=== PATIENT | male | born 1980 | race African-American/Black ===

== ENCOUNTER 2016-06-08 12:41 | Inpatient (IN) | payer MEDICAID ==
[~2016-06-08] VITALS: Ht 185.4 cm; Wt 97.0 kg
[~2016-06-08 12:41] MED LIST: ALPR1 PO; AMOX875T2 PO; BACL10TA; DILA2TAB2 PO; DOCU100T9 PO; FERR324T4 PO; HYDR10SO PO; LACT PO; NEUR800T PO; OLAN15TA PO; ROXI30TA14 PO; SOMA350T PO; [UNRECOGNIZED DRUG - CODE] PO
[2016-06-08 12:45] VITALS: BP 131/68; PULSE 72; RESP 18; TEMP 98.5; O2SAT 100
[2016-06-08] MEDS ORDERED: HYDR-3583 PO (13:36)
[2016-06-08] MEDS ORDERED: FERR1TAB36 PO (13:36)
[2016-06-08] MEDS ORDERED: XANA1TAB2 PO (13:36)
[2016-06-08] MEDS ORDERED: OLAN15TA PO (13:36)
[2016-06-08] MEDS ORDERED: SOMA350T PO (13:36)
[2016-06-08] MEDS ORDERED: NEUR800T PO (13:36)
[2016-06-08] MEDS ORDERED: AMOX875T2 PO (13:37)
[2016-06-08] MEDS ORDERED: DILA2TAB2 PO (13:37)
[2016-06-08] MEDS ORDERED: ROXI30TA14 PO (13:37)
[2016-06-08] MEDS ORDERED: PIPERACIL-TAZO 4.5 GM PREMIX 100 ML IV STA (13:41)
[2016-06-08] MEDS ORDERED: SODIUM CHLOR 0.9% 1000 ML INJ 1,000 ML IV ONE ×2 (13:45)
[2016-06-08] MEDS ORDERED: ONDANSETRON HCL 4 MG/2 ML VIAL IV ONE (13:45)
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
[2016-06-08 15:04] LABS: AUTOMATED NEUTROPHIL # 8.2 TH/MM3 (1.8-7.7); BASOPHIL % 0.3 % (0.0-2.0); EOSINOPHIL # 0.1 TH/MM3 (0-0.4); EOSINOPHIL % 1.1 % (0.0-4.0); HEMATOCRIT 37.3 % (39.0-51.0); LYMPH % 20.9 % (9.0-44.0); LYMPHOCYTE # 2.4 TH/MM3 (1.0-4.8); MEAN CELL VOLUME 79.3 FL (80.0-100.0); MEAN CORPUSCULAR HEMOGLOBIN 24.7 PG (27.0-34.0); MEAN CORPUSCULAR HGB CONC 31.2 % (32.0-36.0); MONO % 6.4 % (0.0-8.0); NEUT % 71.3 % (16.0-70.0); PLATELET COUNT 686 TH/MM3 (150-450); RED BLOOD COUNT 4.71 MIL/MM3 (4.50-5.90); RED CELL DISTRIBUTION WIDTH 18.4 % (11.6-17.2); WHITE BLOOD COUNT 11.6 TH/MM3 (4.0-11.0)
[2016-06-08 15:11] LABS: HEMO FLAGS AUTO DIFF
--- NOTE | 2016-06-08 15:13 | RADRPT ---
EXAM DATE/TIME: 06/08/2016 14:46 [facility] COMPARISON: CHEST SINGLE AP, October 23, 2015, 8:00. INDICATIONS : Fever, Chest pain MEDICAL HISTORY : None. SURGICAL HISTORY : None. ENCOUNTER: Initial ACUITY: 1 day PAIN SCORE: 4/10 LOCATION: chest FINDINGS: Portable AP view of the chest demonstrates a normal-sized cardiac silhouette. No effusion, consolidat ion, or pneumothorax is visualized. The bones and soft tissues demonstrate no acute abnormality. CONCLUSION: No acute cardiopulmonary abnormality is identified. Luis Felipe Guerra MD on June 08, 2016 at 15:09 Board Certified Radiologist. This report was verified electronically.
--- NOTE | 2016-06-08 15:17 | PD ---
Physical Exam Date Seen by Provider: Jun 08, 2016 Time Seen by Provider: 15:12 Narrative 35-year-old paraplegic male presents to the ED for evaluation of 9/10 aching abdominal pain, pain by nausea and vomiting. He shouldn't states that he noticed decreased colostomy output as well as dark urine over the last few days. He also complains of chronic sacral wounds. He states that he does not have home health or wound care. Followed by Dr. Parikh, last visit in April. GENERAL: Well-nourished paraplegic black male in no acute distress. SKIN: Warm and dry. There is a large, foul-smelling sacral decubitus ulcer HEAD: Normocephalic. EYES: No scleral icterus. No injection or drainage. NECK: Supple, trachea midline. No JVD or lymphadenopathy. CARDIOVASCULAR: Regular rate and rhythm without murmurs, gallops, or rubs. 2+ DP and radial pulses bilaterally. RESPIRATORY: Breath sounds clear and equal bilaterally. No accessory muscle use. GASTROINTESTINAL: Abdomen mildly distended. Tender to palpation in the epigastric area. There is a colostomy with brown stool in the bag. There is a urostomy in the suprapubic region with a small amount of leaking urine. MUSCULOSKELETAL: No cyanosis, or edema. Muscle wasting of the lower extremities. BACK: Nontender without obvious deformity. No CVA tenderness. Data Data Last Documented VS Vital Signs Date Time Temp Pulse Resp B/P Pulse Ox O2 Delivery O2 Flow Rate FiO2 06/08/16 17:47 63 12 118/57 97 Room Air 06/08/16 12:45 98.5 Orders Electrocardiogram (06/08/16 13:41) Complete Blood Count With Diff (06/08/16 13:41) Comprehensive Metabolic Panel (06/08/16 13:41) Lactic Acid Sepsis Protocol (06/08/16 13:41) Magnesium (Mg) (06/08/16 13:41) Urinalysis - C+S If Indicated (06/08/16 13:41) Blood Culture (06/08/16 13:41) Wound Culture And Gram Stain (06/08/16 13:41) Chest, Single Ap (06/08/16 13:41) Blood Glucose (06/08/16 13:41) Ecg Monitoring (06/08/16 13:41) Iv Access Insert/Monitor (06/08/16 13:41) Oximetry (06/08/16 13:41) Oxygen Administration (06/08/16 13:41) Ondansetron Inj (Zofran Inj) (06/08/16 13:45) Ct Abd/Pel W Iv Contrast(Rout) (06/08/16 13:41) Piperacil-Tazo 4.5 Gm Premix (Zosyn 4.5 (06/08/16 13:41) Sodium Chlor 0.9% 1000 Ml Inj (Ns 1000 M (06/08/16 13:45) Sodium Chlor 0.9% 1000 Ml Inj (Ns 1000 M (06/08/16 13:45) Urinary Catheter Insert/Apply (06/08/16 13:45) Consult Vascular Access Team (06/08/16 ) Vascular Poc Ultrasound (06/08/16 ) Hydromorphone Pf Inj (Dilaudid Pf Inj) (06/08/16 15:30) Consult Vascular Access Team (06/08/16 ) Vascular Poc Ultrasound (06/08/16 ) Westergren Sedimentation Rate (06/08/16 17:54) Urine Culture (06/08/16 17:45) Levofloxacin 750 Mg Premix Inj (Levaquin (06/08/16 19:00) Admit Order (Ed Use Only) (06/08/16 19:42) Labs Laboratory Tests Test 06/08/16 06/08/16 06/08/16 14:40 16:25 17:45 White Blood Count 11.6 TH/MM3 Red Blood Count 4.71 MIL/MM3 Hemoglobin 11.6 GM/DL Hematocrit 37.3 % Mean Corpuscular Volume 79.3 FL Mean Corpuscular Hemoglobin 24.7 PG Mean Corpuscular Hemoglobin 31.2 % Concent Red Cell Distribution Width 18.4 % Platelet Count 686 TH/MM3 Mean Platelet Volume 6.7 FL Neutrophils (%) (Auto) 71.3 % Lymphocytes (%) (Auto) 20.9 % Monocytes (%) (Auto) 6.4 % Eosinophils (%) (Auto) 1.1 % Basophils (%) (Auto) 0.3 % Neutrophils # (Auto) 8.2 TH/MM3 Lymphocytes # (Auto) 2.4 TH/MM3 Monocytes # (Auto) 0.7 TH/MM3 Eosinophils # (Auto) 0.1 TH/MM3 Basophils # (Auto) 0.0 TH/MM3 CBC Comment AUTO DIFF Differential Comment AUTO DIFF CONFIRMED Erythrocyte Sedimentation Rate 15 mm/hr Lactic Acid Level 1.2 mmol/L Sodium Level 141 MEQ/L Potassium Level 3.7 MEQ/L Chloride Level 103 MEQ/L Carbon Dioxide Level 32.2 MEQ/L Anion Gap 6 MEQ/L Blood Urea Nitrogen 9 MG/DL Creatinine 0.66 MG/DL Estimat Glomerular Filtration 165 ML/MIN Rate Random Glucose 84 MG/DL Calcium Level 8.8 MG/DL Magnesium Level 2.4 MG/DL Total Bilirubin 0.2 MG/DL Aspartate Amino Transf 20 U/L (AST/SGOT) Alanine Aminotransferase 14 U/L (ALT/SGPT) Alkaline Phosphatase 143 U/L Total Protein 9.1 GM/DL Albumin 3.1 GM/DL Urine Color YELLOW Urine Turbidity CLOUDY Urine pH 8.0 Urine Specific [place] 1.027 Urine Protein 100 mg/dL Urine Glucose (UA) NEG mg/dL Urine Ketones TRACE mg/dL Urine Occult Blood MOD Urine Nitrite NEG Urine Bilirubin NEG Urine Urobilinogen LESS THAN 2.0 MG/DL Urine Leukocyte Esterase LARGE Urine RBC /hpf Urine WBC /hpf Urine Squamous Epithelial 2 /hpf Cells Microscopic Urinalysis Comment CATH-CULTURE IND MDM Supervised Visit with EWA: No Interpretation(s) EKG rate 65, sinus rhythm. TN interval 172 ms. QRS 94 ms. QTc 42 ms. Normal axis. No ST elevations. Reviewed by Dr. Suazo. Differential Diagnosis Bowel obstruction versus paralytic ileus versus chronic sacral wounds versus sepsis versus UTI versus other Narrative Course I assumed care of this patient from PHILLIP John. Please see her note for full details of this patient's presentation. Briefly this is a 35-year-old paraplegic male who presents to the ED with complaint of 9/10 aching abdominal pain, nausea and vomiting and evaluation of chronic sacral wounds. Vitals reviewed and are within normal limits. Physical exam reveals a nontoxic- appearing black male in no acute distress. There is a foul odor emanating from his large sacral decubitus. Chest is CTAB. The abdomen is mildly distended and tender in the epigastric region. There is a colostomy and suprapubic catheter in place. Patient is followed by Dr. Small. Patient has been ordered Zosyn and 2 L of normal saline. Peterson catheter inserted. Blood cultures and wound cultures obtained. Vascular access team consulted for IV placement. When I assumed care of this patient the following labs were pending: EKG: Rate 65, sinus rhythm. No ischemic changes. CBC: WBC 11.6. Hgb 11.6. HCT 37.3 CMP: Unremarkable Lactic acid: 1.2 ESR: 15 Magnesium: 2.4 UA: Cloudy with large leukocyte esterase and innumerable WBC and RBCs. Chest x-ray: No acute cardiopulmonary abnormality visualized per radiology read. Glucose: 95 CT abdomen and pelvis: No acute findings. Patient was administered 1 mg IV Lortab. 1 L of fluids was infused before the patient's IV blew. Additionally, the lab states that they're unable to locate the chemistries tube. IV team was called to insert another line. CT was delayed secondary to missing chemistries. UA shows large leukocyte esterase, innumerable WBCs and RBCs. IV Levaquin ordered. Given this patient's large foul-smelling decubitus ulcer with purulent drainage will admit to the medicine service for wound care and further evaluation. Call placed to Dr. Burr who agrees to accept this patient for observation. Please see medicine notes for disposition. Diagnosis Primary Impression: Pressure ulcer stage IV Additional Impression: UTI (urinary tract infection) Qualified Code: T83.510A - Urinary tract infection associated with cystostomy catheter, initial encounter Belinda Argueta Jun 08, 2016 15:16
[2016-06-08] MEDS ORDERED: HYDROmorphone HCL PF 1 MG/ML VIAL IV PUSH ONE (15:30)
[2016-06-08 15:47] LABS: SCAN/DIFF AUTO DIFF CONFIRMED
[2016-06-08 17:47] VITALS: BP 118/57; PULSE 63; RESP 12; O2SAT 97
[2016-06-08 18:16] LABS: ALT (GPT) 14 U/L (12-78); AST (GOT) 20 U/L (15-37); BICARBONATE 32.2 MEQ/L (21.0-32.0); BLOOD UREA NITROGEN 9 MG/DL (7-18); GLOMERULAR FILTRATION RATE 165 ML/MIN (>89); MAGNESIUM 2.4 MG/DL (1.5-2.5)
[2016-06-08 18:24] LABS: BLOOD, URINE MOD (NEG); GLUCOSE,URINE NEG (NEG); KETONE, URINE TRACE mg/dL (NEG); NITRITE,URINE NEG (NEG); SQUAMOUS EPITHELIAL CELL URINE 2 /hpf (0-5); URINE COLOR YELLOW (YELLW/STRAW)
[2016-06-08 18:26] LABS: COMMENT (UR) CATH-CULTURE IND; CULTURE IF INDICATED CATH CULTURE IND
[2016-06-08] MEDS ORDERED: IOHEXOL 350 MG/ML 10 ML VIAL (for RAD DIAG) IV ONE (18:40)
[2016-06-08 18:49] LABS: ANION GAP 6 MEQ/L (5-15); CHLORIDE 103 MEQ/L (98-107); POTASSIUM 3.7 MEQ/L (3.5-5.1); SODIUM (NA) 141 MEQ/L (136-145)
[2016-06-08 18:56] LABS: ALKALINE PHOSPHATASE 143 U/L (45-117); TOTAL BILIRUBIN ADULT 0.2 MG/DL (0.2-1.0)
[2016-06-08] MEDS ORDERED: LEVOFLOXACIN 750 MG PREMIX INJ 150 ML IV ONE (19:00)
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
--- NOTE | 2016-06-08 19:56 | HHI.HP ---
HPI Service [facility] Primary Care Physician No Primary Care Physician Admission Diagnosis urinary tract infection, stage V sacral decubitus ulcer Diagnoses: (1) Sacral decubitus ulcer Diagnosis: Principal (2) UTI (urinary tract infection) Diagnosis: Principal (3) Paraplegia Diagnosis: Principal (4) Neurogenic bladder Diagnosis: Principal Travel History International Travel<30 Days: No Contact w/Intl Traveler <30 Da: No Traveled to Known Affected Are: No History of Present Illness This is a 35-year-old male with PMH of Anxiety, Paraplegia, Neurogenic Bladder s /p Suprapubic Cath, Chronic UTI and Chronic Sacral Decubitus Ulcer who came into the ER for evaluation of sacral wound. Recent admit 05/02-05/10 for Sacral Decubitus Wound, s/p eval by ID, treated w/ IV Zosyn and Gent Bladder Irrigation for E. Coli/Proteus UTI. States he was discharged w/ Home Health, however has been unable to set anything up. [facility] PCP trying to make arrangements as well, but has been unsuccessful. Referred to ER by PCP for foul -smelling drainage from Decubitus. On arrival, BP 118/57, HR 63, O2 sat 97% on RA, Afebrile. WBC 11.6. Chemistry at baseline. U/a positive for UTI. Suprapubic Cath changed in ER. S/p IV Levaquin in ER. On exam, pt w/ large, foul-smelling sacral decubitus ulcer w/ purulent drainage. Blood/Wound Cultures sent in ER. Review of Systems Other ROS: 14 point review of systems otherwise negative. Past Family Social History Past Medical History PMH: Anxiety, Paraplegia, Neurogenic Bladder s/p Suprapubic Cath, Chronic UTI and Chronic Sacral Decubitus Ulcer Past Surgical History PAST SURGICAL HISTORY: Colostomy, Suprapubic Catheter Allergies: Coded Allergies: Morphine (Verified Allergy, Severe, HIVES, 05/16/16) Vancomycin (Verified Adverse Reaction, Mild, HIVES, 05/16/16) ONLY WHEN INFUSED TOO QUICKLY *MDRO Multi-Drug Resistant Organism (Verified Adverse Reaction, Unknown, 05/16/16) MRSA 2005, 2007, 2007, 2009. MDR-Acinetobacter Baumannii skin wound 05/2015 MDR-Acinetobacter Baumannii scrotum wound 08/2015 Family History PAST FAMILY HISTORY: Reviewed. No h/o DM or CAD Social History PAST SOCIAL HISTORY: Occasional alcohol. Negative for tobacco. Smokes Marijuana. Physical Exam Vital Signs Vital Signs Date Time Temp Pulse Resp B/P Pulse Ox O2 Delivery O2 Flow Rate FiO2 06/08/16 17:47 63 12 118/57 97 Room Air 06/08/16 12:48 18 06/08/16 12:45 98.5 72 18 131/68 100 Physical Exam PE: GENERAL: Pleasant young black male in no acute distress. HEENT: PERRLA, EOMI. No scleral icterus or conjunctival pallor. No lid lag or facial droop. CARDIOVASCULAR: Regular rate and rhythm. No obvious murmurs to auscultation. No chest tenderness to palpation. RESPIRATORY: No obvious rhonchi or wheezing. Clear to auscultation. Breath sounds equal bilaterally. GASTROINTESTINAL: Abdomen soft, non-tender, nondistended. BS normal. Colostomy in place, pink, no signs of infection. Suprapubic cath in place, urine dark/ cloudy. MUSCULOSKELETAL: Extremities without clubbing, cyanosis, or edema. No obvious deformities. NEUROLOGICAL: Awake, alert and oriented x4. Paraplegia. No new focal neurologic deficits. Laboratory Laboratory Tests Test 06/08/16 06/08/16 06/08/16 14:40 16:25 17:45 White Blood Count 11.6 Red Blood Count 4.71 Hemoglobin 11.6 Hematocrit 37.3 Mean Corpuscular Volume 79.3 Mean Corpuscular Hemoglobin 24.7 Mean Corpuscular Hemoglobin 31.2 Concent Red Cell Distribution Width 18.4 Platelet Count 686 Mean Platelet Volume 6.7 Neutrophils (%) (Auto) 71.3 Lymphocytes (%) (Auto) 20.9 Monocytes (%) (Auto) 6.4 Eosinophils (%) (Auto) 1.1 Basophils (%) (Auto) 0.3 Neutrophils # (Auto) 8.2 Lymphocytes # (Auto) 2.4 Monocytes # (Auto) 0.7 Eosinophils # (Auto) 0.1 Basophils # (Auto) 0.0 CBC Comment AUTO DIFF Differential Comment AUTO DIFF CONFIRMED Erythrocyte Sedimentation Rate 15 Lactic Acid Level 1.2 Sodium Level 141 Potassium Level 3.7 Chloride Level 103 Carbon Dioxide Level 32.2 Anion Gap 6 Blood Urea Nitrogen 9 Creatinine 0.66 Estimat Glomerular Filtration 165 Rate Random Glucose 84 Calcium Level 8.8 Magnesium Level 2.4 Total Bilirubin 0.2 Aspartate Amino Transf 20 (AST/SGOT) Alanine Aminotransferase 14 (ALT/SGPT) Alkaline Phosphatase 143 Total Protein 9.1 Albumin 3.1 Urine Color YELLOW Urine Turbidity CLOUDY Urine pH 8.0 Urine Specific [place] 1.027 Urine Protein 100 Urine Glucose (UA) NEG Urine Ketones TRACE Urine Occult Blood MOD Urine Nitrite NEG Urine Bilirubin NEG Urine Urobilinogen LESS THAN 2.0 Urine Leukocyte Esterase LARGE Urine RBC Urine WBC Urine Squamous Epithelial 2 Cells Microscopic Urinalysis Comment CATH-CULTURE IND Date/Time Procedure Status Source Growth 06/08/16 17:45 Urine Culture Received Urine Catheterized Urine Pending 06/08/16 15:25 Gram Stain - Final Resulted Wound Other 06/08/16 15:25 Wound Culture Resulted Wound Other Pending 06/08/16 14:40 Aerobic Blood Culture Received Blood Peripheral Pending 06/08/16 14:40 Anaerobic Blood Culture Received Blood Peripheral Pending Result Diagram: 06/08/16 1440 06/08/16 1625 Assessment and Plan Problem List: (1) Decubitus ulcer ICD Code: L89.90 Status: Chronic (2) UTI (urinary tract infection) ICD Code: N39.0 Status: Acute (3) Neurogenic bladder ICD Code: N31.9 Status: Chronic (4) Paraplegia ICD Code: G82.20 Status: Chronic Assessment and Plan A/P: 1. Decubitus Ulcer: Chronic Sacral Decubitus Ulcer. Present at time of admission. Recent admit 05/02-05/10 for same, s/p eval by ID and IV Abx, arrangements made for Home Health at time of d/c however pt reports difficulty obtaining care. Now w/ foul-smelling discharge, referred to ER by PCP for eval. Afebrile. WBC 11.6. S/p Blood/Wound Cultures in ER. Will follow up cultures. S/p IV Levaquin for UTI. Allergy to Vanc, will give Clinda. ID eval as needed. 2. UTI: U/a w/ UTI. H/o chronic UTI due to neurogenic bladder w/ indwelling cath. S/p IV Levaquin in ER, will continue w/ IV Abx. Recent admit 05/02 w/ E. Coli and Proteus UTI s/p tx w/ Gent Bladder Irrigation. 3. Neurogenic Bladder: secondary to Paraplegia. Suprapubic Cath exchanged in ER upon arrival. 4. Paraplegia: At baseline. Resume home medications. 5. DVT Prophylaxis: SCD/Teds. 6. Social work for d/c planning as needed. 7. Case discussed w/ ER physician at length. Problem Qualifiers (1) UTI (urinary tract infection): Qualified Code: T83.510A - Urinary tract infection associated with cystostomy catheter, initial encounter Jahaira Burr MD Jun 08, 2016 19:56
[2016-06-08 20:00] VITALS: BP 116/62; PULSE 66; RESP 16; O2SAT 98
[2016-06-08] MEDS ORDERED: BISACODYL 10 MG SUPP PR PRN (20:00)
[2016-06-08] MEDS: SODIUM CHLOR 0.9% 1000 ML INJ 1,000 ML IV SCH (20:39)
[2016-06-08] MEDS: SODIUM CHLORIDE 0.9% FLUSH 5 ML FLUSH FLUSH SCH (20:40)
[2016-06-08] MEDS: HYDROmorphone HCL PF 1 MG/ML VIAL IV PRN (20:40)
[2016-06-08] MEDS: CLINDAMYCIN INJ 900 MG in SODIUM CHLORIDE 0.9% INJ 100 ML IV SCH (22:21)
[2016-06-09 00:29] VITALS: BP 120/62; PULSE 68; RESP 20; TEMP 98.2; O2SAT 96
[2016-06-09] MEDS: SODIUM CHLOR 0.9% 1000 ML INJ 1,000 ML IV SCH ×3 (04:07→20:21)
[2016-06-09] MEDS: CLINDAMYCIN INJ 900 MG in SODIUM CHLORIDE 0.9% INJ 100 ML IV SCH (04:07)
[2016-06-09] MEDS: HYDROmorphone HCL PF 1 MG/ML VIAL IV PRN (04:15)
[2016-06-09 04:20] VITALS: BP 102/50; PULSE 60; RESP 19; TEMP 97.9; O2SAT 99
[2016-06-09 07:15] VITALS: BP 113/59; PULSE 62; RESP 16; TEMP 97.7; O2SAT 100
--- NOTE | 2016-06-09 08:29 | HHI.PR ---
Subjective Remarks Follow-up for sacral wound. Today the patient complains of epigastric abdominal discomfort. He denies any nausea or vomiting currently and wants to eat. He states that he's been having decreased output from his ostomy for 3 or 4 days and believes he is constipated. His suprapubic catheter was exchanged in the ED last night, but the wrong size was used, and he is having some leaking. He states she's been having subjective chills. He complains of pain in his chronic wounds. He wants to go to a rehabilitation facility, states his PCP, Dr. Small, referred him to the hospital in hopes that he could be placed. Objective Vitals Vital Signs Date Time Temp Pulse Resp B/P Pulse Ox O2 Delivery O2 Flow Rate FiO2 06/09/16 07:15 97.7 62 16 113/59 100 06/09/16 04:20 97.9 60 19 102/50 99 06/09/16 00:29 98.2 68 20 120/62 96 06/08/16 20:00 66 16 116/62 98 Room Air 06/08/16 17:47 63 12 118/57 97 Room Air 06/08/16 12:48 18 06/08/16 12:45 98.5 72 18 131/68 100 Result Diagram: 06/08/16 1440 06/08/16 1625 Imaging Last Impressions Chest X-Ray 06/08/16 1341 Signed Impressions: Service Date/Time: May 14:46 - CONCLUSION: No acute cardiopulmonary abnormality is identified. Luis Felipe Guerra MD Abdomen/Pelvis CT 06/08/16 1341 Signed Impressions: Service Date/Time: May 18:40 - CONCLUSION: 1. The balloon portion of the suprapubic catheter is inside the prosthetic urethra. 2. Probable hepatic hemangioma. Ryanne Maya MD Objective Remarks GENERAL: Well-developed well-nourished. In no acute distress. SKIN: Warm and dry. Sacral wounds dressed. Superficial ulcerations on the heels. HEENT: Normocephalic. Pupils equal and round. Mucous membranes pink and moist. CARDIOVASCULAR: Regular rate and rhythm. No murmur appreciated. RESPIRATORY: No accessory muscle use. Clear to auscultation. Breath sounds equal bilaterally. GASTROINTESTINAL: Abdomen soft, mild epigastric TTP, nondistended. Bowel sounds x4. Ostomy in place. Suprapubic catheter in place. MUSCULOSKELETAL: No obvious deformities. No clubbing or cyanosis. No edema. NEUROLOGICAL: Awake and alert. Paraplegia. Normal speech. PSYCHIATRIC: Appropriate mood and affect; insight and judgment normal. A/P Problem List: (1) Decubitus ulcer ICD Code: L89.90 Status: Chronic (2) UTI (urinary tract infection) ICD Code: N39.0 Status: Acute (3) Neurogenic bladder ICD Code: N31.9 Status: Chronic (4) Paraplegia ICD Code: G82.20 Status: Chronic (5) Abdominal pain ICD Code: R10.9 Status: Acute Assessment and Plan 35-year-old male with PMH of Anxiety, Paraplegia, Neurogenic Bladder s/p Suprapubic Cath, Chronic UTI and Chronic Sacral Decubitus Ulcer who presented for evaluation of sacral wound Decubitus Ulcer: Chronic Sacral Decubitus Ulcer. Present at time of admission. Recent admit 05/02-05/10 for same, s/p eval by ID and IV Abx, arrangements made for Home Health at time of d/c however pt reports difficulty obtaining care. Now w/ foul-smelling discharge, referred to ER by PCP for eval. Afebrile. WBC 11.6. S/p Blood/Wound Cultures in ER. Will follow up cultures. Allergy to Vanc, on IV Clinda. ID consulted. Wound care nurse consulted. On oral Dilaudid at home for pain control, continue. Abnormal UA: UA with evidence of possible UTI. H/o chronic UTI due to neurogenic bladder w/ indwelling cath. Previous urine culture with Escherichia coli and Proteus, change IV Levaquin to ceftriaxone based on sensitivities. Follow-up urine culture. Abdominal pain: Abdominal x-ray with nonspecific, nonobstructive bowel gas pattern. Abdominal CT with no acute findings. Possibly secondary to constipation, start bowel regimen and attempt to minimize narcotics. Protonix. Neurogenic Bladder: Secondary to Paraplegia. Suprapubic Cath exchanged in ER upon arrival, however incorrect catheter size, place 22 [address]. Paraplegia: At baseline. Continue home medications. Trapeze setup. PT eval. DVT Prophylaxis: SCD/Teds. Discharge Planning Disposition pending clinical course. Case management consulted for assistance with discharge disposition. Attending Statement Attestation Patient seen and examined with CORINNA Haines. The exam, history, and the medical decision-making described in the above note were completed with the assistance of the dictating practitioner. I attest that I had a [id number] encounter with the patient on the same day, and personally performed all of the history, exam, or medical decision making. Discussed case with him thoroughly after seeing the patient, reviewed and agreed with the plan. Please see addendum in History, Physical examination and Plan. See below for any errata/ additional input: Denies any suprapubic pain, a febrile. Patient says that he is willing to go to SNF, he says that he takes care of the wound by himself with what he could. Afebrile. Not in distress Clear breath sounds Regular rate and rhythm Paraplegic One of the sacrum wound was opened, the worse one, good granulation tissue, non- foul-smelling, does not appear infected. Per infectious disease and wound care, noninfected. Right heel wound swab growing MRSA, per ID, does not look infected, no further treatment. This is a superficial swab. Urine culture growing gram-negative rods, follow-up urine culture and sensitivity, discharged once on oral antibiotics. We'll try to discharge to SNF versus home with home health care. Problem Qualifiers (1) UTI (urinary tract infection): Qualified Code: T83.510A - Urinary tract infection associated with cystostomy catheter, initial encounter (2) Abdominal pain: Qualified Code: R10.13 - Epigastric pain Cam Howard Jun 09, 2016 08:29 Wil Curtis MD Jun 09, 2016 15:41
[2016-06-09] MEDS: DOCUSATE SODIUM 100 MG CAP PO SCH ×2 (09:00→20:21)
[2016-06-09] MEDS: SENNOSIDES 8.6 MG TAB PO SCH (09:00)
[2016-06-09] MEDS ORDERED: cefTRIAXone INJ 1,000 MG in SODIUM CHLORIDE 0.9% INJ 100 ML IV SCH (09:00)
[2016-06-09] MEDS: SODIUM CHLORIDE 0.9% FLUSH 5 ML FLUSH FLUSH SCH ×2 (09:00→20:19)
[2016-06-09] MEDS: PANTOPRAZOLE SOD 40 MG DELAYED RELEASE TAB PO SCH (09:51)
[2016-06-09] MEDS: GABAPENTIN 400 MG CAP PO SCH ×3 (09:51→17:33)
[2016-06-09] MEDS: FERROUS SULFATE 325 MG (65 MG ELEMENTAL IRON) TAB PO SCH ×2 (09:51→17:33)
[2016-06-09] MEDS: HYDROmorphone HCL 4 MG TAB PO PRN (09:53)
[2016-06-09 12:21] VITALS: BP 123/56; PULSE 57; RESP 19; TEMP 96.6; O2SAT 100
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
[2016-06-09 16:26] VITALS: BP 116/60; PULSE 80; RESP 16; TEMP 98.6; O2SAT 100
[2016-06-09] MEDS: PIPERACIL-TAZO 3.375 GM PREMIX 50 ML IV SCH ×2 (17:33→22:50)
[2016-06-09] MEDS: SODIUM CHLORIDE 0.9% FLUSH 5 ML FLUSH FLUSH PRN (17:34)
--- NOTE | 2016-06-09 19:01 | EKG ---
Date Performed: 06/08/2016 Time Performed: 17:30:18 PTAGE: 35 years EKG: Sinus rhythm NONSPECIFIC ST & T-WAVE ABNORMALITY Compared to previous tracing, the T wave changes have improved s ignificantly and the heart rate is slower BORDERLINE ECG PREVIOUS TRACING : 01/11/2015 01.09 DOCTOR: Mayur Castillo Interpretating Date/Time 06/09/2016 19:00:07
[2016-06-09 19:58] VITALS: BP 119/73; PULSE 76; RESP 18; TEMP 97.6; O2SAT 97
[2016-06-09 21:39] LABS: AUTOMATED NEUTROPHIL # 3.8 TH/MM3 (1.8-7.7); BASOPHIL # 0.1 TH/MM3 (0-0.2); BASOPHIL % 1.6 % (0.0-2.0); EOSINOPHIL # 0.2 TH/MM3 (0-0.4); EOSINOPHIL % 3.1 % (0.0-4.0); HEMATOCRIT 28.9 % (39.0-51.0); HEMO FLAGS DIFF FINAL; LYMPH % 29.7 % (9.0-44.0); LYMPHOCYTE # 1.9 TH/MM3 (1.0-4.8); MEAN CELL VOLUME 79.3 FL (80.0-100.0); MEAN CORPUSCULAR HEMOGLOBIN 25.8 PG (27.0-34.0); MEAN CORPUSCULAR HGB CONC 32.5 % (32.0-36.0); NEUT % 58.6 % (16.0-70.0); PLATELET COUNT 487 TH/MM3 (150-450); RED BLOOD COUNT 3.65 MIL/MM3 (4.50-5.90); RED CELL DISTRIBUTION WIDTH 18.3 % (11.6-17.2); WHITE BLOOD COUNT 6.5 TH/MM3 (4.0-11.0)
[2016-06-09 21:54] LABS: ANION GAP 6 MEQ/L (5-15); AST (GOT) 6 U/L (15-37); BICARBONATE 29.9 MEQ/L (21.0-32.0); BLOOD UREA NITROGEN 7 MG/DL (7-18); CHLORIDE 107 MEQ/L (98-107); GLOMERULAR FILTRATION RATE 147 ML/MIN (>89); POTASSIUM 3.4 MEQ/L (3.5-5.1); SODIUM (NA) 143 MEQ/L (136-145)
[2016-06-09 21:59] LABS: ALKALINE PHOSPHATASE 113 U/L (45-117); ALT (GPT) 11 U/L (12-78); TOTAL BILIRUBIN ADULT 0.1 MG/DL (0.2-1.0)
[2016-06-10 01:04] VITALS: BP 102/50; PULSE 57; RESP 18; TEMP 98.1; O2SAT 97
[2016-06-10] MEDS: HYDROmorphone HCL 4 MG TAB PO PRN ×3 (02:30→20:04)
[2016-06-10] MEDS: PIPERACIL-TAZO 3.375 GM PREMIX 50 ML IV SCH ×2 (04:34→09:37)
[2016-06-10 05:09] VITALS: BP 103/59; PULSE 84; RESP 18; TEMP 97.8; O2SAT 98
[2016-06-10 07:47] VITALS: BP 110/56; PULSE 79; RESP 16; TEMP 98
[2016-06-10] MEDS: FERROUS SULFATE 325 MG (65 MG ELEMENTAL IRON) TAB PO SCH ×2 (09:37→17:12)
[2016-06-10] MEDS: SENNOSIDES 8.6 MG TAB PO SCH (09:37)
[2016-06-10] MEDS: SODIUM CHLORIDE 0.9% FLUSH 5 ML FLUSH FLUSH SCH ×2 (09:38→20:03)
[2016-06-10] MEDS: PANTOPRAZOLE SOD 40 MG DELAYED RELEASE TAB PO SCH (09:38)
[2016-06-10] MEDS: DOCUSATE SODIUM 100 MG CAP PO SCH (09:38)
[2016-06-10] MEDS: SODIUM HYPOCHLORITE 0.125% 500 ML BTL TOPICAL SCH (09:38)
[2016-06-10] MEDS: GABAPENTIN 400 MG CAP PO SCH ×3 (09:38→17:12)
[2016-06-10] MEDS: SODIUM CHLOR 0.9% 1000 ML INJ 1,000 ML IV SCH (10:22)
--- NOTE | 2016-06-10 10:58 | HHI.PR ---
Subjective Remarks Follow-up for UTI. Suprapubic catheter was changed yesterday to the correct size. The patient continues to complain of epigastric abdominal discomfort. Has been tolerating diet. He states he still having occasional chills, but they have improved. Afebrile. He requests IV Dilaudid, because "it works faster". States he takes oral Dilaudid 3 mg at home. He understands that the oral pain control last longer and he cannot have IV pain medicine at [facility]. Good output from ostomy. Objective Vitals Vital Signs Date Time Temp Pulse Resp B/P Pulse Ox O2 Delivery O2 Flow Rate FiO2 06/10/16 07:47 98.0 79 16 110/56 06/10/16 05:09 97.8 84 18 103/59 98 06/10/16 01:04 98.1 57 18 102/50 97 06/09/16 19:58 97.6 76 18 119/73 97 06/09/16 16:26 98.6 80 16 116/60 100 06/09/16 12:21 96.6 57 19 123/56 100 I/O 06/09/16 06/09/16 06/09/16 06/10/16 06/10/16 06/10/16 07:00 15:00 23:00 07:00 15:00 23:00 Intake Total 2430 ml Output Total 1650 ml Balance 780 ml Intake Oral 1180 ml IV Total 1250 ml Output Urine Total 1650 ml Result Diagram: 06/09/16210406/09/162104 Imaging Last Impressions Chest X-Ray 06/08/16 1341 Signed Impressions: Service Date/Time: May 14:46 - CONCLUSION: No acute cardiopulmonary abnormality is identified. Luis Felipe Guerra MD Abdomen/Pelvis CT 06/08/16 1341 Signed Impressions: Service Date/Time: May 18:40 - CONCLUSION: 1. The balloon portion of the suprapubic catheter is inside the prosthetic urethra. 2. Probable hepatic hemangioma. Ryanne Maya MD Objective Remarks GENERAL: Well-developed well-nourished. In no acute distress. SKIN: Warm and dry. Sacral wounds dressed. Superficial ulcerations on the heel. HEENT: Normocephalic. Pupils equal and round. Mucous membranes pink and moist. CARDIOVASCULAR: Regular rate and rhythm. No murmur appreciated. RESPIRATORY: No accessory muscle use. Clear to auscultation. Breath sounds equal bilaterally. GASTROINTESTINAL: Abdomen soft, mild epigastric TTP, nondistended. Bowel sounds x4. Ostomy in place. Suprapubic catheter in place. MUSCULOSKELETAL: No obvious deformities. No clubbing or cyanosis. No edema. NEUROLOGICAL: Awake and alert. Paraplegia. Normal speech. PSYCHIATRIC: Appropriate mood and affect; insight and judgment normal. A/P Problem List: (1) Decubitus ulcer ICD Code: L89.90 Status: Chronic (2) UTI (urinary tract infection) ICD Code: N39.0 Status: Acute (3) Neurogenic bladder ICD Code: N31.9 Status: Chronic (4) Paraplegia ICD Code: G82.20 Status: Chronic (5) Abdominal pain ICD Code: R10.9 Status: Acute Assessment and Plan 35-year-old male with PMH of Anxiety, Paraplegia, Neurogenic Bladder s/p Suprapubic Cath, Chronic UTI and Chronic Sacral Decubitus Ulcer who presented for evaluation of sacral wound Decubitus Ulcer: Chronic Sacral Decubitus Ulcer. Present at time of admission. Recent admit 05/02-05/10 for same, s/p eval by ID and IV Abx, arrangements made for Home Health at time of d/c however pt reports difficulty obtaining care. Patient referred to ED by PCP for assistance with chronic wound management. Afebrile with no leukocytosis. Discussed with ID and changeover operator, wounds appear to be healing from previous with no signs of acute infection. Cultures are likely colonization from superficial swab. No further antibiotics for sacral wounds per ID. Wound care nurse consulted, appreciate recommendations, orders for dressing changes placed. On oral Dilaudid at home for pain control (3 mg?), continue oral Dilaudid 4 mg as needed. UTI: UA with evidence of possible UTI. H/o chronic UTI due to neurogenic bladder w/ indwelling cath. Previous urine culture with Escherichia coli and Proteus. ID consulted, antibiotic changed to IV Zosyn. Urine culture with gram- negative rods, follow-up for final results. Abdominal pain: Abdominal x-ray with nonspecific, nonobstructive bowel gas pattern. Abdominal CT with no acute findings. On bowel regimen for possible constipation, improved, continue to minimize narcotics. Continue Protonix. Neurogenic Bladder: Secondary to Paraplegia. Suprapubic Cath exchanged on . Paraplegia: At baseline. Continue home medications. Trapeze setup. PT ashleyal, recommends SNF. Other chronic medical conditions are stable at this time and will continue home medications as indicated. DVT Prophylaxis: SCD/Teds. Discharge Planning Follow-up urine culture results and ID recommendations. Case management consulted for assistance with discharge disposition, [facility] vs SNF. Attending Statement Attestation Patient seen and examined with CORNINA Haines. The exam, history, and the medical decision-making described in the above note were completed with the assistance of the dictating practitioner. I attest that I had a [id number] encounter with the patient on the same day, and personally performed all of the history, exam, or medical decision making. Discussed case with him thoroughly after seeing the patient, reviewed and agreed with the plan. Please see addendum in History, Physical examination and Plan. See below for any errata/ additional input: Mild suprapubic tenderness, afebrile. No overnight events. 9 distress Regular rate and rhythm For respiratory effort otherwise clear Colostomy bag in place, suprapubic catheter in place, mild suprapubic tenderness Urine culture grew Escherichia coli sensitive to ceftriaxone, switch antibiotics to ceftriaxone, pending placement., Avoid IV narcotics. Problem Qualifiers (1) UTI (urinary tract infection): Qualified Code: T83.510A - Urinary tract infection associated with cystostomy catheter, initial encounter (2) Abdominal pain: Qualified Code: R10.13 - Epigastric pain Cam Howard Jun 10, 2016 10:57 Wil Curtis MD Jun 10, 2016 14:11
[2016-06-10] MEDS ORDERED: POTASSIUM CHLORIDE 20 MEQ CONTROLLED RELEASE TAB PO ONE (11:00)
[2016-06-10 11:38] VITALS: BP 115/57; PULSE 57; RESP 18; TEMP 97.5; O2SAT 98
[2016-06-10] MEDS: ALPRAZolam 1 MG TAB PO PRN (13:19)
[2016-06-10 15:46] VITALS: BP 93/54; PULSE 72; RESP 18; TEMP 98; O2SAT 98
[2016-06-10] MEDS: CARISOPRODOL 350 MG TAB PO PRN (16:07)
[2016-06-10] MEDS: cefTRIAXone INJ 1,000 MG in SODIUM CHLORIDE 0.9% INJ 100 ML IV SCH (16:07)
[2016-06-10 19:29] VITALS: BP 118/71; PULSE 68; RESP 20; TEMP 97.6; O2SAT 98
[2016-06-10] MEDS: ONDANSETRON HCL 4 MG/2 ML VIAL IVP PRN (20:16)
[2016-06-11 00:16] VITALS: BP 100/56; PULSE 59; RESP 20; TEMP 98.2; O2SAT 99
[2016-06-11 04:03] VITALS: BP 100/59; PULSE 65; RESP 20; TEMP 98; O2SAT 97
[2016-06-11] MEDS: HYDROmorphone HCL 4 MG TAB PO PRN ×4 (04:22→22:35)
[2016-06-11 08:20] VITALS: BP 118/63; PULSE 80; RESP 18; TEMP 97.3; O2SAT 97
[2016-06-11] MEDS: FERROUS SULFATE 325 MG (65 MG ELEMENTAL IRON) TAB PO SCH ×2 (08:57→17:00)
[2016-06-11] MEDS: PANTOPRAZOLE SOD 40 MG DELAYED RELEASE TAB PO SCH (08:57)
[2016-06-11] MEDS: SODIUM HYPOCHLORITE 0.125% 500 ML BTL TOPICAL SCH (08:57)
[2016-06-11] MEDS: SODIUM CHLORIDE 0.9% FLUSH 5 ML FLUSH FLUSH SCH ×2 (08:57→22:37)
[2016-06-11] MEDS: GABAPENTIN 400 MG CAP PO SCH ×3 (08:57→17:01)
--- NOTE | 2016-06-11 09:34 | HHI.PR ---
Subjective Remarks Follow up for UTI, sacral ulcer, abdominal pain. The patient denies any fevers or chills overnight. Still having epigastric pain, denies nausea/vomiting or diarrhea. He also has pain at his sacral wound. He is asking why we took away the IV pain med since it worked faster for him, explained oral pain medication is longer acting and would need to be on po at SNF. He was pleasant and voiced understanding. He otherwise denies any other medical complaints. He agrees to SNF. Objective Vitals Vital Signs Date Time Temp Pulse Resp B/P Pulse Ox O2 Delivery O2 Flow Rate FiO2 06/11/16 08:20 97.3 80 18 118/63 97 06/11/16 04:03 98.0 65 20 100/59 97 06/11/16 00:16 98.2 59 20 100/56 99 06/10/16 19:29 97.6 68 20 118/71 98 06/10/16 15:46 98.0 72 18 93/54 98 06/10/16 11:38 97.5 57 18 115/57 98 I/O 06/10/16 06/10/16 06/10/16 06/11/16 06/11/16 06/11/16 06:59 14:59 22:59 06:59 14:59 22:59 Intake Total 2430 ml 1950 ml 480 ml Output Total 1650 ml 2500 ml 4000 ml 800 ml Balance 780 ml -550 ml -3520 ml -800 ml Intake Oral 1180 ml 950 ml 480 ml IV Total 1250 ml 1000 ml Output Urine Total 1650 ml 2500 ml 3700 ml 800 ml Stool Total 300 ml Result Diagram: 06/09/16210406/09/162104 Imaging Last Impressions Chest X-Ray 06/08/161340 Signed Impressions: Service Date/Time: May 14:46 - CONCLUSION: No acute cardiopulmonary abnormality is identified. Luis Felipe Guerra MD Abdomen/Pelvis CT 06/08/16 1341 Signed Impressions: Service Date/Time: May 18:40 - CONCLUSION: 1. The balloon portion of the suprapubic catheter is inside the prosthetic urethra. 2. Probable hepatic hemangioma. Ryanne Maya MD Objective Remarks GENERAL: Well-nourished, well-developed middle aged male patient in [place]. SKIN: Warm and dry. No rash. Sacral wound with dressing in place, CDI. Also right heel ulcerations with dressing in place, CDI. HEAD: Normocephalic. Atraumatic. EYES: Pupils equal and round. No scleral icterus. No injection or drainage. ENT: No nasal bleeding or discharge. Mucous membranes pink and moist. NECK: Supple. Trachea midline. CARDIOVASCULAR: Regular rate and rhythm. S1, S2 noted. No murmur appreciated. RESPIRATORY: No accessory muscle use. Clear to auscultation. Breath sounds equal bilaterally. GASTROINTESTINAL: Abdomen soft, non-tender, nondistended. Normoactive bowel sounds x4. Ostomy and suprapubic catheter in place. MUSCULOSKELETAL: No obvious deformities. Extremities without clubbing, cyanosis , or edema. NEUROLOGICAL: Awake and alert. Paraplegia. Moves upper extremities spontaneously. Normal speech. PSYCHIATRIC: Appropriate mood and affect; insight and judgment normal. Medications and IVs Current Medications Medications (Trade) Dose Ordered Sig/Haja Route Start Time Stop Time Status Last Admin (NS Flush) 2 ml UNSCH PRN FLUSH 06/08/16 20:00 06/09/16 17:34 (NS Flush) 2 ml BID FLUSH 06/08/16 21:00 06/11/16 08:57 (Zofran Inj) 4 mg Q6H PRN IVP 06/08/16 20:00 06/10/16 20:16 (Dulcolax Supp) 10 mg DAILY PRN NM 06/08/16 20:00 (Tylenol) 650 mg Q6H PRN PO 06/08/16 20:00 (Xanax) 1 mg Q6H PRN PO 06/08/16 20:00 06/10/16 13:19 (Soma) 350 mg TID PRN PO 06/08/16 20:00 06/10/16 16:07 (Ferrous Sulfate) 325 mg BIDPC PO 06/09/16 09:00 06/11/16 08:57 (Neurontin) 800 mg TID PO 06/09/16 09:00 06/11/16 08:57 (Dilaudid) 2 mg Q6H PRN PO 06/08/16 20:00 (ZyPREXA) 15 mg HS PO 06/08/16 21:00 06/10/16 20:03 (Dilaudid) 4 mg Q4H PRN PO 06/09/16 08:30 06/11/16 04:22 (Protonix) 40 mg DAILY PO 06/09/16 09:00 06/11/16 08:57 Sodium Hypochlorite 500 ml 500 ml DAILY TOPICAL 06/10/16 09:00 06/11/16 08:57 (Rocephin Inj/NS Inj) 100 ml @ 200 mls/hr Q24H IV 06/10/16 16:00 06/10/16 16:07 Urinary Catheter: Yes Assessment to: Continue A/P Problem List: (1) Decubitus ulcer ICD Code: L89.90 Status: Chronic (2) UTI (urinary tract infection) ICD Code: N39.0 Status: Acute (3) Neurogenic bladder ICD Code: N31.9 Status: Chronic (4) Paraplegia ICD Code: G82.20 Status: Chronic (5) Abdominal pain ICD Code: R10.9 Status: Acute Assessment and Plan 35-year-old male with PMH of Anxiety, Paraplegia, Neurogenic Bladder s/p Suprapubic Cath, Chronic UTI and Chronic Sacral Decubitus Ulcer who presented for evaluation of sacral wound Decubitus Ulcer: Chronic Sacral Decubitus Ulcer. Present at time of admission. Recent admit 05/02-05/10 for same, s/p eval by ID and IV Abx, arrangements made for Home Health at time of d/c however pt reports difficulty obtaining care, currently homeless. Patient referred to ED by PCP for assistance with chronic wound management. Afebrile, no leukocytosis. Discussed with ID and block sorter, wounds appear to be healing from previous with no signs of acute infection. Cultures likely colonized from superficial swab. No further antibiotics for sacral wounds per ID. Wound care nurse consulted, appreciate recommendations, orders for dressing changes placed. On oral Dilaudid at home for pain control (3 mg?), continue oral Dilaudid 4 mg as needed. UTI: UA with evidence of possible UTI. H/o chronic UTI due to neurogenic bladder w/ indwelling cath. Previous urine culture with Escherichia coli and Proteus. Suprapubic cath changed 06/09. ID consulted, appreciated recommendations. Urine culture with E.coli, sensitive to IV rocephin therefore changed abx from IV Zosyn to IV Rocephin. Abdominal pain: Abdominal x-ray with nonspecific, nonobstructive bowel gas pattern. Abdominal CT with no acute findings. On bowel regimen for possible constipation, improved, continue to minimize narcotics. Continue Protonix. Neurogenic Bladder: Secondary to Paraplegia. Suprapubic Cath exchanged on . Paraplegia: At baseline. Continue home medications. Trapeze setup. PT eval, recommends SNF, case management assisting. Other chronic medical conditions are stable at this time and will continue home medications as indicated. DVT Prophylaxis: SCD/Teds. Discharge Planning Discharge pending SNF placement. Discussed with Dr. Curtis. Attending Statement Attestation Patient seen and examined with CORINNA Lackey. The exam, history, and the medical decision-making described in the above note were completed with the assistance of the dictating practitioner. I attest that I had a [id number] encounter with the patient on the same day, and personally performed all of the history, exam, or medical decision making. Discussed case with her thoroughly after seeing the patient, reviewed and agreed with the plan. Please see addendum in History, Physical examination. See below for any errata/additional input: No fever, pain is manageable with oral narcotics. No overnight events. Vital signs reviewed Not in distress Regular rate and rhythm Clear breath sounds Neurologic deficits stable Awaiting placement, continue pain control. Continue ceftriaxone, switch to Augmentin on discharge. Problem Qualifiers (1) UTI (urinary tract infection): Qualified Code: T83.510A - Urinary tract infection associated with cystostomy catheter, initial encounter (2) Abdominal pain: Qualified Code: R10.13 - Epigastric pain Abby Lima PA-C Jun 11, 2016 09:34 Wil Curtis MD Jun 11, 2016 11:32
[2016-06-11 11:30] VITALS: BP 130/69; PULSE 78; RESP 20; TEMP 98.1; O2SAT 99
[2016-06-11] MEDS: ALPRAZolam 1 MG TAB PO PRN (14:12)
[2016-06-11] MEDS: CARISOPRODOL 350 MG TAB PO PRN (14:12)
[2016-06-11 16:00] VITALS: BP 121/58; PULSE 76; RESP 20; TEMP 97.7; O2SAT 98
[2016-06-11] MEDS: cefTRIAXone INJ 1,000 MG in SODIUM CHLORIDE 0.9% INJ 100 ML IV SCH (17:46)
[2016-06-11 20:00] VITALS: BP 128/60; PULSE 78; RESP 18; TEMP 97.8; O2SAT 98
[2016-06-12] VITALS: BP 108/55; PULSE 56; RESP 16; TEMP 98.1; O2SAT 97
[2016-06-12 04:00] VITALS: BP 109/57; PULSE 55; RESP 16; TEMP 97.3; O2SAT 96
[2016-06-12 08:00] VITALS: BP 125/62; PULSE 56; RESP 20; TEMP 97.6; O2SAT 99
[2016-06-12] MEDS: GABAPENTIN 400 MG CAP PO SCH ×3 (09:00→16:35)
[2016-06-12] MEDS: SODIUM HYPOCHLORITE 0.125% 500 ML BTL TOPICAL SCH (09:00)
[2016-06-12] MEDS: FERROUS SULFATE 325 MG (65 MG ELEMENTAL IRON) TAB PO SCH ×2 (09:00→16:34)
[2016-06-12] MEDS: SODIUM CHLORIDE 0.9% FLUSH 5 ML FLUSH FLUSH SCH ×2 (09:00→22:56)
[2016-06-12] MEDS: PANTOPRAZOLE SOD 40 MG DELAYED RELEASE TAB PO SCH (09:00)
[2016-06-12 12:00] VITALS: BP 119/59; PULSE 70; RESP 20; TEMP 98.3; O2SAT 97
[2016-06-12] MEDS: HYDROmorphone HCL 2 MG TAB PO PRN (12:38)
--- NOTE | 2016-06-12 15:07 | HHI.PR ---
Subjective Remarks f/u wound, uti no fever or chills, no diarrhea, agreed to [facility] SNF placement. Objective Vitals Vital Signs Date Time Temp Pulse Resp B/P Pulse Ox O2 Delivery O2 Flow Rate FiO2 06/12/16 08:00 97.6 56 20 125/62 99 06/12/16 04:00 97.3 55 16 109/57 96 06/12/16 00:00 98.1 56 16 108/55 97 06/11/16 20:00 97.8 78 18 128/60 98 06/11/16 16:00 97.7 76 20 121/58 98 I/O 06/11/16 06/11/16 06/11/16 06/12/16 06/12/16 06/12/16 06:59 14:59 22:59 06:59 14:59 22:59 Intake Total 480 ml 0 ml 240 ml 240 ml Output Total 4000 ml 800 ml 3400 ml 450 ml Balance -3520 ml -800 ml -3160 ml -210 ml Intake Oral 480 ml 240 ml 240 ml IV Total 0 ml Output Urine Total 3700 ml 800 ml 3400 ml 450 ml Stool Total 300 ml 0 ml # Bowel Movements 0 Result Diagram: 06/09/16210406/09/162104 Objective Remarks GENERAL: Well-nourished, well-developed middle aged male patient in [facility]. SKIN: Warm and dry. No rash. Sacral wound with dressing in place, CDI. Also right heel ulcerations with dressing in place, CDI. ENT: No nasal bleeding or discharge. Mucous membranes pink and moist. NECK: Supple. Trachea midline. CARDIOVASCULAR: Regular rate and rhythm. S1, S2 noted. No murmur appreciated. RESPIRATORY: No accessory muscle use. Clear to auscultation. Breath sounds equal bilaterally. GASTROINTESTINAL: Abdomen soft, non-tender, nondistended. Normoactive bowel sounds x4. Ostomy and suprapubic catheter in place. MUSCULOSKELETAL: No obvious deformities. Extremities without clubbing, cyanosis , or edema. NEUROLOGICAL: Awake and alert. Paraplegia. Moves upper extremities spontaneously. Normal speech. A/P Problem List: (1) Decubitus ulcer ICD Code: L89.90 Status: Chronic (2) UTI (urinary tract infection) ICD Code: N39.0 Status: Acute (3) Neurogenic bladder ICD Code: N31.9 Status: Chronic (4) Paraplegia ICD Code: G82.20 Status: Chronic (5) Abdominal pain ICD Code: R10.9 Status: Acute Assessment and Plan 35-year-old male with PMH of Anxiety, Paraplegia, Neurogenic Bladder s/p Suprapubic Cath, Chronic UTI and Chronic Sacral Decubitus Ulcer who presented for evaluation of sacral wound Decubitus Ulcer: Chronic Sacral Decubitus Ulcer. Present at time of admission. Recent admit 05/02-05/10 for same, s/p eval by ID and IV Abx, arrangements made for Home Health at time of d/c however pt reports difficulty obtaining care, currently homeless. Patient referred to ED by PCP for assistance with chronic wound management. Afebrile, no leukocytosis. Discussed with ID and smokehouse worker, wounds appear to be healing from previous with no signs of acute infection. Cultures likely colonized from superficial swab. No further antibiotics for sacral wounds per ID. Wound care nurse consulted, appreciate recommendations, orders for dressing changes placed. On oral Dilaudid at home for pain control (3 mg?), continue oral Dilaudid 4 mg as needed. UTI: UA with evidence of possible UTI. H/o chronic UTI due to neurogenic bladder w/ indwelling cath. Previous urine culture with Escherichia coli and Proteus. Suprapubic cath changed 06/09. ID consulted, appreciated recommendations. Urine culture with E.coli, sensitive to IV rocephin, switch to Augmentin today. Abdominal pain: Abdominal x-ray with nonspecific, nonobstructive bowel gas pattern. Abdominal CT with no acute findings. On bowel regimen for possible constipation, improved, continue to minimize narcotics. Continue Protonix. Neurogenic Bladder: Secondary to Paraplegia. Suprapubic Cath exchanged on . Paraplegia: At baseline. Continue home medications. Trapeze setup. PT eval, recommends SNF, case management assisting. Discussed with case management today , will try to get patient to rehabilitation. Long-term Other chronic medical conditions are stable at this time and will continue home medications as indicated. DVT Prophylaxis: SCD/Teds. Discharge Planning Patient does not have a place, will try to get to rehabilitation long-term, discussed with case management. Problem Qualifiers (1) UTI (urinary tract infection): Qualified Code: T83.510A - Urinary tract infection associated with cystostomy catheter, initial encounter (2) Abdominal pain: Qualified Code: R10.13 - Epigastric pain Wil Curtis MD Jun 12, 2016 15:07
[2016-06-12 16:00] VITALS: BP 116/59; PULSE 79; RESP 20; TEMP 97.5; O2SAT 97
--- NOTE | 2016-06-12 17:53 | HHI.IDPN ---
Subjective Subjective Remarks feels better afebrile toleates abx OK grew MRSA from his wounds reports vancomycin alelrgy in the form of hives Antibiotics am/clav Allergies: Coded Allergies: Morphine (Verified Allergy, Severe, HIVES, 05/16/16) Vancomycin (Verified Adverse Reaction, Mild, HIVES, 05/16/16) ONLY WHEN INFUSED TOO QUICKLY *MDRO Multi-Drug Resistant Organism (Verified Adverse Reaction, Unknown, 06/12/16) MRSA 2005, 2006, 2007, 2009. 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 Vital Signs Date Time Temp Pulse Resp B/P Pulse Ox O2 Delivery O2 Flow Rate FiO2 06/12/16 12:00 98.3 70 20 119/59 97 06/12/16 08:00 97.6 56 20 125/62 99 06/12/16 04:00 97.3 55 16 109/57 96 06/12/16 00:00 98.1 56 16 108/55 97 06/11/16 20:00 97.8 78 18 128/60 98 06/11/16 06/11/16 06/12/16 15:00 23:00 07:00 Intake Total 0 ml 240 ml 240 ml Output Total 800 ml 3400 ml 450 ml Balance -800 ml -3160 ml -210 ml Intake Oral 240 ml 240 ml IV Total 0 ml Output Urine Total 800 ml 3400 ml 450 ml Stool Total 0 ml # Bowel Movements 0 Imaging Last Impressions Chest X-Ray 06/08/16 1341 Signed Impressions: Service Date/Time: May 14:46 - CONCLUSION: No acute cardiopulmonary abnormality is identified. Luis Felipe Guerra MD Abdomen/Pelvis CT 06/08/16 1341 Signed Impressions: Service Date/Time: May 18:40 - CONCLUSION: 1. The balloon portion of the suprapubic catheter is inside the prosthetic urethra. 2. Probable hepatic hemangioma. Ryanne Maya MD Physical Exam GENERAL: Chronically ill-appearing male who is bedbound, in no apparent distress. SKIN: No generalized rashes. CARDIOVASCULAR: Heart sounds audible. No murmur appreciated. RESPIRATORY: Clear to auscultation. Breath sounds equal bilaterally. GASTROINTESTINAL: Abdomen soft, non-tender, nondistended. No hepatosplenomegaly Colostomy in place with mod amount of stool : no palpable bladder distention Suprapubic catheter site with no evidence of infection on the insertion site, urine light yellow and cloudy MUSCULOSKELETAL: Extremities without clubbing, cyanosis, or edema. Bandages R foot, intact Severe muscle bulk loss on b/l LE NEUROLOGICAL: Awake and alert. Paraplegic. Psych: calm, cooperative Assessment & Plan Remarks paraplegia, traumatic SCI neurogenic bladder chronic SP cath Recurrent complicated UTI - E.coli chronic sacral and buttocks decubitus, appear clean this time - no e/o infx on exam, but grew MRSA ? colonized R to clindamycin Fever -, leukocytosis - 2/2 UTI: resolved -cont 2 weeks of abx for his recurrent infx - consult plastic surgeon for the wounds Rita Vickers MD Jun 12, 2016 17:53
[2016-06-12 20:00] VITALS: BP 115/57; PULSE 77; RESP 18; TEMP 98.5; O2SAT 98
[2016-06-12] MEDS: AMOXICILLIN/CLAVULANATE K 875 MG TAB PO SCH (22:55)
[2016-06-12] MEDS: HYDROmorphone HCL 4 MG TAB PO PRN (22:56)
[2016-06-13 00:22] VITALS: BP 118/61; PULSE 75; RESP 20; TEMP 98.2; O2SAT 98
[2016-06-13 04:00] VITALS: BP 125/56; PULSE 82; RESP 18; TEMP 97.6; O2SAT 100
[2016-06-13] MEDS: HYDROmorphone HCL 4 MG TAB PO PRN ×2 (04:50→08:53)
[2016-06-13 08:00] VITALS: BP 111/59; PULSE 69; RESP 20; TEMP 98.1; O2SAT 98
[2016-06-13] MEDS: FERROUS SULFATE 325 MG (65 MG ELEMENTAL IRON) TAB PO SCH (08:38)
[2016-06-13] MEDS: GABAPENTIN 400 MG CAP PO SCH ×2 (08:38→13:00)
[2016-06-13] MEDS: PANTOPRAZOLE SOD 40 MG DELAYED RELEASE TAB PO SCH (08:38)
[2016-06-13] MEDS: AMOXICILLIN/CLAVULANATE K 875 MG TAB PO SCH ×2 (08:38→22:15)
[2016-06-13] MEDS: SODIUM CHLORIDE 0.9% FLUSH 5 ML FLUSH FLUSH SCH ×2 (08:38→22:15)
--- NOTE | 2016-06-13 10:52 | HHI.PR ---
Subjective Remarks Follow-up for sacral wound Sacral wound unchanged, no overnight events, no fever. Still complaining of moderate pain, partially relieved by narcotics but does not want to be switched to morphine or Percocet. Objective Vitals Vital Signs Date Time Temp Pulse Resp B/P Pulse Ox O2 Delivery O2 Flow Rate FiO2 06/13/16 08:00 98.1 69 20 111/59 98 06/13/16 04:00 97.6 82 18 125/56 100 06/13/16 00:22 98.2 75 20 118/61 98 06/12/16 20:00 98.5 77 18 115/57 98 06/12/16 16:00 97.5 79 20 116/59 97 06/12/16 12:00 98.3 70 20 119/59 97 I/O 06/12/16 06/12/16 06/12/16 06/13/16 06/13/16 06/13/16 06:59 14:59 22:59 06:59 14:59 22:59 Intake Total 240 ml 720 ml 480 ml 480 ml Output Total 450 ml 1650 ml 650 ml 550 ml Balance -210 ml -930 ml -170 ml -70 ml Intake Oral 240 ml 720 ml 480 ml 480 ml Output Urine Total 450 ml 1650 ml 600 ml 500 ml Stool Total 50 ml 50 ml # Bowel Movements 0 1 Result Diagram: 06/09/16210406/09/162104 Objective Remarks GENERAL: Well-nourished, well-developed middle aged male patient in [facility]. SKIN: Warm and dry. No rash. Sacral wound with dressing in place,Also right heel ulcerations with dressing in place, NECK: Supple. Trachea midline. CARDIOVASCULAR: Regular rate and rhythm. S1, S2 noted. No murmur appreciated. RESPIRATORY: No accessory muscle use. Clear to auscultation. Breath sounds equal bilaterally. GASTROINTESTINAL: Abdomen soft, non-tender, nondistended. Normoactive bowel sounds x4. Ostomy and suprapubic catheter in place. MUSCULOSKELETAL: No obvious deformities. Extremities without clubbing, cyanosis , or edema. NEUROLOGICAL: Awake and alert. Paraplegia. Moves upper extremities spontaneously. Normal speech. A/P Problem List: (1) Decubitus ulcer ICD Code: L89.90 Status: Chronic (2) UTI (urinary tract infection) ICD Code: N39.0 Status: Acute (3) Neurogenic bladder ICD Code: N31.9 Status: Chronic (4) Paraplegia ICD Code: G82.20 Status: Chronic (5) Abdominal pain ICD Code: R10.9 Status: Acute Assessment and Plan 35-year-old male with PMH of Anxiety, Paraplegia, Neurogenic Bladder s/p Suprapubic Cath, Chronic UTI and Chronic Sacral Decubitus Ulcer who presented for evaluation of sacral wound Decubitus Ulcer: Chronic Sacral Decubitus Ulcer. Present at time of admission. Recent admit 05/02-05/10 for same, s/p eval by ID and IV Abx, arrangements made for Home Health at time of d/c however pt reports difficulty obtaining care, currently homeless. Patient referred to ED by PCP for assistance with chronic wound management. Afebrile, no leukocytosis. Discussed with ID and cath lab nurse, wounds appear to be healing from previous with no signs of acute infection. Wound culture grew MRSA, likely colonized from superficial swab. No further antibiotics for sacral wounds per ID. Wound care nurse consulted, appreciate recommendations, orders for dressing changes placed. On oral Dilaudid at home for pain control (3 mg?), continue oral Dilaudid 4 mg as needed. Consult plastic surgery. UTI: UA with evidence of possible UTI. H/o chronic UTI due to neurogenic bladder w/ indwelling cath. Previous urine culture with Escherichia coli and Proteus. Suprapubic cath changed 06/09. ID consulted, appreciated recommendations. Urine culture with E.coli, sensitive to IV rocephin, continue Augmentin, finish 14 days of treatment.. Abdominal pain: Abdominal x-ray with nonspecific, nonobstructive bowel gas pattern. Abdominal CT with no acute findings. On bowel regimen for possible constipation, improved, continue to minimize narcotics. Continue Protonix. Neurogenic Bladder: Secondary to Paraplegia. Suprapubic Cath exchanged on . Paraplegia: At baseline. Continue home medications. Trapeze setup. PT eval, recommends SNF, case management assisting. Discussed with case management today , will try to get patient to rehabilitation. Long-term Other chronic medical conditions are stable at this time and will continue home medications as indicated. DVT Prophylaxis: SCD/Teds. Discussed with case management, discharged to long-term facility when arrangements made. Discharge Planning discharged to long-term facility when arrangements made. Problem Qualifiers (1) UTI (urinary tract infection): Qualified Code: T83.510A - Urinary tract infection associated with cystostomy catheter, initial encounter (2) Abdominal pain: Qualified Code: R10.13 - Epigastric pain Wil Curtis MD Jun 13, 2016 10:52
[2016-06-13] MEDS ORDERED: DAKI0.12 TOPICAL (10:55)
[2016-06-13] MEDS ORDERED: XANA1TAB2 PO (10:55)
[2016-06-13] MEDS ORDERED: DILA4TAB2 PO (10:55)
[2016-06-13] MEDS ORDERED: SOMA350T PO (10:55)
[2016-06-13 12:00] VITALS: BP 102/52; PULSE 88; RESP 20; TEMP 98.2; O2SAT 97
[2016-06-13] MEDS: HYDROmorphone HCL 2 MG TAB PO PRN (14:07)
--- NOTE | 2016-06-13 15:43 | HHI.IDPN ---
Subjective Subjective Remarks feels OK afebrile toleates abx OK grew MRSA from his wounds reports vancomycin alelrgy in the form of hives Antibiotics am/clav Allergies: Coded Allergies: Morphine (Verified Allergy, Severe, HIVES, 05/16/16) Vancomycin (Verified Adverse Reaction, Mild, HIVES, 05/16/16) ONLY WHEN INFUSED TOO QUICKLY *MDRO Multi-Drug Resistant Organism (Verified Adverse Reaction, Unknown, 06/12/16) MRSA 2005, 2006, 2007, 2009. 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 Vital Signs Date Time Temp Pulse Resp B/P Pulse Ox O2 Delivery O2 Flow Rate FiO2 06/13/16 12:00 98.2 88 20 102/52 97 06/13/16 11:00 16 06/13/16 08:00 98.1 69 20 111/59 98 06/13/16 04:00 97.6 82 18 125/56 100 06/13/16 00:22 98.2 75 20 118/61 98 06/12/16 20:00 98.5 77 18 115/57 98 06/12/16 16:00 97.5 79 20 116/59 97 06/12/16 06/12/16 06/13/16 15:00 23:00 07:00 Intake Total 720 ml 480 ml 480 ml Output Total 1650 ml 650 ml 550 ml Balance -930 ml -170 ml -70 ml Intake Oral 720 ml 480 ml 480 ml Output Urine Total 1650 ml 600 ml 500 ml Stool Total 50 ml 50 ml # Bowel Movements 1 Imaging Last Impressions Chest X-Ray 06/08/16 1341 Signed Impressions: Service Date/Time: May 14:46 - CONCLUSION: No acute cardiopulmonary abnormality is identified. Luis Felipe Guerra MD Abdomen/Pelvis CT 06/08/16 1341 Signed Impressions: Service Date/Time: May 18:40 - CONCLUSION: 1. The balloon portion of the suprapubic catheter is inside the prosthetic urethra. 2. Probable hepatic hemangioma. Ryanne Maya MD Physical Exam GENERAL: Chronically ill-appearing male who is bedbound, in no apparent distress. SKIN: No generalized rashes. His wounds were examined with RN R hip wound - practically healed L hip - stage III with undemining with healthy blleding tissue in the wound bed sacral wound - tiny 1 cm stage III, no purulence perineal/scrotum wound with good healthy granulation tissue RESPIRATORY:breathing unlaboured : Suprapubic catheterin place , urine light yellow and cloudy MUSCULOSKELETAL: Extremities without clubbing, cyanosis, or edema. Bandages R foot, intact Severe muscle bulk loss on b/l LE NEUROLOGICAL: Awake and alert. Paraplegic. Psych: calm, cooperative Assessment & Plan Remarks paraplegia, traumatic SCI neurogenic bladder chronic SP cath Recurrent complicated UTI - E.coli chronic sacral and buttocks decubitus, appear clean this time - no e/o infx on exam, colonized with MRSA R to clindamycin Fever -, leukocytosis - 2/2 UTI: resolved -cont 2 weeks of abx for his recurrent infx - appreciate plastic surgeon input - mnitor wounds Rita Vickers MD Jun 13, 2016 15:43
[2016-06-13 16:00] VITALS: BP 124/59; PULSE 91; RESP 20; TEMP 98.3; O2SAT 97
[2016-06-13 20:00] VITALS: BP 122/59; PULSE 81; RESP 18; TEMP 98.6; O2SAT 97
[2016-06-14] VITALS: BP 123/63; PULSE 89; RESP 18; TEMP 98.9; O2SAT 100
[2016-06-14] MEDS: HYDROmorphone HCL 4 MG TAB PO PRN ×5 (01:31→21:33)
[2016-06-14] MEDS: CARISOPRODOL 350 MG TAB PO PRN (03:23)
[2016-06-14 04:00] VITALS: BP 115/60; PULSE 77; RESP 18; TEMP 97.9; O2SAT 97
[2016-06-14 08:00] VITALS: BP 125/62; PULSE 78; RESP 18; TEMP 98.6; O2SAT 97
[2016-06-14] MEDS: AMOXICILLIN/CLAVULANATE K 875 MG TAB PO SCH ×2 (08:19→21:33)
[2016-06-14] MEDS: GABAPENTIN 400 MG CAP PO SCH ×3 (08:21→16:36)
[2016-06-14] MEDS: FERROUS SULFATE 325 MG (65 MG ELEMENTAL IRON) TAB PO SCH ×2 (08:22→16:36)
[2016-06-14] MEDS: PANTOPRAZOLE SOD 40 MG DELAYED RELEASE TAB PO SCH (08:22)
[2016-06-14] MEDS: ONDANSETRON HCL 4 MG/2 ML VIAL IVP PRN ×2 (08:33→18:30)
[2016-06-14] MEDS: SODIUM CHLORIDE 0.9% FLUSH 5 ML FLUSH FLUSH SCH ×2 (08:33→21:35)
--- NOTE | 2016-06-14 12:29 | HHI.PR ---
Subjective Remarks Follow-up for sacral wound Sacral ulcer is getting better, afebrile, no chest pain or shortness of breath, sometimes loose stools. Objective Vitals Vital Signs Date Time Temp Pulse Resp B/P Pulse Ox O2 Delivery O2 Flow Rate FiO2 06/14/16 08:00 98.6 78 18 125/62 97 06/14/16 04:00 97.9 77 18 115/60 97 06/14/16 00:00 98.9 89 18 123/63 100 06/13/16 20:00 98.6 81 18 122/59 97 06/13/16 16:00 98.3 91 20 124/59 97 I/O 06/13/16 06/13/16 06/13/16 06/14/16 06/14/16 06/14/16 06:59 14:59 22:59 06:59 14:59 22:59 Intake Total 480 ml 840 ml 480 ml 420 ml Output Total 550 ml 800 ml 275 ml 700 ml Balance -70 ml 40 ml 205 ml -280 ml Intake Oral 480 ml 840 ml 480 ml 420 ml Output Urine Total 500 ml 800 ml 275 ml 700 ml Stool Total 50 ml Objective Remarks GENERAL: Well-nourished, well-developed middle aged male patient in [facility]. SKIN: Warm and dry. No rash. Sacral wound seen 06/14/16 because wound is healing well, the small ulcers are re-epithelializing. No discharge, does not seem infected. CARDIOVASCULAR: Regular rate and rhythm. S1, S2 noted. No murmur appreciated. RESPIRATORY: No accessory muscle use. Clear to auscultation. Breath sounds equal bilaterally. GASTROINTESTINAL: Abdomen soft, non-tender, nondistended. Normoactive bowel sounds x4. Ostomy and suprapubic catheter in place. MUSCULOSKELETAL: No obvious deformities. Extremities without clubbing, cyanosis , or edema. NEUROLOGICAL: Awake and alert. Paraplegic. Moves upper extremities spontaneously. Normal speech. A/P Problem List: (1) Decubitus ulcer ICD Code: L89.90 Status: Chronic (2) UTI (urinary tract infection) ICD Code: N39.0 Status: Acute (3) Neurogenic bladder ICD Code: N31.9 Status: Chronic (4) Paraplegia ICD Code: G82.20 Status: Chronic (5) Abdominal pain ICD Code: R10.9 Status: Acute Assessment and Plan 35-year-old male with PMH of Anxiety, Paraplegia, Neurogenic Bladder s/p Suprapubic Cath, Chronic UTI and Chronic Sacral Decubitus Ulcer who presented for evaluation of sacral wound Decubitus Ulcer: Chronic Sacral Decubitus Ulcer. Present at time of admission. Recent admit 05/02-05/10 for same, s/p eval by ID and IV Abx, arrangements made for Home Health at time of d/c however pt reports difficulty obtaining care, currently homeless. Patient referred to ED by PCP for assistance with chronic wound management. Afebrile, no leukocytosis. Discussed with ID and hypoid gear tester, wounds appear to be healing from previous with no signs of acute infection. Wound culture grew MRSA, likely colonized from superficial swab. No further antibiotics for sacral wounds per ID. Wound care nurse consulted, appreciate recommendations, orders for dressing changes placed. On oral Dilaudid at home for pain control (3 mg?), continue oral Dilaudid 2-4 mg as needed. Continue recommendations per plastic surgery. Sacral wounds healing well. UTI: UA with evidence of possible UTI. H/o chronic UTI due to neurogenic bladder w/ indwelling cath. Previous urine culture with Escherichia coli and Proteus. Suprapubic cath changed 06/09. ID consulted, appreciated recommendations. Urine culture with E.coli, sensitive to IV rocephin, continue Augmentin, finish 14 days of treatment.. Abdominal pain: Abdominal x-ray with nonspecific, nonobstructive bowel gas pattern. Abdominal CT with no acute findings. On bowel regimen for possible constipation, improved, continue to minimize narcotics. Continue Protonix. Neurogenic Bladder: Secondary to Paraplegia. Suprapubic Cath exchanged on . Paraplegia: At baseline. Continue home medications. Trapeze setup. PT eval, recommends SNF, case management assisting. Other chronic medical conditions are stable at this time and will continue home medications as indicated. DVT Prophylaxis: SCD/Teds. Discussed with case management, discharged to long-term facility when arrangements made. Discharge Planning Patient does not have a place to stay, he also needs regular wound care management, wound is healing well now, needs rehabilitation for long-term placement and wound care. Problem Qualifiers (1) UTI (urinary tract infection): Qualified Code: T83.510A - Urinary tract infection associated with cystostomy catheter, initial encounter (2) Abdominal pain: Qualified Code: R10.13 - Epigastric pain Wil Curtis MD Jun 14, 2016 12:29
[2016-06-14 12:30] VITALS: BP 130/60; PULSE 80; RESP 18; TEMP 98; O2SAT 98
[2016-06-14 16:00] VITALS: BP 113/56; PULSE 78; RESP 18; TEMP 98.3; O2SAT 97
[2016-06-14] MEDS: ALPRAZolam 1 MG TAB PO PRN (18:26)
[2016-06-14 20:00] VITALS: BP 117/62; PULSE 81; RESP 16; TEMP 98.6; O2SAT 97
[2016-06-15 00:20] VITALS: BP 108/56; PULSE 78; RESP 16; TEMP 98.6; O2SAT 96
[2016-06-15] MEDS: HYDROmorphone HCL 4 MG TAB PO PRN ×3 (03:43→14:55)
[2016-06-15 04:00] VITALS: BP 102/58; PULSE 67; RESP 16; TEMP 98; O2SAT 96
[2016-06-15 08:00] VITALS: BP 107/54; PULSE 63; RESP 18; TEMP 97.8; O2SAT 96
[2016-06-15] MEDS: GABAPENTIN 400 MG CAP PO SCH ×2 (08:00→14:54)
[2016-06-15] MEDS: ONDANSETRON HCL 4 MG/2 ML VIAL IVP PRN (08:00)
[2016-06-15] MEDS: PANTOPRAZOLE SOD 40 MG DELAYED RELEASE TAB PO SCH (08:00)
[2016-06-15] MEDS: FERROUS SULFATE 325 MG (65 MG ELEMENTAL IRON) TAB PO SCH (08:00)
[2016-06-15] MEDS: SODIUM CHLORIDE 0.9% FLUSH 5 ML FLUSH FLUSH SCH ×2 (08:01→21:06)
[2016-06-15] MEDS: AMOXICILLIN/CLAVULANATE K 875 MG TAB PO SCH ×2 (09:00→21:04)
[2016-06-15] MEDS: SODIUM HYPOCHLORITE 0.125% 500 ML BTL TOPICAL SCH (09:00)
[2016-06-15 12:00] VITALS: BP 113/57; PULSE 61; RESP 18; TEMP 98.1; O2SAT 98
[2016-06-15 16:00] VITALS: BP 116/59; PULSE 79; RESP 17; TEMP 97.4; O2SAT 99
--- NOTE | 2016-06-15 18:22 | HHI.PR ---
Subjective Remarks Patient complains of mild pain in the sacrum around the wound site. Otherwise denies fever or chills. I discussed with his nurse who stated that the wound nurse had stated that the decubitus wound appears to be improving compared to last week. Objective Vitals Vital Signs Date Time Temp Pulse Resp B/P Pulse Ox O2 Delivery O2 Flow Rate FiO2 06/15/16 16:00 97.4 79 17 116/59 99 06/15/16 12:00 98.1 61 18 113/57 98 06/15/16 08:00 97.8 63 18 107/54 96 06/15/16 04:00 98.0 67 16 102/58 96 06/15/16 00:20 98.6 78 16 108/56 96 06/14/16 20:00 98.6 81 16 117/62 97 I/O 06/14/16 06/14/16 06/14/16 06/15/16 06/15/16 06/15/16 07:00 15:00 23:00 07:00 15:00 23:00 Intake Total 420 ml 480 ml 240 ml 420 ml 960 ml Output Total 700 ml 720 ml 375 ml 1250 ml 1000 ml Balance -280 ml -240 ml -135 ml -830 ml -40 ml Intake Oral 420 ml 480 ml 240 ml 420 ml 960 ml Output Urine Total 700 ml 720 ml 375 ml 1250 ml 1000 ml Objective Remarks GENERAL: Well-nourished, well-developed middle-aged Afro-[place] male patient. SKIN: Warm and dry. HEAD: Normocephalic. EYES: No scleral icterus. No injection or drainage. NECK: Supple, trachea midline. No JVD or lymphadenopathy. CARDIOVASCULAR: Regular rate and rhythm without murmurs, gallops, or rubs. RESPIRATORY: Breath sounds equal bilaterally. No accessory muscle use. GASTROINTESTINAL: Abdomen soft, non-tender, nondistended. Suprapubic catheter in place. EXTREMITIES: No cyanosis, or edema. NEUROLOGICAL: Awake, alert, and oriented x 3. Paraplegic. Left foot wrapped in gauze. A/P Problem List: (1) Decubitus ulcer ICD Code: L89.90 Status: Chronic (2) UTI (urinary tract infection) ICD Code: N39.0 Status: Acute (3) Neurogenic bladder ICD Code: N31.9 Status: Chronic (4) Paraplegia ICD Code: G82.20 Status: Chronic (5) Abdominal pain ICD Code: R10.9 Status: Acute Assessment and Plan 35-year-old male with PMH of Anxiety, Paraplegia, Neurogenic Bladder s/p Suprapubic Cath, Chronic UTI and Chronic Sacral Decubitus Ulcer who presented for evaluation of sacral wound Stage IV Chronic Sacral Decubitus Ulcer, Present at time of admission. Recent admit 05/02-05/10 for same, s/p eval by ID and IV Abx, arrangements made for Home Health at time of d/c however pt reports difficulty obtaining care, currently homeless. Patient referred to ED by PCP for assistance with chronic wound management. Afebrile, no leukocytosis. Discussed with ID and dehorner, wounds appear to be healing from previous with no signs of acute infection. Wound culture grew MRSA, likely colonized from superficial swab. No further antibiotics for sacral wounds per ID. Wound care nurse consulted, appreciate recommendations, orders for dressing changes placed. On oral Dilaudid at home for pain control (3 mg?), continue oral Dilaudid 2-4 mg as needed. Continue recommendations per plastic surgery. Sacral wounds healing well. UTI: UA with evidence of possible UTI. H/o chronic UTI due to neurogenic bladder w/ indwelling cath. Previous urine culture with Escherichia coli and Proteus. Suprapubic cath changed 06/09. ID consulted, appreciated recommendations. Urine culture with E.coli, sensitive to IV rocephin, continue Augmentin, finish 14 days of treatment.. Abdominal pain: Abdominal x-ray with nonspecific, nonobstructive bowel gas pattern. Abdominal CT with no acute findings. On bowel regimen for possible constipation, improved, continue to minimize narcotics. Continue Protonix. Neurogenic Bladder: Secondary to Paraplegia. Suprapubic Cath exchanged on . Paraplegia: At baseline. Continue home medications. Trapeze setup. PT eval, recommends SNF, case management assisting. Other chronic medical conditions are stable at this time and will continue home medications as indicated. DVT Prophylaxis: SCD/Teds. Discharge Planning CM assisting with placement. Problem Qualifiers (1) UTI (urinary tract infection): Qualified Code: T83.510A - Urinary tract infection associated with cystostomy catheter, initial encounter (2) Abdominal pain: Qualified Code: R10.13 - Epigastric pain Rach Mcdonald MD Jun 15, 2016 18:22
[2016-06-15 20:00] VITALS: BP 124/64; PULSE 89; RESP 20; TEMP 98.4; O2SAT 97
[2016-06-16] VITALS (7 sets, daily range): BP systolic 104–122; BP diastolic 55–85; PULSE 62–92; RESP 16–20; TEMP 97.2–98.3; O2SAT 93–98
[2016-06-16] MEDS: ALPRAZolam 1 MG TAB PO PRN ×2 (05:38→21:55)
[2016-06-16] MEDS: HYDROmorphone HCL 4 MG TAB PO PRN ×4 (05:38→22:12)
[2016-06-16] MEDS: SODIUM CHLORIDE 0.9% FLUSH 5 ML FLUSH FLUSH SCH ×2 (09:00→21:56)
[2016-06-16] MEDS: AMOXICILLIN/CLAVULANATE K 875 MG TAB PO SCH ×2 (10:14→21:55)
[2016-06-16] MEDS: GABAPENTIN 400 MG CAP PO SCH ×3 (10:17→17:23)
[2016-06-16] MEDS: SODIUM HYPOCHLORITE 0.125% 500 ML BTL TOPICAL SCH (10:17)
[2016-06-16] MEDS: PANTOPRAZOLE SOD 40 MG DELAYED RELEASE TAB PO SCH (10:17)
[2016-06-16] MEDS: FERROUS SULFATE 325 MG (65 MG ELEMENTAL IRON) TAB PO SCH ×2 (10:18→17:23)
[2016-06-16] MEDS: CARISOPRODOL 350 MG TAB PO PRN (17:22)
--- NOTE | 2016-06-16 18:27 | HHI.PR ---
Subjective Remarks Pt c/o pain with wound changes and asked for dilaudid Objective Vitals Vital Signs Date Time Temp Pulse Resp B/P Pulse Ox O2 Delivery O2 Flow Rate FiO2 06/16/16 04:00 98.2 62 18 104/55 97 06/16/16 00:00 97.2 92 18 116/55 96 06/15/16 20:00 98.4 89 20 124/64 97 I/O 06/15/16 06/15/16 06/15/16 06/16/16 06/16/16 06/16/16 07:00 15:00 23:00 07:00 15:00 23:00 Intake Total 420 ml 960 ml 840 ml 220 ml Output Total 1250 ml 1000 ml 2650 ml 1000 ml Balance -830 ml -40 ml -1810 ml -780 ml Intake Oral 420 ml 960 ml 840 ml 220 ml Output Urine Total 1250 ml 1000 ml 2650 ml 1000 ml Objective Remarks GENERAL: Well-nourished, well-developed middle-aged Afro-[place] male patient. SKIN: Warm and dry. HEAD: Normocephalic. EYES: No scleral icterus. No injection or drainage. NECK: Supple, trachea midline. No JVD or lymphadenopathy. CARDIOVASCULAR: Regular rate and rhythm without murmurs, gallops, or rubs. RESPIRATORY: Breath sounds equal bilaterally. No accessory muscle use. GASTROINTESTINAL: Abdomen soft, non-tender, nondistended. Suprapubic catheter in place. EXTREMITIES: No cyanosis, or edema. NEUROLOGICAL: Awake, alert, and oriented x 3. Paraplegic. Left foot wrapped in gauze. A/P Problem List: (1) Decubitus ulcer ICD Code: L89.90 Status: Chronic (2) UTI (urinary tract infection) ICD Code: N39.0 Status: Acute (3) Neurogenic bladder ICD Code: N31.9 Status: Chronic (4) Paraplegia ICD Code: G82.20 Status: Chronic (5) Abdominal pain ICD Code: R10.9 Status: Acute Assessment and Plan 35-year-old male with PMH of Anxiety, Paraplegia, Neurogenic Bladder s/p Suprapubic Cath, Chronic UTI and Chronic Sacral Decubitus Ulcer who presented for evaluation of sacral wound Stage IV Chronic Sacral Decubitus Ulcer, Present at time of admission. Recent admit 05/02-05/10 for same, s/p eval by ID and IV Abx, arrangements made for Home Health at time of d/c however pt reports difficulty obtaining care, currently homeless. Patient referred to ED by PCP for assistance with chronic wound management. Afebrile, no leukocytosis. Discussed with ID and waxing machine operator, wounds appear to be healing from previous with no signs of acute infection. Wound culture grew MRSA, likely colonized from superficial swab. No further antibiotics for sacral wounds per ID. Wound care nurse consulted, appreciate recommendations, orders for dressing changes placed. On oral Dilaudid at home for pain control (3 mg?), continue oral Dilaudid 2-4 mg as needed. 0.5 mg IV dialudid with wound changes. Continue recommendations per plastic surgery. Sacral wounds healing well. UTI: UA with evidence of possible UTI. H/o chronic UTI due to neurogenic bladder w/ indwelling cath. Previous urine culture with Escherichia coli and Proteus. Suprapubic cath changed 06/09. ID consulted, appreciated recommendations. Urine culture with E.coli, sensitive to IV rocephin, continue Augmentin, finish 14 days of treatment.. Abdominal pain: Abdominal x-ray with nonspecific, nonobstructive bowel gas pattern. Abdominal CT with no acute findings. On bowel regimen for possible constipation, improved, continue to minimize narcotics. Continue Protonix. Neurogenic Bladder: Secondary to Paraplegia. Suprapubic Cath exchanged on . Paraplegia: At baseline. Continue home medications. Trapeze setup. PT eval, recommends SNF, case management assisting. Other chronic medical conditions are stable at this time and will continue home medications as indicated. DVT Prophylaxis: SCD/Teds. Discharge Planning CM assisting with placement. Problem Qualifiers (1) UTI (urinary tract infection): Qualified Code: T83.510A - Urinary tract infection associated with cystostomy catheter, initial encounter (2) Abdominal pain: Qualified Code: R10.13 - Epigastric pain Rach Mcdonald MD Jun 16, 2016 18:27
[2016-06-16] MEDS: HYDROmorphone HCL PF 2 MG/ML VIAL IV PUSH PRN (18:38)
[2016-06-17] MEDS: HYDROmorphone HCL PF 2 MG/ML VIAL IV PUSH PRN ×2 (03:02→08:06)
[2016-06-17 04:50] VITALS: BP 101/56; PULSE 81; RESP 16; TEMP 97.9; O2SAT 96
[2016-06-17 08:00] VITALS: BP 121/64; PULSE 88; RESP 18; TEMP 97.9; O2SAT 97
[2016-06-17] MEDS: SODIUM CHLORIDE 0.9% FLUSH 5 ML FLUSH FLUSH SCH ×2 (08:05→21:20)
[2016-06-17] MEDS: GABAPENTIN 400 MG CAP PO SCH ×3 (08:05→17:00)
[2016-06-17] MEDS: PANTOPRAZOLE SOD 40 MG DELAYED RELEASE TAB PO SCH (08:05)
[2016-06-17] MEDS: FERROUS SULFATE 325 MG (65 MG ELEMENTAL IRON) TAB PO SCH ×2 (08:05→17:00)
[2016-06-17] MEDS: AMOXICILLIN/CLAVULANATE K 875 MG TAB PO SCH ×2 (08:05→21:19)
[2016-06-17] MEDS: SODIUM HYPOCHLORITE 0.125% 500 ML BTL TOPICAL SCH (09:00)
[2016-06-17 12:00] VITALS: BP 113/55; PULSE 82; RESP 16; TEMP 98.6; O2SAT 95
[2016-06-17] MEDS: HYDROmorphone HCL 4 MG TAB PO PRN ×2 (12:32→17:01)
[2016-06-17 16:00] VITALS: BP 124/67; PULSE 86; RESP 18; TEMP 97.3; O2SAT 96
--- NOTE | 2016-06-17 16:17 | HHI.PR ---
Subjective Remarks Follow up for stage IV chronic sacral decubitus ulcer and UTI. The patient states his pain is under control with the dilaudid. Denies any fevers or chills. Constipation resolved, having regular BMs. Tolerating oral intake. He has no new medical complaints at this time. Vital signs reviewed and stable. Objective Vitals Vital Signs Date Time Temp Pulse Resp B/P Pulse Ox O2 Delivery O2 Flow Rate FiO2 06/17/16 12:00 98.6 82 16 113/55 95 06/17/16 08:00 97.9 88 18 121/64 97 06/17/16 04:50 97.9 81 16 101/56 96 06/16/16 23:22 98.0 86 16 110/60 93 06/16/16 20:25 98.1 85 16 115/85 98 06/16/16 16:00 98.3 92 20 112/57 95 I/O 06/16/16 06/16/16 06/16/16 06/17/16 06/17/16 06/17/16 07:00 15:00 23:00 07:00 15:00 23:00 Intake Total 220 ml 480 ml 1080 ml 1200 ml Output Total 1000 ml 2125 ml 125 ml 1550 ml Balance -780 ml -1645 ml 955 ml -350 ml Intake Oral 220 ml 480 ml 1080 ml 1200 ml Output Urine Total 1000 ml 2125 ml 125 ml 1550 ml # Bowel Movements 1 0 0 Imaging Last Impressions Chest X-Ray 06/08/16 1341 Signed Impressions: Service Date/Time: May 14:46 - CONCLUSION: No acute cardiopulmonary abnormality is identified. Luis Felipe Guerra MD Abdomen/Pelvis CT 06/08/16 1341 Signed Impressions: Service Date/Time: May 18:40 - CONCLUSION: 1. The balloon portion of the suprapubic catheter is inside the prosthetic urethra. 2. Probable hepatic hemangioma. Ryanne Maya MD Objective Remarks GENERAL: Well-nourished, well-developed middle aged AA male patient in [facility]. SKIN: Warm and dry. No rash. Sacral wound present, not examined today. HEAD: Normocephalic. Atraumatic. NECK: Supple. Trachea midline. CARDIOVASCULAR: Regular rate and rhythm. S1, S2 noted. No murmur appreciated. RESPIRATORY: No accessory muscle use. Clear to auscultation. Breath sounds equal bilaterally. GASTROINTESTINAL: Abdomen soft, non-tender, nondistended. Normoactive bowel sounds x4. Ostomy and suprapubic catheter in place. NEUROLOGICAL: Awake and alert. Paraplegic. Moves upper extremities spontaneously. Normal speech. PSYCHIATRIC: Appropriate mood and affect; insight and judgment normal. Medications and IVs Current Medications Medications (Trade) Dose Ordered Sig/Haja Route Start Time Stop Time Status Last Admin (NS Flush) 2 ml UNSCH PRN FLUSH 06/08/16 20:00 06/09/16 17:34 (NS Flush) 2 ml BID FLUSH 06/08/16 21:00 06/17/16 08:05 (Zofran Inj) 4 mg Q6H PRN IVP 06/08/16 20:00 06/15/16 08:00 (Dulcolax Supp) 10 mg DAILY PRN LA 06/08/16 20:00 (Tylenol) 650 mg Q6H PRN PO 06/08/16 20:00 (Xanax) 1 mg Q6H PRN PO 06/08/16 20:00 06/16/16 21:55 (Soma) 350 mg TID PRN PO 06/08/16 20:00 06/16/16 17:22 (Ferrous Sulfate) 325 mg BIDPC PO 06/09/16 09:00 06/17/16 08:05 (Neurontin) 800 mg TID PO 06/09/16 09:00 06/17/16 12:31 (Dilaudid) 2 mg Q6H PRN PO 06/08/16 20:00 06/13/16 14:07 (ZyPREXA) 15 mg HS PO 06/08/16 21:00 06/16/16 21:55 (Dilaudid) 4 mg Q4H PRN PO 06/09/16 08:30 06/17/16 12:32 (Protonix) 40 mg DAILY PO 06/09/16 09:00 06/17/16 08:05 (Dakin'S 0.125% Soln) 500 ml DAILY TOPICAL 06/10/16 09:00 06/17/16 09:00 (Augmentin) 875 mg Q12HR PO 06/12/16 21:00 06/23/16 12:27 06/17/16 08:05 (Dilaudid Pf Inj) 0.5 mg DAILY@1600 PRN IV PUSH 06/16/16 18:00 06/17/16 08:06 A/P Problem List: (1) Decubitus ulcer ICD Code: L89.90 Status: Chronic (2) UTI (urinary tract infection) ICD Code: N39.0 Status: Acute (3) Neurogenic bladder ICD Code: N31.9 Status: Chronic (4) Paraplegia ICD Code: G82.20 Status: Chronic (5) Abdominal pain ICD Code: R10.9 Status: Acute Assessment and Plan 35-year-old male with PMH of Anxiety, Paraplegia, Neurogenic Bladder s/p Suprapubic Cath, Chronic UTI and Chronic Sacral Decubitus Ulcer who presented for evaluation of sacral wound Stage IV Chronic Sacral Decubitus Ulcer, Present at time of admission. Recent admit 05/02-05/10 for same, s/p eval by ID and IV Abx, arrangements made for Home Health at time of d/c however pt reports difficulty obtaining care, currently homeless. Patient referred to ED by PCP for assistance with chronic wound management. Afebrile, no leukocytosis. Discussed with ID and dog licenser, wounds appear to be healing from previous with no signs of acute infection. Wound culture grew MRSA, likely colonized from superficial swab. No further antibiotics for sacral wounds per ID. Wound care nurse consulted, appreciate recommendations, orders for dressing changes placed. On oral Dilaudid at home for pain control (3 mg?), continue oral Dilaudid 2-4 mg as needed. 0.5 mg IV dialudid with wound changes. Continue recommendations per plastic surgery. Sacral wounds healing well. UTI: UA with evidence of possible UTI. H/o chronic UTI due to neurogenic bladder w/ indwelling cath. Previous urine culture with Escherichia coli and Proteus. Suprapubic cath changed 06/09. ID consulted, appreciated recommendations. Urine culture with E.coli, sensitive to IV rocephin, continue Augmentin, finish 14 days of treatment. Abdominal pain: Abdominal x-ray with nonspecific, nonobstructive bowel gas pattern. Abdominal CT with no acute findings. On bowel regimen for possible constipation, improved, continue to minimize narcotics. Continue Protonix. No abdominal pain today. Neurogenic Bladder: Secondary to Paraplegia. Suprapubic Cath exchanged on . Paraplegia: At baseline. Continue home medications. Trapeze setup. PT eyal, recommends SNF, case management assisting. Other chronic medical conditions are stable at this time and will continue home medications as indicated. DVT Prophylaxis: SCD/Teds. Discharge Planning Case management assisting with SNF placement. Problem Qualifiers (1) UTI (urinary tract infection): Qualified Code: T83.510A - Urinary tract infection associated with cystostomy catheter, initial encounter (2) Abdominal pain: Qualified Code: R10.13 - Epigastric pain Abby Lima PA-C Jun 17, 2016 16:17
[2016-06-17 20:00] VITALS: BP 130/64; PULSE 87; RESP 16; TEMP 98.2; O2SAT 97
[2016-06-17] MEDS: CARISOPRODOL 350 MG TAB PO PRN (21:35)
[2016-06-17] MEDS: ALPRAZolam 1 MG TAB PO PRN (21:35)
[2016-06-17] MEDS: HYDROmorphone HCL 2 MG TAB PO PRN (21:36)
[2016-06-18 00:08] VITALS: BP 122/62; PULSE 88; RESP 16; TEMP 98.1; O2SAT 97
[2016-06-18 04:04] VITALS: BP 106/62; PULSE 72; RESP 16; TEMP 97.9; O2SAT 98
[2016-06-18] MEDS: ALPRAZolam 1 MG TAB PO PRN ×2 (06:15→19:39)
[2016-06-18] MEDS: HYDROmorphone HCL 4 MG TAB PO PRN ×5 (06:15→23:55)
[2016-06-18 08:03] VITALS: BP 113/61; PULSE 82; RESP 20; TEMP 97.6; O2SAT 97
--- NOTE | 2016-06-18 08:44 | PD.PLAS.PN ---
Subjective Remarks Patient asleep. Did not wake. him Dressing changes on schedule Wounds are clean and red as per nursing. OK to change to Saline wet to dry now. I will sign off here. He needs to be followed up in the wound care clinic for future care. Please contact plastic surgery precision printing worker for any immediate need - [place] of [place] 4 weeks. Vital Signs Date Time Temp Pulse Resp B/P Pulse Ox O2 Delivery O2 Flow Rate FiO2 06/18/16 04:04 97.9 72 16 106/62 98 06/18/16 00:08 98.1 88 16 122/62 97 06/17/16 22:30 20 06/17/16 22:30 20 06/17/16 20:00 98.2 87 16 130/64 97 06/17/16 12:00 98.6 82 16 113/55 95 I/O 06/17/16 06/17/16 06/17/16 06/18/16 06/18/16 06/18/16 06:59 14:59 22:59 06:59 14:59 22:59 Intake Total 1200 ml 720 ml 360 ml 120 ml Output Total 1550 ml 2450 ml 1150 ml 675 ml Balance -350 ml -1730 ml -790 ml -555 ml Intake Oral 1200 ml 720 ml 360 ml 120 ml IV Total 0 ml Output Urine Total 1550 ml 2450 ml 850 ml 675 ml Stool Total 300 ml # Bowel Movements 0 Zain Gruber MD Jun 18, 2016 08:44
[2016-06-18] MEDS: SODIUM HYPOCHLORITE 0.125% 500 ML BTL TOPICAL SCH ×2 (09:00→12:50)
[2016-06-18 12:03] VITALS: BP 113/56; PULSE 86; RESP 19; TEMP 97.8; O2SAT 95
[2016-06-18] MEDS: SODIUM CHLORIDE 0.9% FLUSH 5 ML FLUSH FLUSH SCH ×2 (12:49→19:42)
[2016-06-18] MEDS: PANTOPRAZOLE SOD 40 MG DELAYED RELEASE TAB PO SCH (12:50)
[2016-06-18] MEDS: AMOXICILLIN/CLAVULANATE K 875 MG TAB PO SCH ×2 (12:50→19:39)
[2016-06-18] MEDS: FERROUS SULFATE 325 MG (65 MG ELEMENTAL IRON) TAB PO SCH ×2 (12:50→18:30)
[2016-06-18] MEDS: GABAPENTIN 400 MG CAP PO SCH ×3 (12:50→18:30)
[2016-06-18 16:00] VITALS: BP 113/56; PULSE 89; RESP 18; TEMP 97.8; O2SAT 95
--- NOTE | 2016-06-18 16:15 | HHI.PR ---
Subjective Remarks pt complains of sacral pain - says he did not get the IV dilaudid with the wound care change - I note he did receive it this morning. Objective Vitals Vital Signs Date Time Temp Pulse Resp B/P Pulse Ox O2 Delivery O2 Flow Rate FiO2 06/18/16 12:52 18 06/18/16 12:03 97.8 86 19 113/56 95 06/18/16 08:03 97.6 82 20 113/61 97 06/18/16 04:04 97.9 72 16 106/62 98 06/18/16 00:08 98.1 88 16 122/62 97 06/17/16 22:30 20 06/17/16 22:30 20 06/17/16 20:00 98.2 87 16 130/64 97 I/O 06/17/16 06/17/16 06/17/16 06/18/16 06/18/16 06/18/16 07:00 15:00 23:00 07:00 15:00 23:00 Intake Total 1200 ml 720 ml 360 ml 120 ml Output Total 1550 ml 2450 ml 1150 ml 675 ml Balance -350 ml -1730 ml -790 ml -555 ml Intake Oral 1200 ml 720 ml 360 ml 120 ml IV Total 0 ml Output Urine Total 1550 ml 2450 ml 850 ml 675 ml Stool Total 300 ml # Bowel Movements 0 Objective Remarks GENERAL: Well-nourished, well-developed middle-aged [place] male patient. SKIN: Warm and dry. HEAD: Normocephalic. EYES: No scleral icterus. No injection or drainage. NECK: Supple, trachea midline. No JVD or lymphadenopathy. CARDIOVASCULAR: Regular rate and rhythm without murmurs, gallops, or rubs. RESPIRATORY: Breath sounds equal bilaterally. No accessory muscle use. GASTROINTESTINAL: Abdomen soft, non-tender, nondistended. Suprapubic catheter in place. EXTREMITIES: No cyanosis, or edema. NEUROLOGICAL: Awake, alert, and oriented x 3. Paraplegic. Left foot wrapped in gauze. A/P Problem List: (1) Decubitus ulcer ICD Code: L89.90 Status: Chronic (2) UTI (urinary tract infection) ICD Code: N39.0 Status: Acute (3) Neurogenic bladder ICD Code: N31.9 Status: Chronic (4) Paraplegia ICD Code: G82.20 Status: Chronic (5) Abdominal pain ICD Code: R10.9 Status: Acute Assessment and Plan 35-year-old male with PMH of Anxiety, Paraplegia, Neurogenic Bladder s/p Suprapubic Cath, Chronic UTI and Chronic Sacral Decubitus Ulcer who presented for evaluation of sacral wound Stage IV Chronic Sacral Decubitus Ulcer, Present at time of admission. Recent admit 05/02-05/10 for same, s/p eval by ID and IV Abx, arrangements made for Home Health at time of d/c however pt reports difficulty obtaining care, currently homeless. Patient referred to ED by PCP for assistance with chronic wound management. Afebrile, no leukocytosis. Discussed with ID and veneer slicing machine operator, wounds appear to be healing from previous with no signs of acute infection. Wound culture grew MRSA, likely colonized from superficial swab. No further antibiotics for sacral wounds per ID. Wound care nurse consulted, appreciate recommendations, orders for dressing changes placed. On oral Dilaudid at home for pain control (3 mg?), continue oral Dilaudid 2-4 mg as needed. 0.5 mg IV Dilaudid prn with wound changes. Continue recommendations per plastic surgery. Sacral wounds healing well. UTI: UA with evidence of possible UTI. H/o chronic UTI due to neurogenic bladder w/ indwelling cath. Previous urine culture with Escherichia coli and Proteus. Suprapubic cath changed 06/09. ID consulted, appreciated recommendations. Urine culture with E.coli, continue Augmentin, finish 14 days of treatment (stop date 06/23). Neurogenic Bladder: Secondary to Paraplegia. Suprapubic Cath exchanged on . Paraplegia: At baseline. Continue home medications. Trapeze setup. PT eval, recommends SNF, case management assisting. DVT Prophylaxis: SCD/Teds. Discharge Planning CM assisting with placement. Problem Qualifiers (1) UTI (urinary tract infection): Qualified Code: T83.510A - Urinary tract infection associated with cystostomy catheter, initial encounter (2) Abdominal pain: Qualified Code: R10.13 - Epigastric pain Rach Mcdonald MD Jun 18, 2016 16:15
[2016-06-18] MEDS: HYDROmorphone HCL PF 2 MG/ML VIAL IV PUSH PRN (21:36)
[2016-06-18] MEDS: CARISOPRODOL 350 MG TAB PO PRN (23:57)
[2016-06-19 01:28] VITALS: BP 136/86; PULSE 88; RESP 18; TEMP 97.9; O2SAT 95
[2016-06-19 04:46] VITALS: BP 130/84; PULSE 91; RESP 18; TEMP 98.1; O2SAT 96
[2016-06-19] MEDS: HYDROmorphone HCL 4 MG TAB PO PRN ×3 (06:29→20:27)
[2016-06-19] MEDS: GABAPENTIN 400 MG CAP PO SCH ×3 (07:51→17:35)
[2016-06-19] MEDS: AMOXICILLIN/CLAVULANATE K 875 MG TAB PO SCH ×2 (07:51→20:27)
[2016-06-19] MEDS: FERROUS SULFATE 325 MG (65 MG ELEMENTAL IRON) TAB PO SCH ×2 (07:51→17:35)
[2016-06-19] MEDS: PANTOPRAZOLE SOD 40 MG DELAYED RELEASE TAB PO SCH (07:52)
[2016-06-19] MEDS: SODIUM CHLORIDE 0.9% FLUSH 5 ML FLUSH FLUSH SCH ×2 (07:52→20:33)
[2016-06-19] MEDS: SODIUM HYPOCHLORITE 0.125% 500 ML BTL TOPICAL SCH (07:54)
[2016-06-19 08:00] VITALS: BP 109/58; PULSE 74; RESP 18; TEMP 97.7; O2SAT 97
[2016-06-19] MEDS: HYDROmorphone HCL PF 2 MG/ML VIAL IV PUSH PRN ×2 (10:39→22:30)
--- NOTE | 2016-06-19 11:48 | HHI.PR ---
Subjective Remarks Laying comfortably in bed, afebrile no acute distress Awaiting placement Objective Vitals Vital Signs Date Time Temp Pulse Resp B/P Pulse Ox O2 Delivery O2 Flow Rate FiO2 06/19/16 08:00 97.7 74 18 109/58 97 06/19/16 04:46 98.1 91 18 130/84 96 06/19/16 01:28 97.9 88 18 136/86 95 06/19/16 00:55 18 06/19/16 00:55 18 06/18/16 22:06 18 06/18/16 16:00 97.8 89 18 113/56 95 06/18/16 12:03 97.8 86 19 113/56 95 I/O 06/18/16 06/18/16 06/18/16 06/19/16 06/19/16 06/19/16 06:59 14:59 22:59 06:59 14:59 22:59 Intake Total 120 ml 560 ml Output Total 675 ml 1200 ml 500 ml Balance -555 ml -640 ml -500 ml Intake Oral 120 ml 560 ml IV Total 0 ml Output Urine Total 675 ml 1200 ml Stool Total 500 ml Objective Remarks GENERAL: Well-nourished, well-developed AA male patient. In no acute distress CARDIOVASCULAR: Regular rate and rhythm without murmurs, gallops, or rubs. RESPIRATORY: Fair air entry bilaterally. No accessory muscle use. GASTROINTESTINAL: Abdomen soft, non-tender, nondistended. Suprapubic catheter in place. EXTREMITIES: No cyanosis, or edema. NEUROLOGICAL: AAO 3, Paraplegic. Left foot in gauze. A/P Problem List: (1) Decubitus ulcer ICD Code: L89.90 Status: Chronic (2) UTI (urinary tract infection) ICD Code: N39.0 Status: Acute (3) Neurogenic bladder ICD Code: N31.9 Status: Chronic (4) Paraplegia ICD Code: G82.20 Status: Chronic (5) Abdominal pain ICD Code: R10.9 Status: Acute Assessment and Plan Daily update & Mngmt 06/19/16 Continue current care, awaiting placement A/P 35-year-old male with PMH of Anxiety, Paraplegia, Neurogenic Bladder s/p Suprapubic Cath, Chronic UTI and Chronic Sacral Decubitus Ulcer who presented for evaluation of sacral wound Stage IV Chronic Sacral Decubitus Ulcer, Present at time of admission. Recent admit 05/02-05/10 for same, s/p eval by ID and IV Abx, arrangements made for Home Health at time of d/c however pt reports difficulty obtaining care, currently homeless. Patient referred to ED by PCP for assistance with chronic wound management. Afebrile, no leukocytosis. Discussed with ID and dealer sales rep, wounds appear to be healing from previous with no signs of acute infection. Wound culture grew MRSA, likely colonized from superficial swab. No further antibiotics for sacral wounds per ID. Wound care nurse consulted, appreciate recommendations, orders for dressing changes placed. On oral Dilaudid at home for pain control (3 mg?), continue oral Dilaudid 2-4 mg as needed. 0.5 mg IV Dilaudid prn with wound changes. Continue recommendations per plastic surgery. Sacral wounds healing well. UTI: UA with evidence of possible UTI. H/o chronic UTI due to neurogenic bladder w/ indwelling cath. Previous urine culture with Escherichia coli and Proteus. Suprapubic cath changed 06/09. ID consulted, appreciated recommendations. Urine culture with E.coli, continue Augmentin, finish 14 days of treatment (stop date 06/23). Neurogenic Bladder: Secondary to Paraplegia. Suprapubic Cath exchanged on . Paraplegia: At baseline. Continue home medications. Trapeze setup. PT eval, recommends SNF, case management assisting. DVT Prophylaxis: SCD/Teds. Problem Qualifiers (1) UTI (urinary tract infection): Qualified Code: T83.510A - Urinary tract infection associated with cystostomy catheter, initial encounter (2) Abdominal pain: Qualified Code: R10.13 - Epigastric pain Jose Holley MD Jun 19, 2016 11:48
[2016-06-19 12:00] VITALS: BP 136/69; PULSE 85; RESP 20; TEMP 96; O2SAT 96
[2016-06-19 16:00] VITALS: BP 107/56; PULSE 93; RESP 18; TEMP 97.7; O2SAT 98
[2016-06-19] MEDS: ONDANSETRON HCL 4 MG/2 ML VIAL IVP PRN (17:35)
[2016-06-19] MEDS: CARISOPRODOL 350 MG TAB PO PRN (17:40)
[2016-06-19 20:00] VITALS: BP 119/59; PULSE 82; RESP 18; TEMP 98.1; O2SAT 97
[2016-06-19] MEDS: ALPRAZolam 1 MG TAB PO PRN (22:29)
[2016-06-19] MEDS: SODIUM CHLORIDE 0.9% FLUSH 5 ML FLUSH FLUSH PRN (22:30)
[2016-06-20] VITALS: BP 123/56; PULSE 84; RESP 18; TEMP 97.9; O2SAT 97
[2016-06-20 04:00] VITALS: BP 116/59; PULSE 84; RESP 18; TEMP 97.9; O2SAT 96
[2016-06-20 08:00] VITALS: BP 120/56; PULSE 83; RESP 18; TEMP 97.8; O2SAT 99
[2016-06-20] MEDS: PANTOPRAZOLE SOD 40 MG DELAYED RELEASE TAB PO SCH (08:50)
[2016-06-20] MEDS: GABAPENTIN 400 MG CAP PO SCH ×3 (08:50→17:23)
[2016-06-20] MEDS: AMOXICILLIN/CLAVULANATE K 875 MG TAB PO SCH ×2 (08:51→20:44)
[2016-06-20] MEDS: FERROUS SULFATE 325 MG (65 MG ELEMENTAL IRON) TAB PO SCH ×2 (08:51→17:23)
[2016-06-20] MEDS: SODIUM CHLORIDE 0.9% FLUSH 5 ML FLUSH FLUSH SCH ×2 (08:51→20:44)
[2016-06-20] MEDS: HYDROmorphone HCL 4 MG TAB PO PRN ×2 (08:52→17:24)
[2016-06-20] MEDS: SODIUM HYPOCHLORITE 0.125% 500 ML BTL TOPICAL SCH (08:54)
[2016-06-20] MEDS: HYDROmorphone HCL PF 2 MG/ML VIAL IV PUSH PRN ×2 (11:30→22:17)
[2016-06-20 12:00] VITALS: BP 120/58; PULSE 90; RESP 18; TEMP 98.3; O2SAT 97
[2016-06-20] MEDS ORDERED: diphenhydrAMINE HCL 50 MG/ML VIAL IV PUSH PRN (12:30)
--- NOTE | 2016-06-20 15:10 | HHI.PR ---
Subjective Remarks Patient sleeping in bed, arousable to verbal stimuli, no acute issue, awaiting placement Objective Vitals Vital Signs Date Time Temp Pulse Resp B/P Pulse Ox O2 Delivery O2 Flow Rate FiO2 06/20/16 12:00 98.3 90 18 120/58 97 06/20/16 08:00 97.8 83 18 120/56 99 06/20/16 08:00 Room Air 06/20/16 04:00 Room Air 06/20/16 04:00 97.9 84 18 116/59 96 06/20/16 00:00 97.9 84 18 123/56 97 06/20/16 00:00 Room Air 06/19/16 20:00 Room Air 06/19/16 20:00 98.1 82 18 119/59 97 06/19/16 16:00 97.7 93 18 107/56 98 I/O 06/19/16 06/19/16 06/19/16 06/20/16 06/20/16 06/20/16 07:00 15:00 23:00 07:00 15:00 23:00 Intake Total 960 ml 100 ml 960 ml Output Total 1450 ml 600 ml 750 ml 1451 ml Balance -1450 ml 360 ml -650 ml -491 ml Intake Oral 960 ml 100 ml 960 ml Output Urine Total 1450 ml 600 ml 750 ml 1450 ml Stool Total 1 ml # Bowel Movements 0 Objective Remarks GENERAL: Well-nourished, well-developed AA male patient. In no acute distress CARDIOVASCULAR: Regular rate and rhythm without murmurs, gallops, or rubs. RESPIRATORY: Fair air entry bilaterally. No accessory muscle use. GASTROINTESTINAL: Abdomen soft, non-tender, nondistended. Suprapubic catheter in place. EXTREMITIES: No cyanosis, or edema. NEUROLOGICAL: AAO 3, Paraplegic. Left foot in gauze. A/P Problem List: (1) Decubitus ulcer ICD Code: L89.90 Status: Chronic (2) UTI (urinary tract infection) ICD Code: N39.0 Status: Acute (3) Neurogenic bladder ICD Code: N31.9 Status: Chronic (4) Paraplegia ICD Code: G82.20 Status: Chronic (5) Abdominal pain ICD Code: R10.9 Status: Acute Assessment and Plan Daily update & Mngmt 06/20/16 Management reviewed , Continue current care, awaiting placement A/P 35-year-old male with PMH of Anxiety, Paraplegia, Neurogenic Bladder s/p Suprapubic Cath, Chronic UTI and Chronic Sacral Decubitus Ulcer who presented for evaluation of sacral wound Stage IV Chronic Sacral Decubitus Ulcer, Present at time of admission. Recent admit 05/02-05/10 for same, s/p eval by ID and IV Abx, arrangements made for Home Health at time of d/c however pt reports difficulty obtaining care, currently homeless. Patient referred to ED by PCP for assistance with chronic wound management. Afebrile, no leukocytosis. Discussed with ID and wet room supervisor, wounds appear to be healing from previous with no signs of acute infection. Wound culture grew MRSA, likely colonized from superficial swab. No further antibiotics for sacral wounds per ID. Wound care nurse consulted, appreciate recommendations, orders for dressing changes placed. On oral Dilaudid at home for pain control (3 mg?), continue oral Dilaudid 2-4 mg as needed. 0.5 mg IV Dilaudid prn with wound changes. Continue recommendations per plastic surgery. Sacral wounds healing well. UTI: UA with evidence of possible UTI. H/o chronic UTI due to neurogenic bladder w/ indwelling cath. Previous urine culture with Escherichia coli and Proteus. Suprapubic cath changed 06/09. ID consulted, appreciated recommendations. Urine culture with E.coli, continue Augmentin, finish 14 days of treatment (stop date 06/23). Neurogenic Bladder: Secondary to Paraplegia. Suprapubic Cath exchanged on . Paraplegia: At baseline. Continue home medications. Trapeze setup. PT eval, recommends SNF, case management assisting. DVT Prophylaxis: SCD/Teds. Problem Qualifiers (1) UTI (urinary tract infection): Qualified Code: T83.510A - Urinary tract infection associated with cystostomy catheter, initial encounter (2) Abdominal pain: Qualified Code: R10.13 - Epigastric pain Jose Holley MD Jun 20, 2016 15:10
[2016-06-20 16:00] VITALS: BP 116/57; PULSE 78; RESP 18; TEMP 98.5; O2SAT 96
[2016-06-20 20:00] VITALS: BP_SYST 118; BP_SYST 119; BP_DIAS 58; BP_DIAS 62; PULSE 75; PULSE 90; RESP 18; TEMP 97.3; TEMP 98.3; O2SAT 95; O2SAT 98
[2016-06-20] MEDS: CARISOPRODOL 350 MG TAB PO PRN (20:44)
[2016-06-20] MEDS: ALPRAZolam 1 MG TAB PO PRN (22:16)
[2016-06-21] VITALS: BP 118/62; PULSE 90; RESP 18; TEMP 97.3; O2SAT 98
[2016-06-21 04:00] VITALS: BP 109/59; PULSE 74; RESP 16; TEMP 97.9; O2SAT 95
[2016-06-21 08:00] VITALS: BP 113/56; PULSE 81; RESP 18; TEMP 97.4; O2SAT 96
[2016-06-21] MEDS: AMOXICILLIN/CLAVULANATE K 875 MG TAB PO SCH ×2 (09:00→21:26)
[2016-06-21] MEDS: SODIUM CHLORIDE 0.9% FLUSH 5 ML FLUSH FLUSH SCH ×2 (10:35→23:04)
[2016-06-21] MEDS: PANTOPRAZOLE SOD 40 MG DELAYED RELEASE TAB PO SCH (10:36)
[2016-06-21] MEDS: FERROUS SULFATE 325 MG (65 MG ELEMENTAL IRON) TAB PO SCH ×2 (10:36→18:24)
[2016-06-21] MEDS: GABAPENTIN 400 MG CAP PO SCH ×3 (10:36→18:24)
[2016-06-21] MEDS: SODIUM HYPOCHLORITE 0.125% 500 ML BTL TOPICAL SCH (10:36)
[2016-06-21] MEDS: ONDANSETRON HCL 4 MG/2 ML VIAL IVP PRN ×2 (10:37→16:35)
[2016-06-21] MEDS: HYDROmorphone HCL 4 MG TAB PO PRN ×2 (10:37→21:27)
[2016-06-21 12:00] VITALS: BP 118/58; PULSE 87; RESP 18; TEMP 97.4; O2SAT 100
--- NOTE | 2016-06-21 13:00 | HHI.PR ---
Subjective Remarks Patient stated his pain is not alleviated via the po Dilaudid, he is on half milligrams twice a day for breakthrough I feel Dilaudid will make it every 8 hours D/W nurse telling me worsening diarrhea and the colostomy back, will check C. difficile Afebrile, no chest pain but all over body and back pain aching Objective Vitals Vital Signs Date Time Temp Pulse Resp B/P Pulse Ox O2 Delivery O2 Flow Rate FiO2 06/21/16 12:01 18 06/21/16 08:00 97.4 81 18 113/56 96 06/21/16 04:00 97.9 74 16 109/59 95 06/21/16 04:00 Room Air 06/21/16 00:00 97.3 90 18 118/62 98 06/21/16 00:00 Room Air 06/20/16 20:00 Room Air 06/20/16 20:00 98.3 75 18 119/58 95 06/20/16 16:00 98.5 78 18 116/57 96 I/O 06/20/16 06/20/16 06/20/16 06/21/16 06/21/16 06/21/16 07:00 15:00 23:00 07:00 15:00 23:00 Intake Total 100 ml 960 ml 680 ml 480 ml Output Total 750 ml 1451 ml 600 ml 1400 ml Balance -650 ml -491 ml 80 ml -920 ml Intake Oral 100 ml 960 ml 680 ml 480 ml Output Urine Total 750 ml 1450 ml 600 ml 900 ml Stool Total 1 ml 500 ml # Bowel Movements 0 0 Objective Remarks GENERAL: Well-nourished, well-developed AA male patient. In no acute distress CARDIOVASCULAR: Regular rate and rhythm without murmurs, gallops, or rubs. RESPIRATORY: Fair air entry bilaterally. No accessory muscle use. GASTROINTESTINAL: Abdomen soft, non-tender, nondistended. Suprapubic catheter in place. EXTREMITIES: No cyanosis, or edema. NEUROLOGICAL: AAO 3, Paraplegic. Left foot in gauze. A/P Problem List: (1) Decubitus ulcer ICD Code: L89.90 Status: Chronic (2) UTI (urinary tract infection) ICD Code: N39.0 Status: Acute (3) Neurogenic bladder ICD Code: N31.9 Status: Chronic (4) Paraplegia ICD Code: G82.20 Status: Chronic (5) Abdominal pain ICD Code: R10.9 Status: Acute Assessment and Plan Daily update & Mngmt 06/20/16 Management reviewed , Continue current care, awaiting placement Daily update & Mngmt 06/21/16 Watery diarrhea in the colostomy back>> check C. difficile and stool Pain management: We'll increase Dilaudid IVs for breakthrough from twice a day to 3 times a day, continue assessing pain and tapering IV A/P 35-year-old male with PMH of Anxiety, Paraplegia, Neurogenic Bladder s/p Suprapubic Cath, Chronic UTI and Chronic Sacral Decubitus Ulcer who presented for evaluation of sacral wound Stage IV Chronic Sacral Decubitus Ulcer, Present at time of admission. Recent admit 05/02-05/10 for same, s/p eval by ID and IV Abx, arrangements made for Home Health at time of d/c however pt reports difficulty obtaining care, currently homeless. Patient referred to ED by PCP for assistance with chronic wound management. Afebrile, no leukocytosis. Discussed with ID and english as a second language instructor, wounds appear to be healing from previous with no signs of acute infection. Wound culture grew MRSA, likely colonized from superficial swab. No further antibiotics for sacral wounds per ID. Wound care nurse consulted, appreciate recommendations, orders for dressing changes placed. On oral Dilaudid at home for pain control (3 mg?), continue oral Dilaudid 2-4 mg as needed. 0.5 mg IV Dilaudid prn with wound changes. Continue recommendations per plastic surgery. Sacral wounds healing well. UTI: UA with evidence of possible UTI. H/o chronic UTI due to neurogenic bladder w/ indwelling cath. Previous urine culture with Escherichia coli and Proteus. Suprapubic cath changed 06/09. ID consulted, appreciated recommendations. Urine culture with E.coli, continue Augmentin, finish 14 days of treatment (stop date 06/23). Diarrhea in the colostomy bag: Check C. difficile Neurogenic Bladder: Secondary to Paraplegia. Suprapubic Cath exchanged on . Paraplegia: At baseline. Continue home medications. Trapeze setup. PT eval, recommends SNF, case management assisting. DVT Prophylaxis: SCD/Teds. Problem Qualifiers (1) UTI (urinary tract infection): Qualified Code: T83.510A - Urinary tract infection associated with cystostomy catheter, initial encounter (2) Abdominal pain: Qualified Code: R10.13 - Epigastric pain Jose Holley MD Jun 21, 2016 13:00
[2016-06-21] MEDS: HYDROmorphone HCL PF 2 MG/ML VIAL IV PUSH PRN (15:41)
[2016-06-21 18:18] LABS: C. DIFF EPI 027 PRESUMPTIVE NEGATIVE (NEGATIVE); C. DIFF TOXIN PCR NEGATIVE (NEGATIVE)
[2016-06-21 20:00] VITALS: BP 121/58; PULSE 78; RESP 16; TEMP 98.3; O2SAT 98
[2016-06-21] MEDS: CARISOPRODOL 350 MG TAB PO PRN (21:26)
[2016-06-21] MEDS: ALPRAZolam 1 MG TAB PO PRN (21:27)
[2016-06-21] MEDS ORDERED: diphenhydrAMINE HCL 50 MG/ML VIAL IV PUSH ONE (22:45)
[2016-06-22] VITALS: BP 102/51; PULSE 77; RESP 18; TEMP 97.8; O2SAT 97
[2016-06-22 04:49] VITALS: BP 112/56; PULSE 67; RESP 18; TEMP 98.7; O2SAT 98
[2016-06-22] MEDS: HYDROmorphone HCL PF 2 MG/ML VIAL IV PUSH PRN ×2 (05:02→13:17)
[2016-06-22] MEDS: ONDANSETRON HCL 4 MG/2 ML VIAL IVP PRN ×3 (05:39→21:36)
[2016-06-22] MEDS: SODIUM CHLORIDE 0.9% FLUSH 5 ML FLUSH FLUSH PRN (05:39)
[2016-06-22 08:00] VITALS: BP 108/57; PULSE 98; RESP 16; TEMP 97.6; O2SAT 98
[2016-06-22] MEDS: PANTOPRAZOLE SOD 40 MG DELAYED RELEASE TAB PO SCH (09:00)
[2016-06-22] MEDS: SODIUM CHLORIDE 0.9% FLUSH 5 ML FLUSH FLUSH SCH ×2 (09:00→21:28)
[2016-06-22] MEDS: FERROUS SULFATE 325 MG (65 MG ELEMENTAL IRON) TAB PO SCH ×2 (09:00→17:03)
[2016-06-22] MEDS: AMOXICILLIN/CLAVULANATE K 875 MG TAB PO SCH ×2 (09:00→21:28)
[2016-06-22] MEDS: GABAPENTIN 400 MG CAP PO SCH ×3 (09:00→17:03)
[2016-06-22] MEDS: SODIUM HYPOCHLORITE 0.125% 500 ML BTL TOPICAL SCH (09:20)
[2016-06-22 12:00] VITALS: BP 110/58; PULSE 88; RESP 16; TEMP 97.2; O2SAT 97
[2016-06-22] MEDS: CARISOPRODOL 350 MG TAB PO PRN ×2 (13:20→21:28)
--- NOTE | 2016-06-22 15:20 | HHI.PR ---
Subjective Remarks Patient is requesting something for breakthrough pain other than his oral Dilaudid. Objective Vitals Vital Signs Date Time Temp Pulse Resp B/P Pulse Ox O2 Delivery O2 Flow Rate FiO2 06/22/16 14:46 20 06/22/16 14:46 20 06/22/16 12:00 97.2 88 16 110/58 97 06/22/16 11:33 98 Room Air 06/22/16 08:00 97.6 98 16 108/57 98 06/22/16 04:49 98.7 67 18 112/56 98 06/22/16 00:00 97.8 77 18 102/51 97 06/21/16 20:00 Room Air 06/21/16 20:00 98.3 78 16 121/58 98 06/21/16 18:41 100 Room Air I/O 06/21/16 06/21/16 06/21/16 06/22/16 06/22/16 06/22/16 06:59 14:59 22:59 06:59 14:59 22:59 Intake Total 480 ml 840 ml 480 ml 720 ml Output Total 1400 ml 1875 ml 500 ml Balance -920 ml -1035 ml -20 ml 720 ml Intake Oral 480 ml 840 ml 480 ml 720 ml Output Urine Total 900 ml 1275 ml 500 ml Stool Total 500 ml 600 ml # Bowel Movements 0 Objective Remarks GENERAL: This is a well-nourished, well-developed patient, in no apparent distress. CARDIOVASCULAR: Regular rate and rhythm without murmurs, gallops, or rubs. RESPIRATORY: Clear to auscultation. Breath sounds equal bilaterally. No wheezes , rales, or rhonchi. A/P Problem List: (1) Decubitus ulcer ICD Code: L89.90 Status: Chronic (2) UTI (urinary tract infection) ICD Code: N39.0 Status: Acute (3) Neurogenic bladder ICD Code: N31.9 Status: Chronic (4) Paraplegia ICD Code: G82.20 Status: Chronic (5) Abdominal pain ICD Code: R10.9 Status: Acute Assessment and Plan A/P 35-year-old male with PMH of Anxiety, Paraplegia, Neurogenic Bladder s/p Suprapubic Cath, Chronic UTI and Chronic Sacral Decubitus Ulcer who presented for evaluation of sacral wound Stage IV Chronic Sacral Decubitus Ulcer, Present at time of admission. Recent admit 05/02-05/10 for same, s/p eval by ID and IV Abx, arrangements made for Home Health at time of d/c however pt reports difficulty obtaining care, currently homeless. Patient referred to ED by PCP for assistance with chronic wound management. Afebrile, no leukocytosis. Previous hospitalist discussed with ID and emergency veterinary technician, wounds appear to be healing from previous with no signs of acute infection. Wound culture grew MRSA, likely colonized from superficial swab. No further antibiotics for sacral wounds per ID. Wound care nurse consulted, appreciate recommendations, orders for dressing changes placed. On oral Dilaudid at home for pain control (3 mg?), continue oral Dilaudid 2-4 mg as needed. 0.5 mg IV Dilaudid prn with wound changes as needed for pain. Continue recommendations per plastic surgery. Sacral wounds healing well. Add Toradol 30 mg IV every 6 per for breakthrough pain. UTI: UA with evidence of possible UTI. H/o chronic UTI due to neurogenic bladder w/ indwelling cath. Previous urine culture with Escherichia coli and Proteus. Suprapubic cath changed 06/09. ID consulted, appreciated recommendations. Urine culture with E.coli, continue Augmentin, finish 14 days of treatment (stop date tomorrow 06/23). Diarrhea in the colostomy bag: Stools improving, C. difficile negative Neurogenic Bladder: Secondary to Paraplegia. Suprapubic Cath exchanged on . Paraplegia: At baseline. Continue home medications. Trapeze setup. PT eval, recommends SNF, case management assisting. DVT Prophylaxis: SCD/Teds. Discharge Planning Await [facility] facility placement Problem Qualifiers (1) UTI (urinary tract infection): Qualified Code: T83.510A - Urinary tract infection associated with cystostomy catheter, initial encounter (2) Abdominal pain: Qualified Code: R10.13 - Epigastric pain Zunilda Daly MD Jun 22, 2016 15:20
[2016-06-22 16:00] VITALS: BP 120/57; PULSE 84; RESP 18; TEMP 98.1; O2SAT 96
[2016-06-22] MEDS: HYDROmorphone HCL 4 MG TAB PO PRN (17:03)
[2016-06-22] MEDS: KETOROLAC TROMETHAMINE 30 MG/ML (IVP) VIAL IV PUSH PRN (19:10)
[2016-06-22 20:00] VITALS: BP 113/63; PULSE 75; RESP 16; TEMP 97.5; O2SAT 97
[2016-06-22] MEDS: ALPRAZolam 1 MG TAB PO PRN (21:28)
[2016-06-23] VITALS: BP 115/55; PULSE 79; RESP 16; TEMP 97.5; O2SAT 98
[2016-06-23] MEDS: SODIUM CHLORIDE 0.9% FLUSH 5 ML FLUSH FLUSH PRN (01:57)
[2016-06-23] MEDS: KETOROLAC TROMETHAMINE 30 MG/ML (IVP) VIAL IV PUSH PRN ×3 (01:57→22:06)
[2016-06-23 08:00] VITALS: BP 108/56; PULSE 62; RESP 20; TEMP 97.3; O2SAT 99
[2016-06-23] MEDS: AMOXICILLIN/CLAVULANATE K 875 MG TAB PO SCH (08:56)
[2016-06-23] MEDS: FERROUS SULFATE 325 MG (65 MG ELEMENTAL IRON) TAB PO SCH ×2 (08:56→17:15)
[2016-06-23] MEDS: GABAPENTIN 400 MG CAP PO SCH ×3 (08:56→17:15)
[2016-06-23] MEDS: PANTOPRAZOLE SOD 40 MG DELAYED RELEASE TAB PO SCH (08:56)
[2016-06-23] MEDS: SODIUM CHLORIDE 0.9% FLUSH 5 ML FLUSH FLUSH SCH (08:57)
[2016-06-23] MEDS: SODIUM HYPOCHLORITE 0.125% 500 ML BTL TOPICAL SCH (08:59)
[2016-06-23] MEDS: HYDROmorphone HCL 4 MG TAB PO PRN ×3 (09:02→22:02)
[2016-06-23] MEDS: HYDROmorphone HCL PF 2 MG/ML VIAL IV PUSH PRN (11:05)
[2016-06-23 12:00] VITALS: BP 124/68; PULSE 87; RESP 20; TEMP 97.4; O2SAT 96
[2016-06-23] MEDS: ONDANSETRON HCL 4 MG/2 ML VIAL IVP PRN (12:18)
--- NOTE | 2016-06-23 12:49 | HHI.PR ---
Subjective Remarks Doing okay. No other concerns at this time. Objective Vitals Vital Signs Date Time Temp Pulse Resp B/P Pulse Ox O2 Delivery O2 Flow Rate FiO2 06/23/16 12:00 97.4 87 20 124/68 96 06/23/16 08:00 97.3 62 20 108/56 99 06/23/16 08:00 Room Air 06/23/16 03:11 Room Air 06/23/16 00:00 97.5 79 16 115/55 98 06/22/16 20:00 97.5 75 16 113/63 97 06/22/16 16:00 98.1 84 18 120/57 96 06/22/16 14:46 20 06/22/16 14:46 20 I/O 06/22/16 06/22/16 06/22/16 06/23/16 06/23/16 06/23/16 07:00 15:00 23:00 07:00 15:00 23:00 Intake Total 720 ml 480 ml 360 ml Output Total 500 ml 750 ml Balance 720 ml -20 ml -390 ml Intake Oral 720 ml 480 ml 360 ml IV Total 0 ml Output Urine Total 300 ml 600 ml Stool Total 200 ml 150 ml Objective Remarks GENERAL: This is a well-nourished, well-developed patient, in no apparent distress. CARDIOVASCULAR: Regular rate and rhythm without murmurs, gallops, or rubs. RESPIRATORY: Clear to auscultation. Breath sounds equal bilaterally. No wheezes , rales, or rhonchi. A/P Problem List: (1) Decubitus ulcer ICD Code: L89.90 Status: Chronic (2) UTI (urinary tract infection) ICD Code: N39.0 Status: Acute (3) Neurogenic bladder ICD Code: N31.9 Status: Chronic (4) Paraplegia ICD Code: G82.20 Status: Chronic (5) Abdominal pain ICD Code: R10.9 Status: Acute Assessment and Plan A/P 35-year-old male with PMH of Anxiety, Paraplegia, Neurogenic Bladder s/p Suprapubic Cath, Chronic UTI and Chronic Sacral Decubitus Ulcer who presented for evaluation of sacral wound Stage IV Chronic Sacral Decubitus Ulcer, Present at time of admission. Recent admit 05/02-05/10 for same, s/p eval by ID and IV Abx, arrangements made for Home Health at time of d/c however pt reports difficulty obtaining care, currently homeless. Patient referred to ED by PCP for assistance with chronic wound management. Afebrile, no leukocytosis. Previous hospitalist discussed with ID and car sweeper, wounds appear to be healing from previous with no signs of acute infection. Wound culture grew MRSA, likely colonized from superficial swab. No further antibiotics for sacral wounds per ID. Wound care nurse consulted, appreciate recommendations, orders for dressing changes placed. On oral Dilaudid at home for pain control, continue oral Dilaudid 2-4 mg as needed. 0.5 mg IV Dilaudid prn with wound changes as needed for pain. Continue recommendations per plastic surgery. Sacral wounds healing well. Add Toradol 30 mg IV every 6 per for breakthrough pain yesterday. UTI: UA with evidence of possible UTI. H/o chronic UTI due to neurogenic bladder w/ indwelling cath. Previous urine culture with Escherichia coli and Proteus. Suprapubic cath changed 06/09. ID consulted, appreciated recommendations. Urine culture with E.coli, continue Augmentin, finish 14 days of treatment (stop date 06/23, today). Diarrhea in the colostomy bag: Stools improving, C. difficile negative Neurogenic Bladder: Secondary to Paraplegia. Suprapubic Cath exchanged on . Paraplegia: At baseline. Continue home medications. Trapeze setup. PT eyal, recommends SNF, case management assisting. DVT Prophylaxis: SCD/Teds. Continue current management treatments as above Discharge Planning Await alf facility placement Problem Qualifiers (1) UTI (urinary tract infection): Qualified Code: T83.510A - Urinary tract infection associated with cystostomy catheter, initial encounter (2) Abdominal pain: Qualified Code: R10.13 - Epigastric pain Zunilda Daly MD Jun 23, 2016 12:49
[2016-06-23] MEDS: diphenhydrAMINE HCL 25 MG CAP PO PRN ×2 (15:12→22:05)
[2016-06-23 16:00] VITALS: BP 117/59; PULSE 66; RESP 20; TEMP 97.2; O2SAT 97
[2016-06-23 20:00] VITALS: BP 128/61; PULSE 18; RESP 18; TEMP 98; O2SAT 96
[2016-06-23] MEDS: ALPRAZolam 1 MG TAB PO PRN (22:00)
[2016-06-24] VITALS: BP 123/57; PULSE 77; RESP 18; TEMP 98.3; O2SAT 97
[2016-06-24] MEDS: CARISOPRODOL 350 MG TAB PO PRN ×3 (01:09→23:56)
[2016-06-24] MEDS: HYDROmorphone HCL PF 2 MG/ML VIAL IV PUSH PRN ×3 (01:34→23:36)
[2016-06-24 04:00] VITALS: BP 124/70; PULSE 89; RESP 20; TEMP 97.6; O2SAT 98
[2016-06-24 08:00] VITALS: BP 117/55; PULSE 69; RESP 20; TEMP 97.5; O2SAT 98
[2016-06-24] MEDS: SODIUM HYPOCHLORITE 0.125% 500 ML BTL TOPICAL SCH (09:00)
[2016-06-24] MEDS: ALPRAZolam 1 MG TAB PO PRN ×2 (09:01→17:41)
[2016-06-24] MEDS: KETOROLAC TROMETHAMINE 30 MG/ML (IVP) VIAL IV PUSH PRN ×2 (09:01→21:11)
[2016-06-24] MEDS: GABAPENTIN 400 MG CAP PO SCH ×3 (09:02→18:00)
[2016-06-24] MEDS: PANTOPRAZOLE SOD 40 MG DELAYED RELEASE TAB PO SCH (09:02)
[2016-06-24] MEDS: FERROUS SULFATE 325 MG (65 MG ELEMENTAL IRON) TAB PO SCH ×2 (09:02→17:41)
[2016-06-24] MEDS: ENOXAPARIN SODIUM 40 MG/0.4 ML SYRINGE SQ SCH (09:15)
--- NOTE | 2016-06-24 09:17 | HHI.PR ---
Subjective Remarks Pt doing well. pain controlled. denies any chest pain/sob/n/v. RN at bedside dispensing meds. no concerns at this time. Objective Vitals Vital Signs Date Time Temp Pulse Resp B/P Pulse Ox O2 Delivery O2 Flow Rate FiO2 06/24/16 04:00 97.6 89 20 124/70 98 06/24/16 00:00 98.3 77 18 123/57 97 06/23/16 20:00 98.0 18 18 128/61 96 06/23/16 16:00 97.2 66 20 117/59 97 06/23/16 12:00 97.4 87 20 124/68 96 I/O 06/23/16 06/23/16 06/23/16 06/24/16 06/24/16 06/24/16 07:00 15:00 23:00 07:00 15:00 23:00 Intake Total 360 ml 960 ml 800 ml 800 ml Output Total 750 ml 1525 ml 1100 ml 700 ml Balance -390 ml -565 ml -300 ml 100 ml Intake Oral 360 ml 960 ml 800 ml 800 ml Output Urine Total 600 ml 1525 ml 600 ml 700 ml Stool Total 150 ml 500 ml # Bowel Movements 1 0 Imaging Last Impressions Chest X-Ray 06/08/16 1341 Signed Impressions: Service Date/Time: May 14:46 - CONCLUSION: No acute cardiopulmonary abnormality is identified. Luis Felipe Guerra MD Abdomen/Pelvis CT 06/08/16 1341 Signed Impressions: Service Date/Time: May 18:40 - CONCLUSION: 1. The balloon portion of the suprapubic catheter is inside the prosthetic urethra. 2. Probable hepatic hemangioma. Ryanne Maya MD Objective Remarks GENERAL: This is a well-nourished, well-developed patient, in no apparent distress. CARDIOVASCULAR: Regular rate and rhythm without murmurs RESPIRATORY: Clear to auscultation. Breath sounds equal bilaterally. No wheezes Abdomen: soft, NT, no guarding or rebound EXT: able to roll himself to the side using his upper extremities. A/P Problem List: (1) Decubitus ulcer ICD Code: L89.90 Status: Chronic (2) UTI (urinary tract infection) ICD Code: N39.0 Status: Acute (3) Neurogenic bladder ICD Code: N31.9 Status: Chronic (4) Paraplegia ICD Code: G82.20 Status: Chronic (5) Abdominal pain ICD Code: R10.9 Status: Acute Assessment and Plan 35-year-old male with PMH of Anxiety, Paraplegia, Neurogenic Bladder s/p Suprapubic Cath, Chronic UTI and Chronic Sacral Decubitus Ulcer who presented for evaluation of sacral wound Stage IV Chronic Sacral Decubitus Ulcer, Present at time of admission. Recent admit 05/02-05/10 for same, s/p eval by ID and IV Abx, arrangements made for Home Health at time of d/c however pt reports difficulty obtaining care, currently homeless. Patient referred to ED by PCP for assistance with chronic wound management. Afebrile, no leukocytosis. Previous hospitalist discussed with ID and strapping machine operator, wounds appear to be healing from previous with no signs of acute infection. Wound culture grew MRSA, likely colonized from superficial swab. No further antibiotics for sacral wounds per ID. Wound care nurse consulted, appreciate recommendations, orders for dressing changes placed. On oral Dilaudid at home for pain control, continue oral Dilaudid 2-4 mg as needed. 0.5 mg IV Dilaudid prn with wound changes as needed for pain. Continue recommendations per plastic surgery. Sacral wounds healing well. Add Toradol 30 mg IV every 6 per for breakthrough pain 06/22/16. UTI: UA with evidence of possible UTI. H/o chronic UTI due to neurogenic bladder w/ indwelling cath. Previous urine culture with Escherichia coli and Proteus. Suprapubic cath changed 06/09. ID consulted, appreciated recommendations. Urine culture with E.coli, continue Augmentin, finish 14 days of treatment (stop date 06/23). Diarrhea in the colostomy bag: Stools improving, C. difficile negative Neurogenic Bladder: Secondary to Paraplegia. Suprapubic Cath exchanged on . Paraplegia: At baseline. Continue home medications. Trapeze setup. PT eval, recommends SNF, case management assisting. DVT Prophylaxis: SCD/Teds/lovenox. Discharge Planning awaiting SNF placement. CM assisting Problem Qualifiers (1) UTI (urinary tract infection): Qualified Code: T83.510A - Urinary tract infection associated with cystostomy catheter, initial encounter (2) Abdominal pain: Qualified Code: R10.13 - Epigastric pain Shala Bingham MD Jun 24, 2016 09:17
[2016-06-24 12:00] VITALS: BP 126/57; PULSE 73; RESP 20; TEMP 97.3; O2SAT 96
[2016-06-24] MEDS: diphenhydrAMINE HCL 25 MG CAP PO PRN (13:35)
[2016-06-24 16:00] VITALS: BP 116/56; PULSE 77; RESP 20; TEMP 97.6; O2SAT 97
[2016-06-24] MEDS: HYDROmorphone HCL 4 MG TAB PO PRN ×2 (17:42→22:17)
[2016-06-24 20:00] VITALS: BP 116/56; PULSE 76; RESP 18; TEMP 98; O2SAT 97
[2016-06-24] MEDS: SODIUM CHLORIDE 0.9% FLUSH 5 ML FLUSH FLUSH SCH ×2 (21:00→21:14)
[2016-06-24] MEDS: ONDANSETRON HCL 4 MG/2 ML VIAL IVP PRN (22:17)
[2016-06-24] MEDS: SODIUM CHLORIDE 0.9% FLUSH 5 ML FLUSH FLUSH PRN (23:37)
[2016-06-25] VITALS: BP 115/60; PULSE 80; RESP 16; TEMP 98; O2SAT 95
[2016-06-25] MEDS: HYDROmorphone HCL 4 MG TAB PO PRN ×3 (04:25→23:11)
[2016-06-25 04:33] VITALS: BP 116/58; PULSE 78; RESP 18; TEMP 98.2; O2SAT 97
[2016-06-25] MEDS: KETOROLAC TROMETHAMINE 30 MG/ML (IVP) VIAL IV PUSH PRN ×2 (06:45→17:56)
[2016-06-25] MEDS: SODIUM CHLORIDE 0.9% FLUSH 5 ML FLUSH FLUSH PRN (06:46)
[2016-06-25 08:00] VITALS: BP 115/64; PULSE 76; RESP 20; TEMP 97.9; O2SAT 98
[2016-06-25] MEDS: SODIUM HYPOCHLORITE 0.125% 500 ML BTL TOPICAL SCH (09:00)
[2016-06-25] MEDS: SODIUM CHLORIDE 0.9% FLUSH 5 ML FLUSH FLUSH SCH ×2 (09:00→23:11)
[2016-06-25] MEDS: ENOXAPARIN SODIUM 40 MG/0.4 ML SYRINGE SQ SCH (10:28)
[2016-06-25] MEDS: GABAPENTIN 400 MG CAP PO SCH ×3 (10:28→17:56)
[2016-06-25] MEDS: ALPRAZolam 1 MG TAB PO PRN (10:28)
[2016-06-25] MEDS: PANTOPRAZOLE SOD 40 MG DELAYED RELEASE TAB PO SCH (10:29)
[2016-06-25] MEDS: FERROUS SULFATE 325 MG (65 MG ELEMENTAL IRON) TAB PO SCH ×2 (10:29→17:56)
--- NOTE | 2016-06-25 10:57 | HHI.PR ---
Subjective Remarks states he has some pain but RN just gave him some pain meds. no CP/SOB/N/V Objective Vitals Vital Signs Date Time Temp Pulse Resp B/P Pulse Ox O2 Delivery O2 Flow Rate FiO2 06/25/16 08:00 97.9 76 20 115/64 98 06/25/16 04:33 98.2 78 18 116/58 97 06/25/16 00:00 98.0 80 16 115/60 95 06/24/16 21:16 Room Air 06/24/16 20:00 98.0 76 18 116/56 97 06/24/16 16:00 97.6 77 20 116/56 97 06/24/16 12:00 97.3 73 20 126/57 96 I/O 06/24/16 06/24/16 06/24/16 06/25/16 06/25/16 06/25/16 07:00 15:00 23:00 07:00 15:00 23:00 Intake Total 800 ml 720 ml 620 ml Output Total 700 ml 1325 ml 1300 ml Balance 100 ml -605 ml -680 ml Intake Oral 800 ml 720 ml 620 ml Output Urine Total 700 ml 1325 ml 1000 ml Stool Total 300 ml # Bowel Movements 0 1 1 Imaging Last Impressions Chest X-Ray 06/08/16 1341 Signed Impressions: Service Date/Time: May 14:46 - CONCLUSION: No acute cardiopulmonary abnormality is identified. Luis Felipe Guerra MD Abdomen/Pelvis CT 06/08/16 1341 Signed Impressions: Service Date/Time: May 18:40 - CONCLUSION: 1. The balloon portion of the suprapubic catheter is inside the prosthetic urethra. 2. Probable hepatic hemangioma. Ryanne Maya MD Objective Remarks GENERAL: This is a well-nourished, well-developed patient, in no apparent distress. CARDIOVASCULAR: Regular rate and rhythm without murmurs RESPIRATORY: Clear to auscultation. Breath sounds equal bilaterally. No wheezes Abdomen: soft, NT, no guarding or rebound EXT: able to roll himself to the side using his upper extremities. A/P Problem List: (1) Decubitus ulcer ICD Code: L89.90 Status: Chronic (2) UTI (urinary tract infection) ICD Code: N39.0 Status: Acute (3) Neurogenic bladder ICD Code: N31.9 Status: Chronic (4) Paraplegia ICD Code: G82.20 Status: Chronic (5) Abdominal pain ICD Code: R10.9 Status: Acute Assessment and Plan 35-year-old male with PMH of Anxiety, Paraplegia, Neurogenic Bladder s/p Suprapubic Cath, Chronic UTI and Chronic Sacral Decubitus Ulcer who presented for evaluation of sacral wound update from 06/25/16: no changes in current management. Stage IV Chronic Sacral Decubitus Ulcer, Present at time of admission. Recent admit 05/02-05/10 for same, s/p eval by ID and IV Abx, arrangements made for Home Health at time of d/c however pt reports difficulty obtaining care, currently homeless. Patient referred to ED by PCP for assistance with chronic wound management. Afebrile, no leukocytosis. Previous hospitalist discussed with ID and account processor, wounds appear to be healing from previous with no signs of acute infection. Wound culture grew MRSA, likely colonized from superficial swab. No further antibiotics for sacral wounds per ID. Wound care nurse consulted, appreciate recommendations, orders for dressing changes placed. On oral Dilaudid at home for pain control, continue oral Dilaudid 2-4 mg as needed. 0.5 mg IV Dilaudid prn with wound changes as needed for pain. Continue recommendations per plastic surgery. Sacral wounds healing well. Add Toradol 30 mg IV every 6 per for breakthrough pain 06/22/16. UTI: UA with evidence of possible UTI. H/o chronic UTI due to neurogenic bladder w/ indwelling cath. Previous urine culture with Escherichia coli and Proteus. Suprapubic cath changed 06/09. ID consulted, appreciated recommendations. Urine culture with E.coli, continue Augmentin, finish 14 days of treatment (stop date 06/23). Diarrhea in the colostomy bag: Stools improving, C. difficile negative Neurogenic Bladder: Secondary to Paraplegia. Suprapubic Cath exchanged on . Paraplegia: At baseline. Continue home medications. Trapeze setup. PT eval, recommends SNF, case management assisting. DVT Prophylaxis: SCD/Teds/lovenox. Discharge Planning awaiting SNF placement. CM assisting Problem Qualifiers (1) UTI (urinary tract infection): Qualified Code: T83.510A - Urinary tract infection associated with cystostomy catheter, initial encounter (2) Abdominal pain: Qualified Code: R10.13 - Epigastric pain Shala Bignham MD Jun 25, 2016 10:57
[2016-06-25 12:00] VITALS: BP 119/59; PULSE 76; RESP 20; TEMP 98.4; O2SAT 97
[2016-06-25] MEDS: ONDANSETRON HCL 4 MG/2 ML VIAL IVP PRN (13:50)
[2016-06-25] MEDS: HYDROmorphone HCL PF 2 MG/ML VIAL IV PUSH PRN (13:51)
[2016-06-25 16:00] VITALS: BP 132/65; PULSE 83; RESP 20; TEMP 98.2; O2SAT 98
[2016-06-25 20:00] VITALS: BP 106/50; PULSE 76; RESP 18; TEMP 98.7; O2SAT 97
[2016-06-26] VITALS: BP 121/62; PULSE 85; RESP 20; TEMP 98.2; O2SAT 93
[2016-06-26] MEDS: HYDROmorphone HCL PF 2 MG/ML VIAL IV PUSH PRN ×2 (00:54→10:24)
[2016-06-26] MEDS: SODIUM CHLORIDE 0.9% FLUSH 5 ML FLUSH FLUSH PRN ×2 (00:55→04:03)
[2016-06-26] MEDS: diphenhydrAMINE HCL 25 MG CAP PO PRN ×2 (01:15→22:21)
[2016-06-26] MEDS: ONDANSETRON HCL 4 MG/2 ML VIAL IVP PRN ×2 (01:15→22:41)
[2016-06-26 04:00] VITALS: BP 118/63; PULSE 85; RESP 20; TEMP 97.7; O2SAT 95
[2016-06-26] MEDS: ALPRAZolam 1 MG TAB PO PRN ×2 (04:02→22:21)
[2016-06-26] MEDS: KETOROLAC TROMETHAMINE 30 MG/ML (IVP) VIAL IV PUSH PRN ×3 (04:02→22:21)
[2016-06-26 08:00] VITALS: BP 116/61; PULSE 80; RESP 18; TEMP 97; O2SAT 98
[2016-06-26] MEDS: PANTOPRAZOLE SOD 40 MG DELAYED RELEASE TAB PO SCH (08:46)
[2016-06-26] MEDS: GABAPENTIN 400 MG CAP PO SCH ×3 (08:46→17:23)
[2016-06-26] MEDS: SODIUM CHLORIDE 0.9% FLUSH 5 ML FLUSH FLUSH SCH ×2 (08:47→22:11)
[2016-06-26] MEDS: FERROUS SULFATE 325 MG (65 MG ELEMENTAL IRON) TAB PO SCH ×2 (08:47→17:23)
[2016-06-26] MEDS: SODIUM HYPOCHLORITE 0.125% 500 ML BTL TOPICAL SCH (08:47)
[2016-06-26] MEDS: ENOXAPARIN SODIUM 40 MG/0.4 ML SYRINGE SQ SCH (10:24)
[2016-06-26 12:00] VITALS: BP 112/56; PULSE 87; RESP 18; TEMP 98.1; O2SAT 96
--- NOTE | 2016-06-26 13:27 | HHI.PR ---
Subjective Remarks Pt evaluated around noon time. Was asleep when I came in but wakes up. No CP/SOB /N/V no concerns at this time. Objective Vitals Vital Signs Date Time Temp Pulse Resp B/P Pulse Ox O2 Delivery O2 Flow Rate FiO2 06/26/16 12:00 98.1 87 18 112/56 96 06/26/16 08:00 97.0 80 18 116/61 98 06/26/16 04:00 97.7 85 20 118/63 95 06/26/16 00:00 98.2 85 20 121/62 93 06/25/16 22:51 Room Air 06/25/16 20:00 98.7 76 18 106/50 97 06/25/16 16:00 98.2 83 20 132/65 98 I/O 06/25/16 06/25/16 06/25/16 06/26/16 06/26/16 06/26/16 07:00 15:00 23:00 07:00 15:00 23:00 Intake Total 620 ml 600 ml 360 ml 920 ml Output Total 1300 ml 3375 ml 0 ml 650 ml Balance -680 ml -2775 ml 360 ml 270 ml Intake Oral 620 ml 600 ml 360 ml 920 ml Output Urine Total 1000 ml 3375 ml 0 ml 650 ml Stool Total 300 ml 0 ml # Bowel Movements 1 1 0 Imaging Last Impressions Chest X-Ray 06/08/161 Signed Impressions: Service Date/Time: May 14:46 - CONCLUSION: No acute cardiopulmonary abnormality is identified. Luis Felipe Guerra MD Abdomen/Pelvis CT 06/08/16 1341 Signed Impressions: Service Date/Time: May 18:40 - CONCLUSION: 1. The balloon portion of the suprapubic catheter is inside the prosthetic urethra. 2. Probable hepatic hemangioma. Ryanne Maya MD Objective Remarks GENERAL: This is a well-nourished, well-developed patient, in no apparent distress. CARDIOVASCULAR: Regular rate and rhythm without murmurs RESPIRATORY: Clear to auscultation. Breath sounds equal bilaterally. No wheezes Abdomen: soft, NT, no guarding or rebound A/P Problem List: (1) Decubitus ulcer ICD Code: L89.90 Status: Chronic (2) UTI (urinary tract infection) ICD Code: N39.0 Status: Acute (3) Neurogenic bladder ICD Code: N31.9 Status: Chronic (4) Paraplegia ICD Code: G82.20 Status: Chronic (5) Abdominal pain ICD Code: R10.9 Status: Acute Assessment and Plan 35-year-old male with PMH of Anxiety, Paraplegia, Neurogenic Bladder s/p Suprapubic Cath, Chronic UTI and Chronic Sacral Decubitus Ulcer who presented for evaluation of sacral wound update from 06/25/16: no changes in current management. Stage IV Chronic Sacral Decubitus Ulcer, Present at time of admission. Recent admit 05/02-05/10 for same, s/p eval by ID and IV Abx, arrangements made for Home Health at time of d/c however pt reports difficulty obtaining care, currently homeless. Patient referred to ED by PCP for assistance with chronic wound management. Afebrile, no leukocytosis. Previous hospitalist discussed with ID and blogs manager, wounds appear to be healing from previous with no signs of acute infection. Wound culture grew MRSA, likely colonized from superficial swab. No further antibiotics for sacral wounds per ID. Wound care nurse consulted, appreciate recommendations, orders for dressing changes placed. On oral Dilaudid at home for pain control, continue oral Dilaudid 2-4 mg as needed. 0.5 mg IV Dilaudid prn with wound changes as needed for pain. Continue recommendations per plastic surgery. Sacral wounds healing well. Add Toradol 30 mg IV every 6 per for breakthrough pain 06/22/16. UTI: UA with evidence of possible UTI. H/o chronic UTI due to neurogenic bladder w/ indwelling cath. Previous urine culture with Escherichia coli and Proteus. Suprapubic cath changed 06/09. ID consulted, appreciated recommendations. Urine culture with E.coli, continue Augmentin, finish 14 days of treatment (stop date 06/23). Diarrhea in the colostomy bag: Stools improving, C. difficile negative Neurogenic Bladder: Secondary to Paraplegia. Suprapubic Cath exchanged on . Paraplegia: At baseline. Continue home medications. Trapeze setup. PT eval, recommends SNF, case management assisting. DVT Prophylaxis: SCD/Teds/lovenox. Discharge Planning awaiting SNF placement. CM assisting but apparently unable to find placement at this time. Problem Qualifiers (1) UTI (urinary tract infection): Qualified Code: T83.510A - Urinary tract infection associated with cystostomy catheter, initial encounter (2) Abdominal pain: Qualified Code: R10.13 - Epigastric pain Shala Bingham MD Jun 26, 2016 13:27
[2016-06-26] MEDS: HYDROmorphone HCL 4 MG TAB PO PRN (13:32)
[2016-06-26 16:00] VITALS: BP 116/60; PULSE 85; RESP 16; TEMP 98; O2SAT 98
[2016-06-27] VITALS (7 sets, daily range): BP systolic 96–136; BP diastolic 54–79; PULSE 60–97; RESP 18–20; TEMP 96.7–98.5; O2SAT 97–98
[2016-06-27] MEDS: HYDROmorphone HCL PF 2 MG/ML VIAL IV PUSH PRN ×3 (00:05→23:15)
[2016-06-27] MEDS: CARISOPRODOL 350 MG TAB PO PRN ×2 (01:09→16:50)
[2016-06-27] MEDS: HYDROmorphone HCL 4 MG TAB PO PRN ×3 (03:49→20:59)
[2016-06-27] MEDS: PANTOPRAZOLE SOD 40 MG DELAYED RELEASE TAB PO SCH (07:45)
[2016-06-27] MEDS: FERROUS SULFATE 325 MG (65 MG ELEMENTAL IRON) TAB PO SCH ×2 (07:45→17:02)
[2016-06-27] MEDS: SODIUM CHLORIDE 0.9% FLUSH 5 ML FLUSH FLUSH SCH ×2 (07:46→20:59)
[2016-06-27] MEDS: GABAPENTIN 400 MG CAP PO SCH ×3 (07:46→17:03)
[2016-06-27] MEDS: SODIUM HYPOCHLORITE 0.125% 500 ML BTL TOPICAL SCH (07:49)
[2016-06-27] MEDS: ENOXAPARIN SODIUM 40 MG/0.4 ML SYRINGE SQ SCH (09:05)
[2016-06-27] MEDS: ONDANSETRON HCL 4 MG/2 ML VIAL IVP PRN ×2 (09:31→16:50)
--- NOTE | 2016-06-27 13:45 | HHI.PR ---
Subjective Remarks Pt has no complaints today. tolerating a diet. watching TV. Objective Vitals Vital Signs Date Time Temp Pulse Resp B/P Pulse Ox O2 Delivery O2 Flow Rate FiO2 06/27/16 12:01 97.1 87 20 101/59 98 06/27/16 09:46 Room Air 06/27/16 09:04 72 126/67 06/27/16 08:02 97.4 67 19 98/57 97 06/27/16 04:00 97.7 60 18 96/54 98 06/27/16 00:00 98.5 75 19 136/79 97 06/26/16 21:30 Room Air 06/26/16 16:00 98.0 85 16 116/60 98 I/O 06/26/16 06/26/16 06/26/16 06/27/16 06/27/16 06/27/16 07:00 15:00 23:00 07:00 15:00 23:00 Intake Total 920 ml 960 ml 902 ml 500 ml Output Total 650 ml 900 ml 1700 ml 1900 ml Balance 270 ml 60 ml -798 ml -1400 ml Intake Oral 920 ml 960 ml 900 ml 500 ml IV Total 2 ml Output Urine Total 650 ml 900 ml 1400 ml 1900 ml Stool Total 300 ml # Bowel Movements 0 2 Imaging Last Impressions Chest X-Ray 06/08/16 1341 Signed Impressions: Service Date/Time: May 14:46 - CONCLUSION: No acute cardiopulmonary abnormality is identified. Luis Felipe Guerra MD Abdomen/Pelvis CT 06/08/16 1341 Signed Impressions: Service Date/Time: May 18:40 - CONCLUSION: 1. The balloon portion of the suprapubic catheter is inside the prosthetic urethra. 2. Probable hepatic hemangioma. Ryanne Maya MD Objective Remarks GENERAL: This is a well-nourished, well-developed patient, in no apparent distress. CARDIOVASCULAR: Regular rate and rhythm without murmurs RESPIRATORY: Clear to auscultation. Breath sounds equal bilaterally. No wheezes Abdomen: soft, NT, no guarding or rebound A/P Problem List: (1) Decubitus ulcer ICD Code: L89.90 Status: Chronic (2) UTI (urinary tract infection) ICD Code: N39.0 Status: Acute (3) Neurogenic bladder ICD Code: N31.9 Status: Chronic (4) Paraplegia ICD Code: G82.20 Status: Chronic (5) Abdominal pain ICD Code: R10.9 Status: Acute Assessment and Plan 35-year-old male with PMH of Anxiety, Paraplegia, Neurogenic Bladder s/p Suprapubic Cath, Chronic UTI and Chronic Sacral Decubitus Ulcer who presented for evaluation of sacral wound update from 06/27/16: no changes in current management. Stage IV Chronic Sacral Decubitus Ulcer, Present at time of admission. Recent admit 05/02-05/10 for same, s/p eval by ID and IV Abx, arrangements made for Home Health at time of d/c however pt reports difficulty obtaining care, currently homeless. Patient referred to ED by PCP for assistance with chronic wound management. Afebrile, no leukocytosis. Previous hospitalist discussed with ID and assistant professor of art, wounds appear to be healing from previous with no signs of acute infection. Wound culture grew MRSA, likely colonized from superficial swab. No further antibiotics for sacral wounds per ID. Wound care nurse consulted, appreciate recommendations, orders for dressing changes placed. On oral Dilaudid at home for pain control, continue oral Dilaudid 2-4 mg as needed. 0.5 mg IV Dilaudid prn with wound changes as needed for pain. Continue recommendations per plastic surgery. Sacral wounds healing well. Add Toradol 30 mg IV every 6 per for breakthrough pain 06/22/16. UTI: UA with evidence of possible UTI. H/o chronic UTI due to neurogenic bladder w/ indwelling cath. Previous urine culture with Escherichia coli and Proteus. Suprapubic cath changed 06/09. ID consulted, appreciated recommendations. Urine culture with E.coli, continue Augmentin, finish 14 days of treatment (stop date 06/23). Diarrhea in the colostomy bag: Stools improving, C. difficile negative Neurogenic Bladder: Secondary to Paraplegia. Suprapubic Cath exchanged on . Paraplegia: At baseline. Continue home medications. Trapeze setup. PT eval, recommends SNF, case management assisting. DVT Prophylaxis: SCD/Teds/lovenox. Discharge Planning awaiting SNF placement. CM assisting but apparently unable to find placement at this time. Problem Qualifiers (1) UTI (urinary tract infection): Qualified Code: T83.510A - Urinary tract infection associated with cystostomy catheter, initial encounter (2) Abdominal pain: Qualified Code: R10.13 - Epigastric pain Shala Bingham MD Jun 27, 2016 13:44
[2016-06-28 02:46] VITALS: BP 130/72; PULSE 92; RESP 16; TEMP 98.2; O2SAT 96
[2016-06-28] MEDS: HYDROmorphone HCL PF 2 MG/ML VIAL IV PUSH PRN ×2 (03:25→11:40)
[2016-06-28 04:06] VITALS: BP 123/60; PULSE 73; RESP 18; TEMP 97.8; O2SAT 97
[2016-06-28 08:00] VITALS: BP 102/61; PULSE 85; RESP 18; TEMP 97.9; O2SAT 96
[2016-06-28] MEDS: PANTOPRAZOLE SOD 40 MG DELAYED RELEASE TAB PO SCH (08:07)
[2016-06-28] MEDS: FERROUS SULFATE 325 MG (65 MG ELEMENTAL IRON) TAB PO SCH ×2 (08:07→18:08)
[2016-06-28] MEDS: HYDROmorphone HCL 4 MG TAB PO PRN ×3 (08:08→18:08)
[2016-06-28] MEDS: ENOXAPARIN SODIUM 40 MG/0.4 ML SYRINGE SQ SCH (08:08)
[2016-06-28] MEDS: SODIUM CHLORIDE 0.9% FLUSH 5 ML FLUSH FLUSH SCH ×2 (08:08→23:04)
[2016-06-28] MEDS: GABAPENTIN 400 MG CAP PO SCH ×3 (08:08→18:08)
[2016-06-28] MEDS: SODIUM CHLORIDE 0.9% FLUSH 5 ML FLUSH FLUSH PRN (11:40)
[2016-06-28] MEDS: SODIUM HYPOCHLORITE 0.125% 500 ML BTL TOPICAL SCH (11:40)
[2016-06-28 12:00] VITALS: BP 121/78; PULSE 73; RESP 18; TEMP 98.1; O2SAT 98
[2016-06-28] MEDS: ONDANSETRON HCL 4 MG/2 ML VIAL IVP PRN (12:25)
[2016-06-28] MEDS: ALPRAZolam 1 MG TAB PO PRN ×2 (14:12→23:04)
--- NOTE | 2016-06-28 15:56 | HHI.PR ---
Subjective Remarks asleep when I came in, easily arousable. no complaints. Objective Vitals Vital Signs Date Time Temp Pulse Resp B/P Pulse Ox O2 Delivery O2 Flow Rate FiO2 06/28/16 12:00 98.1 73 18 121/78 98 06/28/16 08:00 Room Air 06/28/16 08:00 97.9 85 18 102/61 96 06/28/16 04:06 97.8 73 18 123/60 97 06/28/16 02:46 98.2 92 16 130/72 96 06/27/16 22:40 97.8 97 18 135/63 97 06/27/16 20:45 Room Air 06/27/16 16:02 96.7 77 19 101/59 97 I/O 06/27/16 06/27/16 06/27/16 06/28/16 06/28/16 06/28/16 06:59 14:59 22:59 06:59 14:59 22:59 Intake Total 500 ml 600 ml 6 ml Output Total 1900 ml 1950 ml 2420 ml Balance -1400 ml -1350 ml -2420 ml 6 ml Intake Oral 500 ml 600 ml IV Total 6 ml Output Urine Total 1900 ml 1950 ml 2420 ml Stool Total 0 ml # Voids 2 Imaging Last Impressions Chest X-Ray 06/08/16 1341 Signed Impressions: Service Date/Time: May 14:46 - CONCLUSION: No acute cardiopulmonary abnormality is identified. Luis Felipe Guerra MD Abdomen/Pelvis CT 06/08/16 1341 Signed Impressions: Service Date/Time: May 18:40 - CONCLUSION: 1. The balloon portion of the suprapubic catheter is inside the prosthetic urethra. 2. Probable hepatic hemangioma. Ryanne Maya MD Objective Remarks GENERAL: This is a well-nourished, well-developed patient, in no apparent distress. CARDIOVASCULAR: Regular rate and rhythm without murmurs RESPIRATORY: Clear to auscultation. Breath sounds equal bilaterally. No wheezes Abdomen: soft, NT, no guarding or rebound. ostomy in place and patent A/P Problem List: (1) Decubitus ulcer ICD Code: L89.90 Status: Chronic (2) UTI (urinary tract infection) ICD Code: N39.0 Status: Acute (3) Neurogenic bladder ICD Code: N31.9 Status: Chronic (4) Paraplegia ICD Code: G82.20 Status: Chronic (5) Abdominal pain ICD Code: R10.9 Status: Acute Assessment and Plan 35-year-old male with PMH of Anxiety, Paraplegia, Neurogenic Bladder s/p Suprapubic Cath, Chronic UTI and Chronic Sacral Decubitus Ulcer who presented for evaluation of sacral wound update from 06/28/16: no changes in current management. CM assisting w placement Stage IV Chronic Sacral Decubitus Ulcer, Present at time of admission. Recent admit 05/02-05/10 for same, s/p eval by ID and IV Abx, arrangements made for Home Health at time of d/c however pt reports difficulty obtaining care, currently homeless. Patient referred to ED by PCP for assistance with chronic wound management. Afebrile, no leukocytosis. Previous hospitalist discussed with ID and python architect, wounds appear to be healing from previous with no signs of acute infection. Wound culture grew MRSA, likely colonized from superficial swab. No further antibiotics for sacral wounds per ID. Wound care nurse consulted, appreciate recommendations, orders for dressing changes placed. On oral Dilaudid at home for pain control, continue oral Dilaudid 2-4 mg as needed. 0.5 mg IV Dilaudid prn with wound changes as needed for pain. Continue recommendations per plastic surgery. Sacral wounds healing well. Add Toradol 30 mg IV every 6 per for breakthrough pain 06/22/16. UTI: UA with evidence of possible UTI. H/o chronic UTI due to neurogenic bladder w/ indwelling cath. Previous urine culture with Escherichia coli and Proteus. Suprapubic cath changed 06/09. ID consulted, appreciated recommendations. Urine culture with E.coli, continue Augmentin, finish 14 days of treatment (stop date 06/23). Diarrhea in the colostomy bag: Stools improving, C. difficile negative Neurogenic Bladder: Secondary to Paraplegia. Suprapubic Cath exchanged on . Paraplegia: At baseline. Continue home medications. Trapeze setup. PT eval, recommends SNF, case management assisting. DVT Prophylaxis: SCD/Teds/lovenox. Discharge Planning awaiting SNF placement. CM assisting but apparently unable to find placement at this time. Problem Qualifiers (1) UTI (urinary tract infection): Qualified Code: T83.510A - Urinary tract infection associated with cystostomy catheter, initial encounter (2) Abdominal pain: Qualified Code: R10.13 - Epigastric pain Shala Bingham MD Jun 28, 2016 15:56
[2016-06-28 16:00] VITALS: BP 110/63; PULSE 84; RESP 16; TEMP 98.2; O2SAT 95
[2016-06-28 20:00] VITALS: BP 108/55; PULSE 87; RESP 20; TEMP 98.3; O2SAT 95
[2016-06-28] MEDS: CARISOPRODOL 350 MG TAB PO PRN (23:04)
[2016-06-29] VITALS: BP 113/59; PULSE 84; RESP 20; TEMP 98; O2SAT 94
[2016-06-29] MEDS: HYDROmorphone HCL PF 2 MG/ML VIAL IV PUSH PRN ×3 (02:28→22:15)
[2016-06-29 04:00] VITALS: BP 118/69; PULSE 95; RESP 20; TEMP 97.4; O2SAT 93
[2016-06-29 08:00] VITALS: BP 110/65; PULSE 82; RESP 16; TEMP 97.4; O2SAT 97
[2016-06-29] MEDS: GABAPENTIN 400 MG CAP PO SCH ×3 (08:49→17:34)
[2016-06-29] MEDS: FERROUS SULFATE 325 MG (65 MG ELEMENTAL IRON) TAB PO SCH ×2 (08:49→17:34)
[2016-06-29] MEDS: PANTOPRAZOLE SOD 40 MG DELAYED RELEASE TAB PO SCH (08:49)
[2016-06-29] MEDS: SODIUM CHLORIDE 0.9% FLUSH 5 ML FLUSH FLUSH SCH ×2 (08:50→21:08)
[2016-06-29] MEDS: ENOXAPARIN SODIUM 40 MG/0.4 ML SYRINGE SQ SCH (08:50)
[2016-06-29] MEDS: HYDROmorphone HCL 4 MG TAB PO PRN ×3 (08:52→17:34)
[2016-06-29 12:00] VITALS: BP 108/57; PULSE 94; RESP 16; TEMP 97.3; O2SAT 96
[2016-06-29] MEDS: SODIUM HYPOCHLORITE 0.125% 500 ML BTL TOPICAL SCH (14:42)
[2016-06-29 16:00] VITALS: BP 117/64; PULSE 86; RESP 18; TEMP 97.7; O2SAT 98
[2016-06-29] MEDS: ALPRAZolam 1 MG TAB PO PRN ×2 (17:33→23:28)
[2016-06-29] MEDS: ONDANSETRON HCL 4 MG/2 ML VIAL IVP PRN (17:38)
[2016-06-29 20:00] VITALS: BP 129/58; PULSE 90; RESP 20; TEMP 97.7; O2SAT 92
--- NOTE | 2016-06-29 20:45 | HHI.PR ---
Subjective Remarks No major overnight events denies cp/sob as per RN - new wound on right heel vitals signs stable denies fevers/chills Objective Vitals Vital Signs Date Time Temp Pulse Resp B/P Pulse Ox O2 Delivery O2 Flow Rate FiO2 06/29/16 16:00 97.7 86 18 117/64 98 06/29/16 12:00 97.3 94 16 108/57 96 06/29/16 08:45 Room Air 06/29/16 08:00 97.4 82 16 110/65 97 06/29/16 04:00 97.4 95 20 118/69 93 06/29/16 00:00 98.0 84 20 113/59 94 06/28/16 22:10 Room Air I/O 06/28/16 06/28/16 06/28/16 06/29/16 06/29/16 06/29/16 07:00 15:00 23:00 07:00 15:00 23:00 Intake Total 1446 ml 360 ml 720 ml 962 ml Output Total 2420 ml 2575 ml 600 ml 350 ml 1175 ml Balance -2420 ml -1129 ml -240 ml 370 ml -213 ml Intake Oral 1440 ml 360 ml 720 ml 960 ml IV Total 6 ml 2 ml Output Urine Total 2420 ml 2575 ml 600 ml 350 ml 1175 ml Stool Total 0 ml # Voids 2 # Bowel Movements 1 0 1 Objective Remarks GENERAL: This is a well-nourished, well-developed patient, in no apparent distress. CARDIOVASCULAR: Regular rate and rhythm without murmurs RESPIRATORY: Clear to auscultation. Breath sounds equal bilaterally. No wheezes Abdomen: soft, NT, no guarding or rebound. ostomy in place and patent SKIN: Stage II right heel ulcer. Procedures none Medications and IVs Current Medications Medications (Trade) Dose Ordered Sig/Haja Route Start Time Stop Time Status Last Admin (NS Flush) 2 ml UNSCH PRN FLUSH 06/08/16 20:00 06/28/16 11:40 (NS Flush) 2 ml BID FLUSH 06/08/16 21:00 06/29/16 21:08 (Zofran Inj) 4 mg Q6H PRN IVP 06/08/16 20:00 06/29/16 17:38 (Dulcolax Supp) 10 mg DAILY PRN MO 06/08/16 20:00 (Tylenol) 650 mg Q6H PRN PO 06/08/16 20:00 (Xanax) 1 mg Q6H PRN PO 06/08/16 20:00 06/29/16 17:33 (Soma) 350 mg TID PRN PO 06/08/16 20:00 06/29/16 21:08 (Ferrous Sulfate) 325 mg BIDPC PO 06/09/16 09:00 06/29/16 17:34 (Neurontin) 800 mg TID PO 06/09/16 09:00 06/29/16 17:34 (Dilaudid) 2 mg Q6H PRN PO 06/08/16 20:00 06/17/16 21:36 (ZyPREXA) 15 mg HS PO 06/08/16 21:00 06/29/16 21:08 (Dilaudid) 4 mg Q4H PRN PO 06/09/16 08:30 06/29/16 17:34 (Protonix) 40 mg DAILY PO 06/09/16 09:00 06/29/16 08:49 (Dakin'S 0.125% Soln) 500 ml DAILY TOPICAL 06/10/16 09:00 06/29/16 14:42 (Dilaudid Pf Inj) 0.5 mg Q8H PRN IV PUSH 06/21/16 15:30 06/29/16 14:42 (Benadryl) 25 mg Q4H PRN PO 06/23/16 16:00 06/29/16 23:01 (Lovenox Inj) 40 mg Q24H SQ 06/24/16 09:15 06/29/16 08:50 Urinary Catheter: No Vascular Central Line Catheter: No A/P Problem List: (1) Decubitus ulcer ICD Code: L89.90 Status: Chronic (2) UTI (urinary tract infection) ICD Code: N39.0 Status: Acute (3) Neurogenic bladder ICD Code: N31.9 Status: Chronic (4) Paraplegia ICD Code: G82.20 Status: Chronic (5) Abdominal pain ICD Code: R10.9 Status: Acute Assessment and Plan 35-year-old male with PMH of Anxiety, Paraplegia, Neurogenic Bladder s/p Suprapubic Cath, Chronic UTI and Chronic Sacral Decubitus Ulcer who presented for evaluation of sacral wound Stage IV Chronic Sacral Decubitus Ulcer, Present at time of admission. Recent admit 05/02-05/10 for same, s/p eval by ID and IV Abx, arrangements made for Home Health at time of d/c however pt reports difficulty obtaining care, currently homeless. Patient referred to ED by PCP for assistance with chronic wound management. Afebrile, no leukocytosis. Previous hospitalist discussed with ID and senior operations analyst, wounds appear to be healing from previous with no signs of acute infection. Wound culture grew MRSA, likely colonized from superficial swab. No further antibiotics for sacral wounds per ID. Wound care nurse consulted, appreciate recommendations, orders for dressing changes placed. On oral Dilaudid at home for pain control, continue oral Dilaudid 2-4 mg as needed. 0.5 mg IV Dilaudid prn with wound changes as needed for pain. Continue recommendations per plastic surgery. Sacral wounds healing well. Add Toradol 30 mg IV every 6 per for breakthrough pain 06/22/16. E Coli/Proteus UTI: UA with evidence of possible UTI. H/o chronic UTI due to neurogenic bladder w/ indwelling cath. Previous urine culture with Escherichia coli and Proteus. Suprapubic cath changed 06/09. ID consulted, appreciated recommendations. Urine culture with E.coli, continue Augmentin, finish 14 days of treatment (stop date 06/23). Diarrhea in the colostomy bag: Stools improving, C. difficile negative Neurogenic Bladder: Secondary to Paraplegia. Suprapubic Cath exchanged on . Paraplegia: At baseline. Continue home medications. Trapeze setup. PT eval, recommends SNF, case management assisting. 06/29 Stage II R heel ulcer: Will order raiser boots. DVT Prophylaxis: SCD/Teds/lovenox. Discharge Planning Patient evaluated by PT - needs rehab. Awaiting placement, CM to assisting in placement. Problem Qualifiers (1) UTI (urinary tract infection): Qualified Code: T83.510A - Urinary tract infection associated with cystostomy catheter, initial encounter (2) Abdominal pain: Qualified Code: R10.13 - Epigastric pain Mike Lyle MD Jun 29, 2016 20:44
[2016-06-29] MEDS: CARISOPRODOL 350 MG TAB PO PRN (21:08)
[2016-06-29] MEDS: diphenhydrAMINE HCL 25 MG CAP PO PRN (23:01)
[2016-06-30] VITALS: BP 121/58; PULSE 86; RESP 20; TEMP 97.7; O2SAT 95
[2016-06-30] MEDS: HYDROmorphone HCL 4 MG TAB PO PRN ×3 (00:03→17:07)
[2016-06-30 04:00] VITALS: BP_SYST 112; BP_SYST 152; BP_DIAS 59; BP_DIAS 92; PULSE 83; PULSE 87; RESP 20; TEMP 97.2; O2SAT 93
[2016-06-30] MEDS: CARISOPRODOL 350 MG TAB PO PRN ×2 (05:03→22:50)
[2016-06-30 08:00] VITALS: BP 103/59; PULSE 82; RESP 18; TEMP 98.1; O2SAT 97
[2016-06-30 08:12] LABS: AUTOMATED NEUTROPHIL # 3.7 TH/MM3 (1.8-7.7); BASOPHIL % 0.4 % (0.0-2.0); EOSINOPHIL # 0.3 TH/MM3 (0-0.4); EOSINOPHIL % 4.4 % (0.0-4.0); HEMATOCRIT 32.4 % (39.0-51.0); HEMO FLAGS DIFF FINAL; MEAN CELL VOLUME 81.1 FL (80.0-100.0); MEAN CORPUSCULAR HEMOGLOBIN 26.5 PG (27.0-34.0); MEAN CORPUSCULAR HGB CONC 32.7 % (32.0-36.0); MONO % 7.5 % (0.0-8.0); NEUT % 48.7 % (16.0-70.0); PLATELET COUNT 442 TH/MM3 (150-450); RED CELL DISTRIBUTION WIDTH 20.5 % (11.6-17.2); WHITE BLOOD COUNT 7.6 TH/MM3 (4.0-11.0)
[2016-06-30 08:40] LABS: ALKALINE PHOSPHATASE 176 U/L (45-117); ALT (GPT) 91 U/L (12-78); ANION GAP 9 MEQ/L (5-15); AST (GOT) 49 U/L (15-37); BICARBONATE 26.8 MEQ/L (21.0-32.0); BLOOD UREA NITROGEN 15 MG/DL (7-18); CHLORIDE 104 MEQ/L (98-107); GLOMERULAR FILTRATION RATE 191 ML/MIN (>89); POTASSIUM 3.8 MEQ/L (3.5-5.1); SODIUM (NA) 140 MEQ/L (136-145); TOTAL BILIRUBIN ADULT 0.1 MG/DL (0.2-1.0)
[2016-06-30] MEDS: SODIUM CHLORIDE 0.9% FLUSH 5 ML FLUSH FLUSH SCH ×2 (08:54→21:39)
[2016-06-30] MEDS: ENOXAPARIN SODIUM 40 MG/0.4 ML SYRINGE SQ SCH (08:54)
[2016-06-30] MEDS: FERROUS SULFATE 325 MG (65 MG ELEMENTAL IRON) TAB PO SCH ×2 (08:54→17:07)
[2016-06-30] MEDS: SODIUM HYPOCHLORITE 0.125% 500 ML BTL TOPICAL SCH (08:55)
[2016-06-30] MEDS: GABAPENTIN 400 MG CAP PO SCH ×3 (08:55→18:50)
[2016-06-30] MEDS: PANTOPRAZOLE SOD 40 MG DELAYED RELEASE TAB PO SCH (08:55)
[2016-06-30] MEDS: HYDROmorphone HCL PF 2 MG/ML VIAL IV PUSH PRN ×2 (11:26→21:39)
[2016-06-30 12:00] VITALS: BP 101/54; PULSE 88; RESP 18; TEMP 97.5; O2SAT 96
[2016-06-30] MEDS: ONDANSETRON HCL 4 MG/2 ML VIAL IVP PRN ×2 (15:02→21:39)
--- NOTE | 2016-06-30 15:08 | HHI.PR ---
Subjective Remarks No major overnight events denies fevers/chills c/o back pain Objective Vitals Vital Signs Date Time Temp Pulse Resp B/P Pulse Ox O2 Delivery O2 Flow Rate FiO2 06/30/16 12:00 97.5 88 18 101/54 96 06/30/16 08:00 98.1 82 18 103/59 97 06/30/16 04:00 97.2 83 20 112/59 93 06/30/16 00:00 97.7 86 20 121/58 95 06/29/16 21:45 Room Air 06/29/16 20:00 97.7 90 20 129/58 92 06/29/16 16:00 97.7 86 18 117/64 98 I/O 06/29/16 06/29/16 06/29/16 06/30/16 06/30/16 06/30/16 07:00 15:00 23:00 07:00 15:00 23:00 Intake Total 720 ml 962 ml 722 ml 720 ml Output Total 350 ml 1175 ml 400 ml 1900 ml Balance 370 ml -213 ml 322 ml -1180 ml Intake Oral 720 ml 960 ml 720 ml 720 ml IV Total 2 ml 2 ml Output Urine Total 350 ml 1175 ml 400 ml 1900 ml Stool Total 0 ml # Bowel Movements 0 1 0 Result Diagram: 06/30/1648 06/30/16 0748 Objective Remarks GENERAL: This is a well-nourished, well-developed patient, in no apparent distress. CARDIOVASCULAR: Regular rate and rhythm without murmurs RESPIRATORY: Clear to auscultation. Breath sounds equal bilaterally. No wheezes Abdomen: soft, NT, no guarding or rebound. ostomy in place and patent SKIN: Stage II right heel ulcer. Procedures none Medications and IVs Current Medications Medications (Trade) Dose Ordered Sig/Haja Route Start Time Stop Time Status Last Admin (NS Flush) 2 ml UNSCH PRN FLUSH 06/08/16 20:00 06/28/16 11:40 (NS Flush) 2 ml BID FLUSH 06/08/16 21:00 06/30/16 08:54 (Zofran Inj) 4 mg Q6H PRN IVP 06/08/16 20:00 06/30/16 15:02 (Dulcolax Supp) 10 mg DAILY PRN [place] 06/08/16 20:00 (Tylenol) 650 mg Q6H PRN PO 06/08/16 20:00 (Xanax) 1 mg Q6H PRN PO 06/08/16 20:00 06/29/16 23:28 (Soma) 350 mg TID PRN PO 06/08/16 20:00 06/30/16 05:03 (Ferrous Sulfate) 325 mg BIDPC PO 06/09/16 09:00 06/30/16 08:54 (Neurontin) 800 mg TID PO 06/09/16 09:00 06/30/16 14:13 (Dilaudid) 2 mg Q6H PRN PO 06/08/16 20:00 06/17/16 21:36 (ZyPREXA) 15 mg HS PO 06/08/16 21:00 06/29/16 21:08 (Dilaudid) 4 mg Q4H PRN PO 06/09/16 08:30 06/30/16 01:03 (Protonix) 40 mg DAILY PO 06/09/16 09:00 06/30/16 08:55 (Dakin'S 0.125% Soln) 500 ml DAILY TOPICAL 06/10/16 09:00 06/30/16 08:55 (Dilaudid Pf Inj) 0.5 mg Q8H PRN IV PUSH 06/21/16 15:30 06/30/16 11:26 (Benadryl) 25 mg Q4H PRN PO 06/23/16 16:00 06/29/16 23:01 (Lovenox Inj) 40 mg Q24H SQ 06/24/16 09:15 06/30/16 08:54 A/P Problem List: (1) Decubitus ulcer ICD Code: L89.90 Status: Chronic (2) UTI (urinary tract infection) ICD Code: N39.0 Status: Acute (3) Neurogenic bladder ICD Code: N31.9 Status: Chronic (4) Paraplegia ICD Code: G82.20 Status: Chronic (5) Abdominal pain ICD Code: R10.9 Status: Acute Assessment and Plan 35-year-old male with PMH of Anxiety, Paraplegia, Neurogenic Bladder s/p Suprapubic Cath, Chronic UTI and Chronic Sacral Decubitus Ulcer who presented for evaluation of sacral wound Stage IV Chronic Sacral Decubitus Ulcer, Present at time of admission. Recent admit 05/02-05/10 for same, s/p eval by ID and IV Abx, arrangements made for Home Health at time of d/c however pt reports difficulty obtaining care, currently homeless. Patient referred to ED by PCP for assistance with chronic wound management. Afebrile, no leukocytosis. Previous hospitalist discussed with ID and auto repair shop manager, wounds appear to be healing from previous with no signs of acute infection. Wound culture grew MRSA, likely colonized from superficial swab. No further antibiotics for sacral wounds per ID. Wound care nurse consulted, appreciate recommendations, orders for dressing changes placed. On oral Dilaudid at home for pain control, continue oral Dilaudid 2-4 mg as needed. 0.5 mg IV Dilaudid prn with wound changes as needed for pain. Continue recommendations per plastic surgery. Sacral wounds healing well. Add Toradol 30 mg IV every 6 per for breakthrough pain 06/22/16. E Coli/Proteus UTI: UA with evidence of possible UTI. H/o chronic UTI due to neurogenic bladder w/ indwelling cath. Previous urine culture with Escherichia coli and Proteus. Suprapubic cath changed 06/09. ID consulted, appreciated recommendations. Urine culture with E.coli, continue Augmentin, finish 14 days of treatment (stop date 06/23). Diarrhea in the colostomy bag: Stools improving, C. difficile negative Neurogenic Bladder: Secondary to Paraplegia. Suprapubic Cath exchanged on . Paraplegia: At baseline. Continue home medications. Trapeze setup. PT eval, recommends SNF, case management assisting. 06/29 Stage II R heel ulcer: continue raiser boots, wound care. DVT Prophylaxis: SCD/Teds/lovenox. Discharge Planning Patient evaluated by PT - needs rehab. Awaiting placement, CM to assisting in placement. Problem Qualifiers (1) UTI (urinary tract infection): Qualified Code: T83.510A - Urinary tract infection associated with cystostomy catheter, initial encounter (2) Abdominal pain: Qualified Code: R10.13 - Epigastric pain Mike Lyle MD Jun 30, 2016 15:08
[2016-06-30 16:00] VITALS: BP 116/54; PULSE 81; RESP 16; TEMP 97.7; O2SAT 97
[2016-06-30 20:00] VITALS: BP_SYST 142; BP_SYST 149; BP_DIAS 61; BP_DIAS 82; PULSE 79; RESP 21; TEMP 96.8; O2SAT 98
[2016-06-30] MEDS: diphenhydrAMINE HCL 25 MG CAP PO PRN (21:41)
[2016-06-30] MEDS: ALPRAZolam 1 MG TAB PO PRN (22:23)
[2016-07-01] VITALS: BP 115/82; PULSE 81; RESP 16; TEMP 98.3; O2SAT 95
[2016-07-01] MEDS: HYDROmorphone HCL 4 MG TAB PO PRN ×2 (01:07→18:30)
[2016-07-01 04:00] VITALS: BP 104/53; PULSE 77; RESP 18; TEMP 98.2; O2SAT 96
[2016-07-01 08:00] VITALS: BP 103/59; PULSE 77; RESP 18; TEMP 97.9; O2SAT 97
[2016-07-01] MEDS: FERROUS SULFATE 325 MG (65 MG ELEMENTAL IRON) TAB PO SCH ×2 (10:14→18:25)
[2016-07-01] MEDS: PANTOPRAZOLE SOD 40 MG DELAYED RELEASE TAB PO SCH (10:15)
[2016-07-01] MEDS: SODIUM CHLORIDE 0.9% FLUSH 5 ML FLUSH FLUSH SCH ×2 (10:15→20:55)
[2016-07-01] MEDS: ENOXAPARIN SODIUM 40 MG/0.4 ML SYRINGE SQ SCH (10:15)
[2016-07-01] MEDS: SODIUM HYPOCHLORITE 0.125% 500 ML BTL TOPICAL SCH (10:15)
[2016-07-01] MEDS: GABAPENTIN 400 MG CAP PO SCH ×3 (10:15→18:25)
[2016-07-01 12:00] VITALS: BP 123/57; PULSE 76; RESP 18; TEMP 97.8; O2SAT 97
[2016-07-01] MEDS: ONDANSETRON HCL 4 MG/2 ML VIAL IVP PRN (14:26)
[2016-07-01] MEDS: HYDROmorphone HCL PF 2 MG/ML VIAL IV PUSH PRN (14:27)
[2016-07-01 16:00] VITALS: BP 113/57; PULSE 87; RESP 18; TEMP 97.2; O2SAT 97
--- NOTE | 2016-07-01 16:58 | HHI.PR ---
Subjective Remarks no major overnight events states no fevers/chills denies diarrhea denies cough Objective Vitals Vital Signs Date Time Temp Pulse Resp B/P Pulse Ox O2 Delivery O2 Flow Rate FiO2 07/01/16 15:10 18 07/01/16 14:58 97 Room Air 07/01/16 12:00 97.8 76 18 123/57 97 07/01/16 08:00 97.9 77 18 103/59 97 07/01/16 04:00 98.2 77 18 104/53 96 07/01/16 00:00 98.3 81 16 115/82 95 06/30/16 21:50 Room Air 06/30/16 20:00 96.8 79 21 142/61 98 I/O 06/30/16 06/30/16 06/30/16 07/01/16 07/01/16 07/01/16 07:00 15:00 23:00 07:00 15:00 23:00 Intake Total 720 ml 1686 ml 962 ml 840 ml 0 ml Output Total 1900 ml 1950 ml 3050 ml 1250 ml Balance -1180 ml -264 ml -2088 ml -410 ml 0 ml Intake Oral 720 ml 1680 ml 960 ml 840 ml IV Total 6 ml 2 ml 0 ml Output Urine Total 1900 ml 1950 ml 1650 ml 1250 ml Stool Total 0 ml 1400 ml 0 ml # Voids 0 # Bowel Movements 1 Result Diagram: 06/30/16 0748 06/30/16 0748 Imaging Last Impressions Chest X-Ray 06/08/16 1341 Signed Impressions: Service Date/Time: May 14:46 - CONCLUSION: No acute cardiopulmonary abnormality is identified. Luis Felipe Guerra MD Abdomen/Pelvis CT 06/08/16 1341 Signed Impressions: Service Date/Time: May 18:40 - CONCLUSION: 1. The balloon portion of the suprapubic catheter is inside the prosthetic urethra. 2. Probable hepatic hemangioma. Ryanne Maya MD Objective Remarks GENERAL: This is a well-nourished, well-developed patient, in no apparent distress. CARDIOVASCULAR: Regular rate and rhythm without murmurs RESPIRATORY: Clear to auscultation. Breath sounds equal bilaterally. No wheezes Abdomen: soft, NT, no guarding or rebound. ostomy in place and patent SKIN: Stage II right heel ulcer. Procedures none Medications and IVs Current Medications Medications (Trade) Dose Ordered Sig/Haja Route Start Time Stop Time Status Last Admin (NS Flush) 2 ml UNSCH PRN FLUSH 06/08/16 20:00 06/28/16 11:40 (NS Flush) 2 ml BID FLUSH 06/08/16 21:00 07/01/16 10:15 (Zofran Inj) 4 mg Q6H PRN IVP 06/08/16 20:00 07/01/16 14:26 (Dulcolax Supp) 10 mg DAILY PRN [place] 06/08/16 20:00 (Tylenol) 650 mg Q6H PRN PO 06/08/16 20:00 (Xanax) 1 mg Q6H PRN PO 06/08/16 20:00 06/30/16 22:23 (Soma) 350 mg TID PRN PO 06/08/16 20:00 06/30/16 22:50 (Ferrous Sulfate) 325 mg BIDPC PO 06/09/16 09:00 07/01/16 10:14 (Neurontin) 800 mg TID PO 06/09/16 09:00 07/01/16 14:26 (Dilaudid) 2 mg Q6H PRN PO 06/08/16 20:00 06/17/16 21:36 (ZyPREXA) 15 mg HS PO 06/08/16 21:00 06/30/16 22:23 (Dilaudid) 4 mg Q4H PRN PO 06/09/16 08:30 07/01/16 01:07 (Protonix) 40 mg DAILY PO 06/09/16 09:00 07/01/16 10:15 (Dakin'S 0.125% Soln) 500 ml DAILY TOPICAL 06/10/16 09:00 07/01/16 10:15 (Dilaudid Pf Inj) 0.5 mg Q8H PRN IV PUSH 06/21/16 15:30 07/01/16 14:27 (Benadryl) 25 mg Q4H PRN PO 06/23/16 16:00 06/30/16 21:41 (Lovenox Inj) 40 mg Q24H SQ 06/24/16 09:15 07/01/16 10:15 A/P Problem List: (1) Decubitus ulcer ICD Code: L89.90 Status: Chronic (2) UTI (urinary tract infection) ICD Code: N39.0 Status: Acute (3) Neurogenic bladder ICD Code: N31.9 Status: Chronic (4) Paraplegia ICD Code: G82.20 Status: Chronic (5) Abdominal pain ICD Code: R10.9 Status: Acute Assessment and Plan 35-year-old male with PMH of Anxiety, Paraplegia, Neurogenic Bladder s/p Suprapubic Cath, Chronic UTI and Chronic Sacral Decubitus Ulcer who presented for evaluation of sacral wound Stage IV Chronic Sacral Decubitus Ulcer, Present at time of admission. Recent admit 05/02-05/10 for same, s/p eval by ID and IV Abx, arrangements made for Home Health at time of d/c however pt reports difficulty obtaining care, currently homeless. Patient referred to ED by PCP for assistance with chronic wound management. Afebrile, no leukocytosis. Previous hospitalist discussed with ID and feather trimmer, wounds appear to be healing from previous with no signs of acute infection. Wound culture grew MRSA, likely colonized from superficial swab. No further antibiotics for sacral wounds per ID. Wound care nurse consulted, appreciate recommendations, orders for dressing changes placed. On oral Dilaudid at home for pain control, continue oral Dilaudid 2-4 mg as needed. 0.5 mg IV Dilaudid prn with wound changes as needed for pain. Continue recommendations per plastic surgery. Sacral wounds healing well. Add Toradol 30 mg IV every 6 per for breakthrough pain 06/22/16. E Coli/Proteus UTI: UA with evidence of possible UTI. H/o chronic UTI due to neurogenic bladder w/ indwelling cath. Previous urine culture with Escherichia coli and Proteus. Suprapubic cath changed 06/09. ID consulted, appreciated recommendations. Urine culture with E.coli, continue Augmentin, finish 14 days of treatment (stop date 06/23). Diarrhea in the colostomy bag: Stools improving, C. difficile negative Neurogenic Bladder: Secondary to Paraplegia. Suprapubic Cath exchanged on . Paraplegia: At baseline. Continue home medications. Trapeze setup. PT eval, recommends SNF, case management assisting. 06/29 Stage II R heel ulcer: continue raiser boots, wound care. 07/01 No changes to current management, awaiting placement. DVT Prophylaxis: SCD/Teds/lovenox. Discharge Planning Patient evaluated by PT - needs rehab. Awaiting placement, CM to assisting in placement. Problem Qualifiers (1) UTI (urinary tract infection): Qualified Code: T83.510A - Urinary tract infection associated with cystostomy catheter, initial encounter (2) Abdominal pain: Qualified Code: R10.13 - Epigastric pain Mike Lyle MD Jul 01, 2016 16:58
[2016-07-01 20:00] VITALS: BP 131/65; PULSE 83; RESP 20; TEMP 97.3; O2SAT 97
[2016-07-01] MEDS: CARISOPRODOL 350 MG TAB PO PRN (20:55)
[2016-07-02] VITALS: BP 117/67; PULSE 97; RESP 20; TEMP 97.6; O2SAT 96
[2016-07-02] MEDS: SODIUM HYPOCHLORITE 0.125% 500 ML BTL TOPICAL SCH ×3 (01:13→21:00)
[2016-07-02 04:00] VITALS: BP 111/56; PULSE 76; RESP 22; TEMP 97.9; O2SAT 97
[2016-07-02 08:00] VITALS: BP 95/53; PULSE 78; RESP 18; TEMP 97.8; O2SAT 96
[2016-07-02] MEDS: GABAPENTIN 400 MG CAP PO SCH ×3 (09:15→17:16)
[2016-07-02] MEDS: SODIUM CHLORIDE 0.9% FLUSH 5 ML FLUSH FLUSH SCH ×2 (09:15→21:00)
[2016-07-02] MEDS: PANTOPRAZOLE SOD 40 MG DELAYED RELEASE TAB PO SCH (09:15)
[2016-07-02] MEDS: FERROUS SULFATE 325 MG (65 MG ELEMENTAL IRON) TAB PO SCH ×2 (09:15→17:16)
[2016-07-02] MEDS: ENOXAPARIN SODIUM 40 MG/0.4 ML SYRINGE SQ SCH (09:16)
[2016-07-02 09:22] VITALS: BP 99/58; PULSE 71
[2016-07-02] MEDS ORDERED: SODIUM CHLORID 0.9% 500 ML INJ 500 ML IV ONE ×2 (10:00→12:15)
[2016-07-02 12:00] VITALS: BP 110/55; PULSE 78; RESP 18; TEMP 97.4; O2SAT 99
[2016-07-02] MEDS: HYDROmorphone HCL PF 2 MG/ML VIAL IV PUSH PRN ×3 (14:21→21:56)
[2016-07-02] MEDS: ONDANSETRON HCL 4 MG/2 ML VIAL IVP PRN (14:53)
--- NOTE | 2016-07-02 15:51 | HHI.PR ---
Subjective Remarks Patient noted to be hypotensive denies chest pain/sob denies dizziness Objective Vitals Vital Signs Date Time Temp Pulse Resp B/P Pulse Ox O2 Delivery O2 Flow Rate FiO2 07/02/16 12:00 97.4 78 18 110/55 99 07/02/16 09:22 71 99/58 07/02/16 08:00 97.8 78 18 95/53 96 07/02/16 04:00 97.9 76 22 111/56 97 07/02/16 00:00 97.6 97 20 117/67 96 07/01/16 20:00 97.3 83 20 131/65 97 07/01/16 20:00 Room Air 07/01/16 16:00 97.2 87 18 113/57 97 I/O 07/01/16 07/01/16 07/01/16 07/02/16 07/02/16 07/02/16 06:59 14:59 22:59 06:59 14:59 22:59 Intake Total 840 ml 480 ml 480 ml 480 ml Output Total 1250 ml 2000 ml 600 ml 800 ml 1000 ml Balance -410 ml -1520 ml -120 ml -320 ml -1000 ml Intake Oral 840 ml 480 ml 480 ml 480 ml IV Total 0 ml Output Urine Total 1250 ml 2000 ml 600 ml 800 ml 1000 ml Stool Total 0 ml Result Diagram: 06/30/1648 06/30/16 0748 Objective Remarks GENERAL: This is a well-nourished, well-developed patient, in no apparent distress. CARDIOVASCULAR: Regular rate and rhythm without murmurs RESPIRATORY: Clear to auscultation. Breath sounds equal bilaterally. No wheezes Abdomen: soft, NT, no guarding or rebound. ostomy in place and patent SKIN: Stage II right heel ulcer. Procedures none Medications and IVs Current Medications Medications (Trade) Dose Ordered Sig/Haja Route Start Time Stop Time Status Last Admin (NS Flush) 2 ml UNSCH PRN FLUSH 06/08/16 20:00 06/28/16 11:40 (NS Flush) 2 ml BID FLUSH 06/08/16 21:00 07/02/16 21:00 (Zofran Inj) 4 mg Q6H PRN IVP 06/08/16 20:00 07/02/16 14:53 (Dulcolax Supp) 10 mg DAILY PRN [place] 06/08/16 20:00 (Tylenol) 650 mg Q6H PRN PO 06/08/16 20:00 (Xanax) 1 mg Q6H PRN PO 06/08/16 20:00 07/02/16 21:54 (Soma) 350 mg TID PRN PO 06/08/16 20:00 07/01/16 20:55 (Ferrous Sulfate) 325 mg BIDPC PO 06/09/16 09:00 07/02/16 17:16 (Neurontin) 800 mg TID PO 06/09/16 09:00 07/02/16 17:16 (Dilaudid) 2 mg Q6H PRN PO 06/08/16 20:00 06/17/16 21:36 (ZyPREXA) 15 mg HS PO 06/08/16 21:00 07/02/16 21:53 (Dilaudid) 4 mg Q4H PRN PO 06/09/16 08:30 07/01/16 18:30 (Protonix) 40 mg DAILY PO 06/09/16 09:00 07/02/16 09:15 (Dilaudid Pf Inj) 0.5 mg Q8H PRN IV PUSH 06/21/16 15:30 07/02/16 21:56 (Benadryl) 25 mg Q4H PRN PO 06/23/16 16:00 06/30/16 21:41 (Lovenox Inj) 40 mg Q24H SQ 06/24/16 09:15 07/02/16 09:16 (Dakin'S 0.125% Soln) SOAK GAUZE AND USE TO PACK ... BID TOPICAL 07/01/16 23:00 07/02/16 21:00 A/P Problem List: (1) Decubitus ulcer ICD Code: L89.90 Status: Chronic (2) UTI (urinary tract infection) ICD Code: N39.0 Status: Acute (3) Neurogenic bladder ICD Code: N31.9 Status: Chronic (4) Paraplegia ICD Code: G82.20 Status: Chronic (5) Abdominal pain ICD Code: R10.9 Status: Acute Assessment and Plan 35-year-old male with PMH of Anxiety, Paraplegia, Neurogenic Bladder s/p Suprapubic Cath, Chronic UTI and Chronic Sacral Decubitus Ulcer who presented for evaluation of sacral wound Stage IV Chronic Sacral Decubitus Ulcer, Present at time of admission. Recent admit 05/02-05/10 for same, s/p eval by ID and IV Abx, arrangements made for Home Health at time of d/c however pt reports difficulty obtaining care, currently homeless. Patient referred to ED by PCP for assistance with chronic wound management. Afebrile, no leukocytosis. Previous hospitalist discussed with ID and wrapping clerk, wounds appear to be healing from previous with no signs of acute infection. Wound culture grew MRSA, likely colonized from superficial swab. No further antibiotics for sacral wounds per ID. Wound care nurse consulted, appreciate recommendations, orders for dressing changes placed. On oral Dilaudid at home for pain control, continue oral Dilaudid 2-4 mg as needed. 0.5 mg IV Dilaudid prn with wound changes as needed for pain. Continue recommendations per plastic surgery. Sacral wounds healing well. Add Toradol 30 mg IV every 6 per for breakthrough pain 06/22/16. E Coli/Proteus UTI: UA with evidence of possible UTI. H/o chronic UTI due to neurogenic bladder w/ indwelling cath. Previous urine culture with Escherichia coli and Proteus. Suprapubic cath changed 06/09. ID consulted, appreciated recommendations. Urine culture with E.coli, continue Augmentin, finish 14 days of treatment (stop date 06/23). Diarrhea in the colostomy bag: Stools improving, C. difficile negative Neurogenic Bladder: Secondary to Paraplegia. Suprapubic Cath exchanged on . Paraplegia: At baseline. Continue home medications. Trapeze setup. PT eval, recommends SNF, case management assisting. 06/29 Stage II R heel ulcer: continue raiser boots, wound care. Hypotension: Possibly due to dehydration. Will give 500 ml IV bolus normal saline and continue to monitor bp. No other signs of active infection. DVT Prophylaxis: SCD/Teds/lovenox. Discharge Planning Patient evaluated by PT - needs rehab. Awaiting placement, CM to assisting in placement. Problem Qualifiers (1) UTI (urinary tract infection): Qualified Code: T83.510A - Urinary tract infection associated with cystostomy catheter, initial encounter (2) Abdominal pain: Qualified Code: R10.13 - Epigastric pain Mike Lyle MD Jul 02, 2016 15:51
[2016-07-02 16:00] VITALS: BP 117/64; PULSE 80; RESP 18; TEMP 98.2; O2SAT 97
[2016-07-02] MEDS: ALPRAZolam 1 MG TAB PO PRN (21:54)
[2016-07-03 00:12] VITALS: BP 117/67; PULSE 89; RESP 18; TEMP 97.8; O2SAT 97
[2016-07-03] MEDS: ONDANSETRON HCL 4 MG/2 ML VIAL IVP PRN ×2 (00:25→16:49)
[2016-07-03] MEDS: HYDROmorphone HCL 4 MG TAB PO PRN ×4 (00:33→20:50)
[2016-07-03 04:00] VITALS: BP 117/67; PULSE 87; RESP 18; TEMP 97.8; O2SAT 97
[2016-07-03 08:00] VITALS: BP 110/60; PULSE 67; RESP 18; TEMP 97.6; O2SAT 97
[2016-07-03] MEDS: ENOXAPARIN SODIUM 40 MG/0.4 ML SYRINGE SQ SCH (09:08)
[2016-07-03] MEDS: GABAPENTIN 400 MG CAP PO SCH ×3 (09:08→16:48)
[2016-07-03] MEDS: FERROUS SULFATE 325 MG (65 MG ELEMENTAL IRON) TAB PO SCH ×2 (09:09→16:48)
[2016-07-03] MEDS: SODIUM HYPOCHLORITE 0.125% 500 ML BTL TOPICAL SCH ×2 (09:09→20:51)
[2016-07-03] MEDS: SODIUM CHLORIDE 0.9% FLUSH 5 ML FLUSH FLUSH SCH ×2 (09:09→20:56)
[2016-07-03] MEDS: PANTOPRAZOLE SOD 40 MG DELAYED RELEASE TAB PO SCH (09:09)
[2016-07-03 12:00] VITALS: BP 106/54; PULSE 77; RESP 21; TEMP 97.9; O2SAT 96
[2016-07-03 16:00] VITALS: BP 127/65; PULSE 77; RESP 18; TEMP 98.1; O2SAT 97
[2016-07-03] MEDS: HYDROmorphone HCL PF 2 MG/ML VIAL IV PUSH PRN (16:49)
--- NOTE | 2016-07-03 16:55 | HHI.PR ---
Subjective Remarks Patient c/o mild back pain - better when he moves denies fevers/chills denies diarrhea denies cp/sob denies cough Objective Vitals Vital Signs Date Time Temp Pulse Resp B/P Pulse Ox O2 Delivery O2 Flow Rate FiO2 07/03/16 12:00 97.9 77 21 106/54 96 07/03/16 09:16 Room Air 07/03/16 08:00 97.6 67 18 110/60 97 07/03/16 04:00 97.8 87 18 117/67 97 07/03/16 00:12 97.8 89 18 117/67 97 07/02/16 21:00 Room Air I/O 07/02/16 07/02/16 07/02/16 07/03/16 07/03/16 07/03/16 07:00 15:00 23:00 07:00 15:00 23:00 Intake Total 480 ml 960 ml 360 ml 360 ml Output Total 800 ml 2550 ml 2400 ml 750 ml Balance -320 ml -1590 ml -2040 ml -390 ml Intake Oral 480 ml 960 ml 360 ml 360 ml Output Urine Total 800 ml 2550 ml 2400 ml 750 ml # Bowel Movements 0 Result Diagram: 06/30/16 0748 06/30/16 0748 Imaging Last Impressions Chest X-Ray 06/08/16 1341 Signed Impressions: Service Date/Time: May 14:46 - CONCLUSION: No acute cardiopulmonary abnormality is identified. Luis Felipe Guerra MD Abdomen/Pelvis CT 06/08/16 1341 Signed Impressions: Service Date/Time: May 18:40 - CONCLUSION: 1. The balloon portion of the suprapubic catheter is inside the prosthetic urethra. 2. Probable hepatic hemangioma. Ryanne Maya MD Objective Remarks GENERAL: This is a well-nourished, well-developed patient, in no apparent distress. CARDIOVASCULAR: Regular rate and rhythm without murmurs RESPIRATORY: Clear to auscultation. Breath sounds equal bilaterally. No wheezes Abdomen: soft, NT, no guarding or rebound. ostomy in place and patent SKIN: Stage II right heel ulcer. Procedures none Medications and IVs Current Medications Medications (Trade) Dose Ordered Sig/Haja Route Start Time Stop Time Status Last Admin (NS Flush) 2 ml UNSCH PRN FLUSH 06/08/16 20:00 06/28/16 11:40 (NS Flush) 2 ml BID FLUSH 06/08/16 21:00 07/03/16 09:09 (Zofran Inj) 4 mg Q6H PRN IVP 06/08/16 20:00 07/03/16 00:25 (Dulcolax Supp) 10 mg DAILY PRN [place] 06/08/16 20:00 (Tylenol) 650 mg Q6H PRN PO 06/08/16 20:00 (Xanax) 1 mg Q6H PRN PO 06/08/16 20:00 07/02/16 21:54 (Soma) 350 mg TID PRN PO 06/08/16 20:00 07/01/16 20:55 (Ferrous Sulfate) 325 mg BIDPC PO 06/09/16 09:00 07/03/16 09:09 (Neurontin) 800 mg TID PO 06/09/16 09:00 07/03/16 12:28 (Dilaudid) 2 mg Q6H PRN PO 06/08/16 20:00 06/17/16 21:36 (ZyPREXA) 15 mg HS PO 06/08/16 21:00 07/02/16 21:53 (Dilaudid) 4 mg Q4H PRN PO 06/09/16 08:30 07/03/16 14:48 (Protonix) 40 mg DAILY PO 06/09/16 09:00 07/03/16 09:09 (Dilaudid Pf Inj) 0.5 mg Q8H PRN IV PUSH 06/21/16 15:30 07/02/16 21:56 (Benadryl) 25 mg Q4H PRN PO 06/23/16 16:00 06/30/16 21:41 (Lovenox Inj) 40 mg Q24H SQ 06/24/16 09:15 07/03/16 09:08 (Dakin'S 0.125% Soln) SOAK GAUZE AND USE TO PACK ... BID TOPICAL 07/01/16 23:00 07/03/16 09:09 Urinary Catheter: No Vascular Central Line Catheter: No A/P Problem List: (1) Decubitus ulcer ICD Code: L89.90 Status: Chronic (2) UTI (urinary tract infection) ICD Code: N39.0 Status: Acute (3) Neurogenic bladder ICD Code: N31.9 Status: Chronic (4) Paraplegia ICD Code: G82.20 Status: Chronic (5) Abdominal pain ICD Code: R10.9 Status: Acute Assessment and Plan 35-year-old male with PMH of Anxiety, Paraplegia, Neurogenic Bladder s/p Suprapubic Cath, Chronic UTI and Chronic Sacral Decubitus Ulcer who presented for evaluation of sacral wound Stage IV Chronic Sacral Decubitus Ulcer, Present at time of admission. Recent admit 05/02-05/10 for same, s/p eval by ID and IV Abx, arrangements made for Home Health at time of d/c however pt reports difficulty obtaining care, currently homeless. Patient referred to ED by PCP for assistance with chronic wound management. Afebrile, no leukocytosis. Previous hospitalist discussed with ID and tax director, wounds appear to be healing from previous with no signs of acute infection. Wound culture grew MRSA, likely colonized from superficial swab. No further antibiotics for sacral wounds per ID. Wound care nurse consulted, appreciate recommendations, orders for dressing changes placed. On oral Dilaudid at home for pain control, continue oral Dilaudid 2-4 mg as needed. 0.5 mg IV Dilaudid prn with wound changes as needed for pain. Continue recommendations per plastic surgery. Sacral wounds healing well. Add Toradol 30 mg IV every 6 per for breakthrough pain 06/22/16. E Coli/Proteus UTI: UA with evidence of possible UTI. H/o chronic UTI due to neurogenic bladder w/ indwelling cath. Previous urine culture with Escherichia coli and Proteus. Suprapubic cath changed 06/09. ID consulted, appreciated recommendations. Urine culture with E.coli, continue Augmentin, finish 14 days of treatment (stop date 06/23). Diarrhea in the colostomy bag: Stools improving, C. difficile negative Neurogenic Bladder: Secondary to Paraplegia. Suprapubic Cath exchanged on . Paraplegia: At baseline. Continue home medications. Trapeze setup. PT eval, recommends SNF, case management assisting. 06/29 Stage II R heel ulcer: continue raiser boots, wound care. Hypotension: Possibly due to dehydration - which resolved after IVF administration. DVT Prophylaxis: SCD/Teds/lovenox. Discharge Planning Patient evaluated by PT - needs rehab. Awaiting placement, CM to assisting in placement. Problem Qualifiers (1) UTI (urinary tract infection): Qualified Code: T83.510A - Urinary tract infection associated with cystostomy catheter, initial encounter (2) Abdominal pain: Qualified Code: R10.13 - Epigastric pain Mike Lyle MD Jul 03, 2016 16:54
[2016-07-03 20:00] VITALS: BP 115/63; PULSE 89; RESP 17; TEMP 97.7; O2SAT 94
[2016-07-03] MEDS: ALPRAZolam 1 MG TAB PO PRN (20:51)
[2016-07-04] VITALS: BP_SYST 121; BP_SYST 155; BP_DIAS 101; BP_DIAS 60; PULSE 75; PULSE 90; RESP 18; RESP 20; TEMP 98.2; O2SAT 95; O2SAT 96
[2016-07-04] MEDS: HYDROmorphone HCL PF 2 MG/ML VIAL IV PUSH PRN ×3 (00:03→22:25)
[2016-07-04 04:00] VITALS: BP 106/56; PULSE 78; RESP 18; TEMP 97.7; O2SAT 97
[2016-07-04] MEDS: HYDROmorphone HCL 4 MG TAB PO PRN ×4 (05:18→20:50)
[2016-07-04 08:00] VITALS: BP 102/57; PULSE 77; RESP 16; TEMP 98; O2SAT 97
[2016-07-04] MEDS: FERROUS SULFATE 325 MG (65 MG ELEMENTAL IRON) TAB PO SCH ×2 (09:12→16:41)
[2016-07-04] MEDS: ENOXAPARIN SODIUM 40 MG/0.4 ML SYRINGE SQ SCH (09:12)
[2016-07-04] MEDS: SODIUM CHLORIDE 0.9% FLUSH 5 ML FLUSH FLUSH SCH ×2 (09:12→20:58)
[2016-07-04] MEDS: PANTOPRAZOLE SOD 40 MG DELAYED RELEASE TAB PO SCH (09:12)
[2016-07-04] MEDS: GABAPENTIN 400 MG CAP PO SCH ×3 (09:12→16:41)
[2016-07-04] MEDS: SODIUM HYPOCHLORITE 0.125% 500 ML BTL TOPICAL SCH ×2 (09:13→20:50)
[2016-07-04 12:00] VITALS: BP 117/56; PULSE 87; RESP 18; TEMP 98.4; O2SAT 96
[2016-07-04 16:00] VITALS: BP 122/59; PULSE 76; RESP 18; TEMP 97.5; O2SAT 96
--- NOTE | 2016-07-04 17:27 | HHI.PR ---
Subjective Remarks No complaints, no overnight events, still awaiting placement. Objective Vitals Vital Signs Date Time Temp Pulse Resp B/P Pulse Ox O2 Delivery O2 Flow Rate FiO2 07/04/16 15:21 Room Air 07/04/16 12:00 98.4 87 18 117/56 96 07/04/16 10:05 18 07/04/16 08:00 98.0 77 16 102/57 97 07/04/16 08:00 98.0 77 16 102/57 97 07/04/16 04:00 97.7 78 18 106/56 97 07/04/16 00:00 98.2 90 20 121/60 95 07/03/16 21:00 Room Air 07/03/16 20:00 97.7 89 17 115/63 94 I/O 07/03/16 07/03/16 07/03/16 07/04/16 07/04/16 07/04/16 06:59 14:59 22:59 06:59 14:59 22:59 Intake Total 360 ml 480 ml 480 ml 840 ml 487 ml Output Total 750 ml 400 ml 900 ml 1750 ml 1500 ml Balance -390 ml 80 ml -420 ml -910 ml -1013 ml Intake Oral 360 ml 480 ml 480 ml 840 ml 480 ml IV Total 7 ml Output Urine Total 750 ml 400 ml 900 ml 1750 ml 1500 ml # Bowel Movements 0 0 Result Diagram: 06/30/1648 06/30/16 0748 Objective Remarks GENERAL: This is a well-nourished, CARDIOVASCULAR: Regular rate and rhythm without murmurs RESPIRATORY: Clear to auscultation. Breath sounds equal bilaterally. No wheezes Abdomen: soft, NT, no guarding or rebound. ostomy in place and patent SKIN: Stage II right heel ulcer. Alert, awake, oriented, paraplegic. Procedures none A/P Problem List: (1) Decubitus ulcer ICD Code: L89.90 Status: Chronic (2) UTI (urinary tract infection) ICD Code: N39.0 Status: Acute (3) Neurogenic bladder ICD Code: N31.9 Status: Chronic (4) Paraplegia ICD Code: G82.20 Status: Chronic (5) Abdominal pain ICD Code: R10.9 Status: Acute Assessment and Plan 35-year-old male with PMH of Anxiety, Paraplegia, Neurogenic Bladder s/p Suprapubic Cath, Chronic UTI and Chronic Sacral Decubitus Ulcer who presented for evaluation of sacral wound Stage IV Chronic Sacral Decubitus Ulcer, Present at time of admission. Recent admit 05/02-05/10 for same, s/p eval by ID and IV Abx, arrangements made for Home Health at time of d/c however pt reports difficulty obtaining care, currently homeless. Patient referred to ED by PCP for assistance with chronic wound management. Afebrile, no leukocytosis. Previous hospitalist discussed with ID and sagger filler, wounds appear to be healing from previous with no signs of acute infection. Wound culture grew MRSA, likely colonized from superficial swab. No further antibiotics for sacral wounds per ID. Wound care nurse consulted, appreciate recommendations, orders for dressing changes placed. On oral Dilaudid at home for pain control, continue oral Dilaudid 2-4 mg as needed. 0.5 mg IV Dilaudid prn with wound changes as needed for pain. Continue recommendations per plastic surgery. Sacral wounds healing well. Add Toradol 30 mg IV every 6 per for breakthrough pain 06/22/16. E Coli/Proteus UTI: UA with evidence of possible UTI. H/o chronic UTI due to neurogenic bladder w/ indwelling cath. Previous urine culture with Escherichia coli and Proteus. Suprapubic cath changed 06/09. ID consulted, appreciated recommendations. Urine culture with E.coli, continue Augmentin, finish 14 days of treatment (stop date 06/23). Diarrhea in the colostomy bag: Stools improving, C. difficile negative Neurogenic Bladder: Secondary to Paraplegia. Suprapubic Cath exchanged on . Paraplegia: At baseline. Continue home medications. Trapeze setup. PT eval, recommends SNF, case management assisting. DVT Prophylaxis: SCD/Teds/lovenox. Seen today, 07/04/16, no change in management. Awaiting placement. Discharge Planning Patient does not have a place to stay, he also needs regular wound care management, wound is healing well now, needs rehabilitation for long-term placement and wound care. Problem Qualifiers (1) UTI (urinary tract infection): Qualified Code: T83.510A - Urinary tract infection associated with cystostomy catheter, initial encounter (2) Abdominal pain: Qualified Code: R10.13 - Epigastric pain Wil Curtis MD Jul 04, 2016 17:27
[2016-07-04] MEDS: CARISOPRODOL 350 MG TAB PO PRN (18:42)
[2016-07-04 20:00] VITALS: BP 122/60; PULSE 96; RESP 18; TEMP 98.4; O2SAT 95
[2016-07-04] MEDS: ALPRAZolam 1 MG TAB PO PRN (20:50)
[2016-07-05] VITALS: BP 111/61; PULSE 89; RESP 18; TEMP 98; O2SAT 95
[2016-07-05 04:00] VITALS: BP_SYST 58; PULSE 87; RESP 18; TEMP 98.1; O2SAT 96
[2016-07-05 08:00] VITALS: BP 108/56; PULSE 76; RESP 16; TEMP 97.4; O2SAT 96
[2016-07-05] MEDS: PANTOPRAZOLE SOD 40 MG DELAYED RELEASE TAB PO SCH (08:26)
[2016-07-05] MEDS: SODIUM CHLORIDE 0.9% FLUSH 5 ML FLUSH FLUSH SCH ×2 (08:26→21:00)
[2016-07-05] MEDS: GABAPENTIN 400 MG CAP PO SCH ×3 (08:26→17:15)
[2016-07-05] MEDS: FERROUS SULFATE 325 MG (65 MG ELEMENTAL IRON) TAB PO SCH ×2 (08:26→17:15)
[2016-07-05] MEDS: ENOXAPARIN SODIUM 40 MG/0.4 ML SYRINGE SQ SCH (08:27)
[2016-07-05] MEDS: SODIUM HYPOCHLORITE 0.125% 500 ML BTL TOPICAL SCH ×2 (08:27→22:27)
[2016-07-05] MEDS: HYDROmorphone HCL 4 MG TAB PO PRN ×4 (08:27→22:26)
[2016-07-05 12:00] VITALS: BP 119/59; PULSE 88; RESP 16; TEMP 97.2; O2SAT 96
[2016-07-05] MEDS: HYDROmorphone HCL PF 2 MG/ML VIAL IV PUSH PRN (13:27)
[2016-07-05 16:00] VITALS: BP 115/57; PULSE 78; RESP 16; TEMP 98; O2SAT 95
[2016-07-05] MEDS: CARISOPRODOL 350 MG TAB PO PRN (17:15)
[2016-07-05 20:00] VITALS: BP 135/58; PULSE 90; RESP 18; TEMP 97.4; O2SAT 92
[2016-07-05] MEDS: ALPRAZolam 1 MG TAB PO PRN (22:26)
--- NOTE | 2016-07-05 23:53 | HHI.PR ---
Subjective Remarks patient seen today around noon. Patient reports pain is under control. Discussed with nursing. We will change as needed IV Dilaudid with dressing changes to by mouth 2 mg as needed. Objective Vital Signs Date Time Temp Pulse Resp B/P Pulse Ox O2 Delivery O2 Flow Rate FiO2 07/05/16 20:00 97.4 90 18 135/58 92 07/05/16 16:00 98.0 78 16 115/57 95 07/05/16 14:55 18 07/05/16 12:00 97.2 88 16 119/59 96 07/05/16 11:48 Room Air 07/05/16 08:00 97.4 76 16 108/56 96 07/05/16 04:00 98.1 87 18 58/ 96 07/05/16 00:00 98.0 89 18 111/61 95 I/O 07/04/16 07/04/16 07/04/16 07/05/16 07/05/16 07/05/16 06:59 14:59 22:59 06:59 14:59 22:59 Intake Total 840 ml 637 ml 480 ml 720 ml 482 ml Output Total 1750 ml 1500 ml 1600 ml 1800 ml 650 ml Balance -910 ml -863 ml -1120 ml -1080 ml -168 ml Intake Oral 840 ml 630 ml 480 ml 720 ml 480 ml IV Total 7 ml 2 ml Output Urine Total 1750 ml 1500 ml 1600 ml 1800 ml 650 ml Stool Total 0 ml # Bowel Movements 0 0 0 1 Objective Remarks GENERAL: patient lying in bed. Appears comfortable. Alert and oriented x3. SKIN: Warm and dry. 07/05 stage III ulcer overlying left trochanter, as well as stage III ulcer overlying sacrum,appear to Be healing well. No stranding erythema. No exudate. HEAD: Normocephalic. EYES: No scleral icterus. No injection or drainage. NECK: Supple, trachea midline. No JVD. CARDIOVASCULAR: Regular rate and rhythm without murmurs, gallops, or rubs. RESPIRATORY: Breath sounds equal bilaterally. No accessory muscle use. GASTROINTESTINAL: Abdomen soft, non-tender, nondistended. MUSCULOSKELETAL: No cyanosis, or edema. BACK: Nontender without obvious deformity. No CVA tenderness. A/P Assessment and Plan 35-year-old male with PMH of Anxiety, Paraplegia, Neurogenic Bladder s/p Suprapubic Cath, Chronic UTI and Chronic Sacral Decubitus Ulcer who presented for evaluation of sacral wound //Stage IV Chronic Sacral Decubitus Ulcer, Present at time of admission. Recent admit 05/02-05/10 for same, s/p eval by ID and IV Abx, arrangements made for Home Health at time of d/c however pt reports difficulty obtaining care, currently homeless. Patient referred to ED by PCP for assistance with chronic wound management. Afebrile, no leukocytosis. Previous hospitalist discussed with ID and stereotype molder, wounds appear to be healing from previous with no signs of acute infection. Wound culture grew MRSA, likely colonized from superficial swab. No further antibiotics for sacral wounds per ID. Wound care nurse consulted, appreciate recommendations, orders for dressing changes placed. On oral Dilaudid at home for pain control, continue oral Dilaudid 2-4 mg as needed. 0.5 mg IV Dilaudid prn with wound changes as needed for pain. Continue recommendations per plastic surgery. -Add Toradol 30 mg IV every 6 per for breakthrough pain 06/22/16. Sacral wounds healing well. - Discontinue as needed IV Dilaudid for dressing changes. Add 2 mg by mouth Dilaudid for dressing changes. //E Coli/Proteus UTI: UA with evidence of possible UTI. H/o chronic UTI due to neurogenic bladder w/ indwelling cath. Previous urine culture with Escherichia coli and Proteus. Suprapubic cath changed 06/09. ID consulted, appreciated recommendations. Urine culture with E.coli, continue Augmentin, finish 14 days of treatment (stop date 06/23). //Diarrhea in the colostomy bag: Stools improving, C. difficile negative //Neurogenic Bladder: Secondary to Paraplegia. Suprapubic Cath exchanged on . //Paraplegia: At baseline. Continue home medications. Trapeze setup. PT eval , recommends SNF, case management assisting. //DVT Prophylaxis: SCD/Teds/lovenox. pt seen 07/05/16 -discontinue as needed IV Dilaudid. Discharge Planning Patient does not have a place to stay, he also needs regular wound care management, wound is healing well now, needs rehabilitation for long-term placement and wound care.appreciate case management assistance. Lyndon Wilkes MD Jul 05, 2016 23:53
[2016-07-06 00:12] VITALS: BP 119/63; PULSE 84; RESP 18; TEMP 97.9; O2SAT 97
[2016-07-06] MEDS: HYDROmorphone HCL 2 MG TAB PO PRN ×2 (02:28→13:30)
[2016-07-06 04:00] VITALS: BP 114/59; PULSE 85; RESP 18; TEMP 98; O2SAT 100
[2016-07-06] MEDS: HYDROmorphone HCL 4 MG TAB PO PRN ×3 (06:32→16:47)
[2016-07-06 08:00] VITALS: BP 119/60; PULSE 77; RESP 16; TEMP 97.7; O2SAT 96
[2016-07-06] MEDS: SODIUM CHLORIDE 0.9% FLUSH 5 ML FLUSH FLUSH SCH ×2 (09:00→21:00)
[2016-07-06] MEDS: ENOXAPARIN SODIUM 40 MG/0.4 ML SYRINGE SQ SCH (10:27)
[2016-07-06] MEDS: ALPRAZolam 1 MG TAB PO PRN (10:27)
[2016-07-06] MEDS: PANTOPRAZOLE SOD 40 MG DELAYED RELEASE TAB PO SCH (10:27)
[2016-07-06] MEDS: FERROUS SULFATE 325 MG (65 MG ELEMENTAL IRON) TAB PO SCH ×2 (10:28→16:47)
[2016-07-06] MEDS: GABAPENTIN 400 MG CAP PO SCH ×3 (10:28→16:47)
[2016-07-06 12:00] VITALS: BP 114/63; PULSE 91; RESP 16; TEMP 98; O2SAT 96
[2016-07-06] MEDS: SODIUM HYPOCHLORITE 0.125% 500 ML BTL TOPICAL SCH ×2 (13:32→21:27)
[2016-07-06 16:00] VITALS: BP 118/64; PULSE 79; RESP 16; TEMP 97.8; O2SAT 96
[2016-07-06] MEDS ORDERED: HYDROmorphone HCL 2 MG TAB PO PRN (18:00)
[2016-07-06] MEDS: CARISOPRODOL 350 MG TAB PO PRN (18:41)
[2016-07-06 19:55] LABS: BACTERIA, URINE MOD /hpf; BLOOD, URINE MOD (NEG); COMMENT (UR) CULTURE INDICATED; CULTURE IF INDICATED CULTURE INDICATED; GLUCOSE,URINE NEG (NEG); KETONE, URINE NEG (NEG); MUCUS URINE MANY /lpf (OCC); NITRITE,URINE NEG (NEG); PH, URINE 8.5 (5.0-8.5); URINE COLOR YELLOW (YELLW/STRAW)
[2016-07-06 20:00] VITALS: BP 113/66; PULSE 85; RESP 19; TEMP 97.6; TEMP 97.9; O2SAT 96
[2016-07-06] MEDS: diphenhydrAMINE HCL 25 MG CAP PO PRN (21:26)
--- NOTE | 2016-07-06 23:51 | HHI.PR ---
Subjective Remarks patient seen today around 1 PM. Says that he would likely IV Dilaudid before dressing changes instead of by mouth. Discussed that ideally we should have the IV out to avoid infection. Patient denies any nausea, vomiting, chest pain , shortness of breath. He does say that his urine is a little cloudy, similar to last time when he had a UTI. Objective Vital Signs Date Time Temp Pulse Resp B/P Pulse Ox O2 Delivery O2 Flow Rate FiO2 07/06/16 20:00 97.9 85 19 113/66 96 07/06/16 20:00 97.6 85 19 113/66 96 07/06/16 16:00 97.8 79 16 118/64 96 07/06/16 12:00 98.0 91 16 114/63 96 07/06/16 09:15 Room Air 07/06/16 08:00 97.7 77 16 119/60 96 07/06/16 04:00 98.0 85 18 114/59 100 07/06/16 00:12 97.9 84 18 119/63 97 I/O 07/05/16 07/05/16 07/05/16 07/06/16 07/06/16 07/06/16 06:59 14:59 22:59 06:59 14:59 22:59 Intake Total 720 ml 482 ml 480 ml 420 ml 920 ml Output Total 1800 ml 650 ml 650 ml 1000 ml 950 ml Balance -1080 ml -168 ml -170 ml -580 ml -30 ml Intake Oral 720 ml 480 ml 480 ml 420 ml 920 ml IV Total 2 ml 0 ml Output Urine Total 1800 ml 650 ml 650 ml 1000 ml 950 ml # Bowel Movements 0 1 Objective Remarks GENERAL: patient lying in bed. Appears comfortable. Alert and oriented x3. SKIN: Warm and dry. 07/05 stage III ulcer overlying left trochanter, as well as stage III ulcer overlying sacrum,appear to Be healing well. No surrounding erythema. No exudate. HEAD: Normocephalic. EYES: No scleral icterus. No injection or drainage. NECK: Supple, trachea midline. No JVD. CARDIOVASCULAR: Regular rate and rhythm without murmurs, gallops, or rubs. RESPIRATORY: Breath sounds equal bilaterally. No accessory muscle use. GASTROINTESTINAL: Abdomen soft, non-tender, nondistended. MUSCULOSKELETAL: No cyanosis, or edema. BACK: Nontender without obvious deformity. No CVA tenderness. A/P Assessment and Plan 35-year-old male with PMH of Anxiety, Paraplegia, Neurogenic Bladder s/p Suprapubic Cath, Chronic UTI and Chronic Sacral Decubitus Ulcer who presented for evaluation of sacral wound //Stage IV Chronic Sacral Decubitus Ulcer, Present at time of admission. Recent admit 05/02-05/10 for same, s/p eval by ID and IV Abx, arrangements made for Home Health at time of d/c however pt reports difficulty obtaining care, currently homeless. Patient referred to ED by PCP for assistance with chronic wound management. Afebrile, no leukocytosis. Previous hospitalist discussed with ID and sporting goods sales associate, wounds appear to be healing from previous with no signs of acute infection. Wound culture grew MRSA, likely colonized from superficial swab. No further antibiotics for sacral wounds per ID. Wound care nurse consulted, appreciate recommendations, orders for dressing changes placed. On oral Dilaudid at home for pain control, continue oral Dilaudid 2-4 mg as needed. 0.5 mg IV Dilaudid prn with wound changes as needed for pain. Continue recommendations per plastic surgery. -Add Toradol 30 mg IV every 6 per for breakthrough pain 06/22/16. Sacral wounds healing well. - Discontinue as needed IV Dilaudid for dressing changes. Add 2 mg by mouth Dilaudid for dressing changes. -07/06. Increased as needed Dilaudid prior to dressing changes to 4 mg every 8 hours //E Coli/Proteus UTI: UA with evidence of possible UTI. H/o chronic UTI due to neurogenic bladder w/ indwelling cath. Previous urine culture with Escherichia coli and Proteus. Suprapubic cath changed 06/09. ID consulted, appreciated recommendations. Urine culture with E.coli, continue Augmentin, finish 14 days of treatment (stop date 06/23). -07/06patient says his urine has become more cloudy.urinalysis and urine culture pending. //Diarrhea in the colostomy bag: Stools improving, C. difficile negative //Neurogenic Bladder: Secondary to Paraplegia. Suprapubic Cath exchanged on . //Paraplegia: At baseline. Continue home medications. Trapeze setup. PT eval , recommends SNF, case management assisting. //DVT Prophylaxis: SCD/Teds/lovenox. pt seen 07/06/16 -increase as needed by mouth Dilaudid prior dressing changes. Order urine culture do to patient concerning for possible UTI. Discharge Planning Patient does not have a place to stay, he also needs regular wound care management, wound is healing well now, needs rehabilitation for long-term placement and wound care.appreciate case management assistance. Lyndon Wilkes MD Jul 06, 2016 23:51
[2016-07-07] VITALS: BP_SYST 119; BP_SYST 137; BP_DIAS 57; BP_DIAS 81; PULSE 78; PULSE 93; RESP 18; RESP 19; TEMP 97.7; TEMP 98.6; O2SAT 95; O2SAT 96
[2016-07-07 04:00] VITALS: BP 100/54; PULSE 77; RESP 18; TEMP 97.6; O2SAT 96
[2016-07-07] MEDS: HYDROmorphone HCL 4 MG TAB PO PRN ×5 (05:03→21:55)
[2016-07-07 08:22] VITALS: BP 111/77; PULSE 76; RESP 17; TEMP 97.6; O2SAT 95
[2016-07-07] MEDS: SODIUM CHLORIDE 0.9% FLUSH 5 ML FLUSH FLUSH SCH ×2 (08:58→20:28)
[2016-07-07] MEDS: SODIUM HYPOCHLORITE 0.125% 500 ML BTL TOPICAL SCH ×2 (09:00→21:47)
[2016-07-07] MEDS: ENOXAPARIN SODIUM 40 MG/0.4 ML SYRINGE SQ SCH (09:03)
[2016-07-07] MEDS: PANTOPRAZOLE SOD 40 MG DELAYED RELEASE TAB PO SCH (09:03)
[2016-07-07] MEDS: FERROUS SULFATE 325 MG (65 MG ELEMENTAL IRON) TAB PO SCH ×2 (09:03→16:44)
[2016-07-07] MEDS: GABAPENTIN 400 MG CAP PO SCH ×3 (09:03→16:44)
[2016-07-07 12:01] VITALS: BP 105/61; PULSE 77; RESP 18; TEMP 98.2; O2SAT 95
[2016-07-07 16:02] VITALS: BP 114/60; PULSE 88; RESP 18; TEMP 97.4; O2SAT 97
[2016-07-07] MEDS: ALPRAZolam 1 MG TAB PO PRN (21:40)
--- NOTE | 2016-07-07 22:15 | HHI.PR ---
Subjective Remarks pt seen this afternoon. says he need more pain meds prior to dressing changes. he says he hasa chronic problem with pain, follows with [facility]. he says he has neuropathis pain and has been told in the past that he will ever be ever to go rid of his pain, just keep it tolerable. gabapentin already at max dose. incr prn Dilaudid prior to dressing chnages. Objective Vital Signs Date Time Temp Pulse Resp B/P Pulse Ox O2 Delivery O2 Flow Rate FiO2 07/07/16 16:02 97.4 88 18 114/60 97 07/07/16 12:01 98.2 77 18 105/61 95 07/07/16 08:22 97.6 76 17 111/77 95 07/07/16 08:00 Room Air 07/07/16 04:00 97.6 77 18 100/54 96 07/07/16 02:26 Room Air 07/07/16 00:00 98.6 93 19 119/57 95 I/O 07/06/16 07/06/16 07/06/16 07/07/16 07/07/16 07/07/16 06:59 14:59 22:59 06:59 14:59 22:59 Intake Total 420 ml 920 ml 480 ml 240 ml 840 ml Output Total 1000 ml 950 ml 1200 ml 1300 ml 1000 ml Balance -580 ml -30 ml -720 ml -1060 ml -160 ml Intake Oral 420 ml 920 ml 480 ml 240 ml 840 ml IV Total 0 ml Output Urine Total 1000 ml 950 ml 1200 ml 1300 ml 1000 ml Stool Total 0 ml # Bowel Movements 0 0 1 Objective Remarks GENERAL: patient lying in bed. Appears comfortable. Alert and oriented x3. SKIN: Warm and dry. 07/05 stage III ulcer overlying left trochanter, as well as stage III ulcer overlying sacrum,appear to Be healing well. No surrounding erythema. No exudate. HEAD: Normocephalic. EYES: No scleral icterus. No injection or drainage. NECK: Supple, trachea midline. No JVD. CARDIOVASCULAR: Regular rate and rhythm without murmurs, gallops, or rubs. RESPIRATORY: Breath sounds equal bilaterally. No accessory muscle use. GASTROINTESTINAL: Abdomen soft, non-tender, nondistended. colostomy without any surrounding erythema or leakage. MUSCULOSKELETAL: No cyanosis, or edema. BACK: Nontender without obvious deformity. No CVA tenderness. A/P Assessment and Plan 35-year-old male with PMH of Anxiety, Paraplegia, Neurogenic Bladder s/p Suprapubic Cath, Chronic UTI and Chronic Sacral Decubitus Ulcer who presented for evaluation of sacral wound //Stage IV Chronic Sacral Decubitus Ulcer, Present at time of admission. Recent admit 05/02-05/10 for same, s/p eval by ID and IV Abx, arrangements made for Home Health at time of d/c however pt reports difficulty obtaining care, currently homeless. Patient referred to ED by PCP for assistance with chronic wound management. Afebrile, no leukocytosis. Previous hospitalist discussed with ID and postal service window clerk, wounds appear to be healing from previous with no signs of acute infection. Wound culture grew MRSA, likely colonized from superficial swab. No further antibiotics for sacral wounds per ID. Wound care nurse consulted, appreciate recommendations, orders for dressing changes placed. On oral Dilaudid at home for pain control, continue oral Dilaudid 2-4 mg as needed. 0.5 mg IV Dilaudid prn with wound changes as needed for pain. Continue recommendations per plastic surgery. -Add Toradol 30 mg IV every 6 per for breakthrough pain 06/22/16. Sacral wounds healing well. - Discontinue as needed IV Dilaudid for dressing changes. Add 2 mg by mouth Dilaudid for dressing changes. -07/06. Increased as needed Dilaudid prior to dressing changes to 4 mg every 8 hours //E Coli/Proteus UTI: UA with evidence of possible UTI. H/o chronic UTI due to neurogenic bladder w/ indwelling cath. Previous urine culture with Escherichia coli and Proteus. Suprapubic cath changed 06/09. ID consulted, appreciated recommendations. Urine culture with E.coli, continue Augmentin, finish 14 days of treatment (stop date 06/23). -07/06patient says his urine has become more cloudy.urinalysis and urine culture pending. //Diarrhea in the colostomy bag: Stools improving, C. difficile negative //Neurogenic Bladder: Secondary to Paraplegia. Suprapubic Cath exchanged on . //Paraplegia: At baseline. Continue home medications. Trapeze setup. PT eval , recommends SNF, case management assisting. //DVT Prophylaxis: SCD/Teds/lovenox. pt seen 07/07/16 -increase as needed by mouth Dilaudid prior dressing changes again to 6mg. f/u urine culture sensitivities -avoid unnecessary resistance. Discharge Planning Patient does not have a place to stay, he also needs regular wound care management, wound is healing well now, needs rehabilitation for long-term placement and wound care.appreciate case management assistance. Lyndon Wilkes MD Jul 07, 2016 22:15
[2016-07-08] VITALS: BP 121/59; PULSE 80; RESP 20; TEMP 97.5; O2SAT 96
[2016-07-08 04:00] VITALS: BP 109/56; PULSE 77; RESP 18; TEMP 97.3; O2SAT 96
[2016-07-08] MEDS: HYDROmorphone HCL 2 MG TAB PO PRN ×2 (05:19→16:57)
[2016-07-08 07:15] LABS: ALT (GPT) 68 U/L (12-78); ANION GAP 9 MEQ/L (5-15); AST (GOT) 29 U/L (15-37); BICARBONATE 25.7 MEQ/L (21.0-32.0); BLOOD UREA NITROGEN 14 MG/DL (7-18); CHLORIDE 104 MEQ/L (98-107); GLOMERULAR FILTRATION RATE 222 ML/MIN (>89); POTASSIUM 3.8 MEQ/L (3.5-5.1); SODIUM (NA) 139 MEQ/L (136-145)
[2016-07-08 07:17] LABS: ALKALINE PHOSPHATASE 161 U/L (45-117); TOTAL BILIRUBIN ADULT 0.3 MG/DL (0.2-1.0)
[2016-07-08 08:00] VITALS: BP 120/72; PULSE 69; RESP 18; TEMP 98; O2SAT 96
[2016-07-08] MEDS: SODIUM CHLORIDE 0.9% FLUSH 5 ML FLUSH FLUSH SCH ×2 (09:00→21:00)
[2016-07-08 12:00] VITALS: BP 117/57; PULSE 76; RESP 18; TEMP 97.8; O2SAT 97
[2016-07-08] MEDS: SODIUM HYPOCHLORITE 0.125% 500 ML BTL TOPICAL SCH ×2 (12:06→21:23)
[2016-07-08] MEDS: GABAPENTIN 400 MG CAP PO SCH ×3 (12:06→16:58)
[2016-07-08] MEDS: PANTOPRAZOLE SOD 40 MG DELAYED RELEASE TAB PO SCH (12:06)
[2016-07-08] MEDS: FERROUS SULFATE 325 MG (65 MG ELEMENTAL IRON) TAB PO SCH ×2 (12:06→16:57)
[2016-07-08] MEDS: ENOXAPARIN SODIUM 40 MG/0.4 ML SYRINGE SQ SCH (12:07)
[2016-07-08] MEDS: HYDROmorphone HCL 4 MG TAB PO PRN ×2 (12:07→21:21)
[2016-07-08 16:00] VITALS: BP 122/58; PULSE 81; RESP 18; TEMP 98.1; O2SAT 95
[2016-07-08] MEDS: diphenhydrAMINE HCL 25 MG CAP PO PRN (18:49)
[2016-07-08 20:00] VITALS: BP 107/57; PULSE 86; RESP 18; TEMP 98.1; O2SAT 96
[2016-07-08] MEDS: ALPRAZolam 1 MG TAB PO PRN (21:21)
--- NOTE | 2016-07-08 23:45 | HHI.PR ---
Subjective Remarks patient seen this noon around 1 PM. Says she is feeling better than yesterday. Pain is controlled. He has not had a dressing change it, so cannot gauge effectiveness of increased dose of Dilaudid. Objective Vital Signs Date Time Temp Pulse Resp B/P Pulse Ox O2 Delivery O2 Flow Rate FiO2 07/08/16 20:00 98.1 86 18 107/57 96 07/08/16 16:00 98.1 81 18 122/58 95 07/08/16 12:00 97.8 76 18 117/57 97 07/08/16 08:00 98.0 69 18 120/72 96 07/08/16 08:00 Room Air 07/08/16 04:00 97.3 77 18 109/56 96 07/08/16 00:00 97.5 80 20 121/59 96 I/O 07/07/16 07/07/16 07/07/16 07/08/16 07/08/16 07/08/16 06:59 14:59 22:59 06:59 14:59 22:59 Intake Total 240 ml 840 ml 480 ml 240 ml 720 ml Output Total 1300 ml 1000 ml 1250 ml 750 ml 500 ml Balance -1060 ml -160 ml -770 ml -510 ml 220 ml Intake Oral 240 ml 840 ml 480 ml 240 ml 720 ml Output Urine Total 1300 ml 1000 ml 1250 ml 750 ml 500 ml Stool Total 0 ml # Bowel Movements 0 1 0 Result Diagram: 07/08/16 0530 Objective Remarks GENERAL: patient lying in bed. Appears comfortable. Alert and oriented x3. SKIN: Warm and dry. 07/08 stage III ulcer overlying left trochanter, as well as stage III ulcer overlying sacrum,as well as under perineum, all of whichappear to Be healing well. No surrounding erythema. No exudate. HEAD: Normocephalic. EYES: No scleral icterus. No injection or drainage. NECK: Supple, trachea midline. No JVD. CARDIOVASCULAR: Regular rate and rhythm without murmurs, gallops, or rubs. RESPIRATORY: Breath sounds equal bilaterally. No accessory muscle use. GASTROINTESTINAL: Abdomen soft, non-tender, nondistended. colostomy without any surrounding erythema or leakage. MUSCULOSKELETAL: No cyanosis, or edema. BACK: Nontender without obvious deformity. No CVA tenderness. A/P Assessment and Plan 35-year-old male with PMH of Anxiety, Paraplegia, Neurogenic Bladder s/p Suprapubic Cath, Chronic UTI and Chronic Sacral Decubitus Ulcer who presented for evaluation of sacral wound //Stage IV Chronic Sacral Decubitus Ulcer, Present at time of admission. Recent admit 05/02-05/10 for same, s/p eval by ID and IV Abx, arrangements made for Home Health at time of d/c however pt reports difficulty obtaining care, currently homeless. Patient referred to ED by PCP for assistance with chronic wound management. Afebrile, no leukocytosis. Previous hospitalist discussed with ID and global head advertiser solutions, wounds appear to be healing from previous with no signs of acute infection. Wound culture grew MRSA, likely colonized from superficial swab. No further antibiotics for sacral wounds per ID. Wound care nurse consulted, appreciate recommendations, orders for dressing changes placed. On oral Dilaudid at home for pain control, continue oral Dilaudid 2-4 mg as needed. 0.5 mg IV Dilaudid prn with wound changes as needed for pain. Continue recommendations per plastic surgery. -Add Toradol 30 mg IV every 6 per for breakthrough pain 06/22/16. Sacral wounds healing well. - Discontinue as needed IV Dilaudid for dressing changes. Add 2 mg by mouth Dilaudid for dressing changes. -07/06. Increased as needed Dilaudid prior to dressing changes to 4 mg every 8 hours -07/07. Increase as needed Dilaudid prior dressing changes to 6 mg. -07/08. Pain improved without having received any medication prior to dressing changes yet. Continue monitor. //E Coli/Proteus UTI: UA with evidence of possible UTI. H/o chronic UTI due to neurogenic bladder w/ indwelling cath. Previous urine culture with Escherichia coli and Proteus. Suprapubic cath changed 06/09. ID consulted, appreciated recommendations. Urine culture with E.coli, continue Augmentin, finish 14 days of treatment (stop date 06/23). -07/06patient says his urine has become more cloudy.urinalysis and urine culture pending. -07/08. Followup cultures and sensitivities. No signs of acute infection. Holding off on antibiotics for this time, as would like to avoid worsening resistance profile for this patient. //Diarrhea in the colostomy bag: Stools improving, C. difficile negative //Neurogenic Bladder: Secondary to Paraplegia. Suprapubic Cath exchanged on . //Paraplegia: At baseline. Continue home medications. Trapeze setup. PT eval , recommends SNF, case management assisting. //DVT Prophylaxis: SCD/Teds/lovenox. pt seen 07/07/16 -increase as needed by mouth Dilaudid prior dressing changes again to 6mg. f/u urine culture sensitivities -avoid unnecessary resistance. Discharge Planning Patient does not have a place to stay, he also needs regular wound care management, wound is healing well now, needs rehabilitation for long-term placement and wound care.appreciate case management assistance. Lyndon Wilkes MD Jul 08, 2016 23:45
[2016-07-09] VITALS: BP 126/71; PULSE 94; RESP 18; TEMP 97.5; O2SAT 97
[2016-07-09] MEDS: HYDROmorphone HCL 2 MG TAB PO PRN ×3 (00:29→23:36)
[2016-07-09 04:00] VITALS: BP 117/65; PULSE 93; RESP 16; TEMP 98.1; O2SAT 97
[2016-07-09 08:00] VITALS: BP 108/55; PULSE 82; RESP 18; TEMP 97.7; O2SAT 95
[2016-07-09] MEDS: SODIUM CHLORIDE 0.9% FLUSH 5 ML FLUSH FLUSH SCH ×2 (08:51→20:53)
[2016-07-09] MEDS: PANTOPRAZOLE SOD 40 MG DELAYED RELEASE TAB PO SCH (08:51)
[2016-07-09] MEDS: SODIUM HYPOCHLORITE 0.125% 500 ML BTL TOPICAL SCH ×2 (08:51→23:40)
[2016-07-09] MEDS: GABAPENTIN 400 MG CAP PO SCH ×3 (08:51→16:46)
[2016-07-09] MEDS: ENOXAPARIN SODIUM 40 MG/0.4 ML SYRINGE SQ SCH (08:51)
[2016-07-09] MEDS: FERROUS SULFATE 325 MG (65 MG ELEMENTAL IRON) TAB PO SCH ×2 (08:51→16:46)
[2016-07-09] MEDS: HYDROmorphone HCL 4 MG TAB PO PRN ×3 (08:53→20:50)
[2016-07-09] MEDS: cefTRIAXone INJ 1,000 MG in SODIUM CHLORIDE 0.9% INJ 100 ML IV SCH (10:55)
[2016-07-09] MEDS: ONDANSETRON HCL 4 MG/2 ML VIAL IVP PRN (11:04)
[2016-07-09 12:00] VITALS: BP 133/63; PULSE 83; RESP 18; TEMP 97.8; O2SAT 96
[2016-07-09 16:00] VITALS: BP 157/81; PULSE 120; RESP 20; TEMP 98.4; O2SAT 100
--- NOTE | 2016-07-09 17:40 | RADRPT ---
EXAM DATE/TIME: 07/09/2016 17:06 [facility] COMPARISON: CT ABDOMEN & PELVIS W CONTRAST, June 08, 2016, 18:40. INDICATIONS : Evaluate for obstruction. MEDICAL HISTORY : None. SURGICAL HISTORY : Colostomy. ENCOUNTER: Initial ACUITY: 2 days PAIN SCORE: 3/10 LOCATION: Bilateral abdomen. FINDINGS: A single left lateral decubitus view of the abdomen shows a moderate amount of stool throughout the a scending colon. Gas filled loops of nondilated small bowel are observed. A couple small air-fluid lev els are noted. No pneumoperitoneum. The visualized portions of the visceral structures are unremarkab le. Bilateral hip dysplasia partially seen. CONCLUSION: 1. Moderate amount of stool. 2. No dilated loops of bowel or pneumoperitoneum. 3. Bilateral hip dysplasia. Wes Callejas Jr., MD on July 09, 2016 at 17:33 Board Certified Radiologist. This report was verified electronically.
[2016-07-09] MEDS: diphenhydrAMINE HCL 25 MG CAP PO PRN (18:22)
[2016-07-09 20:00] VITALS: BP 110/57; PULSE 117; RESP 18; TEMP 98.4; O2SAT 96
--- NOTE | 2016-07-09 22:12 | HHI.PR ---
Subjective Remarks patient seen today around noon. Sleeping, wakes up for exam. Says he is feeling all right. Pain controlled today. Denies any chest pain, shortness of breath, nausea, vomiting . Called later by nursing around 3 PM to report that patient is experiencing some abdominal distention, decreased ostomy output. Abdominal film with increased stool Objective Vital Signs Date Time Temp Pulse Resp B/P Pulse Ox O2 Delivery O2 Flow Rate FiO2 07/09/16 16:00 98.4 120 20 157/81 100 07/09/16 12:00 97.8 83 18 133/63 96 07/09/16 08:00 Room Air 07/09/16 08:00 97.7 82 18 108/55 95 07/09/16 04:00 98.1 93 16 117/65 97 07/09/16 00:00 97.5 94 18 126/71 97 I/O 07/08/16 07/08/16 07/08/16 07/09/16 07/09/16 07/09/16 07:00 15:00 23:00 07:00 15:00 23:00 Intake Total 240 ml 720 ml 1560 ml 480 ml 580 ml Output Total 750 ml 500 ml 3500 ml 550 ml 600 ml Balance -510 ml 220 ml -1940 ml -70 ml -20 ml Intake Oral 240 ml 720 ml 1560 ml 480 ml 480 ml IV Total 100 ml Output Urine Total 750 ml 500 ml 3500 ml 550 ml 600 ml Stool Total 0 ml 0 ml Result Diagram: 07/08/16 0530 Objective Remarks GENERAL: patient lying in bed. sleeping, wakes up for exam. Appears comfortable. Alert and oriented x3. SKIN: Warm and dry. 07/08 stage III ulcer overlying left trochanter, as well as stage III ulcer overlying sacrum,as well as under perineum, all of which appear to Be healing well. No surrounding erythema. No exudate. HEAD: Normocephalic. EYES: No scleral icterus. No injection or drainage. NECK: Supple, trachea midline. No JVD. CARDIOVASCULAR: Regular rate and rhythm without murmurs, gallops, or rubs. RESPIRATORY: Breath sounds equal bilaterally. No accessory muscle use. GASTROINTESTINAL: Abdomen soft, non-tender, nondistended. colostomy without any surrounding erythema or leakage. MUSCULOSKELETAL: No cyanosis, or edema. BACK: Nontender without obvious deformity. No CVA tenderness. A/P Assessment and Plan 35-year-old male with PMH of Anxiety, Paraplegia, Neurogenic Bladder s/p Suprapubic Cath, Chronic UTI and Chronic Sacral Decubitus Ulcer who presented for evaluation of sacral wound //Stage IV Chronic Sacral Decubitus Ulcer, Present at time of admission. Recent admit 05/02-05/10 for same, s/p eval by ID and IV Abx, arrangements made for Home Health at time of d/c however pt reports difficulty obtaining care, currently homeless. Patient referred to ED by PCP for assistance with chronic wound management. Afebrile, no leukocytosis. Previous hospitalist discussed with ID and archaeologist, wounds appear to be healing from previous with no signs of acute infection. Wound culture grew MRSA, likely colonized from superficial swab. No further antibiotics for sacral wounds per ID. Wound care nurse consulted, appreciate recommendations, orders for dressing changes placed. On oral Dilaudid at home for pain control, continue oral Dilaudid 2-4 mg as needed. 0.5 mg IV Dilaudid prn with wound changes as needed for pain. Continue recommendations per plastic surgery. -Add Toradol 30 mg IV every 6 per for breakthrough pain 06/22/16. Sacral wounds healing well. - Discontinue as needed IV Dilaudid for dressing changes. Add 2 mg by mouth Dilaudid for dressing changes. -07/06. Increased as needed Dilaudid prior to dressing changes to 4 mg every 8 hours -07/07. Increase as needed Dilaudid prior dressing changes to 6 mg. -07/08. Pain improved without having received any medication prior to dressing changes yet. Continue monitor. -07/09. Pain controlled. Continue monitor. //E Coli/Proteus UTI: UA with evidence of possible UTI. H/o chronic UTI due to neurogenic bladder w/ indwelling cath. Previous urine culture with Escherichia coli and Proteus. Suprapubic cath changed 06/09. ID consulted, appreciated recommendations. Urine culture with E.coli, continue Augmentin, finish 14 days of treatment (stop date 06/23). -07/06patient says his urine has become more cloudy.urinalysis and urine culture pending. -07/08. Followup cultures and sensitivities. No signs of acute infection. Holding off on antibiotics for this time, as would like to avoid worsening resistance profile for this patient. -07/09. Escherichia coli sensitive to ceftriaxone. Start ceftriaxone. Consult urology for exchange of suprapubic catheter. //constipation. 07/09. Abdominal distention, decreased ostomy output. Abdominal film with increased stool. Cathartics ordered. //Diarrhea in the colostomy bag: appears to have resolvedC. difficile negative //Neurogenic Bladder: Secondary to Paraplegia. Suprapubic Cath exchanged on . //Paraplegia: At baseline. Continue home medications. Trapeze setup. PT eval , recommends SNF, case management assisting. //DVT Prophylaxis: SCD/Teds/lovenox. pt seen 07/07/16 -increase as needed by mouth Dilaudid prior dressing changes again to 6mg. f/u urine culture sensitivities -avoid unnecessary resistance. Discharge Planning Patient does not have a place to stay, he also needs regular wound care management, wound is healing well now, needs rehabilitation for long-term placement and wound care.appreciate case management assistance. Lyndon Wilkes MD Jul 09, 2016 22:12
[2016-07-10] VITALS: BP 134/62; PULSE 119; RESP 18; TEMP 99.1; O2SAT 92
[2016-07-10 04:00] VITALS: BP 128/64; PULSE 108; RESP 18; TEMP 98.5; O2SAT 95
[2016-07-10] MEDS: HYDROmorphone HCL 4 MG TAB PO PRN ×4 (04:38→22:22)
[2016-07-10 08:00] VITALS: BP 131/58; PULSE 98; RESP 20; TEMP 97.7; O2SAT 96
[2016-07-10] MEDS: SODIUM HYPOCHLORITE 0.125% 500 ML BTL TOPICAL SCH ×2 (09:00→22:23)
[2016-07-10] MEDS: SODIUM CHLORIDE 0.9% FLUSH 5 ML FLUSH FLUSH SCH ×2 (09:00→22:22)
[2016-07-10] MEDS: GABAPENTIN 400 MG CAP PO SCH ×3 (09:04→17:25)
[2016-07-10] MEDS: FERROUS SULFATE 325 MG (65 MG ELEMENTAL IRON) TAB PO SCH ×2 (09:04→17:25)
[2016-07-10] MEDS: cefTRIAXone INJ 1,000 MG in SODIUM CHLORIDE 0.9% INJ 100 ML IV SCH (09:05)
[2016-07-10] MEDS: PANTOPRAZOLE SOD 40 MG DELAYED RELEASE TAB PO SCH (09:05)
[2016-07-10] MEDS: ENOXAPARIN SODIUM 40 MG/0.4 ML SYRINGE SQ SCH (09:05)
[2016-07-10] MEDS ORDERED: MAGNESIUM HYDROXIDE SUSP 30 ML CUP PO ONE (09:30)
[2016-07-10] MEDS ORDERED: DOCUSATE SODIUM 50 MG/SENNA 8.6 MG TAB PO ONE (09:30)
[2016-07-10] MEDS: diphenhydrAMINE HCL 25 MG CAP PO PRN (10:20)
[2016-07-10 12:00] VITALS: BP 129/67; PULSE 94; RESP 20; TEMP 97.8; O2SAT 97
[2016-07-10 12:57] LABS: AUTOMATED NEUTROPHIL # 5.6 TH/MM3 (1.8-7.7); BASOPHIL % 0.2 % (0.0-2.0); EOSINOPHIL # 0.2 TH/MM3 (0-0.4); EOSINOPHIL % 2.4 % (0.0-4.0); HEMATOCRIT 33.1 % (39.0-51.0); HEMO FLAGS DIFF FINAL; LYMPH % 31.4 % (9.0-44.0); MEAN CELL VOLUME 80.7 FL (80.0-100.0); MEAN CORPUSCULAR HEMOGLOBIN 26.6 PG (27.0-34.0); MONO % 7.5 % (0.0-8.0); NEUT % 58.5 % (16.0-70.0); PLATELET COUNT 436 TH/MM3 (150-450); RED CELL DISTRIBUTION WIDTH 19.8 % (11.6-17.2); WHITE BLOOD COUNT 9.6 TH/MM3 (4.0-11.0)
[2016-07-10 13:21] LABS: ANION GAP 9 MEQ/L (5-15); AST (GOT) 26 U/L (15-37); BICARBONATE 24.9 MEQ/L (21.0-32.0); BLOOD UREA NITROGEN 14 MG/DL (7-18); CHLORIDE 105 MEQ/L (98-107); GLOMERULAR FILTRATION RATE 184 ML/MIN (>89); POTASSIUM 3.7 MEQ/L (3.5-5.1); SODIUM (NA) 139 MEQ/L (136-145)
[2016-07-10 13:28] LABS: ALKALINE PHOSPHATASE 160 U/L (45-117); ALT (GPT) 64 U/L (12-78); TOTAL BILIRUBIN ADULT 0.3 MG/DL (0.2-1.0)
[2016-07-10 16:00] VITALS: BP 131/64; PULSE 91; RESP 20; TEMP 98.3; O2SAT 96
[2016-07-10] MEDS: HYDROmorphone HCL 2 MG TAB PO PRN (17:25)
[2016-07-10 20:00] VITALS: BP 140/66; PULSE 81; RESP 20; TEMP 97.4; O2SAT 96
[2016-07-10] MEDS: ALPRAZolam 1 MG TAB PO PRN (23:21)
--- NOTE | 2016-07-10 23:32 | HHI.PR ---
Subjective Remarks patient seen today around 11 AM. Says he is feeling all right. Pain is controlled. Colostomy now putting out stool. Denies any pain. Discussed with patient we will start daily senna to prevent constipation on narcotics. Objective Vital Signs Date Time Temp Pulse Resp B/P Pulse Ox O2 Delivery O2 Flow Rate FiO2 07/10/16 20:00 97.4 81 20 140/66 96 07/10/16 16:00 98.3 91 20 131/64 96 07/10/16 12:00 97.8 94 20 129/67 97 07/10/16 08:00 Room Air 07/10/16 08:00 97.7 98 20 131/58 96 07/10/16 04:00 98.5 108 18 128/64 95 07/10/16 00:00 99.1 119 18 134/62 92 I/O 07/09/16 07/09/16 07/09/16 07/10/16 07/10/16 07/10/16 07:00 15:00 23:00 07:00 15:00 23:00 Intake Total 480 ml 580 ml 480 ml 480 ml 1200 ml Output Total 550 ml 600 ml 1200 ml 1350 ml 350 ml Balance -70 ml -20 ml -720 ml -870 ml 850 ml Intake Oral 480 ml 480 ml 480 ml 480 ml 1200 ml IV Total 100 ml Output Urine Total 550 ml 600 ml 1200 ml 1350 ml 350 ml Stool Total 0 ml 0 ml # Bowel Movements 0 Result Diagram: 07/10/16 1215 07/10/16 1215 Objective Remarks GENERAL: patient lying in bed. awake. Appears comfortable. Alert and oriented x3. SKIN: Warm and dry. 07/08 stage III ulcer overlying left trochanter, as well as stage III ulcer overlying sacrum,as well as under perineum, all of which appear to Be healing well. No surrounding erythema. No exudate. HEAD: Normocephalic. EYES: No scleral icterus. No injection or drainage. NECK: Supple, trachea midline. No JVD. CARDIOVASCULAR: Regular rate and rhythm without murmurs, gallops, or rubs. RESPIRATORY: Breath sounds equal bilaterally. No accessory muscle use. GASTROINTESTINAL: Abdomen soft, non-tender, nondistended. colostomy without any surrounding erythema or leakage.stool present. MUSCULOSKELETAL: No cyanosis, or edema. BACK: Nontender without obvious deformity. No CVA tenderness. A/P Assessment and Plan 35-year-old male with PMH of Anxiety, Paraplegia, Neurogenic Bladder s/p Suprapubic Cath, Chronic UTI and Chronic Sacral Decubitus Ulcer who presented for evaluation of sacral wound //Stage IV Chronic Sacral Decubitus Ulcer, Present at time of admission. Recent admit 05/02-05/10 for same, s/p eval by ID and IV Abx, arrangements made for Home Health at time of d/c however pt reports difficulty obtaining care, currently homeless. Patient referred to ED by PCP for assistance with chronic wound management. Afebrile, no leukocytosis. Previous hospitalist discussed with ID and engineering instructor, wounds appear to be healing from previous with no signs of acute infection. Wound culture grew MRSA, likely colonized from superficial swab. No further antibiotics for sacral wounds per ID. Wound care nurse consulted, appreciate recommendations, orders for dressing changes placed. On oral Dilaudid at home for pain control, continue oral Dilaudid 2-4 mg as needed. 0.5 mg IV Dilaudid prn with wound changes as needed for pain. Continue recommendations per plastic surgery. -Add Toradol 30 mg IV every 6 per for breakthrough pain 06/22/16. Sacral wounds healing well. - Discontinue as needed IV Dilaudid for dressing changes. Add 2 mg by mouth Dilaudid for dressing changes. -07/06. Increased as needed Dilaudid prior to dressing changes to 4 mg every 8 hours -07/07. Increase as needed Dilaudid prior dressing changes to 6 mg. -07/08. Pain improved without having received any medication prior to dressing changes yet. Continue monitor. -07/09. Pain controlled. Continue monitor. //E Coli/Proteus UTI: UA with evidence of possible UTI. H/o chronic UTI due to neurogenic bladder w/ indwelling cath. Previous urine culture with Escherichia coli and Proteus. Suprapubic cath changed 06/09. ID consulted, appreciated recommendations. Urine culture with E.coli, continue Augmentin, finish 14 days of treatment (stop date 06/23). -07/06patient says his urine has become more cloudy.urinalysis and urine culture pending. -07/08. Followup cultures and sensitivities. No signs of acute infection. Holding off on antibiotics for this time, as would like to avoid worsening resistance profile for this patient. -07/09. Escherichia coli sensitive to ceftriaxone. Start ceftriaxone. Consult urology for exchange of suprapubic catheter. -07/10. Exchange suprapubic catheter. Continue antibiotics. //constipation. 07/09. Abdominal distention, decreased ostomy output. Abdominal film with increased stool. Cathartics ordered. -07/10start daily senna to prevent constipation on narcotics. //Diarrhea in the colostomy bag: appears to have resolvedC. difficile negative //Neurogenic Bladder: Secondary to Paraplegia. Suprapubic Cath exchanged on . //Paraplegia: At baseline. Continue home medications. Trapeze setup. PT eval , recommends SNF, case management assisting. //DVT Prophylaxis: SCD/Teds/lovenox. Discharge Planning Patient does not have a place to stay, he also needs regular wound care management, wound is healing well now, needs rehabilitation for long-term placement and wound care.appreciate case management assistance. Lyndon Wilkes MD Jul 10, 2016 23:32
[2016-07-11 00:47] VITALS: BP 138/65; PULSE 85; RESP 20; TEMP 97.2; O2SAT 97
[2016-07-11] MEDS: HYDROmorphone HCL 4 MG TAB PO PRN ×5 (03:18→20:27)
[2016-07-11 04:00] VITALS: BP 128/96; PULSE 18; RESP 18; TEMP 97.7; O2SAT 96
[2016-07-11 08:00] VITALS: BP 111/58; PULSE 72; RESP 20; TEMP 98.1; O2SAT 97
[2016-07-11] MEDS: PANTOPRAZOLE SOD 40 MG DELAYED RELEASE TAB PO SCH (08:50)
[2016-07-11] MEDS: FERROUS SULFATE 325 MG (65 MG ELEMENTAL IRON) TAB PO SCH ×2 (08:50→16:52)
[2016-07-11] MEDS: GABAPENTIN 400 MG CAP PO SCH ×3 (08:50→16:52)
[2016-07-11] MEDS: SODIUM CHLORIDE 0.9% FLUSH 5 ML FLUSH FLUSH SCH ×2 (08:51→20:25)
[2016-07-11] MEDS: SODIUM HYPOCHLORITE 0.125% 500 ML BTL TOPICAL SCH ×2 (08:51→20:30)
[2016-07-11] MEDS: cefTRIAXone INJ 1,000 MG in SODIUM CHLORIDE 0.9% INJ 100 ML IV SCH (08:51)
[2016-07-11] MEDS: DOCUSATE SODIUM 50 MG/SENNA 8.6 MG TAB PO SCH (08:51)
[2016-07-11] MEDS: ENOXAPARIN SODIUM 40 MG/0.4 ML SYRINGE SQ SCH (08:51)
[2016-07-11 12:00] VITALS: BP 113/59; PULSE 66; RESP 16; TEMP 97.2; O2SAT 97
--- NOTE | 2016-07-11 12:36 | MB ---
cc: ROSSY GAMBOA MD DATE OF CONSULTATION 07/10/2016 REASON FOR CONSULTATION 1. Neurogenic bladder 2. Chronic urinary tract infection 3. Change of suprapubic catheter HISTORY OF PRESENT ILLNESS This patient is a 35-year-old paraplegic male with a neurogenic bladder status post suprapubic catheter for the last several years was admitted for evaluation of a stage V sacral decubitus ulcer. The patient initially had his suprapubic catheter last seen on June 09 in the ER was upon presentation. He usually changes it every month per himself for the last couple years. The patient currently denies any pain. Denies any fevers, chills, nausea, or vomiting at this time. He is currently on IV antibiotics for his urinary tract infection. He states he changes his suprapubic catheter on a regular basis every month without any issues. He denies flank pain at this time. Denies family history of prostate cancer. Denies a history of kidney stones as well. REVIEW OF SYSTEMS See HPI otherwise all systems reviewed otherwise are negative. PAST MEDICAL HISTORY Significant for: 1. Paraplegia 2. Neurogenic bladder 3. Chronic urinary tract infections 4. Sacral decubitus ulcer 5. Anxiety PAST SURGICAL HISTORY 1. Status post suprapubic catheter insertion 2. Status post colostomy ALLERGIES INCLUDE MORPHINE AND VANCOMYCIN. FAMILY HISTORY Negative for nephrolithiasis, negative for genitourinary malignancies. SOCIAL HISTORY Occasional alcohol. Denies tobacco. He occasionally smokes marijuana. PHYSICAL EXAMINATION VITAL SIGNS: Temperature 98.5, pulse 63, respiratory rate 12, blood pressure 110/57, sat 97% on room air. GENERAL: He is alert and oriented x3 in no acute distress pleasant young black male who appears his stated age. HEAD, EYES, EARS, NOSE, AND THROAT: Head is normocephalic, atraumatic. Eyes, pupils equal round reactive to light. Extraocular muscles intact. No scleral icterus. NECK: Supple. Trachea is midline. CARDIOVASCULAR: Heart is regular rate and rhythm. No murmurs or rubs or gallops. RESPIRATORY: Clear to auscultation bilaterally. No rhonchi or wheezing. GASTROINTESTINAL: Abdomen is soft, nontender and nondistended. Bowel sounds are normal and his colostomy is pink and healthy. Suprapubic catheter currently in place draining cloudy urine. MUSCULOSKELETAL: Extremities without clubbing, cyanosis or edema. He is paraplegic. PSYCH: Normal affect. SKIN: He has a stage V decubitus ulcer. No other rashes. LABORATORY DATA White count 9.6, hemoglobin 10.9, hematocrit 32.1, platelet count 436. Sodium 139, potassium 3.7, chloride 105, bicarb 24.9, BUN 14, creatinine 0.60, glucose 119. His most recent urine culture grew E-coli. IMAGING STUDIES CT of the abdomen and pelvis without contrast images were reviewed, agree with radiologist's report. Kidneys appeared to be normal with no hydronephrosis or stones. ASSESSMENT The patient is a 35-year-old paraplegic male with a neurogenic bladder managed with a suprapubic catheter which was last changed on June 09, 2016, currently being treated with IV antibiotics for a urinary tract infection. PLAN The suprapubic catheter was changed without difficulty today. A 22-Thai catheter was used as a suprapubic catheter which he uses on a monthly basis. Recommend continuing IV antibiotics. His next suprapubic catheter case his scheduled for August 10 in which he can do on his own if he is out of the hospital. Thank you for this consult and allowing me to participate in the care of your patient. Please call if there are any questions. MD LISA Castrejon/GEOVANY /10:06 AM /12:22 PM
[2016-07-11 16:00] VITALS: BP 130/70; PULSE 80; RESP 20; TEMP 97.5; O2SAT 92
[2016-07-11] MEDS: CARISOPRODOL 350 MG TAB PO PRN (18:56)
[2016-07-11 20:30] VITALS: BP 131/72; PULSE 76; RESP 16; TEMP 97.4; O2SAT 96
--- NOTE | 2016-07-11 23:31 | HHI.PR ---
Subjective Remarks patient seen today around noon. Sleeping. Wakes up for exam. Reports pain is controlled. Denies any chest pain or shortness of breath. Denies any nausea or vomiting. Good ostomy output. Objective Vital Signs Date Time Temp Pulse Resp B/P Pulse Ox O2 Delivery O2 Flow Rate FiO2 07/11/16 20:30 97.4 76 16 131/72 96 07/11/16 16:00 97.5 80 20 130/70 92 07/11/16 12:00 97.2 66 16 113/59 97 07/11/16 08:00 98.1 72 20 111/58 97 07/11/16 08:00 Room Air 07/11/16 04:00 97.7 18 18 128/96 96 07/11/16 00:47 97.2 85 20 138/65 97 I/O 07/10/16 07/10/16 07/10/16 07/11/16 07/11/16 07/11/16 07:00 15:00 23:00 07:00 15:00 23:00 Intake Total 480 ml 1200 ml 820 ml 720 ml Output Total 1350 ml 350 ml 2255 ml 1350 ml 800 ml Balance -870 ml 850 ml -2255 ml -530 ml -80 ml Intake Oral 480 ml 1200 ml 720 ml 720 ml IV Total 100 ml Output Urine Total 1350 ml 350 ml 2255 ml 1350 ml 800 ml Stool Total 0 ml # Bowel Movements 0 Result Diagram: 07/10/16 1215 07/10/16 1215 Objective Remarks GENERAL: patient lying in bed. sleeping, wakes up for exam.Appears comfortable. Alert and oriented x3. SKIN: Warm and dry. 07/08 stage III ulcer overlying left trochanter, as well as stage III ulcer overlying sacrum,as well as under perineum, all of which appear to Be healing well. No surrounding erythema. No exudate. HEAD: Normocephalic. EYES: No scleral icterus. No injection or drainage. NECK: Supple, trachea midline. No JVD. CARDIOVASCULAR: Regular rate and rhythm without murmurs, gallops, or rubs. RESPIRATORY: Breath sounds equal bilaterally. No accessory muscle use. GASTROINTESTINAL: Abdomen soft, non-tender, nondistended. colostomy without any surrounding erythema or leakage. stool present. MUSCULOSKELETAL: No cyanosis, or edema. BACK: Nontender without obvious deformity. No CVA tenderness. A/P Assessment and Plan 35-year-old male with PMH of Anxiety, Paraplegia, Neurogenic Bladder s/p Suprapubic Cath, Chronic UTI and Chronic Sacral Decubitus Ulcer who presented for evaluation of sacral wound //Stage IV Chronic Sacral Decubitus Ulcer, Present at time of admission. Recent admit 05/02-05/10 for same, s/p eval by ID and IV Abx, arrangements made for Home Health at time of d/c however pt reports difficulty obtaining care, currently homeless. Patient referred to ED by PCP for assistance with chronic wound management. Afebrile, no leukocytosis. Previous hospitalist discussed with ID and manager costing, wounds appear to be healing from previous with no signs of acute infection. Wound culture grew MRSA, likely colonized from superficial swab. No further antibiotics for sacral wounds per ID. Wound care nurse consulted, appreciate recommendations, orders for dressing changes placed. On oral Dilaudid at home for pain control, continue oral Dilaudid 2-4 mg as needed. 0.5 mg IV Dilaudid prn with wound changes as needed for pain. Continue recommendations per plastic surgery. -Add Toradol 30 mg IV every 6 per for breakthrough pain 06/22/16. Sacral wounds healing well. - Discontinue as needed IV Dilaudid for dressing changes. Add 2 mg by mouth Dilaudid for dressing changes. -07/06. Increased as needed Dilaudid prior to dressing changes to 4 mg every 8 hours -07/07. Increase as needed Dilaudid prior dressing changes to 6 mg. -07/08. Pain improved without having received any medication prior to dressing changes yet. Continue monitor. -07/09. Pain controlled. Continue monitor. //E Coli/Proteus UTI: UA with evidence of possible UTI. H/o chronic UTI due to neurogenic bladder w/ indwelling cath. Previous urine culture with Escherichia coli and Proteus. Suprapubic cath changed 06/09. ID consulted, appreciated recommendations. Urine culture with E.coli, continue Augmentin, finish 14 days of treatment (stop date 06/23). -07/06patient says his urine has become more cloudy.urinalysis and urine culture pending. -07/08. Followup cultures and sensitivities. No signs of acute infection. Holding off on antibiotics for this time, as would like to avoid worsening resistance profile for this patient. -07/09. Escherichia coli sensitive to ceftriaxone. Start ceftriaxone. Consult urology for exchange of suprapubic catheter. -07/10. Exchange suprapubic catheter. Continue antibiotics. //constipation. 07/09. Abdominal distention, decreased ostomy output. Abdominal film with increased stool. Cathartics ordered. -07/10start daily senna to prevent constipation on narcotics. -07/11. Continues with good stool output. Continue daily senna. //Diarrhea in the colostomy bag: appears to have resolvedC. difficile negative //Neurogenic Bladder: Secondary to Paraplegia. Suprapubic Cath exchanged on . //Paraplegia: At baseline. Continue home medications. Trapeze setup. PT eyal , recommends SNF, case management assisting. //DVT Prophylaxis: SCD/Teds/lovenox. Discharge Planning Patient does not have a place to stay, he also needs regular wound care management, wound is healing well now, needs rehabilitation for long-term placement and wound care.appreciate case management assistance. Lyndon Wilkse MD Jul 11, 2016 23:31
[2016-07-12] VITALS (7 sets, daily range): BP systolic 116–135; BP diastolic 57–67; PULSE 68–81; RESP 16–20; TEMP 97.5–98.4; O2SAT 92–99
[2016-07-12] MEDS: HYDROmorphone HCL 2 MG TAB PO PRN ×2 (00:25→17:32)
[2016-07-12] MEDS: diphenhydrAMINE HCL 25 MG CAP PO PRN ×2 (01:26→10:20)
[2016-07-12] MEDS: HYDROmorphone HCL 4 MG TAB PO PRN ×4 (04:58→22:10)
[2016-07-12] MEDS: SODIUM HYPOCHLORITE 0.125% 500 ML BTL TOPICAL SCH ×2 (09:00→22:12)
[2016-07-12] MEDS: FERROUS SULFATE 325 MG (65 MG ELEMENTAL IRON) TAB PO SCH ×2 (09:00→17:31)
[2016-07-12] MEDS: PANTOPRAZOLE SOD 40 MG DELAYED RELEASE TAB PO SCH (09:12)
[2016-07-12] MEDS: GABAPENTIN 400 MG CAP PO SCH ×3 (09:12→17:32)
[2016-07-12] MEDS: SODIUM CHLORIDE 0.9% FLUSH 5 ML FLUSH FLUSH SCH ×2 (09:12→22:11)
[2016-07-12] MEDS: DOCUSATE SODIUM 50 MG/SENNA 8.6 MG TAB PO SCH (09:12)
[2016-07-12] MEDS: ENOXAPARIN SODIUM 40 MG/0.4 ML SYRINGE SQ SCH (09:13)
[2016-07-12] MEDS: cefTRIAXone INJ 1,000 MG in SODIUM CHLORIDE 0.9% INJ 100 ML IV SCH (09:13)
--- NOTE | 2016-07-12 14:40 | HHI.PR ---
Subjective Remarks Patient seen today around 1:30 PM. Says he is feeling well. His pain is controlled. Denies any chest pain shortness breath. Denies any nausea or vomiting. Still with good ostomy output. Stress with nursing. No acute changes. Objective Vital Signs Date Time Temp Pulse Resp B/P Pulse Ox O2 Delivery O2 Flow Rate FiO2 07/12/16 12:00 97.6 74 20 116/66 97 07/12/16 09:09 Room Air 07/12/16 08:00 97.6 69 20 131/57 97 07/12/16 04:00 98.4 68 16 122/67 96 07/12/16 00:00 98.0 80 16 135/67 99 07/11/16 20:30 97.4 76 16 131/72 96 07/11/16 20:00 Room Air 07/11/16 20:00 Room Air 07/11/16 16:00 97.5 80 20 130/70 92 I/O 07/11/16 07/11/16 07/11/16 07/12/16 07/12/16 07/12/16 06:59 14:59 22:59 06:59 14:59 22:59 Intake Total 100 ml 1440 ml 650 ml Output Total 2255 ml 2150 ml 800 ml Balance -2255 ml 100 ml -710 ml -150 ml Intake Oral 1440 ml 650 ml IV Total 100 ml Output Urine Total 2255 ml 2150 ml 800 ml # Bowel Movements 0 1 Result Diagram: 07/10/16 1215 07/10/16 1215 Objective Remarks GENERAL: patient lying in bed. Awake. Appears comfortable. Alert and oriented x3. SKIN: Warm and dry. 07/08 stage III ulcer overlying left trochanter, as well as stage III ulcer overlying sacrum,as well as under perineum, all of which appear to Be healing well. No surrounding erythema. No exudate. HEAD: Normocephalic. EYES: No scleral icterus. No injection or drainage. NECK: Supple, trachea midline. No JVD. CARDIOVASCULAR: Regular rate and rhythm without murmurs, gallops, or rubs. RESPIRATORY: Breath sounds equal bilaterally. No accessory muscle use. GASTROINTESTINAL: Abdomen soft, non-tender, nondistended. Colostomy has just been changed., However by report there is good output. MUSCULOSKELETAL: No cyanosis, or edema. BACK: Nontender without obvious deformity. No CVA tenderness. A/P Assessment and Plan 35-year-old male with PMH of Anxiety, Paraplegia, Neurogenic Bladder s/p Suprapubic Cath, Chronic UTI and Chronic Sacral Decubitus Ulcer who presented for evaluation of sacral wound //Stage IV Chronic Sacral Decubitus Ulcer, Present at time of admission. Recent admit 05/02-05/10 for same, s/p eval by ID and IV Abx, arrangements made for Home Health at time of d/c however pt reports difficulty obtaining care, currently homeless. Patient referred to ED by PCP for assistance with chronic wound management. Afebrile, no leukocytosis. Previous hospitalist discussed with ID and building maintenance technician, wounds appear to be healing from previous with no signs of acute infection. Wound culture grew MRSA, likely colonized from superficial swab. No further antibiotics for sacral wounds per ID. Wound care nurse consulted, appreciate recommendations, orders for dressing changes placed. On oral Dilaudid at home for pain control, continue oral Dilaudid 2-4 mg as needed. 0.5 mg IV Dilaudid prn with wound changes as needed for pain. Continue recommendations per plastic surgery. -Add Toradol 30 mg IV every 6 per for breakthrough pain 06/22/16. Sacral wounds healing well. - Discontinue as needed IV Dilaudid for dressing changes. Add 2 mg by mouth Dilaudid for dressing changes. -07/06. Increased as needed Dilaudid prior to dressing changes to 4 mg every 8 hours -07/07. Increase as needed Dilaudid prior dressing changes to 6 mg. -07/08. Pain improved without having received any medication prior to dressing changes yet. Continue monitor. . Pain controlled. -= Pain continues controlled. Continue monitor. //E Coli/Proteus UTI: UA with evidence of possible UTI. H/o chronic UTI due to neurogenic bladder w/ indwelling cath. Previous urine culture with Escherichia coli and Proteus. Suprapubic cath changed 06/09. ID consulted, appreciated recommendations. Urine culture with E.coli, continue Augmentin, finish 14 days of treatment (stop date 06/23). -07/06patient says his urine has become more cloudy.urinalysis and urine culture pending. -07/12. e.Coli sensitive to ceftriaxone. Suprapubic catheter exchanged 07/10. Continue ceftriaxone. Stop date 07/19 //constipation. 07/09. Abdominal distention, decreased ostomy output. Abdominal film with increased stool. Cathartics ordered. -07/10start daily senna to prevent constipation on narcotics. -07/12. Continues with good stool output. Continue daily senna-docusate. //Neurogenic Bladder: Secondary to Paraplegia. Suprapubic Cath exchanged on . -X catheter exchanged be on 08/10. He can do this himself if he is outside hospital. Otherwise Dr. Wang service can do it. //Paraplegia: At baseline. Continue home medications. Trapeze setup. PT eval , recommends SNF, case management assisting. //DVT Prophylaxis: SCD/Teds/lovenox. Discharge Planning Discharge Planning Patient does not have a place to stay, he also needs regular wound care management, wound is healing well now, needs rehabilitation for long-term placement and wound care.appreciate case management assistance. Lyndon Wilkes MD Jul 12, 2016 14:40
[2016-07-12] MEDS: ALPRAZolam 1 MG TAB PO PRN (22:23)
[2016-07-13] MEDS: CARISOPRODOL 350 MG TAB PO PRN (00:45)
[2016-07-13] MEDS: HYDROmorphone HCL 4 MG TAB PO PRN ×2 (02:25→10:59)
[2016-07-13] MEDS: HYDROmorphone HCL 2 MG TAB PO PRN ×3 (04:57→21:06)
[2016-07-13 05:15] VITALS: BP 104/57; PULSE 71; RESP 16; TEMP 97.4; O2SAT 96
[2016-07-13 08:00] VITALS: BP 104/61; PULSE 73; RESP 18; TEMP 97.2; O2SAT 98
[2016-07-13] MEDS: cefTRIAXone INJ 1,000 MG in SODIUM CHLORIDE 0.9% INJ 100 ML IV SCH (10:54)
[2016-07-13] MEDS: FERROUS SULFATE 325 MG (65 MG ELEMENTAL IRON) TAB PO SCH ×2 (10:56→18:08)
[2016-07-13] MEDS: ENOXAPARIN SODIUM 40 MG/0.4 ML SYRINGE SQ SCH (10:56)
[2016-07-13] MEDS: GABAPENTIN 400 MG CAP PO SCH ×3 (10:56→18:08)
[2016-07-13] MEDS: SODIUM CHLORIDE 0.9% FLUSH 5 ML FLUSH FLUSH SCH ×2 (10:56→21:01)
[2016-07-13] MEDS: PANTOPRAZOLE SOD 40 MG DELAYED RELEASE TAB PO SCH (10:56)
[2016-07-13] MEDS: DOCUSATE SODIUM 50 MG/SENNA 8.6 MG TAB PO SCH (10:56)
[2016-07-13] MEDS: SODIUM HYPOCHLORITE 0.125% 500 ML BTL TOPICAL SCH ×2 (10:57→21:00)
[2016-07-13 12:00] VITALS: BP 103/60; PULSE 74; RESP 16; TEMP 98.3; O2SAT 96
[2016-07-13 16:00] VITALS: BP 102/55; PULSE 74; RESP 18; TEMP 97.2; O2SAT 95
[2016-07-13] MEDS: ALPRAZolam 1 MG TAB PO PRN ×2 (18:11→22:26)
[2016-07-13 20:00] VITALS: BP 124/56; PULSE 84; RESP 20; TEMP 98.1; O2SAT 94
--- NOTE | 2016-07-13 23:51 | HHI.PR ---
Subjective Remarks patient seen today around noon. Says he feels well. Denies any chest pain or shortness of breath. Reports pain is controlled. Good ostomy output. Objective Vital Signs Date Time Temp Pulse Resp B/P Pulse Ox O2 Delivery O2 Flow Rate FiO2 07/13/16 20:00 Room Air 07/13/16 20:00 98.1 84 20 124/56 94 07/13/16 16:00 97.2 74 18 102/55 95 07/13/16 12:00 98.3 74 16 103/60 96 07/13/16 10:15 Room Air 07/13/16 08:00 97.2 73 18 104/61 98 07/13/16 05:15 97.4 71 16 104/57 96 07/13/16 00:00 Room Air I/O 07/12/16 07/12/16 07/12/16 07/13/16 07/13/16 07/13/16 07:00 15:00 23:00 07:00 15:00 23:00 Intake Total 650 ml 720 ml 480 ml 480 ml 480 ml 480 ml Output Total 800 ml 1900 ml 450 ml 1100 ml Balance -150 ml -1180 ml 30 ml -620 ml 480 ml 480 ml Intake Oral 650 ml 720 ml 480 ml 480 ml 480 ml 480 ml Output Urine Total 800 ml 1900 ml 450 ml 1100 ml # Bowel Movements 1 1 0 0 1 Result Diagram: 07/10/16 1215 07/10/16 1215 Objective Remarks GENERAL: patient lying in bed. Awake. Appears comfortable. Alert and oriented x3. SKIN: Warm and dry. 07/08 stage III ulcer overlying left trochanter, as well as stage III ulcer overlying sacrum,as well as under perineum, all of which appear to Be healing well. No surrounding erythema. No exudate. HEAD: Normocephalic. EYES: No scleral icterus. No injection or drainage. NECK: Supple, trachea midline. No JVD. CARDIOVASCULAR: Regular rate and rhythm without murmurs, gallops, or rubs. RESPIRATORY: Breath sounds equal bilaterally. No accessory muscle use. GASTROINTESTINAL: Abdomen soft, non-tender, nondistended. brown stool in colostomy bag. MUSCULOSKELETAL: No cyanosis, or edema. BACK: Nontender without obvious deformity. No CVA tenderness. A/P Assessment and Plan 35-year-old male with PMH of Anxiety, Paraplegia, Neurogenic Bladder s/p Suprapubic Cath, Chronic UTI and Chronic Sacral Decubitus Ulcer who presented for evaluation of sacral wound //Stage IV Chronic Sacral Decubitus Ulcer, Present at time of admission. Recent admit 05/02-05/10 for same, s/p eval by ID and IV Abx, arrangements made for Home Health at time of d/c however pt reports difficulty obtaining care, currently homeless. Patient referred to ED by PCP for assistance with chronic wound management. Afebrile, no leukocytosis. Previous hospitalist discussed with ID and signing agent, wounds appear to be healing from previous with no signs of acute infection. Wound culture grew MRSA, likely colonized from superficial swab. No further antibiotics for sacral wounds per ID. Wound care nurse consulted, appreciate recommendations, orders for dressing changes placed. On oral Dilaudid at home for pain control, continue oral Dilaudid 2-4 mg as needed. 0.5 mg IV Dilaudid prn with wound changes as needed for pain. Continue recommendations per plastic surgery. -Add Toradol 30 mg IV every 6 per for breakthrough pain 06/22/16. Sacral wounds healing well. - Discontinue as needed IV Dilaudid for dressing changes. Add 2 mg by mouth Dilaudid for dressing changes. -07/06. Increased as needed Dilaudid prior to dressing changes to 4 mg every 8 hours -07/07. Increase as needed Dilaudid prior dressing changes to 6 mg. -07/08. Pain improved without having received any medication prior to dressing changes yet. Continue monitor. . Pain controlled. -= Pain continues controlled. Continue monitor. //E Coli/Proteus UTI: UA with evidence of possible UTI. H/o chronic UTI due to neurogenic bladder w/ indwelling cath. Previous urine culture with Escherichia coli and Proteus. Suprapubic cath changed 06/09. ID consulted, appreciated recommendations. Urine culture with E.coli, continue Augmentin, finish 14 days of treatment (stop date 06/23). -07/06patient says his urine has become more cloudy.urinalysis and urine culture pending. = e.Coli sensitive to ceftriaxone. Suprapubic catheter exchanged 07/10. Continue ceftriaxone. Stop date 07/19 //constipation. 07/09. Abdominal distention, decreased ostomy output. Abdominal film with increased stool. Cathartics ordered. -07/10start daily senna to prevent constipation on narcotics. = Continues with good stool output. Continue daily senna-docusate. //Neurogenic Bladder: Secondary to Paraplegia. Suprapubic Cath exchanged on . -X catheter exchanged be on 08/10. He can do this himself if he is outside hospital. Otherwise Dr. Wang service can do it. //Paraplegia: At baseline. Continue home medications. Trapeze setup. PT eval , recommends SNF, case management assisting. //DVT Prophylaxis: SCD/Teds/lovenox. Discharge Planning Discharge Planning Patient does not have a place to stay, he also needs regular wound care management, wound is healing well now, needs rehabilitation for long-term placement and wound care.appreciate case management assistance. Lyndon Wilkes MD Jul 13, 2016 23:50
[2016-07-14] VITALS: BP 107/51; PULSE 78; RESP 20; TEMP 97.8; O2SAT 95
[2016-07-14] MEDS: HYDROmorphone HCL 2 MG TAB PO PRN ×4 (03:45→21:35)
[2016-07-14 04:00] VITALS: BP 127/40; PULSE 90; RESP 20; TEMP 97.9; O2SAT 97
[2016-07-14 08:14] VITALS: BP 96/55; PULSE 80; RESP 18; TEMP 97.5; O2SAT 98
[2016-07-14] MEDS: GABAPENTIN 400 MG CAP PO SCH ×3 (08:14→17:12)
[2016-07-14] MEDS: FERROUS SULFATE 325 MG (65 MG ELEMENTAL IRON) TAB PO SCH ×2 (08:14→17:12)
[2016-07-14] MEDS: PANTOPRAZOLE SOD 40 MG DELAYED RELEASE TAB PO SCH (08:14)
[2016-07-14] MEDS: SODIUM CHLORIDE 0.9% FLUSH 5 ML FLUSH FLUSH SCH ×2 (08:15→23:37)
[2016-07-14] MEDS: DOCUSATE SODIUM 50 MG/SENNA 8.6 MG TAB PO SCH (08:15)
[2016-07-14] MEDS: SODIUM HYPOCHLORITE 0.125% 500 ML BTL TOPICAL SCH ×2 (08:16→21:00)
[2016-07-14] MEDS: HYDROmorphone HCL 4 MG TAB PO PRN (08:24)
[2016-07-14] MEDS: cefTRIAXone INJ 1,000 MG in SODIUM CHLORIDE 0.9% INJ 100 ML IV SCH (09:57)
[2016-07-14] MEDS: ENOXAPARIN SODIUM 40 MG/0.4 ML SYRINGE SQ SCH (09:58)
[2016-07-14 10:53] VITALS: BP 118/56; PULSE 81; RESP 20; TEMP 97.6; O2SAT 95
[2016-07-14 16:25] VITALS: BP 111/64; PULSE 82; RESP 18; TEMP 97.5; O2SAT 95
--- NOTE | 2016-07-14 19:42 | HHI.PR ---
Subjective Remarks patient seen today around 11 AM. Seen during dressing change. Says he is feeling well. Denies any chest pain, shortness of breath. Reports pain is controlled. Discussed with nursing. No acute changes. Objective Vital Signs Date Time Temp Pulse Resp B/P Pulse Ox O2 Delivery O2 Flow Rate FiO2 07/14/16 16:25 97.5 82 18 111/64 95 07/14/16 10:53 97.6 81 20 118/56 95 07/14/16 10:47 Room Air 07/14/16 08:14 97.5 80 18 96/55 98 07/14/16 04:00 97.9 90 20 127/40 97 07/14/16 00:00 97.8 78 20 107/51 95 07/13/16 20:00 Room Air 07/13/16 20:00 98.1 84 20 124/56 94 I/O 07/13/16 07/13/16 07/13/16 07/14/16 07/14/16 07/14/16 06:59 14:59 22:59 06:59 14:59 22:59 Intake Total 480 ml 480 ml 480 ml 480 ml 480 ml Output Total 1100 ml 1000 ml 500 ml Balance -620 ml 480 ml 480 ml -520 ml -20 ml Intake Oral 480 ml 480 ml 480 ml 480 ml 480 ml Output Urine Total 1100 ml 1000 ml 500 ml # Bowel Movements 0 1 0 Result Diagram: 07/10/16 1215 07/10/16 1215 Objective Remarks GENERAL: patient lying in bed. Awake. Appears comfortable. Alert and oriented x3. SKIN: Warm and dry. 07/14 stage III ulcer overlying left trochanterappears to be healing very well, as well as stage III ulcer overlying sacrum,as well as under perineum, all of which appear to Be healing well. No surrounding erythema. No exudate. HEAD: Normocephalic. EYES: No scleral icterus. No injection or drainage. NECK: Supple, trachea midline. No JVD. CARDIOVASCULAR: Regular rate and rhythm without murmurs, gallops, or rubs. RESPIRATORY: Breath sounds equal bilaterally. No accessory muscle use. GASTROINTESTINAL: Abdomen soft, non-tender, nondistended. brown stool in colostomy bag. MUSCULOSKELETAL: No cyanosis, or edema. BACK: Nontender without obvious deformity. No CVA tenderness. A/P Assessment and Plan 35-year-old male with PMH of Anxiety, Paraplegia, Neurogenic Bladder s/p Suprapubic Cath, Chronic UTI and Chronic Sacral Decubitus Ulcer who presented for evaluation of sacral wound //Stage IV Chronic Sacral Decubitus Ulcer, Present at time of admission. Recent admit 05/02-05/10 for same, s/p eval by ID and IV Abx, arrangements made for Home Health at time of d/c however pt reports difficulty obtaining care, currently homeless. Patient referred to ED by PCP for assistance with chronic wound management. Afebrile, no leukocytosis. Previous hospitalist discussed with ID and precision crop manager, wounds appear to be healing from previous with no signs of acute infection. Wound culture grew MRSA, likely colonized from superficial swab. No further antibiotics for sacral wounds per ID. Wound care nurse consulted, appreciate recommendations, orders for dressing changes placed. On oral Dilaudid at home for pain control, continue oral Dilaudid 2-4 mg as needed. 0.5 mg IV Dilaudid prn with wound changes as needed for pain. Continue recommendations per plastic surgery. -Add Toradol 30 mg IV every 6 per for breakthrough pain 06/22/16. Sacral wounds healing well. - Discontinue as needed IV Dilaudid for dressing changes. Add 2 mg by mouth Dilaudid for dressing changes. -07/06. Increased as needed Dilaudid prior to dressing changes to 4 mg every 8 hours -07/07. Increase as needed Dilaudid prior dressing changes to 6 mg. -07/08. Pain improved without having received any medication prior to dressing changes yet. Continue monitor. . Pain controlled. -= Pain continues controlled. Continue monitor. //E Coli/Proteus UTI: UA with evidence of possible UTI. H/o chronic UTI due to neurogenic bladder w/ indwelling cath. Previous urine culture with Escherichia coli and Proteus. Suprapubic cath changed 06/09. ID consulted, appreciated recommendations. Urine culture with E.coli, continue Augmentin, finish 14 days of treatment (stop date 06/23). -07/06patient says his urine has become more cloudy.urinalysis and urine culture pending. = e.Coli sensitive to ceftriaxone. Suprapubic catheter exchanged 07/10. Continue ceftriaxone. Stop date 07/19 //constipation. 07/09. Abdominal distention, decreased ostomy output. Abdominal film with increased stool. Cathartics ordered. -07/10start daily senna to prevent constipation on narcotics. = Continues with good stool output. Continue daily senna-docusate. //Neurogenic Bladder: Secondary to Paraplegia. Suprapubic Cath exchanged on . -suprapubic catheter needs to be exchanged be on 08/10. He can do this himself if he is outside hospital. Otherwise Dr. Wang service can do it. //Paraplegia: At baseline. Continue home medications. Trapeze setup. PT eval , recommends SNF, case management assisting. //DVT Prophylaxis: SCD/Teds/lovenox. Discharge Planning Discharge Planning Patient does not have a place to stay, he also needs regular wound care management, wound is healing well now, needs rehabilitation for long-term placement and wound care.appreciate case management assistance. Lyndon Wilkes MD Jul 14, 2016 19:42
[2016-07-14 20:00] VITALS: BP 122/57; PULSE 83; RESP 20; TEMP 98.2; O2SAT 95
[2016-07-14] MEDS: ALPRAZolam 1 MG TAB PO PRN (23:36)
[2016-07-15] MEDS: HYDROmorphone HCL 4 MG TAB PO PRN ×2 (01:36→06:04)
[2016-07-15 02:01] VITALS: BP 127/65; PULSE 80; RESP 20; TEMP 98.1; O2SAT 96
[2016-07-15] MEDS: FERROUS SULFATE 325 MG (65 MG ELEMENTAL IRON) TAB PO SCH ×2 (07:53→17:25)
[2016-07-15] MEDS: GABAPENTIN 400 MG CAP PO SCH ×3 (07:53→17:25)
[2016-07-15] MEDS: PANTOPRAZOLE SOD 40 MG DELAYED RELEASE TAB PO SCH (07:53)
[2016-07-15] MEDS: DOCUSATE SODIUM 50 MG/SENNA 8.6 MG TAB PO SCH (07:53)
[2016-07-15] MEDS: SODIUM CHLORIDE 0.9% FLUSH 5 ML FLUSH FLUSH SCH ×2 (07:54→20:43)
[2016-07-15] MEDS: SODIUM HYPOCHLORITE 0.125% 500 ML BTL TOPICAL SCH ×2 (07:55→20:44)
[2016-07-15 08:01] VITALS: BP 112/59; PULSE 67; RESP 18; TEMP 97.4; O2SAT 97
[2016-07-15] MEDS: ENOXAPARIN SODIUM 40 MG/0.4 ML SYRINGE SQ SCH (09:38)
[2016-07-15] MEDS: cefTRIAXone INJ 1,000 MG in SODIUM CHLORIDE 0.9% INJ 100 ML IV SCH (09:38)
[2016-07-15] MEDS: HYDROmorphone HCL 2 MG TAB PO PRN ×3 (10:21→20:46)
[2016-07-15 12:02] VITALS: BP 119/56; PULSE 77; RESP 18; TEMP 97.6; O2SAT 96
--- NOTE | 2016-07-15 14:32 | HHI.PR ---
Subjective Remarks denies cp/sob no diarrhea/constipation stable vital signs denies abdominal pain denies cough Objective Vitals Vital Signs Date Time Temp Pulse Resp B/P Pulse Ox O2 Delivery O2 Flow Rate FiO2 07/15/16 12:02 97.6 77 18 119/56 96 07/15/16 08:01 97.4 67 18 112/59 97 07/15/16 08:00 Room Air 07/15/16 02:01 98.1 80 20 127/65 96 07/15/16 02:01 Room Air 07/14/16 20:00 98.2 83 20 122/57 95 07/14/16 20:00 Room Air 07/14/16 16:25 97.5 82 18 111/64 95 I/O 07/14/16 07/14/16 07/14/16 07/15/16 07/15/16 07/15/16 07:00 15:00 23:00 07:00 15:00 23:00 Intake Total 480 ml 480 ml 480 ml Output Total 1000 ml 500 ml 450 ml Balance -520 ml -20 ml 30 ml Intake Oral 480 ml 480 ml 480 ml Output Urine Total 1000 ml 500 ml 450 ml # Bowel Movements 0 Imaging Last Impressions Abdomen X-Ray 07/09/16 1518 Signed Impressions: Service Date/Time: Saturday, July 09, 2016 17:06 - CONCLUSION: 1. Moderate amount of stool. 2. No dilated loops of bowel or pneumoperitoneum. 3. Bilateral hip dysplasia. Wes Callejas Jr., MD Chest X-Ray 06/08/16 1341 Signed Impressions: Service Date/Time: May 14:46 - CONCLUSION: No acute cardiopulmonary abnormality is identified. Luis Felipe Guerra MD Abdomen/Pelvis CT 06/08/16 1341 Signed Impressions: Service Date/Time: May 18:40 - CONCLUSION: 1. The balloon portion of the suprapubic catheter is inside the prosthetic urethra. 2. Probable hepatic hemangioma. Ryanne Maya MD Objective Remarks GENERAL: patient lying in bed. Awake. Appears comfortable. Alert and oriented x3. SKIN: Warm and dry. 07/14 stage III ulcer overlying left trochanterappears to be healing very well, as well as stage III ulcer overlying sacrum,as well as under perineum, all of which appear to Be healing well. No surrounding erythema. No exudate. HEAD: Normocephalic. EYES: No scleral icterus. No injection or drainage. NECK: Supple, trachea midline. No JVD. CARDIOVASCULAR: Regular rate and rhythm without murmurs, gallops, or rubs. RESPIRATORY: Breath sounds equal bilaterally. No accessory muscle use. GASTROINTESTINAL: Abdomen soft, non-tender, nondistended. brown stool in colostomy bag. MUSCULOSKELETAL: No cyanosis, or edema. BACK: Nontender without obvious deformity. No CVA tenderness. Procedures none Medications and IVs Current Medications Medications (Trade) Dose Ordered Sig/Haja Route Start Time Stop Time Status Last Admin (NS Flush) 2 ml UNSCH PRN FLUSH 06/08/16 20:00 06/28/16 11:40 (NS Flush) 2 ml BID FLUSH 06/08/16 21:00 07/15/16 07:54 (Zofran Inj) 4 mg Q6H PRN IVP 06/08/16 20:00 07/09/16 11:04 (Dulcolax Supp) 10 mg DAILY PRN MN 06/08/16 20:00 (Tylenol) 650 mg Q6H PRN PO 06/08/16 20:00 (Xanax) 1 mg Q6H PRN PO 06/08/16 20:00 07/14/16 23:36 (Soma) 350 mg TID PRN PO 06/08/16 20:00 07/13/16 00:45 (Ferrous Sulfate) 325 mg BIDPC PO 06/09/16 09:00 07/15/16 07:53 (Neurontin) 800 mg TID PO 06/09/16 09:00 07/15/16 12:11 (Dilaudid) 2 mg Q6H PRN PO 06/08/16 20:00 07/14/16 16:00 (ZyPREXA) 15 mg HS PO 06/08/16 21:00 07/14/16 23:36 (Dilaudid) 4 mg Q4H PRN PO 06/09/16 08:30 07/15/16 06:04 (Protonix) 40 mg DAILY PO 06/09/16 09:00 07/15/16 07:53 (Benadryl) 25 mg Q4H PRN PO 06/23/16 16:00 07/12/16 10:20 (Lovenox Inj) 40 mg Q24H SQ 06/24/16 09:15 07/15/16 09:38 (Dakin'S 0.125% Soln) SOAK GAUZE AND USE TO PACK ... BID TOPICAL 07/01/16 23:00 07/15/16 07:55 Hydromorphone HCl 6 mg 6 mg Q8H PRN PO 07/08/16 02:00 07/15/16 10:21 (Rocephin Inj/NS Inj) 100 ml @ 200 mls/hr Q24H IV 07/09/16 10:00 07/15/16 09:38 (Whitney-Colace) 1 tab DAILY PO 07/11/16 09:00 07/15/16 07:53 A/P Problem List: (1) Sacral decubitus ulcer ICD Code: L89.159 Status: Chronic Plan: Present at time of admission. Patient had been recently admitted from through 05/10 for same complaint, status post evaluation by infectious disease and status post IV antibiotic therapy, arrange paints made for home health at the time of discharge, however patient reports difficulty obtaining care. The patient is currently homeless. The patient was referred by PCP the emergency department for a cystoscopy with chronic wound management. The patient did not have any signs of infection. Previous hospitalist discussed with ID and wedding designer and likely colonized from superficial swab. No further antibiotics as per ID. Wound care nurse consulted. Continue pain control with Tylenol and oral Dilaudid. (2) Urinary tract infection due to Proteus ICD Code: N39.0 Status: Resolved Plan: Analysis with evidence of possible UTI. Patient has history of chronic UTI due to neurogenic bladder with indwelling catheter. Urine culture grew Escherichia coli initially been treated with Augmentin which was finished on 06/23. Patient had a significant UTI which culture grew Escherichia coli sensitive to ceftriaxone. Super pubic catheter exchange 07/10. Stop date 07/19. (3) Constipation ICD Code: K59.00 Status: Resolved Plan: Continue senna Colace. (4) Paraplegia ICD Code: G82.20 Status: Chronic Plan: At baseline. Continue home medications. Trapeze set up. PT eyal, recommends SNF, case management to assist. (5) Neurogenic bladder ICD Code: N31.9 Status: Chronic Plan: Due to paraplegia. Suprapubic catheter exchanged on 07/10. Suprapubic catheter needs to be a change on 08/10. The patient can do this himself if he is outside the hospital. Otherwise Dr. franklin service can do it. Assessment and Plan DVT prophylaxis: SCDs, Lovenox subcutaneous Discharge Planning Patient does not have a place to stay, he also needs regular wound care management, wound is healing well now, needs rehabilitation for long-term placement and wound care. Appreciate case management efforts and assistance in placement. Problem Qualifiers (1) Sacral decubitus ulcer: Qualified Code: L89.154 - Decubitus ulcer of sacral region, stage 4 Mike Lyle MD Jul 15, 2016 14:32
[2016-07-15 16:27] VITALS: BP 112/58; PULSE 91; RESP 17; TEMP 97.7; O2SAT 95
[2016-07-15 20:00] VITALS: BP 125/69; PULSE 77; RESP 16; TEMP 97.6; O2SAT 98
[2016-07-15] MEDS: ALPRAZolam 1 MG TAB PO PRN (22:44)
[2016-07-16 00:09] VITALS: BP 121/67; PULSE 70; RESP 16; TEMP 98; O2SAT 95
[2016-07-16 04:07] VITALS: BP 116/65; PULSE 73; RESP 16; TEMP 97.4; O2SAT 96
[2016-07-16] MEDS: HYDROmorphone HCL 4 MG TAB PO PRN ×2 (05:31→22:22)
[2016-07-16 08:00] VITALS: BP 128/60; PULSE 66; RESP 12; TEMP 97.7; O2SAT 97
[2016-07-16] MEDS: PANTOPRAZOLE SOD 40 MG DELAYED RELEASE TAB PO SCH (09:27)
[2016-07-16] MEDS: GABAPENTIN 400 MG CAP PO SCH ×3 (09:27→17:50)
[2016-07-16] MEDS: DOCUSATE SODIUM 50 MG/SENNA 8.6 MG TAB PO SCH (09:27)
[2016-07-16] MEDS: FERROUS SULFATE 325 MG (65 MG ELEMENTAL IRON) TAB PO SCH ×2 (09:27→17:50)
[2016-07-16] MEDS: cefTRIAXone INJ 1,000 MG in SODIUM CHLORIDE 0.9% INJ 100 ML IV SCH (09:27)
[2016-07-16] MEDS: SODIUM CHLORIDE 0.9% FLUSH 5 ML FLUSH FLUSH SCH ×2 (09:27→22:22)
[2016-07-16] MEDS: ENOXAPARIN SODIUM 40 MG/0.4 ML SYRINGE SQ SCH (09:28)
[2016-07-16] MEDS: SODIUM HYPOCHLORITE 0.125% 500 ML BTL TOPICAL SCH ×2 (09:28→21:00)
[2016-07-16 12:00] VITALS: BP 130/60; PULSE 85; RESP 12; TEMP 97.4; O2SAT 95
--- NOTE | 2016-07-16 14:26 | HHI.PR ---
Subjective Remarks Follow up for UTI, Sacral decubitus ulcer. Mr. Byrd is doing well. Denies any chest pain, SOB, fever, chills. Objective Vitals Vital Signs Date Time Temp Pulse Resp B/P Pulse Ox O2 Delivery O2 Flow Rate FiO2 07/16/16 12:00 97.4 85 12 130/60 95 07/16/16 11:42 97 Room Air 07/16/16 08:00 97.7 66 12 128/60 97 07/16/16 04:07 97.4 73 16 116/65 96 07/16/16 00:09 98.0 70 16 121/67 95 07/15/16 20:00 97.6 77 16 125/69 98 07/15/16 20:00 Room Air 07/15/16 16:27 97.7 91 17 112/58 95 I/O 07/15/16 07/15/16 07/15/16 07/16/16 07/16/16 07/16/16 06:59 14:59 22:59 06:59 14:59 22:59 Intake Total 840 ml 480 ml 240 ml Output Total 1000 ml 950 ml 1775 ml Balance -160 ml -470 ml -1535 ml Intake Oral 840 ml 480 ml 240 ml Output Urine Total 1000 ml 950 ml 1775 ml Imaging Last Impressions Abdomen X-Ray 07/09/16 1518 Signed Impressions: Service Date/Time: Saturday, July 09, 2016 17:06 - CONCLUSION: 1. Moderate amount of stool. 2. No dilated loops of bowel or pneumoperitoneum. 3. Bilateral hip dysplasia. Wes Callejas Jr., MD Chest X-Ray 06/08/16 1341 Signed Impressions: Service Date/Time: May 14:46 - CONCLUSION: No acute cardiopulmonary abnormality is identified. Luis Felipe Guerra MD Abdomen/Pelvis CT 06/08/16 1341 Signed Impressions: Service Date/Time: May 18:40 - CONCLUSION: 1. The balloon portion of the suprapubic catheter is inside the prosthetic urethra. 2. Probable hepatic hemangioma. Ryanne Maya MD Objective Remarks GENERAL: Alert, NAD. SKIN: Warm and dry. HEAD: Normocephalic. EYES: No scleral icterus. No injection or drainage. NECK: Supple, trachea midline. No JVD or lymphadenopathy. CARDIOVASCULAR: Regular rate and rhythm without murmurs, gallops, or rubs. RESPIRATORY: Breath sounds equal bilaterally. No accessory muscle use. GASTROINTESTINAL: Abdomen soft, non-tender, nondistended. MUSCULOSKELETAL: No cyanosis, or edema. BACK: Nontender without obvious deformity. No CVA tenderness. Procedures none A/P Problem List: (1) Sacral decubitus ulcer ICD Code: L89.159 Status: Chronic (2) Urinary tract infection due to Proteus ICD Code: N39.0 Status: Resolved (3) Constipation ICD Code: K59.00 Status: Resolved (4) Paraplegia ICD Code: G82.20 Status: Chronic (5) Neurogenic bladder ICD Code: N31.9 Status: Chronic Assessment and Plan 35-year-old male with PMH of Anxiety, Paraplegia, Neurogenic Bladder s/p Suprapubic Cath, Chronic UTI and Chronic Sacral Decubitus Ulcer who presented for evaluation of sacral wound - Stage IV Chronic Sacral Decubitus Ulcer, Present at time of admission. Recent admit 05/02-05/10 for same, s/p eval by ID and IV Abx, arrangements made for Home Health at time of d/c however pt reports difficulty obtaining care, currently homeless. Patient referred to ED by PCP for assistance with chronic wound management. Afebrile, no leukocytosis. Previous hospitalist discussed with ID and wood craftsman, wounds appear to be healing from previous with no signs of acute infection. Wound culture grew MRSA, likely colonized from superficial swab. No further antibiotics for sacral wounds per ID. Wound care nurse consulted, appreciate recommendations, orders for dressing changes placed. On oral Dilaudid at home for pain control, continue oral Dilaudid 2-4 mg as needed. 0.5 mg IV Dilaudid prn with wound changes as needed for pain. Continue recommendations per plastic surgery. E Coli/Proteus UTI: UA with evidence of possible UTI. H/o chronic UTI due to neurogenic bladder w/ indwelling cath. Previous urine culture with Escherichia coli and Proteus. Suprapubic cath changed 06/09. ID consulted, appreciated recommendations. Urine culture with E.coli, continue Augmentin, finish 14 days of treatment (stop date 06/23). -07/06patient says his urine has become more cloudy.urinalysis and urine culture pending. = e.Coli sensitive to ceftriaxone. Suprapubic catheter exchanged 07/10. Continue ceftriaxone. Stop date 07/19 constipation. 07/09. Abdominal distention, decreased ostomy output. Abdominal film with increased stool. Cathartics ordered. -07/10start daily senna to prevent constipation on narcotics. = Continues with good stool output. Continue daily senna-docusate. Neurogenic Bladder: Secondary to Paraplegia. Suprapubic Cath exchanged on . -suprapubic catheter needs to be exchanged be on 08/10. He can do this himself if he is outside hospital. Otherwise patient may need to go to his urologist. Paraplegia: At baseline. Continue home medications. Trapeze setup. PT eval, recommends SNF, case management assisting. Full code. Lovenox. Protonix. Problem Qualifiers (1) Sacral decubitus ulcer: Qualified Code: L89.154 - Decubitus ulcer of sacral region, stage 4 Marley Montalvo DO Jul 16, 2016 14:26
[2016-07-16] MEDS: HYDROmorphone HCL 2 MG TAB PO PRN (14:58)
[2016-07-16 16:00] VITALS: BP 129/69; PULSE 93; RESP 16; TEMP 97.5; O2SAT 97
[2016-07-16 20:00] VITALS: BP 123/58; PULSE 86; RESP 18; TEMP 98.8; O2SAT 98
[2016-07-16] MEDS: CARISOPRODOL 350 MG TAB PO PRN (22:22)
[2016-07-17] VITALS: BP 111/53; PULSE 76; RESP 16; TEMP 97.9
[2016-07-17] MEDS: ALPRAZolam 1 MG TAB PO PRN ×2 (01:25→21:13)
[2016-07-17] MEDS: HYDROmorphone HCL 2 MG TAB PO PRN ×2 (01:26→21:13)
[2016-07-17 04:00] VITALS: BP 109/52; PULSE 80; RESP 16; TEMP 97.8; O2SAT 96
[2016-07-17 08:00] VITALS: BP 103/58; PULSE 71; RESP 12; TEMP 97.6; O2SAT 96
[2016-07-17] MEDS: FERROUS SULFATE 325 MG (65 MG ELEMENTAL IRON) TAB PO SCH ×2 (09:40→16:22)
[2016-07-17] MEDS: SODIUM CHLORIDE 0.9% FLUSH 5 ML FLUSH FLUSH SCH ×2 (09:40→21:14)
[2016-07-17] MEDS: DOCUSATE SODIUM 50 MG/SENNA 8.6 MG TAB PO SCH (09:41)
[2016-07-17] MEDS: GABAPENTIN 400 MG CAP PO SCH ×3 (09:41→16:22)
[2016-07-17] MEDS: PANTOPRAZOLE SOD 40 MG DELAYED RELEASE TAB PO SCH (09:41)
[2016-07-17] MEDS: ENOXAPARIN SODIUM 40 MG/0.4 ML SYRINGE SQ SCH (09:42)
[2016-07-17] MEDS: cefTRIAXone INJ 1,000 MG in SODIUM CHLORIDE 0.9% INJ 100 ML IV SCH (09:42)
[2016-07-17 12:00] VITALS: BP 114/57; PULSE 76; RESP 12; TEMP 97.4; O2SAT 98
[2016-07-17] MEDS: HYDROmorphone HCL 4 MG TAB PO PRN ×2 (13:27→17:37)
[2016-07-17] MEDS: SODIUM HYPOCHLORITE 0.125% 500 ML BTL TOPICAL SCH ×2 (13:29→21:14)
--- NOTE | 2016-07-17 13:29 | HHI.PR ---
Subjective Remarks Follow up for UTI, Sacral decubitus ulcer. Mr. Byrd is doing well. Denies any chest pain, SOB, fever, chills. PT is working with patient. Objective Vitals Vital Signs Date Time Temp Pulse Resp B/P Pulse Ox O2 Delivery O2 Flow Rate FiO2 07/17/16 12:00 97.4 76 12 114/57 98 07/17/16 10:28 Room Air 07/17/16 08:00 97.6 71 12 103/58 96 07/17/16 04:00 97.8 80 16 109/52 96 07/17/16 00:00 97.9 76 16 111/53 07/16/16 20:15 Room Air 07/16/16 20:00 98.8 86 18 123/58 98 07/16/16 16:09 18 07/16/16 16:00 97.5 93 16 129/69 97 I/O 07/16/16 07/16/16 07/16/16 07/17/16 07/17/16 07/17/16 07:00 15:00 23:00 07:00 15:00 23:00 Intake Total 240 ml 700 ml 620 ml 480 ml Output Total 1775 ml 400 ml 2450 ml 800 ml Balance -1535 ml 300 ml -1830 ml -320 ml Intake Oral 240 ml 700 ml 620 ml 480 ml Output Urine Total 1775 ml 400 ml 2450 ml 800 ml # Bowel Movements 0 0 Imaging Last Impressions Abdomen X-Ray 07/09/16 1518 Signed Impressions: Service Date/Time: Saturday, July 09, 2016 17:06 - CONCLUSION: 1. Moderate amount of stool. 2. No dilated loops of bowel or pneumoperitoneum. 3. Bilateral hip dysplasia. Wes Callejas Jr., MD Chest X-Ray 06/08/16 1341 Signed Impressions: Service Date/Time: May 14:46 - CONCLUSION: No acute cardiopulmonary abnormality is identified. Luis Felipe Guerra MD Abdomen/Pelvis CT 06/08/16 1341 Signed Impressions: Service Date/Time: May 18:40 - CONCLUSION: 1. The balloon portion of the suprapubic catheter is inside the prosthetic urethra. 2. Probable hepatic hemangioma. Ryanne Maya MD Objective Remarks GENERAL: Alert, NAD. SKIN: Warm and dry. HEAD: Normocephalic. EYES: No scleral icterus. No injection or drainage. NECK: Supple, trachea midline. No JVD or lymphadenopathy. CARDIOVASCULAR: Regular rate and rhythm without murmurs, gallops, or rubs. RESPIRATORY: Breath sounds equal bilaterally. No accessory muscle use. GASTROINTESTINAL: Abdomen soft, non-tender, nondistended. MUSCULOSKELETAL: No cyanosis, or edema. BACK: Nontender without obvious deformity. No CVA tenderness. Procedures none A/P Problem List: (1) Sacral decubitus ulcer ICD Code: L89.159 Status: Chronic (2) Urinary tract infection due to Proteus ICD Code: N39.0 Status: Resolved (3) Constipation ICD Code: K59.00 Status: Resolved (4) Paraplegia ICD Code: G82.20 Status: Chronic (5) Neurogenic bladder ICD Code: N31.9 Status: Chronic Assessment and Plan Mr. Byrd is a 35-year-old male with PMH of Anxiety, Paraplegia, Neurogenic Bladder s/p Suprapubic Cath, Chronic UTI and Chronic Sacral Decubitus Ulcer who presented for evaluation of sacral wound. - Stage IV Chronic Sacral Decubitus Ulcer, Present at time of admission. - Recent admit 05/02-05/10 for same, s/p eval by ID and IV Abx, arrangements made for Home Health at time of d/c. - - Wound culture grew MRSA, likely colonized from superficial swab. No further antibiotics for sacral wounds per ID. - On oral Dilaudid at home for pain control, continue oral Dilaudid 2-6 mg as needed. - E. Coli Urinary tract infection - Hx of chronic UTI due to neurogenic bladder with indwelling cath. - Previous infection with E. Coli and Proteus - On 07/06/2016, patient reported that his urine has become more cloudy - Urine cx shows E.Coli sensitive to ceftriaxone. Suprapubic catheter exchanged 07/10. - Continue ceftriaxone. Stop date 07/19/2016. - Neurogenic Bladder: Secondary to Paraplegia. Suprapubic Cath exchanged on . - suprapubic catheter needs to be exchanged be on 08/10. - He can do this himself if he is outside hospital. Otherwise patient may need to go to his urologist. - Paraplegia: At baseline. Continue home medications. Trapeze setup. PT evaluated, recommends SNF, case management assisting. - Anxiety - continue Xanax 1mg Q6hrs. Full code. Lovenox. Protonix. Problem Qualifiers (1) Sacral decubitus ulcer: Qualified Code: L89.154 - Decubitus ulcer of sacral region, stage 4 Marley Montalvo Jul 17, 2016 13:29 Full code. Lovenox. Protonix. Problem Qualifiers (1) Sacral decubitus ulcer: Qualified Code: L89.154 - Decubitus ulcer of sacral region, stage 4 Marley Montalvo Jul 17, 2016 13:29
[2016-07-17 16:00] VITALS: BP 116/60; PULSE 83; RESP 12; TEMP 97.4; O2SAT 96
[2016-07-17 21:14] VITALS: BP 131/63; PULSE 81; RESP 21; TEMP 98.2; O2SAT 95
[2016-07-18 00:17] VITALS: BP 113/55; PULSE 78; RESP 20; TEMP 98; O2SAT 95
[2016-07-18] MEDS: CARISOPRODOL 350 MG TAB PO PRN (00:39)
[2016-07-18] MEDS: diphenhydrAMINE HCL 25 MG CAP PO PRN (00:39)
[2016-07-18] MEDS: HYDROmorphone HCL 4 MG TAB PO PRN ×4 (02:03→22:37)
[2016-07-18 04:27] VITALS: BP 125/56; PULSE 77; RESP 20; TEMP 98.1; O2SAT 96
[2016-07-18 08:00] VITALS: BP 105/58; PULSE 81; RESP 16; TEMP 97.9; O2SAT 95
[2016-07-18] MEDS: PANTOPRAZOLE SOD 40 MG DELAYED RELEASE TAB PO SCH (08:14)
[2016-07-18] MEDS: SODIUM CHLORIDE 0.9% FLUSH 5 ML FLUSH FLUSH SCH ×2 (08:14→21:00)
[2016-07-18] MEDS: DOCUSATE SODIUM 50 MG/SENNA 8.6 MG TAB PO SCH (08:14)
[2016-07-18] MEDS: FERROUS SULFATE 325 MG (65 MG ELEMENTAL IRON) TAB PO SCH ×2 (08:14→16:30)
[2016-07-18] MEDS: ENOXAPARIN SODIUM 40 MG/0.4 ML SYRINGE SQ SCH (08:14)
[2016-07-18] MEDS: GABAPENTIN 400 MG CAP PO SCH ×3 (08:14→16:30)
[2016-07-18] MEDS: SODIUM HYPOCHLORITE 0.125% 500 ML BTL TOPICAL SCH ×2 (08:15→22:38)
[2016-07-18] MEDS: cefTRIAXone INJ 1,000 MG in SODIUM CHLORIDE 0.9% INJ 100 ML IV SCH (08:15)
[2016-07-18 12:00] VITALS: BP 117/58; PULSE 83; RESP 16; TEMP 97.2; O2SAT 96
[2016-07-18 16:00] VITALS: BP 129/76; PULSE 80; RESP 20; TEMP 97.7; O2SAT 98
--- NOTE | 2016-07-18 16:18 | HHI.PR ---
Subjective Remarks Follow up for UTI, sacral decubitus ulcer. The patient is seen sitting in wheelchair at bedside. He has no medical complaints except chronic pain, worse with dressing changes of ulcer. Discussed possibly reducing narcotic pain medications however patient resistant at this time. Denies any fevers or chills. Eating well. Denies any constipation. Objective Vitals Vital Signs Date Time Temp Pulse Resp B/P Pulse Ox O2 Delivery O2 Flow Rate FiO2 07/18/16 15:06 18 07/18/16 12:00 97.2 83 16 117/58 96 07/18/16 08:00 97.9 81 16 105/58 95 07/18/16 07:24 Room Air 07/18/16 04:27 98.1 77 20 125/56 96 07/18/16 00:17 98.0 78 20 113/55 95 07/17/16 21:14 98.2 81 21 131/63 95 07/17/16 20:00 Room Air I/O 07/17/16 07/17/16 07/17/16 07/18/16 07/18/16 07/18/16 07:00 15:00 23:00 07:00 15:00 23:00 Intake Total 480 ml 344 ml 584 ml Output Total 800 ml 700 ml 400 ml 900 ml 400 ml Balance -320 ml -356 ml -400 ml -900 ml 184 ml Intake Oral 480 ml 240 ml 480 ml IV Total 104 ml 104 ml Output Urine Total 800 ml 700 ml 400 ml 900 ml 400 ml # Bowel Movements 0 1 Imaging Last Impressions Abdomen X-Ray 07/09/16 1518 Signed Impressions: Service Date/Time: Saturday, July 09, 2016 17:06 - CONCLUSION: 1. Moderate amount of stool. 2. No dilated loops of bowel or pneumoperitoneum. 3. Bilateral hip dysplasia. Wes Callejas Jr., MD Chest X-Ray 06/08/16 1341 Signed Impressions: Service Date/Time: May 14:46 - CONCLUSION: No acute cardiopulmonary abnormality is identified. Luis Felipe Guerra MD Abdomen/Pelvis CT 06/08/16 1341 Signed Impressions: Service Date/Time: May 18:40 - CONCLUSION: 1. The balloon portion of the suprapubic catheter is inside the prosthetic urethra. 2. Probable hepatic hemangioma. Ryanne Maya MD Objective Remarks GENERAL: Well-nourished, well-developed middle aged AA male patient in NAD. SKIN: Warm and dry. No rash. Sacral wound present, not examined. HEAD: Normocephalic. Atraumatic. NECK: Supple. Trachea midline. CARDIOVASCULAR: Regular rate and rhythm. S1, S2 noted. No murmur appreciated. RESPIRATORY: No accessory muscle use. Clear to auscultation. Breath sounds equal bilaterally. GASTROINTESTINAL: Abdomen soft, non-tender, nondistended. Normoactive bowel sounds x4. Ostomy and suprapubic catheter in place. NEUROLOGICAL: Awake and alert. Paraplegic. Moves upper extremities spontaneously. Normal speech. PSYCHIATRIC: Appropriate mood and affect; insight and judgment normal. Procedures none Medications and IVs Current Medications Medications (Trade) Dose Ordered Sig/Haja Route Start Time Stop Time Status Last Admin (NS Flush) 2 ml UNSCH PRN FLUSH 06/08/16 20:00 06/28/16 11:40 (NS Flush) 2 ml BID FLUSH 06/08/16 21:00 07/18/16 08:14 (Zofran Inj) 4 mg Q6H PRN IVP 06/08/16 20:00 07/09/16 11:04 (Dulcolax Supp) 10 mg DAILY PRN [place] 06/08/16 20:00 (Tylenol) 650 mg Q6H PRN PO 06/08/16 20:00 (Xanax) 1 mg Q6H PRN PO 06/08/16 20:00 07/17/16 21:13 (Soma) 350 mg TID PRN PO 06/08/16 20:00 07/18/16 00:39 (Ferrous Sulfate) 325 mg BIDPC PO 06/09/16 09:00 07/18/16 08:14 (Neurontin) 800 mg TID PO 06/09/16 09:00 07/18/16 11:45 (Dilaudid) 2 mg Q6H PRN PO 06/08/16 20:00 07/17/16 01:26 (ZyPREXA) 15 mg HS PO 06/08/16 21:00 07/17/16 21:13 (Dilaudid) 4 mg Q4H PRN PO 06/09/16 08:30 07/18/16 14:04 (Protonix) 40 mg DAILY PO 06/09/16 09:00 07/18/16 08:14 (Benadryl) 25 mg Q4H PRN PO 06/23/16 16:00 07/18/16 00:39 (Lovenox Inj) 40 mg Q24H SQ 06/24/16 09:15 07/18/16 08:14 (Dakin'S 0.125% Soln) SOAK GAUZE AND USE TO PACK ... BID TOPICAL 07/01/16 23:00 07/18/16 08:15 Hydromorphone HCl 6 mg 6 mg Q8H PRN PO 07/08/16 02:00 07/17/16 21:13 (Rocephin Inj/NS Inj) 100 ml @ 200 mls/hr Q24H IV 07/09/16 10:00 07/18/16 08:15 (Whitney-Colace) 1 tab DAILY PO 07/11/16 09:00 07/18/16 08:14 A/P Problem List: (1) Sacral decubitus ulcer ICD Code: L89.159 Status: Chronic (2) Urinary tract infection due to Proteus ICD Code: N39.0 Status: Resolved (3) Constipation ICD Code: K59.00 Status: Resolved (4) Paraplegia ICD Code: G82.20 Status: Chronic (5) Neurogenic bladder ICD Code: N31.9 Status: Chronic Assessment and Plan Mr. Byrd is a 35-year-old male with PMH of Anxiety, Paraplegia, Neurogenic Bladder s/p Suprapubic Cath, Chronic UTI and Chronic Sacral Decubitus Ulcer who presented for evaluation of sacral wound. - Stage IV Chronic Sacral Decubitus Ulcer, Present at time of admission. - Recent admit 05/02-05/10 for same, s/p eval by ID and IV Abx, arrangements made for Home Health at time of d/c. - - Wound culture grew MRSA, likely colonized from superficial swab. No further antibiotics for sacral wounds per ID. - On oral Dilaudid at home for pain control, continue oral Dilaudid 2-6 mg as needed. - E. Coli Urinary tract infection - Hx of chronic UTI due to neurogenic bladder with indwelling cath. - Previous infection with E. Coli and Proteus - On 07/06/2016, patient reported that his urine has become more cloudy - Urine cx shows E.Coli sensitive to ceftriaxone. Suprapubic catheter exchanged 07/10. - Continue ceftriaxone. Stop date tomorrow 07/19/2016. - Neurogenic Bladder: Secondary to Paraplegia. Suprapubic Cath exchanged on . - suprapubic catheter needs to be exchanged be on 08/10. - He can do this himself if he is outside hospital. Otherwise patient may need to go to his urologist. - Paraplegia: At baseline. Continue home medications. Trapeze setup. PT evaluated, recommends SNF, case management assisting. - Anxiety - continue Xanax 1mg Q6hrs. Full code. Lovenox. Protonix. Written by Abby Lima, acting as scribe for Dr. Montalvo on 07/18/16 at 15: 15. The documentation accurately reflects the work performed [id number] by me on 07/18/16 at 15:15. Discharge Planning Case management assisting with SNF placement. Problem Qualifiers (1) Sacral decubitus ulcer: Qualified Code: L89.154 - Decubitus ulcer of sacral region, stage 4 Abby Lima PA-C Jul 18, 2016 16:18 Marley Montalvo DO Jul 18, 2016 18:37
[2016-07-18 20:35] VITALS: BP 137/63; PULSE 94; RESP 18; TEMP 98; O2SAT 96
[2016-07-19 00:35] VITALS: BP 148/83; PULSE 99; RESP 16; TEMP 98.1; O2SAT 96
[2016-07-19] MEDS: ALPRAZolam 1 MG TAB PO PRN ×2 (01:31→23:28)
[2016-07-19] MEDS: HYDROmorphone HCL 2 MG TAB PO PRN ×2 (03:32→15:38)
[2016-07-19 04:33] VITALS: BP 142/78; PULSE 82; RESP 16; TEMP 98.2; O2SAT 98
[2016-07-19 08:00] VITALS: BP 121/62; PULSE 89; RESP 18; TEMP 97.6; O2SAT 96
[2016-07-19] MEDS: FERROUS SULFATE 325 MG (65 MG ELEMENTAL IRON) TAB PO SCH ×2 (09:22→17:53)
[2016-07-19] MEDS: GABAPENTIN 400 MG CAP PO SCH ×3 (09:22→17:54)
[2016-07-19] MEDS: DOCUSATE SODIUM 50 MG/SENNA 8.6 MG TAB PO SCH (09:22)
[2016-07-19] MEDS: ENOXAPARIN SODIUM 40 MG/0.4 ML SYRINGE SQ SCH (09:22)
[2016-07-19] MEDS: PANTOPRAZOLE SOD 40 MG DELAYED RELEASE TAB PO SCH (09:22)
[2016-07-19] MEDS: SODIUM CHLORIDE 0.9% FLUSH 5 ML FLUSH FLUSH SCH ×2 (09:23→21:54)
[2016-07-19] MEDS: cefTRIAXone INJ 1,000 MG in SODIUM CHLORIDE 0.9% INJ 100 ML IV SCH (09:23)
[2016-07-19] MEDS: HYDROmorphone HCL 4 MG TAB PO PRN ×2 (11:09→21:54)
[2016-07-19 12:00] VITALS: BP 131/65; PULSE 82; RESP 18; TEMP 97.4; O2SAT 99
--- NOTE | 2016-07-19 13:55 | HHI.PR ---
Subjective Remarks Follow up for UTI, sacral decubitus ulcer. Mr. Byrd is currently doing well. Denies any acute concerns. Denies any chest pain, shortness of breath, fever or chills. Objective Vitals Vital Signs Date Time Temp Pulse Resp B/P Pulse Ox O2 Delivery O2 Flow Rate FiO2 07/19/16 12:00 97.4 82 18 131/65 99 07/19/16 08:00 97.6 89 18 121/62 96 07/19/16 07:15 Room Air 07/19/16 04:33 98.2 82 16 142/78 98 07/19/16 00:35 98.1 99 16 148/83 96 07/18/16 22:00 Room Air 07/18/16 20:35 98.0 94 18 137/63 96 07/18/16 16:00 97.7 80 20 129/76 98 07/18/16 15:06 18 I/O 07/18/16 07/18/16 07/18/16 07/19/16 07/19/16 07/19/16 07:00 15:00 23:00 07:00 15:00 23:00 Intake Total 584 ml 860 ml 500 ml Output Total 900 ml 400 ml 900 ml 600 ml Balance -900 ml 184 ml -40 ml -100 ml Intake Oral 480 ml 860 ml 500 ml IV Total 104 ml Output Urine Total 900 ml 400 ml 900 ml 600 ml # Bowel Movements 0 2 Imaging Last Impressions Abdomen X-Ray 07/09/16 1518 Signed Impressions: Service Date/Time: Saturday, July 09, 2016 17:06 - CONCLUSION: 1. Moderate amount of stool. 2. No dilated loops of bowel or pneumoperitoneum. 3. Bilateral hip dysplasia. Wes Callejas Jr., MD Chest X-Ray 06/08/16 1341 Signed Impressions: Service Date/Time: May 14:46 - CONCLUSION: No acute cardiopulmonary abnormality is identified. Luis Felipe Guerra MD Abdomen/Pelvis CT 06/08/16 1341 Signed Impressions: Service Date/Time: May 18:40 - CONCLUSION: 1. The balloon portion of the suprapubic catheter is inside the prosthetic urethra. 2. Probable hepatic hemangioma. Ryanne Maya MD Objective Remarks GENERAL: Alert, NAD. SKIN: Warm and dry. HEAD: Normocephalic. EYES: No scleral icterus. No injection or drainage. NECK: Supple, trachea midline. No JVD or lymphadenopathy. CARDIOVASCULAR: Regular rate and rhythm without murmurs, gallops, or rubs. RESPIRATORY: Breath sounds equal bilaterally. No accessory muscle use. GASTROINTESTINAL: Abdomen soft, non-tender, nondistended. MUSCULOSKELETAL: No cyanosis, or edema. BACK: Nontender without obvious deformity. No CVA tenderness. Procedures none A/P Problem List: (1) Sacral decubitus ulcer ICD Code: L89.159 Status: Chronic (2) Urinary tract infection due to Proteus ICD Code: N39.0 Status: Resolved (3) Constipation ICD Code: K59.00 Status: Resolved (4) Paraplegia ICD Code: G82.20 Status: Chronic (5) Neurogenic bladder ICD Code: N31.9 Status: Chronic Assessment and Plan Mr. Byrd is a 35-year-old male with PMH of Anxiety, Paraplegia, Neurogenic Bladder s/p Suprapubic Cath, Chronic UTI and Chronic Sacral Decubitus Ulcer who presented for evaluation of sacral wound. - Stage IV Chronic Sacral Decubitus Ulcer, Present at time of admission. - Recent admit 05/02-05/10 for same, s/p eval by ID and IV Abx, arrangements made for Home Health at time of d/c. - - Wound culture grew MRSA, likely colonized from superficial swab. No further antibiotics for sacral wounds per ID. - On oral Dilaudid at home for pain control, continue oral Dilaudid 2-6 mg as needed. - E. Coli Urinary tract infection - Hx of chronic UTI due to neurogenic bladder with indwelling cath. - Previous infection with E. Coli and Proteus - On 07/06/2016, patient reported that his urine has become more cloudy - Urine cx shows E.Coli sensitive to ceftriaxone. Suprapubic catheter exchanged 07/10. - Received ceftriaxone. Stop date 07/19/2016. - Neurogenic Bladder: Secondary to Paraplegia. Suprapubic Cath exchanged on . - suprapubic catheter needs to be exchanged be on 08/10. - He can do this himself if he is outside hospital. Otherwise patient may need to go to his urologist. - Paraplegia: At baseline. Continue home medications. Trapeze setup. PT evaluated, recommends SNF, case management assisting. - Anxiety - continue Xanax 1mg Q6hrs. Full code. Lovenox. Protonix. Problem Qualifiers (1) Sacral decubitus ulcer: Qualified Code: L89.154 - Decubitus ulcer of sacral region, stage 4 Marley Montalvo DO Jul 19, 2016 1:55 pm
[2016-07-19 16:00] VITALS: BP 110/55; PULSE 89; RESP 18; TEMP 97.8; O2SAT 94
[2016-07-19] MEDS: SODIUM HYPOCHLORITE 0.125% 500 ML BTL TOPICAL SCH ×2 (16:10→21:55)
[2016-07-19 21:15] VITALS: BP 118/57; PULSE 84; RESP 16; TEMP 97.6; O2SAT 96
[2016-07-20 01:00] VITALS: BP 126/64; PULSE 82; RESP 16; TEMP 97.8; O2SAT 98
[2016-07-20] MEDS: HYDROmorphone HCL 2 MG TAB PO PRN ×2 (02:15→08:43)
[2016-07-20 05:00] VITALS: BP 118/60; PULSE 84; RESP 16; TEMP 97.6; O2SAT 97
[2016-07-20 08:02] VITALS: BP 108/52; PULSE 85; RESP 20; TEMP 98.4; O2SAT 96
[2016-07-20] MEDS: DOCUSATE SODIUM 50 MG/SENNA 8.6 MG TAB PO SCH (08:41)
[2016-07-20] MEDS: PANTOPRAZOLE SOD 40 MG DELAYED RELEASE TAB PO SCH (08:41)
[2016-07-20] MEDS: SODIUM CHLORIDE 0.9% FLUSH 5 ML FLUSH FLUSH SCH ×2 (08:41→21:38)
[2016-07-20] MEDS: GABAPENTIN 400 MG CAP PO SCH ×3 (08:41→17:00)
[2016-07-20] MEDS: ENOXAPARIN SODIUM 40 MG/0.4 ML SYRINGE SQ SCH (08:42)
[2016-07-20] MEDS: FERROUS SULFATE 325 MG (65 MG ELEMENTAL IRON) TAB PO SCH ×2 (08:42→17:00)
[2016-07-20] MEDS: SODIUM HYPOCHLORITE 0.125% 500 ML BTL TOPICAL SCH ×2 (08:42→23:14)
[2016-07-20 12:02] VITALS: BP 128/60; PULSE 79; RESP 20; TEMP 98.2; O2SAT 97
[2016-07-20] MEDS: HYDROmorphone HCL 4 MG TAB PO PRN ×2 (13:33→21:38)
[2016-07-20 16:01] VITALS: BP 146/89; PULSE 76; RESP 20; TEMP 97.6; O2SAT 97
--- NOTE | 2016-07-20 17:45 | HHI.PR ---
Subjective Remarks patient has no complaints denies diarrhea denies nausea or vomiting denies any pain complaint Objective Vitals Vital Signs Date Time Temp Pulse Resp B/P Pulse Ox O2 Delivery O2 Flow Rate FiO2 07/20/16 16:01 97.6 76 20 146/89 97 07/20/16 12:02 98.2 79 20 128/60 97 07/20/16 08:02 98.4 85 20 108/52 96 07/20/16 08:00 Room Air 07/20/16 05:00 97.6 84 16 118/60 97 07/20/16 01:00 97.8 82 16 126/64 98 07/19/16 23:10 Room Air 07/19/16 21:15 97.6 84 16 118/57 96 I/O 07/19/16 07/19/16 07/19/16 07/20/16 07/20/16 07/20/16 07:00 15:00 23:00 07:00 15:00 23:00 Intake Total 500 ml 780 ml 720 ml 1000 ml Output Total 600 ml 500 ml 800 ml 1400 ml Balance -100 ml 280 ml -80 ml -400 ml Intake Oral 500 ml 780 ml 720 ml 1000 ml IV Total 0 ml Output Urine Total 600 ml 500 ml 800 ml 1400 ml # Bowel Movements 2 0 Imaging Last Impressions Abdomen X-Ray 07/09/16 1518 Signed Impressions: Service Date/Time: Saturday, July 09, 2016 17:06 - CONCLUSION: 1. Moderate amount of stool. 2. No dilated loops of bowel or pneumoperitoneum. 3. Bilateral hip dysplasia. Wes Callejas Jr., MD Chest X-Ray 06/08/16 1341 Signed Impressions: Service Date/Time: May 14:46 - CONCLUSION: No acute cardiopulmonary abnormality is identified. Luis Felipe Guerra MD Abdomen/Pelvis CT 06/08/16 1341 Signed Impressions: Service Date/Time: May 18:40 - CONCLUSION: 1. The balloon portion of the suprapubic catheter is inside the prosthetic urethra. 2. Probable hepatic hemangioma. Ryanne Maya MD Objective Remarks GENERAL: patient lying in bed. Awake. Appears comfortable. Alert and oriented x3. SKIN: Warm and dry. 07/14 stage III ulcer overlying left trochanterappears to be healing very well, as well as stage III ulcer overlying sacrum,as well as under perineum, all of which appear to Be healing well. No surrounding erythema. No exudate. HEAD: Normocephalic. EYES: No scleral icterus. No injection or drainage. NECK: Supple, trachea midline. No JVD. CARDIOVASCULAR: Regular rate and rhythm without murmurs, gallops, or rubs. RESPIRATORY: Breath sounds equal bilaterally. No accessory muscle use. GASTROINTESTINAL: Abdomen soft, non-tender, nondistended. brown stool in colostomy bag. MUSCULOSKELETAL: No cyanosis, or edema. BACK: Nontender without obvious deformity. No CVA tenderness. Procedures none Medications and IVs Current Medications Medications (Trade) Dose Ordered Sig/Haja Route Start Time Stop Time Status Last Admin (NS Flush) 2 ml UNSCH PRN FLUSH 06/08/16 20:00 06/28/16 11:40 (NS Flush) 2 ml BID FLUSH 06/08/16 21:00 07/20/16 08:41 (Zofran Inj) 4 mg Q6H PRN IVP 06/08/16 20:00 07/09/16 11:04 (Dulcolax Supp) 10 mg DAILY PRN [place] 06/08/16 20:00 (Tylenol) 650 mg Q6H PRN PO 06/08/16 20:00 (Xanax) 1 mg Q6H PRN PO 06/08/16 20:00 07/19/16 23:28 (Soma) 350 mg TID PRN PO 06/08/16 20:00 07/18/16 00:39 (Ferrous Sulfate) 325 mg BIDPC PO 06/09/16 09:00 07/20/16 17:00 (Neurontin) 800 mg TID PO 06/09/16 09:00 07/20/16 17:00 (Dilaudid) 2 mg Q6H PRN PO 06/08/16 20:00 07/17/16 01:26 (ZyPREXA) 15 mg HS PO 06/08/16 21:00 07/19/16 21:54 (Dilaudid) 4 mg Q4H PRN PO 06/09/16 08:30 07/20/16 13:33 (Protonix) 40 mg DAILY PO 06/09/16 09:00 07/20/16 08:41 (Benadryl) 25 mg Q4H PRN PO 06/23/16 16:00 07/18/16 00:39 (Lovenox Inj) 40 mg Q24H SQ 06/24/16 09:15 07/20/16 08:42 (Dakin'S 0.125% Soln) SOAK GAUZE AND USE TO PACK ... BID TOPICAL 07/01/16 23:00 07/20/16 08:42 (Dilaudid) 6 mg Q8H PRN PO 07/08/16 02:00 07/20/16 08:43 (Whitney-Colace) 1 tab DAILY PO 07/11/16 09:00 07/20/16 08:41 Urinary Catheter: No Vascular Central Line Catheter: No A/P Problem List: (1) Sacral decubitus ulcer ICD Code: L89.159 Status: Chronic Plan: Present at time of admission. Patient had been recently admitted from through 05/10 for same complaint, status post evaluation by infectious disease and status post IV antibiotic therapy, arrange paints made for home health at the time of discharge, however patient reports difficulty obtaining care. The patient is currently homeless. The patient was referred by PCP the emergency department for a cystoscopy with chronic wound management. The patient did not have any signs of infection. Previous hospitalist discussed with ID and driver license agent and likely colonized from superficial swab. No further antibiotics as per ID. Wound care nurse consulted. Continue pain control with Tylenol and oral Dilaudid. (2) Urinary tract infection due to Proteus ICD Code: N39.0 Status: Resolved Plan: Analysis with evidence of possible UTI. Patient has history of chronic UTI due to neurogenic bladder with indwelling catheter. Urine culture grew Escherichia coli initially been treated with Augmentin which was finished on 06/23. Patient had a significant UTI which culture grew Escherichia coli sensitive to ceftriaxone. Super pubic catheter exchange 07/10. Stop date 07/19. (3) Constipation ICD Code: K59.00 Status: Resolved Plan: Continue senna Colace. stable (4) Paraplegia ICD Code: G82.20 Status: Chronic Plan: At baseline. Continue home medications. Trapeze set up. PT ashleyal, recommends SNF, case management to assist. OOB to chair. (5) Neurogenic bladder ICD Code: N31.9 Status: Chronic Plan: Due to paraplegia. Suprapubic catheter exchanged on 07/10. Suprapubic catheter needs to be a change on 08/10. The patient can do this himself if he is outside the hospital. Otherwise Dr. franklin service can do it. Assessment and Plan DVT prophylaxis: SCDs, Lovenox subcutaneous Discharge Planning Patient does not have a place to stay, he also needs regular wound care management, wound is healing well now, needs rehabilitation for long-term placement and wound care. Appreciate case management efforts and assistance in placement. Problem Qualifiers (1) Sacral decubitus ulcer: Qualified Code: L89.154 - Decubitus ulcer of sacral region, stage 4 Mike Lyle MD Jul 20, 2016 17:45
[2016-07-20 20:00] VITALS: BP 134/61; PULSE 94; RESP 16; TEMP 98.1; O2SAT 96
[2016-07-21 00:54] VITALS: BP 133/70; PULSE 92; RESP 16; TEMP 98.6; O2SAT 97
[2016-07-21] MEDS: HYDROmorphone HCL 2 MG TAB PO PRN ×3 (01:27→22:32)
[2016-07-21 04:18] VITALS: BP 122/68; PULSE 88; RESP 16; TEMP 97.8; O2SAT 98
[2016-07-21 08:03] VITALS: BP 124/57; PULSE 79; RESP 18; TEMP 97.5; O2SAT 96
[2016-07-21] MEDS: SODIUM CHLORIDE 0.9% FLUSH 5 ML FLUSH FLUSH SCH ×2 (09:00→22:33)
[2016-07-21] MEDS: SODIUM HYPOCHLORITE 0.125% 500 ML BTL TOPICAL SCH ×2 (09:00→21:00)
[2016-07-21] MEDS: ENOXAPARIN SODIUM 40 MG/0.4 ML SYRINGE SQ SCH (09:15)
[2016-07-21] MEDS: PANTOPRAZOLE SOD 40 MG DELAYED RELEASE TAB PO SCH (09:44)
[2016-07-21] MEDS: GABAPENTIN 400 MG CAP PO SCH ×3 (09:44→18:18)
[2016-07-21] MEDS: FERROUS SULFATE 325 MG (65 MG ELEMENTAL IRON) TAB PO SCH ×2 (09:44→18:18)
[2016-07-21] MEDS: DOCUSATE SODIUM 50 MG/SENNA 8.6 MG TAB PO SCH (09:44)
[2016-07-21] MEDS: ALPRAZolam 1 MG TAB PO PRN ×2 (10:47→22:32)
[2016-07-21 12:21] VITALS: BP 118/56; PULSE 82; RESP 18; TEMP 97.4; O2SAT 96
[2016-07-21] MEDS: HYDROmorphone HCL 4 MG TAB PO PRN (12:40)
[2016-07-21 14:03] VITALS: BP 140/77; PULSE 92; RESP 18; TEMP 97.4; O2SAT 99
--- NOTE | 2016-07-21 18:01 | HHI.PR ---
Subjective Remarks no major overnight events denies cp/sob denies fevers/chills denies diarrhea Objective Vitals Vital Signs Date Time Temp Pulse Resp B/P Pulse Ox O2 Delivery O2 Flow Rate FiO2 07/21/16 14:03 97.4 92 18 140/77 99 07/21/16 13:40 20 07/21/16 12:21 97.4 82 18 118/56 96 07/21/16 09:00 Room Air 07/21/16 08:03 97.5 79 18 124/57 96 07/21/16 04:18 97.8 88 16 122/68 98 07/21/16 00:54 98.6 92 16 133/70 97 07/20/16 21:30 Room Air 07/20/16 20:00 98.1 94 16 134/61 96 I/O 07/20/16 07/20/16 07/20/16 07/21/16 07/21/16 07/21/16 06:59 14:59 22:59 06:59 14:59 22:59 Intake Total 1000 ml 480 ml 720 ml 720 ml 600 ml Output Total 1400 ml 800 ml 600 ml 450 ml 1000 ml Balance -400 ml -320 ml 120 ml 270 ml -400 ml Intake Oral 1000 ml 480 ml 720 ml 720 ml 600 ml IV Total 0 ml Output Urine Total 1400 ml 800 ml 300 ml 450 ml 1000 ml Stool Total 300 ml # Bowel Movements 0 0 0 Imaging Last Impressions Abdomen X-Ray 07/09/16 1518 Signed Impressions: Service Date/Time: Saturday, July 09, 2016 17:06 - CONCLUSION: 1. Moderate amount of stool. 2. No dilated loops of bowel or pneumoperitoneum. 3. Bilateral hip dysplasia. Wes Callejas Jr., MD Chest X-Ray 06/08/16 1341 Signed Impressions: Service Date/Time: May 14:46 - CONCLUSION: No acute cardiopulmonary abnormality is identified. Luis Felipe Guerra MD Abdomen/Pelvis CT 06/08/16 1341 Signed Impressions: Service Date/Time: May 18:40 - CONCLUSION: 1. The balloon portion of the suprapubic catheter is inside the prosthetic urethra. 2. Probable hepatic hemangioma. Ryanne Maya MD Objective Remarks GENERAL: patient lying in bed. Awake. Appears comfortable. Alert and oriented x3. SKIN: Warm and dry. 07/14 stage III ulcer overlying left trochanterappears to be healing very well, as well as stage III ulcer overlying sacrum,as well as under perineum, all of which appear to Be healing well. No surrounding erythema. No exudate. HEAD: Normocephalic. EYES: No scleral icterus. No injection or drainage. NECK: Supple, trachea midline. No JVD. CARDIOVASCULAR: Regular rate and rhythm without murmurs, gallops, or rubs. RESPIRATORY: Breath sounds equal bilaterally. No accessory muscle use. GASTROINTESTINAL: Abdomen soft, non-tender, nondistended. brown stool in colostomy bag. MUSCULOSKELETAL: No cyanosis, or edema. BACK: Nontender without obvious deformity. No CVA tenderness. Procedures none Medications and IVs Current Medications Medications (Trade) Dose Ordered Sig/Haja Route Start Time Stop Time Status Last Admin (NS Flush) 2 ml UNSCH PRN FLUSH 06/08/16 20:00 06/28/16 11:40 (NS Flush) 2 ml BID FLUSH 06/08/16 21:00 07/21/16 09:00 (Zofran Inj) 4 mg Q6H PRN IVP 06/08/16 20:00 07/09/16 11:04 (Dulcolax Supp) 10 mg DAILY PRN [place] 06/08/16 20:00 (Tylenol) 650 mg Q6H PRN PO 06/08/16 20:00 (Xanax) 1 mg Q6H PRN PO 06/08/16 20:00 07/21/16 10:47 (Soma) 350 mg TID PRN PO 06/08/16 20:00 07/18/16 00:39 (Ferrous Sulfate) 325 mg BIDPC PO 06/09/16 09:00 07/21/16 18:18 (Neurontin) 800 mg TID PO 06/09/16 09:00 07/21/16 18:18 (Dilaudid) 2 mg Q6H PRN PO 06/08/16 20:00 07/21/16 10:48 (ZyPREXA) 15 mg HS PO 06/08/16 21:00 07/20/16 21:37 (Dilaudid) 4 mg Q4H PRN PO 06/09/16 08:30 07/21/16 12:40 (Protonix) 40 mg DAILY PO 06/09/16 09:00 07/21/16 09:44 (Benadryl) 25 mg Q4H PRN PO 06/23/16 16:00 07/18/16 00:39 (Lovenox Inj) 40 mg Q24H SQ 06/24/16 09:15 07/21/16 09:15 (Dakin'S 0.125% Soln) SOAK GAUZE AND USE TO PACK ... BID TOPICAL 07/01/16 23:00 07/21/16 09:00 (Dilaudid) 6 mg Q8H PRN PO 07/08/16 02:00 07/21/16 01:27 (Whitney-Colace) 1 tab DAILY PO 07/11/16 09:00 07/21/16 09:44 Urinary Catheter: No Vascular Central Line Catheter: No A/P Problem List: (1) Sacral decubitus ulcer ICD Code: L89.159 Status: Chronic (2) Urinary tract infection due to Proteus ICD Code: N39.0 Status: Resolved (3) Constipation ICD Code: K59.00 Status: Resolved (4) Paraplegia ICD Code: G82.20 Status: Chronic (5) Neurogenic bladder ICD Code: N31.9 Status: Chronic Assessment and Plan (1) Sacral decubitus ulcer Plan: Present at time of admission. Patient had been recently admitted from through 05/10 for same complaint, status post evaluation by infectious disease and status post IV antibiotic therapy, arrange paints made for home health at the time of discharge, however patient reports difficulty obtaining care. The patient is currently homeless. The patient was referred by PCP the emergency department for a cystoscopy with chronic wound management. The patient did not have any signs of infection. Previous hospitalist discussed with ID and broadcast technician and likely colonized from superficial swab. No further antibiotics as per ID. Wound care nurse consulted. Continue pain control with Tylenol and oral Dilaudid. (2) Urinary tract infection due to Proteus Plan: Analysis with evidence of possible UTI. Patient has history of chronic UTI due to neurogenic bladder with indwelling catheter. Urine culture grew Escherichia coli initially been treated with Augmentin which was finished on 06/23. Patient had a significant UTI which culture grew Escherichia coli sensitive to ceftriaxone. Super pubic catheter exchange 07/10. Stop date 07/19. (3) Constipation Plan: Continue senna Colace. Resolved (4) Paraplegia Plan: At baseline. Continue home medications. Trapeze set up. PT eyal, recommends SNF, case management to assist. OOB to chair. (5) Neurogenic bladder Plan: Due to paraplegia. Suprapubic catheter exchanged on 07/10. Suprapubic catheter needs to be a changed on 08/10. The patient can do this himself if he is outside the hospital. Otherwise Dr. franklin service can do it. DVT prophylaxis: SCDs, Lovenox subcutaneous Discharge Planning Patient does not have a place to stay, he also needs regular wound care management, wound is healing well now, needs rehabilitation for long-term placement and wound care. Appreciate case management efforts and assistance in placement. Problem Qualifiers (1) Sacral decubitus ulcer: Qualified Code: L89.154 - Decubitus ulcer of sacral region, stage 4 Mike Lyle MD Jul 21, 2016 18:01
[2016-07-21 20:00] VITALS: BP 123/60; PULSE 104; RESP 20; TEMP 97.8; O2SAT 95
[2016-07-22 00:18] VITALS: BP 136/63; PULSE 100; RESP 20; TEMP 97.6; O2SAT 96
[2016-07-22] MEDS: HYDROmorphone HCL 4 MG TAB PO PRN ×3 (03:28→16:59)
[2016-07-22 04:00] VITALS: BP 100/51; PULSE 85; RESP 16; TEMP 98.1; O2SAT 97
[2016-07-22 08:00] VITALS: BP 137/64; PULSE 93; RESP 18; TEMP 98.1; O2SAT 96
[2016-07-22] MEDS: PANTOPRAZOLE SOD 40 MG DELAYED RELEASE TAB PO SCH (08:34)
[2016-07-22] MEDS: SODIUM CHLORIDE 0.9% FLUSH 5 ML FLUSH FLUSH SCH ×2 (08:34→21:00)
[2016-07-22] MEDS: DOCUSATE SODIUM 50 MG/SENNA 8.6 MG TAB PO SCH (08:34)
[2016-07-22] MEDS: GABAPENTIN 400 MG CAP PO SCH ×3 (08:34→16:59)
[2016-07-22] MEDS: ALPRAZolam 1 MG TAB PO PRN ×2 (08:34→21:28)
[2016-07-22] MEDS: FERROUS SULFATE 325 MG (65 MG ELEMENTAL IRON) TAB PO SCH ×2 (08:34→16:59)
[2016-07-22] MEDS: ENOXAPARIN SODIUM 40 MG/0.4 ML SYRINGE SQ SCH (08:35)
--- NOTE | 2016-07-22 11:08 | HHI.PR ---
Subjective Remarks No major overnight events. Denies chest pain/shortness of breath And denies fevers or chills. Denies diarrhea Objective Vitals Vital Signs Date Time Temp Pulse Resp B/P Pulse Ox O2 Delivery O2 Flow Rate FiO2 07/22/16 08:30 Room Air 07/22/16 08:00 98.1 93 18 137/64 96 07/22/16 04:00 98.1 85 16 100/51 97 07/22/16 00:18 97.6 100 20 136/63 96 07/21/16 20:45 Room Air 07/21/16 20:00 97.8 104 20 123/60 95 07/21/16 14:03 97.4 92 18 140/77 99 07/21/16 13:40 20 07/21/16 12:21 97.4 82 18 118/56 96 I/O 07/21/16 07/21/16 07/21/16 07/22/16 07/22/16 07/22/16 07:00 15:00 23:00 07:00 15:00 23:00 Intake Total 720 ml 600 ml 480 ml 720 ml Output Total 450 ml 1000 ml 650 ml 600 ml Balance 270 ml -400 ml -170 ml 120 ml Intake Oral 720 ml 600 ml 480 ml 720 ml IV Total 0 ml Output Urine Total 450 ml 1000 ml 650 ml 600 ml # Bowel Movements 0 0 Imaging Last Impressions Abdomen X-Ray 07/09/16 1518 Signed Impressions: Service Date/Time: Saturday, July 09, 2016 17:06 - CONCLUSION: 1. Moderate amount of stool. 2. No dilated loops of bowel or pneumoperitoneum. 3. Bilateral hip dysplasia. Wes Callejas Jr., MD Chest X-Ray 06/08/16 1341 Signed Impressions: Service Date/Time: May 14:46 - CONCLUSION: No acute cardiopulmonary abnormality is identified. Luis Felipe Guerra MD Abdomen/Pelvis CT 06/08/16 1341 Signed Impressions: Service Date/Time: May 18:40 - CONCLUSION: 1. The balloon portion of the suprapubic catheter is inside the prosthetic urethra. 2. Probable hepatic hemangioma. Ryanne Maya MD Objective Remarks GENERAL: patient lying in bed. Awake. Appears comfortable. Alert and oriented x3. SKIN: Warm and dry. 07/14 stage III ulcer overlying left trochanterappears to be healing very well, as well as stage III ulcer overlying sacrum,as well as under perineum, all of which appear to Be healing well. No surrounding erythema. No exudate. HEAD: Normocephalic. EYES: No scleral icterus. No injection or drainage. NECK: Supple, trachea midline. No JVD. CARDIOVASCULAR: Regular rate and rhythm without murmurs, gallops, or rubs. RESPIRATORY: Breath sounds equal bilaterally. No accessory muscle use. GASTROINTESTINAL: Abdomen soft, non-tender, nondistended. brown stool in colostomy bag. MUSCULOSKELETAL: No cyanosis, or edema. BACK: Nontender without obvious deformity. No CVA tenderness. Procedures none Medications and IVs Current Medications Medications (Trade) Dose Ordered Sig/Haja Route Start Time Stop Time Status Last Admin (NS Flush) 2 ml UNSCH PRN FLUSH 06/08/16 20:00 06/28/16 11:40 (NS Flush) 2 ml BID FLUSH 06/08/16 21:00 07/22/16 08:34 (Zofran Inj) 4 mg Q6H PRN IVP 06/08/16 20:00 07/22/16 14:21 (Dulcolax Supp) 10 mg DAILY PRN [place] 06/08/16 20:00 (Tylenol) 650 mg Q6H PRN PO 06/08/16 20:00 (Xanax) 1 mg Q6H PRN PO 06/08/16 20:00 07/22/16 08:34 (Soma) 350 mg TID PRN PO 06/08/16 20:00 07/18/16 00:39 (Ferrous Sulfate) 325 mg BIDPC PO 06/09/16 09:00 07/22/16 16:59 (Neurontin) 800 mg TID PO 06/09/16 09:00 07/22/16 16:59 (Dilaudid) 2 mg Q6H PRN PO 06/08/16 20:00 07/21/16 10:48 (ZyPREXA) 15 mg HS PO 06/08/16 21:00 07/21/16 22:32 (Dilaudid) 4 mg Q4H PRN PO 06/09/16 08:30 12/31/16 16:59 (Protonix) 40 mg DAILY PO 06/09/16 09:00 07/22/16 08:34 (Benadryl) 25 mg Q4H PRN PO 06/23/16 16:00 07/22/16 14:21 (Lovenox Inj) 40 mg Q24H SQ 06/24/16 09:15 07/22/16 08:35 (Dakin'S 0.125% Soln) SOAK GAUZE AND USE TO PACK ... BID TOPICAL 07/01/16 23:00 07/22/16 14:21 (Dilaudid) 6 mg Q8H PRN PO 07/08/16 02:00 07/22/16 13:15 (Whitney-Colace) 1 tab DAILY PO 07/11/16 09:00 07/22/16 08:34 A/P Problem List: (1) Sacral decubitus ulcer ICD Code: L89.159 Status: Chronic (2) Urinary tract infection due to Proteus ICD Code: N39.0 Status: Resolved (3) Constipation ICD Code: K59.00 Status: Resolved (4) Paraplegia ICD Code: G82.20 Status: Chronic (5) Neurogenic bladder ICD Code: N31.9 Status: Chronic Assessment and Plan (1) Sacral decubitus ulcer Plan: Present at time of admission. Patient had been recently admitted from through 05/10 for same complaint, status post evaluation by infectious disease and status post IV antibiotic therapy, arrange paints made for home health at the time of discharge, however patient reports difficulty obtaining care. The patient is currently homeless. The patient was referred by PCP the emergency department for a cystoscopy with chronic wound management. The patient did not have any signs of infection. Previous hospitalist discussed with ID and plaster maker and likely colonized from superficial swab. No further antibiotics as per ID. Wound care nurse consulted. Continue pain control with Tylenol and oral Dilaudid. (2) Urinary tract infection due to Proteus Plan: Analysis with evidence of possible UTI. Patient has history of chronic UTI due to neurogenic bladder with indwelling catheter. Urine culture grew Escherichia coli initially been treated with Augmentin which was finished on 06/23. Patient had a significant UTI which culture grew Escherichia coli sensitive to ceftriaxone. Super pubic catheter exchange 07/10. Stop date 07/19. (3) Constipation Plan: Continue senna Colace. Resolved (4) Paraplegia Plan: At baseline. Continue home medications. Trapeze set up. PT ashleyal, recommends SNF, case management to assist. OOB to chair. (5) Neurogenic bladder Plan: Due to paraplegia. Suprapubic catheter exchanged on 07/10. Suprapubic catheter needs to be a changed on 08/10. The patient can do this himself if he is outside the hospital. Otherwise Dr. franklin service can do it. DVT prophylaxis: SCDs, Lovenox subcutaneous Discharge Planning Patient does not have a place to stay, he also needs regular wound care management, wound is healing well now, needs rehabilitation for long-term placement and wound care. Appreciate case management efforts and assistance in placement. Problem Qualifiers (1) Sacral decubitus ulcer: Qualified Code: L89.154 - Decubitus ulcer of sacral region, stage 4 Mike Lyle MD Jul 22, 2016 11:08
[2016-07-22 12:00] VITALS: BP 114/57; PULSE 90; RESP 18; TEMP 97.9; O2SAT 95
[2016-07-22] MEDS: HYDROmorphone HCL 2 MG TAB PO PRN ×2 (13:15→21:28)
[2016-07-22] MEDS: SODIUM HYPOCHLORITE 0.125% 500 ML BTL TOPICAL SCH ×2 (14:21→21:00)
[2016-07-22] MEDS: ONDANSETRON HCL 4 MG/2 ML VIAL IVP PRN (14:21)
[2016-07-22] MEDS: diphenhydrAMINE HCL 25 MG CAP PO PRN (14:21)
[2016-07-22 16:00] VITALS: BP 130/64; PULSE 79; RESP 18; TEMP 97.3; O2SAT 97
[2016-07-22 20:00] VITALS: BP 128/58; PULSE 91; RESP 20; TEMP 97.7; O2SAT 94
[2016-07-23] VITALS: BP 131/68; PULSE 91; RESP 20; TEMP 98.3; O2SAT 95
[2016-07-23] MEDS: CARISOPRODOL 350 MG TAB PO PRN ×2 (00:05→13:16)
[2016-07-23] MEDS: HYDROmorphone HCL 4 MG TAB PO PRN ×3 (01:44→17:59)
[2016-07-23 04:00] VITALS: BP 133/60; PULSE 89; RESP 18; TEMP 98.4; O2SAT 97
[2016-07-23 08:00] VITALS: BP 124/54; PULSE 86; RESP 18; TEMP 97.7; O2SAT 96
[2016-07-23] MEDS: SODIUM CHLORIDE 0.9% FLUSH 5 ML FLUSH FLUSH SCH ×2 (09:00→21:00)
[2016-07-23] MEDS: SODIUM HYPOCHLORITE 0.125% 500 ML BTL TOPICAL SCH ×2 (09:00→21:00)
[2016-07-23] MEDS: DOCUSATE SODIUM 50 MG/SENNA 8.6 MG TAB PO SCH (09:00)
[2016-07-23] MEDS: ENOXAPARIN SODIUM 40 MG/0.4 ML SYRINGE SQ SCH (09:15)
[2016-07-23] MEDS: GABAPENTIN 400 MG CAP PO SCH ×3 (09:55→17:59)
[2016-07-23] MEDS: PANTOPRAZOLE SOD 40 MG DELAYED RELEASE TAB PO SCH (09:55)
[2016-07-23] MEDS: FERROUS SULFATE 325 MG (65 MG ELEMENTAL IRON) TAB PO SCH ×2 (09:55→17:59)
[2016-07-23] MEDS: diphenhydrAMINE HCL 25 MG CAP PO PRN (09:56)
[2016-07-23 12:00] VITALS: BP 119/60; PULSE 80; RESP 18; TEMP 97.7; O2SAT 95
[2016-07-23] MEDS: HYDROmorphone HCL 2 MG TAB PO PRN ×2 (14:03→22:14)
[2016-07-23 16:00] VITALS: BP 115/56; PULSE 78; RESP 18; TEMP 97.6; O2SAT 95
[2016-07-23 20:00] VITALS: BP 121/64; PULSE 83; RESP 20; TEMP 97.9; O2SAT 94
--- NOTE | 2016-07-23 21:08 | HHI.PR ---
Subjective Remarks no major overnight events denies cp/sob stable vital signs denies fevers/chills Objective Vitals Vital Signs Date Time Temp Pulse Resp B/P Pulse Ox O2 Delivery O2 Flow Rate FiO2 07/23/16 16:00 97.6 78 18 115/56 95 07/23/16 12:00 97.7 80 18 119/60 95 07/23/16 09:55 Room Air 07/23/16 08:00 97.7 86 18 124/54 96 07/23/16 04:00 Room Air 07/23/16 04:00 98.4 89 18 133/60 97 07/23/16 00:00 Room Air 07/23/16 00:00 98.3 91 20 131/68 95 I/O 07/22/16 07/22/16 07/22/16 07/23/16 07/23/16 07/23/16 07:00 15:00 23:00 07:00 15:00 23:00 Intake Total 720 ml 726 ml 720 ml 600 ml 720 ml Output Total 600 ml 1200 ml 1150 ml 1200 ml 750 ml Balance 120 ml -474 ml -430 ml -600 ml -30 ml Intake Oral 720 ml 720 ml 720 ml 600 ml 720 ml IV Total 6 ml Output Urine Total 600 ml 1200 ml 1150 ml 1200 ml 750 ml # Bowel Movements 0 1 0 Imaging Last Impressions Abdomen X-Ray 07/09/16 1518 Signed Impressions: Service Date/Time: Saturday, July 09, 2016 17:06 - CONCLUSION: 1. Moderate amount of stool. 2. No dilated loops of bowel or pneumoperitoneum. 3. Bilateral hip dysplasia. Wes Callejas Jr., MD Chest X-Ray 06/08/16 1341 Signed Impressions: Service Date/Time: May 14:46 - CONCLUSION: No acute cardiopulmonary abnormality is identified. Luis Felipe Guerra MD Abdomen/Pelvis CT 06/08/16 1341 Signed Impressions: Service Date/Time: May 18:40 - CONCLUSION: 1. The balloon portion of the suprapubic catheter is inside the prosthetic urethra. 2. Probable hepatic hemangioma. Ryanne Maya MD Objective Remarks GENERAL: patient lying in bed. Awake. Appears comfortable. Alert and oriented x3. SKIN: Warm and dry. 07/14 stage III ulcer overlying left trochanterappears to be healing very well, as well as stage III ulcer overlying sacrum,as well as under perineum, all of which appear to Be healing well. No surrounding erythema. No exudate. HEAD: Normocephalic. EYES: No scleral icterus. No injection or drainage. NECK: Supple, trachea midline. No JVD. CARDIOVASCULAR: Regular rate and rhythm without murmurs, gallops, or rubs. RESPIRATORY: Breath sounds equal bilaterally. No accessory muscle use. GASTROINTESTINAL: Abdomen soft, non-tender, nondistended. brown stool in colostomy bag. MUSCULOSKELETAL: No cyanosis, or edema. BACK: Nontender without obvious deformity. No CVA tenderness. Procedures none Medications and IVs Current Medications Medications (Trade) Dose Ordered Sig/Haja Route Start Time Stop Time Status Last Admin (NS Flush) 2 ml UNSCH PRN FLUSH 06/08/16 20:00 06/28/16 11:40 (NS Flush) 2 ml BID FLUSH 06/08/16 21:00 07/23/16 21:00 (Zofran Inj) 4 mg Q6H PRN IVP 06/08/16 20:00 07/22/16 14:21 (Dulcolax Supp) 10 mg DAILY PRN [place] 06/08/16 20:00 (Tylenol) 650 mg Q6H PRN PO 06/08/16 20:00 (Xanax) 1 mg Q6H PRN PO 06/08/16 20:00 07/23/16 22:14 (Soma) 350 mg TID PRN PO 06/08/16 20:00 07/23/16 13:16 (Ferrous Sulfate) 325 mg BIDPC PO 06/09/16 09:00 07/23/16 17:59 (Neurontin) 800 mg TID PO 06/09/16 09:00 07/23/16 17:59 (Dilaudid) 2 mg Q6H PRN PO 06/08/16 20:00 07/21/16 10:48 (ZyPREXA) 15 mg HS PO 06/08/16 21:00 07/23/16 22:14 (Dilaudid) 4 mg Q4H PRN PO 06/09/16 08:30 07/23/16 17:59 (Protonix) 40 mg DAILY PO 06/09/16 09:00 07/23/16 09:55 (Benadryl) 25 mg Q4H PRN PO 06/23/16 16:00 07/23/16 09:56 (Lovenox Inj) 40 mg Q24H SQ 06/24/16 09:15 07/23/16 09:15 (Dakin'S 0.125% Soln) SOAK GAUZE AND USE TO PACK ... BID TOPICAL 07/01/16 23:00 07/23/16 21:00 (Dilaudid) 6 mg Q8H PRN PO 07/08/16 02:00 07/23/16 22:14 (Whitney-Colace) 1 tab DAILY PO 07/11/16 09:00 07/22/16 08:34 A/P Problem List: (1) Sacral decubitus ulcer ICD Code: L89.159 Status: Chronic (2) Urinary tract infection due to Proteus ICD Code: N39.0 Status: Resolved (3) Constipation ICD Code: K59.00 Status: Resolved (4) Paraplegia ICD Code: G82.20 Status: Chronic (5) Neurogenic bladder ICD Code: N31.9 Status: Chronic Assessment and Plan (1) Sacral decubitus ulcer Plan: Present at time of admission. Patient had been recently admitted from through 05/10 for same complaint, status post evaluation by infectious disease and status post IV antibiotic therapy, arrange paints made for home health at the time of discharge, however patient reports difficulty obtaining care. The patient is currently homeless. The patient was referred by PCP the emergency department for a cystoscopy with chronic wound management. The patient did not have any signs of infection. Previous hospitalist discussed with ID and ruffling machine operator and likely colonized from superficial swab. No further antibiotics as per ID. Wound care nurse consulted. Continue pain control with Tylenol and oral Dilaudid. (2) Urinary tract infection due to Proteus Plan: Analysis with evidence of possible UTI. Patient has history of chronic UTI due to neurogenic bladder with indwelling catheter. Urine culture grew Escherichia coli initially been treated with Augmentin which was finished on 06/23. Patient had a significant UTI which culture grew Escherichia coli sensitive to ceftriaxone. Super pubic catheter exchange 07/10. Stop date 07/19. (3) Constipation Plan: Continue senna Colace. Resolved (4) Paraplegia Plan: At baseline. Continue home medications. Trapeze set up. PT ashleyal, recommends SNF, case management to assist. OOB to chair. (5) Neurogenic bladder Plan: Due to paraplegia. Suprapubic catheter exchanged on 07/10. Suprapubic catheter needs to be a changed on 08/10. The patient can do this himself if he is outside the hospital. Otherwise Dr. franklin service can do it. DVT prophylaxis: SCDs, Lovenox subcutaneous Discharge Planning Patient does not have a place to stay, he also needs regular wound care management, wound is healing well now, needs rehabilitation for long-term placement and wound care. Appreciate case management efforts and assistance in placement. Problem Qualifiers (1) Sacral decubitus ulcer: Qualified Code: L89.154 - Decubitus ulcer of sacral region, stage 4 Mike Lyle MD Jul 23, 2016 21:08
[2016-07-23] MEDS: ALPRAZolam 1 MG TAB PO PRN (22:14)
[2016-07-24] VITALS: BP 127/64; PULSE 87; RESP 22; TEMP 98; O2SAT 95
[2016-07-24] MEDS: CARISOPRODOL 350 MG TAB PO PRN ×2 (00:30→22:44)
[2016-07-24] MEDS: HYDROmorphone HCL 4 MG TAB PO PRN ×3 (02:26→17:55)
[2016-07-24 04:00] VITALS: BP 144/67; PULSE 96; RESP 20; TEMP 98; O2SAT 97
[2016-07-24 08:00] VITALS: BP 123/61; PULSE 87; RESP 16; TEMP 97.3; O2SAT 95
[2016-07-24] MEDS: SODIUM HYPOCHLORITE 0.125% 500 ML BTL TOPICAL SCH ×2 (09:00→21:00)
[2016-07-24] MEDS: SODIUM CHLORIDE 0.9% FLUSH 5 ML FLUSH FLUSH SCH ×2 (09:00→21:00)
[2016-07-24] MEDS: ENOXAPARIN SODIUM 40 MG/0.4 ML SYRINGE SQ SCH (09:15)
[2016-07-24] MEDS: PANTOPRAZOLE SOD 40 MG DELAYED RELEASE TAB PO SCH (09:18)
[2016-07-24] MEDS: FERROUS SULFATE 325 MG (65 MG ELEMENTAL IRON) TAB PO SCH ×2 (09:18→17:55)
[2016-07-24] MEDS: GABAPENTIN 400 MG CAP PO SCH ×3 (09:18→17:55)
[2016-07-24] MEDS: DOCUSATE SODIUM 50 MG/SENNA 8.6 MG TAB PO SCH (09:18)
[2016-07-24] MEDS: LACTIC ACID (AMMONIUM LACTATE) 12% LOTION 225 GM BTL TOPICAL SCH ×2 (11:50→21:00)
[2016-07-24 12:00] VITALS: BP 122/56; PULSE 78; RESP 16; TEMP 97.3; O2SAT 96
[2016-07-24] MEDS: HYDROmorphone HCL 2 MG TAB PO PRN ×2 (14:06→21:36)
[2016-07-24 16:00] VITALS: BP 115/64; PULSE 77; RESP 20; TEMP 97.7; O2SAT 98
--- NOTE | 2016-07-24 17:19 | HHI.PR ---
Subjective Remarks As per RN patient having suprapubic catheter leak but catheter still draining patient denies dysuria/fevers/chills denies cp/sob vital signs stable. Objective Vitals Vital Signs Date Time Temp Pulse Resp B/P Pulse Ox O2 Delivery O2 Flow Rate FiO2 07/24/16 12:00 97.3 78 16 122/56 96 07/24/16 08:00 Room Air 07/24/16 08:00 97.3 87 16 123/61 95 07/24/16 04:00 98.0 96 20 144/67 97 07/24/16 04:00 Room Air 07/24/16 00:00 98.0 87 22 127/64 95 07/24/16 00:00 Room Air 07/23/16 20:00 Room Air 07/23/16 20:00 97.9 83 20 121/64 94 I/O 07/23/16 07/23/16 07/23/16 07/24/16 07/24/16 07/24/16 07:00 15:00 23:00 07:00 15:00 23:00 Intake Total 600 ml 720 ml 640 ml 480 ml 0 ml Output Total 1200 ml 750 ml 1000 ml 1600 ml Balance -600 ml -30 ml -360 ml -1120 ml 0 ml Intake Oral 600 ml 720 ml 640 ml 480 ml IV Total 0 ml Output Urine Total 1200 ml 750 ml 500 ml 1600 ml Stool Total 500 ml Imaging Last Impressions Abdomen X-Ray 07/09/16 1518 Signed Impressions: Service Date/Time: Saturday, July 09, 2016 17:06 - CONCLUSION: 1. Moderate amount of stool. 2. No dilated loops of bowel or pneumoperitoneum. 3. Bilateral hip dysplasia. Wes Callejas Jr., MD Chest X-Ray 06/08/16 1341 Signed Impressions: Service Date/Time: May 14:46 - CONCLUSION: No acute cardiopulmonary abnormality is identified. Luis Felipe Guerra MD Abdomen/Pelvis CT 06/08/16 1341 Signed Impressions: Service Date/Time: May 18:40 - CONCLUSION: 1. The balloon portion of the suprapubic catheter is inside the prosthetic urethra. 2. Probable hepatic hemangioma. Ryanne Maya MD Objective Remarks GENERAL: patient lying in bed. Awake. Appears comfortable. Alert and oriented x3. SKIN: Warm and dry. 07/14 stage III ulcer overlying left trochanterappears to be healing very well, as well as stage III ulcer overlying sacrum,as well as under perineum, all of which appear to Be healing well. No surrounding erythema. No exudate. HEAD: Normocephalic. EYES: No scleral icterus. No injection or drainage. NECK: Supple, trachea midline. No JVD. CARDIOVASCULAR: Regular rate and rhythm without murmurs, gallops, or rubs. RESPIRATORY: Breath sounds equal bilaterally. No accessory muscle use. GASTROINTESTINAL: Abdomen soft, non-tender, nondistended. brown stool in colostomy bag. MUSCULOSKELETAL: No cyanosis, or edema. BACK: Nontender without obvious deformity. No CVA tenderness. Procedures none Medications and IVs Last Impressions Abdomen X-Ray 07/09/16 1518 Signed Impressions: Service Date/Time: Saturday, July 09, 2016 17:06 - CONCLUSION: 1. Moderate amount of stool. 2. No dilated loops of bowel or pneumoperitoneum. 3. Bilateral hip dysplasia. Wes Callejas Jr., MD Chest X-Ray 06/08/16 1341 Signed Impressions: Service Date/Time: May 14:46 - CONCLUSION: No acute cardiopulmonary abnormality is identified. Luis Felipe Guerra MD Abdomen/Pelvis CT 06/08/16 1341 Signed Impressions: Service Date/Time: May 18:40 - CONCLUSION: 1. The balloon portion of the suprapubic catheter is inside the prosthetic urethra. 2. Probable hepatic hemangioma. K. Dominic Maya MD Urinary Catheter: No Vascular Central Line Catheter: No A/P Problem List: (1) Sacral decubitus ulcer ICD Code: L89.159 Status: Chronic (2) Urinary tract infection due to Proteus ICD Code: N39.0 Status: Resolved (3) Constipation ICD Code: K59.00 Status: Resolved (4) Paraplegia ICD Code: G82.20 Status: Chronic (5) Neurogenic bladder ICD Code: N31.9 Status: Chronic Assessment and Plan (1) Sacral decubitus ulcer Plan: Present at time of admission. Patient had been recently admitted from through 05/10 for same complaint, status post evaluation by infectious disease and status post IV antibiotic therapy, arrange paints made for home health at the time of discharge, however patient reports difficulty obtaining care. The patient is currently homeless. The patient was referred by PCP the emergency department for a cystoscopy with chronic wound management. The patient did not have any signs of infection. Previous hospitalist discussed with ID and storeperson and likely colonized from superficial swab. No further antibiotics as per ID. Wound care nurse consulted. Continue pain control with Tylenol and oral Dilaudid. (2) Urinary tract infection due to Proteus Plan: Analysis with evidence of possible UTI. Patient has history of chronic UTI due to neurogenic bladder with indwelling catheter. Urine culture grew Escherichia coli initially been treated with Augmentin which was finished on 06/23. Patient had a significant UTI which culture grew Escherichia coli sensitive to ceftriaxone. Super pubic catheter exchange 07/10. Stop date 07/19. (3) Constipation Plan: Continue senna Colace. Resolved (4) Paraplegia Plan: At baseline. Continue home medications. Trapeze set up. PT eval, recommends SNF, case management to assist. OOB to chair. (5) Neurogenic bladder Plan: Due to paraplegia. Suprapubic catheter exchanged on 07/10. Suprapubic catheter needs to be a changed on 08/10. The patient can do this himself if he is outside the hospital. 07/24/16 Patient has leaking suprapubic catheter - will consult Dr Franklin. Otherwise Dr. franklin service can do it. DVT prophylaxis: SCDs, Lovenox subcutaneous Discharge Planning Patient does not have a place to stay, he also needs regular wound care management, wound is healing well now, needs rehabilitation for long-term placement and wound care. Appreciate case management efforts and assistance in placement. Problem Qualifiers (1) Sacral decubitus ulcer: Qualified Code: L89.154 - Decubitus ulcer of sacral region, stage 4 Mike Lyle MD Jul 24, 2016 17:19
[2016-07-24 20:00] VITALS: BP 146/74; PULSE 94; RESP 20; TEMP 97.8; O2SAT 96
[2016-07-25] VITALS: BP 125/70; PULSE 100; RESP 20; TEMP 97.8; O2SAT 95
[2016-07-25] MEDS: HYDROmorphone HCL 4 MG TAB PO PRN ×3 (01:38→17:37)
[2016-07-25 04:00] VITALS: BP 133/68; PULSE 99; RESP 20; TEMP 97.8; O2SAT 98
[2016-07-25 08:00] VITALS: BP 124/59; PULSE 84; RESP 14; TEMP 97.4; O2SAT 97
[2016-07-25] MEDS: PANTOPRAZOLE SOD 40 MG DELAYED RELEASE TAB PO SCH (09:45)
[2016-07-25] MEDS: SODIUM CHLORIDE 0.9% FLUSH 5 ML FLUSH FLUSH SCH ×2 (09:45→21:00)
[2016-07-25] MEDS: SODIUM HYPOCHLORITE 0.125% 500 ML BTL TOPICAL SCH ×2 (09:45→22:32)
[2016-07-25] MEDS: GABAPENTIN 400 MG CAP PO SCH ×3 (09:45→17:36)
[2016-07-25] MEDS: DOCUSATE SODIUM 50 MG/SENNA 8.6 MG TAB PO SCH (09:45)
[2016-07-25] MEDS: LACTIC ACID (AMMONIUM LACTATE) 12% LOTION 225 GM BTL TOPICAL SCH ×2 (09:45→21:00)
[2016-07-25] MEDS: ENOXAPARIN SODIUM 40 MG/0.4 ML SYRINGE SQ SCH (09:45)
[2016-07-25] MEDS: FERROUS SULFATE 325 MG (65 MG ELEMENTAL IRON) TAB PO SCH ×2 (09:45→17:36)
--- NOTE | 2016-07-25 11:20 | HHI.PR ---
Subjective Remarks Patient status post replacement of suprapubic catheter 2 weeks ago by Presently having small amount of drainage around suprapubic tube Objective Vital Signs Vital Signs Date Time Temp Pulse Resp B/P Pulse Ox O2 Delivery O2 Flow Rate FiO2 07/25/16 08:00 97.4 84 14 124/59 97 07/25/16 08:00 Room Air 07/25/16 04:00 97.8 99 20 133/68 98 07/25/16 00:00 97.8 100 20 125/70 95 07/24/16 21:25 Room Air 07/24/16 21:25 Room Air 07/24/16 20:00 97.8 94 20 146/74 96 07/24/16 16:00 97.7 77 20 115/64 98 07/24/16 12:00 97.3 78 16 122/56 96 I/O 07/24/16 07/24/16 07/24/16 07/25/16 07/25/16 07/25/16 06:59 14:59 22:59 06:59 14:59 22:59 Intake Total 480 ml 450 ml 2 ml 640 ml Output Total 1600 ml 1200 ml 2000 ml Balance -1120 ml -750 ml 2 ml -1360 ml Intake Oral 480 ml 450 ml 640 ml IV Total 0 ml 2 ml Output Urine Total 1600 ml 1200 ml 2000 ml Other Results Suprapubic tube in place draining yellow urine with some sediment noted within the tubing Assessment and Plan Assessment and Plan Urologic impression: Seepage around suprapubic tube likely related to sediment intermittently restricting flow through the lumen of the catheter. Recommendation: #1 irrigate suprapubic catheter with sterile water on a daily basis #2 patient to continue to follow up with for suprapubic catheter changes. Rodrigo Maurice MD Jul 25, 2016 11:20
[2016-07-25 12:00] VITALS: BP 125/57; PULSE 78; RESP 16; TEMP 97.8; O2SAT 96
[2016-07-25] MEDS: HYDROmorphone HCL 2 MG TAB PO PRN ×2 (13:35→22:31)
--- NOTE | 2016-07-25 14:29 | HHI.PR ---
Subjective Remarks No major events Denies fevers or chills. Denies diarrhea. The suprapubic catheter has not been changed Objective Vitals Vital Signs Date Time Temp Pulse Resp B/P Pulse Ox O2 Delivery O2 Flow Rate FiO2 07/25/16 08:00 97.4 84 14 124/59 97 07/25/16 08:00 Room Air 07/25/16 04:00 97.8 99 20 133/68 98 07/25/16 00:00 97.8 100 20 125/70 95 07/24/16 21:25 Room Air 07/24/16 21:25 Room Air 07/24/16 20:00 97.8 94 20 146/74 96 07/24/16 16:00 97.7 77 20 115/64 98 I/O 07/24/16 07/24/16 07/24/16 07/25/16 07/25/16 07/25/16 07:00 15:00 23:00 07:00 15:00 23:00 Intake Total 480 ml 450 ml 2 ml 640 ml Output Total 1600 ml 1200 ml 2000 ml Balance -1120 ml -750 ml 2 ml -1360 ml Intake Oral 480 ml 450 ml 640 ml IV Total 0 ml 2 ml Output Urine Total 1600 ml 1200 ml 2000 ml Imaging Last Impressions Abdomen X-Ray 07/09/16 1518 Signed Impressions: Service Date/Time: Saturday, July 09, 2016 17:06 - CONCLUSION: 1. Moderate amount of stool. 2. No dilated loops of bowel or pneumoperitoneum. 3. Bilateral hip dysplasia. Wes Callejas Jr., MD Chest X-Ray 06/08/16 1341 Signed Impressions: Service Date/Time: May 14:46 - CONCLUSION: No acute cardiopulmonary abnormality is identified. Luis Felipe Guerra MD Abdomen/Pelvis CT 06/08/16 1341 Signed Impressions: Service Date/Time: May 18:40 - CONCLUSION: 1. The balloon portion of the suprapubic catheter is inside the prosthetic urethra. 2. Probable hepatic hemangioma. Ryanne Maya MD Objective Remarks GENERAL: patient lying in bed. Awake. Appears comfortable. Alert and oriented x3. SKIN: Warm and dry. 07/14 stage III ulcer overlying left trochanterappears to be healing very well, as well as stage III ulcer overlying sacrum,as well as under perineum, all of which appear to Be healing well. No surrounding erythema. No exudate. HEAD: Normocephalic. EYES: No scleral icterus. No injection or drainage. NECK: Supple, trachea midline. No JVD. CARDIOVASCULAR: Regular rate and rhythm without murmurs, gallops, or rubs. RESPIRATORY: Breath sounds equal bilaterally. No accessory muscle use. GASTROINTESTINAL: Abdomen soft, non-tender, nondistended. brown stool in colostomy bag. MUSCULOSKELETAL: No cyanosis, or edema. BACK: Nontender without obvious deformity. No CVA tenderness. Procedures none Medications and IVs Current Medications Medications (Trade) Dose Ordered Sig/Haja Route Start Time Stop Time Status Last Admin (NS Flush) 2 ml UNSCH PRN FLUSH 06/08/16 20:00 06/28/16 11:40 (NS Flush) 2 ml BID FLUSH 06/08/16 21:00 07/25/16 09:45 (Zofran Inj) 4 mg Q6H PRN IVP 06/08/16 20:00 07/22/16 14:21 (Dulcolax Supp) 10 mg DAILY PRN NV 06/08/16 20:00 (Tylenol) 650 mg Q6H PRN PO 06/08/16 20:00 (Xanax) 1 mg Q6H PRN PO 06/08/16 20:00 07/23/16 22:14 (Soma) 350 mg TID PRN PO 06/08/16 20:00 07/24/16 22:44 (Ferrous Sulfate) 325 mg BIDPC PO 06/09/16 09:00 07/25/16 09:45 (Neurontin) 800 mg TID PO 06/09/16 09:00 07/25/16 13:35 (Dilaudid) 2 mg Q6H PRN PO 06/08/16 20:00 07/21/16 10:48 (ZyPREXA) 15 mg HS PO 06/08/16 21:00 07/24/16 21:35 (Dilaudid) 4 mg Q4H PRN PO 06/09/16 08:30 07/25/16 09:46 (Protonix) 40 mg DAILY PO 06/09/16 09:00 07/25/16 09:45 (Benadryl) 25 mg Q4H PRN PO 06/23/16 16:00 07/23/16 09:56 (Lovenox Inj) 40 mg Q24H SQ 06/24/16 09:15 07/25/16 09:45 (Dakin'S 0.125% Soln) SOAK GAUZE AND USE TO PACK ... BID TOPICAL 07/01/16 23:00 07/25/16 09:45 (Dilaudid) 6 mg Q8H PRN PO 07/08/16 02:00 07/25/16 13:35 (Whitney-Colace) 1 tab DAILY PO 07/11/16 09:00 07/25/16 09:45 (Lac-Hydrin 12% Lotion) 1 applic BID TOPICAL 07/24/16 11:00 07/25/16 09:45 A/P Problem List: (1) Sacral decubitus ulcer ICD Code: L89.159 Status: Chronic (2) Urinary tract infection due to Proteus ICD Code: N39.0 Status: Resolved (3) Constipation ICD Code: K59.00 Status: Resolved (4) Paraplegia ICD Code: G82.20 Status: Chronic (5) Neurogenic bladder ICD Code: N31.9 Status: Chronic Assessment and Plan (1) Sacral decubitus ulcer Plan: Present at time of admission. Patient had been recently admitted from through 05/10 for same complaint, status post evaluation by infectious disease and status post IV antibiotic therapy, arrange paints made for home health at the time of discharge, however patient reports difficulty obtaining care. The patient is currently homeless. The patient was referred by PCP the emergency department for a cystoscopy with chronic wound management. The patient did not have any signs of infection. Previous hospitalist discussed with ID and diving judge and likely colonized from superficial swab. No further antibiotics as per ID. Wound care nurse consulted. Continue pain control with Tylenol and oral Dilaudid. (2) Urinary tract infection due to Proteus Plan: Analysis with evidence of possible UTI. Patient has history of chronic UTI due to neurogenic bladder with indwelling catheter. Urine culture grew Escherichia coli initially been treated with Augmentin which was finished on 06/23. Patient had a significant UTI which culture grew Escherichia coli sensitive to ceftriaxone. Super pubic catheter exchange 07/10. Stop date 07/19. (3) Constipation Plan: Continue senna Colace. Resolved (4) Paraplegia Plan: At baseline. Continue home medications. Trapeze set up. PT ashleyal, recommends SNF, case management to assist. OOB to chair. (5) Neurogenic bladder Plan: Due to paraplegia. Suprapubic catheter exchanged on 07/10. Suprapubic catheter needs to be a changed on 08/10. The patient can do this himself if he is outside the hospital. 07/25/16 Patient has leaking suprapubic catheter - Dr Maurice saw the patient - recommendations pending. Otherwise Dr. franklin service can do it. DVT prophylaxis: SCDs, Lovenox subcutaneous Discharge Planning Patient does not have a place to stay, he also needs regular wound care management, wound is healing well now, needs rehabilitation for long-term placement and wound care. Appreciate case management efforts and assistance in placement. Problem Qualifiers (1) Sacral decubitus ulcer: Qualified Code: L89.154 - Decubitus ulcer of sacral region, stage 4 Mike Lyle MD Jul 25, 2016 14:29
[2016-07-25 16:00] VITALS: BP 124/78; PULSE 87; RESP 16; TEMP 98; O2SAT 97
[2016-07-25 20:30] VITALS: BP 154/84; PULSE 87; RESP 16; TEMP 98; O2SAT 96
[2016-07-25] MEDS: ALPRAZolam 1 MG TAB PO PRN (22:50)
[2016-07-26 00:10] VITALS: BP 143/82; PULSE 88; RESP 16; TEMP 98.6; O2SAT 95
[2016-07-26] MEDS: HYDROmorphone HCL 4 MG TAB PO PRN ×3 (03:02→17:18)
[2016-07-26 04:53] VITALS: BP 142/80; PULSE 80; RESP 16; TEMP 98.5; O2SAT 96
[2016-07-26 08:00] VITALS: BP 110/58; PULSE 86; RESP 18; TEMP 97.6; O2SAT 95
[2016-07-26] MEDS: FERROUS SULFATE 325 MG (65 MG ELEMENTAL IRON) TAB PO SCH ×2 (08:03→17:18)
[2016-07-26] MEDS: DOCUSATE SODIUM 50 MG/SENNA 8.6 MG TAB PO SCH (08:03)
[2016-07-26] MEDS: PANTOPRAZOLE SOD 40 MG DELAYED RELEASE TAB PO SCH (08:03)
[2016-07-26] MEDS: GABAPENTIN 400 MG CAP PO SCH ×3 (08:03→17:18)
[2016-07-26] MEDS: LACTIC ACID (AMMONIUM LACTATE) 12% LOTION 225 GM BTL TOPICAL SCH ×2 (08:04→21:00)
[2016-07-26] MEDS: ENOXAPARIN SODIUM 40 MG/0.4 ML SYRINGE SQ SCH (08:04)
[2016-07-26] MEDS: SODIUM HYPOCHLORITE 0.125% 500 ML BTL TOPICAL SCH ×2 (08:04→21:00)
[2016-07-26] MEDS: SODIUM CHLORIDE 0.9% FLUSH 5 ML FLUSH FLUSH SCH ×2 (08:04→21:51)
[2016-07-26 12:00] VITALS: BP 123/60; PULSE 90; RESP 18; TEMP 97.1; O2SAT 97
[2016-07-26] MEDS: HYDROmorphone HCL 2 MG TAB PO PRN ×2 (12:56→21:52)
[2016-07-26 16:00] VITALS: BP 127/73; PULSE 85; RESP 18; TEMP 95.4; O2SAT 97
--- NOTE | 2016-07-26 17:28 | HHI.PR ---
Subjective Remarks No acute issue, laying in bed comfortably Objective Vitals Vital Signs Date Time Temp Pulse Resp B/P Pulse Ox O2 Delivery O2 Flow Rate FiO2 07/26/16 16:00 95.4 85 18 127/73 97 07/26/16 12:00 97.1 90 18 123/60 97 07/26/16 08:00 97.6 86 18 110/58 95 07/26/16 07:54 Room Air 07/26/16 04:53 98.5 80 16 142/80 96 07/26/16 00:10 98.6 88 16 143/82 95 07/25/16 21:00 Room Air 07/25/16 20:30 98.0 87 16 154/84 96 I/O 07/25/16 07/25/16 07/25/16 07/26/16 07/26/16 07/26/16 07:00 15:00 23:00 07:00 15:00 23:00 Intake Total 640 ml 240 ml 480 ml 720 ml 960 ml Output Total 2000 ml 1000 ml 1000 ml 700 ml 1750 ml Balance -1360 ml -760 ml -520 ml 20 ml -790 ml Intake Oral 640 ml 240 ml 480 ml 720 ml 960 ml Output Urine Total 2000 ml 1000 ml 1000 ml 700 ml 1750 ml # Bowel Movements 1 0 Objective Remarks GENERAL: Well-nourished, well-developed AA male patient. In no acute distress CARDIOVASCULAR: Regular rate and rhythm without murmurs, gallops, or rubs. RESPIRATORY: Fair air entry bilaterally. No accessory muscle use. GASTROINTESTINAL: Abdomen soft, non-tender, nondistended. Suprapubic catheter in place. EXTREMITIES: No cyanosis, or edema. NEUROLOGICAL: AAO 3, Paraplegic. Left foot in gauze. Procedures none A/P Problem List: (1) Sacral decubitus ulcer ICD Code: L89.159 Status: Chronic (2) Urinary tract infection due to Proteus ICD Code: N39.0 Status: Resolved (3) Constipation ICD Code: K59.00 Status: Resolved (4) Paraplegia ICD Code: G82.20 Status: Chronic (5) Neurogenic bladder ICD Code: N31.9 Status: Chronic Assessment and Plan (1) Sacral decubitus ulcer Present at time of admission. Patient had been recently admitted from 05/02 through 05/10 for same complaint, status post evaluation by infectious disease and status post IV antibiotic therapy, arrange paints made for home health at the time of discharge, however patient reports difficulty obtaining care. The patient is currently homeless. The patient was referred by PCP the emergency department for a cystoscopy with chronic wound management. The patient did not have any signs of infection. Previous hospitalist discussed with ID and berry picker machine operator and likely colonized from superficial swab. No further antibiotics as per ID. Wound care nurse consulted. Continue pain control with Tylenol and oral Dilaudid. (2) Urinary tract infection due to Proteus Analysis with evidence of possible UTI. Patient has history of chronic UTI due to neurogenic bladder with indwelling catheter. Urine culture grew Escherichia coli initially been treated with Augmentin which was finished on 06/23. Patient had a significant UTI which culture grew Escherichia coli sensitive to ceftriaxone. Super pubic catheter exchange 07/10. Stop date 07/19. (3) Constipation Continue senna Colace. Resolved (4) Paraplegia At baseline. Continue home medications. Trapeze set up. PT eval, recommends SNF, case management to assist. OOB to chair. (5) Neurogenic bladder Due to paraplegia. Suprapubic catheter exchanged on 07/10. Suprapubic catheter needs to be a changed on 08/10. The patient can do this himself if he is outside the hospital. Urology consulted DVT prophylaxis: SCDs, Lovenox subcutaneous Discharge Planning Patient does not have a place to stay, he also needs regular wound care management, needs rehabilitation for long-term placement and wound care. case management following for placement Problem Qualifiers (1) Sacral decubitus ulcer: Qualified Code: L89.154 - Decubitus ulcer of sacral region, stage 4 Jose Holley MD Jul 26, 2016 17:28
[2016-07-26 20:00] VITALS: BP 136/59; PULSE 78; RESP 18; TEMP 97.8; O2SAT 97
[2016-07-26] MEDS: ALPRAZolam 1 MG TAB PO PRN (21:52)
[2016-07-26] MEDS: CARISOPRODOL 350 MG TAB PO PRN (23:27)
[2016-07-27] VITALS: BP 147/65; PULSE 99; RESP 18; TEMP 97.3; O2SAT 95
[2016-07-27] MEDS: HYDROmorphone HCL 4 MG TAB PO PRN ×2 (01:52→09:21)
[2016-07-27 04:00] VITALS: BP 101/53; PULSE 80; RESP 18; TEMP 97.7; O2SAT 96
[2016-07-27 08:00] VITALS: BP 114/53; PULSE 83; RESP 18; TEMP 97.6; O2SAT 97
[2016-07-27] MEDS: FERROUS SULFATE 325 MG (65 MG ELEMENTAL IRON) TAB PO SCH ×2 (09:21→17:31)
[2016-07-27] MEDS: SODIUM CHLORIDE 0.9% FLUSH 5 ML FLUSH FLUSH SCH ×2 (09:21→21:05)
[2016-07-27] MEDS: DOCUSATE SODIUM 50 MG/SENNA 8.6 MG TAB PO SCH (09:21)
[2016-07-27] MEDS: GABAPENTIN 400 MG CAP PO SCH ×3 (09:21→17:31)
[2016-07-27] MEDS: PANTOPRAZOLE SOD 40 MG DELAYED RELEASE TAB PO SCH (09:21)
[2016-07-27] MEDS: ENOXAPARIN SODIUM 40 MG/0.4 ML SYRINGE SQ SCH (09:21)
[2016-07-27] MEDS: SODIUM HYPOCHLORITE 0.125% 500 ML BTL TOPICAL SCH ×2 (09:22→21:00)
[2016-07-27] MEDS: LACTIC ACID (AMMONIUM LACTATE) 12% LOTION 225 GM BTL TOPICAL SCH ×2 (09:22→21:00)
[2016-07-27 12:00] VITALS: BP 108/53; PULSE 90; RESP 18; TEMP 97.5; O2SAT 97
[2016-07-27] MEDS: HYDROmorphone HCL 2 MG TAB PO PRN ×3 (12:48→21:04)
[2016-07-27 16:00] VITALS: BP 112/55; PULSE 81; RESP 18; TEMP 97.5; O2SAT 96
--- NOTE | 2016-07-27 16:43 | HHI.PR ---
Subjective Remarks Laying in bed comfortable awake alert oriented in no acute distress tonight complain Objective Vitals Vital Signs Date Time Temp Pulse Resp B/P Pulse Ox O2 Delivery O2 Flow Rate FiO2 07/27/16 12:00 97.5 90 18 108/53 97 07/27/16 09:24 Room Air 07/27/16 08:00 97.6 83 18 114/53 97 07/27/16 04:00 97.7 80 18 101/53 96 07/27/16 00:00 97.3 99 18 147/65 95 07/26/16 20:00 97.8 78 18 136/59 97 07/26/16 19:30 Room Air I/O 07/26/16 07/26/16 07/26/16 07/27/16 07/27/16 07/27/16 07:00 15:00 23:00 07:00 15:00 23:00 Intake Total 720 ml 960 ml 480 ml 240 ml Output Total 700 ml 1750 ml 600 ml 300 ml Balance 20 ml -790 ml -120 ml -60 ml Intake Oral 720 ml 960 ml 480 ml 240 ml Output Urine Total 700 ml 1750 ml 600 ml 300 ml Stool Total 0 ml # Bowel Movements 0 0 Objective Remarks GENERAL: Well-nourished, well-developed AA male patient. In no acute distress CARDIOVASCULAR: Regular rate and rhythm without murmurs, gallops, or rubs. RESPIRATORY: Fair air entry bilaterally. No accessory muscle use. GASTROINTESTINAL: Abdomen soft, non-tender, nondistended. Suprapubic catheter in place. EXTREMITIES: No cyanosis, or edema. NEUROLOGICAL: AAO 3, Paraplegic. Left foot in gauze. Procedures none A/P Problem List: (1) Sacral decubitus ulcer ICD Code: L89.159 Status: Chronic (2) Urinary tract infection due to Proteus ICD Code: N39.0 Status: Resolved (3) Constipation ICD Code: K59.00 Status: Resolved (4) Paraplegia ICD Code: G82.20 Status: Chronic (5) Neurogenic bladder ICD Code: N31.9 Status: Chronic Assessment and Plan 07/27/16: Continue current care A/P: (1) Sacral decubitus ulcer Present at time of admission. Patient had been recently admitted from 05/02 through 05/10 for same complaint, status post evaluation by infectious disease and status post IV antibiotic therapy, arrange paints made for home health at the time of discharge, however patient reports difficulty obtaining care. The patient is currently homeless. The patient was referred by PCP the emergency department for a cystoscopy with chronic wound management. The patient did not have any signs of infection. Previous hospitalist discussed with ID and clinical education coordinator and likely colonized from superficial swab. No further antibiotics as per ID. Wound care nurse consulted. Continue pain control with Tylenol and oral Dilaudid. (2) Urinary tract infection due to Proteus Analysis with evidence of possible UTI. Patient has history of chronic UTI due to neurogenic bladder with indwelling catheter. Urine culture grew Escherichia coli initially been treated with Augmentin which was finished on 06/23. Patient had a significant UTI which culture grew Escherichia coli sensitive to ceftriaxone. Super pubic catheter exchange 07/10. Stop date 07/19. (3) Constipation Continue senna Colace. Resolved (4) Paraplegia At baseline. Continue home medications. Trapeze set up. PT eval, recommends SNF, case management to assist. OOB to chair. (5) Neurogenic bladder Due to paraplegia. Suprapubic catheter exchanged on 07/10. Suprapubic catheter needs to be a changed on 08/10. The patient can do this himself if he is outside the hospital. Urology consulted DVT prophylaxis: SCDs, Lovenox subcutaneous Discharge Planning Patient does not have a place to stay, he also needs regular wound care management, needs rehabilitation for long-term placement and wound care. case management following for placement Problem Qualifiers (1) Sacral decubitus ulcer: Qualified Code: L89.154 - Decubitus ulcer of sacral region, stage 4 Jose Holley MD Jul 27, 2016 16:43
[2016-07-27 20:00] VITALS: BP 129/60; PULSE 96; RESP 18; TEMP 98.1; O2SAT 95
[2016-07-27] MEDS: ALPRAZolam 1 MG TAB PO PRN (21:04)
[2016-07-27] MEDS: CARISOPRODOL 350 MG TAB PO PRN (22:18)
[2016-07-28] VITALS: BP 130/58; PULSE 97; RESP 17; TEMP 97.7; O2SAT 96
[2016-07-28] MEDS: HYDROmorphone HCL 4 MG TAB PO PRN ×3 (01:16→16:30)
[2016-07-28 04:00] VITALS: BP 123/56; PULSE 81; RESP 18; TEMP 97.5; O2SAT 94
[2016-07-28 08:02] VITALS: BP 136/59; PULSE 83; RESP 18; TEMP 97.7; O2SAT 95
[2016-07-28] MEDS: GABAPENTIN 400 MG CAP PO SCH ×3 (08:02→17:57)
[2016-07-28] MEDS: FERROUS SULFATE 325 MG (65 MG ELEMENTAL IRON) TAB PO SCH ×2 (08:02→17:57)
[2016-07-28] MEDS: PANTOPRAZOLE SOD 40 MG DELAYED RELEASE TAB PO SCH (08:02)
[2016-07-28] MEDS: SODIUM CHLORIDE 0.9% FLUSH 5 ML FLUSH FLUSH SCH ×2 (08:03→20:53)
[2016-07-28] MEDS: DOCUSATE SODIUM 50 MG/SENNA 8.6 MG TAB PO SCH (09:00)
[2016-07-28] MEDS: ENOXAPARIN SODIUM 40 MG/0.4 ML SYRINGE SQ SCH (09:36)
[2016-07-28] MEDS: SODIUM HYPOCHLORITE 0.125% 500 ML BTL TOPICAL SCH ×2 (09:37→20:53)
[2016-07-28] MEDS: LACTIC ACID (AMMONIUM LACTATE) 12% LOTION 225 GM BTL TOPICAL SCH ×2 (09:37→20:53)
[2016-07-28] MEDS: diphenhydrAMINE HCL 25 MG CAP PO PRN (09:39)
[2016-07-28] MEDS: HYDROmorphone HCL 2 MG TAB PO PRN ×2 (12:15→20:53)
[2016-07-28 12:30] VITALS: BP 113/56; PULSE 98; RESP 18; TEMP 98.2; O2SAT 96
--- NOTE | 2016-07-28 13:36 | HHI.PR ---
Subjective Remarks laying in bed comfortably denied any complaining Objective Vitals Vital Signs Date Time Temp Pulse Resp B/P Pulse Ox O2 Delivery O2 Flow Rate FiO2 07/28/16 12:30 98.2 98 18 113/56 96 07/28/16 09:14 Room Air 07/28/16 08:02 97.7 83 18 136/59 95 07/28/16 04:00 97.5 81 18 123/56 94 07/28/16 00:00 97.7 97 17 130/58 96 07/27/16 20:00 98.1 96 18 129/60 95 07/27/16 19:30 Room Air 07/27/16 16:00 97.5 81 18 112/55 96 I/O 07/27/16 07/27/16 07/27/16 07/28/16 07/28/16 07/28/16 07:00 15:00 23:00 07:00 15:00 23:00 Intake Total 240 ml 760 ml 480 ml 480 ml Output Total 300 ml 600 ml 1100 ml 1450 ml Balance -60 ml 160 ml -620 ml -970 ml Intake Oral 240 ml 760 ml 480 ml 480 ml Output Urine Total 300 ml 600 ml 700 ml 1450 ml Stool Total 400 ml # Bowel Movements 0 0 Objective Remarks GENERAL: Well-nourished, well-developed AA male patient. In no acute distress CARDIOVASCULAR: Regular rate and rhythm without murmurs, gallops, or rubs. RESPIRATORY: Fair air entry bilaterally. No accessory muscle use. GASTROINTESTINAL: Abdomen soft, non-tender, nondistended. Suprapubic catheter in place. EXTREMITIES: No cyanosis, or edema. NEUROLOGICAL: AAO 3, Paraplegic. Left foot in gauze. Procedures none A/P Problem List: (1) Sacral decubitus ulcer ICD Code: L89.159 Status: Chronic (2) Urinary tract infection due to Proteus ICD Code: N39.0 Status: Resolved (3) Constipation ICD Code: K59.00 Status: Resolved (4) Paraplegia ICD Code: G82.20 Status: Chronic (5) Neurogenic bladder ICD Code: N31.9 Status: Chronic Assessment and Plan 07/28/16: Continue current care, no acute issue, check labs in a.m. CBC BMP A/P: (1) Sacral decubitus ulcer Present at time of admission. Patient had been recently admitted from 05/02 through 05/10 for same complaint, status post evaluation by infectious disease and status post IV antibiotic therapy, arrange paints made for home health at the time of discharge, however patient reports difficulty obtaining care. The patient is currently homeless. The patient was referred by PCP the emergency department for a cystoscopy with chronic wound management. The patient did not have any signs of infection. Previous hospitalist discussed with ID and instructional technology coach and likely colonized from superficial swab. No further antibiotics as per ID. Wound care nurse consulted. Continue pain control with Tylenol and oral Dilaudid. (2) Urinary tract infection due to Proteus Analysis with evidence of possible UTI. Patient has history of chronic UTI due to neurogenic bladder with indwelling catheter. Urine culture grew Escherichia coli initially been treated with Augmentin which was finished on 06/23. Patient had a significant UTI which culture grew Escherichia coli sensitive to ceftriaxone. Super pubic catheter exchange 07/10. Stop date 07/19. (3) Constipation Continue senna Colace. Resolved (4) Paraplegia At baseline. Continue home medications. Trapeze set up. PT eval, recommends SNF, case management to assist. OOB to chair. (5) Neurogenic bladder Due to paraplegia. Suprapubic catheter exchanged on 07/10. Suprapubic catheter needs to be a changed on 08/10. The patient can do this himself if he is outside the hospital. Urology consulted DVT prophylaxis: SCDs, Lovenox subcutaneous Discharge Planning Patient does not have a place to stay, he also needs regular wound care management, needs rehabilitation for long-term placement and wound care. case management following for placement Problem Qualifiers (1) Sacral decubitus ulcer: Qualified Code: L89.154 - Decubitus ulcer of sacral region, stage 4 Jose Holley MD Jul 28, 2016 13:36
[2016-07-28 16:03] VITALS: BP 127/67; PULSE 95; RESP 19; TEMP 97.9; O2SAT 96
[2016-07-28] MEDS: ALPRAZolam 1 MG TAB PO PRN (20:52)
[2016-07-28 20:55] VITALS: BP 143/65; PULSE 103; RESP 24; TEMP 98.1; O2SAT 96
[2016-07-28] MEDS: CARISOPRODOL 350 MG TAB PO PRN (22:28)
[2016-07-29 00:19] VITALS: BP 129/56; PULSE 91; RESP 20; TEMP 97.8; O2SAT 95
[2016-07-29] MEDS: HYDROmorphone HCL 4 MG TAB PO PRN ×4 (01:04→21:13)
[2016-07-29 04:00] VITALS: BP 113/57; PULSE 79; RESP 20; TEMP 97.4; O2SAT 96
[2016-07-29 08:00] VITALS: BP 132/60; PULSE 83; RESP 18; TEMP 97.6; O2SAT 93
[2016-07-29 08:24] LABS: AUTOMATED NEUTROPHIL # 3.1 TH/MM3 (1.8-7.7); BASOPHIL % 0.6 % (0.0-2.0); EOSINOPHIL # 0.3 TH/MM3 (0-0.4); EOSINOPHIL % 3.7 % (0.0-4.0); HEMATOCRIT 35.5 % (39.0-51.0); HEMO FLAGS DIFF FINAL; LYMPH % 51.2 % (9.0-44.0); LYMPHOCYTE # 4.2 TH/MM3 (1.0-4.8); MEAN CELL VOLUME 79.9 FL (80.0-100.0); MEAN CORPUSCULAR HEMOGLOBIN 27.1 PG (27.0-34.0); MONO % 6.8 % (0.0-8.0); NEUT % 37.7 % (16.0-70.0); PLATELET COUNT 454 TH/MM3 (150-450); RED BLOOD COUNT 4.45 MIL/MM3 (4.50-5.90); RED CELL DISTRIBUTION WIDTH 19.6 % (11.6-17.2); WHITE BLOOD COUNT 8.2 TH/MM3 (4.0-11.0)
[2016-07-29 08:44] LABS: BICARBONATE 22.1 MEQ/L (21.0-32.0); POTASSIUM 3.9 MEQ/L (3.5-5.1)
[2016-07-29] MEDS: PANTOPRAZOLE SOD 40 MG DELAYED RELEASE TAB PO SCH (09:36)
[2016-07-29] MEDS: GABAPENTIN 400 MG CAP PO SCH ×3 (09:36→17:16)
[2016-07-29] MEDS: DOCUSATE SODIUM 50 MG/SENNA 8.6 MG TAB PO SCH (09:36)
[2016-07-29] MEDS: FERROUS SULFATE 325 MG (65 MG ELEMENTAL IRON) TAB PO SCH ×2 (09:36→17:16)
[2016-07-29] MEDS: SODIUM CHLORIDE 0.9% FLUSH 5 ML FLUSH FLUSH SCH ×2 (09:37→19:52)
[2016-07-29] MEDS: SODIUM HYPOCHLORITE 0.125% 500 ML BTL TOPICAL SCH ×2 (09:37→19:51)
[2016-07-29] MEDS: LACTIC ACID (AMMONIUM LACTATE) 12% LOTION 225 GM BTL TOPICAL SCH ×2 (09:37→19:51)
[2016-07-29] MEDS: ENOXAPARIN SODIUM 40 MG/0.4 ML SYRINGE SQ SCH (09:43)
--- NOTE | 2016-07-29 11:29 | HHI.PR ---
Subjective Remarks Comfortably laying in bed afebrile, no acute complain I discussed with him the need to start tapering his Dilaudid Iv which she agreed with Objective Vitals Vital Signs Date Time Temp Pulse Resp B/P Pulse Ox O2 Delivery O2 Flow Rate FiO2 07/29/16 08:00 97.6 83 18 132/60 93 07/29/16 08:00 Room Air 07/29/16 04:00 97.4 79 20 113/57 96 07/29/16 00:19 97.8 91 20 129/56 95 07/28/16 20:55 98.1 103 24 143/65 96 07/28/16 19:30 Room Air 07/28/16 16:03 97.9 95 19 127/67 96 07/28/16 12:30 98.2 98 18 113/56 96 I/O 07/28/16 07/28/16 07/28/16 07/29/16 07/29/16 07/29/16 07:00 15:00 23:00 07:00 15:00 23:00 Intake Total 480 ml 1200 ml 600 ml 480 ml Output Total 1450 ml 1300 ml 1950 ml 1200 ml Balance -970 ml -100 ml -1350 ml -720 ml Intake Oral 480 ml 1200 ml 600 ml 480 ml Output Urine Total 1450 ml 1300 ml 1950 ml 1200 ml # Bowel Movements 0 Result Diagram: 07/29/1646 07/29/16 0746 Objective Remarks GENERAL: Well-nourished, well-developed AA male patient. In no acute distress CARDIOVASCULAR: Regular rate and rhythm without murmurs, gallops, or rubs. RESPIRATORY: Fair air entry bilaterally. No accessory muscle use. GASTROINTESTINAL: Abdomen soft, non-tender, nondistended. Suprapubic catheter in place. EXTREMITIES: No cyanosis, or edema. NEUROLOGICAL: AAO 3, Paraplegic. Left foot in gauze. Procedures none A/P Problem List: (1) Sacral decubitus ulcer ICD Code: L89.159 Status: Chronic (2) Urinary tract infection due to Proteus ICD Code: N39.0 Status: Resolved (3) Constipation ICD Code: K59.00 Status: Resolved (4) Paraplegia ICD Code: G82.20 Status: Chronic (5) Neurogenic bladder ICD Code: N31.9 Status: Chronic Assessment and Plan 07/29/16: We'll start tapering Dilaudid as needed, 1 mg every 6 hours for pain 3-5 , and 2 mg every 4 hours for pain 6-10 A/P: (1) Sacral decubitus ulcer Present at time of admission. Patient had been recently admitted from 05/02 through 05/10 for same complaint, status post evaluation by infectious disease and status post IV antibiotic therapy, arrange paints made for home health at the time of discharge, however patient reports difficulty obtaining care. The patient is currently homeless. The patient was referred by PCP the emergency department for a cystoscopy with chronic wound management. The patient did not have any signs of infection. Previous hospitalist discussed with ID and bath steward/stewardess and likely colonized from superficial swab. No further antibiotics as per ID. Wound care nurse following. Continue pain control with Tylenol and oral Dilaudid. (2) Urinary tract infection due to Proteus Analysis with evidence of possible UTI. Patient has history of chronic UTI due to neurogenic bladder with indwelling catheter. Urine culture grew Escherichia coli initially been treated with Augmentin which was finished on 06/23. Patient had a significant UTI which culture grew Escherichia coli sensitive to ceftriaxone. Super pubic catheter exchange 07/10. Stop date 07/19. (3) Constipation Continue senna Colace. Resolved (4) Paraplegia At baseline. Continue home medications. Trapeze set up. PT eyal, recommends SNF, case management to assist. OOB to chair. (5) Neurogenic bladder Due to paraplegia. Suprapubic catheter exchanged on 07/10. Suprapubic catheter needs to be a changed on 08/10. The patient can do this himself if he is outside the hospital. Urology consulted DVT prophylaxis: SCDs, Lovenox subcutaneous Discharge Planning Patient does not have a place to stay, he also needs regular wound care management, needs rehabilitation for long-term placement and wound care. case management following for placement Problem Qualifiers (1) Sacral decubitus ulcer: Qualified Code: L89.154 - Decubitus ulcer of sacral region, stage 4 Jose Holley MD Jul 29, 2016 11:29
[2016-07-29 12:00] VITALS: BP 114/53; PULSE 79; RESP 18; TEMP 97.4; O2SAT 93
[2016-07-29] MEDS ORDERED: HYDROmorphone HCL 2 MG TAB PO PRN (14:00)
[2016-07-29 16:00] VITALS: BP 114/57; PULSE 84; RESP 18; TEMP 97.4; O2SAT 96
[2016-07-29 20:00] VITALS: BP 119/59; PULSE 77; RESP 20; TEMP 97; O2SAT 96
[2016-07-29] MEDS: ALPRAZolam 1 MG TAB PO PRN (21:41)
[2016-07-29] MEDS: CARISOPRODOL 350 MG TAB PO PRN (23:14)
[2016-07-30] VITALS: BP 118/61; PULSE 96; RESP 20; TEMP 97.7; O2SAT 96
[2016-07-30 04:00] VITALS: BP 120/66; PULSE 75; RESP 20; TEMP 98; O2SAT 93
[2016-07-30] MEDS: HYDROmorphone HCL 2 MG TAB PO PRN ×3 (04:32→22:44)
[2016-07-30 08:00] VITALS: BP 120/59; PULSE 78; RESP 18; TEMP 98; O2SAT 97
[2016-07-30] MEDS: SODIUM CHLORIDE 0.9% FLUSH 5 ML FLUSH FLUSH SCH ×2 (09:00→20:55)
--- NOTE | 2016-07-30 09:52 | HHI.PR ---
Subjective Remarks Patient laying in bed sleeping, woke up to voice Denied chest pain or short of breath, his pain is controlled on the new lordosis of the Dilaudid I discussed with the nurse Objective Vitals Vital Signs Date Time Temp Pulse Resp B/P Pulse Ox O2 Delivery O2 Flow Rate FiO2 07/30/16 04:00 98.0 75 20 120/66 93 07/30/16 00:00 97.7 96 20 118/61 96 07/29/16 21:15 Room Air 07/29/16 20:00 97.0 77 20 119/59 96 07/29/16 16:00 97.4 84 18 114/57 96 07/29/16 12:00 97.4 79 18 114/53 93 I/O 07/29/16 07/29/16 07/29/16 07/30/16 07/30/16 07/30/16 07:00 15:00 23:00 07:00 15:00 23:00 Intake Total 480 ml 480 ml 760 ml Output Total 1200 ml 800 ml 1250 ml Balance -720 ml -320 ml -490 ml Intake Oral 480 ml 480 ml 760 ml Output Urine Total 1200 ml 800 ml 1250 ml Result Diagram: 07/29/1646 07/29/1646 Objective Remarks GENERAL: Well-nourished, well-developed AA male patient. In no acute distress CARDIOVASCULAR: Regular rate and rhythm without murmurs, gallops, or rubs. RESPIRATORY: Fair air entry bilaterally. No accessory muscle use. GASTROINTESTINAL: Abdomen soft, non-tender, nondistended. Suprapubic catheter in place. EXTREMITIES: No cyanosis, or edema. NEUROLOGICAL: AAO 3, Paraplegic. Left foot in gauze. Procedures none A/P Problem List: (1) Sacral decubitus ulcer ICD Code: L89.159 Status: Chronic (2) Urinary tract infection due to Proteus ICD Code: N39.0 Status: Resolved (3) Constipation ICD Code: K59.00 Status: Resolved (4) Paraplegia ICD Code: G82.20 Status: Chronic (5) Neurogenic bladder ICD Code: N31.9 Status: Chronic Assessment and Plan 07/29/16: We'll start tapering Dilaudid as needed, 1 mg every 6 hours for pain 3-5 , and 2 mg every 4 hours for pain 6-10 07/30/16: Doing well with the new lower dose of Dilaudid, D/W nurse, continue current care A/P: (1) Sacral decubitus ulcer Present at time of admission. Patient had been recently admitted from 05/02 through 05/10 for same complaint, status post evaluation by infectious disease and status post IV antibiotic therapy, arrange paints made for home health at the time of discharge, however patient reports difficulty obtaining care. The patient is currently homeless. The patient was referred by PCP the emergency department for a cystoscopy with chronic wound management. The patient did not have any signs of infection. Previous hospitalist discussed with ID and creative resource manager and likely colonized from superficial swab. No further antibiotics as per ID. Wound care nurse following. Continue pain control with Tylenol and oral Dilaudid. (2) Urinary tract infection due to Proteus Analysis with evidence of possible UTI. Patient has history of chronic UTI due to neurogenic bladder with indwelling catheter. Urine culture grew Escherichia coli initially been treated with Augmentin which was finished on 06/23. Patient had a significant UTI which culture grew Escherichia coli sensitive to ceftriaxone. Super pubic catheter exchange 07/10. Stop date 07/19. (3) Constipation Continue senna Colace. Resolved (4) Paraplegia At baseline. Continue home medications. Trapeze set up. PT eval, recommends SNF, case management to assist. OOB to chair. (5) Neurogenic bladder Due to paraplegia. Suprapubic catheter exchanged on 07/10. Suprapubic catheter needs to be a changed on 08/10. The patient can do this himself if he is outside the hospital. Urology consulted DVT prophylaxis: SCDs, Lovenox subcutaneous Discharge Planning Patient does not have a place to stay, he also needs regular wound care management, needs rehabilitation for long-term placement and wound care. case management following for placement Problem Qualifiers (1) Sacral decubitus ulcer: Qualified Code: L89.154 - Decubitus ulcer of sacral region, stage 4 Jose Holley MD Jul 30, 2016 09:52
[2016-07-30] MEDS: PANTOPRAZOLE SOD 40 MG DELAYED RELEASE TAB PO SCH (10:23)
[2016-07-30] MEDS: LACTIC ACID (AMMONIUM LACTATE) 12% LOTION 225 GM BTL TOPICAL SCH ×2 (10:23→20:54)
[2016-07-30] MEDS: SODIUM HYPOCHLORITE 0.125% 500 ML BTL TOPICAL SCH ×2 (10:23→20:54)
[2016-07-30] MEDS: ENOXAPARIN SODIUM 40 MG/0.4 ML SYRINGE SQ SCH (10:23)
[2016-07-30] MEDS: DOCUSATE SODIUM 50 MG/SENNA 8.6 MG TAB PO SCH (10:23)
[2016-07-30] MEDS: GABAPENTIN 400 MG CAP PO SCH ×3 (10:23→18:23)
[2016-07-30] MEDS: FERROUS SULFATE 325 MG (65 MG ELEMENTAL IRON) TAB PO SCH ×2 (10:23→18:23)
[2016-07-30] MEDS: HYDROmorphone HCL 4 MG TAB PO PRN ×2 (10:24→18:23)
[2016-07-30 12:00] VITALS: BP 140/65; PULSE 96; RESP 18; TEMP 97.7; O2SAT 96
[2016-07-30 16:00] VITALS: BP 130/58; PULSE 86; RESP 18; TEMP 97.8; O2SAT 96
[2016-07-30 20:00] VITALS: BP 121/68; PULSE 88; RESP 20; TEMP 98.4; O2SAT 98
[2016-07-30] MEDS: CARISOPRODOL 350 MG TAB PO PRN (20:53)
[2016-07-30] MEDS: ALPRAZolam 1 MG TAB PO PRN (20:53)
[2016-07-31] VITALS: BP 117/62; PULSE 86; RESP 20; TEMP 98; O2SAT 96
[2016-07-31] MEDS: HYDROmorphone HCL 4 MG TAB PO PRN ×3 (02:10→12:32)
[2016-07-31 04:00] VITALS: BP 102/61; PULSE 86; RESP 20; TEMP 98.7; O2SAT 96
[2016-07-31 08:01] VITALS: BP 108/58; PULSE 104; RESP 18; TEMP 97.4; O2SAT 96
[2016-07-31] MEDS: SODIUM CHLORIDE 0.9% FLUSH 5 ML FLUSH FLUSH SCH ×2 (08:17→20:16)
[2016-07-31] MEDS: ENOXAPARIN SODIUM 40 MG/0.4 ML SYRINGE SQ SCH (08:18)
[2016-07-31] MEDS: PANTOPRAZOLE SOD 40 MG DELAYED RELEASE TAB PO SCH (08:19)
[2016-07-31] MEDS: DOCUSATE SODIUM 50 MG/SENNA 8.6 MG TAB PO SCH (08:19)
[2016-07-31] MEDS: GABAPENTIN 400 MG CAP PO SCH ×3 (08:19→16:51)
[2016-07-31] MEDS: FERROUS SULFATE 325 MG (65 MG ELEMENTAL IRON) TAB PO SCH ×2 (08:19→16:51)
[2016-07-31] MEDS: LACTIC ACID (AMMONIUM LACTATE) 12% LOTION 225 GM BTL TOPICAL SCH ×2 (08:20→20:16)
[2016-07-31 12:05] VITALS: BP 114/61; PULSE 104; RESP 18; TEMP 98.1; O2SAT 94
[2016-07-31] MEDS: ALPRAZolam 1 MG TAB PO PRN ×2 (12:32→20:21)
[2016-07-31] MEDS ORDERED: HYDROmorphone HCL PF 1 MG/ML VIAL IV PUSH PRN (13:30)
[2016-07-31] MEDS: HYDROmorphone HCL 2 MG TAB PO PRN (14:25)
[2016-07-31] MEDS: SODIUM HYPOCHLORITE 0.125% 500 ML BTL TOPICAL SCH ×2 (15:20→20:16)
--- NOTE | 2016-07-31 16:01 | HHI.PR ---
Subjective Remarks Timi is resting in bed comfortably today, stated his pain is tolerable, I discussed with him stopping Dilaudid and replacing it with Percocet, he agreed I is cussed with the nurse, patient already lost his iv access Objective Vitals Vital Signs Date Time Temp Pulse Resp B/P Pulse Ox O2 Delivery O2 Flow Rate FiO2 07/31/16 12:05 98.1 104 18 114/61 94 07/31/16 08:15 Room Air 07/31/16 08:01 97.4 104 18 108/58 96 07/31/16 04:00 98.7 86 20 102/61 96 07/31/16 00:00 98.0 86 20 117/62 96 07/30/16 22:45 Room Air 07/30/16 20:00 98.4 88 20 121/68 98 07/30/16 16:00 97.8 86 18 130/58 96 I/O 07/30/16 07/30/16 07/30/16 07/31/16 07/31/16 07/31/16 07:00 15:00 23:00 07:00 15:00 23:00 Intake Total 760 ml 1200 ml 800 ml 0 ml Output Total 1250 ml 550 ml 1090 ml Balance -490 ml 650 ml -290 ml 0 ml Intake Oral 760 ml 1200 ml 800 ml IV Total 0 ml Output Urine Total 1250 ml 550 ml 1090 ml # Bowel Movements 1 0 Result Diagram: 07/29/1646 07/29/1646 Objective Remarks GENERAL: Well-nourished, well-developed AA male patient. In no acute distress CARDIOVASCULAR: Regular rate and rhythm without murmurs, gallops, or rubs. RESPIRATORY: Fair air entry bilaterally. No accessory muscle use. GASTROINTESTINAL: Abdomen soft, non-tender, nondistended. Suprapubic catheter in place. EXTREMITIES: No cyanosis, or edema. NEUROLOGICAL: AAO 3, Paraplegic. Left foot in gauze. Procedures none A/P Problem List: (1) Sacral decubitus ulcer ICD Code: L89.159 Status: Chronic (2) Urinary tract infection due to Proteus ICD Code: N39.0 Status: Resolved (3) Constipation ICD Code: K59.00 Status: Resolved (4) Paraplegia ICD Code: G82.20 Status: Chronic (5) Neurogenic bladder ICD Code: N31.9 Status: Chronic Assessment and Plan 07/29/16: We'll start tapering Dilaudid as needed, 1 mg every 6 hours for pain 3-5 , and 2 mg every 4 hours for pain 6-10 07/30/16: Doing well with the new lower dose of Dilaudid, D/W nurse, continue current care 07/31/16: Will DC Dilaudid, and replace with Percocet as needed, plan to transfer to [facility] tomorrow, I discussed with Dr. Mcdonald regarding transfer to [facility], per protocol patient need to be off Dilaudid Iv A/P: (1) Sacral decubitus ulcer Present at time of admission. Patient had been recently admitted from 05/02 through 05/10 for same complaint, status post evaluation by infectious disease and status post IV antibiotic therapy, arrange paints made for home health at the time of discharge, however patient reports difficulty obtaining care. The patient is currently homeless. The patient was referred by PCP the emergency department for a cystoscopy with chronic wound management. The patient did not have any signs of infection. Previous hospitalist discussed with ID and heel coverer machine operator and likely colonized from superficial swab. No further antibiotics as per ID. Wound care nurse following. Continue pain control with Tylenol and oral Dilaudid. (2) Urinary tract infection due to Proteus Analysis with evidence of possible UTI. Patient has history of chronic UTI due to neurogenic bladder with indwelling catheter. Urine culture grew Escherichia coli initially been treated with Augmentin which was finished on 06/23. Patient had a significant UTI which culture grew Escherichia coli sensitive to ceftriaxone. Super pubic catheter exchange 07/10. Stop date 07/19. (3) Constipation Continue senna Colace. Resolved (4) Paraplegia At baseline. Continue home medications. Trapeze set up. PT eval, recommends SNF, case management to assist. OOB to chair. (5) Neurogenic bladder Due to paraplegia. Suprapubic catheter exchanged on 07/10. Suprapubic catheter needs to be a changed on 08/10. The patient can do this himself if he is outside the hospital. Urology consulted DVT prophylaxis: SCDs, Lovenox subcutaneous Discharge Planning Patient does not have a place to stay, he also needs regular wound care management, needs rehabilitation for long-term placement and wound care. case management following for placement Problem Qualifiers (1) Sacral decubitus ulcer: Qualified Code: L89.154 - Decubitus ulcer of sacral region, stage 4 Jose Holley MD Jul 31, 2016 16:01
[2016-07-31 16:10] VITALS: BP 126/72; PULSE 96; RESP 17; TEMP 97.6; O2SAT 95
[2016-07-31] MEDS: oxyCODONE/ACETAMINOPHEN 7.5 MG/325 MG TAB PO PRN ×3 (16:51→23:16)
[2016-07-31 22:00] VITALS: BP 114/64; PULSE 90; RESP 16; TEMP 97.4; O2SAT 95
[2016-08-01 00:18] VITALS: BP 122/66; PULSE 99; RESP 16; TEMP 97.8; O2SAT 96
[2016-08-01 05:12] VITALS: BP 121/65; PULSE 84; RESP 16; TEMP 97.2; O2SAT 96
[2016-08-01 08:00] VITALS: BP 129/60; PULSE 91; RESP 16; TEMP 97.4; O2SAT 96
[2016-08-01] MEDS: ENOXAPARIN SODIUM 40 MG/0.4 ML SYRINGE SQ SCH (08:55)
[2016-08-01] MEDS: oxyCODONE/ACETAMINOPHEN 7.5 MG/325 MG TAB PO PRN ×4 (08:56→21:34)
[2016-08-01] MEDS: PANTOPRAZOLE SOD 40 MG DELAYED RELEASE TAB PO SCH (08:56)
[2016-08-01] MEDS: DOCUSATE SODIUM 50 MG/SENNA 8.6 MG TAB PO SCH (08:56)
[2016-08-01] MEDS: FERROUS SULFATE 325 MG (65 MG ELEMENTAL IRON) TAB PO SCH ×2 (08:56→17:57)
[2016-08-01] MEDS: GABAPENTIN 400 MG CAP PO SCH ×3 (08:56→17:57)
[2016-08-01] MEDS: SODIUM CHLORIDE 0.9% FLUSH 5 ML FLUSH FLUSH SCH ×2 (08:59→21:00)
[2016-08-01] MEDS: LACTIC ACID (AMMONIUM LACTATE) 12% LOTION 225 GM BTL TOPICAL SCH ×2 (09:00→21:00)
[2016-08-01] MEDS: SODIUM HYPOCHLORITE 0.125% 500 ML BTL TOPICAL SCH ×2 (09:00→21:00)
[2016-08-01 12:00] VITALS: BP 124/63; PULSE 94; RESP 16; TEMP 97.2; O2SAT 96
[2016-08-01] MEDS: ALPRAZolam 1 MG TAB PO PRN ×2 (12:58→21:38)
--- NOTE | 2016-08-01 13:28 | HHI.PR ---
Subjective Remarks No acute issue, resting comfortably in bed Objective Vitals Vital Signs Date Time Temp Pulse Resp B/P Pulse Ox O2 Delivery O2 Flow Rate FiO2 08/01/16 12:00 97.2 94 16 124/63 96 08/01/16 08:15 Room Air 08/01/16 08:00 97.4 91 16 129/60 96 08/01/16 05:12 97.2 84 16 121/65 96 08/01/16 00:18 97.8 99 16 122/66 96 07/31/16 22:00 97.4 90 16 114/64 95 07/31/16 20:00 Room Air 07/31/16 16:10 97.6 96 17 126/72 95 I/O 07/31/16 07/31/16 07/31/16 08/01/16 08/01/16 08/01/16 07:00 15:00 23:00 07:00 15:00 23:00 Intake Total 800 ml 720 ml 960 ml 590 ml Output Total 1090 ml 1200 ml 1350 ml 800 ml Balance -290 ml -480 ml -390 ml -210 ml Intake Oral 800 ml 720 ml 960 ml 590 ml IV Total 0 ml Output Urine Total 1090 ml 1200 ml 1350 ml 800 ml # Bowel Movements 0 0 0 Result Diagram: 07/29/1674507/29/16745 Objective Remarks GENERAL: Well-nourished, well-developed AA male patient. In no acute distress CARDIOVASCULAR: Regular rate and rhythm without murmurs, gallops, or rubs. RESPIRATORY: Fair air entry bilaterally. No accessory muscle use. GASTROINTESTINAL: Abdomen soft, non-tender, nondistended. Suprapubic catheter in place. EXTREMITIES: No cyanosis, or edema. NEUROLOGICAL: AAO 3, Paraplegic. Left foot in gauze. Procedures none A/P Problem List: (1) Sacral decubitus ulcer ICD Code: L89.159 Status: Chronic (2) Urinary tract infection due to Proteus ICD Code: N39.0 Status: Resolved (3) Constipation ICD Code: K59.00 Status: Resolved (4) Paraplegia ICD Code: G82.20 Status: Chronic (5) Neurogenic bladder ICD Code: N31.9 Status: Chronic Assessment and Plan 07/29/16: We'll start tapering Dilaudid as needed, 1 mg every 6 hours for pain 3-5 , and 2 mg every 4 hours for pain 6-10 07/30/16: Doing well with the new lower dose of Dilaudid, D/W nurse, continue current care 07/31/16: Will DC Dilaudid, and replace with Percocet as needed, plan to transfer to [facility] tomorrow, I discussed with Dr. Mcdonald regarding transfer to [facility], per protocol patient need to be off Dilaudid Iv 08/01/16: Patient off Dilaudid iv, he can be transferred to [facility] whenever has a place available where A/P: (1) Sacral decubitus ulcer Present at time of admission. Patient had been recently admitted from 05/02 through 05/10 for same complaint, status post evaluation by infectious disease and status post IV antibiotic therapy, arrange paints made for home health at the time of discharge, however patient reports difficulty obtaining care. The patient is currently homeless. The patient was referred by PCP the emergency department for a cystoscopy with chronic wound management. The patient did not have any signs of infection. Previous hospitalist discussed with ID and records section supervisor and likely colonized from superficial swab. No further antibiotics as per ID. Wound care nurse following. Continue pain control with Tylenol and oral Dilaudid. (2) Urinary tract infection due to Proteus Analysis with evidence of possible UTI. Patient has history of chronic UTI due to neurogenic bladder with indwelling catheter. Urine culture grew Escherichia coli initially been treated with Augmentin which was finished on 06/23. Patient had a significant UTI which culture grew Escherichia coli sensitive to ceftriaxone. Super pubic catheter exchange 07/10. Stop date 07/19. (3) Constipation Continue senna Colace. Resolved (4) Paraplegia At baseline. Continue home medications. Trapeze set up. PT eval, recommends SNF, case management to assist. OOB to chair. (5) Neurogenic bladder Due to paraplegia. Suprapubic catheter exchanged on 07/10. Suprapubic catheter needs to be a changed on 08/10. The patient can do this himself if he is outside the hospital. Urology consulted DVT prophylaxis: SCDs, Lovenox subcutaneous Discharge Planning Patient does not have a place to stay, he also needs regular wound care management, needs rehabilitation for long-term placement and wound care. case management following for placement Problem Qualifiers (1) Sacral decubitus ulcer: Qualified Code: L89.154 - Decubitus ulcer of sacral region, stage 4 Jose Holley MD Aug 01, 2016 13:28
[2016-08-01 16:00] VITALS: BP 121/57; PULSE 86; RESP 18; TEMP 98.2; O2SAT 95
[2016-08-01 20:00] VITALS: BP 129/67; PULSE 84; RESP 18; TEMP 97.9; O2SAT 94
[2016-08-02] VITALS: BP 133/68; PULSE 104; RESP 20; TEMP 97; O2SAT 95
[2016-08-02] MEDS: oxyCODONE/ACETAMINOPHEN 7.5 MG/325 MG TAB PO PRN ×5 (02:48→22:08)
[2016-08-02 04:00] VITALS: BP 101/51; PULSE 101; RESP 18; TEMP 97.2; O2SAT 92
[2016-08-02 08:00] VITALS: BP 107/55; PULSE 85; RESP 18; TEMP 97.5; O2SAT 94
[2016-08-02] MEDS: FERROUS SULFATE 325 MG (65 MG ELEMENTAL IRON) TAB PO SCH ×2 (09:08→17:14)
[2016-08-02] MEDS: SODIUM CHLORIDE 0.9% FLUSH 5 ML FLUSH FLUSH SCH ×2 (09:08→21:00)
[2016-08-02] MEDS: SODIUM HYPOCHLORITE 0.125% 500 ML BTL TOPICAL SCH ×2 (09:08→21:00)
[2016-08-02] MEDS: GABAPENTIN 400 MG CAP PO SCH ×3 (09:08→17:14)
[2016-08-02] MEDS: PANTOPRAZOLE SOD 40 MG DELAYED RELEASE TAB PO SCH (09:08)
[2016-08-02] MEDS: DOCUSATE SODIUM 50 MG/SENNA 8.6 MG TAB PO SCH (09:08)
[2016-08-02] MEDS: LACTIC ACID (AMMONIUM LACTATE) 12% LOTION 225 GM BTL TOPICAL SCH ×2 (09:09→21:00)
[2016-08-02] MEDS: ENOXAPARIN SODIUM 40 MG/0.4 ML SYRINGE SQ SCH (09:09)
--- NOTE | 2016-08-02 11:47 | HHI.PR ---
Subjective Remarks No acute issue, stable laying in bed comfortably, no chest pain short of breath or fever or chills Objective Vitals Vital Signs Date Time Temp Pulse Resp B/P Pulse Ox O2 Delivery O2 Flow Rate FiO2 08/02/16 09:18 Room Air 08/02/16 04:00 97.2 101 18 101/51 92 08/02/16 00:00 97.0 104 20 133/68 95 08/01/16 20:00 97.9 84 18 129/67 94 08/01/16 20:00 Room Air 08/01/16 16:00 98.2 86 18 121/57 95 08/01/16 12:00 97.2 94 16 124/63 96 I/O 08/01/16 08/01/16 08/01/16 08/02/16 08/02/16 08/02/16 07:00 15:00 23:00 07:00 15:00 23:00 Intake Total 590 ml 0 ml 240 ml 480 ml Output Total 800 ml 1000 ml 1000 ml Balance -210 ml 0 ml -760 ml -520 ml Intake Oral 590 ml 240 ml 480 ml IV Total 0 ml Output Urine Total 800 ml 1000 ml 1000 ml # Bowel Movements 0 0 0 Result Diagram: 07/29/1646 07/29/1646 Objective Remarks GENERAL: Well-nourished, well-developed AA male patient. In no acute distress CARDIOVASCULAR: Regular rate and rhythm without murmurs, gallops, or rubs. RESPIRATORY: Fair air entry bilaterally. No accessory muscle use. GASTROINTESTINAL: Abdomen soft, non-tender, nondistended. Suprapubic catheter in place. EXTREMITIES: No cyanosis, or edema. NEUROLOGICAL: AAO 3, Paraplegic. Left foot in gauze. Procedures none A/P Problem List: (1) Sacral decubitus ulcer ICD Code: L89.159 Status: Chronic (2) Urinary tract infection due to Proteus ICD Code: N39.0 Status: Resolved (3) Constipation ICD Code: K59.00 Status: Resolved (4) Paraplegia ICD Code: G82.20 Status: Chronic (5) Neurogenic bladder ICD Code: N31.9 Status: Chronic Assessment and Plan 07/29/16: We'll start tapering Dilaudid as needed, 1 mg every 6 hours for pain 3-5 , and 2 mg every 4 hours for pain 6-10 07/30/16: Doing well with the new lower dose of Dilaudid, D/W nurse, continue current care 07/31/16: Will DC Dilaudid, and replace with Percocet as needed, [facility] I discussed with Dr[facility] Mcdonald [facility], per protocol patient need to be off Dilaudid Iv 08/01/16: Patient off Dilaudid iv, he can be transferred to [facility] whenever has a place available where A/P: (1) Sacral decubitus ulcer Present at time of admission. Patient had been recently admitted from 05/02 through 05/10 for same complaint, status post evaluation by infectious disease and status post IV antibiotic therapy, arrange paints made for home health at the time of discharge, however patient reports difficulty obtaining care. The patient is currently homeless. The patient was referred by PCP the emergency department for a cystoscopy with chronic wound management. The patient did not have any signs of infection. Previous hospitalist discussed with ID and juvenile officer and likely colonized from superficial swab. No further antibiotics as per ID. Wound care nurse following. Continue pain control with Tylenol and oral Dilaudid. (2) Urinary tract infection due to Proteus Analysis with evidence of possible UTI. Patient has history of chronic UTI due to neurogenic bladder with indwelling catheter. Urine culture grew Escherichia coli initially been treated with Augmentin which was finished on 06/23. Patient had a significant UTI which culture grew Escherichia coli sensitive to ceftriaxone. Super pubic catheter exchange 07/10. Stop date 07/19. (3) Constipation Continue senna Colace. Resolved (4) Paraplegia At baseline. Continue home medications. Trapeze set up. PT eval, recommends SNF, case management to assist. OOB to chair. (5) Neurogenic bladder Due to paraplegia. Suprapubic catheter exchanged on 07/10. Suprapubic catheter needs to be a changed on 08/10. The patient can do this himself if he is outside the hospital. Urology consulted DVT prophylaxis: SCDs, Lovenox subcutaneous Discharge Planning Patient does not have a place to stay, he also needs regular wound care management, needs rehabilitation for long-term placement and wound care. case management following for placement Problem Qualifiers (1) Sacral decubitus ulcer: Qualified Code: L89.154 - Decubitus ulcer of sacral region, stage 4 Jose Holley MD Aug 02, 2016 11:47
[2016-08-02 12:00] VITALS: BP 124/60; PULSE 96; RESP 18; TEMP 97.2; O2SAT 96
--- NOTE | 2016-08-02 13:35 | HHI.PR ---
Subjective Remarks Lengthy stay patient, difficulty placement Plan to send to [facility] when bed is available, since he is now off IV Dilaudid No acute issue Objective Vitals Vital Signs Date Time Temp Pulse Resp B/P Pulse Ox O2 Delivery O2 Flow Rate FiO2 08/02/16 09:18 Room Air 08/02/16 04:00 97.2 101 18 101/51 92 08/02/16 00:00 97.0 104 20 133/68 95 08/01/16 20:00 97.9 84 18 129/67 94 08/01/16 20:00 Room Air 08/01/16 16:00 98.2 86 18 121/57 95 I/O 08/01/16 08/01/16 08/01/16 08/02/16 08/02/16 08/02/16 07:00 15:00 23:00 07:00 15:00 23:00 Intake Total 590 ml 0 ml 240 ml 480 ml Output Total 800 ml 1000 ml 1000 ml Balance -210 ml 0 ml -760 ml -520 ml Intake Oral 590 ml 240 ml 480 ml IV Total 0 ml Output Urine Total 800 ml 1000 ml 1000 ml # Bowel Movements 0 0 0 Result Diagram: 07/29/1674507/29/1646 Objective Remarks GENERAL: Well-nourished, well-developed AA male patient. In no acute distress CARDIOVASCULAR: Regular rate and rhythm without murmurs, gallops, or rubs. RESPIRATORY: Fair air entry bilaterally. No accessory muscle use. GASTROINTESTINAL: Abdomen soft, non-tender, nondistended. Suprapubic catheter in place. EXTREMITIES: No cyanosis, or edema. NEUROLOGICAL: AAO 3, Paraplegic. Left foot in gauze. Procedures none A/P Problem List: (1) Sacral decubitus ulcer ICD Code: L89.159 Status: Chronic (2) Urinary tract infection due to Proteus ICD Code: N39.0 Status: Resolved (3) Constipation ICD Code: K59.00 Status: Resolved (4) Paraplegia ICD Code: G82.20 Status: Chronic (5) Neurogenic bladder ICD Code: N31.9 Status: Chronic Assessment and Plan Paraplegic patient with sacral decubitus ulcer and wound VAC, difficulty placement recently wean him off Dilaudid he is on Percocet, plan was to [facility], when bed is available A/P: (1) Sacral decubitus ulcer Present at time of admission. Patient had been recently admitted from 05/02 through 05/10 for same complaint, status post evaluation by infectious disease and status post IV antibiotic therapy, arrange paints made for home health at the time of discharge, however patient reports difficulty obtaining care. The patient is currently homeless. The patient was referred by PCP the emergency department for a cystoscopy with chronic wound management. The patient did not have any signs of infection. Previous hospitalist discussed with ID and sliver lap tender and likely colonized from superficial swab. No further antibiotics as per ID. Wound care nurse following. Continue pain control with Tylenol and oral Dilaudid. (2) Urinary tract infection due to Proteus Analysis with evidence of possible UTI. Patient has history of chronic UTI due to neurogenic bladder with indwelling catheter. Urine culture grew Escherichia coli initially been treated with Augmentin which was finished on 06/23. Patient had a significant UTI which culture grew Escherichia coli sensitive to ceftriaxone. Super pubic catheter exchange 07/10. Stop date 07/19. (3) Constipation Continue senna Colace. Resolved (4) Paraplegia At baseline. Continue home medications. Trapeze set up. PT eval, recommends SNF, case management to assist. OOB to chair. (5) Neurogenic bladder Due to paraplegia. Suprapubic catheter exchanged on 07/10. Suprapubic catheter needs to be a changed on 08/10. The patient can do this himself if he is outside the hospital. Urology consulted DVT prophylaxis: SCDs, Lovenox subcutaneous Discharge Planning Patient does not have a place to stay, he also needs regular wound care management, needs rehabilitation for long-term placement and wound care. case management following for placement Plan to transfer to [facility] when bed available Problem Qualifiers (1) Sacral decubitus ulcer: Qualified Code: L89.154 - Decubitus ulcer of sacral region, stage 4 Jose Holley MD Aug 02, 2016 13:35
[2016-08-02 16:00] VITALS: BP 114/64; PULSE 82; RESP 18; TEMP 97.6; O2SAT 95
[2016-08-02 20:00] VITALS: BP 133/66; PULSE 88; RESP 12; TEMP 97.8; O2SAT 96
[2016-08-02] MEDS: ALPRAZolam 1 MG TAB PO PRN (22:00)
[2016-08-03 00:06] VITALS: BP 140/68; PULSE 80; RESP 16; TEMP 98.2; O2SAT 95
[2016-08-03] MEDS: oxyCODONE/ACETAMINOPHEN 7.5 MG/325 MG TAB PO PRN ×5 (02:48→22:29)
[2016-08-03 04:00] VITALS: BP 140/68; PULSE 80; RESP 16; TEMP 98.3; O2SAT 95
[2016-08-03 08:00] VITALS: BP 128/69; PULSE 86; RESP 20; TEMP 97.6; O2SAT 97
[2016-08-03] MEDS: SODIUM CHLORIDE 0.9% FLUSH 5 ML FLUSH FLUSH SCH ×2 (09:00→22:29)
[2016-08-03] MEDS: FERROUS SULFATE 325 MG (65 MG ELEMENTAL IRON) TAB PO SCH ×2 (09:56→17:40)
[2016-08-03] MEDS: PANTOPRAZOLE SOD 40 MG DELAYED RELEASE TAB PO SCH (09:56)
[2016-08-03] MEDS: DOCUSATE SODIUM 50 MG/SENNA 8.6 MG TAB PO SCH (09:56)
[2016-08-03] MEDS: GABAPENTIN 400 MG CAP PO SCH ×3 (09:56→17:40)
[2016-08-03] MEDS: LACTIC ACID (AMMONIUM LACTATE) 12% LOTION 225 GM BTL TOPICAL SCH ×2 (09:57→22:30)
[2016-08-03] MEDS: SODIUM HYPOCHLORITE 0.125% 500 ML BTL TOPICAL SCH ×2 (09:57→22:29)
[2016-08-03] MEDS: ENOXAPARIN SODIUM 40 MG/0.4 ML SYRINGE SQ SCH (09:57)
[2016-08-03 12:00] VITALS: BP 124/62; PULSE 94; RESP 20; TEMP 97.3; O2SAT 97
[2016-08-03 16:00] VITALS: BP 136/67; PULSE 94; RESP 20; TEMP 97.6; O2SAT 97
[2016-08-03 20:00] VITALS: BP 123/63; PULSE 77; RESP 18; TEMP 97.7; O2SAT 96
--- NOTE | 2016-08-03 23:33 | HHI.PR ---
Subjective Remarks patient seen today at around 11:30 AM. Patient reports pain is under control. Denies any nausea, vomiting, chest pain, shortness of breath. Objective Vital Signs Date Time Temp Pulse Resp B/P Pulse Ox O2 Delivery O2 Flow Rate FiO2 08/03/16 20:00 97.7 77 18 123/63 96 08/03/16 16:00 97.6 94 20 136/67 97 08/03/16 12:00 97.3 94 20 124/62 97 08/03/16 08:00 Room Air 08/03/16 08:00 97.6 86 20 128/69 97 08/03/16 04:00 98.3 80 16 140/68 95 08/03/16 00:06 98.2 80 16 140/68 95 I/O 08/02/16 08/02/16 08/02/16 08/03/16 08/03/16 08/03/16 07:00 15:00 23:00 07:00 15:00 23:00 Intake Total 480 ml 840 ml 480 ml 240 ml 480 ml Output Total 1000 ml 700 ml 2000 ml 575 ml 600 ml Balance -520 ml 140 ml -1520 ml -335 ml -120 ml Intake Oral 480 ml 840 ml 480 ml 240 ml 480 ml Output Urine Total 1000 ml 700 ml 2000 ml 575 ml 600 ml # Bowel Movements 0 1 1 Objective Remarks GENERAL: patient lying in bed. Awake. Appears comfortable. Alert and oriented x3. SKIN: Warm and dry. 08/03 sacral and decubitus ulcers reexamined. Peroneal ulcer with slight improvement. No signs of infection. No surrounding erythema. No exudate. HEAD: Normocephalic. EYES: No scleral icterus. No injection or drainage. NECK: Supple, trachea midline. No JVD. CARDIOVASCULAR: Regular rate and rhythm without murmurs, gallops, or rubs. RESPIRATORY: Breath sounds equal bilaterally. No accessory muscle use. GASTROINTESTINAL: Abdomen soft, non-tender, nondistended. brown stool in colostomy bag. MUSCULOSKELETAL: No cyanosis, or edema. BACK: Nontender without obvious deformity. No CVA tenderness. A/P Assessment and Plan 35-year-old male with PMH of Anxiety, Paraplegia, Neurogenic Bladder s/p Suprapubic Cath, Chronic UTI and Chronic Sacral Decubitus Ulcer who presented for evaluation of sacral wound //Stage IV Chronic Sacral Decubitus Ulcer, Present at time of admission. Recent admit 05/02-05/10 for same, s/p eval by ID and IV Abx, arrangements made for Home Health at time of d/c however pt reports difficulty obtaining care, currently homeless. Patient referred to ED by PCP for assistance with chronic wound management. Afebrile, no leukocytosis. Previous hospitalist discussed with ID and service tester, wounds appear to be healing from previous with no signs of acute infection. Wound culture grew MRSA, likely colonized from superficial swab. No further antibiotics for sacral wounds per ID. Wound care nurse consulted, appreciate recommendations, orders for dressing changes placed. On oral Dilaudid at home for pain control, continue oral Dilaudid 2-4 mg as needed. 0.5 mg IV Dilaudid prn with wound changes as needed for pain. Continue recommendations per plastic surgery. -Add Toradol 30 mg IV every 6 per for breakthrough pain 06/22/16. Sacral wounds healing well. -patient is off IV Dilaudid. -transfer to [place] when bed available -reconsult wound care nursing. //E Coli/Proteus UTI: UA with evidence of possible UTI. H/o chronic UTI due to neurogenic bladder w/ indwelling cath. Previous urine culture with Escherichia coli and Proteus. Suprapubic cath changed 06/09. ID consulted, appreciated recommendations. Urine culture with E.coli, continue Augmentin, finish 14 days of treatment (stop date 06/23). -07/06patient says his urine has become more cloudy.urinalysis and urine culture pending. = e.Coli sensitive to ceftriaxone. Suprapubic catheter exchanged 07/10. -status post course of ceftriaxone with stop date of 07/19. Off all antibiotics at this time. //constipation. 07/09. Abdominal distention, decreased ostomy output. Abdominal film with increased stool. Cathartics ordered. -07/10start daily senna to prevent constipation on narcotics. = Continues with good stool output. Continue daily senna-docusate. //Neurogenic Bladder: Secondary to Paraplegia. Suprapubic Cath exchanged on . --suprapubic catheter needs to be exchanged be on 08/10. He can do this himself if he is outside hospital. Otherwise Dr. Wang service can do it. //Paraplegia: At baseline. Continue home medications. Trapeze setup. PT eval , recommends SNF, case management assisting. //DVT Prophylaxis: SCD/Teds/lovenox. Discharge Planning Patient does not have a place to stay, he also needs regular wound care management, wound is healing well now, needs rehabilitation for long-term placement and wound care.appreciate case management assistance. Lyndon Wilkes MD Aug 03, 2016 23:33
[2016-08-04] VITALS: BP 138/65; PULSE 99; RESP 18; TEMP 98; O2SAT 94
[2016-08-04 04:00] VITALS: BP 131/62; PULSE 88; RESP 18; TEMP 97.7; O2SAT 93
[2016-08-04] MEDS: oxyCODONE/ACETAMINOPHEN 7.5 MG/325 MG TAB PO PRN ×5 (05:13→21:40)
[2016-08-04 08:00] VITALS: BP 115/57; PULSE 79; RESP 18; TEMP 97.6; O2SAT 93
[2016-08-04] MEDS: SODIUM CHLORIDE 0.9% FLUSH 5 ML FLUSH FLUSH SCH ×2 (09:00→21:00)
[2016-08-04] MEDS: GABAPENTIN 400 MG CAP PO SCH ×3 (09:11→17:53)
[2016-08-04] MEDS: ENOXAPARIN SODIUM 40 MG/0.4 ML SYRINGE SQ SCH (09:11)
[2016-08-04] MEDS: DOCUSATE SODIUM 50 MG/SENNA 8.6 MG TAB PO SCH (09:11)
[2016-08-04] MEDS: PANTOPRAZOLE SOD 40 MG DELAYED RELEASE TAB PO SCH (09:11)
[2016-08-04] MEDS: SODIUM HYPOCHLORITE 0.125% 500 ML BTL TOPICAL SCH ×2 (09:12→21:42)
[2016-08-04] MEDS: FERROUS SULFATE 325 MG (65 MG ELEMENTAL IRON) TAB PO SCH ×2 (09:12→17:54)
[2016-08-04] MEDS: LACTIC ACID (AMMONIUM LACTATE) 12% LOTION 225 GM BTL TOPICAL SCH ×2 (09:12→21:42)
[2016-08-04 12:00] VITALS: BP 132/74; PULSE 93; RESP 18; TEMP 97.6; O2SAT 95
[2016-08-04 16:00] VITALS: BP 134/61; PULSE 86; RESP 18; TEMP 97.8; O2SAT 93
[2016-08-04 21:54] VITALS: BP 138/68; PULSE 87; RESP 20; TEMP 97.9; O2SAT 96
--- NOTE | 2016-08-04 23:44 | HHI.PR ---
Subjective Remarks patient seen today around 1 PM. Patient reports that pain is controlled. Denies any chest pain or shortness of breath. Denies any nausea or vomiting. Objective Vital Signs Date Time Temp Pulse Resp B/P Pulse Ox O2 Delivery O2 Flow Rate FiO2 08/04/16 21:54 97.9 87 20 138/68 96 08/04/16 21:30 Room Air 08/04/16 16:00 97.8 86 18 134/61 93 08/04/16 12:00 97.6 93 18 132/74 95 08/04/16 08:00 97.6 79 18 115/57 93 08/04/16 08:00 Room Air 08/04/16 04:00 97.7 88 18 131/62 93 08/04/16 00:00 98.0 99 18 138/65 94 I/O 08/03/16 08/03/16 08/03/16 08/04/16 08/04/16 08/04/16 07:00 15:00 23:00 07:00 15:00 23:00 Intake Total 240 ml 480 ml 360 ml 240 ml 960 ml Output Total 575 ml 600 ml 1200 ml 1000 ml 1650 ml 800 ml Balance -335 ml -120 ml -840 ml -760 ml -690 ml -800 ml Intake Oral 240 ml 480 ml 360 ml 240 ml 960 ml Output Urine Total 575 ml 600 ml 1200 ml 1000 ml 1650 ml 800 ml # Bowel Movements 1 1 Objective Remarks GENERAL: patient lying in bed. Awake. watching TV. Appears comfortable. Alert and oriented x3. SKIN: Warm and dry. 08/03 sacral and decubitus ulcers reexamined. Perineal ulcer with slight improvement. No signs of infection. No surrounding erythema. No exudate. HEAD: Normocephalic. EYES: No scleral icterus. No injection or drainage. NECK: Supple, trachea midline. No JVD. CARDIOVASCULAR: Regular rate and rhythm without murmurs, gallops, or rubs. RESPIRATORY: Breath sounds equal bilaterally. No accessory muscle use. GASTROINTESTINAL: Abdomen soft, non-tender, nondistended. brown stool in colostomy bag. MUSCULOSKELETAL: No cyanosis, or edema. BACK: Nontender without obvious deformity. No CVA tenderness. A/P Assessment and Plan 08/04/16. Patient seen and examined. No acute changes per nursing. Continue wound care. Plan transfer to [place]. 35-year-old male with PMH of Anxiety, Paraplegia, Neurogenic Bladder s/p Suprapubic Cath, Chronic UTI and Chronic Sacral Decubitus Ulcer who presented for evaluation of sacral wound //Stage IV Chronic Sacral Decubitus Ulcer, Present at time of admission. Recent admit 05/02-05/10 for same, s/p eval by ID and IV Abx, arrangements made for Home Health at time of d/c however pt reports difficulty obtaining care, currently homeless. Patient referred to ED by PCP for assistance with chronic wound management. Afebrile, no leukocytosis. Previous hospitalist discussed with ID and workforce advisor, wounds appear to be healing from previous with no signs of acute infection. Wound culture grew MRSA, likely colonized from superficial swab. No further antibiotics for sacral wounds per ID. Wound care nurse consulted, appreciate recommendations, orders for dressing changes placed. On oral Dilaudid at home for pain control, continue oral Dilaudid 2-4 mg as needed. 0.5 mg IV Dilaudid prn with wound changes as needed for pain. Continue recommendations per plastic surgery. -Add Toradol 30 mg IV every 6 per for breakthrough pain 06/22/16. Sacral wounds healing well. -patient is off IV Dilaudid. -transfer to [place] when bed available -reconsult wound care nursing. //E Coli/Proteus UTI: UA with evidence of possible UTI. H/o chronic UTI due to neurogenic bladder w/ indwelling cath. Previous urine culture with Escherichia coli and Proteus. Suprapubic cath changed 06/09. ID consulted, appreciated recommendations. Urine culture with E.coli, continue Augmentin, finish 14 days of treatment (stop date 06/23). -07/06patient says his urine has become more cloudy.urinalysis and urine culture pending. = e.Coli sensitive to ceftriaxone. Suprapubic catheter exchanged 07/10. -status post course of ceftriaxone with stop date of 07/19. Off all antibiotics at this time. //constipation. 07/09. Abdominal distention, decreased ostomy output. Abdominal film with increased stool. Cathartics ordered. -07/10start daily senna to prevent constipation on narcotics. = Continues with good stool output. Continue daily senna-docusate. //Neurogenic Bladder: Secondary to Paraplegia. Suprapubic Cath exchanged on . --suprapubic catheter needs to be exchanged be on 08/10. He can do this himself if he is outside hospital. Otherwise Dr. Wang service can do it. //Paraplegia: At baseline. Continue home medications. Trapeze setup. PT eval , recommends SNF, case management assisting. //DVT Prophylaxis: SCD/Teds/lovenox. Discharge Planning Patient does not have a place to stay, he also needs regular wound care management, wound is healing well now, needs rehabilitation for long-term placement and wound care.appreciate case management assistance. transfer to [facility] bed available. Lyndon Wilkes MD Aug 04, 2016 23:43
[2016-08-05 01:14] VITALS: BP 111/59; PULSE 85; RESP 18; TEMP 98.1; O2SAT 95
[2016-08-05] MEDS: oxyCODONE/ACETAMINOPHEN 7.5 MG/325 MG TAB PO PRN ×6 (01:56→22:31)
[2016-08-05 04:00] VITALS: BP 126/62; PULSE 83; RESP 18; TEMP 98.2; O2SAT 98
[2016-08-05] MEDS: HYDROmorphone HCL 2 MG TAB PO PRN (04:46)
[2016-08-05 08:00] VITALS: BP 142/72; PULSE 86; RESP 20; TEMP 97.2; O2SAT 95
[2016-08-05] MEDS: SODIUM HYPOCHLORITE 0.125% 500 ML BTL TOPICAL SCH ×2 (09:00→20:38)
[2016-08-05] MEDS: SODIUM CHLORIDE 0.9% FLUSH 5 ML FLUSH FLUSH SCH ×2 (09:00→20:38)
[2016-08-05] MEDS: LACTIC ACID (AMMONIUM LACTATE) 12% LOTION 225 GM BTL TOPICAL SCH ×2 (09:00→20:38)
[2016-08-05] MEDS: DOCUSATE SODIUM 50 MG/SENNA 8.6 MG TAB PO SCH (09:56)
[2016-08-05] MEDS: GABAPENTIN 400 MG CAP PO SCH ×3 (09:56→18:32)
[2016-08-05] MEDS: FERROUS SULFATE 325 MG (65 MG ELEMENTAL IRON) TAB PO SCH ×2 (09:56→18:32)
[2016-08-05] MEDS: PANTOPRAZOLE SOD 40 MG DELAYED RELEASE TAB PO SCH (09:56)
[2016-08-05] MEDS: ENOXAPARIN SODIUM 40 MG/0.4 ML SYRINGE SQ SCH (09:56)
[2016-08-05 12:00] VITALS: BP 127/56; PULSE 95; RESP 16; TEMP 97.8; O2SAT 94
[2016-08-05 16:00] VITALS: BP 111/57; PULSE 90; RESP 16; TEMP 97.8; O2SAT 95
[2016-08-05 20:00] VITALS: BP 135/71; PULSE 93; RESP 20; TEMP 97.7; O2SAT 95
[2016-08-05] MEDS: ALPRAZolam 1 MG TAB PO PRN (20:36)
--- NOTE | 2016-08-05 21:27 | HHI.PR ---
Subjective Remarks patient seen today around 4 PM. Sleeping, wakes up for exam. He reports the pain is controlled. Denies any chest pain or shortness of breath. Denies any nausea or vomiting. Objective Vital Signs Date Time Temp Pulse Resp B/P Pulse Ox O2 Delivery O2 Flow Rate FiO2 08/05/16 16:00 97.8 90 16 111/57 95 08/05/16 12:00 97.8 95 16 127/56 94 08/05/16 08:00 97.2 86 20 142/72 95 08/05/16 07:15 Room Air 08/05/16 04:00 98.2 83 18 126/62 98 08/05/16 01:14 98.1 85 18 111/59 95 08/04/16 21:54 97.9 87 20 138/68 96 08/04/16 21:30 Room Air I/O 08/04/16 08/04/16 08/04/16 08/05/16 08/05/16 08/05/16 07:00 15:00 23:00 07:00 15:00 23:00 Intake Total 240 ml 960 ml 980 ml Output Total 1000 ml 1650 ml 800 ml 1600 ml Balance -760 ml -690 ml -800 ml -620 ml Intake Oral 240 ml 960 ml 980 ml Output Urine Total 1000 ml 1650 ml 800 ml 1600 ml # Bowel Movements 1 Objective Remarks GENERAL: patient lying in bed. sleeping, wakes up for exam. Appears comfortable. Alert and oriented x3. SKIN: Warm and dry. 08/03 sacral and decubitus ulcers reexamined. Perineal ulcer with slight improvement. No signs of infection. No surrounding erythema. No exudate. HEAD: Normocephalic. EYES: No scleral icterus. No injection or drainage. NECK: Supple, trachea midline. No JVD. CARDIOVASCULAR: Regular rate and rhythm without murmurs, gallops, or rubs. RESPIRATORY: Breath sounds equal bilaterally. No accessory muscle use. GASTROINTESTINAL: Abdomen soft, non-tender, nondistended. brown stool in colostomy bag.no changes. MUSCULOSKELETAL: No cyanosis, or edema. BACK: Nontender without obvious deformity. No CVA tenderness. A/P Assessment and Plan 08/05/16. Patient seen and examined. nursing wound care consult pending. No acute changes. 35-year-old male with PMH of Anxiety, Paraplegia, Neurogenic Bladder s/p Suprapubic Cath, Chronic UTI and Chronic Sacral Decubitus Ulcer who presented for evaluation of sacral wound //Stage IV Chronic Sacral Decubitus Ulcer, Present at time of admission. Recent admit 05/02-05/10 for same, s/p eval by ID and IV Abx, arrangements made for Home Health at time of d/c however pt reports difficulty obtaining care, currently homeless. Patient referred to ED by PCP for assistance with chronic wound management. Afebrile, no leukocytosis. Previous hospitalist discussed with ID and harvest manager, wounds appear to be healing from previous with no signs of acute infection. Wound culture grew MRSA, likely colonized from superficial swab. No further antibiotics for sacral wounds per ID. Wound care nurse consulted, appreciate recommendations, orders for dressing changes placed. On oral Dilaudid at home for pain control, continue oral Dilaudid 2-4 mg as needed. 0.5 mg IV Dilaudid prn with wound changes as needed for pain. Continue recommendations per plastic surgery. -Add Toradol 30 mg IV every 6 per for breakthrough pain 06/22/16. Sacral wounds healing well. -patient is off IV Dilaudid. -transfer to [place] when bed available -reconsult wound care nursing pending. //E Coli/Proteus UTI: UA with evidence of possible UTI. H/o chronic UTI due to neurogenic bladder w/ indwelling cath. Previous urine culture with Escherichia coli and Proteus. Suprapubic cath changed 06/09. ID consulted, appreciated recommendations. Urine culture with E.coli, continue Augmentin, finish 14 days of treatment (stop date 06/23). -07/06patient says his urine has become more cloudy.urinalysis and urine culture pending. = e.Coli sensitive to ceftriaxone. Suprapubic catheter exchanged 07/10. -status post course of ceftriaxone with stop date of 07/19. Off all antibiotics at this time. //constipation. 07/09. Abdominal distention, decreased ostomy output. Abdominal film with increased stool. Cathartics ordered. -07/10start daily senna to prevent constipation on narcotics. = Continues with good stool output. Continue daily senna-docusate. //Neurogenic Bladder: Secondary to Paraplegia. Suprapubic Cath exchanged on . --suprapubic catheter needs to be exchanged be on 08/10. He can do this himself if he is outside hospital. Otherwise Dr. Wang service can do it. //Paraplegia: At baseline. Continue home medications. Trapeze setup. PT eval , recommends SNF, case management assisting. //DVT Prophylaxis: SCD/Teds/lovenox. Discharge Planning Patient does not have a place to stay, he also needs regular wound care management, wound is healing well now, needs rehabilitation for long-term placement and wound care.appreciate case management assistance. transfer to [facility] bed available. Lyndon Wilkes MD Aug 05, 2016 21:27
[2016-08-06] VITALS: BP 141/61; PULSE 91; RESP 17; TEMP 97.3; O2SAT 91
[2016-08-06] MEDS: oxyCODONE/ACETAMINOPHEN 7.5 MG/325 MG TAB PO PRN ×4 (02:48→21:25)
[2016-08-06 04:00] VITALS: BP 124/63; PULSE 93; RESP 18; TEMP 98.2; O2SAT 94
[2016-08-06 08:00] VITALS: BP 122/56; PULSE 91; RESP 18; TEMP 98.6; O2SAT 96
[2016-08-06] MEDS: GABAPENTIN 400 MG CAP PO SCH ×3 (09:00→17:23)
[2016-08-06] MEDS: DOCUSATE SODIUM 50 MG/SENNA 8.6 MG TAB PO SCH (09:00)
[2016-08-06] MEDS: SODIUM CHLORIDE 0.9% FLUSH 5 ML FLUSH FLUSH SCH ×2 (09:00→21:00)
[2016-08-06] MEDS: PANTOPRAZOLE SOD 40 MG DELAYED RELEASE TAB PO SCH (09:00)
[2016-08-06] MEDS: LACTIC ACID (AMMONIUM LACTATE) 12% LOTION 225 GM BTL TOPICAL SCH ×2 (09:00→21:00)
[2016-08-06] MEDS: SODIUM HYPOCHLORITE 0.125% 500 ML BTL TOPICAL SCH ×2 (09:00→21:00)
[2016-08-06] MEDS: FERROUS SULFATE 325 MG (65 MG ELEMENTAL IRON) TAB PO SCH ×2 (09:00→17:23)
[2016-08-06] MEDS: ENOXAPARIN SODIUM 40 MG/0.4 ML SYRINGE SQ SCH (09:15)
[2016-08-06 12:00] VITALS: BP 100/50; PULSE 78; RESP 18; TEMP 97.8; O2SAT 96
[2016-08-06 16:00] VITALS: BP 119/59; PULSE 75; RESP 18; TEMP 97.8; O2SAT 94
[2016-08-06 20:00] VITALS: BP 116/58; PULSE 87; RESP 20; TEMP 97.4; O2SAT 96
[2016-08-06] MEDS: ALPRAZolam 1 MG TAB PO PRN (21:25)
--- NOTE | 2016-08-06 23:18 | HHI.PR ---
Subjective Remarks patient seen today at around 3 PM. Patient says he is feeling all right. Reports pain is under control. Objective Vital Signs Date Time Temp Pulse Resp B/P Pulse Ox O2 Delivery O2 Flow Rate FiO2 08/06/16 20:00 97.4 87 20 116/58 96 08/06/16 16:00 97.8 75 18 119/59 94 08/06/16 12:00 97.8 78 18 100/50 96 08/06/16 08:00 98.6 91 18 122/56 96 08/06/16 07:15 Room Air 08/06/16 04:00 98.2 93 18 124/63 94 08/06/16 00:00 97.3 91 17 141/61 91 I/O 08/05/16 08/05/16 08/05/16 08/06/16 08/06/16 08/06/16 07:00 15:00 23:00 07:00 15:00 23:00 Intake Total 980 ml 480 ml 740 ml 480 ml Output Total 1600 ml 1300 ml 800 ml 650 ml Balance -620 ml -820 ml -60 ml -170 ml Intake Oral 980 ml 480 ml 740 ml 480 ml IV Total 0 ml Output Urine Total 1600 ml 1300 ml 800 ml 650 ml # Bowel Movements 1 Objective Remarks GENERAL: patient lying in bed. awake, watching TV. Appears comfortable. Alert and oriented x3.. SKIN: Warm and dry. 08/03 sacral and decubitus ulcers reexamined. Perineal ulcer with slight improvement. No signs of infection. No surrounding erythema. No exudate. HEAD: Normocephalic. EYES: No scleral icterus. No injection or drainage. NECK: Supple, trachea midline. No JVD. CARDIOVASCULAR: Regular rate and rhythm without murmurs, gallops, or rubs. RESPIRATORY: Breath sounds equal bilaterally. No accessory muscle use. GASTROINTESTINAL: Abdomen soft, non-tender, nondistended. brown stool in colostomy bag.no changes. MUSCULOSKELETAL: No cyanosis, or edema. BACK: Nontender without obvious deformity. No CVA tenderness. A/P Assessment and Plan 08/06/16. Patient seen and examined. nursing wound care consult probably on Sunday. Pain controlled.No acute changes. 35-year-old male with PMH of Anxiety, Paraplegia, Neurogenic Bladder s/p Suprapubic Cath, Chronic UTI and Chronic Sacral Decubitus Ulcer who presented for evaluation of sacral wound //Stage IV Chronic Sacral Decubitus Ulcer, Present at time of admission. Recent admit 05/02-05/10 for same, s/p eval by ID and IV Abx, arrangements made for Home Health at time of d/c however pt reports difficulty obtaining care, currently homeless. Patient referred to ED by PCP for assistance with chronic wound management. Afebrile, no leukocytosis. Previous hospitalist discussed with ID and humanities teacher, wounds appear to be healing from previous with no signs of acute infection. Wound culture grew MRSA, likely colonized from superficial swab. No further antibiotics for sacral wounds per ID. Wound care nurse consulted, appreciate recommendations, orders for dressing changes placed. On oral Dilaudid at home for pain control, continue oral Dilaudid 2-4 mg as needed. 0.5 mg IV Dilaudid prn with wound changes as needed for pain. Continue recommendations per plastic surgery. -Add Toradol 30 mg IV every 6 per for breakthrough pain 06/22/16. Sacral wounds healing well. -patient is off IV Dilaudid. -transfer to [place] when bed available -reconsult wound care nursing pending. //E Coli/Proteus UTI: UA with evidence of possible UTI. H/o chronic UTI due to neurogenic bladder w/ indwelling cath. Previous urine culture with Escherichia coli and Proteus. Suprapubic cath changed 06/09. ID consulted, appreciated recommendations. Urine culture with E.coli, continue Augmentin, finish 14 days of treatment (stop date 06/23). -07/06patient says his urine has become more cloudy.urinalysis and urine culture pending. = e.Coli sensitive to ceftriaxone. Suprapubic catheter exchanged 07/10. -status post course of ceftriaxone with stop date of 07/19. Off all antibiotics at this time. //constipation. 07/09. Abdominal distention, decreased ostomy output. Abdominal film with increased stool. Cathartics ordered. -07/10start daily senna to prevent constipation on narcotics. = Continues with good stool output. Continue daily senna-docusate. //Neurogenic Bladder: Secondary to Paraplegia. Suprapubic Cath exchanged on . --suprapubic catheter needs to be exchanged be on 1/19. He can do this himself if he is outside hospital. Otherwise Dr. Wang service can do it. //Paraplegia: At baseline. Continue home medications. Trapeze setup. PT eval , recommends SNF, case management assisting. //DVT Prophylaxis: SCD/Teds/lovenox. Discharge Planning Patient does not have a place to stay, he also needs regular wound care management, wound is healing well now, needs rehabilitation for long-term placement and wound care.appreciate case management assistance. transfer to [facility] bed available. Lyndon Wilkes MD Aug 06, 2016 23:18
[2016-08-07] VITALS: BP 136/68; PULSE 81; RESP 20; TEMP 97.4; O2SAT 98
[2016-08-07] MEDS: oxyCODONE/ACETAMINOPHEN 7.5 MG/325 MG TAB PO PRN ×6 (01:35→22:53)
[2016-08-07 04:00] VITALS: BP 143/86; PULSE 108; RESP 20; TEMP 97.4; O2SAT 96
[2016-08-07 07:57] VITALS: BP 110/58; PULSE 89; RESP 18; TEMP 97.9; O2SAT 95
[2016-08-07] MEDS: SODIUM CHLORIDE 0.9% FLUSH 5 ML FLUSH FLUSH SCH ×2 (09:00→21:00)
[2016-08-07] MEDS: LACTIC ACID (AMMONIUM LACTATE) 12% LOTION 225 GM BTL TOPICAL SCH ×2 (09:00→21:00)
[2016-08-07] MEDS: PANTOPRAZOLE SOD 40 MG DELAYED RELEASE TAB PO SCH (09:41)
[2016-08-07] MEDS: DOCUSATE SODIUM 50 MG/SENNA 8.6 MG TAB PO SCH (09:41)
[2016-08-07] MEDS: GABAPENTIN 400 MG CAP PO SCH ×3 (09:41→18:41)
[2016-08-07] MEDS: FERROUS SULFATE 325 MG (65 MG ELEMENTAL IRON) TAB PO SCH ×2 (09:41→18:42)
[2016-08-07] MEDS: ENOXAPARIN SODIUM 40 MG/0.4 ML SYRINGE SQ SCH (09:47)
[2016-08-07 11:46] VITALS: BP 115/67; PULSE 90; RESP 18; TEMP 98.1; O2SAT 98
--- NOTE | 2016-08-07 14:10 | HHI.PR ---
Subjective Remarks pt reports pain under control. no cp or sob. no n,v. Objective Vital Signs Date Time Temp Pulse Resp B/P Pulse Ox O2 Delivery O2 Flow Rate FiO2 08/07/16 11:46 98.1 90 18 115/67 98 08/07/16 07:57 97.9 89 18 110/58 95 08/07/16 04:00 97.4 108 20 143/86 96 08/07/16 00:00 97.4 81 20 136/68 98 08/06/16 20:00 Room Air 08/06/16 20:00 97.4 87 20 116/58 96 08/06/16 16:00 97.8 75 18 119/59 94 I/O 08/06/16 08/06/16 08/06/16 08/07/16 08/07/16 08/07/16 07:00 15:00 23:00 07:00 15:00 23:00 Intake Total 480 ml 740 ml 480 ml 480 ml Output Total 1300 ml 800 ml 650 ml 1250 ml Balance -820 ml -60 ml -170 ml -770 ml Intake Oral 480 ml 740 ml 480 ml 480 ml IV Total 0 ml Output Urine Total 1300 ml 800 ml 650 ml 1250 ml # Bowel Movements 1 Objective Remarks GENERAL: patient lying in bed. sleeping, wakes for exam. Appears comfortable. Alert and oriented x3.. SKIN: Warm and dry. 08/03 sacral and decubitus ulcers reexamined. Perineal ulcer with slight improvement. No signs of infection. No surrounding erythema. No exudate. HEAD: Normocephalic. EYES: No scleral icterus. No injection or drainage. NECK: Supple, trachea midline. No JVD. CARDIOVASCULAR: Regular rate and rhythm without murmurs, gallops, or rubs. RESPIRATORY: Breath sounds equal bilaterally. No accessory muscle use. GASTROINTESTINAL: Abdomen soft, non-tender, nondistended. brown stool in colostomy bag.no changes. MUSCULOSKELETAL: No cyanosis, or edema. BACK: Nontender without obvious deformity. No CVA tenderness. A/P Assessment and Plan 08/07/16. Patient seen and examined. nursing wound care consult pending. Pain controlled.no changes 35-year-old male with PMH of Anxiety, Paraplegia, Neurogenic Bladder s/p Suprapubic Cath, Chronic UTI and Chronic Sacral Decubitus Ulcer who presented for evaluation of sacral wound //Stage IV Chronic Sacral Decubitus Ulcer, Present at time of admission. Recent admit 05/02-05/10 for same, s/p eval by ID and IV Abx, arrangements made for Home Health at time of d/c however pt reports difficulty obtaining care, currently homeless. Patient referred to ED by PCP for assistance with chronic wound management. Afebrile, no leukocytosis. Previous hospitalist discussed with ID and problem manager, wounds appear to be healing from previous with no signs of acute infection. Wound culture grew MRSA, likely colonized from superficial swab. No further antibiotics for sacral wounds per ID. Wound care nurse consulted, appreciate recommendations, orders for dressing changes placed. On oral Dilaudid at home for pain control, continue oral Dilaudid 2-4 mg as needed. 0.5 mg IV Dilaudid prn with wound changes as needed for pain. Continue recommendations per plastic surgery. -Add Toradol 30 mg IV every 6 per for breakthrough pain 06/22/16. Sacral wounds healing well. -patient is off IV Dilaudid. -transfer to [place] when bed available -reconsult wound care nursing pending. //E Coli/Proteus UTI: UA with evidence of possible UTI. H/o chronic UTI due to neurogenic bladder w/ indwelling cath. Previous urine culture with Escherichia coli and Proteus. Suprapubic cath changed 06/09. ID consulted, appreciated recommendations. Urine culture with E.coli, continue Augmentin, finish 14 days of treatment (stop date 06/23). -07/06patient says his urine has become more cloudy.urinalysis and urine culture pending. = e.Coli sensitive to ceftriaxone. Suprapubic catheter exchanged 07/10. -status post course of ceftriaxone with stop date of 07/19. Off all antibiotics at this time. //constipation. 07/09. Abdominal distention, decreased ostomy output. Abdominal film with increased stool. Cathartics ordered. -07/10start daily senna to prevent constipation on narcotics. = Continues with good stool output. Continue daily senna-docusate. //Neurogenic Bladder: Secondary to Paraplegia. Suprapubic Cath exchanged on . --suprapubic catheter needs to be exchanged be on 08/10. He can do this himself if he is outside hospital. Otherwise Dr. Wang service can do it. //Paraplegia: At baseline. Continue home medications. Trapeze setup. PT eval , recommends SNF, case management assisting. //DVT Prophylaxis: SCD/Teds/lovenox. Discharge Planning Patient does not have a place to stay, he also needs regular wound care management, wound is healing well now, needs rehabilitation for long-term placement and wound care.appreciate case management assistance. transfer to [facility] bed available. Lyndon Wilkes MD Aug 07, 2016 14:10
[2016-08-07 16:00] VITALS: BP 113/62; PULSE 62; RESP 18; TEMP 98.2; O2SAT 96
[2016-08-07] MEDS: SODIUM HYPOCHLORITE 0.125% 500 ML BTL TOPICAL SCH ×2 (18:00→21:35)
[2016-08-07] MEDS: ALPRAZolam 1 MG TAB PO PRN (21:35)
[2016-08-07 22:05] VITALS: BP 107/57; PULSE 86; RESP 16; TEMP 98; O2SAT 94
[2016-08-08 00:33] VITALS: BP 145/72; PULSE 88; RESP 16; TEMP 98.3; O2SAT 95
[2016-08-08] MEDS: oxyCODONE/ACETAMINOPHEN 7.5 MG/325 MG TAB PO PRN ×5 (02:43→22:09)
[2016-08-08 03:40] VITALS: BP 133/67; PULSE 88; RESP 16; TEMP 97.9; O2SAT 95
[2016-08-08 08:00] VITALS: BP 114/71; PULSE 89; RESP 16; TEMP 97.7; O2SAT 94
[2016-08-08] MEDS: GABAPENTIN 400 MG CAP PO SCH ×3 (08:45→17:02)
[2016-08-08] MEDS: FERROUS SULFATE 325 MG (65 MG ELEMENTAL IRON) TAB PO SCH ×2 (08:45→17:02)
[2016-08-08] MEDS: DOCUSATE SODIUM 50 MG/SENNA 8.6 MG TAB PO SCH (08:45)
[2016-08-08] MEDS: PANTOPRAZOLE SOD 40 MG DELAYED RELEASE TAB PO SCH (08:45)
[2016-08-08] MEDS: SODIUM HYPOCHLORITE 0.125% 500 ML BTL TOPICAL SCH ×2 (08:46→21:00)
[2016-08-08] MEDS: ENOXAPARIN SODIUM 40 MG/0.4 ML SYRINGE SQ SCH (08:46)
[2016-08-08] MEDS: LACTIC ACID (AMMONIUM LACTATE) 12% LOTION 225 GM BTL TOPICAL SCH ×2 (08:47→21:00)
[2016-08-08] MEDS: SODIUM CHLORIDE 0.9% FLUSH 5 ML FLUSH FLUSH SCH ×2 (08:48→21:00)
[2016-08-08 12:00] VITALS: BP 120/71; PULSE 84; RESP 16; TEMP 97.3; O2SAT 95
[2016-08-08 16:00] VITALS: BP 134/69; PULSE 79; RESP 18; TEMP 97.5; O2SAT 96
[2016-08-08 20:00] VITALS: BP 128/74; PULSE 94; RESP 20; TEMP 98.3; O2SAT 95
[2016-08-08] MEDS: ALPRAZolam 1 MG TAB PO PRN (22:09)
[2016-08-09] VITALS: BP 142/74; PULSE 93; RESP 20; TEMP 98.4; O2SAT 95
[2016-08-09] MEDS: oxyCODONE/ACETAMINOPHEN 7.5 MG/325 MG TAB PO PRN ×6 (02:11→22:33)
[2016-08-09 04:00] VITALS: BP 141/65; PULSE 89; RESP 20; TEMP 97.7; O2SAT 94
[2016-08-09] MEDS: HYDROmorphone HCL 2 MG TAB PO PRN (04:25)
[2016-08-09 08:00] VITALS: BP 113/57; PULSE 87; RESP 16; TEMP 98.3; O2SAT 94
[2016-08-09] MEDS: PANTOPRAZOLE SOD 40 MG DELAYED RELEASE TAB PO SCH (08:32)
[2016-08-09] MEDS: DOCUSATE SODIUM 50 MG/SENNA 8.6 MG TAB PO SCH (08:32)
[2016-08-09] MEDS: FERROUS SULFATE 325 MG (65 MG ELEMENTAL IRON) TAB PO SCH ×2 (08:32→18:08)
[2016-08-09] MEDS: ENOXAPARIN SODIUM 40 MG/0.4 ML SYRINGE SQ SCH (08:32)
[2016-08-09] MEDS: GABAPENTIN 400 MG CAP PO SCH ×3 (08:32→18:07)
[2016-08-09] MEDS: LACTIC ACID (AMMONIUM LACTATE) 12% LOTION 225 GM BTL TOPICAL SCH ×2 (08:33→21:00)
[2016-08-09] MEDS: SODIUM CHLORIDE 0.9% FLUSH 5 ML FLUSH FLUSH SCH ×2 (08:33→21:00)
[2016-08-09] MEDS: SODIUM HYPOCHLORITE 0.125% 500 ML BTL TOPICAL SCH ×2 (08:34→21:00)
[2016-08-09 12:00] VITALS: BP 131/65; PULSE 85; RESP 16; TEMP 97.6; O2SAT 95
[2016-08-09 16:00] VITALS: BP 115/56; PULSE 90; RESP 16; TEMP 98.1; O2SAT 95
--- NOTE | 2016-08-09 21:39 | HHI.PR ---
Subjective Remarks Late entry. Date of service 08/08/16. Patient's in the afternoon of 08/08. Patient says he feels well. He denies any chest pain recurrence of breath. No nausea or vomiting. Continued ostomy output. Pain is controlled. Objective Vital Signs Date Time Temp Pulse Resp B/P Pulse Ox O2 Delivery O2 Flow Rate FiO2 08/09/16 16:00 98.1 90 16 115/56 95 08/09/16 12:00 97.6 85 16 131/65 95 08/09/16 10:24 Room Air 08/09/16 08:00 98.3 87 16 113/57 94 08/09/16 04:00 97.7 89 20 141/65 94 08/09/16 00:00 98.4 93 20 142/74 95 I/O 08/08/16 08/08/16 08/08/16 08/09/16 08/09/16 08/09/16 07:00 15:00 23:00 07:00 15:00 23:00 Intake Total 480 ml 480 ml 280 ml 480 ml 720 ml Output Total 950 ml 600 ml 320 ml 1500 ml 800 ml Balance -470 ml -120 ml -40 ml -1020 ml -80 ml Intake Oral 480 ml 480 ml 280 ml 480 ml 720 ml Output Urine Total 950 ml 600 ml 320 ml 1500 ml 800 ml # Bowel Movements 0 1 Objective Remarks GENERAL: patient lying in bed. sleeping, wakes for exam. Appears comfortable. Alert and oriented x3..no appreciable change. SKIN: Warm and dry. 08/03 sacral and decubitus ulcers reexamined. Perineal ulcer with slight improvement. No signs of infection. No surrounding erythema. No exudate. HEAD: Normocephalic. EYES: No scleral icterus. No injection or drainage. NECK: Supple, trachea midline. No JVD. CARDIOVASCULAR: Regular rate and rhythm without murmurs, gallops, or rubs. RESPIRATORY: Breath sounds equal bilaterally. No accessory muscle use. GASTROINTESTINAL: Abdomen soft, non-tender, nondistended. brown stool in colostomy bag. MUSCULOSKELETAL: No cyanosis, or edema. BACK: Nontender without obvious deformity. No CVA tenderness. A/P Assessment and Plan 08/08/16. Patient seen and examined. pain controlled. 35-year-old male with PMH of Anxiety, Paraplegia, Neurogenic Bladder s/p Suprapubic Cath, Chronic UTI and Chronic Sacral Decubitus Ulcer who presented for evaluation of sacral wound //Stage IV Chronic Sacral Decubitus Ulcer, Present at time of admission. Recent admit 05/02-05/10 for same, s/p eval by ID and IV Abx, arrangements made for Home Health at time of d/c however pt reports difficulty obtaining care, currently homeless. Patient referred to ED by PCP for assistance with chronic wound management. Afebrile, no leukocytosis. Previous hospitalist discussed with ID and movie theater manager, wounds appear to be healing from previous with no signs of acute infection. Wound culture grew MRSA, likely colonized from superficial swab. No further antibiotics for sacral wounds per ID. Wound care nurse consulted, appreciate recommendations, orders for dressing changes placed. On oral Dilaudid at home for pain control, continue oral Dilaudid 2-4 mg as needed. 0.5 mg IV Dilaudid prn with wound changes as needed for pain. Continue recommendations per plastic surgery. -Add Toradol 30 mg IV every 6 per for breakthrough pain 06/22/16. Sacral wounds healing well. -patient is off IV Dilaudid. -transfer to [place] when bed available -reconsult wound care nursing pending. //E Coli/Proteus UTI: UA with evidence of possible UTI. H/o chronic UTI due to neurogenic bladder w/ indwelling cath. Previous urine culture with Escherichia coli and Proteus. Suprapubic cath changed 06/09. ID consulted, appreciated recommendations. Urine culture with E.coli, continue Augmentin, finish 14 days of treatment (stop date 06/23). -07/06patient says his urine has become more cloudy.urinalysis and urine culture pending. = e.Coli sensitive to ceftriaxone. Suprapubic catheter exchanged 07/10. -status post course of ceftriaxone with stop date of 07/19. Off all antibiotics at this time. //constipation. 07/09. Abdominal distention, decreased ostomy output. Abdominal film with increased stool. Cathartics ordered. -07/10start daily senna to prevent constipation on narcotics. = Continues with good stool output. Continue daily senna-docusate. //Neurogenic Bladder: Secondary to Paraplegia. Suprapubic Cath exchanged on . --suprapubic catheter needs to be exchanged be on 1/19. He can do this himself if he is outside hospital. Otherwise Dr. Wang service can do it. //Paraplegia: At baseline. Continue home medications. Trapeze setup. PT eval , recommends SNF, case management assisting. //DVT Prophylaxis: SCD/Teds/lovenox. Discharge Planning Patient does not have a place to stay, he also needs regular wound care management, wound is healing well now, needs rehabilitation for long-term placement and wound care.appreciate case management assistance. transfer to [facility] bed available. Lyndon Wilkes MD Aug 09, 2016 21:39
--- NOTE | 2016-08-09 21:47 | HHI.PR ---
Subjective Remarks patient seen today at around 3 PM. Says he is feeling well. Reports pain is under control. Objective Vital Signs Date Time Temp Pulse Resp B/P Pulse Ox O2 Delivery O2 Flow Rate FiO2 08/09/16 16:00 98.1 90 16 115/56 95 08/09/16 12:00 97.6 85 16 131/65 95 08/09/16 10:24 Room Air 08/09/16 08:00 98.3 87 16 113/57 94 08/09/16 04:00 97.7 89 20 141/65 94 08/09/16 00:00 98.4 93 20 142/74 95 I/O 08/08/16 08/08/16 08/08/16 08/09/16 08/09/16 08/09/16 07:00 15:00 23:00 07:00 15:00 23:00 Intake Total 480 ml 480 ml 280 ml 480 ml 720 ml Output Total 950 ml 600 ml 320 ml 1500 ml 800 ml Balance -470 ml -120 ml -40 ml -1020 ml -80 ml Intake Oral 480 ml 480 ml 280 ml 480 ml 720 ml Output Urine Total 950 ml 600 ml 320 ml 1500 ml 800 ml # Bowel Movements 0 1 Objective Remarks GENERAL: patient lying in bed. sleeping, wakes for exam. Appears comfortable. Alert and oriented x3.again, no change on exam. SKIN: Warm and dry. 08/03 sacral and decubitus ulcers reexamined. Perineal ulcer with slight improvement. No signs of infection. No surrounding erythema. No exudate. HEAD: Normocephalic. EYES: No scleral icterus. No injection or drainage. NECK: Supple, trachea midline. No JVD. CARDIOVASCULAR: Regular rate and rhythm without murmurs, gallops, or rubs. RESPIRATORY: Breath sounds equal bilaterally. No accessory muscle use. GASTROINTESTINAL: Abdomen soft, non-tender, nondistended. brown stool in colostomy bag. MUSCULOSKELETAL: No cyanosis, or edema. BACK: Nontender without obvious deformity. No CVA tenderness. A/P Assessment and Plan 08/09/16. Patient seen and examined. no acute changes. Pain is controlled. 35-year-old male with PMH of Anxiety, Paraplegia, Neurogenic Bladder s/p Suprapubic Cath, Chronic UTI and Chronic Sacral Decubitus Ulcer who presented for evaluation of sacral wound //Stage IV Chronic Sacral Decubitus Ulcer, Present at time of admission. Recent admit 05/02-05/10 for same, s/p eval by ID and IV Abx, arrangements made for Home Health at time of d/c however pt reports difficulty obtaining care, currently homeless. Patient referred to ED by PCP for assistance with chronic wound management. Afebrile, no leukocytosis. Previous hospitalist discussed with ID and forge press operator, wounds appear to be healing from previous with no signs of acute infection. Wound culture grew MRSA, likely colonized from superficial swab. No further antibiotics for sacral wounds per ID. Wound care nurse consulted, appreciate recommendations, orders for dressing changes placed. On oral Dilaudid at home for pain control, continue oral Dilaudid 2-4 mg as needed. 0.5 mg IV Dilaudid prn with wound changes as needed for pain. Continue recommendations per plastic surgery. -Add Toradol 30 mg IV every 6 per for breakthrough pain 06/22/16. Sacral wounds healing well. -patient is off IV Dilaudid. -transfer to [facility] when bed available -reconsult wound care nursing pending. //E Coli/Proteus UTI: UA with evidence of possible UTI. H/o chronic UTI due to neurogenic bladder w/ indwelling cath. Previous urine culture with Escherichia coli and Proteus. Suprapubic cath changed 06/09. ID consulted, appreciated recommendations. Urine culture with E.coli, continue Augmentin, finish 14 days of treatment (stop date 06/23). -07/06patient says his urine has become more cloudy.urinalysis and urine culture pending. = e.Coli sensitive to ceftriaxone. Suprapubic catheter exchanged 07/10. -status post course of ceftriaxone with stop date of 07/19. Off all antibiotics at this time. //constipation. 07/09. Abdominal distention, decreased ostomy output. Abdominal film with increased stool. Cathartics ordered. -07/10start daily senna to prevent constipation on narcotics. = Continues with good stool output. Continue daily senna-docusate. //Neurogenic Bladder: Secondary to Paraplegia. Suprapubic Cath exchanged on . --suprapubic catheter needs to be exchanged be on 08/10. He can do this himself if he is outside hospital. Otherwise Dr. Wang service can do it. //Paraplegia: At baseline. Continue home medications. Trapeze setup. PT eval , recommends SNF, case management assisting. //DVT Prophylaxis: SCD/Teds/lovenox. Discharge Planning Patient does not have a place to stay, he also needs regular wound care management, wound is healing well now, needs rehabilitation for long-term placement and wound care.appreciate case management assistance. transfer to [facility] bed available. Lyndon Wilkes MD Aug 09, 2016 21:47
[2016-08-09 22:28] VITALS: BP 127/66; PULSE 95; RESP 16; TEMP 97.6; O2SAT 95
[2016-08-09] MEDS: ALPRAZolam 1 MG TAB PO PRN (22:49)
[2016-08-10 00:34] VITALS: BP 141/76; PULSE 95; RESP 16; TEMP 97.3; O2SAT 93
[2016-08-10] MEDS: oxyCODONE/ACETAMINOPHEN 7.5 MG/325 MG TAB PO PRN ×4 (02:38→20:21)
[2016-08-10 03:30] VITALS: BP 118/59; PULSE 91; RESP 16; TEMP 97.7; O2SAT 95
[2016-08-10] MEDS: LACTIC ACID (AMMONIUM LACTATE) 12% LOTION 225 GM BTL TOPICAL SCH ×2 (09:00→20:22)
[2016-08-10] MEDS: FERROUS SULFATE 325 MG (65 MG ELEMENTAL IRON) TAB PO SCH ×2 (09:00→18:59)
[2016-08-10] MEDS: SODIUM CHLORIDE 0.9% FLUSH 5 ML FLUSH FLUSH SCH ×2 (09:00→20:14)
[2016-08-10] MEDS: SODIUM HYPOCHLORITE 0.125% 500 ML BTL TOPICAL SCH ×2 (09:00→20:22)
[2016-08-10] MEDS: ENOXAPARIN SODIUM 40 MG/0.4 ML SYRINGE SQ SCH (10:00)
[2016-08-10] MEDS: PANTOPRAZOLE SOD 40 MG DELAYED RELEASE TAB PO SCH (10:01)
[2016-08-10] MEDS: GABAPENTIN 400 MG CAP PO SCH ×3 (10:01→18:59)
[2016-08-10] MEDS: DOCUSATE SODIUM 50 MG/SENNA 8.6 MG TAB PO SCH (10:01)
[2016-08-10 12:02] VITALS: BP 116/59; PULSE 87; RESP 20; TEMP 97.9; O2SAT 94
--- NOTE | 2016-08-10 12:59 | HHI.PR ---
Subjective Remarks Follow up for UTI, sacral decubitus ulcer. Patient is doing well. No fever, chills. Nurse will change suprapubic catheter. Objective Vitals Vital Signs Date Time Temp Pulse Resp B/P Pulse Ox O2 Delivery O2 Flow Rate FiO2 08/10/16 12:02 97.9 87 20 116/59 94 08/10/16 03:30 97.7 91 16 118/59 95 08/10/16 00:34 97.3 95 16 141/76 93 08/09/16 22:28 97.6 95 16 127/66 95 08/09/16 19:30 Room Air 08/09/16 16:00 98.1 90 16 115/56 95 I/O 08/09/16 08/09/16 08/09/16 08/10/16 08/10/16 08/10/16 07:00 15:00 23:00 07:00 15:00 23:00 Intake Total 480 ml 720 ml 840 ml 480 ml Output Total 1500 ml 800 ml 600 ml 700 ml Balance -1020 ml -80 ml 240 ml -220 ml Intake Oral 480 ml 720 ml 840 ml 480 ml Output Urine Total 1500 ml 800 ml 600 ml 700 ml # Bowel Movements 0 0 Imaging Last Impressions Abdomen X-Ray 07/09/16 1518 Signed Impressions: Service Date/Time: Saturday, July 09, 2016 17:06 - CONCLUSION: 1. Moderate amount of stool. 2. No dilated loops of bowel or pneumoperitoneum. 3. Bilateral hip dysplasia. Wes Callejas Jr., MD Chest X-Ray 06/08/16 1341 Signed Impressions: Service Date/Time: May 14:46 - CONCLUSION: No acute cardiopulmonary abnormality is identified. Luis Felipe Guerra MD Abdomen/Pelvis CT 06/08/16 1341 Signed Impressions: Service Date/Time: May 18:40 - CONCLUSION: 1. The balloon portion of the suprapubic catheter is inside the prosthetic urethra. 2. Probable hepatic hemangioma. Ryanne Maya MD Objective Remarks GENERAL: Alert, NAD. SKIN: Warm and dry. HEAD: Normocephalic. EYES: No scleral icterus. No injection or drainage. NECK: Supple, trachea midline. No JVD or lymphadenopathy. CARDIOVASCULAR: Regular rate and rhythm without murmurs, gallops, or rubs. RESPIRATORY: Breath sounds equal bilaterally. No accessory muscle use. GASTROINTESTINAL: Abdomen soft, non-tender, nondistended. MUSCULOSKELETAL: No cyanosis, or edema. BACK: Nontender without obvious deformity. No CVA tenderness. Procedures none A/P Problem List: (1) Sacral decubitus ulcer ICD Code: L89.159 Status: Chronic (2) Urinary tract infection due to Proteus ICD Code: N39.0 Status: Resolved (3) Constipation ICD Code: K59.00 Status: Resolved (4) Paraplegia ICD Code: G82.20 Status: Chronic (5) Neurogenic bladder ICD Code: N31.9 Status: Chronic Assessment and Plan Mr. Byrd is a 35-year-old male with PMH of Anxiety, Paraplegia, Neurogenic Bladder s/p Suprapubic Cath, Chronic UTI and Chronic Sacral Decubitus Ulcer who presented for evaluation of sacral wound. - Stage IV Chronic Sacral Decubitus Ulcer, Present at time of admission. Recent admit 05/02-05/10 for same, s/p eval by ID and IV Abx, arrangements made for Home Health at time of d/c however pt reports difficulty obtaining care, currently homeless. Patient referred to ED by PCP for assistance with chronic wound management. Afebrile, no leukocytosis. Previous hospitalist discussed with ID and complaint evaluation officer, wounds appear to be healing from previous with no signs of acute infection. Wound culture grew MRSA, likely colonized from superficial swab. No further antibiotics for sacral wounds per ID. Wound care nurse consulted, appreciate recommendations, orders for dressing changes placed. On oral Dilaudid at home for pain control, continue oral Dilaudid 2-4 mg as needed. 0.5 mg IV Dilaudid prn with wound changes as needed for pain. Continue recommendations per plastic surgery. -Add Toradol 30 mg IV every 6 per for breakthrough pain 06/22/16. Sacral wounds healing well. -patient is off IV Dilaudid. -transfer to [place] when bed available -reconsult wound care nursing pending. - E Coli/Proteus UTI: UA with evidence of possible UTI. H/o chronic UTI due to neurogenic bladder w/ indwelling cath. Previous urine culture with Escherichia coli and Proteus. Suprapubic cath changed 06/09. ID consulted, appreciated recommendations. Urine culture with E.coli, continue Augmentin, finish 14 days of treatment (stop date 06/23). -07/06patient says his urine has become more cloudy.urinalysis and urine culture pending. = e.Coli sensitive to ceftriaxone. Suprapubic catheter exchanged 07/10. -status post course of ceftriaxone with stop date of 07/19. Off all antibiotics at this time. - constipation. 07/09. Abdominal distention, decreased ostomy output. Abdominal film with increased stool. Cathartics ordered. -07/10start daily senna to prevent constipation on narcotics. - Continues with good stool output. Continue daily senna-docusate. - Neurogenic Bladder: Secondary to Paraplegia. Suprapubic Cath exchanged on . --suprapubic catheter needs to be exchanged be on 08/10. He can do this himself if he is outside hospital. Otherwise Dr. Wang service can do it. - Paraplegia: At baseline. Continue home medications. Trapeze setup. PT evjessica , recommends SNF, case management assisting. - DVT Prophylaxis: SCD/Teds/lovenox. Will do suprapubic catheter change today. Patient will then be transferred to [facility]. Problem Qualifiers (1) Sacral decubitus ulcer: Qualified Code: L89.154 - Decubitus ulcer of sacral region, stage 4 Marley Montalvo DO Aug 10, 2016 12:59
[2016-08-10 18:22] VITALS: BP 130/80; PULSE 90; RESP 20; TEMP 97.2; O2SAT 96
[2016-08-10 20:00] VITALS: BP 145/87; PULSE 89; RESP 20; TEMP 98.3; O2SAT 94
[2016-08-10] MEDS: ALPRAZolam 1 MG TAB PO PRN (20:20)
[2016-08-11] MEDS: oxyCODONE/ACETAMINOPHEN 7.5 MG/325 MG TAB PO PRN ×4 (01:56→21:46)
[2016-08-11] MEDS ORDERED: ONDANSETRON ODT 4 MG TAB PO PRN (07:15)
[2016-08-11 08:00] VITALS: BP 130/96; PULSE 87; RESP 18; TEMP 97.4; O2SAT 95
[2016-08-11] MEDS: DOCUSATE SODIUM 50 MG/SENNA 8.6 MG TAB PO SCH (09:46)
[2016-08-11] MEDS: ENOXAPARIN SODIUM 40 MG/0.4 ML SYRINGE SQ SCH (09:46)
[2016-08-11] MEDS: GABAPENTIN 400 MG CAP PO SCH ×3 (09:46→18:01)
[2016-08-11] MEDS: FERROUS SULFATE 325 MG (65 MG ELEMENTAL IRON) TAB PO SCH ×2 (09:47→18:01)
[2016-08-11] MEDS: PANTOPRAZOLE SOD 40 MG DELAYED RELEASE TAB PO SCH (09:47)
[2016-08-11] MEDS: LACTIC ACID (AMMONIUM LACTATE) 12% LOTION 225 GM BTL TOPICAL SCH ×2 (09:48→21:38)
[2016-08-11] MEDS: SODIUM HYPOCHLORITE 0.125% 500 ML BTL TOPICAL SCH ×2 (09:48→21:00)
--- NOTE | 2016-08-11 15:31 | HHI.PR ---
Subjective Remarks 35-year-old male who is seen and examined today. Patient was originally presented to hospital on 06/08/16 in which the patient was evaluated for decubitus ulcer in emergency department sacral wound. At that time it was recommended that the patient be admitted with infectious disease consultation due to patient have a rather complex medical history of paraplegia, neurogenic bladder, decubitus ulcers, urinary tract infection. Patient was treated with local antibiotics which have been discontinued at this time. Wound care, plastic surgery was following the patient for his wounds at this point only wound care is following. Wounds did appear to be healing quite nicely. Patient does not have a discharge plan. Patient will need to be discharged somewhere with continued care, home health care. At the present time that is unavailable to the patient. Because of that reason patient was transferred to [facility] for continued management and care. Objective Vitals Vital Signs Date Time Temp Pulse Resp B/P Pulse Ox O2 Delivery O2 Flow Rate FiO2 08/11/16 10:49 16 08/11/16 08:00 97.4 87 18 130/96 95 08/10/16 20:00 98.3 89 20 145/87 94 08/10/16 18:22 97.2 90 20 130/80 96 I/O 08/10/16 08/10/16 08/10/16 08/11/16 08/11/16 08/11/16 07:00 15:00 23:00 07:00 15:00 23:00 Intake Total 480 ml 640 ml 860 ml Output Total 700 ml 600 ml 850 ml Balance -220 ml 40 ml 10 ml Intake Oral 480 ml 640 ml 860 ml Output Urine Total 700 ml 600 ml 850 ml # Bowel Movements 0 1 0 Objective Remarks GENERAL: Well-developed, well-nourished, in no acute distress. alert and orientated HEENT: Head is normocephalic without any lesions or masses noted. Facial features are symmetric. Eyes: Extraocular muscles are intact. Conjunctivae were clear. NECK: Supple without any masses. Trachea midline no deviation. No JVD, CARDIAC: Regular rhythm, regular rate. S1/S2 are heard. No murmurs gallops or rubs. LUNGS: Clear to auscultation bilaterally. No wheeze, rhonchi or rales. No use of accessory muscles on inspiration or expiration. ABDOMEN: Soft, nontender. Nondistended. Bowel sounds heard in all 4 quadrants. No organomegaly or masses. Negative rebound, negative guarding. Suprapubic catheter in place without any signs of infection. Colostomy noted EXTREMITIES: No edema, pulses are equal bilaterally. No cyanosis or clubbing NEUROLOGY: Mood and affect appear appropriate. Cranial nerves II through XII grossly intact. SKIN: Right sided hip has nice clean area no signs of any wound or drainage at this time. Left hip shows deep approximately 2 cm opening with clean bases and good signs of healing. But I asked has healing area without any signs of exudates. There is a wound and open ulceration noted in the cranium at the base of the scrotum with clean edges and no signs of infection. Procedures none Urinary Catheter: Yes (suprapubic catheter) Assessment to: Continue Vascular Central Line Catheter: No A/P Assessment and Plan Mr. Byrd is a 35-year-old male with PMH of Anxiety, Paraplegia, Neurogenic Bladder s/p Suprapubic Cath, Chronic UTI and Chronic Sacral Decubitus Ulcer who presented for evaluation of sacral wound. - Stage IV Chronic Sacral Decubitus Ulcer, Present at time of admission. Recent admit 05/02-05/10 for same, s/p eval by ID and IV Abx, arrangements made for Home Health at time of d/c however pt reports difficulty obtaining care, currently homeless. Patient referred to ED by PCP for assistance with chronic wound management. Afebrile, no leukocytosis. Previous hospitalist discussed with ID and upper trimmer, wounds appear to be healing from previous with no signs of acute infection. Wound culture grew MRSA, likely colonized from superficial swab. No further antibiotics for sacral wounds per ID. Wound care nurse consulted, appreciate recommendations, orders for dressing changes placed. On oral Dilaudid at home for pain control, continue oral Dilaudid 2-4 mg as needed. 0.5 mg IV Dilaudid prn with wound changes as needed for pain. Continue recommendations per plastic surgery. Sacral wounds healing well. - E Coli/Proteus UTI: UA with evidence of possible UTI. H/o chronic UTI due to neurogenic bladder w/ indwelling cath. Previous urine culture with Escherichia coli and Proteus. Suprapubic cath changed 06/09. ID consulted, appreciated recommendations. Urine culture with E.coli, continue Augmentin, finish 14 days of treatment (stop date 06/23). -12/15patient says his urine has become more cloudy.urinalysis and urine culture pending. -e.Coli sensitive to ceftriaxone. -status post course of ceftriaxone with stop date of 07/19. Off all antibiotics at this time. - constipation. 07/09. Abdominal distention, decreased ostomy output. Abdominal film with increased stool. Cathartics ordered. -07/10art daily senna to prevent constipation on narcotics. - Continues with good stool output. Continue daily senna-docusate. - Neurogenic Bladder: Secondary to Paraplegia. -Suprapubic catheter changed 08/10/16 - Paraplegia: At baseline. Continue home medications. Trapeze setup. PT eval , recommends SNF, case management assisting. - DVT Prophylaxis: SCD/Teds/lovenox. Discharge Planning Discharge planning per case management Sergei Larose Aug 11, 2016 15:31
[2016-08-11 20:00] VITALS: BP 135/80; PULSE 79; RESP 16; TEMP 97.5; O2SAT 96
[2016-08-12] MEDS: oxyCODONE/ACETAMINOPHEN 7.5 MG/325 MG TAB PO PRN ×4 (02:30→17:22)
[2016-08-12 08:00] VITALS: BP 138/84; PULSE 98; RESP 20; TEMP 97.1; O2SAT 97
[2016-08-12] MEDS: FERROUS SULFATE 325 MG (65 MG ELEMENTAL IRON) TAB PO SCH ×2 (09:51→17:21)
[2016-08-12] MEDS: DOCUSATE SODIUM 50 MG/SENNA 8.6 MG TAB PO SCH (09:52)
[2016-08-12] MEDS: ENOXAPARIN SODIUM 40 MG/0.4 ML SYRINGE SQ SCH (09:52)
[2016-08-12] MEDS: PANTOPRAZOLE SOD 40 MG DELAYED RELEASE TAB PO SCH (09:52)
[2016-08-12] MEDS: GABAPENTIN 400 MG CAP PO SCH ×3 (09:52→17:21)
[2016-08-12] MEDS: LACTIC ACID (AMMONIUM LACTATE) 12% LOTION 225 GM BTL TOPICAL SCH ×2 (09:52→21:02)
[2016-08-12] MEDS: SODIUM HYPOCHLORITE 0.125% 500 ML BTL TOPICAL SCH ×2 (09:53→21:01)
--- NOTE | 2016-08-12 10:24 | HHI.PR ---
Subjective Remarks Patient seen and examined today. Patient denies any new complaints. No change in clinical status. Awaiting case management for discharge planning. Objective Vitals Vital Signs Date Time Temp Pulse Resp B/P Pulse Ox O2 Delivery O2 Flow Rate FiO2 08/12/16 08:00 97.1 98 20 138/84 97 08/12/16 07:49 16 08/11/16 20:00 97.5 79 16 135/80 96 I/O 08/11/16 08/11/16 08/11/16 08/12/16 08/12/16 08/12/16 07:00 15:00 23:00 07:00 15:00 23:00 Intake Total 860 ml 1200 ml 960 ml Output Total 850 ml 650 ml 650 ml 3500 ml Balance 10 ml 550 ml 310 ml -3500 ml Intake Oral 860 ml 1200 ml 960 ml Output Urine Total 850 ml 650 ml 650 ml 3500 ml # Bowel Movements 0 0 1 Objective Remarks GENERAL: Well-developed, well-nourished, in no acute distress. alert and orientated HEENT: Head is normocephalic without any lesions or masses noted. Facial features are symmetric. Eyes: Extraocular muscles are intact. Conjunctivae were clear. NECK: Supple without any masses. Trachea midline no deviation. No JVD, CARDIAC: Regular rhythm, regular rate. S1/S2 are heard. No murmurs gallops or rubs. LUNGS: Clear to auscultation bilaterally. No wheeze, rhonchi or rales. No use of accessory muscles on inspiration or expiration. ABDOMEN: Soft, nontender. Nondistended. Bowel sounds heard in all 4 quadrants. No organomegaly or masses. Negative rebound, negative guarding. Suprapubic catheter in place without any signs of infection. Colostomy noted EXTREMITIES: No edema, pulses are equal bilaterally. No cyanosis or clubbing NEUROLOGY: Mood and affect appear appropriate. Cranial nerves II through XII grossly intact. SKIN: Right sided hip has nice clean area no signs of any wound or drainage at this time. Left hip shows deep approximately 2 cm opening with clean bases and good signs of healing. But I asked has healing area without any signs of exudates. There is a wound and open ulceration noted in the cranium at the base of the scrotum with clean edges and no signs of infection. Procedures none Urinary Catheter: Yes (suprapubic catheter) Assessment to: Continue Peterson insert reason: Stage III/IV Press Ulcer Vascular Central Line Catheter: No A/P Assessment and Plan Mr. Byrd is a 35-year-old male with PMH of Anxiety, Paraplegia, Neurogenic Bladder s/p Suprapubic Cath, Chronic UTI and Chronic Sacral Decubitus Ulcer who presented for evaluation of sacral wound. - Stage IV Chronic Sacral Decubitus Ulcer, Present at time of admission. Recent admit 05/02-05/10 for same, s/p eval by ID and IV Abx, arrangements made for Home Health at time of d/c however pt reports difficulty obtaining care, currently homeless. Patient referred to ED by PCP for assistance with chronic wound management. Afebrile, no leukocytosis. Previous hospitalist discussed with ID and tobacco weigher, wounds appear to be healing from previous with no signs of acute infection. Wound culture grew MRSA, likely colonized from superficial swab. No further antibiotics for sacral wounds per ID. Wound care nurse consulted, appreciate recommendations, orders for dressing changes placed. On oral Dilaudid at home for pain control, continue oral Dilaudid 2-4 mg as needed. 0.5 mg IV Dilaudid prn with wound changes as needed for pain. Continue recommendations per plastic surgery. Sacral wounds healing well. - E Coli/Proteus UTI: UA with evidence of possible UTI. H/o chronic UTI due to neurogenic bladder w/ indwelling cath. Previous urine culture with Escherichia coli and Proteus. Suprapubic cath changed 06/09. ID consulted, appreciated recommendations. Urine culture with E.coli, continue Augmentin, finish 14 days of treatment (stop date 06/23). -07/06patient says his urine has become more cloudy.urinalysis and urine culture pending. -e.Coli sensitive to ceftriaxone. -status post course of ceftriaxone with stop date of 07/19. Off all antibiotics at this time. - constipation. 07/09. Abdominal distention, decreased ostomy output. Abdominal film with increased stool. Cathartics ordered. -07/10art daily senna to prevent constipation on narcotics. - Continues with good stool output. Continue daily senna-docusate. - Neurogenic Bladder: Secondary to Paraplegia. -Suprapubic catheter changed 08/10/16 - Paraplegia: At baseline. Continue home medications. Trapeze setup. PT eval , recommends SNF, case management assisting. - DVT Prophylaxis: SCD/Teds/lovenox. Discharge Planning Discharge planning per case management Sergei Larose Aug 12, 2016 10:24
[2016-08-12 20:00] VITALS: BP 143/81; PULSE 91; RESP 16; TEMP 97.4; O2SAT 95
[2016-08-12] MEDS: ALPRAZolam 1 MG TAB PO PRN (21:10)
[2016-08-13] MEDS: oxyCODONE/ACETAMINOPHEN 7.5 MG/325 MG TAB PO PRN ×5 (00:09→21:13)
[2016-08-13 08:00] VITALS: BP 113/70; PULSE 92; RESP 18; TEMP 96.7; O2SAT 96
[2016-08-13] MEDS: FERROUS SULFATE 325 MG (65 MG ELEMENTAL IRON) TAB PO SCH ×2 (09:47→18:02)
[2016-08-13] MEDS: DOCUSATE SODIUM 50 MG/SENNA 8.6 MG TAB PO SCH (09:47)
[2016-08-13] MEDS: PANTOPRAZOLE SOD 40 MG DELAYED RELEASE TAB PO SCH (09:47)
[2016-08-13] MEDS: GABAPENTIN 400 MG CAP PO SCH ×3 (09:47→18:02)
[2016-08-13] MEDS: SODIUM HYPOCHLORITE 0.125% 500 ML BTL TOPICAL SCH ×2 (09:48→21:00)
[2016-08-13] MEDS: LACTIC ACID (AMMONIUM LACTATE) 12% LOTION 225 GM BTL TOPICAL SCH ×2 (09:48→21:00)
[2016-08-13] MEDS: ENOXAPARIN SODIUM 40 MG/0.4 ML SYRINGE SQ SCH (10:16)
--- NOTE | 2016-08-13 14:42 | HHI.PR ---
Subjective Remarks Patient seen and examined today. Patient denies any new complaints. No change in clinical status. Awaiting case management for discharge planning Objective Vitals Vital Signs Date Time Temp Pulse Resp B/P Pulse Ox O2 Delivery O2 Flow Rate FiO2 08/13/16 12:24 18 08/13/16 08:00 96.7 92 18 113/70 96 08/12/16 20:00 97.4 91 16 143/81 95 I/O 08/12/16 08/12/16 08/12/16 08/13/16 08/13/16 08/13/16 07:00 15:00 23:00 07:00 15:00 23:00 Intake Total 600 ml 480 ml 480 ml Output Total 3500 ml 1700 ml 850 ml 600 ml Balance -3500 ml -1100 ml -370 ml -120 ml Intake Oral 600 ml 480 ml 480 ml Output Urine Total 3500 ml 1700 ml 850 ml 600 ml Stool Total 0 ml 0 ml # Bowel Movements 1 1 0 Objective Remarks GENERAL: Well-developed, well-nourished, in no acute distress. alert and orientated HEENT: Head is normocephalic without any lesions or masses noted. Facial features are symmetric. Eyes: Extraocular muscles are intact. Conjunctivae were clear. NECK: Supple without any masses. Trachea midline no deviation. No JVD, CARDIAC: Regular rhythm, regular rate. S1/S2 are heard. No murmurs gallops or rubs. LUNGS: Clear to auscultation bilaterally. No wheeze, rhonchi or rales. No use of accessory muscles on inspiration or expiration. ABDOMEN: Soft, nontender. Nondistended. Bowel sounds heard in all 4 quadrants. No organomegaly or masses. Negative rebound, negative guarding. Suprapubic catheter in place without any signs of infection. Colostomy noted EXTREMITIES: No edema, pulses are equal bilaterally. No cyanosis or clubbing NEUROLOGY: Mood and affect appear appropriate. Cranial nerves II through XII grossly intact. SKIN: Right sided hip has nice clean area no signs of any wound or drainage at this time. Left hip shows deep approximately 2 cm opening with clean bases and good signs of healing. But I asked has healing area without any signs of exudates. There is a wound and open ulceration noted in the cranium at the base of the scrotum with clean edges and no signs of infection. Procedures none Urinary Catheter: Yes (suprapubic catheter) Assessment to: Continue Date of Insertion: Aug 10, 2016 Vascular Central Line Catheter: No A/P Assessment and Plan Mr. Byrd is a 35-year-old male with PMH of Anxiety, Paraplegia, Neurogenic Bladder s/p Suprapubic Cath, Chronic UTI and Chronic Sacral Decubitus Ulcer who presented for evaluation of sacral wound. - Stage IV Chronic Sacral Decubitus Ulcer, Present at time of admission. Recent admit 05/02-05/10 for same, s/p eval by ID and IV Abx, arrangements made for Home Health at time of d/c however pt reports difficulty obtaining care , currently homeless. Patient referred to ED by PCP for assistance with chronic wound management. Wound culture grew MRSA, likely colonized from superficial swab. No further antibiotics for sacral wounds per ID. Wound care nurse consulted, appreciate recommendations, orders for dressing changes placed. Continue recommendations per plastic surgery. Pain control On oral Dilaudid at home for pain control, continue oral Dilaudid 2-4 mg as needed. E Coli/Proteus complicated urinary tract infection: Suprapubic catheter was changed at that time and being changed on a monthly basis Patient with multiple urinary tract infections during his stay in the hospital , infectious disease was following to this day. No longer receiving antibiotics at this time. Continue monitor closely for signs of infection Bowel regimen with history of constipation. Monitor ostomy output. Whitney-Colace daily, Dulcolax as needed Neurogenic Bladder: Secondary to Paraplegia. Suprapubic catheter changed 08/10/16 Paraplegia: At baseline. Continue home medications. Awaiting Trapeze setup since transfer from [facility] hospital. PT eyal, recommends SNF, case management assisting. DVT Prophylaxis: SCD/Teds/lovenox. Discharge Planning Discharge planning per case management Sergei Larose Aug 13, 2016 14:42
[2016-08-13 20:00] VITALS: BP 131/80; PULSE 87; RESP 18; TEMP 97.3; O2SAT 94
[2016-08-13] MEDS: ALPRAZolam 1 MG TAB PO PRN (21:13)
[2016-08-14] MEDS: oxyCODONE/ACETAMINOPHEN 7.5 MG/325 MG TAB PO PRN ×5 (00:34→20:56)
[2016-08-14 07:15] VITALS: BP 148/83; RESP 20; TEMP 95.8; O2SAT 95
[2016-08-14] MEDS: SODIUM HYPOCHLORITE 0.125% 500 ML BTL TOPICAL SCH ×2 (09:50→21:00)
[2016-08-14] MEDS: GABAPENTIN 400 MG CAP PO SCH ×3 (09:50→17:37)
[2016-08-14] MEDS: PANTOPRAZOLE SOD 40 MG DELAYED RELEASE TAB PO SCH (09:50)
[2016-08-14] MEDS: DOCUSATE SODIUM 50 MG/SENNA 8.6 MG TAB PO SCH (09:50)
[2016-08-14] MEDS: FERROUS SULFATE 325 MG (65 MG ELEMENTAL IRON) TAB PO SCH ×2 (09:50→17:37)
[2016-08-14] MEDS: LACTIC ACID (AMMONIUM LACTATE) 12% LOTION 225 GM BTL TOPICAL SCH ×2 (09:50→20:59)
[2016-08-14] MEDS: ENOXAPARIN SODIUM 40 MG/0.4 ML SYRINGE SQ SCH (10:13)
--- NOTE | 2016-08-14 12:03 | HHI.PR ---
Subjective Remarks Patient seen and examined today. Patient has any new complaints. No change in clinical status. Awaiting case management for discharge planning Objective Vitals Vital Signs Date Time Temp Pulse Resp B/P Pulse Ox O2 Delivery O2 Flow Rate FiO2 08/14/16 11:14 18 08/14/16 07:15 95.8 20 148/83 95 08/13/16 20:00 97.3 87 18 131/80 94 I/O 08/13/16 08/13/16 08/13/16 08/14/16 08/14/16 08/14/16 07:00 15:00 23:00 07:00 15:00 23:00 Intake Total 480 ml 480 ml 480 ml 720 ml Output Total 600 ml 600 ml 1000 ml 750 ml Balance -120 ml -120 ml -520 ml -30 ml Intake Oral 480 ml 480 ml 480 ml 720 ml Output Urine Total 600 ml 600 ml 1000 ml 750 ml Stool Total 0 ml 0 ml # Bowel Movements 0 0 Objective Remarks GENERAL: Well-developed, well-nourished, in no acute distress. alert and orientated HEENT: Head is normocephalic without any lesions or masses noted. Facial features are symmetric. Eyes: Extraocular muscles are intact. Conjunctivae were clear. NECK: Supple without any masses. Trachea midline no deviation. No JVD, CARDIAC: Regular rhythm, regular rate. S1/S2 are heard. No murmurs gallops or rubs. LUNGS: Clear to auscultation bilaterally. No wheeze, rhonchi or rales. No use of accessory muscles on inspiration or expiration. ABDOMEN: Soft, nontender. Nondistended. Bowel sounds heard in all 4 quadrants. No organomegaly or masses. Negative rebound, negative guarding. Suprapubic catheter in place without any signs of infection. Colostomy noted EXTREMITIES: No edema, pulses are equal bilaterally. No cyanosis or clubbing NEUROLOGY: Mood and affect appear appropriate. Cranial nerves II through XII grossly intact. SKIN: Right sided hip has nice clean area no signs of any wound or drainage at this time. Left hip shows deep approximately 2 cm opening with clean bases and good signs of healing. But I asked has healing area without any signs of exudates. There is a wound and open ulceration noted in the cranium at the base of the scrotum with clean edges and no signs of infection. Procedures none Urinary Catheter: Yes (suprapubic catheter) Assessment to: Continue Peterson insert reason: Stage III/IV Press Ulcer Date of Insertion: Aug 10, 2016 Vascular Central Line Catheter: No A/P Assessment and Plan Mr. Byrd is a 35-year-old male with PMH of Anxiety, Paraplegia, Neurogenic Bladder s/p Suprapubic Cath, Chronic UTI and Chronic Sacral Decubitus Ulcer who presented for evaluation of sacral wound. Stage IV Chronic Sacral Decubitus Ulcer, Present at time of admission. Recent admit 05/02-05/10 for same, s/p eval by ID and IV Abx, arrangements made for Home Health at time of d/c however pt reports difficulty obtaining care , currently homeless. Patient referred to ED by PCP for assistance with chronic wound management. Wound culture grew MRSA, likely colonized from superficial swab. No further antibiotics for sacral wounds per ID. Wound care nurse consulted, appreciate recommendations, orders for dressing changes placed. Continue recommendations per plastic surgery. Pain control On oral Dilaudid at home for pain control, continue oral Dilaudid 2-4 mg as needed. E Coli/Proteus complicated urinary tract infection: Suprapubic catheter was changed at that time and being changed on a monthly basis Patient with multiple urinary tract infections during his stay in the hospital , infectious disease was following to this day. No longer receiving antibiotics at this time. Continue monitor closely for signs of infection Bowel regimen with history of constipation. Monitor ostomy output. Whitney-Colace daily, Dulcolax as needed Neurogenic Bladder: Secondary to Paraplegia. Suprapubic catheter changed 08/10/16 Paraplegia: At baseline. Continue home medications. Awaiting Trapeze setup since transfer from [facility] hospital. PT eyal, recommends SNF, case management assisting. --Consulted OT to eval and make recommendations for wheelchair DVT Prophylaxis: SCD/Teds/lovenox. Discharge Planning Discharge planning per case management Sergei Larose Aug 14, 2016 12:03
[2016-08-14 20:00] VITALS: BP 146/78; PULSE 95; RESP 18; TEMP 98.3; O2SAT 94
[2016-08-14] MEDS: ALPRAZolam 1 MG TAB PO PRN (20:56)
[2016-08-15 08:00] VITALS: BP 131/82; PULSE 73; RESP 18; TEMP 96.5; O2SAT 94
[2016-08-15] MEDS: ENOXAPARIN SODIUM 40 MG/0.4 ML SYRINGE SQ SCH (10:07)
[2016-08-15] MEDS: PANTOPRAZOLE SOD 40 MG DELAYED RELEASE TAB PO SCH (10:08)
[2016-08-15] MEDS: FERROUS SULFATE 325 MG (65 MG ELEMENTAL IRON) TAB PO SCH ×2 (10:08→17:44)
[2016-08-15] MEDS: GABAPENTIN 400 MG CAP PO SCH ×3 (10:08→17:44)
[2016-08-15] MEDS: ALPRAZolam 1 MG TAB PO PRN ×2 (10:08→16:24)
[2016-08-15] MEDS: DOCUSATE SODIUM 50 MG/SENNA 8.6 MG TAB PO SCH (10:08)
[2016-08-15] MEDS: oxyCODONE/ACETAMINOPHEN 7.5 MG/325 MG TAB PO PRN ×4 (10:08→22:21)
[2016-08-15] MEDS: LACTIC ACID (AMMONIUM LACTATE) 12% LOTION 225 GM BTL TOPICAL SCH ×2 (10:09→21:35)
[2016-08-15] MEDS: SODIUM HYPOCHLORITE 0.125% 500 ML BTL TOPICAL SCH ×2 (10:09→21:34)
--- NOTE | 2016-08-15 16:56 | HHI.PR ---
Subjective Remarks Patient evaluated this morning. No acute complaints. Objective Vitals Vital Signs Date Time Temp Pulse Resp B/P Pulse Ox O2 Delivery O2 Flow Rate FiO2 08/15/16 16:24 18 08/15/16 11:11 18 08/15/16 08:00 96.5 73 18 131/82 94 08/14/16 20:00 98.3 95 18 146/78 94 I/O 08/14/16 08/14/16 08/14/16 08/15/16 08/15/16 08/15/16 07:00 15:00 23:00 07:00 15:00 23:00 Intake Total 720 ml 1000 ml 0 ml 0 ml 700 ml Output Total 750 ml 1100 ml 325 ml Balance -30 ml 1000 ml -1100 ml -325 ml 700 ml Intake Oral 720 ml 1000 ml 700 ml IV Total 0 ml 0 ml Output Urine Total 750 ml 1100 ml 325 ml # Bowel Movements 0 1 Objective Remarks GENERAL: Well-nourished patient in no apparent distress. SKIN: Warm and dry. Ulceration noted over the right great toe. CARDIOVASCULAR: Regular rate and rhythm. RESPIRATORY: No accessory muscle use. Clear to auscultation. Breath sounds equal bilaterally. GASTROINTESTINAL: Abdomen soft, non-tender, nondistended. NEUROLOGICAL: Awake and alert. Normal speech. PSYCHIATRIC: Appropriate mood and affect; insight and judgment normal. Procedures none Urinary Catheter: Yes Assessment to: Continue Peterson insert reason: Stage III/IV Press Ulcer Date of Insertion: Aug 10, 2016 Vascular Central Line Catheter: No A/P Problem List: (1) Sacral decubitus ulcer ICD Code: L89.159 Status: Chronic (2) Urinary tract infection due to Proteus ICD Code: N39.0 Status: Resolved (3) Constipation ICD Code: K59.00 Status: Resolved (4) Paraplegia ICD Code: G82.20 Status: Chronic (5) Neurogenic bladder ICD Code: N31.9 Status: Chronic Assessment and Plan Mr. Byrd is a 35-year-old male with PMH of Anxiety, Paraplegia, Neurogenic Bladder s/p Suprapubic Cath, Chronic UTI and Chronic Sacral Decubitus Ulcer who presented for evaluation of sacral wound. Stage IV Chronic Sacral Decubitus Ulcer, Present at time of admission. Recent admit 05/02-05/10 for same, s/p eval by ID and IV Abx, arrangements made for Home Health at time of d/c however pt reports difficulty obtaining care , currently homeless. Wound culture grew MRSA, likely colonized from superficial swab. No further antibiotics for sacral wounds per ID. Wound care nurse following Continue recommendations per plastic surgery. Pain control On oral Dilaudid at home for pain control, continue oral Dilaudid 2-4 mg as needed. E Coli/Proteus complicated urinary tract infection: Suprapubic catheter was changed at that time and being changed on a monthly basis Patient with multiple urinary tract infections during his stay in the hospital , infectious disease was following. No longer receiving antibiotics at this time. Continue monitor closely for signs of infection Bowel regimen with history of constipation. Monitor ostomy output. Whitney-Colace daily, Dulcolax as needed Neurogenic Bladder: Secondary to Paraplegia. Suprapubic catheter changed 08/10/16 Paraplegia: At baseline. Continue home medications. Awaiting Trapeze setup since transfer from [facility] hospital. PT eyal, recommends SNF, case management assisting. --Consulted OT to eval and make recommendations for wheelchair DVT Prophylaxis: SCD/Teds/lovenox. Discharge Planning CM following. Problem Qualifiers (1) Sacral decubitus ulcer: Qualified Code: L89.154 - Decubitus ulcer of sacral region, stage 4 Lani Jensen Aug 15, 2016 16:56
[2016-08-15 19:15] VITALS: BP 134/74; PULSE 97; RESP 21; TEMP 97.1; O2SAT 97
[2016-08-16] MEDS: oxyCODONE/ACETAMINOPHEN 7.5 MG/325 MG TAB PO PRN ×4 (02:52→21:09)
[2016-08-16 08:00] VITALS: BP 140/79; PULSE 86; RESP 20; TEMP 98.4; O2SAT 98
[2016-08-16] MEDS: GABAPENTIN 400 MG CAP PO SCH ×3 (08:35→18:12)
[2016-08-16] MEDS: FERROUS SULFATE 325 MG (65 MG ELEMENTAL IRON) TAB PO SCH ×2 (08:35→18:12)
[2016-08-16] MEDS: PANTOPRAZOLE SOD 40 MG DELAYED RELEASE TAB PO SCH (08:35)
[2016-08-16] MEDS: DOCUSATE SODIUM 50 MG/SENNA 8.6 MG TAB PO SCH (08:36)
[2016-08-16] MEDS: ENOXAPARIN SODIUM 40 MG/0.4 ML SYRINGE SQ SCH (08:36)
[2016-08-16] MEDS: SODIUM HYPOCHLORITE 0.125% 500 ML BTL TOPICAL SCH ×2 (08:39→21:11)
[2016-08-16] MEDS: LACTIC ACID (AMMONIUM LACTATE) 12% LOTION 225 GM BTL TOPICAL SCH ×2 (08:39→21:11)
--- NOTE | 2016-08-16 09:02 | HHI.PR ---
Subjective Remarks No acute complaints. No change in clinical status. Patient states he got a trapeze but now requires a different bed in order to use it. Objective Vitals Vital Signs Date Time Temp Pulse Resp B/P Pulse Ox O2 Delivery O2 Flow Rate FiO2 08/16/16 08:00 98.4 86 20 140/79 98 08/16/16 03:52 16 08/15/16 19:15 97.1 97 21 134/74 97 08/15/16 16:24 18 I/O 08/15/16 08/15/16 08/15/16 08/16/16 08/16/16 08/16/16 07:00 15:00 23:00 07:00 15:00 23:00 Intake Total 0 ml 700 ml 1210 ml 480 ml Output Total 325 ml 550 ml 600 ml Balance -325 ml 700 ml 660 ml -120 ml Intake Oral 700 ml 1210 ml 480 ml IV Total 0 ml Output Urine Total 325 ml 550 ml 600 ml # Bowel Movements 0 Objective Remarks GENERAL: Well-nourished patient in no apparent distress. CARDIOVASCULAR: Regular rate and rhythm. RESPIRATORY: No accessory muscle use. Clear to auscultation. Breath sounds equal bilaterally. GASTROINTESTINAL: Abdomen soft, non-tender, nondistended. MUSCULOSKELETAL: No lower extremity edema. NEUROLOGICAL: Awake and alert. Normal speech. PSYCHIATRIC: Appropriate mood and affect; insight and judgment normal. Procedures none Urinary Catheter: No Date of Insertion: Aug 10, 2016 Vascular Central Line Catheter: No A/P Problem List: (1) Sacral decubitus ulcer ICD Code: L89.159 Status: Chronic (2) Urinary tract infection due to Proteus ICD Code: N39.0 Status: Resolved (3) Constipation ICD Code: K59.00 Status: Resolved (4) Paraplegia ICD Code: G82.20 Status: Chronic (5) Neurogenic bladder ICD Code: N31.9 Status: Chronic Assessment and Plan Mr. Byrd is a 35-year-old male with PMH of Anxiety, Paraplegia, Neurogenic Bladder s/p Suprapubic Cath, Chronic UTI and Chronic Sacral Decubitus Ulcer who presented for evaluation of sacral wound. Stage IV Chronic Sacral Decubitus Ulcer, Present at time of admission. Recent admit 05/02-05/10 for same, s/p eval by ID and IV Abx, arrangements made for Home Health at time of d/c however pt reports difficulty obtaining care , currently homeless. Wound culture grew MRSA, likely colonized from superficial swab. No further antibiotics for sacral wounds per ID. Wound care nurse following Continue recommendations per plastic surgery. Pain control On oral Dilaudid at home for pain control, continue oral Dilaudid 2-4 mg as needed. E Coli/Proteus complicated urinary tract infection: Suprapubic catheter was changed at that time and being changed on a monthly basis Patient with multiple urinary tract infections during his stay in the hospital , infectious disease was following. No longer receiving antibiotics at this time. Continue monitor closely for signs of infection Bowel regimen with history of constipation. Monitor ostomy output. Whitney-Colace daily, Dulcolax as needed Neurogenic Bladder: Secondary to Paraplegia. Suprapubic catheter changed 08/10/16 Paraplegia: At baseline. Continue home medications. Awaiting Trapeze setup since transfer from [facility]. PT eyal, recommends SNF, case management assisting. --Consulted OT to eval and make recommendations for wheelchair DVT Prophylaxis: SCD/Teds/lovenox. Discharge Planning CM following. Problem Qualifiers (1) Sacral decubitus ulcer: Qualified Code: L89.154 - Decubitus ulcer of sacral region, stage 4 Lani Jensen Aug 16, 2016 09:02
[2016-08-16] MEDS: ALPRAZolam 1 MG TAB PO PRN ×2 (15:52→23:16)
[2016-08-16 20:00] VITALS: BP 122/70; PULSE 85; RESP 16; TEMP 97.5; O2SAT 96
[2016-08-17] MEDS: oxyCODONE/ACETAMINOPHEN 7.5 MG/325 MG TAB PO PRN ×4 (02:35→21:45)
[2016-08-17 08:00] VITALS: BP 129/76; PULSE 79; RESP 18; TEMP 98.9; O2SAT 95
[2016-08-17] MEDS: FERROUS SULFATE 325 MG (65 MG ELEMENTAL IRON) TAB PO SCH ×2 (09:12→12:13)
[2016-08-17] MEDS: DOCUSATE SODIUM 50 MG/SENNA 8.6 MG TAB PO SCH (09:12)
[2016-08-17] MEDS: GABAPENTIN 400 MG CAP PO SCH ×3 (09:12→17:40)
[2016-08-17] MEDS: PANTOPRAZOLE SOD 40 MG DELAYED RELEASE TAB PO SCH (09:12)
[2016-08-17] MEDS: ENOXAPARIN SODIUM 40 MG/0.4 ML SYRINGE SQ SCH (09:13)
[2016-08-17] MEDS: SODIUM HYPOCHLORITE 0.125% 500 ML BTL TOPICAL SCH ×2 (09:13→21:44)
[2016-08-17] MEDS: LACTIC ACID (AMMONIUM LACTATE) 12% LOTION 225 GM BTL TOPICAL SCH ×2 (09:13→21:45)
--- NOTE | 2016-08-17 12:22 | HHI.PR ---
Subjective Remarks Follow up for decubitus ulcers, paraplegia, s/p UTI. Patient states she has not had an appetite for the past 2 days and admits to generalized weakness. I asked the patient if he has had these symptoms with UTI in the past and he states yes. He denies any fevers or chills, shortness of breath, nausea, vomiting, or dysuria. Discussed with RN who states he has been eating. Objective Vitals Vital Signs Date Time Temp Pulse Resp B/P Pulse Ox O2 Delivery O2 Flow Rate FiO2 08/17/16 08:00 98.9 79 18 129/76 95 08/17/16 03:35 16 08/16/16 22:00 16 08/16/16 20:00 97.5 85 16 122/70 96 I/O 08/16/16 08/16/16 08/16/16 08/17/16 08/17/16 08/17/16 07:00 15:00 23:00 07:00 15:00 23:00 Intake Total 480 ml 480 ml 720 ml 720 ml Output Total 600 ml 725 ml 1850 ml 1050 ml Balance -120 ml -245 ml -1130 ml -330 ml Intake Oral 480 ml 480 ml 720 ml 720 ml Output Urine Total 600 ml 725 ml 1825 ml 1000 ml Stool Total 25 ml 50 ml # Bowel Movements 0 Objective Remarks GENERAL: Well-nourished patient in no apparent distress. CARDIOVASCULAR: Regular rate and rhythm. RESPIRATORY: No accessory muscle use. Clear to auscultation. Breath sounds equal bilaterally. GASTROINTESTINAL: Abdomen soft, non-tender, nondistended. : Catheter bag with yellow urine, no turbidity. NEUROLOGICAL: Awake and alert. Normal speech. PSYCHIATRIC: Appropriate mood and affect; insight and judgment normal. Procedures none Urinary Catheter: No Date of Insertion: Aug 10, 2016 Vascular Central Line Catheter: No A/P Problem List: (1) Sacral decubitus ulcer ICD Code: L89.159 Status: Chronic (2) Urinary tract infection due to Proteus ICD Code: N39.0 Status: Resolved (3) Constipation ICD Code: K59.00 Status: Resolved (4) Paraplegia ICD Code: G82.20 Status: Chronic (5) Neurogenic bladder ICD Code: N31.9 Status: Chronic Assessment and Plan Mr. Byrd is a 35-year-old male with PMH of Anxiety, Paraplegia, Neurogenic Bladder s/p Suprapubic Cath, Chronic UTI and Chronic Sacral Decubitus Ulcer who presented for evaluation of sacral wound. Stage IV Chronic Sacral Decubitus Ulcer, Present at time of admission. Recent admit 05/02-05/10 for same, s/p eval by ID and IV Abx, arrangements made for Home Health at time of d/c however pt reports difficulty obtaining care , currently homeless. Wound culture grew MRSA, likely colonized from superficial swab. No further antibiotics for sacral wounds per ID. Wound care nurse following Continue recommendations per plastic surgery. On oral Dilaudid at home for pain control, continue oral Dilaudid 2-4 mg as needed. E Coli/Proteus complicated urinary tract infection: Suprapubic catheter was changed at that time and being changed on a monthly basis; last changed on 08/10/16. Patient with multiple urinary tract infections during his stay in the hospital , infectious disease was following. No longer receiving antibiotics at this time. Continue monitor closely for signs of infection. Loss of appetite for the past 2 days and generalized weakness: Could be indication of developing UTI, but urine is clear and RN states patient has been eating. No sob reported. -CBC today with normal WBC. Hemoglobin improved. BMP unremarkable. Vitals are good. Bowel regimen with history of constipation. Monitor ostomy output. Whitney-Colace daily, Dulcolax as needed Neurogenic Bladder: Secondary to Paraplegia. Suprapubic catheter changed 08/10/16 Paraplegia: At baseline. Continue home medications. Awaiting Trapeze setup since transfer from [facility]. PT eayl, recommends SNF, case management assisting. --Consulted OT to eval and make recommendations for wheelchair DVT Prophylaxis: SCD/Teds/lovenox. Discharge Planning 08/17/16: Per CM, patient has no family to assist. Working on placement. Problem Qualifiers (1) Sacral decubitus ulcer: Qualified Code: L89.154 - Decubitus ulcer of sacral region, stage 4 Lani Jensen Aug 17, 2016 12:22
[2016-08-17 13:16] LABS: AUTOMATED NEUTROPHIL # 3.4 TH/MM3 (1.8-7.7); BASOPHIL # 0.1 TH/MM3 (0-0.2); BASOPHIL % 0.7 % (0.0-2.0); EOSINOPHIL # 0.2 TH/MM3 (0-0.4); EOSINOPHIL % 2.2 % (0.0-4.0); HEMATOCRIT 37.8 % (39.0-51.0); HEMO FLAGS DIFF FINAL; LYMPH % 48.8 % (9.0-44.0); LYMPHOCYTE # 3.8 TH/MM3 (1.0-4.8); MEAN CELL VOLUME 80.8 FL (80.0-100.0); MEAN CORPUSCULAR HGB CONC 33.4 % (32.0-36.0); MONO % 4.5 % (0.0-8.0); NEUT % 43.8 % (16.0-70.0); PLATELET COUNT 466 TH/MM3 (150-450); RED BLOOD COUNT 4.68 MIL/MM3 (4.50-5.90); RED CELL DISTRIBUTION WIDTH 18.3 % (11.6-17.2); WHITE BLOOD COUNT 7.9 TH/MM3 (4.0-11.0)
[2016-08-17 13:25] LABS: POTASSIUM 3.9 MEQ/L (3.5-5.1)
[2016-08-17 13:28] LABS: BICARBONATE 24.8 MEQ/L (21.0-32.0)
[2016-08-17 20:00] VITALS: BP 132/69; PULSE 90; RESP 18; TEMP 95.7; O2SAT 99
[2016-08-17] MEDS: ALPRAZolam 1 MG TAB PO PRN (21:44)
[2016-08-18] MEDS: oxyCODONE/ACETAMINOPHEN 7.5 MG/325 MG TAB PO PRN ×5 (02:45→23:02)
[2016-08-18 08:00] VITALS: BP 131/78; PULSE 78; RESP 19; TEMP 98; O2SAT 96
[2016-08-18] MEDS: GABAPENTIN 400 MG CAP PO SCH ×3 (08:46→17:05)
[2016-08-18] MEDS: DOCUSATE SODIUM 50 MG/SENNA 8.6 MG TAB PO SCH (08:46)
[2016-08-18] MEDS: FERROUS SULFATE 325 MG (65 MG ELEMENTAL IRON) TAB PO SCH ×2 (08:46→12:19)
[2016-08-18] MEDS: PANTOPRAZOLE SOD 40 MG DELAYED RELEASE TAB PO SCH (08:47)
[2016-08-18] MEDS: SODIUM HYPOCHLORITE 0.125% 500 ML BTL TOPICAL SCH ×2 (08:47→21:00)
[2016-08-18] MEDS: ENOXAPARIN SODIUM 40 MG/0.4 ML SYRINGE SQ SCH (08:47)
[2016-08-18] MEDS: LACTIC ACID (AMMONIUM LACTATE) 12% LOTION 225 GM BTL TOPICAL SCH ×2 (08:48→21:00)
--- NOTE | 2016-08-18 13:20 | HHI.PR ---
Subjective Remarks Follow up for decubitus ulcers, paraplegia, s/p UTI. Patient states his appetite is improved. He complains of a rash to his face requesting hydrocortisone cream, stating he uses this at home. He denies any fevers, nausea, vomiting, or dysuria. Objective Vitals Vital Signs Date Time Temp Pulse Resp B/P Pulse Ox O2 Delivery O2 Flow Rate FiO2 08/18/16 08:00 98.0 78 19 131/78 96 08/17/16 20:00 95.7 90 18 132/69 99 I/O 08/17/16 08/17/16 08/17/16 08/18/16 08/18/16 08/18/16 07:00 15:00 23:00 07:00 15:00 23:00 Intake Total 720 ml 480 ml 600 ml 240 ml Output Total 1050 ml 900 ml 700 ml 950 ml Balance -330 ml -900 ml -220 ml -350 ml 240 ml Intake Oral 720 ml 480 ml 600 ml 240 ml Output Urine Total 1000 ml 900 ml 700 ml 950 ml Stool Total 50 ml 0 ml 0 ml Result Diagram: 08/17/16 1300 08/17/16 1300 Objective Remarks GENERAL: Well-nourished patient in no apparent distress. SKIN: Small patches of dry flaking skin on the face. CARDIOVASCULAR: Regular rate and rhythm. RESPIRATORY: No accessory muscle use. Clear to auscultation. Breath sounds equal bilaterally. GASTROINTESTINAL: Abdomen soft, non-tender, nondistended. : Catheter bag with yellow urine, no turbidity. NEUROLOGICAL: Awake and alert. Normal speech. PSYCHIATRIC: Appropriate mood and affect; insight and judgment normal. Procedures none Urinary Catheter: No Date of Insertion: Aug 10, 2016 Vascular Central Line Catheter: No A/P Problem List: (1) Sacral decubitus ulcer ICD Code: L89.159 Status: Chronic (2) Urinary tract infection due to Proteus ICD Code: N39.0 Status: Resolved (3) Constipation ICD Code: K59.00 Status: Resolved (4) Paraplegia ICD Code: G82.20 Status: Chronic (5) Neurogenic bladder ICD Code: N31.9 Status: Chronic Assessment and Plan Mr. Byrd is a 35-year-old male with PMH of Anxiety, Paraplegia, Neurogenic Bladder s/p Suprapubic Cath, Chronic UTI and Chronic Sacral Decubitus Ulcer who presented for evaluation of sacral wound. Stage IV Chronic Sacral Decubitus Ulcer, Present at time of admission. Recent admit 05/02-05/10 for same, s/p eval by ID and IV Abx, arrangements made for Home Health at time of d/c however pt reports difficulty obtaining care , currently homeless. Wound culture grew MRSA, likely colonized from superficial swab. No further antibiotics for sacral wounds per ID. Wound care nurse following Continue recommendations per plastic surgery. On oral Dilaudid at home for pain control, continue oral Dilaudid 2-4 mg as needed. E Coli/Proteus complicated urinary tract infection: Suprapubic catheter was changed at that time and being changed on a monthly basis; last changed on 08/10/16. Patient with multiple urinary tract infections during his stay in the hospital , infectious disease was following. No longer receiving antibiotics at this time. Continue monitor closely for signs of infection. Reported on 08/17 loss of appetite for the past 2 days and generalized weakness: Appetite improved. -CBC 08/17 with normal WBC. Hemoglobin improved. BMP 08/17 unremarkable. Vitals are good. Urine remains transparent. No dysuria. Bowel regimen with history of constipation. Monitor ostomy output. Whitney-Colace daily, Dulcolax as needed Neurogenic Bladder: Secondary to Paraplegia. Suprapubic catheter changed 08/10/16 Paraplegia: At baseline. Continue home medications. Awaiting Trapeze setup since transfer from [facility] hospital. PT eval, recommends SNF, case management assisting. --Consulted OT to eval and make recommendations for wheelchair Facial rash vs dry skin: Mild flaking skin to face. Patient uses hydrocortisone at home. -Hydrocortisone cream 1% daily. DVT Prophylaxis: SCD/Teds/lovenox. Discharge Planning 08/17/16: Per CM, patient has no family to assist. Working on placement. Problem Qualifiers (1) Sacral decubitus ulcer: Qualified Code: L89.154 - Decubitus ulcer of sacral region, stage 4 Lani Jensen Aug 18, 2016 13:20
[2016-08-18] MEDS: HYDROCORTISONE 1% CREAM 30 GM TOPICAL SCH (17:05)
[2016-08-18 20:00] VITALS: BP 152/87; PULSE 89; RESP 18; TEMP 98.7; O2SAT 96
[2016-08-19 08:00] VITALS: BP 137/77; PULSE 79; RESP 18; TEMP 97.9; O2SAT 98
[2016-08-19] MEDS: GABAPENTIN 400 MG CAP PO SCH ×3 (09:02→15:07)
[2016-08-19] MEDS: PANTOPRAZOLE SOD 40 MG DELAYED RELEASE TAB PO SCH (09:02)
[2016-08-19] MEDS: DOCUSATE SODIUM 50 MG/SENNA 8.6 MG TAB PO SCH (09:02)
[2016-08-19] MEDS: FERROUS SULFATE 325 MG (65 MG ELEMENTAL IRON) TAB PO SCH ×2 (09:02→15:07)
[2016-08-19] MEDS: ENOXAPARIN SODIUM 40 MG/0.4 ML SYRINGE SQ SCH (09:02)
[2016-08-19] MEDS: oxyCODONE/ACETAMINOPHEN 7.5 MG/325 MG TAB PO PRN ×3 (09:03→20:17)
[2016-08-19] MEDS: SODIUM HYPOCHLORITE 0.125% 500 ML BTL TOPICAL SCH ×2 (09:04→20:19)
[2016-08-19] MEDS: LACTIC ACID (AMMONIUM LACTATE) 12% LOTION 225 GM BTL TOPICAL SCH ×2 (09:05→20:24)
[2016-08-19] MEDS: HYDROCORTISONE 1% CREAM 30 GM TOPICAL SCH (09:05)
--- NOTE | 2016-08-19 11:41 | HHI.PR ---
Subjective Remarks No acute complaints. No change in clinical status. Objective Vitals Vital Signs Date Time Temp Pulse Resp B/P Pulse Ox O2 Delivery O2 Flow Rate FiO2 08/19/16 08:00 97.9 79 18 137/77 98 08/19/16 00:02 16 08/18/16 20:00 98.7 89 18 152/87 96 I/O 08/18/16 08/18/16 08/18/16 08/19/16 08/19/16 08/19/16 07:00 15:00 23:00 07:00 15:00 23:00 Intake Total 600 ml 240 ml 390 ml Output Total 950 ml 400 ml 1000 ml Balance -350 ml 240 ml -10 ml -1000 ml Intake Oral 600 ml 240 ml 390 ml Output Urine Total 950 ml 400 ml 1000 ml Stool Total 0 ml # Bowel Movements 0 Result Diagram: 08/17/16 1300 08/17/16 1300 Objective Remarks GENERAL: Well-nourished patient in no apparent distress. CARDIOVASCULAR: Regular rate and rhythm. RESPIRATORY: No accessory muscle use. Clear to auscultation. Breath sounds equal bilaterally. GASTROINTESTINAL: Abdomen soft, non-tender, nondistended. Colostomy bag present. NEUROLOGICAL: Awake and alert. Normal speech. PSYCHIATRIC: Appropriate mood and affect; insight and judgment normal. Procedures none Urinary Catheter: No Date of Insertion: Aug 10, 2016 Vascular Central Line Catheter: No A/P Problem List: (1) Sacral decubitus ulcer ICD Code: L89.159 Status: Chronic (2) Urinary tract infection due to Proteus ICD Code: N39.0 Status: Resolved (3) Constipation ICD Code: K59.00 Status: Resolved (4) Paraplegia ICD Code: G82.20 Status: Chronic (5) Neurogenic bladder ICD Code: N31.9 Status: Chronic Assessment and Plan Mr. Byrd is a 35-year-old male with PMH of Anxiety, Paraplegia, Neurogenic Bladder s/p Suprapubic Cath, Chronic UTI and Chronic Sacral Decubitus Ulcer who presented for evaluation of sacral wound. Stage IV Chronic Sacral Decubitus Ulcer, Present at time of admission. Recent admit 05/02-05/10 for same, s/p eval by ID and IV Abx, arrangements made for Home Health at time of d/c however pt reports difficulty obtaining care , currently homeless. Wound culture grew MRSA, likely colonized from superficial swab. No further antibiotics for sacral wounds per ID. Wound care nurse following Continue recommendations per plastic surgery. On oral Dilaudid at home for pain control, continue oral Dilaudid 2-4 mg as needed. E Coli/Proteus complicated urinary tract infection: Suprapubic catheter was changed at that time and being changed on a monthly basis; last changed on 08/10/16. Patient with multiple urinary tract infections during his stay in the hospital , infectious disease was following. No longer receiving antibiotics at this time. Continue monitor closely for signs of infection. Reported on 08/17 loss of appetite for the past 2 days and generalized weakness: Appetite improved. -CBC 08/17 with normal WBC. Hemoglobin improved. BMP 08/17 unremarkable. Vitals are good. No dysuria. Bowel regimen with history of constipation. Monitor ostomy output. Whitney-Colace daily, Dulcolax as needed Neurogenic Bladder: Secondary to Paraplegia. Suprapubic catheter changed 08/10/16 Paraplegia: At baseline. Continue home medications. Awaiting Trapeze setup since transfer from [facility] hospital. PT eyal, recommends SNF, case management assisting. --Consulted OT to eval and make recommendations for wheelchair Facial rash vs dry skin: Mild flaking skin to face. Patient uses hydrocortisone at home. -Hydrocortisone cream 1% daily. DVT Prophylaxis: SCD/Teds/lovenox. Discharge Planning 08/17/16: Per , patient has no family to assist. Working on placement. Problem Qualifiers (1) Sacral decubitus ulcer: Qualified Code: L89.154 - Decubitus ulcer of sacral region, stage 4 Lani Jensen Aug 19, 2016 11:41
[2016-08-19 20:00] VITALS: BP 131/80; PULSE 90; RESP 18; TEMP 98.1; O2SAT 96
[2016-08-19] MEDS: ALPRAZolam 1 MG TAB PO PRN (20:23)
[2016-08-20] MEDS: oxyCODONE/ACETAMINOPHEN 7.5 MG/325 MG TAB PO PRN ×5 (01:07→22:53)
[2016-08-20 08:00] VITALS: BP 138/82; PULSE 84; RESP 20; TEMP 97.9; O2SAT 97
[2016-08-20] MEDS: PANTOPRAZOLE SOD 40 MG DELAYED RELEASE TAB PO SCH (09:16)
[2016-08-20] MEDS: GABAPENTIN 400 MG CAP PO SCH ×3 (09:16→18:43)
[2016-08-20] MEDS: DOCUSATE SODIUM 50 MG/SENNA 8.6 MG TAB PO SCH (09:16)
[2016-08-20] MEDS: FERROUS SULFATE 325 MG (65 MG ELEMENTAL IRON) TAB PO SCH ×2 (09:16→18:43)
[2016-08-20] MEDS: ENOXAPARIN SODIUM 40 MG/0.4 ML SYRINGE SQ SCH (09:16)
[2016-08-20] MEDS: HYDROCORTISONE 1% CREAM 30 GM TOPICAL SCH (09:17)
[2016-08-20] MEDS: SODIUM HYPOCHLORITE 0.125% 500 ML BTL TOPICAL SCH ×2 (09:19→22:44)
[2016-08-20] MEDS: LACTIC ACID (AMMONIUM LACTATE) 12% LOTION 225 GM BTL TOPICAL SCH ×2 (09:20→22:43)
--- NOTE | 2016-08-20 17:20 | HHI.PR ---
Subjective Remarks Patient seen in follow-up for wound care, paraplegic gentleman. He is homeless Care plan discussed with Niles BULLOCK. Wounds examined Objective Vitals Vital Signs Date Time Temp Pulse Resp B/P Pulse Ox O2 Delivery O2 Flow Rate FiO2 08/20/16 14:35 14 08/20/16 08:00 97.9 84 20 138/82 97 08/19/16 20:00 98.1 90 18 131/80 96 I/O 08/19/16 08/19/16 08/19/16 08/20/16 08/20/16 08/20/16 07:00 15:00 23:00 07:00 15:00 23:00 Intake Total 600 ml 420 ml 360 ml Output Total 1000 ml 750 ml 1050 ml 900 ml Balance -1000 ml -150 ml -630 ml -540 ml Intake Oral 600 ml 420 ml 360 ml Output Urine Total 1000 ml 750 ml 800 ml 900 ml Stool Total 250 ml # Bowel Movements 0 Result Diagram: 08/17/16 1300 08/17/16 1300 Objective Remarks Skin right heel ulcer, clean and dry Right buttocks pressure ulcer closed Left trochanteric pressure ulcer with improved granulation per report, serosanguineous drainage Sacral pressure ulcer with undetermined tunneling/undermining, posterior cervical wound clean dry dressing GENERAL: This is a well-nourished, well-developed patient, in no apparent distress. CARDIOVASCULAR: Regular rate and rhythm without murmurs, gallops, or rubs. RESPIRATORY: Clear to auscultation. Breath sounds equal bilaterally. No wheezes , rales, or rhonchi. GASTROINTESTINAL: Abdomen soft, non-tender, nondistended. Normal active bowel sounds MUSCULOSKELETAL: Extremities without clubbing, cyanosis, or edema. NEURO: Alert & Oriented x4 to person, place, time, situation. Paraplegia baseline PEG tube site with some superficial erosion but no overt signs of infection Colostomy site clean and dry Procedures none Date of Insertion: Aug 10, 2016 A/P Problem List: (1) Sacral decubitus ulcer ICD Code: L89.159 Status: Chronic (2) Urinary tract infection due to Proteus ICD Code: N39.0 Status: Resolved (3) Constipation ICD Code: K59.00 Status: Resolved (4) Paraplegia ICD Code: G82.20 Status: Chronic (5) Neurogenic bladder ICD Code: N31.9 Status: Chronic Assessment and Plan We'll continue with current management of patient's wounds, case management aware of barriers to discharge Problem Qualifiers (1) Sacral decubitus ulcer: Qualified Code: L89.154 - Decubitus ulcer of sacral region, stage 4 Kristen Ding MD Aug 20, 2016 17:20
[2016-08-20 20:00] VITALS: BP 115/68; PULSE 71; RESP 18; TEMP 96.9; O2SAT 95
[2016-08-20] MEDS: ALPRAZolam 1 MG TAB PO PRN (22:48)
[2016-08-21] MEDS: oxyCODONE/ACETAMINOPHEN 7.5 MG/325 MG TAB PO PRN ×5 (03:14→21:09)
[2016-08-21 08:16] VITALS: BP 122/74; PULSE 81; RESP 18; TEMP 97.7; O2SAT 94
[2016-08-21] MEDS: ENOXAPARIN SODIUM 40 MG/0.4 ML SYRINGE SQ SCH (08:50)
[2016-08-21] MEDS: FERROUS SULFATE 325 MG (65 MG ELEMENTAL IRON) TAB PO SCH ×2 (08:50→16:59)
[2016-08-21] MEDS: DOCUSATE SODIUM 50 MG/SENNA 8.6 MG TAB PO SCH (08:50)
[2016-08-21] MEDS: GABAPENTIN 400 MG CAP PO SCH ×3 (08:50→16:59)
[2016-08-21] MEDS: PANTOPRAZOLE SOD 40 MG DELAYED RELEASE TAB PO SCH (08:50)
[2016-08-21] MEDS: SODIUM HYPOCHLORITE 0.125% 500 ML BTL TOPICAL SCH ×2 (08:52→21:46)
[2016-08-21] MEDS: LACTIC ACID (AMMONIUM LACTATE) 12% LOTION 225 GM BTL TOPICAL SCH ×2 (08:52→21:08)
[2016-08-21] MEDS: HYDROCORTISONE 1% CREAM 30 GM TOPICAL SCH (08:53)
--- NOTE | 2016-08-21 11:45 | HHI.PR ---
Subjective Remarks Follow-up for pressure ulcers. Patient discussed with nurse. No acute complaints. Objective Vitals Vital Signs Date Time Temp Pulse Resp B/P Pulse Ox O2 Delivery O2 Flow Rate FiO2 08/21/16 10:08 14 08/21/16 08:16 97.7 81 18 122/74 94 08/20/16 20:00 96.9 71 18 115/68 95 I/O 08/20/16 08/20/16 08/20/16 08/21/16 08/21/16 08/21/16 07:00 15:00 23:00 07:00 15:00 23:00 Intake Total 420 ml 360 ml 700 ml 680 ml Output Total 1050 ml 900 ml 1500 ml 900 ml Balance -630 ml -540 ml -800 ml -220 ml Intake Oral 420 ml 360 ml 700 ml 680 ml Output Urine Total 800 ml 900 ml 1500 ml 900 ml Stool Total 250 ml # Bowel Movements 1 0 Result Diagram: 08/17/16 1300 08/17/16 1300 Objective Remarks GENERAL: Well-nourished patient in no apparent distress. CARDIOVASCULAR: Regular rate and rhythm. RESPIRATORY: No accessory muscle use. Clear to auscultation. Breath sounds equal bilaterally. GASTROINTESTINAL: Colostomy. NEUROLOGICAL: Awake and alert. Normal speech. PSYCHIATRIC: Appropriate mood and affect; insight and judgment normal. Procedures none Urinary Catheter: Yes Assessment to: Continue Peterson insert reason: Prolonged Immobilization (paraplegic) Date of Insertion: Aug 10, 2016 Vascular Central Line Catheter: No A/P Problem List: (1) Sacral decubitus ulcer ICD Code: L89.159 Status: Chronic (2) Urinary tract infection due to Proteus ICD Code: N39.0 Status: Resolved (3) Constipation ICD Code: K59.00 Status: Resolved (4) Paraplegia ICD Code: G82.20 Status: Chronic (5) Neurogenic bladder ICD Code: N31.9 Status: Chronic Assessment and Plan Mr. Byrd is a 35-year-old male with PMH of Anxiety, Paraplegia, Neurogenic Bladder s/p Suprapubic Cath, Chronic UTI and Chronic Sacral Decubitus Ulcer who presented for evaluation of sacral wound. Multiple pressure ulcers: R buttock, sacral, posterior scrotum, L trochanter, R heel, and R great toe. Stage IV Chronic Sacral Decubitus Ulcer, Present at time of admission. Recent admit 05/02-05/10 for same, s/p eval by ID and IV Abx, arrangements made for Home Health at time of d/c however pt reports difficulty obtaining care , currently homeless. Wound culture grew MRSA, likely colonized from superficial swab. No further antibiotics for sacral wounds per ID. Continue recommendations per plastic surgery. On oral Dilaudid at home for pain control, continue oral Dilaudid 2-4 mg as needed. Wound nurse last evaluated on 08/01/16 [address] [facility]. Dr. Ding evaluated all wounds yesterday and instructed nurse on appropriate cleansing and dressing. Wound care nurse re-consulted to evaluate and follow here at [facility]. E Coli/Proteus complicated urinary tract infection: Suprapubic catheter was changed at that time and being changed on a monthly basis; last changed on 08/10/16. Patient with multiple urinary tract infections during his stay in the hospital , infectious disease was following. No longer receiving antibiotics at this time. Continue monitor closely for signs of infection. Reported on 08/17 loss of appetite for the past 2 days and generalized weakness: Appetite improved. -CBC 08/17 with normal WBC. Hemoglobin improved. BMP 08/17 unremarkable. Vitals are good. No dysuria. Bowel regimen with history of constipation. Monitor ostomy output. Whitney-Colace daily, Dulcolax as needed Neurogenic Bladder: Secondary to Paraplegia. Suprapubic catheter changed 08/10/16 Paraplegia: At baseline. Continue home medications. Awaiting Trapeze setup since transfer [facility]. PT eyal, recommends SNF, case management assisting. --Consulted OT to eval and make recommendations for wheelchair Facial rash vs dry skin: Mild flaking skin to face. Patient uses hydrocortisone at home. -Hydrocortisone cream 1% daily. DVT Prophylaxis: SCD/Teds/lovenox. Discharge Planning 08/17/16: Per CM, patient has no family to assist. Working on placement. Problem Qualifiers (1) Sacral decubitus ulcer: Qualified Code: L89.154 - Decubitus ulcer of sacral region, stage 4 Lani Jensen Aug 21, 2016 11:45
[2016-08-21 20:00] VITALS: BP 141/78; PULSE 80; RESP 20; TEMP 97.3; O2SAT 97
[2016-08-21] MEDS: ALPRAZolam 1 MG TAB PO PRN (21:09)
[2016-08-22] MEDS: oxyCODONE/ACETAMINOPHEN 7.5 MG/325 MG TAB PO PRN ×6 (01:08→22:44)
[2016-08-22 08:00] VITALS: BP 127/76; PULSE 84; RESP 20; TEMP 98; O2SAT 96
[2016-08-22] MEDS: ENOXAPARIN SODIUM 40 MG/0.4 ML SYRINGE SQ SCH (10:33)
[2016-08-22] MEDS ORDERED: WHEEMIS3 (10:33)
--- NOTE | 2016-08-22 10:33 | HHI.PR ---
Subjective Remarks Patient seen and examined today. Patient denies any new complaints. No change in clinical status. Awaiting case management discharge planning Objective Vitals Vital Signs Date Time Temp Pulse Resp B/P Pulse Ox O2 Delivery O2 Flow Rate FiO2 08/22/16 08:00 98.0 84 20 127/76 96 08/21/16 20:00 97.3 80 20 141/78 97 08/21/16 18:04 14 I/O 08/21/16 08/21/16 08/21/16 08/22/16 08/22/16 08/22/16 07:00 15:00 23:00 07:00 15:00 23:00 Intake Total 680 ml 580 ml 88 ml 720 ml Output Total 900 ml 400 ml 800 ml 1400 ml Balance -220 ml 180 ml -712 ml -680 ml Intake Oral 680 ml 580 ml 88 ml 720 ml Output Urine Total 900 ml 400 ml 800 ml 1400 ml # Bowel Movements 0 0 Objective Remarks GENERAL: Well-developed, well-nourished, in no acute distress. alert and orientated HEENT: Head is normocephalic without any lesions or masses noted. Facial features are symmetric. Eyes: Extraocular muscles are intact. Conjunctivae were clear. NECK: Supple without any masses. Trachea midline no deviation. No JVD, CARDIAC: Regular rhythm, regular rate. S1/S2 are heard. No murmurs gallops or rubs. LUNGS: Clear to auscultation bilaterally. No wheeze, rhonchi or rales. No use of accessory muscles on inspiration or expiration. ABDOMEN: Soft, nontender. Nondistended. Bowel sounds heard in all 4 quadrants. No organomegaly or masses. Negative rebound, negative guarding. Suprapubic catheter in place without any signs of infection. Colostomy noted EXTREMITIES: No edema, pulses are equal bilaterally. No cyanosis or clubbing NEUROLOGY: Mood and affect appear appropriate. Cranial nerves II through XII grossly intact. SKIN: Right sided hip has nice clean area no signs of any wound or drainage at this time. Left hip shows deep approximately 2 cm opening with clean bases and good signs of healing. But I asked has healing area without any signs of exudates. There is a wound and open ulceration noted in the cranium at the base of the scrotum with clean edges and no signs of infection. Procedures none Urinary Catheter: Yes Assessment to: Continue Peterson insert reason: Stage III/IV Press Ulcer Date of Insertion: Aug 10, 2016 Vascular Central Line Catheter: No A/P Assessment and Plan Mr. Byrd is a 35-year-old male with PMH of Anxiety, Paraplegia, Neurogenic Bladder s/p Suprapubic Cath, Chronic UTI and Chronic Sacral Decubitus Ulcer who presented for evaluation of sacral wound. Stage IV Chronic Sacral Decubitus Ulcer, Present at time of admission. Recent admit 05/02-05/10 for same, s/p eval by ID and IV Abx, arrangements made for Home Health at time of d/c however pt reports difficulty obtaining care , currently homeless. Patient referred to ED by PCP for assistance with chronic wound management. Wound culture grew MRSA, likely colonized from superficial swab. No further antibiotics for sacral wounds per ID. Wound care nurse consulted, appreciate recommendations, orders for dressing changes placed. Continue recommendations per plastic surgery. Pain control Dilaudid at home for pain control, continue oral Dilaudid 2-4 mg as needed. E Coli/Proteus complicated urinary tract infection: Suprapubic catheter was changed at that time and being changed on a monthly basis Patient with multiple urinary tract infections during his stay in the hospital , infectious disease was following to this day. No longer receiving antibiotics at this time. Continue monitor closely for signs of infection Bowel regimen with history of constipation. Monitor ostomy output. Whitney-Colace daily, Dulcolax as needed Neurogenic Bladder: Secondary to Paraplegia. Suprapubic catheter changed 08/10/16 Paraplegia: At baseline. Continue home medications. Awaiting Trapeze setup since transfer from [facility] hospital. PT eyal, recommends SNF, case management assisting. --Consulted OT to eval and make recommendations for wheelchair DVT Prophylaxis: SCD/Teds/lovenox. Discharge Planning Discharge planning per case management Sergei Larose Aug 22, 2016 10:33
[2016-08-22] MEDS: DOCUSATE SODIUM 50 MG/SENNA 8.6 MG TAB PO SCH (10:34)
[2016-08-22] MEDS: FERROUS SULFATE 325 MG (65 MG ELEMENTAL IRON) TAB PO SCH ×2 (10:34→17:01)
[2016-08-22] MEDS: GABAPENTIN 400 MG CAP PO SCH ×3 (10:34→17:01)
[2016-08-22] MEDS: PANTOPRAZOLE SOD 40 MG DELAYED RELEASE TAB PO SCH (10:34)
[2016-08-22] MEDS: LACTIC ACID (AMMONIUM LACTATE) 12% LOTION 225 GM BTL TOPICAL SCH ×2 (10:35→20:26)
[2016-08-22] MEDS: HYDROCORTISONE 1% CREAM 30 GM TOPICAL SCH (10:35)
[2016-08-22] MEDS: SODIUM HYPOCHLORITE 0.125% 500 ML BTL TOPICAL SCH ×2 (10:36→20:26)
[2016-08-22] MEDS ORDERED: SILVER NITR/POTASSIUM NITRATE APPLICATORS TOPICAL PRN (10:45)
[2016-08-22 20:00] VITALS: BP 117/78; PULSE 90; RESP 18; TEMP 98; O2SAT 95
[2016-08-22] MEDS: ALPRAZolam 1 MG TAB PO PRN (20:32)
[2016-08-23] MEDS: oxyCODONE/ACETAMINOPHEN 7.5 MG/325 MG TAB PO PRN ×5 (03:25→20:48)
[2016-08-23 08:00] VITALS: BP 116/73; PULSE 86; RESP 18; TEMP 96.8; O2SAT 96
[2016-08-23] MEDS: GABAPENTIN 400 MG CAP PO SCH ×3 (08:35→16:34)
[2016-08-23] MEDS: FERROUS SULFATE 325 MG (65 MG ELEMENTAL IRON) TAB PO SCH ×2 (08:35→16:34)
[2016-08-23] MEDS: DOCUSATE SODIUM 50 MG/SENNA 8.6 MG TAB PO SCH (08:35)
[2016-08-23] MEDS: HYDROCORTISONE 1% CREAM 30 GM TOPICAL SCH (08:36)
[2016-08-23] MEDS: LACTIC ACID (AMMONIUM LACTATE) 12% LOTION 225 GM BTL TOPICAL SCH ×2 (08:36→20:49)
[2016-08-23] MEDS: PANTOPRAZOLE SOD 40 MG DELAYED RELEASE TAB PO SCH (08:36)
[2016-08-23] MEDS: SODIUM HYPOCHLORITE 0.125% 500 ML BTL TOPICAL SCH ×2 (08:37→20:49)
[2016-08-23] MEDS: ENOXAPARIN SODIUM 40 MG/0.4 ML SYRINGE SQ SCH (08:42)
--- NOTE | 2016-08-23 09:35 | HHI.PR ---
Subjective Remarks Patient seen and examined today. Patient denies any new complaints. No change in clinical status. I'll notify the nursing staff that plastic surgery plans on doing a revision of the patient's left trochanter wounds. However no documentation in the chart or transfer orders for surgery Objective Vitals Vital Signs Date Time Temp Pulse Resp B/P Pulse Ox O2 Delivery O2 Flow Rate FiO2 08/23/16 08:00 96.8 86 18 116/73 96 08/22/16 20:00 98.0 90 18 117/78 95 08/22/16 16:12 14 I/O 08/22/16 08/22/16 08/22/16 08/23/16 08/23/16 08/23/16 07:00 15:00 23:00 07:00 15:00 23:00 Intake Total 720 ml 720 ml 850 ml 550 ml Output Total 1400 ml 950 ml 500 ml 1300 ml Balance -680 ml -230 ml 350 ml -750 ml Intake Oral 720 ml 720 ml 850 ml 550 ml Output Urine Total 1400 ml 950 ml 500 ml 1300 ml Objective Remarks GENERAL: Well-developed, well-nourished, in no acute distress. alert and orientated HEENT: Head is normocephalic without any lesions or masses noted. Facial features are symmetric. Eyes: Extraocular muscles are intact. Conjunctivae were clear. NECK: Supple without any masses. Trachea midline no deviation. No JVD, CARDIAC: Regular rhythm, regular rate. S1/S2 are heard. No murmurs gallops or rubs. LUNGS: Clear to auscultation bilaterally. No wheeze, rhonchi or rales. No use of accessory muscles on inspiration or expiration. ABDOMEN: Soft, nontender. Nondistended. Bowel sounds heard in all 4 quadrants. No organomegaly or masses. Negative rebound, negative guarding. Suprapubic catheter in place without any signs of infection. Colostomy noted EXTREMITIES: No edema, pulses are equal bilaterally. No cyanosis or clubbing NEUROLOGY: Mood and affect appear appropriate. Cranial nerves II through XII grossly intact. SKIN: Right sided hip has nice clean area no signs of any wound or drainage at this time. Left hip shows deep approximately 2 cm opening with clean bases and good signs of healing. But I asked has healing area without any signs of exudates. There is a wound and open ulceration noted in the cranium at the base of the scrotum with clean edges and no signs of infection. Procedures none Urinary Catheter: Yes Assessment to: Continue Peterson insert reason: Stage III/IV Press Ulcer Date of Insertion: Aug 10, 2016 Vascular Central Line Catheter: No A/P Assessment and Plan Mr. Byrd is a 35-year-old male with PMH of Anxiety, Paraplegia, Neurogenic Bladder s/p Suprapubic Cath, Chronic UTI and Chronic Sacral Decubitus Ulcer who presented for evaluation of sacral wound. Stage IV Chronic Sacral, trochanter, scrotal Ulcer, Present at time of admission. Recent admit 05/02-05/10 for same, s/p eval by ID and IV Abx, arrangements made for Home Health at time of d/c however pt reports difficulty obtaining care , currently homeless. Patient referred to ED by PCP for assistance with chronic wound management. Wound culture grew MRSA, likely colonized from superficial swab. No further antibiotics for sacral wounds per ID. Wound care nurse consulted, appreciate recommendations, orders for dressing changes placed. Continue recommendations per plastic surgery. Possible need for surgery Pain control Dilaudid at home for pain control, continue oral Dilaudid 2-4 mg as needed. E Coli/Proteus complicated urinary tract infection: Suprapubic catheter was changed at that time and being changed on a monthly basis Patient with multiple urinary tract infections during his stay in the hospital , infectious disease was following to this day. No longer receiving antibiotics at this time. Continue monitor closely for signs of infection Bowel regimen with history of constipation. Monitor ostomy output. Whitney-Colace daily, Dulcolax as needed Neurogenic Bladder: Secondary to Paraplegia. Suprapubic catheter changed 08/10/16 Paraplegia: At baseline. Continue home medications. Trapeze setup in place Multi-Podus boots PT eval, recommends SNF, case management assisting. --Consulted OT who made recommendations for wheelchair. Recommend patient be given to case management to obtain wheelchair for patient DVT Prophylaxis: SCD/Teds/lovenox. Discharge Planning Discharge planning per case management Sergei Larose Aug 23, 2016 09:34
[2016-08-23 20:00] VITALS: BP 146/86; PULSE 88; RESP 18; TEMP 98; O2SAT 96
[2016-08-23] MEDS: ALPRAZolam 1 MG TAB PO PRN (20:48)
[2016-08-24] MEDS: oxyCODONE/ACETAMINOPHEN 7.5 MG/325 MG TAB PO PRN ×5 (03:49→23:00)
[2016-08-24 08:00] VITALS: BP 129/86; PULSE 86; RESP 20; TEMP 96.6; O2SAT 95
[2016-08-24] MEDS: PANTOPRAZOLE SOD 40 MG DELAYED RELEASE TAB PO SCH (08:24)
[2016-08-24] MEDS: GABAPENTIN 400 MG CAP PO SCH ×3 (08:24→18:16)
[2016-08-24] MEDS: FERROUS SULFATE 325 MG (65 MG ELEMENTAL IRON) TAB PO SCH ×2 (08:25→18:16)
[2016-08-24] MEDS: DOCUSATE SODIUM 50 MG/SENNA 8.6 MG TAB PO SCH (08:25)
[2016-08-24] MEDS: SODIUM HYPOCHLORITE 0.125% 500 ML BTL TOPICAL SCH ×2 (08:27→20:43)
[2016-08-24] MEDS: LACTIC ACID (AMMONIUM LACTATE) 12% LOTION 225 GM BTL TOPICAL SCH ×2 (08:27→20:44)
[2016-08-24] MEDS: HYDROCORTISONE 1% CREAM 30 GM TOPICAL SCH (08:28)
[2016-08-24] MEDS: ENOXAPARIN SODIUM 40 MG/0.4 ML SYRINGE SQ SCH (09:09)
--- NOTE | 2016-08-24 09:37 | HHI.PR ---
Subjective Remarks Patient seen and examined today. Patient denies any new complaints. No change in clinical status. Awaiting case management for discharge planning. Objective Vitals Vital Signs Date Time Temp Pulse Resp B/P Pulse Ox O2 Delivery O2 Flow Rate FiO2 08/24/16 09:26 14 08/23/16 20:00 98.0 88 18 146/86 96 08/23/16 10:00 14 I/O 08/23/16 08/23/16 08/23/16 08/24/16 08/24/16 08/24/16 07:00 15:00 23:00 07:00 15:00 23:00 Intake Total 550 ml 480 ml 1250 ml 640 ml Output Total 1300 ml 450 ml 1200 ml 850 ml Balance -750 ml 30 ml 50 ml -210 ml Intake Oral 550 ml 480 ml 1250 ml 640 ml Output Urine Total 1300 ml 450 ml 1200 ml 850 ml # Bowel Movements 0 0 Objective Remarks GENERAL: Well-developed, well-nourished, in no acute distress. alert and orientated HEENT: Head is normocephalic without any lesions or masses noted. Facial features are symmetric. Eyes: Extraocular muscles are intact. Conjunctivae were clear. NECK: Supple without any masses. Trachea midline no deviation. No JVD, CARDIAC: Regular rhythm, regular rate. S1/S2 are heard. No murmurs gallops or rubs. LUNGS: Clear to auscultation bilaterally. No wheeze, rhonchi or rales. No use of accessory muscles on inspiration or expiration. ABDOMEN: Soft, nontender. Nondistended. Bowel sounds heard in all 4 quadrants. No organomegaly or masses. Negative rebound, negative guarding. Suprapubic catheter in place without any signs of infection. Colostomy noted EXTREMITIES: No edema, pulses are equal bilaterally. No cyanosis or clubbing NEUROLOGY: Mood and affect appear appropriate. Cranial nerves II through XII grossly intact. SKIN: Right sided hip has nice clean area no signs of any wound or drainage at this time. Left hip shows deep approximately 2 cm opening with clean bases and good signs of healing. But I asked has healing area without any signs of exudates. There is a wound and open ulceration noted in the cranium at the base of the scrotum with clean edges and no signs of infection. Procedures none Urinary Catheter: No Date of Insertion: Aug 10, 2016 Vascular Central Line Catheter: No A/P Assessment and Plan Mr. Byrd is a 35-year-old male with PMH of Anxiety, Paraplegia, Neurogenic Bladder s/p Suprapubic Cath, Chronic UTI and Chronic Sacral Decubitus Ulcer who presented for evaluation of sacral wound. Stage IV Chronic Sacral, trochanter, scrotal Ulcer, Present at time of admission. Recent admit 05/02-05/10 for same, s/p eval by ID and IV Abx, arrangements made for Home Health at time of d/c however pt reports difficulty obtaining care , currently homeless. Patient referred to ED by PCP for assistance with chronic wound management. Wound culture grew MRSA, likely colonized from superficial swab. No further antibiotics for sacral wounds per ID. Wound care nurse consulted, appreciate recommendations, orders for dressing changes placed. Continue recommendations per plastic surgery. Possible need for surgery Pain control Dilaudid at home for pain control, continue oral Dilaudid 2-4 mg as needed. E Coli/Proteus complicated urinary tract infection: Suprapubic catheter was changed at that time and being changed on a monthly basis Patient with multiple urinary tract infections during his stay in the hospital , infectious disease was following to this day. No longer receiving antibiotics at this time. Continue monitor closely for signs of infection Bowel regimen with history of constipation. Monitor ostomy output. Whitney-Colace daily, Dulcolax as needed Neurogenic Bladder: Secondary to Paraplegia. Suprapubic catheter changed 08/10/16 Paraplegia: At baseline. Continue home medications. Trapeze setup in place Multi-Podus boots PT eval, recommends SNF, case management assisting. --Consulted OT who made recommendations for wheelchair. Recommendations given to case management to obtain wheelchair for patient DVT Prophylaxis: SCD/Teds/lovenox. Discharge Planning Discharge planning per case management Sergei Larose Aug 24, 2016 09:37
[2016-08-24] MEDS: ALPRAZolam 1 MG TAB PO PRN ×2 (14:14→23:02)
[2016-08-25] MEDS: oxyCODONE/ACETAMINOPHEN 7.5 MG/325 MG TAB PO PRN ×4 (04:26→22:45)
--- NOTE | 2016-08-25 07:47 | MB ---
cc: BG MCLAUGHLIN M.D. DATE OF CONSULTATION: 08/22/2016 REASON FOR CONSULTATION Re-evaluation of patient with chronic sacral and ischial decubitus. HISTORY OF PRESENT ILLNESS This is a 35-year-old black male who has been in the hospital at the [facility] since early May. The patient has a very longstanding history of paraplegia and chronic decubitus ulcers. He also has had previous surgeries done for muscle flaps that have broken down over time. The wound has become infected off and on. He also has a colostomy and suprapubic catheter and has been in and out of the hospital several times. At the present time the patient has been in the hospital initially for increased drainage and foul smell from the decubitus wounds that have cleared up with wound care over the past 2-1/2 months. The patient unfortunately has not been able to be discharged due to placement problems. He is being re-evaluated by myself at the request of the medical team for possible surgical intervention as well. The patient originally had multiple decubitus ulcers both trochanteric and sacral. several debridement going as far back as 2006. PHYSICAL EXAMINATION Current examination today shows again the chronic decubitus mainly involving the midline sacrum which is relatively heavily scarred, admits approximately 1 to 1.5 cm of a fingertip, does not seem to have much undermining. The second decubitus is the left ischial / trochenteric with tunneling approximately 1-1/2 inches with a narrow skin opening and a couple of tracts. The superior tract is the longest. Inferiorly it seems to be approximately 1.5 cm. The underlying bone seems to be covered with heavy scar tissue. There is no sharp area. The tunnel actually appears to be relatively smooth now and the drainage is minimal. There is no foul smell. The patient otherwise has no maceration or breakdown of the surrounding skin. ASSESSMENT AND PLAN The patient was advised that the tunneled area on the ischial ulcer on the left can be opened to allow better dressing changes and wound care. The sacral ulcer can also be saucerized to provide faster healing. As far as the possibility of reconstruction it may or may not be feasible or advisable, however, this decision can be made in the operating room with the patient being properly positioned and exposed. Again, the patient has had previous muscle flaps and recurrent failure. The patient understands the general risks and complications including possibility that the surgery may be only for debridement and not a definitive reconstruction. The patient will need to be either scheduled at the [facility] if the operating room is available here or he may need to be transferred over to [facility]. I will check the possible location and make further arrangements. signed, not fully reviewed MD HARRIETT Sands/BEBETO /10:31 PM /7:26 AM MTDJatin
[2016-08-25 08:00] VITALS: BP 141/80; PULSE 86; RESP 19; TEMP 97.6; O2SAT 95
[2016-08-25] MEDS: GABAPENTIN 400 MG CAP PO SCH ×3 (09:54→18:14)
[2016-08-25] MEDS: PANTOPRAZOLE SOD 40 MG DELAYED RELEASE TAB PO SCH (09:55)
[2016-08-25] MEDS: FERROUS SULFATE 325 MG (65 MG ELEMENTAL IRON) TAB PO SCH ×2 (09:55→18:14)
[2016-08-25] MEDS: DOCUSATE SODIUM 50 MG/SENNA 8.6 MG TAB PO SCH (09:55)
[2016-08-25] MEDS: ENOXAPARIN SODIUM 40 MG/0.4 ML SYRINGE SQ SCH (09:55)
[2016-08-25] MEDS: HYDROCORTISONE 1% CREAM 30 GM TOPICAL SCH (09:56)
[2016-08-25] MEDS: SODIUM HYPOCHLORITE 0.125% 500 ML BTL TOPICAL SCH ×2 (09:56→20:48)
[2016-08-25] MEDS: LACTIC ACID (AMMONIUM LACTATE) 12% LOTION 225 GM BTL TOPICAL SCH ×2 (09:57→20:48)
--- NOTE | 2016-08-25 10:14 | HHI.PR ---
Subjective Remarks Patient seen and examined today. Patient denies any new complaints. No change in clinical status. Awaiting case management discharge planning. Objective Vitals Vital Signs Date Time Temp Pulse Resp B/P Pulse Ox O2 Delivery O2 Flow Rate FiO2 08/25/16 08:00 97.6 86 19 141/80 95 08/24/16 14:13 14 I/O 08/24/16 08/24/16 08/24/16 08/25/16 08/25/16 08/25/16 07:00 15:00 23:00 07:00 15:00 23:00 Intake Total 640 ml 420 ml Output Total 850 ml 450 ml 1400 ml Balance -210 ml -450 ml -980 ml Intake Oral 640 ml 420 ml Output Urine Total 850 ml 450 ml 1050 ml Stool Total 350 ml # Bowel Movements 0 Objective Remarks GENERAL: Well-developed, well-nourished, in no acute distress. alert and orientated HEENT: Head is normocephalic without any lesions or masses noted. Facial features are symmetric. Eyes: Extraocular muscles are intact. Conjunctivae were clear. NECK: Supple without any masses. Trachea midline no deviation. No JVD, CARDIAC: Regular rhythm, regular rate. S1/S2 are heard. No murmurs gallops or rubs. LUNGS: Clear to auscultation bilaterally. No wheeze, rhonchi or rales. No use of accessory muscles on inspiration or expiration. ABDOMEN: Soft, nontender. Nondistended. Bowel sounds heard in all 4 quadrants. No organomegaly or masses. Negative rebound, negative guarding. Suprapubic catheter in place without any signs of infection. Colostomy noted EXTREMITIES: No edema, pulses are equal bilaterally. No cyanosis or clubbing NEUROLOGY: Mood and affect appear appropriate. Cranial nerves II through XII grossly intact. SKIN: Right sided hip has nice clean area no signs of any wound or drainage at this time. Left hip shows deep approximately 2 cm opening with clean bases and good signs of healing. But I asked has healing area without any signs of exudates. There is a wound and open ulceration noted in the cranium at the base of the scrotum with clean edges and no signs of infection. Procedures none Urinary Catheter: Yes Assessment to: Continue Peterson insert reason: Stage III/IV Press Ulcer Date of Insertion: Aug 10, 2016 Vascular Central Line Catheter: No A/P Assessment and Plan Mr. Byrd is a 35-year-old male with PMH of Anxiety, Paraplegia, Neurogenic Bladder s/p Suprapubic Cath, Chronic UTI and Chronic Sacral Decubitus Ulcer who presented for evaluation of sacral wound. Stage IV Chronic Sacral, trochanter, scrotal Ulcer, Present at time of admission. Recent admit 05/02-05/10 for same, s/p eval by ID and IV Abx, arrangements made for Home Health at time of d/c however pt reports difficulty obtaining care , currently homeless. Patient referred to ED by PCP for assistance with chronic wound management. Wound culture grew MRSA, likely colonized from superficial swab. No further antibiotics for sacral wounds per ID. Wound care nurse consulted, appreciate recommendations, orders for dressing changes placed. Continue recommendations per plastic surgery. Possible need for surgery Pain control Dilaudid at home for pain control, continue oral Dilaudid 2-4 mg as needed. E Coli/Proteus complicated urinary tract infection: Suprapubic catheter was changed at that time and being changed on a monthly basis Patient with multiple urinary tract infections during his stay in the hospital , infectious disease was following to this day. No longer receiving antibiotics at this time. Continue monitor closely for signs of infection Bowel regimen with history of constipation. Monitor ostomy output. Whitney-Colace daily, Dulcolax as needed Neurogenic Bladder: Secondary to Paraplegia. Suprapubic catheter changed 08/10/16 Paraplegia: At baseline. Continue home medications. Trapeze setup in place Multi-Podus boots PT eval, recommends SNF, case management assisting. --Consulted OT who made recommendations for wheelchair. Recommendations given to case management to obtain wheelchair for patient DVT Prophylaxis: SCD/Teds/lovenox. Discharge Planning Discharge planning per case management Sergei Larose Aug 25, 2016 10:14
[2016-08-25] MEDS: ALPRAZolam 1 MG TAB PO PRN (20:48)
[2016-08-25 20:49] VITALS: BP 142/81; PULSE 90; RESP 18; TEMP 96.8; O2SAT 98
[2016-08-26] MEDS: oxyCODONE/ACETAMINOPHEN 7.5 MG/325 MG TAB PO PRN ×4 (06:04→21:13)
[2016-08-26 08:00] VITALS: BP 121/76; PULSE 75; RESP 20; TEMP 96.9; O2SAT 95
[2016-08-26] MEDS: FERROUS SULFATE 325 MG (65 MG ELEMENTAL IRON) TAB PO SCH ×2 (08:26→16:27)
[2016-08-26] MEDS: DOCUSATE SODIUM 50 MG/SENNA 8.6 MG TAB PO SCH (08:27)
[2016-08-26] MEDS: PANTOPRAZOLE SOD 40 MG DELAYED RELEASE TAB PO SCH (08:27)
[2016-08-26] MEDS: ENOXAPARIN SODIUM 40 MG/0.4 ML SYRINGE SQ SCH (08:27)
[2016-08-26] MEDS: GABAPENTIN 400 MG CAP PO SCH ×3 (08:27→16:27)
[2016-08-26] MEDS: SODIUM HYPOCHLORITE 0.125% 500 ML BTL TOPICAL SCH ×2 (08:28→21:14)
[2016-08-26] MEDS: LACTIC ACID (AMMONIUM LACTATE) 12% LOTION 225 GM BTL TOPICAL SCH ×2 (08:28→21:14)
[2016-08-26] MEDS: HYDROCORTISONE 1% CREAM 30 GM TOPICAL SCH (08:28)
--- NOTE | 2016-08-26 11:31 | HHI.PR ---
Subjective Remarks Patient seen and examined today. Patient denies any new complaints. No change in clinical status. Awaiting case management for discharge planning. Patient is asking if he can get MRI performed. He states that his pain management doctors states that he is due for an MRI of the spine at this time for further outpatient management. Objective Vitals Vital Signs Date Time Temp Pulse Resp B/P Pulse Ox O2 Delivery O2 Flow Rate FiO2 08/26/16 08:00 96.9 75 20 121/76 95 08/26/16 07:09 14 08/25/16 20:49 96.8 90 18 142/81 98 I/O 08/25/16 08/25/16 08/25/16 08/26/16 08/26/16 08/26/16 07:00 15:00 23:00 07:00 15:00 23:00 Intake Total 420 ml 560 ml Output Total 1400 ml 2600 ml 1600 ml 1000 ml Balance -980 ml -2040 ml -1600 ml -1000 ml Intake Oral 420 ml 560 ml Output Urine Total 1050 ml 2600 ml 1600 ml 1000 ml Stool Total 350 ml # Bowel Movements 0 Objective Remarks GENERAL: Well-developed, well-nourished, in no acute distress. alert and orientated HEENT: Head is normocephalic without any lesions or masses noted. Facial features are symmetric. Eyes: Extraocular muscles are intact. Conjunctivae were clear. NECK: Supple without any masses. Trachea midline no deviation. No JVD, CARDIAC: Regular rhythm, regular rate. S1/S2 are heard. No murmurs gallops or rubs. LUNGS: Clear to auscultation bilaterally. No wheeze, rhonchi or rales. No use of accessory muscles on inspiration or expiration. ABDOMEN: Soft, nontender. Nondistended. Bowel sounds heard in all 4 quadrants. No organomegaly or masses. Negative rebound, negative guarding. Suprapubic catheter in place without any signs of infection. Colostomy noted EXTREMITIES: No edema, pulses are equal bilaterally. No cyanosis or clubbing NEUROLOGY: Mood and affect appear appropriate. Cranial nerves II through XII grossly intact. SKIN: Right sided hip has nice clean area no signs of any wound or drainage at this time. Left hip shows deep approximately 2 cm opening with clean bases and good signs of healing. But I asked has healing area without any signs of exudates. There is a wound and open ulceration noted in the cranium at the base of the scrotum with clean edges and no signs of infection. Procedures none Urinary Catheter: Yes Assessment to: Continue Peterson insert reason: Prolonged Immobilization Date of Insertion: Aug 10, 2016 Vascular Central Line Catheter: No A/P Assessment and Plan Mr. Byrd is a 35-year-old male with PMH of Anxiety, Paraplegia, Neurogenic Bladder s/p Suprapubic Cath, Chronic UTI and Chronic Sacral Decubitus Ulcer who presented for evaluation of sacral wound. Stage IV Chronic Sacral, trochanter, scrotal Ulcer, Present at time of admission. Recent admit 05/02-05/10 for same, s/p eval by ID and IV Abx, arrangements made for Home Health at time of d/c however pt reports difficulty obtaining care , currently homeless. Patient referred to ED by PCP for assistance with chronic wound management. Wound culture grew MRSA, likely colonized from superficial swab. No further antibiotics for sacral wounds per ID. Wound care nurse consulted, appreciate recommendations, orders for dressing changes placed. Continue recommendations per plastic surgery. Possible need for surgery Pain control Dilaudid at home for pain control, continue oral Dilaudid 2-4 mg as needed. E Coli/Proteus complicated urinary tract infection: Suprapubic catheter was changed at that time and being changed on a monthly basis Patient with multiple urinary tract infections during his stay in the hospital , infectious disease was following to this day. No longer receiving antibiotics at this time. Continue monitor closely for signs of infection Bowel regimen with history of constipation. Monitor ostomy output. Whitney-Colace daily, Dulcolax as needed Neurogenic Bladder: Secondary to Paraplegia. Suprapubic catheter changed 08/10/16 Paraplegia: At baseline. Continue home medications. Trapeze setup in place Multi-Podus boots PT eval, recommends SNF, case management assisting. --Consulted OT who made recommendations for wheelchair. Recommendations given to case management to obtain wheelchair for patient DVT Prophylaxis: SCD/Teds/lovenox. Discharge Planning Discharge planning per case management Sergei Larose Aug 26, 2016 11:31
--- NOTE | 2016-08-26 13:32 | PD.PLAS.PN ---
Subjective Remarks Patient scheduled for surgery tomorrow morning at [facility] OR Please transfer the patient to the [facility] under medical service. Surgical floor or any flloor available Vital Signs Date Time Temp Pulse Resp B/P Pulse Ox O2 Delivery O2 Flow Rate FiO2 08/26/16 08:00 96.9 75 20 121/76 95 08/26/16 07:09 14 08/25/16 20:49 96.8 90 18 142/81 98 I/O 08/25/16 08/25/16 08/25/16 08/26/16 08/26/16 08/26/16 07:00 15:00 23:00 07:00 15:00 23:00 Intake Total 420 ml 560 ml Output Total 1400 ml 2600 ml 1600 ml 1000 ml Balance -980 ml -2040 ml -1600 ml -1000 ml Intake Oral 420 ml 560 ml Output Urine Total 1050 ml 2600 ml 1600 ml 1000 ml Stool Total 350 ml # Bowel Movements 0 Zain Gruber MD Aug 26, 2016 13:32
[2016-08-26 17:40] VITALS: BP 119/60; PULSE 78; RESP 20; TEMP 97.3; O2SAT 96
[2016-08-26] MEDS ORDERED: INSULIN HUMAN REGULAR 1,000 UNITS/10 ML VIAL SQ PRN (18:30)
[2016-08-26] MEDS: SODIUM CHLORID 0.9% 500 ML IV SCH (18:30)
[2016-08-26] MEDS ORDERED: METOPROLOL TARTRATE 25 MG TAB PO PRN (18:30)
[2016-08-26 20:19] VITALS: BP 138/74; PULSE 89; RESP 20; TEMP 96.9; O2SAT 96
[2016-08-26 21:10] LABS: PROTHROMBIN TIME - PATIENT 11.3 SEC (9.8-11.6)
[2016-08-26] MEDS: LACTATED RINGER'S 1000 ML IV SCH (21:12)
[2016-08-26] MEDS: ALPRAZolam 1 MG TAB PO PRN (21:20)
[2016-08-26 21:31] LABS: BICARBONATE 25.8 MEQ/L (21.0-32.0); POTASSIUM 4.5 MEQ/L (3.5-5.1)
[2016-08-27 00:22] VITALS: BP 119/59; PULSE 98; RESP 20; TEMP 97.4; O2SAT 96
[2016-08-27] MEDS: oxyCODONE/ACETAMINOPHEN 7.5 MG/325 MG TAB PO PRN ×2 (05:30→18:03)
[2016-08-27 08:00] VITALS: BP 117/64; PULSE 70; RESP 17; TEMP 96.4; O2SAT 97
[2016-08-27] MEDS: GABAPENTIN 400 MG CAP PO SCH ×3 (09:00→18:02)
[2016-08-27] MEDS: SODIUM HYPOCHLORITE 0.125% 500 ML BTL TOPICAL SCH ×2 (09:00→20:30)
[2016-08-27] MEDS: LACTIC ACID (AMMONIUM LACTATE) 12% LOTION 225 GM BTL TOPICAL SCH ×2 (09:00→20:30)
[2016-08-27] MEDS: FERROUS SULFATE 325 MG (65 MG ELEMENTAL IRON) TAB PO SCH ×2 (09:00→18:02)
[2016-08-27] MEDS: PANTOPRAZOLE SOD 40 MG DELAYED RELEASE TAB PO SCH (09:00)
[2016-08-27] MEDS: DOCUSATE SODIUM 50 MG/SENNA 8.6 MG TAB PO SCH (09:00)
[2016-08-27] MEDS: HYDROCORTISONE 1% CREAM 30 GM TOPICAL SCH (09:00)
[2016-08-27] MEDS: ENOXAPARIN SODIUM 40 MG/0.4 ML SYRINGE SQ SCH (09:11)
[2016-08-27] MEDS: SODIUM CHLORID 0.9% 500 ML IV SCH (11:10)
[2016-08-27] MEDS ORDERED: LIDOCAINE 1%/EPINEPHrine 1:100,000 SOLN 30 ML VIAL ONE ×2 (11:59→15:21)
[2016-08-27 12:00] VITALS: BP 96/57; PULSE 87; RESP 17; TEMP 96.7; O2SAT 97
[2016-08-27] MEDS ORDERED: ONDANSETRON HCL 4 MG/2 ML VIAL IV PUSH ONE (12:29)
[2016-08-27] MEDS ORDERED: NALOXONE HCL 0.4 MG/ML AMP IV ONE (12:29)
[2016-08-27] MEDS ORDERED: PROPOFOL 200 MG/20 ML AMP IV ONE (12:29)
[2016-08-27] MEDS ORDERED: NEOSTIGMINE 3 MG/3 ML SYR IV ONE (12:29)
--- NOTE | 2016-08-27 13:49 | HHI.PR ---
Subjective Remarks Patient transferred from [facility] for surgery today by Dr. Land Patient is Resting in bed awake alert oriented, no pain or fever or chills Plan: to go to our next couple of hours Objective Vitals Vital Signs Date Time Temp Pulse Resp B/P Pulse Ox O2 Delivery O2 Flow Rate FiO2 08/27/16 12:00 96.7 87 17 96/57 97 08/27/16 08:00 96.4 70 17 117/64 97 08/27/16 00:22 97.4 98 20 119/59 96 08/26/16 20:19 96.9 89 20 138/74 96 08/26/16 17:40 97.3 78 20 119/60 96 I/O 08/26/16 08/26/16 08/26/16 08/27/16 08/27/16 08/27/16 07:00 15:00 23:00 07:00 15:00 23:00 Intake Total 720 ml 480 ml 0 ml Output Total 1000 ml 1600 ml 900 ml Balance -1000 ml 720 ml -1120 ml -900 ml Intake Oral 720 ml 480 ml IV Total 0 ml 0 ml Output Urine Total 1000 ml 1500 ml 700 ml Stool Total 100 ml 200 ml # Bowel Movements 1 Result Diagram: 08/26/162035 Objective Remarks GENERAL: Well-developed, well-nourished, in no acute distress. alert and orientated HEENT: Head is normocephalic without any lesions or masses noted. Facial features are symmetric. Eyes: Extraocular muscles are intact. Conjunctivae were clear. NECK: Supple without any masses. Trachea midline no deviation. No JVD, CARDIAC: Regular rhythm, regular rate. S1/S2 are heard. No murmurs gallops or rubs. LUNGS: Clear to auscultation bilaterally. No wheeze, rhonchi or rales. No use of accessory muscles on inspiration or expiration. ABDOMEN: Soft, nontender. Nondistended. Bowel sounds heard in all 4 quadrants. Suprapubic catheter in place without any signs of infection. Colostomy noted EXTREMITIES: No edema, pulses are equal bilaterally. No cyanosis or clubbing NEUROLOGY: Mood and affect appear appropriate. Cranial nerves II through XII grossly intact. SKIN: Right sided hip has nice clean area no signs of any wound or drainage at this time. Left hip shows in gauze Procedures none Date of Insertion: Aug 10, 2016 A/P Problem List: (1) Sacral decubitus ulcer ICD Code: L89.159 Status: Chronic (2) Urinary tract infection due to Proteus ICD Code: N39.0 Status: Resolved (3) Constipation ICD Code: K59.00 Status: Resolved (4) Paraplegia ICD Code: G82.20 Status: Chronic (5) Neurogenic bladder ICD Code: N31.9 Status: Chronic Assessment and Plan 08/27/16: Plan for surgery by plastic surgery and Dr. Gruber today Mr. Byrd is a 35-year-old male with PMH of Anxiety, Paraplegia, Neurogenic Bladder s/p Suprapubic Cath, Chronic UTI and Chronic Sacral Decubitus Ulcer who presented for evaluation of sacral wound. Stage IV Chronic Sacral, trochanter, scrotal Ulcer, Present at time of admission. Recent admit 05/02-05/10 for same, s/p eval by ID and IV Abx, arrangements made for Home Health at time of d/c however pt reports difficulty obtaining care , currently homeless. Patient referred to ED by PCP for assistance with chronic wound management. Wound culture grew MRSA, likely colonized from superficial swab. No further antibiotics for sacral wounds per ID. Wound care nurse consulted, appreciate recommendations, orders for dressing changes placed. Continue recommendations per plastic surgery. Possible need for surgery Pain control Dilaudid at home for pain control, continue oral Dilaudid 2-4 mg as needed. E Coli/Proteus complicated urinary tract infection: Suprapubic catheter was changed at that time and being changed on a monthly basis Patient with multiple urinary tract infections during his stay in the hospital , infectious disease was following to this day. No longer receiving antibiotics at this time. Continue monitor closely for signs of infection Bowel regimen with history of constipation. Monitor ostomy output. Whitney-Colace daily, Dulcolax as needed Neurogenic Bladder: Secondary to Paraplegia. Suprapubic catheter changed 08/10/16 Paraplegia: At baseline. Continue home medications. Trapeze setup in place Multi-Podus boots PT eval, recommends SNF, case management assisting. --Consulted OT who made recommendations for wheelchair. Recommendations given to case management to obtain wheelchair for patient DVT Prophylaxis: SCD/Teds/lovenox. Problem Qualifiers (1) Sacral decubitus ulcer: Qualified Code: L89.154 - Decubitus ulcer of sacral region, stage 4 Jose Holley MD Aug 27, 2016 13:49
[2016-08-27] MEDS ORDERED: ceFAZolin 2 GM PREMIX 50 ML ONE (15:22)
[2016-08-27] MEDS ORDERED: KETAMINE HCL 500 MG/5 ML VIAL ONE (15:32)
[2016-08-27] MEDS ORDERED: MIDAZOLAM HCL 2 MG/2 ML VIAL ONE (15:32)
[2016-08-27] MEDS ORDERED: fentaNYL CITRATE 250 MCG/5 ML AMP ONE (15:33)
[2016-08-27] MEDS ORDERED: HYDROmorphone HCL PF 2 MG/ML VIAL ONE (15:33)
[2016-08-27] MEDS ORDERED: *MEPERIDINE 25 MG INJ VIAL PERIprocedural Use ONLY ONE (16:58)
[2016-08-27] MEDS ORDERED: *HYDROmorphone PF 1 MG VIAL PERIprocedural Use ONLY ONE (17:16)
[2016-08-27] MEDS ORDERED: DO NOT ADM ANY ANTICOAGULANT DRUGS XX PRN (17:30)
[2016-08-27 18:00] VITALS: BP 120/61; PULSE 77; RESP 16; TEMP 96; O2SAT 98
[2016-08-27] MEDS: LACTATED RINGER'S 1000 ML IV SCH (18:04)
[2016-08-27 20:07] VITALS: BP 122/80; PULSE 89; RESP 18; TEMP 97.2; O2SAT 98
[2016-08-27] MEDS: ALPRAZolam 1 MG TAB PO PRN (20:27)
[2016-08-27 23:55] VITALS: BP 114/55; PULSE 98; RESP 18; TEMP 98.2; O2SAT 98
[2016-08-28] MEDS: oxyCODONE/ACETAMINOPHEN 7.5 MG/325 MG TAB PO PRN ×5 (05:21→21:00)
[2016-08-28 08:00] VITALS: BP 107/57; PULSE 78; RESP 17; TEMP 96; O2SAT 96
[2016-08-28] MEDS: HYDROCORTISONE 1% CREAM 30 GM TOPICAL SCH (09:00)
[2016-08-28] MEDS: PANTOPRAZOLE SOD 40 MG DELAYED RELEASE TAB PO SCH (09:15)
[2016-08-28] MEDS: DOCUSATE SODIUM 50 MG/SENNA 8.6 MG TAB PO SCH (09:15)
[2016-08-28] MEDS: GABAPENTIN 400 MG CAP PO SCH ×3 (09:15→17:43)
[2016-08-28] MEDS: FERROUS SULFATE 325 MG (65 MG ELEMENTAL IRON) TAB PO SCH ×2 (09:15→17:44)
[2016-08-28] MEDS: SODIUM HYPOCHLORITE 0.125% 500 ML BTL TOPICAL SCH ×2 (09:16→20:49)
[2016-08-28] MEDS: LACTIC ACID (AMMONIUM LACTATE) 12% LOTION 225 GM BTL TOPICAL SCH ×2 (09:16→20:49)
[2016-08-28] MEDS: HYDROmorphone HCL 2 MG TAB PO PRN (11:39)
--- NOTE | 2016-08-28 13:05 | HHI.PR ---
Subjective Remarks Laying in bed, he is status post debridement of the saccule and ischium ulcer Stated his pain is around 9 however when I entered the room he was called almost sleeping She is afebrile Objective Vitals Vital Signs Date Time Temp Pulse Resp B/P Pulse Ox O2 Delivery O2 Flow Rate FiO2 08/28/16 08:00 96.0 78 17 107/57 96 08/27/16 23:55 98.2 98 18 114/55 98 08/27/16 21:19 21 08/27/16 20:07 97.2 89 18 122/80 98 08/27/16 18:00 96.0 77 16 120/61 98 08/27/16 17:35 97.6 77 22 111/53 94 Room Air 08/27/16 17:30 77 22 111/53 94 Room Air 08/27/16 17:15 71 22 125/60 97 Room Air 08/27/16 17:00 75 22 119/84 97 Room Air 08/27/16 16:53 97.4 81 22 116/82 96 Nasal Cannula 2 I/O 08/27/16 08/27/16 08/27/16 08/28/16 08/28/16 08/28/16 07:00 15:00 23:00 07:00 15:00 23:00 Intake Total 0 ml 0 ml 1380 ml 280 ml Output Total 900 ml 400 ml 1125 ml 600 ml Balance -900 ml -400 ml 255 ml -320 ml Intake Oral 0 ml 480 ml 280 ml IV Total 0 ml 200 ml 0 ml Other 700 ml Output Urine Total 700 ml 400 ml 955 ml 500 ml Stool Total 200 ml 150 ml 100 ml Estimated Blood Loss 20 ml # Bowel Movements 1 Result Diagram: 08/26/162035 Objective Remarks GENERAL: Well-developed, well-nourished, in no acute distress. alert and orientated HEENT: Head is normocephalic without any lesions or masses noted. Facial features are symmetric. Eyes: Extraocular muscles are intact. Conjunctivae were clear. NECK: Supple without any masses. Trachea midline no deviation. No JVD, CARDIAC: Regular rhythm, regular rate. S1/S2 are heard. No murmurs gallops or rubs. LUNGS: Clear to auscultation bilaterally. No wheeze, rhonchi or rales. No use of accessory muscles on inspiration or expiration. ABDOMEN: Soft, nontender. Nondistended. Bowel sounds heard in all 4 quadrants. Suprapubic catheter in place without any signs of infection. Colostomy noted EXTREMITIES: No edema, pulses are equal bilaterally. No cyanosis or clubbing NEUROLOGY: Mood and affect appear appropriate, awake alert oriented SKIN: Right sided hip has nice clean area no signs of any wound or drainage at this time. Left hip in gauze Procedures Debridement Date of Insertion: Aug 10, 2016 A/P Problem List: (1) Sacral decubitus ulcer ICD Code: L89.159 Status: Chronic (2) Urinary tract infection due to Proteus ICD Code: N39.0 Status: Resolved (3) Constipation ICD Code: K59.00 Status: Resolved (4) Paraplegia ICD Code: G82.20 Status: Chronic (5) Neurogenic bladder ICD Code: N31.9 Status: Chronic Assessment and Plan 08/27/16: Plan for surgery by plastic surgery and Dr. Gruber today 08/28/16: Doing well status post debridement saccum and ischium by plastic surgeon , postop pain management A/P: Mr. Byrd is a 35-year-old male with PMH of Anxiety, Paraplegia, Neurogenic Bladder s/p Suprapubic Cath, Chronic UTI and Chronic Sacral Decubitus Ulcer who presented for evaluation of sacral wound. Stage IV Chronic Sacral, trochanter, scrotal Ulcer, Present at time of admission. Recent admit 05/02-05/10 for same, s/p eval by ID and IV Abx, arrangements made for Home Health at time of d/c however pt reports difficulty obtaining care , currently homeless. Patient referred to ED by PCP for assistance with chronic wound management. Wound culture grew MRSA, likely colonized from superficial swab. No further antibiotics for sacral wounds per ID. Wound care nurse consulted, appreciate recommendations, orders for dressing changes placed. Continue recommendations per plastic surgery. Possible need for surgery Pain control Dilaudid at home for pain control, continue oral Dilaudid 2-4 mg as needed. E Coli/Proteus complicated urinary tract infection: Suprapubic catheter was changed at that time and being changed on a monthly basis Patient with multiple urinary tract infections during his stay in the hospital , infectious disease was following to this day. No longer receiving antibiotics at this time. Continue monitor closely for signs of infection Bowel regimen with history of constipation. Monitor ostomy output. Whitney-Colace daily, Dulcolax as needed Neurogenic Bladder: Secondary to Paraplegia. Suprapubic catheter changed 08/10/16 Paraplegia: At baseline. Continue home medications. Trapeze setup in place Multi-Podus boots PT eval, recommends SNF, case management assisting. --Consulted OT who made recommendations for wheelchair. Recommendations given to case management to obtain wheelchair for patient DVT Prophylaxis: SCD/Teds/lovenox. Problem Qualifiers (1) Sacral decubitus ulcer: Qualified Code: L89.154 - Decubitus ulcer of sacral region, stage 4 Jose Holley MD Aug 28, 2016 13:05
[2016-08-28 16:00] VITALS: BP 132/65; PULSE 86; RESP 17; TEMP 97.9; O2SAT 96
[2016-08-28] MEDS: ENOXAPARIN SODIUM 40 MG/0.4 ML SYRINGE SQ SCH (17:43)
[2016-08-28] MEDS: LACTATED RINGER'S 1000 ML IV SCH (18:30)
[2016-08-28 20:00] VITALS: BP 129/72; PULSE 89; RESP 18; TEMP 97.4; O2SAT 96
[2016-08-28] MEDS: ALPRAZolam 1 MG TAB PO PRN (21:00)
[2016-08-29] VITALS: BP 133/77; PULSE 92; RESP 16; TEMP 98.3; O2SAT 96
[2016-08-29] MEDS: oxyCODONE/ACETAMINOPHEN 7.5 MG/325 MG TAB PO PRN ×5 (01:07→21:27)
[2016-08-29 08:00] VITALS: BP 112/62; PULSE 76; RESP 17; TEMP 96.5; O2SAT 95
[2016-08-29] MEDS: FERROUS SULFATE 325 MG (65 MG ELEMENTAL IRON) TAB PO SCH ×2 (08:24→16:07)
[2016-08-29] MEDS: GABAPENTIN 400 MG CAP PO SCH ×3 (08:24→16:07)
[2016-08-29] MEDS: DOCUSATE SODIUM 50 MG/SENNA 8.6 MG TAB PO SCH (08:24)
[2016-08-29] MEDS: ALPRAZolam 1 MG TAB PO PRN ×2 (08:24→21:29)
[2016-08-29] MEDS: PANTOPRAZOLE SOD 40 MG DELAYED RELEASE TAB PO SCH (08:24)
[2016-08-29] MEDS: SODIUM HYPOCHLORITE 0.125% 500 ML BTL TOPICAL SCH ×2 (08:25→21:32)
[2016-08-29] MEDS: LACTIC ACID (AMMONIUM LACTATE) 12% LOTION 225 GM BTL TOPICAL SCH ×2 (08:26→21:32)
[2016-08-29] MEDS: HYDROCORTISONE 1% CREAM 30 GM TOPICAL SCH (08:26)
--- NOTE | 2016-08-29 09:54 | MP ---
cc: BG GRUBER DATE OF SURGERY: 08/27/2016 PREOPERATIVE DIAGNOSIS Multiple chronic decubitus: 1. Left trochanter 2. Sacrum. 3. Right ischium. 4. Base of scrotal wound. POSTOPERATIVE DIAGNOSIS Multiple chronic decubitus: 1. Left trochanter 2. Sacrum. 3. Right ischium. 4. Base of scrotal wound. OPERATION Excision and debridement of above. SURGEON Dr. Gruber ANESTHESIA General. INDICATIONS A 35-year-old black male with paraplegia of longstanding with numerous decubitus, numerous debridements, failed attempts at local flaps and currently in the hospital since May 2016. The wounds have cleaned up fairly well with the local treatments. There are chronic scarred tracts that are preventing any further healing and they can be excised. The patient is also having issues with facility placement. Other than that no medical issues. The patient was explained the nature of the surgery being mostly excisional debridement, no immediate reconstruction plans. He agrees with the same. He is aware of the possibility of general risk and complications including bleeding, prolonged wound care might be needed, future surgeries may also be needed. PROCEDURE The patient was brought to the operating room, was given supine position. Anesthesia was started. Prep and drape was done. IV antibiotic had been given. The patient was operated in the prone position with adequate padding. The timeout was called and completed. The areas of the decubitus were identified. The large one is actually on the left trochanter somewhat grazing directly into the ischial area, however, the ischium itself is fully covered with soft tissue. The sacrum is a cavity about the size of a large grape, again heavily lined with chronic scar tissue. The right ischium wound is more medial to the ischium. It is actually more superficial. There is a fair amount of tissue coverage over the ischial bone itself. The wound is approximately 4 x 3 cm and full of granulation and again scar tissue base. The last area noted is horizontally across the posterior part of the scrotum base, again heavy granulation tissue and chronic scar tissue. The areas were injected with saline and lidocaine with epinephrine in tumescent solution to allow better dissection and also in part hemostasis. Excision of all the areas was carried out taking about a centimeter on either side of the chronically scarred edges to the junction between the normal soft tissue transition and the entire scar tissue base was meticulously excised in all the areas. Hemostasis was completed with coagulation cautery for the most part. No arterial vessels were encountered. Intraoperative blood loss 15-20 cc. No complications. All the areas were packed with Betadine-soaked Master bandage. The patient remained stable. signed, not fully reviewed MD HARRIETT Sands/BEBETO /4:36 PM /9:39 AM MTDD
--- NOTE | 2016-08-29 11:19 | HHI.PR ---
Subjective Remarks Patient is very sleepy and somnolent he woke up to voice but when right back to sleep I discussed with the nurse he was given 1 mg of Ativan for anxiety last night No acute issue is post debridement of his sacrum and ischium Objective Vitals Vital Signs Date Time Temp Pulse Resp B/P Pulse Ox O2 Delivery O2 Flow Rate FiO2 08/29/16 09:24 17 08/29/16 08:00 96.5 76 17 112/62 95 08/29/16 00:00 98.3 92 16 133/77 96 08/28/16 20:00 97.4 89 18 129/72 96 08/28/16 16:00 97.9 86 17 132/65 96 I/O 08/28/16 08/28/16 08/28/16 08/29/16 08/29/16 08/29/16 07:00 15:00 23:00 07:00 15:00 23:00 Intake Total 280 ml 240 ml 360 ml 480 ml Output Total 600 ml 800 ml 800 ml 750 ml Balance -320 ml -560 ml -440 ml -270 ml Intake Oral 280 ml 240 ml 360 ml 480 ml IV Total 0 ml 0 ml Output Urine Total 500 ml 800 ml 400 ml 750 ml Stool Total 100 ml 400 ml 0 ml Drainage Total 0 ml 0 ml # Bowel Movements 2 Result Diagram: 08/26/162035 Objective Remarks GENERAL: Well-developed, well-nourished, in no acute distress. alert and orientated HEENT: Head is normocephalic without any lesions or masses noted. Facial features are symmetric. Eyes: Extraocular muscles are intact. Conjunctivae were clear. NECK: Supple without any masses. Trachea midline no deviation. No JVD, CARDIAC: Regular rhythm, regular rate. S1/S2 are heard. No murmurs gallops or rubs. LUNGS: Clear to auscultation bilaterally. No wheeze, rhonchi or rales. No use of accessory muscles on inspiration or expiration. ABDOMEN: Soft, nontender. Nondistended. Bowel sounds heard in all 4 quadrants. Suprapubic catheter in place without any signs of infection. Colostomy noted EXTREMITIES: No edema, pulses are equal bilaterally. No cyanosis or clubbing NEUROLOGY: Mood and affect appear appropriate, awake alert oriented SKIN: Right sided hip has nice clean area no signs of any wound or drainage at this time. Left hip in gauze Procedures Debridement Date of Insertion: Aug 10, 2016 A/P Problem List: (1) Sacral decubitus ulcer ICD Code: L89.159 Status: Chronic (2) Urinary tract infection due to Proteus ICD Code: N39.0 Status: Resolved (3) Constipation ICD Code: K59.00 Status: Resolved (4) Paraplegia ICD Code: G82.20 Status: Chronic (5) Neurogenic bladder ICD Code: N31.9 Status: Chronic Assessment and Plan 08/27/16: Plan for surgery by plastic surgery and Dr. Gruber today 08/28/16: Doing well status post debridement saccum and ischium by plastic surgeon , postop pain management 08/29/16: Patient is somnolent today, continue current care A/P: Mr. Byrd is a 35-year-old male with PMH of Anxiety, Paraplegia, Neurogenic Bladder s/p Suprapubic Cath, Chronic UTI and Chronic Sacral Decubitus Ulcer who presented for evaluation of sacral wound. Stage IV Chronic Sacral, trochanter, scrotal Ulcer, Present at time of admission. Recent admit 05/02-05/10 for same, s/p eval by ID and IV Abx, arrangements made for Home Health at time of d/c however pt reports difficulty obtaining care , currently homeless. Patient referred to ED by PCP for assistance with chronic wound management. Wound culture grew MRSA, likely colonized from superficial swab. No further antibiotics for sacral wounds per ID. Wound care nurse consulted, appreciate recommendations, orders for dressing changes placed. Continue recommendations per plastic surgery. Possible need for surgery Pain control Dilaudid at home for pain control, continue oral Dilaudid 2-4 mg as needed. E Coli/Proteus complicated urinary tract infection: Suprapubic catheter was changed at that time and being changed on a monthly basis Patient with multiple urinary tract infections during his stay in the hospital , infectious disease was following to this day. No longer receiving antibiotics at this time. Continue monitor closely for signs of infection Bowel regimen with history of constipation. Monitor ostomy output. Whitney-Colace daily, Dulcolax as needed Neurogenic Bladder: Secondary to Paraplegia. Suprapubic catheter changed 08/10/16 Paraplegia: At baseline. Continue home medications. Trapeze setup in place Multi-Podus boots PT eval, recommends SNF, case management assisting. --Consulted OT who made recommendations for wheelchair. Recommendations given to case management to obtain wheelchair for patient DVT Prophylaxis: SCD/Teds/lovenox. Problem Qualifiers (1) Sacral decubitus ulcer: Qualified Code: L89.154 - Decubitus ulcer of sacral region, stage 4 Jose Holley MD Aug 29, 2016 11:19
[2016-08-29 11:43] VITALS: O2SAT 94
[2016-08-29 12:00] VITALS: BP 116/61; PULSE 85; RESP 17; TEMP 97.4; O2SAT 96
[2016-08-29 16:00] VITALS: BP 121/57; PULSE 73; RESP 18; TEMP 96.9; O2SAT 96
[2016-08-29] MEDS: ENOXAPARIN SODIUM 40 MG/0.4 ML SYRINGE SQ SCH (16:07)
[2016-08-29] MEDS: LACTATED RINGER'S 1000 ML IV SCH (18:18)
[2016-08-29 20:00] VITALS: BP 125/66; PULSE 87; RESP 16; TEMP 97.4; O2SAT 97
[2016-08-30] VITALS: BP 127/68; PULSE 91; RESP 15; TEMP 96.9; O2SAT 96
[2016-08-30] MEDS: oxyCODONE/ACETAMINOPHEN 7.5 MG/325 MG TAB PO PRN ×6 (01:15→22:34)
[2016-08-30] MEDS: ALPRAZolam 1 MG TAB PO PRN (06:20)
[2016-08-30 08:00] VITALS: BP 116/73; PULSE 92; RESP 17; TEMP 96.5; O2SAT 96
[2016-08-30] MEDS: FERROUS SULFATE 325 MG (65 MG ELEMENTAL IRON) TAB PO SCH ×2 (08:27→18:02)
[2016-08-30] MEDS: PANTOPRAZOLE SOD 40 MG DELAYED RELEASE TAB PO SCH (08:27)
[2016-08-30] MEDS: SODIUM HYPOCHLORITE 0.125% 500 ML BTL TOPICAL SCH ×2 (08:27→21:00)
[2016-08-30] MEDS: DOCUSATE SODIUM 50 MG/SENNA 8.6 MG TAB PO SCH (08:27)
[2016-08-30] MEDS: GABAPENTIN 400 MG CAP PO SCH ×3 (08:27→18:02)
[2016-08-30] MEDS: LACTIC ACID (AMMONIUM LACTATE) 12% LOTION 225 GM BTL TOPICAL SCH ×2 (08:27→22:35)
[2016-08-30] MEDS: HYDROCORTISONE 1% CREAM 30 GM TOPICAL SCH (08:28)
[2016-08-30] MEDS: HYDROmorphone HCL PF 1 MG/ML VIAL IV PUSH PRN (09:44)
[2016-08-30 12:00] VITALS: BP 120/70; PULSE 90; RESP 17; TEMP 95.5; O2SAT 96
--- NOTE | 2016-08-30 14:59 | HHI.PR ---
Subjective Remarks Changing wound VAC today He is afebrile, pain is tolerable with the medication, we'll give extra dose during wound VAC change Objective Vitals Vital Signs Date Time Temp Pulse Resp B/P Pulse Ox O2 Delivery O2 Flow Rate FiO2 08/30/16 12:00 95.5 90 17 120/70 96 08/30/16 11:28 17 08/30/16 10:14 17 08/30/16 08:00 96.5 92 17 116/73 96 08/30/16 00:00 96.9 91 15 127/68 96 08/29/16 20:00 97.4 87 16 125/66 97 08/29/16 18:10 21 08/29/16 16:00 96.9 73 18 121/57 96 I/O 08/29/16 08/29/16 08/29/16 08/30/16 08/30/16 08/30/16 07:00 15:00 23:00 07:00 15:00 23:00 Intake Total 480 ml 340 ml 620 ml 240 ml 900 ml Output Total 750 ml 950 ml 450 ml 455 ml 810 ml Balance -270 ml -610 ml 170 ml -215 ml 90 ml Intake Oral 480 ml 340 ml 620 ml 240 ml 900 ml IV Total 0 ml 0 ml 0 ml 0 ml Output Urine Total 750 ml 900 ml 450 ml 450 ml 800 ml Stool Total 0 ml 0 ml Drainage Total 0 ml 50 ml 0 ml 5 ml 10 ml # Bowel Movements 1 50 0 Result Diagram: 08/26/162035 Objective Remarks GENERAL: Well-developed, well-nourished, in no acute distress. alert and orientated HEENT: Head is normocephalic without any lesions or masses noted. Facial features are symmetric. Eyes: Extraocular muscles are intact. Conjunctivae were clear. NECK: Supple without any masses. Trachea midline no deviation. No JVD, CARDIAC: Regular rhythm, regular rate. S1/S2 are heard. No murmurs gallops or rubs. LUNGS: Clear to auscultation bilaterally. No wheeze, rhonchi or rales. No use of accessory muscles on inspiration or expiration. ABDOMEN: Soft, nontender. Nondistended. Bowel sounds heard in all 4 quadrants. Suprapubic catheter in place without any signs of infection. Colostomy noted EXTREMITIES: No edema, pulses are equal bilaterally. No cyanosis or clubbing NEUROLOGY: Mood and affect appear appropriate, awake alert oriented SKIN: Right sided hip has nice clean area no signs of any wound or drainage at this time. Left hip in gauze Procedures Debridement Date of Insertion: Aug 10, 2016 A/P Problem List: (1) Sacral decubitus ulcer ICD Code: L89.159 Status: Chronic (2) Urinary tract infection due to Proteus ICD Code: N39.0 Status: Resolved (3) Constipation ICD Code: K59.00 Status: Resolved (4) Paraplegia ICD Code: G82.20 Status: Chronic (5) Neurogenic bladder ICD Code: N31.9 Status: Chronic Assessment and Plan A/P: Mr. Byrd is a 35-year-old male with PMH of Anxiety, Paraplegia, Neurogenic Bladder s/p Suprapubic Cath, Chronic UTI and Chronic Sacral Decubitus Ulcer who presented for evaluation of sacral wound. Stage IV Chronic Sacral, trochanter, scrotal Ulcer, Present at time of admission. Recent admit 05/02-05/10 for same, s/p eval by ID and IV Abx, arrangements made for Home Health at time of d/c however pt reports difficulty obtaining care , currently homeless. Patient referred to ED by PCP for assistance with chronic wound management. Wound culture grew MRSA, likely colonized from superficial swab. No further antibiotics for sacral wounds per ID. Wound care nurse consulted, appreciate recommendations, orders for dressing changes placed. Continue recommendations per plastic surgery. Possible need for surgery Pain control Dilaudid at home for pain control, continue oral Dilaudid 2-4 mg as needed. -Wound VAC dressing change on E Coli/Proteus complicated urinary tract infection: Suprapubic catheter was changed at that time and being changed on a monthly basis Patient with multiple urinary tract infections during his stay in the hospital , infectious disease was following to this day. No longer receiving antibiotics at this time. Continue monitor closely for signs of infection Bowel regimen with history of constipation. Monitor ostomy output. Whitney-Colace daily, Dulcolax as needed Neurogenic Bladder: Secondary to Paraplegia. Suprapubic catheter changed 08/10/16 Paraplegia: At baseline. Continue home medications. Trapeze setup in place Multi-Podus boots PT eval, recommends SNF, case management assisting. --Consulted OT who made recommendations for wheelchair. Recommendations given to case management to obtain wheelchair for patient DVT Prophylaxis: SCD/Teds/lovenox. Problem Qualifiers (1) Sacral decubitus ulcer: Qualified Code: L89.154 - Decubitus ulcer of sacral region, stage 4 Jose Holley MD Aug 30, 2016 14:58
[2016-08-30 16:00] VITALS: BP 117/72; PULSE 97; RESP 17; TEMP 96.7; O2SAT 96
[2016-08-30] MEDS: ENOXAPARIN SODIUM 40 MG/0.4 ML SYRINGE SQ SCH (16:15)
[2016-08-30] MEDS: LACTATED RINGER'S 1000 ML IV SCH (18:02)
[2016-08-30 20:07] VITALS: BP 129/65; PULSE 100; RESP 20; TEMP 98.3; O2SAT 97
[2016-08-31 00:06] VITALS: BP 135/73; PULSE 102; RESP 18; TEMP 98.1; O2SAT 98
[2016-08-31] MEDS: oxyCODONE/ACETAMINOPHEN 7.5 MG/325 MG TAB PO PRN ×5 (02:23→20:29)
[2016-08-31 06:20] VITALS: BP 170/89; PULSE 99
[2016-08-31 08:00] VITALS: BP 119/70; PULSE 84; RESP 17; TEMP 97.5; O2SAT 95
[2016-08-31] MEDS: DOCUSATE SODIUM 50 MG/SENNA 8.6 MG TAB PO SCH (08:03)
[2016-08-31] MEDS: GABAPENTIN 400 MG CAP PO SCH ×3 (08:03→17:32)
[2016-08-31] MEDS: PANTOPRAZOLE SOD 40 MG DELAYED RELEASE TAB PO SCH (08:03)
[2016-08-31] MEDS: FERROUS SULFATE 325 MG (65 MG ELEMENTAL IRON) TAB PO SCH ×2 (08:03→17:32)
[2016-08-31] MEDS: LACTIC ACID (AMMONIUM LACTATE) 12% LOTION 225 GM BTL TOPICAL SCH ×2 (08:04→20:29)
[2016-08-31] MEDS: SODIUM HYPOCHLORITE 0.125% 500 ML BTL TOPICAL SCH (08:04)
[2016-08-31] MEDS: HYDROCORTISONE 1% CREAM 30 GM TOPICAL SCH (08:08)
--- NOTE | 2016-08-31 11:14 | HHI.PR ---
Subjective Remarks Follow-up Stage IV Chronic Sacral, trochanter, scrotal Ulcer 08/31/16-patient seen and examined; currently afebrile. Requesting more narcotics for poorly controlled pain. Otherwise stable Objective Vitals Vital Signs Date Time Temp Pulse Resp B/P Pulse Ox O2 Delivery O2 Flow Rate FiO2 08/31/16 06:20 99 170/89 08/31/16 00:06 98.1 102 18 135/73 98 08/30/16 20:07 98.3 100 20 129/65 97 08/30/16 16:00 96.7 97 17 117/72 96 08/30/16 15:56 17 08/30/16 12:00 95.5 90 17 120/70 96 I/O 08/30/16 08/30/16 08/30/16 08/31/16 08/31/16 08/31/16 07:00 15:00 23:00 07:00 15:00 23:00 Intake Total 240 ml 900 ml 480 ml 360 ml Output Total 455 ml 810 ml 1200 ml 950 ml Balance -215 ml 90 ml -720 ml -590 ml Intake Oral 240 ml 900 ml 480 ml 360 ml IV Total 0 ml 0 ml Output Urine Total 450 ml 800 ml 1000 ml 800 ml Stool Total 0 ml 200 ml 100 ml Drainage Total 5 ml 10 ml 50 ml # Bowel Movements 0 Imaging Last Impressions Abdomen X-Ray 07/09/16 1518 Signed Impressions: Service Date/Time: Saturday, July 09, 2016 17:06 - CONCLUSION: 1. Moderate amount of stool. 2. No dilated loops of bowel or pneumoperitoneum. 3. Bilateral hip dysplasia. Wes Callejas Jr., MD Chest X-Ray 06/08/16 1341 Signed Impressions: Service Date/Time: May 14:46 - CONCLUSION: No acute cardiopulmonary abnormality is identified. Luis Felipe Guerra MD Abdomen/Pelvis CT 06/08/16 1341 Signed Impressions: Service Date/Time: May 18:40 - CONCLUSION: 1. The balloon portion of the suprapubic catheter is inside the prosthetic urethra. 2. Probable hepatic hemangioma. Ryanne Maya MD Objective Remarks GENERAL: NAD quadriplegic SKIN: Stage IV Chronic Sacral, trochanter, scrotal Ulcer HEAD: Normocephalic. EYES: No scleral icterus. No injection or drainage. NECK: Supple, trachea midline. No JVD or lymphadenopathy. CARDIOVASCULAR: Regular rate and rhythm without murmurs, gallops, or rubs. RESPIRATORY: Breath sounds equal bilaterally. No accessory muscle use. GASTROINTESTINAL: Abdomen soft, non-tender, nondistended. Ostomy in place MUSCULOSKELETAL: No cyanosis, or edema. quadriplegic BACK: Nontender without obvious deformity. No CVA tenderness. Procedures Debridement Date of Insertion: Aug 10, 2016 A/P Problem List: (1) Sacral decubitus ulcer ICD Code: L89.159 Status: Chronic (2) Urinary tract infection due to Proteus ICD Code: N39.0 Status: Resolved (3) Constipation ICD Code: K59.00 Status: Resolved (4) Paraplegia ICD Code: G82.20 Status: Chronic (5) Neurogenic bladder ICD Code: N31.9 Status: Chronic Assessment and Plan 35-year-old male with Stage IV Chronic Sacral, trochanter, scrotal Ulcer, Present at time of admission. s/p eval by ID and IV Abx, arrangements made for Home Health at time of d/c however pt reports difficulty obtaining care, currently homeless. Patient referred to ED by PCP for assistance with chronic wound management. Wound culture grew MRSA, likely colonized from superficial swab. No further antibiotics for sacral wounds per ID. Continue recommendations per plastic surgery as well as wound VAC. continue oral Dilaudid 2-4 mg as needed. E Coli/Proteus complicated urinary tract infection: Suprapubic catheter was changed at that time and being changed on a monthly basis No longer receiving antibiotics at this time. Bowel regimen with history of constipation. Monitor ostomy output. Whitney-Colace daily, Dulcolax as needed Neurogenic Bladder: Secondary to Paraplegia. Suprapubic catheter changed 08/10/16 Paraplegia: At baseline. Continue home medications. Trapeze setup in place Multi-Podus boots PT eval, recommends SNF, case management assisting. DVT Prophylaxis: SCD/Teds/lovenox. Problem Qualifiers (1) Sacral decubitus ulcer: Qualified Code: L89.154 - Decubitus ulcer of sacral region, stage 4 Aleksander Gamez MD Aug 31, 2016 11:14
[2016-08-31 12:00] VITALS: BP_SYST 113; BP_SYST 119; BP_DIAS 66; BP_DIAS 70; PULSE 84; PULSE 89; RESP 16; RESP 17; TEMP 96.9; TEMP 97.5; O2SAT 95; O2SAT 99
[2016-08-31] MEDS: ENOXAPARIN SODIUM 40 MG/0.4 ML SYRINGE SQ SCH (15:40)
[2016-08-31 16:00] VITALS: BP 129/72; PULSE 89; RESP 16; TEMP 97.5; O2SAT 97
[2016-08-31] MEDS: LACTATED RINGER'S 1000 ML IV SCH (17:32)
[2016-08-31 20:00] VITALS: BP 124/74; PULSE 91; RESP 20; TEMP 98.5; O2SAT 97
[2016-08-31] MEDS: ALPRAZolam 1 MG TAB PO PRN (21:33)
[2016-09-01] VITALS: BP 119/72; PULSE 101; RESP 20; TEMP 97.5; O2SAT 96
[2016-09-01] MEDS: oxyCODONE/ACETAMINOPHEN 7.5 MG/325 MG TAB PO PRN ×5 (01:00→21:57)
[2016-09-01 08:00] VITALS: BP 116/63; PULSE 94; RESP 17; TEMP 98.7; O2SAT 96
[2016-09-01] MEDS: PANTOPRAZOLE SOD 40 MG DELAYED RELEASE TAB PO SCH (08:39)
[2016-09-01] MEDS: GABAPENTIN 400 MG CAP PO SCH ×3 (08:39→17:27)
[2016-09-01] MEDS: FERROUS SULFATE 325 MG (65 MG ELEMENTAL IRON) TAB PO SCH ×2 (08:39→17:27)
[2016-09-01] MEDS: DOCUSATE SODIUM 50 MG/SENNA 8.6 MG TAB PO SCH (08:39)
[2016-09-01] MEDS: HYDROCORTISONE 1% CREAM 30 GM TOPICAL SCH (08:41)
[2016-09-01] MEDS: LACTIC ACID (AMMONIUM LACTATE) 12% LOTION 225 GM BTL TOPICAL SCH ×2 (08:41→21:58)
[2016-09-01] MEDS: HYDROmorphone HCL PF 1 MG/ML VIAL IV PUSH PRN (10:59)
--- NOTE | 2016-09-01 11:18 | HHI.PR ---
Subjective Remarks Follow-up Stage IV Chronic Sacral, trochanter, scrotal Ulcer 08/31/16-patient seen and examined; currently afebrile. Requesting more narcotics for poorly controlled pain. Otherwise stable 09/01/16-patient seen and examined. Stable. Plan for wound VAC change today Objective Vitals Vital Signs Date Time Temp Pulse Resp B/P Pulse Ox O2 Delivery O2 Flow Rate FiO2 09/01/16 08:00 98.7 94 17 116/63 96 09/01/16 00:00 97.5 101 20 119/72 96 08/31/16 20:00 98.5 91 20 124/74 97 08/31/16 16:00 97.5 89 16 129/72 97 08/31/16 12:00 96.9 89 16 113/66 99 I/O 08/31/16 08/31/16 08/31/16 09/01/16 09/01/16 09/01/16 06:59 14:59 22:59 06:59 14:59 22:59 Intake Total 360 ml 1200 ml 240 ml 240 ml Output Total 950 ml 1452 ml 1325 ml 900 ml Balance -590 ml -252 ml -1085 ml -660 ml Intake Oral 360 ml 1200 ml 240 ml 240 ml Output Urine Total 800 ml 1400 ml 1325 ml 850 ml Stool Total 100 ml 2 ml Drainage Total 50 ml 50 ml 0 ml 50 ml Objective Remarks GENERAL: NAD quadriplegic SKIN: Stage IV Chronic Sacral, trochanter, scrotal Ulcer HEAD: Normocephalic. EYES: No scleral icterus. No injection or drainage. NECK: Supple, trachea midline. No JVD or lymphadenopathy. CARDIOVASCULAR: Regular rate and rhythm without murmurs, gallops, or rubs. RESPIRATORY: Breath sounds equal bilaterally. No accessory muscle use. GASTROINTESTINAL: Abdomen soft, non-tender, nondistended. Ostomy in place MUSCULOSKELETAL: No cyanosis, or edema. quadriplegic BACK: Nontender without obvious deformity. No CVA tenderness. Procedures Debridement Date of Insertion: Aug 10, 2016 A/P Problem List: (1) Sacral decubitus ulcer ICD Code: L89.159 Status: Chronic (2) Urinary tract infection due to Proteus ICD Code: N39.0 Status: Resolved (3) Constipation ICD Code: K59.00 Status: Resolved (4) Paraplegia ICD Code: G82.20 Status: Chronic (5) Neurogenic bladder ICD Code: N31.9 Status: Chronic Assessment and Plan 35-year-old male with Stage IV Chronic Sacral, trochanter, scrotal Ulcer, Present at time of admission. s/p eval by ID and IV Abx, arrangements made for Home Health at time of d/c however pt reports difficulty obtaining care, currently homeless. Patient referred to ED by PCP for assistance with chronic wound management. Wound culture grew MRSA, likely colonized from superficial swab. No further antibiotics for sacral wounds per ID. Continue recommendations per plastic surgery as well as wound VAC. Plan Wound VAC change today 09/01/16 continue oral Dilaudid 2-4 mg as needed. E Coli/Proteus complicated urinary tract infection: Suprapubic catheter was changed at that time and being changed on a monthly basis completed abx therapy Bowel regimen with history of constipation. Monitor ostomy output. Whitney-Colace daily, Dulcolax as needed Neurogenic Bladder: Secondary to Paraplegia. Suprapubic catheter changed 08/10/16 Paraplegia: At baseline. Continue home medications. Trapeze setup in place Multi-Podus boots PT eval, recommends SNF, case management assisting. DVT Prophylaxis: SCD/Teds/lovenox. Problem Qualifiers (1) Sacral decubitus ulcer: Qualified Code: L89.154 - Decubitus ulcer of sacral region, stage 4 Aleksander Gamez MD Sep 01, 2016 11:18
[2016-09-01 12:00] VITALS: BP 117/67; PULSE 88; RESP 16; TEMP 98; O2SAT 94
[2016-09-01 16:00] VITALS: BP 115/69; PULSE 105; RESP 17; TEMP 98.1; O2SAT 96
[2016-09-01] MEDS: ENOXAPARIN SODIUM 40 MG/0.4 ML SYRINGE SQ SCH (17:27)
[2016-09-01] MEDS: LACTATED RINGER'S 1000 ML IV SCH (17:28)
[2016-09-01 20:00] VITALS: BP 115/67; PULSE 91; RESP 16; TEMP 98.2; O2SAT 97
[2016-09-01] MEDS: ALPRAZolam 1 MG TAB PO PRN (21:58)
[2016-09-02] VITALS: BP 123/76; PULSE 90; RESP 18; TEMP 97.6; O2SAT 97
[2016-09-02] MEDS: oxyCODONE/ACETAMINOPHEN 7.5 MG/325 MG TAB PO PRN ×6 (02:11→22:38)
[2016-09-02 08:00] VITALS: BP 121/67; PULSE 88; RESP 16; TEMP 97.2; O2SAT 98
[2016-09-02] MEDS: PANTOPRAZOLE SOD 40 MG DELAYED RELEASE TAB PO SCH (08:23)
[2016-09-02] MEDS: DOCUSATE SODIUM 50 MG/SENNA 8.6 MG TAB PO SCH (08:23)
[2016-09-02] MEDS: GABAPENTIN 400 MG CAP PO SCH ×3 (08:24→17:51)
[2016-09-02] MEDS: FERROUS SULFATE 325 MG (65 MG ELEMENTAL IRON) TAB PO SCH ×2 (08:24→17:51)
[2016-09-02] MEDS: LACTIC ACID (AMMONIUM LACTATE) 12% LOTION 225 GM BTL TOPICAL SCH ×2 (08:32→20:51)
[2016-09-02] MEDS: HYDROCORTISONE 1% CREAM 30 GM TOPICAL SCH (08:35)
[2016-09-02 12:00] VITALS: BP 110/55; PULSE 90; RESP 17; TEMP 97.8; O2SAT 98
--- NOTE | 2016-09-02 14:04 | HHI.PR ---
Subjective Remarks Follow-up Stage IV Chronic Sacral, trochanter, scrotal Ulcer 08/31/16-patient seen and examined; currently afebrile. Requesting more narcotics for poorly controlled pain. Otherwise stable 09/01/16-patient seen and examined. Stable. Plan for wound VAC change today 09/02/16-patient seen and examined. Afebrile, and no complaint. Plan for wound dressing change today. Objective Vitals Vital Signs Date Time Temp Pulse Resp B/P Pulse Ox O2 Delivery O2 Flow Rate FiO2 09/02/16 12:00 97.8 90 17 110/55 98 09/02/16 08:00 97.2 88 16 121/67 98 09/02/16 00:00 97.6 90 18 123/76 97 09/01/16 20:00 98.2 91 16 115/67 97 09/01/16 16:00 98.1 105 17 115/69 96 I/O 09/01/16 09/01/16 09/01/16 09/02/16 09/02/16 09/02/16 07:00 15:00 23:00 07:00 15:00 23:00 Intake Total 240 ml 720 ml 360 ml 240 ml Output Total 900 ml 875 ml 1400 ml 400 ml Balance -660 ml -155 ml -1040 ml -160 ml Intake Oral 240 ml 720 ml 360 ml 240 ml IV Total 0 ml Output Urine Total 850 ml 850 ml 1400 ml 400 ml Stool Total 0 ml 0 ml Drainage Total 50 ml 25 ml # Bowel Movements 1 1 Objective Remarks GENERAL: NAD quadriplegic SKIN: Stage IV Chronic Sacral, trochanter, scrotal Ulcer HEAD: Normocephalic. EYES: No scleral icterus. No injection or drainage. NECK: Supple, trachea midline. No JVD or lymphadenopathy. CARDIOVASCULAR: Regular rate and rhythm without murmurs, gallops, or rubs. RESPIRATORY: Breath sounds equal bilaterally. No accessory muscle use. GASTROINTESTINAL: Abdomen soft, non-tender, nondistended. Ostomy in place MUSCULOSKELETAL: No cyanosis, or edema. quadriplegic BACK: Nontender without obvious deformity. No CVA tenderness. Procedures Debridement Date of Insertion: Aug 10, 2016 A/P Problem List: (1) Sacral decubitus ulcer ICD Code: L89.159 Status: Chronic (2) Urinary tract infection due to Proteus ICD Code: N39.0 Status: Resolved (3) Constipation ICD Code: K59.00 Status: Resolved (4) Paraplegia ICD Code: G82.20 Status: Chronic (5) Neurogenic bladder ICD Code: N31.9 Status: Chronic Assessment and Plan 35-year-old male with Stage IV Chronic Sacral, trochanter, scrotal Ulcer, Present at time of admission. s/p eval by ID and IV Abx, arrangements made for Home Health at time of d/c however pt reports difficulty obtaining care, currently homeless. Patient referred to ED by PCP for assistance with chronic wound management. Wound culture grew MRSA, likely colonized from superficial swab. No further antibiotics for sacral wounds per ID. Continue recommendations per plastic surgery as well as wound VAC. Plan Wound dressing changed today continue oral Dilaudid 2-4 mg as needed. E Coli/Proteus complicated urinary tract infection: Suprapubic catheter being changed on a monthly basis completed abx therapy Bowel regimen with history of constipation. Monitor ostomy output. Whitney-Colace daily, Dulcolax as needed Neurogenic Bladder: Secondary to Paraplegia. Suprapubic catheter changed 08/10/16 Paraplegia: At baseline. Continue home medications. Trapeze setup in place Multi-Podus boots PT eval, DVT Prophylaxis: SCD/Teds/lovenox. Problem Qualifiers (1) Sacral decubitus ulcer: Qualified Code: L89.154 - Decubitus ulcer of sacral region, stage 4 Aleksander Gamez MD Sep 02, 2016 14:03
[2016-09-02 16:00] VITALS: BP 120/64; PULSE 89; RESP 16; TEMP 97.3; O2SAT 99
[2016-09-02] MEDS: ENOXAPARIN SODIUM 40 MG/0.4 ML SYRINGE SQ SCH (16:30)
[2016-09-02] MEDS: LACTATED RINGER'S 1000 ML IV SCH (18:07)
[2016-09-02 20:00] VITALS: BP 132/73; PULSE 108; RESP 20; TEMP 96.8; O2SAT 95
[2016-09-02] MEDS: ALPRAZolam 1 MG TAB PO PRN (21:02)
[2016-09-03 00:17] VITALS: BP 133/72; PULSE 82; RESP 19; TEMP 97.1; O2SAT 95
[2016-09-03] MEDS: oxyCODONE/ACETAMINOPHEN 7.5 MG/325 MG TAB PO PRN ×5 (03:49→21:42)
[2016-09-03 07:04] LABS: AUTOMATED NEUTROPHIL # 2.7 TH/MM3 (1.8-7.7); BASOPHIL % 0.4 % (0.0-2.0); EOSINOPHIL # 0.3 TH/MM3 (0-0.4); EOSINOPHIL % 3.5 % (0.0-4.0); HEMO FLAGS DIFF FINAL; LYMPH % 51.2 % (9.0-44.0); LYMPHOCYTE # 3.8 TH/MM3 (1.0-4.8); MEAN CELL VOLUME 81.9 FL (80.0-100.0); MEAN CORPUSCULAR HGB CONC 34.2 % (32.0-36.0); MONO % 7.7 % (0.0-8.0); NEUT % 37.2 % (16.0-70.0); PLATELET COUNT 438 TH/MM3 (150-450); RED BLOOD COUNT 4.27 MIL/MM3 (4.50-5.90); RED CELL DISTRIBUTION WIDTH 17.2 % (11.6-17.2); WHITE BLOOD COUNT 7.3 TH/MM3 (4.0-11.0)
[2016-09-03 07:28] LABS: BICARBONATE 25.4 MEQ/L (21.0-32.0); POTASSIUM 3.8 MEQ/L (3.5-5.1)
[2016-09-03 08:00] VITALS: BP 118/67; PULSE 83; RESP 17; TEMP 96.2; O2SAT 97
[2016-09-03] MEDS: GABAPENTIN 400 MG CAP PO SCH ×3 (08:27→16:31)
[2016-09-03] MEDS: PANTOPRAZOLE SOD 40 MG DELAYED RELEASE TAB PO SCH (08:27)
[2016-09-03] MEDS: DOCUSATE SODIUM 50 MG/SENNA 8.6 MG TAB PO SCH (08:27)
[2016-09-03] MEDS: FERROUS SULFATE 325 MG (65 MG ELEMENTAL IRON) TAB PO SCH ×2 (08:28→16:31)
[2016-09-03] MEDS: HYDROCORTISONE 1% CREAM 30 GM TOPICAL SCH (09:37)
[2016-09-03] MEDS: LACTIC ACID (AMMONIUM LACTATE) 12% LOTION 225 GM BTL TOPICAL SCH ×2 (09:37→21:47)
--- NOTE | 2016-09-03 10:27 | HHI.PR ---
Subjective Remarks Follow-up Stage IV Chronic Sacral, trochanter, scrotal Ulcer 08/31/16-patient seen and examined; currently afebrile. Requesting more narcotics for poorly controlled pain. Otherwise stable 09/01/16-patient seen and examined. Stable. Plan for wound VAC change today 09/02/16-patient seen and examined. Afebrile, and no complaint. Plan for wound dressing change today. 09/03/16-patient seen and examined. No change and stable. Objective Vitals Vital Signs Date Time Temp Pulse Resp B/P Pulse Ox O2 Delivery O2 Flow Rate FiO2 09/03/16 08:00 96.2 83 17 118/67 97 09/03/16 00:17 97.1 82 19 133/72 95 09/02/16 20:00 96.8 108 20 132/73 95 09/02/16 16:00 97.3 89 16 120/64 99 09/02/16 12:00 97.8 90 17 110/55 98 I/O 09/02/16 09/02/16 09/02/16 09/03/16 09/03/16 09/03/16 07:00 15:00 23:00 07:00 15:00 23:00 Intake Total 240 ml 600 ml 480 ml 240 ml Output Total 400 ml 701 ml 800 ml 1605 ml Balance -160 ml -101 ml -320 ml -1365 ml Intake Oral 240 ml 600 ml 480 ml 240 ml IV Total 0 ml Output Urine Total 400 ml 700 ml 800 ml 1500 ml Stool Total 0 ml 1 ml 100 ml Drainage Total 5 ml # Bowel Movements 0 Result Diagram: 09/03/16 0532 09/03/16 0532 Objective Remarks GENERAL: NAD quadriplegic SKIN: Stage IV Chronic Sacral, trochanter, scrotal Ulcer HEAD: Normocephalic. EYES: No scleral icterus. No injection or drainage. NECK: Supple, trachea midline. No JVD or lymphadenopathy. CARDIOVASCULAR: Regular rate and rhythm without murmurs, gallops, or rubs. RESPIRATORY: Breath sounds equal bilaterally. No accessory muscle use. GASTROINTESTINAL: Abdomen soft, non-tender, nondistended. Ostomy in place MUSCULOSKELETAL: No cyanosis, or edema. quadriplegic BACK: Nontender without obvious deformity. No CVA tenderness. Procedures Debridement Date of Insertion: Aug 10, 2016 A/P Problem List: (1) Sacral decubitus ulcer ICD Code: L89.159 Status: Chronic (2) Urinary tract infection due to Proteus ICD Code: N39.0 Status: Resolved (3) Constipation ICD Code: K59.00 Status: Resolved (4) Paraplegia ICD Code: G82.20 Status: Chronic (5) Neurogenic bladder ICD Code: N31.9 Status: Chronic Assessment and Plan 35-year-old male with Stage IV Chronic Sacral, trochanter, scrotal Ulcer, Present at time of admission. s/p eval by ID and IV Abx, arrangements made for Home Health at time of d/c however pt reports difficulty obtaining care, currently homeless. Patient referred to ED by PCP for assistance with chronic wound management. Wound culture grew MRSA, likely colonized from superficial swab. No further antibiotics for sacral wounds per ID. Continue recommendations per plastic surgery as well as wound VAC. continue oral Dilaudid 2-4 mg as needed. E Coli/Proteus complicated urinary tract infection: Suprapubic catheter being changed on a monthly basis completed abx therapy Bowel regimen with history of constipation. Monitor ostomy output. Whitney-Colace daily, Dulcolax as needed Neurogenic Bladder: Secondary to Paraplegia. Suprapubic catheter changed 08/10/16 Paraplegia: At baseline. Continue home medications. Trapeze setup in place Multi-Podus boots PT eval, DVT Prophylaxis: SCD/Teds/lovenox. Continue Current care Problem Qualifiers (1) Sacral decubitus ulcer: Qualified Code: L89.154 - Decubitus ulcer of sacral region, stage 4 Aleksander Gamez MD Sep 03, 2016 10:27
[2016-09-03 12:00] VITALS: BP 122/87; PULSE 89; RESP 17; TEMP 95.3; O2SAT 96
[2016-09-03 16:00] VITALS: BP 120/73; PULSE 73; RESP 17; TEMP 94.3; O2SAT 98
[2016-09-03] MEDS: ENOXAPARIN SODIUM 40 MG/0.4 ML SYRINGE SQ SCH (16:31)
[2016-09-03] MEDS: LACTATED RINGER'S 1000 ML IV SCH (18:30)
[2016-09-03 20:00] VITALS: BP 109/83; PULSE 95; RESP 20; TEMP 96; O2SAT 100
[2016-09-03] MEDS: ALPRAZolam 1 MG TAB PO PRN (21:46)
[2016-09-04] VITALS: BP 129/73; PULSE 93; RESP 19; TEMP 97.4; O2SAT 94
[2016-09-04] MEDS: oxyCODONE/ACETAMINOPHEN 7.5 MG/325 MG TAB PO PRN ×5 (01:42→21:37)
[2016-09-04 07:30] VITALS: BP 122/66; PULSE 93; RESP 19; TEMP 96.6; O2SAT 91
[2016-09-04] MEDS: HYDROCORTISONE 1% CREAM 30 GM TOPICAL SCH (09:00)
[2016-09-04] MEDS: PANTOPRAZOLE SOD 40 MG DELAYED RELEASE TAB PO SCH (10:10)
[2016-09-04] MEDS: GABAPENTIN 400 MG CAP PO SCH ×3 (10:10→17:46)
[2016-09-04] MEDS: FERROUS SULFATE 325 MG (65 MG ELEMENTAL IRON) TAB PO SCH ×2 (10:10→17:46)
[2016-09-04] MEDS: DOCUSATE SODIUM 50 MG/SENNA 8.6 MG TAB PO SCH (10:10)
[2016-09-04] MEDS: LACTIC ACID (AMMONIUM LACTATE) 12% LOTION 225 GM BTL TOPICAL SCH ×2 (10:13→21:45)
[2016-09-04 12:00] VITALS: BP 111/67; PULSE 88; RESP 16; TEMP 96.6; O2SAT 96
--- NOTE | 2016-09-04 13:23 | HHI.PR ---
Subjective Remarks Follow-up Stage IV Chronic Sacral, trochanter, scrotal Ulcer 08/31/16-patient seen and examined; currently afebrile. Requesting more narcotics for poorly controlled pain. Otherwise stable 09/01/16-patient seen and examined. Stable. Plan for wound VAC change today 09/02/16-patient seen and examined. Afebrile, and no complaint. Plan for wound dressing change today. 09/03/16-patient seen and examined. No change and stable. 09/04/16-patient seen and examined. Afebrile. No acute event overnight. Wound VAC was changed today Objective Vitals Vital Signs Date Time Temp Pulse Resp B/P Pulse Ox O2 Delivery O2 Flow Rate FiO2 09/04/16 12:00 96.6 88 16 111/67 96 09/04/16 07:30 96.6 93 19 122/66 91 09/04/16 00:00 97.4 93 19 129/73 94 09/03/16 20:00 96.0 95 20 109/83 100 09/03/16 16:00 94.3 73 17 120/73 98 I/O 09/03/16 09/03/16 09/03/16 09/04/16 09/04/16 09/04/16 07:00 15:00 23:00 07:00 15:00 23:00 Intake Total 240 ml 340 ml 240 ml 240 ml Output Total 1605 ml 1050 ml 1000 ml 1550 ml Balance -1365 ml -710 ml -760 ml -1310 ml Intake Oral 240 ml 340 ml 240 ml 240 ml IV Total 0 ml 0 ml Output Urine Total 1500 ml 1000 ml 1000 ml 1500 ml Stool Total 100 ml 0 ml Drainage Total 5 ml 50 ml 0 ml 50 ml # Bowel Movements 0 0 Result Diagram: 09/03/16 0532 09/03/16 0532 Objective Remarks GENERAL: NAD quadriplegic SKIN: Stage IV Chronic Sacral, trochanter, scrotal Ulcer HEAD: Normocephalic. EYES: No scleral icterus. No injection or drainage. NECK: Supple, trachea midline. No JVD or lymphadenopathy. CARDIOVASCULAR: Regular rate and rhythm without murmurs, gallops, or rubs. RESPIRATORY: Breath sounds equal bilaterally. No accessory muscle use. GASTROINTESTINAL: Abdomen soft, non-tender, nondistended. Ostomy in place MUSCULOSKELETAL: No cyanosis, or edema. quadriplegic BACK: Nontender without obvious deformity. No CVA tenderness. Procedures Debridement Date of Insertion: Aug 10, 2016 A/P Problem List: (1) Sacral decubitus ulcer ICD Code: L89.159 Status: Chronic (2) Urinary tract infection due to Proteus ICD Code: N39.0 Status: Resolved (3) Constipation ICD Code: K59.00 Status: Resolved (4) Paraplegia ICD Code: G82.20 Status: Chronic (5) Neurogenic bladder ICD Code: N31.9 Status: Chronic Assessment and Plan 35-year-old male with Stage IV Chronic Sacral, trochanter, scrotal Ulcer, Present at time of admission. s/p eval by ID and IV Abx, arrangements made for Home Health at time of d/c however pt reports difficulty obtaining care, currently homeless. Patient referred to ED by PCP for assistance with chronic wound management. Wound culture grew MRSA, likely colonized from superficial swab. No further antibiotics for sacral wounds per ID. Continue recommendations per plastic surgery as well as wound VAC. continue oral Dilaudid 2-4 mg as needed. E Coli/Proteus complicated urinary tract infection: Suprapubic catheter being changed on a monthly basis completed abx therapy Bowel regimen with history of constipation. Monitor ostomy output. Whitney-Colace daily, Dulcolax as needed Neurogenic Bladder: Secondary to Paraplegia. Suprapubic catheter changed 08/10/16 Paraplegia: At baseline. Continue home medications. Trapeze setup in place Multi-Podus boots PT eval, DVT Prophylaxis: SCD/Teds/lovenox. Continue Current care as of 09/04/16 Problem Qualifiers (1) Sacral decubitus ulcer: Qualified Code: L89.154 - Decubitus ulcer of sacral region, stage 4 Aleksander Gamez MD Sep 04, 2016 13:23
[2016-09-04] MEDS: ENOXAPARIN SODIUM 40 MG/0.4 ML SYRINGE SQ SCH (15:03)
[2016-09-04 16:00] VITALS: BP 123/65; PULSE 101; RESP 17; TEMP 97; O2SAT 99
[2016-09-04] MEDS: HYDROmorphone HCL PF 1 MG/ML VIAL IV PUSH PRN (16:13)
[2016-09-04] MEDS: LACTATED RINGER'S 1000 ML IV SCH (17:47)
[2016-09-04 20:00] VITALS: BP 118/64; PULSE 100; RESP 18; TEMP 97; O2SAT 98
[2016-09-04] MEDS: ALPRAZolam 1 MG TAB PO PRN (21:37)
[2016-09-05] VITALS: BP 120/62; PULSE 96; RESP 20; TEMP 98; O2SAT 97
[2016-09-05] MEDS: oxyCODONE/ACETAMINOPHEN 7.5 MG/325 MG TAB PO PRN ×3 (01:37→21:00)
[2016-09-05 08:00] VITALS: BP 123/70; PULSE 92; RESP 16; TEMP 96.6; O2SAT 98
[2016-09-05] MEDS: LACTIC ACID (AMMONIUM LACTATE) 12% LOTION 225 GM BTL TOPICAL SCH ×2 (09:00→21:00)
[2016-09-05] MEDS: HYDROCORTISONE 1% CREAM 30 GM TOPICAL SCH (09:00)
--- NOTE | 2016-09-05 09:03 | HHI.PR ---
Subjective Remarks Follow-up Stage IV Chronic Sacral, trochanter, scrotal Ulcer 08/31/16-patient seen and examined; currently afebrile. Requesting more narcotics for poorly controlled pain. Otherwise stable 09/01/16-patient seen and examined. Stable. Plan for wound VAC change today 09/02/16-patient seen and examined. Afebrile, and no complaint. Plan for wound dressing change today. 09/03/16-patient seen and examined. No change and stable. 09/04/16-patient seen and examined. Afebrile. No acute event overnight. Wound VAC was changed today 09/05/16-patient seen and examined; no change and stable Objective Vitals Vital Signs Date Time Temp Pulse Resp B/P Pulse Ox O2 Delivery O2 Flow Rate FiO2 09/05/16 00:00 98.0 96 20 120/62 97 09/04/16 20:00 97.0 100 18 118/64 98 09/04/16 16:00 97.0 101 17 123/65 99 09/04/16 12:00 96.6 88 16 111/67 96 I/O 09/04/16 09/04/16 09/04/16 09/05/16 09/05/16 09/05/16 07:00 15:00 23:00 07:00 15:00 23:00 Intake Total 240 ml 840 ml 450 ml Output Total 1550 ml 1400 ml 1000 ml 100 ml Balance -1310 ml -560 ml -550 ml -100 ml Intake Oral 240 ml 840 ml 450 ml Output Urine Total 1500 ml 1400 ml 1000 ml Stool Total 0 ml Drainage Total 50 ml 100 ml # Bowel Movements 1 Result Diagram: 09/03/1632 09/03/1632 Objective Remarks GENERAL: NAD quadriplegic SKIN: Stage IV Chronic Sacral, trochanter, scrotal Ulcer HEAD: Normocephalic. EYES: No scleral icterus. No injection or drainage. NECK: Supple, trachea midline. No JVD or lymphadenopathy. CARDIOVASCULAR: Regular rate and rhythm without murmurs, gallops, or rubs. RESPIRATORY: Breath sounds equal bilaterally. No accessory muscle use. GASTROINTESTINAL: Abdomen soft, non-tender, nondistended. Ostomy in place MUSCULOSKELETAL: No cyanosis, or edema. quadriplegic BACK: Nontender without obvious deformity. No CVA tenderness. Procedures Debridement Date of Insertion: Aug 10, 2016 A/P Problem List: (1) Sacral decubitus ulcer ICD Code: L89.159 Status: Chronic (2) Urinary tract infection due to Proteus ICD Code: N39.0 Status: Resolved (3) Constipation ICD Code: K59.00 Status: Resolved (4) Paraplegia ICD Code: G82.20 Status: Chronic (5) Neurogenic bladder ICD Code: N31.9 Status: Chronic Assessment and Plan 35-year-old male with Stage IV Chronic Sacral, trochanter, scrotal Ulcer, Present at time of admission. s/p eval by ID and IV Abx, arrangements made for Home Health at time of d/c however pt reports difficulty obtaining care, currently homeless. Patient referred to ED by PCP for assistance with chronic wound management. Wound culture grew MRSA, likely colonized from superficial swab. No further antibiotics for sacral wounds per ID. Continue recommendations per plastic surgery as well as wound VAC. continue oral Dilaudid 2-4 mg as needed. E Coli/Proteus complicated urinary tract infection: Suprapubic catheter being changed on a monthly basis completed abx therapy Bowel regimen with history of constipation. Monitor ostomy output. Whitney-Colace daily, Dulcolax as needed Neurogenic Bladder: Secondary to Paraplegia. Suprapubic catheter changed 08/10/16 Paraplegia: At baseline. Continue home medications. Trapeze setup in place Multi-Podus boots PT eval, DVT Prophylaxis: SCD/Teds/lovenox. Continue Current care as of 09/05/16 Problem Qualifiers (1) Sacral decubitus ulcer: Qualified Code: L89.154 - Decubitus ulcer of sacral region, stage 4 Aleksander Gamez MD Sep 05, 2016 09:03
[2016-09-05] MEDS: GABAPENTIN 400 MG CAP PO SCH ×3 (11:44→17:16)
[2016-09-05] MEDS: FERROUS SULFATE 325 MG (65 MG ELEMENTAL IRON) TAB PO SCH ×2 (11:44→17:15)
[2016-09-05] MEDS: DOCUSATE SODIUM 50 MG/SENNA 8.6 MG TAB PO SCH (11:45)
[2016-09-05] MEDS: PANTOPRAZOLE SOD 40 MG DELAYED RELEASE TAB PO SCH (11:45)
[2016-09-05] MEDS: HYDROmorphone HCL 2 MG TAB PO PRN (11:46)
[2016-09-05 12:00] VITALS: BP 119/69; PULSE 90; RESP 16; TEMP 96.3; O2SAT 97
[2016-09-05 16:00] VITALS: BP 124/63; PULSE 100; RESP 17; TEMP 96.4; O2SAT 98
[2016-09-05] MEDS: ENOXAPARIN SODIUM 40 MG/0.4 ML SYRINGE SQ SCH (17:14)
[2016-09-05] MEDS: LACTATED RINGER'S 1000 ML IV SCH (17:16)
[2016-09-05 20:00] VITALS: BP 124/68; PULSE 86; RESP 20; TEMP 97.6; O2SAT 98
[2016-09-05] MEDS: ALPRAZolam 1 MG TAB PO PRN (21:04)
[2016-09-06] VITALS: BP 120/56; PULSE 88; RESP 18; TEMP 97.2; O2SAT 97
[2016-09-06] MEDS: oxyCODONE/ACETAMINOPHEN 7.5 MG/325 MG TAB PO PRN ×5 (01:03→22:08)
[2016-09-06 08:00] VITALS: BP 120/69; PULSE 88; RESP 16; TEMP 96.4; O2SAT 96
[2016-09-06] MEDS: HYDROCORTISONE 1% CREAM 30 GM TOPICAL SCH (08:38)
[2016-09-06] MEDS: LACTIC ACID (AMMONIUM LACTATE) 12% LOTION 225 GM BTL TOPICAL SCH ×2 (08:38→22:09)
[2016-09-06] MEDS: PANTOPRAZOLE SOD 40 MG DELAYED RELEASE TAB PO SCH (08:38)
[2016-09-06] MEDS: DOCUSATE SODIUM 50 MG/SENNA 8.6 MG TAB PO SCH (08:38)
[2016-09-06] MEDS: FERROUS SULFATE 325 MG (65 MG ELEMENTAL IRON) TAB PO SCH ×2 (08:38→16:46)
[2016-09-06] MEDS: GABAPENTIN 400 MG CAP PO SCH ×3 (08:38→16:46)
[2016-09-06] MEDS: HYDROmorphone HCL PF 1 MG/ML VIAL IV PUSH PRN (09:53)
--- NOTE | 2016-09-06 11:13 | HHI.PR ---
Subjective Remarks Follow-up Stage IV Chronic Sacral, trochanter, scrotal Ulcer 08/31/16-patient seen and examined; currently afebrile. Requesting more narcotics for poorly controlled pain. Otherwise stable 09/01/16-patient seen and examined. Stable. Plan for wound VAC change today 09/02/16-patient seen and examined. Afebrile, and no complaint. Plan for wound dressing change today. 09/03/16-patient seen and examined. No change and stable. 09/04/16-patient seen and examined. Afebrile. No acute event overnight. Wound VAC was changed today 09/05/16-patient seen and examined; no change and stable 09/06/16-patient seen and examined, wound VAC was being change this morning. Afebrile Objective Vitals Vital Signs Date Time Temp Pulse Resp B/P Pulse Ox O2 Delivery O2 Flow Rate FiO2 09/06/16 08:00 96.4 88 16 120/69 96 09/06/16 00:00 97.2 88 18 120/56 97 09/05/16 20:00 97.6 86 20 124/68 98 09/05/16 16:00 96.4 100 17 124/63 98 09/05/16 12:00 96.3 90 16 119/69 97 I/O 09/05/16 09/05/16 09/05/16 09/06/16 09/06/16 09/06/16 07:00 15:00 23:00 07:00 15:00 23:00 Intake Total 450 ml 550 ml 960 ml 440 ml Output Total 1000 ml 501 ml 1325 ml 1025 ml Balance -550 ml 49 ml -365 ml -585 ml Intake Oral 450 ml 550 ml 960 ml 440 ml Output Urine Total 1000 ml 400 ml 1300 ml 1000 ml Stool Total 1 ml Drainage Total 100 ml 25 ml 25 ml # Bowel Movements 0 0 Result Diagram: 09/03/1632 09/03/16531 Objective Remarks GENERAL: NAD quadriplegic SKIN: Stage IV Chronic Sacral, trochanter, scrotal Ulcer HEAD: Normocephalic. EYES: No scleral icterus. No injection or drainage. NECK: Supple, trachea midline. No JVD or lymphadenopathy. CARDIOVASCULAR: Regular rate and rhythm without murmurs, gallops, or rubs. RESPIRATORY: Breath sounds equal bilaterally. No accessory muscle use. GASTROINTESTINAL: Abdomen soft, non-tender, nondistended. Ostomy in place MUSCULOSKELETAL: No cyanosis, or edema. quadriplegic BACK: Nontender without obvious deformity. No CVA tenderness. Procedures Debridement Date of Insertion: Aug 10, 2016 A/P Problem List: (1) Sacral decubitus ulcer ICD Code: L89.159 Status: Chronic (2) Urinary tract infection due to Proteus ICD Code: N39.0 Status: Resolved (3) Constipation ICD Code: K59.00 Status: Resolved (4) Paraplegia ICD Code: G82.20 Status: Chronic (5) Neurogenic bladder ICD Code: N31.9 Status: Chronic Assessment and Plan 35-year-old male with Stage IV Chronic Sacral, trochanter, scrotal Ulcer, Present at time of admission. s/p eval by ID and IV Abx, arrangements made for Home Health at time of d/c however pt reports difficulty obtaining care, currently homeless. Patient referred to ED by PCP for assistance with chronic wound management. Wound culture grew MRSA, likely colonized from superficial swab. No further antibiotics for sacral wounds per ID. Continue recommendations per plastic surgery as well as wound VAC. continue oral Dilaudid 2-4 mg as needed. E Coli/Proteus complicated urinary tract infection: Suprapubic catheter being changed on a monthly basis completed abx therapy Bowel regimen with history of constipation. Monitor ostomy output. Whitney-Colace daily, Dulcolax as needed Neurogenic Bladder: Secondary to Paraplegia. Suprapubic catheter changed 08/10/16 Paraplegia: At baseline. Continue home medications. Trapeze setup in place Multi-Podus boots PT eval, DVT Prophylaxis: SCD/Teds/lovenox. Continue Current care as of 09/06/16 Problem Qualifiers (1) Sacral decubitus ulcer: Qualified Code: L89.154 - Decubitus ulcer of sacral region, stage 4 Aleksander Gamez MD Sep 06, 2016 11:13
[2016-09-06 12:00] VITALS: BP 133/75; PULSE 83; RESP 20; TEMP 96.5; O2SAT 97
[2016-09-06] MEDS: ENOXAPARIN SODIUM 40 MG/0.4 ML SYRINGE SQ SCH (15:29)
[2016-09-06 16:00] VITALS: BP 131/74; PULSE 91; RESP 16; TEMP 97.2; O2SAT 97
[2016-09-06] MEDS: LACTATED RINGER'S 1000 ML IV SCH (16:46)
[2016-09-06 20:00] VITALS: BP 132/71; PULSE 94; RESP 18; TEMP 97.5; O2SAT 94
[2016-09-06] MEDS: ALPRAZolam 1 MG TAB PO PRN (22:17)
[2016-09-07] VITALS: BP 122/71; PULSE 90; RESP 18; TEMP 97.3; O2SAT 96
[2016-09-07] MEDS: ALPRAZolam 1 MG TAB PO PRN ×2 (03:11→22:20)
[2016-09-07] MEDS: oxyCODONE/ACETAMINOPHEN 7.5 MG/325 MG TAB PO PRN ×4 (03:12→22:20)
[2016-09-07] MEDS: PANTOPRAZOLE SOD 40 MG DELAYED RELEASE TAB PO SCH (07:55)
[2016-09-07] MEDS: DOCUSATE SODIUM 50 MG/SENNA 8.6 MG TAB PO SCH (07:55)
[2016-09-07] MEDS: GABAPENTIN 400 MG CAP PO SCH ×3 (07:55→15:56)
[2016-09-07] MEDS: LACTIC ACID (AMMONIUM LACTATE) 12% LOTION 225 GM BTL TOPICAL SCH ×2 (07:56→21:00)
[2016-09-07] MEDS: FERROUS SULFATE 325 MG (65 MG ELEMENTAL IRON) TAB PO SCH ×2 (07:56→15:56)
[2016-09-07] MEDS: HYDROCORTISONE 1% CREAM 30 GM TOPICAL SCH (07:56)
[2016-09-07 08:00] VITALS: BP 121/64; PULSE 84; RESP 17; TEMP 96; O2SAT 96
[2016-09-07 12:00] VITALS: BP 131/81; PULSE 84; RESP 19; TEMP 96.1; O2SAT 97
--- NOTE | 2016-09-07 12:34 | HHI.PR ---
Subjective Remarks Follow-up Stage IV Chronic Sacral, trochanter, scrotal Ulcer 08/31/16-patient seen and examined; currently afebrile. Requesting more narcotics for poorly controlled pain. Otherwise stable 09/01/16-patient seen and examined. Stable. Plan for wound VAC change today 09/02/16-patient seen and examined. Afebrile, and no complaint. Plan for wound dressing change today. 09/03/16-patient seen and examined. No change and stable. 09/04/16-patient seen and examined. Afebrile. No acute event overnight. Wound VAC was changed today 09/05/16-patient seen and examined; no change and stable 09/06/16-patient seen and examined, wound VAC was being change this morning. Afebrile 09/07/16-patient seen and examined, he was working with PT. No acute event overnight and currently afebrile. Objective Vitals Vital Signs Date Time Temp Pulse Resp B/P Pulse Ox O2 Delivery O2 Flow Rate FiO2 09/07/16 12:00 96.1 84 19 131/81 97 09/07/16 08:00 96.0 84 17 121/64 96 09/07/16 00:00 97.3 90 18 122/71 96 09/06/16 20:00 97.5 94 18 132/71 94 09/06/16 16:00 97.2 91 16 131/74 97 I/O 09/06/16 09/06/16 09/06/16 09/07/16 09/07/16 09/07/16 07:00 15:00 23:00 07:00 15:00 23:00 Intake Total 440 ml 480 ml 480 ml 720 ml Output Total 1025 ml 525 ml 225 ml 1450 ml Balance -585 ml -45 ml 255 ml -730 ml Intake Oral 440 ml 480 ml 480 ml 720 ml Output Urine Total 1000 ml 525 ml 225 ml 1450 ml Stool Total 0 ml Drainage Total 25 ml # Bowel Movements 0 1 Result Diagram: 09/03/1653109/03/16531 Objective Remarks GENERAL: NAD quadriplegic SKIN: Stage IV Chronic Sacral, trochanter, scrotal Ulcer HEAD: Normocephalic. EYES: No scleral icterus. No injection or drainage. NECK: Supple, trachea midline. No JVD or lymphadenopathy. CARDIOVASCULAR: Regular rate and rhythm without murmurs, gallops, or rubs. RESPIRATORY: Breath sounds equal bilaterally. No accessory muscle use. GASTROINTESTINAL: Abdomen soft, non-tender, nondistended. Ostomy in place MUSCULOSKELETAL: No cyanosis, or edema. quadriplegic BACK: Nontender without obvious deformity. No CVA tenderness. Procedures Debridement Date of Insertion: Aug 10, 2016 A/P Problem List: (1) Sacral decubitus ulcer ICD Code: L89.159 Status: Chronic (2) Urinary tract infection due to Proteus ICD Code: N39.0 Status: Resolved (3) Constipation ICD Code: K59.00 Status: Resolved (4) Paraplegia ICD Code: G82.20 Status: Chronic (5) Neurogenic bladder ICD Code: N31.9 Status: Chronic Assessment and Plan 35-year-old male with Stage IV Chronic Sacral, trochanter, scrotal Ulcer, Present at time of admission. s/p eval by ID and IV Abx, arrangements made for Home Health at time of d/c however pt reports difficulty obtaining care, currently homeless. Patient referred to ED by PCP for assistance with chronic wound management. Wound culture grew MRSA, likely colonized from superficial swab. No further antibiotics for sacral wounds per ID. Continue recommendations per plastic surgery as well as wound VAC. continue oral Dilaudid 2-4 mg as needed. E Coli/Proteus complicated urinary tract infection: Suprapubic catheter being changed on a monthly basis completed abx therapy Bowel regimen with history of constipation. Monitor ostomy output. Whitney-Colace daily, Dulcolax as needed Neurogenic Bladder: Secondary to Paraplegia. Suprapubic catheter changed 08/10/16 Paraplegia: At baseline. Continue home medications. Trapeze setup in place Multi-Podus boots PT eval, DVT Prophylaxis: SCD/Teds/lovenox. Continue Current care as of 09/07/16 Problem Qualifiers (1) Sacral decubitus ulcer: Qualified Code: L89.154 - Decubitus ulcer of sacral region, stage 4 Aleksander Gamez MD Sep 07, 2016 12:34
[2016-09-07] MEDS: HYDROmorphone HCL PF 1 MG/ML VIAL IV PUSH PRN (14:45)
[2016-09-07] MEDS: ENOXAPARIN SODIUM 40 MG/0.4 ML SYRINGE SQ SCH (15:55)
[2016-09-07] MEDS: LACTATED RINGER'S 1000 ML IV SCH (15:56)
[2016-09-07 16:00] VITALS: BP 130/69; PULSE 90; RESP 17; TEMP 96.3; O2SAT 98
[2016-09-07 20:00] VITALS: BP 120/61; PULSE 95; RESP 18; TEMP 96.5; O2SAT 96
[2016-09-08] VITALS: BP 134/84; PULSE 94; RESP 18; TEMP 97.2; O2SAT 95
[2016-09-08] MEDS: oxyCODONE/ACETAMINOPHEN 7.5 MG/325 MG TAB PO PRN ×4 (03:19→20:47)
[2016-09-08 08:00] VITALS: BP 118/70; PULSE 85; RESP 17; TEMP 96.6; O2SAT 97
[2016-09-08] MEDS: PANTOPRAZOLE SOD 40 MG DELAYED RELEASE TAB PO SCH (08:32)
[2016-09-08] MEDS: DOCUSATE SODIUM 50 MG/SENNA 8.6 MG TAB PO SCH (08:32)
[2016-09-08] MEDS: GABAPENTIN 400 MG CAP PO SCH ×3 (08:33→18:10)
[2016-09-08] MEDS: FERROUS SULFATE 325 MG (65 MG ELEMENTAL IRON) TAB PO SCH ×2 (08:33→18:10)
[2016-09-08] MEDS: LACTIC ACID (AMMONIUM LACTATE) 12% LOTION 225 GM BTL TOPICAL SCH ×2 (08:33→20:49)
[2016-09-08] MEDS: HYDROCORTISONE 1% CREAM 30 GM TOPICAL SCH (08:58)
[2016-09-08 12:00] VITALS: BP 125/66; PULSE 71; RESP 17; TEMP 96.7; O2SAT 98
--- NOTE | 2016-09-08 13:14 | HHI.PR ---
Subjective Remarks Follow-up Stage IV Chronic Sacral, trochanter, scrotal Ulcer 08/31/16-patient seen and examined; currently afebrile. Requesting more narcotics for poorly controlled pain. Otherwise stable 09/01/16-patient seen and examined. Stable. Plan for wound VAC change today 09/02/16-patient seen and examined. Afebrile, and no complaint. Plan for wound dressing change today. 09/03/16-patient seen and examined. No change and stable. 09/04/16-patient seen and examined. Afebrile. No acute event overnight. Wound VAC was changed today 09/05/16-patient seen and examined; no change and stable 09/06/16-patient seen and examined, wound VAC was being change this morning. Afebrile 09/07/16-patient seen and examined, he was working with PT. No acute event overnight and currently afebrile. 09/08/16-patient seen and examined; stable and no complaint today. No change Objective Vitals Vital Signs Date Time Temp Pulse Resp B/P Pulse Ox O2 Delivery O2 Flow Rate FiO2 09/08/16 08:00 96.6 85 17 118/70 97 09/08/16 04:20 16 09/08/16 00:00 97.2 94 18 134/84 95 09/07/16 20:00 96.5 95 18 120/61 96 09/07/16 16:00 96.3 90 17 130/69 98 I/O 09/07/16 09/07/16 09/07/16 09/08/16 09/08/16 09/08/16 07:00 15:00 23:00 07:00 15:00 23:00 Intake Total 720 ml 450 ml 728 ml 240 ml Output Total 1450 ml 1200 ml 950 ml 500 ml Balance -730 ml -750 ml -222 ml -260 ml Intake Oral 720 ml 450 ml 720 ml 240 ml IV Total 8 ml 0 ml Output Urine Total 1450 ml 1200 ml 950 ml 300 ml Stool Total 0 ml 200 ml # Bowel Movements 1 Objective Remarks GENERAL: NAD quadriplegic SKIN: Stage IV Chronic Sacral, trochanter, scrotal Ulcer HEAD: Normocephalic. EYES: No scleral icterus. No injection or drainage. NECK: Supple, trachea midline. No JVD or lymphadenopathy. CARDIOVASCULAR: Regular rate and rhythm without murmurs, gallops, or rubs. RESPIRATORY: Breath sounds equal bilaterally. No accessory muscle use. GASTROINTESTINAL: Abdomen soft, non-tender, nondistended. Ostomy in place MUSCULOSKELETAL: No cyanosis, or edema. quadriplegic BACK: Nontender without obvious deformity. No CVA tenderness. Procedures Debridement Date of Insertion: Aug 10, 2016 A/P Problem List: (1) Sacral decubitus ulcer ICD Code: L89.159 Status: Chronic (2) Urinary tract infection due to Proteus ICD Code: N39.0 Status: Resolved (3) Constipation ICD Code: K59.00 Status: Resolved (4) Paraplegia ICD Code: G82.20 Status: Chronic (5) Neurogenic bladder ICD Code: N31.9 Status: Chronic Assessment and Plan 35-year-old male with Stage IV Chronic Sacral, trochanter, scrotal Ulcer, Present at time of admission. s/p eval by ID and IV Abx, arrangements made for Home Health at time of d/c however pt reports difficulty obtaining care, currently homeless. Patient referred to ED by PCP for assistance with chronic wound management. Wound culture grew MRSA, likely colonized from superficial swab. No further antibiotics for sacral wounds per ID. Continue recommendations per plastic surgery as well as wound VAC. continue oral Dilaudid 2-4 mg as needed. E Coli/Proteus complicated urinary tract infection: Suprapubic catheter being changed on a monthly basis completed abx therapy Bowel regimen with history of constipation. Monitor ostomy output. Whitney-Colace daily, Dulcolax as needed Neurogenic Bladder: Secondary to Paraplegia. Suprapubic catheter changed 08/10/16 Paraplegia: At baseline. Continue home medications. Trapeze setup in place Multi-Podus boots PT eval, DVT Prophylaxis: SCD/Teds/lovenox. Continue Current care as of 09/08/16 Problem Qualifiers (1) Sacral decubitus ulcer: Qualified Code: L89.154 - Decubitus ulcer of sacral region, stage 4 Aleksander Gamez MD Sep 08, 2016 13:13
[2016-09-08] MEDS: HYDROmorphone HCL PF 1 MG/ML VIAL IV PUSH PRN (14:35)
[2016-09-08 16:00] VITALS: BP 120/64; PULSE 84; RESP 18; TEMP 96.7; O2SAT 99
[2016-09-08] MEDS: ENOXAPARIN SODIUM 40 MG/0.4 ML SYRINGE SQ SCH (16:31)
[2016-09-08] MEDS: LACTATED RINGER'S 1000 ML IV SCH (18:30)
[2016-09-08 20:00] VITALS: BP 118/76; PULSE 96; RESP 20; TEMP 98.4; O2SAT 97
[2016-09-09] MEDS: oxyCODONE/ACETAMINOPHEN 7.5 MG/325 MG TAB PO PRN ×5 (02:39→22:50)
[2016-09-09 08:00] VITALS: BP 115/67; PULSE 83; RESP 19; TEMP 97.4; O2SAT 99
--- NOTE | 2016-09-09 08:48 | HHI.PR ---
Subjective Remarks Patient has no complaints today. He is eating ok. No fevers. Objective Vitals Vital Signs Date Time Temp Pulse Resp B/P Pulse Ox O2 Delivery O2 Flow Rate FiO2 09/08/16 20:00 98.4 96 20 118/76 97 09/08/16 16:00 96.7 84 18 120/64 99 09/08/16 12:00 96.7 71 17 125/66 98 I/O 09/08/16 09/08/16 09/08/16 09/09/16 09/09/16 09/09/16 07:00 15:00 23:00 07:00 15:00 23:00 Intake Total 240 ml 340 ml 720 ml 480 ml Output Total 500 ml 900 ml 750 ml 900 ml Balance -260 ml -560 ml -30 ml -420 ml Intake Oral 240 ml 340 ml 720 ml 480 ml IV Total 0 ml Output Urine Total 300 ml 900 ml 750 ml 900 ml Stool Total 200 ml # Bowel Movements 1 0 0 Imaging Last Impressions Abdomen X-Ray 07/09/16 1518 Signed Impressions: Service Date/Time: Saturday, July 09, 2016 17:06 - CONCLUSION: 1. Moderate amount of stool. 2. No dilated loops of bowel or pneumoperitoneum. 3. Bilateral hip dysplasia. Wes Callejas Jr., MD Chest X-Ray 06/08/16 1341 Signed Impressions: Service Date/Time: May 14:46 - CONCLUSION: No acute cardiopulmonary abnormality is identified. Luis Felipe Guerra MD Abdomen/Pelvis CT 06/08/16 1341 Signed Impressions: Service Date/Time: May 18:40 - CONCLUSION: 1. The balloon portion of the suprapubic catheter is inside the prosthetic urethra. 2. Probable hepatic hemangioma. Ryanne Maya MD Objective Remarks GENERAL: Paraplegic male in no apparent distress. SKIN: Dressing is dry over Stage IV Chronic Sacral, trochanter, scrotal Ulcer CARDIOVASCULAR: Normal rate and regular rhythm without murmurs, gallops, or rubs. RESPIRATORY: Good respiratory efforts. Breath sounds equal and clear to auscultation bilaterally. GASTROINTESTINAL: Abdomen soft, non-tender. Colostomy appear to be functioning. Normal active bowel sounds MUSCULOSKELETAL: Extremities without cyanosis, or edema. NEURO: Alert & Oriented. Normal speech. PSYCH: Appropriate mood and affect. Procedures Debridement Date of Insertion: Aug 10, 2016 A/P Problem List: (1) Sacral decubitus ulcer ICD Code: L89.159 Status: Chronic (2) Urinary tract infection due to Proteus ICD Code: N39.0 Status: Resolved (3) Constipation ICD Code: K59.00 Status: Resolved (4) Paraplegia ICD Code: G82.20 Status: Chronic (5) Neurogenic bladder ICD Code: N31.9 Status: Chronic Assessment and Plan 35-year-old male with Paraplegic with Stage IV Chronic Sacral, trochanter, scrotal Ulcer, Present on admission. s/p eval by ID and IV Abx, arrangements made for Home Health at time of d/c however pt reports difficulty obtaining care at [facility]. ?homeless. CM assisting with placement. Wound culture grew MRSA, likely colonized from superficial swab. No further antibiotics for sacral wounds per ID. Continue recommendations per plastic surgery as well as wound VAC. continue oral Dilaudid 2-4 mg as needed. E Coli/Proteus complicated urinary tract infection: Suprapubic catheter to be changed monthly Patient completed abx therapy Bowel regimen with history of constipation. Monitor ostomy output. Whitney-Colace daily, Dulcolax as needed Neurogenic Bladder: Secondary to Paraplegia. Suprapubic catheter changed 08/10/16 Paraplegia: At baseline. Continue home medications. Trapeze setup in place Multi-Podus boots PT DVT Prophylaxis: SCD/Teds/lovenox. Problem Qualifiers (1) Sacral decubitus ulcer: Qualified Code: L89.154 - Decubitus ulcer of sacral region, stage 4 Bhavani Roth MD Sep 09, 2016 08:48
[2016-09-09] MEDS: GABAPENTIN 400 MG CAP PO SCH ×3 (08:52→17:16)
[2016-09-09] MEDS: FERROUS SULFATE 325 MG (65 MG ELEMENTAL IRON) TAB PO SCH ×2 (08:52→17:16)
[2016-09-09] MEDS: DOCUSATE SODIUM 50 MG/SENNA 8.6 MG TAB PO SCH (08:52)
[2016-09-09] MEDS: PANTOPRAZOLE SOD 40 MG DELAYED RELEASE TAB PO SCH (08:52)
[2016-09-09] MEDS: HYDROCORTISONE 1% CREAM 30 GM TOPICAL SCH (08:53)
[2016-09-09] MEDS: LACTIC ACID (AMMONIUM LACTATE) 12% LOTION 225 GM BTL TOPICAL SCH ×2 (08:53→21:00)
[2016-09-09 11:46] VITALS: BP 121/63; PULSE 78; RESP 20; TEMP 97.8; O2SAT 100
[2016-09-09 17:00] VITALS: BP 126/61; PULSE 87; RESP 20; TEMP 97.9; O2SAT 97
[2016-09-09] MEDS: ENOXAPARIN SODIUM 40 MG/0.4 ML SYRINGE SQ SCH (17:21)
[2016-09-09] MEDS: LACTATED RINGER'S 1000 ML IV SCH (18:30)
[2016-09-09 20:23] VITALS: BP 115/56; PULSE 90; RESP 18; TEMP 96.2; O2SAT 97
[2016-09-09] MEDS: ALPRAZolam 1 MG TAB PO PRN (22:50)
[2016-09-10 00:07] VITALS: BP 130/71; PULSE 92; RESP 18; TEMP 97.8; O2SAT 98
[2016-09-10] MEDS ORDERED: HYDROmorphone HCL PF 1 MG/ML VIAL IV PUSH ONE (01:45)
[2016-09-10] MEDS: oxyCODONE/ACETAMINOPHEN 7.5 MG/325 MG TAB PO PRN ×4 (06:51→20:58)
[2016-09-10] MEDS: ALPRAZolam 1 MG TAB PO PRN ×2 (06:51→20:59)
[2016-09-10 08:00] VITALS: BP 127/65; PULSE 90; RESP 18; TEMP 95.6; O2SAT 100
[2016-09-10] MEDS: FERROUS SULFATE 325 MG (65 MG ELEMENTAL IRON) TAB PO SCH ×2 (10:03→17:02)
[2016-09-10] MEDS: DOCUSATE SODIUM 50 MG/SENNA 8.6 MG TAB PO SCH (10:03)
[2016-09-10] MEDS: GABAPENTIN 400 MG CAP PO SCH ×3 (10:03→17:02)
[2016-09-10] MEDS: PANTOPRAZOLE SOD 40 MG DELAYED RELEASE TAB PO SCH (10:03)
[2016-09-10] MEDS: LACTIC ACID (AMMONIUM LACTATE) 12% LOTION 225 GM BTL TOPICAL SCH ×2 (10:04→20:59)
[2016-09-10] MEDS: HYDROCORTISONE 1% CREAM 30 GM TOPICAL SCH (10:04)
[2016-09-10 12:00] VITALS: BP 117/64; PULSE 78; RESP 20; TEMP 96.2; O2SAT 99
[2016-09-10] MEDS: HYDROmorphone HCL PF 1 MG/ML VIAL IV PUSH PRN ×2 (13:08→19:04)
[2016-09-10 16:00] VITALS: BP 126/71; PULSE 80; RESP 16; TEMP 97.1; O2SAT 99
--- NOTE | 2016-09-10 16:12 | HHI.PR ---
Subjective Remarks Patient seen earlier this morning. He reports his pain is not controlled. He is experiencing pain with the wound VAC. He was given IV Dilaudid overnight which helped him sleep. Objective Vitals Vital Signs Date Time Temp Pulse Resp B/P Pulse Ox O2 Delivery O2 Flow Rate FiO2 09/10/16 12:00 96.2 78 20 117/64 99 09/10/16 08:00 95.6 90 18 127/65 100 09/10/16 00:07 97.8 92 18 130/71 98 09/09/16 20:23 96.2 90 18 115/56 97 09/09/16 17:00 97.9 87 20 126/61 97 I/O 09/09/16 09/09/16 09/09/16 09/10/16 09/10/16 09/10/16 07:00 15:00 23:00 07:00 15:00 23:00 Intake Total 480 ml 480 ml 480 ml 480 ml Output Total 900 ml 50 ml 1100 ml 1050 ml Balance -420 ml 430 ml -620 ml -570 ml Intake Oral 480 ml 480 ml 480 ml 480 ml Output Urine Total 900 ml 1000 ml 1000 ml Stool Total 100 ml 50 ml Drainage Total 50 ml # Bowel Movements 0 Objective Remarks GENERAL: Paraplegic male in no apparent distress. SKIN: Wound VAC over Stage IV Chronic Sacral, trochanter, scrotal Ulcer CARDIOVASCULAR: Normal rate and regular rhythm without murmurs, gallops, or rubs. RESPIRATORY: Good respiratory efforts. Breath sounds equal and clear to auscultation bilaterally. GASTROINTESTINAL: Abdomen soft, non-tender. Colostomy appear to be functioning. Normal active bowel sounds MUSCULOSKELETAL: Extremities without cyanosis, or edema. NEURO: Alert & Oriented. Normal speech. PSYCH: Appropriate mood and affect. Procedures Debridement Date of Insertion: Aug 10, 2016 A/P Problem List: (1) Sacral decubitus ulcer ICD Code: L89.159 Status: Chronic (2) Urinary tract infection due to Proteus ICD Code: N39.0 Status: Resolved (3) Constipation ICD Code: K59.00 Status: Resolved (4) Paraplegia ICD Code: G82.20 Status: Chronic (5) Neurogenic bladder ICD Code: N31.9 Status: Chronic Assessment and Plan 35-year-old male with Paraplegic with Stage IV Chronic Sacral, trochanter, scrotal Ulcer, Present on admission. s/p eval by ID and IV Abx, arrangements made for Home Health at time of d/c however pt reports difficulty obtaining care at [facility]. ?homeless. CM assisting with placement. Wound culture grew MRSA, likely colonized from superficial swab. No further antibiotics for sacral wounds per ID. Continue recommendations per plastic surgery as well as wound VAC. We'll add Dilaudid IV for breakthrough pain only. E Coli/Proteus complicated urinary tract infection: Suprapubic catheter to be changed monthly Patient completed abx therapy Bowel regimen with history of constipation. Monitor ostomy output. Whitney-Colace daily, Dulcolax as needed Neurogenic Bladder: Secondary to Paraplegia. Suprapubic catheter changed 08/10/16 Paraplegia: At baseline. Continue home medications. Trapeze setup in place Multi-Podus boots PT DVT Prophylaxis: SCD/Teds/lovenox. Problem Qualifiers (1) Sacral decubitus ulcer: Qualified Code: L89.154 - Decubitus ulcer of sacral region, stage 4 Bhavani Roth MD Sep 10, 2016 16:12
[2016-09-10] MEDS: LACTATED RINGER'S 1000 ML IV SCH (16:57)
[2016-09-10] MEDS: ENOXAPARIN SODIUM 40 MG/0.4 ML SYRINGE SQ SCH (17:03)
[2016-09-10 20:28] VITALS: BP 128/74; PULSE 89; RESP 18; TEMP 98; O2SAT 98
[2016-09-11 00:32] VITALS: BP 128/67; PULSE 88; RESP 17; TEMP 97.5; O2SAT 98
[2016-09-11] MEDS: HYDROmorphone HCL PF 1 MG/ML VIAL IV PUSH PRN ×4 (00:59→18:48)
[2016-09-11] MEDS: oxyCODONE/ACETAMINOPHEN 7.5 MG/325 MG TAB PO PRN ×4 (05:13→21:05)
[2016-09-11 08:00] VITALS: BP 110/62; PULSE 76; RESP 17; TEMP 97.2; O2SAT 99
[2016-09-11] MEDS: FERROUS SULFATE 325 MG (65 MG ELEMENTAL IRON) TAB PO SCH ×2 (08:52→16:35)
[2016-09-11] MEDS: PANTOPRAZOLE SOD 40 MG DELAYED RELEASE TAB PO SCH (08:52)
[2016-09-11] MEDS: HYDROCORTISONE 1% CREAM 30 GM TOPICAL SCH (08:52)
[2016-09-11] MEDS: DOCUSATE SODIUM 50 MG/SENNA 8.6 MG TAB PO SCH (08:52)
[2016-09-11] MEDS: GABAPENTIN 400 MG CAP PO SCH ×3 (08:52→16:35)
[2016-09-11] MEDS: LACTIC ACID (AMMONIUM LACTATE) 12% LOTION 225 GM BTL TOPICAL SCH ×2 (08:53→21:04)
--- NOTE | 2016-09-11 11:30 | HHI.PR ---
Subjective Remarks Patient reports that pain is better controlled. SANDY RN. during wound vac dressing change. Objective Vitals Vital Signs Date Time Temp Pulse Resp B/P Pulse Ox O2 Delivery O2 Flow Rate FiO2 09/11/16 08:00 97.2 76 17 110/62 99 09/11/16 00:32 97.5 88 17 128/67 98 09/10/16 20:28 98.0 89 18 128/74 98 09/10/16 16:00 97.1 80 16 126/71 99 09/10/16 12:00 96.2 78 20 117/64 99 I/O 09/10/16 09/10/16 09/10/16 09/11/16 09/11/16 09/11/16 07:00 15:00 23:00 07:00 15:00 23:00 Intake Total 480 ml 500 ml 560 ml 360 ml Output Total 1050 ml 700 ml 1200 ml 1000 ml Balance -570 ml -200 ml -640 ml -640 ml Intake Oral 480 ml 500 ml 560 ml 360 ml Output Urine Total 1000 ml 700 ml 1000 ml 1000 ml Stool Total 50 ml 200 ml # Bowel Movements 1 0 Objective Remarks GENERAL: Paraplegic male in no apparent distress. SKIN: Wound VAC over Stage IV Chronic Sacral, trochanter, scrotal wounds. CARDIOVASCULAR: Normal rate and regular rhythm without murmurs, gallops, or rubs. RESPIRATORY: Good respiratory efforts. Breath sounds equal and clear to auscultation bilaterally. GASTROINTESTINAL: Abdomen soft, non-tender. Colostomy appear to be functioning. Normal active bowel sounds NEURO: Alert & Oriented. Normal speech. PSYCH: Appropriate mood and affect. Procedures Debridement Date of Insertion: Aug 10, 2016 A/P Problem List: (1) Sacral decubitus ulcer ICD Code: L89.159 Status: Chronic (2) Urinary tract infection due to Proteus ICD Code: N39.0 Status: Resolved (3) Constipation ICD Code: K59.00 Status: Resolved (4) Paraplegia ICD Code: G82.20 Status: Chronic (5) Neurogenic bladder ICD Code: N31.9 Status: Chronic Assessment and Plan 35-year-old male with Paraplegic with Stage IV Chronic Sacral, trochanter, scrotal Ulcer, Present on admission. s/p eval by ID and IV Abx, arrangements made for Home Health at time of d/c however pt reports difficulty obtaining care at [facility]. ?homeless. CM assisting with placement. Wound culture grew MRSA, likely colonized from superficial swab. No further antibiotics for sacral wounds per ID. Continue recommendations per plastic surgery as well as wound VAC. Continue Dilaudid IV for breakthrough pain only. E Coli/Proteus complicated urinary tract infection: Suprapubic catheter to be changed monthly Patient completed abx therapy Bowel regimen with history of constipation. Monitor ostomy output. Whitney-Colace daily, Dulcolax as needed Neurogenic Bladder: Secondary to Paraplegia. Suprapubic catheter changed 08/10/16 Paraplegia: At baseline. Continue home medications. Trapeze setup in place Multi-Podus boots PT DVT Prophylaxis: SCD/Teds/lovenox. Discharge Planning Difficult placement. CM following. Problem Qualifiers (1) Sacral decubitus ulcer: Qualified Code: L89.154 - Decubitus ulcer of sacral region, stage 4 Bhavani Roth MD Sep 11, 2016 11:30
[2016-09-11 12:00] VITALS: BP 114/69; PULSE 74; RESP 17; TEMP 95.6; O2SAT 99
[2016-09-11 16:00] VITALS: BP 113/58; PULSE 83; RESP 17; TEMP 97.1; O2SAT 99
[2016-09-11] MEDS: ENOXAPARIN SODIUM 40 MG/0.4 ML SYRINGE SQ SCH (16:35)
[2016-09-11] MEDS: LACTATED RINGER'S 1000 ML IV SCH (16:35)
[2016-09-11 20:00] VITALS: BP 114/68; PULSE 91; RESP 20; TEMP 98; O2SAT 97
[2016-09-12] VITALS: BP 103/60; PULSE 91; RESP 20; TEMP 98; O2SAT 98
[2016-09-12] MEDS: HYDROmorphone HCL PF 1 MG/ML VIAL IV PUSH PRN ×3 (01:22→21:58)
[2016-09-12] MEDS: ALPRAZolam 1 MG TAB PO PRN ×2 (01:22→21:58)
[2016-09-12 08:00] VITALS: BP 110/67; PULSE 82; RESP 17; TEMP 96.5; O2SAT 100
[2016-09-12] MEDS: PANTOPRAZOLE SOD 40 MG DELAYED RELEASE TAB PO SCH (08:04)
[2016-09-12] MEDS: HYDROCORTISONE 1% CREAM 30 GM TOPICAL SCH (08:05)
[2016-09-12] MEDS: LACTIC ACID (AMMONIUM LACTATE) 12% LOTION 225 GM BTL TOPICAL SCH ×2 (08:05→20:57)
[2016-09-12] MEDS: GABAPENTIN 400 MG CAP PO SCH ×3 (08:05→16:05)
[2016-09-12] MEDS: DOCUSATE SODIUM 50 MG/SENNA 8.6 MG TAB PO SCH (08:05)
[2016-09-12] MEDS: FERROUS SULFATE 325 MG (65 MG ELEMENTAL IRON) TAB PO SCH ×2 (08:05→16:05)
[2016-09-12] MEDS: oxyCODONE/ACETAMINOPHEN 7.5 MG/325 MG TAB PO PRN ×3 (08:05→20:56)
--- NOTE | 2016-09-12 10:25 | HHI.PR ---
Subjective Remarks No change in clinical status. Patient has no new complaints. His pain is controlled. Objective Vitals Vital Signs Date Time Temp Pulse Resp B/P Pulse Ox O2 Delivery O2 Flow Rate FiO2 09/12/16 08:00 96.5 82 17 110/67 100 09/12/16 00:00 98.0 91 20 103/60 98 09/11/16 20:00 98.0 91 20 114/68 97 09/11/16 16:00 97.1 83 17 113/58 99 09/11/16 12:00 95.6 74 17 114/69 99 I/O 09/11/16 09/11/16 09/11/16 09/12/16 09/12/16 09/12/16 07:00 15:00 23:00 07:00 15:00 23:00 Intake Total 360 ml 240 ml 480 ml 240 ml Output Total 1000 ml 900 ml 450 ml 801 ml Balance -640 ml -660 ml 30 ml -561 ml Intake Oral 360 ml 240 ml 480 ml 240 ml Output Urine Total 1000 ml 900 ml 450 ml 800 ml Stool Total 1 ml # Bowel Movements 0 0 Objective Remarks GENERAL: Paraplegic male in no apparent distress. SKIN: Wound VAC over Stage IV Chronic Sacral, trochanter, scrotal wounds. CARDIOVASCULAR: Normal rate and regular rhythm without murmurs, gallops, or rubs. RESPIRATORY: Good respiratory efforts. Breath sounds equal and clear to auscultation bilaterally. GASTROINTESTINAL: Abdomen soft, non-tender. Colostomy appear to be functioning. Normal active bowel sounds NEURO: Alert & Oriented. Normal speech. PSYCH: Appropriate mood and affect. Procedures Debridement Date of Insertion: Aug 10, 2016 A/P Problem List: (1) Sacral decubitus ulcer ICD Code: L89.159 Status: Chronic (2) Urinary tract infection due to Proteus ICD Code: N39.0 Status: Resolved (3) Constipation ICD Code: K59.00 Status: Resolved (4) Paraplegia ICD Code: G82.20 Status: Chronic (5) Neurogenic bladder ICD Code: N31.9 Status: Chronic Assessment and Plan 35-year-old male with Paraplegic with Stage IV Chronic Sacral, trochanter, scrotal Ulcer, Present on admission. s/p eval by ID and IV Abx, arrangements made for Home Health at time of d/c however pt reports difficulty obtaining care at [facility]. ?homeless. CM assisting with placement. Wound culture grew MRSA, likely colonized from superficial swab. No further antibiotics for sacral wounds per ID. Continue recommendations per plastic surgery as well as wound VAC. Continue Dilaudid IV for breakthrough pain only. E Coli/Proteus complicated urinary tract infection: Suprapubic catheter to be changed monthly Patient completed abx therapy Bowel regimen with history of constipation. Monitor ostomy output. Has been adequate so far. Whitney-Colace daily, Dulcolax as needed Neurogenic Bladder: Secondary to Paraplegia. Suprapubic catheter changed 08/10/16 Paraplegia: At baseline. Continue home medications. Trapeze setup in place Multi-Podus boots PT DVT Prophylaxis: SCD/Teds/lovenox. Discharge Planning CM following and working on placement.. Problem Qualifiers (1) Sacral decubitus ulcer: Qualified Code: L89.154 - Decubitus ulcer of sacral region, stage 4 Bhavani Roth MD Sep 12, 2016 10:25
[2016-09-12 12:00] VITALS: BP 117/55; PULSE 81; RESP 16; TEMP 96.6; O2SAT 96
[2016-09-12 16:00] VITALS: BP 121/63; PULSE 82; RESP 17; TEMP 95.3; O2SAT 100
[2016-09-12] MEDS: ENOXAPARIN SODIUM 40 MG/0.4 ML SYRINGE SQ SCH (16:05)
[2016-09-12] MEDS: LACTATED RINGER'S 1000 ML IV SCH (16:05)
[2016-09-12 20:00] VITALS: BP 114/67; PULSE 93; RESP 17; TEMP 98.8; O2SAT 96
[2016-09-13] VITALS: BP 134/68; PULSE 100; RESP 17; TEMP 97.2; O2SAT 97
[2016-09-13] MEDS: oxyCODONE/ACETAMINOPHEN 7.5 MG/325 MG TAB PO PRN ×4 (01:45→20:53)
[2016-09-13 08:00] VITALS: BP 110/62; PULSE 80; RESP 19; TEMP 93.4; O2SAT 100
[2016-09-13] MEDS: PANTOPRAZOLE SOD 40 MG DELAYED RELEASE TAB PO SCH (09:00)
[2016-09-13] MEDS: LACTIC ACID (AMMONIUM LACTATE) 12% LOTION 225 GM BTL TOPICAL SCH ×2 (09:00→20:57)
[2016-09-13] MEDS: HYDROCORTISONE 1% CREAM 30 GM TOPICAL SCH (09:00)
[2016-09-13] MEDS: FERROUS SULFATE 325 MG (65 MG ELEMENTAL IRON) TAB PO SCH ×2 (09:00→17:35)
[2016-09-13] MEDS: GABAPENTIN 400 MG CAP PO SCH ×3 (09:00→17:35)
[2016-09-13] MEDS: DOCUSATE SODIUM 50 MG/SENNA 8.6 MG TAB PO SCH (09:00)
[2016-09-13] MEDS: HYDROmorphone HCL PF 1 MG/ML VIAL IV PUSH PRN ×4 (09:22→23:44)
--- NOTE | 2016-09-13 10:28 | HHI.PR ---
Subjective Remarks No new issues. No events overnight. Suprapubic catheter due to to be changed. Objective Vitals Vital Signs Date Time Temp Pulse Resp B/P Pulse Ox O2 Delivery O2 Flow Rate FiO2 09/13/16 08:00 93.4 80 19 110/62 100 09/13/16 00:00 97.2 100 17 134/68 97 09/12/16 20:00 98.8 93 17 114/67 96 09/12/16 16:00 95.3 82 17 121/63 100 09/12/16 12:00 96.6 81 16 117/55 96 I/O 09/12/16 09/12/16 09/12/16 09/13/16 09/13/16 09/13/16 07:00 15:00 23:00 07:00 15:00 23:00 Intake Total 240 ml 100 ml 240 ml 240 ml Output Total 801 ml 1000 ml 425 ml 550 ml Balance -561 ml -900 ml -185 ml -310 ml Intake Oral 240 ml 100 ml 240 ml 240 ml IV Total 0 ml 0 ml Output Urine Total 800 ml 1000 ml 400 ml 550 ml Stool Total 1 ml Drainage Total 25 ml 0 ml # Bowel Movements 1 Objective Remarks GENERAL: Paraplegic male in no apparent distress. CARDIOVASCULAR: Normal rate and regular rhythm without murmurs, gallops, or rubs. RESPIRATORY: Good respiratory efforts. Breath sounds equal and clear to auscultation bilaterally. GASTROINTESTINAL: Abdomen soft, non-tender. Colostomy appear to be functioning. Normal active bowel sounds NEURO: Alert & Oriented. Normal speech. PSYCH: Appropriate mood and affect. Procedures Debridement Date of Insertion: Aug 10, 2016 A/P Problem List: (1) Sacral decubitus ulcer ICD Code: L89.159 Status: Chronic (2) Urinary tract infection due to Proteus ICD Code: N39.0 Status: Resolved (3) Constipation ICD Code: K59.00 Status: Resolved (4) Paraplegia ICD Code: G82.20 Status: Chronic (5) Neurogenic bladder ICD Code: N31.9 Status: Chronic Assessment and Plan 35-year-old male with Paraplegic with Stage IV Chronic Sacral, trochanter, scrotal Ulcer, Present on admission. s/p eval by ID and IV Abx, arrangements made for Home Health at time of d/c however pt reports difficulty obtaining care at [facility]. ?homeless. CM assisting with placement. Wound culture grew MRSA, likely colonized from superficial swab. No further antibiotics for sacral wounds per ID. Continue recommendations per plastic surgery as well as wound VAC. Continue Dilaudid IV for breakthrough pain only. Advised patient to try to use oral pain medications instead of IV. E Coli/Proteus complicated urinary tract infection: Suprapubic catheter to be changed monthly Patient completed abx therapy Bowel regimen with history of constipation. Monitor ostomy output. Has been adequate so far. Whitney-Colace daily, Dulcolax as needed Neurogenic Bladder: Secondary to Paraplegia. Suprapubic catheter to be changed today 09/13/16. SANDY RN Paraplegia: At baseline. Continue home medications. Trapeze setup in place Multi-Podus boots PT DVT Prophylaxis: SCD/Teds/lovenox. Discharge Planning CM following and working on placement.. Problem Qualifiers (1) Sacral decubitus ulcer: Qualified Code: L89.154 - Decubitus ulcer of sacral region, stage 4 Bhavani Roth MD Sep 13, 2016 10:28
[2016-09-13 11:29] VITALS: BP 124/66; PULSE 89; RESP 20; TEMP 95.1; O2SAT 98
[2016-09-13] MEDS: diphenhydrAMINE HCL 25 MG CAP PO PRN (14:20)
[2016-09-13 16:00] VITALS: BP 116/76; PULSE 95; RESP 17; TEMP 97.7; O2SAT 99
[2016-09-13] MEDS: ENOXAPARIN SODIUM 40 MG/0.4 ML SYRINGE SQ SCH (17:35)
[2016-09-13] MEDS: LACTATED RINGER'S 1000 ML IV SCH (18:02)
[2016-09-13 20:00] VITALS: BP 138/77; PULSE 96; RESP 17; TEMP 96.8; O2SAT 100
[2016-09-13] MEDS: ALPRAZolam 1 MG TAB PO PRN (23:43)
[2016-09-14] VITALS: BP 123/72; PULSE 81; RESP 17; TEMP 97; O2SAT 100
[2016-09-14] MEDS: oxyCODONE/ACETAMINOPHEN 7.5 MG/325 MG TAB PO PRN ×5 (05:32→23:32)
[2016-09-14 08:00] VITALS: BP 112/73; PULSE 85; RESP 16; TEMP 97.9; O2SAT 98
[2016-09-14] MEDS: DOCUSATE SODIUM 50 MG/SENNA 8.6 MG TAB PO SCH (08:14)
[2016-09-14] MEDS: PANTOPRAZOLE SOD 40 MG DELAYED RELEASE TAB PO SCH (08:14)
[2016-09-14] MEDS: GABAPENTIN 400 MG CAP PO SCH ×3 (08:15→17:08)
[2016-09-14] MEDS: FERROUS SULFATE 325 MG (65 MG ELEMENTAL IRON) TAB PO SCH ×2 (08:15→17:08)
[2016-09-14] MEDS: HYDROCORTISONE 1% CREAM 30 GM TOPICAL SCH (08:15)
[2016-09-14] MEDS: LACTIC ACID (AMMONIUM LACTATE) 12% LOTION 225 GM BTL TOPICAL SCH ×2 (08:15→21:00)
[2016-09-14] MEDS: HYDROmorphone HCL PF 1 MG/ML VIAL IV PUSH PRN ×3 (08:19→21:56)
[2016-09-14 12:00] VITALS: BP 121/72; PULSE 86; RESP 17; TEMP 96.5; O2SAT 97
[2016-09-14 16:00] VITALS: BP 130/70; PULSE 96; RESP 16; TEMP 97.4; O2SAT 94
--- NOTE | 2016-09-14 16:46 | HHI.PR ---
Subjective Remarks Patient has no complaint today. Pain is controlled. No issues overnight. Objective Vitals Vital Signs Date Time Temp Pulse Resp B/P Pulse Ox O2 Delivery O2 Flow Rate FiO2 09/14/16 14:54 19 09/14/16 12:38 17 09/14/16 12:00 96.5 86 17 121/72 97 09/14/16 08:00 97.9 85 16 112/73 98 09/14/16 00:00 97.0 81 17 123/72 100 09/13/16 20:00 96.8 96 17 138/77 100 I/O 09/13/16 09/13/16 09/13/16 09/14/16 09/14/16 09/14/16 07:00 15:00 23:00 07:00 15:00 23:00 Intake Total 240 ml 1200 ml 240 ml 240 ml 0 ml Output Total 550 ml 625 ml 1400 ml 825 ml 25 ml Balance -310 ml 575 ml -1160 ml -585 ml -25 ml Intake Oral 240 ml 1200 ml 240 ml 240 ml IV Total 0 ml 0 ml 0 ml Output Urine Total 550 ml 625 ml 1100 ml 700 ml Stool Total 300 ml Drainage Total 0 ml 125 ml 25 ml # Bowel Movements 2 Objective Remarks GENERAL: Paraplegic male in no apparent distress. CARDIOVASCULAR: Normal rate and regular rhythm without murmurs, gallops, or rubs. RESPIRATORY: Good respiratory efforts. Breath sounds equal and clear to auscultation bilaterally. GASTROINTESTINAL: Abdomen soft, non-tender. Colostomy appear to be functioning. Normal active bowel sounds NEURO: Alert & Oriented. Normal speech. PSYCH: Appropriate mood and affect. Procedures Debridement Date of Insertion: Aug 10, 2016 A/P Problem List: (1) Sacral decubitus ulcer ICD Code: L89.159 Status: Chronic (2) Urinary tract infection due to Proteus ICD Code: N39.0 Status: Resolved (3) Constipation ICD Code: K59.00 Status: Resolved (4) Paraplegia ICD Code: G82.20 Status: Chronic (5) Neurogenic bladder ICD Code: N31.9 Status: Chronic Assessment and Plan 35-year-old male with Paraplegic with Stage IV Chronic Sacral, trochanter, scrotal Ulcer, Present on admission. s/p eval by ID and IV Abx, arrangements made for Home Health at time of d/c however pt reports difficulty obtaining care at [facility]. ?homeless. CM assisting with placement. Wound culture grew MRSA, likely colonized from superficial swab. No further antibiotics for sacral wounds per ID. Continue recommendations per plastic surgery as well as wound VAC. Continue Dilaudid IV for breakthrough pain only. Advised patient to try to use oral pain medications instead of IV. Will decrease dose of Dilaudid to 0.5 mg. E Coli/Proteus complicated urinary tract infection: Suprapubic catheter to be changed monthly Patient completed abx therapy Bowel regimen with history of constipation. Monitor ostomy output. Has been adequate so far. Whitney-Colace daily, Dulcolax as needed Neurogenic Bladder: Secondary to Paraplegia. Suprapubic catheter to be changed today 09/13/16. SANDY RN Paraplegia: At baseline. Continue home medications. Trapeze setup in place Multi-Podus boots PT DVT Prophylaxis: SCD/Teds/lovenox. Discharge Planning CM following and working on placement.. Problem Qualifiers (1) Sacral decubitus ulcer: Qualified Code: L89.154 - Decubitus ulcer of sacral region, stage 4 Bhavani Roth MD Sep 14, 2016 16:46
[2016-09-14] MEDS: ENOXAPARIN SODIUM 40 MG/0.4 ML SYRINGE SQ SCH (17:08)
[2016-09-14] MEDS: LACTATED RINGER'S 1000 ML IV SCH (18:03)
[2016-09-14 20:00] VITALS: BP 132/75; PULSE 91; RESP 17; TEMP 97.7; O2SAT 98
[2016-09-14] MEDS: ALPRAZolam 1 MG TAB PO PRN ×2 (21:56→23:19)
[2016-09-15] VITALS: BP 127/75; PULSE 89; RESP 17; TEMP 98; O2SAT 98
[2016-09-15] MEDS: HYDROmorphone HCL PF 1 MG/ML VIAL IV PUSH PRN ×3 (05:26→18:24)
[2016-09-15 08:00] VITALS: BP 118/73; PULSE 83; RESP 16; TEMP 97.4; O2SAT 97
[2016-09-15] MEDS: GABAPENTIN 400 MG CAP PO SCH ×3 (08:26→18:23)
[2016-09-15] MEDS: FERROUS SULFATE 325 MG (65 MG ELEMENTAL IRON) TAB PO SCH ×2 (08:27→18:23)
[2016-09-15] MEDS: oxyCODONE/ACETAMINOPHEN 7.5 MG/325 MG TAB PO PRN ×3 (08:27→21:48)
[2016-09-15] MEDS: DOCUSATE SODIUM 50 MG/SENNA 8.6 MG TAB PO SCH (08:27)
[2016-09-15] MEDS: PANTOPRAZOLE SOD 40 MG DELAYED RELEASE TAB PO SCH (08:27)
[2016-09-15] MEDS: HYDROCORTISONE 1% CREAM 30 GM TOPICAL SCH (08:28)
[2016-09-15] MEDS: LACTIC ACID (AMMONIUM LACTATE) 12% LOTION 225 GM BTL TOPICAL SCH ×2 (08:28→21:00)
--- NOTE | 2016-09-15 09:21 | HHI.PR ---
Subjective Remarks Patient has no new complaints. He said his pain is controlled. We discussed the need to decrease IV pain medication. Objective Vitals Vital Signs Date Time Temp Pulse Resp B/P Pulse Ox O2 Delivery O2 Flow Rate FiO2 09/15/16 08:00 97.4 83 16 118/73 97 09/15/16 00:00 98.0 89 17 127/75 98 09/14/16 20:00 97.7 91 17 132/75 98 09/14/16 18:09 17 09/14/16 16:00 97.4 96 16 130/70 94 09/14/16 14:54 19 09/14/16 12:00 96.5 86 17 121/72 97 I/O 09/14/16 09/14/16 09/14/16 09/15/16 09/15/16 09/15/16 07:00 15:00 23:00 07:00 15:00 23:00 Intake Total 240 ml 500 ml 480 ml 240 ml Output Total 825 ml 475 ml 300 ml 350 ml 1000 ml Balance -585 ml 25 ml 180 ml -110 ml -1000 ml Intake Oral 240 ml 500 ml 480 ml 240 ml IV Total 0 ml 0 ml Output Urine Total 700 ml 450 ml 300 ml 350 ml 1000 ml Drainage Total 125 ml 25 ml # Bowel Movements 0 Objective Remarks GENERAL: Paraplegic male in no apparent distress. CARDIOVASCULAR: Normal rate and regular rhythm without murmurs, gallops, or rubs. RESPIRATORY: Good respiratory efforts. Breath sounds equal and clear to auscultation bilaterally. GASTROINTESTINAL: Abdomen soft, non-tender. Colostomy appear to be functioning. Normal active bowel sounds NEURO: Alert & Oriented. Normal speech. PSYCH: Appropriate mood and affect. Procedures Debridement Date of Insertion: Aug 10, 2016 A/P Problem List: (1) Sacral decubitus ulcer ICD Code: L89.159 Status: Chronic (2) Urinary tract infection due to Proteus ICD Code: N39.0 Status: Resolved (3) Constipation ICD Code: K59.00 Status: Resolved (4) Paraplegia ICD Code: G82.20 Status: Chronic (5) Neurogenic bladder ICD Code: N31.9 Status: Chronic Assessment and Plan 35-year-old male with Paraplegic with Stage IV Chronic Sacral, trochanter, scrotal Ulcer, Present on admission. s/p eval by ID and IV Abx, arrangements made for Home Health at time of d/c however pt reports difficulty obtaining care at [facility]. ?homeless. CM assisting with placement. Wound culture grew MRSA, likely colonized from superficial swab. No further antibiotics for sacral wounds per ID. Continue recommendations per plastic surgery as well as wound VAC. Continue Dilaudid IV for breakthrough pain only. Low dose 0.5 mg every 6 hours as needed only. E Coli/Proteus complicated urinary tract infection: Suprapubic catheter to be changed monthly Patient completed abx therapy Bowel regimen with history of constipation. Monitor ostomy output. Has been adequate so far. Whitney-Colace daily, Dulcolax as needed Neurogenic Bladder: Secondary to Paraplegia. Suprapubic catheter to be changed today 09/13/16. SANDY RN Paraplegia: At baseline. Continue home medications. Trapeze setup in place Multi-Podus boots PT DVT Prophylaxis: SCD/Teds/lovenox. Discharge Planning CM following and working on placement.. Problem Qualifiers (1) Sacral decubitus ulcer: Qualified Code: L89.154 - Decubitus ulcer of sacral region, stage 4 Bhavani Roht MD Sep 15, 2016 09:21
[2016-09-15 12:00] VITALS: BP 115/64; PULSE 93; RESP 16; TEMP 96.8; O2SAT 95
[2016-09-15 16:00] VITALS: BP 120/71; PULSE 95; RESP 18; TEMP 98.1; O2SAT 97
[2016-09-15] MEDS: ENOXAPARIN SODIUM 40 MG/0.4 ML SYRINGE SQ SCH (16:03)
[2016-09-15] MEDS: LACTATED RINGER'S 1000 ML IV SCH (18:30)
[2016-09-15 20:00] VITALS: BP 118/74; PULSE 90; RESP 20; TEMP 98.5; O2SAT 95
[2016-09-16] VITALS: BP 125/74; PULSE 90; RESP 20; TEMP 97.9; O2SAT 96
[2016-09-16] MEDS: HYDROmorphone HCL PF 1 MG/ML VIAL IV PUSH PRN ×4 (00:52→22:54)
[2016-09-16] MEDS: PANTOPRAZOLE SOD 40 MG DELAYED RELEASE TAB PO SCH (07:43)
[2016-09-16] MEDS: DOCUSATE SODIUM 50 MG/SENNA 8.6 MG TAB PO SCH (07:43)
[2016-09-16] MEDS: oxyCODONE/ACETAMINOPHEN 7.5 MG/325 MG TAB PO PRN ×4 (07:43→21:13)
[2016-09-16] MEDS: GABAPENTIN 400 MG CAP PO SCH ×3 (07:43→16:05)
[2016-09-16] MEDS: HYDROCORTISONE 1% CREAM 30 GM TOPICAL SCH (07:43)
[2016-09-16] MEDS: FERROUS SULFATE 325 MG (65 MG ELEMENTAL IRON) TAB PO SCH ×2 (07:43→16:04)
[2016-09-16] MEDS: LACTIC ACID (AMMONIUM LACTATE) 12% LOTION 225 GM BTL TOPICAL SCH ×2 (07:44→21:13)
[2016-09-16 08:00] VITALS: BP 121/64; PULSE 78; RESP 17; TEMP 96.3; O2SAT 96
[2016-09-16 12:00] VITALS: BP 132/75; PULSE 65; RESP 17; TEMP 96.2; O2SAT 98
[2016-09-16 15:00] VITALS: BP 125/68; PULSE 76; RESP 17; TEMP 96.8; O2SAT 97
[2016-09-16] MEDS: LACTATED RINGER'S 1000 ML IV SCH (16:02)
[2016-09-16] MEDS: ENOXAPARIN SODIUM 40 MG/0.4 ML SYRINGE SQ SCH (16:04)
--- NOTE | 2016-09-16 16:16 | HHI.PR ---
Subjective Remarks No new issues. Pain is controlled. No overnight events. Objective Vitals Vital Signs Date Time Temp Pulse Resp B/P Pulse Ox O2 Delivery O2 Flow Rate FiO2 09/16/16 12:00 96.2 65 17 132/75 98 09/16/16 08:00 96.3 78 17 121/64 96 09/16/16 01:55 18 09/16/16 00:00 97.9 90 20 125/74 96 09/15/16 23:38 18 09/15/16 20:00 98.5 90 20 118/74 95 I/O 09/15/16 09/15/16 09/15/16 09/16/16 09/16/16 09/16/16 07:00 15:00 23:00 07:00 15:00 23:00 Intake Total 240 ml 480 ml 480 ml 240 ml 0 ml Output Total 350 ml 1000 ml 1000 ml 750 ml 500 ml Balance -110 ml -1000 ml -520 ml -270 ml -260 ml 0 ml Intake Oral 240 ml 480 ml 480 ml 240 ml IV Total 0 ml 0 ml 0 ml Output Urine Total 350 ml 1000 ml 1000 ml 750 ml 500 ml # Bowel Movements 1 Objective Remarks GENERAL: Paraplegic male in no apparent distress. CARDIOVASCULAR: Normal rate and regular rhythm without murmurs, gallops, or rubs. RESPIRATORY: Good respiratory efforts. Breath sounds equal and clear to auscultation bilaterally. GASTROINTESTINAL: Abdomen soft, non-tender. Colostomy appear to be functioning. Normal active bowel sounds NEURO: Alert & Oriented. Normal speech. PSYCH: Appropriate mood and affect. Procedures Debridement Date of Insertion: Aug 10, 2016 A/P Problem List: (1) Sacral decubitus ulcer ICD Code: L89.159 Status: Chronic (2) Urinary tract infection due to Proteus ICD Code: N39.0 Status: Resolved (3) Constipation ICD Code: K59.00 Status: Resolved (4) Paraplegia ICD Code: G82.20 Status: Chronic (5) Neurogenic bladder ICD Code: N31.9 Status: Chronic Assessment and Plan 35-year-old male with Paraplegic with Stage IV Chronic Sacral, trochanter, scrotal Ulcer, Present on admission. s/p eval by ID and IV Abx, arrangements made for Home Health at time of d/c however pt reports difficulty obtaining care at [facility]. ?homeless. CM assisting with placement. Wound culture grew MRSA, likely colonized from superficial swab. No further antibiotics for sacral wounds per ID. Continue recommendations per plastic surgery as well as wound VAC. Continue Dilaudid IV for breakthrough pain only. Low dose 0.5 mg every 6 hours as needed only. Advised patient to limit IV use. E Coli/Proteus complicated urinary tract infection: Suprapubic catheter to be changed monthly Patient completed abx therapy Bowel regimen with history of constipation. Monitor ostomy output. Has been adequate so far. Whitney-Colace daily, Dulcolax as needed Neurogenic Bladder: Secondary to Paraplegia. Suprapubic catheter to be changed today 09/13/16. SANDY RN Paraplegia: At baseline. Continue home medications. Trapeze setup in place Multi-Podus boots PT DVT Prophylaxis: SCD/Teds/lovenox. Discharge Planning CM following and working on placement.. Problem Qualifiers (1) Sacral decubitus ulcer: Qualified Code: L89.154 - Decubitus ulcer of sacral region, stage 4 Bhavani Roth MD Sep 16, 2016 16:15
[2016-09-16 20:00] VITALS: BP 116/62; PULSE 74; RESP 18; TEMP 97; O2SAT 98
[2016-09-16] MEDS: ALPRAZolam 1 MG TAB PO PRN (22:54)
[2016-09-17] VITALS: BP 120/67; PULSE 93; RESP 18; TEMP 97.2; O2SAT 98
[2016-09-17] MEDS: oxyCODONE/ACETAMINOPHEN 7.5 MG/325 MG TAB PO PRN ×4 (01:48→20:30)
[2016-09-17] MEDS: HYDROmorphone HCL PF 1 MG/ML VIAL IV PUSH PRN ×4 (05:17→22:11)
[2016-09-17] MEDS: DOCUSATE SODIUM 50 MG/SENNA 8.6 MG TAB PO SCH (07:48)
[2016-09-17] MEDS: GABAPENTIN 400 MG CAP PO SCH ×3 (07:49→15:20)
[2016-09-17] MEDS: LACTIC ACID (AMMONIUM LACTATE) 12% LOTION 225 GM BTL TOPICAL SCH ×2 (07:49→20:32)
[2016-09-17] MEDS: FERROUS SULFATE 325 MG (65 MG ELEMENTAL IRON) TAB PO SCH ×2 (07:49→15:20)
[2016-09-17] MEDS: PANTOPRAZOLE SOD 40 MG DELAYED RELEASE TAB PO SCH (07:49)
[2016-09-17] MEDS: HYDROCORTISONE 1% CREAM 30 GM TOPICAL SCH (07:49)
[2016-09-17 08:00] VITALS: BP 119/61; PULSE 76; RESP 17; TEMP 96.7; O2SAT 100
--- NOTE | 2016-09-17 09:17 | HHI.PR ---
Subjective Remarks Patient reports that he is feeling okay. Pain is controlled. No change in clinical status. Objective Vitals Vital Signs Date Time Temp Pulse Resp B/P Pulse Ox O2 Delivery O2 Flow Rate FiO2 09/17/16 08:00 96.7 76 17 119/61 100 09/17/16 00:00 97.2 93 18 120/67 98 09/16/16 20:00 97.0 74 18 116/62 98 09/16/16 15:00 96.8 76 17 125/68 97 09/16/16 12:00 96.2 65 17 132/75 98 I/O 09/16/16 09/16/16 09/16/16 09/17/16 09/17/16 09/17/16 07:00 15:00 23:00 07:00 15:00 23:00 Intake Total 480 ml 240 ml 460 ml 240 ml 0 ml Output Total 750 ml 500 ml 0 ml 1150 ml Balance -270 ml -260 ml 460 ml -910 ml 0 ml Intake Oral 480 ml 240 ml 460 ml 240 ml IV Total 0 ml 0 ml 0 ml 0 ml Output Urine Total 750 ml 500 ml 0 ml 1150 ml Drainage Total 0 ml # Bowel Movements 1 0 0 Objective Remarks GENERAL: Paraplegic male in no apparent distress. CARDIOVASCULAR: Normal rate and regular rhythm without murmurs, gallops, or rubs. RESPIRATORY: Good respiratory efforts. Breath sounds equal and clear to auscultation bilaterally. GASTROINTESTINAL: Abdomen soft, non-tender. Colostomy appear to be functioning. Normal active bowel sounds NEURO: Alert & Oriented. Normal speech. PSYCH: Appropriate mood and affect. Procedures Debridement Date of Insertion: Aug 10, 2016 A/P Problem List: (1) Sacral decubitus ulcer ICD Code: L89.159 Status: Chronic (2) Urinary tract infection due to Proteus ICD Code: N39.0 Status: Resolved (3) Constipation ICD Code: K59.00 Status: Resolved (4) Paraplegia ICD Code: G82.20 Status: Chronic (5) Neurogenic bladder ICD Code: N31.9 Status: Chronic Assessment and Plan 35-year-old male with Paraplegic with Stage IV Chronic Sacral, trochanter, scrotal Ulcer, Present on admission. s/p eval by ID and IV Abx, arrangements made for Home Health at time of d/c however pt reports difficulty obtaining care at home. ?homeless. CM assisting with placement. Wound culture grew MRSA, likely colonized from superficial swab. No further antibiotics for sacral wounds per ID. Continue treatment per plastic surgery as well as wound VAC. Continue Dilaudid IV for breakthrough pain only. Low dose 0.5 mg every 6 hours as needed only. Advised patient to limit IV use. E Coli/Proteus complicated urinary tract infection: Suprapubic catheter to be changed monthly Patient completed abx therapy Bowel regimen with history of constipation. Monitor ostomy output. Has been adequate so far. Whitney-Colace daily, Dulcolax as needed Neurogenic Bladder: Secondary to Paraplegia. Suprapubic catheter changed 09/13/16. Paraplegia: At baseline. Continue home medications. Trapeze setup in place Multi-Podus boots PT DVT Prophylaxis: SCD/Teds/lovenox. Discharge Planning CM following and working on placement.. Problem Qualifiers (1) Sacral decubitus ulcer: Qualified Code: L89.154 - Decubitus ulcer of sacral region, stage 4 Bhavani Roth MD Sep 17, 2016 09:17
[2016-09-17 12:00] VITALS: BP 114/59; PULSE 73; RESP 17; TEMP 96.4; O2SAT 99
[2016-09-17] MEDS: ENOXAPARIN SODIUM 40 MG/0.4 ML SYRINGE SQ SCH (15:20)
[2016-09-17] MEDS: LACTATED RINGER'S 1000 ML IV SCH (15:20)
[2016-09-17 16:00] VITALS: BP 113/57; PULSE 100; RESP 17; TEMP 96.9; O2SAT 91
[2016-09-17 20:00] VITALS: BP 119/57; PULSE 90; RESP 20; TEMP 97.7; O2SAT 97
[2016-09-17] MEDS: ALPRAZolam 1 MG TAB PO PRN ×2 (20:29→22:10)
[2016-09-18] VITALS: BP 115/58; PULSE 95; RESP 20; TEMP 97.5; O2SAT 100
[2016-09-18] MEDS: oxyCODONE/ACETAMINOPHEN 7.5 MG/325 MG TAB PO PRN ×4 (01:34→22:26)
[2016-09-18] MEDS: HYDROmorphone HCL PF 1 MG/ML VIAL IV PUSH PRN ×3 (05:30→16:42)
[2016-09-18 08:00] VITALS: BP 122/65; PULSE 102; RESP 18; TEMP 98.3; O2SAT 100
[2016-09-18] MEDS: HYDROCORTISONE 1% CREAM 30 GM TOPICAL SCH (09:00)
[2016-09-18] MEDS: LACTIC ACID (AMMONIUM LACTATE) 12% LOTION 225 GM BTL TOPICAL SCH ×2 (09:00→22:26)
[2016-09-18] MEDS: PANTOPRAZOLE SOD 40 MG DELAYED RELEASE TAB PO SCH (10:11)
[2016-09-18] MEDS: FERROUS SULFATE 325 MG (65 MG ELEMENTAL IRON) TAB PO SCH ×2 (10:11→18:15)
[2016-09-18] MEDS: GABAPENTIN 400 MG CAP PO SCH ×3 (10:11→18:15)
[2016-09-18] MEDS: DOCUSATE SODIUM 50 MG/SENNA 8.6 MG TAB PO SCH (10:11)
--- NOTE | 2016-09-18 10:59 | HHI.PR ---
Subjective Remarks Patient reports he is feeling okay. Using IV Dilaudid sparingly. Eating well. Objective Vitals Vital Signs Date Time Temp Pulse Resp B/P Pulse Ox O2 Delivery O2 Flow Rate FiO2 09/18/16 08:00 98.3 102 18 122/65 100 09/18/16 00:00 97.5 95 20 115/58 100 09/17/16 20:00 97.7 90 20 119/57 97 09/17/16 16:00 96.9 100 17 113/57 91 09/17/16 12:00 96.4 73 17 114/59 99 I/O 09/17/16 09/17/16 09/17/16 09/18/16 09/18/16 09/18/16 07:00 15:00 23:00 07:00 15:00 23:00 Intake Total 240 ml 240 ml 240 ml 240 ml Output Total 1150 ml 800 ml 1000 ml 300 ml Balance -910 ml -560 ml -760 ml -60 ml Intake Oral 240 ml 240 ml 240 ml 240 ml IV Total 0 ml 0 ml 0 ml Output Urine Total 1150 ml 800 ml 1000 ml 300 ml Drainage Total 0 ml # Bowel Movements 0 1 1 0 Objective Remarks GENERAL: Paraplegic male in no apparent distress. CARDIOVASCULAR: Normal rate and regular rhythm without murmurs, gallops, or rubs. RESPIRATORY: Good respiratory efforts. Breath sounds equal and clear to auscultation bilaterally. GASTROINTESTINAL: Abdomen soft, non-tender. Colostomy appear to be functioning. Normal active bowel sounds NEURO: Alert & Oriented. Normal speech. PSYCH: Appropriate mood and affect. Procedures Debridement Date of Insertion: Aug 10, 2016 A/P Problem List: (1) Sacral decubitus ulcer ICD Code: L89.159 Status: Chronic (2) Urinary tract infection due to Proteus ICD Code: N39.0 Status: Resolved (3) Constipation ICD Code: K59.00 Status: Resolved (4) Paraplegia ICD Code: G82.20 Status: Chronic (5) Neurogenic bladder ICD Code: N31.9 Status: Chronic Assessment and Plan 35-year-old male with Paraplegic with Stage IV Chronic Sacral, trochanter, scrotal Ulcer, Present on admission. s/p eval by ID and IV Abx, arrangements made for Home Health at time of d/c however pt reports difficulty obtaining care at home. ?homeless. CM assisting with placement. Wound culture grew MRSA, likely colonized from superficial swab. No further antibiotics for sacral wounds per ID. Continue treatment per plastic surgery as well as wound VAC. Continue Dilaudid IV for breakthrough pain only. Low dose 0.5 mg every 6 hours as needed. Advised patient to work on weaning off IV as tolerated. E Coli/Proteus complicated urinary tract infection: Suprapubic catheter to be changed monthly Patient completed abx therapy Bowel regimen with history of constipation. Monitor ostomy output. Has been adequate so far. Whitney-Colace daily, Dulcolax as needed Neurogenic Bladder: Secondary to Paraplegia. Suprapubic catheter changed 09/13/16. Paraplegia: At baseline. Continue home medications. Trapeze setup in place Multi-Podus boots PT DVT Prophylaxis: SCD/Teds/lovenox. Discharge Planning CM following. Difficult placement. Could go to [place] if okay with plastic surgery. Discussed with case management. Problem Qualifiers (1) Sacral decubitus ulcer: Qualified Code: L89.154 - Decubitus ulcer of sacral region, stage 4 Bhavani Roth MD Sep 18, 2016 10:59
[2016-09-18 12:00] VITALS: BP 123/58; PULSE 96; RESP 18; TEMP 95.9; O2SAT 99
[2016-09-18 16:00] VITALS: BP 141/71; PULSE 97; RESP 19; TEMP 97.5; O2SAT 99
[2016-09-18] MEDS: ENOXAPARIN SODIUM 40 MG/0.4 ML SYRINGE SQ SCH (16:43)
[2016-09-18] MEDS: LACTATED RINGER'S 1000 ML IV SCH (18:30)
[2016-09-18 20:00] VITALS: BP 122/59; PULSE 92; RESP 18; TEMP 98.5; O2SAT 95
[2016-09-18] MEDS: ALPRAZolam 1 MG TAB PO PRN (22:25)
[2016-09-19 00:35] VITALS: BP 129/77; PULSE 92; RESP 20; TEMP 97.1; O2SAT 95
[2016-09-19] MEDS: HYDROmorphone HCL PF 1 MG/ML VIAL IV PUSH PRN ×4 (00:39→21:12)
[2016-09-19 04:00] VITALS: BP 121/66; PULSE 83; RESP 18; TEMP 97.2; O2SAT 95
[2016-09-19 08:30] VITALS: BP 153/62; PULSE 91; RESP 18; TEMP 97; O2SAT 95
[2016-09-19] MEDS: FERROUS SULFATE 325 MG (65 MG ELEMENTAL IRON) TAB PO SCH ×2 (08:36→17:47)
[2016-09-19] MEDS: GABAPENTIN 400 MG CAP PO SCH ×3 (08:36→17:47)
[2016-09-19] MEDS: PANTOPRAZOLE SOD 40 MG DELAYED RELEASE TAB PO SCH (08:36)
[2016-09-19] MEDS: DOCUSATE SODIUM 50 MG/SENNA 8.6 MG TAB PO SCH (08:36)
[2016-09-19] MEDS: oxyCODONE/ACETAMINOPHEN 7.5 MG/325 MG TAB PO PRN ×3 (08:40→17:47)
[2016-09-19] MEDS: LACTIC ACID (AMMONIUM LACTATE) 12% LOTION 225 GM BTL TOPICAL SCH ×2 (09:00→21:00)
[2016-09-19] MEDS: HYDROCORTISONE 1% CREAM 30 GM TOPICAL SCH (09:00)
--- NOTE | 2016-09-19 11:57 | HHI.PR ---
Subjective Remarks Follow up: Paraplegic with Stage IV Chronic Sacral, trochanter, scrotal Ulcer, E Coli/Proteus complicated urinary tract infection, Paraplegia and Neurogenic Bladder Secondary to Paraplegia. Patient resting in bed able to awake to voice, offers no specific complaints. Patient reports pain is well controlled on current regiment. Patient denies SOB, chest pain, N/V/D/C, fevers of chills. Objective Vitals Vital Signs Date Time Temp Pulse Resp B/P Pulse Ox O2 Delivery O2 Flow Rate FiO2 09/19/16 09:58 18 09/19/16 09:40 18 09/19/16 08:30 97.0 91 18 153/62 95 09/19/16 04:00 97.2 83 18 121/66 95 09/19/16 00:35 97.1 92 20 129/77 95 09/18/16 20:00 98.5 92 18 122/59 95 09/18/16 16:00 97.5 97 19 141/71 99 09/18/16 12:00 95.9 96 18 123/58 99 I/O 09/18/16 09/18/16 09/18/16 09/19/16 09/19/16 09/19/16 07:00 15:00 23:00 07:00 15:00 23:00 Intake Total 240 ml 680 ml 480 ml 0 ml Output Total 300 ml 951 ml 1325 ml 800 ml Balance -60 ml -271 ml -845 ml -800 ml Intake Oral 240 ml 680 ml 480 ml IV Total 0 ml 0 ml Output Urine Total 300 ml 950 ml 1325 ml 800 ml Stool Total 1 ml # Bowel Movements 0 0 Objective Remarks GENERAL: Paraplegic male in no apparent distress. SKIN: wound vac in place and draining CARDIOVASCULAR: Normal rate and regular rhythm without murmurs, gallops, or rubs. RESPIRATORY: Good respiratory efforts. Breath sounds equal and clear to auscultation bilaterally. GASTROINTESTINAL: Abdomen soft, non-tender. Colostomy appear to be functioning. Normal active bowel sounds NEURO: Alert & Oriented. Normal speech. PSYCH: Appropriate mood and affect. Procedures Debridement Date of Insertion: Aug 10, 2016 A/P Problem List: (1) Sacral decubitus ulcer ICD Code: L89.159 Status: Chronic (2) Urinary tract infection due to Proteus ICD Code: N39.0 Status: Resolved (3) Constipation ICD Code: K59.00 Status: Resolved (4) Paraplegia ICD Code: G82.20 Status: Chronic (5) Neurogenic bladder ICD Code: N31.9 Status: Chronic Assessment and Plan 35-year-old male with Paraplegic with Stage IV Chronic Sacral, trochanter, scrotal Ulcer, Present on admission. s/p eval by ID and IV Abx, arrangements made for Home Health at time of d/c however pt reports difficulty obtaining care at home. ?homeless. CM assisting with placement. Wound culture grew MRSA, likely colonized from superficial swab. No further antibiotics for sacral wounds per ID. Continue treatment per plastic surgery as well as wound VAC. Continue Dilaudid IV for breakthrough pain only. Low dose 0.5 mg every 6 hours as needed. Advised patient to work on weaning off IV as tolerated. E Coli/Proteus complicated urinary tract infection: Suprapubic catheter to be changed monthly Patient completed abx therapy Bowel regimen with history of constipation. Monitor ostomy output. Has been adequate so far. Whitney-Colace daily, Dulcolax as needed Neurogenic Bladder: Secondary to Paraplegia. Suprapubic catheter changed 09/13/16. Paraplegia: At baseline. Continue home medications. Trapeze setup in place Multi-Podus boots PT Labs last checked 09/03/2016- recheck CBC and BMP in AM DVT Prophylaxis: SCD/Teds/lovenox. Discharge Planning CM following. Difficult placement. Could go to [place] Plastic surgery entered clearance to DC 09/18/2016. Discussed with patient and nursing Written by Slime Escamilla, acting as scribe for Dr. Wesley on 09/19/16 at 11:53. Attending Statement The documentation accurately reflects the work performed [id number] by me on at 11:53. Problem Qualifiers (1) Sacral decubitus ulcer: Qualified Code: L89.154 - Decubitus ulcer of sacral region, stage 4 Slime Escamilla Sep 19, 2016 11:57 Manuel Wesley DO Sep 19, 2016 13:33
[2016-09-19 12:30] VITALS: BP 117/73; PULSE 78; RESP 21; TEMP 95.8; O2SAT 96
[2016-09-19] MEDS: ENOXAPARIN SODIUM 40 MG/0.4 ML SYRINGE SQ SCH (15:37)
[2016-09-19] MEDS: LACTATED RINGER'S 1000 ML IV SCH (16:24)
[2016-09-19 17:11] VITALS: BP 125/70; PULSE 93; RESP 21; TEMP 96.5; O2SAT 92
[2016-09-19 20:00] VITALS: BP 123/58; PULSE 81; RESP 17; TEMP 97.8; O2SAT 96
[2016-09-20] VITALS: BP 109/55; PULSE 80; RESP 17; TEMP 96.5; O2SAT 97
[2016-09-20] MEDS: oxyCODONE/ACETAMINOPHEN 7.5 MG/325 MG TAB PO PRN ×6 (00:17→20:53)
[2016-09-20] MEDS: HYDROmorphone HCL PF 1 MG/ML VIAL IV PUSH PRN ×3 (05:32→17:33)
[2016-09-20 05:42] LABS: AUTOMATED NEUTROPHIL # 3.1 TH/MM3 (1.8-7.7); BASOPHIL % 0.4 % (0.0-2.0); EOSINOPHIL # 0.2 TH/MM3 (0-0.4); EOSINOPHIL % 2.5 % (0.0-4.0); HEMATOCRIT 34.1 % (39.0-51.0); HEMO FLAGS DIFF FINAL; LYMPH % 48.6 % (9.0-44.0); LYMPHOCYTE # 3.6 TH/MM3 (1.0-4.8); MEAN CELL VOLUME 82.4 FL (80.0-100.0); MEAN CORPUSCULAR HEMOGLOBIN 27.8 PG (27.0-34.0); MEAN CORPUSCULAR HGB CONC 33.8 % (32.0-36.0); MONO % 7.2 % (0.0-8.0); NEUT % 41.3 % (16.0-70.0); PLATELET COUNT 561 TH/MM3 (150-450); RED BLOOD COUNT 4.14 MIL/MM3 (4.50-5.90); WHITE BLOOD COUNT 7.5 TH/MM3 (4.0-11.0)
[2016-09-20 06:09] LABS: POTASSIUM 3.6 MEQ/L (3.5-5.1)
[2016-09-20 08:00] VITALS: BP 124/56; PULSE 86; RESP 19; TEMP 97; O2SAT 97
[2016-09-20] MEDS: FERROUS SULFATE 325 MG (65 MG ELEMENTAL IRON) TAB PO SCH ×2 (08:26→17:33)
[2016-09-20] MEDS: PANTOPRAZOLE SOD 40 MG DELAYED RELEASE TAB PO SCH (08:26)
[2016-09-20] MEDS: GABAPENTIN 400 MG CAP PO SCH ×3 (08:26→17:33)
[2016-09-20] MEDS: DOCUSATE SODIUM 50 MG/SENNA 8.6 MG TAB PO SCH (08:26)
[2016-09-20] MEDS: LACTIC ACID (AMMONIUM LACTATE) 12% LOTION 225 GM BTL TOPICAL SCH ×2 (08:28→21:00)
[2016-09-20] MEDS: HYDROCORTISONE 1% CREAM 30 GM TOPICAL SCH (09:00)
--- NOTE | 2016-09-20 09:38 | HHI.PR ---
Subjective Remarks The pt was resting comfortably in bed. He had no acute complaints. Objective Vitals Vital Signs Date Time Temp Pulse Resp B/P Pulse Ox O2 Delivery O2 Flow Rate FiO2 09/20/16 08:00 97.0 86 19 124/56 97 09/20/16 05:36 18 09/20/16 00:00 96.5 80 17 109/55 97 09/19/16 23:38 16 09/19/16 20:00 97.8 81 17 123/58 96 09/19/16 17:11 96.5 93 21 125/70 92 09/19/16 12:30 95.8 78 21 117/73 96 I/O 09/19/16 09/19/16 09/19/16 09/20/16 09/20/16 09/20/16 07:00 15:00 23:00 07:00 15:00 23:00 Intake Total 0 ml 700 ml 240 ml 240 ml Output Total 800 ml 796 ml 1750 ml 1000 ml Balance -800 ml -96 ml -1510 ml -760 ml Intake Oral 700 ml 240 ml 240 ml IV Total 0 ml 0 ml 0 ml Output Urine Total 800 ml 645 ml 1750 ml 1000 ml Stool Total 1 ml Drainage Total 150 ml 0 ml 0 ml Result Diagram: 09/20/168 09/20/168 Imaging Last Impressions Abdomen X-Ray 07/09/16 1518 Signed Impressions: Service Date/Time: Saturday, July 09, 2016 17:06 - CONCLUSION: 1. Moderate amount of stool. 2. No dilated loops of bowel or pneumoperitoneum. 3. Bilateral hip dysplasia. Wes Callejas Jr., MD Chest X-Ray 06/08/16 1341 Signed Impressions: Service Date/Time: May 14:46 - CONCLUSION: No acute cardiopulmonary abnormality is identified. Luis Felpie Guerra MD Abdomen/Pelvis CT 06/08/16 1341 Signed Impressions: Service Date/Time: May 18:40 - CONCLUSION: 1. The balloon portion of the suprapubic catheter is inside the prosthetic urethra. 2. Probable hepatic hemangioma. Ryanne Maya MD Objective Remarks GENERAL: Paraplegic male in no apparent distress. SKIN: Wound vac in place and draining CARDIOVASCULAR: Normal rate and regular rhythm without murmurs, gallops, or rubs. RESPIRATORY: Good respiratory efforts. Breath sounds equal and clear to auscultation bilaterally. GASTROINTESTINAL: Abdomen soft, non-tender. Colostomy appear to be functioning. Normal active bowel sounds NEURO: Alert & Oriented. Normal speech. PSYCH: Appropriate mood and affect. Procedures Debridement Medications and IVs Current Medications Medications (Trade) Dose Ordered Sig/Haja Route Start Time Stop Time Status Last Admin (Dulcolax Supp) 10 mg DAILY PRN [place] 06/08/16 20:00 (Tylenol) 650 mg Q6H PRN PO 06/08/16 20:00 (Xanax) 1 mg Q6H PRN PO 06/08/16 20:00 09/18/16 22:25 (Ferrous Sulfate) 325 mg BIDPC PO 06/09/16 09:00 09/20/16 08:26 (Neurontin) 800 mg TID PO 06/09/16 09:00 09/20/16 08:26 (ZyPREXA) 15 mg HS PO 06/08/16 21:00 09/19/16 21:11 (Protonix) 40 mg DAILY PO 06/09/16 09:00 09/20/16 08:26 (Benadryl) 25 mg Q4H PRN PO 06/23/16 16:00 09/13/16 14:20 (Whitney-Colace) 1 tab DAILY PO 07/11/16 09:00 09/20/16 08:26 (Lac-Hydrin 12% Lotion) 1 applic BID TOPICAL 07/24/16 11:00 09/20/16 08:28 (Percocet 7.5-325 Mg) 1 tab Q4H PRN PO 07/31/16 14:00 08/24/16 18:17 (Percocet 7.5-325 Mg) 2 tab Q4H PRN PO 07/31/16 14:00 09/20/16 08:25 (Zofran Odt) 4 mg Q6H PRN PO 08/11/16 07:15 (Hydrocortisone 1% Cream) 1 applic DAILY TOPICAL 08/18/16 14:00 09/19/16 09:00 Silver Nitrate/ Potassium Nitrate 1 appl 1 appl DAILY PRN TOPICAL 08/22/16 10:45 (Lr 1000 ml Inj) 1,000 ml @ 30 mls/hr Q24H IV 2/4/17 18:30 08/26/16 21:12 (Lovenox Inj) 40 mg Q24H SQ 08/28/16 16:00 09/19/16 15:37 (Dilaudid Pf Inj) 1 mg DAILY PRN IV PUSH 08/30/16 09:30 09/18/16 11:43 (Dilaudid Pf Inj) 0.5 mg Q6H PRN IV PUSH 09/14/16 17:30 09/20/16 05:32 Date of Insertion: Aug 10, 2016 A/P Problem List: (1) Sacral decubitus ulcer ICD Code: L89.159 Status: Chronic (2) Urinary tract infection due to Proteus ICD Code: N39.0 Status: Resolved (3) Constipation ICD Code: K59.00 Status: Resolved (4) Paraplegia ICD Code: G82.20 Status: Chronic (5) Neurogenic bladder ICD Code: N31.9 Status: Chronic Assessment and Plan Paraplegic with Stage IV Chronic Sacral, trochanter, scrotal Ulcer, Present on admission. s/p eval by ID and IV Abx, arrangements made for Home Health at time of d/c however pt reports difficulty obtaining care at home. ?homeless. CM assisting with placement. Wound culture grew MRSA, likely colonized from superficial swab. No further antibiotics for sacral wounds per ID. Continue treatment per plastic surgery as well as wound VAC. Continue Dilaudid IV for breakthrough pain only. Low dose 0.5 mg every 6 hours as needed. Advised patient to work on weaning off IV as tolerated. E Coli/Proteus complicated urinary tract infection Suprapubic catheter to be changed monthly. Last changed 09/13/16. Patient completed abx therapy Bowel regimen with history of constipation. - Monitor ostomy output. Has been adequate so far. - Whitney-Colace daily, Dulcolax as needed Paraplegia: At baseline. Continue home medications. Trapeze setup in place Multi-Podus boots PT DVT Prophylaxis: SCDs, Teds/ Lovenox. Discharge Planning CM following. Difficult placement. Could go to [place]. Problem Qualifiers (1) Sacral decubitus ulcer: Qualified Code: L89.154 - Decubitus ulcer of sacral region, stage 4 Manuel Wesley DO Sep 20, 2016 09:38
[2016-09-20] MEDS ORDERED: POTASSIUM CHLORIDE 25 MEQ EFFERVESCENT TAB PO ONE (09:45)
[2016-09-20 12:00] VITALS: BP 125/70; PULSE 67; RESP 18; TEMP 96.6; O2SAT 96
[2016-09-20 16:00] VITALS: BP 124/67; PULSE 76; RESP 19; TEMP 96.5; O2SAT 99
[2016-09-20] MEDS: ENOXAPARIN SODIUM 40 MG/0.4 ML SYRINGE SQ SCH (16:19)
[2016-09-20] MEDS: LACTATED RINGER'S 1000 ML IV SCH (18:30)
[2016-09-20 20:00] VITALS: BP_SYST 114; BP_SYST 116; BP_DIAS 57; BP_DIAS 60; PULSE 70; PULSE 74; RESP 18; RESP 20; TEMP 97.9; TEMP 98.2; O2SAT 94; O2SAT 96
[2016-09-20] MEDS: ALPRAZolam 1 MG TAB PO PRN (20:52)
[2016-09-21] VITALS: BP 116/60; PULSE 74; RESP 20; TEMP 98.2; O2SAT 94
[2016-09-21] MEDS: oxyCODONE/ACETAMINOPHEN 7.5 MG/325 MG TAB PO PRN ×5 (00:02→21:16)
[2016-09-21] MEDS: HYDROmorphone HCL PF 1 MG/ML VIAL IV PUSH PRN ×3 (00:06→17:55)
[2016-09-21] MEDS: DOCUSATE SODIUM 50 MG/SENNA 8.6 MG TAB PO SCH (07:48)
[2016-09-21] MEDS: PANTOPRAZOLE SOD 40 MG DELAYED RELEASE TAB PO SCH (07:48)
[2016-09-21] MEDS: FERROUS SULFATE 325 MG (65 MG ELEMENTAL IRON) TAB PO SCH ×2 (07:48→17:55)
[2016-09-21] MEDS: GABAPENTIN 400 MG CAP PO SCH ×3 (07:49→17:55)
[2016-09-21] MEDS: HYDROCORTISONE 1% CREAM 30 GM TOPICAL SCH (07:49)
[2016-09-21] MEDS: LACTIC ACID (AMMONIUM LACTATE) 12% LOTION 225 GM BTL TOPICAL SCH ×2 (07:49→20:10)
[2016-09-21 08:00] VITALS: BP 117/68; PULSE 76; RESP 16; TEMP 96.3; O2SAT 98
[2016-09-21 12:00] VITALS: BP 126/65; PULSE 71; RESP 17; TEMP 95.4; O2SAT 98
--- NOTE | 2016-09-21 13:22 | HHI.PR ---
Subjective Remarks The patient was resting in bed comfortably. He had no acute complaints. He understood that he was being transferred to [place]. Discussed with nursing. Objective Vitals Vital Signs Date Time Temp Pulse Resp B/P Pulse Ox O2 Delivery O2 Flow Rate FiO2 09/21/16 12:00 95.4 71 17 126/65 98 09/21/16 11:19 18 09/21/16 08:48 17 09/21/16 08:00 96.3 76 16 117/68 98 09/21/16 00:00 98.2 74 20 116/60 94 09/20/16 20:00 97.9 70 18 114/57 96 09/20/16 16:00 96.5 76 19 124/67 99 I/O 09/20/16 09/20/16 09/20/16 09/21/16 09/21/16 09/21/16 07:00 15:00 23:00 07:00 15:00 23:00 Intake Total 240 ml 801 ml 640 ml 720 ml Output Total 1000 ml 870 ml 400 ml 900 ml Balance -760 ml -69 ml 240 ml -180 ml Intake Oral 240 ml 795 ml 640 ml 720 ml IV Total 0 ml 6 ml Output Urine Total 1000 ml 850 ml 400 ml 900 ml Stool Total 0 ml Drainage Total 0 ml 20 ml # Bowel Movements 0 1 Result Diagram: 09/20/168 09/20/168 Imaging Last Impressions Abdomen X-Ray 07/09/16 1518 Signed Impressions: Service Date/Time: Saturday, July 09, 2016 17:06 - CONCLUSION: 1. Moderate amount of stool. 2. No dilated loops of bowel or pneumoperitoneum. 3. Bilateral hip dysplasia. Wes Callejas Jr., MD Chest X-Ray 06/08/16 1341 Signed Impressions: Service Date/Time: May 14:46 - CONCLUSION: No acute cardiopulmonary abnormality is identified. Luis Felipe Guerra MD Abdomen/Pelvis CT 06/08/16 1341 Signed Impressions: Service Date/Time: May 18:40 - CONCLUSION: 1. The balloon portion of the suprapubic catheter is inside the prosthetic urethra. 2. Probable hepatic hemangioma. Ryanne Maya MD Objective Remarks GENERAL: Paraplegic male in no apparent distress. SKIN: Wound vac in place. CARDIOVASCULAR: Normal rate and regular rhythm without murmurs, gallops, or rubs. RESPIRATORY: Good respiratory efforts. Breath sounds equal and clear to auscultation bilaterally. GASTROINTESTINAL: Abdomen soft, non-tender. Colostomy appear to be functioning. Normal active bowel sounds NEURO: Alert & Oriented. Normal speech. PSYCH: Appropriate mood and affect. Procedures Debridement Medications and IVs Current Medications Medications (Trade) Dose Ordered Sig/Haja Route Start Time Stop Time Status Last Admin (Dulcolax Supp) 10 mg DAILY PRN [place] 06/08/16 20:00 (Tylenol) 650 mg Q6H PRN PO 06/08/16 20:00 (Xanax) 1 mg Q6H PRN PO 06/08/16 20:00 09/20/16 20:52 (Ferrous Sulfate) 325 mg BIDPC PO 06/09/16 09:00 09/21/16 07:48 (Neurontin) 800 mg TID PO 06/09/16 09:00 09/21/16 12:30 (ZyPREXA) 15 mg HS PO 06/08/16 21:00 09/20/16 20:52 (Protonix) 40 mg DAILY PO 06/09/16 09:00 09/21/16 07:48 (Benadryl) 25 mg Q4H PRN PO 06/23/16 16:00 09/13/16 14:20 (Whitney-Colace) 1 tab DAILY PO 07/11/16 09:00 09/21/16 07:48 (Lac-Hydrin 12% Lotion) 1 applic BID TOPICAL 07/24/16 11:00 09/21/16 07:49 (Percocet 7.5-325 Mg) 1 tab Q4H PRN PO 07/31/16 14:00 08/24/16 18:17 (Percocet 7.5-325 Mg) 2 tab Q4H PRN PO 07/31/16 14:00 09/21/16 12:30 (Zofran Odt) 4 mg Q6H PRN PO 08/11/16 07:15 (Hydrocortisone 1% Cream) 1 applic DAILY TOPICAL 08/18/16 14:00 09/19/16 09:00 Silver Nitrate/ Potassium Nitrate 1 appl 1 appl DAILY PRN TOPICAL 08/22/16 10:45 (Lr 1000 ml Inj) 1,000 ml @ 30 mls/hr Q24H IV 08/26/16 18:30 08/26/16 21:12 (Lovenox Inj) 40 mg Q24H SQ 08/28/16 16:00 09/20/16 16:19 (Dilaudid Pf Inj) 1 mg DAILY PRN IV PUSH 08/30/16 09:30 09/20/16 10:56 (Dilaudid Pf Inj) 0.5 mg Q6H PRN IV PUSH 09/14/16 17:30 09/21/16 10:49 Date of Insertion: Aug 10, 2016 A/P Problem List: (1) Sacral decubitus ulcer ICD Code: L89.159 Status: Chronic (2) Urinary tract infection due to Proteus ICD Code: N39.0 Status: Resolved (3) Constipation ICD Code: K59.00 Status: Resolved (4) Paraplegia ICD Code: G82.20 Status: Chronic (5) Neurogenic bladder ICD Code: N31.9 Status: Chronic Assessment and Plan Paraplegic with Stage IV Chronic Sacral, trochanter, scrotal Ulcer, Present on admission. s/p eval by ID and IV Abx, arrangements made for Home Health at time of d/c however pt reports difficulty obtaining care at home. ?homeless. CM assisting with placement. Wound culture grew MRSA, likely colonized from superficial swab. No further antibiotics for sacral wounds per ID. Continue treatment per plastic surgery as well as wound VAC. Continue Dilaudid IV for breakthrough pain only. Low dose 0.5 mg every 6 hours as needed. Advised patient to work on weaning off IV as tolerated. - transfer to [place] 09/21. E Coli/Proteus complicated urinary tract infection Suprapubic catheter to be changed monthly. Last changed 09/13/16. Patient completed abx therapy Bowel regimen with history of constipation. - Monitor ostomy output. Has been adequate so far. - Whitney-Colace daily, Dulcolax as needed Paraplegia: At baseline. Continue home medications. Trapeze setup in place Multi-Podus boots PT DVT Prophylaxis: SCDs, Teds/ Lovenox. Discharge Planning CM following. Difficult placement. Transfer to [place]. Problem Qualifiers (1) Sacral decubitus ulcer: Qualified Code: L89.154 - Decubitus ulcer of sacral region, stage 4 Manuel Wesley DO Sep 21, 2016 13:22
[2016-09-21] MEDS: ENOXAPARIN SODIUM 40 MG/0.4 ML SYRINGE SQ SCH (16:43)
[2016-09-21] MEDS: LACTATED RINGER'S 1000 ML IV SCH (17:57)
[2016-09-21 20:00] VITALS: BP 118/78; PULSE 75; RESP 20; TEMP 98.9; O2SAT 97
[2016-09-21 23:00] VITALS: BP 118/78; PULSE 75; RESP 20; TEMP 98.9; O2SAT 97
[2016-09-22] MEDS: oxyCODONE/ACETAMINOPHEN 7.5 MG/325 MG TAB PO PRN (04:46)
[2016-09-22 08:00] VITALS: BP 111/64; PULSE 81; RESP 18; TEMP 97.1; O2SAT 95
[2016-09-22] MEDS: HYDROmorphone HCL PF 1 MG/ML VIAL IV PUSH PRN ×3 (08:13→12:16)
[2016-09-22] MEDS: FERROUS SULFATE 325 MG (65 MG ELEMENTAL IRON) TAB PO SCH ×2 (08:16→17:29)
[2016-09-22] MEDS: PANTOPRAZOLE SOD 40 MG DELAYED RELEASE TAB PO SCH (08:16)
[2016-09-22] MEDS: DOCUSATE SODIUM 50 MG/SENNA 8.6 MG TAB PO SCH (08:16)
[2016-09-22] MEDS: GABAPENTIN 400 MG CAP PO SCH ×3 (08:16→17:29)
[2016-09-22] MEDS: LACTIC ACID (AMMONIUM LACTATE) 12% LOTION 225 GM BTL TOPICAL SCH ×2 (08:17→21:27)
[2016-09-22] MEDS: HYDROCORTISONE 1% CREAM 30 GM TOPICAL SCH (08:17)
--- NOTE | 2016-09-22 13:53 | HHI.PR ---
Subjective Remarks 36-year-old male who is known to me from previous management. Patient was being managed at the main [place] transferred to [place] for care, however patient had to undergo further surgery on 08/27/[address] Gruber. According to medical records there is an order in the computer by Dr. Gruber on 09/07/16 for wound care instructions, and then another order on 09/18/16 of cleared from plastic surgery for discharge. Unable to see any progress notes pertaining to continue management or care by plastic surgery. Patient has not been transferred back to [place] for continued management and long-term care. Objective Vitals Vital Signs Date Time Temp Pulse Resp B/P Pulse Ox O2 Delivery O2 Flow Rate FiO2 09/22/16 08:00 97.1 81 18 111/64 95 09/21/16 23:00 98.9 75 20 118/78 97 09/21/16 20:00 98.9 75 20 118/78 97 09/21/16 17:44 17 I/O 09/21/16 09/21/16 09/21/16 09/22/16 09/22/16 09/22/16 07:00 15:00 23:00 07:00 15:00 23:00 Intake Total 720 ml 300 ml 420 ml 800 ml Output Total 900 ml 540 ml 750 ml Balance -180 ml -240 ml 420 ml 50 ml Intake Oral 720 ml 300 ml 420 ml 800 ml IV Total 0 ml Output Urine Total 900 ml 500 ml 750 ml Drainage Total 40 ml # Voids 0 # Bowel Movements 1 1 0 0 Result Diagram: 09/20/16 0448 09/20/16 0448 Objective Remarks GENERAL: Well-developed, well-nourished, in no acute distress. alert and orientated HEENT: Head is normocephalic without any lesions or masses noted. Facial features are symmetric. Eyes: Extraocular muscles are intact. Conjunctivae were clear. NECK: Supple without any masses. Trachea midline no deviation. No JVD, CARDIAC: Regular rhythm, regular rate. S1/S2 are heard. No murmurs gallops or rubs. LUNGS: Clear to auscultation bilaterally. No wheeze, rhonchi or rales. No use of accessory muscles on inspiration or expiration. ABDOMEN: Soft, nontender. Nondistended. Bowel sounds heard in all 4 quadrants. No organomegaly or masses. Negative rebound, negative guarding. Suprapubic catheter in place without any signs of infection. Colostomy noted EXTREMITIES: No edema, pulses are equal bilaterally. No cyanosis or clubbing NEUROLOGY: Mood and affect appear appropriate. Cranial nerves II through XII grossly intact. Procedures Debridement Urinary Catheter: Yes Assessment to: Continue Date of Insertion: Aug 10, 2016 Vascular Central Line Catheter: No A/P Assessment and Plan Mr. Byrd is a 35-year-old male with PMH of Anxiety, Paraplegia, Neurogenic Bladder s/p Suprapubic Cath, Chronic UTI and Chronic Sacral Decubitus Ulcer who presented for evaluation of sacral wound. Stage IV Chronic Sacral, trochanter, scrotal Ulcer in a paraplegic patient, Present at time of admission. Wound care nurse re-consulted, appreciate recommendations, Plastic surgery did perform excisional debridement of chronic decubitus of left trochanter, sacrum, right ischium, bases scrotal wound. 09/07/16 wound care orders written by plastic surgery 09/18/16 plastic surgery cleared for discharge Pain control Discontinue IV Dilaudid Continue oral Dilaudid 2-4 mg as needed. E Coli/Proteus complicated urinary tract infection: Suprapubic catheter to be changed monthly last changed 09/13/16 Patient completed antibiotic regimen Bowel regimen with history of constipation. Monitor ostomy output. Whitney-Colace daily, Dulcolax as needed Neurogenic Bladder: Secondary to Paraplegia. Suprapubic catheter changed 08/10/16 Paraplegia: At baseline. Continue home medications. Trapeze setup in place Multi-Podus boots PT eval, recommends SNF, case management assisting. --Consulted OT who made recommendations for wheelchair. Recommendations given to case management to obtain wheelchair for patient DVT Prophylaxis: SCD/Teds/lovenox. Discharge Planning Discharge planning per case management Sergei Larose Sep 22, 2016 13:53
[2016-09-22] MEDS ORDERED: HYDROmorphone HCL 4 MG TAB PO PRN (14:00)
[2016-09-22] MEDS: HYDROmorphone HCL 4 MG TAB PO PRN ×2 (15:54→21:26)
[2016-09-22] MEDS: ENOXAPARIN SODIUM 40 MG/0.4 ML SYRINGE SQ SCH (15:55)
[2016-09-22 20:21] VITALS: BP 132/76; PULSE 88; RESP 16; TEMP 96.5; O2SAT 94
[2016-09-22] MEDS: ALPRAZolam 1 MG TAB PO PRN (21:31)
[2016-09-23] MEDS: HYDROmorphone HCL 4 MG TAB PO PRN ×2 (05:59→12:59)
[2016-09-23 08:00] VITALS: BP 132/78; PULSE 88; RESP 16; TEMP 98; O2SAT 94
[2016-09-23] MEDS: HYDROCORTISONE 1% CREAM 30 GM TOPICAL SCH (09:00)
[2016-09-23] MEDS: FERROUS SULFATE 325 MG (65 MG ELEMENTAL IRON) TAB PO SCH ×2 (09:07→17:05)
[2016-09-23] MEDS: DOCUSATE SODIUM 50 MG/SENNA 8.6 MG TAB PO SCH (09:07)
[2016-09-23] MEDS: PANTOPRAZOLE SOD 40 MG DELAYED RELEASE TAB PO SCH (09:07)
[2016-09-23] MEDS: LACTIC ACID (AMMONIUM LACTATE) 12% LOTION 225 GM BTL TOPICAL SCH ×2 (09:07→20:45)
[2016-09-23] MEDS: GABAPENTIN 400 MG CAP PO SCH ×3 (09:07→17:05)
--- NOTE | 2016-09-23 14:46 | HHI.PR ---
Subjective Remarks Patient seen and examined today patient sleeping all day, lethargic, nursing staff indicates that patient is been sedated since use of Dilaudid every 4 hours. Objective Vitals Vital Signs Date Time Temp Pulse Resp B/P Pulse Ox O2 Delivery O2 Flow Rate FiO2 09/23/16 08:00 98.0 88 16 132/78 94 09/22/16 20:21 96.5 88 16 132/76 94 I/O 09/22/16 09/22/16 09/22/16 09/23/16 09/23/16 09/23/16 07:00 15:00 23:00 07:00 15:00 23:00 Intake Total 800 ml 240 ml Output Total 750 ml 150 ml 1200 ml 330 ml 800 ml Balance 50 ml 90 ml -1200 ml -330 ml -800 ml Intake Oral 800 ml 240 ml Output Urine Total 750 ml 150 ml 1200 ml 330 ml 800 ml # Bowel Movements 0 1 Result Diagram: 09/20/168 09/20/168 Objective Remarks GENERAL: Well-developed, well-nourished, in no acute distress. alert and orientated HEENT: Head is normocephalic without any lesions or masses noted. Facial features are symmetric. Eyes: Extraocular muscles are intact. Conjunctivae were clear. NECK: Supple without any masses. Trachea midline no deviation. No JVD, CARDIAC: Regular rhythm, regular rate. S1/S2 are heard. No murmurs gallops or rubs. LUNGS: Clear to auscultation bilaterally. No wheeze, rhonchi or rales. No use of accessory muscles on inspiration or expiration. ABDOMEN: Soft, nontender. Nondistended. Bowel sounds heard in all 4 quadrants. No organomegaly or masses. Negative rebound, negative guarding. Suprapubic catheter in place without any signs of infection. Colostomy noted EXTREMITIES: No edema, pulses are equal bilaterally. No cyanosis or clubbing NEUROLOGY: Mood and affect appear appropriate. Cranial nerves II through XII grossly intact. Procedures Debridement Urinary Catheter: Yes (suprapubic catheter) Assessment to: Continue Peterson insert reason: Stage III/IV Press Ulcer Date of Insertion: Aug 10, 2016 Vascular Central Line Catheter: No A/P Assessment and Plan Mr. Byrd is a 35-year-old male with PMH of Anxiety, Paraplegia, Neurogenic Bladder s/p Suprapubic Cath, Chronic UTI and Chronic Sacral Decubitus Ulcer who presented for evaluation of sacral wound. Stage IV Chronic Sacral, trochanter, scrotal Ulcer in a paraplegic patient, Present at time of admission. Wound care nurse re-consulted, appreciate recommendations, Wound VAC in place, wound care nurse to manage Plastic surgery did perform excisional debridement of chronic decubitus of left trochanter, sacrum, right ischium, bases scrotal wound. 09/07/16 wound care orders written by plastic surgery 09/18/16 plastic surgery cleared for discharge Pain control Continue oral Dilaudid 2mg every 6 hours as needed for pain E Coli/Proteus complicated urinary tract infection: Suprapubic catheter to be changed monthly last changed 09/13/16 Patient completed antibiotic regimen Bowel regimen with history of constipation. Monitor ostomy output. Whitney-Colace daily, Dulcolax as needed Neurogenic Bladder: Secondary to Paraplegia. Suprapubic catheter changed 08/10/16 Paraplegia: At baseline. Continue home medications. Trapeze setup in place Multi-Podus boots PT eval, recommends SNF, case management assisting. --Consulted OT who made recommendations for wheelchair. Recommendations given to case management to obtain wheelchair for patient DVT Prophylaxis: SCD/Teds/lovenox. Discharge Planning Discharge planning per case management Sergei Larose Sep 23, 2016 14:46
[2016-09-23] MEDS: ENOXAPARIN SODIUM 40 MG/0.4 ML SYRINGE SQ SCH (17:05)
[2016-09-23] MEDS: HYDROmorphone HCL 2 MG TAB PO PRN ×2 (17:05→21:17)
[2016-09-23 20:00] VITALS: BP 133/76; PULSE 75; RESP 21; TEMP 97.4; O2SAT 99
[2016-09-23] MEDS: ALPRAZolam 1 MG TAB PO PRN (20:44)
[2016-09-23] MEDS: ACETAMINOPHEN 325 MG TAB PO PRN (20:45)
[2016-09-24] MEDS: HYDROmorphone HCL 2 MG TAB PO PRN ×5 (03:53→21:03)
[2016-09-24] MEDS: GABAPENTIN 400 MG CAP PO SCH ×3 (07:44→17:01)
[2016-09-24] MEDS: PANTOPRAZOLE SOD 40 MG DELAYED RELEASE TAB PO SCH (07:45)
[2016-09-24] MEDS: DOCUSATE SODIUM 50 MG/SENNA 8.6 MG TAB PO SCH (07:45)
[2016-09-24] MEDS: FERROUS SULFATE 325 MG (65 MG ELEMENTAL IRON) TAB PO SCH ×2 (07:45→17:02)
[2016-09-24] MEDS: LACTIC ACID (AMMONIUM LACTATE) 12% LOTION 225 GM BTL TOPICAL SCH ×2 (07:47→21:04)
[2016-09-24] MEDS: HYDROCORTISONE 1% CREAM 30 GM TOPICAL SCH (07:47)
[2016-09-24 08:00] VITALS: BP 110/65; PULSE 84; RESP 17; TEMP 97.6; O2SAT 98
--- NOTE | 2016-09-24 11:12 | HHI.PR ---
Subjective Remarks Patient seen and examined today. Patient is asking to receive more pain medication to include Percocet for breakthrough. I discussed with him that he is on Dilaudid at this time and that was what he was taken prior. We'll continue with the present regimen at this time. Objective Vitals Vital Signs Date Time Temp Pulse Resp B/P Pulse Ox O2 Delivery O2 Flow Rate FiO2 09/24/16 09:00 12 09/24/16 08:00 97.6 84 17 110/65 98 09/23/16 20:00 97.4 75 21 133/76 99 I/O 09/23/16 09/23/16 09/23/16 09/24/16 09/24/16 09/24/16 07:00 15:00 23:00 07:00 15:00 23:00 Intake Total 480 ml 720 ml Output Total 330 ml 800 ml 700 ml 550 ml Balance -330 ml -800 ml -220 ml 170 ml Intake Oral 480 ml 720 ml Output Urine Total 330 ml 800 ml 700 ml 350 ml Stool Total 200 ml # Bowel Movements 1 0 Result Diagram: 09/20/168 09/20/16 0448 Objective Remarks GENERAL: Well-developed, well-nourished, in no acute distress. alert and orientated HEENT: Head is normocephalic without any lesions or masses noted. Facial features are symmetric. Eyes: Extraocular muscles are intact. Conjunctivae were clear. NECK: Supple without any masses. Trachea midline no deviation. No JVD, CARDIAC: Regular rhythm, regular rate. S1/S2 are heard. No murmurs gallops or rubs. LUNGS: Clear to auscultation bilaterally. No wheeze, rhonchi or rales. No use of accessory muscles on inspiration or expiration. ABDOMEN: Soft, nontender. Nondistended. Bowel sounds heard in all 4 quadrants. No organomegaly or masses. Negative rebound, negative guarding. Suprapubic catheter in place without any signs of infection. Colostomy noted EXTREMITIES: No edema, pulses are equal bilaterally. No cyanosis or clubbing NEUROLOGY: Mood and affect appear appropriate. Cranial nerves II through XII grossly intact. Procedures Debridement Urinary Catheter: Yes Assessment to: Continue Peterson insert reason: Stage III/IV Press Ulcer Date of Insertion: Aug 10, 2016 Vascular Central Line Catheter: No A/P Assessment and Plan Mr. Byrd is a 35-year-old male with PMH of Anxiety, Paraplegia, Neurogenic Bladder s/p Suprapubic Cath, Chronic UTI and Chronic Sacral Decubitus Ulcer who presented for evaluation of sacral wound. Stage IV Chronic Sacral, trochanter, scrotal Ulcer in a paraplegic patient, Present at time of admission. Wound care nurse re-consulted, appreciate recommendations, Wound VAC in place, wound care nurse to manage Plastic surgery did perform excisional debridement of chronic decubitus of left trochanter, sacrum, right ischium, bases scrotal wound. 09/07/16 wound care orders written by plastic surgery 09/18/16 plastic surgery cleared for discharge Pain control Continue oral Dilaudid 2mg every 6 hours as needed for pain E Coli/Proteus complicated urinary tract infection: Suprapubic catheter to be changed monthly last changed 09/13/16 Patient completed antibiotic regimen Bowel regimen with history of constipation. Monitor ostomy output. Whitney-Colace daily, Dulcolax as needed Neurogenic Bladder: Secondary to Paraplegia. Suprapubic catheter changed 08/10/16 Paraplegia: At baseline. Continue home medications. Trapeze setup in place Multi-Podus boots PT eval, recommends SNF, case management assisting. --Consulted OT who made recommendations for wheelchair. Recommendations given to case management to obtain wheelchair for patient DVT Prophylaxis: SCD/Teds/lovenox. Discharge Planning Discharge planning per case management Sergei Larose Sep 24, 2016 11:12
[2016-09-24] MEDS: ENOXAPARIN SODIUM 40 MG/0.4 ML SYRINGE SQ SCH (13:14)
[2016-09-24] MEDS: ACETAMINOPHEN 325 MG TAB PO PRN (19:51)
[2016-09-24 20:00] VITALS: BP 119/72; PULSE 83; RESP 21; TEMP 96.8; O2SAT 99
[2016-09-24] MEDS: ALPRAZolam 1 MG TAB PO PRN (21:03)
[2016-09-24 21:04] LABS: C. DIFF EPI 027 PRESUMPTIVE NEGATIVE (NEGATIVE); C. DIFF TOXIN PCR NEGATIVE (NEGATIVE)
[2016-09-25] MEDS: HYDROmorphone HCL 2 MG TAB PO PRN ×2 (01:03→06:55)
[2016-09-25] MEDS: ALPRAZolam 1 MG TAB PO PRN ×2 (06:54→21:02)
[2016-09-25] MEDS: FERROUS SULFATE 325 MG (65 MG ELEMENTAL IRON) TAB PO SCH ×2 (07:26→16:57)
[2016-09-25] MEDS: PANTOPRAZOLE SOD 40 MG DELAYED RELEASE TAB PO SCH (07:26)
[2016-09-25] MEDS: DOCUSATE SODIUM 50 MG/SENNA 8.6 MG TAB PO SCH (07:26)
[2016-09-25] MEDS: GABAPENTIN 400 MG CAP PO SCH ×3 (07:26→16:56)
[2016-09-25] MEDS: LACTIC ACID (AMMONIUM LACTATE) 12% LOTION 225 GM BTL TOPICAL SCH ×2 (07:28→21:02)
[2016-09-25] MEDS: HYDROCORTISONE 1% CREAM 30 GM TOPICAL SCH (07:28)
[2016-09-25 08:00] VITALS: BP 119/81; PULSE 71; RESP 16; TEMP 96.3; O2SAT 98
--- NOTE | 2016-09-25 09:52 | HHI.PR ---
Subjective Remarks Patient seen and examined today. Patient denies any new complaints. Patient indicates that Percocet works better for his pain than the Dilaudid. He is requesting if we can change it. Objective Vitals Vital Signs Date Time Temp Pulse Resp B/P Pulse Ox O2 Delivery O2 Flow Rate FiO2 09/25/16 08:00 96.3 71 16 119/81 98 09/24/16 20:00 96.8 83 21 119/72 99 09/24/16 14:21 12 I/O 09/24/16 09/24/16 09/24/16 09/25/16 09/25/16 09/25/16 07:00 15:00 23:00 07:00 15:00 23:00 Intake Total 720 ml 1200 ml 480 ml 50 ml Output Total 550 ml 1350 ml 625 ml Balance 170 ml -150 ml -145 ml 50 ml Intake Oral 720 ml 1200 ml 480 ml 50 ml Output Urine Total 350 ml 1350 ml 375 ml Stool Total 200 ml 250 ml # Bowel Movements 2 Objective Remarks GENERAL: Well-developed, well-nourished, in no acute distress. alert and orientated HEENT: Head is normocephalic without any lesions or masses noted. Facial features are symmetric. Eyes: Extraocular muscles are intact. Conjunctivae were clear. NECK: Supple without any masses. Trachea midline no deviation. No JVD, CARDIAC: Regular rhythm, regular rate. S1/S2 are heard. No murmurs gallops or rubs. LUNGS: Clear to auscultation bilaterally. No wheeze, rhonchi or rales. No use of accessory muscles on inspiration or expiration. ABDOMEN: Soft, nontender. Nondistended. Bowel sounds heard in all 4 quadrants. No organomegaly or masses. Negative rebound, negative guarding. Suprapubic catheter in place without any signs of infection. Colostomy noted EXTREMITIES: No edema, pulses are equal bilaterally. No cyanosis or clubbing NEUROLOGY: Mood and affect appear appropriate. Cranial nerves II through XII grossly intact. Procedures Debridement Urinary Catheter: Yes (suprapubic catheter) Assessment to: Continue Peterson insert reason: Stage III/IV Press Ulcer Date of Insertion: Aug 10, 2016 Vascular Central Line Catheter: No A/P Assessment and Plan Mr. Byrd is a 35-year-old male with PMH of Anxiety, Paraplegia, Neurogenic Bladder s/p Suprapubic Cath, Chronic UTI and Chronic Sacral Decubitus Ulcer who presented for evaluation of sacral wound. Stage IV Chronic Sacral, trochanter, scrotal Ulcer in a paraplegic patient, Present at time of admission. Wound care nurse re-consulted, appreciate recommendations, Wound VAC in place, wound care nurse to manage Plastic surgery did perform excisional debridement of chronic decubitus of left trochanter, sacrum, right ischium, bases scrotal wound. 09/07/16 wound care orders written by plastic surgery 09/18/16 plastic surgery cleared for discharge Pain control Discontinue Dilaudid 2mg every 6 hours as needed for pain Percocet 5 every 6 hours as needed for pain 15 Percocet 7.5 every 6 hours as needed for pain 6-10 E Coli/Proteus complicated urinary tract infection: Suprapubic catheter to be changed monthly last changed 09/13/16 Patient completed antibiotic regimen Bowel regimen with history of constipation. Monitor ostomy output. Whitney-Colace daily, Dulcolax as needed Neurogenic Bladder: Secondary to Paraplegia. Suprapubic catheter changed 08/10/16 Paraplegia: At baseline. Continue home medications. Trapeze setup in place Multi-Podus boots PT eval, recommends SNF, case management assisting. --Consulted OT who made recommendations for wheelchair. Recommendations given to case management to obtain wheelchair for patient DVT Prophylaxis: SCD/Teds/lovenox. Discharge Planning Discharge planning per case management Sergei Larose Sep 25, 2016 09:52
[2016-09-25] MEDS ORDERED: oxyCODONE/ACETAMINOPHEN 5 MG/325 MG TAB PO PRN (10:00)
[2016-09-25] MEDS: oxyCODONE/ACETAMINOPHEN 7.5 MG/325 MG TAB PO PRN ×3 (11:09→23:01)
[2016-09-25] MEDS: ENOXAPARIN SODIUM 40 MG/0.4 ML SYRINGE SQ SCH (11:12)
[2016-09-25 20:00] VITALS: BP 108/76; PULSE 80; RESP 18; TEMP 97.6; O2SAT 100
[2016-09-26] MEDS: oxyCODONE/ACETAMINOPHEN 7.5 MG/325 MG TAB PO PRN ×3 (05:45→19:44)
[2016-09-26] MEDS: ALPRAZolam 1 MG TAB PO PRN ×2 (05:45→19:41)
[2016-09-26] MEDS: PANTOPRAZOLE SOD 40 MG DELAYED RELEASE TAB PO SCH (07:45)
[2016-09-26] MEDS: FERROUS SULFATE 325 MG (65 MG ELEMENTAL IRON) TAB PO SCH ×2 (07:45→16:56)
[2016-09-26] MEDS: DOCUSATE SODIUM 50 MG/SENNA 8.6 MG TAB PO SCH (07:45)
[2016-09-26] MEDS: GABAPENTIN 400 MG CAP PO SCH ×3 (07:45→16:56)
[2016-09-26] MEDS: LACTIC ACID (AMMONIUM LACTATE) 12% LOTION 225 GM BTL TOPICAL SCH ×2 (07:48→20:29)
[2016-09-26] MEDS: HYDROCORTISONE 1% CREAM 30 GM TOPICAL SCH (07:48)
[2016-09-26 08:00] VITALS: BP 108/70; PULSE 77; RESP 18; TEMP 97.7; O2SAT 91
--- NOTE | 2016-09-26 10:35 | HHI.PR ---
Subjective Remarks Follow-up for pressure ulcers. Nurse states that the patient's urine is cloudy. He admits to chills but denies any vomiting or abdominal pain. He also states he has had diarrhea for 3 days 2 episodes per day. The patient has a colostomy bag and nurse states he has had liquidy stool which started at that time whereas it is normally more formed. Patient had a negative C. difficile test 2 days ago. Objective Vitals Vital Signs Date Time Temp Pulse Resp B/P Pulse Ox O2 Delivery O2 Flow Rate FiO2 09/26/16 08:00 97.7 77 18 108/70 91 09/25/16 20:00 97.6 80 18 108/76 100 I/O 09/25/16 09/25/16 09/25/16 09/26/16 09/26/16 09/26/16 07:00 15:00 23:00 07:00 15:00 23:00 Intake Total 480 ml 530 ml 550 ml 480 ml Output Total 625 ml 600 ml 750 ml 400 ml Balance -145 ml -70 ml -200 ml 80 ml Intake Oral 480 ml 530 ml 550 ml 480 ml Output Urine Total 375 ml 600 ml 750 ml 400 ml Stool Total 250 ml # Bowel Movements 0 0 Objective Remarks GENERAL: Well-nourished patient in no apparent distress blanket over his head when I enter the room. CARDIOVASCULAR: Regular rate and rhythm. RESPIRATORY: No accessory muscle use. Clear to auscultation. Breath sounds equal bilaterally. GASTROINTESTINAL: Abdomen non-tender. NEUROLOGICAL: Awake and alert. Normal speech. PSYCHIATRIC: Appropriate mood and affect; insight and judgment normal. Procedures Debridement Urinary Catheter: Yes Assessment to: Continue Peterson insert reason: Stage III/IV Press Ulcer Date of Insertion: Aug 10, 2016 Vascular Central Line Catheter: No A/P Problem List: (1) Sacral decubitus ulcer ICD Code: L89.159 Status: Chronic (2) Urinary tract infection due to Proteus ICD Code: N39.0 Status: Resolved (3) Constipation ICD Code: K59.00 Status: Resolved (4) Paraplegia ICD Code: G82.20 Status: Chronic (5) Neurogenic bladder ICD Code: N31.9 Status: Chronic Assessment and Plan Mr. Byrd is a 35-year-old male with PMH of Anxiety, Paraplegia, Neurogenic Bladder s/p Suprapubic Cath, Chronic UTI and Chronic Sacral Decubitus Ulcer who presented for evaluation of sacral wound. Stage IV Chronic Sacral, trochanter, scrotal Ulcer in a paraplegic patient, Present at time of admission. Wound care nurse re-consulted, appreciate recommendations, Wound VAC in place, wound care nurse to manage Plastic surgery did perform excisional debridement of chronic decubitus of left trochanter, sacrum, right ischium, bases scrotal wound. 09/07/16 wound care orders written by plastic surgery 09/18/16 plastic surgery cleared for discharge Pain control Discontinue Dilaudid 2mg every 6 hours as needed for pain Percocet 5 every 6 hours as needed for pain 15 Percocet 7.5 every 6 hours as needed for pain 6-10 Complicated urinary tract infection: Escherichia coli UTI on 06/08 and 07/06. Suprapubic catheter to be changed monthly last changed 09/13/16 Patient completed antibiotic regimen Nurse states patient has cloudy urine. He frequently complains of chills. He is afebrile. CBC ordered. Nurse later called and informed me urine is thick, milky white. Will order UA, although patient is at risk of colonization with E.coli due chronic catheter use. Bowel regimen with history of constipation. Monitor ostomy output. Recent watery stools. Negative C.diff on 09/24/16. Monitor. Whitney-Colace daily, Dulcolax as needed Neurogenic Bladder: Secondary to Paraplegia. Suprapubic catheter changed 08/10/16 Paraplegia: At baseline. Continue home medications. Trapeze setup in place Multi-Podus boots Continue PT and OT. DVT Prophylaxis: SCD/Teds, Lovenox. Discharge Planning PT recommends rehabilitation, wheelchair with removal arms and legs. No OT recommended. CM following. Problem Qualifiers (1) Sacral decubitus ulcer: Qualified Code: L89.154 - Decubitus ulcer of sacral region, stage 4 Lani Jensen Sep 26, 2016 10:35
[2016-09-26] MEDS: ENOXAPARIN SODIUM 40 MG/0.4 ML SYRINGE SQ SCH (16:56)
[2016-09-26 17:19] LABS: BLOOD, URINE SMALL (NEG); GLUCOSE,URINE NEG (NEG); KETONE, URINE NEG (NEG); PH, URINE 7.5 (5.0-8.5)
[2016-09-26 17:20] LABS: NITRITE,URINE POS (NEG)
[2016-09-26 17:25] LABS: URINE COLOR YELLOW (YELLW/STRAW)
[2016-09-26 17:27] LABS: BACTERIA, URINE FEW /hpf; COMMENT (UR) CULTURE INDICATED; CULTURE IF INDICATED CULTURE INDICATED; RBC, URINE 0-3 /hpf (0-3); SQUAMOUS EPITHELIAL CELL URINE 0-5 /hpf (0-5)
[2016-09-26 20:00] VITALS: BP 140/85; PULSE 73; RESP 20; TEMP 96.8; O2SAT 99
[2016-09-26 21:15] LABS: AUTOMATED NEUTROPHIL # 4.8 TH/MM3 (1.8-7.7); BASOPHIL % 0.5 % (0.0-2.0); EOSINOPHIL # 0.2 TH/MM3 (0-0.4); EOSINOPHIL % 2.1 % (0.0-4.0); HEMATOCRIT 35.5 % (39.0-51.0); HEMO FLAGS DIFF FINAL; LYMPH % 42.6 % (9.0-44.0); LYMPHOCYTE # 4.1 TH/MM3 (1.0-4.8); MEAN CELL VOLUME 82.8 FL (80.0-100.0); MEAN CORPUSCULAR HEMOGLOBIN 27.5 PG (27.0-34.0); MEAN CORPUSCULAR HGB CONC 33.2 % (32.0-36.0); NEUT % 50.8 % (16.0-70.0); PLATELET COUNT 616 TH/MM3 (150-450); RED BLOOD COUNT 4.29 MIL/MM3 (4.50-5.90); RED CELL DISTRIBUTION WIDTH 15.2 % (11.6-17.2); WHITE BLOOD COUNT 9.5 TH/MM3 (4.0-11.0)
[2016-09-26 21:35] LABS: POTASSIUM 3.5 MEQ/L (3.5-5.1)
[2016-09-26 21:37] LABS: BICARBONATE 25.1 MEQ/L (21.0-32.0)
[2016-09-27] MEDS: oxyCODONE/ACETAMINOPHEN 7.5 MG/325 MG TAB PO PRN ×4 (03:01→20:59)
[2016-09-27] MEDS: PANTOPRAZOLE SOD 40 MG DELAYED RELEASE TAB PO SCH (07:55)
[2016-09-27] MEDS: GABAPENTIN 400 MG CAP PO SCH ×3 (07:55→16:50)
[2016-09-27] MEDS: FERROUS SULFATE 325 MG (65 MG ELEMENTAL IRON) TAB PO SCH ×2 (07:55→16:50)
[2016-09-27] MEDS: DOCUSATE SODIUM 50 MG/SENNA 8.6 MG TAB PO SCH (07:55)
[2016-09-27] MEDS: LACTIC ACID (AMMONIUM LACTATE) 12% LOTION 225 GM BTL TOPICAL SCH ×2 (07:56→20:56)
[2016-09-27] MEDS: HYDROCORTISONE 1% CREAM 30 GM TOPICAL SCH (07:56)
[2016-09-27 08:00] VITALS: BP 104/77; PULSE 81; RESP 16; TEMP 97; O2SAT 98
--- NOTE | 2016-09-27 10:30 | HHI.PR ---
Subjective Remarks Follow-up for multiple ulcers. Patient requests IV pain medication. Still admits to chills but denies any vomiting. Still admits to liquid stools in his colostomy bag. Objective Vitals Vital Signs Date Time Temp Pulse Resp B/P Pulse Ox O2 Delivery O2 Flow Rate FiO2 09/27/16 08:00 97.0 81 16 104/77 98 09/26/16 20:00 96.8 73 20 140/85 99 09/26/16 15:34 14 I/O 09/26/16 09/26/16 09/26/16 09/27/16 09/27/16 09/27/16 07:00 15:00 23:00 07:00 15:00 23:00 Intake Total 480 ml 240 ml 560 ml 640 ml Output Total 400 ml 550 ml 600 ml 250 ml Balance 80 ml -310 ml -40 ml 390 ml Intake Oral 480 ml 240 ml 560 ml 640 ml Output Urine Total 400 ml 550 ml 600 ml 250 ml # Bowel Movements 0 1 0 0 Result Diagram: 09/26/16209909/26/16 2100 Objective Remarks GENERAL: Well-nourished well developed patient in no apparent distress. CARDIOVASCULAR: Regular rate and rhythm. RESPIRATORY: No accessory muscle use. Clear to auscultation. Breath sounds equal bilaterally. GASTROINTESTINAL: Abdomen non-tender. NEUROLOGICAL: Awake and alert. Normal speech. PSYCHIATRIC: Appropriate mood and affect; insight and judgment normal. Procedures Debridement Urinary Catheter: Yes Assessment to: Continue Peterson insert reason: Stage III/IV Press Ulcer Date of Insertion: Aug 10, 2016 Vascular Central Line Catheter: No A/P Problem List: (1) Sacral decubitus ulcer ICD Code: L89.159 Status: Chronic (2) Urinary tract infection due to Proteus ICD Code: N39.0 Status: Resolved (3) Constipation ICD Code: K59.00 Status: Resolved (4) Paraplegia ICD Code: G82.20 Status: Chronic (5) Neurogenic bladder ICD Code: N31.9 Status: Chronic Assessment and Plan Mr. Byrd is a 35-year-old male with PMH of Anxiety, Paraplegia, Neurogenic Bladder s/p Suprapubic Cath, Chronic UTI and Chronic Sacral Decubitus Ulcer who presented for evaluation of sacral wound. 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 Present at time of admission. Wound care nurse re-consulted, appreciate recommendations Wound VAC in place, wound care nurse to manage Plastic surgery did perform excisional debridement of chronic decubitus of left trochanter, sacrum, right ischium, bases scrotal wound. 09/07/16 wound care orders written by plastic surgery 09/18/16 plastic surgery cleared for discharge Pain control PO Dilaudid was discontinued Percocet 5 every 6 hours as needed for pain 1-5 Percocet 7.5 every 6 hours as needed for pain 6-10 Patient request IV pain medication. I will not be restarting IV Dilaudid. I will change the Percocet to more frequent dosing every 4 hours temporarily. Will avoid NSAIDs due to possible effect on wound healing. Complicated urinary tract infection: Escherichia coli UTI on 06/08 and 07/06. Suprapubic catheter to be changed monthly last changed 09/13/16 Patient completed antibiotic regimen UA 09/26 personally reviewed and appears infected. CBC 09/26 with normal WBC count. Patient afebrile. Will await urine culture prior to initiating any antibiotic treatment. Bowel regimen with history of constipation. Monitor ostomy output. Recent watery stools. Negative C.diff on 09/24/16. Monitor. Whitney-Colace daily, Dulcolax as needed Neurogenic Bladder: Secondary to Paraplegia. Suprapubic catheter changed 08/10/16 Paraplegia: At baseline. Continue home medications. Trapeze setup in place Multi-Podus boots Continue PT and OT. DVT Prophylaxis: SCD/Teds, Lovenox. Discharge Planning PT recommends rehabilitation, wheelchair with removal arms and legs. No OT recommended. CM following. Problem Qualifiers (1) Sacral decubitus ulcer: Qualified Code: L89.154 - Decubitus ulcer of sacral region, stage 4 Lani Jensen Sep 27, 2016 10:30
[2016-09-27] MEDS: ENOXAPARIN SODIUM 40 MG/0.4 ML SYRINGE SQ SCH (13:13)
[2016-09-27] MEDS ORDERED: oxyCODONE/ACETAMINOPHEN 5 MG/325 MG TAB PO PRN (19:00)
[2016-09-27] MEDS ORDERED: oxyCODONE/ACETAMINOPHEN 7.5 MG/325 MG TAB PO PRN (19:00)
[2016-09-27 20:00] VITALS: BP 129/76; PULSE 96; RESP 20; TEMP 96; O2SAT 97
[2016-09-27] MEDS: ALPRAZolam 1 MG TAB PO PRN (20:58)
[2016-09-28] MEDS: oxyCODONE/ACETAMINOPHEN 7.5 MG/325 MG TAB PO PRN ×5 (01:01→18:53)
[2016-09-28] MEDS: ALPRAZolam 1 MG TAB PO PRN ×2 (05:30→20:31)
[2016-09-28 08:00] VITALS: BP 104/74; PULSE 76; RESP 20; TEMP 96.1; O2SAT 97
[2016-09-28] MEDS: FERROUS SULFATE 325 MG (65 MG ELEMENTAL IRON) TAB PO SCH ×2 (10:33→17:44)
[2016-09-28] MEDS: GABAPENTIN 400 MG CAP PO SCH ×3 (10:33→17:44)
[2016-09-28] MEDS: DOCUSATE SODIUM 50 MG/SENNA 8.6 MG TAB PO SCH (10:33)
[2016-09-28] MEDS: PANTOPRAZOLE SOD 40 MG DELAYED RELEASE TAB PO SCH (10:33)
[2016-09-28] MEDS: HYDROCORTISONE 1% CREAM 30 GM TOPICAL SCH (10:34)
[2016-09-28] MEDS: LACTIC ACID (AMMONIUM LACTATE) 12% LOTION 225 GM BTL TOPICAL SCH ×2 (10:34→20:26)
--- NOTE | 2016-09-28 10:40 | HHI.PR ---
Subjective Remarks Follow up for decubitus ulcers. I spoke with the wound care nurse yesterday who states the patient had foul odor from his sacral and left trochanter pressure ulcers and she cultured the wounds. The patient denies any acute changes overnight. He denies any fevers or chills, abdominal pain, or vomiting. He states the stool is more formed now in his colostomy bag. Objective Vitals Vital Signs Date Time Temp Pulse Resp B/P Pulse Ox O2 Delivery O2 Flow Rate FiO2 09/28/16 08:00 96.1 76 20 104/74 97 09/27/16 20:00 96.0 96 20 129/76 97 09/27/16 17:57 14 I/O 09/27/16 09/27/16 09/27/16 09/28/16 09/28/16 09/28/16 07:00 15:00 23:00 07:00 15:00 23:00 Intake Total 640 ml 480 ml 550 ml 150 ml Output Total 250 ml 2000 ml 850 ml 700 ml Balance 390 ml -1520 ml -300 ml -550 ml Intake Oral 640 ml 480 ml 550 ml 150 ml Output Urine Total 250 ml 2000 ml 550 ml 500 ml Stool Total 300 ml 200 ml # Bowel Movements 0 2 Result Diagram: 09/26/16 2100 09/26/16 2100 Objective Remarks GENERAL: Well-nourished well developed patient in no apparent distress. CARDIOVASCULAR: Regular rate and rhythm. RESPIRATORY: No accessory muscle use. Clear to auscultation. Breath sounds equal bilaterally. GASTROINTESTINAL: Abdomen non-tender. Colostomy bag in place. NEUROLOGICAL: Awake and alert. Normal speech. PSYCHIATRIC: Appropriate mood and affect; insight and judgment normal. Procedures Debridement Urinary Catheter: Yes Assessment to: Continue Peterson insert reason: Stage III/IV Press Ulcer Date of Insertion: Aug 10, 2016 Vascular Central Line Catheter: No A/P Problem List: (1) Sacral decubitus ulcer ICD Code: L89.159 Status: Chronic (2) UTI (urinary tract infection) ICD Code: N39.0 Status: Acute (3) Constipation ICD Code: K59.00 Status: Resolved (4) Paraplegia ICD Code: G82.20 Status: Chronic (5) Neurogenic bladder ICD Code: N31.9 Status: Chronic Assessment and Plan Mr. Byrd is a 35-year-old male with PMH of Anxiety, Paraplegia, Neurogenic Bladder s/p Suprapubic Cath, Chronic UTI and Chronic Sacral Decubitus Ulcer who presented for evaluation of sacral wound. 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 Present at time of admission. Wound care nurse re-consulted, appreciate recommendations Wound VAC in place, wound care nurse to manage Plastic surgery did perform excisional debridement of chronic decubitus of left trochanter, sacrum, right ischium, scrotal wound. 09/28: I spoke with Sujey, wound care nurse, yesterday and today who states there is a foul odor from the decubitus ulcers. She obtained wound cultures from the sacrum and left trochanter. Final Gram stain on both reviewed and shows no white blood cells or organisms. Culture pending. She has spoken with Dr. Gruber who advised to discontinue the wound VAC for now. He advises applying Betadine moistened gauze loosely into the wound beds of sacrum and L trochanter and cover with dry dressing, to be changed daily. Pain control PO Dilaudid was discontinued Percocet 5 every 4 hours as needed for pain 1-5 Percocet 7.5 every 4 hours as needed for pain 6-10 Complicated urinary tract infection: Escherichia coli UTI on 06/08 and 07/06. History of proteus and E.coli UTI on last admission. Suprapubic catheter to be changed monthly last changed 09/13/16 Patient completed antibiotic regimen UA 09/26 appears infected. CBC 09/26 with normal WBC count. Patient afebrile. Final urine culture reviewed today with Proteus and Escherichia coli present. Patient has a history of both. Patient may be colonized, but urine continues to be cloudy per nursing and patient had chills yesterday and he informed nurse that it felt like he had a UTI. Sensitivities and m.i.c. reviewed. Patient will be started on Ceftriaxone 1 g q24 hours. Bowel regimen with history of constipation. Monitor ostomy output. Recent watery stools. Negative C.diff on 09/24/16. Monitor. Whitney-Colace daily, Dulcolax as needed Neurogenic Bladder: Secondary to Paraplegia. Suprapubic catheter changed 09/13/16 Paraplegia: At baseline. Continue home medications. Trapeze setup in place Multi-Podus boots Continue PT and OT. DVT Prophylaxis: SCD/Teds, Lovenox. Discharge Planning PT recommends rehabilitation, wheelchair with removal arms and legs. No OT recommended. CM following. Problem Qualifiers (1) Sacral decubitus ulcer: Qualified Code: L89.154 - Decubitus ulcer of sacral region, stage 4 (2) UTI (urinary tract infection): Lani Jensen Sep 28, 2016 10:40
[2016-09-28] MEDS: ENOXAPARIN SODIUM 40 MG/0.4 ML SYRINGE SQ SCH (14:16)
[2016-09-28] MEDS: cefTRIAXone INJ 1,000 MG in SODIUM CHLORIDE 0.9% INJ 100 ML IV SCH (14:18)
[2016-09-28 20:00] VITALS: BP 114/84; PULSE 87; RESP 20; TEMP 97; O2SAT 97
[2016-09-28] MEDS: oxyCODONE/ACETAMINOPHEN 5 MG/325 MG TAB PO PRN (20:32)
[2016-09-29 04:40] VITALS: BP 121/81; PULSE 96; RESP 20; TEMP 95.8; O2SAT 97
[2016-09-29] MEDS: oxyCODONE/ACETAMINOPHEN 5 MG/325 MG TAB PO PRN ×2 (05:21→20:33)
[2016-09-29 08:00] VITALS: BP 116/67; PULSE 84; RESP 20; TEMP 97.6; O2SAT 100
[2016-09-29] MEDS: LACTIC ACID (AMMONIUM LACTATE) 12% LOTION 225 GM BTL TOPICAL SCH ×2 (09:00→20:10)
[2016-09-29] MEDS: PANTOPRAZOLE SOD 40 MG DELAYED RELEASE TAB PO SCH (09:37)
[2016-09-29] MEDS: FERROUS SULFATE 325 MG (65 MG ELEMENTAL IRON) TAB PO SCH ×2 (09:37→17:56)
[2016-09-29] MEDS: DOCUSATE SODIUM 50 MG/SENNA 8.6 MG TAB PO SCH (09:37)
[2016-09-29] MEDS: GABAPENTIN 400 MG CAP PO SCH ×3 (09:37→17:56)
[2016-09-29] MEDS: HYDROCORTISONE 1% CREAM 30 GM TOPICAL SCH (09:38)
[2016-09-29] MEDS: oxyCODONE/ACETAMINOPHEN 7.5 MG/325 MG TAB PO PRN ×2 (11:08→15:50)
[2016-09-29 11:33] LABS: AUTOMATED NEUTROPHIL # 6.6 TH/MM3 (1.8-7.7); BASOPHIL % 0.2 % (0.0-2.0); EOSINOPHIL # 0.1 TH/MM3 (0-0.4); EOSINOPHIL % 1.1 % (0.0-4.0); HEMO FLAGS DIFF FINAL; LYMPH % 30.2 % (9.0-44.0); LYMPHOCYTE # 3.1 TH/MM3 (1.0-4.8); MEAN CELL VOLUME 82.7 FL (80.0-100.0); MEAN CORPUSCULAR HEMOGLOBIN 27.1 PG (27.0-34.0); MEAN CORPUSCULAR HGB CONC 32.8 % (32.0-36.0); MONO % 5.2 % (0.0-8.0); NEUT % 63.3 % (16.0-70.0); PLATELET COUNT 567 TH/MM3 (150-450); RED BLOOD COUNT 4.59 MIL/MM3 (4.50-5.90); RED CELL DISTRIBUTION WIDTH 14.9 % (11.6-17.2); WHITE BLOOD COUNT 10.3 TH/MM3 (4.0-11.0)
[2016-09-29 11:35] LABS: POTASSIUM 3.6 MEQ/L (3.5-5.1)
[2016-09-29 11:48] LABS: BICARBONATE 26.4 MEQ/L (21.0-32.0)
[2016-09-29 12:00] VITALS: BP 122/74; PULSE 79; RESP 18; TEMP 96.8
--- NOTE | 2016-09-29 12:12 | HHI.PR ---
Subjective Remarks Follow-up for UTI, decubitus ulcers. Patient denies any fevers or chills overnight. Denies any vomiting. Admits to low appetite. Objective Vitals Vital Signs Date Time Temp Pulse Resp B/P Pulse Ox O2 Delivery O2 Flow Rate FiO2 09/29/16 08:00 97.6 84 20 116/67 100 09/29/16 06:21 16 09/29/16 04:40 95.8 96 20 121/81 97 09/28/16 20:00 97.0 87 20 114/84 97 09/28/16 19:53 16 I/O 09/28/16 09/28/16 09/28/16 09/29/16 09/29/16 09/29/16 07:00 15:00 23:00 07:00 15:00 23:00 Intake Total 150 ml 720 ml 480 ml Output Total 700 ml 875 ml 900 ml Balance -550 ml -155 ml -420 ml Intake Oral 150 ml 720 ml 480 ml Output Urine Total 500 ml 875 ml 900 ml Stool Total 200 ml 0 ml # Bowel Movements 0 0 Result Diagram: 09/29/16 1115 09/29/16 1115 Objective Remarks GENERAL: Well-nourished well developed patient in no apparent distress. CARDIOVASCULAR: Regular rate and rhythm. RESPIRATORY: No accessory muscle use. Clear to auscultation. Breath sounds equal bilaterally. GASTROINTESTINAL: Abdomen non-tender. NEUROLOGICAL: Awake and alert. Normal speech. PSYCHIATRIC: Appropriate mood and affect; insight and judgment normal. Urine yellow and clear in Peterson bag. Procedures Debridement Urinary Catheter: Yes Assessment to: Continue Peterson insert reason: Stage III/IV Press Ulcer Date of Insertion: Aug 10, 2016 Vascular Central Line Catheter: No A/P Problem List: (1) Sacral decubitus ulcer ICD Code: L89.159 Status: Chronic (2) UTI (urinary tract infection) ICD Code: N39.0 Status: Acute (3) Constipation ICD Code: K59.00 Status: Resolved (4) Paraplegia ICD Code: G82.20 Status: Chronic (5) Neurogenic bladder ICD Code: N31.9 Status: Chronic Assessment and Plan Mr. Byrd is a 35-year-old male with PMH of Anxiety, Paraplegia, Neurogenic Bladder s/p Suprapubic Cath, Chronic UTI and Chronic Sacral Decubitus Ulcer who presented for evaluation of sacral wound. 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 Present at time of admission. Wound care nurse re-consulted, appreciate recommendations Wound VAC in place, wound care nurse to manage Plastic surgery did perform excisional debridement of chronic decubitus of left trochanter, sacrum, right ischium, scrotal wound. 09/28: I spoke with Sujey, wound care nurse, yesterday and today who states there is a foul odor from the decubitus ulcers. She obtained wound cultures from the sacrum and left trochanter. Final Gram stain on both reviewed and shows no white blood cells or organisms. She has spoken with Dr. Gruber who advised to discontinue the wound VAC for now. He advises applying Betadine moistened gauze loosely into the wound beds of sacrum and L trochanter and cover with dry dressing, to be changed daily. 09/29: White blood cell count normal at 10.3. Wound cultures from trochanter and sacrum positive for Proteus and MRSA. Discussed this with Dr. Ding. Infectious disease consulted. Pain control PO Dilaudid was discontinued Percocet 5 every 4 hours as needed for pain 1-5 Percocet 7.5 every 4 hours as needed for pain 6-10 Complicated urinary tract infection: Escherichia coli UTI on 06/08 and 07/06. History of proteus and E.coli UTI on last admission. Suprapubic catheter to be changed monthly last changed 09/13/16 Patient completed antibiotic regimen UA 09/26 with infection. Final urine culture with Proteus and Escherichia coli present. Patient has a history of both. Sensitivities and m.i.c. reviewed. Continue Ceftriaxone 1 g q24 hours. Bowel regimen with history of constipation. Monitor ostomy output. Recent watery stools. Negative C.diff on 09/24/16. Monitor. Whitney-Colace daily, Dulcolax as needed Neurogenic Bladder: Secondary to Paraplegia. Suprapubic catheter changed 09/13/16 Paraplegia: At baseline. Continue home medications. Trapeze setup in place Multi-Podus boots Continue PT and OT. DVT Prophylaxis: SCD/Teds, Lovenox. Discharge Planning PT recommends rehabilitation, wheelchair with removal arms and legs. No OT recommended. CM following. Problem Qualifiers (1) Sacral decubitus ulcer: Qualified Code: L89.154 - Decubitus ulcer of sacral region, stage 4 (2) UTI (urinary tract infection): Lani Jensen Sep 29, 2016 12:12
[2016-09-29] MEDS: cefTRIAXone INJ 1,000 MG in SODIUM CHLORIDE 0.9% INJ 100 ML IV SCH (13:06)
[2016-09-29] MEDS: ENOXAPARIN SODIUM 40 MG/0.4 ML SYRINGE SQ SCH (15:49)
[2016-09-29 16:00] VITALS: BP 102/77; PULSE 91; RESP 19; TEMP 96.4; O2SAT 97
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
[2016-09-29 20:00] VITALS: BP 115/60; PULSE 92; RESP 20; TEMP 97.6; O2SAT 95
[2016-09-29] MEDS: DAPTOmycin INJ 600 MG in SODIUM CHLORIDE 0.9% INJ 100 ML IV SCH (20:08)
[2016-09-29] MEDS: ALPRAZolam 1 MG TAB PO PRN (21:35)
[2016-09-30] MEDS: oxyCODONE/ACETAMINOPHEN 5 MG/325 MG TAB PO PRN (05:38)
[2016-09-30 08:00] VITALS: BP 124/67; PULSE 73; RESP 16; TEMP 97.2; O2SAT 96
[2016-09-30] MEDS: HYDROCORTISONE 1% CREAM 30 GM TOPICAL SCH (09:00)
[2016-09-30] MEDS: LACTIC ACID (AMMONIUM LACTATE) 12% LOTION 225 GM BTL TOPICAL SCH ×2 (09:00→20:50)
[2016-09-30] MEDS: PANTOPRAZOLE SOD 40 MG DELAYED RELEASE TAB PO SCH (09:27)
[2016-09-30] MEDS: GABAPENTIN 400 MG CAP PO SCH ×3 (09:27→17:37)
[2016-09-30] MEDS: FERROUS SULFATE 325 MG (65 MG ELEMENTAL IRON) TAB PO SCH ×2 (09:28→17:37)
[2016-09-30] MEDS: oxyCODONE/ACETAMINOPHEN 7.5 MG/325 MG TAB PO PRN ×3 (09:28→20:49)
[2016-09-30] MEDS: DOCUSATE SODIUM 50 MG/SENNA 8.6 MG TAB PO SCH (09:28)
--- NOTE | 2016-09-30 11:37 | HHI.PR ---
Subjective Remarks Follow-up for UTI and infected decubitus ulcers. Patient states he feels better. He denies any fevers or chills overnight. Denies any abdominal pain or vomiting. He again states stool is now formed in his colostomy bag. Objective Vitals Vital Signs Date Time Temp Pulse Resp B/P Pulse Ox O2 Delivery O2 Flow Rate FiO2 09/30/16 10:28 18 09/30/16 08:00 97.2 73 16 124/67 96 09/30/16 07:00 18 09/29/16 20:00 97.6 92 20 115/60 95 09/29/16 16:00 96.4 91 19 102/77 97 09/29/16 12:00 96.8 79 18 122/74 I/O 09/29/16 09/29/16 09/29/16 09/30/16 09/30/16 09/30/16 07:00 15:00 23:00 07:00 15:00 23:00 Intake Total 480 ml 460 ml 600 ml 480 ml Output Total 900 ml 1900 ml 2000 ml 700 ml Balance -420 ml -1440 ml -1400 ml -220 ml Intake Oral 480 ml 460 ml 600 ml 480 ml Output Urine Total 900 ml 1900 ml 2000 ml 700 ml Stool Total 0 ml # Bowel Movements 0 1 0 Result Diagram: 09/29/16 1115 09/29/16 1115 Objective Remarks GENERAL: Well-nourished well developed patient in no apparent distress. CARDIOVASCULAR: Regular rate and rhythm. RESPIRATORY: No accessory muscle use. Clear to auscultation. Breath sounds equal bilaterally. GASTROINTESTINAL: Abdomen non-tender, but distended which is chronic. Formed stool in colostomy bag. NEUROLOGICAL: Awake and alert. Normal speech. PSYCHIATRIC: Appropriate mood and affect; insight and judgment normal. Procedures Debridement Urinary Catheter: Yes Assessment to: Continue Peterson insert reason: Stage III/IV Press Ulcer Date of Insertion: Sep 13, 2016 Vascular Central Line Catheter: No A/P Problem List: (1) Sacral decubitus ulcer ICD Code: L89.159 Status: Chronic (2) UTI (urinary tract infection) ICD Code: N39.0 Status: Acute (3) Constipation ICD Code: K59.00 Status: Resolved (4) Paraplegia ICD Code: G82.20 Status: Chronic (5) Neurogenic bladder ICD Code: N31.9 Status: Chronic Assessment and Plan Mr. Byrd is a 35-year-old male with PMH of Anxiety, Paraplegia, Neurogenic Bladder s/p Suprapubic Cath, Chronic UTI and Chronic Sacral Decubitus Ulcer who presented for evaluation of sacral wound. 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 Present at time of admission. Wound care nurse re-consulted, appreciate recommendations Wound VAC in place, wound care nurse to manage Plastic surgery did perform excisional debridement of chronic decubitus of left trochanter, sacrum, right ischium, scrotal wound. 09/28: I spoke with Sujey, wound care nurse, yesterday and today who states there is a foul odor from the decubitus ulcers. She obtained wound cultures from the sacrum and left trochanter. Final Gram stain on both reviewed and shows no white blood cells or organisms. She has spoken with Dr. Gruber who advised to discontinue the wound VAC for now. He advises applying Betadine moistened gauze loosely into the wound beds of sacrum and L trochanter and cover with dry dressing, to be changed daily. 09/29: White blood cell count normal at 10.3. Wound cultures from trochanter and sacrum positive for Proteus and MRSA. Discussed this with Dr. Ding. Infectious disease consulted. 09/30: ID consultation appreciated. Patient started on IV daptomycin. ID recommends 3 weeks duration of treatment and recommends checking a CPK level twice per week to monitor for adverse reaction to antibiotic. CPK levels ordered for next week. Pain control PO Dilaudid was discontinued Percocet 5 every 4 hours as needed for pain 1-5 Percocet 7.5 every 4 hours as needed for pain 6-10 Now that patient's symptoms are improved will change Percocet back to every 6 hours. Complicated urinary tract infection: Escherichia coli UTI on 06/08 and 07/06. History of proteus and E.coli UTI on last admission. Suprapubic catheter to be changed monthly last changed 09/13/16 Patient completed antibiotic regimen UA 09/26 with infection. Final urine culture with Proteus and Escherichia coli present. Patient has a history of both. Sensitivities and m.i.c. reviewed. ID evaluated patient on 09/29; agrees with continuing Ceftriaxone 1 g q24 hours. Bowel regimen with history of constipation. Monitor ostomy output. Negative C.diff on 09/24/16. Monitor. Whitney-Colace daily, Dulcolax as needed Neurogenic Bladder: Secondary to Paraplegia. Suprapubic catheter changed 09/13/16 Paraplegia: At baseline. Continue home medications. Trapeze setup in place Multi-Podus boots Continue PT and OT. DVT Prophylaxis: SCD/Teds, Lovenox. Discharge Planning PT recommends rehabilitation, wheelchair with removal arms and legs. No OT recommended. CM following. Problem Qualifiers (1) Sacral decubitus ulcer: Qualified Code: L89.154 - Decubitus ulcer of sacral region, stage 4 (2) UTI (urinary tract infection): Lani Jensen Sep 30, 2016 11:36
[2016-09-30] MEDS: ALPRAZolam 1 MG TAB PO PRN ×2 (12:51→20:49)
[2016-09-30] MEDS: cefTRIAXone INJ 1,000 MG in SODIUM CHLORIDE 0.9% INJ 100 ML IV SCH (12:51)
[2016-09-30] MEDS: ENOXAPARIN SODIUM 40 MG/0.4 ML SYRINGE SQ SCH (17:36)
[2016-09-30] MEDS ORDERED: oxyCODONE/ACETAMINOPHEN 5 MG/325 MG TAB PO PRN (20:00)
[2016-09-30] MEDS: DAPTOmycin INJ 600 MG in SODIUM CHLORIDE 0.9% INJ 100 ML IV SCH (20:49)
[2016-09-30 21:09] VITALS: BP 131/90; PULSE 82; RESP 20; TEMP 96.5; O2SAT 95
[2016-10-01] MEDS: ALPRAZolam 1 MG TAB PO PRN ×2 (03:30→21:02)
[2016-10-01] MEDS: oxyCODONE/ACETAMINOPHEN 7.5 MG/325 MG TAB PO PRN ×4 (03:31→21:03)
[2016-10-01 08:00] VITALS: BP 124/87; PULSE 71; RESP 18; TEMP 97.2; O2SAT 96
[2016-10-01] MEDS: HYDROCORTISONE 1% CREAM 30 GM TOPICAL SCH (09:00)
[2016-10-01] MEDS: LACTIC ACID (AMMONIUM LACTATE) 12% LOTION 225 GM BTL TOPICAL SCH ×2 (09:00→21:03)
[2016-10-01] MEDS: DOCUSATE SODIUM 50 MG/SENNA 8.6 MG TAB PO SCH (09:34)
[2016-10-01] MEDS: GABAPENTIN 400 MG CAP PO SCH ×3 (09:34→18:20)
[2016-10-01] MEDS: FERROUS SULFATE 325 MG (65 MG ELEMENTAL IRON) TAB PO SCH ×2 (09:34→18:20)
[2016-10-01] MEDS: PANTOPRAZOLE SOD 40 MG DELAYED RELEASE TAB PO SCH (09:34)
[2016-10-01] MEDS: cefTRIAXone INJ 1,000 MG in SODIUM CHLORIDE 0.9% INJ 100 ML IV SCH (12:27)
[2016-10-01] MEDS: ENOXAPARIN SODIUM 40 MG/0.4 ML SYRINGE SQ SCH (15:45)
--- NOTE | 2016-10-01 17:06 | HHI.PR ---
Subjective Remarks Patient seen and evaluated today in follow-up for paraplegia and decubitus. No new complaints Objective Vitals Vital Signs Date Time Temp Pulse Resp B/P Pulse Ox O2 Delivery O2 Flow Rate FiO2 10/01/16 16:44 18 10/01/16 08:00 97.2 71 18 124/87 96 09/30/16 21:09 96.5 82 20 131/90 95 I/O 09/30/16 09/30/16 09/30/16 10/01/16 10/01/16 10/01/16 07:00 15:00 23:00 07:00 15:00 23:00 Intake Total 480 ml 156 ml Output Total 700 ml 2190 ml 900 ml Balance -220 ml -2034 ml -900 ml Intake Oral 480 ml IV Total 156 ml Output Urine Total 700 ml 1940 ml 900 ml Stool Total 250 ml # Bowel Movements 0 1 Result Diagram: 09/29/16 1115 09/29/16 1115 Objective Remarks Skin right heel ulcer, clean and dry Right buttocks pressure ulcer closed Left trochanteric pressure ulcer with improved granulation per report, serosanguineous drainage Sacral pressure ulcer with undetermined tunneling/undermining, posterior cervical wound clean dry dressing GENERAL: This is a well-nourished, well-developed patient, in no apparent distress. CARDIOVASCULAR: Regular rate and rhythm without murmurs, gallops, or rubs. RESPIRATORY: Clear to auscultation. Breath sounds equal bilaterally. No wheezes , rales, or rhonchi. GASTROINTESTINAL: Abdomen soft, non-tender, nondistended. Normal active bowel sounds MUSCULOSKELETAL: Extremities without clubbing, cyanosis, or edema. NEURO: Alert & Oriented x4 to person, place, time, situation. Paraplegia baseline PEG tube site with some superficial erosion but no overt signs of infection Colostomy site clean and dry Procedures Debridement Date of Insertion: Sep 13, 2016 A/P Assessment and Plan Hospital day #116. With wound infection. Continue ceftriaxone daptomycin for about 3 weeks. ID consultation appreciated Kristen Ding MD Oct 01, 2016 17:06
[2016-10-01] MEDS: DAPTOmycin INJ 600 MG in SODIUM CHLORIDE 0.9% INJ 100 ML IV SCH (21:01)
[2016-10-01 21:45] VITALS: BP 125/75; PULSE 87; RESP 16; TEMP 97.5; O2SAT 95
[2016-10-02 08:00] VITALS: BP 171/77; PULSE 77; RESP 18; TEMP 96.4; O2SAT 96
[2016-10-02] MEDS: HYDROCORTISONE 1% CREAM 30 GM TOPICAL SCH (09:00)
[2016-10-02] MEDS: LACTIC ACID (AMMONIUM LACTATE) 12% LOTION 225 GM BTL TOPICAL SCH ×2 (09:00→21:02)
--- NOTE | 2016-10-02 09:34 | HHI.PR ---
Subjective Remarks Follow-up for infected decubitus ulcers and UTI. Patient complains about the frequency of pain medication and I informed the patient that I only temporarily increased how often he received pain medication due to the wound VAC and acute infection. He was informed that prior to this he was on pain medication every 6 hours rather than 4. He denies any fevers or chills overnight. Objective Vitals Vital Signs Date Time Temp Pulse Resp B/P Pulse Ox O2 Delivery O2 Flow Rate FiO2 10/02/16 08:00 96.4 77 18 171/77 96 10/01/16 21:45 97.5 87 16 125/75 95 10/01/16 16:44 18 I/O 10/01/16 10/01/16 10/01/16 10/02/16 10/02/16 10/02/16 07:00 15:00 23:00 07:00 15:00 23:00 Intake Total 100 ml Output Total 900 ml 1800 ml 1650 ml Balance -900 ml -1700 ml -1650 ml IV Total 100 ml Output Urine Total 900 ml 1800 ml 1650 ml # Bowel Movements 0 Result Diagram: 09/29/16 1115 09/29/16 1115 Objective Remarks GENERAL: Well-nourished well developed patient in no apparent distress sleeping when I enter the room. CARDIOVASCULAR: Regular rate and rhythm. RESPIRATORY: No accessory muscle use. Clear to auscultation. Breath sounds equal bilaterally. GASTROINTESTINAL: Normoactive bowel sounds. Abdomen soft and non-tender, but distended which is chronic. Colostomy bag. NEUROLOGICAL: Awake and alert. Normal speech. PSYCHIATRIC: Appropriate mood and affect; insight and judgment normal. Procedures Debridement Urinary Catheter: Yes Assessment to: Continue Peterson insert reason: Stage III/IV Press Ulcer Date of Insertion: Sep 13, 2016 Vascular Central Line Catheter: No A/P Problem List: (1) Sacral decubitus ulcer ICD Code: L89.159 Status: Chronic (2) UTI (urinary tract infection) ICD Code: N39.0 Status: Acute (3) Constipation ICD Code: K59.00 Status: Resolved (4) Paraplegia ICD Code: G82.20 Status: Chronic (5) Neurogenic bladder ICD Code: N31.9 Status: Chronic Assessment and Plan Mr. Byrd is a 35-year-old male with PMH of Anxiety, Paraplegia, Neurogenic Bladder s/p Suprapubic Cath, Chronic UTI and Chronic Sacral Decubitus Ulcer who presented for evaluation of sacral wound. 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 Present at time of admission. Wound care nurse re-consulted, appreciate recommendations Wound VAC in place, wound care nurse to manage Plastic surgery did perform excisional debridement of chronic decubitus of left trochanter, sacrum, right ischium, scrotal wound. 09/28: I spoke with Sujey, wound care nurse, yesterday and today who states there is a foul odor from the decubitus ulcers. She obtained wound cultures from the sacrum and left trochanter. Final Gram stain on both reviewed and shows no white blood cells or organisms. She has spoken with Dr. Gruber who advised to discontinue the wound VAC for now. He advises applying Betadine moistened gauze loosely into the wound beds of sacrum and L trochanter and cover with dry dressing, to be changed daily. 09/29: White blood cell count normal at 10.3. Wound cultures from trochanter and sacrum positive for Proteus and MRSA. Discussed this with Dr. Ding. Infectious disease consulted. 09/30: ID consultation appreciated. Patient started on IV daptomycin. ID recommends 3 weeks duration of treatment and recommends checking a CPK level twice per week to monitor for adverse reaction to antibiotic. 10/02: CPK level today normal. Pain control PO Dilaudid was discontinued Percocet 5 every 6 hours as needed for pain 1-5 Percocet 7.5 every 6 hours as needed for pain 6-10 Complicated urinary tract infection: Escherichia coli UTI on 06/08 and 07/06. History of proteus and E.coli UTI on last admission. Suprapubic catheter to be changed monthly last changed 09/13/16 Patient completed antibiotic regimen UA 09/26 with infection. Final urine culture with Proteus and Escherichia coli present. Patient has a history of both. Sensitivities and m.i.c. reviewed. ID evaluated patient on 09/29; agrees with continuing Ceftriaxone 1 g q24 hours. 10/02: I confirmed with Dr. Resendiz that he would like patient to remain on Ceftriaxone also for 3 weeks duration. Bowel regimen with history of constipation. Monitor ostomy output. Negative C.diff on 09/24/16. Monitor. Whitney-Colace daily, Dulcolax as needed Neurogenic Bladder: Secondary to Paraplegia. Suprapubic catheter changed 09/13/16 Paraplegia: At baseline. Continue home medications. Trapeze setup in place Multi-Podus boots Continue PT and OT. DVT Prophylaxis: SCD/Teds, Lovenox. Discharge Planning PT recommends rehabilitation, wheelchair with removal arms and legs. No OT recommended. CM following. Problem Qualifiers (1) Sacral decubitus ulcer: Qualified Code: L89.154 - Decubitus ulcer of sacral region, stage 4 (2) UTI (urinary tract infection): Lani Jensen Oct 02, 2016 09:33
[2016-10-02] MEDS: oxyCODONE/ACETAMINOPHEN 7.5 MG/325 MG TAB PO PRN ×3 (10:03→22:59)
[2016-10-02] MEDS: FERROUS SULFATE 325 MG (65 MG ELEMENTAL IRON) TAB PO SCH ×2 (10:03→18:05)
[2016-10-02] MEDS: GABAPENTIN 400 MG CAP PO SCH ×3 (10:03→18:05)
[2016-10-02] MEDS: PANTOPRAZOLE SOD 40 MG DELAYED RELEASE TAB PO SCH (10:04)
[2016-10-02] MEDS: DOCUSATE SODIUM 50 MG/SENNA 8.6 MG TAB PO SCH (10:04)
[2016-10-02] MEDS: cefTRIAXone INJ 1,000 MG in SODIUM CHLORIDE 0.9% INJ 100 ML IV SCH (13:37)
[2016-10-02] MEDS: ENOXAPARIN SODIUM 40 MG/0.4 ML SYRINGE SQ SCH (16:37)
[2016-10-02 20:00] VITALS: BP 132/76; PULSE 93; RESP 20; TEMP 96.3; O2SAT 96
[2016-10-02] MEDS: DAPTOmycin INJ 600 MG in SODIUM CHLORIDE 0.9% INJ 100 ML IV SCH (21:03)
[2016-10-02] MEDS: ALPRAZolam 1 MG TAB PO PRN (21:14)
[2016-10-03 08:00] VITALS: BP 120/76; PULSE 78; RESP 18; TEMP 96.6; O2SAT 97
[2016-10-03] MEDS: GABAPENTIN 400 MG CAP PO SCH ×3 (10:05→17:16)
[2016-10-03] MEDS: DOCUSATE SODIUM 50 MG/SENNA 8.6 MG TAB PO SCH (10:05)
[2016-10-03] MEDS: PANTOPRAZOLE SOD 40 MG DELAYED RELEASE TAB PO SCH (10:05)
[2016-10-03] MEDS: HYDROCORTISONE 1% CREAM 30 GM TOPICAL SCH (10:06)
[2016-10-03] MEDS: FERROUS SULFATE 325 MG (65 MG ELEMENTAL IRON) TAB PO SCH ×2 (10:06→17:16)
[2016-10-03] MEDS: LACTIC ACID (AMMONIUM LACTATE) 12% LOTION 225 GM BTL TOPICAL SCH ×2 (10:06→20:12)
[2016-10-03] MEDS: oxyCODONE/ACETAMINOPHEN 7.5 MG/325 MG TAB PO PRN ×3 (10:09→23:36)
--- NOTE | 2016-10-03 13:55 | HHI.PR ---
Subjective Remarks Patient seen and examined today. Patient denies any new complaints. No change in clinical status. Objective Vitals Vital Signs Date Time Temp Pulse Resp B/P Pulse Ox O2 Delivery O2 Flow Rate FiO2 10/03/16 08:00 96.6 78 18 120/76 97 10/02/16 20:00 96.3 93 20 132/76 96 10/02/16 17:37 18 I/O 10/02/16 10/02/16 10/02/16 10/03/16 10/03/16 10/03/16 07:00 15:00 23:00 07:00 15:00 23:00 Intake Total 240 ml 960 ml 480 ml Output Total 1650 ml 700 ml 1650 ml 600 ml Balance -1650 ml -460 ml -690 ml -120 ml Intake Oral 240 ml 960 ml 480 ml Output Urine Total 1650 ml 700 ml 1650 ml 600 ml # Bowel Movements 0 0 Result Diagram: 09/29/16 1115 09/29/16 1115 Objective Remarks GENERAL: Well-developed, well-nourished, in no acute distress. alert and orientated HEENT: Head is normocephalic without any lesions or masses noted. Facial features are symmetric. Eyes: Extraocular muscles are intact. Conjunctivae were clear. NECK: Supple without any masses. Trachea midline no deviation. No JVD, CARDIAC: Regular rhythm, regular rate. S1/S2 are heard. No murmurs gallops or rubs. LUNGS: Clear to auscultation bilaterally. No wheeze, rhonchi or rales. No use of accessory muscles on inspiration or expiration. ABDOMEN: Soft, nontender. Nondistended. Bowel sounds heard in all 4 quadrants. No organomegaly or masses. Negative rebound, negative guarding. Suprapubic catheter in place without any signs of infection. Colostomy noted EXTREMITIES: No edema, pulses are equal bilaterally. No cyanosis or clubbing NEUROLOGY: Mood and affect appear appropriate. Cranial nerves II through XII grossly intact. Procedures Debridement Urinary Catheter: Yes Assessment to: Continue Peterson insert reason: Prolonged Immobilization Date of Insertion: Sep 13, 2016 Vascular Central Line Catheter: No A/P Assessment and Plan Mr. Byrd is a 35-year-old male with PMH of Anxiety, Paraplegia, Neurogenic Bladder s/p Suprapubic Cath, Chronic UTI and Chronic Sacral Decubitus Ulcer who presented for evaluation of sacral wound. Stage IV Chronic Sacral, trochanter, scrotal Ulcer in a paraplegic patient, Present at time of admission. Wound care nurse re-consulted, appreciate recommendations, Plastic surgery did perform excisional debridement of chronic decubitus of left trochanter, sacrum, right ischium, bases scrotal wound. 09/07/16 wound care orders written by plastic surgery 09/28/16: Plastic surgery discontinued wound VAC with application of Betadine moistened gauze Infectious disease consulted because of wound cultures with Proteus mirabilis, MRSA. Urine culture with Proteus mirabilis and Escherichia coli. Daptomycin started by infectious disease. Recommending three-week duration Monitoring labs, CPK level twice weekly Pain control Percocet 5 every 6 hours as needed for pain 15 Percocet 7.5 every 6 hours as needed for pain 6-10 E Coli/Proteus complicated urinary tract infection: Suprapubic catheter to be changed monthly last changed 09/13/16, replace Peterson and recheck culture Patient completed antibiotic regimen Infectious disease recommending Rocephin for 3 weeks Bowel regimen with history of constipation. Monitor ostomy output. Whitney-Colace daily, Dulcolax as needed Neurogenic Bladder: Secondary to Paraplegia. Suprapubic catheter changed 09/13/16 Paraplegia: At baseline. Continue home medications. Trapeze setup in place Multi-Podus boots PT eval, recommends SNF, case management assisting. --Consulted OT who made recommendations for wheelchair. Recommendations given to case management to obtain wheelchair for patient DVT Prophylaxis: SCD/Teds/lovenox. Discharge Planning Discharge planning per case management Sergei Larose Oct 03, 2016 13:55
[2016-10-03] MEDS: cefTRIAXone INJ 1,000 MG in SODIUM CHLORIDE 0.9% INJ 100 ML IV SCH (14:20)
[2016-10-03] MEDS: ENOXAPARIN SODIUM 40 MG/0.4 ML SYRINGE SQ SCH (14:21)
[2016-10-03 20:00] VITALS: BP 117/71; PULSE 88; RESP 20; TEMP 95.9; O2SAT 95
[2016-10-03] MEDS: DAPTOmycin INJ 600 MG in SODIUM CHLORIDE 0.9% INJ 100 ML IV SCH (20:10)
[2016-10-03] MEDS: ALPRAZolam 1 MG TAB PO PRN (20:30)
[2016-10-04 07:15] VITALS: BP 127/79; PULSE 78; RESP 20; TEMP 95.8; O2SAT 96
[2016-10-04] MEDS: DOCUSATE SODIUM 50 MG/SENNA 8.6 MG TAB PO SCH (08:39)
[2016-10-04] MEDS: PANTOPRAZOLE SOD 40 MG DELAYED RELEASE TAB PO SCH (08:39)
[2016-10-04] MEDS: GABAPENTIN 400 MG CAP PO SCH ×3 (08:39→17:15)
[2016-10-04] MEDS: FERROUS SULFATE 325 MG (65 MG ELEMENTAL IRON) TAB PO SCH ×2 (08:39→17:15)
[2016-10-04] MEDS: HYDROCORTISONE 1% CREAM 30 GM TOPICAL SCH (08:40)
[2016-10-04] MEDS: LACTIC ACID (AMMONIUM LACTATE) 12% LOTION 225 GM BTL TOPICAL SCH ×2 (08:40→22:07)
[2016-10-04] MEDS: oxyCODONE/ACETAMINOPHEN 7.5 MG/325 MG TAB PO PRN ×3 (08:46→22:06)
--- NOTE | 2016-10-04 09:16 | HHI.PR ---
Subjective Remarks Patient seen and examined today. Patient denies any new complaints. No change clinical status. Objective Vitals Vital Signs Date Time Temp Pulse Resp B/P Pulse Ox O2 Delivery O2 Flow Rate FiO2 10/03/16 20:00 95.9 88 20 117/71 95 I/O 10/03/16 10/03/16 10/03/16 10/04/16 10/04/16 10/04/16 07:00 15:00 23:00 07:00 15:00 23:00 Intake Total 480 ml 720 ml 720 ml 240 ml Output Total 600 ml 1850 ml 1100 ml Balance -120 ml 720 ml -1130 ml -860 ml Intake Oral 480 ml 720 ml 720 ml 240 ml Output Urine Total 600 ml 1850 ml 900 ml Stool Total 200 ml # Bowel Movements 0 1 Objective Remarks GENERAL: Well-developed, well-nourished, in no acute distress. alert and orientated HEENT: Head is normocephalic without any lesions or masses noted. Facial features are symmetric. Eyes: Extraocular muscles are intact. Conjunctivae were clear. NECK: Supple without any masses. Trachea midline no deviation. No JVD, CARDIAC: Regular rhythm, regular rate. S1/S2 are heard. No murmurs gallops or rubs. LUNGS: Clear to auscultation bilaterally. No wheeze, rhonchi or rales. No use of accessory muscles on inspiration or expiration. ABDOMEN: Soft, nontender. Nondistended. Bowel sounds heard in all 4 quadrants. No organomegaly or masses. Negative rebound, negative guarding. Suprapubic catheter in place without any signs of infection. Colostomy noted EXTREMITIES: No edema, pulses are equal bilaterally. No cyanosis or clubbing NEUROLOGY: Mood and affect appear appropriate. Cranial nerves II through XII grossly intact. Procedures Debridement Urinary Catheter: Yes Assessment to: Continue Peterson insert reason: Stage III/IV Press Ulcer Date of Insertion: Sep 13, 2016 Vascular Central Line Catheter: No A/P Assessment and Plan Mr. Byrd is a 35-year-old male with PMH of Anxiety, Paraplegia, Neurogenic Bladder s/p Suprapubic Cath, Chronic UTI and Chronic Sacral Decubitus Ulcer who presented for evaluation of sacral wound. Stage IV Chronic Sacral, trochanter, scrotal Ulcer in a paraplegic patient, Present at time of admission. Wound care nurse re-consulted, appreciate recommendations, Plastic surgery did perform excisional debridement of chronic decubitus of left trochanter, sacrum, right ischium, bases scrotal wound. 09/07/16 wound care orders written by plastic surgery 09/28/16: Plastic surgery discontinued wound VAC with application of Betadine moistened gauze Infectious disease consulted because of wound cultures with Proteus mirabilis, MRSA. Urine culture with Proteus mirabilis and Escherichia coli. Daptomycin started by infectious disease. Recommending three-week duration Monitoring labs, CPK level twice weekly Pain control Percocet 5 every 6 hours as needed for pain 15 Percocet 7.5 every 6 hours as needed for pain 6-10 E Coli/Proteus complicated urinary tract infection: Suprapubic catheter to be changed monthly last changed 09/13/16, replace Peterson and recheck culture Patient completed antibiotic regimen Infectious disease recommending Rocephin for 3 weeks Bowel regimen with history of constipation. Monitor ostomy output. Whitney-Colace daily, Dulcolax as needed Neurogenic Bladder: Secondary to Paraplegia. Suprapubic catheter changed 09/13/16 Paraplegia: At baseline. Continue home medications. Trapeze setup in place Multi-Podus boots PT eval, recommends SNF, case management assisting. --Consulted OT who made recommendations for wheelchair. Recommendations given to case management to obtain wheelchair for patient DVT Prophylaxis: SCD/Teds/lovenox. Discharge Planning Discharge planning per case management, Sergei Larose Oct 04, 2016 09:15
[2016-10-04] MEDS: cefTRIAXone INJ 1,000 MG in SODIUM CHLORIDE 0.9% INJ 100 ML IV SCH (13:22)
[2016-10-04] MEDS: ENOXAPARIN SODIUM 40 MG/0.4 ML SYRINGE SQ SCH (16:50)
[2016-10-04 17:43] LABS: GLUCOSE,URINE NEG (NEG); KETONE, URINE NEG (NEG); NITRITE,URINE NEG (NEG)
[2016-10-04 17:44] LABS: BLOOD, URINE MOD (NEG)
[2016-10-04 17:47] LABS: URINE COLOR YELLOW (YELLW/STRAW)
[2016-10-04 17:49] LABS: BACTERIA, URINE RARE /hpf; COMMENT (UR) CATH-CULTURE IND; CULTURE IF INDICATED CATH CULTURE IND; SQUAMOUS EPITHELIAL CELL URINE 0-5 /hpf (0-5)
[2016-10-04 20:00] VITALS: BP 124/82; PULSE 77; RESP 20; TEMP 96.9; O2SAT 97
[2016-10-04] MEDS: ALPRAZolam 1 MG TAB PO PRN (20:53)
[2016-10-04] MEDS: DAPTOmycin INJ 600 MG in SODIUM CHLORIDE 0.9% INJ 100 ML IV SCH ×2 (20:54→22:03)
[2016-10-05 07:15] VITALS: BP 118/91; PULSE 83; RESP 20; TEMP 95.6; O2SAT 99
[2016-10-05] MEDS: HYDROCORTISONE 1% CREAM 30 GM TOPICAL SCH (09:00)
[2016-10-05] MEDS: LACTIC ACID (AMMONIUM LACTATE) 12% LOTION 225 GM BTL TOPICAL SCH ×2 (09:00→19:42)
[2016-10-05] MEDS: PANTOPRAZOLE SOD 40 MG DELAYED RELEASE TAB PO SCH (09:54)
[2016-10-05] MEDS: FERROUS SULFATE 325 MG (65 MG ELEMENTAL IRON) TAB PO SCH ×2 (09:54→16:42)
[2016-10-05] MEDS: GABAPENTIN 400 MG CAP PO SCH ×3 (09:54→16:42)
[2016-10-05] MEDS: DOCUSATE SODIUM 50 MG/SENNA 8.6 MG TAB PO SCH (09:54)
[2016-10-05] MEDS: oxyCODONE/ACETAMINOPHEN 7.5 MG/325 MG TAB PO PRN ×3 (09:59→22:07)
[2016-10-05] MEDS: cefTRIAXone INJ 1,000 MG in SODIUM CHLORIDE 0.9% INJ 100 ML IV SCH (13:37)
--- NOTE | 2016-10-05 13:47 | RADHPO ---
EXAM DATE/TIME: 10/05/2016 13:25 [place] COMPARISON: CHEST SINGLE AP, June 08, 2016, 14:46. INDICATIONS : Post PICC line placement MEDICAL HISTORY : None. SURGICAL HISTORY : None. ENCOUNTER: Initial ACUITY: 1 day PAIN SCORE: 1/10 LOCATION: Bilateral chest FINDINGS: A right upper extremity PICC line has been inserted and appears to be in good position within the pro ximal superior vena cava. Lungs remain free of acute airspace disease or congestion. Heart and mediastinal structures are unremarkable. CONCLUSION: Right upper extremity PICC line in satisfactory position. No evidence of acute cardiopulmonary process. Mike Roa MD on October 05, 2016 at 13:36 Board Certified Radiologist. This report was verified electronically.
--- NOTE | 2016-10-05 14:15 | HHI.PR ---
Subjective Remarks Patient seen and examined today. Patient getting new IV at this time. Objective Vitals Vital Signs Date Time Temp Pulse Resp B/P Pulse Ox O2 Delivery O2 Flow Rate FiO2 10/05/16 07:15 95.6 83 20 118/91 99 10/04/16 20:00 96.9 77 20 124/82 97 I/O 10/04/16 10/04/16 10/04/16 10/05/16 10/05/16 10/05/16 07:00 15:00 23:00 07:00 15:00 23:00 Intake Total 240 ml 100 ml 720 ml 480 ml 100 ml Output Total 1100 ml 1475 ml 900 ml Balance -860 ml 100 ml -755 ml -420 ml 100 ml Intake Oral 240 ml 720 ml 480 ml IV Total 100 ml 100 ml Output Urine Total 900 ml 1475 ml 900 ml Stool Total 200 ml 0 ml # Bowel Movements 0 0 Objective Remarks GENERAL: Well-developed, well-nourished, in no acute distress. alert and orientated HEENT: Head is normocephalic without any lesions or masses noted. Facial features are symmetric. Eyes: Extraocular muscles are intact. Conjunctivae were clear. NECK: Supple without any masses. Trachea midline no deviation. No JVD, CARDIAC: Regular rhythm, regular rate. S1/S2 are heard. No murmurs gallops or rubs. LUNGS: Clear to auscultation bilaterally. No wheeze, rhonchi or rales. No use of accessory muscles on inspiration or expiration. ABDOMEN: Soft, nontender. Nondistended. Bowel sounds heard in all 4 quadrants. No organomegaly or masses. Negative rebound, negative guarding. Suprapubic catheter in place without any signs of infection. Colostomy noted EXTREMITIES: No edema, pulses are equal bilaterally. No cyanosis or clubbing NEUROLOGY: Mood and affect appear appropriate. Cranial nerves II through XII grossly intact. Procedures Debridement Urinary Catheter: No Date of Insertion: Sep 13, 2016 Vascular Central Line Catheter: No A/P Assessment and Plan Mr. Byrd is a 35-year-old male with PMH of Anxiety, Paraplegia, Neurogenic Bladder s/p Suprapubic Cath, Chronic UTI and Chronic Sacral Decubitus Ulcer who presented for evaluation of sacral wound. Stage IV Chronic Sacral, trochanter, scrotal Ulcer in a paraplegic patient, Present at time of admission. Wound care nurse re-consulted, appreciate recommendations, Plastic surgery did perform excisional debridement of chronic decubitus of left trochanter, sacrum, right ischium, bases scrotal wound. 09/07/16 wound care orders written by plastic surgery 09/28/16: Plastic surgery discontinued wound VAC with application of Betadine moistened gauze Infectious disease consulted because of wound cultures with Proteus mirabilis, MRSA. Urine culture with Proteus mirabilis and Escherichia coli. Daptomycin started by infectious disease. Recommending three-week duration Monitoring labs, CPK level twice weekly Pain control Percocet 5 every 6 hours as needed for pain 15 Percocet 7.5 every 6 hours as needed for pain 6-10 E Coli/Proteus complicated urinary tract infection: Suprapubic catheter to be changed monthly last changed 10/04/16 Patient completed antibiotic regimen Infectious disease recommending Rocephin for 3 weeks Bowel regimen with history of constipation. Monitor ostomy output. Whitney-Colace daily, Dulcolax as needed Neurogenic Bladder: Secondary to Paraplegia. Suprapubic catheter changed 09/13/16 Paraplegia: At baseline. Continue home medications. Trapeze setup in place Multi-Podus boots PT eval, recommends SNF, case management assisting. --Consulted OT who made recommendations for wheelchair. Recommendations given to case management to obtain wheelchair for patient DVT Prophylaxis: SCD/Teds/lovenox. Discharge Planning Discharge planning per case management, Sergei Larose Oct 05, 2016 14:15
[2016-10-05] MEDS ORDERED: PICC PRN After Blood Draw NS Lock Flush IVF (15:15)
[2016-10-05] MEDS ORDERED: PICC PRN NS Lock Flush IVF (15:15)
[2016-10-05] MEDS ORDERED: PICC PRN Heparin 100 units/ml Lock Flush IVF (15:15)
[2016-10-05] MEDS: ENOXAPARIN SODIUM 40 MG/0.4 ML SYRINGE SQ SCH (16:43)
[2016-10-05 17:39] LABS: AUTOMATED NEUTROPHIL # 4.4 TH/MM3 (1.8-7.7); BASOPHIL % 0.2 % (0.0-2.0); EOSINOPHIL # 0.2 TH/MM3 (0-0.4); EOSINOPHIL % 2.1 % (0.0-4.0); HEMATOCRIT 34.2 % (39.0-51.0); HEMO FLAGS DIFF FINAL; LYMPH % 40.5 % (9.0-44.0); LYMPHOCYTE # 3.4 TH/MM3 (1.0-4.8); MEAN CELL VOLUME 82.3 FL (80.0-100.0); MEAN CORPUSCULAR HEMOGLOBIN 27.5 PG (27.0-34.0); MEAN CORPUSCULAR HGB CONC 33.4 % (32.0-36.0); MONO % 5.9 % (0.0-8.0); NEUT % 51.3 % (16.0-70.0); PLATELET COUNT 510 TH/MM3 (150-450); RED BLOOD COUNT 4.16 MIL/MM3 (4.50-5.90); RED CELL DISTRIBUTION WIDTH 14.6 % (11.6-17.2); WHITE BLOOD COUNT 8.5 TH/MM3 (4.0-11.0)
[2016-10-05 17:47] LABS: POTASSIUM 3.5 MEQ/L (3.5-5.1)
[2016-10-05 17:51] LABS: BICARBONATE 27.7 MEQ/L (21.0-32.0)
[2016-10-05] MEDS: ALPRAZolam 1 MG TAB PO PRN (19:41)
[2016-10-05 20:00] VITALS: BP 133/98; PULSE 90; RESP 18; TEMP 95.6; O2SAT 98
[2016-10-06] MEDS: oxyCODONE/ACETAMINOPHEN 7.5 MG/325 MG TAB PO PRN ×4 (05:06→23:50)
[2016-10-06 08:00] VITALS: BP 125/80; PULSE 80; RESP 20; TEMP 97.8; O2SAT 97
[2016-10-06] MEDS: DOCUSATE SODIUM 50 MG/SENNA 8.6 MG TAB PO SCH (08:24)
[2016-10-06] MEDS: GABAPENTIN 400 MG CAP PO SCH ×3 (08:24→17:32)
[2016-10-06] MEDS: FERROUS SULFATE 325 MG (65 MG ELEMENTAL IRON) TAB PO SCH ×2 (08:24→17:32)
[2016-10-06] MEDS: PANTOPRAZOLE SOD 40 MG DELAYED RELEASE TAB PO SCH (08:24)
[2016-10-06] MEDS: LACTIC ACID (AMMONIUM LACTATE) 12% LOTION 225 GM BTL TOPICAL SCH ×2 (08:25→20:04)
[2016-10-06] MEDS: HYDROCORTISONE 1% CREAM 30 GM TOPICAL SCH (08:25)
[2016-10-06] MEDS ORDERED: PICC Daily NS Lock Flush IVF SCH (09:00)
[2016-10-06] MEDS ORDERED: PICC Daily Heparin 100 unit/mL Lock Flush IVF SCH (09:00)
[2016-10-06] MEDS: cefTRIAXone INJ 1,000 MG in SODIUM CHLORIDE 0.9% INJ 100 ML IV SCH (13:19)
--- NOTE | 2016-10-06 13:58 | HHI.PR ---
Subjective Remarks Patient seen and examined today. Patient denies any new complaints. No change clinical status. Objective Vitals Vital Signs Date Time Temp Pulse Resp B/P Pulse Ox O2 Delivery O2 Flow Rate FiO2 10/06/16 12:16 18 10/06/16 08:00 97.8 80 20 125/80 97 10/05/16 20:00 95.6 90 18 133/98 98 I/O 10/05/16 10/05/16 10/05/16 10/06/16 10/06/16 10/06/16 07:00 15:00 23:00 07:00 15:00 23:00 Intake Total 480 ml 900 ml 480 ml 480 ml Output Total 900 ml 350 ml 1400 ml 850 ml Balance -420 ml 550 ml -920 ml -370 ml Intake Oral 480 ml 800 ml 480 ml 480 ml IV Total 100 ml Output Urine Total 900 ml 350 ml 1400 ml 850 ml # Bowel Movements 0 0 Result Diagram: 10/05/16 17310/05/16 173 Objective Remarks GENERAL: Well-developed, well-nourished, in no acute distress. alert and orientated HEENT: Head is normocephalic without any lesions or masses noted. Facial features are symmetric. Eyes: Extraocular muscles are intact. Conjunctivae were clear. NECK: Supple without any masses. Trachea midline no deviation. No JVD, CARDIAC: Regular rhythm, regular rate. S1/S2 are heard. No murmurs gallops or rubs. LUNGS: Clear to auscultation bilaterally. No wheeze, rhonchi or rales. No use of accessory muscles on inspiration or expiration. ABDOMEN: Soft, nontender. Nondistended. Bowel sounds heard in all 4 quadrants. No organomegaly or masses. Negative rebound, negative guarding. Suprapubic catheter in place without any signs of infection. Colostomy noted EXTREMITIES: No edema, pulses are equal bilaterally. No cyanosis or clubbing NEUROLOGY: Mood and affect appear appropriate. Cranial nerves II through XII grossly intact. Procedures Debridement Urinary Catheter: Yes Assessment to: Continue Peterson insert reason: Stage III/IV Press Ulcer Date of Insertion: Sep 13, 2016 Vascular Central Line Catheter: Yes Assessment to: Continue Date of Insertion: Oct 05, 2016 Line: PICC A/P Assessment and Plan Mr. Byrd is a 35-year-old male with PMH of Anxiety, Paraplegia, Neurogenic Bladder s/p Suprapubic Cath, Chronic UTI and Chronic Sacral Decubitus Ulcer who presented for evaluation of sacral wound. Stage IV Chronic Sacral, trochanter, scrotal Ulcer in a paraplegic patient, Present at time of admission. Wound care nurse re-consulted, appreciate recommendations, Plastic surgery did perform excisional debridement of chronic decubitus of left trochanter, sacrum, right ischium, bases scrotal wound. 09/07/16 wound care orders written by plastic surgery 09/28/16: Plastic surgery discontinued wound VAC with application of Betadine moistened gauze Infectious disease consulted because of wound cultures with Proteus mirabilis, MRSA. Urine culture with Proteus mirabilis and Escherichia coli. Daptomycin started by infectious disease. Recommending three-week duration Monitoring labs, CPK level twice weekly Pain control Percocet 5 every 6 hours as needed for pain 15 Percocet 7.5 every 6 hours as needed for pain 6-10 E Coli/Proteus complicated urinary tract infection: Suprapubic catheter to be changed monthly last changed 10/04/16 Patient completed antibiotic regimen Infectious disease recommending Rocephin for 3 weeks Bowel regimen with history of constipation. Monitor ostomy output. Whitney-Colace daily, Dulcolax as needed Neurogenic Bladder: Secondary to Paraplegia. Suprapubic catheter changed 09/13/16 Paraplegia: At baseline. Continue home medications. Trapeze setup in place Multi-Podus boots PT eval, recommends SNF, case management assisting. --Consulted OT who made recommendations for wheelchair. Recommendations given to case management to obtain wheelchair for patient DVT Prophylaxis: SCD/Teds/lovenox. Discharge Planning Discharge planning per case kari, Sergei Larose Oct 06, 2016 13:58
[2016-10-06] MEDS: ENOXAPARIN SODIUM 40 MG/0.4 ML SYRINGE SQ SCH (17:32)
[2016-10-06 20:00] VITALS: BP 102/65; PULSE 81; RESP 18; TEMP 97.5; O2SAT 97
[2016-10-06] MEDS: DAPTOmycin INJ 600 MG in SODIUM CHLORIDE 0.9% INJ 100 ML IV SCH (20:03)
[2016-10-06] MEDS: ALPRAZolam 1 MG TAB PO PRN (20:09)
[2016-10-07 08:00] VITALS: BP 133/79; PULSE 87; RESP 19; TEMP 97.6; O2SAT 96
[2016-10-07] MEDS: FERROUS SULFATE 325 MG (65 MG ELEMENTAL IRON) TAB PO SCH ×2 (08:18→17:16)
[2016-10-07] MEDS: oxyCODONE/ACETAMINOPHEN 7.5 MG/325 MG TAB PO PRN ×3 (08:18→20:19)
[2016-10-07] MEDS: DOCUSATE SODIUM 50 MG/SENNA 8.6 MG TAB PO SCH (08:19)
[2016-10-07] MEDS: ENOXAPARIN SODIUM 40 MG/0.4 ML SYRINGE SQ SCH (08:19)
[2016-10-07] MEDS: PANTOPRAZOLE SOD 40 MG DELAYED RELEASE TAB PO SCH (08:19)
[2016-10-07] MEDS: GABAPENTIN 400 MG CAP PO SCH ×3 (08:19→17:16)
[2016-10-07] MEDS: HYDROCORTISONE 1% CREAM 30 GM TOPICAL SCH (08:23)
[2016-10-07] MEDS: LACTIC ACID (AMMONIUM LACTATE) 12% LOTION 225 GM BTL TOPICAL SCH ×2 (08:23→20:09)
[2016-10-07] MEDS: cefTRIAXone INJ 1,000 MG in SODIUM CHLORIDE 0.9% INJ 100 ML IV SCH (13:38)
--- NOTE | 2016-10-07 13:42 | HHI.PR ---
Subjective Remarks Patient seen and examined today. Patient denies any new complaints. No change clinical status. Objective Vitals Vital Signs Date Time Temp Pulse Resp B/P Pulse Ox O2 Delivery O2 Flow Rate FiO2 10/07/16 09:21 14 10/07/16 08:00 97.6 87 19 133/79 96 10/06/16 20:00 97.5 81 18 102/65 97 I/O 10/06/16 10/06/16 10/06/16 10/07/16 10/07/16 10/07/16 07:00 15:00 23:00 07:00 15:00 23:00 Intake Total 480 ml 1200 ml 640 ml Output Total 850 ml 2575 ml 550 ml 1000 ml Balance -370 ml -1375 ml 90 ml -1000 ml Intake Oral 480 ml 1100 ml 640 ml IV Total 100 ml Output Urine Total 850 ml 2575 ml 550 ml 1000 ml # Bowel Movements 0 2 0 Result Diagram: 10/05/16 17310/05/16 173 Objective Remarks GENERAL: Well-developed, well-nourished, in no acute distress. alert and orientated HEENT: Head is normocephalic without any lesions or masses noted. Facial features are symmetric. Eyes: Extraocular muscles are intact. Conjunctivae were clear. NECK: Supple without any masses. Trachea midline no deviation. No JVD, CARDIAC: Regular rhythm, regular rate. S1/S2 are heard. No murmurs gallops or rubs. LUNGS: Clear to auscultation bilaterally. No wheeze, rhonchi or rales. No use of accessory muscles on inspiration or expiration. ABDOMEN: Soft, nontender. Nondistended. Bowel sounds heard in all 4 quadrants. No organomegaly or masses. Negative rebound, negative guarding. Suprapubic catheter in place without any signs of infection. Colostomy noted EXTREMITIES: No edema, pulses are equal bilaterally. No cyanosis or clubbing NEUROLOGY: Mood and affect appear appropriate. Cranial nerves II through XII grossly intact. Procedures Debridement Urinary Catheter: Yes Assessment to: Continue Date of Insertion: Sep 13, 2016 Vascular Central Line Catheter: Yes Assessment to: Continue Date of Insertion: Oct 05, 2016 Line: PICC A/P Assessment and Plan Mr. Byrd is a 35-year-old male with PMH of Anxiety, Paraplegia, Neurogenic Bladder s/p Suprapubic Cath, Chronic UTI and Chronic Sacral Decubitus Ulcer who presented for evaluation of sacral wound. Stage IV Chronic Sacral, trochanter, scrotal Ulcer in a paraplegic patient, Present at time of admission. Wound care nurse re-consulted, appreciate recommendations, Plastic surgery did perform excisional debridement of chronic decubitus of left trochanter, sacrum, right ischium, bases scrotal wound. 09/07/16 wound care orders written by plastic surgery 09/28/16: Plastic surgery discontinued wound VAC with application of Betadine moistened gauze Infectious disease consulted because of wound cultures with Proteus mirabilis, MRSA. Urine culture with Proteus mirabilis and Escherichia coli. Daptomycin started by infectious disease. Recommending three-week duration Monitoring labs, CPK level twice weekly Pain control Percocet 5 every 6 hours as needed for pain 15 Percocet 7.5 every 6 hours as needed for pain 6-10 E Coli/Proteus complicated urinary tract infection: Suprapubic catheter to be changed monthly last changed 10/04/16 Patient completed antibiotic regimen Infectious disease recommending Rocephin for 3 weeks Bowel regimen with history of constipation. Monitor ostomy output. Whitney-Colace daily, Dulcolax as needed Neurogenic Bladder: Secondary to Paraplegia. Suprapubic catheter changed 09/13/16 Paraplegia: At baseline. Continue home medications. Trapeze setup in place Multi-Podus boots PT eval, recommends SNF, case management assisting. --Consulted OT who made recommendations for wheelchair. Recommendations given to case management to obtain wheelchair for patient DVT Prophylaxis: SCD/Teds/lovenox. Discharge Planning Discharge planning per case kari, Sergei Larose Oct 07, 2016 13:42
[2016-10-07 20:00] VITALS: BP 135/74; PULSE 76; RESP 20; TEMP 96.1; O2SAT 96
[2016-10-07] MEDS: DAPTOmycin INJ 600 MG in SODIUM CHLORIDE 0.9% INJ 100 ML IV SCH (20:09)
[2016-10-07] MEDS: ALPRAZolam 1 MG TAB PO PRN (20:19)
[2016-10-08] MEDS: oxyCODONE/ACETAMINOPHEN 7.5 MG/325 MG TAB PO PRN ×3 (04:01→20:34)
[2016-10-08 08:00] VITALS: BP 125/75; PULSE 72; RESP 18; TEMP 97.3; O2SAT 98
[2016-10-08] MEDS: FERROUS SULFATE 325 MG (65 MG ELEMENTAL IRON) TAB PO SCH ×2 (09:01→16:53)
[2016-10-08] MEDS: PANTOPRAZOLE SOD 40 MG DELAYED RELEASE TAB PO SCH (09:01)
[2016-10-08] MEDS: DOCUSATE SODIUM 50 MG/SENNA 8.6 MG TAB PO SCH (09:02)
[2016-10-08] MEDS: GABAPENTIN 400 MG CAP PO SCH ×3 (09:02→16:53)
[2016-10-08] MEDS: HYDROCORTISONE 1% CREAM 30 GM TOPICAL SCH (09:04)
[2016-10-08] MEDS: LACTIC ACID (AMMONIUM LACTATE) 12% LOTION 225 GM BTL TOPICAL SCH ×2 (09:05→20:35)
--- NOTE | 2016-10-08 11:16 | HHI.PR ---
Subjective Remarks Patient seen and examined today. Patient resting carefully in bed. No change in clinical status. Objective Vitals Vital Signs Date Time Temp Pulse Resp B/P Pulse Ox O2 Delivery O2 Flow Rate FiO2 10/08/16 08:00 97.3 72 18 125/75 98 10/08/16 05:01 16 10/07/16 20:00 96.1 76 20 135/74 96 I/O 10/07/16 10/07/16 10/07/16 10/08/16 10/08/16 10/08/16 07:00 15:00 23:00 07:00 15:00 23:00 Intake Total 640 ml 360 ml 480 ml 480 ml Output Total 550 ml 1000 ml 400 ml 550 ml Balance 90 ml -640 ml 80 ml -70 ml Intake Oral 640 ml 360 ml 480 ml 480 ml Output Urine Total 550 ml 1000 ml 400 ml 550 ml Stool Total 0 ml 0 ml # Bowel Movements 0 0 Result Diagram: 10/05/16 17310/05/16 173 Objective Remarks GENERAL: Well-developed, well-nourished, in no acute distress. alert and orientated HEENT: Head is normocephalic without any lesions or masses noted. Facial features are symmetric. Eyes: Extraocular muscles are intact. Conjunctivae were clear. NECK: Supple without any masses. Trachea midline no deviation. No JVD, CARDIAC: Regular rhythm, regular rate. S1/S2 are heard. No murmurs gallops or rubs. LUNGS: Clear to auscultation bilaterally. No wheeze, rhonchi or rales. No use of accessory muscles on inspiration or expiration. ABDOMEN: Soft, nontender. Nondistended. Bowel sounds heard in all 4 quadrants. No organomegaly or masses. Negative rebound, negative guarding. Suprapubic catheter in place without any signs of infection. Colostomy noted EXTREMITIES: No edema, pulses are equal bilaterally. No cyanosis or clubbing NEUROLOGY: Mood and affect appear appropriate. Cranial nerves II through XII grossly intact. Procedures Debridement Date of Insertion: Sep 13, 2016 Date of Insertion: Oct 05, 2016 Line: PICC A/P Assessment and Plan Mr. Byrd is a 35-year-old male with PMH of Anxiety, Paraplegia, Neurogenic Bladder s/p Suprapubic Cath, Chronic UTI and Chronic Sacral Decubitus Ulcer who presented for evaluation of sacral wound. Stage IV Chronic Sacral, trochanter, scrotal Ulcer in a paraplegic patient, Present at time of admission. Wound care nurse re-consulted, appreciate recommendations, Plastic surgery did perform excisional debridement of chronic decubitus of left trochanter, sacrum, right ischium, bases scrotal wound. 09/07/16 wound care orders written by plastic surgery 09/28/16: Plastic surgery discontinued wound VAC with application of Betadine moistened gauze Infectious disease consulted because of wound cultures with Proteus mirabilis, MRSA. Urine culture with Proteus mirabilis and Escherichia coli. Daptomycin started by infectious disease. Recommending three-week duration Monitoring labs, CPK level twice weekly Pain control Percocet 5 every 6 hours as needed for pain 15 Percocet 7.5 every 6 hours as needed for pain 6-10 E Coli/Proteus complicated urinary tract infection: Suprapubic catheter to be changed monthly last changed 10/04/16 Patient completed antibiotic regimen Infectious disease recommending Rocephin for 3 weeks Repeat culture now with Kat albicans, enterococcus faecalis We'll give fluconazole for 3 days Bowel regimen with history of constipation. Monitor ostomy output. Whitney-Colace daily, Dulcolax as needed Neurogenic Bladder: Secondary to Paraplegia. Suprapubic catheter changed 09/13/16 Paraplegia: At baseline. Continue home medications. Trapeze setup in place Multi-Podus boots PT eval, recommends SNF, case management assisting. --Consulted OT who made recommendations for wheelchair. Recommendations given to case management to obtain wheelchair for patient DVT Prophylaxis: SCD/Teds/lovenox. Discharge Planning Discharge planning per case management, Sergei Larose Oct 08, 2016 11:16
[2016-10-08] MEDS: cefTRIAXone INJ 1,000 MG in SODIUM CHLORIDE 0.9% INJ 100 ML IV SCH (13:56)
[2016-10-08] MEDS: FLUCONAZOLE 100 MG TAB PO SCH (13:56)
[2016-10-08] MEDS: ENOXAPARIN SODIUM 40 MG/0.4 ML SYRINGE SQ SCH (16:52)
[2016-10-08 19:15] VITALS: BP 122/75; PULSE 74; RESP 18; TEMP 96; O2SAT 98
[2016-10-08] MEDS: DAPTOmycin INJ 600 MG in SODIUM CHLORIDE 0.9% INJ 100 ML IV SCH (20:26)
[2016-10-08] MEDS: ALPRAZolam 1 MG TAB PO PRN (20:27)
[2016-10-09] MEDS: oxyCODONE/ACETAMINOPHEN 7.5 MG/325 MG TAB PO PRN (02:39)
[2016-10-09 06:25] LABS: AUTOMATED NEUTROPHIL # 3.2 TH/MM3 (1.8-7.7); BASOPHIL % 0.3 % (0.0-2.0); EOSINOPHIL # 0.3 TH/MM3 (0-0.4); HEMATOCRIT 34.9 % (39.0-51.0); HEMO FLAGS DIFF FINAL; LYMPH % 51.8 % (9.0-44.0); LYMPHOCYTE # 4.3 TH/MM3 (1.0-4.8); MEAN CELL VOLUME 82.5 FL (80.0-100.0); MEAN CORPUSCULAR HEMOGLOBIN 27.9 PG (27.0-34.0); MEAN CORPUSCULAR HGB CONC 33.8 % (32.0-36.0); MONO % 6.7 % (0.0-8.0); NEUT % 38.2 % (16.0-70.0); PLATELET COUNT 462 TH/MM3 (150-450); RED BLOOD COUNT 4.23 MIL/MM3 (4.50-5.90); RED CELL DISTRIBUTION WIDTH 14.8 % (11.6-17.2); WHITE BLOOD COUNT 8.4 TH/MM3 (4.0-11.0)
[2016-10-09 06:38] LABS: POTASSIUM 3.8 MEQ/L (3.5-5.1)
[2016-10-09 06:41] LABS: BICARBONATE 28.6 MEQ/L (21.0-32.0)
[2016-10-09 08:00] VITALS: BP 108/73; PULSE 78; RESP 18; TEMP 96; O2SAT 95
[2016-10-09] MEDS: DOCUSATE SODIUM 50 MG/SENNA 8.6 MG TAB PO SCH (08:47)
[2016-10-09] MEDS: FLUCONAZOLE 100 MG TAB PO SCH (08:47)
[2016-10-09] MEDS: PANTOPRAZOLE SOD 40 MG DELAYED RELEASE TAB PO SCH (08:47)
[2016-10-09] MEDS: GABAPENTIN 400 MG CAP PO SCH ×3 (08:47→16:58)
[2016-10-09] MEDS: FERROUS SULFATE 325 MG (65 MG ELEMENTAL IRON) TAB PO SCH ×2 (08:48→16:59)
[2016-10-09] MEDS: HYDROCORTISONE 1% CREAM 30 GM TOPICAL SCH (08:49)
[2016-10-09] MEDS: LACTIC ACID (AMMONIUM LACTATE) 12% LOTION 225 GM BTL TOPICAL SCH ×2 (09:00→21:00)
--- NOTE | 2016-10-09 11:35 | HHI.PR ---
Subjective Remarks Seen and examined today. Patient states that the Percocet is not working for his pain anymore is requesting to be changed back to the Dilaudid Objective Vitals Vital Signs Date Time Temp Pulse Resp B/P Pulse Ox O2 Delivery O2 Flow Rate FiO2 10/09/16 03:39 16 10/08/16 19:15 96.0 74 18 122/75 98 I/O 10/08/16 10/08/16 10/08/16 10/09/16 10/09/16 10/09/16 07:00 15:00 23:00 07:00 15:00 23:00 Intake Total 480 ml 360 ml 720 ml 600 ml Output Total 550 ml 650 ml 450 ml 1000 ml Balance -70 ml -290 ml 270 ml -400 ml Intake Oral 480 ml 360 ml 720 ml 480 ml IV Total 120 ml Output Urine Total 550 ml 650 ml 350 ml 1000 ml Stool Total 0 ml 100 ml 0 ml # Bowel Movements 0 0 Result Diagram: 10/09/1660410/09/16604 Objective Remarks GENERAL: Well-developed, well-nourished, in no acute distress. alert and orientated HEENT: Head is normocephalic without any lesions or masses noted. Facial features are symmetric. Eyes: Extraocular muscles are intact. Conjunctivae were clear. NECK: Supple without any masses. Trachea midline no deviation. No JVD, CARDIAC: Regular rhythm, regular rate. S1/S2 are heard. No murmurs gallops or rubs. LUNGS: Clear to auscultation bilaterally. No wheeze, rhonchi or rales. No use of accessory muscles on inspiration or expiration. ABDOMEN: Soft, nontender. Nondistended. Bowel sounds heard in all 4 quadrants. No organomegaly or masses. Negative rebound, negative guarding. Suprapubic catheter in place without any signs of infection. Colostomy noted EXTREMITIES: No edema, pulses are equal bilaterally. No cyanosis or clubbing NEUROLOGY: Mood and affect appear appropriate. Cranial nerves II through XII grossly intact. Procedures Debridement Urinary Catheter: Yes Assessment to: Continue Peterson insert reason: Stage III/IV Press Ulcer Date of Insertion: Sep 13, 2016 Vascular Central Line Catheter: No Date of Insertion: Oct 05, 2016 Line: PICC A/P Assessment and Plan Mr. Byrd is a 35-year-old male with PMH of Anxiety, Paraplegia, Neurogenic Bladder s/p Suprapubic Cath, Chronic UTI and Chronic Sacral Decubitus Ulcer who presented for evaluation of sacral wound. Stage IV Chronic Sacral, trochanter, scrotal Ulcer in a paraplegic patient, Present at time of admission. Wound care nurse re-consulted, appreciate recommendations, Plastic surgery did perform excisional debridement of chronic decubitus of left trochanter, sacrum, right ischium, bases scrotal wound. 09/07/16 wound care orders written by plastic surgery 09/28/16: Plastic surgery discontinued wound VAC with application of Betadine moistened gauze Infectious disease consulted because of wound cultures with Proteus mirabilis, MRSA. Urine culture with Proteus mirabilis and Escherichia coli. Daptomycin started by infectious disease. Recommending three-week duration Monitoring labs, CPK level twice weekly Pain control Discontinue Percocet Start Dilaudid 2 mg by mouth every 4 hours as needed for pain E Coli/Proteus complicated urinary tract infection: Suprapubic catheter to be changed monthly last changed 10/04/16 Patient completed antibiotic regimen Infectious disease recommending Rocephin for 3 weeks Repeat culture now with Kat albicans, enterococcus faecalis Fluconazole for 3 days Bowel regimen with history of constipation. Monitor ostomy output. Whitney-Colace daily, Dulcolax as needed Neurogenic Bladder: Secondary to Paraplegia. Suprapubic catheter changed 09/13/16 Paraplegia: At baseline. Continue home medications. Trapeze setup in place Multi-Podus boots PT eval, recommends SNF, case management assisting. --Consulted OT who made recommendations for wheelchair. Recommendations given to case management to obtain wheelchair for patient DVT Prophylaxis: SCD/Teds/lovenox. Discharge Planning Discharge planning per case kari, Sergei Larose Oct 09, 2016 11:35
[2016-10-09] MEDS: cefTRIAXone INJ 1,000 MG in SODIUM CHLORIDE 0.9% INJ 100 ML IV SCH (11:38)
[2016-10-09] MEDS ORDERED: HYDROmorphone HCL 2 MG TAB PO PRN (11:45)
[2016-10-09] MEDS: ENOXAPARIN SODIUM 40 MG/0.4 ML SYRINGE SQ SCH (14:06)
[2016-10-09] MEDS: HYDROmorphone HCL 4 MG TAB PO PRN ×2 (17:00→22:53)
[2016-10-09 20:00] VITALS: BP 118/77; PULSE 73; RESP 18; TEMP 95.8; O2SAT 98
[2016-10-09] MEDS: DAPTOmycin INJ 600 MG in SODIUM CHLORIDE 0.9% INJ 100 ML IV SCH (20:51)
[2016-10-09] MEDS: ALPRAZolam 1 MG TAB PO PRN (20:56)
[2016-10-10] MEDS: ALPRAZolam 1 MG TAB PO PRN ×2 (05:53→20:47)
[2016-10-10] MEDS: HYDROmorphone HCL 4 MG TAB PO PRN ×4 (05:54→23:42)
[2016-10-10] MEDS: DOCUSATE SODIUM 50 MG/SENNA 8.6 MG TAB PO SCH (07:39)
[2016-10-10] MEDS: GABAPENTIN 400 MG CAP PO SCH ×3 (07:39→16:22)
[2016-10-10] MEDS: FLUCONAZOLE 100 MG TAB PO SCH (07:39)
[2016-10-10] MEDS: PANTOPRAZOLE SOD 40 MG DELAYED RELEASE TAB PO SCH (07:40)
[2016-10-10] MEDS: FERROUS SULFATE 325 MG (65 MG ELEMENTAL IRON) TAB PO SCH ×2 (07:40→16:21)
[2016-10-10] MEDS: ENOXAPARIN SODIUM 40 MG/0.4 ML SYRINGE SQ SCH (07:41)
[2016-10-10] MEDS: LACTIC ACID (AMMONIUM LACTATE) 12% LOTION 225 GM BTL TOPICAL SCH ×2 (07:42→20:48)
[2016-10-10] MEDS: HYDROCORTISONE 1% CREAM 30 GM TOPICAL SCH (07:42)
[2016-10-10 08:00] VITALS: BP 110/80; PULSE 88; RESP 18; TEMP 97.4; O2SAT 97
[2016-10-10] MEDS: cefTRIAXone INJ 1,000 MG in SODIUM CHLORIDE 0.9% INJ 100 ML IV SCH (12:15)
--- NOTE | 2016-10-10 13:08 | HHI.PR ---
Subjective Remarks Follow-up for infected decubitus ulcers, UTI. Patient inquires about getting a wheelchair. Objective Vitals Vital Signs Date Time Temp Pulse Resp B/P Pulse Ox O2 Delivery O2 Flow Rate FiO2 10/10/16 08:00 97.4 88 18 110/80 97 10/10/16 07:44 14 10/09/16 20:00 95.8 73 18 118/77 98 I/O 10/09/16 10/09/16 10/09/16 10/10/16 10/10/16 10/10/16 07:00 15:00 23:00 07:00 15:00 23:00 Intake Total 600 ml 720 ml 920 ml Output Total 1000 ml 1801 ml 700 ml Balance -400 ml -1081 ml 220 ml Intake Oral 480 ml 720 ml 920 ml IV Total 120 ml Output Urine Total 1000 ml 1800 ml 700 ml Stool Total 0 ml 1 ml # Bowel Movements 0 1 Result Diagram: 10/09/16 0605 10/09/16 06 Objective Remarks GENERAL: Well-nourished well developed patient in no apparent distress. CARDIOVASCULAR: Regular rate and rhythm. RESPIRATORY: No accessory muscle use. Clear to auscultation. Breath sounds equal bilaterally. GASTROINTESTINAL: Abdomen distended with colostomy bag, non-tender. NEUROLOGICAL: Awake and alert. Normal speech. PSYCHIATRIC: Appropriate mood and affect; insight and judgment normal. Procedures Debridement Urinary Catheter: Yes Assessment to: Continue Peterson insert reason: Stage III/IV Press Ulcer Date of Insertion: Oct 04, 2016 Vascular Central Line Catheter: Yes Assessment to: Continue Date of Insertion: Oct 05, 2016 Line: PICC A/P Problem List: (1) Sacral decubitus ulcer ICD Code: L89.159 Status: Chronic (2) UTI (urinary tract infection) ICD Code: N39.0 Status: Acute (3) Constipation ICD Code: K59.00 Status: Resolved (4) Paraplegia ICD Code: G82.20 Status: Chronic (5) Neurogenic bladder ICD Code: N31.9 Status: Chronic Assessment and Plan Mr. Byrd is a 35-year-old male with PMH of Anxiety, Paraplegia, Neurogenic Bladder s/p Suprapubic Cath, Chronic UTI and Chronic Sacral Decubitus Ulcer who presented for evaluation of sacral wound. 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 Present at time of admission. Wound care nurse re-consulted, appreciate recommendations Wound VAC in place, wound care nurse to manage Plastic surgery did perform excisional debridement of chronic decubitus of left trochanter, sacrum, right ischium, scrotal wound. 09/28: Wound cultures from the sacrum and left trochanter. help desk support specialist spoke with Dr. Gruber who advised to discontinue the wound VAC for now. He advises applying Betadine moistened gauze loosely into the wound beds of sacrum and L trochanter and cover with dry dressing, to be changed daily. Infectious disease consulted because of wound cultures with Proteus mirabilis, MRSA. Urine culture with Proteus mirabilis and Escherichia coli. Continue Daptomycin. Recommending three-week duration. WBC remains normal. Monitor CPK level twice weekly 10/10: I again spoke with utilities manager. Patient to receive Veraflow wound vac. Pain control Dilaudid 2 mg by mouth every 4 hours as needed for pain Complicated urinary tract infection: Escherichia coli UTI on 06/08 and 07/06. History of proteus and E.coli UTI on last admission. Suprapubic catheter to be changed monthly last changed 10/04/16 Patient completed antibiotic regimen UA 09/26 with infection. Final urine culture with Proteus and Escherichia coli present. Patient has a history of both. Sensitivities and m.i.c. reviewed. ID evaluated patient on 09/29; agrees with continuing Ceftriaxone 1 g q24 hours. 10/02: I confirmed with Dr. Resendiz that he would like patient to remain on Ceftriaxone also for 3 weeks duration. Repeat culture now with Kat albicans, enterococcus faecalis Continue Fluconazole for 3 days Bowel regimen with history of constipation. Monitor ostomy output. Negative C.diff on 09/24/16. Monitor. Whitney-Colace daily, Dulcolax as needed Neurogenic Bladder: Secondary to Paraplegia. Suprapubic catheter changed 10/04/16 Paraplegia: At baseline. Continue home medications. Trapeze setup in place Multi-Podus boots Continue PT and OT. Recommendations given to case management to obtain wheelchair for patient DVT Prophylaxis: SCD/Teds, Lovenox. Discharge Planning PT recommends rehabilitation, wheelchair with removal arms and legs. No OT recommended. CM following. Problem Qualifiers (1) Sacral decubitus ulcer: Qualified Code: L89.154 - Decubitus ulcer of sacral region, stage 4 (2) UTI (urinary tract infection): Lani Jensen Oct 10, 2016 13:08
[2016-10-10 20:00] VITALS: BP 136/72; PULSE 91; RESP 20; TEMP 96.7; O2SAT 97
[2016-10-10] MEDS: DAPTOmycin INJ 600 MG in SODIUM CHLORIDE 0.9% INJ 100 ML IV SCH (20:47)
[2016-10-11 08:00] VITALS: BP 123/73; PULSE 75; RESP 19; TEMP 98; O2SAT 97
[2016-10-11] MEDS: HYDROmorphone HCL 4 MG TAB PO PRN ×3 (08:32→21:26)
[2016-10-11] MEDS: FLUCONAZOLE 100 MG TAB PO SCH (08:33)
[2016-10-11] MEDS: GABAPENTIN 400 MG CAP PO SCH ×3 (08:33→18:09)
[2016-10-11] MEDS: DOCUSATE SODIUM 50 MG/SENNA 8.6 MG TAB PO SCH (08:33)
[2016-10-11] MEDS: PANTOPRAZOLE SOD 40 MG DELAYED RELEASE TAB PO SCH (08:33)
[2016-10-11] MEDS: FERROUS SULFATE 325 MG (65 MG ELEMENTAL IRON) TAB PO SCH ×2 (08:33→18:09)
[2016-10-11] MEDS: LACTIC ACID (AMMONIUM LACTATE) 12% LOTION 225 GM BTL TOPICAL SCH ×2 (08:35→20:07)
[2016-10-11] MEDS: HYDROCORTISONE 1% CREAM 30 GM TOPICAL SCH (08:35)
--- NOTE | 2016-10-11 12:39 | HHI.PR ---
Subjective Remarks Follow-up on patient with infected decubitus ulcer and UTI. Patient seen and examined. Patient has no new complaints today. No change in clinical status. Objective Vitals Vital Signs Date Time Temp Pulse Resp B/P Pulse Ox O2 Delivery O2 Flow Rate FiO2 10/11/16 08:00 98.0 75 19 123/73 97 10/10/16 20:00 96.7 91 20 136/72 97 10/10/16 19:03 14 I/O 10/10/16 10/10/16 10/10/16 10/11/16 10/11/16 10/11/16 07:00 15:00 23:00 07:00 15:00 23:00 Intake Total 920 ml 1280 ml 800 ml Output Total 700 ml 2301 ml 950 ml Balance 220 ml -1021 ml -150 ml Intake Oral 920 ml 1280 ml 800 ml Output Urine Total 700 ml 2300 ml 950 ml Stool Total 1 ml # Bowel Movements 1 0 Result Diagram: 10/09/1660410/09/16604 Objective Remarks GENERAL: Well-nourished well developed patient in no apparent distress. CARDIOVASCULAR: Regular rate and rhythm. RESPIRATORY: No accessory muscle use. Clear to auscultation. Breath sounds equal bilaterally. GASTROINTESTINAL: Abdomen distended with colostomy bag, non-tender. NEUROLOGICAL: Awake and alert. Normal speech. PSYCHIATRIC: Appropriate mood and affect; insight and judgment normal. Procedures Debridement Urinary Catheter: Yes Assessment to: Continue Peterson insert reason: Stage III/IV Press Ulcer Date of Insertion: October 04, 2016 Vascular Central Line Catheter: Yes Assessment to: Continue Date of Insertion: Oct 05, 2016 Line: PICC Procedures Debridement Medications and IVs Current Medications Medications (Trade) Dose Ordered Sig/Haja Route Start Time Stop Time Status Last Admin (Dulcolax Supp) 10 mg DAILY PRN [place] 06/08/16 20:00 (Tylenol) 650 mg Q6H PRN PO 06/08/16 20:00 09/24/16 19:51 (Xanax) 1 mg Q6H PRN PO 06/08/16 20:00 10/10/16 20:47 (Ferrous Sulfate) 325 mg BIDPC PO 06/09/16 09:00 10/11/16 08:33 (Neurontin) 800 mg TID PO 06/09/16 09:00 10/11/16 08:33 (ZyPREXA) 15 mg HS PO 06/08/16 21:00 10/10/16 20:47 (Protonix) 40 mg DAILY PO 06/09/16 09:00 10/11/16 08:33 (Benadryl) 25 mg Q4H PRN PO 06/23/16 16:00 09/13/16 14:20 (Whitney-Colace) 1 tab DAILY PO 07/11/16 09:00 10/11/16 08:33 (Lac-Hydrin 12% Lotion) 1 applic BID TOPICAL 07/24/16 11:00 10/11/16 08:35 (Zofran Odt) 4 mg Q6H PRN PO 08/11/16 07:15 (Hydrocortisone 1% Cream) 1 applic DAILY TOPICAL 08/18/16 14:00 10/11/16 08:35 (Silver Nitrate Applicators) 1 appl DAILY PRN TOPICAL 08/22/16 10:45 Enoxaparin Sodium 40 mg 40 mg Q24H SQ 08/28/16 16:00 10/10/16 07:41 Ceftriaxone Sodium 1000 mg/ Sodium Chloride 100 ml @ 200 mls/hr Q24H IV 09/28/16 13:00 10/18/16 13:00 10/10/16 12:15 (Cubicin Inj/NS Inj) 100 ml @ 200 mls/hr Q24H IV 09/29/16 20:00 10/10/16 20:47 (NS Flush) See Protocol DAILY IVF 10/06/16 09:00 10/11/16 08:36 (NS Flush) See Protocol UNSCH PRN IVF 10/05/16 15:45 (Heparin Central Flush) See Protocol DAILY IVF 10/06/16 09:00 10/11/16 08:36 (Heparin Central Flush) See Protocol UNSCH PRN IVF 10/05/16 15:45 (NS Flush) See Protocol UNSCH PRN IVF 10/05/16 15:45 10/09/16 20:52 (Dilaudid) 2 mg Q6HR PRN PO 10/09/16 11:45 (Dilaudid) 4 mg Q6HR PRN PO 10/09/16 11:45 10/11/16 08:32 Date of Insertion: Sep 13, 2016 Date of Insertion: Oct 05, 2016 Line: PICC A/P Problem List: (1) Sacral decubitus ulcer ICD Code: L89.159 Status: Chronic (2) UTI (urinary tract infection) ICD Code: N39.0 Status: Acute (3) Constipation ICD Code: K59.00 Status: Resolved (4) Paraplegia ICD Code: G82.20 Status: Chronic (5) Neurogenic bladder ICD Code: N31.9 Status: Chronic Assessment and Plan Mr. Byrd is a 35-year-old male with PMH of Anxiety, Paraplegia, Neurogenic Bladder s/p Suprapubic Cath, Chronic UTI and Chronic Sacral Decubitus Ulcer who presented for evaluation of sacral wound. 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 Present at time of admission. Wound care nurse re-consulted, appreciate recommendations Wound VAC in place, wound care nurse to manage Plastic surgery did perform excisional debridement of chronic decubitus of left trochanter, sacrum, right ischium, scrotal wound. 09/28: Wound cultures from the sacrum and left trochanter. statement services representative spoke with Dr. Gruber who advised to discontinue the wound VAC for now. He advises applying Betadine moistened gauze loosely into the wound beds of sacrum and L trochanter and cover with dry dressing, to be changed daily. Infectious disease consulted because of wound cultures with Proteus mirabilis, MRSA. Urine culture with Proteus mirabilis and Escherichia coli. Continue Daptomycin. Recommending three-week duration. WBC remains normal. Monitor CPK level twice weekly. Last CPK 10/09/16: 152 10/10: I again spoke with dairy scientist. Patient to receive Veraflow wound vac. Pain control Dilaudid 2 mg by mouth every 4 hours as needed for pain Complicated urinary tract infection: Escherichia coli UTI on 06/08 and 07/06. History of proteus and E.coli UTI on last admission. Suprapubic catheter to be changed monthly last changed 10/04/16 Patient completed antibiotic regimen UA 09/26 with infection. Final urine culture with Proteus and Escherichia coli present. Patient has a history of both. Sensitivities and m.i.c. reviewed. ID evaluated patient on 09/29; agrees with continuing Ceftriaxone 1 g q24 hours. 10/02: I confirmed with Dr. Resendiz that he would like patient to remain on Ceftriaxone also for 3 weeks duration. Repeat culture now with Kat albicans, enterococcus faecalis Continue Fluconazole for 3 days Bowel regimen with history of constipation. Monitor ostomy output. Negative C.diff on 09/24/16. Monitor. Whitney-Colace daily, Dulcolax as needed Neurogenic Bladder: Secondary to Paraplegia. Suprapubic catheter changed 10/04/16 Paraplegia: At baseline. Continue home medications. Trapeze setup in place Multi-Podus boots Continue PT and OT. Recommendations given to case management to obtain wheelchair for patient DVT Prophylaxis: SCD/Teds, Lovenox. Discharge Planning PT recommends rehabilitation, wheelchair with removal arms and legs. No OT recommended. CM following. Problem Qualifiers (1) Sacral decubitus ulcer: Qualified Code: L89.154 - Decubitus ulcer of sacral region, stage 4 (2) UTI (urinary tract infection): Mary Lee Oct 11, 2016 12:39
[2016-10-11] MEDS: ENOXAPARIN SODIUM 40 MG/0.4 ML SYRINGE SQ SCH (12:48)
[2016-10-11] MEDS: cefTRIAXone INJ 1,000 MG in SODIUM CHLORIDE 0.9% INJ 100 ML IV SCH (12:48)
[2016-10-11 20:00] VITALS: BP 120/64; PULSE 81; RESP 20; TEMP 97; O2SAT 96
[2016-10-11] MEDS: DAPTOmycin INJ 600 MG in SODIUM CHLORIDE 0.9% INJ 100 ML IV SCH (20:08)
[2016-10-11] MEDS: ALPRAZolam 1 MG TAB PO PRN (22:13)
[2016-10-12 08:00] VITALS: BP 134/70; PULSE 81; RESP 18; TEMP 98; O2SAT 97
[2016-10-12] MEDS: PANTOPRAZOLE SOD 40 MG DELAYED RELEASE TAB PO SCH (08:11)
[2016-10-12] MEDS: DOCUSATE SODIUM 50 MG/SENNA 8.6 MG TAB PO SCH (08:11)
[2016-10-12] MEDS: HYDROmorphone HCL 4 MG TAB PO PRN ×3 (08:12→20:37)
[2016-10-12] MEDS: FERROUS SULFATE 325 MG (65 MG ELEMENTAL IRON) TAB PO SCH ×2 (08:12→18:21)
[2016-10-12] MEDS: GABAPENTIN 400 MG CAP PO SCH ×3 (08:12→18:21)
[2016-10-12] MEDS: HYDROCORTISONE 1% CREAM 30 GM TOPICAL SCH (08:14)
[2016-10-12] MEDS: LACTIC ACID (AMMONIUM LACTATE) 12% LOTION 225 GM BTL TOPICAL SCH ×2 (08:14→20:40)
[2016-10-12] MEDS: cefTRIAXone INJ 1,000 MG in SODIUM CHLORIDE 0.9% INJ 100 ML IV SCH (13:05)
[2016-10-12] MEDS: ENOXAPARIN SODIUM 40 MG/0.4 ML SYRINGE SQ SCH (18:22)
--- NOTE | 2016-10-12 19:35 | HHI.PR ---
Subjective Remarks Follow-up on patient with infected decubitus ulcer and UTI. Patient status post wound VAC application today. Patient seen and examined. Requests increase in pain medication since having wound VAC applied. No other medical complaints at this time. Objective Vitals Vital Signs Date Time Temp Pulse Resp B/P Pulse Ox O2 Delivery O2 Flow Rate FiO2 10/12/16 08:00 98.0 81 18 134/70 97 10/11/16 20:00 97.0 81 20 120/64 96 I/O 10/11/16 10/11/16 10/11/16 10/12/16 10/12/16 10/12/16 07:00 15:00 23:00 07:00 15:00 23:00 Intake Total 800 ml 720 ml 730 ml Output Total 950 ml 800 ml 850.00 ml 500.00 ml 950 ml Balance -150 ml -800 ml -130.00 ml -500.00 ml -220 ml Intake Oral 800 ml 720 ml 730 ml Output Urine Total 950 ml 800 ml 950 ml Blood Draw 850.00 ml 500.00 ml # Bowel Movements 0 Result Diagram: 10/09/1660410/09/16604 Objective Remarks GENERAL: Well-nourished well developed patient in no apparent distress. CARDIOVASCULAR: Regular rate and rhythm. RESPIRATORY: No accessory muscle use. Clear to auscultation. Breath sounds equal bilaterally. GASTROINTESTINAL: Abdomen distended with colostomy bag, non-tender. NEUROLOGICAL: Awake and alert. Normal speech. PSYCHIATRIC: Appropriate mood and affect; insight and judgment normal. Procedures Debridement Urinary Catheter: Yes Assessment to: Continue Peterson insert reason: Stage III/IV Press Ulcer Date of Insertion: October 04, 2016 Vascular Central Line Catheter: Yes Assessment to: Continue Date of Insertion: Oct 05, 2016 Line: PICC Procedures Debridement Medications and IVs Current Medications Medications (Trade) Dose Ordered Sig/Haja Route Start Time Stop Time Status Last Admin (Dulcolax Supp) 10 mg DAILY PRN [place] 06/08/16 20:00 (Tylenol) 650 mg Q6H PRN PO 06/08/16 20:00 09/24/16 19:51 (Xanax) 1 mg Q6H PRN PO 06/08/16 20:00 10/11/16 22:13 (Ferrous Sulfate) 325 mg BIDPC PO 06/09/16 09:00 10/12/16 18:21 (Neurontin) 800 mg TID PO 06/09/16 09:00 10/12/16 18:21 (ZyPREXA) 15 mg HS PO 06/08/16 21:00 10/11/16 20:08 (Protonix) 40 mg DAILY PO 06/09/16 09:00 10/12/16 08:11 (Benadryl) 25 mg Q4H PRN PO 06/23/16 16:00 09/13/16 14:20 (Whitney-Colace) 1 tab DAILY PO 07/11/16 09:00 10/12/16 08:11 (Lac-Hydrin 12% Lotion) 1 applic BID TOPICAL 07/24/16 11:00 10/12/16 08:14 (Zofran Odt) 4 mg Q6H PRN PO 08/11/16 07:15 (Hydrocortisone 1% Cream) 1 applic DAILY TOPICAL 08/18/16 14:00 10/12/16 08:14 (Silver Nitrate Applicators) 1 appl DAILY PRN TOPICAL 08/22/16 10:45 Enoxaparin Sodium 40 mg 40 mg Q24H SQ 08/28/16 16:00 10/12/16 18:22 Ceftriaxone Sodium 1000 mg/ Sodium Chloride 100 ml @ 200 mls/hr Q24H IV 09/28/16 13:00 10/18/16 13:00 10/12/16 13:05 (Cubicin Inj/NS Inj) 100 ml @ 200 mls/hr Q24H IV 09/29/16 20:00 10/11/16 20:08 (NS Flush) See Protocol DAILY IVF 10/06/16 09:00 10/12/16 08:11 (NS Flush) See Protocol UNSCH PRN IVF 10/05/16 15:45 (Heparin Central Flush) See Protocol DAILY IVF 10/06/16 09:00 10/12/16 08:11 (Heparin Central Flush) See Protocol UNSCH PRN IVF 10/05/16 15:45 (NS Flush) See Protocol UNSCH PRN IVF 10/05/16 15:45 10/09/16 20:52 (Dilaudid) 2 mg Q6HR PRN PO 10/09/16 11:45 (Dilaudid) 4 mg Q6HR PRN PO 10/09/16 11:45 10/12/16 14:08 Date of Insertion: Oct 04, 2016 Date of Insertion: Oct 05, 2016 Line: PICC A/P Problem List: (1) Sacral decubitus ulcer ICD Code: L89.159 Status: Chronic (2) UTI (urinary tract infection) ICD Code: N39.0 Status: Acute (3) Constipation ICD Code: K59.00 Status: Resolved (4) Paraplegia ICD Code: G82.20 Status: Chronic (5) Neurogenic bladder ICD Code: N31.9 Status: Chronic Assessment and Plan Mr. Byrd is a 35-year-old male with PMH of Anxiety, Paraplegia, Neurogenic Bladder s/p Suprapubic Cath, Chronic UTI and Chronic Sacral Decubitus Ulcer who presented for evaluation of sacral wound. 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 Present at time of admission. Wound care nurse re-consulted, appreciate recommendations Wound VAC in place, wound care nurse to manage Plastic surgery did perform excisional debridement of chronic decubitus of left trochanter, sacrum, right ischium, scrotal wound. 09/28: Wound cultures from the sacrum and left trochanter. 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 He advises applying Betadine moistened gauze loosely into the wound beds of sacrum and L trochanter and cover with dry dressing, to be changed daily. Infectious disease consulted because of wound cultures with Proteus mirabilis, MRSA. Urine culture with Proteus mirabilis and Escherichia coli. Continue Daptomycin. Recommending three-week duration. WBC remains normal. Monitor CPK level twice weekly. Last CPK 10/09/16: 152 10/10: I again spoke with recreation superintendent. Patient s/p Veraflow wound vac application today. Pain control Dilaudid 4mg by mouth every 4 hours as needed for pain. Complicated urinary tract infection: Escherichia coli UTI on 06/08 and 07/06. History of proteus and E.coli UTI on last admission. Suprapubic catheter to be changed monthly last changed 10/04/16 Patient completed antibiotic regimen UA 09/26 with infection. Final urine culture with Proteus and Escherichia coli present. Patient has a history of both. Sensitivities and m.i.c. reviewed. ID evaluated patient on 09/29; agrees with continuing Ceftriaxone 1 g q24 hours. 10/02: I confirmed with Dr. Resendiz that he would like patient to remain on Ceftriaxone also for 3 weeks duration. Repeat culture now with Kat albicans, enterococcus faecalis Continue Fluconazole for 3 days Bowel regimen with history of constipation. Monitor ostomy output. Negative C.diff on 09/24/16. Monitor. Whitney-Colace daily, Dulcolax as needed Neurogenic Bladder: Secondary to Paraplegia. Suprapubic catheter changed 10/04/16 Paraplegia: At baseline. Continue home medications. Trapeze setup in place Multi-Podus boots Continue PT and OT. Recommendations given to case management to obtain wheelchair for patient DVT Prophylaxis: SCD/Teds, Lovenox. Discharge Planning PT recommends rehabilitation, wheelchair with removal arms and legs. No OT recommended. CM following. Attending Statement Patient seen. Agree with above. Problem Qualifiers (1) Sacral decubitus ulcer: Qualified Code: L89.154 - Decubitus ulcer of sacral region, stage 4 (2) UTI (urinary tract infection): Mary Lee Oct 12, 2016 19:35 Sergei Slaughter MD Oct 13, 2016 07:25
[2016-10-12 20:00] VITALS: BP 139/96; PULSE 85; RESP 20; TEMP 96.7; O2SAT 98
[2016-10-12] MEDS: DAPTOmycin INJ 600 MG in SODIUM CHLORIDE 0.9% INJ 100 ML IV SCH (20:32)
[2016-10-12] MEDS: ALPRAZolam 1 MG TAB PO PRN (20:36)
[2016-10-13 08:00] VITALS: BP 129/76; PULSE 81; RESP 20; TEMP 97.9; O2SAT 97
[2016-10-13] MEDS: LACTIC ACID (AMMONIUM LACTATE) 12% LOTION 225 GM BTL TOPICAL SCH ×2 (09:00→20:29)
[2016-10-13] MEDS: HYDROCORTISONE 1% CREAM 30 GM TOPICAL SCH (09:00)
[2016-10-13] MEDS: FERROUS SULFATE 325 MG (65 MG ELEMENTAL IRON) TAB PO SCH ×2 (09:33→17:48)
[2016-10-13] MEDS: DOCUSATE SODIUM 50 MG/SENNA 8.6 MG TAB PO SCH (09:33)
[2016-10-13] MEDS: PANTOPRAZOLE SOD 40 MG DELAYED RELEASE TAB PO SCH (09:33)
[2016-10-13] MEDS: GABAPENTIN 400 MG CAP PO SCH ×3 (09:33→17:48)
[2016-10-13] MEDS: HYDROmorphone HCL 4 MG TAB PO PRN ×3 (09:34→21:20)
[2016-10-13] MEDS: cefTRIAXone INJ 1,000 MG in SODIUM CHLORIDE 0.9% INJ 100 ML IV SCH (13:38)
--- NOTE | 2016-10-13 13:39 | HHI.PR ---
Subjective Remarks Vital patient with infected decubitus ulcer and urinary tract infection. Patient underwent dressing changes of both wound vacs earlier today. States he' s feeling well with no new complaints. Denies any complaints of chest pain or shortness of breath. Objective Vitals Vital Signs Date Time Temp Pulse Resp B/P Pulse Ox O2 Delivery O2 Flow Rate FiO2 10/13/16 08:00 97.9 81 20 129/76 97 10/12/16 20:00 96.7 85 20 139/96 98 I/O 10/12/16 10/12/16 10/12/16 10/13/16 10/13/16 10/13/16 07:00 15:00 23:00 07:00 15:00 23:00 Intake Total 730 ml 720 ml 600 ml Output Total 500.00 ml 950 ml 900 ml 1150 ml Balance -500.00 ml -220 ml -180 ml -550 ml Intake Oral 730 ml 720 ml 600 ml Output Urine Total 950 ml 900 ml 1000 ml Stool Total 0 ml 150 ml Blood Draw 500.00 ml # Bowel Movements 0 Result Diagram: 10/09/1660410/09/16604 Objective Remarks GENERAL: Well-nourished well developed patient in no apparent distress. CARDIOVASCULAR: Regular rate and rhythm. RESPIRATORY: No accessory muscle use. Clear to auscultation. Breath sounds equal bilaterally. GASTROINTESTINAL: Abdomen distended with colostomy bag, non-tender. NEUROLOGICAL: Awake and alert. Normal speech. PSYCHIATRIC: Appropriate mood and affect; insight and judgment normal. Procedures Debridement Urinary Catheter: Yes Assessment to: Continue Peterson insert reason: Stage III/IV Press Ulcer Date of Insertion: October 04, 2016 Vascular Central Line Catheter: Yes Assessment to: Continue Date of Insertion: Oct 05, 2016 Line: PICC Procedures Debridement Medications and IVs Current Medications Medications (Trade) Dose Ordered Sig/Haja Route Start Time Stop Time Status Last Admin (Dulcolax Supp) 10 mg DAILY PRN [place] 06/08/16 20:00 (Tylenol) 650 mg Q6H PRN PO 06/08/16 20:00 09/24/16 19:51 (Xanax) 1 mg Q6H PRN PO 06/08/16 20:00 10/12/16 20:36 (Ferrous Sulfate) 325 mg BIDPC PO 06/09/16 09:00 10/13/16 09:33 (Neurontin) 800 mg TID PO 06/09/16 09:00 10/13/16 09:33 (ZyPREXA) 15 mg HS PO 06/08/16 21:00 10/12/16 20:32 (Protonix) 40 mg DAILY PO 06/09/16 09:00 10/13/16 09:33 (Benadryl) 25 mg Q4H PRN PO 06/23/16 16:00 09/13/16 14:20 (Whitney-Colace) 1 tab DAILY PO 07/11/16 09:00 10/13/16 09:33 (Lac-Hydrin 12% Lotion) 1 applic BID TOPICAL 07/24/16 11:00 10/13/16 09:00 (Zofran Odt) 4 mg Q6H PRN PO 08/11/16 07:15 (Hydrocortisone 1% Cream) 1 applic DAILY TOPICAL 08/18/16 14:00 10/13/16 09:00 (Silver Nitrate Applicators) 1 appl DAILY PRN TOPICAL 08/22/16 10:45 Enoxaparin Sodium 40 mg 40 mg Q24H SQ 08/28/16 16:00 10/12/16 18:22 Ceftriaxone Sodium 1000 mg/ Sodium Chloride 100 ml @ 200 mls/hr Q24H IV 09/28/16 13:00 10/18/16 13:00 10/12/16 13:05 (Cubicin Inj/NS Inj) 100 ml @ 200 mls/hr Q24H IV 09/29/16 20:00 10/12/16 20:32 (NS Flush) See Protocol DAILY IVF 10/06/16 09:00 10/13/16 09:34 (NS Flush) See Protocol UNSCH PRN IVF 10/05/16 15:45 (Heparin Central Flush) See Protocol DAILY IVF 10/06/16 09:00 10/13/16 09:34 (Heparin Central Flush) See Protocol UNSCH PRN IVF 10/05/16 15:45 (NS Flush) See Protocol UNSCH PRN IVF 10/05/16 15:45 10/09/16 20:52 (Dilaudid) 2 mg Q6HR PRN PO 10/09/16 11:45 (Dilaudid) 4 mg Q6HR PRN PO 10/09/16 11:45 10/13/16 09:34 Date of Insertion: Oct 04, 2016 Date of Insertion: Oct 05, 2016 Line: PICC A/P Problem List: (1) Sacral decubitus ulcer ICD Code: L89.159 Status: Chronic (2) UTI (urinary tract infection) ICD Code: N39.0 Status: Acute (3) Constipation ICD Code: K59.00 Status: Resolved (4) Paraplegia ICD Code: G82.20 Status: Chronic (5) Neurogenic bladder ICD Code: N31.9 Status: Chronic Assessment and Plan Mr. Byrd is a 35-year-old male with PMH of Anxiety, Paraplegia, Neurogenic Bladder s/p Suprapubic Cath, Chronic UTI and Chronic Sacral Decubitus Ulcer who presented for evaluation of sacral wound. 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 Present at time of admission. Wound care nurse re-consulted, appreciate recommendations Wound VAC in place, wound care nurse to manage, status post dressing change today. Plastic surgery did perform excisional debridement of chronic decubitus of left trochanter, sacrum, right ischium, scrotal wound. 09/28: Wound cultures from the sacrum and left trochanter. 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 He advises applying Betadine moistened gauze loosely into the wound beds of sacrum and L trochanter and cover with dry dressing, to be changed daily. Infectious disease consulted because of wound cultures with Proteus mirabilis, MRSA. Urine culture with Proteus mirabilis and Escherichia coli. Continue Daptomycin. Recommending three-week duration. WBC remains normal. Monitor CPK level twice weekly. Last CPK 10/09/16: 152 10/11: s/p Veraflow wound vac application. Pain control Dilaudid 4mg by mouth every 4 hours as needed for pain. Complicated urinary tract infection: Escherichia coli UTI on 06/08 and 07/06. History of proteus and E.coli UTI on last admission. Suprapubic catheter to be changed monthly last changed 10/04/16 Patient completed antibiotic regimen UA 09/26 with infection. Final urine culture with Proteus and Escherichia coli present. Patient has a history of both. Sensitivities and m.i.c. reviewed. ID evaluated patient on 09/29; agrees with continuing Ceftriaxone 1 g q24 hours. 10/02: I confirmed with Dr. Resendiz that he would like patient to remain on Ceftriaxone also for 3 weeks duration. Repeat culture now with Kat albicans, enterococcus faecalis Continue Fluconazole for 3 days Bowel regimen with history of constipation. Monitor ostomy output. Negative C.diff on 09/24/16. Monitor. Whitney-Colace daily, Dulcolax as needed Neurogenic Bladder: Secondary to Paraplegia. Suprapubic catheter changed 10/04/16 Paraplegia: At baseline. Continue home medications. Trapeze setup in place Multi-Podus boots Continue PT and OT. Recommendations given to case management to obtain wheelchair for patient DVT Prophylaxis: SCD/Teds, Lovenox. Discharge Planning PT recommends rehabilitation, wheelchair with removal arms and legs. No OT recommended. CM following. Attending Statement Patient seen. Agree with above. Problem Qualifiers (1) Sacral decubitus ulcer: Qualified Code: L89.154 - Decubitus ulcer of sacral region, stage 4 (2) UTI (urinary tract infection): Mary Lee Oct 13, 2016 13:39 Sergei Slaughter MD Oct 13, 2016 18:47
[2016-10-13] MEDS: ENOXAPARIN SODIUM 40 MG/0.4 ML SYRINGE SQ SCH (16:34)
[2016-10-13 20:00] VITALS: BP 116/78; PULSE 76; RESP 19; TEMP 96.8; O2SAT 95
[2016-10-13] MEDS: DAPTOmycin INJ 600 MG in SODIUM CHLORIDE 0.9% INJ 100 ML IV SCH (20:16)
[2016-10-13] MEDS: ALPRAZolam 1 MG TAB PO PRN (20:28)
[2016-10-14 07:15] VITALS: BP 112/73; PULSE 71; RESP 21; TEMP 96.1; O2SAT 96
[2016-10-14] MEDS: DOCUSATE SODIUM 50 MG/SENNA 8.6 MG TAB PO SCH (08:25)
[2016-10-14] MEDS: PANTOPRAZOLE SOD 40 MG DELAYED RELEASE TAB PO SCH (08:25)
[2016-10-14] MEDS: ALPRAZolam 1 MG TAB PO PRN ×2 (08:26→20:02)
[2016-10-14] MEDS: FERROUS SULFATE 325 MG (65 MG ELEMENTAL IRON) TAB PO SCH ×2 (08:26→17:51)
[2016-10-14] MEDS: GABAPENTIN 400 MG CAP PO SCH ×3 (08:26→17:51)
[2016-10-14] MEDS: HYDROmorphone HCL 4 MG TAB PO PRN ×3 (08:26→21:21)
[2016-10-14] MEDS: HYDROCORTISONE 1% CREAM 30 GM TOPICAL SCH (08:27)
[2016-10-14] MEDS: LACTIC ACID (AMMONIUM LACTATE) 12% LOTION 225 GM BTL TOPICAL SCH ×2 (08:28→20:03)
[2016-10-14] MEDS: cefTRIAXone INJ 1,000 MG in SODIUM CHLORIDE 0.9% INJ 100 ML IV SCH (12:10)
--- NOTE | 2016-10-14 12:56 | HHI.PR ---
Subjective Remarks Follow-up on patient with infected decubitus ulcer and urinary tract infection. Patient seen and examined. Patient has no acute complaints. No chest pain or shortness of breath. Objective Vitals Vital Signs Date Time Temp Pulse Resp B/P Pulse Ox O2 Delivery O2 Flow Rate FiO2 10/14/16 09:26 20 10/14/16 07:15 96.1 71 21 112/73 96 10/13/16 20:00 96.8 76 19 116/78 95 I/O 10/13/16 10/13/16 10/13/16 10/14/16 10/14/16 10/14/16 07:00 15:00 23:00 07:00 15:00 23:00 Intake Total 600 ml 530 ml 630 ml 480 ml Output Total 1150 ml 550 ml 950 ml 850 ml Balance -550 ml -20 ml -320 ml -370 ml Intake Oral 600 ml 430 ml 480 ml 480 ml IV Total 100 ml 150 ml 0 ml Output Urine Total 1000 ml 550 ml 950 ml 850 ml Stool Total 150 ml 0 ml 0 ml # Bowel Movements 0 0 Objective Remarks GENERAL: Well-nourished well developed patient in no apparent distress. Lying in hospital bed. Awake. CARDIOVASCULAR: Regular rate and rhythm. RESPIRATORY: No accessory muscle use. Clear to auscultation. Breath sounds equal bilaterally. GASTROINTESTINAL: Abdomen distended with colostomy bag, non-tender. NEUROLOGICAL: Awake and alert. Normal speech. PSYCHIATRIC: Appropriate mood and affect; insight and judgment normal. Procedures Debridement Urinary Catheter: Yes Assessment to: Continue Peterson insert reason: Stage III/IV Press Ulcer Date of Insertion: October 04, 2016 Vascular Central Line Catheter: Yes Assessment to: Continue Date of Insertion: Oct 05, 2016 Line: PICC Procedures Debridement Medications and IVs Current Medications Medications (Trade) Dose Ordered Sig/Haja Route Start Time Stop Time Status Last Admin (Dulcolax Supp) 10 mg DAILY PRN [place] 06/08/16 20:00 (Tylenol) 650 mg Q6H PRN PO 06/08/16 20:00 09/24/16 19:51 (Xanax) 1 mg Q6H PRN PO 06/08/16 20:00 10/14/16 08:26 (Ferrous Sulfate) 325 mg BIDPC PO 06/09/16 09:00 10/14/16 08:26 (Neurontin) 800 mg TID PO 06/09/16 09:00 10/14/16 12:10 (ZyPREXA) 15 mg HS PO 06/08/16 21:00 10/13/16 20:14 (Protonix) 40 mg DAILY PO 06/09/16 09:00 10/14/16 08:25 (Benadryl) 25 mg Q4H PRN PO 06/23/16 16:00 09/13/16 14:20 (Whitney-Colace) 1 tab DAILY PO 07/11/16 09:00 10/14/16 08:25 (Lac-Hydrin 12% Lotion) 1 applic BID TOPICAL 07/24/16 11:00 10/14/16 08:28 (Zofran Odt) 4 mg Q6H PRN PO 08/11/16 07:15 (Hydrocortisone 1% Cream) 1 applic DAILY TOPICAL 08/18/16 14:00 10/14/16 08:27 (Silver Nitrate Applicators) 1 appl DAILY PRN TOPICAL 08/22/16 10:45 Enoxaparin Sodium 40 mg 40 mg Q24H SQ 08/28/16 16:00 10/13/16 16:34 Ceftriaxone Sodium 1000 mg/ Sodium Chloride 100 ml @ 200 mls/hr Q24H IV 09/28/16 13:00 10/18/16 13:00 10/14/16 12:10 (Cubicin Inj/NS Inj) 100 ml @ 200 mls/hr Q24H IV 09/29/16 20:00 10/13/16 20:16 (NS Flush) See Protocol DAILY IVF 10/06/16 09:00 10/14/16 08:27 (NS Flush) See Protocol UNSCH PRN IVF 10/05/16 15:45 (Heparin Central Flush) See Protocol DAILY IVF 10/06/16 09:00 10/14/16 08:27 (Heparin Central Flush) See Protocol UNSCH PRN IVF 10/05/16 15:45 (NS Flush) See Protocol UNSCH PRN IVF 10/05/16 15:45 10/13/16 20:16 (Dilaudid) 2 mg Q6HR PRN PO 10/09/16 11:45 (Dilaudid) 4 mg Q6HR PRN PO 10/09/16 11:45 10/14/16 08:26 Date of Insertion: Oct 04, 2016 Date of Insertion: Oct 05, 2016 Line: PICC A/P Problem List: (1) Sacral decubitus ulcer ICD Code: L89.159 Status: Chronic (2) UTI (urinary tract infection) ICD Code: N39.0 Status: Acute (3) Constipation ICD Code: K59.00 Status: Resolved (4) Paraplegia ICD Code: G82.20 Status: Chronic (5) Neurogenic bladder ICD Code: N31.9 Status: Chronic Assessment and Plan Mr. Byrd is a 35-year-old male with PMH of Anxiety, Paraplegia, Neurogenic Bladder s/p Suprapubic Cath, Chronic UTI and Chronic Sacral Decubitus Ulcer who presented for evaluation of sacral wound. 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 Present at time of admission. Wound care nurse re-consulted, appreciate recommendations Wound VAC in place, wound care nurse to manage. Plastic surgery did perform excisional debridement of chronic decubitus of left trochanter, sacrum, right ischium, scrotal wound. Infectious disease consulted because of wound cultures with Proteus mirabilis, MRSA. Urine culture with Proteus mirabilis and Escherichia coli. Continue Daptomycin. Recommending three-week duration. WBC remains normal. Monitor CPK level twice weekly. Last CPK 10/14/16: 202 10/11: s/p Veraflow wound vac application. Continue with wound VAC changes M/ W/F. Pain control Continue Dilaudid 4mg by mouth every 4 hours as needed for pain. Complicated urinary tract infection: Escherichia coli UTI on 06/08 and 07/06. History of proteus and E.coli UTI on last admission. Suprapubic catheter to be changed monthly last changed 10/04/16 Patient completed antibiotic regimen UA 09/26 with infection. Final urine culture with Proteus and Escherichia coli present. Patient has a history of both. Sensitivities and m.i.c. reviewed. ID evaluated patient on 09/29; agrees with continuing Ceftriaxone 1 g q24 hours. 10/02: I confirmed with Dr. Resendiz that he would like patient to remain on Ceftriaxone also for 3 weeks duration. Repeat culture now with Kat albicans, enterococcus faecalis Continue Fluconazole for 3 days Bowel regimen with history of constipation. Monitor ostomy output. Negative C.diff on 09/24/16. Monitor. Whitney-Colace daily, Dulcolax as needed Neurogenic Bladder: Secondary to Paraplegia. Suprapubic catheter changed 10/04/16 Paraplegia: At baseline. Continue home medications. Trapeze setup in place Multi-Podus boots Continue PT and OT. Recommendations given to case management to obtain wheelchair for patient DVT Prophylaxis: SCD/Teds, Lovenox. Discharge Planning PT recommends rehabilitation, wheelchair with removal arms and legs. No OT recommended. CM following. Attending Statement Patient seen. Agree with above. Problem Qualifiers (1) Sacral decubitus ulcer: Qualified Code: L89.154 - Decubitus ulcer of sacral region, stage 4 (2) UTI (urinary tract infection): Mary Lee Oct 14, 2016 12:56 Sergei Slaughter MD Oct 14, 2016 15:47
[2016-10-14] MEDS: ENOXAPARIN SODIUM 40 MG/0.4 ML SYRINGE SQ SCH (15:35)
[2016-10-14 20:00] VITALS: BP 138/90; PULSE 97; RESP 20; TEMP 97.7; O2SAT 98
[2016-10-14] MEDS: DAPTOmycin INJ 600 MG in SODIUM CHLORIDE 0.9% INJ 100 ML IV SCH (20:02)
[2016-10-15] MEDS: HYDROmorphone HCL 4 MG TAB PO PRN ×4 (06:12→21:52)
[2016-10-15 07:57] VITALS: BP 115/78; PULSE 78; RESP 16; TEMP 97.3; O2SAT 95
[2016-10-15] MEDS: ENOXAPARIN SODIUM 40 MG/0.4 ML SYRINGE SQ SCH (10:25)
[2016-10-15] MEDS: FERROUS SULFATE 325 MG (65 MG ELEMENTAL IRON) TAB PO SCH ×2 (10:25→16:44)
[2016-10-15] MEDS: GABAPENTIN 400 MG CAP PO SCH ×3 (10:26→16:44)
[2016-10-15] MEDS: PANTOPRAZOLE SOD 40 MG DELAYED RELEASE TAB PO SCH (10:26)
[2016-10-15] MEDS: DOCUSATE SODIUM 50 MG/SENNA 8.6 MG TAB PO SCH (10:26)
[2016-10-15] MEDS: HYDROCORTISONE 1% CREAM 30 GM TOPICAL SCH (10:29)
[2016-10-15] MEDS: LACTIC ACID (AMMONIUM LACTATE) 12% LOTION 225 GM BTL TOPICAL SCH ×2 (10:29→21:02)
[2016-10-15] MEDS: cefTRIAXone INJ 1,000 MG in SODIUM CHLORIDE 0.9% INJ 100 ML IV SCH (12:49)
--- NOTE | 2016-10-15 15:02 | HHI.PR ---
Subjective Remarks Follow-up on patient with infected decubitus ulcer and urinary tract infection. Patient seen and examined today. He is sleeping but easily arousable. Patient has no acute complaints. No issues with chest pain or shortness of breath. Objective Vitals Vital Signs Date Time Temp Pulse Resp B/P Pulse Ox O2 Delivery O2 Flow Rate FiO2 10/15/16 07:57 97.3 78 16 115/78 95 10/14/16 20:00 97.7 97 20 138/90 98 10/14/16 16:34 20 I/O 10/14/16 10/14/16 10/14/16 10/15/16 10/15/16 10/15/16 07:00 15:00 23:00 07:00 15:00 23:00 Intake Total 480 ml 480 ml 240 ml 100 ml Output Total 850 ml 2450.00 ml 900.00 ml Balance -370 ml -1970.00 ml -660.00 ml 100 ml Intake Oral 480 ml 480 ml 240 ml 100 ml IV Total 0 ml Output Urine Total 850 ml 1800 ml Stool Total 0 ml Blood Draw 650.00 ml 900.00 ml # Bowel Movements 0 0 Objective Remarks GENERAL: Well-nourished well developed patient in no apparent distress. Lying in hospital bed. Asleep but easily arousable. CARDIOVASCULAR: Regular rate and rhythm. RESPIRATORY: No accessory muscle use. Clear to auscultation. Breath sounds equal bilaterally. GASTROINTESTINAL: Abdomen distended with colostomy bag, non-tender. NEUROLOGICAL: Awake and alert. Normal speech. PSYCHIATRIC: Appropriate mood and affect; insight and judgment normal. Procedures Debridement Urinary Catheter: Yes Assessment to: Continue Peterson insert reason: Stage III/IV Press Ulcer Date of Insertion: October 04, 2016 Vascular Central Line Catheter: Yes Assessment to: Continue Date of Insertion: Oct 05, 2016 Line: PICC Procedures Debridement Medications and IVs Current Medications Medications (Trade) Dose Ordered Sig/Haja Route Start Time Stop Time Status Last Admin (Dulcolax Supp) 10 mg DAILY PRN [place] 06/08/16 20:00 (Tylenol) 650 mg Q6H PRN PO 06/08/16 20:00 09/24/16 19:51 (Xanax) 1 mg Q6H PRN PO 06/08/16 20:00 10/14/16 20:02 (Ferrous Sulfate) 325 mg BIDPC PO 06/09/16 09:00 10/15/16 10:25 (Neurontin) 800 mg TID PO 06/09/16 09:00 10/15/16 12:48 (ZyPREXA) 15 mg HS PO 06/08/16 21:00 10/14/16 20:02 (Protonix) 40 mg DAILY PO 06/09/16 09:00 10/15/16 10:26 (Benadryl) 25 mg Q4H PRN PO 06/23/16 16:00 09/13/16 14:20 (Whitney-Colace) 1 tab DAILY PO 07/11/16 09:00 10/15/16 10:26 (Lac-Hydrin 12% Lotion) 1 applic BID TOPICAL 07/24/16 11:00 10/15/16 10:29 (Zofran Odt) 4 mg Q6H PRN PO 08/11/16 07:15 (Hydrocortisone 1% Cream) 1 applic DAILY TOPICAL 08/18/16 14:00 10/15/16 10:29 (Silver Nitrate Applicators) 1 appl DAILY PRN TOPICAL 08/22/16 10:45 Enoxaparin Sodium 40 mg 40 mg Q24H SQ 08/28/16 16:00 10/15/16 10:25 Ceftriaxone Sodium 1000 mg/ Sodium Chloride 100 ml @ 200 mls/hr Q24H IV 09/28/16 13:00 10/18/16 13:00 10/15/16 12:49 (Cubicin Inj/NS Inj) 100 ml @ 200 mls/hr Q24H IV 09/29/16 20:00 10/14/16 20:02 (NS Flush) See Protocol DAILY IVF 10/06/16 09:00 10/15/16 09:00 (NS Flush) See Protocol UNSCH PRN IVF 10/05/16 15:45 (Heparin Central Flush) See Protocol DAILY IVF 10/06/16 09:00 10/15/16 10:26 (Heparin Central Flush) See Protocol UNSCH PRN IVF 10/05/16 15:45 (NS Flush) See Protocol UNSCH PRN IVF 10/05/16 15:45 10/14/16 20:02 (Dilaudid) 2 mg Q6HR PRN PO 10/09/16 11:45 (Dilaudid) 4 mg Q6HR PRN PO 10/09/16 11:45 10/15/16 10:25 Date of Insertion: Oct 04, 2016 Date of Insertion: Oct 05, 2016 Line: PICC A/P Problem List: (1) Sacral decubitus ulcer ICD Code: L89.159 Status: Chronic (2) UTI (urinary tract infection) ICD Code: N39.0 Status: Acute (3) Constipation ICD Code: K59.00 Status: Resolved (4) Paraplegia ICD Code: G82.20 Status: Chronic (5) Neurogenic bladder ICD Code: N31.9 Status: Chronic Assessment and Plan Mr. Byrd is a 35-year-old male with PMH of Anxiety, Paraplegia, Neurogenic Bladder s/p Suprapubic Cath, Chronic UTI and Chronic Sacral Decubitus Ulcer who presented for evaluation of sacral wound. 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 Present at time of admission. Wound care nurse re-consulted, appreciate recommendations Wound VAC in place, wound care nurse to manage. Dressing change tomorrow Plastic surgery did perform excisional debridement of chronic decubitus of left trochanter, sacrum, right ischium, scrotal wound. Infectious disease consulted because of wound cultures with Proteus mirabilis, MRSA. Urine culture with Proteus mirabilis and Escherichia coli. Continue Daptomycin. Recommending three-week duration. WBC remains normal. Monitor CPK level twice weekly. Last CPK 10/14/16: 202. Next lab draw on the . 10/11: s/p Veraflow wound vac application. Continue with wound VAC changes M/ /. Pain control Continue Dilaudid 4mg by mouth every 4 hours as needed for pain. Complicated urinary tract infection: Escherichia coli UTI on 06/08 and 07/06. History of proteus and E.coli UTI on last admission. Suprapubic catheter to be changed monthly last changed 10/04/16 Patient completed antibiotic regimen UA 09/26 with infection. Final urine culture with Proteus and Escherichia coli present. Patient has a history of both. Sensitivities and m.i.c. reviewed. ID evaluated patient on 09/29; agrees with continuing Ceftriaxone 1 g q24 hours. 10/02: I confirmed with Dr. Resendiz that he would like patient to remain on Ceftriaxone also for 3 weeks duration. Stop date 10/18/16. Repeat culture now with Kat albicans, enterococcus faecalis Continue Fluconazole for 3 days Bowel regimen with history of constipation. Monitor ostomy output. Negative C.diff on 09/24/16. Monitor. Wihtney-Colace daily, Dulcolax as needed Neurogenic Bladder: Secondary to Paraplegia. Suprapubic catheter changed 10/04/16 Paraplegia: At baseline. Continue home medications. Trapeze setup in place Multi-Podus boots Continue PT and OT. Recommendations given to case management to obtain wheelchair for patient DVT Prophylaxis: SCD/Teds, Lovenox. Discharge Planning PT recommends rehabilitation, wheelchair with removal arms and legs. No OT recommended. CM following. Attending Statement Patient seen. Agree with above. Problem Qualifiers (1) Sacral decubitus ulcer: Qualified Code: L89.154 - Decubitus ulcer of sacral region, stage 4 (2) UTI (urinary tract infection): Mary eLe Oct 15, 2016 15:02 Sergei Slaughter MD Oct 15, 2016 15:43
[2016-10-15 20:00] VITALS: BP 127/79; PULSE 82; RESP 19; TEMP 96.6; O2SAT 97
[2016-10-15] MEDS: ALPRAZolam 1 MG TAB PO PRN (21:00)
[2016-10-15] MEDS: DAPTOmycin INJ 600 MG in SODIUM CHLORIDE 0.9% INJ 100 ML IV SCH (21:00)
[2016-10-16] MEDS: HYDROmorphone HCL 4 MG TAB PO PRN ×3 (06:12→21:21)
[2016-10-16] MEDS: DOCUSATE SODIUM 50 MG/SENNA 8.6 MG TAB PO SCH (07:52)
[2016-10-16] MEDS: GABAPENTIN 400 MG CAP PO SCH ×3 (07:52→17:56)
[2016-10-16] MEDS: PANTOPRAZOLE SOD 40 MG DELAYED RELEASE TAB PO SCH (07:52)
[2016-10-16] MEDS: FERROUS SULFATE 325 MG (65 MG ELEMENTAL IRON) TAB PO SCH ×2 (07:52→17:57)
[2016-10-16] MEDS: HYDROCORTISONE 1% CREAM 30 GM TOPICAL SCH (07:55)
[2016-10-16] MEDS: LACTIC ACID (AMMONIUM LACTATE) 12% LOTION 225 GM BTL TOPICAL SCH (07:56)
[2016-10-16 08:00] VITALS: BP 140/73; PULSE 88; RESP 18; TEMP 97.4; O2SAT 98
[2016-10-16] MEDS: cefTRIAXone INJ 1,000 MG in SODIUM CHLORIDE 0.9% INJ 100 ML IV SCH (12:51)
--- NOTE | 2016-10-16 17:41 | HHI.PR ---
Subjective Remarks Follow-up on patient with infected decubitus ulcer and urinary tract infection. Patient seen and examined. Patient states he stayed up most of the night and as a result is very tired today. He denies any complaints of chest pain, shortness of breath or abdominal pain. Objective Vitals Vital Signs Date Time Temp Pulse Resp B/P Pulse Ox O2 Delivery O2 Flow Rate FiO2 10/16/16 13:52 14 10/16/16 08:00 97.4 88 18 140/73 98 10/15/16 20:00 96.6 82 19 127/79 97 I/O 10/15/16 10/15/16 10/15/16 10/16/16 10/16/16 10/16/16 07:00 15:00 23:00 07:00 15:00 23:00 Intake Total 240 ml 100 ml 1578 ml 480 ml 100 ml Output Total 900.00 ml 2100.00 ml 900.00 ml Balance -660.00 ml 100 ml -522.00 ml -420.00 ml 100 ml Intake Oral 240 ml 100 ml 1480 ml 480 ml 100 ml IV Total 98 ml Output Urine Total 1400 ml Blood Draw 900.00 ml 700.00 ml 900.00 ml # Bowel Movements 1 Objective Remarks GENERAL: Well-nourished well developed patient in no apparent distress. Lying in hospital bed. Asleep but easily arousable. CARDIOVASCULAR: Regular rate and rhythm. RESPIRATORY: No accessory muscle use. Clear to auscultation. Breath sounds equal bilaterally. GASTROINTESTINAL: Abdomen distended with colostomy bag with brown formed stool, non-tender. NEUROLOGICAL: Awake and alert. Normal speech. PSYCHIATRIC: Appropriate mood and affect; insight and judgment normal. Procedures Debridement Urinary Catheter: Yes Assessment to: Continue Peterson insert reason: Stage III/IV Press Ulcer Date of Insertion: October 04, 2016 Vascular Central Line Catheter: Yes Assessment to: Continue Date of Insertion: Oct 05, 2016 Line: PICC Procedures Debridement Medications and IVs Current Medications Medications (Trade) Dose Ordered Sig/Haja Route Start Time Stop Time Status Last Admin (Dulcolax Supp) 10 mg DAILY PRN [place] 06/08/16 20:00 (Tylenol) 650 mg Q6H PRN PO 06/08/16 20:00 09/24/16 19:51 (Xanax) 1 mg Q6H PRN PO 06/08/16 20:00 10/15/16 21:00 (Ferrous Sulfate) 325 mg BIDPC PO 06/09/16 09:00 10/16/16 07:52 (Neurontin) 800 mg TID PO 06/09/16 09:00 10/16/16 12:51 (ZyPREXA) 15 mg HS PO 06/08/16 21:00 10/15/16 21:00 (Protonix) 40 mg DAILY PO 06/09/16 09:00 10/16/16 07:52 (Benadryl) 25 mg Q4H PRN PO 06/23/16 16:00 09/13/16 14:20 (Whitney-Colace) 1 tab DAILY PO 07/11/16 09:00 10/16/16 07:52 (Lac-Hydrin 12% Lotion) 1 applic BID TOPICAL 07/24/16 11:00 10/16/16 07:56 (Zofran Odt) 4 mg Q6H PRN PO 08/11/16 07:15 (Hydrocortisone 1% Cream) 1 applic DAILY TOPICAL 08/18/16 14:00 10/16/16 07:55 (Silver Nitrate Applicators) 1 appl DAILY PRN TOPICAL 08/22/16 10:45 Enoxaparin Sodium 40 mg 40 mg Q24H SQ 08/28/16 16:00 10/15/16 10:25 Ceftriaxone Sodium 1000 mg/ Sodium Chloride 100 ml @ 200 mls/hr Q24H IV 09/28/16 13:00 10/18/16 13:00 10/16/16 12:51 (Cubicin Inj/NS Inj) 100 ml @ 200 mls/hr Q24H IV 09/29/16 20:00 10/15/16 21:00 (NS Flush) See Protocol DAILY IVF 10/06/16 09:00 10/16/16 07:52 (NS Flush) See Protocol UNSCH PRN IVF 10/05/16 15:45 (Heparin Central Flush) See Protocol DAILY IVF 10/06/16 09:00 10/16/16 07:52 (Heparin Central Flush) See Protocol UNSCH PRN IVF 10/05/16 15:45 (NS Flush) See Protocol UNSCH PRN IVF 10/05/16 15:45 10/14/16 20:02 (Dilaudid) 2 mg Q6HR PRN PO 10/09/16 11:45 (Dilaudid) 4 mg Q6HR PRN PO 10/09/16 11:45 10/16/16 12:51 Date of Insertion: Oct 04, 2016 Date of Insertion: Oct 05, 2016 Line: PICC A/P Problem List: (1) Sacral decubitus ulcer ICD Code: L89.159 Status: Chronic (2) UTI (urinary tract infection) ICD Code: N39.0 Status: Acute (3) Constipation ICD Code: K59.00 Status: Resolved (4) Paraplegia ICD Code: G82.20 Status: Chronic (5) Neurogenic bladder ICD Code: N31.9 Status: Chronic Assessment and Plan Mr. Byrd is a 35-year-old male with PMH of Anxiety, Paraplegia, Neurogenic Bladder s/p Suprapubic Cath, Chronic UTI and Chronic Sacral Decubitus Ulcer who presented for evaluation of sacral wound. 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 Present at time of admission. Wound care nurse re-consulted, appreciate recommendations Wound VAC in place, wound care nurse to manage. Dressing change today. Plastic surgery did perform excisional debridement of chronic decubitus of left trochanter, sacrum, right ischium, scrotal wound. Infectious disease consulted because of wound cultures with Proteus mirabilis, MRSA. Urine culture with Proteus mirabilis and Escherichia coli. Continue Daptomycin. Recommending three-week duration. WBC remains normal. Monitor CPK level twice weekly. Last CPK 10/14/16: 202. Next lab draw on the . 10/11: s/p Veraflow wound vac application. Continue with wound VAC changes M/ W/. Pain control Continue Dilaudid 4mg by mouth every 4 hours as needed for pain. Complicated urinary tract infection: Escherichia coli UTI on 06/08 and 07/06. History of proteus and E.coli UTI on last admission. Suprapubic catheter to be changed monthly last changed 10/04/16 Patient completed antibiotic regimen UA 09/26 with infection. Final urine culture with Proteus and Escherichia coli present. Patient has a history of both. Sensitivities and m.i.c. reviewed. ID evaluated patient on 09/29; agrees with continuing Ceftriaxone 1 g q24 hours. 10/02: I confirmed with Dr. Resendiz that he would like patient to remain on Ceftriaxone also for 3 weeks duration. Stop date 10/18/16. Repeat culture now with Kat albicans, enterococcus faecalis Bowel regimen with history of constipation. Monitor ostomy output. Negative C.diff on 09/24/16. Monitor. Whitney-Colace daily, Dulcolax as needed Neurogenic Bladder: Secondary to Paraplegia. Suprapubic catheter changed 10/04/16 Paraplegia: At baseline. Continue home medications. Trapeze setup in place Multi-Podus boots Continue PT and OT. Recommendations given to case management to obtain wheelchair for patient DVT Prophylaxis: SCD/Teds, Lovenox. Discharge Planning PT recommends rehabilitation, wheelchair with removal arms and legs. No OT recommended. CM following. Attending Statement Patient seen. Agree with above. Problem Qualifiers (1) Sacral decubitus ulcer: Qualified Code: L89.154 - Decubitus ulcer of sacral region, stage 4 (2) UTI (urinary tract infection): Mary Lee Oct 16, 2016 17:41 Sergei Slaughter MD Oct 17, 2016 07:51
[2016-10-16] MEDS: ENOXAPARIN SODIUM 40 MG/0.4 ML SYRINGE SQ SCH (17:57)
[2016-10-16 20:00] VITALS: BP 145/87; PULSE 95; RESP 20; TEMP 97.5; O2SAT 97
[2016-10-16] MEDS: DAPTOmycin INJ 600 MG in SODIUM CHLORIDE 0.9% INJ 100 ML IV SCH (21:15)
[2016-10-16] MEDS: ALPRAZolam 1 MG TAB PO PRN (21:21)
[2016-10-17] MEDS: ALPRAZolam 1 MG TAB PO PRN (03:46)
[2016-10-17] MEDS: HYDROmorphone HCL 4 MG TAB PO PRN ×3 (03:47→17:05)
[2016-10-17] MEDS: LACTIC ACID (AMMONIUM LACTATE) 12% LOTION 225 GM BTL TOPICAL SCH ×3 (03:48→22:20)
[2016-10-17] MEDS: PANTOPRAZOLE SOD 40 MG DELAYED RELEASE TAB PO SCH (07:49)
[2016-10-17] MEDS: FERROUS SULFATE 325 MG (65 MG ELEMENTAL IRON) TAB PO SCH ×2 (07:49→17:05)
[2016-10-17] MEDS: ENOXAPARIN SODIUM 40 MG/0.4 ML SYRINGE SQ SCH (07:50)
[2016-10-17] MEDS: GABAPENTIN 400 MG CAP PO SCH ×3 (07:50→17:06)
[2016-10-17] MEDS: DOCUSATE SODIUM 50 MG/SENNA 8.6 MG TAB PO SCH (07:50)
[2016-10-17] MEDS: HYDROCORTISONE 1% CREAM 30 GM TOPICAL SCH (07:51)
[2016-10-17 08:00] VITALS: BP 133/85; PULSE 90; RESP 18; TEMP 97.1; O2SAT 98
[2016-10-17] MEDS: ACETAMINOPHEN 325 MG TAB PO PRN (13:35)
[2016-10-17] MEDS: cefTRIAXone INJ 1,000 MG in SODIUM CHLORIDE 0.9% INJ 100 ML IV SCH (13:35)
--- NOTE | 2016-10-17 13:48 | HHI.PR ---
Subjective Remarks Follow-up on patient with infected decubitus ulcer and urinary tract infection. Patient seen and examined. Patient's asleep but easily arousable. Patient denies any acute issues overnight. Denies any complaints of chest pain, abdominal pain or shortness of breath. Objective Vitals Vital Signs Date Time Temp Pulse Resp B/P Pulse Ox O2 Delivery O2 Flow Rate FiO2 10/17/16 08:00 97.1 90 18 133/85 98 10/16/16 20:00 97.5 95 20 145/87 97 10/16/16 13:52 14 I/O 10/16/16 10/16/16 10/16/16 10/17/16 10/17/16 10/17/16 07:00 15:00 23:00 07:00 15:00 23:00 Intake Total 480 ml 720 ml 360 ml 120 ml Output Total 900.00 ml 850 ml 1375 ml 1425 ml Balance -420.00 ml -130 ml -1015 ml -1305 ml Intake Oral 480 ml 720 ml 360 ml 120 ml Output Urine Total 850 ml 675 ml 1425 ml Drainage Total 700 ml Blood Draw 900.00 ml # Bowel Movements 0 0 0 Objective Remarks GENERAL: Well-nourished well developed patient in no apparent distress. Lying in hospital bed. Asleep but easily arousable. CARDIOVASCULAR: Regular rate and rhythm. RESPIRATORY: No accessory muscle use. Clear to auscultation. Breath sounds equal bilaterally. GASTROINTESTINAL: Abdomen distended with colostomy bag with brown formed stool, non-tender. NEUROLOGICAL: Awake and alert. Normal speech. PSYCHIATRIC: Appropriate mood and affect; insight and judgment normal. Procedures Debridement Urinary Catheter: Yes Assessment to: Continue Peterson insert reason: Stage III/IV Press Ulcer Date of Insertion: October 04, 2016 Vascular Central Line Catheter: Yes Assessment to: Continue Date of Insertion: Oct 05, 2016 Line: PICC Procedures Debridement Medications and IVs Current Medications Medications (Trade) Dose Ordered Sig/Haja Route Start Time Stop Time Status Last Admin (Dulcolax Supp) 10 mg DAILY PRN HI 06/08/16 20:00 (Tylenol) 650 mg Q6H PRN PO 06/08/16 20:00 09/24/16 19:51 (Xanax) 1 mg Q6H PRN PO 06/08/16 20:00 10/17/16 03:46 (Ferrous Sulfate) 325 mg BIDPC PO 06/09/16 09:00 10/17/16 07:49 (Neurontin) 800 mg TID PO 06/09/16 09:00 10/17/16 07:50 (ZyPREXA) 15 mg HS PO 06/08/16 21:00 10/16/16 21:15 (Protonix) 40 mg DAILY PO 06/09/16 09:00 10/17/16 07:49 (Benadryl) 25 mg Q4H PRN PO 06/23/16 16:00 09/13/16 14:20 (Whitney-Colace) 1 tab DAILY PO 07/11/16 09:00 10/17/16 07:50 (Lac-Hydrin 12% Lotion) 1 applic BID TOPICAL 07/24/16 11:00 10/17/16 07:51 (Zofran Odt) 4 mg Q6H PRN PO 08/11/16 07:15 (Hydrocortisone 1% Cream) 1 applic DAILY TOPICAL 08/18/16 14:00 10/17/16 07:51 (Silver Nitrate Applicators) 1 appl DAILY PRN TOPICAL 08/22/16 10:45 Enoxaparin Sodium 40 mg 40 mg Q24H SQ 08/28/16 16:00 10/17/16 07:50 Ceftriaxone Sodium 1000 mg/ Sodium Chloride 100 ml @ 200 mls/hr Q24H IV 09/28/16 13:00 10/18/16 13:00 10/16/16 12:51 (Cubicin Inj/NS Inj) 100 ml @ 200 mls/hr Q24H IV 09/29/16 20:00 10/16/16 21:15 (NS Flush) See Protocol DAILY IVF 10/06/16 09:00 10/17/16 07:48 (NS Flush) See Protocol UNSCH PRN IVF 10/05/16 15:45 (Heparin Central Flush) See Protocol DAILY IVF 10/06/16 09:00 10/17/16 07:48 (Heparin Central Flush) See Protocol UNSCH PRN IVF 10/05/16 15:45 (NS Flush) See Protocol UNSCH PRN IVF 10/05/16 15:45 10/14/16 20:02 (Dilaudid) 2 mg Q6HR PRN PO 10/09/16 11:45 (Dilaudid) 4 mg Q6HR PRN PO 10/09/16 11:45 10/17/16 10:49 Date of Insertion: Oct 04, 2016 Date of Insertion: Oct 05, 2016 Line: PICC A/P Problem List: (1) Sacral decubitus ulcer ICD Code: L89.159 Status: Chronic (2) UTI (urinary tract infection) ICD Code: N39.0 Status: Acute (3) Constipation ICD Code: K59.00 Status: Resolved (4) Paraplegia ICD Code: G82.20 Status: Chronic (5) Neurogenic bladder ICD Code: N31.9 Status: Chronic Assessment and Plan Mr. Byrd is a 35-year-old male with PMH of Anxiety, Paraplegia, Neurogenic Bladder s/p Suprapubic Cath, Chronic UTI and Chronic Sacral Decubitus Ulcer who presented for evaluation of sacral wound. 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 Present at time of admission. Wound care nurse re-consulted, appreciate recommendations Wound VAC in place, wound care nurse to manage. Dressing change yesterday. Dressing change planned for tomorrow. Plastic surgery did perform excisional debridement of chronic decubitus of left trochanter, sacrum, right ischium, scrotal wound. Infectious disease consulted because of wound cultures with Proteus mirabilis, MRSA. Urine culture with Proteus mirabilis and Escherichia coli. Continue Daptomycin. Recommending three-week duration. WBC remains normal. Monitor CPK level twice weekly. Last CPK 10/14/16: 202. CPK for today pending. 10/11: s/p Veraflow wound vac application. Continue with wound VAC changes M/ W/. Pain control Continue Dilaudid 4mg by mouth every 4 hours as needed for pain. Complicated urinary tract infection: Escherichia coli UTI on 06/08 and 07/06. History of proteus and E.coli UTI on last admission. Suprapubic catheter to be changed monthly last changed 10/04/16 Patient completed antibiotic regimen UA 09/26 with infection. Final urine culture with Proteus and Escherichia coli present. Patient has a history of both. Sensitivities and m.i.c. reviewed. ID evaluated patient on 09/29; agrees with continuing Ceftriaxone 1 g q24 hours. 3/13: I confirmed with Dr. Resendiz that he would like patient to remain on Ceftriaxone also for 3 weeks duration. Stop date 10/18/16. Repeat culture now with Kat albicans, enterococcus faecalis Bowel regimen with history of constipation. Monitor ostomy output. Negative C.diff on 09/24/16. Monitor. Whitney-Colace daily, Dulcolax as needed Neurogenic Bladder: Secondary to Paraplegia. Suprapubic catheter changed 10/04/16 Paraplegia: At baseline. Continue home medications. Trapeze setup in place Multi-Podus boots Continue PT and OT. Recommendations given to case management to obtain wheelchair for patient DVT Prophylaxis: SCD/Teds, Lovenox. Discharge Planning PT recommends rehabilitation, wheelchair with removal arms and legs. No OT recommended. CM following. Attending Statement Patient seen. Agree with above. Problem Qualifiers (1) Sacral decubitus ulcer: Qualified Code: L89.154 - Decubitus ulcer of sacral region, stage 4 (2) UTI (urinary tract infection): Mary Lee Oct 17, 2016 13:48 Sergei Slaughter MD Oct 17, 2016 14:52
[2016-10-17 20:00] VITALS: BP 113/70; PULSE 83; RESP 16; TEMP 97.4; O2SAT 95
[2016-10-17] MEDS: DAPTOmycin INJ 600 MG in SODIUM CHLORIDE 0.9% INJ 100 ML IV SCH (22:20)
[2016-10-18] MEDS: ALPRAZolam 1 MG TAB PO PRN ×2 (01:50→20:50)
[2016-10-18] MEDS: HYDROmorphone HCL 4 MG TAB PO PRN ×4 (01:50→22:04)
[2016-10-18 08:00] VITALS: BP 125/75; PULSE 88; RESP 21; TEMP 97; O2SAT 99
--- NOTE | 2016-10-18 08:57 | HHI.PR ---
Subjective Remarks Patient seen and examined today. Patient resting carefully in bed. Patient denies any new complaints. Objective Vitals Vital Signs Date Time Temp Pulse Resp B/P Pulse Ox O2 Delivery O2 Flow Rate FiO2 10/17/16 20:00 97.4 83 16 113/70 95 I/O 10/17/16 10/17/16 10/17/16 10/18/16 10/18/16 10/18/16 07:00 15:00 23:00 07:00 15:00 23:00 Intake Total 770 ml 480 ml 480 ml Output Total 2350 ml 450 ml 650 ml Balance -1580 ml 30 ml -170 ml Intake Oral 770 ml 480 ml 480 ml Output Urine Total 2350 ml 450 ml 250 ml Stool Total 0 ml 0 ml Drainage Total 400 ml # Bowel Movements 0 0 Objective Remarks GENERAL: Well-developed, well-nourished, in no acute distress. alert and orientated HEENT: Head is normocephalic without any lesions or masses noted. Facial features are symmetric. Eyes: Extraocular muscles are intact. Conjunctivae were clear. NECK: Supple without any masses. Trachea midline no deviation. No JVD, CARDIAC: Regular rhythm, regular rate. S1/S2 are heard. No murmurs gallops or rubs. LUNGS: Clear to auscultation bilaterally. No wheeze, rhonchi or rales. No use of accessory muscles on inspiration or expiration. ABDOMEN: Soft, nontender. Nondistended. Bowel sounds heard in all 4 quadrants. No organomegaly or masses. Negative rebound, negative guarding. Suprapubic catheter in place without any signs of infection. Colostomy noted EXTREMITIES: No edema, pulses are equal bilaterally. No cyanosis or clubbing NEUROLOGY: Mood and affect appear appropriate. Cranial nerves II through XII grossly intact. Procedures Debridement Urinary Catheter: Yes Assessment to: Continue Peterson insert reason: Stage III/IV Press Ulcer Date of Insertion: Oct 04, 2016 Vascular Central Line Catheter: Yes Assessment to: Continue Date of Insertion: Oct 05, 2016 Line: PICC A/P Assessment and Plan Mr. Byrd is a 35-year-old male with PMH of Anxiety, Paraplegia, Neurogenic Bladder s/p Suprapubic Cath, Chronic UTI and Chronic Sacral Decubitus Ulcer who presented for evaluation of sacral wound. Stage IV Chronic Sacral, trochanter, scrotal Ulcer in a paraplegic patient, Present at time of admission. Wound care nurse re-consulted, appreciate recommendations, Wound VAC placement with Shanthi, 10/11. Wound VAC changes M/W/F Plastic surgery did perform excisional debridement of chronic decubitus of left trochanter, sacrum, right ischium, bases scrotal wound. 09/07/16 wound care orders written by plastic surgery 09/28/16: Plastic surgery discontinued wound VAC with application of Betadine moistened gauze Infectious disease consulted because of wound cultures with Proteus mirabilis, MRSA. Urine culture with Proteus mirabilis and Escherichia coli. Daptomycin to be continued for 3 week duration. Monitoring labs, CPK level twice weekly Pain control Discontinue Percocet Dilaudid 4 mg by mouth every 4 hours as needed for pain E Coli/Proteus complicated urinary tract infection: Suprapubic catheter to be changed monthly last changed 10/04/16 Patient completed antibiotic regimen Infectious disease recommending Rocephin for 3 weeks, stop 10/18/16 Repeat culture now with Kat albicans, enterococcus faecalis Fluconazole for 3 days Bowel regimen with history of constipation. Monitor ostomy output. Whitney-Colace daily, Dulcolax as needed Neurogenic Bladder: Secondary to Paraplegia. Suprapubic catheter changed 09/13/16 Paraplegia: At baseline. Continue home medications. Trapeze setup in place Multi-Podus boots PT eval, recommends SNF, case management assisting. --Consulted OT who made recommendations for wheelchair. Recommendations given to case management to obtain wheelchair for patient DVT Prophylaxis: SCD/Teds/lovenox. Discharge Planning Discharge planning per case management, Attending Statement Patient seen. Agree with above. Sergei Larose Oct 18, 2016 08:57 Sergei Slaughter MD Oct 18, 2016 16:34
[2016-10-18] MEDS: GABAPENTIN 400 MG CAP PO SCH ×3 (09:32→16:11)
[2016-10-18] MEDS: DOCUSATE SODIUM 50 MG/SENNA 8.6 MG TAB PO SCH (09:32)
[2016-10-18] MEDS: FERROUS SULFATE 325 MG (65 MG ELEMENTAL IRON) TAB PO SCH ×2 (09:32→16:11)
[2016-10-18] MEDS: PANTOPRAZOLE SOD 40 MG DELAYED RELEASE TAB PO SCH (09:34)
[2016-10-18] MEDS: LACTIC ACID (AMMONIUM LACTATE) 12% LOTION 225 GM BTL TOPICAL SCH ×2 (09:35→20:46)
[2016-10-18] MEDS: HYDROCORTISONE 1% CREAM 30 GM TOPICAL SCH (09:35)
[2016-10-18] MEDS: cefTRIAXone INJ 1,000 MG in SODIUM CHLORIDE 0.9% INJ 100 ML IV SCH (11:23)
[2016-10-18] MEDS: ENOXAPARIN SODIUM 40 MG/0.4 ML SYRINGE SQ SCH (16:13)
[2016-10-18 20:00] VITALS: BP 121/80; PULSE 91; RESP 16; TEMP 97.3; O2SAT 96
[2016-10-18] MEDS: DAPTOmycin INJ 600 MG in SODIUM CHLORIDE 0.9% INJ 100 ML IV SCH (20:46)
[2016-10-19 08:19] VITALS: BP 115/83; PULSE 93; RESP 18; TEMP 96.4; O2SAT 96
[2016-10-19] MEDS: FERROUS SULFATE 325 MG (65 MG ELEMENTAL IRON) TAB PO SCH ×2 (08:45→17:03)
[2016-10-19] MEDS: GABAPENTIN 400 MG CAP PO SCH ×3 (08:45→17:03)
[2016-10-19] MEDS: PANTOPRAZOLE SOD 40 MG DELAYED RELEASE TAB PO SCH (08:45)
[2016-10-19] MEDS: DOCUSATE SODIUM 50 MG/SENNA 8.6 MG TAB PO SCH (08:45)
[2016-10-19] MEDS: ENOXAPARIN SODIUM 40 MG/0.4 ML SYRINGE SQ SCH (08:46)
[2016-10-19] MEDS: HYDROmorphone HCL 4 MG TAB PO PRN ×3 (08:46→20:50)
[2016-10-19] MEDS: LACTIC ACID (AMMONIUM LACTATE) 12% LOTION 225 GM BTL TOPICAL SCH ×2 (08:47→19:48)
[2016-10-19] MEDS: HYDROCORTISONE 1% CREAM 30 GM TOPICAL SCH (08:47)
--- NOTE | 2016-10-19 14:45 | HHI.PR ---
Subjective Remarks Patient seen and examined today. Patient denies any new complaints. No change in clinical status. Objective Vitals Vital Signs Date Time Temp Pulse Resp B/P Pulse Ox O2 Delivery O2 Flow Rate FiO2 10/19/16 08:19 96.4 93 18 115/83 96 10/18/16 23:04 20 10/18/16 20:00 97.3 91 16 121/80 96 I/O 10/18/16 10/18/16 10/18/16 10/19/16 10/19/16 10/19/16 07:00 15:00 23:00 07:00 15:00 23:00 Intake Total 480 ml 480 ml 580 ml 100 ml Output Total 650 ml 2150 ml 900 ml Balance -170 ml -1670 ml -320 ml 100 ml Intake Oral 480 ml 480 ml 480 ml 100 ml IV Total 100 ml Output Urine Total 250 ml 2150 ml 850 ml Stool Total 0 ml 0 ml 50 ml Drainage Total 400 ml # Bowel Movements 0 Objective Remarks GENERAL: Well-developed, well-nourished, in no acute distress. alert and orientated HEENT: Head is normocephalic without any lesions or masses noted. Facial features are symmetric. Eyes: Extraocular muscles are intact. Conjunctivae were clear. NECK: Supple without any masses. Trachea midline no deviation. No JVD, CARDIAC: Regular rhythm, regular rate. S1/S2 are heard. No murmurs gallops or rubs. LUNGS: Clear to auscultation bilaterally. No wheeze, rhonchi or rales. No use of accessory muscles on inspiration or expiration. ABDOMEN: Soft, nontender. Nondistended. Bowel sounds heard in all 4 quadrants. No organomegaly or masses. Negative rebound, negative guarding. Suprapubic catheter in place without any signs of infection. Colostomy noted EXTREMITIES: No edema, pulses are equal bilaterally. No cyanosis or clubbing NEUROLOGY: Mood and affect appear appropriate. Cranial nerves II through XII grossly intact. Procedures Debridement Urinary Catheter: Yes Assessment to: Continue Peterson insert reason: Stage III/IV Press Ulcer Date of Insertion: Oct 04, 2016 Vascular Central Line Catheter: No Date of Insertion: Oct 05, 2016 Line: PICC A/P Assessment and Plan Mr. Byrd is a 35-year-old male with PMH of Anxiety, Paraplegia, Neurogenic Bladder s/p Suprapubic Cath, Chronic UTI and Chronic Sacral Decubitus Ulcer who presented for evaluation of sacral wound. Stage IV Chronic Sacral, trochanter, scrotal Ulcer in a paraplegic patient, Present at time of admission. Wound care nurse re-consulted, appreciate recommendations, Wound VAC placement with Shanthi, 10/11. Wound VAC changes M/W/F Plastic surgery did perform excisional debridement of chronic decubitus of left trochanter, sacrum, right ischium, bases scrotal wound. 09/07/16 wound care orders written by plastic surgery 09/28/16: Plastic surgery discontinued wound VAC with application of Betadine moistened gauze Infectious disease consulted because of wound cultures with Proteus mirabilis, MRSA. Urine culture with Proteus mirabilis and Escherichia coli. Daptomycin to be continued for 3 week duration. Started 09/29/16 Monitoring labs, CPK level twice weekly Pain control Discontinue Percocet Dilaudid 4 mg by mouth every 4 hours as needed for pain E Coli/Proteus complicated urinary tract infection: Patient completed antibiotic regimen Infectious disease recommending Rocephin for 3 weeks, stop 10/18/16 Repeat culture now with Kat albicans, enterococcus faecalis Fluconazole for 3 days Bowel regimen with history of constipation. Monitor ostomy output. Whitney-Colace daily, Dulcolax as needed Neurogenic Bladder: Secondary to Paraplegia. Suprapubic catheter to be changed monthly last changed 10/04/16 Paraplegia: At baseline. Continue home medications. Trapeze setup in place Multi-Podus boots PT eval, recommends SNF, case management assisting. --Consulted OT who made recommendations for wheelchair. Recommendations given to case management to obtain wheelchair for patient DVT Prophylaxis: SCD/Teds/lovenox. Discharge Planning Discharge planning per case kari, Sergei Larose Oct 19, 2016 14:45
[2016-10-19] MEDS: DAPTOmycin INJ 600 MG in SODIUM CHLORIDE 0.9% INJ 100 ML IV SCH (19:47)
[2016-10-19 20:00] VITALS: BP 140/77; PULSE 87; RESP 20; TEMP 96.7; O2SAT 96
[2016-10-19] MEDS: ALPRAZolam 1 MG TAB PO PRN (20:50)
[2016-10-20] MEDS: HYDROmorphone HCL 4 MG TAB PO PRN ×3 (06:05→20:17)
[2016-10-20 08:00] VITALS: BP 112/81; PULSE 81; RESP 18; TEMP 95.9; O2SAT 95
[2016-10-20] MEDS: FERROUS SULFATE 325 MG (65 MG ELEMENTAL IRON) TAB PO SCH ×2 (09:31→17:03)
[2016-10-20] MEDS: DOCUSATE SODIUM 50 MG/SENNA 8.6 MG TAB PO SCH (09:32)
[2016-10-20] MEDS: LACTIC ACID (AMMONIUM LACTATE) 12% LOTION 225 GM BTL TOPICAL SCH ×2 (09:32→20:17)
[2016-10-20] MEDS: GABAPENTIN 400 MG CAP PO SCH ×3 (09:32→17:03)
[2016-10-20] MEDS: PANTOPRAZOLE SOD 40 MG DELAYED RELEASE TAB PO SCH (09:32)
--- NOTE | 2016-10-20 14:00 | HHI.PR ---
Subjective Remarks Patient seen and examined today. Patient denies any new complaints. No change in clinical status. Objective Vitals Vital Signs Date Time Temp Pulse Resp B/P Pulse Ox O2 Delivery O2 Flow Rate FiO2 10/20/16 08:00 95.9 81 18 112/81 95 10/20/16 07:05 16 10/19/16 20:00 96.7 87 20 140/77 96 I/O 10/19/16 10/19/16 10/19/16 10/20/16 10/20/16 10/20/16 07:00 15:00 23:00 07:00 15:00 23:00 Intake Total 580 ml 100 ml 1980 ml 360 ml Output Total 900 ml 2100 ml 300 ml Balance -320 ml 100 ml -120 ml 60 ml Intake Oral 480 ml 100 ml 1980 ml 360 ml IV Total 100 ml Output Urine Total 850 ml 2100 ml 300 ml Stool Total 50 ml Objective Remarks GENERAL: Well-developed, well-nourished, in no acute distress. alert and orientated HEENT: Head is normocephalic without any lesions or masses noted. Facial features are symmetric. Eyes: Extraocular muscles are intact. Conjunctivae were clear. NECK: Supple without any masses. Trachea midline no deviation. No JVD, CARDIAC: Regular rhythm, regular rate. S1/S2 are heard. No murmurs gallops or rubs. LUNGS: Clear to auscultation bilaterally. No wheeze, rhonchi or rales. No use of accessory muscles on inspiration or expiration. ABDOMEN: Soft, nontender. Nondistended. Bowel sounds heard in all 4 quadrants. No organomegaly or masses. Negative rebound, negative guarding. Suprapubic catheter in place without any signs of infection. Colostomy noted EXTREMITIES: No edema, pulses are equal bilaterally. No cyanosis or clubbing NEUROLOGY: Mood and affect appear appropriate. Cranial nerves II through XII grossly intact. Procedures Debridement Urinary Catheter: Yes (suprapubic cath) Assessment to: Continue Date of Insertion: Oct 04, 2016 Vascular Central Line Catheter: No Date of Insertion: Oct 05, 2016 Line: PICC A/P Assessment and Plan Mr. Byrd is a 35-year-old male with PMH of Anxiety, Paraplegia, Neurogenic Bladder s/p Suprapubic Cath, Chronic UTI and Chronic Sacral Decubitus Ulcer who presented for evaluation of sacral wound. Stage IV Chronic Sacral, trochanter, scrotal Ulcer in a paraplegic patient, Present at time of admission. Wound care nurse re-consulted, appreciate recommendations, Wound VAC placement with Shanthi, 10/11. Wound VAC changes M/W/F Plastic surgery did perform excisional debridement of chronic decubitus of left trochanter, sacrum, right ischium, bases scrotal wound. 09/07/16 wound care orders written by plastic surgery 09/28/16: Plastic surgery discontinued wound VAC with application of Betadine moistened gauze Infectious disease consulted because of wound cultures with Proteus mirabilis, MRSA. Urine culture with Proteus mirabilis and Escherichia coli. Daptomycin to be continued for 3 week duration. Started 09/29/16 Monitoring labs, CPK level twice weekly Pain control Discontinue Percocet Dilaudid 4 mg by mouth every 4 hours as needed for pain E Coli/Proteus complicated urinary tract infection: Patient completed antibiotic regimen Infectious disease recommending Rocephin for 3 weeks, stopped 10/18/16 Repeat culture now with Kat albicans, enterococcus faecalis Fluconazole for 3 days Bowel regimen with history of constipation. Monitor ostomy output. Whitney-Colace daily, Dulcolax as needed Neurogenic Bladder: Secondary to Paraplegia. Suprapubic catheter to be changed monthly last changed 10/04/16 Paraplegia: At baseline. Continue home medications. Trapeze setup in place Multi-Podus boots PT eval, recommends SNF, case management assisting. --Consulted OT who made recommendations for wheelchair. Recommendations given to case management to obtain wheelchair for patient DVT Prophylaxis: SCD/Teds/lovenox. Discharge Planning Discharge planning per case management, Sergei Larose Oct 20, 2016 14:00
[2016-10-20] MEDS: HYDROCORTISONE 1% CREAM 30 GM TOPICAL SCH (14:32)
[2016-10-20] MEDS: ENOXAPARIN SODIUM 40 MG/0.4 ML SYRINGE SQ SCH (16:53)
[2016-10-20 20:00] VITALS: BP 120/79; PULSE 108; RESP 20; TEMP 95; O2SAT 96
[2016-10-20] MEDS: DAPTOmycin INJ 600 MG in SODIUM CHLORIDE 0.9% INJ 100 ML IV SCH (20:16)
[2016-10-20] MEDS: ALPRAZolam 1 MG TAB PO PRN (20:16)
[2016-10-21] MEDS: HYDROmorphone HCL 4 MG TAB PO PRN ×4 (03:37→22:28)
[2016-10-21 08:00] VITALS: BP 95/58; PULSE 90; RESP 20; TEMP 97.6; O2SAT 94
[2016-10-21] MEDS: FERROUS SULFATE 325 MG (65 MG ELEMENTAL IRON) TAB PO SCH ×2 (09:13→17:16)
[2016-10-21] MEDS: PANTOPRAZOLE SOD 40 MG DELAYED RELEASE TAB PO SCH (09:13)
[2016-10-21] MEDS: DOCUSATE SODIUM 50 MG/SENNA 8.6 MG TAB PO SCH (09:13)
[2016-10-21] MEDS: GABAPENTIN 400 MG CAP PO SCH ×3 (09:13→17:17)
[2016-10-21] MEDS: LACTIC ACID (AMMONIUM LACTATE) 12% LOTION 225 GM BTL TOPICAL SCH ×2 (09:14→20:20)
[2016-10-21] MEDS: HYDROCORTISONE 1% CREAM 30 GM TOPICAL SCH (09:14)
--- NOTE | 2016-10-21 11:38 | HHI.PR ---
Subjective Remarks Patient seen and examined today. Patient denies any new complaints. No change in clinical status. Objective Vitals Vital Signs Date Time Temp Pulse Resp B/P Pulse Ox O2 Delivery O2 Flow Rate FiO2 10/21/16 11:06 16 10/21/16 08:00 97.6 90 20 95/58 94 10/20/16 20:00 95.0 108 20 120/79 96 I/O 10/20/16 10/20/16 10/20/16 10/21/16 10/21/16 10/21/16 07:00 15:00 23:00 07:00 15:00 23:00 Intake Total 360 ml 750 ml 480 ml 480 ml Output Total 300 ml 400 ml 200 ml 800 ml Balance 60 ml 350 ml 280 ml -320 ml Intake Oral 360 ml 750 ml 480 ml 480 ml Output Urine Total 300 ml 400 ml 200 ml 800 ml # Bowel Movements 1 Objective Remarks GENERAL: Well-developed, well-nourished, in no acute distress. alert and orientated HEENT: Head is normocephalic without any lesions or masses noted. Facial features are symmetric. Eyes: Extraocular muscles are intact. Conjunctivae were clear. NECK: Supple without any masses. Trachea midline no deviation. No JVD, CARDIAC: Regular rhythm, regular rate. S1/S2 are heard. No murmurs gallops or rubs. LUNGS: Clear to auscultation bilaterally. No wheeze, rhonchi or rales. No use of accessory muscles on inspiration or expiration. ABDOMEN: Soft, nontender. Nondistended. Bowel sounds heard in all 4 quadrants. No organomegaly or masses. Negative rebound, negative guarding. Suprapubic catheter in place without any signs of infection. Colostomy noted EXTREMITIES: No edema, pulses are equal bilaterally. No cyanosis or clubbing NEUROLOGY: Mood and affect appear appropriate. Cranial nerves II through XII grossly intact. Procedures Debridement Urinary Catheter: Yes (suprapubic catheter) Assessment to: Continue Peterson insert reason: Prolonged Immobilization Date of Insertion: Oct 04, 2016 Vascular Central Line Catheter: No Date of Insertion: Oct 05, 2016 Line: PICC A/P Assessment and Plan Mr. Byrd is a 35-year-old male with PMH of Anxiety, Paraplegia, Neurogenic Bladder s/p Suprapubic Cath, Chronic UTI and Chronic Sacral Decubitus Ulcer who presented for evaluation of sacral wound. Stage IV Chronic Sacral, trochanter, scrotal Ulcer in a paraplegic patient, Present at time of admission. Wound care nurse re-consulted, appreciate recommendations, Wound VAC placement with Shanthi, 10/11. Wound VAC changes M/W/F Plastic surgery did perform excisional debridement of chronic decubitus of left trochanter, sacrum, right ischium, bases scrotal wound. 09/07/16 wound care orders written by plastic surgery 09/28/16: Plastic surgery discontinued wound VAC with application of Betadine moistened gauze Infectious disease consulted because of wound cultures with Proteus mirabilis, MRSA. Urine culture with Proteus mirabilis and Escherichia coli. Daptomycin to be continued for 3 week duration. Started 09/29/16 Monitoring labs, CPK level twice weekly Pain control Discontinue Percocet Dilaudid 4 mg by mouth every 4 hours as needed for pain E Coli/Proteus complicated urinary tract infection: Patient completed antibiotic regimen Infectious disease recommending Rocephin for 3 weeks, stopped 10/18/16 Repeat culture now with Kat albicans, enterococcus faecalis Fluconazole for 3 days Bowel regimen with history of constipation. Monitor ostomy output. Whitney-Colace daily, Dulcolax as needed Neurogenic Bladder: Secondary to Paraplegia. Suprapubic catheter to be changed monthly last changed 10/04/16 Paraplegia: At baseline. Continue home medications. Trapeze setup in place Multi-Podus boots PT eval, recommends SNF, case management assisting. --Consulted OT who made recommendations for wheelchair. Recommendations given to case management to obtain wheelchair for patient DVT Prophylaxis: SCD/Teds/lovenox. Discharge Planning Discharge planning per case kari, Sergei Larose Oct 21, 2016 11:38
[2016-10-21] MEDS: ENOXAPARIN SODIUM 40 MG/0.4 ML SYRINGE SQ SCH (15:32)
[2016-10-21 20:00] VITALS: BP 122/79; PULSE 86; RESP 20; TEMP 95.5; O2SAT 95
[2016-10-21] MEDS: DAPTOmycin INJ 600 MG in SODIUM CHLORIDE 0.9% INJ 100 ML IV SCH (20:20)
[2016-10-21] MEDS: ALPRAZolam 1 MG TAB PO PRN (22:27)
[2016-10-22] MEDS: HYDROmorphone HCL 4 MG TAB PO PRN ×3 (06:52→20:48)
[2016-10-22 08:00] VITALS: BP 139/80; PULSE 81; RESP 19; TEMP 98.6; O2SAT 97
[2016-10-22] MEDS: LACTIC ACID (AMMONIUM LACTATE) 12% LOTION 225 GM BTL TOPICAL SCH ×2 (09:00→20:03)
[2016-10-22] MEDS: DOCUSATE SODIUM 50 MG/SENNA 8.6 MG TAB PO SCH (09:00)
[2016-10-22] MEDS: HYDROCORTISONE 1% CREAM 30 GM TOPICAL SCH (09:00)
[2016-10-22] MEDS: FERROUS SULFATE 325 MG (65 MG ELEMENTAL IRON) TAB PO SCH ×2 (09:00→16:13)
[2016-10-22] MEDS: GABAPENTIN 400 MG CAP PO SCH ×3 (09:00→16:13)
[2016-10-22] MEDS: diphenhydrAMINE HCL 25 MG CAP PO PRN (09:00)
[2016-10-22] MEDS: PANTOPRAZOLE SOD 40 MG DELAYED RELEASE TAB PO SCH (09:00)
--- NOTE | 2016-10-22 11:45 | HHI.PR ---
Subjective Remarks Patient seen and examined today. Patient sleeping comfortably in bed. Awakens to voice. No new complaints. Afebrile. Vitals stable. Wound vac continued. Objective Vitals Vital Signs Date Time Temp Pulse Resp B/P Pulse Ox O2 Delivery O2 Flow Rate FiO2 10/22/16 08:00 98.6 81 19 139/80 97 10/22/16 07:52 20 10/21/16 20:00 95.5 86 20 122/79 95 I/O 10/21/16 10/21/16 10/21/16 10/22/16 10/22/16 10/22/16 07:00 15:00 23:00 07:00 15:00 23:00 Intake Total 480 ml 700 ml 480 ml Output Total 800 ml 900 ml 550 ml 650 ml Balance -320 ml -200 ml -70 ml -650 ml Intake Oral 480 ml 700 ml 480 ml Output Urine Total 800 ml 900 ml 550 ml 650 ml # Bowel Movements 0 1 0 Objective Remarks GENERAL: Well-developed, well-nourished, in no acute distress. alert and orientated HEENT: Head is normocephalic without any lesions or masses noted. Facial features are symmetric. Eyes: Extraocular muscles are intact. Conjunctivae were clear. NECK: Supple without any masses. Trachea midline no deviation. No JVD, CARDIAC: Regular rhythm, regular rate. S1/S2 are heard. No murmurs gallops or rubs. LUNGS: Clear to auscultation bilaterally. No wheeze, rhonchi or rales. No use of accessory muscles on inspiration or expiration. ABDOMEN: Soft, nontender. Nondistended. Bowel sounds heard in all 4 quadrants. No organomegaly or masses. Negative rebound, negative guarding. Suprapubic catheter in place without any signs of infection. Colostomy noted EXTREMITIES: No edema, pulses are equal bilaterally. No cyanosis or clubbing NEUROLOGY: Mood and affect appear appropriate. Cranial nerves II through XII grossly intact. Procedures Debridement Date of Insertion: Oct 04, 2016 Date of Insertion: Oct 05, 2016 Line: PICC A/P Assessment and Plan Mr. Byrd is a 35-year-old male with PMH of Anxiety, Paraplegia, Neurogenic Bladder s/p Suprapubic Cath, Chronic UTI and Chronic Sacral Decubitus Ulcer who presented for evaluation of sacral wound. Stage IV Chronic Sacral, trochanter, scrotal Ulcer in a paraplegic patient, Present at time of admission. Wound care nurse re-consulted, appreciate recommendations, Wound VAC placement with Shanthi, 10/11. Wound VAC changes M/W/F Plastic surgery did perform excisional debridement of chronic decubitus of left trochanter, sacrum, right ischium, bases scrotal wound. 09/07/16 wound care orders written by plastic surgery 09/28/16: Plastic surgery discontinued wound VAC with application of Betadine moistened gauze Infectious disease consulted because of wound cultures with Proteus mirabilis, MRSA. Urine culture with Proteus mirabilis and Escherichia coli. Daptomycin to be continued for 3 week duration. Started 09/29/16 Monitoring labs, CPK level twice weekly. Last CPK 10/17, 196. Pain control Discontinue Percocet Dilaudid 4 mg by mouth every 4 hours as needed for pain E Coli/Proteus complicated urinary tract infection: Patient completed antibiotic regimen Infectious disease recommending Rocephin for 3 weeks, stopped 10/18/16 Repeat culture now with Kat albicans, enterococcus faecalis Fluconazole for 3 days Bowel regimen with history of constipation. Monitor ostomy output. Whitney-Colace daily, Dulcolax as needed Neurogenic Bladder: Secondary to Paraplegia. Suprapubic catheter to be changed monthly last changed 10/04/16 Paraplegia: At baseline. Continue home medications. Trapeze setup in place Multi-Podus boots PT eval, recommends SNF, case management assisting. --Consulted OT who made recommendations for wheelchair. Recommendations given to case management to obtain wheelchair for patient DVT Prophylaxis: SCD/Teds/lovenox. Discharge Planning Discharge planning per case management. Sergei Larose Oct 22, 2016 11:45
[2016-10-22] MEDS: ALPRAZolam 1 MG TAB PO PRN ×2 (12:54→20:48)
[2016-10-22] MEDS: ENOXAPARIN SODIUM 40 MG/0.4 ML SYRINGE SQ SCH (16:13)
[2016-10-22] MEDS: DAPTOmycin INJ 600 MG in SODIUM CHLORIDE 0.9% INJ 100 ML IV SCH (19:55)
[2016-10-22 20:00] VITALS: BP 125/83; PULSE 95; RESP 18; TEMP 97.4; O2SAT 94
[2016-10-23] MEDS: HYDROmorphone HCL 4 MG TAB PO PRN ×4 (03:39→23:30)
[2016-10-23 08:00] VITALS: BP 112/75; PULSE 93; RESP 20; TEMP 97.5; O2SAT 94
--- NOTE | 2016-10-23 09:15 | HHI.PR ---
Subjective Remarks Patient seen and examined today. Patient denies any new complaints. No change in clinical status. Objective Vitals Vital Signs Date Time Temp Pulse Resp B/P Pulse Ox O2 Delivery O2 Flow Rate FiO2 10/23/16 04:30 16 10/22/16 20:00 97.4 95 18 125/83 94 I/O 10/22/16 10/22/16 10/22/16 10/23/16 10/23/16 10/23/16 07:00 15:00 23:00 07:00 15:00 23:00 Intake Total 240 ml 720 ml 480 ml Output Total 650 ml 850 ml 650 ml 550 ml Balance -650 ml -610 ml 70 ml -70 ml Intake Oral 240 ml 720 ml 480 ml Output Urine Total 650 ml 850 ml 650 ml 550 ml Stool Total 0 ml # Bowel Movements 0 0 Objective Remarks GENERAL: Well-developed, well-nourished, in no acute distress. alert and orientated HEENT: Head is normocephalic without any lesions or masses noted. Facial features are symmetric. Eyes: Extraocular muscles are intact. Conjunctivae were clear. NECK: Supple without any masses. Trachea midline no deviation. No JVD, CARDIAC: Regular rhythm, regular rate. S1/S2 are heard. No murmurs gallops or rubs. LUNGS: Clear to auscultation bilaterally. No wheeze, rhonchi or rales. No use of accessory muscles on inspiration or expiration. ABDOMEN: Soft, nontender. Nondistended. Bowel sounds heard in all 4 quadrants. No organomegaly or masses. Negative rebound, negative guarding. Suprapubic catheter in place without any signs of infection. Colostomy noted EXTREMITIES: No edema, pulses are equal bilaterally. No cyanosis or clubbing NEUROLOGY: Mood and affect appear appropriate. Cranial nerves II through XII grossly intact. Procedures Debridement Urinary Catheter: Yes (suprapubic catheter) Assessment to: Continue Date of Insertion: Oct 04, 2016 Vascular Central Line Catheter: No Date of Insertion: Oct 05, 2016 Line: PICC A/P Assessment and Plan Mr. Byrd is a 35-year-old male with PMH of Anxiety, Paraplegia, Neurogenic Bladder s/p Suprapubic Cath, Chronic UTI and Chronic Sacral Decubitus Ulcer who presented for evaluation of sacral wound. Stage IV Chronic Sacral, trochanter, scrotal Ulcer in a paraplegic patient, Present at time of admission. Wound care nurse re-consulted, appreciate recommendations, Wound VAC placement with Shanthi, 10/11. Wound VAC changes M/W/F Plastic surgery did perform excisional debridement of chronic decubitus of left trochanter, sacrum, right ischium, bases scrotal wound. 09/07/16 wound care orders written by plastic surgery 09/28/16: Plastic surgery discontinued wound VAC with application of Betadine moistened gauze Infectious disease consulted because of wound cultures with Proteus mirabilis, MRSA. Urine culture with Proteus mirabilis and Escherichia coli. Daptomycin was continued for 3 week duration for eradication. 09/29// Monitoring labs, CPK level twice weekly. Last CPK 10/17, 196. Consider repeat urinalysis if patient develops symptoms or after Peterson is changed this month 11/04/16 Pain control Dilaudid 4 mg by mouth every 4 hours as needed for pain E Coli/Proteus complicated urinary tract infection: Patient completed antibiotic regimen Infectious disease recommending Rocephin for 3 weeks, stopped 10/18/16 Repeat culture now with Kat albicans, enterococcus faecalis Fluconazole for 3 days Bowel regimen with history of constipation. Monitor ostomy output. Whitney-Colace daily, Dulcolax as needed Neurogenic Bladder: Secondary to Paraplegia. Suprapubic catheter to be changed monthly last changed 10/04/16 Paraplegia: At baseline. Continue home medications. Trapeze setup in place Multi-Podus boots PT eval, recommends SNF, case management assisting. --Consulted OT who made recommendations for wheelchair. Recommendations given to case management to obtain wheelchair for patient DVT Prophylaxis: SCD/Teds/lovenox. Discharge Planning Discharge planning per case management. Sergei Larose Oct 23, 2016 09:15
[2016-10-23] MEDS: GABAPENTIN 400 MG CAP PO SCH ×3 (09:36→17:16)
[2016-10-23] MEDS: PANTOPRAZOLE SOD 40 MG DELAYED RELEASE TAB PO SCH (09:36)
[2016-10-23] MEDS: FERROUS SULFATE 325 MG (65 MG ELEMENTAL IRON) TAB PO SCH ×2 (09:36→17:17)
[2016-10-23] MEDS: DOCUSATE SODIUM 50 MG/SENNA 8.6 MG TAB PO SCH (09:37)
[2016-10-23] MEDS: HYDROCORTISONE 1% CREAM 30 GM TOPICAL SCH (09:38)
[2016-10-23] MEDS: LACTIC ACID (AMMONIUM LACTATE) 12% LOTION 225 GM BTL TOPICAL SCH ×2 (09:38→20:25)
[2016-10-23] MEDS: ENOXAPARIN SODIUM 40 MG/0.4 ML SYRINGE SQ SCH (17:16)
[2016-10-23 20:00] VITALS: BP 142/90; PULSE 84; RESP 20; TEMP 97.3; O2SAT 96
[2016-10-23] MEDS: ALPRAZolam 1 MG TAB PO PRN (20:24)
[2016-10-24] MEDS: HYDROmorphone HCL 4 MG TAB PO PRN ×3 (05:38→20:46)
[2016-10-24 08:00] VITALS: BP 111/64; PULSE 86; RESP 20; TEMP 96.6; O2SAT 95
[2016-10-24] MEDS: DOCUSATE SODIUM 50 MG/SENNA 8.6 MG TAB PO SCH (09:00)
[2016-10-24] MEDS: GABAPENTIN 400 MG CAP PO SCH ×3 (09:04→17:30)
[2016-10-24] MEDS: PANTOPRAZOLE SOD 40 MG DELAYED RELEASE TAB PO SCH (09:04)
[2016-10-24] MEDS: FERROUS SULFATE 325 MG (65 MG ELEMENTAL IRON) TAB PO SCH ×2 (09:04→17:30)
[2016-10-24] MEDS: LACTIC ACID (AMMONIUM LACTATE) 12% LOTION 225 GM BTL TOPICAL SCH ×2 (09:08→20:47)
[2016-10-24] MEDS: HYDROCORTISONE 1% CREAM 30 GM TOPICAL SCH (09:08)
--- NOTE | 2016-10-24 12:44 | HHI.PR ---
Subjective Remarks Follow-up for decubitus ulcers, UTI. No acute complaints. Objective Vitals Vital Signs Date Time Temp Pulse Resp B/P Pulse Ox O2 Delivery O2 Flow Rate FiO2 10/24/16 08:00 96.6 86 20 111/64 95 10/24/16 07:00 18 10/23/16 20:00 97.3 84 20 142/90 96 I/O 10/23/16 10/23/16 10/23/16 10/24/16 10/24/16 10/24/16 07:00 15:00 23:00 07:00 15:00 23:00 Intake Total 480 ml 960 ml 660 ml 480 ml Output Total 550 ml 600 ml 1400 ml 800 ml Balance -70 ml 360 ml -740 ml -320 ml Intake Oral 480 ml 960 ml 660 ml 480 ml Output Urine Total 550 ml 600 ml 1400 ml 800 ml # Bowel Movements 0 0 0 Objective Remarks GENERAL: Well-nourished well developed patient in no apparent distress. CARDIOVASCULAR: Regular rate and rhythm. RESPIRATORY: No accessory muscle use. Clear to auscultation. Breath sounds equal bilaterally. GASTROINTESTINAL: Abdomen soft, non-tender. Formed stools in colostomy bag. NEUROLOGICAL: Awake and alert. Normal speech. PSYCHIATRIC: Appropriate mood and affect; insight and judgment normal. Procedures Debridement Urinary Catheter: Yes (suprapubic) Assessment to: Continue Peterson insert reason: Stage III/IV Press Ulcer Date of Insertion: Oct 04, 2016 Vascular Central Line Catheter: Yes Assessment to: Continue Date of Insertion: Oct 05, 2016 Line: PICC Side: Right A/P Problem List: (1) Sacral decubitus ulcer ICD Code: L89.159 Status: Chronic (2) UTI (urinary tract infection) ICD Code: N39.0 Status: Resolved (3) Constipation ICD Code: K59.00 Status: Resolved (4) Paraplegia ICD Code: G82.20 Status: Chronic (5) Neurogenic bladder ICD Code: N31.9 Status: Chronic Assessment and Plan Mr. Byrd is a 35-year-old male with PMH of Anxiety, Paraplegia, Neurogenic Bladder s/p Suprapubic Cath, Chronic UTI and Chronic Sacral Decubitus Ulcer who presented for evaluation of sacral wound. Stage IV Chronic Sacral, trochanter, scrotal Ulcer in a paraplegic patient, Present at time of admission. Wound care nurse re-consulted, appreciate recommendations, Wound VAC placement with Shanthi, 10/11. Wound VAC changes M/W/F Plastic surgery did perform excisional debridement of chronic decubitus of left trochanter, sacrum, right ischium, bases scrotal wound. 09/07/16 wound care orders written by plastic surgery 09/28/16: Plastic surgery discontinued wound VAC with application of Betadine moistened gauze Infectious disease consulted because of wound cultures with Proteus mirabilis, MRSA. Urine culture with Proteus mirabilis and Escherichia coli. Daptomycin was continued for 3 week duration for eradication. Monitoring labs, CPK level twice weekly. Last CPK . Consider repeat urinalysis if patient develops symptoms or after Peterson is changed this month 11/04/16 Pain control Dilaudid 4 mg by mouth every 4 hours as needed for pain E Coli/Proteus complicated urinary tract infection: Infectious disease recommended Rocephin for 3 weeks, completed 10/18/16 Repeat culture with Kat albicans, enterococcus faecalis. S/p Fluconazole for 3 days. Bowel regimen with history of constipation. Monitor ostomy output. Whitney-Colace daily, Dulcolax as needed Neurogenic Bladder: Secondary to Paraplegia. Suprapubic catheter to be changed monthly last changed 10/04/16 Paraplegia: At baseline. Continue home medications. Trapeze setup in place Multi-Podus boots PT eval, recommends SNF, case management assisting. Consulted OT who made recommendations for wheelchair. Recommendations given to case management to obtain wheelchair for patient DVT Prophylaxis: SCD/Teds/lovenox. Discharge Planning PT recommends rehabilitation, wheelchair with removal arms and legs. No OT recommended. CM following. Problem Qualifiers (1) Sacral decubitus ulcer: Qualified Code: L89.154 - Decubitus ulcer of sacral region, stage 4 (2) UTI (urinary tract infection): Lani Jensen Oct 24, 2016 12:44 Lani Jensen Oct 24, 2016 12:44
[2016-10-24] MEDS: ENOXAPARIN SODIUM 40 MG/0.4 ML SYRINGE SQ SCH (15:38)
[2016-10-24 20:00] VITALS: BP 134/78; PULSE 81; RESP 20; TEMP 96.3; O2SAT 95
[2016-10-24] MEDS: ALPRAZolam 1 MG TAB PO PRN (20:46)
[2016-10-24] MEDS: diphenhydrAMINE HCL 25 MG CAP PO PRN (20:46)
[2016-10-25 07:15] VITALS: BP 115/82; PULSE 80; RESP 18; TEMP 97; O2SAT 96
[2016-10-25] MEDS: DOCUSATE SODIUM 50 MG/SENNA 8.6 MG TAB PO SCH (08:03)
[2016-10-25] MEDS: GABAPENTIN 400 MG CAP PO SCH ×3 (08:03→17:49)
[2016-10-25] MEDS: FERROUS SULFATE 325 MG (65 MG ELEMENTAL IRON) TAB PO SCH ×2 (08:04→17:49)
[2016-10-25] MEDS: HYDROmorphone HCL 4 MG TAB PO PRN ×3 (08:04→22:10)
[2016-10-25] MEDS: PANTOPRAZOLE SOD 40 MG DELAYED RELEASE TAB PO SCH (08:04)
[2016-10-25] MEDS: diphenhydrAMINE HCL 25 MG CAP PO PRN ×2 (08:05→22:11)
[2016-10-25] MEDS: HYDROCORTISONE 1% CREAM 30 GM TOPICAL SCH (08:06)
[2016-10-25] MEDS: LACTIC ACID (AMMONIUM LACTATE) 12% LOTION 225 GM BTL TOPICAL SCH ×2 (08:06→22:12)
--- NOTE | 2016-10-25 11:37 | HHI.PR ---
Subjective Remarks Follow-up for decubitus ulcers. Patient has no complaints. Nurse informs me that there is an issue with the patient's wound VAC and it has been leaking fluid. She tried to reapply the VAC but it is not working and she has tried to call grocery clerk marking without success. She requests that I reconsult them as she needs specific instructions for management. Objective Vitals Vital Signs Date Time Temp Pulse Resp B/P Pulse Ox O2 Delivery O2 Flow Rate FiO2 10/25/16 09:06 18 10/24/16 20:00 96.3 81 20 134/78 95 I/O 10/24/16 10/24/16 10/24/16 10/25/16 10/25/16 10/25/16 07:00 15:00 23:00 07:00 15:00 23:00 Intake Total 480 ml 870 ml 930 ml 480 ml Output Total 800 ml 1400 ml 1550 ml 600 ml Balance -320 ml -530 ml -620 ml -120 ml Intake Oral 480 ml 870 ml 930 ml 480 ml Output Urine Total 800 ml 1400 ml 1350 ml 600 ml Stool Total 200 ml # Bowel Movements 0 Objective Remarks GENERAL: Well-nourished well developed patient in no apparent distress. SKIN: Face appears with some perspiration. CARDIOVASCULAR: Regular rate and rhythm. RESPIRATORY: No accessory muscle use. Clear to auscultation. Breath sounds equal bilaterally. GASTROINTESTINAL: Abdomen soft, non-tender. Colostomy bag. NEUROLOGICAL: Awake and alert. Normal speech. PSYCHIATRIC: Appropriate mood and affect; insight and judgment normal. Procedures Debridement Urinary Catheter: Yes Assessment to: Continue Peterson insert reason: Stage III/IV Press Ulcer Date of Insertion: Oct 04, 2016 Date of Insertion: Oct 05, 2016 Line: PICC Side: Right A/P Problem List: (1) Sacral decubitus ulcer ICD Code: L89.159 Status: Chronic (2) UTI (urinary tract infection) ICD Code: N39.0 Status: Resolved (3) Constipation ICD Code: K59.00 Status: Resolved (4) Paraplegia ICD Code: G82.20 Status: Chronic (5) Neurogenic bladder ICD Code: N31.9 Status: Chronic Assessment and Plan Mr. Byrd is a 35-year-old male with PMH of Anxiety, Paraplegia, Neurogenic Bladder s/p Suprapubic Cath, Chronic UTI and Chronic Sacral Decubitus Ulcer who presented for evaluation of sacral wound. 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 Wound care nurse re-consulted, appreciate recommendations, Wound VAC placement with Shanthi, 10/11. Wound VAC changes M/W/F Plastic surgery did perform excisional debridement of chronic decubitus of left trochanter, sacrum, right ischium, bases scrotal wound. 09/07/16 wound care orders written by plastic surgery 09/28/16: Plastic surgery discontinued wound VAC with application of Betadine moistened gauze Infectious disease consulted because of wound cultures with Proteus mirabilis, MRSA. Urine culture with Proteus mirabilis and Escherichia coli. Daptomycin was continued for 3 week duration for eradication, 09/29//10/06. Monitoring labs, CPK level twice weekly. Last CPK 10/17, 196. I was later informed by RN that the VAC rep was in house and the vac has been fixed; apparently fluid flow rate was too high. Pain control Dilaudid 4 mg by mouth every 4 hours as needed for pain E Coli/Proteus complicated urinary tract infection: Infectious disease recommended Rocephin for 3 weeks, completed 10/18/16 Repeat culture with Kat albicans, enterococcus faecalis. S/p Fluconazole for 3 days. Consider repeat urinalysis if patient develops symptoms or after Peterson is changed this month 11/04/16. Leave PICC in for now, but will need to discontinue if no further antibiotics are required. Bowel regimen with history of constipation. Monitor ostomy output. Whitney-Colace daily, Dulcolax as needed Neurogenic Bladder: Secondary to Paraplegia. Suprapubic catheter to be changed monthly last changed 10/04/16 Paraplegia: At baseline. Continue home medications. Trapeze setup in place Multi-Podus boots PT eval, recommends SNF, case management assisting. Consulted OT who made recommendations for wheelchair. Recommendations given to case management to obtain wheelchair for patient DVT Prophylaxis: SCD/Teds/lovenox. Discharge Planning PT recommends rehabilitation, wheelchair with removal arms and legs. No OT recommended. CM following. Problem Qualifiers (1) Sacral decubitus ulcer: Qualified Code: L89.154 - Decubitus ulcer of sacral region, stage 4 (2) UTI (urinary tract infection): Lani Jensen Oct 25, 2016 11:37
[2016-10-25] MEDS: ENOXAPARIN SODIUM 40 MG/0.4 ML SYRINGE SQ SCH (14:27)
[2016-10-25 20:00] VITALS: BP 134/78; PULSE 89; RESP 20; TEMP 95.9; O2SAT 96
[2016-10-25] MEDS: ALPRAZolam 1 MG TAB PO PRN (22:10)
[2016-10-26] MEDS: HYDROmorphone HCL 4 MG TAB PO PRN ×2 (05:11→11:38)
[2016-10-26 08:00] VITALS: BP 105/75; PULSE 74; RESP 18; TEMP 97.9; O2SAT 95
[2016-10-26] MEDS: PANTOPRAZOLE SOD 40 MG DELAYED RELEASE TAB PO SCH (08:58)
[2016-10-26] MEDS: GABAPENTIN 400 MG CAP PO SCH ×3 (08:58→16:29)
[2016-10-26] MEDS: FERROUS SULFATE 325 MG (65 MG ELEMENTAL IRON) TAB PO SCH ×2 (08:58→16:29)
[2016-10-26] MEDS: DOCUSATE SODIUM 50 MG/SENNA 8.6 MG TAB PO SCH (09:00)
[2016-10-26] MEDS: HYDROCORTISONE 1% CREAM 30 GM TOPICAL SCH (09:00)
[2016-10-26] MEDS: LACTIC ACID (AMMONIUM LACTATE) 12% LOTION 225 GM BTL TOPICAL SCH ×2 (09:00→20:48)
--- NOTE | 2016-10-26 09:39 | HHI.PR ---
Subjective Remarks Follow-up for infected decubitus ulcers. Patient is no longer on antibiotics but is refusing PICC line removal in case he needs blood drawn. No acute complaints. Objective Vitals Vital Signs Date Time Temp Pulse Resp B/P Pulse Ox O2 Delivery O2 Flow Rate FiO2 10/26/16 08:00 97.9 74 18 105/75 95 10/25/16 20:00 95.9 89 20 134/78 96 10/25/16 16:01 18 I/O 10/25/16 10/25/16 10/25/16 10/26/16 10/26/16 10/26/16 07:00 15:00 23:00 07:00 15:00 23:00 Intake Total 480 ml 0 ml 480 ml 100 ml Output Total 600 ml 1300 ml 400 ml Balance -120 ml -1300 ml 80 ml 100 ml Intake Oral 480 ml 480 ml 100 ml IV Total 0 ml 0 ml Output Urine Total 600 ml 1300 ml 400 ml Objective Remarks GENERAL: Well-nourished well developed patient in no apparent distress. CARDIOVASCULAR: Regular rate and rhythm. RESPIRATORY: No accessory muscle use. Clear to auscultation. Breath sounds equal bilaterally. GASTROINTESTINAL: Abdomen soft, non-tender. Colostomy bag. NEUROLOGICAL: Awake and alert. Normal speech. PSYCHIATRIC: Appropriate mood and affect; insight and judgment normal. Procedures Debridement Urinary Catheter: Yes Assessment to: Continue Peterson insert reason: Stage III/IV Press Ulcer Date of Insertion: Oct 04, 2016 Vascular Central Line Catheter: Yes Date of Insertion: Oct 05, 2016 Line: PICC Side: Right A/P Problem List: (1) Sacral decubitus ulcer ICD Code: L89.159 Status: Chronic (2) UTI (urinary tract infection) ICD Code: N39.0 Status: Resolved (3) Constipation ICD Code: K59.00 Status: Resolved (4) Paraplegia ICD Code: G82.20 Status: Chronic (5) Neurogenic bladder ICD Code: N31.9 Status: Chronic Assessment and Plan Mr. Byrd is a 35-year-old male with PMH of Anxiety, Paraplegia, Neurogenic Bladder s/p Suprapubic Cath, Chronic UTI and Chronic Sacral Decubitus Ulcer who presented for evaluation of sacral wound. 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 Plastic surgery did perform excisional debridement of chronic decubitus of left trochanter, sacrum, right ischium, bases scrotal wound. Infectious disease consulted because of wound cultures with Proteus mirabilis, MRSA. Urine culture with Proteus mirabilis and Escherichia coli. Daptomycin was continued for 3 week duration for eradication, /10/06. Monitoring labs, CPK level twice weekly. Last CPK 10/17, 196. Wound VAC placement with Veraflow, 10/11. Continue. Pain control Dilaudid 4 mg by mouth every 4 hours as needed for pain E Coli/Proteus complicated urinary tract infection: Infectious disease recommended Rocephin for 3 weeks, completed 10/18/16 Repeat culture with Kat albicans, enterococcus faecalis. S/p Fluconazole for 3 days. Consider repeat urinalysis if patient develops symptoms or after Peterson is changed this month 11/04/16. Bowel regimen with history of constipation. Monitor ostomy output. Whitney-Colace daily, Dulcolax as needed Neurogenic Bladder: Secondary to Paraplegia. Suprapubic catheter to be changed monthly last changed 10/04/16 Paraplegia: At baseline. Continue home medications. Trapeze setup in place Multi-Podus boots PT eval, recommends SNF, case management assisting. Consulted OT who made recommendations for wheelchair. Recommendations given to case management to obtain wheelchair for patient DVT Prophylaxis: SCD/Teds/lovenox. Patient refuses PICC removal in case he needs blood drawn. He is made aware of the risk of infection if line is left in. He understands. Discharge Planning PT recommends rehabilitation, wheelchair with removal arms and legs. No OT recommended. CM following. Problem Qualifiers (1) Sacral decubitus ulcer: Qualified Code: L89.154 - Decubitus ulcer of sacral region, stage 4 (2) UTI (urinary tract infection): Lani Jensen Oct 26, 2016 09:39
[2016-10-26] MEDS: ENOXAPARIN SODIUM 40 MG/0.4 ML SYRINGE SQ SCH (11:38)
[2016-10-26 20:00] VITALS: BP 130/84; PULSE 80; RESP 18; TEMP 95.7; O2SAT 99
[2016-10-27] MEDS: HYDROmorphone HCL 4 MG TAB PO PRN ×4 (00:01→23:38)
[2016-10-27] MEDS: ALPRAZolam 1 MG TAB PO PRN ×2 (00:02→20:59)
[2016-10-27] MEDS: diphenhydrAMINE HCL 25 MG CAP PO PRN ×3 (00:02→20:59)
[2016-10-27 08:00] VITALS: BP 113/72; PULSE 88; RESP 19; TEMP 95.7; O2SAT 95
[2016-10-27] MEDS: GABAPENTIN 400 MG CAP PO SCH ×3 (09:52→17:33)
[2016-10-27] MEDS: PANTOPRAZOLE SOD 40 MG DELAYED RELEASE TAB PO SCH (09:52)
[2016-10-27] MEDS: DOCUSATE SODIUM 50 MG/SENNA 8.6 MG TAB PO SCH (09:52)
[2016-10-27] MEDS: FERROUS SULFATE 325 MG (65 MG ELEMENTAL IRON) TAB PO SCH ×2 (09:52→17:32)
[2016-10-27] MEDS: LACTIC ACID (AMMONIUM LACTATE) 12% LOTION 225 GM BTL TOPICAL SCH ×2 (09:54→21:01)
[2016-10-27] MEDS: HYDROCORTISONE 1% CREAM 30 GM TOPICAL SCH (09:54)
--- NOTE | 2016-10-27 10:42 | HHI.PR ---
Subjective Remarks Follow up for infected decubitus ulcers. No acute complaints. Objective Vitals Vital Signs Date Time Temp Pulse Resp B/P Pulse Ox O2 Delivery O2 Flow Rate FiO2 10/27/16 08:00 95.7 88 19 113/72 95 10/26/16 20:00 95.7 80 18 130/84 99 I/O 10/26/16 10/26/16 10/26/16 10/27/16 10/27/16 10/27/16 07:00 15:00 23:00 07:00 15:00 23:00 Intake Total 480 ml 580 ml 240 ml 240 ml Output Total 400 ml 700 ml 200 ml 575 ml Balance 80 ml -120 ml 40 ml -335 ml Intake Oral 480 ml 580 ml 240 ml 240 ml IV Total 0 ml Output Urine Total 400 ml 700 ml 200 ml 575 ml Stool Total 0 ml 0 ml # Bowel Movements 0 0 Objective Remarks GENERAL: Well-nourished well developed patient in no apparent distress. CARDIOVASCULAR: Regular rate and rhythm. RESPIRATORY: No accessory muscle use. Clear to auscultation. Breath sounds equal bilaterally. GASTROINTESTINAL: Abdomen soft, non-tender, non-distended. Colostomy bag. NEUROLOGICAL: Awake and alert. Normal speech. PSYCHIATRIC: Appropriate mood and affect; insight and judgment normal. Procedures Debridement Urinary Catheter: Yes Assessment to: Continue Peterson insert reason: Stage III/IV Press Ulcer Date of Insertion: Oct 04, 2016 Vascular Central Line Catheter: Yes Date of Insertion: Oct 05, 2016 Line: PICC Side: Right Reason for Continuation patient refuses removal A/P Problem List: (1) Sacral decubitus ulcer ICD Code: L89.159 Status: Chronic (2) UTI (urinary tract infection) ICD Code: N39.0 Status: Resolved (3) Constipation ICD Code: K59.00 Status: Resolved (4) Paraplegia ICD Code: G82.20 Status: Chronic (5) Neurogenic bladder ICD Code: N31.9 Status: Chronic Assessment and Plan Mr. Byrd is a 35-year-old male with PMH of Anxiety, Paraplegia, Neurogenic Bladder s/p Suprapubic Cath, Chronic UTI and Chronic Sacral Decubitus Ulcer who presented for evaluation of sacral wound. 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 Plastic surgery did perform excisional debridement of chronic decubitus of left trochanter, sacrum, right ischium, bases scrotal wound. Infectious disease consulted because of wound cultures with Proteus mirabilis, MRSA. Urine culture with Proteus mirabilis and Escherichia coli. Daptomycin was continued for 3 week duration for eradication, 09/29//10/06. CPK monitored while on antibiotics. Last CPK 10/17, 196. Wound VAC placement with Veraflow, 10/11. Continue. Pain control Dilaudid 4 mg by mouth every 4 hours as needed for pain E Coli/Proteus complicated urinary tract infection: Infectious disease recommended Rocephin for 3 weeks, completed 10/18/16 Repeat culture with Kat albicans, enterococcus faecalis. S/p Fluconazole for 3 days. Consider repeat urinalysis if patient develops symptoms or after Peterson is changed this month 11/04/16. Bowel regimen with history of constipation. Monitor ostomy output. Whitney-Colace daily, Dulcolax as needed Neurogenic Bladder: Secondary to Paraplegia. Suprapubic catheter to be changed monthly last changed 10/04/16 Paraplegia: At baseline. Continue home medications. Trapeze setup in place Multi-Podus boots PT eval, recommends SNF, case management assisting. Consulted OT who made recommendations for wheelchair. Recommendations given to case management to obtain wheelchair for patient DVT Prophylaxis: SCD/Teds/lovenox. Patient refuses PICC removal in case he needs blood drawn. He is made aware of the risk of infection if line is left in. He understands. Discharge Planning PT recommends rehabilitation, wheelchair with removal arms and legs. No OT recommended. CM following. Problem Qualifiers (1) Sacral decubitus ulcer: Qualified Code: L89.154 - Decubitus ulcer of sacral region, stage 4 (2) UTI (urinary tract infection): Lani Jensen Oct 27, 2016 10:42
[2016-10-27] MEDS: ENOXAPARIN SODIUM 40 MG/0.4 ML SYRINGE SQ SCH (17:32)
[2016-10-27 20:00] VITALS: BP 148/73; PULSE 97; RESP 20; TEMP 96.5; O2SAT 97
[2016-10-28 08:00] VITALS: BP 118/77; PULSE 83; RESP 16; TEMP 97; O2SAT 96
[2016-10-28] MEDS: DOCUSATE SODIUM 50 MG/SENNA 8.6 MG TAB PO SCH (09:00)
[2016-10-28] MEDS: GABAPENTIN 400 MG CAP PO SCH ×3 (09:54→18:18)
[2016-10-28] MEDS: FERROUS SULFATE 325 MG (65 MG ELEMENTAL IRON) TAB PO SCH ×2 (09:54→18:18)
[2016-10-28] MEDS: HYDROmorphone HCL 4 MG TAB PO PRN ×3 (09:55→22:27)
[2016-10-28] MEDS: PANTOPRAZOLE SOD 40 MG DELAYED RELEASE TAB PO SCH (09:55)
[2016-10-28] MEDS: HYDROCORTISONE 1% CREAM 30 GM TOPICAL SCH (09:56)
[2016-10-28] MEDS: LACTIC ACID (AMMONIUM LACTATE) 12% LOTION 225 GM BTL TOPICAL SCH ×2 (09:56→20:38)
--- NOTE | 2016-10-28 12:20 | HHI.PR ---
Subjective Remarks Follow-up for infected decubitus ulcer. Patient has no acute complaints. Objective Vitals Vital Signs Date Time Temp Pulse Resp B/P Pulse Ox O2 Delivery O2 Flow Rate FiO2 10/28/16 10:55 18 10/28/16 08:00 97.0 83 16 118/77 96 10/27/16 20:00 96.5 97 20 148/73 97 I/O 10/27/16 10/27/16 10/27/16 10/28/16 10/28/16 10/28/16 07:00 15:00 23:00 07:00 15:00 23:00 Intake Total 240 ml 120 ml 480 ml 480 ml Output Total 575 ml 550 ml 650 ml 650 ml Balance -335 ml -430 ml -170 ml -170 ml Intake Oral 240 ml 120 ml 480 ml 480 ml Output Urine Total 575 ml 550 ml 650 ml 650 ml Stool Total 0 ml 0 ml # Bowel Movements 0 0 Objective Remarks GENERAL: Well-nourished well developed patient in no apparent distress. CARDIOVASCULAR: Regular rate and rhythm. RESPIRATORY: No accessory muscle use. Clear to auscultation. Breath sounds equal bilaterally. GASTROINTESTINAL: Abdomen distended, but non-tender. Colostomy present. NEUROLOGICAL: Awake and alert. Normal speech. PSYCHIATRIC: Appropriate mood and affect; insight and judgment normal. Procedures Debridement Urinary Catheter: Yes Assessment to: Continue Peterson insert reason: Stage III/IV Press Ulcer Date of Insertion: Oct 04, 2016 Vascular Central Line Catheter: Yes Date of Insertion: Oct 05, 2016 Line: PICC Side: Right Reason for Continuation Patient refuses removal A/P Problem List: (1) Sacral decubitus ulcer ICD Code: L89.159 Status: Chronic (2) UTI (urinary tract infection) ICD Code: N39.0 Status: Resolved (3) Constipation ICD Code: K59.00 Status: Resolved (4) Paraplegia ICD Code: G82.20 Status: Chronic (5) Neurogenic bladder ICD Code: N31.9 Status: Chronic Assessment and Plan Mr. Byrd is a 35-year-old male with PMH of Anxiety, Paraplegia, Neurogenic Bladder s/p Suprapubic Cath, Chronic UTI and Chronic Sacral Decubitus Ulcer who presented for evaluation of sacral wound. 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 Plastic surgery did perform excisional debridement of chronic decubitus of left trochanter, sacrum, right ischium, bases scrotal wound. Infectious disease consulted because of wound cultures with Proteus mirabilis, MRSA. Urine culture with Proteus mirabilis and Escherichia coli. Daptomycin was continued for 3 week duration for eradication, /10/06. CPK monitored while on antibiotics. Last CPK 10/17, 196. Wound VAC placement with Veraflow, 10/11. Continue. Pain control Dilaudid 4 mg by mouth every 4 hours as needed for pain E Coli/Proteus complicated urinary tract infection: Infectious disease recommended Rocephin for 3 weeks, completed 10/18/16 Repeat culture with Kat albicans, enterococcus faecalis. S/p Fluconazole for 3 days. Consider repeat urinalysis if patient develops symptoms or after Peterson is changed this month 11/04/16. Bowel regimen with history of constipation. Monitor ostomy output. Whitney-Colace daily, Dulcolax as needed Neurogenic Bladder: Secondary to Paraplegia. Suprapubic catheter to be changed monthly last changed 10/04/16 Paraplegia: At baseline. Continue home medications. Trapeze setup in place Multi-Podus boots PT eval, recommends SNF, case management assisting. Consulted OT who made recommendations for wheelchair. Recommendations given to case management to obtain wheelchair for patient DVT Prophylaxis: SCD/Teds/lovenox. Patient refuses PICC removal in case he needs blood drawn. He is made aware of the risk of infection if line is left in. He understands. Discharge Planning PT recommends rehabilitation, wheelchair with removal arms and legs. No OT recommended. I informed wknd MANOJ that patient has no case management notes for over 1 month. She will leave message for Feng Howard CM in regards to this. Problem Qualifiers (1) Sacral decubitus ulcer: Qualified Code: L89.154 - Decubitus ulcer of sacral region, stage 4 (2) UTI (urinary tract infection): Lani Jensen Oct 28, 2016 12:20
[2016-10-28] MEDS: ENOXAPARIN SODIUM 40 MG/0.4 ML SYRINGE SQ SCH (16:18)
[2016-10-28 20:00] VITALS: BP 129/81; PULSE 82; RESP 20; TEMP 97.1; O2SAT 98
[2016-10-28] MEDS: diphenhydrAMINE HCL 25 MG CAP PO PRN (20:38)
[2016-10-28] MEDS: ALPRAZolam 1 MG TAB PO PRN (20:38)
[2016-10-29 08:00] VITALS: BP 131/89; PULSE 79; RESP 20; TEMP 97.8; O2SAT 94
[2016-10-29] MEDS: GABAPENTIN 400 MG CAP PO SCH ×3 (09:21→18:09)
[2016-10-29] MEDS: FERROUS SULFATE 325 MG (65 MG ELEMENTAL IRON) TAB PO SCH ×2 (09:21→18:09)
[2016-10-29] MEDS: DOCUSATE SODIUM 50 MG/SENNA 8.6 MG TAB PO SCH (09:21)
[2016-10-29] MEDS: PANTOPRAZOLE SOD 40 MG DELAYED RELEASE TAB PO SCH (09:21)
[2016-10-29] MEDS: HYDROmorphone HCL 4 MG TAB PO PRN ×3 (09:21→22:04)
[2016-10-29] MEDS: HYDROCORTISONE 1% CREAM 30 GM TOPICAL SCH (09:23)
[2016-10-29] MEDS: LACTIC ACID (AMMONIUM LACTATE) 12% LOTION 225 GM BTL TOPICAL SCH ×2 (09:23→20:48)
--- NOTE | 2016-10-29 10:04 | HHI.PR ---
Subjective Remarks Follow for infected decubitus ulcers. Patient has no acute complaints. Objective Vitals Vital Signs Date Time Temp Pulse Resp B/P Pulse Ox O2 Delivery O2 Flow Rate FiO2 10/29/16 08:00 97.8 79 20 131/89 94 10/28/16 20:00 97.1 82 20 129/81 98 10/28/16 17:19 18 I/O 10/28/16 10/28/16 10/28/16 10/29/16 10/29/16 10/29/16 07:00 15:00 23:00 07:00 15:00 23:00 Intake Total 480 ml 800 ml 480 ml 360 ml Output Total 650 ml 1100 ml 2200 ml 300 ml Balance -170 ml -300 ml -1720 ml 60 ml Intake Oral 480 ml 800 ml 480 ml 360 ml Output Urine Total 650 ml 1100 ml 1700 ml 300 ml Stool Total 0 ml Drainage Total 500 ml # Bowel Movements 1 Objective Remarks GENERAL: Well-nourished well developed patient in no apparent distress. CARDIOVASCULAR: Regular rate and rhythm. RESPIRATORY: No accessory muscle use. Clear to auscultation. Breath sounds equal bilaterally. GASTROINTESTINAL: Abdomen distended, but non-tender. Colostomy present. NEUROLOGICAL: Awake and alert. Normal speech. PSYCHIATRIC: Appropriate mood and affect. Procedures Debridement Urinary Catheter: Yes Assessment to: Continue Peterson insert reason: Stage III/IV Press Ulcer Date of Insertion: Oct 04, 2016 Vascular Central Line Catheter: Yes Date of Insertion: Oct 05, 2016 Line: PICC Side: Right Reason for Continuation Patient refuses removal A/P Problem List: (1) Sacral decubitus ulcer ICD Code: L89.159 Status: Chronic (2) UTI (urinary tract infection) ICD Code: N39.0 Status: Resolved (3) Constipation ICD Code: K59.00 Status: Resolved (4) Paraplegia ICD Code: G82.20 Status: Chronic (5) Neurogenic bladder ICD Code: N31.9 Status: Chronic Assessment and Plan Mr. Byrd is a 35-year-old male with PMH of Anxiety, Paraplegia, Neurogenic Bladder s/p Suprapubic Cath, Chronic UTI and Chronic Sacral Decubitus Ulcer who presented for evaluation of sacral wound. 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 Plastic surgery did perform excisional debridement of chronic decubitus of left trochanter, sacrum, right ischium, bases scrotal wound. Infectious disease consulted because of wound cultures with Proteus mirabilis, MRSA. Urine culture with Proteus mirabilis and Escherichia coli. Daptomycin was continued for 3 week duration for eradication, 09/29//10/06. CPK monitored while on antibiotics. Last CPK 10/17, 196. Wound VAC placement with Veraflow, 10/11. Continue. Pain control Dilaudid 4 mg by mouth every 4 hours as needed for pain E Coli/Proteus complicated urinary tract infection: Infectious disease recommended Rocephin for 3 weeks, completed 10/18/16 Repeat culture with Kat albicans, enterococcus faecalis. S/p Fluconazole for 3 days. Consider repeat urinalysis if patient develops symptoms or after Peterson is changed this month 11/04/16. Bowel regimen with history of constipation. Monitor ostomy output. Whitney-Colace daily, Dulcolax as needed Neurogenic Bladder: Secondary to Paraplegia. Suprapubic catheter to be changed monthly last changed 10/04/16 Paraplegia: At baseline. Continue home medications. Trapeze setup in place Multi-Podus boots PT eval, recommends SNF, case management assisting. Consulted OT who made recommendations for wheelchair. Recommendations given to case management to obtain wheelchair for patient DVT Prophylaxis: SCD/Teds/lovenox. Patient refuses PICC removal in case he needs blood drawn. He is made aware of the risk of infection if line is left in. He understands. Discharge Planning PT recommends rehabilitation, wheelchair with removal arms and legs. No OT recommended. 10/28: I informed wkministerio ARANDA that patient has no case management notes for over 1 month. She will leave message for Feng Howard CM in regards to this. Problem Qualifiers (1) Sacral decubitus ulcer: Qualified Code: L89.154 - Decubitus ulcer of sacral region, stage 4 (2) UTI (urinary tract infection): Lani Jensen Oct 29, 2016 10:04
[2016-10-29] MEDS: ENOXAPARIN SODIUM 40 MG/0.4 ML SYRINGE SQ SCH (16:16)
[2016-10-29 20:00] VITALS: BP 123/84; PULSE 86; RESP 21; TEMP 97.6; O2SAT 97
[2016-10-29] MEDS: ALPRAZolam 1 MG TAB PO PRN (22:04)
[2016-10-29] MEDS: diphenhydrAMINE HCL 25 MG CAP PO PRN (22:04)
[2016-10-30 08:00] VITALS: BP 128/81; PULSE 72; RESP 17; TEMP 98; O2SAT 99
[2016-10-30] MEDS: GABAPENTIN 400 MG CAP PO SCH ×3 (09:58→16:25)
[2016-10-30] MEDS: LACTIC ACID (AMMONIUM LACTATE) 12% LOTION 225 GM BTL TOPICAL SCH ×2 (09:58→22:39)
[2016-10-30] MEDS: FERROUS SULFATE 325 MG (65 MG ELEMENTAL IRON) TAB PO SCH ×2 (09:58→16:25)
[2016-10-30] MEDS: PANTOPRAZOLE SOD 40 MG DELAYED RELEASE TAB PO SCH (09:58)
[2016-10-30] MEDS: DOCUSATE SODIUM 50 MG/SENNA 8.6 MG TAB PO SCH (09:58)
[2016-10-30] MEDS: HYDROmorphone HCL 4 MG TAB PO PRN ×3 (09:59→22:43)
[2016-10-30] MEDS: HYDROCORTISONE 1% CREAM 30 GM TOPICAL SCH (09:59)
--- NOTE | 2016-10-30 15:00 | HHI.PR ---
Subjective Remarks Patient seen and examined today. Patient is only concerned is that we contact his pharmaceutical officer notify him that the patient is still in the hospital. Objective Vitals Vital Signs Date Time Temp Pulse Resp B/P Pulse Ox O2 Delivery O2 Flow Rate FiO2 10/30/16 10:59 18 10/30/16 08:00 98.0 72 17 128/81 99 10/29/16 20:00 97.6 86 21 123/84 97 I/O 10/29/16 10/29/16 10/29/16 10/30/16 10/30/16 10/30/16 07:00 15:00 23:00 07:00 15:00 23:00 Intake Total 360 ml 1200 ml 720 ml 480 ml Output Total 300 ml 1100 ml 1300 ml 1300 ml 800 ml Balance 60 ml 100 ml -580 ml -820 ml -800 ml Intake Oral 360 ml 1200 ml 720 ml 480 ml Output Urine Total 300 ml 1100 ml 1300 ml 1300 ml 800 ml # Bowel Movements 1 Objective Remarks GENERAL: Well-developed, well-nourished, in no acute distress. alert and orientated HEENT: Head is normocephalic without any lesions or masses noted. Facial features are symmetric. Eyes: Extraocular muscles are intact. Conjunctivae were clear. NECK: Supple without any masses. Trachea midline no deviation. No JVD, CARDIAC: Regular rhythm, regular rate. S1/S2 are heard. No murmurs gallops or rubs. LUNGS: Clear to auscultation bilaterally. No wheeze, rhonchi or rales. No use of accessory muscles on inspiration or expiration. ABDOMEN: Soft, nontender. Nondistended. Bowel sounds heard in all 4 quadrants. No organomegaly or masses. Negative rebound, negative guarding. Suprapubic catheter in place without any signs of infection. Colostomy noted EXTREMITIES: No edema, pulses are equal bilaterally. No cyanosis or clubbing NEUROLOGY: Mood and affect appear appropriate. Cranial nerves II through XII grossly intact. Procedures Debridement Urinary Catheter: Yes Assessment to: Continue Peterson insert reason: Stage III/IV Press Ulcer Date of Insertion: Oct 04, 2016 Vascular Central Line Catheter: No Assessment to: Remove Date of Insertion: Oct 05, 2016 Line: PICC Side: Right Reason for Continuation Patient refusing to have it removed A/P Assessment and Plan Mr. Byrd is a 35-year-old male with PMH of Anxiety, Paraplegia, Neurogenic Bladder s/p Suprapubic Cath, Chronic UTI and Chronic Sacral Decubitus Ulcer who presented for evaluation of sacral wound. Stage IV Chronic Sacral, trochanter, scrotal Ulcer in a paraplegic patient, Present at time of admission. Wound care nurse re-consulted, appreciate recommendations, Wound VAC placement with Shanthi, 10/11. Wound VAC changes M/W/F Plastic surgery did perform excisional debridement of chronic decubitus of left trochanter, sacrum, right ischium, bases scrotal wound. 09/07/16 wound care orders written by plastic surgery 09/28/16: Plastic surgery discontinued wound VAC with application of Betadine moistened gauze Infectious disease consulted because of wound cultures with Proteus mirabilis, MRSA. Urine culture with Proteus mirabilis and Escherichia coli. Daptomycin was continued for 3 week duration for eradication. / Monitoring labs, CPK level twice weekly. Last CPK 10/17, 196. Consider repeat urinalysis if patient develops symptoms or after Peterson is changed this month 11/04/16 Pain control Dilaudid 4 mg by mouth every 4 hours as needed for pain E Coli/Proteus complicated urinary tract infection: Patient completed antibiotic regimen Infectious disease recommending Rocephin for 3 weeks, stopped 10/18/16 Repeat culture now with Kat albicans, enterococcus faecalis Fluconazole for 3 days Bowel regimen with history of constipation. Monitor ostomy output. Whitney-Colace daily, Dulcolax as needed Neurogenic Bladder: Secondary to Paraplegia. Suprapubic catheter to be changed monthly last changed 10/04/16 Paraplegia: At baseline. Continue home medications. Trapeze setup in place Multi-Podus boots PT eval, recommends SNF, case management assisting. --Consulted OT who made recommendations for wheelchair. Recommendations given to case management to obtain wheelchair for patient DVT Prophylaxis: SCD/Teds/lovenox. Discharge Planning Discharge planning per case management. Sergei Larose Oct 30, 2016 14:59
[2016-10-30] MEDS: ENOXAPARIN SODIUM 40 MG/0.4 ML SYRINGE SQ SCH (16:24)
[2016-10-30 20:00] VITALS: BP 118/70; PULSE 86; RESP 20; TEMP 96.8; O2SAT 96
[2016-10-30] MEDS: diphenhydrAMINE HCL 25 MG CAP PO PRN (22:42)
[2016-10-30] MEDS: ALPRAZolam 1 MG TAB PO PRN (22:42)
[2016-10-31 08:00] VITALS: BP 111/74; PULSE 80; RESP 17; TEMP 97.7; O2SAT 95
[2016-10-31] MEDS: FERROUS SULFATE 325 MG (65 MG ELEMENTAL IRON) TAB PO SCH ×2 (08:16→17:33)
[2016-10-31] MEDS: GABAPENTIN 400 MG CAP PO SCH ×3 (08:16→17:33)
[2016-10-31] MEDS: DOCUSATE SODIUM 50 MG/SENNA 8.6 MG TAB PO SCH (08:16)
[2016-10-31] MEDS: PANTOPRAZOLE SOD 40 MG DELAYED RELEASE TAB PO SCH (08:16)
[2016-10-31] MEDS: HYDROCORTISONE 1% CREAM 30 GM TOPICAL SCH (08:17)
[2016-10-31] MEDS: LACTIC ACID (AMMONIUM LACTATE) 12% LOTION 225 GM BTL TOPICAL SCH ×2 (08:17→21:00)
[2016-10-31] MEDS: HYDROmorphone HCL 4 MG TAB PO PRN ×3 (08:26→22:01)
--- NOTE | 2016-10-31 10:09 | HHI.PR ---
Subjective Remarks Patient seen and examined today. Patient denies any new complaints. No change clinical status. Objective Vitals Vital Signs Date Time Temp Pulse Resp B/P Pulse Ox O2 Delivery O2 Flow Rate FiO2 10/31/16 08:00 97.7 80 17 111/74 95 10/30/16 20:00 96.8 86 20 118/70 96 10/30/16 17:25 18 I/O 10/30/16 10/30/16 10/30/16 10/31/16 10/31/16 10/31/16 07:00 15:00 23:00 07:00 15:00 23:00 Intake Total 480 ml 480 ml Output Total 1300 ml 800 ml 200 ml 1000 ml Balance -820 ml -800 ml -200 ml -520 ml Intake Oral 480 ml 480 ml Output Urine Total 1300 ml 800 ml 200 ml 1000 ml # Bowel Movements 0 Objective Remarks GENERAL: Well-developed, well-nourished, in no acute distress. alert and orientated HEENT: Head is normocephalic without any lesions or masses noted. Facial features are symmetric. Eyes: Extraocular muscles are intact. Conjunctivae were clear. NECK: Supple without any masses. Trachea midline no deviation. No JVD, CARDIAC: Regular rhythm, regular rate. S1/S2 are heard. No murmurs gallops or rubs. LUNGS: Clear to auscultation bilaterally. No wheeze, rhonchi or rales. No use of accessory muscles on inspiration or expiration. ABDOMEN: Soft, nontender. Nondistended. Bowel sounds heard in all 4 quadrants. No organomegaly or masses. Negative rebound, negative guarding. Suprapubic catheter in place without any signs of infection. Colostomy noted EXTREMITIES: No edema, pulses are equal bilaterally. No cyanosis or clubbing NEUROLOGY: Mood and affect appear appropriate. Cranial nerves II through XII grossly intact. Procedures Debridement Urinary Catheter: Yes (suprapubic catheter) Assessment to: Continue Peterson insert reason: Stage III/IV Press Ulcer Date of Insertion: Oct 04, 2016 Vascular Central Line Catheter: No Date of Insertion: Oct 05, 2016 Date of Removal: Oct 30, 2016 Line: PICC Side: Right A/P Assessment and Plan Mr. Byrd is a 35-year-old male with PMH of Anxiety, Paraplegia, Neurogenic Bladder s/p Suprapubic Cath, Chronic UTI and Chronic Sacral Decubitus Ulcer who presented for evaluation of sacral wound. Stage IV Chronic Sacral, trochanter, scrotal Ulcer in a paraplegic patient, Present at time of admission. Wound care nurse re-consulted, appreciate recommendations, Wound VAC placement with Shanthi, 10/11. Wound VAC changes M/W/F Plastic surgery did perform excisional debridement of chronic decubitus of left trochanter, sacrum, right ischium, bases scrotal wound. 09/07/16 wound care orders written by plastic surgery 09/28/16: Plastic surgery discontinued wound VAC with application of Betadine moistened gauze Infectious disease consulted because of wound cultures with Proteus mirabilis, MRSA. Urine culture with Proteus mirabilis and Escherichia coli. Daptomycin was continued for 3 week duration for eradication. / Consider repeat urinalysis if patient develops symptoms, after Peterson is changed this month 11/04/16 Pain control Dilaudid 4 mg by mouth every 4 hours as needed for pain E Coli/Proteus complicated urinary tract infection: Patient completed antibiotic regimen Infectious disease recommending Rocephin for 3 weeks, stopped 10/18/16 Repeat culture now with Kat albicans, enterococcus faecalis Fluconazole for 3 days Bowel regimen with history of constipation. Monitor ostomy output. Whitney-Colace daily, Dulcolax as needed Neurogenic Bladder: Secondary to Paraplegia. Suprapubic catheter to be changed monthly last changed 10/04/16 Paraplegia: At baseline. Continue home medications. Trapeze setup in place Multi-Podus boots PT eval, recommends SNF, case management assisting. --Consulted OT who made recommendations for wheelchair. Recommendations given to case management to obtain wheelchair for patient DVT Prophylaxis: SCD/Teds/lovenox. Discharge Planning Discharge planning per case management. Sergei Larose Oct 31, 2016 10:09
[2016-10-31] MEDS: ENOXAPARIN SODIUM 40 MG/0.4 ML SYRINGE SQ SCH (12:19)
[2016-10-31 20:00] VITALS: BP 111/73; PULSE 87; RESP 18; TEMP 97.2; O2SAT 95
[2016-10-31] MEDS: ALPRAZolam 1 MG TAB PO PRN (22:01)
[2016-10-31] MEDS: diphenhydrAMINE HCL 25 MG CAP PO PRN (22:04)
[2016-11-01] MEDS: HYDROmorphone HCL 4 MG TAB PO PRN ×3 (05:37→19:53)
[2016-11-01] MEDS: PANTOPRAZOLE SOD 40 MG DELAYED RELEASE TAB PO SCH (08:04)
[2016-11-01] MEDS: FERROUS SULFATE 325 MG (65 MG ELEMENTAL IRON) TAB PO SCH ×2 (08:04→16:39)
[2016-11-01] MEDS: GABAPENTIN 400 MG CAP PO SCH ×3 (08:05→16:39)
[2016-11-01] MEDS: DOCUSATE SODIUM 50 MG/SENNA 8.6 MG TAB PO SCH (08:06)
[2016-11-01] MEDS: LACTIC ACID (AMMONIUM LACTATE) 12% LOTION 225 GM BTL TOPICAL SCH ×2 (08:08→19:55)
[2016-11-01] MEDS: HYDROCORTISONE 1% CREAM 30 GM TOPICAL SCH (08:08)
[2016-11-01 08:33] VITALS: BP 108/68; PULSE 69; RESP 19; TEMP 95.4; O2SAT 97
--- NOTE | 2016-11-01 10:25 | HHI.PR ---
Subjective Remarks Patient seen and examined today. Patient denies any new complaints. No change in clinical status. Objective Vitals Vital Signs Date Time Temp Pulse Resp B/P Pulse Ox O2 Delivery O2 Flow Rate FiO2 11/01/16 08:33 95.4 69 19 108/68 97 10/31/16 20:00 97.2 87 18 111/73 95 I/O 10/31/16 10/31/16 10/31/16 11/01/16 11/01/16 11/01/16 07:00 15:00 23:00 07:00 15:00 23:00 Intake Total 480 ml 560 ml 300 ml Output Total 1000 ml 1250 ml 25 ml Balance -520 ml -690 ml 275 ml Intake Oral 480 ml 560 ml 300 ml Output Urine Total 1000 ml 1250 ml 25 ml # Bowel Movements 0 1 1 Objective Remarks GENERAL: Well-developed, well-nourished, in no acute distress. alert and orientated HEENT: Head is normocephalic without any lesions or masses noted. Facial features are symmetric. Eyes: Extraocular muscles are intact. Conjunctivae were clear. NECK: Supple without any masses. Trachea midline no deviation. No JVD, CARDIAC: Regular rhythm, regular rate. S1/S2 are heard. No murmurs gallops or rubs. LUNGS: Clear to auscultation bilaterally. No wheeze, rhonchi or rales. No use of accessory muscles on inspiration or expiration. ABDOMEN: Soft, nontender. Nondistended. Bowel sounds heard in all 4 quadrants. No organomegaly or masses. Negative rebound, negative guarding. Suprapubic catheter in place without any signs of infection. Colostomy noted EXTREMITIES: No edema, pulses are equal bilaterally. No cyanosis or clubbing NEUROLOGY: Mood and affect appear appropriate. Cranial nerves II through XII grossly intact. Procedures Debridement Urinary Catheter: Yes Assessment to: Continue Peterson insert reason: Stage III/IV Press Ulcer Date of Insertion: Oct 04, 2016 Vascular Central Line Catheter: No Date of Insertion: Oct 05, 2016 Date of Removal: Oct 30, 2016 Line: PICC Side: Right A/P Assessment and Plan Mr. Byrd is a 35-year-old male with PMH of Anxiety, Paraplegia, Neurogenic Bladder s/p Suprapubic Cath, Chronic UTI and Chronic Sacral Decubitus Ulcer who presented for evaluation of sacral wound. Stage IV Chronic Sacral, trochanter, scrotal Ulcer in a paraplegic patient, Present at time of admission. Wound care nurse re-consulted, appreciate recommendations, Wound VAC placement with Shanthi, 10/11. Wound VAC changes M/W/F Plastic surgery did perform excisional debridement of chronic decubitus of left trochanter, sacrum, right ischium, bases scrotal wound. 09/07/16 wound care orders written by plastic surgery 09/28/16: Plastic surgery discontinued wound VAC with application of Betadine moistened gauze Infectious disease consulted because of wound cultures with Proteus mirabilis, MRSA. Urine culture with Proteus mirabilis and Escherichia coli. Daptomycin was continued for 3 week duration for eradication. / Consider repeat urinalysis if patient develops symptoms, after [place]on is changed this month 11/04/16 Pain control Dilaudid 4 mg by mouth every 4 hours as needed for pain E Coli/Proteus complicated urinary tract infection: Patient completed antibiotic regimen Infectious disease recommending Rocephin for 3 weeks, stopped 10/18/16 Repeat culture now with Kat albicans, enterococcus faecalis Status post Fluconazole for 3 days Bowel regimen with history of constipation. Monitor ostomy output. Whitney-Colace daily, Dulcolax as needed Neurogenic Bladder: Secondary to Paraplegia. Suprapubic catheter to be changed monthly last changed 10/04/16 Paraplegia: At baseline. Continue home medications. Trapeze setup in place Multi-Podus boots PT eval, recommends SNF, case management assisting. --Consulted OT who made recommendations for wheelchair. Recommendations given to case management to obtain wheelchair for patient DVT Prophylaxis: SCD/Teds/lovenox. Discharge Planning Discharge planning per case management. Sergei Larose Nov 01, 2016 10:25
[2016-11-01] MEDS: ENOXAPARIN SODIUM 40 MG/0.4 ML SYRINGE SQ SCH (16:40)
[2016-11-01] MEDS: ALPRAZolam 1 MG TAB PO PRN (19:52)
[2016-11-01] MEDS: diphenhydrAMINE HCL 25 MG CAP PO PRN (19:53)
[2016-11-01 20:00] VITALS: BP 114/85; PULSE 74; RESP 20; TEMP 96.6; O2SAT 95
[2016-11-02] MEDS: HYDROmorphone HCL 4 MG TAB PO PRN ×3 (04:54→22:08)
[2016-11-02] MEDS: LACTIC ACID (AMMONIUM LACTATE) 12% LOTION 225 GM BTL TOPICAL SCH ×2 (07:55→22:10)
[2016-11-02] MEDS: FERROUS SULFATE 325 MG (65 MG ELEMENTAL IRON) TAB PO SCH ×2 (07:55→16:23)
[2016-11-02] MEDS: GABAPENTIN 400 MG CAP PO SCH ×3 (07:55→16:23)
[2016-11-02] MEDS: PANTOPRAZOLE SOD 40 MG DELAYED RELEASE TAB PO SCH (07:55)
[2016-11-02] MEDS: DOCUSATE SODIUM 50 MG/SENNA 8.6 MG TAB PO SCH (07:55)
[2016-11-02] MEDS: HYDROCORTISONE 1% CREAM 30 GM TOPICAL SCH (07:56)
[2016-11-02 08:00] VITALS: BP 119/76; PULSE 65; RESP 20; TEMP 96.9; O2SAT 98
[2016-11-02] MEDS: ENOXAPARIN SODIUM 40 MG/0.4 ML SYRINGE SQ SCH (11:58)
--- NOTE | 2016-11-02 15:25 | HHI.PR ---
Subjective Remarks Patient seen and examined today. Patient denies any new complaints. No change in clinical status. Objective Vitals Vital Signs Date Time Temp Pulse Resp B/P Pulse Ox O2 Delivery O2 Flow Rate FiO2 11/02/16 08:00 96.9 65 20 119/76 98 11/01/16 20:00 96.6 74 20 114/85 95 I/O 11/01/16 11/01/16 11/01/16 11/02/16 11/02/16 11/02/16 07:00 15:00 23:00 07:00 15:00 23:00 Intake Total 300 ml 1240 ml 480 ml 480 ml 630 ml Output Total 25 ml 900 ml 600 ml 400 ml 1100 ml Balance 275 ml 340 ml -120 ml 80 ml -470 ml Intake Oral 300 ml 1240 ml 480 ml 480 ml 630 ml IV Total 0 ml 0 ml Output Urine Total 25 ml 900 ml 600 ml 400 ml 1100 ml Stool Total 0 ml 0 ml # Bowel Movements 1 Imaging Last Impressions Chest X-Ray 10/05/16 0000 Signed Impressions: Service Date/Time: September 13:25 - CONCLUSION: Right upper extremity PICC line in satisfactory position. No evidence of acute cardiopulmonary process. Mike Roa MD Abdomen X-Ray 07/09/16 1518 Signed Impressions: Service Date/Time: Saturday, July 09, 2016 17:06 - CONCLUSION: 1. Moderate amount of stool. 2. No dilated loops of bowel or pneumoperitoneum. 3. Bilateral hip dysplasia. Wes Callejas Jr., MD Abdomen/Pelvis CT 06/08/16 1341 Signed Impressions: Service Date/Time: May 18:40 - CONCLUSION: 1. The balloon portion of the suprapubic catheter is inside the prosthetic urethra. 2. Probable hepatic hemangioma. Ryanne Maya MD Objective Remarks GENERAL: Well-developed, well-nourished, in no acute distress. alert and orientated HEENT: Head is normocephalic without any lesions or masses noted. Facial features are symmetric. Eyes: Extraocular muscles are intact. Conjunctivae were clear. NECK: Supple without any masses. Trachea midline no deviation. No JVD, CARDIAC: Regular rhythm, regular rate. S1/S2 are heard. No murmurs gallops or rubs. LUNGS: Clear to auscultation bilaterally. No wheeze, rhonchi or rales. No use of accessory muscles on inspiration or expiration. ABDOMEN: Soft, nontender. Nondistended. Bowel sounds heard in all 4 quadrants. No organomegaly or masses. Negative rebound, negative guarding. Suprapubic catheter in place without any signs of infection. Colostomy noted EXTREMITIES: No edema, pulses are equal bilaterally. No cyanosis or clubbing NEUROLOGY: Mood and affect appear appropriate. Cranial nerves II through XII grossly intact. Procedures Debridement Urinary Catheter: Yes (suprapubic catheter) Assessment to: Continue Peterson insert reason: Stage III/IV Press Ulcer Date of Insertion: Oct 04, 2016 Vascular Central Line Catheter: No Date of Insertion: Oct 05, 2016 Date of Removal: Oct 30, 2016 Line: PICC Side: Right A/P Assessment and Plan Mr. Byrd is a 35-year-old male with PMH of Anxiety, Paraplegia, Neurogenic Bladder s/p Suprapubic Cath, Chronic UTI and Chronic Sacral Decubitus Ulcer who presented for evaluation of sacral wound. Stage IV Chronic Sacral, trochanter, scrotal Ulcer in a paraplegic patient, Present at time of admission. Wound care nurse re-consulted, appreciate recommendations, Wound VAC placement with Shanthi, 10/11. Wound VAC changes M/W/F Plastic surgery did perform excisional debridement of chronic decubitus of left trochanter, sacrum, right ischium, bases scrotal wound. 09/07/16 wound care orders written by plastic surgery 09/28/16: Plastic surgery discontinued wound VAC with application of Betadine moistened gauze Infectious disease consulted because of wound cultures with Proteus mirabilis, MRSA. Urine culture with Proteus mirabilis and Escherichia coli. Daptomycin was continued for 3 week duration for eradication. / Consider repeat urinalysis if patient develops symptoms, after Peterson is changed this month 11/04/16 Pain control Dilaudid 4 mg by mouth every 4 hours as needed for pain E Coli/Proteus complicated urinary tract infection: Patient completed antibiotic regimen Infectious disease recommending Rocephin for 3 weeks, stopped 10/18/16 Repeat culture now with Kat albicans, enterococcus faecalis Status post Fluconazole for 3 days Bowel regimen with history of constipation. Monitor ostomy output. Whitney-Colace daily, Dulcolax as needed Neurogenic Bladder: Secondary to Paraplegia. Suprapubic catheter to be changed monthly last changed 10/04/16 Paraplegia: At baseline. Continue home medications. Trapeze setup in place Multi-Podus boots PT eval, recommends SNF, case management assisting. --Consulted OT who made recommendations for wheelchair. Recommendations given to case management to obtain wheelchair for patient DVT Prophylaxis: SCD/Teds/lovenox. Discharge Planning Discharge planning per case management. Sergei Larose Nov 02, 2016 15:25 Ron Fontaine MD Nov 03, 2016 17:15
[2016-11-02 20:00] VITALS: BP 121/78; PULSE 75; RESP 18; TEMP 97.2; O2SAT 97
[2016-11-02] MEDS: diphenhydrAMINE HCL 25 MG CAP PO PRN (22:08)
[2016-11-03 08:09] VITALS: BP 120/79; PULSE 77; RESP 19; TEMP 96.1; O2SAT 97
--- NOTE | 2016-11-03 08:35 | HHI.PR ---
Subjective Remarks Patient's examined today. Patient denies any new complaints. Plans for wound VAC to be changed today. Objective Vitals Vital Signs Date Time Temp Pulse Resp B/P Pulse Ox O2 Delivery O2 Flow Rate FiO2 11/03/16 08:09 96.1 77 19 120/79 97 11/02/16 20:00 97.2 75 18 121/78 97 I/O 11/02/16 11/02/16 11/02/16 11/03/16 11/03/16 11/03/16 07:00 15:00 23:00 07:00 15:00 23:00 Intake Total 480 ml 630 ml 1450 ml Output Total 400 ml 1100 ml 3300 ml Balance 80 ml -470 ml -1850 ml Intake Oral 480 ml 630 ml 1450 ml IV Total 0 ml Output Urine Total 400 ml 1100 ml 2600 ml Stool Total 0 ml 700 ml Objective Remarks GENERAL: Well-developed, well-nourished, in no acute distress. alert and orientated HEENT: Head is normocephalic without any lesions or masses noted. Facial features are symmetric. Eyes: Extraocular muscles are intact. Conjunctivae were clear. NECK: Supple without any masses. Trachea midline no deviation. No JVD, CARDIAC: Regular rhythm, regular rate. S1/S2 are heard. No murmurs gallops or rubs. LUNGS: Clear to auscultation bilaterally. No wheeze, rhonchi or rales. No use of accessory muscles on inspiration or expiration. ABDOMEN: Soft, nontender. Nondistended. Bowel sounds heard in all 4 quadrants. No organomegaly or masses. Negative rebound, negative guarding. Suprapubic catheter in place without any signs of infection. Colostomy noted EXTREMITIES: No edema, pulses are equal bilaterally. No cyanosis or clubbing NEUROLOGY: Mood and affect appear appropriate. Cranial nerves II through XII grossly intact. Procedures Debridement Urinary Catheter: Yes (suprapubic catheter) Assessment to: Continue Peterson insert reason: Prolonged Immobilization Date of Insertion: Oct 04, 2016 Date of Insertion: Oct 05, 2016 Date of Removal: Oct 30, 2016 A/P Assessment and Plan Mr. Byrd is a 35-year-old male with PMH of Anxiety, Paraplegia, Neurogenic Bladder s/p Suprapubic Cath, Chronic UTI and Chronic Sacral Decubitus Ulcer who presented for evaluation of sacral wound. Stage IV Chronic Sacral, trochanter, scrotal Ulcer in a paraplegic patient, Present at time of admission. Wound care nurse re-consulted, appreciate recommendations, Wound VAC placement with Shanthi, 10/11. Wound VAC changes M/W/F Plastic surgery did perform excisional debridement of chronic decubitus of left trochanter, sacrum, right ischium, bases scrotal wound. 09/07/16 wound care orders written by plastic surgery Infectious disease consulted because of wound cultures with Proteus mirabilis, MRSA. Daptomycin was continued for 3 week duration for eradication. / Pain control Dilaudid 4 mg by mouth every 4 hours as needed for pain E Coli/Proteus complicated urinary tract infection: Patient completed antibiotic regimen Infectious disease recommending Rocephin for 3 weeks, stopped 10/18/16 Repeat culture indicated Kat albicans, enterococcus faecalis Status post Fluconazole for 3 days Bowel regimen with history of constipation. Monitor ostomy output. Whitney-Colace daily, Dulcolax as needed Neurogenic Bladder: Secondary to Paraplegia. Suprapubic catheter to be changed monthly last changed 10/04/16 Paraplegia: At baseline. Continue home medications. Trapeze setup in place Multi-Podus boots PT eval, recommends SNF, case management assisting. --Consulted OT who made recommendations for wheelchair. Recommendations given to case management to obtain wheelchair for patient DVT Prophylaxis: SCD/Teds/lovenox. Discharge Planning Discharge planning per case management. Sergei Larose Nov 03, 2016 08:35 Ron Fontaine MD Nov 03, 2016 17:15
[2016-11-03] MEDS: PANTOPRAZOLE SOD 40 MG DELAYED RELEASE TAB PO SCH (08:43)
[2016-11-03] MEDS: DOCUSATE SODIUM 50 MG/SENNA 8.6 MG TAB PO SCH (08:43)
[2016-11-03] MEDS: GABAPENTIN 400 MG CAP PO SCH ×3 (08:43→17:13)
[2016-11-03] MEDS: FERROUS SULFATE 325 MG (65 MG ELEMENTAL IRON) TAB PO SCH ×2 (08:43→17:13)
[2016-11-03] MEDS: HYDROmorphone HCL 4 MG TAB PO PRN ×2 (08:44→17:13)
[2016-11-03] MEDS: HYDROCORTISONE 1% CREAM 30 GM TOPICAL SCH (08:44)
[2016-11-03] MEDS: LACTIC ACID (AMMONIUM LACTATE) 12% LOTION 225 GM BTL TOPICAL SCH ×2 (08:44→20:35)
[2016-11-03] MEDS: ENOXAPARIN SODIUM 40 MG/0.4 ML SYRINGE SQ SCH (17:12)
[2016-11-03] MEDS: diphenhydrAMINE HCL 25 MG CAP PO PRN ×2 (18:42→20:35)
[2016-11-03 20:00] VITALS: BP 129/84; PULSE 98; RESP 21; TEMP 96; O2SAT 98
[2016-11-03] MEDS: ALPRAZolam 1 MG TAB PO PRN (20:35)
[2016-11-04 08:00] VITALS: BP 105/77; PULSE 76; RESP 19; TEMP 96.9; O2SAT 95
[2016-11-04] MEDS: DOCUSATE SODIUM 50 MG/SENNA 8.6 MG TAB PO SCH (09:22)
[2016-11-04] MEDS: FERROUS SULFATE 325 MG (65 MG ELEMENTAL IRON) TAB PO SCH ×2 (09:22→16:27)
[2016-11-04] MEDS: GABAPENTIN 400 MG CAP PO SCH ×3 (09:22→16:27)
[2016-11-04] MEDS: PANTOPRAZOLE SOD 40 MG DELAYED RELEASE TAB PO SCH (09:22)
[2016-11-04] MEDS: HYDROCORTISONE 1% CREAM 30 GM TOPICAL SCH (09:24)
[2016-11-04] MEDS: LACTIC ACID (AMMONIUM LACTATE) 12% LOTION 225 GM BTL TOPICAL SCH ×2 (09:24→22:23)
[2016-11-04] MEDS: HYDROmorphone HCL 4 MG TAB PO PRN ×3 (09:27→22:21)
[2016-11-04] MEDS: ENOXAPARIN SODIUM 40 MG/0.4 ML SYRINGE SQ SCH (11:55)
--- NOTE | 2016-11-04 12:16 | HHI.PR ---
Subjective Remarks Patient seen and examined today. Patient denies any new complaints. No change in clinical status. Objective Vitals Vital Signs Date Time Temp Pulse Resp B/P Pulse Ox O2 Delivery O2 Flow Rate FiO2 11/04/16 08:00 96.9 76 19 105/77 95 11/03/16 20:00 96.0 98 21 129/84 98 11/03/16 18:13 18 I/O 11/03/16 11/03/16 11/03/16 11/04/16 11/04/16 11/04/16 07:00 15:00 23:00 07:00 15:00 23:00 Intake Total 1450 ml 1230 ml 240 ml Output Total 3300 ml 1700 ml 450 ml Balance -1850 ml -470 ml -210 ml Intake Oral 1450 ml 1230 ml 240 ml Output Urine Total 2600 ml 1700 ml 450 ml Stool Total 700 ml Objective Remarks GENERAL: Well-developed, well-nourished, in no acute distress. alert and orientated HEENT: Head is normocephalic without any lesions or masses noted. Facial features are symmetric. Eyes: Extraocular muscles are intact. Conjunctivae were clear. NECK: Supple without any masses. Trachea midline no deviation. No JVD, CARDIAC: Regular rhythm, regular rate. S1/S2 are heard. No murmurs gallops or rubs. LUNGS: Clear to auscultation bilaterally. No wheeze, rhonchi or rales. No use of accessory muscles on inspiration or expiration. ABDOMEN: Soft, nontender. Nondistended. Bowel sounds heard in all 4 quadrants. No organomegaly or masses. Negative rebound, negative guarding. Suprapubic catheter in place without any signs of infection. Colostomy noted EXTREMITIES: No edema, pulses are equal bilaterally. No cyanosis or clubbing NEUROLOGY: Mood and affect appear appropriate. Cranial nerves II through XII grossly intact. Procedures Debridement Urinary Catheter: Yes (suprapubic catheter) Assessment to: Continue Peterson insert reason: Stage III/IV Press Ulcer Date of Insertion: Nov 04, 2016 Vascular Central Line Catheter: No Date of Insertion: Oct 05, 2016 Date of Removal: Oct 30, 2016 A/P Assessment and Plan Mr. Byrd is a 35-year-old male with PMH of Anxiety, Paraplegia, Neurogenic Bladder s/p Suprapubic Cath, Chronic UTI and Chronic Sacral Decubitus Ulcer who presented for evaluation of sacral wound. Stage IV Chronic Sacral, trochanter, scrotal Ulcer in a paraplegic patient, Present at time of admission. Wound care nurse re-consulted, appreciate recommendations, Wound VAC placement with Shanthi, 10/11. Wound VAC changes M/W/F Plastic surgery did perform excisional debridement of chronic decubitus of left trochanter, sacrum, right ischium, bases scrotal wound. 09/07/16 wound care orders written by plastic surgery Infectious disease consulted because of wound cultures with Proteus mirabilis, MRSA. Daptomycin was continued for 3 week duration for eradication. Pain control Dilaudid 4 mg by mouth every 4 hours as needed for pain E Coli/Proteus complicated urinary tract infection: Patient completed antibiotic regimen Infectious disease recommending Rocephin for 3 weeks, stopped 10/18/16 Repeat culture indicated Kat albicans, enterococcus faecalis Status post Fluconazole for 3 days Bowel regimen with history of constipation. Monitor ostomy output. Whitney-Colace daily, Dulcolax as needed Neurogenic Bladder: Secondary to Paraplegia. Suprapubic catheter to be changed monthly last changed 11/04/16 Paraplegia: At baseline. Continue home medications. Trapeze setup in place Multi-Podus boots PT eval, recommends SNF, case management assisting. --Consulted OT who made recommendations for wheelchair. Recommendations given to case management to obtain wheelchair for patient DVT Prophylaxis: SCD/Teds/lovenox. Discharge Planning Discharge planning per case management. Sergei Larose Nov 04, 2016 12:16 Ron Fontaine MD Nov 04, 2016 14:16
[2016-11-04 20:00] VITALS: BP 121/80; PULSE 76; RESP 18; TEMP 97.7; O2SAT 96
[2016-11-04] MEDS: ALPRAZolam 1 MG TAB PO PRN (22:21)
[2016-11-04] MEDS: diphenhydrAMINE HCL 25 MG CAP PO PRN (22:21)
[2016-11-05 08:00] VITALS: BP 109/77; PULSE 71; RESP 18; TEMP 97.3; O2SAT 97
[2016-11-05] MEDS: GABAPENTIN 400 MG CAP PO SCH ×3 (09:45→16:57)
[2016-11-05] MEDS: DOCUSATE SODIUM 50 MG/SENNA 8.6 MG TAB PO SCH (09:46)
[2016-11-05] MEDS: FERROUS SULFATE 325 MG (65 MG ELEMENTAL IRON) TAB PO SCH ×2 (09:46→16:57)
[2016-11-05] MEDS: PANTOPRAZOLE SOD 40 MG DELAYED RELEASE TAB PO SCH (09:46)
[2016-11-05] MEDS: HYDROmorphone HCL 4 MG TAB PO PRN ×3 (09:46→23:42)
[2016-11-05] MEDS: LACTIC ACID (AMMONIUM LACTATE) 12% LOTION 225 GM BTL TOPICAL SCH ×2 (09:49→19:55)
[2016-11-05] MEDS: HYDROCORTISONE 1% CREAM 30 GM TOPICAL SCH (09:49)
--- NOTE | 2016-11-05 11:55 | HHI.PR ---
Subjective Remarks Patient seen and examined today. Patient denies any new complaints. No change clinical status. Awaiting Peterson due to be replaced. Special order Peterson Objective Vitals Vital Signs Date Time Temp Pulse Resp B/P Pulse Ox O2 Delivery O2 Flow Rate FiO2 11/05/16 08:00 97.3 71 18 109/77 97 11/04/16 20:00 97.7 76 18 121/80 96 I/O 11/04/16 11/04/16 11/04/16 11/05/16 11/05/16 11/05/16 07:00 15:00 23:00 07:00 15:00 23:00 Intake Total 240 ml 630 ml 600 ml 480 ml Output Total 450 ml 650 ml 1900 ml 750 ml Balance -210 ml -20 ml -1300 ml -270 ml Intake Oral 240 ml 630 ml 600 ml 480 ml IV Total 0 ml 0 ml Output Urine Total 450 ml 650 ml 1750 ml 750 ml Stool Total 150 ml 0 ml # Bowel Movements 0 Objective Remarks GENERAL: Well-developed, well-nourished, in no acute distress. alert and orientated HEENT: Head is normocephalic without any lesions or masses noted. Facial features are symmetric. Eyes: Extraocular muscles are intact. Conjunctivae were clear. NECK: Supple without any masses. Trachea midline no deviation. No JVD, CARDIAC: Regular rhythm, regular rate. S1/S2 are heard. No murmurs gallops or rubs. LUNGS: Clear to auscultation bilaterally. No wheeze, rhonchi or rales. No use of accessory muscles on inspiration or expiration. ABDOMEN: Soft, nontender. Nondistended. Bowel sounds heard in all 4 quadrants. No organomegaly or masses. Negative rebound, negative guarding. Suprapubic catheter in place without any signs of infection. Colostomy noted EXTREMITIES: No edema, pulses are equal bilaterally. No cyanosis or clubbing NEUROLOGY: Mood and affect appear appropriate. Cranial nerves II through XII grossly intact. Procedures Debridement Urinary Catheter: Yes Peterson insert reason: Prolonged Immobilization Date of Insertion: Oct 04, 2016 Vascular Central Line Catheter: No Date of Insertion: Oct 05, 2016 Date of Removal: Oct 30, 2016 A/P Assessment and Plan Mr. Byrd is a 35-year-old male with PMH of Anxiety, Paraplegia, Neurogenic Bladder s/p Suprapubic Cath, Chronic UTI and Chronic Sacral Decubitus Ulcer who presented for evaluation of sacral wound. Stage IV Chronic Sacral, trochanter, scrotal Ulcer in a paraplegic patient, Present at time of admission. Wound care nurse re-consulted, appreciate recommendations, Wound VAC placement with Shanthi, 10/11. Wound VAC changes M/W/F Plastic surgery did perform excisional debridement of chronic decubitus of left trochanter, sacrum, right ischium, bases scrotal wound. 09/07/16 wound care orders written by plastic surgery Infectious disease consulted because of wound cultures with Proteus mirabilis, MRSA. Daptomycin was continued for 3 week duration for eradication. / Pain control Dilaudid 4 mg by mouth every 4 hours as needed for pain E Coli/Proteus complicated urinary tract infection: Patient completed antibiotic regimen Infectious disease recommending Rocephin for 3 weeks, stopped 10/18/16 Repeat culture indicated Kat albicans, enterococcus faecalis Status post Fluconazole for 3 days Bowel regimen with history of constipation. Monitor ostomy output. Whitney-Colace daily, Dulcolax as needed Neurogenic Bladder: Secondary to Paraplegia. Suprapubic catheter to be changed monthly last changed 10/04/16, order and to have changed on 11/04/16. Awaiting for special ordered Peterson Paraplegia: At baseline. Continue home medications. Trapeze setup in place Multi-Podus boots PT eval, recommends SNF, case management assisting. --Consulted OT who made recommendations for wheelchair. Recommendations given to case management to obtain wheelchair for patient DVT Prophylaxis: SCD/Teds/lovenox. Discharge Planning Discharge planning per case management. Sergei Larose Nov 05, 2016 11:55
[2016-11-05] MEDS: ENOXAPARIN SODIUM 40 MG/0.4 ML SYRINGE SQ SCH (16:58)
[2016-11-05 20:00] VITALS: BP 136/88; PULSE 81; RESP 20; TEMP 97.2; O2SAT 97
[2016-11-05] MEDS: diphenhydrAMINE HCL 25 MG CAP PO PRN (23:41)
[2016-11-05] MEDS: ALPRAZolam 1 MG TAB PO PRN (23:41)
[2016-11-06 08:00] VITALS: BP 113/78; PULSE 74; RESP 16; TEMP 96.7; O2SAT 98
[2016-11-06] MEDS: PANTOPRAZOLE SOD 40 MG DELAYED RELEASE TAB PO SCH (09:00)
[2016-11-06] MEDS: HYDROmorphone HCL 4 MG TAB PO PRN ×3 (09:07→21:41)
[2016-11-06] MEDS: FERROUS SULFATE 325 MG (65 MG ELEMENTAL IRON) TAB PO SCH ×2 (09:07→17:51)
[2016-11-06] MEDS: DOCUSATE SODIUM 50 MG/SENNA 8.6 MG TAB PO SCH (09:07)
[2016-11-06] MEDS: GABAPENTIN 400 MG CAP PO SCH ×3 (09:08→17:51)
[2016-11-06] MEDS: HYDROCORTISONE 1% CREAM 30 GM TOPICAL SCH (09:09)
[2016-11-06] MEDS: LACTIC ACID (AMMONIUM LACTATE) 12% LOTION 225 GM BTL TOPICAL SCH ×2 (09:09→21:43)
--- NOTE | 2016-11-06 10:49 | HHI.PR ---
Subjective Remarks Patient seen and examined today in follow-up for decubitus wounds. Patient states that he is doing well. Eating well. Has good colostomy output. Denies any worsening of pain or needing increase in pain medication Objective Vitals Vital Signs Date Time Temp Pulse Resp B/P Pulse Ox O2 Delivery O2 Flow Rate FiO2 11/06/16 08:00 96.7 74 16 113/78 98 11/05/16 20:00 97.2 81 20 136/88 97 I/O 11/05/16 11/05/16 11/05/16 11/06/16 11/06/16 11/06/16 07:00 15:00 23:00 07:00 15:00 23:00 Intake Total 480 ml 620 ml 480 ml 480 ml Output Total 750 ml 700 ml 1000 ml 650 ml Balance -270 ml -80 ml -520 ml -170 ml Intake Oral 480 ml 620 ml 480 ml 480 ml IV Total 0 ml 0 ml 0 ml Output Urine Total 750 ml 700 ml 1000 ml 650 ml Stool Total 0 ml # Bowel Movements 0 0 0 Objective Remarks GENERAL: Well-developed, well-nourished, in no acute distress. alert and orientated HEENT: Head is normocephalic without any lesions or masses noted. Facial features are symmetric. Eyes: Extraocular muscles are intact. Conjunctivae were clear. NECK: Supple without any masses. Trachea midline no deviation. No JVD, CARDIAC: Regular rhythm, regular rate. S1/S2 are heard. No murmurs gallops or rubs. LUNGS: Clear to auscultation bilaterally. No wheeze, rhonchi or rales. No use of accessory muscles on inspiration or expiration. ABDOMEN: Soft, nontender. Nondistended. Bowel sounds heard in all 4 quadrants. No organomegaly or masses. Negative rebound, negative guarding. Suprapubic catheter in place without any signs of infection. Colostomy noted EXTREMITIES: No edema, pulses are equal bilaterally. No cyanosis or clubbing NEUROLOGY: Mood and affect appear appropriate. Cranial nerves II through XII grossly intact. Procedures Debridement Urinary Catheter: Yes Assessment to: Continue Peterson insert reason: Stage III/IV Press Ulcer Date of Insertion: Oct 04, 2016 Vascular Central Line Catheter: No Date of Insertion: Oct 05, 2016 Date of Removal: Oct 30, 2016 A/P Assessment and Plan Mr. Byrd is a 35-year-old male with PMH of Anxiety, Paraplegia, Neurogenic Bladder s/p Suprapubic Cath, Chronic UTI and Chronic Sacral Decubitus Ulcer who presented for evaluation of sacral wound. Stage IV Chronic Sacral, trochanter, scrotal Ulcer in a paraplegic patient, Present at time of admission. Wound care nurse re-consulted, appreciate recommendations, Wound VAC placement with Shanthi, 10/11. Wound VAC changes M/W/F Plastic surgery did perform excisional debridement of chronic decubitus of left trochanter, sacrum, right ischium, bases scrotal wound. 09/07/16 wound care orders written by plastic surgery Infectious disease consulted because of wound cultures with Proteus mirabilis, MRSA. Daptomycin was continued for 3 week duration for eradication. / Pain control Dilaudid 4 mg by mouth every 4 hours as needed for pain E Coli/Proteus complicated urinary tract infection: Patient completed antibiotic regimen Infectious disease recommending Rocephin for 3 weeks, stopped 10/18/16 Repeat culture indicated Kat albicans, enterococcus faecalis Status post Fluconazole for 3 days Bowel regimen with history of constipation. Monitor ostomy output. Whitney-Colace daily, Dulcolax as needed Neurogenic Bladder: Secondary to Paraplegia. Suprapubic catheter to be changed monthly last changed 10/04/16, order and to have changed on 11/04/16. Awaiting for special ordered Peterson Paraplegia: At baseline. Continue home medications. Trapeze setup in place Multi-Podus boots PT eval, recommends SNF, case management assisting. --Consulted OT who made recommendations for wheelchair. Recommendations given to case management to obtain wheelchair for patient DVT Prophylaxis: SCD/Teds/lovenox. Discharge Planning Discharge planning per case management. Sergei Larose Nov 06, 2016 10:49
[2016-11-06] MEDS: ENOXAPARIN SODIUM 40 MG/0.4 ML SYRINGE SQ SCH (15:08)
[2016-11-06 20:00] VITALS: BP 127/85; PULSE 95; RESP 20; TEMP 98.1; O2SAT 95
[2016-11-06] MEDS: ALPRAZolam 1 MG TAB PO PRN (21:41)
[2016-11-06] MEDS: diphenhydrAMINE HCL 25 MG CAP PO PRN (21:41)
[2016-11-07 08:00] VITALS: BP 113/67; PULSE 74; RESP 16; TEMP 96.7; O2SAT 98
[2016-11-07] MEDS: GABAPENTIN 400 MG CAP PO SCH ×3 (08:01→16:26)
[2016-11-07] MEDS: FERROUS SULFATE 325 MG (65 MG ELEMENTAL IRON) TAB PO SCH ×2 (08:02→16:26)
[2016-11-07] MEDS: HYDROmorphone HCL 4 MG TAB PO PRN ×3 (08:02→23:07)
[2016-11-07] MEDS: PANTOPRAZOLE SOD 40 MG DELAYED RELEASE TAB PO SCH (08:02)
[2016-11-07] MEDS: DOCUSATE SODIUM 50 MG/SENNA 8.6 MG TAB PO SCH (08:02)
[2016-11-07] MEDS: LACTIC ACID (AMMONIUM LACTATE) 12% LOTION 225 GM BTL TOPICAL SCH ×2 (08:04→21:29)
[2016-11-07] MEDS: HYDROCORTISONE 1% CREAM 30 GM TOPICAL SCH (08:04)
[2016-11-07] MEDS: ENOXAPARIN SODIUM 40 MG/0.4 ML SYRINGE SQ SCH (11:56)
--- NOTE | 2016-11-07 15:21 | HHI.PR ---
Subjective Remarks Follow-up for decubitus ulcers. Patient has no acute complaints. Nurse states patient's Peterson will be changed today. Objective Vitals Vital Signs Date Time Temp Pulse Resp B/P Pulse Ox O2 Delivery O2 Flow Rate FiO2 11/07/16 09:21 14 11/07/16 08:00 96.7 74 16 113/67 98 11/06/16 20:00 98.1 95 20 127/85 95 I/O 11/06/16 11/06/16 11/06/16 11/07/16 11/07/16 11/07/16 07:00 15:00 23:00 07:00 15:00 23:00 Intake Total 480 ml 240 ml 0 ml 100 ml Output Total 650 ml 800 ml 775 ml 225 ml Balance -170 ml -800 ml -535 ml -225 ml 100 ml Intake Oral 480 ml 240 ml 100 ml IV Total 0 ml 0 ml 0 ml Output Urine Total 650 ml 800 ml 775 ml 225 ml # Bowel Movements 0 0 Objective Remarks GENERAL: Well-nourished well developed patient in no apparent distress. CARDIOVASCULAR: Regular rate and rhythm. RESPIRATORY: No accessory muscle use. Clear to auscultation. Breath sounds equal bilaterally. GASTROINTESTINAL: Abdomen distended, but non-tender. Colostomy present. NEUROLOGICAL: Awake and alert. Normal speech. PSYCHIATRIC: Appropriate mood and affect. Procedures Debridement Urinary Catheter: Yes Assessment to: Continue Peterson insert reason: Stage III/IV Press Ulcer Date of Insertion: Nov 07, 2016 Vascular Central Line Catheter: No Date of Insertion: Oct 05, 2016 Date of Removal: Oct 30, 2016 A/P Problem List: (1) Sacral decubitus ulcer ICD Code: L89.159 Status: Chronic (2) UTI (urinary tract infection) ICD Code: N39.0 Status: Resolved (3) Constipation ICD Code: K59.00 Status: Resolved (4) Paraplegia ICD Code: G82.20 Status: Chronic (5) Neurogenic bladder ICD Code: N31.9 Status: Chronic Assessment and Plan Mr. Byrd is a 35-year-old male with PMH of Anxiety, Paraplegia, Neurogenic Bladder s/p Suprapubic Cath, Chronic UTI and Chronic Sacral Decubitus Ulcer who presented for evaluation of sacral wound. 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 Plastic surgery did perform excisional debridement of chronic decubitus of left trochanter, sacrum, right ischium, bases scrotal wound. Infectious disease consulted because of wound cultures with Proteus mirabilis, MRSA. Urine culture with Proteus mirabilis and Escherichia coli. Daptomycin was continued for 3 week duration for eradication, /10/06. CPK monitored while on antibiotics. Last CPK 10/17, 196. Wound VAC placement with [place], 10/11. Continue. Pain control Dilaudid 4 mg by mouth every 4 hours as needed for pain E Coli/Proteus complicated urinary tract infection: Infectious disease recommended Rocephin for 3 weeks, completed 10/18/16 Repeat culture with Kat albicans, enterococcus faecalis. S/p Fluconazole for 3 days. Bowel regimen with history of constipation. Monitor ostomy output. Whitney-Colace daily, Dulcolax as needed Neurogenic Bladder: Secondary to Paraplegia. Suprapubic catheter to be changed monthly last changed 11/07/16 Paraplegia: At baseline. Continue home medications. Trapeze setup in place Multi-Podus boots PT eval, recommends SNF, case management assisting. Consulted OT who made recommendations for wheelchair. Recommendations given to case management to obtain wheelchair for patient DVT Prophylaxis: SCD/Teds/lovenox. Discharge Planning PT recommends rehabilitation, wheelchair with removal arms and legs. No OT recommended. 11/03: Awaiting [facility] SNFs to evaluate for placement. Problem Qualifiers (1) Sacral decubitus ulcer: Qualified Code: L89.154 - Decubitus ulcer of sacral region, stage 4 (2) UTI (urinary tract infection): Lani Jensen Nov 07, 2016 15:21
[2016-11-07 20:00] VITALS: BP 114/73; PULSE 85; RESP 20; TEMP 97.2; O2SAT 98
[2016-11-07] MEDS: ALPRAZolam 1 MG TAB PO PRN (23:07)
[2016-11-07] MEDS: diphenhydrAMINE HCL 25 MG CAP PO PRN (23:07)
[2016-11-08 08:00] VITALS: BP 134/80; PULSE 76; RESP 19; TEMP 96.7; O2SAT 98
[2016-11-08] MEDS: HYDROCORTISONE 1% CREAM 30 GM TOPICAL SCH (09:00)
[2016-11-08] MEDS: LACTIC ACID (AMMONIUM LACTATE) 12% LOTION 225 GM BTL TOPICAL SCH ×2 (09:00→20:40)
[2016-11-08] MEDS: PANTOPRAZOLE SOD 40 MG DELAYED RELEASE TAB PO SCH (09:02)
[2016-11-08] MEDS: FERROUS SULFATE 325 MG (65 MG ELEMENTAL IRON) TAB PO SCH ×2 (09:02→17:04)
[2016-11-08] MEDS: DOCUSATE SODIUM 50 MG/SENNA 8.6 MG TAB PO SCH (09:02)
[2016-11-08] MEDS: GABAPENTIN 400 MG CAP PO SCH ×3 (09:03→17:04)
[2016-11-08] MEDS: HYDROmorphone HCL 4 MG TAB PO PRN ×3 (09:03→23:02)
--- NOTE | 2016-11-08 10:37 | HHI.PR ---
Subjective Remarks Follow-up for infected decubitus ulcers. No acute complaints. Objective Vitals Vital Signs Date Time Temp Pulse Resp B/P Pulse Ox O2 Delivery O2 Flow Rate FiO2 11/08/16 10:11 18 11/08/16 08:00 96.7 76 19 134/80 98 11/07/16 20:00 97.2 85 20 114/73 98 I/O 11/07/16 11/07/16 11/07/16 11/08/16 11/08/16 11/08/16 07:00 15:00 23:00 07:00 15:00 23:00 Intake Total 0 ml 100 ml 1180 ml 360 ml Output Total 225 ml 300 ml 1000 ml Balance -225 ml 100 ml 880 ml -640 ml Intake Oral 100 ml 1180 ml 360 ml IV Total 0 ml Output Urine Total 225 ml 300 ml 700 ml Drainage Total 300 ml Objective Remarks GENERAL: Well-nourished well developed patient in no apparent distress. CARDIOVASCULAR: Regular rate and rhythm. RESPIRATORY: No accessory muscle use. Clear to auscultation. Breath sounds equal bilaterally. GASTROINTESTINAL: Abdomen distended, but soft, non-tender. Colostomy present. NEUROLOGICAL: Awake and alert. Normal speech. PSYCHIATRIC: Appropriate mood and affect. Procedures Debridement Urinary Catheter: Yes Assessment to: Continue Peterson insert reason: Stage III/IV Press Ulcer Date of Insertion: Nov 07, 2016 Vascular Central Line Catheter: No Date of Insertion: Oct 05, 2016 Date of Removal: Oct 30, 2016 A/P Problem List: (1) Sacral decubitus ulcer ICD Code: L89.159 Status: Chronic (2) UTI (urinary tract infection) ICD Code: N39.0 Status: Resolved (3) Constipation ICD Code: K59.00 Status: Resolved (4) Paraplegia ICD Code: G82.20 Status: Chronic (5) Neurogenic bladder ICD Code: N31.9 Status: Chronic Assessment and Plan Mr. Byrd is a 35-year-old male with PMH of Anxiety, Paraplegia, Neurogenic Bladder s/p Suprapubic Cath, Chronic UTI and Chronic Sacral Decubitus Ulcer who presented for evaluation of sacral wound. 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 Plastic surgery did perform excisional debridement of chronic decubitus of left trochanter, sacrum, right ischium, bases scrotal wound. Infectious disease consulted because of wound cultures with Proteus mirabilis, MRSA. Urine culture with Proteus mirabilis and Escherichia coli. Daptomycin was continued for 3 week duration for eradication, /10/06. CPK monitored while on antibiotics. Last CPK 10/17, 196. Wound VAC placement with Veraflow, 10/11. Continue. Pain control Dilaudid 4 mg by mouth every 4 hours as needed for pain E Coli/Proteus complicated urinary tract infection: Infectious disease recommended Rocephin for 3 weeks, completed 10/18/16 Repeat culture with Kat albicans, enterococcus faecalis. S/p Fluconazole for 3 days. Bowel regimen with history of constipation. Monitor ostomy output. Whitney-Colace daily, Dulcolax as needed Neurogenic Bladder: Secondary to Paraplegia. Suprapubic catheter to be changed monthly last changed 11/07/16 Paraplegia: At baseline. Continue home medications. Trapeze setup in place Multi-Podus boots PT eval, recommends SNF, case management assisting. Consulted OT who made recommendations for wheelchair. Recommendations given to case management to obtain wheelchair for patient DVT Prophylaxis: SCD/Teds/lovenox. Discharge Planning PT recommends rehabilitation, wheelchair with removal arms and legs. No OT recommended. 11/03: Awaiting [facility] to evaluate for placement. Problem Qualifiers (1) Sacral decubitus ulcer: Qualified Code: L89.154 - Decubitus ulcer of sacral region, stage 4 (2) UTI (urinary tract infection): Lani Jensen Nov 08, 2016 10:37
[2016-11-08] MEDS: ENOXAPARIN SODIUM 40 MG/0.4 ML SYRINGE SQ SCH (17:04)
[2016-11-08] MEDS: diphenhydrAMINE HCL 25 MG CAP PO PRN ×2 (17:05→23:01)
[2016-11-08 20:00] VITALS: BP 121/70; PULSE 82; RESP 21; TEMP 97.4; O2SAT 96
[2016-11-08] MEDS: ALPRAZolam 1 MG TAB PO PRN (23:02)
[2016-11-09 08:00] VITALS: BP 112/79; PULSE 75; RESP 18; TEMP 97.3; O2SAT 96
[2016-11-09] MEDS: HYDROCORTISONE 1% CREAM 30 GM TOPICAL SCH (09:00)
[2016-11-09] MEDS: DOCUSATE SODIUM 50 MG/SENNA 8.6 MG TAB PO SCH (10:09)
[2016-11-09] MEDS: HYDROmorphone HCL 4 MG TAB PO PRN ×3 (10:09→22:10)
[2016-11-09] MEDS: diphenhydrAMINE HCL 25 MG CAP PO PRN ×2 (10:09→20:30)
[2016-11-09] MEDS: FERROUS SULFATE 325 MG (65 MG ELEMENTAL IRON) TAB PO SCH ×2 (10:10→17:28)
[2016-11-09] MEDS: PANTOPRAZOLE SOD 40 MG DELAYED RELEASE TAB PO SCH (10:10)
[2016-11-09] MEDS: GABAPENTIN 400 MG CAP PO SCH ×3 (10:10→17:28)
[2016-11-09] MEDS: LACTIC ACID (AMMONIUM LACTATE) 12% LOTION 225 GM BTL TOPICAL SCH ×2 (10:11→20:30)
--- NOTE | 2016-11-09 11:12 | HHI.PR ---
Subjective Remarks Follow-up for infected decubitus ulcers. No acute complaints. Objective Vitals Vital Signs Date Time Temp Pulse Resp B/P Pulse Ox O2 Delivery O2 Flow Rate FiO2 11/09/16 08:00 97.3 75 18 112/79 96 11/09/16 00:12 20 11/08/16 20:00 97.4 82 21 121/70 96 I/O 11/08/16 11/08/16 11/08/16 11/09/16 11/09/16 11/09/16 07:00 15:00 23:00 07:00 15:00 23:00 Intake Total 360 ml 240 ml 480 ml 480 ml Output Total 1000 ml 1600 ml 1200 ml 800 ml Balance -640 ml -1360 ml -720 ml -320 ml Intake Oral 360 ml 240 ml 480 ml 480 ml Output Urine Total 700 ml 1600 ml 1200 ml 800 ml Drainage Total 300 ml Objective Remarks GENERAL: Well-nourished well developed patient in no apparent distress. CARDIOVASCULAR: Regular rate and rhythm. RESPIRATORY: No accessory muscle use. Clear to auscultation. Breath sounds equal bilaterally. GASTROINTESTINAL: Abdomen distended, but soft, non-tender. Colostomy present. NEUROLOGICAL: Awake and alert. Normal speech. PSYCHIATRIC: Appropriate mood and affect. Quiet. Procedures Debridement Urinary Catheter: Yes Assessment to: Continue Peterson insert reason: Stage III/IV Press Ulcer Date of Insertion: Nov 07, 2016 Vascular Central Line Catheter: No Date of Insertion: Oct 05, 2016 Date of Removal: Oct 30, 2016 A/P Problem List: (1) Sacral decubitus ulcer ICD Code: L89.159 Status: Chronic (2) UTI (urinary tract infection) ICD Code: N39.0 Status: Resolved (3) Constipation ICD Code: K59.00 Status: Resolved (4) Paraplegia ICD Code: G82.20 Status: Chronic (5) Neurogenic bladder ICD Code: N31.9 Status: Chronic Assessment and Plan Mr. Byrd is a 35-year-old male with PMH of Anxiety, Paraplegia, Neurogenic Bladder s/p Suprapubic Cath, Chronic UTI and Chronic Sacral Decubitus Ulcer who presented for evaluation of sacral wound. 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 Plastic surgery did perform excisional debridement of chronic decubitus of left trochanter, sacrum, right ischium, bases scrotal wound. Infectious disease consulted because of wound cultures with Proteus mirabilis, MRSA. Urine culture with Proteus mirabilis and Escherichia coli. Daptomycin was continued for 3 week duration for eradication, /10/06. CPK monitored while on antibiotics. Last CPK 10/17, 196. Wound VAC placement with Veraflow, 10/11. Continue. Pain control Dilaudid 4 mg by mouth every 4 hours as needed for pain E Coli/Proteus complicated urinary tract infection: Infectious disease recommended Rocephin for 3 weeks, completed 10/18/16 Repeat culture with Kat albicans, enterococcus faecalis. S/p Fluconazole for 3 days. Bowel regimen with history of constipation. Monitor ostomy output. Whitney-Colace daily, Dulcolax as needed Neurogenic Bladder: Secondary to Paraplegia. Suprapubic catheter to be changed monthly last changed 11/07/16 Paraplegia: At baseline. Continue home medications. Trapeze setup in place Multi-Podus boots PT eval, recommends SNF, case management assisting. Consulted OT who made recommendations for wheelchair. Recommendations given to case management to obtain wheelchair for patient DVT Prophylaxis: SCD/Teds/lovenox. Discharge Planning PT recommends rehabilitation, wheelchair with removal arms and legs. No OT recommended. 11/03: Awaiting [facility] to evaluate for placement. Problem Qualifiers (1) Sacral decubitus ulcer: Qualified Code: L89.154 - Decubitus ulcer of sacral region, stage 4 (2) UTI (urinary tract infection): Lani Jensen Nov 09, 2016 11:12
[2016-11-09] MEDS: ENOXAPARIN SODIUM 40 MG/0.4 ML SYRINGE SQ SCH (15:24)
[2016-11-09 20:00] VITALS: BP 136/94; PULSE 80; RESP 20; TEMP 96.8; O2SAT 98
[2016-11-09] MEDS: ALPRAZolam 1 MG TAB PO PRN (20:30)
[2016-11-10 08:00] VITALS: BP 121/74; PULSE 76; RESP 16; TEMP 96.4; O2SAT 96
[2016-11-10] MEDS: FERROUS SULFATE 325 MG (65 MG ELEMENTAL IRON) TAB PO SCH ×2 (08:57→17:15)
[2016-11-10] MEDS: PANTOPRAZOLE SOD 40 MG DELAYED RELEASE TAB PO SCH (08:57)
[2016-11-10] MEDS: HYDROCORTISONE 1% CREAM 30 GM TOPICAL SCH (08:57)
[2016-11-10] MEDS: LACTIC ACID (AMMONIUM LACTATE) 12% LOTION 225 GM BTL TOPICAL SCH ×2 (08:57→21:11)
[2016-11-10] MEDS: GABAPENTIN 400 MG CAP PO SCH ×3 (08:57→17:14)
[2016-11-10] MEDS: DOCUSATE SODIUM 50 MG/SENNA 8.6 MG TAB PO SCH (08:57)
[2016-11-10] MEDS: HYDROmorphone HCL 4 MG TAB PO PRN ×2 (09:07→17:14)
--- NOTE | 2016-11-10 10:13 | HHI.PR ---
Subjective Remarks Follow-up for decubitus ulcers. No acute complaints. No change in clinical status. Objective Vitals Vital Signs Date Time Temp Pulse Resp B/P Pulse Ox O2 Delivery O2 Flow Rate FiO2 11/10/16 08:00 96.4 76 16 121/74 96 11/09/16 20:00 96.8 80 20 136/94 98 I/O 11/09/16 11/09/16 11/09/16 11/10/16 11/10/16 11/10/16 07:00 15:00 23:00 07:00 15:00 23:00 Intake Total 480 ml 960 ml 720 ml 480 ml Output Total 800 ml 1250 ml 550 ml 350 ml Balance -320 ml -290 ml 170 ml 130 ml Intake Oral 480 ml 960 ml 720 ml 480 ml Output Urine Total 800 ml 1250 ml 550 ml 350 ml Stool Total 0 ml 0 ml # Bowel Movements 0 Objective Remarks GENERAL: Well-nourished well developed patient in no apparent distress. CARDIOVASCULAR: Regular rate and rhythm. RESPIRATORY: No accessory muscle use. Clear to auscultation. Breath sounds equal bilaterally. GASTROINTESTINAL: Abdomen distended, but soft, non-tender. Colostomy present. NEUROLOGICAL: Awake and alert. Normal speech. PSYCHIATRIC: Appropriate mood and affect. Quiet. Procedures Debridement Urinary Catheter: Yes Assessment to: Continue Peterson insert reason: Stage III/IV Press Ulcer Date of Insertion: Nov 07, 2016 Vascular Central Line Catheter: No Date of Insertion: Oct 05, 2016 Date of Removal: Oct 30, 2016 A/P Problem List: (1) Sacral decubitus ulcer ICD Code: L89.159 Status: Chronic (2) UTI (urinary tract infection) ICD Code: N39.0 Status: Resolved (3) Constipation ICD Code: K59.00 Status: Resolved (4) Paraplegia ICD Code: G82.20 Status: Chronic (5) Neurogenic bladder ICD Code: N31.9 Status: Chronic Assessment and Plan Mr. Byrd is a 35-year-old male with PMH of Anxiety, Paraplegia, Neurogenic Bladder s/p Suprapubic Cath, Chronic UTI and Chronic Sacral Decubitus Ulcer who presented for evaluation of sacral wound. 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 Plastic surgery did perform excisional debridement of chronic decubitus of left trochanter, sacrum, right ischium, bases scrotal wound. Infectious disease consulted because of wound cultures with Proteus mirabilis, MRSA. Urine culture with Proteus mirabilis and Escherichia coli. Daptomycin was continued for 3 week duration for eradication, 09/29//10/06. CPK monitored while on antibiotics. Last CPK 10/17, 196. Wound VAC placement with Veraflow, 10/11. Continue. Pain control Dilaudid 4 mg by mouth every 4 hours as needed for pain E Coli/Proteus complicated urinary tract infection: Infectious disease recommended Rocephin for 3 weeks, completed 10/18/16 Repeat culture with Kat albicans, enterococcus faecalis. S/p Fluconazole for 3 days. Bowel regimen with history of constipation. Monitor ostomy output. Whitney-Colace daily, Dulcolax as needed Neurogenic Bladder: Secondary to Paraplegia. Suprapubic catheter to be changed monthly last changed 11/07/16 Paraplegia: At baseline. Continue home medications. Trapeze setup in place Multi-Podus boots PT eval, recommends SNF, case management assisting. Consulted OT who made recommendations for wheelchair. Recommendations given to case management to obtain wheelchair for patient DVT Prophylaxis: SCD/Teds/lovenox. Discharge Planning PT recommends rehabilitation, wheelchair with removal arms and legs. No OT recommended. 11/03: Awaiting [facility] to evaluate for placement. Problem Qualifiers (1) Sacral decubitus ulcer: Qualified Code: L89.154 - Decubitus ulcer of sacral region, stage 4 (2) UTI (urinary tract infection): Lani Jensen Nov 10, 2016 10:13
[2016-11-10] MEDS: ENOXAPARIN SODIUM 40 MG/0.4 ML SYRINGE SQ SCH ×2 (16:00→17:14)
[2016-11-10 20:00] VITALS: BP 121/85; PULSE 90; RESP 18; TEMP 99; O2SAT 97
[2016-11-11] MEDS: HYDROmorphone HCL 4 MG TAB PO PRN ×3 (06:47→22:02)
[2016-11-11 08:00] VITALS: BP 115/70; PULSE 90; RESP 20; TEMP 97.6; O2SAT 94
[2016-11-11] MEDS: GABAPENTIN 400 MG CAP PO SCH ×3 (08:23→17:15)
[2016-11-11] MEDS: PANTOPRAZOLE SOD 40 MG DELAYED RELEASE TAB PO SCH (08:23)
[2016-11-11] MEDS: DOCUSATE SODIUM 50 MG/SENNA 8.6 MG TAB PO SCH (08:23)
[2016-11-11] MEDS: FERROUS SULFATE 325 MG (65 MG ELEMENTAL IRON) TAB PO SCH ×2 (08:23→17:15)
[2016-11-11] MEDS: HYDROCORTISONE 1% CREAM 30 GM TOPICAL SCH (08:26)
[2016-11-11] MEDS: LACTIC ACID (AMMONIUM LACTATE) 12% LOTION 225 GM BTL TOPICAL SCH ×2 (08:27→21:00)
--- NOTE | 2016-11-11 11:54 | HHI.PR ---
Subjective Remarks Follow-up for decubitus ulcers. RN informs me the patient has new wounds to his right upper back. Patient states there were bumps there prior to how they appear now. Patient seen and examined with Dr. Slaughter. Objective Vitals Vital Signs Date Time Temp Pulse Resp B/P Pulse Ox O2 Delivery O2 Flow Rate FiO2 11/11/16 08:00 97.6 90 20 115/70 94 11/10/16 20:00 99.0 90 18 121/85 97 I/O 11/10/16 11/10/16 11/10/16 11/11/16 11/11/16 11/11/16 07:00 15:00 23:00 07:00 15:00 23:00 Intake Total 480 ml 0 ml 1800 ml 480 ml Output Total 350 ml 1700 ml 350 ml Balance 130 ml 0 ml 100 ml 130 ml Intake Oral 480 ml 1800 ml 480 ml IV Total 0 ml Output Urine Total 350 ml 1600 ml 350 ml Stool Total 0 ml 100 ml 0 ml Objective Remarks GENERAL: Well-nourished well developed patient in no apparent distress. SKIN: The patient has two perfectly circular wounds noted over the right upper back but not directly over the scapula resembling cigarette banks. Each with white slough, but no active drainage. No surrounding erythema CARDIOVASCULAR: Regular rate and rhythm. RESPIRATORY: No accessory muscle use. Clear to auscultation. Breath sounds equal bilaterally. GASTROINTESTINAL: Abdomen distended, but soft, non-tender. Colostomy present. NEUROLOGICAL: Awake and alert. Normal speech. PSYCHIATRIC: Appropriate mood and affect. Quiet. Procedures Debridement Urinary Catheter: Yes Assessment to: Continue Peterson insert reason: Stage III/IV Press Ulcer Date of Insertion: Nov 07, 2016 Vascular Central Line Catheter: No Date of Insertion: Oct 05, 2016 Date of Removal: Oct 30, 2016 A/P Problem List: (1) Sacral decubitus ulcer ICD Code: L89.159 Status: Chronic (2) UTI (urinary tract infection) ICD Code: N39.0 Status: Resolved (3) Constipation ICD Code: K59.00 Status: Resolved (4) Paraplegia ICD Code: G82.20 Status: Chronic (5) Neurogenic bladder ICD Code: N31.9 Status: Chronic Assessment and Plan Mr. Byrd is a 35-year-old male with PMH of Anxiety, Paraplegia, Neurogenic Bladder s/p Suprapubic Cath, Chronic UTI and Chronic Sacral Decubitus Ulcer who presented for evaluation of sacral wound. 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 Plastic surgery did perform excisional debridement of chronic decubitus of left trochanter, sacrum, right ischium, bases scrotal wound. Infectious disease consulted because of wound cultures with Proteus mirabilis, MRSA. Urine culture with Proteus mirabilis and Escherichia coli. Daptomycin was continued for 3 week duration for eradication, 09/29//10/06. CPK monitored while on antibiotics. Last CPK 10/17, 196. Wound VAC placement with Veraflow, 10/11. Continue. Pain control Dilaudid 4 mg by mouth every 4 hours as needed for pain R upper back wounds: Resemble cigarette banks; do not appear as pressure wounds ; possible ruptured blister or abscess? but appearance does not really even fit with that. Patient afebrile. -Reconsult wound nurse for management. E Coli/Proteus complicated urinary tract infection: Infectious disease recommended Rocephin for 3 weeks, completed 10/18/16 Repeat culture with Kat albicans, enterococcus faecalis. S/p Fluconazole for 3 days. Bowel regimen with history of constipation. Monitor ostomy output. Whitney-Colace daily, Dulcolax as needed Neurogenic Bladder: Secondary to Paraplegia. Suprapubic catheter to be changed monthly last changed 11/07/16 Paraplegia: At baseline. Continue home medications. Trapeze setup in place Multi-Podus boots PT eval, recommends SNF, case management assisting. Consulted OT who made recommendations for wheelchair. Recommendations given to case management to obtain wheelchair for patient DVT Prophylaxis: SCD/Teds/lovenox. Discharge Planning PT recommends rehabilitation, wheelchair with removal arms and legs. No OT recommended. 11/03: Awaiting [facility] SNFs to evaluate for placement. Problem Qualifiers (1) Sacral decubitus ulcer: Qualified Code: L89.154 - Decubitus ulcer of sacral region, stage 4 (2) UTI (urinary tract infection): Lani Jensen Nov 11, 2016 11:54
[2016-11-11 19:15] VITALS: BP 110/72; PULSE 76; RESP 22; TEMP 98.4; O2SAT 99
[2016-11-11] MEDS: ALPRAZolam 1 MG TAB PO PRN (22:02)
[2016-11-11] MEDS: diphenhydrAMINE HCL 25 MG CAP PO PRN (22:02)
[2016-11-12 08:00] VITALS: BP 110/72; PULSE 80; RESP 16; TEMP 97.1; O2SAT 94
[2016-11-12] MEDS: DOCUSATE SODIUM 50 MG/SENNA 8.6 MG TAB PO SCH (08:02)
[2016-11-12] MEDS: LACTIC ACID (AMMONIUM LACTATE) 12% LOTION 225 GM BTL TOPICAL SCH ×2 (08:02→21:29)
[2016-11-12] MEDS: HYDROCORTISONE 1% CREAM 30 GM TOPICAL SCH (08:02)
[2016-11-12] MEDS: GABAPENTIN 400 MG CAP PO SCH ×3 (08:02→17:07)
[2016-11-12] MEDS: FERROUS SULFATE 325 MG (65 MG ELEMENTAL IRON) TAB PO SCH ×2 (08:02→17:06)
[2016-11-12] MEDS: PANTOPRAZOLE SOD 40 MG DELAYED RELEASE TAB PO SCH (08:02)
--- NOTE | 2016-11-12 11:59 | HHI.PR ---
Subjective Remarks Follow-up for decubitus ulcers, back wounds. No acute complaints. Objective Vitals Vital Signs Date Time Temp Pulse Resp B/P Pulse Ox O2 Delivery O2 Flow Rate FiO2 11/12/16 08:00 97.1 80 16 110/72 94 11/11/16 19:15 98.4 76 22 110/72 99 I/O 11/11/16 11/11/16 11/11/16 11/12/16 11/12/16 11/12/16 07:00 15:00 23:00 07:00 15:00 23:00 Intake Total 480 ml 1440 ml Output Total 350 ml 750 ml 1000 ml Balance 130 ml -750 ml 440 ml Intake Oral 480 ml 1440 ml Output Urine Total 350 ml 750 ml 1000 ml Stool Total 0 ml Objective Remarks GENERAL: Well-nourished well developed patient in no apparent distress. CARDIOVASCULAR: Regular rate and rhythm. RESPIRATORY: No accessory muscle use. Clear to auscultation. Breath sounds equal bilaterally. GASTROINTESTINAL: Abdomen distended, but soft, non-tender. Colostomy present. NEUROLOGICAL: Awake and alert. Normal speech. PSYCHIATRIC: Appropriate mood and affect. Quiet. Procedures Debridement Urinary Catheter: Yes Assessment to: Continue Peterson insert reason: Stage III/IV Press Ulcer Date of Insertion: Nov 07, 2016 Vascular Central Line Catheter: No Date of Insertion: Oct 05, 2016 Date of Removal: Oct 30, 2016 A/P Problem List: (1) Sacral decubitus ulcer ICD Code: L89.159 Status: Chronic (2) UTI (urinary tract infection) ICD Code: N39.0 Status: Resolved (3) Constipation ICD Code: K59.00 Status: Resolved (4) Paraplegia ICD Code: G82.20 Status: Chronic (5) Neurogenic bladder ICD Code: N31.9 Status: Chronic Assessment and Plan Mr. Byrd is a 35-year-old male with PMH of Anxiety, Paraplegia, Neurogenic Bladder s/p Suprapubic Cath, Chronic UTI and Chronic Sacral Decubitus Ulcer who presented for evaluation of sacral wound. 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 Plastic surgery did perform excisional debridement of chronic decubitus of left trochanter, sacrum, right ischium, bases scrotal wound. Infectious disease consulted because of wound cultures with Proteus mirabilis, MRSA. Urine culture with Proteus mirabilis and Escherichia coli. Daptomycin was continued for 3 week duration for eradication, /10/06. CPK monitored while on antibiotics. Last CPK 10/17, 196. Wound VAC placement with Veraflow, 10/11. Continue. Pain control Dilaudid 4 mg by mouth every 4 hours as needed for pain R upper back wounds: First noted on 11/11. Resemble cigarette banks; do not appear as pressure wounds; possible ruptured blister or abscess? but appearance does not really even fit with that. Patient afebrile. -Reconsult wound nurse for management. E Coli/Proteus complicated urinary tract infection: Infectious disease recommended Rocephin for 3 weeks, completed 10/18/16 Repeat culture with Kat albicans, enterococcus faecalis. S/p Fluconazole for 3 days. Bowel regimen with history of constipation. Monitor ostomy output. Whitney-Colace daily, Dulcolax as needed Neurogenic Bladder: Secondary to Paraplegia. Suprapubic catheter to be changed monthly last changed 11/07/16 Paraplegia: At baseline. Continue home medications. Trapeze setup in place Multi-Podus boots PT eval, recommends SNF, case management assisting. Consulted OT who made recommendations for wheelchair. Recommendations given to case management to obtain wheelchair for patient DVT Prophylaxis: SCD/Teds/lovenox. Discharge Planning PT recommends rehabilitation, wheelchair with removal arms and legs. No OT recommended. 11/03: Awaiting [facility] SNFs to evaluate for placement. Problem Qualifiers (1) Sacral decubitus ulcer: Qualified Code: L89.154 - Decubitus ulcer of sacral region, stage 4 (2) UTI (urinary tract infection): Lani Jensen Nov 12, 2016 11:59
[2016-11-12] MEDS: ENOXAPARIN SODIUM 40 MG/0.4 ML SYRINGE SQ SCH (15:15)
[2016-11-12] MEDS: HYDROmorphone HCL 4 MG TAB PO PRN ×2 (15:24→21:16)
[2016-11-12 20:02] VITALS: BP 140/83; PULSE 106; RESP 20; TEMP 97.7; O2SAT 99
[2016-11-12] MEDS: diphenhydrAMINE HCL 25 MG CAP PO PRN (21:16)
[2016-11-12] MEDS: ALPRAZolam 1 MG TAB PO PRN (21:16)
[2016-11-13 07:15] VITALS: BP 117/73; PULSE 82; RESP 16; TEMP 97; O2SAT 97
[2016-11-13] MEDS: HYDROCORTISONE 1% CREAM 30 GM TOPICAL SCH (09:00)
[2016-11-13] MEDS: LACTIC ACID (AMMONIUM LACTATE) 12% LOTION 225 GM BTL TOPICAL SCH ×2 (09:00→20:32)
--- NOTE | 2016-11-13 10:34 | HHI.PR ---
Subjective Remarks Follow-up for decubitus ulcers, back wounds. No acute complaints. Objective Vitals Vital Signs Date Time Temp Pulse Resp B/P Pulse Ox O2 Delivery O2 Flow Rate FiO2 11/12/16 22:20 18 11/12/16 20:02 97.7 106 20 140/83 99 I/O 11/12/16 11/12/16 11/12/16 11/13/16 11/13/16 11/13/16 07:00 15:00 23:00 07:00 15:00 23:00 Intake Total 1440 ml 1680 ml 240 ml Output Total 1000 ml 1700 ml 500 ml Balance 440 ml -20 ml -260 ml Intake Oral 1440 ml 1680 ml 240 ml Output Urine Total 1000 ml 1700 ml 500 ml # Bowel Movements 1 Objective Remarks GENERAL: Well-nourished well developed patient in no apparent distress. CARDIOVASCULAR: Regular rate and rhythm. RESPIRATORY: No accessory muscle use. Clear to auscultation. Breath sounds equal bilaterally. GASTROINTESTINAL: Abdomen distended, but soft, non-tender. Colostomy present. NEUROLOGICAL: Awake and alert. Normal speech. PSYCHIATRIC: Appropriate mood and affect. Quiet. Procedures Debridement Urinary Catheter: Yes Assessment to: Continue Peterson insert reason: Stage III/IV Press Ulcer Date of Insertion: Nov 07, 2016 Vascular Central Line Catheter: No Date of Insertion: Oct 05, 2016 Date of Removal: Oct 30, 2016 A/P Problem List: (1) Sacral decubitus ulcer ICD Code: L89.159 Status: Chronic (2) UTI (urinary tract infection) ICD Code: N39.0 Status: Resolved (3) Constipation ICD Code: K59.00 Status: Resolved (4) Paraplegia ICD Code: G82.20 Status: Chronic (5) Neurogenic bladder ICD Code: N31.9 Status: Chronic Assessment and Plan Mr. Byrd is a 35-year-old male with PMH of Anxiety, Paraplegia, Neurogenic Bladder s/p Suprapubic Cath, Chronic UTI and Chronic Sacral Decubitus Ulcer who presented for evaluation of sacral wound. 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 Plastic surgery did perform excisional debridement of chronic decubitus of left trochanter, sacrum, right ischium, bases scrotal wound. Infectious disease consulted because of wound cultures with Proteus mirabilis, MRSA. Urine culture with Proteus mirabilis and Escherichia coli. Daptomycin was continued for 3 week duration for eradication, /10/06. CPK monitored while on antibiotics. Last CPK 10/17, 196. Wound VAC placement with Veraflow, 10/11. Continue. Pain control Dilaudid 4 mg by mouth every 4 hours as needed for pain R upper back wounds: First noted on 11/11. Resemble cigarette banks; do not appear as pressure wounds; possible ruptured blister or abscess? but appearance does not really even fit with that. -Wound nurse reconsulted for management. E Coli/Proteus complicated urinary tract infection: Infectious disease recommended Rocephin for 3 weeks, completed 10/18/16 Repeat culture with Kat albicans, enterococcus faecalis. S/p Fluconazole for 3 days. Bowel regimen with history of constipation. Monitor ostomy output. Whitney-Colace daily, Dulcolax as needed Neurogenic Bladder: Secondary to Paraplegia. Suprapubic catheter to be changed monthly last changed 11/07/16 Paraplegia: At baseline. Continue home medications. Trapeze setup in place Multi-Podus boots PT eval, recommends SNF, case management assisting. Consulted OT who made recommendations for wheelchair. Recommendations given to case management to obtain wheelchair for patient DVT Prophylaxis: SCD/Teds/lovenox. Discharge Planning PT recommends rehabilitation, wheelchair with removal arms and legs. No OT recommended. 11/03: Awaiting [facility] SNFs to evaluate for placement. Problem Qualifiers (1) Sacral decubitus ulcer: Qualified Code: L89.154 - Decubitus ulcer of sacral region, stage 4 (2) UTI (urinary tract infection): Lani Jensen Nov 13, 2016 10:34
[2016-11-13] MEDS: FERROUS SULFATE 325 MG (65 MG ELEMENTAL IRON) TAB PO SCH ×2 (11:22→16:57)
[2016-11-13] MEDS: GABAPENTIN 400 MG CAP PO SCH ×3 (11:22→16:57)
[2016-11-13] MEDS: HYDROmorphone HCL 4 MG TAB PO PRN ×2 (11:22→20:31)
[2016-11-13] MEDS: DOCUSATE SODIUM 50 MG/SENNA 8.6 MG TAB PO SCH (11:22)
[2016-11-13] MEDS: PANTOPRAZOLE SOD 40 MG DELAYED RELEASE TAB PO SCH (11:22)
[2016-11-13] MEDS: ENOXAPARIN SODIUM 40 MG/0.4 ML SYRINGE SQ SCH (16:56)
[2016-11-13 20:00] VITALS: BP 129/75; PULSE 90; RESP 20; TEMP 96.5; O2SAT 97
[2016-11-13] MEDS: ALPRAZolam 1 MG TAB PO PRN (20:31)
[2016-11-13] MEDS: diphenhydrAMINE HCL 25 MG CAP PO PRN (20:39)
[2016-11-14] MEDS: diphenhydrAMINE HCL 25 MG CAP PO PRN ×2 (02:58→21:14)
[2016-11-14] MEDS: HYDROmorphone HCL 4 MG TAB PO PRN ×3 (02:58→21:09)
[2016-11-14 08:00] VITALS: BP 133/85; PULSE 86; RESP 18; TEMP 97.7; O2SAT 95
[2016-11-14] MEDS: FERROUS SULFATE 325 MG (65 MG ELEMENTAL IRON) TAB PO SCH ×2 (09:00→17:53)
[2016-11-14] MEDS: LACTIC ACID (AMMONIUM LACTATE) 12% LOTION 225 GM BTL TOPICAL SCH ×2 (09:00→21:11)
[2016-11-14] MEDS: PANTOPRAZOLE SOD 40 MG DELAYED RELEASE TAB PO SCH (09:00)
[2016-11-14] MEDS: HYDROCORTISONE 1% CREAM 30 GM TOPICAL SCH (09:00)
[2016-11-14] MEDS: DOCUSATE SODIUM 50 MG/SENNA 8.6 MG TAB PO SCH (09:00)
[2016-11-14] MEDS: GABAPENTIN 400 MG CAP PO SCH ×3 (09:00→17:54)
--- NOTE | 2016-11-14 15:08 | HHI.PR ---
Subjective Remarks Patient seen and examined today for follow-up on sacral/ischial wounds. Patient resting comfortably in bed. Denies any new complaints. No change in clinical status. Objective Vitals Vital Signs Date Time Temp Pulse Resp B/P Pulse Ox O2 Delivery O2 Flow Rate FiO2 11/14/16 08:00 97.7 86 18 133/85 95 11/13/16 20:00 96.5 90 20 129/75 97 I/O 11/13/16 11/13/16 11/13/16 11/14/16 11/14/16 11/14/16 07:00 15:00 23:00 07:00 15:00 23:00 Intake Total 240 ml 720 ml 480 ml Output Total 500 ml 500 ml 550 ml Balance -260 ml 220 ml -70 ml Intake Oral 240 ml 720 ml 480 ml Output Urine Total 500 ml 500 ml 550 ml # Bowel Movements 1 0 Objective Remarks GENERAL: Well-developed, well-nourished, in no acute distress. alert and orientated HEENT: Head is normocephalic without any lesions or masses noted. Facial features are symmetric. Eyes: Extraocular muscles are intact. Conjunctivae were clear. NECK: Supple without any masses. Trachea midline no deviation. No JVD, CARDIAC: Regular rhythm, regular rate. S1/S2 are heard. No murmurs gallops or rubs. LUNGS: Clear to auscultation bilaterally. No wheeze, rhonchi or rales. No use of accessory muscles on inspiration or expiration. ABDOMEN: Soft, nontender. Nondistended. Bowel sounds heard in all 4 quadrants. No organomegaly or masses. Negative rebound, negative guarding. Suprapubic catheter in place without any signs of infection. Colostomy noted EXTREMITIES: No edema, pulses are equal bilaterally. No cyanosis or clubbing NEUROLOGY: Mood and affect appear appropriate. Cranial nerves II through XII grossly intact. Procedures Debridement Urinary Catheter: Yes Assessment to: Continue Peterson insert reason: Stage III/IV Press Ulcer Date of Insertion: Nov 07, 2016 Vascular Central Line Catheter: No Date of Insertion: Oct 05, 2016 Date of Removal: Oct 30, 2016 A/P Assessment and Plan Mr. Byrd is a 35-year-old male with PMH of Anxiety, Paraplegia, Neurogenic Bladder s/p Suprapubic Cath, Chronic UTI and Chronic Sacral Decubitus Ulcer who presented for evaluation of sacral wound. Stage IV Chronic Sacral, trochanter, scrotal Ulcer in a paraplegic patient, Present at time of admission. Wound care nurse re-consulted, appreciate recommendations, Wound VAC placement with Shanthi, 10/11. Wound VAC changes M/W/F Plastic surgery did perform excisional debridement of chronic decubitus of left trochanter, sacrum, right ischium, bases scrotal wound. 09/07/16 wound care orders written by plastic surgery Infectious disease consulted because of wound cultures with Proteus mirabilis, MRSA. Daptomycin was continued for 3 week duration for eradication. Pain control Dilaudid 4 mg by mouth every 4 hours as needed for pain E Coli/Proteus complicated urinary tract infection: Patient completed antibiotic regimen Infectious disease recommending Rocephin for 3 weeks, stopped 10/18/16 Repeat culture indicated Kat albicans, enterococcus faecalis Status post Fluconazole for 3 days Bowel regimen with history of constipation. Monitor ostomy output. Whitney-Colace daily, Dulcolax as needed Neurogenic Bladder: Secondary to Paraplegia. Suprapubic catheter to be changed monthly last changed 11/07/16 Paraplegia: At baseline. Continue home medications. Trapeze setup in place Multi-Podus boots PT eval, recommends SNF, case management assisting. --Consulted OT who made recommendations for wheelchair. Recommendations given to case management to obtain wheelchair for patient DVT Prophylaxis: SCD/Teds/lovenox. Discharge Planning Discharge planning per case management. Sergei Larose Nov 14, 2016 15:08
[2016-11-14] MEDS: ENOXAPARIN SODIUM 40 MG/0.4 ML SYRINGE SQ SCH (16:00)
[2016-11-14 20:00] VITALS: BP 120/82; PULSE 87; RESP 18; TEMP 97.4; O2SAT 96
[2016-11-14] MEDS: ALPRAZolam 1 MG TAB PO PRN (21:10)
[2016-11-15] MEDS: HYDROmorphone HCL 4 MG TAB PO PRN ×4 (03:25→20:59)
[2016-11-15] MEDS: ALPRAZolam 1 MG TAB PO PRN ×2 (03:25→20:58)
[2016-11-15] MEDS: diphenhydrAMINE HCL 25 MG CAP PO PRN ×2 (03:25→20:59)
[2016-11-15 08:00] VITALS: BP 129/80; PULSE 82; RESP 20; TEMP 97.4; O2SAT 95
[2016-11-15] MEDS: PANTOPRAZOLE SOD 40 MG DELAYED RELEASE TAB PO SCH (08:36)
[2016-11-15] MEDS: DOCUSATE SODIUM 50 MG/SENNA 8.6 MG TAB PO SCH (08:36)
[2016-11-15] MEDS: GABAPENTIN 400 MG CAP PO SCH ×3 (08:37→16:50)
[2016-11-15] MEDS: FERROUS SULFATE 325 MG (65 MG ELEMENTAL IRON) TAB PO SCH ×2 (08:37→16:50)
[2016-11-15] MEDS: LACTIC ACID (AMMONIUM LACTATE) 12% LOTION 225 GM BTL TOPICAL SCH ×2 (08:38→20:54)
--- NOTE | 2016-11-15 11:33 | HHI.PR ---
Subjective Remarks Patient seen and examined today for follow-up on sacral/ischial ulcerations, skin breakdown. Patient denies any new complaints. Discussed with wound care nurse who indicates the patient still having significant tunneling of the left ischial area. Will require further surgery Objective Vitals Vital Signs Date Time Temp Pulse Resp B/P Pulse Ox O2 Delivery O2 Flow Rate FiO2 11/15/16 09:37 20 11/15/16 08:00 97.4 82 20 129/80 95 11/14/16 20:00 97.4 87 18 120/82 96 I/O 11/14/16 11/14/16 11/14/16 11/15/16 11/15/16 11/15/16 07:00 15:00 23:00 07:00 15:00 23:00 Intake Total 480 ml 360 ml 720 ml 560 ml Output Total 550 ml 650 ml 800 ml 800 ml 650 ml Balance -70 ml -290 ml -80 ml -240 ml -650 ml Intake Oral 480 ml 360 ml 720 ml 560 ml Output Urine Total 550 ml 650 ml 600 ml 800 ml 650 ml Stool Total 200 ml 0 ml # Bowel Movements 0 Objective Remarks GENERAL: Well-developed, well-nourished, in no acute distress. alert and orientated HEENT: Head is normocephalic without any lesions or masses noted. Facial features are symmetric. Eyes: Extraocular muscles are intact. Conjunctivae were clear. NECK: Supple without any masses. Trachea midline no deviation. No JVD, CARDIAC: Regular rhythm, regular rate. S1/S2 are heard. No murmurs gallops or rubs. LUNGS: Clear to auscultation bilaterally. No wheeze, rhonchi or rales. No use of accessory muscles on inspiration or expiration. ABDOMEN: Soft, nontender. Nondistended. Bowel sounds heard in all 4 quadrants. No organomegaly or masses. Negative rebound, negative guarding. Suprapubic catheter in place without any signs of infection. Colostomy noted EXTREMITIES: No edema, pulses are equal bilaterally. No cyanosis or clubbing NEUROLOGY: Mood and affect appear appropriate. Cranial nerves II through XII grossly intact. Procedures Debridement Urinary Catheter: Yes Assessment to: Continue Peterson insert reason: Stage III/IV Press Ulcer Date of Insertion: Nov 07, 2016 Date of Insertion: Oct 05, 2016 Date of Removal: Oct 30, 2016 A/P Assessment and Plan Mr. Byrd is a 35-year-old male with PMH of Anxiety, Paraplegia, Neurogenic Bladder s/p Suprapubic Cath, Chronic UTI and Chronic Sacral Decubitus Ulcer who presented for evaluation of sacral wound. Stage IV Chronic Sacral, trochanter, scrotal Ulcer in a paraplegic patient, Present at time of admission. Wound care nurse re-consulted, appreciate recommendations, indicating patient still with tunneling of the left trochanter area. They are going notify plastics and will likely require surgical intervention Wound VAC placement with Shanthi, 10/11. Wound VAC changes M/W/F Plastic surgery did perform excisional debridement of chronic decubitus of left trochanter, sacrum, right ischium, bases scrotal wound. 09/07/16 wound care orders written by plastic surgery Infectious disease consulted because of wound cultures with Proteus mirabilis, MRSA. Daptomycin was continued for 3 week duration for eradication. Pain control Dilaudid 4 mg by mouth every 4 hours as needed for pain E Coli/Proteus complicated urinary tract infection: Patient completed antibiotic regimen Infectious disease recommending Rocephin for 3 weeks, stopped 10/18/16 Repeat culture indicated Kat albicans, enterococcus faecalis Status post Fluconazole for 3 days Bowel regimen with history of constipation. Monitor ostomy output. Whitney-Colace daily, Dulcolax as needed Neurogenic Bladder: Secondary to Paraplegia. Suprapubic catheter to be changed monthly last changed 11/07/16 Paraplegia: At baseline. Continue home medications. Trapeze setup in place Multi-Podus boots PT eval, recommends SNF, case management assisting. --Consulted OT who made recommendations for wheelchair. Recommendations given to case management to obtain wheelchair for patient DVT Prophylaxis: SCD/Teds/lovenox. Discharge Planning Discharge planning per case management. Sergei Larose Nov 15, 2016 11:33
[2016-11-15] MEDS: HYDROCORTISONE 1% CREAM 30 GM TOPICAL SCH (11:53)
[2016-11-15] MEDS: ENOXAPARIN SODIUM 40 MG/0.4 ML SYRINGE SQ SCH (14:17)
[2016-11-15 20:00] VITALS: BP 130/78; PULSE 83; RESP 20; TEMP 97; O2SAT 96
[2016-11-16 09:46] VITALS: BP 129/71; PULSE 79; RESP 15; TEMP 97.1; O2SAT 96
[2016-11-16] MEDS: GABAPENTIN 400 MG CAP PO SCH ×3 (09:49→17:31)
[2016-11-16] MEDS: PANTOPRAZOLE SOD 40 MG DELAYED RELEASE TAB PO SCH (09:49)
[2016-11-16] MEDS: DOCUSATE SODIUM 50 MG/SENNA 8.6 MG TAB PO SCH (09:49)
[2016-11-16] MEDS: FERROUS SULFATE 325 MG (65 MG ELEMENTAL IRON) TAB PO SCH ×2 (09:49→17:30)
[2016-11-16] MEDS: HYDROCORTISONE 1% CREAM 30 GM TOPICAL SCH (09:51)
[2016-11-16] MEDS: LACTIC ACID (AMMONIUM LACTATE) 12% LOTION 225 GM BTL TOPICAL SCH ×2 (09:51→21:31)
[2016-11-16] MEDS: HYDROmorphone HCL 4 MG TAB PO PRN ×2 (09:54→21:29)
--- NOTE | 2016-11-16 11:40 | HHI.PR ---
Subjective Remarks Patient seen and examined today for follow-up on decubitus wounds. Patient denies any new complaints. No change in clinical status. Awaiting recommendations from plastic surgery Objective Vitals Vital Signs Date Time Temp Pulse Resp B/P Pulse Ox O2 Delivery O2 Flow Rate FiO2 11/16/16 09:46 97.1 79 15 129/71 96 11/15/16 21:59 16 11/15/16 20:00 97.0 83 20 130/78 96 I/O 11/15/16 11/15/16 11/15/16 11/16/16 11/16/16 11/16/16 07:00 15:00 23:00 07:00 15:00 23:00 Intake Total 560 ml 240 ml 240 ml Output Total 800 ml 650 ml 1000 ml 425 ml Balance -240 ml -650 ml -760 ml -185 ml Intake Oral 560 ml 240 ml 240 ml Output Urine Total 800 ml 650 ml 1000 ml 425 ml Stool Total 0 ml # Bowel Movements 0 0 Objective Remarks GENERAL: Well-developed, well-nourished, in no acute distress. alert and orientated HEENT: Head is normocephalic without any lesions or masses noted. Facial features are symmetric. Eyes: Extraocular muscles are intact. Conjunctivae were clear. NECK: Supple without any masses. Trachea midline no deviation. No JVD, CARDIAC: Regular rhythm, regular rate. S1/S2 are heard. No murmurs gallops or rubs. LUNGS: Clear to auscultation bilaterally. No wheeze, rhonchi or rales. No use of accessory muscles on inspiration or expiration. ABDOMEN: Soft, nontender. Nondistended. Bowel sounds heard in all 4 quadrants. No organomegaly or masses. Negative rebound, negative guarding. Suprapubic catheter in place without any signs of infection. Colostomy noted EXTREMITIES: No edema, pulses are equal bilaterally. No cyanosis or clubbing NEUROLOGY: Mood and affect appear appropriate. Cranial nerves II through XII grossly intact. Procedures Debridement Urinary Catheter: Yes Assessment to: Continue Peterson insert reason: Stage III/IV Press Ulcer Date of Insertion: Nov 07, 2016 Vascular Central Line Catheter: No Date of Insertion: Oct 05, 2016 Date of Removal: Oct 30, 2016 A/P Assessment and Plan Mr. Byrd is a 35-year-old male with PMH of Anxiety, Paraplegia, Neurogenic Bladder s/p Suprapubic Cath, Chronic UTI and Chronic Sacral Decubitus Ulcer who presented for evaluation of sacral wound. Stage IV Chronic Sacral, trochanter, scrotal Ulcer in a paraplegic patient, Present at time of admission. Wound care nurse re-consulted, appreciate recommendations, indicating patient still with tunneling of the left trochanter area. They are going notify plastics and will likely require surgical intervention Wound VAC placement with Shanthi, 10/11. Wound VAC changes M/W/F Plastic surgery did perform excisional debridement of chronic decubitus of left trochanter, sacrum, right ischium, bases scrotal wound. 09/07/16 wound care orders written by plastic surgery Infectious disease consulted because of wound cultures with Proteus mirabilis, MRSA. Daptomycin was continued for 3 week duration for eradication. / Pain control Dilaudid 4 mg by mouth every 4 hours as needed for pain E Coli/Proteus complicated urinary tract infection: Patient completed antibiotic regimen Infectious disease recommending Rocephin for 3 weeks, stopped 10/18/16 Repeat culture indicated Kat albicans, enterococcus faecalis Status post Fluconazole for 3 days Bowel regimen with history of constipation. Monitor ostomy output. Whitney-Colace daily, Dulcolax as needed Neurogenic Bladder: Secondary to Paraplegia. Suprapubic catheter to be changed monthly last changed 11/07/16 Paraplegia: At baseline. Continue home medications. Trapeze setup in place Multi-Podus boots PT eval, recommends SNF, case management assisting. --Consulted OT who made recommendations for wheelchair. Recommendations given to case management to obtain wheelchair for patient DVT Prophylaxis: SCD/Teds/lovenox. Discharge Planning Discharge planning per case management. Sergei Larose Nov 16, 2016 11:40
[2016-11-16] MEDS: ENOXAPARIN SODIUM 40 MG/0.4 ML SYRINGE SQ SCH (17:27)
[2016-11-16 20:00] VITALS: BP 142/88; PULSE 93; RESP 20; TEMP 97.3; O2SAT 96
[2016-11-16] MEDS: ALPRAZolam 1 MG TAB PO PRN (21:29)
[2016-11-16] MEDS: diphenhydrAMINE HCL 25 MG CAP PO PRN (21:30)
[2016-11-17] MEDS: HYDROmorphone HCL 4 MG TAB PO PRN ×4 (03:40→22:13)
[2016-11-17 08:00] VITALS: BP 130/78; PULSE 75; RESP 20; TEMP 96.4; O2SAT 96
[2016-11-17] MEDS: LACTIC ACID (AMMONIUM LACTATE) 12% LOTION 225 GM BTL TOPICAL SCH ×2 (09:00→22:14)
[2016-11-17] MEDS: DOCUSATE SODIUM 50 MG/SENNA 8.6 MG TAB PO SCH (10:04)
[2016-11-17] MEDS: FERROUS SULFATE 325 MG (65 MG ELEMENTAL IRON) TAB PO SCH ×2 (10:04→18:15)
[2016-11-17] MEDS: PANTOPRAZOLE SOD 40 MG DELAYED RELEASE TAB PO SCH (10:04)
[2016-11-17] MEDS: GABAPENTIN 400 MG CAP PO SCH ×3 (10:04→18:15)
[2016-11-17] MEDS: HYDROCORTISONE 1% CREAM 30 GM TOPICAL SCH (10:05)
--- NOTE | 2016-11-17 10:41 | HHI.PR ---
Subjective Remarks Patient seen and examined today in follow-up on decubitus ulcerations. Patient denies any new complaints. Awaiting plastic surgery for reevaluation of wounds and possible surgical intervention. Objective Vitals Vital Signs Date Time Temp Pulse Resp B/P Pulse Ox O2 Delivery O2 Flow Rate FiO2 11/17/16 08:00 96.4 75 20 130/78 96 11/16/16 20:00 97.3 93 20 142/88 96 I/O 11/16/16 11/16/16 11/16/16 11/17/16 11/17/16 11/17/16 07:00 15:00 23:00 07:00 15:00 23:00 Intake Total 240 ml 1340 ml 240 ml Output Total 425 ml 925 ml 701 ml Balance -185 ml 415 ml -461 ml Intake Oral 240 ml 1340 ml 240 ml Output Urine Total 425 ml 925 ml 700 ml Stool Total 1 ml # Bowel Movements 0 0 1 Objective Remarks GENERAL: Well-developed, well-nourished, in no acute distress. alert and orientated HEENT: Head is normocephalic without any lesions or masses noted. Facial features are symmetric. Eyes: Extraocular muscles are intact. Conjunctivae were clear. NECK: Supple without any masses. Trachea midline no deviation. No JVD, CARDIAC: Regular rhythm, regular rate. S1/S2 are heard. No murmurs gallops or rubs. LUNGS: Clear to auscultation bilaterally. No wheeze, rhonchi or rales. No use of accessory muscles on inspiration or expiration. ABDOMEN: Soft, nontender. Nondistended. Bowel sounds heard in all 4 quadrants. No organomegaly or masses. Negative rebound, negative guarding. Suprapubic catheter in place without any signs of infection. Colostomy noted EXTREMITIES: No edema, pulses are equal bilaterally. No cyanosis or clubbing NEUROLOGY: Mood and affect appear appropriate. Cranial nerves II through XII grossly intact. Procedures Debridement Urinary Catheter: Yes Assessment to: Continue Peterson insert reason: Stage III/IV Press Ulcer Date of Insertion: Nov 07, 2016 Vascular Central Line Catheter: No Date of Insertion: Oct 05, 2016 Date of Removal: Oct 30, 2016 A/P Assessment and Plan Mr. Byrd is a 35-year-old male with PMH of Anxiety, Paraplegia, Neurogenic Bladder s/p Suprapubic Cath, Chronic UTI and Chronic Sacral Decubitus Ulcer who presented for evaluation of sacral wound. Stage IV Chronic Sacral, trochanter, scrotal Ulcer in a paraplegic patient, Present at time of admission. Wound care nurse re-consulted, appreciate recommendations, indicating patient still with tunneling of the left trochanter area. Plastic surgery consulted for further recommendations Wound VAC placement with Verafraphael, 10/11. Wound VAC changes M/W/F Plastic surgery did perform excisional debridement of chronic decubitus of left trochanter, sacrum, right ischium, bases scrotal wound. 09/07/16 wound care orders written by plastic surgery Infectious disease consulted because of wound cultures with Proteus mirabilis, MRSA. Daptomycin was continued for 3 week duration for eradication. Pain control Dilaudid 4 mg by mouth every 4 hours as needed for pain E Coli/Proteus complicated urinary tract infection: Patient completed antibiotic regimen Infectious disease recommending Rocephin for 3 weeks, stopped 10/18/16 Repeat culture indicated Kat albicans, enterococcus faecalis Status post Fluconazole for 3 days Bowel regimen with history of constipation. Monitor ostomy output. Whitney-Colace daily, Dulcolax as needed Neurogenic Bladder: Secondary to Paraplegia. Suprapubic catheter to be changed monthly last changed 11/07/16 Paraplegia: At baseline. Continue home medications. Trapeze setup in place Multi-Podus boots PT eval, recommends SNF, case management assisting. --Consulted OT who made recommendations for wheelchair. Recommendations given to case management to obtain wheelchair for patient DVT Prophylaxis: SCD/Teds/lovenox. Discharge Planning Discharge planning per case management. Sergei Larose Nov 17, 2016 10:41
--- NOTE | 2016-11-17 14:39 | PD.PLAS.PN ---
Subjective Remarks Patient without complaints. Vital Signs Date Time Temp Pulse Resp B/P Pulse Ox O2 Delivery O2 Flow Rate FiO2 11/17/16 11:05 18 11/17/16 08:00 96.4 75 20 130/78 96 11/16/16 20:00 97.3 93 20 142/88 96 I/O 11/16/16 11/16/16 11/16/16 11/17/16 11/17/16 11/17/16 07:00 15:00 23:00 07:00 15:00 23:00 Intake Total 240 ml 1340 ml 240 ml Output Total 425 ml 925 ml 701 ml Balance -185 ml 415 ml -461 ml Intake Oral 240 ml 1340 ml 240 ml Output Urine Total 425 ml 925 ml 700 ml Stool Total 1 ml # Bowel Movements 0 0 1 Exam Findings The wounds are healing in. They are almost closed. No necrotic material was seen. Plan Impression: The patient's wounds have been healing well. Plan: We will start irrigating the wound with Dakin solution as well as clean the surrounding areas with Hibiclens. Marialuisa Williamson MD Nov 17, 2016 14:38
[2016-11-17] MEDS: ENOXAPARIN SODIUM 40 MG/0.4 ML SYRINGE SQ SCH (16:20)
[2016-11-17 20:00] VITALS: BP 119/79; PULSE 82; RESP 20; TEMP 96.8; O2SAT 98
[2016-11-17] MEDS: diphenhydrAMINE HCL 25 MG CAP PO PRN (22:12)
[2016-11-17] MEDS: ALPRAZolam 1 MG TAB PO PRN (22:13)
[2016-11-18 08:00] VITALS: BP 146/86; PULSE 85; RESP 20; TEMP 96.6; O2SAT 96
[2016-11-18] MEDS: HYDROmorphone HCL 4 MG TAB PO PRN ×3 (08:47→22:33)
[2016-11-18] MEDS: GABAPENTIN 400 MG CAP PO SCH ×3 (08:47→18:45)
[2016-11-18] MEDS: FERROUS SULFATE 325 MG (65 MG ELEMENTAL IRON) TAB PO SCH ×2 (08:47→18:45)
[2016-11-18] MEDS: DOCUSATE SODIUM 50 MG/SENNA 8.6 MG TAB PO SCH (08:47)
[2016-11-18] MEDS: PANTOPRAZOLE SOD 40 MG DELAYED RELEASE TAB PO SCH (08:47)
[2016-11-18] MEDS: LACTIC ACID (AMMONIUM LACTATE) 12% LOTION 225 GM BTL TOPICAL SCH ×2 (08:48→21:43)
[2016-11-18] MEDS: HYDROCORTISONE 1% CREAM 30 GM TOPICAL SCH (08:48)
[2016-11-18] MEDS: SODIUM HYPOCHLORITE 0.25% 500 ML BTL TOPICAL SCH (08:51)
--- NOTE | 2016-11-18 12:57 | HHI.PR ---
Subjective Remarks Patient seen and examined today in follow-up for multiple skin wounds and ulcerations. Patient denies any new complaints. No change in clinical status. Objective Vitals Vital Signs Date Time Temp Pulse Resp B/P Pulse Ox O2 Delivery O2 Flow Rate FiO2 11/18/16 09:47 18 11/18/16 08:00 96.6 85 20 146/86 96 11/17/16 20:00 96.8 82 20 119/79 98 I/O 11/17/16 11/17/16 11/17/16 11/18/16 11/18/16 11/18/16 07:00 15:00 23:00 07:00 15:00 23:00 Intake Total 240 ml 950 ml 720 ml 720 ml Output Total 701 ml 650 ml 950 ml 700 ml Balance -461 ml 300 ml -230 ml 20 ml Intake Oral 240 ml 950 ml 720 ml 720 ml Output Urine Total 700 ml 650 ml 950 ml 700 ml Stool Total 1 ml # Bowel Movements 1 Objective Remarks GENERAL: Well-developed, well-nourished, in no acute distress. alert and orientated HEENT: Head is normocephalic without any lesions or masses noted. Facial features are symmetric. Eyes: Extraocular muscles are intact. Conjunctivae were clear. NECK: Supple without any masses. Trachea midline no deviation. No JVD, CARDIAC: Regular rhythm, regular rate. S1/S2 are heard. No murmurs gallops or rubs. LUNGS: Clear to auscultation bilaterally. No wheeze, rhonchi or rales. No use of accessory muscles on inspiration or expiration. ABDOMEN: Soft, nontender. Nondistended. Bowel sounds heard in all 4 quadrants. No organomegaly or masses. Negative rebound, negative guarding. Suprapubic catheter in place without any signs of infection. Colostomy noted EXTREMITIES: No edema, pulses are equal bilaterally. No cyanosis or clubbing NEUROLOGY: Mood and affect appear appropriate. Cranial nerves II through XII grossly intact. Procedures Debridement Urinary Catheter: No Date of Insertion: Nov 07, 2016 Vascular Central Line Catheter: Yes Assessment to: Continue Date of Insertion: Oct 05, 2016 Date of Removal: Oct 30, 2016 A/P Assessment and Plan Mr. Byrd is a 35-year-old male with PMH of Anxiety, Paraplegia, Neurogenic Bladder s/p Suprapubic Cath, Chronic UTI and Chronic Sacral Decubitus Ulcer who presented for evaluation of sacral wound. Stage IV Chronic Sacral, trochanter, scrotal Ulcer in a paraplegic patient, Present at time of admission. Wound care nurse re-consulted, appreciate recommendations, and continue managing wound Plastic surgery reevaluated the patient and indicates that wound are healing well. They made further recommendations. Wound VAC placement with Veraflow, 10/11. Wound VAC changes M/W/F Plastic surgery did perform excisional debridement of chronic decubitus of left trochanter, sacrum, right ischium, bases scrotal wound. 09/07/16 wound care orders written by plastic surgery Infectious disease consulted because of wound cultures with Proteus mirabilis, MRSA. Daptomycin was continued for 3 week duration for eradication. Pain control Dilaudid 4 mg by mouth every 4 hours as needed for pain E Coli/Proteus complicated urinary tract infection: Patient completed antibiotic regimen Infectious disease recommending Rocephin for 3 weeks, stopped 10/18/16 Repeat culture indicated Kat albicans, enterococcus faecalis Status post Fluconazole for 3 days Bowel regimen with history of constipation. Monitor ostomy output. Whitney-Colace daily, Dulcolax as needed Neurogenic Bladder: Secondary to Paraplegia. Suprapubic catheter to be changed monthly last changed 11/07/16 Paraplegia: At baseline. Continue home medications. Trapeze setup in place Multi-Podus boots PT eval, recommends SNF, case management assisting. --Consulted OT who made recommendations for wheelchair. Recommendations given to case management to obtain wheelchair for patient DVT Prophylaxis: SCD/Teds/lovenox. Discharge Planning Discharge planning per case management. Sergei Larose Nov 18, 2016 12:57
[2016-11-18] MEDS: ENOXAPARIN SODIUM 40 MG/0.4 ML SYRINGE SQ SCH (16:31)
[2016-11-18 20:00] VITALS: BP 130/80; PULSE 99; RESP 20; TEMP 96.2; O2SAT 96
[2016-11-18] MEDS: diphenhydrAMINE HCL 25 MG CAP PO PRN (22:33)
[2016-11-18] MEDS: ALPRAZolam 1 MG TAB PO PRN (22:33)
[2016-11-19 08:00] VITALS: BP 128/76; PULSE 94; RESP 20; TEMP 97.2; O2SAT 96
[2016-11-19] MEDS: LACTIC ACID (AMMONIUM LACTATE) 12% LOTION 225 GM BTL TOPICAL SCH ×2 (09:00→21:00)
[2016-11-19] MEDS: HYDROCORTISONE 1% CREAM 30 GM TOPICAL SCH (09:00)
[2016-11-19] MEDS: FERROUS SULFATE 325 MG (65 MG ELEMENTAL IRON) TAB PO SCH ×2 (10:08→16:25)
[2016-11-19] MEDS: HYDROmorphone HCL 4 MG TAB PO PRN ×3 (10:08→20:42)
[2016-11-19] MEDS: SODIUM HYPOCHLORITE 0.25% 500 ML BTL TOPICAL SCH (10:08)
[2016-11-19] MEDS: PANTOPRAZOLE SOD 40 MG DELAYED RELEASE TAB PO SCH (10:08)
[2016-11-19] MEDS: GABAPENTIN 400 MG CAP PO SCH ×3 (10:09→16:26)
[2016-11-19] MEDS: DOCUSATE SODIUM 50 MG/SENNA 8.6 MG TAB PO SCH (10:09)
[2016-11-19] MEDS: ALPRAZolam 1 MG TAB PO PRN ×2 (10:09→20:42)
--- NOTE | 2016-11-19 11:25 | HHI.PR ---
Subjective Remarks Patient seen and examined today in follow-up for multiple sacral, trochanter, ischial wounds. Patient still with wound VAC in place. Patient denies any new complaints. Objective Vitals Vital Signs Date Time Temp Pulse Resp B/P Pulse Ox O2 Delivery O2 Flow Rate FiO2 11/19/16 11:17 18 11/19/16 08:00 97.2 94 20 128/76 96 11/18/16 20:00 96.2 99 20 130/80 96 I/O 11/18/16 11/18/16 11/18/16 11/19/16 11/19/16 11/19/16 06:59 14:59 22:59 06:59 14:59 22:59 Intake Total 720 ml 240 ml 720 ml 720 ml Output Total 700 ml 1150 ml 1000 ml 850 ml Balance 20 ml -910 ml -280 ml -130 ml Intake Oral 720 ml 240 ml 720 ml 720 ml Output Urine Total 700 ml 1150 ml 1000 ml 750 ml Stool Total 0 ml 100 ml Objective Remarks GENERAL: Well-developed, well-nourished, in no acute distress. alert and orientated HEENT: Head is normocephalic without any lesions or masses noted. Facial features are symmetric. Eyes: Extraocular muscles are intact. Conjunctivae were clear. NECK: Supple without any masses. Trachea midline no deviation. No JVD, CARDIAC: Regular rhythm, regular rate. S1/S2 are heard. No murmurs gallops or rubs. LUNGS: Clear to auscultation bilaterally. No wheeze, rhonchi or rales. No use of accessory muscles on inspiration or expiration. ABDOMEN: Soft, nontender. Nondistended. Bowel sounds heard in all 4 quadrants. No organomegaly or masses. Negative rebound, negative guarding. Suprapubic catheter in place without any signs of infection. Colostomy noted EXTREMITIES: No edema, pulses are equal bilaterally. No cyanosis or clubbing NEUROLOGY: Mood and affect appear appropriate. Cranial nerves II through XII grossly intact. Procedures Debridement Urinary Catheter: Yes Assessment to: Continue Date of Insertion: Nov 07, 2016 Vascular Central Line Catheter: No Date of Insertion: Oct 05, 2016 Date of Removal: Oct 30, 2016 A/P Assessment and Plan Mr. Byrd is a 35-year-old male with PMH of Anxiety, Paraplegia, Neurogenic Bladder s/p Suprapubic Cath, Chronic UTI and Chronic Sacral Decubitus Ulcer who presented for evaluation of sacral wound. Stage IV Chronic Sacral, trochanter, scrotal Ulcer in a paraplegic patient, Present at time of admission. Wound care nurse re-consulted, appreciate recommendations, and continue managing wound Plastic surgery reevaluated the patient and indicates that wound are healing well. They made further recommendations. Wound VAC placement with Veraflow, 10/11. Wound VAC changes M/W/F Plastic surgery did perform excisional debridement of chronic decubitus of left trochanter, sacrum, right ischium, bases scrotal wound. 09/07/16 wound care orders written by plastic surgery Infectious disease consulted because of wound cultures with Proteus mirabilis, MRSA. Daptomycin was continued for 3 week duration for eradication. Pain control Dilaudid 4 mg by mouth every 4 hours as needed for pain E Coli/Proteus complicated urinary tract infection: Patient completed antibiotic regimen Infectious disease recommending Rocephin for 3 weeks, stopped 10/18/16 Repeat culture indicated Kat albicans, enterococcus faecalis Status post Fluconazole for 3 days Bowel regimen with history of constipation. Monitor ostomy output. Whitney-Colace daily, Dulcolax as needed Neurogenic Bladder: Secondary to Paraplegia. Suprapubic catheter to be changed monthly last changed 11/07/16 Paraplegia: At baseline. Continue home medications. Trapeze setup in place Multi-Podus boots PT eval, recommends SNF, case management assisting. --Consulted OT who made recommendations for wheelchair. Recommendations given to case management to obtain wheelchair for patient DVT Prophylaxis: SCD/Teds/lovenox. Discharge Planning Discharge planning per case management. Sergei Larose Nov 19, 2016 11:25
[2016-11-19] MEDS: ENOXAPARIN SODIUM 40 MG/0.4 ML SYRINGE SQ SCH (16:25)
[2016-11-19 20:00] VITALS: BP 131/87; PULSE 78; RESP 20; TEMP 95.5; O2SAT 96
[2016-11-19] MEDS: diphenhydrAMINE HCL 25 MG CAP PO PRN (20:43)
[2016-11-20] MEDS: HYDROmorphone HCL 4 MG TAB PO PRN ×3 (04:50→20:58)
[2016-11-20] MEDS: diphenhydrAMINE HCL 25 MG CAP PO PRN ×2 (04:50→20:58)
[2016-11-20 08:00] VITALS: BP 128/91; PULSE 67; RESP 17; TEMP 97.8; O2SAT 95
[2016-11-20] MEDS: LACTIC ACID (AMMONIUM LACTATE) 12% LOTION 225 GM BTL TOPICAL SCH ×2 (09:00→20:59)
[2016-11-20] MEDS: FERROUS SULFATE 325 MG (65 MG ELEMENTAL IRON) TAB PO SCH ×2 (09:12→17:11)
[2016-11-20] MEDS: GABAPENTIN 400 MG CAP PO SCH ×3 (09:13→17:12)
[2016-11-20] MEDS: HYDROCORTISONE 1% CREAM 30 GM TOPICAL SCH (09:13)
[2016-11-20] MEDS: PANTOPRAZOLE SOD 40 MG DELAYED RELEASE TAB PO SCH (09:13)
[2016-11-20] MEDS: DOCUSATE SODIUM 50 MG/SENNA 8.6 MG TAB PO SCH (09:13)
[2016-11-20] MEDS: SODIUM HYPOCHLORITE 0.25% 500 ML BTL TOPICAL SCH (13:05)
--- NOTE | 2016-11-20 13:49 | HHI.PR ---
Subjective Remarks Patient seen and examined today for follow-up on multiple wounds. Patient resting comfortably. Denies any new complaints. Discussed with him need to start becoming more active. Objective Vitals Vital Signs Date Time Temp Pulse Resp B/P Pulse Ox O2 Delivery O2 Flow Rate FiO2 11/20/16 08:00 97.8 67 17 128/91 95 11/20/16 05:50 16 11/19/16 20:00 95.5 78 20 131/87 96 I/O 11/19/16 11/19/16 11/19/16 11/20/16 11/20/16 11/20/16 07:00 15:00 23:00 07:00 15:00 23:00 Intake Total 720 ml 1200 ml 720 ml 480 ml Output Total 850 ml 650 ml 1000 ml 500 ml 250 ml Balance -130 ml 550 ml -280 ml -20 ml -250 ml Intake Oral 720 ml 1200 ml 720 ml 480 ml Output Urine Total 750 ml 650 ml 1000 ml 500 ml 250 ml Stool Total 100 ml 0 ml 0 ml Objective Remarks GENERAL: Well-developed, well-nourished, in no acute distress. alert and orientated HEENT: Head is normocephalic without any lesions or masses noted. Facial features are symmetric. Eyes: Extraocular muscles are intact. Conjunctivae were clear. NECK: Supple without any masses. Trachea midline no deviation. No JVD, CARDIAC: Regular rhythm, regular rate. S1/S2 are heard. No murmurs gallops or rubs. LUNGS: Clear to auscultation bilaterally. No wheeze, rhonchi or rales. No use of accessory muscles on inspiration or expiration. ABDOMEN: Soft, nontender. Nondistended. Bowel sounds heard in all 4 quadrants. No organomegaly or masses. Negative rebound, negative guarding. Suprapubic catheter in place without any signs of infection. Colostomy noted EXTREMITIES: No edema, pulses are equal bilaterally. No cyanosis or clubbing NEUROLOGY: Mood and affect appear appropriate. Cranial nerves II through XII grossly intact. Procedures Debridement Urinary Catheter: Yes Assessment to: Continue Peterson insert reason: Prolonged Immobilization Date of Insertion: Nov 07, 2016 Vascular Central Line Catheter: No Date of Insertion: Oct 05, 2016 Date of Removal: Oct 30, 2016 A/P Assessment and Plan Mr. Byrd is a 35-year-old male with PMH of Anxiety, Paraplegia, Neurogenic Bladder s/p Suprapubic Cath, Chronic UTI and Chronic Sacral Decubitus Ulcer who presented for evaluation of sacral wound. Stage IV Chronic Sacral, trochanter, scrotal Ulcer in a paraplegic patient, Present at time of admission. Wound care nurse re-consulted, appreciate recommendations, and continue managing wound Plastic surgery reevaluated the patient and indicates that wound are healing well. They made further recommendations. Wound VAC placement with Verafraphael, 10/11. Wound VAC changes M/W/F Plastic surgery did perform excisional debridement of chronic decubitus of left trochanter, sacrum, right ischium, bases scrotal wound. 09/07/16 wound care orders written by plastic surgery Infectious disease consulted because of wound cultures with Proteus mirabilis, MRSA. Daptomycin was continued for 3 week duration for eradication. / Pain control Dilaudid 4 mg by mouth every 4 hours as needed for pain E Coli/Proteus complicated urinary tract infection: Patient completed antibiotic regimen Infectious disease recommending Rocephin for 3 weeks, stopped 10/18/16 Repeat culture indicated Kat albicans, enterococcus faecalis Status post Fluconazole for 3 days Bowel regimen with history of constipation. Monitor ostomy output. Whitney-Colace daily, Dulcolax as needed Neurogenic Bladder: Secondary to Paraplegia. Suprapubic catheter to be changed monthly last changed 11/07/16 Paraplegia: At baseline. Continue home medications. Trapeze setup in place Multi-Podus boots PT eyal, recommends SNF, case management assisting. --Consulted OT who made recommendations for wheelchair. Recommendations given to case management to obtain wheelchair for patient Start getting patient up in stretcher chair. DVT Prophylaxis: SCD/Teds/lovenox. Discharge Planning Discharge planning per case management. Sergei Larose November 20, 2016 13:49
[2016-11-20] MEDS: ENOXAPARIN SODIUM 40 MG/0.4 ML SYRINGE SQ SCH (17:11)
[2016-11-20 20:00] VITALS: BP 137/83; PULSE 76; RESP 20; TEMP 96.8; O2SAT 99
[2016-11-20] MEDS: ALPRAZolam 1 MG TAB PO PRN (20:58)
[2016-11-21] MEDS: HYDROmorphone HCL 4 MG TAB PO PRN ×3 (03:10→20:25)
[2016-11-21] MEDS: diphenhydrAMINE HCL 25 MG CAP PO PRN ×2 (03:10→20:24)
[2016-11-21 08:00] VITALS: BP 127/85; PULSE 78; RESP 18; TEMP 96.6; O2SAT 97
[2016-11-21] MEDS: SODIUM HYPOCHLORITE 0.25% 500 ML BTL TOPICAL SCH (09:00)
[2016-11-21] MEDS: DOCUSATE SODIUM 50 MG/SENNA 8.6 MG TAB PO SCH (09:00)
[2016-11-21] MEDS: PANTOPRAZOLE SOD 40 MG DELAYED RELEASE TAB PO SCH (10:01)
[2016-11-21] MEDS: GABAPENTIN 400 MG CAP PO SCH ×3 (10:01→17:29)
[2016-11-21] MEDS: FERROUS SULFATE 325 MG (65 MG ELEMENTAL IRON) TAB PO SCH ×2 (10:01→17:28)
[2016-11-21] MEDS: LACTIC ACID (AMMONIUM LACTATE) 12% LOTION 225 GM BTL TOPICAL SCH ×2 (10:04→20:30)
[2016-11-21] MEDS: HYDROCORTISONE 1% CREAM 30 GM TOPICAL SCH (10:04)
--- NOTE | 2016-11-21 16:10 | HHI.PR ---
Subjective Remarks Patient evaluated this morning. Follow-up for decubitus ulcers. No acute issues. Objective Vitals Vital Signs Date Time Temp Pulse Resp B/P Pulse Ox O2 Delivery O2 Flow Rate FiO2 11/21/16 08:00 96.6 78 18 127/85 97 11/20/16 20:00 96.8 76 20 137/83 99 I/O 11/20/16 11/20/16 11/20/16 11/21/16 11/21/16 11/21/16 07:00 15:00 23:00 07:00 15:00 23:00 Intake Total 480 ml 520 ml 500 ml 480 ml 660 ml Output Total 500 ml 250 ml 450 ml 400 ml 750 ml Balance -20 ml 270 ml 50 ml 80 ml -90 ml Intake Oral 480 ml 520 ml 500 ml 480 ml 660 ml Output Urine Total 500 ml 250 ml 450 ml 400 ml 750 ml Stool Total 0 ml # Bowel Movements 1 1 0 Objective Remarks GENERAL: Well-nourished well developed patient in no apparent distress. CARDIOVASCULAR: Regular rate and rhythm. RESPIRATORY: No accessory muscle use. Clear to auscultation. Breath sounds equal bilaterally. GASTROINTESTINAL: Abdomen distended, but soft, non-tender. NEUROLOGICAL: Awake and alert. Normal speech. PSYCHIATRIC: Appropriate mood and affect. Procedures Debridement Urinary Catheter: Yes Assessment to: Continue Peterson insert reason: Stage III/IV Press Ulcer Date of Insertion: Nov 07, 2016 Vascular Central Line Catheter: No Date of Insertion: Oct 05, 2016 Date of Removal: Oct 30, 2016 A/P Problem List: (1) Sacral decubitus ulcer ICD Code: L89.159 Status: Chronic (2) UTI (urinary tract infection) ICD Code: N39.0 Status: Resolved (3) Constipation ICD Code: K59.00 Status: Resolved (4) Paraplegia ICD Code: G82.20 Status: Chronic (5) Neurogenic bladder ICD Code: N31.9 Status: Chronic Assessment and Plan Mr. Byrd is a 35-year-old male with PMH of Anxiety, Paraplegia, Neurogenic Bladder s/p Suprapubic Cath, Chronic UTI and Chronic Sacral Decubitus Ulcer who presented for evaluation of sacral wound. Stage IV Chronic Sacral, trochanter, scrotal Ulcer in a paraplegic patient, Present at time of admission. Wound care nurse re-consulted, appreciate recommendations, and continue managing wound Plastic surgery reevaluated the patient and indicates that wound are healing well. They made further recommendations. Wound VAC placement with Veraflow, 10/11. Wound VAC changes M/W/F Plastic surgery did perform excisional debridement of chronic decubitus of left trochanter, sacrum, right ischium, bases scrotal wound. 09/07/16 wound care orders written by plastic surgery Infectious disease consulted because of wound cultures with Proteus mirabilis, MRSA. Daptomycin was continued for 3 week duration for eradication. / Pain control Dilaudid 4 mg by mouth every 4 hours as needed for pain E Coli/Proteus complicated urinary tract infection: Patient completed antibiotic regimen Infectious disease recommending Rocephin for 3 weeks, stopped 10/18/16 Repeat culture indicated Kat albicans, enterococcus faecalis Status post Fluconazole for 3 days Bowel regimen with history of constipation. Monitor ostomy output. Whitney-Colace daily, Dulcolax as needed Neurogenic Bladder: Secondary to Paraplegia. Suprapubic catheter to be changed monthly last changed 11/07/16 Paraplegia: At baseline. Continue home medications. Trapeze setup in place Multi-Podus boots PT eval, recommends SNF, case management assisting. --Consulted OT who made recommendations for wheelchair. Recommendations given to case management to obtain wheelchair for patient Start getting patient up in stretcher chair. R upper back wounds: First noted on 11/11. Resemble cigarette banks; do not appear as pressure wounds; possible ruptured blister or abscess? but appearance does not really even fit with that. -Wound nurse consulted for management. DVT Prophylaxis: SCD/Teds/lovenox. Discharge Planning PT recommends rehabilitation, wheelchair with removal arms and legs. No OT recommended. 11/03: Awaiting [facility] SNFs to evaluate for placement. 11/21: Facility in [place] may consider. Problem Qualifiers (1) Sacral decubitus ulcer: Qualified Code: L89.154 - Decubitus ulcer of sacral region, stage 4 (2) UTI (urinary tract infection): Lani Jensen November 21, 2016 16:10
[2016-11-21] MEDS: ENOXAPARIN SODIUM 40 MG/0.4 ML SYRINGE SQ SCH (16:23)
[2016-11-21 20:00] VITALS: BP 129/67; PULSE 90; RESP 21; TEMP 96.6; O2SAT 97
[2016-11-21] MEDS: ALPRAZolam 1 MG TAB PO PRN (20:25)
[2016-11-22 08:00] VITALS: BP 136/88; PULSE 88; RESP 20; TEMP 98.4; O2SAT 97
[2016-11-22] MEDS: DOCUSATE SODIUM 50 MG/SENNA 8.6 MG TAB PO SCH (09:00)
[2016-11-22] MEDS: PANTOPRAZOLE SOD 40 MG DELAYED RELEASE TAB PO SCH (09:00)
--- NOTE | 2016-11-22 09:43 | HHI.PR ---
Subjective Remarks Pt seen for follow-up of his decubitus ulcer. Pt was dozing at the start of the visit yet easily awakened. He denied pain, discomfort, cough, nausea, vomiting, or diarrhea. No other issues noted or reported. Objective Vitals Vital Signs Date Time Temp Pulse Resp B/P Pulse Ox O2 Delivery O2 Flow Rate FiO2 11/22/16 08:00 98.4 88 20 136/88 97 11/21/16 20:00 96.6 90 21 129/67 97 I/O 11/21/16 11/21/16 11/21/16 11/22/16 11/22/16 11/22/16 07:00 15:00 23:00 07:00 15:00 23:00 Intake Total 480 ml 660 ml 720 ml 240 ml Output Total 400 ml 750 ml 825 ml 250 ml Balance 80 ml -90 ml -105 ml -10 ml Intake Oral 480 ml 660 ml 720 ml 240 ml Output Urine Total 400 ml 750 ml 825 ml 250 ml # Bowel Movements 0 Other Results No labs obtained within the past 24 hours. Imaging Last image obtained was 10/13/16. Objective Remarks GENERAL: pt was dozing when first encountered. He quickly awakened and was pleasant and cooperative. SKIN: Warm and dry. Wound vac noted to be attached to pt's abdomen. HEAD: Normocephalic. EYES: No scleral icterus. No injection or drainage. NECK: Supple, trachea midline. No JVD or lymphadenopathy. CARDIOVASCULAR: Regular rate and rhythm without murmurs, gallops, or rubs. RESPIRATORY: Breath sounds equal bilaterally. No accessory muscle use. GASTROINTESTINAL: Abdomen soft, non-tender, nondistended. Bowel sounds reduced all quadrants. MUSCULOSKELETAL: No cyanosis, or edema. Psychiatric: mood and affect congruent without overt signs of anxiety, depression as well as gross signs/symptoms of psychosis Procedures Debridement Medications and IVs Current Medications Medications (Trade) Dose Ordered Sig/Haja Route Start Time Stop Time Status Last Admin (Dulcolax Supp) 10 mg DAILY PRN PA 06/08/16 20:00 (Tylenol) 650 mg Q6H PRN PO 06/08/16 20:00 10/17/16 13:35 (Xanax) 1 mg Q6H PRN PO 06/08/16 20:00 11/21/16 20:25 (Ferrous Sulfate) 325 mg BIDPC PO 06/09/16 09:00 11/21/16 17:28 (Neurontin) 800 mg TID PO 06/09/16 09:00 11/21/16 17:29 (ZyPREXA) 15 mg HS PO 06/08/16 21:00 11/21/16 20:24 (Protonix) 40 mg DAILY PO 06/09/16 09:00 11/21/16 10:01 (Benadryl) 25 mg Q4H PRN PO 06/23/16 16:00 11/21/16 20:24 (Whitney-Colace) 1 tab DAILY PO 07/11/16 09:00 11/20/16 09:13 (Lac-Hydrin 12% Lotion) 1 applic BID TOPICAL 07/24/16 11:00 11/21/16 20:30 (Zofran Odt) 4 mg Q6H PRN PO 08/11/16 07:15 (Hydrocortisone 1% Cream) 1 applic DAILY TOPICAL 08/18/16 14:00 11/21/16 10:04 (Silver Nitrate Applicators) 1 appl DAILY PRN TOPICAL 08/22/16 10:45 (Lovenox Inj) 40 mg Q24H SQ 08/28/16 16:00 11/21/16 16:23 (Dilaudid) 4 mg Q6HR PRN PO 10/09/16 11:45 11/21/16 20:25 (Dakin'S 0.25% Soln) 500 ml DAILY TOPICAL 11/18/16 09:00 11/20/16 13:05 Urinary Catheter: Yes Assessment to: Continue Peterson insert reason: Stage III/IV Press Ulcer Date of Insertion: Nov 07, 2016 Vascular Central Line Catheter: No Date of Insertion: Oct 05, 2016 Date of Removal: Oct 30, 2016 A/P Problem List: (1) Sacral decubitus ulcer ICD Code: L89.159 Status: Chronic (2) UTI (urinary tract infection) ICD Code: N39.0 Status: Resolved (3) Constipation ICD Code: K59.00 Status: Resolved (4) Paraplegia ICD Code: G82.20 Status: Chronic (5) Neurogenic bladder ICD Code: N31.9 Status: Chronic Assessment and Plan Mr. Byrd is a 35-year-old male with PMH of Anxiety, Paraplegia, Neurogenic Bladder s/p Suprapubic Cath, Chronic UTI and Chronic Sacral Decubitus Ulcer who presented for evaluation of sacral wound. Stage IV Chronic Sacral, trochanter, scrotal Ulcer in a paraplegic patient, Present at time of admission. Wound care nurse re-consulted, appreciate recommendations, and continue managing wound Plastic surgery reevaluated the patient and indicates that wound are healing well. They made further recommendations. Wound VAC placement with Veraflow, 10/11. Wound VAC changes M/W/F Plastic surgery did perform excisional debridement of chronic decubitus of left trochanter, sacrum, right ischium, bases scrotal wound. 09/07/16 wound care orders written by plastic surgery Plastic surgery saw pt for follow-up on 11/17/16. Infectious disease consulted because of wound cultures with Proteus mirabilis, MRSA. Daptomycin was continued for 3 week duration for eradication. 09/29/ Pain control Dilaudid 4 mg by mouth every 4 hours as needed for pain 11/22/16: pt continues to require Dilaudid as evidenced by 3 administrations noted on 11/21/16. E Coli/Proteus complicated urinary tract infection: Patient completed antibiotic regimen Infectious disease recommending Rocephin for 3 weeks, stopped 10/18/16 Repeat culture indicated Kat albicans, enterococcus faecalis Status post Fluconazole for 3 days Bowel regimen with history of constipation. Monitor ostomy output. Whitney-Colace daily, Dulcolax as needed Neurogenic Bladder: Secondary to Paraplegia. Suprapubic catheter to be changed monthly last changed 11/07/16 Paraplegia: At baseline. Continue home medications. Trapeze setup in place Multi-Podus boots PT eval, recommends SNF, case management assisting. --Consulted OT who made recommendations for wheelchair. Recommendations given to case management to obtain wheelchair for patient Start getting patient up in stretcher chair. R upper back wounds: First noted on 11/11. Resemble cigarette banks; do not appear as pressure wounds; possible ruptured blister or abscess? but appearance does not really even fit with that. -Wound nurse consulted for management. DVT Prophylaxis: SCD/Teds/lovenox. Discharge Planning PT recommends rehabilitation, wheelchair with removal arms and legs. No OT recommended. 11/03: Awaiting [facility] to evaluate for placement. 11/21: Facility in [place] may consider. Problem Qualifiers (1) Sacral decubitus ulcer: Qualified Code: L89.154 - Decubitus ulcer of sacral region, stage 4 (2) UTI (urinary tract infection): Ottoniel Banks Jr. November 22, 2016 09:43
[2016-11-22] MEDS: GABAPENTIN 400 MG CAP PO SCH ×3 (13:00→17:27)
[2016-11-22] MEDS: diphenhydrAMINE HCL 25 MG CAP PO PRN ×2 (13:38→20:28)
[2016-11-22] MEDS: HYDROmorphone HCL 4 MG TAB PO PRN ×2 (13:38→20:28)
[2016-11-22] MEDS: FERROUS SULFATE 325 MG (65 MG ELEMENTAL IRON) TAB PO SCH ×2 (13:38→17:27)
[2016-11-22] MEDS: SODIUM HYPOCHLORITE 0.25% 500 ML BTL TOPICAL SCH (13:41)
[2016-11-22] MEDS: LACTIC ACID (AMMONIUM LACTATE) 12% LOTION 225 GM BTL TOPICAL SCH ×2 (13:41→20:27)
[2016-11-22] MEDS: HYDROCORTISONE 1% CREAM 30 GM TOPICAL SCH (13:41)
[2016-11-22] MEDS: ENOXAPARIN SODIUM 40 MG/0.4 ML SYRINGE SQ SCH (17:26)
[2016-11-22 20:00] VITALS: BP 140/83; PULSE 94; RESP 20; TEMP 97.3; O2SAT 98
[2016-11-22] MEDS: ALPRAZolam 1 MG TAB PO PRN (20:28)
[2016-11-23] MEDS: DOCUSATE SODIUM 50 MG/SENNA 8.6 MG TAB PO SCH (09:00)
[2016-11-23] MEDS: SODIUM HYPOCHLORITE 0.25% 500 ML BTL TOPICAL SCH (09:00)
[2016-11-23] MEDS: diphenhydrAMINE HCL 25 MG CAP PO PRN ×2 (12:40→20:38)
--- NOTE | 2016-11-23 12:51 | HHI.PR ---
Subjective Remarks "I'm fine." Pt seen for continued care while in rehab unit. Pt denied pain, fever, nausea, vomiting, diarrhea, cough, or shortness of breath. Pt without complaints or concerns at this time. Objective Vitals Vital Signs Date Time Temp Pulse Resp B/P Pulse Ox O2 Delivery O2 Flow Rate FiO2 11/22/16 21:28 13 11/22/16 20:00 97.3 94 20 140/83 98 I/O 11/22/16 11/22/16 11/22/16 11/23/16 11/23/16 11/23/16 07:00 15:00 23:00 07:00 15:00 23:00 Intake Total 240 ml 1440 ml 240 ml Output Total 250 ml 1950 ml 500 ml Balance -10 ml -510 ml -260 ml Intake Oral 240 ml 1440 ml 240 ml Output Urine Total 250 ml 1950 ml 500 ml Other Results none Imaging No imaging results within the past 24 hours. Objective Remarks GENERAL: pt was dozing when first encountered. He quickly awakened and was pleasant and cooperative. SKIN: Warm and dry. Note of yesterday indicated pt had a wound vac to abdomen; it is pt's ostomy. HEAD: Normocephalic. EYES: No scleral icterus. No injection or drainage. NECK: Supple, trachea midline. No JVD or lymphadenopathy. CARDIOVASCULAR: Regular rate and rhythm without murmurs, gallops, or rubs. RESPIRATORY: Breath sounds equal bilaterally. No accessory muscle use. GASTROINTESTINAL: Abdomen soft, non-tender, nondistended. Bowel sounds reduced all quadrants. MUSCULOSKELETAL: No cyanosis, or edema. Psychiatric: mood and affect congruent without overt signs of anxiety, depression as well as gross signs/symptoms of psychosis. Procedures Debridement Medications and IVs Current Medications Medications (Trade) Dose Ordered Sig/Haja Route Start Time Stop Time Status Last Admin (Dulcolax Supp) 10 mg DAILY PRN [place] 06/08/16 20:00 (Tylenol) 650 mg Q6H PRN PO 06/08/16 20:00 10/17/16 13:35 (Xanax) 1 mg Q6H PRN PO 06/08/16 20:00 11/22/16 20:28 (Ferrous Sulfate) 325 mg BIDPC PO 06/09/16 09:00 11/22/16 17:27 (Neurontin) 800 mg TID PO 06/09/16 09:00 11/22/16 17:27 (ZyPREXA) 15 mg HS PO 06/08/16 21:00 11/22/16 20:28 (Protonix) 40 mg DAILY PO 06/09/16 09:00 11/22/16 09:00 (Benadryl) 25 mg Q4H PRN PO 06/23/16 16:00 11/22/16 20:28 (Whitney-Colace) 1 tab DAILY PO 07/11/16 09:00 11/20/16 09:13 (Lac-Hydrin 12% Lotion) 1 applic BID TOPICAL 07/24/16 11:00 11/22/16 20:27 (Zofran Odt) 4 mg Q6H PRN PO 08/11/16 07:15 (Hydrocortisone 1% Cream) 1 applic DAILY TOPICAL 08/18/16 14:00 11/22/16 13:41 (Silver Nitrate Applicators) 1 appl DAILY PRN TOPICAL 08/22/16 10:45 (Lovenox Inj) 40 mg Q24H SQ 08/28/16 16:00 11/22/16 17:26 (Dilaudid) 4 mg Q6HR PRN PO 10/09/16 11:45 11/22/16 20:28 (Dakin'S 0.25% Soln) 500 ml DAILY TOPICAL 11/18/16 09:00 11/22/16 13:41 Urinary Catheter: Yes Assessment to: Continue Peterson insert reason: Stage III/IV Press Ulcer Date of Insertion: Nov 07, 2016 Vascular Central Line Catheter: No Date of Insertion: Oct 05, 2016 Date of Removal: Oct 30, 2016 A/P Problem List: (1) Sacral decubitus ulcer ICD Code: L89.159 Status: Chronic (2) UTI (urinary tract infection) ICD Code: N39.0 Status: Resolved (3) Constipation ICD Code: K59.00 Status: Resolved (4) Paraplegia ICD Code: G82.20 Status: Chronic (5) Neurogenic bladder ICD Code: N31.9 Status: Chronic Assessment and Plan Mr. Byrd is a 35-year-old male with PMH of Anxiety, Paraplegia, Neurogenic Bladder s/p Suprapubic Cath, Chronic UTI and Chronic Sacral Decubitus Ulcer who presented for evaluation of sacral wound. Stage IV Chronic Sacral, trochanter, scrotal Ulcer in a paraplegic patient, Present at time of admission. Wound care nurse re-consulted, appreciate recommendations, and continue managing wound Plastic surgery reevaluated the patient and indicates that wound are healing well. They made further recommendations. Wound VAC placement with Veraflow, 10/11. Wound VAC changes M/W/F Plastic surgery did perform excisional debridement of chronic decubitus of left trochanter, sacrum, right ischium, bases scrotal wound. 09/07/16 wound care orders written by plastic surgery Plastic surgery saw pt for follow-up on 11/17/16. Infectious disease consulted because of wound cultures with Proteus mirabilis, MRSA. Daptomycin was continued for 3 week duration for eradication. 09/29/ Pain control Dilaudid 4 mg by mouth every 4 hours as needed for pain 11/22/16: pt continues to require Dilaudid as evidenced by 3 administrations noted on 11/21/16. 11/23/16: pt pain being controlled; received 2 doses of Dilaudid over past 24 hours. E Coli/Proteus complicated urinary tract infection: Patient completed antibiotic regimen Infectious disease recommending Rocephin for 3 weeks, stopped 10/18/16 Repeat culture indicated Kat albicans, enterococcus faecalis Status post Fluconazole. Bowel regimen with history of constipation. Monitor ostomy output. Whitney-Colace daily, Dulcolax as needed Neurogenic Bladder: Secondary to Paraplegia. Suprapubic catheter to be changed monthly last changed 11/07/16 Paraplegia: At baseline. Continue home medications. Trapeze setup in place Multi-Podus boots PT eval, recommends SNF, case management assisting. --Consulted OT who made recommendations for wheelchair. Recommendations given to case management to obtain wheelchair for patient Start getting patient up in stretcher chair. R upper back wounds: First noted on 11/11. Resemble cigarette banks; do not appear as pressure wounds; possible ruptured blister or abscess? but appearance does not really even fit with that. -Wound nurse consulted for management. DVT Prophylaxis: SCD/Teds/lovenox. Discharge Planning PT recommends rehabilitation, wheelchair with removal arms and legs. No OT recommended. 11/03: [facility] 11/21: Facility in [place] may consider. Problem Qualifiers (1) Sacral decubitus ulcer: Qualified Code: L89.154 - Decubitus ulcer of sacral region, stage 4 (2) UTI (urinary tract infection): Ottoniel Banks Jr. November 23, 2016 12:51
[2016-11-23] MEDS: GABAPENTIN 400 MG CAP PO SCH ×3 (13:00→16:58)
[2016-11-23] MEDS: FERROUS SULFATE 325 MG (65 MG ELEMENTAL IRON) TAB PO SCH ×2 (13:05→16:58)
[2016-11-23] MEDS: PANTOPRAZOLE SOD 40 MG DELAYED RELEASE TAB PO SCH (13:05)
[2016-11-23] MEDS: LACTIC ACID (AMMONIUM LACTATE) 12% LOTION 225 GM BTL TOPICAL SCH ×2 (13:08→21:00)
[2016-11-23] MEDS: HYDROCORTISONE 1% CREAM 30 GM TOPICAL SCH (13:08)
[2016-11-23 15:24] VITALS: BP 135/65; PULSE 74; RESP 16; TEMP 96.6; O2SAT 98
[2016-11-23] MEDS: ENOXAPARIN SODIUM 40 MG/0.4 ML SYRINGE SQ SCH (16:57)
[2016-11-23 20:00] VITALS: BP 130/72; PULSE 85; RESP 21; TEMP 96.9; O2SAT 97
[2016-11-23] MEDS: HYDROmorphone HCL 4 MG TAB PO PRN (20:38)
[2016-11-23] MEDS: ALPRAZolam 1 MG TAB PO PRN (20:38)
[2016-11-24 09:04] VITALS: BP 137/79; PULSE 81; RESP 18; TEMP 97.5; O2SAT 97
[2016-11-24] MEDS: DOCUSATE SODIUM 50 MG/SENNA 8.6 MG TAB PO SCH (09:28)
[2016-11-24] MEDS: GABAPENTIN 400 MG CAP PO SCH ×3 (09:28→17:39)
[2016-11-24] MEDS: PANTOPRAZOLE SOD 40 MG DELAYED RELEASE TAB PO SCH (09:28)
[2016-11-24] MEDS: HYDROmorphone HCL 4 MG TAB PO PRN ×3 (09:28→22:47)
[2016-11-24] MEDS: FERROUS SULFATE 325 MG (65 MG ELEMENTAL IRON) TAB PO SCH ×2 (09:28→17:38)
[2016-11-24] MEDS: LACTIC ACID (AMMONIUM LACTATE) 12% LOTION 225 GM BTL TOPICAL SCH ×2 (09:29→22:51)
[2016-11-24] MEDS: HYDROCORTISONE 1% CREAM 30 GM TOPICAL SCH (09:29)
[2016-11-24] MEDS: SODIUM HYPOCHLORITE 0.25% 500 ML BTL TOPICAL SCH (09:29)
--- NOTE | 2016-11-24 11:09 | HHI.PR ---
Subjective Remarks "I am fine." Pt being followed for decubitus ulcer issues. Pt denied anxiety issues and his anxiety is well controlled. Pain was reported at site of wound vac, "no where else." Pt denied fever, cough, shortness of breath, nausea, vomiting, diarrhea. Pt denied ostomy issues: said the ostomy was pursued due to the presence of his decubitus ulcers and "they didn;t want them to get infected." Pt stated the ostomy is to be reversed "once my ulcers get healed." Pt denied any other issues. Objective Vitals Vital Signs Date Time Temp Pulse Resp B/P Pulse Ox O2 Delivery O2 Flow Rate FiO2 11/24/16 09:04 97.5 81 18 137/79 97 11/23/16 21:38 16 11/23/16 20:00 96.9 85 21 130/72 97 11/23/16 15:24 96.6 74 16 135/65 98 I/O 11/23/16 11/23/16 11/23/16 11/24/16 11/24/16 11/24/16 07:00 15:00 23:00 07:00 15:00 23:00 Intake Total 240 ml 480 ml 1880 ml 720 ml Output Total 500 ml 850 ml 450 ml Balance -260 ml 480 ml 1030 ml 270 ml Intake Oral 240 ml 480 ml 1880 ml 720 ml Output Urine Total 500 ml 800 ml 450 ml Stool Total 50 ml 0 ml Other Results None. Imaging No imaging ordered/resulted within the past 24 hours. Objective Remarks GENERAL: pt was dozing when first encountered. He quickly awakened and was pleasant and cooperative. SKIN: Warm and dry. Ostomy noted, dry. HEAD: Normocephalic. EYES: No scleral icterus. No injection or drainage. NECK: Supple, trachea midline. No JVD or lymphadenopathy. CARDIOVASCULAR: Regular rate and rhythm without murmurs, gallops, or rubs. pulses present in all limbs. RESPIRATORY: Breath sounds equal bilaterally. No accessory muscle use. GASTROINTESTINAL: Abdomen soft, non-tender, nondistended. Bowel sounds reduced all quadrants. MUSCULOSKELETAL: No cyanosis, or edema. Psychiatric: mood and affect congruent without overt signs of anxiety, depression as well as gross signs/symptoms of psychosis. Procedures Debridement Urinary Catheter: Yes Assessment to: Continue Peterson insert reason: Stage III/IV Press Ulcer Date of Insertion: Nov 07, 2016 Vascular Central Line Catheter: No Date of Insertion: Oct 05, 2016 Date of Removal: Oct 30, 2016 A/P Problem List: (1) Sacral decubitus ulcer ICD Code: L89.159 Status: Chronic (2) UTI (urinary tract infection) ICD Code: N39.0 Status: Resolved (3) Constipation ICD Code: K59.00 Status: Resolved (4) Paraplegia ICD Code: G82.20 Status: Chronic (5) Neurogenic bladder ICD Code: N31.9 Status: Chronic Assessment and Plan Mr. Byrd is a 35-year-old male with PMH of Anxiety, Paraplegia, Neurogenic Bladder s/p Suprapubic Cath, Chronic UTI and Chronic Sacral Decubitus Ulcer who presented for evaluation of sacral wound. Stage IV Chronic Sacral, trochanter, scrotal Ulcer in a paraplegic patient, Present at time of admission. Wound care nurse re-consulted, appreciate recommendations, and continue managing wound Plastic surgery reevaluated the patient and indicates that wound are healing well. They made further recommendations. Wound VAC placement with Shanthi, 10/11. Wound VAC changes M/W/F Plastic surgery did perform excisional debridement of chronic decubitus of left trochanter, sacrum, right ischium, bases scrotal wound. 09/07/16 wound care orders written by plastic surgery Plastic surgery saw pt for follow-up on 11/17/16. Infectious disease consulted because of wound cultures with Proteus mirabilis, MRSA. Daptomycin was continued for 3 week duration for eradication. Pain control Dilaudid 4 mg by mouth every 4 hours as needed for pain 11/22/16: pt continues to require Dilaudid as evidenced by 3 administrations noted on 11/21/16. 11/23/16: pt pain being controlled; received 2 doses of Dilaudid over past 24 hours. E Coli/Proteus complicated urinary tract infection: Patient completed antibiotic regimen Infectious disease recommending Rocephin for 3 weeks, stopped 10/18/16 Repeat culture indicated Kat albicans, enterococcus faecalis Status post Fluconazole. Bowel regimen with history of constipation. Monitor ostomy output. Whitney-Colace daily, Dulcolax as needed Neurogenic Bladder: Secondary to Paraplegia. Suprapubic catheter to be changed monthly last changed 11/07/16 Paraplegia: At baseline. Continue home medications. Trapeze setup in place Multi-Podus boots PT eval, recommends SNF, case management assisting. --Consulted OT who made recommendations for wheelchair. Recommendations given to case management to obtain wheelchair for patient Start getting patient up in stretcher chair. R upper back wounds: First noted on 11/11. Resemble cigarette banks; do not appear as pressure wounds; possible ruptured blister or abscess? but appearance does not really even fit with that. -Wound nurse consulted for management. Anxiety 11/24/16: Well controlled DVT Prophylaxis: SCD/Teds/lovenox. Discharge Planning PT recommends rehabilitation, wheelchair with removal arms and legs. No OT recommended. 11/03: Awaiting [facility] to evaluate for placement. 11/21: Facility in [place] may consider. Problem Qualifiers (1) Sacral decubitus ulcer: Qualified Code: L89.154 - Decubitus ulcer of sacral region, stage 4 (2) UTI (urinary tract infection): Ottoniel Banks Jr. November 24, 2016 11:09
[2016-11-24] MEDS: ENOXAPARIN SODIUM 40 MG/0.4 ML SYRINGE SQ SCH (15:50)
[2016-11-24 20:00] VITALS: BP 136/80; PULSE 90; RESP 18; TEMP 95.4; O2SAT 95
[2016-11-24] MEDS: ALPRAZolam 1 MG TAB PO PRN (22:47)
[2016-11-24] MEDS: diphenhydrAMINE HCL 25 MG CAP PO PRN (22:47)
[2016-11-25] MEDS: diphenhydrAMINE HCL 25 MG CAP PO PRN ×2 (05:29→20:46)
[2016-11-25] MEDS: HYDROmorphone HCL 4 MG TAB PO PRN ×3 (05:29→19:44)
[2016-11-25 08:00] VITALS: BP 109/80; PULSE 76; RESP 16; TEMP 97.6; O2SAT 97
[2016-11-25] MEDS: SODIUM HYPOCHLORITE 0.25% 500 ML BTL TOPICAL SCH (08:28)
[2016-11-25] MEDS: FERROUS SULFATE 325 MG (65 MG ELEMENTAL IRON) TAB PO SCH ×2 (08:47→17:15)
[2016-11-25] MEDS: GABAPENTIN 400 MG CAP PO SCH ×3 (08:47→17:15)
[2016-11-25] MEDS: PANTOPRAZOLE SOD 40 MG DELAYED RELEASE TAB PO SCH (08:47)
[2016-11-25] MEDS: HYDROCORTISONE 1% CREAM 30 GM TOPICAL SCH (08:47)
[2016-11-25] MEDS: LACTIC ACID (AMMONIUM LACTATE) 12% LOTION 225 GM BTL TOPICAL SCH ×2 (08:47→19:46)
[2016-11-25] MEDS: DOCUSATE SODIUM 50 MG/SENNA 8.6 MG TAB PO SCH (08:47)
--- NOTE | 2016-11-25 10:12 | HHI.PR ---
Subjective Remarks Follow-up for decubitus ulcers. Patient has no acute complaints. No change in clinical status. Objective Vitals Vital Signs Date Time Temp Pulse Resp B/P Pulse Ox O2 Delivery O2 Flow Rate FiO2 11/25/16 08:00 97.6 76 16 109/80 97 11/24/16 20:00 95.4 90 18 136/80 95 11/24/16 16:50 18 I/O 11/24/16 11/24/16 11/24/16 11/25/16 11/25/16 11/25/16 07:00 15:00 23:00 07:00 15:00 23:00 Intake Total 720 ml 500 ml 840 ml Output Total 450 ml 1500 ml 1125 ml Balance 270 ml -1000 ml -285 ml Intake Oral 720 ml 500 ml 840 ml Output Urine Total 450 ml 1500 ml 775 ml Stool Total 0 ml 0 ml Drainage Total 350 ml # Voids 1 # Bowel Movements 0 0 Objective Remarks GENERAL: Well-nourished well developed patient in no apparent distress. CARDIOVASCULAR: Regular rate and rhythm. RESPIRATORY: No accessory muscle use. Clear to auscultation. Breath sounds equal bilaterally. GASTROINTESTINAL: Abdomen distended, but soft, non-tender. Colostomy bag in place. NEUROLOGICAL: Awake and alert. Normal speech. PSYCHIATRIC: Appropriate mood and affect. Procedures Debridement Urinary Catheter: Yes Assessment to: Continue Peterson insert reason: Stage III/IV Press Ulcer Date of Insertion: Nov 07, 2016 Vascular Central Line Catheter: No Date of Insertion: Oct 05, 2016 Date of Removal: Oct 30, 2016 A/P Problem List: (1) Sacral decubitus ulcer ICD Code: L89.159 Status: Chronic (2) UTI (urinary tract infection) ICD Code: N39.0 Status: Resolved (3) Constipation ICD Code: K59.00 Status: Resolved (4) Paraplegia ICD Code: G82.20 Status: Chronic (5) Neurogenic bladder ICD Code: N31.9 Status: Chronic Assessment and Plan Mr. Byrd is a 35-year-old male with PMH of Anxiety, Paraplegia, Neurogenic Bladder s/p Suprapubic Cath, Chronic UTI and Chronic Sacral Decubitus Ulcer who presented for evaluation of sacral wound. Stage IV Chronic Sacral, trochanter, scrotal Ulcer in a paraplegic patient, Present at time of admission. Wound care nurse re-consulted, appreciate recommendations, and continue managing wound Plastic surgery reevaluated the patient and indicates that wound are healing well. They made further recommendations. Wound VAC placement with Shanthi, 10/11. Wound VAC changes M/W/F Plastic surgery did perform excisional debridement of chronic decubitus of left trochanter, sacrum, right ischium, bases scrotal wound. 09/07/16 wound care orders written by plastic surgery Infectious disease consulted because of wound cultures with Proteus mirabilis, MRSA. Daptomycin was continued for 3 week duration for eradication /10/06 Pain control Dilaudid 4 mg by mouth every 4 hours as needed for pain E Coli/Proteus complicated urinary tract infection: Patient completed antibiotic regimen Infectious disease recommending Rocephin for 3 weeks, stopped 10/18/16 Repeat culture indicated Kat albicans, enterococcus faecalis Status post Fluconazole for 3 days Bowel regimen with history of constipation. Monitor ostomy output. Whitney-Colace daily, Dulcolax as needed Neurogenic Bladder: Secondary to Paraplegia. Suprapubic catheter to be changed monthly last changed 11/07/16 Paraplegia: At baseline. Continue home medications. Trapeze setup in place Multi-Podus boots PT eval, recommends SNF, case management assisting. --Consulted OT who made recommendations for wheelchair. Recommendations given to case management to obtain wheelchair for patient Start getting patient up in stretcher chair. R upper back wounds: First noted on 11/11. -Wound nurse following. Recommends cleansing unroofed bulla with wound cleanser and apply xeroform in single layer over wound beds and secure with bordered gauze, to be changed every other day and prn if saturated or dislodged. DVT Prophylaxis: SCD/Teds/Lovenox. Discharge Planning PT recommends rehabilitation, wheelchair with removal arms and legs. No OT recommended. 11/03: Awaiting [facility] to evaluate for placement. 11/13: Facility in [place] may consider. Problem Qualifiers (1) Sacral decubitus ulcer: Qualified Code: L89.154 - Decubitus ulcer of sacral region, stage 4 (2) UTI (urinary tract infection): Lani Jensen November 25, 2016 10:12
[2016-11-25] MEDS: ENOXAPARIN SODIUM 40 MG/0.4 ML SYRINGE SQ SCH (16:56)
[2016-11-25 20:00] VITALS: BP 142/83; PULSE 90; RESP 19; TEMP 97.2; O2SAT 95
[2016-11-25] MEDS: ALPRAZolam 1 MG TAB PO PRN (20:46)
[2016-11-26] MEDS: HYDROmorphone HCL 4 MG TAB PO PRN ×4 (01:45→21:59)
[2016-11-26 08:00] VITALS: BP 121/80; PULSE 87; RESP 18; TEMP 97.6; O2SAT 94
[2016-11-26] MEDS: PANTOPRAZOLE SOD 40 MG DELAYED RELEASE TAB PO SCH (08:12)
[2016-11-26] MEDS: FERROUS SULFATE 325 MG (65 MG ELEMENTAL IRON) TAB PO SCH ×2 (08:12→17:36)
[2016-11-26] MEDS: DOCUSATE SODIUM 50 MG/SENNA 8.6 MG TAB PO SCH (08:12)
[2016-11-26] MEDS: GABAPENTIN 400 MG CAP PO SCH ×3 (08:12→17:36)
[2016-11-26] MEDS: SODIUM HYPOCHLORITE 0.25% 500 ML BTL TOPICAL SCH (08:13)
[2016-11-26] MEDS: LACTIC ACID (AMMONIUM LACTATE) 12% LOTION 225 GM BTL TOPICAL SCH ×2 (08:14→21:00)
[2016-11-26] MEDS: HYDROCORTISONE 1% CREAM 30 GM TOPICAL SCH (08:14)
--- NOTE | 2016-11-26 10:22 | HHI.PR ---
Subjective Remarks Follow-up for decubitus ulcers. Nurse informs me the patient's urine is dark in color. The patient denies any fevers or chills. He is asymptomatic. Objective Vitals Vital Signs Date Time Temp Pulse Resp B/P Pulse Ox O2 Delivery O2 Flow Rate FiO2 11/26/16 09:13 18 11/26/16 08:00 97.6 87 18 121/80 94 11/25/16 20:00 97.2 90 19 142/83 95 I/O 11/25/16 11/25/16 11/25/16 11/26/16 11/26/16 11/26/16 07:00 15:00 23:00 07:00 15:00 23:00 Intake Total 840 ml 1400 ml 510 ml Output Total 1125 ml 100 ml 1675 ml 475 ml Balance -285 ml -100 ml -275 ml 35 ml Intake Oral 840 ml 1400 ml 510 ml Output Urine Total 775 ml 1675 ml 475 ml Stool Total 0 ml Drainage Total 350 ml 100 ml # Voids 1 # Bowel Movements 0 1 Objective Remarks GENERAL: Well-nourished well developed patient in no apparent distress. CARDIOVASCULAR: Regular rate and rhythm. RESPIRATORY: No accessory muscle use. Clear to auscultation. Breath sounds equal bilaterally. GASTROINTESTINAL: Normoactive bowel sounds. Abdomen distended, but soft, non- tender. Colostomy present. NEUROLOGICAL: Awake and alert. Normal speech. PSYCHIATRIC: Appropriate mood and affect. Procedures Debridement Urinary Catheter: Yes Assessment to: Continue Peterson insert reason: Stage III/IV Press Ulcer Date of Insertion: Nov 07, 2016 Vascular Central Line Catheter: No Date of Insertion: Oct 05, 2016 Date of Removal: Oct 30, 2016 A/P Problem List: (1) Sacral decubitus ulcer ICD Code: L89.159 Status: Chronic (2) UTI (urinary tract infection) ICD Code: N39.0 Status: Resolved (3) Constipation ICD Code: K59.00 Status: Resolved (4) Paraplegia ICD Code: G82.20 Status: Chronic (5) Neurogenic bladder ICD Code: N31.9 Status: Chronic Assessment and Plan Mr. Byrd is a 35-year-old male with PMH of Anxiety, Paraplegia, Neurogenic Bladder s/p Suprapubic Cath, Chronic UTI and Chronic Sacral Decubitus Ulcer who presented for evaluation of sacral wound. Stage IV Chronic Sacral, trochanter, scrotal Ulcer in a paraplegic patient, Present at time of admission. Wound care nurse re-consulted, appreciate recommendations, and continue managing wound Plastic surgery reevaluated the patient and indicates that wound are healing well. They made further recommendations. Wound VAC placement with Veraflow, 10/11. Wound VAC changes M/W/F Plastic surgery did perform excisional debridement of chronic decubitus of left trochanter, sacrum, right ischium, bases scrotal wound. 09/07/16 wound care orders written by plastic surgery Infectious disease consulted because of wound cultures with Proteus mirabilis, MRSA. Daptomycin was continued for 3 week duration for eradication 09/29/ Pain control Dilaudid 4 mg by mouth every 4 hours as needed for pain E Coli/Proteus complicated urinary tract infection: Patient completed antibiotic regimen Infectious disease recommending Rocephin for 3 weeks, stopped 10/18/16 Repeat culture indicated Kat albicans, enterococcus faecalis Status post Fluconazole for 3 days Bowel regimen with history of constipation. Monitor ostomy output. Whitney-Colace daily, Dulcolax as needed Neurogenic Bladder: Secondary to Paraplegia. Suprapubic catheter to be changed monthly last changed 11/07/16 Paraplegia: At baseline. Continue home medications. Trapeze setup in place Multi-Podus boots PT eval, recommends SNF, case management assisting. --Consulted OT who made recommendations for wheelchair. Recommendations given to case management to obtain wheelchair for patient Get patient up in stretcher chair. R upper back wounds: First noted on 11/11. -Wound nurse following. Recommends cleansing unroofed bulla with wound cleanser and apply xeroform in single layer over wound beds and secure with bordered gauze, to be changed every other day and prn if saturated or dislodged. DVT Prophylaxis: SCD/Teds/Lovenox. Discharge Planning PT recommends rehabilitation, wheelchair with removal arms and legs. No OT recommended. 11/03: Awaiting [facility] to evaluate for placement. 11/13: Facility in [place] may consider. Problem Qualifiers (1) Sacral decubitus ulcer: Qualified Code: L89.154 - Decubitus ulcer of sacral region, stage 4 (2) UTI (urinary tract infection): Lani Jensen November 26, 2016 10:22
[2016-11-26] MEDS: ENOXAPARIN SODIUM 40 MG/0.4 ML SYRINGE SQ SCH (15:58)
[2016-11-26] MEDS: ALPRAZolam 1 MG TAB PO PRN (21:32)
[2016-11-26] MEDS: diphenhydrAMINE HCL 25 MG CAP PO PRN (21:32)
[2016-11-26 21:41] LABS: AUTOMATED NEUTROPHIL # 3.9 TH/MM3 (1.8-7.7); BASOPHIL # 0.1 TH/MM3 (0-0.2); BASOPHIL % 0.7 % (0.0-2.0); EOSINOPHIL # 0.2 TH/MM3 (0-0.4); HEMATOCRIT 42.1 % (39.0-51.0); HEMO FLAGS DIFF FINAL; LYMPH % 47.5 % (9.0-44.0); MEAN CELL VOLUME 83.8 FL (80.0-100.0); MEAN CORPUSCULAR HEMOGLOBIN 27.6 PG (27.0-34.0); MEAN CORPUSCULAR HGB CONC 32.9 % (32.0-36.0); MONO % 4.7 % (0.0-8.0); NEUT % 45.1 % (16.0-70.0); PLATELET COUNT 441 TH/MM3 (150-450); RED BLOOD COUNT 5.02 MIL/MM3 (4.50-5.90); RED CELL DISTRIBUTION WIDTH 15.4 % (11.6-17.2); WHITE BLOOD COUNT 8.6 TH/MM3 (4.0-11.0)
[2016-11-26 21:46] VITALS: BP 149/96; PULSE 101; RESP 18; TEMP 97.5; O2SAT 94
[2016-11-26 21:55] LABS: POTASSIUM 4.2 MEQ/L (3.5-5.1)
[2016-11-26 21:58] LABS: BICARBONATE 27.7 MEQ/L (21.0-32.0)
[2016-11-27] MEDS: HYDROmorphone HCL 4 MG TAB PO PRN ×3 (06:42→20:04)
[2016-11-27 08:00] VITALS: BP 122/81; PULSE 67; RESP 19; TEMP 98.3; O2SAT 98
[2016-11-27] MEDS: PANTOPRAZOLE SOD 40 MG DELAYED RELEASE TAB PO SCH (09:42)
[2016-11-27] MEDS: GABAPENTIN 400 MG CAP PO SCH ×3 (09:42→17:52)
[2016-11-27] MEDS: FERROUS SULFATE 325 MG (65 MG ELEMENTAL IRON) TAB PO SCH ×2 (09:42→17:52)
[2016-11-27] MEDS: DOCUSATE SODIUM 50 MG/SENNA 8.6 MG TAB PO SCH (09:42)
[2016-11-27] MEDS: HYDROCORTISONE 1% CREAM 30 GM TOPICAL SCH (09:46)
[2016-11-27] MEDS: LACTIC ACID (AMMONIUM LACTATE) 12% LOTION 225 GM BTL TOPICAL SCH ×2 (09:47→20:41)
[2016-11-27] MEDS: SODIUM HYPOCHLORITE 0.25% 500 ML BTL TOPICAL SCH (09:47)
--- NOTE | 2016-11-27 10:30 | HHI.PR ---
Subjective Remarks Follow-up for decubitus ulcers. The nurse reported the patient felt sick yesterday afternoon with an urgency to urinate despite paraplegia and was concerned about UTI, but patient denies feeling ill today. He denies any fevers , chills, nausea or vomiting, diarrhea, or urinary symptoms. Objective Vitals Vital Signs Date Time Temp Pulse Resp B/P Pulse Ox O2 Delivery O2 Flow Rate FiO2 11/27/16 08:00 98.3 67 19 122/81 98 11/26/16 21:46 97.5 101 18 149/96 94 11/26/16 16:58 18 I/O 11/26/16 11/26/16 11/26/16 11/27/16 11/27/16 11/27/16 07:00 15:00 23:00 07:00 15:00 23:00 Intake Total 510 ml 720 ml 340 ml 0 ml Output Total 475 ml 1150 ml 750 ml Balance 35 ml 720 ml -810 ml -750 ml Intake Oral 510 ml 720 ml 340 ml 0 ml Output Urine Total 475 ml 1150 ml 750 ml # Bowel Movements 1 Result Diagram: 11/26/16204911/26/162049 Objective Remarks GENERAL: Well-nourished well developed patient in no apparent distress. CARDIOVASCULAR: Regular rate and rhythm. RESPIRATORY: No accessory muscle use. Clear to auscultation. Breath sounds equal bilaterally. GASTROINTESTINAL: Normoactive bowel sounds. Abdomen distended, but soft, non- tender. Colostomy present. NEUROLOGICAL: Awake and alert. Normal speech. PSYCHIATRIC: Appropriate mood and affect. Urine in Peterson bag appears dark and concentrated. Procedures Debridement Urinary Catheter: Yes Assessment to: Continue Peterson insert reason: Stage III/IV Press Ulcer Date of Insertion: Nov 07, 2016 Vascular Central Line Catheter: No Date of Insertion: Oct 05, 2016 Date of Removal: Oct 30, 2016 A/P Problem List: (1) Sacral decubitus ulcer ICD Code: L89.159 Status: Chronic (2) UTI (urinary tract infection) ICD Code: N39.0 Status: Resolved (3) Constipation ICD Code: K59.00 Status: Resolved (4) Paraplegia ICD Code: G82.20 Status: Chronic (5) Neurogenic bladder ICD Code: N31.9 Status: Chronic Assessment and Plan Mr. Byrd is a 35-year-old male with PMH of Anxiety, Paraplegia, Neurogenic Bladder s/p Suprapubic Cath, Chronic UTI and Chronic Sacral Decubitus Ulcer who presented for evaluation of sacral wound. Stage IV Chronic Sacral, trochanter, scrotal Ulcer in a paraplegic patient, Present at time of admission. Wound care nurse re-consulted, appreciate recommendations, and continue managing wound Plastic surgery reevaluated the patient and indicates that wound are healing well. They made further recommendations. Wound VAC placement with Verjose, 10/11. Wound VAC changes M/W/F Plastic surgery did perform excisional debridement of chronic decubitus of left trochanter, sacrum, right ischium, bases scrotal wound. 09/07/16 wound care orders written by plastic surgery Infectious disease consulted because of wound cultures with Proteus mirabilis, MRSA. Daptomycin was continued for 3 week duration for eradication 09/29/ Pain control Dilaudid 4 mg by mouth every 4 hours as needed for pain E Coli/Proteus complicated urinary tract infection: Patient completed antibiotic regimen Infectious disease recommending Rocephin for 3 weeks, stopped 10/18/16 Repeat culture indicated Kat albicans, enterococcus faecalis Status post Fluconazole for 3 days 11/27: Urine is dark and concentrated, patient denies feeling ill today. He is afebrile. CBC from late yesterday reviewed with normal white blood cell count and BMP unremarkable. Patient advised to push po fluids. Bowel regimen with history of constipation. Monitor ostomy output. Whitney-Colace daily, Dulcolax as needed Neurogenic Bladder: Secondary to Paraplegia. Suprapubic catheter to be changed monthly last changed 11/07/16 Paraplegia: At baseline. Continue home medications. Trapeze setup in place Multi-Podus boots PT eval, recommends SNF, case management assisting. --Consulted OT who made recommendations for wheelchair. Recommendations given to case management to obtain wheelchair for patient Get patient up in stretcher chair. R upper back wounds: First noted on 11/11. -Wound nurse following. Recommends cleansing unroofed bulla with wound cleanser and apply xeroform in single layer over wound beds and secure with bordered gauze, to be changed every other day and prn if saturated or dislodged. DVT Prophylaxis: SCD/Teds/Lovenox. Patient discussed with Dr. Fontaine. Discharge Planning PT recommends rehabilitation, wheelchair with removal arms and legs. No OT recommended. 11/03: Awaiting [facility] to evaluate for placement. 11/13: Facility in [place] may consider. Problem Qualifiers (1) Sacral decubitus ulcer: Qualified Code: L89.154 - Decubitus ulcer of sacral region, stage 4 (2) UTI (urinary tract infection): Lani Jensen November 27, 2016 10:30
[2016-11-27] MEDS: ENOXAPARIN SODIUM 40 MG/0.4 ML SYRINGE SQ SCH (17:53)
[2016-11-27 20:00] VITALS: BP 133/88; PULSE 87; RESP 20; TEMP 98.3; O2SAT 97
[2016-11-27] MEDS: ALPRAZolam 1 MG TAB PO PRN (20:40)
[2016-11-27] MEDS: diphenhydrAMINE HCL 25 MG CAP PO PRN (20:40)
[2016-11-28] MEDS: HYDROmorphone HCL 4 MG TAB PO PRN ×3 (01:59→18:23)
[2016-11-28 08:00] VITALS: BP 118/78; PULSE 77; RESP 20; TEMP 98; O2SAT 95
[2016-11-28] MEDS: SODIUM HYPOCHLORITE 0.25% 500 ML BTL TOPICAL SCH (09:00)
[2016-11-28] MEDS: LACTIC ACID (AMMONIUM LACTATE) 12% LOTION 225 GM BTL TOPICAL SCH ×2 (09:00→20:39)
[2016-11-28] MEDS: HYDROCORTISONE 1% CREAM 30 GM TOPICAL SCH (09:00)
[2016-11-28] MEDS: DOCUSATE SODIUM 50 MG/SENNA 8.6 MG TAB PO SCH (09:00)
--- NOTE | 2016-11-28 11:26 | HHI.PR ---
Subjective Remarks Patient seen and examined today on follow-up for multiple wounds. Patient denies any new complaints. No change in clinical status. Objective Vitals Vital Signs Date Time Temp Pulse Resp B/P Pulse Ox O2 Delivery O2 Flow Rate FiO2 11/28/16 08:00 98.0 77 20 118/78 95 11/27/16 20:00 98.3 87 20 133/88 97 I/O 11/27/16 11/27/16 11/27/16 11/28/16 11/28/16 11/28/16 07:00 15:00 23:00 07:00 15:00 23:00 Intake Total 0 ml 240 ml 240 ml Output Total 750 ml 300 ml 1275 ml 1150 ml Balance -750 ml -300 ml -1035 ml -910 ml Intake Oral 0 ml 240 ml 240 ml Output Urine Total 750 ml 300 ml 1275 ml 1150 ml Stool Total 0 ml # Voids 2 # Bowel Movements 1 0 1 Result Diagram: 11/26/16204911/26/162049 Objective Remarks GENERAL: Well-developed, well-nourished, in no acute distress. alert and orientated HEENT: Head is normocephalic without any lesions or masses noted. Facial features are symmetric. Eyes: Extraocular muscles are intact. Conjunctivae were clear. NECK: Supple without any masses. Trachea midline no deviation. No JVD, CARDIAC: Regular rhythm, regular rate. S1/S2 are heard. No murmurs gallops or rubs. LUNGS: Clear to auscultation bilaterally. No wheeze, rhonchi or rales. No use of accessory muscles on inspiration or expiration. ABDOMEN: Soft, nontender. Nondistended. Bowel sounds heard in all 4 quadrants. No organomegaly or masses. Negative rebound, negative guarding. Suprapubic catheter in place without any signs of infection. Colostomy noted EXTREMITIES: No edema, pulses are equal bilaterally. No cyanosis or clubbing NEUROLOGY: Mood and affect appear appropriate. Cranial nerves II through XII grossly intact. Procedures Debridement Urinary Catheter: Yes (suprapubic catheter) Assessment to: Continue Date of Insertion: Nov 07, 2016 Vascular Central Line Catheter: No Date of Insertion: Oct 05, 2016 Date of Removal: Oct 30, 2016 A/P Assessment and Plan Mr. Byrd is a 35-year-old male with PMH of Anxiety, Paraplegia, Neurogenic Bladder s/p Suprapubic Cath, Chronic UTI and Chronic Sacral Decubitus Ulcer who presented for evaluation of sacral wound. Stage IV Chronic Sacral, trochanter, scrotal Ulcer in a paraplegic patient, Present at time of admission. Wound care nurse re-consulted, appreciate recommendations, and continue managing wound Plastic surgery reevaluated the patient and indicates that wound are healing well. They made further recommendations. Wound VAC placement with Verafraphael, 10/11. Wound VAC changes M/W/F Plastic surgery did perform excisional debridement of chronic decubitus of left trochanter, sacrum, right ischium, bases scrotal wound. 09/07/16 wound care orders written by plastic surgery Infectious disease consulted because of wound cultures with Proteus mirabilis, MRSA. Daptomycin was continued for 3 week duration for eradication. Pain control Dilaudid 4 mg by mouth every 4 hours as needed for pain E Coli/Proteus complicated urinary tract infection: Patient completed antibiotic regimen Infectious disease recommending Rocephin for 3 weeks, stopped 10/18/16 Repeat culture indicated Kat albicans, enterococcus faecalis Status post Fluconazole for 3 days Bowel regimen with history of constipation. Monitor ostomy output. Whitney-Colace daily, Dulcolax as needed Neurogenic Bladder: Secondary to Paraplegia. Suprapubic catheter to be changed monthly last changed 11/07/16 Paraplegia: At baseline. Continue home medications. Trapeze setup in place Multi-Podus boots PT eval, recommends SNF, case management assisting. --Consulted OT who made recommendations for wheelchair. Recommendations given to case management to obtain wheelchair for patient Start getting patient up in stretcher chair. DVT Prophylaxis: SCD/Teds/lovenox. Discharge Planning Discharge planning per case management. Sergei Larose November 28, 2016 11:26
[2016-11-28] MEDS: PANTOPRAZOLE SOD 40 MG DELAYED RELEASE TAB PO SCH (12:48)
[2016-11-28] MEDS: GABAPENTIN 400 MG CAP PO SCH ×3 (12:48→18:24)
[2016-11-28] MEDS: FERROUS SULFATE 325 MG (65 MG ELEMENTAL IRON) TAB PO SCH ×2 (12:48→18:23)
[2016-11-28] MEDS: ENOXAPARIN SODIUM 40 MG/0.4 ML SYRINGE SQ SCH (18:23)
[2016-11-28 20:00] VITALS: BP 116/79; PULSE 105; RESP 18; TEMP 98.6; O2SAT 95
[2016-11-28] MEDS: diphenhydrAMINE HCL 25 MG CAP PO PRN (20:38)
[2016-11-28] MEDS: ALPRAZolam 1 MG TAB PO PRN (20:38)
[2016-11-29 08:00] VITALS: BP 123/80; PULSE 97; RESP 20; TEMP 98.9; O2SAT 96
[2016-11-29] MEDS: DOCUSATE SODIUM 50 MG/SENNA 8.6 MG TAB PO SCH (08:30)
[2016-11-29] MEDS: GABAPENTIN 400 MG CAP PO SCH ×3 (08:30→16:18)
[2016-11-29] MEDS: HYDROmorphone HCL 4 MG TAB PO PRN ×3 (08:32→23:46)
[2016-11-29] MEDS: PANTOPRAZOLE SOD 40 MG DELAYED RELEASE TAB PO SCH (08:32)
[2016-11-29] MEDS: FERROUS SULFATE 325 MG (65 MG ELEMENTAL IRON) TAB PO SCH ×2 (08:32→16:18)
[2016-11-29] MEDS: SODIUM HYPOCHLORITE 0.25% 500 ML BTL TOPICAL SCH (09:39)
[2016-11-29] MEDS: LACTIC ACID (AMMONIUM LACTATE) 12% LOTION 225 GM BTL TOPICAL SCH ×2 (09:40→20:45)
[2016-11-29] MEDS: HYDROCORTISONE 1% CREAM 30 GM TOPICAL SCH (09:40)
--- NOTE | 2016-11-29 10:46 | HHI.PR ---
Subjective Remarks Patient seen and examined today for follow-up on multiple wounds. Patient lying in bed comfortable. Denies any new complaints. No change in clinical status Objective Vitals Vital Signs Date Time Temp Pulse Resp B/P Pulse Ox O2 Delivery O2 Flow Rate FiO2 11/29/16 08:00 98.9 97 20 123/80 96 11/28/16 20:00 98.6 105 18 116/79 95 11/28/16 19:23 16 I/O 11/28/16 11/28/16 11/28/16 11/29/16 11/29/16 11/29/16 06:59 14:59 22:59 06:59 14:59 22:59 Intake Total 240 ml 720 ml 480 ml Output Total 1150 ml 400 ml 450 ml 350 ml Balance -910 ml -400 ml 270 ml 130 ml Intake Oral 240 ml 720 ml 480 ml Output Urine Total 1150 ml 400 ml 450 ml 350 ml Stool Total 0 ml 0 ml # Voids 2 # Bowel Movements 1 0 Result Diagram: 11/26/16204911/26/162049 Objective Remarks GENERAL: Well-developed, well-nourished, in no acute distress. alert and orientated HEENT: Head is normocephalic without any lesions or masses noted. Facial features are symmetric. Eyes: Extraocular muscles are intact. Conjunctivae were clear. NECK: Supple without any masses. Trachea midline no deviation. No JVD, CARDIAC: Regular rhythm, regular rate. S1/S2 are heard. No murmurs gallops or rubs. LUNGS: Clear to auscultation bilaterally. No wheeze, rhonchi or rales. No use of accessory muscles on inspiration or expiration. ABDOMEN: Soft, nontender. Nondistended. Bowel sounds heard in all 4 quadrants. No organomegaly or masses. Negative rebound, negative guarding. Suprapubic catheter in place without any signs of infection. Colostomy noted EXTREMITIES: No edema, pulses are equal bilaterally. No cyanosis or clubbing NEUROLOGY: Mood and affect appear appropriate. Cranial nerves II through XII grossly intact. Procedures Debridement Urinary Catheter: Yes (suprapubic catheter) Assessment to: Continue Date of Insertion: Nov 07, 2016 Vascular Central Line Catheter: No Date of Insertion: Oct 05, 2016 Date of Removal: Oct 30, 2016 A/P Assessment and Plan Mr. Byrd is a 35-year-old male with PMH of Anxiety, Paraplegia, Neurogenic Bladder s/p Suprapubic Cath, Chronic UTI and Chronic Sacral Decubitus Ulcer who presented for evaluation of sacral wound. Stage IV Chronic Sacral, trochanter, scrotal Ulcer in a paraplegic patient, Present at time of admission. Wound care nurse re-consulted, appreciate recommendations, and continue managing wound Plastic surgery reevaluated the patient and indicates that wound are healing well. They made further recommendations. Wound VAC placement with Veraflow, 10/11. Wound VAC changes M/W/F Plastic surgery did perform excisional debridement of chronic decubitus of left trochanter, sacrum, right ischium, bases scrotal wound. 09/07/16 wound care orders written by plastic surgery Infectious disease consulted because of wound cultures with Proteus mirabilis, MRSA. Daptomycin was continued for 3 week duration for eradication. / Pain control Dilaudid 4 mg by mouth every 4 hours as needed for pain E Coli/Proteus complicated urinary tract infection: Patient completed antibiotic regimen Infectious disease recommending Rocephin for 3 weeks, stopped 10/18/16 Repeat culture indicated Kat albicans, enterococcus faecalis Status post Fluconazole for 3 days Bowel regimen with history of constipation. Monitor ostomy output. Whitney-Colace daily, Dulcolax as needed Neurogenic Bladder: Secondary to Paraplegia. Suprapubic catheter to be changed monthly last changed 11/07/16 Paraplegia: At baseline. Continue home medications. Trapeze setup in place Multi-Podus boots PT eval, recommends SNF, case management assisting. --Consulted OT who made recommendations for wheelchair. Recommendations given to case management to obtain wheelchair for patient Get patient up in stretcher chair. DVT Prophylaxis: SCD/Teds/lovenox. Records reviewed, no change in clinical status or treatment plan at this time. Discharge Planning Discharge planning per case management. Sergei Larose November 29, 2016 10:46
[2016-11-29] MEDS: ENOXAPARIN SODIUM 40 MG/0.4 ML SYRINGE SQ SCH (16:18)
[2016-11-29 20:00] VITALS: BP 136/82; PULSE 92; RESP 18; TEMP 98.3; O2SAT 94
[2016-11-29] MEDS: diphenhydrAMINE HCL 25 MG CAP PO PRN (20:43)
[2016-11-29] MEDS: ALPRAZolam 1 MG TAB PO PRN (20:44)
[2016-11-30] MEDS: FERROUS SULFATE 325 MG (65 MG ELEMENTAL IRON) TAB PO SCH ×2 (07:35→15:43)
[2016-11-30] MEDS: GABAPENTIN 400 MG CAP PO SCH ×3 (07:35→17:57)
[2016-11-30] MEDS: HYDROmorphone HCL 4 MG TAB PO PRN ×2 (07:35→14:48)
[2016-11-30] MEDS: DOCUSATE SODIUM 50 MG/SENNA 8.6 MG TAB PO SCH (07:35)
[2016-11-30] MEDS: PANTOPRAZOLE SOD 40 MG DELAYED RELEASE TAB PO SCH (07:35)
[2016-11-30 08:00] VITALS: BP 130/80; PULSE 88; RESP 18; TEMP 98; O2SAT 95
[2016-11-30] MEDS: SODIUM HYPOCHLORITE 0.25% 500 ML BTL TOPICAL SCH (09:00)
[2016-11-30] MEDS: LACTIC ACID (AMMONIUM LACTATE) 12% LOTION 225 GM BTL TOPICAL SCH ×2 (10:01→21:35)
[2016-11-30 10:33] LABS: AUTOMATED NEUTROPHIL # 10.6 TH/MM3 (1.8-7.7); BASOPHIL # 0.1 TH/MM3 (0-0.2); BASOPHIL % 0.5 % (0.0-2.0); EOSINOPHIL % 0.3 % (0.0-4.0); HEMATOCRIT 44.5 % (39.0-51.0); LYMPH % 21.4 % (9.0-44.0); LYMPHOCYTE # 3.1 TH/MM3 (1.0-4.8); MEAN CELL VOLUME 83.6 FL (80.0-100.0); MEAN CORPUSCULAR HEMOGLOBIN 27.5 PG (27.0-34.0); MEAN CORPUSCULAR HGB CONC 32.9 % (32.0-36.0); MONO % 5.7 % (0.0-8.0); NEUT % 72.1 % (16.0-70.0); PLATELET COUNT 428 TH/MM3 (150-450); RED BLOOD COUNT 5.33 MIL/MM3 (4.50-5.90); RED CELL DISTRIBUTION WIDTH 15.5 % (11.6-17.2); WHITE BLOOD COUNT 14.6 TH/MM3 (4.0-11.0)
[2016-11-30 10:38] LABS: HEMO FLAGS DIFF FINAL
[2016-11-30 10:50] LABS: POTASSIUM 4.3 MEQ/L (3.5-5.1)
[2016-11-30 10:53] LABS: BICARBONATE 23.7 MEQ/L (21.0-32.0)
--- NOTE | 2016-11-30 10:54 | HHI.PR ---
Subjective Remarks Patient seen and examined today for multiple wounds. Patient states that he feels that he has a chills and has a urinary tract infection. Patient does have suprapubic catheter with history of multiple different bacteria Objective Vitals Vital Signs Date Time Temp Pulse Resp B/P Pulse Ox O2 Delivery O2 Flow Rate FiO2 11/30/16 08:35 20 11/29/16 20:00 98.3 92 18 136/82 94 I/O 11/29/16 11/29/16 11/29/16 11/30/16 11/30/16 11/30/16 06:59 14:59 22:59 06:59 14:59 22:59 Intake Total 480 ml 360 ml 480 ml 480 ml Output Total 350 ml 275 ml 75 ml 50 ml Balance 130 ml 85 ml 405 ml 430 ml Intake Oral 480 ml 360 ml 480 ml 480 ml Output Urine Total 350 ml 275 ml 75 ml 50 ml Stool Total 0 ml 0 ml # Bowel Movements 0 Result Diagram: 11/30/16 1010 11/30/16 1010 Objective Remarks GENERAL: Well-developed, well-nourished, in no acute distress. alert and orientated HEENT: Head is normocephalic without any lesions or masses noted. Facial features are symmetric. Eyes: Extraocular muscles are intact. Conjunctivae were clear. NECK: Supple without any masses. Trachea midline no deviation. No JVD, CARDIAC: Regular rhythm, regular rate. S1/S2 are heard. No murmurs gallops or rubs. LUNGS: Clear to auscultation bilaterally. No wheeze, rhonchi or rales. No use of accessory muscles on inspiration or expiration. ABDOMEN: Soft, nontender. Nondistended. Bowel sounds heard in all 4 quadrants. No organomegaly or masses. Negative rebound, negative guarding. Suprapubic catheter in place without any signs of infection. Colostomy noted EXTREMITIES: No edema, pulses are equal bilaterally. No cyanosis or clubbing NEUROLOGY: Mood and affect appear appropriate. Cranial nerves II through XII grossly intact. Procedures Debridement Urinary Catheter: Yes Assessment to: Remove (suprapubic catheter) Peterson insert reason: Prolonged Immobilization Date of Insertion: Nov 07, 2016 Date of Removal: November 30, 2016 Vascular Central Line Catheter: No Date of Insertion: Oct 05, 2016 Date of Removal: Oct 30, 2016 A/P Assessment and Plan Mr. Byrd is a 35-year-old male with PMH of Anxiety, Paraplegia, Neurogenic Bladder s/p Suprapubic Cath, Chronic UTI and Chronic Sacral Decubitus Ulcer who presented for evaluation of sacral wound. Stage IV Chronic Sacral, trochanter, scrotal Ulcer in a paraplegic patient, Present at time of admission. Wound care nurse re-consulted, appreciate recommendations, and continue managing wound Plastic surgery reevaluated the patient and indicates that wound are healing well. They made further recommendations. Wound VAC placement with Veraflow, 10/11. Wound VAC changes M/W/F Plastic surgery did perform excisional debridement of chronic decubitus of left trochanter, sacrum, right ischium, bases scrotal wound. 09/07/16 wound care orders written by plastic surgery Infectious disease consulted because of wound cultures with Proteus mirabilis, MRSA. Daptomycin was continued for 3 week duration for eradication. / Pain control Dilaudid 4 mg by mouth every 4 hours as needed for pain Recurrent complicated urinary tract infection: Patient stating he has chills and feels that he has another urinary tract infection replace Peterson and obtain clean urine sample for urinalysis Patient does have leukocytosis, tachycardia. Possible underlying sepsis Start Zosyn 3.375 g IV every 6 hours. Acute azotemia Start IV fluids monitor renal function Bowel regimen with history of constipation. Monitor ostomy output. Whitney-Colace daily, Dulcolax as needed Neurogenic Bladder: Secondary to Paraplegia. Suprapubic catheter to be changed monthly last changed 11/07/16 Paraplegia: At baseline. Continue home medications. Trapeze setup in place Multi-Podus boots PT eyal, recommends SNF, case management assisting. --Consulted OT who made recommendations for wheelchair. Recommendations given to case management to obtain wheelchair for patient Get patient up in stretcher chair. DVT Prophylaxis: SCD/Teds/lovenox. Records reviewed, no change in clinical status or treatment plan at this time. Discharge Planning Discharge planning per case management. Sergei Larose November 30, 2016 10:54
[2016-11-30] MEDS: SODIUM CHLOR 0.9% 1000 ML INJ 1,000 ML IV SCH ×2 (11:00→17:57)
[2016-11-30] MEDS ORDERED: SODIUM CHLORIDE 0.9% FLUSH 10 ML FLUSH IV FLUSH PRN (11:00)
[2016-11-30] MEDS: PIPERACIL-TAZO 3.375 GM PREMIX 50 ML IV SCH ×2 (12:00→17:57)
[2016-11-30 12:21] LABS: BLOOD, URINE LARGE (NEG); GLUCOSE,URINE NEG (NEG); KETONE, URINE NEG (NEG); NITRITE,URINE NEG (NEG)
[2016-11-30 12:25] LABS: METHOD OF COLLECTION SUPRAPUBIC; URINE COLOR RED (YELLW/STRAW)
[2016-11-30 12:27] LABS: BACTERIA, URINE MANY /hpf; RBC, URINE INNUM /hpf (0-3); WBC, URINE INNUM /hpf (0-5)
[2016-11-30 12:31] LABS: COMMENT (UR) CULTURE INDICATED; CULTURE IF INDICATED CULTURE INDICATED
[2016-11-30] MEDS: ENOXAPARIN SODIUM 40 MG/0.4 ML SYRINGE SQ SCH (15:50)
[2016-11-30 20:00] VITALS: BP 144/78; PULSE 110; RESP 19; TEMP 99.3; O2SAT 98
[2016-11-30] MEDS: SODIUM CHLORIDE 0.9% FLUSH 10 ML FLUSH IV FLUSH SCH (20:24)
[2016-12-01] MEDS: SODIUM CHLOR 0.9% 1000 ML INJ 1,000 ML IV SCH ×2 (04:56→17:00)
[2016-12-01] MEDS: PIPERACIL-TAZO 3.375 GM PREMIX 50 ML IV SCH ×5 (04:56→23:53)
[2016-12-01 08:00] VITALS: BP 127/80; PULSE 84; RESP 16; TEMP 98.8; O2SAT 95
[2016-12-01] MEDS: SODIUM HYPOCHLORITE 0.25% 500 ML BTL TOPICAL SCH (09:00)
[2016-12-01] MEDS: DOCUSATE SODIUM 50 MG/SENNA 8.6 MG TAB PO SCH (09:00)
[2016-12-01] MEDS: PANTOPRAZOLE SOD 40 MG DELAYED RELEASE TAB PO SCH (10:13)
[2016-12-01] MEDS: SODIUM CHLORIDE 0.9% FLUSH 10 ML FLUSH IV FLUSH SCH ×2 (10:13→21:20)
[2016-12-01] MEDS: FERROUS SULFATE 325 MG (65 MG ELEMENTAL IRON) TAB PO SCH ×2 (10:13→17:14)
[2016-12-01] MEDS: GABAPENTIN 400 MG CAP PO SCH ×3 (10:14→17:14)
[2016-12-01] MEDS: HYDROmorphone HCL 4 MG TAB PO PRN ×3 (10:14→23:53)
[2016-12-01] MEDS: ALPRAZolam 1 MG TAB PO PRN ×2 (10:14→23:53)
[2016-12-01] MEDS: LACTIC ACID (AMMONIUM LACTATE) 12% LOTION 225 GM BTL TOPICAL SCH ×2 (10:15→21:20)
--- NOTE | 2016-12-01 10:16 | HHI.PR ---
Subjective Remarks Patient seen and examined today for follow-up on multiple wounds, recurrent complicated urinary tract infection with sepsis. Patient states that he is feeling better today. Peterson was changed with good urinary output and yellow color and clear. Objective Vitals Vital Signs Date Time Temp Pulse Resp B/P Pulse Ox O2 Delivery O2 Flow Rate FiO2 11/30/16 20:00 99.3 110 19 144/78 98 11/30/16 13:49 20 I/O 11/30/16 11/30/16 11/30/16 12/01/16 12/01/16 12/01/16 06:59 14:59 22:59 06:59 14:59 22:59 Intake Total 480 ml 240 ml 1215 ml Output Total 50 ml 400 ml 1075 ml 1025 ml Balance 430 ml -400 ml -835 ml 190 ml Intake Oral 480 ml 240 ml 120 ml IV Total 1095 ml Output Urine Total 50 ml 400 ml 1075 ml 725 ml Stool Total 0 ml Drainage Total 300 ml Result Diagram: 11/30/16 1010 11/30/16 1010 Objective Remarks GENERAL: Well-developed, well-nourished, in no acute distress. alert and orientated HEENT: Head is normocephalic without any lesions or masses noted. Facial features are symmetric. Eyes: Extraocular muscles are intact. Conjunctivae were clear. NECK: Supple without any masses. Trachea midline no deviation. No JVD, CARDIAC: Regular rhythm, regular rate. S1/S2 are heard. No murmurs gallops or rubs. LUNGS: Clear to auscultation bilaterally. No wheeze, rhonchi or rales. No use of accessory muscles on inspiration or expiration. ABDOMEN: Soft, nontender. Nondistended. Bowel sounds heard in all 4 quadrants. No organomegaly or masses. Negative rebound, negative guarding. Suprapubic catheter in place with yellow/clear urine. Colostomy noted EXTREMITIES: No edema, pulses are equal bilaterally. No cyanosis or clubbing NEUROLOGY: Mood and affect appear appropriate. Cranial nerves II through XII grossly intact. Procedures Debridement Urinary Catheter: Yes Assessment to: Continue Date of Insertion: November 30, 2016 Vascular Central Line Catheter: No A/P Assessment and Plan Mr. Byrd is a 35-year-old male with PMH of Anxiety, Paraplegia, Neurogenic Bladder s/p Suprapubic Cath, Chronic UTI and Chronic Sacral Decubitus Ulcer who presented for evaluation of sacral wound. Recurrent complicated urinary tract infection with sepsis Patient stating he has chills and feels that he has another urinary tract infection Patient with sinus tachycardia, leukocytosis, urinary tract infection replaced Peterson and obtained clean urine sample for urinalysis Zosyn 3.375 g IV every 6 hours. Await urine culture for further antibiotic recommendation Acute azotemia Continue IV fluids monitor renal function Stage IV Chronic Sacral, trochanter, scrotal Ulcer in a paraplegic patient, Present at time of admission. Wound care nurse re-consulted, appreciate recommendations, and continue managing wound Plastic surgery reevaluated the patient and indicates that wound are healing well. They made further recommendations. Wound VAC placement with Shanthi, 10/11. Wound VAC changes M/W/F Plastic surgery did perform excisional debridement of chronic decubitus of left trochanter, sacrum, right ischium, bases scrotal wound. 09/07/16 wound care orders written by plastic surgery Infectious disease consulted because of wound cultures with Proteus mirabilis, MRSA. Daptomycin was continued for 3 week duration for eradication. 09/29// Pain control Dilaudid 4 mg by mouth every 4 hours as needed for pain Bowel regimen with history of constipation. Monitor ostomy output. Whitney-Colace daily, Dulcolax as needed Neurogenic Bladder: Secondary to Paraplegia. Suprapubic catheter to be changed monthly last changed 11/07/16 Paraplegia: At baseline. Continue home medications. Trapeze setup in place Multi-Podus boots PT eyal, recommends SNF, case management assisting. --Consulted OT who made recommendations for wheelchair. Recommendations given to case management to obtain wheelchair for patient Get patient up in stretcher chair. DVT Prophylaxis: SCD/Teds/lovenox. Discharge Planning Discharge planning per case management. Sergei Larose December 01, 2016 10:16
[2016-12-01] MEDS: ENOXAPARIN SODIUM 40 MG/0.4 ML SYRINGE SQ SCH (17:13)
[2016-12-01 20:00] VITALS: BP 128/77; PULSE 99; RESP 20; TEMP 97.9; O2SAT 100
[2016-12-01] MEDS: diphenhydrAMINE HCL 25 MG CAP PO PRN (23:52)
[2016-12-02] MEDS: PIPERACIL-TAZO 3.375 GM PREMIX 50 ML IV SCH (06:25)
[2016-12-02] MEDS: SODIUM CHLOR 0.9% 1000 ML INJ 1,000 ML IV SCH (06:27)
[2016-12-02 08:00] VITALS: BP 130/74; PULSE 82; RESP 19; TEMP 96.4; O2SAT 98
[2016-12-02] MEDS: SODIUM CHLORIDE 0.9% FLUSH 10 ML FLUSH IV FLUSH SCH ×2 (09:00→20:59)
[2016-12-02] MEDS: DOCUSATE SODIUM 50 MG/SENNA 8.6 MG TAB PO SCH (09:06)
[2016-12-02] MEDS: PANTOPRAZOLE SOD 40 MG DELAYED RELEASE TAB PO SCH (09:06)
[2016-12-02] MEDS: GABAPENTIN 400 MG CAP PO SCH ×3 (09:06→18:02)
[2016-12-02] MEDS: FERROUS SULFATE 325 MG (65 MG ELEMENTAL IRON) TAB PO SCH ×2 (09:06→18:03)
[2016-12-02] MEDS: LACTIC ACID (AMMONIUM LACTATE) 12% LOTION 225 GM BTL TOPICAL SCH ×2 (09:07→20:59)
[2016-12-02] MEDS: HYDROmorphone HCL 4 MG TAB PO PRN ×2 (09:08→18:02)
--- NOTE | 2016-12-02 12:37 | HHI.PR ---
Subjective Remarks Patient seen and examined today for follow-up on multiple wounds, recurrent UTI. Patient is improving and daily basis. Discussed with nursing staff to get patient up into a wheelchair or stretcher bed on a regular basis Objective Vitals Vital Signs Date Time Temp Pulse Resp B/P Pulse Ox O2 Delivery O2 Flow Rate FiO2 12/02/16 08:00 96.4 82 19 130/74 98 12/01/16 20:00 97.9 99 20 128/77 100 12/01/16 18:15 18 I/O 12/01/16 12/01/16 12/01/16 12/02/16 12/02/16 12/02/16 07:00 15:00 23:00 07:00 15:00 23:00 Intake Total 1215 ml 900 ml 1220 ml 720 ml Output Total 1025 ml 2450 ml 750 ml Balance 190 ml 900 ml -1230 ml -30 ml Intake Oral 120 ml 500 ml 1220 ml 720 ml IV Total 1095 ml 400 ml Output Urine Total 725 ml 2450 ml 750 ml Stool Total 0 ml Drainage Total 300 ml Result Diagram: 11/30/16 1010 11/30/16 1010 Objective Remarks GENERAL: Well-developed, well-nourished, in no acute distress. alert and orientated HEENT: Head is normocephalic without any lesions or masses noted. Facial features are symmetric. Eyes: Extraocular muscles are intact. Conjunctivae were clear. NECK: Supple without any masses. Trachea midline no deviation. No JVD, CARDIAC: Regular rhythm, regular rate. S1/S2 are heard. No murmurs gallops or rubs. LUNGS: Clear to auscultation bilaterally. No wheeze, rhonchi or rales. No use of accessory muscles on inspiration or expiration. ABDOMEN: Soft, nontender. Nondistended. Bowel sounds heard in all 4 quadrants. No organomegaly or masses. Negative rebound, negative guarding. Suprapubic catheter in place with yellow/clear urine. Colostomy noted EXTREMITIES: No edema, pulses are equal bilaterally. No cyanosis or clubbing NEUROLOGY: Mood and affect appear appropriate. Cranial nerves II through XII grossly intact. Procedures Debridement Urinary Catheter: Yes Assessment to: Continue Peterson insert reason: Stage III/IV Press Ulcer Date of Insertion: November 30, 2016 Vascular Central Line Catheter: No A/P Assessment and Plan Mr. Byrd is a 35-year-old male with PMH of Anxiety, Paraplegia, Neurogenic Bladder s/p Suprapubic Cath, Chronic UTI and Chronic Sacral Decubitus Ulcer who presented for evaluation of sacral wound. Recurrent complicated urinary tract infection with sepsis Patient stating he has chills and feels that he has another urinary tract infection Patient with sinus tachycardia, leukocytosis, urinary tract infection replaced Peterson and obtained clean urine sample for urinalysis Discontinue Zosyn 3.375 g IV every 6 hours. Start Ceftin 250 mg twice daily for 10 days Urine culture with Proteus Acute azotemia Continue IV fluids monitor renal function Stage IV Chronic Sacral, trochanter, scrotal Ulcer in a paraplegic patient, Present at time of admission. Wound care nurse re-consulted, appreciate recommendations, and continue managing wound Plastic surgery reevaluated the patient and indicates that wound are healing well. They made further recommendations. Wound VAC placement with Veraflow, 10/11. Wound VAC changes M/W/F Plastic surgery did perform excisional debridement of chronic decubitus of left trochanter, sacrum, right ischium, bases scrotal wound. 09/07/16 wound care orders written by plastic surgery Infectious disease consulted because of wound cultures with Proteus mirabilis, MRSA. Daptomycin was continued for 3 week duration for eradication. 09/29// Pain control Dilaudid 4 mg by mouth every 4 hours as needed for pain Bowel regimen with history of constipation. Monitor ostomy output. Whitney-Colace daily, Dulcolax as needed Neurogenic Bladder: Secondary to Paraplegia. Suprapubic catheter to be changed monthly last changed 11/07/16 Paraplegia: At baseline. Continue home medications. Trapeze setup in place Multi-Podus boots PT eval, recommends SNF, case management assisting. --Consulted OT who made recommendations for wheelchair. Recommendations given to case management to obtain wheelchair for patient Get patient up in stretcher chair. DVT Prophylaxis: SCD/Teds/lovenox. Discharge Planning Discharge planning per case management. Sergei Larose December 02, 2016 12:37
[2016-12-02] MEDS: CEFUROXIME AXETIL 250 MG TAB PO SCH ×2 (14:05→20:55)
[2016-12-02] MEDS: SODIUM HYPOCHLORITE 0.25% 500 ML BTL TOPICAL SCH (14:05)
[2016-12-02] MEDS: ENOXAPARIN SODIUM 40 MG/0.4 ML SYRINGE SQ SCH (16:37)
[2016-12-02 20:00] VITALS: BP 134/81; PULSE 77; RESP 18; TEMP 97.7; O2SAT 97
[2016-12-02] MEDS: diphenhydrAMINE HCL 25 MG CAP PO PRN (20:55)
[2016-12-02] MEDS: ALPRAZolam 1 MG TAB PO PRN (20:55)
[2016-12-03 07:52] LABS: AUTOMATED NEUTROPHIL # 4.3 TH/MM3 (1.8-7.7); BASOPHIL % 0.4 % (0.0-2.0); EOSINOPHIL # 0.1 TH/MM3 (0-0.4); EOSINOPHIL % 1.8 % (0.0-4.0); HEMATOCRIT 37.7 % (39.0-51.0); HEMO FLAGS DIFF FINAL; LYMPH % 36.5 % (9.0-44.0); LYMPHOCYTE # 2.7 TH/MM3 (1.0-4.8); MEAN CELL VOLUME 82.8 FL (80.0-100.0); MEAN CORPUSCULAR HEMOGLOBIN 27.7 PG (27.0-34.0); MEAN CORPUSCULAR HGB CONC 33.5 % (32.0-36.0); NEUT % 56.3 % (16.0-70.0); PLATELET COUNT 396 TH/MM3 (150-450); RED BLOOD COUNT 4.55 MIL/MM3 (4.50-5.90); RED CELL DISTRIBUTION WIDTH 14.4 % (11.6-17.2); WHITE BLOOD COUNT 7.5 TH/MM3 (4.0-11.0)
[2016-12-03 08:07] LABS: POTASSIUM 3.5 MEQ/L (3.5-5.1)
[2016-12-03 08:09] VITALS: BP 140/78; PULSE 71; RESP 16; TEMP 97.2; O2SAT 94
[2016-12-03 08:10] LABS: BICARBONATE 27.3 MEQ/L (21.0-32.0)
[2016-12-03] MEDS: DOCUSATE SODIUM 50 MG/SENNA 8.6 MG TAB PO SCH (08:20)
[2016-12-03] MEDS: GABAPENTIN 400 MG CAP PO SCH ×3 (08:20→17:19)
[2016-12-03] MEDS: CEFUROXIME AXETIL 250 MG TAB PO SCH ×2 (08:20→20:03)
[2016-12-03] MEDS: PANTOPRAZOLE SOD 40 MG DELAYED RELEASE TAB PO SCH (08:20)
[2016-12-03] MEDS: FERROUS SULFATE 325 MG (65 MG ELEMENTAL IRON) TAB PO SCH ×2 (08:20→17:19)
[2016-12-03] MEDS: HYDROmorphone HCL 4 MG TAB PO PRN ×3 (08:21→22:17)
[2016-12-03] MEDS: SODIUM HYPOCHLORITE 0.25% 500 ML BTL TOPICAL SCH (08:21)
[2016-12-03] MEDS: SODIUM CHLORIDE 0.9% FLUSH 10 ML FLUSH IV FLUSH SCH ×2 (08:21→20:04)
[2016-12-03] MEDS: LACTIC ACID (AMMONIUM LACTATE) 12% LOTION 225 GM BTL TOPICAL SCH ×2 (08:22→20:04)
--- NOTE | 2016-12-03 09:01 | HHI.PR ---
Subjective Remarks Patient seen and examined today for follow-up on multiple wounds, urinary tract infection. Patient clinically improved. Laboratory studies significantly improved. Patient denies any new complaints. Discussed with him the need to start getting out of bed and functioning normally as he was prior to coming to the hospital. Objective Vitals Vital Signs Date Time Temp Pulse Resp B/P Pulse Ox O2 Delivery O2 Flow Rate FiO2 12/03/16 08:09 97.2 71 16 140/78 94 12/02/16 20:00 97.7 77 18 134/81 97 12/02/16 19:02 16 I/O 12/02/16 12/02/16 12/02/16 12/03/16 12/03/16 12/03/16 07:00 15:00 23:00 07:00 15:00 23:00 Intake Total 720 ml 360 ml 720 ml 580 ml Output Total 750 ml 1175 ml 1650 ml 1500 ml Balance -30 ml -815 ml -930 ml -920 ml Intake Oral 720 ml 360 ml 720 ml 580 ml Output Urine Total 750 ml 1175 ml 1000 ml 1500 ml Stool Total 150 ml 0 ml Drainage Total 500 ml # Bowel Movements 0 Result Diagram: 12/03/1640 12/03/1640 Objective Remarks GENERAL: Well-developed, well-nourished, in no acute distress. alert and orientated HEENT: Head is normocephalic without any lesions or masses noted. Facial features are symmetric. Eyes: Extraocular muscles are intact. Conjunctivae were clear. NECK: Supple without any masses. Trachea midline no deviation. No JVD, CARDIAC: Regular rhythm, regular rate. S1/S2 are heard. No murmurs gallops or rubs. LUNGS: Clear to auscultation bilaterally. No wheeze, rhonchi or rales. No use of accessory muscles on inspiration or expiration. ABDOMEN: Soft, nontender. Nondistended. Bowel sounds heard in all 4 quadrants. No organomegaly or masses. Negative rebound, negative guarding. Suprapubic catheter in place with yellow/clear urine. Colostomy noted EXTREMITIES: No edema, pulses are equal bilaterally. No cyanosis or clubbing NEUROLOGY: Mood and affect appear appropriate. Cranial nerves II through XII grossly intact. Procedures Debridement Urinary Catheter: Yes (suprapubic catheter) Assessment to: Continue Peterson insert reason: Prolonged Immobilization Date of Insertion: November 30, 2016 Vascular Central Line Catheter: No A/P Assessment and Plan Mr. Byrd is a 35-year-old male with PMH of Anxiety, Paraplegia, Neurogenic Bladder s/p Suprapubic Cath, Chronic UTI and Chronic Sacral Decubitus Ulcer who presented for evaluation of sacral wound. Recurrent complicated urinary tract infection with sepsis, improved Patient stating he has chills and feels that he has another urinary tract infection Patient with sinus tachycardia, leukocytosis, urinary tract infection replaced Peterson and obtained clean urine sample for urinalysis Discontinued Zosyn 3.375 g IV every 6 hours. Continue Ceftin 250 mg twice daily for 10 days Urine culture with Proteus Acute azotemia, resolved Continue IV fluids monitor renal function Stage IV Chronic Sacral, trochanter, scrotal Ulcer in a paraplegic patient, Present at time of admission. Wound care nurse re-consulted, appreciate recommendations, and continue managing wound Plastic surgery reevaluated the patient and indicates that wound are healing well. They made further recommendations. Wound VAC placement with Shanthi, 10/11. Wound VAC changes M/W/F Plastic surgery did perform excisional debridement of chronic decubitus of left trochanter, sacrum, right ischium, bases scrotal wound. 09/07/16 wound care orders written by plastic surgery Infectious disease consulted because of wound cultures with Proteus mirabilis, MRSA. Daptomycin was continued for 3 week duration for eradication. Pain control Dilaudid 4 mg by mouth every 4 hours as needed for pain Bowel regimen with history of constipation. Monitor ostomy output. Whitney-Colace daily, Dulcolax as needed Neurogenic Bladder: Secondary to Paraplegia. Suprapubic catheter to be changed monthly last changed 11/07/16 Paraplegia: At baseline. Continue home medications. Trapeze setup in place Multi-Podus boots PT eval, recommends SNF, case management assisting. --Consulted OT who made recommendations for wheelchair. Recommendations given to case management to obtain wheelchair for patient Discussed with patient to increase daily functioning, getting out of bed to wheelchair, stretcher chair DVT Prophylaxis: SCD/Teds/lovenox. Discharge Planning Discharge planning per case management. Sergei Larose December 03, 2016 09:01
[2016-12-03] MEDS: ENOXAPARIN SODIUM 40 MG/0.4 ML SYRINGE SQ SCH (15:19)
[2016-12-03 20:00] VITALS: BP 137/83; PULSE 85; RESP 18; TEMP 97.6; O2SAT 99
[2016-12-03] MEDS: diphenhydrAMINE HCL 25 MG CAP PO PRN (20:03)
[2016-12-03] MEDS: ALPRAZolam 1 MG TAB PO PRN (20:03)
[2016-12-04] MEDS: HYDROmorphone HCL 4 MG TAB PO PRN ×3 (05:56→23:02)
[2016-12-04 08:56] VITALS: BP_SYST 125; BP_SYST 126; BP_DIAS 72; BP_DIAS 80; PULSE 64; PULSE 79; RESP 18; TEMP 96; O2SAT 93
[2016-12-04] MEDS: SODIUM CHLORIDE 0.9% FLUSH 10 ML FLUSH IV FLUSH SCH ×2 (09:11→21:00)
[2016-12-04] MEDS: GABAPENTIN 400 MG CAP PO SCH ×3 (09:11→16:44)
[2016-12-04] MEDS: CEFUROXIME AXETIL 250 MG TAB PO SCH ×2 (09:11→21:29)
[2016-12-04] MEDS: DOCUSATE SODIUM 50 MG/SENNA 8.6 MG TAB PO SCH (09:11)
[2016-12-04] MEDS: FERROUS SULFATE 325 MG (65 MG ELEMENTAL IRON) TAB PO SCH ×2 (09:11→16:44)
[2016-12-04] MEDS: PANTOPRAZOLE SOD 40 MG DELAYED RELEASE TAB PO SCH (09:11)
[2016-12-04] MEDS: SODIUM HYPOCHLORITE 0.25% 500 ML BTL TOPICAL SCH (09:12)
[2016-12-04] MEDS: LACTIC ACID (AMMONIUM LACTATE) 12% LOTION 225 GM BTL TOPICAL SCH ×2 (09:12→20:28)
[2016-12-04] MEDS: ENOXAPARIN SODIUM 40 MG/0.4 ML SYRINGE SQ SCH (11:57)
--- NOTE | 2016-12-04 12:43 | HHI.PR ---
Subjective Remarks Patient seen and examined today for follow-up on multiple wounds, urinary tract infection. Patient is doing much better. Nursing staff to get him out of bed yesterday and he states that it felt good to be in a chair. Patient is on appropriate antibiotics for his urinary tract infection at this time. Objective Vitals Vital Signs Date Time Temp Pulse Resp B/P Pulse Ox O2 Delivery O2 Flow Rate FiO2 12/04/16 08:56 96.0 79 18 126/80 93 12/03/16 23:17 16 12/03/16 20:00 97.6 85 18 137/83 99 I/O 12/03/16 12/03/16 12/03/16 12/04/16 12/04/16 12/04/16 06:59 14:59 22:59 06:59 14:59 22:59 Intake Total 580 ml 1830 ml 480 ml Output Total 1500 ml 1651 ml 200 ml Balance -920 ml 179 ml 280 ml Intake Oral 580 ml 1830 ml 480 ml Output Urine Total 1500 ml 1650 ml 200 ml Stool Total 0 ml 1 ml 0 ml Result Diagram: 12/03/16 0740 12/03/16 0740 Objective Remarks GENERAL: Well-developed, well-nourished, in no acute distress. alert and orientated HEENT: Head is normocephalic without any lesions or masses noted. Facial features are symmetric. Eyes: Extraocular muscles are intact. Conjunctivae were clear. NECK: Supple without any masses. Trachea midline no deviation. No JVD, CARDIAC: Regular rhythm, regular rate. S1/S2 are heard. No murmurs gallops or rubs. LUNGS: Clear to auscultation bilaterally. No wheeze, rhonchi or rales. No use of accessory muscles on inspiration or expiration. ABDOMEN: Soft, nontender. Nondistended. Bowel sounds heard in all 4 quadrants. No organomegaly or masses. Negative rebound, negative guarding. Suprapubic catheter in place with yellow/clear urine. Colostomy noted EXTREMITIES: No edema, pulses are equal bilaterally. No cyanosis or clubbing NEUROLOGY: Mood and affect appear appropriate. Cranial nerves II through XII grossly intact. Procedures Debridement Urinary Catheter: Yes Assessment to: Continue Peterson insert reason: Prolonged Immobilization Date of Insertion: November 30, 2016 Vascular Central Line Catheter: No A/P Assessment and Plan Mr. Byrd is a 35-year-old male with PMH of Anxiety, Paraplegia, Neurogenic Bladder s/p Suprapubic Cath, Chronic UTI and Chronic Sacral Decubitus Ulcer who presented for evaluation of sacral wound. Recurrent complicated urinary tract infection with sepsis, improved Patient stating he has chills and feels that he has another urinary tract infection Patient with sinus tachycardia, leukocytosis, urinary tract infection replaced Peterson and obtained clean urine sample for urinalysis Discontinued Zosyn 3.375 g IV every 6 hours. Continue Ceftin 250 mg twice daily for 10 days Urine culture with Proteus sensitive to Ceftin Acute azotemia, resolved Continue IV fluids monitor renal function Stage IV Chronic Sacral, trochanter, scrotal Ulcer in a paraplegic patient, Present at time of admission. Wound care nurse re-consulted, appreciate recommendations, and continue managing wound Plastic surgery reevaluated the patient and indicates that wound are healing well. They made further recommendations. Wound VAC placement with Veraflow, 10/11. Wound VAC changes M/W/F Plastic surgery did perform excisional debridement of chronic decubitus of left trochanter, sacrum, right ischium, bases scrotal wound. 09/07/16 wound care orders written by plastic surgery Infectious disease consulted because of wound cultures with Proteus mirabilis, MRSA. Daptomycin was continued for 3 week duration for eradication. / Pain control Dilaudid 4 mg by mouth every 4 hours as needed for pain Bowel regimen with history of constipation. Monitor ostomy output. Whitney-Colace daily, Dulcolax as needed Neurogenic Bladder: Secondary to Paraplegia. Suprapubic catheter to be changed monthly last changed 11/30/16 Paraplegia: At baseline. Continue home medications. Trapeze setup in place Multi-Podus boots PT eval, recommends SNF, case management assisting. --Consulted OT who made recommendations for wheelchair. Recommendations given to case management to obtain wheelchair for patient Discussed with patient to increase daily functioning, getting out of bed to wheelchair, stretcher chair DVT Prophylaxis: SCD/Teds/lovenox. Discharge Planning Discharge planning per case management. Sergei Larose December 04, 2016 12:43
[2016-12-04] MEDS ORDERED: WHEEMIS3 (12:48)
[2016-12-04 20:00] VITALS: BP 137/90; PULSE 88; RESP 20; TEMP 98; O2SAT 98
[2016-12-04] MEDS: ALPRAZolam 1 MG TAB PO PRN (21:29)
[2016-12-04] MEDS: diphenhydrAMINE HCL 25 MG CAP PO PRN (23:01)
[2016-12-05] MEDS: diphenhydrAMINE HCL 25 MG CAP PO PRN ×2 (06:19→20:21)
[2016-12-05] MEDS: HYDROmorphone HCL 4 MG TAB PO PRN ×2 (06:19→20:21)
[2016-12-05 08:00] VITALS: BP 130/89; PULSE 78; RESP 18; TEMP 97.7; O2SAT 98
[2016-12-05] MEDS: PANTOPRAZOLE SOD 40 MG DELAYED RELEASE TAB PO SCH (08:15)
[2016-12-05] MEDS: SODIUM CHLORIDE 0.9% FLUSH 10 ML FLUSH IV FLUSH SCH ×2 (08:15→20:09)
[2016-12-05] MEDS: FERROUS SULFATE 325 MG (65 MG ELEMENTAL IRON) TAB PO SCH ×2 (08:15→17:09)
[2016-12-05] MEDS: GABAPENTIN 400 MG CAP PO SCH ×3 (08:15→17:09)
[2016-12-05] MEDS: CEFUROXIME AXETIL 250 MG TAB PO SCH ×2 (08:15→20:09)
[2016-12-05] MEDS: DOCUSATE SODIUM 50 MG/SENNA 8.6 MG TAB PO SCH (08:15)
[2016-12-05] MEDS: LACTIC ACID (AMMONIUM LACTATE) 12% LOTION 225 GM BTL TOPICAL SCH ×2 (08:18→20:10)
[2016-12-05] MEDS: SODIUM HYPOCHLORITE 0.25% 500 ML BTL TOPICAL SCH (08:19)
--- NOTE | 2016-12-05 11:21 | HHI.PR ---
Subjective Remarks Follow-up for decubitus ulcers, UTI. Patient denies any fevers or chills. Denies any abdominal pain. Objective Vitals Vital Signs Date Time Temp Pulse Resp B/P Pulse Ox O2 Delivery O2 Flow Rate FiO2 12/05/16 08:19 16 12/05/16 08:00 97.7 78 18 130/89 98 12/04/16 20:00 98.0 88 20 137/90 98 I/O 12/04/16 12/04/16 12/04/16 12/05/16 12/05/16 12/05/16 07:00 15:00 23:00 07:00 15:00 23:00 Intake Total 480 ml 480 ml 480 ml Output Total 200 ml 1520 ml 1475 ml Balance 280 ml -1040 ml -995 ml Intake Oral 480 ml 480 ml 480 ml IV Total 0 ml Output Urine Total 200 ml 1520 ml 1475 ml Stool Total 0 ml Result Diagram: 12/03/16 0740 12/03/1640 Objective Remarks GENERAL: Well-nourished well developed patient in no apparent distress sleeping when I enter the room. CARDIOVASCULAR: Regular rate and rhythm. RESPIRATORY: No accessory muscle use. Clear to auscultation. Breath sounds equal bilaterally. GASTROINTESTINAL: Abdomen distended, but, non-tender. Colostomy present. NEUROLOGICAL: Awake and alert. Normal speech. PSYCHIATRIC: Appropriate mood and affect. Urine in Peterson bag appears yellow, clear; sediment in tubing. Procedures Debridement Urinary Catheter: Yes Assessment to: Continue Peterson insert reason: Stage III/IV Press Ulcer Date of Insertion: November 30, 2016 Vascular Central Line Catheter: No A/P Problem List: (1) Sacral decubitus ulcer ICD Code: L89.159 Status: Chronic (2) UTI (urinary tract infection) ICD Code: N39.0 Status: Resolved (3) Constipation ICD Code: K59.00 Status: Resolved (4) Paraplegia ICD Code: G82.20 Status: Chronic (5) Neurogenic bladder ICD Code: N31.9 Status: Chronic Assessment and Plan Recurrent complicated urinary tract infection with sepsis, improved Patient with sinus tachycardia, leukocytosis, urinary tract infection Replaced Peterson and obtained clean urine sample for urinalysis Discontinued Zosyn 3.375 g IV every 6 hours. Continue Ceftin 250 mg twice daily for 10 days, till 12/12. Urine culture with Proteus sensitive to Ceftin Acute azotemia: Resolved S/p IV fluids monitor renal function Stage IV Chronic Sacral, trochanter, scrotal Ulcer in a paraplegic patient, Present at time of admission. Wound care nurse re-consulted, appreciate recommendations, and continue managing wound Plastic surgery reevaluated the patient and indicates that wound are healing well. They made further recommendations. Wound VAC placement with Veraflow, 10/11. Wound VAC changes M/W/F Plastic surgery did perform excisional debridement of chronic decubitus of left trochanter, sacrum, right ischium, bases scrotal wound. 09/07/16 wound care orders written by plastic surgery Infectious disease consulted because of wound cultures with Proteus mirabilis, MRSA. Daptomycin was continued for 3 week duration for eradication, /10/06. Pain control Dilaudid 4 mg by mouth every 4 hours as needed for pain Bowel regimen with history of constipation. Monitor ostomy output. Whitney-Colace daily, Dulcolax as needed Neurogenic Bladder: Secondary to Paraplegia. Suprapubic catheter to be changed monthly last changed 11/30/16 Paraplegia: At baseline. Continue home medications. Trapeze setup in place Multi-Podus boots PT eval, recommends SNF, case management assisting. --Consulted OT who made recommendations for wheelchair. Recommendations given to case management to obtain wheelchair for patient Discussed with patient to increase daily functioning, getting out of bed to wheelchair, stretcher chair R upper back wounds: First noted on 11/11. -Wound nurse following. Recommends cleansing unroofed bulla with wound cleanser and apply xeroform in single layer over wound beds and secure with bordered gauze, to be changed every other day and prn if saturated or dislodged. DVT Prophylaxis: SCD/Teds/Lovenox. Discharge Planning PT recommends rehabilitation, wheelchair with removal arms and legs. No OT recommended. 11/03: Awaiting [facility] to evaluate for placement. 11/13: Facility in [place] may consider. Problem Qualifiers (1) Sacral decubitus ulcer: Qualified Code: L89.154 - Decubitus ulcer of sacral region, stage 4 (2) UTI (urinary tract infection): Lnai Jensen December 05, 2016 11:21
[2016-12-05] MEDS: ENOXAPARIN SODIUM 40 MG/0.4 ML SYRINGE SQ SCH (17:10)
[2016-12-05 20:00] VITALS: BP 128/76; PULSE 86; RESP 20; TEMP 98; O2SAT 98
[2016-12-05] MEDS: ALPRAZolam 1 MG TAB PO PRN (20:21)
[2016-12-06 08:00] VITALS: BP_SYST 116; BP_SYST 130; BP_DIAS 75; BP_DIAS 80; PULSE 67; PULSE 77; RESP 20; TEMP 96.4; TEMP 97.5; O2SAT 95
[2016-12-06] MEDS: GABAPENTIN 400 MG CAP PO SCH ×3 (09:30→16:33)
[2016-12-06] MEDS: DOCUSATE SODIUM 50 MG/SENNA 8.6 MG TAB PO SCH (09:31)
[2016-12-06] MEDS: SODIUM CHLORIDE 0.9% FLUSH 10 ML FLUSH IV FLUSH SCH ×2 (09:31→21:17)
[2016-12-06] MEDS: CEFUROXIME AXETIL 250 MG TAB PO SCH ×2 (09:31→21:17)
[2016-12-06] MEDS: HYDROmorphone HCL 4 MG TAB PO PRN ×3 (09:31→21:58)
[2016-12-06] MEDS: FERROUS SULFATE 325 MG (65 MG ELEMENTAL IRON) TAB PO SCH ×2 (09:31→16:33)
[2016-12-06] MEDS: PANTOPRAZOLE SOD 40 MG DELAYED RELEASE TAB PO SCH (09:31)
[2016-12-06] MEDS: SODIUM HYPOCHLORITE 0.25% 500 ML BTL TOPICAL SCH (09:32)
[2016-12-06] MEDS: LACTIC ACID (AMMONIUM LACTATE) 12% LOTION 225 GM BTL TOPICAL SCH ×2 (09:32→21:18)
--- NOTE | 2016-12-06 09:40 | HHI.PR ---
Subjective Remarks Follow-up for decubitus ulcers, UTI. Patient has no acute complaints. Objective Vitals Vital Signs Date Time Temp Pulse Resp B/P Pulse Ox O2 Delivery O2 Flow Rate FiO2 12/06/16 08:00 96.4 77 20 116/80 95 12/05/16 20:00 98.0 86 20 128/76 98 I/O 12/05/16 12/05/16 12/05/16 12/06/16 12/06/16 12/06/16 07:00 15:00 23:00 07:00 15:00 23:00 Intake Total 480 ml 720 ml 720 ml Output Total 1475 ml 300 ml 575 ml 800 ml Balance -995 ml -300 ml 145 ml -80 ml Intake Oral 480 ml 720 ml 720 ml Output Urine Total 1475 ml 300 ml 575 ml 450 ml Drainage Total 350 ml Result Diagram: 12/03/1673912/03/16739 Objective Remarks GENERAL: Well developed patient in no apparent distress sleeping when I enter the room. CARDIOVASCULAR: Regular rate and rhythm. RESPIRATORY: No accessory muscle use. Clear to auscultation. Breath sounds equal bilaterally. GASTROINTESTINAL: Abdomen distended, but, non-tender. Colostomy present. NEUROLOGICAL: Awake and alert. Normal speech. PSYCHIATRIC: Quiet, normal mood and affect. Urine in Peterson bag appears yellow, clear. Procedures Debridement Urinary Catheter: Yes Assessment to: Continue Peterson insert reason: Stage III/IV Press Ulcer Date of Insertion: November 30, 2016 Vascular Central Line Catheter: No A/P Problem List: (1) Sacral decubitus ulcer ICD Code: L89.159 Status: Chronic (2) UTI (urinary tract infection) ICD Code: N39.0 Status: Resolved (3) Constipation ICD Code: K59.00 Status: Resolved (4) Paraplegia ICD Code: G82.20 Status: Chronic (5) Neurogenic bladder ICD Code: N31.9 Status: Chronic Assessment and Plan Recurrent complicated urinary tract infection with sepsis, improved Patient with sinus tachycardia, leukocytosis, urinary tract infection Replaced Peterson and obtained clean urine sample for urinalysis Discontinued Zosyn 3.375 g IV every 6 hours. Continue Ceftin 250 mg twice daily for 10 days, till 12/12. Urine culture with Proteus sensitive to Ceftin Acute azotemia: Resolved S/p IV fluids monitor renal function Stage IV Chronic Sacral, trochanter, scrotal Ulcer in a paraplegic patient, Present at time of admission. Wound care nurse re-consulted, appreciate recommendations, and continue managing wound Plastic surgery reevaluated the patient and indicates that wound are healing well. They made further recommendations. Wound VAC placement with Veraflow, 10/11. Wound VAC changes M/W/F Plastic surgery did perform excisional debridement of chronic decubitus of left trochanter, sacrum, right ischium, bases scrotal wound. 09/07/16 wound care orders written by plastic surgery Infectious disease consulted because of wound cultures with Proteus mirabilis, MRSA. Daptomycin was continued for 3 week duration for eradication, /10/06. Pain control Dilaudid 4 mg by mouth every 4 hours as needed for pain Bowel regimen with history of constipation. Monitor ostomy output. Whitney-Colace daily, Dulcolax as needed Neurogenic Bladder: Secondary to Paraplegia. Suprapubic catheter to be changed monthly last changed 11/30/16 Paraplegia: At baseline. Continue home medications. Trapeze setup in place Multi-Podus boots PT eval, recommends SNF, case management assisting. --Consulted OT who made recommendations for wheelchair. Recommendations given to case management to obtain wheelchair for patient Discussed with patient to increase daily functioning, getting out of bed to wheelchair, stretcher chair R upper back wounds: -Wound nurse following. Recommends cleansing unroofed bulla with wound cleanser and apply xeroform in single layer over wound beds and secure with bordered gauze, to be changed every other day and prn if saturated or dislodged. DVT Prophylaxis: SCD/Teds/Lovenox. Discharge Planning PT recommends rehabilitation, wheelchair with removal arms and legs. No OT recommended. 11/03: Awaiting [facility] SNFs to evaluate for placement. 11/13: Facility in [place] may consider. Problem Qualifiers (1) Sacral decubitus ulcer: Qualified Code: L89.154 - Decubitus ulcer of sacral region, stage 4 (2) UTI (urinary tract infection): Lani Jensen December 06, 2016 09:40
[2016-12-06] MEDS: ENOXAPARIN SODIUM 40 MG/0.4 ML SYRINGE SQ SCH (16:33)
[2016-12-06 20:00] VITALS: BP 136/89; PULSE 94; RESP 18; TEMP 96.7; O2SAT 98
[2016-12-06] MEDS: ALPRAZolam 1 MG TAB PO PRN (21:58)
[2016-12-06] MEDS: diphenhydrAMINE HCL 25 MG CAP PO PRN (21:58)
[2016-12-07 08:10] VITALS: BP 103/68; PULSE 91; RESP 14; TEMP 97; O2SAT 95
[2016-12-07] MEDS: GABAPENTIN 400 MG CAP PO SCH ×3 (08:11→18:57)
[2016-12-07] MEDS: CEFUROXIME AXETIL 250 MG TAB PO SCH ×2 (08:11→20:47)
[2016-12-07] MEDS: DOCUSATE SODIUM 50 MG/SENNA 8.6 MG TAB PO SCH (08:11)
[2016-12-07] MEDS: PANTOPRAZOLE SOD 40 MG DELAYED RELEASE TAB PO SCH (08:11)
[2016-12-07] MEDS: SODIUM CHLORIDE 0.9% FLUSH 10 ML FLUSH IV FLUSH SCH ×2 (08:12→20:46)
[2016-12-07] MEDS: FERROUS SULFATE 325 MG (65 MG ELEMENTAL IRON) TAB PO SCH ×2 (08:12→18:57)
[2016-12-07] MEDS: SODIUM HYPOCHLORITE 0.25% 500 ML BTL TOPICAL SCH (08:15)
[2016-12-07] MEDS: LACTIC ACID (AMMONIUM LACTATE) 12% LOTION 225 GM BTL TOPICAL SCH ×2 (08:15→20:49)
--- NOTE | 2016-12-07 15:39 | HHI.PR ---
Subjective Remarks Follow-up for decubitus ulcer, UTI. RN states patient stays up all night and sleeps all day. I spoke with the patient and he states he has always been like this. 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 Objective Vitals Vital Signs Date Time Temp Pulse Resp B/P Pulse Ox O2 Delivery O2 Flow Rate FiO2 12/07/16 08:10 97.0 91 14 103/68 95 12/06/16 20:00 96.7 94 18 136/89 98 12/06/16 17:49 14 I/O 12/06/16 12/06/16 12/06/16 12/07/16 12/07/16 12/07/16 07:00 15:00 23:00 07:00 15:00 23:00 Intake Total 720 ml 360 ml 600 ml 480 ml 200 ml Output Total 800 ml 800 ml 1875 ml 250 ml 200 ml Balance -80 ml -440 ml -1275 ml 230 ml 0 ml Intake Oral 720 ml 360 ml 600 ml 480 ml 200 ml Output Urine Total 450 ml 800 ml 1800 ml 250 ml 200 ml Stool Total 75 ml 0 ml Drainage Total 350 ml Result Diagram: 12/03/1640 12/03/1640 Objective Remarks GENERAL: Well developed patient in no apparent distress sleeping when I enter the room. CARDIOVASCULAR: Regular rate and rhythm. RESPIRATORY: No accessory muscle use. Clear to auscultation. Breath sounds equal bilaterally. GASTROINTESTINAL: Abdomen distended, but non-tender. NEUROLOGICAL: Awake and alert. Normal speech. PSYCHIATRIC: Normal mood and affect. Urine in Peterson bag appears yellow, clear. Procedures Debridement Urinary Catheter: Yes Assessment to: Continue Peterson insert reason: Stage III/IV Press Ulcer Date of Insertion: November 30, 2016 Vascular Central Line Catheter: No A/P Problem List: (1) Sacral decubitus ulcer ICD Code: L89.159 Status: Chronic (2) UTI (urinary tract infection) ICD Code: N39.0 Status: Resolved (3) Constipation ICD Code: K59.00 Status: Resolved (4) Paraplegia ICD Code: G82.20 Status: Chronic (5) Neurogenic bladder ICD Code: N31.9 Status: Chronic Assessment and Plan Recurrent complicated urinary tract infection with sepsis, improved Patient with sinus tachycardia, leukocytosis, urinary tract infection Replaced Peterson and obtained clean urine sample for urinalysis Discontinued Zosyn 3.375 g IV every 6 hours. Continue Ceftin 250 mg twice daily for 10 days, till 12/12. Urine culture with Proteus sensitive to Ceftin Acute azotemia: Resolved S/p IV fluids Monitor renal function periodically Stage IV Chronic Sacral, trochanter, scrotal Ulcer in a paraplegic patient, Present at time of admission. Wound care nurse re-consulted, appreciate recommendations, and continue managing wound Plastic surgery reevaluated the patient and indicates that wound are healing well. They made further recommendations. Wound VAC placement with Veraflow, 10/11. Wound VAC changes M/W/F Plastic surgery did perform excisional debridement of chronic decubitus of left trochanter, sacrum, right ischium, bases scrotal wound. Infectious disease consulted because of wound cultures with Proteus mirabilis, MRSA. Daptomycin was continued for 3 week duration for eradication, /10/06. Pain control Dilaudid 4 mg by mouth every 4 hours as needed for pain 12/03: Wound care orders per plastics; advises continuing with wound vac to hip wound but discontinue wound VAC to sacral wound and use padded sacral dressing if needed. Bowel regimen with history of constipation. Monitor ostomy output. Whitney-Colace daily, Dulcolax as needed Neurogenic Bladder: Secondary to Paraplegia. Suprapubic catheter to be changed monthly last changed 11/30/16 Paraplegia: At baseline. Continue home medications. Trapeze setup in place Multi-Podus boots PT eval, recommends SNF, case management assisting. --Consulted OT who made recommendations for wheelchair. Recommendations given to case management to obtain wheelchair for patient Discussed with patient to increase daily functioning, getting out of bed to wheelchair, stretcher chair R upper back wounds: -Wound nurse following. Recommends cleansing unroofed bulla with wound cleanser and apply xeroform in single layer over wound beds and secure with bordered gauze, to be changed every other day and prn if saturated or dislodged. DVT Prophylaxis: SCD/Teds/Lovenox. Discharge Planning PT recommends rehabilitation, wheelchair with removal arms and legs. No OT recommended. 11/03: Awaiting [facility] to evaluate for placement. 11/13: Facility in [place] may consider. Problem Qualifiers (1) Sacral decubitus ulcer: Qualified Code: L89.154 - Decubitus ulcer of sacral region, stage 4 (2) UTI (urinary tract infection): Lani Jensen December 07, 2016 15:38
[2016-12-07] MEDS: ENOXAPARIN SODIUM 40 MG/0.4 ML SYRINGE SQ SCH (15:40)
[2016-12-07 20:00] VITALS: BP 119/85; PULSE 71; RESP 18; TEMP 96.6; O2SAT 98
[2016-12-07] MEDS: HYDROmorphone HCL 4 MG TAB PO PRN (20:48)
[2016-12-07] MEDS: ALPRAZolam 1 MG TAB PO PRN (20:48)
[2016-12-07] MEDS: diphenhydrAMINE HCL 25 MG CAP PO PRN (20:48)
[2016-12-08 08:00] VITALS: BP 127/75; PULSE 73; RESP 20; TEMP 96.7; O2SAT 97
[2016-12-08] MEDS: PANTOPRAZOLE SOD 40 MG DELAYED RELEASE TAB PO SCH (08:20)
[2016-12-08] MEDS: CEFUROXIME AXETIL 250 MG TAB PO SCH ×2 (08:20→20:52)
[2016-12-08] MEDS: GABAPENTIN 400 MG CAP PO SCH ×3 (08:20→18:28)
[2016-12-08] MEDS: FERROUS SULFATE 325 MG (65 MG ELEMENTAL IRON) TAB PO SCH ×2 (08:20→18:28)
[2016-12-08] MEDS: HYDROmorphone HCL 4 MG TAB PO PRN ×2 (08:20→18:28)
[2016-12-08] MEDS: DOCUSATE SODIUM 50 MG/SENNA 8.6 MG TAB PO SCH (08:20)
[2016-12-08] MEDS: SODIUM HYPOCHLORITE 0.25% 500 ML BTL TOPICAL SCH (08:23)
[2016-12-08] MEDS: LACTIC ACID (AMMONIUM LACTATE) 12% LOTION 225 GM BTL TOPICAL SCH ×2 (08:23→20:55)
[2016-12-08] MEDS: SODIUM CHLORIDE 0.9% FLUSH 10 ML FLUSH IV FLUSH SCH (08:24)
--- NOTE | 2016-12-08 11:51 | HHI.PR ---
Subjective Remarks Follow-up for decubitus ulcers, UTI. Patient is well and has no acute complaints. Objective Vitals Vital Signs Date Time Temp Pulse Resp B/P Pulse Ox O2 Delivery O2 Flow Rate FiO2 12/08/16 08:00 96.7 73 20 127/75 97 12/07/16 21:48 16 12/07/16 20:00 96.6 71 18 119/85 98 I/O 12/07/16 12/07/16 12/07/16 12/08/16 12/08/16 12/08/16 07:00 15:00 23:00 07:00 15:00 23:00 Intake Total 480 ml 200 ml 560 ml 480 ml Output Total 250 ml 200 ml 300 ml 675 ml Balance 230 ml 0 ml 260 ml -195 ml Intake Oral 480 ml 200 ml 560 ml 480 ml Output Urine Total 250 ml 200 ml 250 ml 675 ml Stool Total 0 ml 50 ml 0 ml Objective Remarks GENERAL: Well developed patient in no apparent distress. CARDIOVASCULAR: Regular rate and rhythm. RESPIRATORY: No accessory muscle use. Clear to auscultation. Breath sounds equal bilaterally. GASTROINTESTINAL: Abdomen distended, but non-tender. Colostomy present with formed stool. NEUROLOGICAL: Awake and alert. Normal speech. PSYCHIATRIC: Normal mood and affect. Urine in Peterson bag appears yellow, clear. Procedures Debridement Urinary Catheter: Yes Assessment to: Continue Peterson insert reason: Stage III/IV Press Ulcer Date of Insertion: November 30, 2016 Vascular Central Line Catheter: No A/P Problem List: (1) Sacral decubitus ulcer ICD Code: L89.159 Status: Chronic (2) UTI (urinary tract infection) ICD Code: N39.0 Status: Resolved (3) Constipation ICD Code: K59.00 Status: Resolved (4) Paraplegia ICD Code: G82.20 Status: Chronic (5) Neurogenic bladder ICD Code: N31.9 Status: Chronic Assessment and Plan Recurrent complicated urinary tract infection with sepsis, improved Patient with sinus tachycardia, leukocytosis, urinary tract infection Replaced Peterson and obtained clean urine sample for urinalysis Discontinued Zosyn 3.375 g IV every 6 hours. Continue Ceftin 250 mg twice daily for 10 days, till 12/12. Urine culture with Proteus sensitive to Ceftin Acute azotemia: Resolved S/p IV fluids Monitor renal function periodically Stage IV Chronic Sacral, trochanter, scrotal Ulcer in a paraplegic patient, Present at time of admission. Wound care nurse re-consulted, appreciate recommendations, and continue managing wound Plastic surgery reevaluated the patient and indicates that wound are healing well. They made further recommendations. Wound VAC placement with Veraflow, 10/11. Wound VAC changes M/W/F Plastic surgery did perform excisional debridement of chronic decubitus of left trochanter, sacrum, right ischium, bases scrotal wound. Infectious disease consulted because of wound cultures with Proteus mirabilis, MRSA. Daptomycin was continued for 3 week duration for eradication, 09/29//10/06. Pain control Dilaudid 4 mg by mouth every 4 hours as needed for pain 12/03: Wound care orders per plastics; advises continuing with wound vac to hip wound but discontinue wound VAC to sacral wound and use padded sacral dressing if needed. Bowel regimen with history of constipation. Monitor ostomy output. Whitney-Colace daily, Dulcolax as needed Neurogenic Bladder: Secondary to Paraplegia. Suprapubic catheter to be changed monthly last changed 11/30/16 Paraplegia: At baseline. Continue home medications. Trapeze setup in place Multi-Podus boots PT eval, recommends SNF, case management assisting. --Consulted OT who made recommendations for wheelchair. Recommendations given to case management to obtain wheelchair for patient Discussed with patient to increase daily functioning, getting out of bed to wheelchair, stretcher chair R upper back wounds: -Wound nurse following. Recommends cleansing unroofed bulla with wound cleanser and apply xeroform in single layer over wound beds and secure with bordered gauze, to be changed every other day and prn if saturated or dislodged. DVT Prophylaxis: SCD/Teds/Lovenox. Discharge Planning PT recommends rehabilitation, wheelchair with removal arms and legs. No OT recommended. 11/03: Awaiting [facility] to evaluate for placement. 11/13: Facility in [place] may consider. Problem Qualifiers (1) Sacral decubitus ulcer: Qualified Code: L89.154 - Decubitus ulcer of sacral region, stage 4 (2) UTI (urinary tract infection): Lani Jensen December 08, 2016 11:51
[2016-12-08] MEDS: ENOXAPARIN SODIUM 40 MG/0.4 ML SYRINGE SQ SCH (18:28)
[2016-12-08 19:15] VITALS: BP 150/97; PULSE 80; RESP 16; TEMP 98.3; O2SAT 98
[2016-12-08] MEDS: ALPRAZolam 1 MG TAB PO PRN (20:52)
[2016-12-08] MEDS: diphenhydrAMINE HCL 25 MG CAP PO PRN (20:52)
[2016-12-09] MEDS: HYDROmorphone HCL 4 MG TAB PO PRN ×3 (00:38→22:37)
[2016-12-09 08:00] VITALS: BP 102/67; PULSE 76; RESP 19; TEMP 97.6; O2SAT 95
[2016-12-09] MEDS: LACTIC ACID (AMMONIUM LACTATE) 12% LOTION 225 GM BTL TOPICAL SCH ×2 (09:00→22:40)
[2016-12-09] MEDS: SODIUM HYPOCHLORITE 0.25% 500 ML BTL TOPICAL SCH (09:00)
[2016-12-09] MEDS: PANTOPRAZOLE SOD 40 MG DELAYED RELEASE TAB PO SCH (09:36)
[2016-12-09] MEDS: CEFUROXIME AXETIL 250 MG TAB PO SCH ×2 (09:36→22:38)
[2016-12-09] MEDS: FERROUS SULFATE 325 MG (65 MG ELEMENTAL IRON) TAB PO SCH ×2 (09:36→17:02)
[2016-12-09] MEDS: GABAPENTIN 400 MG CAP PO SCH ×3 (09:36→17:02)
[2016-12-09] MEDS: DOCUSATE SODIUM 50 MG/SENNA 8.6 MG TAB PO SCH (09:36)
--- NOTE | 2016-12-09 12:07 | HHI.PR ---
Subjective Remarks Follow-up for decubitus ulcers. Patient has no acute complaints. Objective Vitals Vital Signs Date Time Temp Pulse Resp B/P Pulse Ox O2 Delivery O2 Flow Rate FiO2 12/09/16 08:00 97.6 76 19 102/67 95 12/09/16 01:38 16 12/08/16 19:15 98.3 80 16 150/97 98 I/O 12/08/16 12/08/16 12/08/16 12/09/16 12/09/16 12/09/16 07:00 15:00 23:00 07:00 15:00 23:00 Intake Total 480 ml 960 ml 700 ml Output Total 675 ml 1550 ml Balance -195 ml -590 ml 700 ml Intake Oral 480 ml 960 ml 700 ml Output Urine Total 675 ml 1550 ml Stool Total 0 ml Objective Remarks GENERAL: Well developed patient in no apparent distress. CARDIOVASCULAR: Regular rate and rhythm. RESPIRATORY: No accessory muscle use. Clear to auscultation. Breath sounds equal bilaterally. GASTROINTESTINAL: Abdomen distended, but non-tender. Colostomy present. NEUROLOGICAL: Awake and alert. Normal speech. PSYCHIATRIC: Normal mood and affect. Procedures Debridement Urinary Catheter: Yes Assessment to: Continue Peterson insert reason: Stage III/IV Press Ulcer Date of Insertion: November 30, 2016 Vascular Central Line Catheter: No A/P Problem List: (1) Sacral decubitus ulcer ICD Code: L89.159 Status: Chronic (2) UTI (urinary tract infection) ICD Code: N39.0 Status: Resolved (3) Constipation ICD Code: K59.00 Status: Resolved (4) Paraplegia ICD Code: G82.20 Status: Chronic (5) Neurogenic bladder ICD Code: N31.9 Status: Chronic Assessment and Plan Recurrent complicated urinary tract infection with sepsis, improved Patient with sinus tachycardia, leukocytosis, urinary tract infection Replaced Peterson and obtained clean urine sample for urinalysis Discontinued Zosyn 3.375 g IV every 6 hours. Continue Ceftin 250 mg twice daily for 10 days, till 12/12. Urine culture with Proteus sensitive to Ceftin Acute azotemia: Resolved S/p IV fluids Monitor renal function periodically Stage IV Chronic Sacral, trochanter, scrotal Ulcer in a paraplegic patient, Present at time of admission. Wound care nurse re-consulted, appreciate recommendations, and continue managing wound Plastic surgery reevaluated the patient and indicates that wound are healing well. They made further recommendations. Wound VAC placement with Veraflow, 10/11. Wound VAC changes M/W/F Plastic surgery did perform excisional debridement of chronic decubitus of left trochanter, sacrum, right ischium, bases scrotal wound. Infectious disease consulted because of wound cultures with Proteus mirabilis, MRSA. Daptomycin was continued for 3 week duration for eradication, /10/06. Pain control Dilaudid 4 mg by mouth every 4 hours as needed for pain 12/03: Wound care orders per plastics; advises continuing with wound vac to hip wound but discontinue wound VAC to sacral wound and use padded sacral dressing if needed. Bowel regimen with history of constipation. Monitor ostomy output. Whitney-Colace daily, Dulcolax as needed Neurogenic Bladder: Secondary to Paraplegia. Suprapubic catheter to be changed monthly last changed 11/30/16 Paraplegia: At baseline. Continue home medications. Trapeze setup in place Multi-Podus boots PT eval, recommends SNF, case management assisting. --Consulted OT who made recommendations for wheelchair. Recommendations given to case management to obtain wheelchair for patient Discussed with patient to increase daily functioning, getting out of bed to wheelchair, stretcher chair R upper back wounds: -Wound nurse following. Recommends cleansing unroofed bulla with wound cleanser and apply xeroform in single layer over wound beds and secure with bordered gauze, to be changed every other day and prn if saturated or dislodged. DVT Prophylaxis: SCD/Teds/Lovenox. Discharge Planning PT recommends rehabilitation, wheelchair with removal arms and legs. No OT recommended. 11/03: Awaiting [facility] to evaluate for placement. 11/13: Facility in [place] may consider. Problem Qualifiers (1) Sacral decubitus ulcer: Qualified Code: L89.154 - Decubitus ulcer of sacral region, stage 4 (2) UTI (urinary tract infection): Lani Jensen December 09, 2016 12:07
[2016-12-09] MEDS: ENOXAPARIN SODIUM 40 MG/0.4 ML SYRINGE SQ SCH (17:02)
[2016-12-09 21:01] VITALS: BP 116/76; PULSE 76; RESP 14; TEMP 98.3; O2SAT 96
[2016-12-09] MEDS: diphenhydrAMINE HCL 25 MG CAP PO PRN (22:37)
[2016-12-09] MEDS: ALPRAZolam 1 MG TAB PO PRN (22:38)
[2016-12-10 08:00] VITALS: BP 111/86; PULSE 74; RESP 19; TEMP 97; O2SAT 94
[2016-12-10] MEDS: DOCUSATE SODIUM 50 MG/SENNA 8.6 MG TAB PO SCH (09:07)
[2016-12-10] MEDS: GABAPENTIN 400 MG CAP PO SCH ×3 (09:07→16:47)
[2016-12-10] MEDS: CEFUROXIME AXETIL 250 MG TAB PO SCH ×2 (09:07→21:05)
[2016-12-10] MEDS: FERROUS SULFATE 325 MG (65 MG ELEMENTAL IRON) TAB PO SCH ×2 (09:08→16:47)
[2016-12-10] MEDS: SODIUM HYPOCHLORITE 0.25% 500 ML BTL TOPICAL SCH (09:08)
[2016-12-10] MEDS: HYDROmorphone HCL 4 MG TAB PO PRN ×3 (09:08→23:03)
[2016-12-10] MEDS: PANTOPRAZOLE SOD 40 MG DELAYED RELEASE TAB PO SCH (09:08)
[2016-12-10] MEDS: LACTIC ACID (AMMONIUM LACTATE) 12% LOTION 225 GM BTL TOPICAL SCH ×2 (09:08→21:07)
--- NOTE | 2016-12-10 09:28 | HHI.PR ---
Subjective Remarks Follow-up for decubitus ulcer, UTI. Patient has no acute complaints. Objective Vitals Vital Signs Date Time Temp Pulse Resp B/P Pulse Ox O2 Delivery O2 Flow Rate FiO2 12/09/16 21:01 98.3 76 14 116/76 96 12/09/16 13:20 18 I/O 12/09/16 12/09/16 12/09/16 12/10/16 12/10/16 12/10/16 06:59 14:59 22:59 06:59 14:59 22:59 Intake Total 700 ml 500 ml Output Total 1600 ml 800 ml Balance 700 ml 500 ml -1600 ml -800 ml Intake Oral 700 ml 500 ml Output Urine Total 1600 ml 800 ml # Bowel Movements 0 Objective Remarks GENERAL: Well developed patient in no apparent distress sleeping when I enter the room. CARDIOVASCULAR: Regular rate and rhythm. RESPIRATORY: No accessory muscle use. Clear to auscultation. Breath sounds equal bilaterally. GASTROINTESTINAL: Abdomen distended, but non-tender. Colostomy with formed stool present. NEUROLOGICAL: Awake and alert. Normal speech. PSYCHIATRIC: Normal mood and affect. Procedures Debridement Urinary Catheter: Yes Assessment to: Continue Peterson insert reason: Stage III/IV Press Ulcer Date of Insertion: November 30, 2016 Vascular Central Line Catheter: No A/P Problem List: (1) Sacral decubitus ulcer ICD Code: L89.159 Status: Chronic (2) UTI (urinary tract infection) ICD Code: N39.0 Status: Resolved (3) Constipation ICD Code: K59.00 Status: Resolved (4) Paraplegia ICD Code: G82.20 Status: Chronic (5) Neurogenic bladder ICD Code: N31.9 Status: Chronic Assessment and Plan Recurrent complicated urinary tract infection with sepsis, improved Patient with sinus tachycardia, leukocytosis, urinary tract infection Replaced Peterson and obtained clean urine sample for urinalysis Discontinued Zosyn 3.375 g IV every 6 hours. Continue Ceftin 250 mg twice daily for 10 days, till 12/12. Urine culture with Proteus sensitive to Ceftin Acute azotemia: Resolved S/p IV fluids Monitor renal function periodically Stage IV Chronic Sacral, trochanter, scrotal Ulcer in a paraplegic patient, Present at time of admission. Wound care nurse re-consulted, appreciate recommendations, and continue managing wound Plastic surgery reevaluated the patient and indicates that wound are healing well. They made further recommendations. Wound VAC placement with Veraflow, 10/11. Wound VAC changes M/W/F Plastic surgery did perform excisional debridement of chronic decubitus of left trochanter, sacrum, right ischium, bases scrotal wound. Infectious disease consulted because of wound cultures with Proteus mirabilis, MRSA. Daptomycin was continued for 3 week duration for eradication, /10/06. Pain control Dilaudid 4 mg by mouth every 4 hours as needed for pain 12/03: Wound care orders per plastics; advises continuing with wound vac to hip wound but discontinue wound VAC to sacral wound and use padded sacral dressing if needed. Bowel regimen with history of constipation. Monitor ostomy output. Whitney-Colace daily, Dulcolax as needed Neurogenic Bladder: Secondary to Paraplegia. Suprapubic catheter to be changed monthly last changed 11/30/16 Paraplegia: At baseline. Continue home medications. Trapeze setup in place Multi-Podus boots PT eval, recommends SNF, case management assisting. --Consulted OT who made recommendations for wheelchair. Recommendations given to case management to obtain wheelchair for patient Discussed with patient to increase daily functioning, getting out of bed to wheelchair, stretcher chair R upper back wounds: -Wound nurse following. Recommends cleansing unroofed bulla with wound cleanser and apply xeroform in single layer over wound beds and secure with bordered gauze, to be changed every other day and prn if saturated or dislodged. DVT Prophylaxis: SCD/Teds/Lovenox. Discharge Planning PT recommends rehabilitation, wheelchair with removal arms and legs. No OT recommended. 11/03: Awaiting [facility] to evaluate for placement. 11/13: Facility in [place] may consider. Problem Qualifiers (1) Sacral decubitus ulcer: Qualified Code: L89.154 - Decubitus ulcer of sacral region, stage 4 (2) UTI (urinary tract infection): Lani Jensen December 10, 2016 09:28
[2016-12-10] MEDS: ENOXAPARIN SODIUM 40 MG/0.4 ML SYRINGE SQ SCH (11:58)
[2016-12-10 20:00] VITALS: BP 128/97; PULSE 77; RESP 20; TEMP 97.3; O2SAT 97
[2016-12-10] MEDS: diphenhydrAMINE HCL 25 MG CAP PO PRN (21:05)
[2016-12-10] MEDS: ALPRAZolam 1 MG TAB PO PRN (21:05)
[2016-12-11 08:00] VITALS: BP 143/81; PULSE 84; RESP 20; TEMP 96.2; O2SAT 97
[2016-12-11] MEDS: PANTOPRAZOLE SOD 40 MG DELAYED RELEASE TAB PO SCH (08:47)
[2016-12-11] MEDS: CEFUROXIME AXETIL 250 MG TAB PO SCH ×2 (08:47→21:24)
[2016-12-11] MEDS: FERROUS SULFATE 325 MG (65 MG ELEMENTAL IRON) TAB PO SCH ×2 (08:47→18:17)
[2016-12-11] MEDS: DOCUSATE SODIUM 50 MG/SENNA 8.6 MG TAB PO SCH (08:47)
[2016-12-11] MEDS: GABAPENTIN 400 MG CAP PO SCH ×3 (08:47→18:17)
[2016-12-11] MEDS: HYDROmorphone HCL 4 MG TAB PO PRN ×3 (08:48→21:29)
[2016-12-11] MEDS: LACTIC ACID (AMMONIUM LACTATE) 12% LOTION 225 GM BTL TOPICAL SCH ×2 (08:49→21:24)
[2016-12-11] MEDS: SODIUM HYPOCHLORITE 0.25% 500 ML BTL TOPICAL SCH (09:00)
--- NOTE | 2016-12-11 10:01 | HHI.PR ---
Subjective Remarks Follow-up for decubitus ulcers. Patient has no acute complaints. Objective Vitals Vital Signs Date Time Temp Pulse Resp B/P Pulse Ox O2 Delivery O2 Flow Rate FiO2 12/11/16 08:00 96.2 84 20 143/81 97 12/10/16 20:00 97.3 77 20 128/97 97 I/O 12/10/16 12/10/16 12/10/16 12/11/16 12/11/16 12/11/16 06:59 14:59 22:59 06:59 14:59 22:59 Intake Total 480 ml 600 ml Output Total 800 ml 3850 ml 550 ml Balance -800 ml -3370 ml 50 ml Intake Oral 480 ml 600 ml Output Urine Total 800 ml 3850 ml 550 ml # Bowel Movements 1 Objective Remarks GENERAL: Well developed patient in no apparent distress. CARDIOVASCULAR: Regular rate and rhythm. RESPIRATORY: No accessory muscle use. Clear to auscultation. Breath sounds equal bilaterally. GASTROINTESTINAL: Abdomen distended, but non-tender. Colostomy with stool present. NEUROLOGICAL: Awake and alert. Normal speech. PSYCHIATRIC: Normal mood and affect. Procedures Debridement Urinary Catheter: Yes Assessment to: Continue Peterson insert reason: Stage III/IV Press Ulcer Date of Insertion: November 30, 2016 Vascular Central Line Catheter: No A/P Problem List: (1) Sacral decubitus ulcer ICD Code: L89.159 Status: Chronic (2) UTI (urinary tract infection) ICD Code: N39.0 Status: Resolved (3) Constipation ICD Code: K59.00 Status: Resolved (4) Paraplegia ICD Code: G82.20 Status: Chronic (5) Neurogenic bladder ICD Code: N31.9 Status: Chronic Assessment and Plan Recurrent complicated urinary tract infection with sepsis, improved Patient with sinus tachycardia, leukocytosis, urinary tract infection Replaced Peterson and obtained clean urine sample for urinalysis Discontinued Zosyn 3.375 g IV every 6 hours. Continue Ceftin 250 mg twice daily for 10 days, till 12/12. Urine culture with Proteus sensitive to Ceftin Acute azotemia: Resolved S/p IV fluids Monitor renal function periodically Stage IV Chronic Sacral, trochanter, scrotal Ulcer in a paraplegic patient, Present at time of admission. Wound care nurse re-consulted, appreciate recommendations, and continue managing wound Plastic surgery reevaluated the patient and indicates that wound are healing well. They made further recommendations. Wound VAC placement with Veraflow, 10/11. Wound VAC changes M/W/F Plastic surgery did perform excisional debridement of chronic decubitus of left trochanter, sacrum, right ischium, bases scrotal wound. Infectious disease consulted because of wound cultures with Proteus mirabilis, MRSA. Daptomycin was continued for 3 week duration for eradication, 09/29//10/06. Pain control Dilaudid 4 mg by mouth every 4 hours as needed for pain 12/03: Wound care orders per plastics; advises continuing with wound vac to hip wound but discontinue wound VAC to sacral wound and use padded sacral dressing if needed. Bowel regimen with history of constipation. Monitor ostomy output. Whitney-Colace daily, Dulcolax as needed Neurogenic Bladder: Secondary to Paraplegia. Suprapubic catheter to be changed monthly last changed 11/30/16 Paraplegia: At baseline. Continue home medications. Trapeze setup in place Multi-Podus boots PT eval, recommends SNF, case management assisting. --Consulted OT who made recommendations for wheelchair. Recommendations given to case management to obtain wheelchair for patient Discussed with patient to increase daily functioning, getting out of bed to wheelchair, stretcher chair R upper back wounds: -Wound nurse following. Recommends cleansing unroofed bulla with wound cleanser and apply xeroform in single layer over wound beds and secure with bordered gauze, to be changed every other day and prn if saturated or dislodged. DVT Prophylaxis: SCD/Teds/Lovenox. Discharge Planning PT recommends rehabilitation, wheelchair with removal arms and legs. No OT recommended. 11/03: Awaiting [facility] to evaluate for placement. 11/13: Facility in [place] may consider. Problem Qualifiers (1) Sacral decubitus ulcer: Qualified Code: L89.154 - Decubitus ulcer of sacral region, stage 4 (2) UTI (urinary tract infection): Lani Jensen December 11, 2016 10:01
[2016-12-11] MEDS: ENOXAPARIN SODIUM 40 MG/0.4 ML SYRINGE SQ SCH (16:16)
[2016-12-11 20:00] VITALS: BP 151/86; PULSE 88; RESP 20; TEMP 97.3; O2SAT 95
[2016-12-11] MEDS: diphenhydrAMINE HCL 25 MG CAP PO PRN (21:29)
[2016-12-11] MEDS: ALPRAZolam 1 MG TAB PO PRN (21:29)
[2016-12-12 08:00] VITALS: BP 108/85; PULSE 85; RESP 18; TEMP 96.4; O2SAT 95
[2016-12-12] MEDS: PANTOPRAZOLE SOD 40 MG DELAYED RELEASE TAB PO SCH (08:41)
[2016-12-12] MEDS: GABAPENTIN 400 MG CAP PO SCH ×3 (08:41→17:25)
[2016-12-12] MEDS: CEFUROXIME AXETIL 250 MG TAB PO SCH (08:41)
[2016-12-12] MEDS: FERROUS SULFATE 325 MG (65 MG ELEMENTAL IRON) TAB PO SCH ×2 (08:41→17:25)
[2016-12-12] MEDS: HYDROmorphone HCL 4 MG TAB PO PRN ×2 (08:41→21:09)
[2016-12-12] MEDS: DOCUSATE SODIUM 50 MG/SENNA 8.6 MG TAB PO SCH ×2 (08:41→21:00)
[2016-12-12] MEDS: SODIUM HYPOCHLORITE 0.25% 500 ML BTL TOPICAL SCH (08:43)
[2016-12-12] MEDS: LACTIC ACID (AMMONIUM LACTATE) 12% LOTION 225 GM BTL TOPICAL SCH ×2 (08:43→21:10)
--- NOTE | 2016-12-12 10:10 | HHI.PR ---
Subjective Remarks Follow up for decubitus ulcers, paraplegia. Patient seen and examined, laying in bed just waking up. Denies any chest pain, sob, or any new issues. States he slept well. Objective Vitals Vital Signs Date Time Temp Pulse Resp B/P Pulse Ox O2 Delivery O2 Flow Rate FiO2 12/12/16 08:00 96.4 85 18 108/85 95 12/11/16 20:00 97.3 88 20 151/86 95 12/11/16 17:16 18 I/O 12/11/16 12/11/16 12/11/16 12/12/16 12/12/16 12/12/16 06:59 14:59 22:59 06:59 14:59 22:59 Intake Total 600 ml 960 ml 600 ml 120 ml Output Total 550 ml 1150 ml 950 ml 250 ml Balance 50 ml -190 ml -350 ml -130 ml Intake Oral 600 ml 960 ml 600 ml 120 ml Output Urine Total 550 ml 650 ml 950 ml 250 ml Stool Total 0 ml 0 ml Drainage Total 500 ml Imaging Last Impressions Chest X-Ray 10/05/16 0000 Signed Impressions: Service Date/Time: September 13:25 - CONCLUSION: Right upper extremity PICC line in satisfactory position. No evidence of acute cardiopulmonary process. Mike Roa MD Abdomen X-Ray 07/09/16 1518 Signed Impressions: Service Date/Time: Saturday, July 09, 2016 17:06 - CONCLUSION: 1. Moderate amount of stool. 2. No dilated loops of bowel or pneumoperitoneum. 3. Bilateral hip dysplasia. Wes Callejas Jr., MD Abdomen/Pelvis CT 06/08/16 1341 Signed Impressions: Service Date/Time: May 18:40 - CONCLUSION: 1. The balloon portion of the suprapubic catheter is inside the prosthetic urethra. 2. Probable hepatic hemangioma. Ryanne Maya MD Objective Remarks GENERAL: Well developed patient in no apparent distress. Laying in bed. CARDIOVASCULAR: Regular rate and rhythm. No murmurs noted. RESPIRATORY: No accessory muscle use. Clear to auscultation. Breath sounds equal bilaterally. GASTROINTESTINAL: Abdomen non distended, non-tender. Colostomy with stool present. NEUROLOGICAL: Awake and alert. Normal speech. PSYCHIATRIC: Normal mood and affect. Procedures Debridement Medications and IVs Current Medications Medications (Trade) Dose Ordered Sig/Haja Route Start Time Stop Time Status Last Admin (Dulcolax Supp) 10 mg DAILY PRN IA 06/08/16 20:00 (Tylenol) 650 mg Q6H PRN PO 06/08/16 20:00 10/17/16 13:35 (Xanax) 1 mg Q6H PRN PO 06/08/16 20:00 12/11/16 21:29 (Ferrous Sulfate) 325 mg BIDPC PO 06/09/16 09:00 12/12/16 08:41 (Neurontin) 800 mg TID PO 06/09/16 09:00 12/12/16 08:41 (ZyPREXA) 15 mg HS PO 06/08/16 21:00 12/11/16 21:24 (Protonix) 40 mg DAILY PO 06/09/16 09:00 12/12/16 08:41 (Benadryl) 25 mg Q4H PRN PO 06/23/16 16:00 12/11/16 21:29 (Whitney-Colace) 1 tab DAILY PO 07/11/16 09:00 12/12/16 08:41 (Lac-Hydrin 12% Lotion) 1 applic BID TOPICAL 07/24/16 11:00 12/12/16 08:43 (Zofran Odt) 4 mg Q6H PRN PO 08/11/16 07:15 11/30/16 12:44 (Silver Nitrate Applicators) 1 appl DAILY PRN TOPICAL 08/22/16 10:45 (Lovenox Inj) 40 mg Q24H SQ 08/28/16 16:00 12/11/16 16:16 (Dilaudid) 4 mg Q6HR PRN PO 10/09/16 11:45 12/12/16 08:41 (Dakin'S 0.25% Soln) 500 ml DAILY TOPICAL 11/18/16 09:00 12/12/16 08:43 (Ceftin) 250 mg Q12HR PO 12/02/16 12:45 12/12/16 12:44 12/12/16 08:41 Urinary Catheter: Yes Assessment to: Continue Peterson insert reason: Stage III/IV Press Ulcer Date of Insertion: November 30, 2016 A/P Problem List: (1) Sacral decubitus ulcer ICD Code: L89.159 Status: Chronic (2) UTI (urinary tract infection) ICD Code: N39.0 Status: Resolved (3) Constipation ICD Code: K59.00 Status: Resolved (4) Paraplegia ICD Code: G82.20 Status: Chronic (5) Neurogenic bladder ICD Code: N31.9 Status: Chronic Assessment and Plan Recurrent complicated urinary tract infection with sepsis, improved Patient with sinus tachycardia, leukocytosis, urinary tract infection Replaced Peterson and obtained clean urine sample for urinalysis Discontinued Zosyn 3.375 g IV every 6 hours. Continue Ceftin 250 mg twice daily for 10 days, till 12/12. Urine culture with Proteus sensitive to Ceftin Acute azotemia: Resolved S/p IV fluids, BUN on 12/03 8 Monitor renal function periodically Stage IV Chronic Sacral, trochanter, scrotal Ulcer in a paraplegic patient, Present at time of admission. Wound care nurse re-consulted, appreciate recommendations, and continue managing wound Plastic surgery reevaluated the patient and indicates that wound are healing well. They made further recommendations. Wound VAC placement with Verafraphael, 10/11. Wound VAC changes M/W/F to hip wound. Plastic surgery did perform excisional debridement of chronic decubitus of left trochanter, sacrum, right ischium, bases scrotal wound. Infectious disease consulted because of wound cultures with Proteus mirabilis, MRSA. Daptomycin was continued for 3 week duration for eradication, /10/06 , completed Pain control Dilaudid 4 mg by mouth every 6 hours as needed for pain 12/03: Wound care orders per plastics; advises continuing with wound vac to hip wound but discontinue wound VAC to sacral wound and use padded sacral dressing if needed. Bowel regimen with history of constipation. Monitor ostomy output. Whitney-Colace changed to BID, Dulcolax as needed, hold for loose stools Neurogenic Bladder: Secondary to Paraplegia. Suprapubic catheter to be changed monthly last changed 11/30/16 Paraplegia: At baseline. Continue home medications. Trapeze setup in place Multi-Podus boots PT eyal, recommends SNF, case management assisting. --Consulted OT who made recommendations for wheelchair. Recommendations given to case management to obtain wheelchair for patient Discussed with patient to increase daily functioning, getting out of bed to wheelchair, stretcher chair R upper back wounds: -Wound nurse following. Recommends cleansing unroofed bulla with wound cleanser and apply xeroform in single layer over wound beds and secure with bordered gauze, to be changed every other day and prn if saturated or dislodged. DVT Prophylaxis: SCD/Teds/Lovenox. Discharge Planning PT recommends rehabilitation, wheelchair with removal arms and legs. No OT recommended. Awaiting placement 11/03: Awaiting [facility] to evaluate for placement. 11/13: Facility in [place] may consider. Problem Qualifiers (1) Sacral decubitus ulcer: Qualified Code: L89.154 - Decubitus ulcer of sacral region, stage 4 (2) UTI (urinary tract infection): [place] December 12, 2016 10:09
[2016-12-12] MEDS: ENOXAPARIN SODIUM 40 MG/0.4 ML SYRINGE SQ SCH (14:27)
[2016-12-12 20:00] VITALS: BP 123/80; PULSE 98; RESP 20; TEMP 96.7; O2SAT 96
[2016-12-12] MEDS: diphenhydrAMINE HCL 25 MG CAP PO PRN (21:09)
[2016-12-12] MEDS: ALPRAZolam 1 MG TAB PO PRN (21:09)
[2016-12-13 00:31] VITALS: BP 115/67; PULSE 77; RESP 20; TEMP 97.9; O2SAT 100
[2016-12-13] MEDS: diphenhydrAMINE HCL 25 MG CAP PO PRN ×2 (06:42→21:54)
[2016-12-13] MEDS: HYDROmorphone HCL 4 MG TAB PO PRN ×2 (06:43→21:55)
[2016-12-13 08:31] VITALS: BP 105/77; PULSE 89; RESP 18; TEMP 96.5; O2SAT 97
[2016-12-13] MEDS: GABAPENTIN 400 MG CAP PO SCH ×3 (08:35→17:34)
[2016-12-13] MEDS: FERROUS SULFATE 325 MG (65 MG ELEMENTAL IRON) TAB PO SCH ×2 (08:35→17:34)
[2016-12-13] MEDS: PANTOPRAZOLE SOD 40 MG DELAYED RELEASE TAB PO SCH (08:35)
[2016-12-13] MEDS: SODIUM HYPOCHLORITE 0.25% 500 ML BTL TOPICAL SCH (08:36)
[2016-12-13] MEDS: DOCUSATE SODIUM 50 MG/SENNA 8.6 MG TAB PO SCH ×2 (08:36→20:54)
[2016-12-13] MEDS: LACTIC ACID (AMMONIUM LACTATE) 12% LOTION 225 GM BTL TOPICAL SCH ×2 (08:36→20:52)
--- NOTE | 2016-12-13 09:30 | HHI.PR ---
Subjective Remarks Follow up for decubitus ulcers, paraplegia. Patient seen and examined, laying in bed resting. Denies any chest pain, sob, or any new issues. Colostomy with good output. States he is enjoying being able to go outside. Objective Vitals Vital Signs Date Time Temp Pulse Resp B/P Pulse Ox O2 Delivery O2 Flow Rate FiO2 12/13/16 08:31 96.5 89 18 105/77 97 12/12/16 20:00 96.7 98 20 123/80 96 I/O 12/12/16 12/12/16 12/12/16 12/13/16 12/13/16 12/13/16 07:00 15:00 23:00 07:00 15:00 23:00 Intake Total 120 ml 1150 ml 580 ml 480 ml Output Total 250 ml 1350 ml 550 ml 800 ml Balance -130 ml -200 ml 30 ml -320 ml Intake Oral 120 ml 1150 ml 580 ml 480 ml Output Urine Total 250 ml 1350 ml 550 ml 800 ml Stool Total 0 ml # Bowel Movements 0 0 Imaging Last Impressions Chest X-Ray 10/05/16 0000 Signed Impressions: Service Date/Time: September 13:25 - CONCLUSION: Right upper extremity PICC line in satisfactory position. No evidence of acute cardiopulmonary process. Mike Roa MD Abdomen X-Ray 07/09/16 1518 Signed Impressions: Service Date/Time: Saturday, July 09, 2016 17:06 - CONCLUSION: 1. Moderate amount of stool. 2. No dilated loops of bowel or pneumoperitoneum. 3. Bilateral hip dysplasia. Wes Callejas Jr., MD Abdomen/Pelvis CT 06/08/16 1341 Signed Impressions: Service Date/Time: May 18:40 - CONCLUSION: 1. The balloon portion of the suprapubic catheter is inside the prosthetic urethra. 2. Probable hepatic hemangioma. Ryanne Maya MD Objective Remarks GENERAL: Well developed patient in no apparent distress. Laying in bed. CARDIOVASCULAR: Regular rate and rhythm. No murmurs noted. RESPIRATORY: No accessory muscle use. Clear to auscultation. Breath sounds equal bilaterally. GASTROINTESTINAL: Abdomen non distended, non-tender. Colostomy with stool present. NEUROLOGICAL: Awake and alert. Normal speech. PSYCHIATRIC: Normal mood and affect. Procedures Debridement Medications and IVs Current Medications Medications (Trade) Dose Ordered Sig/Haja Route Start Time Stop Time Status Last Admin (Dulcolax Supp) 10 mg DAILY PRN [place] 06/08/16 20:00 (Tylenol) 650 mg Q6H PRN PO 06/08/16 20:00 10/17/16 13:35 (Xanax) 1 mg Q6H PRN PO 06/08/16 20:00 12/12/16 21:09 (Ferrous Sulfate) 325 mg BIDPC PO 06/09/16 09:00 12/13/16 08:35 (Neurontin) 800 mg TID PO 06/09/16 09:00 12/13/16 08:35 (ZyPREXA) 15 mg HS PO 06/08/16 21:00 12/12/16 21:08 (Protonix) 40 mg DAILY PO 06/09/16 09:00 12/13/16 08:35 (Benadryl) 25 mg Q4H PRN PO 06/23/16 16:00 12/13/16 06:42 (Lac-Hydrin 12% Lotion) 1 applic BID TOPICAL 07/24/16 11:00 12/13/16 08:36 (Zofran Odt) 4 mg Q6H PRN PO 08/11/16 07:15 11/30/16 12:44 (Silver Nitrate Applicators) 1 appl DAILY PRN TOPICAL 08/22/16 10:45 (Lovenox Inj) 40 mg Q24H SQ 08/28/16 16:00 12/12/16 14:27 (Dilaudid) 4 mg Q6HR PRN PO 10/09/16 11:45 12/13/16 06:43 (Dakin'S 0.25% Soln) 500 ml DAILY TOPICAL 11/18/16 09:00 12/13/16 08:36 (Whitney-Colace) 1 tab BID PO 12/12/16 21:00 12/13/16 08:36 Urinary Catheter: Yes Assessment to: Continue Peterson insert reason: Stage III/IV Press Ulcer Date of Insertion: November 30, 2016 Vascular Central Line Catheter: No A/P Problem List: (1) Sacral decubitus ulcer ICD Code: L89.159 Status: Chronic (2) UTI (urinary tract infection) ICD Code: N39.0 Status: Resolved (3) Constipation ICD Code: K59.00 Status: Resolved (4) Paraplegia ICD Code: G82.20 Status: Chronic (5) Neurogenic bladder ICD Code: N31.9 Status: Chronic Assessment and Plan Recurrent complicated urinary tract infection with sepsis, improved Patient with sinus tachycardia, leukocytosis, urinary tract infection Replaced Peterson and obtained clean urine sample for urinalysis, Urine culture with Proteus sensitive to Ceftin Discontinued Zosyn 3.375 g IV every 6 hours. Continue Ceftin 250 mg twice daily for 10 days, completed 12/12. -Cont to monitor for recurrent infection Acute azotemia: Resolved S/p IV fluids, BUN on 12/03 8 Monitor renal function periodically Stage IV Chronic Sacral, trochanter, scrotal Ulcer in a paraplegic patient, Present at time of admission. Wound care nurse re-consulted, appreciate recommendations, and continue managing wound Plastic surgery reevaluated the patient and indicates that wound are healing well. They made further recommendations. Wound VAC placement with [place]low, 10/11. Wound VAC changes M/W/F to hip wound. Plastic surgery did perform excisional debridement of chronic decubitus of left trochanter, sacrum, right ischium, bases scrotal wound. Infectious disease consulted because of wound cultures with Proteus mirabilis, MRSA. Daptomycin was continued for 3 week duration for eradication, /10/06 , completed Pain control Dilaudid 4 mg by mouth every 6 hours as needed for pain 12/03: Wound care orders per plastics; advises continuing with wound vac to hip wound but discontinue wound VAC to sacral wound -12/13: Wound care orders: cleanse wound to sacrum with NS and loosely pack with iodoform 1/4 inch packing and cover with bordered gauze, change daily. D/C wound vac to L trochanter wound, apply skin prep to periwound of L trochanter for protection, and apply dakins moistened gauze to wound bed and cover with dry dressing and change daily. Bowel regimen with history of constipation. Monitor ostomy output. Whitney-Colace changed to BID, Dulcolax as needed, hold for loose stools Neurogenic Bladder: Secondary to Paraplegia. Suprapubic catheter to be changed monthly last changed 11/30/16 Paraplegia: At baseline. Continue home medications. Trapeze setup in place Multi-Podus boots PT eval, recommends SNF, case management assisting. --Consulted OT who made recommendations for wheelchair. Recommendations given to case management to obtain wheelchair for patient Discussed with patient to increase daily functioning, getting out of bed to wheelchair, stretcher chair R upper back wounds: -Wound nurse following. Recommends cleansing unroofed bulla with wound cleanser and apply xeroform in single layer over wound beds and secure with bordered gauze, to be changed every other day and prn if saturated or dislodged. DVT Prophylaxis: SCD/Teds/Lovenox. Discharge Planning PT recommends rehabilitation, wheelchair with removal arms and legs. No OT recommended. Awaiting placement 11/03: Awaiting [facility] to evaluate for placement. 11/13: Facility in [place] may consider. Problem Qualifiers (1) Sacral decubitus ulcer: Qualified Code: L89.154 - Decubitus ulcer of sacral region, stage 4 (2) UTI (urinary tract infection): Little Hutton December 13, 2016 09:30
[2016-12-13] MEDS: ENOXAPARIN SODIUM 40 MG/0.4 ML SYRINGE SQ SCH (13:28)
[2016-12-13 20:00] VITALS: BP 135/81; PULSE 95; RESP 18; TEMP 97.2; O2SAT 97
[2016-12-13] MEDS: ALPRAZolam 1 MG TAB PO PRN (21:54)
--- NOTE | 2016-12-14 08:46 | HHI.PR ---
Subjective Remarks Follow up for decubitus ulcers, paraplegia. Patient seen and examined, laying in bed resting, able to arousal to answer questions. Denies any chest pain, sob , or any new issues. Objective Vitals Vital Signs Date Time Temp Pulse Resp B/P Pulse Ox O2 Delivery O2 Flow Rate FiO2 12/13/16 20:00 97.2 95 18 135/81 97 I/O 12/13/16 12/13/16 12/13/16 12/14/16 12/14/16 12/14/16 07:00 15:00 23:00 07:00 15:00 23:00 Intake Total 480 ml 720 ml 960 ml Output Total 800 ml 850 ml 950 ml Balance -320 ml -130 ml 10 ml Intake Oral 480 ml 720 ml 960 ml Output Urine Total 800 ml 800 ml 950 ml Stool Total 50 ml 0 ml # Bowel Movements 0 Objective Remarks GENERAL: Well developed patient in no apparent distress. Laying in bed resting. CARDIOVASCULAR: Regular rate and rhythm. No murmurs noted. RESPIRATORY: No accessory muscle use. Clear to auscultation. Breath sounds equal bilaterally. GASTROINTESTINAL: Abdomen non distended, non-tender. Colostomy with stool present. NEUROLOGICAL: Awake and alert. Normal speech. PSYCHIATRIC: Normal mood and affect. Procedures Debridement Medications and IVs Current Medications Medications (Trade) Dose Ordered Sig/Haja Route Start Time Stop Time Status Last Admin (Dulcolax Supp) 10 mg DAILY PRN [place] 06/08/16 20:00 (Tylenol) 650 mg Q6H PRN PO 06/08/16 20:00 10/17/16 13:35 (Xanax) 1 mg Q6H PRN PO 06/08/16 20:00 12/13/16 21:54 (Ferrous Sulfate) 325 mg BIDPC PO 06/09/16 09:00 12/13/16 17:34 (Neurontin) 800 mg TID PO 06/09/16 09:00 12/13/16 17:34 (ZyPREXA) 15 mg HS PO 06/08/16 21:00 12/13/16 20:52 (Protonix) 40 mg DAILY PO 06/09/16 09:00 12/13/16 08:35 (Benadryl) 25 mg Q4H PRN PO 06/23/16 16:00 12/13/16 21:54 (Lac-Hydrin 12% Lotion) 1 applic BID TOPICAL 07/24/16 11:00 12/13/16 20:52 (Zofran Odt) 4 mg Q6H PRN PO 08/11/16 07:15 11/30/16 12:44 (Silver Nitrate Applicators) 1 appl DAILY PRN TOPICAL 08/22/16 10:45 (Lovenox Inj) 40 mg Q24H SQ 08/28/16 16:00 12/13/16 13:28 (Dilaudid) 4 mg Q6HR PRN PO 10/09/16 11:45 12/13/16 21:55 (Dakin'S 0.25% Soln) 500 ml DAILY TOPICAL 11/18/16 09:00 12/13/16 08:36 (Whitney-Colace) 1 tab BID PO 12/12/16 21:00 12/13/16 08:36 Urinary Catheter: Yes Assessment to: Continue Peterson insert reason: Prolonged Immobilization Date of Insertion: November 30, 2016 Vascular Central Line Catheter: No A/P Problem List: (1) Sacral decubitus ulcer ICD Code: L89.159 Status: Chronic (2) UTI (urinary tract infection) ICD Code: N39.0 Status: Resolved (3) Constipation ICD Code: K59.00 Status: Resolved (4) Paraplegia ICD Code: G82.20 Status: Chronic (5) Neurogenic bladder ICD Code: N31.9 Status: Chronic Assessment and Plan Recurrent complicated urinary tract infection with sepsis, improved Patient with sinus tachycardia, leukocytosis, urinary tract infection Replaced Peterson and obtained clean urine sample for urinalysis, Urine culture with Proteus sensitive to Ceftin Discontinued Zosyn 3.375 g IV every 6 hours. Continue Ceftin 250 mg twice daily for 10 days, completed 12/12. -Cont to monitor for recurrent infection Acute azotemia: Resolved S/p IV fluids, BUN on 12/03 8 Monitor renal function periodically Stage IV Chronic Sacral, trochanter, scrotal Ulcer in a paraplegic patient, Present at time of admission. Wound care nurse re-consulted, appreciate recommendations, and continue managing wound Plastic surgery reevaluated the patient and indicates that wound are healing well. They made further recommendations. Wound VAC placement with Shanthi, 10/11. Wound VAC changes M/W/F to hip wound. Plastic surgery did perform excisional debridement of chronic decubitus of left trochanter, sacrum, right ischium, bases scrotal wound. Infectious disease consulted because of wound cultures with Proteus mirabilis, MRSA. Daptomycin was continued for 3 week duration for eradication, /10/06 , completed Pain control Dilaudid 4 mg by mouth every 6 hours as needed for pain 12/03: Wound care orders per plastics; advises continuing with wound vac to hip wound but discontinue wound VAC to sacral wound -12/13: Wound care orders: cleanse wound to sacrum with NS and loosely pack with iodoform 1/4 inch packing and cover with bordered gauze, change daily. D/C wound vac to L trochanter wound, apply skin prep to periwound of L trochanter for protection, and apply dakins moistened gauze to wound bed and cover with dry dressing and change daily. Bowel regimen with history of constipation. Monitor ostomy output. Whitney-Colace changed to BID, Dulcolax as needed, hold for loose stools Neurogenic Bladder: Secondary to Paraplegia. Suprapubic catheter to be changed monthly last changed 11/30/16 Paraplegia: At baseline. Continue home medications. Trapeze setup in place Multi-Podus boots PT eval, recommends SNF, case management assisting. --Consulted OT who made recommendations for wheelchair. Recommendations given to case management to obtain wheelchair for patient Discussed with patient to increase daily functioning, getting out of bed to wheelchair, stretcher chair R upper back wounds: -Wound nurse following. Recommends cleansing unroofed bulla with wound cleanser and apply xeroform in single layer over wound beds and secure with bordered gauze, to be changed every other day and prn if saturated or dislodged. DVT Prophylaxis: SCD/Teds/Lovenox. Discharge Planning PT recommends rehabilitation, wheelchair with removal arms and legs. No OT recommended. Awaiting placement 11/03: Awaiting [facility] to evaluate for placement. 11/13: Facility in [place] may consider. Problem Qualifiers (1) Sacral decubitus ulcer: Qualified Code: L89.154 - Decubitus ulcer of sacral region, stage 4 (2) UTI (urinary tract infection): Little Hutton December 14, 2016 08:46
[2016-12-14] MEDS: GABAPENTIN 400 MG CAP PO SCH ×3 (10:01→17:13)
[2016-12-14] MEDS: HYDROmorphone HCL 4 MG TAB PO PRN ×2 (10:01→21:38)
[2016-12-14] MEDS: PANTOPRAZOLE SOD 40 MG DELAYED RELEASE TAB PO SCH (10:01)
[2016-12-14] MEDS: DOCUSATE SODIUM 50 MG/SENNA 8.6 MG TAB PO SCH ×2 (10:01→21:00)
[2016-12-14] MEDS: FERROUS SULFATE 325 MG (65 MG ELEMENTAL IRON) TAB PO SCH ×2 (10:01→17:13)
[2016-12-14 10:02] VITALS: BP 135/79; PULSE 88; RESP 12; TEMP 97.6; O2SAT 98
[2016-12-14] MEDS: SODIUM HYPOCHLORITE 0.25% 500 ML BTL TOPICAL SCH (10:02)
[2016-12-14] MEDS: LACTIC ACID (AMMONIUM LACTATE) 12% LOTION 225 GM BTL TOPICAL SCH ×2 (10:02→21:00)
[2016-12-14] MEDS: ENOXAPARIN SODIUM 40 MG/0.4 ML SYRINGE SQ SCH (13:59)
[2016-12-14 20:00] VITALS: BP 135/85; PULSE 82; RESP 19; TEMP 96.5; O2SAT 100
[2016-12-14] MEDS: diphenhydrAMINE HCL 25 MG CAP PO PRN (21:38)
[2016-12-14] MEDS: ALPRAZolam 1 MG TAB PO PRN (21:38)
[2016-12-15 08:00] VITALS: BP 128/98; PULSE 78; RESP 16; TEMP 98.2; O2SAT 95
[2016-12-15] MEDS: PANTOPRAZOLE SOD 40 MG DELAYED RELEASE TAB PO SCH (09:48)
[2016-12-15] MEDS: GABAPENTIN 400 MG CAP PO SCH ×3 (09:48→16:01)
[2016-12-15] MEDS: FERROUS SULFATE 325 MG (65 MG ELEMENTAL IRON) TAB PO SCH ×2 (09:48→16:01)
[2016-12-15] MEDS: DOCUSATE SODIUM 50 MG/SENNA 8.6 MG TAB PO SCH ×2 (09:48→21:00)
[2016-12-15] MEDS: SODIUM HYPOCHLORITE 0.25% 500 ML BTL TOPICAL SCH (09:49)
[2016-12-15] MEDS: LACTIC ACID (AMMONIUM LACTATE) 12% LOTION 225 GM BTL TOPICAL SCH ×2 (09:49→21:08)
[2016-12-15] MEDS: ENOXAPARIN SODIUM 40 MG/0.4 ML SYRINGE SQ SCH (12:05)
--- NOTE | 2016-12-15 12:07 | HHI.PR ---
Subjective Remarks Patient seen and examined today for follow-up on multiple wounds. Patient is doing much better. No longer requiring wound VAC. Objective Vitals Vital Signs Date Time Temp Pulse Resp B/P Pulse Ox O2 Delivery O2 Flow Rate FiO2 12/15/16 08:00 98.2 78 16 128/98 95 12/14/16 20:00 96.5 82 19 135/85 100 I/O 12/14/16 12/14/16 12/14/16 12/15/16 12/15/16 12/15/16 06:59 14:59 22:59 06:59 14:59 22:59 Intake Total 960 ml 50 ml 720 ml 240 ml Output Total 950 ml 1750 ml 300 ml Balance 10 ml 50 ml -1030 ml -60 ml Intake Oral 960 ml 50 ml 720 ml 240 ml Output Urine Total 950 ml 1750 ml 300 ml Stool Total 0 ml Objective Remarks GENERAL: Well-developed, well-nourished, in no acute distress. alert and orientated HEENT: Head is normocephalic without any lesions or masses noted. Facial features are symmetric. Eyes: Extraocular muscles are intact. Conjunctivae were clear. NECK: Supple without any masses. Trachea midline no deviation. No JVD, CARDIAC: Regular rhythm, regular rate. S1/S2 are heard. No murmurs gallops or rubs. LUNGS: Clear to auscultation bilaterally. No wheeze, rhonchi or rales. No use of accessory muscles on inspiration or expiration. ABDOMEN: Soft, nontender. Nondistended. Bowel sounds heard in all 4 quadrants. No organomegaly or masses. Negative rebound, negative guarding. Suprapubic catheter in place with yellow/clear urine. Colostomy noted EXTREMITIES: No edema, pulses are equal bilaterally. No cyanosis or clubbing NEUROLOGY: Mood and affect appear appropriate. Cranial nerves II through XII grossly intact. Procedures Debridement Urinary Catheter: Yes Assessment to: Continue Peterson insert reason: Prolonged Immobilization Date of Insertion: November 30, 2016 Vascular Central Line Catheter: No A/P Assessment and Plan Mr. Byrd is a 35-year-old male with PMH of Anxiety, Paraplegia, Neurogenic Bladder s/p Suprapubic Cath, Chronic UTI and Chronic Sacral Decubitus Ulcer who presented for evaluation of sacral wound. Stage IV Chronic Sacral, trochanter, scrotal Ulcer in a paraplegic patient, Present at time of admission. Wound care nurse re-consulted, appreciate recommendations, and continue managing wound Plastic surgery reevaluated the patient and indicates that wound are healing well. They made further recommendations. Status post Wound VAC Plastic surgery did perform excisional debridement of chronic decubitus of left trochanter, sacrum, right ischium, bases scrotal wound. 09/07/16 wound care orders written by plastic surgery Infectious disease consulted because of wound cultures with Proteus mirabilis, MRSA. Daptomycin was continued for 3 week duration for eradication. Pain control Dilaudid 4 mg by mouth every 4 hours as needed for pain Recurrent complicated urinary tract infection with sepsis, improved Patient stating he has chills and feels that he has another urinary tract infection Patient with sinus tachycardia, leukocytosis, urinary tract infection replaced Peterson and obtained clean urine sample for urinalysis Status post Ceftin 250 mg twice daily for 10 days Urine culture with Proteus sensitive to Ceftin Acute azotemia, resolved Continue IV fluids monitor renal function Bowel regimen with history of constipation. Monitor ostomy output. Whitney-Colace daily, Dulcolax as needed Neurogenic Bladder: Secondary to Paraplegia. Suprapubic catheter to be changed monthly last changed 11/30/16 Paraplegia: At baseline. Continue home medications. Trapeze setup in place Multi-Podus boots PT eyal, recommends SNF, case management assisting. --Consulted OT who made recommendations for wheelchair. Recommendations given to case management to obtain wheelchair for patient Discussed with patient to increase daily functioning, getting out of bed to wheelchair, stretcher chair DVT Prophylaxis: SCD/Teds/lovenox. Discharge Planning Discharge planning per case management. Sergei Larose December 15, 2016 12:07
[2016-12-15] MEDS: HYDROmorphone HCL 4 MG TAB PO PRN ×2 (12:08→21:07)
[2016-12-15 20:00] VITALS: BP 152/76; PULSE 72; RESP 20; TEMP 98.1; O2SAT 98
[2016-12-15] MEDS: diphenhydrAMINE HCL 25 MG CAP PO PRN (21:07)
[2016-12-15] MEDS: ALPRAZolam 1 MG TAB PO PRN (21:07)
[2016-12-16 08:00] VITALS: BP 122/76; PULSE 69; RESP 18; TEMP 98; O2SAT 98
[2016-12-16] MEDS: HYDROmorphone HCL 4 MG TAB PO PRN ×2 (08:59→20:48)
[2016-12-16] MEDS: DOCUSATE SODIUM 50 MG/SENNA 8.6 MG TAB PO SCH ×2 (08:59→20:52)
[2016-12-16] MEDS: FERROUS SULFATE 325 MG (65 MG ELEMENTAL IRON) TAB PO SCH ×2 (08:59→16:09)
[2016-12-16] MEDS: PANTOPRAZOLE SOD 40 MG DELAYED RELEASE TAB PO SCH (08:59)
[2016-12-16] MEDS: LACTIC ACID (AMMONIUM LACTATE) 12% LOTION 225 GM BTL TOPICAL SCH ×2 (09:00→21:00)
[2016-12-16] MEDS: GABAPENTIN 400 MG CAP PO SCH ×3 (09:00→16:09)
[2016-12-16] MEDS: SODIUM HYPOCHLORITE 0.25% 500 ML BTL TOPICAL SCH (09:00)
--- NOTE | 2016-12-16 10:00 | HHI.PR ---
Subjective Remarks Patient seen and examined today for follow-up on multiple wounds, paraplegia. Patient denies any new complaints today. Pain is controlled. Objective Vitals Vital Signs Date Time Temp Pulse Resp B/P Pulse Ox O2 Delivery O2 Flow Rate FiO2 12/16/16 08:00 98.0 69 18 122/76 98 12/15/16 20:00 98.1 72 20 152/76 98 I/O 12/15/16 12/15/16 12/15/16 12/16/16 12/16/16 12/16/16 07:00 15:00 23:00 07:00 15:00 23:00 Intake Total 240 ml 720 ml 840 ml Output Total 300 ml 925 ml 275 ml Balance -60 ml -205 ml 565 ml Intake Oral 240 ml 720 ml 840 ml Output Urine Total 300 ml 925 ml 275 ml Objective Remarks GENERAL: Well-developed, well-nourished, in no acute distress. alert and orientated HEENT: Head is normocephalic without any lesions or masses noted. Facial features are symmetric. Eyes: Extraocular muscles are intact. Conjunctivae were clear. NECK: Supple without any masses. Trachea midline no deviation. No JVD, CARDIAC: Regular rhythm, regular rate. S1/S2 are heard. No murmurs gallops or rubs. LUNGS: Clear to auscultation bilaterally. No wheeze, rhonchi or rales. No use of accessory muscles on inspiration or expiration. ABDOMEN: Soft, nontender. Nondistended. Bowel sounds heard in all 4 quadrants. No organomegaly or masses. Negative rebound, negative guarding. Suprapubic catheter in place with yellow/clear urine. Colostomy noted EXTREMITIES: No edema, pulses are equal bilaterally. No cyanosis or clubbing NEUROLOGY: Mood and affect appear appropriate. Cranial nerves II through XII grossly intact. Procedures Debridement Urinary Catheter: Yes (suprapubic catheter) Date of Insertion: November 30, 2016 Vascular Central Line Catheter: No A/P Assessment and Plan Mr. Byrd is a 35-year-old male with PMH of Anxiety, Paraplegia, Neurogenic Bladder s/p Suprapubic Cath, Chronic UTI and Chronic Sacral Decubitus Ulcer who presented for evaluation of sacral wound. Stage IV Chronic Sacral, trochanter, scrotal Ulcer in a paraplegic patient, Present at time of admission. Wound care nurse continuing managing wound Plastic surgery reevaluated the patient and indicates that wound are healing well. They made further recommendations. Status post Wound VAC Plastic surgery did perform excisional debridement of chronic decubitus of left trochanter, sacrum, right ischium, bases scrotal wound. 09/07/16 wound care orders written by plastic surgery Infectious disease consulted because of wound cultures with Proteus mirabilis, MRSA. Daptomycin was continued for 3 week duration for eradication. 09/29/ Pain control Dilaudid 4 mg by mouth every 4 hours as needed for pain Recurrent complicated urinary tract infection with sepsis, improved Patient stating he has chills and feels that he has another urinary tract infection Patient with sinus tachycardia, leukocytosis, urinary tract infection replaced Peterson and obtained clean urine sample for urinalysis Status post Ceftin 250 mg twice daily for 10 days Urine culture with Proteus sensitive to Ceftin Acute azotemia, resolved Continue IV fluids monitor renal function Bowel regimen with history of constipation. Monitor ostomy output. Whitney-Colace daily, Dulcolax as needed Neurogenic Bladder: Secondary to Paraplegia. Suprapubic catheter to be changed monthly last changed 11/30/16 Paraplegia: At baseline. Continue home medications. Trapeze setup in place Multi-Podus boots PT evjessica, recommends SNF, case management assisting. --Consulted OT who made recommendations for wheelchair. Recommendations given to case management to obtain wheelchair for patient Discussed with patient to increase daily functioning, getting out of bed to wheelchair, stretcher chair DVT Prophylaxis: SCD/Teds/lovenox. Discharge Planning Discharge planning per case management. Sergei Larose December 16, 2016 10:00
[2016-12-16] MEDS: ENOXAPARIN SODIUM 40 MG/0.4 ML SYRINGE SQ SCH (11:26)
[2016-12-16 20:00] VITALS: BP 116/80; PULSE 90; RESP 18; TEMP 96.4; O2SAT 98
[2016-12-16] MEDS: diphenhydrAMINE HCL 25 MG CAP PO PRN (20:48)
[2016-12-16] MEDS: ALPRAZolam 1 MG TAB PO PRN (20:48)
[2016-12-17] MEDS: DOCUSATE SODIUM 50 MG/SENNA 8.6 MG TAB PO SCH ×2 (08:34→21:00)
[2016-12-17] MEDS: FERROUS SULFATE 325 MG (65 MG ELEMENTAL IRON) TAB PO SCH ×2 (08:34→17:32)
[2016-12-17] MEDS: GABAPENTIN 400 MG CAP PO SCH ×3 (08:34→17:32)
[2016-12-17] MEDS: PANTOPRAZOLE SOD 40 MG DELAYED RELEASE TAB PO SCH (08:34)
[2016-12-17] MEDS: HYDROmorphone HCL 4 MG TAB PO PRN ×2 (08:39→22:29)
[2016-12-17] MEDS: LACTIC ACID (AMMONIUM LACTATE) 12% LOTION 225 GM BTL TOPICAL SCH ×2 (08:40→21:04)
[2016-12-17] MEDS: SODIUM HYPOCHLORITE 0.25% 500 ML BTL TOPICAL SCH (08:40)
[2016-12-17] MEDS: ENOXAPARIN SODIUM 40 MG/0.4 ML SYRINGE SQ SCH (13:07)
--- NOTE | 2016-12-17 13:32 | HHI.PR ---
Subjective Remarks Patient was seen and examined today for follow-up on multiple wounds. Upon entering the room patient was sleeping. Patient resting comfortably. Nursing staff did not indicate any acute abnormalities or any new complaints. Objective Vitals Vital Signs Date Time Temp Pulse Resp B/P Pulse Ox O2 Delivery O2 Flow Rate FiO2 12/16/16 20:00 96.4 90 18 116/80 98 I/O 12/16/16 12/16/16 12/16/16 12/17/16 12/17/16 12/17/16 07:00 15:00 23:00 07:00 15:00 23:00 Intake Total 840 ml 100 ml 720 ml 720 ml Output Total 275 ml 1450 ml 800 ml Balance 565 ml 100 ml -730 ml -80 ml Intake Oral 840 ml 100 ml 720 ml 720 ml Output Urine Total 275 ml 1450 ml 800 ml # Bowel Movements 0 0 Objective Remarks GENERAL: Well-developed, well-nourished, in no acute distress. Patient sleeping Procedures Debridement Urinary Catheter: Yes (suprapubic catheter) Assessment to: Continue Peterson insert reason: Prolonged Immobilization Date of Insertion: November 30, 2016 A/P Assessment and Plan Mr. Byrd is a 35-year-old male with PMH of Anxiety, Paraplegia, Neurogenic Bladder s/p Suprapubic Cath, Chronic UTI and Chronic Sacral Decubitus Ulcer who presented for evaluation of sacral wound. Stage IV Chronic Sacral, trochanter, scrotal Ulcer in a paraplegic patient, Present at time of admission. Wound care nurse continuing managing wound Plastic surgery reevaluated the patient and indicates that wound are healing well. They made further recommendations. Status post Wound VAC Plastic surgery did perform excisional debridement of chronic decubitus of left trochanter, sacrum, right ischium, bases scrotal wound. 09/07/16 wound care orders written by plastic surgery Infectious disease consulted because of wound cultures with Proteus mirabilis, MRSA. Daptomycin was continued for 3 week duration for eradication. Pain control Dilaudid 4 mg by mouth every 4 hours as needed for pain Recurrent complicated urinary tract infection with sepsis, improved Patient stating he has chills and feels that he has another urinary tract infection Patient with sinus tachycardia, leukocytosis, urinary tract infection replaced Peterson and obtained clean urine sample for urinalysis Status post Ceftin 250 mg twice daily for 10 days Urine culture with Proteus sensitive to Ceftin Acute azotemia, resolved Continue IV fluids monitor renal function Bowel regimen with history of constipation. Monitor ostomy output. Whitney-Colace daily, Dulcolax as needed Neurogenic Bladder: Secondary to Paraplegia. Suprapubic catheter to be changed monthly last changed 11/30/16 Paraplegia: At baseline. Continue home medications. Trapeze setup in place Multi-Podus boots PT eval, recommends SNF, case management assisting. --Consulted OT who made recommendations for wheelchair. Recommendations given to case management to obtain wheelchair for patient Discussed with patient to increase daily functioning, getting out of bed to wheelchair, stretcher chair DVT Prophylaxis: SCD/Teds/lovenox. Discharge Planning Discharge planning per case management. Sergei Larose December 17, 2016 13:32
[2016-12-17 15:13] VITALS: BP 140/84; PULSE 85; RESP 16; TEMP 96.9; O2SAT 96
[2016-12-17 20:00] VITALS: BP 114/77; PULSE 82; RESP 20; TEMP 96.8; O2SAT 94
[2016-12-17] MEDS: diphenhydrAMINE HCL 25 MG CAP PO PRN (22:28)
[2016-12-17] MEDS: ALPRAZolam 1 MG TAB PO PRN (22:29)
[2016-12-18 08:00] VITALS: BP 128/88; PULSE 88; RESP 18; TEMP 98.1; O2SAT 96
[2016-12-18] MEDS: PANTOPRAZOLE SOD 40 MG DELAYED RELEASE TAB PO SCH (08:37)
[2016-12-18] MEDS: FERROUS SULFATE 325 MG (65 MG ELEMENTAL IRON) TAB PO SCH ×2 (08:37→17:18)
[2016-12-18] MEDS: GABAPENTIN 400 MG CAP PO SCH ×3 (08:37→17:18)
[2016-12-18] MEDS: HYDROmorphone HCL 4 MG TAB PO PRN ×2 (08:42→21:09)
[2016-12-18] MEDS: LACTIC ACID (AMMONIUM LACTATE) 12% LOTION 225 GM BTL TOPICAL SCH ×2 (08:43→21:10)
[2016-12-18] MEDS: DOCUSATE SODIUM 50 MG/SENNA 8.6 MG TAB PO SCH ×2 (08:43→21:10)
[2016-12-18] MEDS: SODIUM HYPOCHLORITE 0.25% 500 ML BTL TOPICAL SCH (08:43)
--- NOTE | 2016-12-18 11:09 | HHI.PR ---
Subjective Remarks Patient seen and examined today in follow-up for multiple wounds. Patient doing much better. Patient did not get out of bed yesterday, states that he plans on getting out of bed a day. Objective Vitals Vital Signs Date Time Temp Pulse Resp B/P Pulse Ox O2 Delivery O2 Flow Rate FiO2 12/18/16 10:06 16 12/18/16 08:00 98.1 88 18 128/88 96 12/17/16 20:00 96.8 82 20 114/77 94 12/17/16 15:13 96.9 85 16 140/84 96 I/O 12/17/16 12/17/16 12/17/16 12/18/16 12/18/16 12/18/16 07:00 15:00 23:00 07:00 15:00 23:00 Intake Total 720 ml 480 ml 600 ml 200 ml Output Total 800 ml 900 ml 300 ml Balance -80 ml -420 ml 300 ml 200 ml Intake Oral 720 ml 480 ml 600 ml 200 ml Output Urine Total 800 ml 850 ml 300 ml Stool Total 50 ml # Bowel Movements 0 Objective Remarks GENERAL: Well-developed, well-nourished, in no acute distress. HEENT: Head is normocephalic without any lesions or masses noted. Facial features are symmetric. Eyes: Extraocular muscles are intact. Conjunctivae were clear. NECK: Supple without any masses. Trachea midline no deviation. No JVD, CARDIAC: Regular rhythm, regular rate. S1/S2 are heard. No murmurs gallops or rubs. LUNGS: Clear to auscultation bilaterally. No wheeze, rhonchi or rales. No use of accessory muscles on inspiration or expiration. ABDOMEN: Soft, nontender. Nondistended. Bowel sounds heard in all 4 quadrants. No organomegaly or masses. Negative rebound, negative guarding. Suprapubic catheter in place with yellow/clear urine. Colostomy noted EXTREMITIES: No edema, pulses are equal bilaterally. No cyanosis or clubbing NEUROLOGY: Mood and affect appear appropriate. Cranial nerves II through XII grossly intact. Procedures Debridement Urinary Catheter: Yes (suprapubic catheter) Date of Insertion: November 30, 2016 Vascular Central Line Catheter: No A/P Assessment and Plan Mr. Byrd is a 35-year-old male with PMH of Anxiety, Paraplegia, Neurogenic Bladder s/p Suprapubic Cath, Chronic UTI and Chronic Sacral Decubitus Ulcer who presented for evaluation of sacral wound. Stage IV Chronic Sacral, trochanter, scrotal Ulcer in a paraplegic patient, Present at time of admission. Wound care nurse continuing managing wound Plastic surgery reevaluated the patient and indicates that wound are healing well. They made further recommendations. Status post Wound VAC Plastic surgery did perform excisional debridement of chronic decubitus of left trochanter, sacrum, right ischium, bases scrotal wound. 09/07/16 wound care orders written by plastic surgery Infectious disease consulted because of wound cultures with Proteus mirabilis, MRSA. Daptomycin was continued for 3 week duration for eradication. Pain control Dilaudid 4 mg by mouth every 4 hours as needed for pain Recurrent complicated urinary tract infection with sepsis, improved Patient stating he has chills and feels that he has another urinary tract infection Patient with sinus tachycardia, leukocytosis, urinary tract infection replaced Peterson and obtained clean urine sample for urinalysis Status post Ceftin 250 mg twice daily for 10 days Urine culture with Proteus sensitive to Ceftin Acute azotemia, resolved Continue IV fluids monitor renal function Bowel regimen with history of constipation. Monitor ostomy output. Whitney-Colace daily, Dulcolax as needed Neurogenic Bladder: Secondary to Paraplegia. Suprapubic catheter to be changed monthly last changed 11/30/16 Paraplegia: At baseline. Continue home medications. Trapeze setup in place Multi-Podus boots PT eval, recommends SNF, case management assisting. --Consulted OT who made recommendations for wheelchair. Recommendations given to case management to obtain wheelchair for patient Discussed with patient to increase daily functioning, getting out of bed to wheelchair, stretcher chair DVT Prophylaxis: SCD/Teds/lovenox. Discharge Planning Discharge planning per case management. Sergei Larose December 18, 2016 11:09
[2016-12-18] MEDS: ENOXAPARIN SODIUM 40 MG/0.4 ML SYRINGE SQ SCH (17:18)
[2016-12-18 20:00] VITALS: BP 133/83; PULSE 94; RESP 20; TEMP 98.7; O2SAT 98
[2016-12-18] MEDS: ALPRAZolam 1 MG TAB PO PRN (21:09)
[2016-12-18] MEDS: diphenhydrAMINE HCL 25 MG CAP PO PRN (21:10)
[2016-12-19 08:00] VITALS: BP 133/70; PULSE 80; RESP 18; TEMP 98; O2SAT 97
[2016-12-19] MEDS: PANTOPRAZOLE SOD 40 MG DELAYED RELEASE TAB PO SCH (08:46)
[2016-12-19] MEDS: DOCUSATE SODIUM 50 MG/SENNA 8.6 MG TAB PO SCH ×2 (08:46→21:06)
[2016-12-19] MEDS: FERROUS SULFATE 325 MG (65 MG ELEMENTAL IRON) TAB PO SCH ×2 (08:47→17:48)
[2016-12-19] MEDS: GABAPENTIN 400 MG CAP PO SCH ×3 (08:47→17:49)
[2016-12-19] MEDS: LACTIC ACID (AMMONIUM LACTATE) 12% LOTION 225 GM BTL TOPICAL SCH ×2 (08:52→21:05)
[2016-12-19] MEDS: SODIUM HYPOCHLORITE 0.25% 500 ML BTL TOPICAL SCH (08:52)
[2016-12-19] MEDS: HYDROmorphone HCL 4 MG TAB PO PRN ×2 (08:52→21:05)
--- NOTE | 2016-12-19 12:42 | HHI.PR ---
Subjective Remarks Follow-up for decubitus ulcers. Patient has no acute complaints Objective Vitals Vital Signs Date Time Temp Pulse Resp B/P Pulse Ox O2 Delivery O2 Flow Rate FiO2 12/19/16 10:31 18 12/19/16 08:00 98.0 80 18 133/70 97 12/18/16 20:00 98.7 94 20 133/83 98 I/O 12/18/16 12/18/16 12/18/16 12/19/16 12/19/16 12/19/16 07:00 15:00 23:00 07:00 15:00 23:00 Intake Total 600 ml 200 ml 1320 ml 360 ml 200 ml Output Total 300 ml 975 ml 325 ml Balance 300 ml 200 ml 345 ml 35 ml 200 ml Intake Oral 600 ml 200 ml 1320 ml 360 ml 200 ml Output Urine Total 300 ml 975 ml 325 ml Objective Remarks GENERAL: Well developed patient in no apparent distress. CARDIOVASCULAR: Regular rate and rhythm. RESPIRATORY: No accessory muscle use. Clear to auscultation. Breath sounds equal bilaterally. GASTROINTESTINAL: Abdomen soft, non-tender, less distended. Colostomy present. NEUROLOGICAL: Awake and alert. Normal speech. PSYCHIATRIC: Normal mood and affect. Procedures Debridement Urinary Catheter: Yes Assessment to: Continue Peterson insert reason: Stage III/IV Press Ulcer Date of Insertion: November 30, 2016 Vascular Central Line Catheter: No A/P Problem List: (1) Sacral decubitus ulcer ICD Code: L89.159 Status: Chronic (2) UTI (urinary tract infection) ICD Code: N39.0 Status: Resolved (3) Constipation ICD Code: K59.00 Status: Resolved (4) Paraplegia ICD Code: G82.20 Status: Chronic (5) Neurogenic bladder ICD Code: N31.9 Status: Chronic Assessment and Plan Recurrent complicated urinary tract infection with sepsis, improved Patient with sinus tachycardia, leukocytosis, urinary tract infection Replaced Peterson and obtained clean urine sample for urinalysis Discontinued Zosyn 3.375 g IV every 6 hours. Urine culture with Proteus sensitive to Ceftin S/p Ceftin 250 mg twice daily for 10 days, till 12/12. 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 Wound care nurse re-consulted, appreciate recommendations, and continue managing wound Plastic surgery reevaluated the patient and indicates that wound are healing well. They made further recommendations. Wound VAC placement with Shanthi, 10/11. Wound VAC changes M/W/F Plastic surgery did perform excisional debridement of chronic decubitus of left trochanter, sacrum, right ischium, bases scrotal wound. Infectious disease consulted because of wound cultures with Proteus mirabilis, MRSA. Daptomycin was continued for 3 week duration for eradication, /10/06. Pain control Dilaudid 4 mg by mouth every 4 hours as needed for pain Wound care orders per plastic surgery and wound nurse. Bowel regimen with history of constipation. Monitor ostomy output. Whitney-Colace daily, Dulcolax as needed Neurogenic Bladder: Secondary to Paraplegia. Suprapubic catheter to be changed monthly last changed 11/30/16 Paraplegia: At baseline. Continue home medications. Trapeze setup in place Multi-Podus boots PT eval, recommends SNF, case management assisting. --Consulted OT who made recommendations for wheelchair. Recommendations given to case management to obtain wheelchair for patient Discussed with patient to increase daily functioning, getting out of bed to wheelchair, stretcher chair R upper back wounds: -Wound nurse following. Recommends cleansing unroofed bulla with wound cleanser and apply xeroform in single layer over wound beds and secure with bordered gauze, to be changed every other day and prn if saturated or dislodged. DVT Prophylaxis: SCD/Teds/Lovenox. Discharge Planning PT recommends rehabilitation, wheelchair with removal arms and legs. No OT recommended. 11/03: Awaiting [facility] SNFs to evaluate for placement. 12/15: Per CM still awaiting response from facility in [place]. Problem Qualifiers (1) Sacral decubitus ulcer: Qualified Code: L89.154 - Decubitus ulcer of sacral region, stage 4 (2) UTI (urinary tract infection): Lani Jensen December 19, 2016 12:42
[2016-12-19] MEDS: ENOXAPARIN SODIUM 40 MG/0.4 ML SYRINGE SQ SCH (17:48)
[2016-12-19 20:00] VITALS: BP 114/78; PULSE 74; RESP 21; TEMP 97.2; O2SAT 97
[2016-12-19] MEDS: diphenhydrAMINE HCL 25 MG CAP PO PRN (21:05)
[2016-12-19] MEDS: ALPRAZolam 1 MG TAB PO PRN (21:06)
[2016-12-20] MEDS: FERROUS SULFATE 325 MG (65 MG ELEMENTAL IRON) TAB PO SCH ×2 (08:17→18:08)
[2016-12-20] MEDS: PANTOPRAZOLE SOD 40 MG DELAYED RELEASE TAB PO SCH (08:17)
[2016-12-20] MEDS: HYDROmorphone HCL 4 MG TAB PO PRN ×3 (08:18→21:16)
[2016-12-20] MEDS: GABAPENTIN 400 MG CAP PO SCH ×3 (08:18→18:08)
[2016-12-20] MEDS: DOCUSATE SODIUM 50 MG/SENNA 8.6 MG TAB PO SCH ×2 (08:19→21:09)
[2016-12-20] MEDS: LACTIC ACID (AMMONIUM LACTATE) 12% LOTION 225 GM BTL TOPICAL SCH ×2 (08:20→21:11)
[2016-12-20] MEDS: SODIUM HYPOCHLORITE 0.25% 500 ML BTL TOPICAL SCH (08:20)
--- NOTE | 2016-12-20 13:42 | HHI.PR ---
Subjective Remarks Follow-up for decubitus ulcers. No acute complaints. Objective Vitals Vital Signs Date Time Temp Pulse Resp B/P Pulse Ox O2 Delivery O2 Flow Rate FiO2 12/20/16 09:18 20 12/19/16 20:00 97.2 74 21 114/78 97 I/O 12/19/16 12/19/16 12/19/16 12/20/16 12/20/16 12/20/16 07:00 15:00 23:00 07:00 15:00 23:00 Intake Total 360 ml 200 ml 1320 ml 720 ml Output Total 325 ml 1450 ml 475 ml Balance 35 ml 200 ml -130 ml 245 ml Intake Oral 360 ml 200 ml 1320 ml 720 ml Output Urine Total 325 ml 1450 ml 475 ml Objective Remarks GENERAL: Well developed patient in no apparent distress. CARDIOVASCULAR: Regular rate and rhythm. RESPIRATORY: No accessory muscle use. Clear to auscultation. Breath sounds equal bilaterally. GASTROINTESTINAL: Normoactive bowel sounds. Abdomen soft, non-tender, distended. Colostomy present. NEUROLOGICAL: Awake and alert. Normal speech. PSYCHIATRIC: Normal mood and affect. Procedures Debridement Urinary Catheter: Yes Assessment to: Continue Peterson insert reason: Stage III/IV Press Ulcer Date of Insertion: November 30, 2016 Vascular Central Line Catheter: No A/P Problem List: (1) Sacral decubitus ulcer ICD Code: L89.159 Status: Chronic (2) UTI (urinary tract infection) ICD Code: N39.0 Status: Resolved (3) Constipation ICD Code: K59.00 Status: Resolved (4) Paraplegia ICD Code: G82.20 Status: Chronic (5) Neurogenic bladder ICD Code: N31.9 Status: Chronic Assessment and Plan Recurrent complicated urinary tract infection with sepsis, improved Patient with sinus tachycardia, leukocytosis, urinary tract infection Replaced Peterson and obtained clean urine sample for urinalysis Discontinued Zosyn 3.375 g IV every 6 hours. Urine culture with Proteus sensitive to Ceftin S/p Ceftin 250 mg twice daily for 10 days, till 12/12. 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 Wound care nurse re-consulted, appreciate recommendations, and continue managing wound Plastic surgery reevaluated the patient and indicates that wound are healing well. They made further recommendations. Wound VAC placement with Veraflow, 10/11. Wound VAC changes M/W/F Plastic surgery did perform excisional debridement of chronic decubitus of left trochanter, sacrum, right ischium, bases scrotal wound. Infectious disease consulted because of wound cultures with Proteus mirabilis, MRSA. Daptomycin was continued for 3 week duration for eradication, /10/06. Pain control Dilaudid 4 mg by mouth every 4 hours as needed for pain Wound care orders per plastic surgery and wound nurse. Bowel regimen with history of constipation. Monitor ostomy output. Whitney-Colace daily, Dulcolax as needed Neurogenic Bladder: Secondary to Paraplegia. Suprapubic catheter to be changed monthly last changed 11/30/16 Paraplegia: At baseline. Continue home medications. Trapeze setup in place Multi-Podus boots PT eval, recommends SNF, case management assisting. --Consulted OT who made recommendations for wheelchair. Recommendations given to case management to obtain wheelchair for patient Discussed with patient to increase daily functioning, getting out of bed to wheelchair, stretcher chair R upper back wounds: -Wound nurse following. Recommends cleansing unroofed bulla with wound cleanser and apply xeroform in single layer over wound beds and secure with bordered gauze, to be changed every other day and prn if saturated or dislodged. DVT Prophylaxis: SCD/Teds/Lovenox. Discharge Planning PT recommends rehabilitation, wheelchair with removal arms and legs. No OT recommended. 11/03: Awaiting [facility] SNFs to evaluate for placement. 12/15: Per CM still awaiting response from facility in [place]. Problem Qualifiers (1) Sacral decubitus ulcer: Qualified Code: L89.154 - Decubitus ulcer of sacral region, stage 4 (2) UTI (urinary tract infection): Lani Jensen December 20, 2016 13:42
[2016-12-20] MEDS: ENOXAPARIN SODIUM 40 MG/0.4 ML SYRINGE SQ SCH (18:08)
[2016-12-20 20:00] VITALS: BP 130/83; PULSE 98; RESP 20; TEMP 98.8; O2SAT 97
[2016-12-20] MEDS: diphenhydrAMINE HCL 25 MG CAP PO PRN (21:17)
[2016-12-20] MEDS: ALPRAZolam 1 MG TAB PO PRN (21:17)
[2016-12-21 08:27] VITALS: BP 116/75; PULSE 88; RESP 19; TEMP 96.4; O2SAT 96
[2016-12-21] MEDS: SODIUM HYPOCHLORITE 0.25% 500 ML BTL TOPICAL SCH (09:00)
[2016-12-21] MEDS: DOCUSATE SODIUM 50 MG/SENNA 8.6 MG TAB PO SCH ×2 (09:38→20:53)
[2016-12-21] MEDS: PANTOPRAZOLE SOD 40 MG DELAYED RELEASE TAB PO SCH (09:38)
[2016-12-21] MEDS: GABAPENTIN 400 MG CAP PO SCH ×3 (09:38→17:27)
[2016-12-21] MEDS: FERROUS SULFATE 325 MG (65 MG ELEMENTAL IRON) TAB PO SCH ×2 (09:38→13:14)
[2016-12-21] MEDS: LACTIC ACID (AMMONIUM LACTATE) 12% LOTION 225 GM BTL TOPICAL SCH ×2 (09:39→20:55)
[2016-12-21] MEDS: HYDROmorphone HCL 4 MG TAB PO PRN ×3 (09:41→23:55)
--- NOTE | 2016-12-21 11:16 | HHI.PR ---
Subjective Remarks Follow-up for decubitus ulcers. Urine is noted to be somewhat dark, but patient denies any fevers or chills. Objective Vitals Vital Signs Date Time Temp Pulse Resp B/P Pulse Ox O2 Delivery O2 Flow Rate FiO2 12/21/16 08:27 96.4 88 19 116/75 96 12/20/16 22:16 16 12/20/16 20:00 98.8 98 20 130/83 97 I/O 12/20/16 12/20/16 12/20/16 12/21/16 12/21/16 12/21/16 07:00 15:00 23:00 07:00 15:00 23:00 Intake Total 720 ml 720 ml 240 ml Output Total 475 ml 900 ml 875 ml 250 ml Balance 245 ml -900 ml -155 ml -10 ml Intake Oral 720 ml 720 ml 240 ml Output Urine Total 475 ml 900 ml 375 ml 250 ml Stool Total 500 ml Objective Remarks GENERAL: Well developed patient in no apparent distress. CARDIOVASCULAR: Regular rate and rhythm. RESPIRATORY: No accessory muscle use. Clear to auscultation. Breath sounds equal bilaterally. GASTROINTESTINAL: Abdomen soft, non-tender, distended. Colostomy present. NEUROLOGICAL: Awake and alert. Normal speech. PSYCHIATRIC: Normal mood and affect. Procedures Debridement Urinary Catheter: Yes Assessment to: Continue Peterson insert reason: Stage III/IV Press Ulcer Date of Insertion: November 30, 2016 Vascular Central Line Catheter: No A/P Problem List: (1) Sacral decubitus ulcer ICD Code: L89.159 Status: Chronic (2) UTI (urinary tract infection) ICD Code: N39.0 Status: Resolved (3) Constipation ICD Code: K59.00 Status: Resolved (4) Paraplegia ICD Code: G82.20 Status: Chronic (5) Neurogenic bladder ICD Code: N31.9 Status: Chronic Assessment and Plan Recurrent complicated urinary tract infection with sepsis, improved Patient with sinus tachycardia, leukocytosis, urinary tract infection Replaced Peterson and obtained clean urine sample for urinalysis Discontinued Zosyn 3.375 g IV every 6 hours. Urine culture with Proteus sensitive to Ceftin S/p Ceftin 250 mg twice daily for 10 days, till 12/12. 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 Wound care nurse re-consulted, appreciate recommendations, and continue managing wound Plastic surgery reevaluated the patient and indicates that wound are healing well. They made further recommendations. Wound VAC placement with Veraflow, 10/11. Wound VAC changes M/W/F Plastic surgery did perform excisional debridement of chronic decubitus of left trochanter, sacrum, right ischium, bases scrotal wound. Infectious disease consulted because of wound cultures with Proteus mirabilis, MRSA. Daptomycin was continued for 3 week duration for eradication, 09/29//10/06. Pain control Dilaudid 4 mg by mouth every 4 hours as needed for pain Wound care orders per plastic surgery and wound nurse. Bowel regimen with history of constipation. Monitor ostomy output. Whitney-Colace daily, Dulcolax as needed Neurogenic Bladder: Secondary to Paraplegia. Suprapubic catheter to be changed monthly last changed 11/30/16 Paraplegia: At baseline. Continue home medications. Trapeze setup in place Multi-Podus boots PT eval, recommends SNF, case management assisting. --Consulted OT who made recommendations for wheelchair. Recommendations given to case management to obtain wheelchair for patient Discussed with patient to increase daily functioning, getting out of bed to wheelchair, stretcher chair R upper back wounds: -Wound nurse following. Recommends cleansing unroofed bulla with wound cleanser and apply xeroform in single layer over wound beds and secure with bordered gauze, to be changed every other day and prn if saturated or dislodged. DVT Prophylaxis: SCD/Teds/Lovenox. Discharge Planning PT recommends rehabilitation, wheelchair with removal arms and legs. No OT recommended. 11/03: Awaiting [facility] SNFs to evaluate for placement. 12/15: Per CM still awaiting response from facility in [place]. Problem Qualifiers (1) Sacral decubitus ulcer: Qualified Code: L89.154 - Decubitus ulcer of sacral region, stage 4 (2) UTI (urinary tract infection): Lani Jensen Dec 21, 2016 11:16
[2016-12-21] MEDS: ENOXAPARIN SODIUM 40 MG/0.4 ML SYRINGE SQ SCH (13:14)
[2016-12-21 20:00] VITALS: BP 140/84; PULSE 78; RESP 18; TEMP 96.5; O2SAT 96
[2016-12-21] MEDS: diphenhydrAMINE HCL 25 MG CAP PO PRN (20:54)
[2016-12-21] MEDS: ALPRAZolam 1 MG TAB PO PRN (20:54)
[2016-12-22 08:00] VITALS: BP 139/79; PULSE 82; RESP 18; TEMP 97.5; O2SAT 96
[2016-12-22] MEDS: SODIUM HYPOCHLORITE 0.25% 500 ML BTL TOPICAL SCH (09:00)
[2016-12-22] MEDS: GABAPENTIN 400 MG CAP PO SCH ×3 (09:25→16:59)
[2016-12-22] MEDS: PANTOPRAZOLE SOD 40 MG DELAYED RELEASE TAB PO SCH (09:26)
[2016-12-22] MEDS: FERROUS SULFATE 325 MG (65 MG ELEMENTAL IRON) TAB PO SCH ×2 (09:26→16:59)
[2016-12-22] MEDS: LACTIC ACID (AMMONIUM LACTATE) 12% LOTION 225 GM BTL TOPICAL SCH ×2 (09:26→21:52)
[2016-12-22] MEDS: DOCUSATE SODIUM 50 MG/SENNA 8.6 MG TAB PO SCH ×2 (09:26→21:00)
[2016-12-22] MEDS: HYDROmorphone HCL 4 MG TAB PO PRN ×3 (09:27→23:47)
--- NOTE | 2016-12-22 11:07 | HHI.PR ---
Subjective Remarks Follow-up for decubitus ulcers. The patient states "I'm not feeling so hot". When I asked him to expound upon this he states he has low appetite. He denies fevers, abdominal pain, vomiting, or diarrhea. Last BM was last night. Objective Vitals Vital Signs Date Time Temp Pulse Resp B/P Pulse Ox O2 Delivery O2 Flow Rate FiO2 12/22/16 10:27 18 12/22/16 08:00 97.5 82 18 139/79 96 12/21/16 20:00 96.5 78 18 140/84 96 I/O 12/21/16 12/21/16 12/21/16 12/22/16 12/22/16 12/22/16 07:00 15:00 23:00 07:00 15:00 23:00 Intake Total 240 ml 1920 ml 940 ml Output Total 250 ml 1000 ml 1550 ml Balance -10 ml 920 ml -610 ml Intake Oral 240 ml 1920 ml 940 ml Output Urine Total 250 ml 1000 ml 1550 ml Stool Total 0 ml 0 ml Objective Remarks GENERAL: Well developed patient in no apparent distress. CARDIOVASCULAR: Regular rate and rhythm. RESPIRATORY: No accessory muscle use. Clear to auscultation. Breath sounds equal bilaterally. GASTROINTESTINAL: Normoactive bowel sounds. Abdomen soft, non-tender, distended. Colostomy without stool present. NEUROLOGICAL: Awake and alert. Normal speech. PSYCHIATRIC: Normal mood and affect. Urine yellow and clear in Peterson bag at bedside. Procedures Debridement Urinary Catheter: Yes Assessment to: Continue Peterson insert reason: Stage III/IV Press Ulcer Date of Insertion: November 30, 2016 Vascular Central Line Catheter: No A/P Problem List: (1) Sacral decubitus ulcer ICD Code: L89.159 Status: Chronic (2) UTI (urinary tract infection) ICD Code: N39.0 Status: Resolved (3) Constipation ICD Code: K59.00 Status: Resolved (4) Paraplegia ICD Code: G82.20 Status: Chronic (5) Neurogenic bladder ICD Code: N31.9 Status: Chronic Assessment and Plan 12/22/16: Patient states he doesn't feel well today, but symptoms are vague with only low appetite. The patient remains afebrile. His urine actually appears improved in color today compared to yesterday. Aside from mildly elevated alkaline phosphatase which is improved from prior, CMP is otherwise relatively unremarkable. Called lab. Apparently another stick was required to obtain CBC and patient refused. Recurrent complicated urinary tract infection with sepsis, improved Patient with sinus tachycardia, leukocytosis, urinary tract infection Replaced Peterson and obtained clean urine sample for urinalysis Discontinued Zosyn 3.375 g IV every 6 hours. Urine culture with Proteus sensitive to Ceftin S/p Ceftin 250 mg twice daily for 10 days, till 12/12. 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 Wound care nurse re-consulted, appreciate recommendations, and continue managing wound Plastic surgery reevaluated the patient and indicates that wound are healing well. They made further recommendations. Wound VAC placement with Verafraphael, 10/11. Wound VAC changes M/W/F Plastic surgery did perform excisional debridement of chronic decubitus of left trochanter, sacrum, right ischium, bases scrotal wound. Infectious disease consulted because of wound cultures with Proteus mirabilis, MRSA. Daptomycin was continued for 3 week duration for eradication, /10/06. Pain control Dilaudid 4 mg by mouth every 4 hours as needed for pain Wound care orders per plastic surgery and wound nurse. Bowel regimen with history of constipation. Monitor ostomy output. Whitney-Colace daily, Dulcolax as needed Neurogenic Bladder: Secondary to Paraplegia. Suprapubic catheter to be changed monthly last changed 11/30/16 Paraplegia: At baseline. Continue home medications. Trapeze setup in place Multi-Podus boots PT eval, recommends SNF, case management assisting. --Consulted OT who made recommendations for wheelchair. Recommendations given to case management to obtain wheelchair for patient Discussed with patient to increase daily functioning, getting out of bed to wheelchair, stretcher chair R upper back wounds: -Wound nurse following. Recommends cleansing unroofed bulla with wound cleanser and apply xeroform in single layer over wound beds and secure with bordered gauze, to be changed every other day and prn if saturated or dislodged. DVT Prophylaxis: SCD/Teds/Lovenox. Discharge Planning PT recommends rehabilitation, wheelchair with removal arms and legs. No OT recommended. [facility] 12/15: Per CM still awaiting response from facility in [place]. Problem Qualifiers (1) Sacral decubitus ulcer: Qualified Code: L89.154 - Decubitus ulcer of sacral region, stage 4 (2) UTI (urinary tract infection): Lani Jensen Dec 22, 2016 11:07
[2016-12-22 12:57] LABS: CHLORIDE 108 MEQ/L (98-107); POTASSIUM 4.5 MEQ/L (3.5-5.1); SODIUM (NA) 141 MEQ/L (136-145)
[2016-12-22 13:00] LABS: ANION GAP 9 MEQ/L (5-15); BICARBONATE 24.5 MEQ/L (21.0-32.0); BLOOD UREA NITROGEN 8 MG/DL (7-18)
[2016-12-22 13:03] LABS: ALT (GPT) 54 U/L (12-78); AST (GOT) 36 U/L (15-37); GLOMERULAR FILTRATION RATE 176 ML/MIN (>89)
[2016-12-22 13:05] LABS: TOTAL BILIRUBIN ADULT 0.3 MG/DL (0.2-1.0)
[2016-12-22 13:06] LABS: ALKALINE PHOSPHATASE 134 U/L (45-117)
[2016-12-22] MEDS: ENOXAPARIN SODIUM 40 MG/0.4 ML SYRINGE SQ SCH (16:55)
[2016-12-22 20:00] VITALS: BP 116/85; PULSE 87; RESP 18; TEMP 97.8; O2SAT 97
[2016-12-22] MEDS: diphenhydrAMINE HCL 25 MG CAP PO PRN (23:47)
[2016-12-22] MEDS: ALPRAZolam 1 MG TAB PO PRN (23:47)
[2016-12-23 08:00] VITALS: BP 136/78; PULSE 89; RESP 18; TEMP 98.1; O2SAT 95
[2016-12-23] MEDS: GABAPENTIN 400 MG CAP PO SCH ×3 (08:34→17:07)
[2016-12-23] MEDS: DOCUSATE SODIUM 50 MG/SENNA 8.6 MG TAB PO SCH ×2 (08:35→21:00)
[2016-12-23] MEDS: PANTOPRAZOLE SOD 40 MG DELAYED RELEASE TAB PO SCH (08:35)
[2016-12-23] MEDS: FERROUS SULFATE 325 MG (65 MG ELEMENTAL IRON) TAB PO SCH ×2 (08:35→17:07)
[2016-12-23] MEDS: SODIUM HYPOCHLORITE 0.25% 500 ML BTL TOPICAL SCH (08:36)
[2016-12-23] MEDS: LACTIC ACID (AMMONIUM LACTATE) 12% LOTION 225 GM BTL TOPICAL SCH ×2 (08:36→22:20)
--- NOTE | 2016-12-23 11:33 | HHI.PR ---
Subjective Remarks Follow-up for decubitus ulcers. Patient states he feels better today. Objective Vitals Vital Signs Date Time Temp Pulse Resp B/P Pulse Ox O2 Delivery O2 Flow Rate FiO2 12/23/16 08:00 98.1 89 18 136/78 95 12/22/16 20:00 97.8 87 18 116/85 97 12/22/16 17:55 18 I/O 12/22/16 12/22/16 12/22/16 12/23/16 12/23/16 12/23/16 07:00 15:00 23:00 07:00 15:00 23:00 Intake Total 940 ml 675 ml 1426 ml 480 ml Output Total 1550 ml 850 ml 1350 ml 750 ml Balance -610 ml -175 ml 76 ml -270 ml Intake Oral 940 ml 675 ml 1426 ml 480 ml Output Urine Total 1550 ml 850 ml 1350 ml 750 ml Stool Total 0 ml 0 ml # Bowel Movements 0 Result Diagram: 12/22/16 1130 Objective Remarks GENERAL: Well developed patient in no apparent distress. CARDIOVASCULAR: Regular rate and rhythm. RESPIRATORY: No accessory muscle use. Clear to auscultation. Breath sounds equal bilaterally. GASTROINTESTINAL: Abdomen soft, non-tender, distended. Colostomy without stool present. NEUROLOGICAL: Awake and alert. Normal speech. PSYCHIATRIC: Normal mood and affect. Urine yellow and clear, good output in Peterson bag at bedside. Procedures Debridement Urinary Catheter: Yes Assessment to: Continue Peterson insert reason: Stage III/IV Press Ulcer Date of Insertion: November 30, 2016 Vascular Central Line Catheter: No A/P Problem List: (1) Sacral decubitus ulcer ICD Code: L89.159 Status: Chronic (2) UTI (urinary tract infection) ICD Code: N39.0 Status: Resolved (3) Constipation ICD Code: K59.00 Status: Resolved (4) Paraplegia ICD Code: G82.20 Status: Chronic (5) Neurogenic bladder ICD Code: N31.9 Status: Chronic Assessment and Plan Recurrent complicated urinary tract infection with sepsis, improved Patient with sinus tachycardia, leukocytosis, urinary tract infection Replaced Peterson and obtained clean urine sample for urinalysis Discontinued Zosyn 3.375 g IV every 6 hours. Urine culture with Proteus sensitive to Ceftin S/p Ceftin 250 mg twice daily for 10 days, till 12/12. 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 Wound care nurse re-consulted, appreciate recommendations, and continue managing wound Plastic surgery reevaluated the patient and indicates that wound are healing well. They made further recommendations. Wound VAC placement with Veraflow, 10/11. Wound VAC changes M/W/F Plastic surgery did perform excisional debridement of chronic decubitus of left trochanter, sacrum, right ischium, bases scrotal wound. Infectious disease consulted because of wound cultures with Proteus mirabilis, MRSA. Daptomycin was continued for 3 week duration for eradication, /10/06. Pain control Dilaudid 4 mg by mouth every 4 hours as needed for pain Wound care orders per plastic surgery and wound nurse. Bowel regimen with history of constipation. Monitor ostomy output. Whitney-Colace daily, Dulcolax as needed Neurogenic Bladder: Secondary to Paraplegia. Suprapubic catheter to be changed monthly last changed 11/30/16 Paraplegia: At baseline. Continue home medications. Trapeze setup in place Multi-Podus boots PT eval, recommends SNF, case management assisting. --Consulted OT who made recommendations for wheelchair. Recommendations given to case management to obtain wheelchair for patient Discussed with patient to increase daily functioning, getting out of bed to wheelchair, stretcher chair R upper back wounds: -Wound nurse following. Recommends cleansing unroofed bulla with wound cleanser and apply xeroform in single layer over wound beds and secure with bordered gauze, to be changed every other day and prn if saturated or dislodged. DVT Prophylaxis: SCD/Teds/Lovenox. Discharge Planning PT recommends rehabilitation, wheelchair with removal arms and legs. No OT recommended. 11/03: Awaiting [facility] SNFs to evaluate for placement. 12/15: Per CM still awaiting response from facility in [place]. Problem Qualifiers (1) Sacral decubitus ulcer: Qualified Code: L89.154 - Decubitus ulcer of sacral region, stage 4 (2) UTI (urinary tract infection): Lani Jensen Dec 23, 2016 11:33
[2016-12-23] MEDS: ENOXAPARIN SODIUM 40 MG/0.4 ML SYRINGE SQ SCH (17:07)
[2016-12-23 20:00] VITALS: BP 118/81; PULSE 91; RESP 20; TEMP 98.1; O2SAT 96
[2016-12-23] MEDS: HYDROmorphone HCL 4 MG TAB PO PRN (22:17)
[2016-12-23] MEDS: diphenhydrAMINE HCL 25 MG CAP PO PRN (22:17)
[2016-12-23] MEDS: ALPRAZolam 1 MG TAB PO PRN (22:17)
[2016-12-24] MEDS: HYDROmorphone HCL 4 MG TAB PO PRN ×3 (05:01→21:20)
[2016-12-24 08:00] VITALS: BP 130/80; PULSE 88; RESP 16; TEMP 98.2; O2SAT 96
[2016-12-24] MEDS: DOCUSATE SODIUM 50 MG/SENNA 8.6 MG TAB PO SCH ×3 (09:00→21:00)
[2016-12-24] MEDS: SODIUM HYPOCHLORITE 0.25% 500 ML BTL TOPICAL SCH (09:00)
[2016-12-24] MEDS: FERROUS SULFATE 325 MG (65 MG ELEMENTAL IRON) TAB PO SCH ×2 (09:04→17:00)
[2016-12-24] MEDS: GABAPENTIN 400 MG CAP PO SCH ×3 (09:04→17:01)
[2016-12-24] MEDS: PANTOPRAZOLE SOD 40 MG DELAYED RELEASE TAB PO SCH (09:04)
[2016-12-24] MEDS: LACTIC ACID (AMMONIUM LACTATE) 12% LOTION 225 GM BTL TOPICAL SCH ×2 (09:05→21:23)
--- NOTE | 2016-12-24 10:26 | HHI.PR ---
Subjective Remarks Follow-up for paraplegia, decubitus ulcers. Patient has no acute complaints. Objective Vitals Vital Signs Date Time Temp Pulse Resp B/P Pulse Ox O2 Delivery O2 Flow Rate FiO2 12/23/16 20:00 98.1 91 20 118/81 96 I/O 12/23/16 12/23/16 12/23/16 12/24/16 12/24/16 12/24/16 07:00 15:00 23:00 07:00 15:00 23:00 Intake Total 480 ml 960 ml 480 ml Output Total 750 ml 1100 ml 275 ml Balance -270 ml -1100 ml 960 ml 205 ml Intake Oral 480 ml 960 ml 480 ml Output Urine Total 750 ml 1100 ml 275 ml Stool Total 0 ml # Bowel Movements 0 Result Diagram: 12/22/16 1130 Objective Remarks GENERAL: Well developed patient in no apparent distress. CARDIOVASCULAR: Regular rate and rhythm. RESPIRATORY: No accessory muscle use. Clear to auscultation. Breath sounds equal bilaterally. GASTROINTESTINAL: Abdomen soft, non-tender, distended. Colostomy with formed stool present. NEUROLOGICAL: Awake and alert. Normal speech. PSYCHIATRIC: Normal mood and affect. Urine yellow and clear. Procedures Debridement Urinary Catheter: Yes Assessment to: Continue Peterson insert reason: Stage III/IV Press Ulcer Date of Insertion: November 30, 2016 Vascular Central Line Catheter: No A/P Problem List: (1) Sacral decubitus ulcer ICD Code: L89.159 Status: Chronic (2) UTI (urinary tract infection) ICD Code: N39.0 Status: Resolved (3) Constipation ICD Code: K59.00 Status: Resolved (4) Paraplegia ICD Code: G82.20 Status: Chronic (5) Neurogenic bladder ICD Code: N31.9 Status: Chronic Assessment and Plan Recurrent complicated urinary tract infection with sepsis, improved Patient with sinus tachycardia, leukocytosis, urinary tract infection Replaced Peterson and obtained clean urine sample for urinalysis Discontinued Zosyn 3.375 g IV every 6 hours. Urine culture with Proteus sensitive to Ceftin S/p Ceftin 250 mg twice daily for 10 days, till 12/12. 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 Wound care nurse re-consulted, appreciate recommendations, and continue managing wound Plastic surgery reevaluated the patient and indicates that wound are healing well. They made further recommendations. Wound VAC placement with Verjose, 10/11. Wound VAC changes M/W/F Plastic surgery did perform excisional debridement of chronic decubitus of left trochanter, sacrum, right ischium, bases scrotal wound. Infectious disease consulted because of wound cultures with Proteus mirabilis, MRSA. Daptomycin was continued for 3 week duration for eradication, 09/29//10/06. Pain control Dilaudid 4 mg by mouth every 4 hours as needed for pain Wound care orders per plastic surgery and wound nurse. Bowel regimen with history of constipation. Monitor ostomy output. Whitney-Colace daily, Dulcolax as needed Neurogenic Bladder: Secondary to Paraplegia. Suprapubic catheter to be changed monthly last changed 11/30/16 Paraplegia: At baseline. Continue home medications. Trapeze setup in place Multi-Podus boots PT eval, recommends SNF, case management assisting. Consulted OT who made recommendations for wheelchair. Recommendations given to case management to obtain wheelchair for patient Discussed with patient to increase daily functioning, getting out of bed to wheelchair, stretcher chair R upper back wounds: -Wound nurse following. Recommends cleansing unroofed bulla with wound cleanser and apply xeroform in single layer over wound beds and secure with bordered gauze, to be changed every other day and prn if saturated or dislodged. DVT Prophylaxis: SCD/Teds/Lovenox. Discharge Planning PT recommends rehabilitation, wheelchair with removal arms and legs. No OT recommended. 11/03: Awaiting [facility] SNFs to evaluate for placement. 12/15: Per CM still awaiting response from facility in [place]. Problem Qualifiers (1) Sacral decubitus ulcer: Qualified Code: L89.154 - Decubitus ulcer of sacral region, stage 4 (2) UTI (urinary tract infection): Lani Jensen Dec 24, 2016 10:26
[2016-12-24] MEDS: ENOXAPARIN SODIUM 40 MG/0.4 ML SYRINGE SQ SCH (17:00)
[2016-12-24 20:00] VITALS: BP 142/82; PULSE 94; RESP 21; TEMP 97.4; O2SAT 95
[2016-12-24] MEDS: ALPRAZolam 1 MG TAB PO PRN (21:20)
[2016-12-24] MEDS: diphenhydrAMINE HCL 25 MG CAP PO PRN (21:20)
[2016-12-25] MEDS: PANTOPRAZOLE SOD 40 MG DELAYED RELEASE TAB PO SCH (08:48)
[2016-12-25] MEDS: HYDROmorphone HCL 4 MG TAB PO PRN ×2 (08:48→21:35)
[2016-12-25] MEDS: GABAPENTIN 400 MG CAP PO SCH ×3 (08:48→17:11)
[2016-12-25] MEDS: FERROUS SULFATE 325 MG (65 MG ELEMENTAL IRON) TAB PO SCH ×2 (08:48→17:11)
[2016-12-25] MEDS: DOCUSATE SODIUM 50 MG/SENNA 8.6 MG TAB PO SCH ×2 (08:49→21:00)
[2016-12-25] MEDS: SODIUM HYPOCHLORITE 0.25% 500 ML BTL TOPICAL SCH (08:50)
[2016-12-25] MEDS: LACTIC ACID (AMMONIUM LACTATE) 12% LOTION 225 GM BTL TOPICAL SCH ×2 (08:50→21:36)
[2016-12-25 09:17] VITALS: BP 128/85; PULSE 89; RESP 19; TEMP 97; O2SAT 95
--- NOTE | 2016-12-25 10:52 | HHI.PR ---
Subjective Remarks Follow-up for decubitus ulcers. Patient has no acute complaints. Objective Vitals Vital Signs Date Time Temp Pulse Resp B/P Pulse Ox O2 Delivery O2 Flow Rate FiO2 12/25/16 10:03 18 12/25/16 09:17 97.0 89 19 128/85 95 12/24/16 20:00 97.4 94 21 142/82 95 I/O 12/24/16 12/24/16 12/24/16 12/25/16 12/25/16 12/25/16 07:00 15:00 23:00 07:00 15:00 23:00 Intake Total 480 ml 1220 ml 480 ml Output Total 275 ml 2300 ml 500 ml Balance 205 ml -1080 ml -20 ml Intake Oral 480 ml 1220 ml 480 ml Output Urine Total 275 ml 2300 ml 500 ml # Bowel Movements 2 Result Diagram: 12/22/16 1130 Objective Remarks GENERAL: Well developed patient in no apparent distress. CARDIOVASCULAR: Regular rate and rhythm. RESPIRATORY: No accessory muscle use. Clear to auscultation. Breath sounds equal bilaterally. GASTROINTESTINAL: Abdomen soft, non-tender, distended. Colostomy with formed stool present. NEUROLOGICAL: Awake and alert. Normal speech. PSYCHIATRIC: Normal mood and affect. Procedures Debridement Urinary Catheter: Yes Assessment to: Continue Peterson insert reason: Stage III/IV Press Ulcer Date of Insertion: November 30, 2016 Vascular Central Line Catheter: No A/P Problem List: (1) Sacral decubitus ulcer ICD Code: L89.159 Status: Chronic (2) UTI (urinary tract infection) ICD Code: N39.0 Status: Resolved (3) Constipation ICD Code: K59.00 Status: Resolved (4) Paraplegia ICD Code: G82.20 Status: Chronic (5) Neurogenic bladder ICD Code: N31.9 Status: Chronic Assessment and Plan Recurrent complicated urinary tract infection with sepsis, improved Patient with sinus tachycardia, leukocytosis, urinary tract infection Replaced Peterson and obtained clean urine sample for urinalysis Discontinued Zosyn 3.375 g IV every 6 hours. Urine culture with Proteus sensitive to Ceftin S/p Ceftin 250 mg twice daily for 10 days, till 12/12. 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 Wound care nurse re-consulted, appreciate recommendations, and continue managing wound Plastic surgery reevaluated the patient and indicates that wound are healing well. They made further recommendations. Wound VAC placement with Verjose, 10/11. Wound VAC changes M/W/F Plastic surgery did perform excisional debridement of chronic decubitus of left trochanter, sacrum, right ischium, bases scrotal wound. Infectious disease consulted because of wound cultures with Proteus mirabilis, MRSA. Daptomycin was continued for 3 week duration for eradication, /10/06. Pain control Dilaudid 4 mg by mouth every 4 hours as needed for pain Wound care orders per plastic surgery and wound nurse. Bowel regimen with history of constipation. Monitor ostomy output. Whitney-Colace daily, Dulcolax as needed Neurogenic Bladder: Secondary to Paraplegia. Suprapubic catheter to be changed monthly last changed 11/30/16 Paraplegia: At baseline. Continue home medications. Trapeze setup in place Multi-Podus boots PT eval, recommends SNF, case management assisting. Consulted OT who made recommendations for wheelchair. Recommendations given to case management to obtain wheelchair for patient Discussed with patient to increase daily functioning, getting out of bed to wheelchair, stretcher chair R upper back wounds: -Wound nurse following. Recommends cleansing unroofed bulla with wound cleanser and apply xeroform in single layer over wound beds and secure with bordered gauze, to be changed every other day and prn if saturated or dislodged. DVT Prophylaxis: SCD/Teds/Lovenox. Discharge Planning PT recommends rehabilitation, wheelchair with removal arms and legs. No OT recommended. 11/03: Awaiting [facility] SNFs to evaluate for placement. 12/15: Per still awaiting response from facility in [place]. Problem Qualifiers (1) Sacral decubitus ulcer: Qualified Code: L89.154 - Decubitus ulcer of sacral region, stage 4 (2) UTI (urinary tract infection): Lani Jensen Dec 25, 2016 10:52
[2016-12-25] MEDS: ENOXAPARIN SODIUM 40 MG/0.4 ML SYRINGE SQ SCH (13:29)
[2016-12-25 20:00] VITALS: BP 142/81; PULSE 91; RESP 18; TEMP 95.8; O2SAT 96
[2016-12-25] MEDS: ALPRAZolam 1 MG TAB PO PRN (21:35)
[2016-12-25] MEDS: diphenhydrAMINE HCL 25 MG CAP PO PRN (21:35)
[2016-12-26 08:00] VITALS: BP 118/78; PULSE 78; RESP 20; TEMP 98; O2SAT 96
[2016-12-26] MEDS: LACTIC ACID (AMMONIUM LACTATE) 12% LOTION 225 GM BTL TOPICAL SCH ×2 (09:00→21:07)
[2016-12-26] MEDS: DOCUSATE SODIUM 50 MG/SENNA 8.6 MG TAB PO SCH ×3 (09:00→21:05)
[2016-12-26] MEDS: SODIUM HYPOCHLORITE 0.25% 500 ML BTL TOPICAL SCH (09:00)
[2016-12-26] MEDS: GABAPENTIN 400 MG CAP PO SCH ×3 (10:14→17:08)
[2016-12-26] MEDS: PANTOPRAZOLE SOD 40 MG DELAYED RELEASE TAB PO SCH (10:14)
[2016-12-26] MEDS: FERROUS SULFATE 325 MG (65 MG ELEMENTAL IRON) TAB PO SCH ×2 (10:14→17:07)
[2016-12-26] MEDS: HYDROmorphone HCL 4 MG TAB PO PRN ×2 (10:15→21:06)
--- NOTE | 2016-12-26 13:46 | HHI.PR ---
Subjective Remarks Patient seen and examined today for follow-up on multiple wounds. Patient denies any new complaints. Patient lying in bed comfortably. Patient indicates that he has not gotten out of bed recently. I instructed patient that he needs to get out of bed and motivate more frequently. Objective Vitals Vital Signs Date Time Temp Pulse Resp B/P Pulse Ox O2 Delivery O2 Flow Rate FiO2 12/26/16 08:00 98.0 78 20 118/78 96 12/25/16 20:00 95.8 91 18 142/81 96 I/O 12/25/16 12/25/16 12/25/16 12/26/16 12/26/16 12/26/16 07:00 15:00 23:00 07:00 15:00 23:00 Intake Total 480 ml 100 ml 1420 ml 480 ml Output Total 500 ml 1050 ml 1000 ml Balance -20 ml 100 ml 370 ml -520 ml Intake Oral 480 ml 100 ml 1420 ml 480 ml Output Urine Total 500 ml 1000 ml 1000 ml Stool Total 50 ml 0 ml Result Diagram: 12/22/16 1130 Objective Remarks GENERAL: Well-developed, well-nourished, in no acute distress. HEENT: Head is normocephalic without any lesions or masses noted. Facial features are symmetric. Eyes: Extraocular muscles are intact. Conjunctivae were clear. NECK: Supple without any masses. Trachea midline no deviation. No JVD, CARDIAC: Regular rhythm, regular rate. S1/S2 are heard. No murmurs gallops or rubs. LUNGS: Clear to auscultation bilaterally. No wheeze, rhonchi or rales. No use of accessory muscles on inspiration or expiration. ABDOMEN: Soft, nontender. Nondistended. Bowel sounds heard in all 4 quadrants. No organomegaly or masses. Negative rebound, negative guarding. Suprapubic catheter in place with yellow/clear urine. Colostomy noted EXTREMITIES: No edema, pulses are equal bilaterally. No cyanosis or clubbing NEUROLOGY: Mood and affect appear appropriate. Cranial nerves II through XII grossly intact. Procedures Debridement Urinary Catheter: Yes Assessment to: Continue Date of Insertion: November 30, 2016 Vascular Central Line Catheter: No A/P Assessment and Plan Mr. Byrd is a 35-year-old male with PMH of Anxiety, Paraplegia, Neurogenic Bladder s/p Suprapubic Cath, Chronic UTI and Chronic Sacral Decubitus Ulcer who presented for evaluation of sacral wound. Stage IV Chronic Sacral, trochanter, scrotal Ulcer in a paraplegic patient, Present at time of admission. Wound care nurse continuing managing wound Plastic surgery reevaluated the patient and indicates that wound are healing well. They made further recommendations. Status post Wound VAC Plastic surgery did perform excisional debridement of chronic decubitus of left trochanter, sacrum, right ischium, bases scrotal wound. 09/07/16 wound care orders written by plastic surgery Infectious disease consulted because of wound cultures with Proteus mirabilis, MRSA. Daptomycin was continued for 3 week duration for eradication. 09/29// Pain control Dilaudid 4 mg by mouth every 4 hours as needed for pain Recurrent complicated urinary tract infection with sepsis, improved Patient stating he has chills and feels that he has another urinary tract infection Patient with sinus tachycardia, leukocytosis, urinary tract infection replaced Peterson and obtained clean urine sample for urinalysis Status post Ceftin 250 mg twice daily for 10 days Urine culture with Proteus sensitive to Ceftin Acute azotemia, resolved Continue IV fluids monitor renal function Bowel regimen with history of constipation. Monitor ostomy output. Whitney-Colace daily, Dulcolax as needed Neurogenic Bladder: Secondary to Paraplegia. Suprapubic catheter to be changed monthly last changed 11/30/16 Paraplegia: At baseline. Continue home medications. Trapeze setup in place Multi-Podus boots PT eval, recommends SNF, case management assisting. --Consulted OT who made recommendations for wheelchair. Recommendations given to case management to obtain wheelchair for patient Discussed with patient to increase daily functioning, getting out of bed to wheelchair, stretcher chair DVT Prophylaxis: SCD/Teds/lovenox. Discharge Planning Discharge planning per case management. Sergei Larose Dec 26, 2016 13:46
[2016-12-26] MEDS: ENOXAPARIN SODIUM 40 MG/0.4 ML SYRINGE SQ SCH (17:08)
[2016-12-26 20:00] VITALS: BP 120/82; PULSE 87; RESP 18; TEMP 96.4; O2SAT 96
[2016-12-26] MEDS: diphenhydrAMINE HCL 25 MG CAP PO PRN (21:04)
[2016-12-26] MEDS: ALPRAZolam 1 MG TAB PO PRN (21:06)
[2016-12-27] MEDS: SODIUM HYPOCHLORITE 0.25% 500 ML BTL TOPICAL SCH (09:00)
[2016-12-27] MEDS: DOCUSATE SODIUM 50 MG/SENNA 8.6 MG TAB PO SCH ×2 (09:00→20:31)
[2016-12-27] MEDS: FERROUS SULFATE 325 MG (65 MG ELEMENTAL IRON) TAB PO SCH ×2 (09:00→17:20)
[2016-12-27 09:06] VITALS: BP 119/83; PULSE 80; RESP 18; TEMP 96; O2SAT 99
[2016-12-27] MEDS: GABAPENTIN 400 MG CAP PO SCH ×3 (09:34→17:20)
[2016-12-27] MEDS: PANTOPRAZOLE SOD 40 MG DELAYED RELEASE TAB PO SCH (09:34)
[2016-12-27] MEDS: HYDROmorphone HCL 4 MG TAB PO PRN ×2 (09:35→20:32)
[2016-12-27] MEDS: LACTIC ACID (AMMONIUM LACTATE) 12% LOTION 225 GM BTL TOPICAL SCH ×2 (09:36→20:32)
--- NOTE | 2016-12-27 10:46 | HHI.PR ---
Subjective Remarks Patient seen and examined today for follow-up on multiple wounds. Patient denies any new complaints. Lying in bed comfortable. Objective Vitals Vital Signs Date Time Temp Pulse Resp B/P Pulse Ox O2 Delivery O2 Flow Rate FiO2 12/27/16 09:06 96.0 80 18 119/83 99 12/26/16 20:00 96.4 87 18 120/82 96 I/O 12/26/16 12/26/16 12/26/16 12/27/16 12/27/16 12/27/16 07:00 15:00 23:00 07:00 15:00 23:00 Intake Total 480 ml 700 ml Output Total 1000 ml 1200 ml 800 ml 850 ml Balance -520 ml -1200 ml -800 ml -150 ml Intake Oral 480 ml 700 ml Output Urine Total 1000 ml 1200 ml 750 ml 850 ml Stool Total 0 ml 50 ml 0 ml Objective Remarks GENERAL: Well-developed, well-nourished, in no acute distress. HEENT: Head is normocephalic without any lesions or masses noted. Facial features are symmetric. Eyes: Extraocular muscles are intact. Conjunctivae were clear. NECK: Supple without any masses. Trachea midline no deviation. No JVD, CARDIAC: Regular rhythm, regular rate. S1/S2 are heard. No murmurs gallops or rubs. LUNGS: Clear to auscultation bilaterally. No wheeze, rhonchi or rales. No use of accessory muscles on inspiration or expiration. ABDOMEN: Soft, nontender. Nondistended. Bowel sounds heard in all 4 quadrants. No organomegaly or masses. Negative rebound, negative guarding. Suprapubic catheter in place with yellow/clear urine. Colostomy noted EXTREMITIES: No edema, pulses are equal bilaterally. No cyanosis or clubbing NEUROLOGY: Mood and affect appear appropriate. Cranial nerves II through XII grossly intact. Procedures Debridement Urinary Catheter: Yes Assessment to: Continue Peterson insert reason: Prolonged Immobilization Date of Insertion: November 30, 2016 Vascular Central Line Catheter: No A/P Assessment and Plan Mr. Byrd is a 35-year-old male with PMH of Anxiety, Paraplegia, Neurogenic Bladder s/p Suprapubic Cath, Chronic UTI and Chronic Sacral Decubitus Ulcer who presented for evaluation of sacral wound. Stage IV Chronic Sacral, trochanter, scrotal Ulcer in a paraplegic patient, Present at time of admission. Much improved at this time Wound care nurse continuing managing wound Plastic surgery reevaluated the patient and indicates that wound are healing well. They made further recommendations. Status post Wound VAC Plastic surgery did perform excisional debridement of chronic decubitus of left trochanter, sacrum, right ischium, bases scrotal wound. 09/07/16 wound care orders written by plastic surgery Infectious disease consulted because of wound cultures with Proteus mirabilis, MRSA. Daptomycin was continued for 3 week duration for eradication. 09/29/ Pain control Dilaudid 4 mg by mouth every 4 hours as needed for pain Recurrent complicated urinary tract infection with sepsis, improved Patient stating he has chills and feels that he has another urinary tract infection Patient with sinus tachycardia, leukocytosis, urinary tract infection replaced Peterson and obtained clean urine sample for urinalysis Status post Ceftin 250 mg twice daily for 10 days Urine culture with Proteus sensitive to Ceftin Acute azotemia, resolved Continue IV fluids monitor renal function Bowel regimen with history of constipation. Monitor ostomy output. Whitney-Colace daily, Dulcolax as needed Neurogenic Bladder: Secondary to Paraplegia. Suprapubic catheter to be changed monthly last changed 11/30/16 Paraplegia: At baseline. Continue home medications. Trapeze setup in place Multi-Podus boots PT eval, recommends SNF, case management assisting. --Consulted OT who made recommendations for wheelchair. Recommendations given to case management to obtain wheelchair for patient Discussed with patient to increase daily functioning, getting out of bed to wheelchair, stretcher chair DVT Prophylaxis: SCD/Teds/lovenox. Discharge Planning Discharge planning per case management. Sergei Larose Dec 27, 2016 10:46
--- NOTE | 2016-12-27 15:10 | PD.WCN.NOT ---
Wound Consult Description: Patient seen on 5th floor [facility] for follow up of stage 4 pressure injuries to sacrum and L trochanter. Positioned patient to R side for wound assessment with assistance of Page KIMBROUGH [address] [place] [address] and real estate underwriter. Removed bordered gauze dressing in place to sacrum to reveal wound that has not improved since previous assessment. Cleansed wound with wound cleanser.Wound measurements are as follows: 0.5 x0.5 x0.5.Wound bed presents with 100% pink tissue and minimal thin green drainage. Wound margins noted with maceration circumferentially . Periwound is noted with crater-like scar tissue. Cleansed wound with wound cleanser and loosely packed wound with 1/2 inch iodoform packing strip, applied skin prep to periwound and covered wound with bordered gauze. Removed dry cover dressing in place over L hip to reveal wound to L trochanter that has changed very little since previous assessment. Wound measurements are as follows: 0.8 x 4.9 x 0.7. Wound has minimal sero-sanguanous drainage. Periwound is noted with scar tissue, rolled thickened scar tissue is noted between 10 and 1 o'clock. Cleansed wound to L trochanter with wound cleanser and applied dakins 0.25% moistened 2x2 gauze pad loosely packed into wound bed and covered with ABD pad, secured with paper tape. Wound to R side of scrotum is improving. [place] of epithelial tissue is assessed forming in the middle of wound bed. Tissue in wound is otherwise 100% pink. Wound measurements are as follows: 4.4 x1 x<0.1cm. Cleansed wound with wound cleanser and applied xeroform in single layer over wound bed and covered with dry 2x2 gauze pad. Secured dressing with mesh underwear. Dated all dressings. Wound care will continue to follow patient every 2 weeks. Communicated with: Spoke with Sid Jeronimo, Call placed to Brissa WEINSTEIN for Doctor rosa Williamson. Recommendation: Recommend to continue dressings as ordered for now. Will speak with Brissa WEINSTEIN for Rosa Batista, regarding further recommendations. Sujey Varner [facility] Dec 27, 2016 15:10
[2016-12-27] MEDS: ENOXAPARIN SODIUM 40 MG/0.4 ML SYRINGE SQ SCH (17:20)
[2016-12-27 20:00] VITALS: BP 123/77; PULSE 87; RESP 19; TEMP 96.9; O2SAT 97
[2016-12-27] MEDS: diphenhydrAMINE HCL 25 MG CAP PO PRN (20:32)
[2016-12-27] MEDS: ALPRAZolam 1 MG TAB PO PRN (20:32)
[2016-12-28 08:00] VITALS: BP 133/80; PULSE 80; RESP 18; TEMP 98.1; O2SAT 96
[2016-12-28] MEDS: FERROUS SULFATE 325 MG (65 MG ELEMENTAL IRON) TAB PO SCH ×2 (09:00→17:00)
[2016-12-28] MEDS: DOCUSATE SODIUM 50 MG/SENNA 8.6 MG TAB PO SCH ×2 (09:00→21:00)
[2016-12-28] MEDS: GABAPENTIN 400 MG CAP PO SCH ×3 (09:17→17:00)
[2016-12-28] MEDS: PANTOPRAZOLE SOD 40 MG DELAYED RELEASE TAB PO SCH (09:17)
[2016-12-28] MEDS: HYDROmorphone HCL 4 MG TAB PO PRN ×2 (09:18→21:14)
[2016-12-28] MEDS: LACTIC ACID (AMMONIUM LACTATE) 12% LOTION 225 GM BTL TOPICAL SCH ×2 (09:18→21:15)
--- NOTE | 2016-12-28 10:46 | HHI.PR ---
Subjective Remarks Patient examined today for follow-up on multiple wounds. Discussed with wound care nurse yesterday who indicates patient having increased breakdown in the sacral area. She was going to notify plastic surgery for reevaluation. Otherwise, patient resting carefully in bed. States that he has not wanted to get out of bed because he is had increased hip pain lately. Objective Vitals Vital Signs Date Time Temp Pulse Resp B/P Pulse Ox O2 Delivery O2 Flow Rate FiO2 12/28/16 08:00 98.1 80 18 133/80 96 12/27/16 20:00 96.9 87 19 123/77 97 I/O 12/27/16 12/27/16 12/27/16 12/28/16 12/28/16 12/28/16 07:00 15:00 23:00 07:00 15:00 23:00 Intake Total 700 ml 1360 ml 240 ml Output Total 850 ml 2000 ml 350 ml Balance -150 ml -640 ml -110 ml Intake Oral 700 ml 1360 ml 240 ml Output Urine Total 850 ml 2000 ml 350 ml Stool Total 0 ml 0 ml Objective Remarks GENERAL: Well-developed, well-nourished, in no acute distress. HEENT: Head is normocephalic without any lesions or masses noted. Facial features are symmetric. Eyes: Extraocular muscles are intact. Conjunctivae were clear. NECK: Supple without any masses. Trachea midline no deviation. No JVD, CARDIAC: Regular rhythm, regular rate. S1/S2 are heard. No murmurs gallops or rubs. LUNGS: Clear to auscultation bilaterally. No wheeze, rhonchi or rales. No use of accessory muscles on inspiration or expiration. ABDOMEN: Soft, nontender. Nondistended. Bowel sounds heard in all 4 quadrants. No organomegaly or masses. Negative rebound, negative guarding. Suprapubic catheter in place with yellow/clear urine. Colostomy noted EXTREMITIES: No edema, pulses are equal bilaterally. No cyanosis or clubbing NEUROLOGY: Mood and affect appear appropriate. Cranial nerves II through XII grossly intact. Procedures Debridement Urinary Catheter: Yes Assessment to: Continue Peterson insert reason: Prolonged Immobilization Date of Insertion: November 30, 2016 Vascular Central Line Catheter: No A/P Assessment and Plan Mr. Byrd is a 35-year-old male with PMH of Anxiety, Paraplegia, Neurogenic Bladder s/p Suprapubic Cath, Chronic UTI and Chronic Sacral Decubitus Ulcer who presented for evaluation of sacral wound. Stage IV Chronic Sacral, trochanter, scrotal Ulcer in a paraplegic patient, Present at time of admission. Wound care nurse continuing managing wound and recommending plastics reevaluate the patient Plastic surgery reevaluated the patient and indicates that wound are healing well. They made further recommendations. Status post Wound VAC Plastic surgery did perform excisional debridement of chronic decubitus of left trochanter, sacrum, right ischium, bases scrotal wound. 09/07/16 wound care orders written by plastic surgery Infectious disease consulted because of wound cultures with Proteus mirabilis, MRSA. Daptomycin was continued for 3 week duration for eradication. Pain control Dilaudid 4 mg by mouth every 4 hours as needed for pain Recurrent complicated urinary tract infection with sepsis, improved Patient stating he has chills and feels that he has another urinary tract infection Patient with sinus tachycardia, leukocytosis, urinary tract infection replaced Peterson and obtained clean urine sample for urinalysis Status post Ceftin 250 mg twice daily for 10 days Urine culture with Proteus sensitive to Ceftin Acute azotemia, resolved Continue IV fluids monitor renal function Bowel regimen with history of constipation. Monitor ostomy output. Whitney-Colace daily, Dulcolax as needed Neurogenic Bladder: Secondary to Paraplegia. Suprapubic catheter to be changed monthly last changed 11/30/16 Paraplegia: At baseline. Continue home medications. Trapeze setup in place Multi-Podus boots PT eval, recommends SNF, case management assisting. --Consulted OT who made recommendations for wheelchair. Recommendations given to case management to obtain wheelchair for patient Discussed with patient to increase daily functioning, getting out of bed to wheelchair, stretcher chair DVT Prophylaxis: SCD/Teds/lovenox. Discharge Planning Discharge planning per case management. Sergei Larose Dec 28, 2016 10:46
[2016-12-28] MEDS ORDERED: DILA4TAB2 PO (15:50)
[2016-12-28] MEDS ORDERED: LACT12LO4 TOPICAL (15:55)
--- NOTE | 2016-12-28 16:05 | HHI.DCPOC ---
Discharge Care Plan Diagnosis: (1) Decubitus ulcer (2) Paraplegia Goals to Promote Your Health * To prevent worsening of your condition and complications * To maintain your health at the optimal level Directions to Meet Your Goals Take your medications as prescribed Follow your dietary instruction Follow activity as directed Keep your appointments as scheduled Take your immunizations and boosters as scheduled If your symptoms worsen call your PCP, if no PCP go to Urgent Care Center or Emergency Room Smoking is Dangerous to Your Health. Avoid second hand smoke Call the 24-hour hour crisis hotline for domestic abuse at Sergei Larose Dec 28, 2016 16:05
[2016-12-28] MEDS: ENOXAPARIN SODIUM 40 MG/0.4 ML SYRINGE SQ SCH (16:59)
[2016-12-28 20:00] VITALS: BP 142/83; PULSE 91; RESP 18; TEMP 97.5; O2SAT 94
[2016-12-28] MEDS: ALPRAZolam 1 MG TAB PO PRN (21:13)
[2016-12-28] MEDS: diphenhydrAMINE HCL 25 MG CAP PO PRN (21:14)
[2016-12-29] MEDS: GABAPENTIN 400 MG CAP PO SCH ×2 (07:51→11:27)
[2016-12-29] MEDS: DOCUSATE SODIUM 50 MG/SENNA 8.6 MG TAB PO SCH (07:52)
[2016-12-29] MEDS: FERROUS SULFATE 325 MG (65 MG ELEMENTAL IRON) TAB PO SCH (07:52)
[2016-12-29] MEDS: HYDROmorphone HCL 4 MG TAB PO PRN ×2 (07:52→14:51)
[2016-12-29] MEDS: PANTOPRAZOLE SOD 40 MG DELAYED RELEASE TAB PO SCH (07:52)
[2016-12-29] MEDS: LACTIC ACID (AMMONIUM LACTATE) 12% LOTION 225 GM BTL TOPICAL SCH (07:53)
[2016-12-29 08:00] VITALS: BP 138/82; PULSE 80; RESP 16; TEMP 96.5; O2SAT 96
--- NOTE | 2016-12-29 10:19 | HHI.DS ---
Discharge Summary Admission Date Jun 08, 2016 at 19:44 Discharge Date: Dec 29, 2016 Admitting Diagnosis urinary tract infection, stage V sacral decubitus ulcer (1) Sacral decubitus ulcer ICD Code: L89.159 (2) UTI (urinary tract infection) ICD Code: N39.0 (3) Constipation ICD Code: K59.00 (4) Paraplegia ICD Code: G82.20 (5) Neurogenic bladder ICD Code: N31.9 Procedures Debridement Brief History - From Admission This is a 35-year-old male with PMH of Anxiety, Paraplegia, Neurogenic Bladder s /p Suprapubic Cath, Chronic UTI and Chronic Sacral Decubitus Ulcer who came into the ER for evaluation of sacral wound. Recent admit 05/02-05/10 for Sacral Decubitus Wound, s/p eval by ID, treated w/ IV Zosyn and Gent Bladder Irrigation for E. Coli/Proteus UTI. States he was discharged w/ Home Health, however has been unable to set anything up. States PCP trying to make arrangements as well, but has been unsuccessful. Referred to ER by PCP for foul -smelling drainage from Decubitus. On arrival, BP 118/57, HR 63, O2 sat 97% on RA, Afebrile. WBC 11.6. Chemistry at baseline. U/a positive for UTI. Suprapubic Cath changed in ER. S/p IV Levaquin in ER. On exam, pt w/ large, foul-smelling sacral decubitus ulcer w/ purulent drainage. Blood/Wound Cultures sent in ER. Imaging Last Impressions Chest X-Ray 10/05/16 0000 Signed Impressions: Service Date/Time: September 13:25 - CONCLUSION: Right upper extremity PICC line in satisfactory position. No evidence of acute cardiopulmonary process. Mike Roa MD Abdomen X-Ray 07/09/16 1518 Signed Impressions: Service Date/Time: Saturday, July 09, 2016 17:06 - CONCLUSION: 1. Moderate amount of stool. 2. No dilated loops of bowel or pneumoperitoneum. 3. Bilateral hip dysplasia. Wes Callejas Jr., MD Abdomen/Pelvis CT 06/08/16 1341 Signed Impressions: Service Date/Time: May 18:40 - CONCLUSION: 1. The balloon portion of the suprapubic catheter is inside the prosthetic urethra. 2. Probable hepatic hemangioma. Ryanne Maya MD PE at Discharge GENERAL: Well developed patient in no apparent distress. CARDIOVASCULAR: Regular rate and rhythm. RESPIRATORY: No accessory muscle use. Clear to auscultation. Breath sounds equal bilaterally. GASTROINTESTINAL: Abdomen soft, non-tender, distended. Colostomy with formed stool present. NEUROLOGICAL: Awake and alert. Normal speech. PSYCHIATRIC: Normal mood and affect. Hospital Course Patient was originally presented to hospital on 06/08/16 in which the patient was evaluated for decubitus ulcer in emergency department sacral wound. At that time it was recommended that the patient be admitted with infectious disease consultation due to patient have a rather complex medical history of paraplegia, neurogenic bladder, decubitus ulcers, urinary tract infection. Patient was treated with antibiotics which have been discontinued at this time. Wound care, plastic surgery was following the patient for his wounds at this point only wound care is following. Patient did not have a discharge plan. Patient will need to be discharged somewhere with continued care, home health care. At the present time that is unavailable to the patient. Because of that reason patient was transferred to [facility] for continued management and care. Patient continue management in [place] with PT/OT. Plastic surgery did take the patient back for further debridement and patient was placed on wound VAC which has subsequently been removed. Wound care continued follow patient and wounds are healing nicely. Patient has had a suprapubic catheter that requires changing once a month. He has had episodes of urinary tract infections which could be considered colonization due to multiple cultures with stain microbial etiology. Highly emphasize changing Peterson every month in order to prevent active infection. Patient has been getting out of bed with nursing staff and put in wheelchair. He has gone outside local occasions. Patient does appear to be improving on a daily basis. Case management notified me that patient does have a facility in which he can be discharged to. Will plan discharge accordingly. Pt Condition on Discharge: Stable Discharge Disposition: Discharge to SNF Discharge Time: > 30 minutes Discharge Instructions DIET: Follow Instructions for: As Tolerated, No Restrictions Activities you can perform: See Additionl Instruction Other Activity Instructions: Patient is paraplegic. Patient will need help with transferring to wheelchair. Patient required bed with trapeze Follow up Referrals: SNF/DIANA/ - 2-3 Days New Medications: Wheelchair (Wheelchair) 1 Mis Mis 1 EA .ROUTE DIRECTED mobility #1 Ref 0 EA Hydromorphone (Dilaudid) 4 Mg Tab 4 MG PO Q6HR PRN pain 510 #12 TAB Lactic Acid (Ammonium Lactate) (Amlactin) 12 % Lot 1 APPLIC TOPICAL BID wound care Days 30 TUBE Sodium Hypochlorite Topical (Dakins Solution Quarter Strength Topical) 0.125% Soln 500 ML TOPICAL DAILY wound #1 ML Continued Medications: Ferrous Sulfate (Iron) 325 Mg Tab 325 MG PO BIDPC Take after a meal. Nutritional Supplement Ref 0 TAB Gabapentin (Neurontin) 800 Mg Tab 800 MG PO TID #90 Ref 0 TAB Olanzapine (Olanzapine) 15 Mg Tab 15 MG PO HS #30 Ref 0 TAB Discontinued Medications: Alprazolam (Xanax) 1 Mg Tab 1 MG PO Q6H PRN ANXIETY #10 Ref 0 TAB Amoxicillin-Clavulanate (Amoxicillin-Clavulanate) 875-125 mg Tab 875 MG PO BID not for use in CrCl <30 mL/minute Infection Ref 0 TAB Carisoprodol (Soma) 350 Mg Tab 350 MG PO TID PRN PAIN #10 Ref 0 TAB Hydrocodone-Acetaminophen (Hydrocodone-Acetaminophen) 10-325 mg Tab 1 TAB PO Q6H PRN PAIN Ref 0 TAB Hydromorphone (Dilaudid) 2 Mg Tab 2 MG PO Q6H PRN Pain Management Ref 0 TAB Oxycodone (Roxicodone) 30 Mg Tab 30 MG PO Q8H PRN PAIN Ref 0 TAB Sergei Larose Dec 29, 2016 10:19
== END 2016-12-29 15:08 | DRG 570 ==
LOC: NEPA 12:41 → NEDA 19:44 → OBSVTOIN 19:44 → NEPFCDU 22:00 → NEPHCDU 06-11 06:22 → N04A 06-11 09:55 → PH5A 08-10 18:30 → N07A 08-26 17:25 → PH5A 09-21 19:00
PROVIDERS: ADMIT Internal Medicine; ATTEND Internal Medicine
PROC: 0T2BX0Z Change Drainage Device in Bladder, External Approach (ICD-10-PCS; 2016-06-08)
PROC: 0T2BX0Z Change Drainage Device in Bladder, External Approach (ICD-10-PCS; 2016-07-10)
PROC: 0JBM0ZZ Excision of Left Upper Leg Subcutaneous Tissue and Fascia, Open Approach (ICD-10-PCS; 2016-08-27)
PROC: 0JBL0ZZ Excision of Right Upper Leg Subcutaneous Tissue and Fascia, Open Approach (ICD-10-PCS; 2016-08-27)
PROC: 0JBB0ZZ Excision of Perineum Subcutaneous Tissue and Fascia, Open Approach (ICD-10-PCS; 2016-08-27)
PROC: 0JB70ZZ Excision of Back Subcutaneous Tissue and Fascia, Open Approach (ICD-10-PCS; principal; 2016-08-27 15:35)
PROC: 2W05X6Z Change Pressure Dressing on Back (ICD-10-PCS; 2016-09-01)
PROC: 02HV33Z Insertion of Infusion Device into Superior Vena Cava, Percutaneous Approach (ICD-10-PCS; 2016-10-05)
DX: L89.154 Pressure ulcer of sacral region, stage 4 (principal); A41.9 Sepsis, unspecified organism; L89.212 Pressure ulcer of right hip, stage 2; G82.20 Paraplegia, unspecified; N39.0 Urinary tract infection, site not specified; T83.510A Infection and inflammatory reaction due to cystostomy catheter, initial encounter; T83.030A Leakage of cystostomy catheter, initial encounter; N31.9 Neuromuscular dysfunction of bladder, unspecified; L89.224 Pressure ulcer of left hip, stage 4; L89.894 Pressure ulcer of other site, stage 4; B96.20 Unspecified Escherichia coli [E. coli] as the cause of diseases classified elsewhere; F41.9 Anxiety disorder, unspecified; F31.9 Bipolar disorder, unspecified; L89.619 Pressure ulcer of right heel, unspecified stage; F17.290 Nicotine dependence, other tobacco product, uncomplicated; B96.4 Proteus (mirabilis) (morganii) as the cause of diseases classified elsewhere; K59.00 Constipation, unspecified; B95.62 Methicillin resistant Staphylococcus aureus infection as the cause of diseases classified elsewhere; G89.29 Other chronic pain; N50.89 Other specified disorders of the male genital organs; Y84.6 Urinary catheterization as the cause of abnormal reaction of the patient, or of later complication, without mention of misadventure at the time of the procedure; Y73.2 Prosthetic and other implants, materials and accessory gastroenterology and urology devices associated with adverse incidents; Z93.3 Colostomy status; Z88.1 Allergy status to other antibiotic agents; Z59.0 Homelessness; Z86.14 Personal history of Methicillin resistant Staphylococcus aureus infection; Z87.440 Personal history of urinary (tract) infections; W34.00XS Accidental discharge from unspecified firearms or gun, sequela
CPT/HCPCS: 36569; 51702; 71010; 74020; 74177; 76937; 80048; 80053; 81001; 82272; 82550; 83605; 83735; 84100; 85025; 85610; 85652; 86403; 87040; 87070; 87077; 87086; 87147; 87186; 87205; 87493; 93005; 96360; 96365; 96366; 96375; G8987-GP; G8988-GP; J0690; J0696; J0878; J1170; J1200; J1642; J1650; J1885; J1956; J2175; J2250; J2310; J2405; J2543; J2710; J3010; J7030; J7040; J7120; Q9967

== ENCOUNTER 2017-06-22 11:19 | Inpatient (IN) | payer MEDICAID ==
[~2017-06-22] VITALS: Ht 180.3 cm; Wt 111.2 kg
[~2017-06-22 11:19] MED LIST changes: -ALPR1 PO; -AMOX875T2 PO; -BACL10TA; +DAKI0.12 TOPICAL; -DILA2TAB2 PO; +DILA4TAB10 PO; -DOCU100T9 PO; +FERR1TAB36 PO; -FERR324T4 PO; -HYDR10SO PO; -LACT PO; +LACT12LO4 TOPICAL; -ROXI30TA14 PO; -SOMA350T PO; +WHEEMIS3; -[UNRECOGNIZED DRUG - CODE] PO
[2017-06-22 11:41] VITALS: BP 111/68; PULSE 79; RESP 18; TEMP 98.9; O2SAT 97
[2017-06-22 11:46] VITALS: BP 111/68; PULSE 77; RESP 18; TEMP 98.3; O2SAT 97
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
[2017-06-22] MEDS ORDERED: CYCL10TA PO (12:10)
[2017-06-22] MEDS ORDERED: REME15TA PO (12:10)
[2017-06-22] MEDS ORDERED: FLOR250C PO (12:10)
[2017-06-22] MEDS ORDERED: ZOFR4TAB PO (12:10)
[2017-06-22] MEDS ORDERED: CYPR4TAB PO (12:10)
[2017-06-22] MEDS ORDERED: FERR325T18 PO (12:10)
[2017-06-22] MEDS ORDERED: CEFTINJ2 IV (12:10)
[2017-06-22] MEDS ORDERED: PYRI50TA5 PO (12:10)
[2017-06-22] MEDS ORDERED: VIBR100C PO (12:10)
[2017-06-22 12:40] LABS: AUTOMATED NEUTROPHIL # 6.3 TH/MM3 (1.8-7.7); BASOPHIL % 0.3 % (0.0-2.0); EOSINOPHIL # 0.1 TH/MM3 (0-0.4); HEMATOCRIT 30.7 % (39.0-51.0); HEMOGLOBIN 9.9 GM/DL (13.0-17.0); LYMPHOCYTE # 3.9 TH/MM3 (1.0-4.8); MEAN CELL VOLUME 82.4 FL (80.0-100.0); MEAN CORPUSCULAR HEMOGLOBIN 26.6 PG (27.0-34.0); MEAN CORPUSCULAR HGB CONC 32.3 % (32.0-36.0); MEAN PLATELET VOLUME 5.9 FL (7.0-11.0); MONO % 6.2 % (0.0-8.0); MONOCYTE # 0.7 TH/MM3 (0-0.9); NEUT % 57.5 % (16.0-70.0); PLATELET COUNT 828 TH/MM3 (150-450); RED BLOOD COUNT 3.72 MIL/MM3 (4.50-5.90); RED CELL DISTRIBUTION WIDTH 17.8 % (11.6-17.2)
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
[2017-06-22 12:47] LABS: INTERNATIONAL NORMALIZED RATIO 1.2 RATIO
[2017-06-22 12:54] LABS: AMORPHOUS SEDIMENT, URINE OCC; BILIRUBIN, URINE NEG (NEG); BLOOD, URINE NEG (NEG); GLUCOSE,URINE NEG (NEG); KETONE, URINE NEG (NEG); MUCUS URINE MANY /lpf (OCC); NITRITE,URINE NEG (NEG); SQUAMOUS EPITHELIAL CELL URINE 2 /hpf (0-5); URINE COLOR YELLOW (YELLW/STRAW); URINE LEUKOCYTE ESTERASE LARGE (NEG)
[2017-06-22 13:00] LABS: ALBUMIN 2.5 GM/DL (3.4-5.0); ALT (GPT) 47 U/L (12-78); AST (GOT) 20 U/L (15-37); BLOOD UREA NITROGEN 7 MG/DL (7-18); CALCIUM 8.8 MG/DL (8.5-10.1); CHLORIDE 103 MEQ/L (98-107); CREATININE 0.49 MG/DL (0.60-1.30); GLOMERULAR FILTRATION RATE 231 ML/MIN (>89); GLUCOSE,RANDOM 91 MG/DL (74-106); SODIUM (NA) 138 MEQ/L (136-145)
[2017-06-22 13:09] LABS: ALKALINE PHOSPHATASE 130 U/L (45-117); TOTAL BILIRUBIN ADULT 0.2 MG/DL (0.2-1.0); TOTAL PROTEIN 8.9 GM/DL (6.4-8.2)
[2017-06-22 15:00] VITALS: BP 117/60; PULSE 70; RESP 18; O2SAT 97
[2017-06-22] MEDS ORDERED: SENNOSIDES 8.6 MG TAB PO PRN (17:00)
[2017-06-22] MEDS ORDERED: HYDROmorphone HCL PF 1 MG/ML VIAL IV PUSH PRN (17:00)
[2017-06-22] MEDS ORDERED: MAGNESIUM HYDROXIDE SUSP 30 ML CUP PO PRN (17:00)
[2017-06-22] MEDS ORDERED: LACTULOSE SYRUP 20 GM/30 ML CUP PO PRN (17:00)
[2017-06-22] MEDS ORDERED: NALOXONE HCL 0.4 MG/ML AMP IV PUSH PRN (17:00)
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
[2017-06-22 18:18] VITALS: BP 122/67; PULSE 84; RESP 20; TEMP 98.5; O2SAT 99
[2017-06-22] MEDS: ENOXAPARIN SODIUM 40 MG/0.4 ML SYRINGE SQ SCH (18:32)
[2017-06-22] MEDS: FLUCONAZOLE 100 MG PREMIX BAG 50 ML IV SCH (18:32)
[2017-06-22] MEDS: oxyCODONE/ACETAMINOPHEN 10 MG/325 MG TAB PO PRN (18:50)
[2017-06-22 20:00] VITALS: BP 100/55; PULSE 90; RESP 20; TEMP 98.4; O2SAT 94
[2017-06-22] MEDS: DOCUSATE SODIUM 50 MG/SENNA 8.6 MG TAB PO SCH (21:00)
[2017-06-22] MEDS: SODIUM CHLORIDE 0.9% FLUSH 10 ML FLUSH IV FLUSH SCH (21:46)
[2017-06-23] VITALS: BP 96/54; PULSE 74; RESP 18; TEMP 98.3; O2SAT 97
[2017-06-23] MEDS: oxyCODONE/ACETAMINOPHEN 10 MG/325 MG TAB PO PRN ×6 (00:18→23:51)
[2017-06-23 04:00] VITALS: BP 100/57; PULSE 69; RESP 20; TEMP 97.9; O2SAT 98
[2017-06-23 06:17] LABS: AUTOMATED NEUTROPHIL # 4.9 TH/MM3 (1.8-7.7); BASOPHIL % 0.4 % (0.0-2.0); EOSINOPHIL # 0.2 TH/MM3 (0-0.4); EOSINOPHIL % 1.8 % (0.0-4.0); HEMATOCRIT 28.8 % (39.0-51.0); HEMOGLOBIN 9.4 GM/DL (13.0-17.0); LYMPH % 40.3 % (9.0-44.0); LYMPHOCYTE # 3.9 TH/MM3 (1.0-4.8); MEAN CELL VOLUME 81.6 FL (80.0-100.0); MEAN CORPUSCULAR HEMOGLOBIN 26.5 PG (27.0-34.0); MEAN CORPUSCULAR HGB CONC 32.4 % (32.0-36.0); MEAN PLATELET VOLUME 5.7 FL (7.0-11.0); MONOCYTE # 0.6 TH/MM3 (0-0.9); NEUT % 51.5 % (16.0-70.0); PLATELET COUNT 773 TH/MM3 (150-450); RED BLOOD COUNT 3.53 MIL/MM3 (4.50-5.90); RED CELL DISTRIBUTION WIDTH 17.8 % (11.6-17.2); WHITE BLOOD COUNT 9.6 TH/MM3 (4.0-11.0)
[2017-06-23 06:40] LABS: ALBUMIN 2.2 GM/DL (3.4-5.0); AST (GOT) 18 U/L (15-37); BICARBONATE 27.6 MEQ/L (21.0-32.0); BLOOD UREA NITROGEN 6 MG/DL (7-18); CALCIUM 8.4 MG/DL (8.5-10.1); CHLORIDE 103 MEQ/L (98-107); CREATININE 0.43 MG/DL (0.60-1.30); GLOMERULAR FILTRATION RATE 268 ML/MIN (>89); GLUCOSE,RANDOM 89 MG/DL (74-106); SODIUM (NA) 138 MEQ/L (136-145)
[2017-06-23 06:43] LABS: ALKALINE PHOSPHATASE 119 U/L (45-117); ALT (GPT) 32 U/L (12-78); TOTAL BILIRUBIN ADULT 0.2 MG/DL (0.2-1.0); TOTAL PROTEIN 8.1 GM/DL (6.4-8.2)
[2017-06-23 08:00] VITALS: BP 111/63; PULSE 69; RESP 20; TEMP 98.1; O2SAT 98
[2017-06-23] MEDS: SODIUM CHLORIDE 0.9% FLUSH 10 ML FLUSH IV FLUSH SCH ×2 (09:00→19:46)
[2017-06-23] MEDS: DOCUSATE SODIUM 50 MG/SENNA 8.6 MG TAB PO SCH ×2 (09:00→19:46)
[2017-06-23 12:00] VITALS: BP 114/63; PULSE 71; RESP 20; TEMP 98.5; O2SAT 97
--- NOTE | 2017-06-23 15:30 | HHI.PR ---
Subjective Remarks patient c/o pain in sacral area as well as foul smell. Denies fevers/chills denies cp/sob. Objective Vitals Vital Signs Date Time Temp Pulse Resp B/P (MAP) Pulse Ox O2 Delivery O2 Flow Rate FiO2 06/23/17 08:00 98.1 69 20 111/63 (79) 98 06/23/17 05:22 18 06/23/17 04:00 97.9 69 20 100/57 (71) 98 06/23/17 04:00 Room Air 06/23/17 00:00 Room Air 06/23/17 00:00 98.3 74 18 96/54 (68) 97 06/22/17 20:00 98.4 90 20 100/55 (70) 94 06/22/17 18:18 98.5 84 20 122/67 (85) 99 06/22/17 17:53 06/22/17 17:44 I/O 06/22/17 06/22/17 06/22/17 06/23/17 06/23/17 06/23/17 07:00 15:00 23:00 07:00 15:00 23:00 Intake Total 240 ml Output Total 300 ml Balance -60 ml Intake Oral 240 ml Output Urine Total 250 ml Stool Total 50 ml Result Diagram: 06/23/17 0550 06/23/17 0550 Imaging Last Impressions Chest X-Ray 06/22/17 1157 Signed Impressions: Service Date/Time: Thursday, June 22, 2017 12:28 - CONCLUSION: No acute disease. Wes Callejas Jr., MD Objective Remarks GENERAL: NAD, A&Ox3 HEAD: Normocephalic. NECK: Supple, trachea midline. No lymphadenopathy. EYES: No scleral icterus. No injection or drainage. CARDIOVASCULAR: Regular rate and rhythm without murmurs, gallops, or rubs. RESPIRATORY: Breath sounds equal bilaterally. No accessory muscle use. GASTROINTESTINAL: Abdomen soft, non-tender, nondistended. MUSCULOSKELETAL: No cyanosis, or edema. (Patient declines another exam of his sacral wound due to pain, ER physician documented, "Extensive stage IV decubitus ulcer buttock sacral coccyx area. Mild drainage noted.") SKIN: Warm and dry. NEURO: No focal neurological deficitis. Medications and IVs Current Medications Medications (Trade) Dose Ordered Sig/Haja Route Start Time Stop Time Status Last Admin (NS Flush) 2 ml UNSCH PRN IV FLUSH 06/22/17 17:00 (NS Flush) 2 ml BID IV FLUSH 06/22/17 21:00 06/23/17 19:46 (Zofran Inj) 4 mg Q6H PRN IVP 06/22/17 17:00 (Lovenox Inj) 40 mg Q24H SQ 06/22/17 17:00 06/23/17 18:03 (Percocet 5-325 Mg) 1 tab Q4H PRN PO 06/22/17 17:00 (Percocet 10-325 Mg) 1 tab Q4H PRN PO 06/22/17 17:00 06/23/17 19:46 (Dilaudid Pf Inj) 1 mg Q3H PRN IV PUSH 06/22/17 17:00 (Narcan Inj) 0.4 mg UNSCH PRN IV PUSH 06/22/17 17:00 (Whitney-Colace) 1 tab BID PO 06/22/17 21:00 (Milk Of Magnesia Liq) 30 ml Q12H PRN PO 06/22/17 17:00 (Senokot) 17.2 mg Q12H PRN PO 06/22/17 17:00 (Lactulose Liq) 30 ml DAILY PRN PO 06/22/17 17:00 Fluconazole/ Sodium Chloride 50 ml @ 50 mls/hr Q24H IV 06/22/17 17:00 06/23/17 18:03 Piperacillin Sod/ Tazobactam Sod 100 ml @ 200 mls/hr Q8H IV 06/23/17 17:00 06/23/17 18:04 (Dakin'S 0.25% Soln) 500 ml BID TOPICAL 06/23/17 21:00 (Desitin 40% Oint) 1 applic BID TOPICAL 06/23/17 21:00 Vancomycin HCl 1000 mg/Sodium Chloride 250 ml @ 250 mls/hr Q12H IV 06/23/17 23:00 UNV Pharmacy Profile Note 0 ml @ 0 mls/hr UNSCH OTHER 06/23/17 23:00 UNV A/P Problem List: (1) Decubitus ulcer ICD Code: L89.90 - Pressure ulcer of unspecified site, unspecified stage Status: Chronic (2) Neurogenic bladder ICD Code: N31.9 - Neuromuscular dysfunction of bladder, unspecified Status: Chronic (3) Paraplegia ICD Code: G82.20 - Paraplegia, unspecified Status: Chronic (4) UTI (urinary tract infection) ICD Code: N39.0 - Urinary tract infection Status: Resolved Assessment and Plan 36-year-old male admitted secondary to worsening sacral decubitus pressure ulcer and complicated urinary tract infection with chronic suprapubic catheter. Worsening sacral decubitus pressure ulcer Paraplegia Paralysis increases risk for pressure ulcers Plastic surgery consulted Wound care nurse consulted Continue preventative management for that source 06/23 start IV zosyn, ID consult. Complicated urinary tract infection Chronic suprapubic catheter Budding yeast on UA Start diflucan Change suprapubic catheter Repeat UA after catheter change Follow urine culture 06/23 Continue Diflucan Chronic anemia Follow CBC Colostomy Supportive care Nursing management History of DVT Mike Lyle MD Jun 23, 2017 15:30
[2017-06-23 16:00] VITALS: BP 113/61; PULSE 78; RESP 20; TEMP 97.6; O2SAT 96
[2017-06-23] MEDS: ENOXAPARIN SODIUM 40 MG/0.4 ML SYRINGE SQ SCH (18:03)
[2017-06-23] MEDS: FLUCONAZOLE 100 MG PREMIX BAG 50 ML IV SCH (18:03)
[2017-06-23] MEDS: PIPERACIL-TAZO 4.5 GM PREMIX 100 ML IV SCH (18:04)
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
[2017-06-23] MEDS ORDERED: Vancomycin Consult Pharmacy 1 EA OTHER SCH (23:00)
[2017-06-23] MEDS ORDERED: VANCOMYCIN INJ 1,000 MG in SODIUM CHLOR 0.9% 250 ML INJ 250 ML IV SCH (23:00)
[2017-06-23] MEDS: SODIUM HYPOCHLORITE 0.25% 500 ML BTL TOPICAL SCH (23:55)
[2017-06-23] MEDS: ZINC OXIDE 40% OINT 60 GM TUBE TOPICAL SCH (23:56)
[2017-06-24] VITALS: BP 120/53; PULSE 62; RESP 16; TEMP 98.2; O2SAT 97
[2017-06-24] MEDS: PIPERACIL-TAZO 4.5 GM PREMIX 100 ML IV SCH ×3 (00:38→16:37)
[2017-06-24 05:00] VITALS: BP 108/61; PULSE 76; RESP 16; TEMP 97.7; O2SAT 95
[2017-06-24] MEDS: oxyCODONE/ACETAMINOPHEN 10 MG/325 MG TAB PO PRN ×2 (07:11→13:37)
[2017-06-24 08:00] VITALS: BP 109/59; PULSE 84; RESP 20; TEMP 98.4; O2SAT 98
[2017-06-24] MEDS: DOCUSATE SODIUM 50 MG/SENNA 8.6 MG TAB PO SCH ×2 (09:00→21:00)
[2017-06-24 09:12] LABS: AUTOMATED NEUTROPHIL # 7.3 TH/MM3 (1.8-7.7); BASOPHIL % 0.2 % (0.0-2.0); EOSINOPHIL # 0.1 TH/MM3 (0-0.4); EOSINOPHIL % 0.8 % (0.0-4.0); HEMATOCRIT 32.6 % (39.0-51.0); HEMOGLOBIN 10.3 GM/DL (13.0-17.0); LYMPH % 11.5 % (9.0-44.0); MEAN CELL VOLUME 82.2 FL (80.0-100.0); MEAN CORPUSCULAR HGB CONC 31.7 % (32.0-36.0); MEAN PLATELET VOLUME 5.8 FL (7.0-11.0); MONO % 5.4 % (0.0-8.0); MONOCYTE # 0.5 TH/MM3 (0-0.9); NEUT % 82.1 % (16.0-70.0); PLATELET COUNT 889 TH/MM3 (150-450); RED BLOOD COUNT 3.96 MIL/MM3 (4.50-5.90); RED CELL DISTRIBUTION WIDTH 17.8 % (11.6-17.2); WHITE BLOOD COUNT 8.9 TH/MM3 (4.0-11.0)
[2017-06-24] MEDS: SODIUM CHLORIDE 0.9% FLUSH 10 ML FLUSH IV FLUSH SCH ×2 (09:31→22:57)
[2017-06-24] MEDS: ZINC OXIDE 40% OINT 60 GM TUBE TOPICAL SCH ×2 (09:32→23:07)
[2017-06-24] MEDS: SODIUM HYPOCHLORITE 0.25% 500 ML BTL TOPICAL SCH ×2 (09:32→23:07)
[2017-06-24 09:41] LABS: ALBUMIN 2.5 GM/DL (3.4-5.0); AST (GOT) 16 U/L (15-37); BICARBONATE 27.5 MEQ/L (21.0-32.0); BLOOD UREA NITROGEN 4 MG/DL (7-18); CALCIUM 8.7 MG/DL (8.5-10.1); CHLORIDE 102 MEQ/L (98-107); CREATININE 0.64 MG/DL (0.60-1.30); GLOMERULAR FILTRATION RATE 170 ML/MIN (>89); GLUCOSE,RANDOM 101 MG/DL (74-106); MAGNESIUM 2.1 MG/DL (1.5-2.5); SODIUM (NA) 138 MEQ/L (136-145)
[2017-06-24 09:42] LABS: ALT (GPT) 38 U/L (12-78); PHOSPHORUS 2.9 MG/DL (2.5-4.9)
[2017-06-24 09:44] LABS: ALKALINE PHOSPHATASE 137 U/L (45-117); TOTAL BILIRUBIN ADULT 0.3 MG/DL (0.2-1.0); TOTAL PROTEIN 9.1 GM/DL (6.4-8.2)
[2017-06-24] MEDS ORDERED: POTASSIUM CHLORIDE 10 MEQ CONTROLLED RELEASE TAB PO ONE (10:45)
[2017-06-24 12:00] VITALS: BP 135/63; PULSE 86; RESP 20; TEMP 98.4; O2SAT 98
[2017-06-24 16:00] VITALS: BP 131/71; PULSE 80; RESP 20; TEMP 97.6; O2SAT 98
[2017-06-24] MEDS: ENOXAPARIN SODIUM 40 MG/0.4 ML SYRINGE SQ SCH (16:37)
[2017-06-24] MEDS: FLUCONAZOLE 100 MG PREMIX BAG 50 ML IV SCH (17:21)
--- NOTE | 2017-06-24 18:11 | HHI.PR ---
Subjective Remarks c/o pain in buttocks area. Denies cp/sob. afebrile. Objective Vitals Vital Signs Date Time Temp Pulse Resp B/P (MAP) Pulse Ox O2 Delivery O2 Flow Rate FiO2 06/24/17 08:30 Room Air 06/24/17 05:00 97.7 76 16 108/61 (77) 95 06/24/17 00:00 Room Air 06/24/17 00:00 98.2 62 16 120/53 (75) 97 06/23/17 20:00 Room Air I/O 06/23/17 06/23/17 06/23/17 06/24/17 06/24/17 06/24/17 07:00 15:00 23:00 07:00 15:00 23:00 Intake Total 240 ml 720 ml 580 ml Output Total 300 ml 300 ml 750 ml Balance -60 ml 420 ml -170 ml Intake Oral 240 ml 720 ml 480 ml IV Total 100 ml Output Urine Total 250 ml 300 ml 750 ml Stool Total 50 ml # Bowel Movements 0 0 Result Diagram: 06/24/17 0831 06/24/17 0831 Imaging Last Impressions Chest X-Ray 06/22/17 1157 Signed Impressions: Service Date/Time: Thursday, June 22, 2017 12:28 - CONCLUSION: No acute disease. Wes Callejas Jr., MD Objective Remarks GENERAL: NAD, A&Ox3 HEAD: Normocephalic. NECK: Supple, trachea midline. No lymphadenopathy. EYES: No scleral icterus. No injection or drainage. CARDIOVASCULAR: Regular rate and rhythm without murmurs, gallops, or rubs. RESPIRATORY: Breath sounds equal bilaterally. No accessory muscle use. GASTROINTESTINAL: Abdomen soft, non-tender, nondistended. MUSCULOSKELETAL: No cyanosis, or edema. (Patient declines another exam of his sacral wound due to pain, ER physician documented, "Extensive stage IV decubitus ulcer buttock sacral coccyx area. Mild drainage noted.") SKIN: Warm and dry. NEURO: No focal neurological deficitis. Medications and IVs Current Medications Medications (Trade) Dose Ordered Sig/Haaj Route Start Time Stop Time Status Last Admin (NS Flush) 2 ml UNSCH PRN IV FLUSH 06/22/17 17:00 (NS Flush) 2 ml BID IV FLUSH 06/22/17 21:00 06/24/17 09:31 (Zofran Inj) 4 mg Q6H PRN IVP 06/22/17 17:00 (Lovenox Inj) 40 mg Q24H SQ 06/22/17 17:00 06/24/17 16:37 (Percocet 5-325 Mg) 1 tab Q4H PRN PO 06/22/17 17:00 (Percocet 10-325 Mg) 1 tab Q4H PRN PO 06/22/17 17:00 06/24/17 13:37 (Dilaudid Pf Inj) 1 mg Q3H PRN IV PUSH 06/22/17 17:00 (Narcan Inj) 0.4 mg UNSCH PRN IV PUSH 06/22/17 17:00 (Whitney-Colace) 1 tab BID PO 06/22/17 21:00 (Milk Of Magnesia Liq) 30 ml Q12H PRN PO 06/22/17 17:00 (Senokot) 17.2 mg Q12H PRN PO 06/22/17 17:00 (Lactulose Liq) 30 ml DAILY PRN PO 06/22/17 17:00 Fluconazole/ Sodium Chloride 50 ml @ 50 mls/hr Q24H IV 06/22/17 17:00 06/24/17 17:21 Piperacillin Sod/ Tazobactam Sod 100 ml @ 200 mls/hr Q8H IV 06/23/17 17:00 06/24/17 16:37 (Dakin'S 0.25% Soln) 500 ml BID TOPICAL 06/23/17 21:00 06/24/17 09:32 (Desitin 40% Oint) 1 applic BID TOPICAL 06/23/17 21:00 06/24/17 09:32 (Flexeril) 10 mg TID PO 06/25/17 09:00 UNV (Periactin) 4 mg BID PO 06/24/17 21:00 UNV (Ferrous Sulfate) 325 mg DAILY PO 06/25/17 09:00 UNV (Neurontin) 800 mg TID PO 06/25/17 09:00 UNV (Dilaudid) 4 mg Q6HR PRN PO 06/24/17 18:15 UNV (Remeron) 15 mg HS PO 06/24/17 21:00 UNV (ZyPREXA) 15 mg HS PO 06/24/17 21:00 UNV (Vitamin B6) 50 mg DAILY PO 06/25/17 09:00 UNV Non-Formulary Medication 250 mg BID PO 06/24/17 21:00 UNV A/P Problem List: (1) Decubitus ulcer ICD Code: L89.90 - Pressure ulcer of unspecified site, unspecified stage Status: Chronic (2) Neurogenic bladder ICD Code: N31.9 - Neuromuscular dysfunction of bladder, unspecified Status: Chronic (3) Paraplegia ICD Code: G82.20 - Paraplegia, unspecified Status: Chronic (4) UTI (urinary tract infection) ICD Code: N39.0 - Urinary tract infection Status: Resolved Assessment and Plan 36-year-old male admitted secondary to worsening sacral decubitus pressure ulcer and complicated urinary tract infection with chronic suprapubic catheter. Worsening sacral decubitus pressure ulcer Paraplegia Paralysis increases risk for pressure ulcers Plastic surgery consulted Wound care nurse consulted Continue preventative management for that source 06/23 start IV zosyn, ID consult. 06/24 wound cultures are growing Pseudomonas species and MRSA. Blood cultures is growing 1 out of 2 bottles positive for streptococcus viridans. ID consulted. Continue IV zosyn, will give one dose of daptomycin IV. Complicated urinary tract infection Chronic suprapubic catheter Budding yeast on UA Start diflucan Change suprapubic catheter Repeat UA after catheter change Follow urine culture 06/23 Continue Diflucan Chronic anemia Follow CBC Colostomy Supportive care Nursing management History of DVT DVT prophylaxis: Lovenox Sq. Mike Lyle MD Jun 24, 2017 18:11
[2017-06-24] MEDS: HYDROmorphone HCL 4 MG TAB PO PRN (18:33)
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
[2017-06-24 20:00] VITALS: BP 98/55; PULSE 81; RESP 17; TEMP 98.2; O2SAT 98
[2017-06-24] MEDS ORDERED: DAPTOmycin INJ 320 MG in SODIUM CHLORIDE 0.9% INJ 100 ML IV ONE (20:00)
[2017-06-24] MEDS: SODIUM CHLORIDE 0.9% FLUSH 10 ML FLUSH IV FLUSH PRN (22:56)
[2017-06-24] MEDS: LACTOBACILLUS ACIDOPHILUS TAB PO SCH (22:58)
[2017-06-24] MEDS: MIRTAZAPINE 15 MG TAB PO SCH (23:01)
[2017-06-24] MEDS: CYPROHEPTADINE HCL 4 MG TAB PO SCH (23:01)
[2017-06-25] VITALS: BP 109/56; PULSE 81; RESP 16; TEMP 98.5; O2SAT 98
[2017-06-25] MEDS: PIPERACIL-TAZO 4.5 GM PREMIX 100 ML IV SCH ×3 (01:37→16:11)
[2017-06-25] MEDS: HYDROmorphone HCL 4 MG TAB PO PRN ×4 (01:37→20:31)
[2017-06-25 04:00] VITALS: BP 121/73; PULSE 97; RESP 16; TEMP 98.3; O2SAT 97
[2017-06-25 08:00] VITALS: BP 104/60; PULSE 86; RESP 18; TEMP 98.7; O2SAT 97
[2017-06-25] MEDS: CYCLOBENZAPRINE HCL 10 MG TAB PO SCH ×3 (08:28→17:26)
[2017-06-25] MEDS: LACTOBACILLUS ACIDOPHILUS TAB PO SCH ×2 (08:28→20:31)
[2017-06-25] MEDS: GABAPENTIN 400 MG CAP PO SCH ×3 (08:29→17:27)
[2017-06-25] MEDS: DOCUSATE SODIUM 50 MG/SENNA 8.6 MG TAB PO SCH ×2 (08:29→20:33)
[2017-06-25] MEDS: FERROUS SULFATE 325 MG (65 MG ELEMENTAL IRON) TAB PO SCH (08:29)
[2017-06-25] MEDS: CYPROHEPTADINE HCL 4 MG TAB PO SCH ×2 (08:29→20:30)
[2017-06-25] MEDS: PYRIDOXINE HCL 50 MG TAB PO SCH (08:29)
[2017-06-25] MEDS: ZINC OXIDE 40% OINT 60 GM TUBE TOPICAL SCH ×2 (08:31→20:31)
[2017-06-25] MEDS: SODIUM CHLORIDE 0.9% FLUSH 10 ML FLUSH IV FLUSH SCH ×2 (08:31→20:31)
[2017-06-25] MEDS: SODIUM HYPOCHLORITE 0.25% 500 ML BTL TOPICAL SCH ×2 (08:31→20:31)
[2017-06-25 11:29] LABS: BICARBONATE 30.2 MEQ/L (21.0-32.0); CALCIUM 8.8 MG/DL (8.5-10.1); CREATININE 0.56 MG/DL (0.60-1.30)
[2017-06-25 12:00] VITALS: BP 107/58; PULSE 84; RESP 18; TEMP 98.2; O2SAT 98
[2017-06-25 16:00] VITALS: BP 100/63; PULSE 88; RESP 18; TEMP 99.3; O2SAT 96
[2017-06-25] MEDS: ENOXAPARIN SODIUM 40 MG/0.4 ML SYRINGE SQ SCH (16:11)
--- NOTE | 2017-06-25 16:50 | HHI.PR ---
Subjective Remarks The patient states that the pain is better controlled. Denies fevers or chills. Denies chest pain or shots of breath. Objective Vitals Vital Signs Date Time Temp Pulse Resp B/P (MAP) Pulse Ox O2 Delivery O2 Flow Rate FiO2 06/25/17 12:00 98.2 84 18 107/58 (74) 98 06/25/17 08:00 98.7 86 18 104/60 (75) 97 06/25/17 07:15 Room Air 06/25/17 04:00 98.3 97 16 121/73 (89) 97 06/25/17 00:00 98.5 81 16 109/56 (73) 98 06/25/17 00:00 Room Air 06/24/17 20:00 Room Air 06/24/17 20:00 98.2 81 17 98/55 (69) 98 I/O 06/24/17 06/24/17 06/24/17 06/25/17 06/25/17 06/25/17 07:00 15:00 23:00 07:00 15:00 23:00 Intake Total 580 ml 390 ml 600 ml 100 ml Output Total 750 ml 375 ml 550 ml Balance -170 ml 15 ml 50 ml 100 ml Intake Oral 480 ml 240 ml 600 ml IV Total 100 ml 150 ml 100 ml Output Urine Total 750 ml 375 ml 550 ml # Bowel Movements 0 0 Result Diagram: 06/24/17 0831 06/25/17 1045 Imaging Last Impressions Chest X-Ray 06/22/17 1157 Signed Impressions: Service Date/Time: Thursday, June 22, 2017 12:28 - CONCLUSION: No acute disease. Wes Callejas Jr., MD Objective Remarks GENERAL: NAD, A&Ox3 HEAD: Normocephalic. NECK: Supple, trachea midline. No lymphadenopathy. EYES: No scleral icterus. No injection or drainage. CARDIOVASCULAR: Regular rate and rhythm without murmurs, gallops, or rubs. RESPIRATORY: Breath sounds equal bilaterally. No accessory muscle use. GASTROINTESTINAL: Abdomen soft, non-tender, nondistended. MUSCULOSKELETAL: No cyanosis, or edema. (Patient declines another exam of his sacral wound due to pain, ER physician documented, "Extensive stage IV decubitus ulcer buttock sacral coccyx area. Mild drainage noted.") SKIN: Warm and dry. NEURO: No focal neurological deficitis. Medications and IVs Current Medications Medications (Trade) Dose Ordered Sig/Haja Route Start Time Stop Time Status Last Admin (NS Flush) 2 ml UNSCH PRN IV FLUSH 06/22/17 17:00 06/24/17 22:56 (NS Flush) 2 ml BID IV FLUSH 06/22/17 21:00 06/25/17 08:31 (Zofran Inj) 4 mg Q6H PRN IVP 06/22/17 17:00 (Lovenox Inj) 40 mg Q24H SQ 06/22/17 17:00 06/25/17 16:11 (Percocet 5-325 Mg) 1 tab Q4H PRN PO 06/22/17 17:00 (Narcan Inj) 0.4 mg UNSCH PRN IV PUSH 06/22/17 17:00 (Whitney-Colace) 1 tab BID PO 06/22/17 21:00 (Milk Of Magnesia Liq) 30 ml Q12H PRN PO 06/22/17 17:00 (Senokot) 17.2 mg Q12H PRN PO 06/22/17 17:00 (Lactulose Liq) 30 ml DAILY PRN PO 06/22/17 17:00 Fluconazole/ Sodium Chloride 50 ml @ 50 mls/hr Q24H IV 06/22/17 17:00 06/24/17 17:21 Piperacillin Sod/ Tazobactam Sod 100 ml @ 200 mls/hr Q8H IV 06/23/17 17:00 06/25/17 16:11 (Dakin'S 0.25% Soln) 500 ml BID TOPICAL 06/23/17 21:00 06/25/17 08:31 (Desitin 40% Oint) 1 applic BID TOPICAL 06/23/17 21:00 06/25/17 08:31 (Flexeril) 10 mg TID PO 06/25/17 09:00 06/25/17 12:44 (Periactin) 4 mg BID PO 06/24/17 21:00 06/25/17 08:29 (Ferrous Sulfate) 325 mg DAILY PO 06/25/17 09:00 06/25/17 08:29 (Neurontin) 800 mg TID PO 06/25/17 09:00 06/25/17 12:44 (Dilaudid) 4 mg Q6H PRN PO 06/24/17 18:15 06/25/17 14:30 (Remeron) 15 mg HS PO 06/24/17 21:00 06/24/17 23:01 (ZyPREXA) 15 mg HS PO 06/24/17 21:00 06/24/17 22:59 (Vitamin B6) 50 mg DAILY PO 06/25/17 09:00 06/25/17 08:29 (Lactinex) 1 tab BID PO 06/24/17 21:00 06/25/17 08:28 A/P Problem List: (1) Decubitus ulcer ICD Code: L89.90 - Pressure ulcer of unspecified site, unspecified stage Status: Chronic (2) Neurogenic bladder ICD Code: N31.9 - Neuromuscular dysfunction of bladder, unspecified Status: Chronic (3) Paraplegia ICD Code: G82.20 - Paraplegia, unspecified Status: Chronic (4) UTI (urinary tract infection) ICD Code: N39.0 - Urinary tract infection Status: Resolved Assessment and Plan 36-year-old male admitted secondary to worsening sacral decubitus pressure ulcer and complicated urinary tract infection with chronic suprapubic catheter. Worsening sacral decubitus pressure ulcer Paraplegia Paralysis increases risk for pressure ulcers Plastic surgery consulted Continue wound care Continue preventative management for that source 06/23 start IV zosyn, ID consult. 06/24 wound cultures are growing Pseudomonas species and MRSA. Blood cultures is growing 1 out of 2 bottles positive for streptococcus viridans. ID consulted . 06/25 appreciate ID recommendations. I will continue the patient on IV Zosyn and IV daptomycin. Further antibiotic adjustment as per ID. Complicated urinary tract infection Chronic suprapubic catheter Budding yeast on UA Start diflucan Change suprapubic catheter Repeat UA after catheter change Follow urine culture 06/23 Continue Diflucan 06/25 week, get a unit tract infection is secondary to a chronic suprapubic catheter. Chronic anemia Follow CBC Colostomy Supportive care Nursing management History of DVT DVT prophylaxis: Lovenox Sq. Discharge Planning Pending ID clearance. Mike Lyle MD Jun 25, 2017 16:50
[2017-06-25] MEDS: FLUCONAZOLE 100 MG PREMIX BAG 50 ML IV SCH (17:25)
[2017-06-25 20:00] VITALS: BP 107/62; PULSE 92; RESP 19; TEMP 99; O2SAT 95
[2017-06-25] MEDS: MIRTAZAPINE 15 MG TAB PO SCH (20:31)
[2017-06-26] VITALS: BP 105/52; PULSE 81; RESP 19; TEMP 98.1; O2SAT 94
[2017-06-26] MEDS: PIPERACIL-TAZO 4.5 GM PREMIX 100 ML IV SCH ×3 (02:14→16:44)
[2017-06-26] MEDS: HYDROmorphone HCL 4 MG TAB PO PRN ×4 (03:17→23:27)
[2017-06-26 04:00] VITALS: BP 95/52; PULSE 81; RESP 24; TEMP 98; O2SAT 95
[2017-06-26 08:00] VITALS: BP 105/57; PULSE 84; RESP 18; TEMP 98.1; O2SAT 94
[2017-06-26] MEDS: PYRIDOXINE HCL 50 MG TAB PO SCH (08:42)
[2017-06-26] MEDS: LACTOBACILLUS ACIDOPHILUS TAB PO SCH ×2 (08:43→21:28)
[2017-06-26] MEDS: CYPROHEPTADINE HCL 4 MG TAB PO SCH ×2 (08:43→21:28)
[2017-06-26] MEDS: SODIUM CHLORIDE 0.9% FLUSH 10 ML FLUSH IV FLUSH SCH ×2 (08:43→21:29)
[2017-06-26] MEDS: FERROUS SULFATE 325 MG (65 MG ELEMENTAL IRON) TAB PO SCH (08:43)
[2017-06-26] MEDS: CYCLOBENZAPRINE HCL 10 MG TAB PO SCH ×3 (08:43→17:16)
[2017-06-26] MEDS: GABAPENTIN 400 MG CAP PO SCH ×3 (08:43→17:16)
[2017-06-26] MEDS: ZINC OXIDE 40% OINT 60 GM TUBE TOPICAL SCH ×2 (08:47→23:42)
[2017-06-26] MEDS: SODIUM HYPOCHLORITE 0.25% 500 ML BTL TOPICAL SCH ×2 (08:47→23:42)
[2017-06-26] MEDS: DOCUSATE SODIUM 50 MG/SENNA 8.6 MG TAB PO SCH ×2 (08:48→21:00)
[2017-06-26 12:00] VITALS: BP 114/62; PULSE 82; RESP 20; TEMP 98.3; O2SAT 100
[2017-06-26] MEDS: DAPTOmycin INJ 320 MG in SODIUM CHLORIDE 0.9% INJ 100 ML IV SCH (12:24)
[2017-06-26 16:00] VITALS: BP 110/56; PULSE 81; RESP 18; TEMP 98.4; O2SAT 95
[2017-06-26] MEDS: ENOXAPARIN SODIUM 40 MG/0.4 ML SYRINGE SQ SCH (16:46)
[2017-06-26] MEDS: FLUCONAZOLE 100 MG PREMIX BAG 50 ML IV SCH (17:16)
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
--- NOTE | 2017-06-26 18:04 | HHI.PR ---
Subjective Remarks pain better. Patient denies fevers chills. no diarrhea. afebrile. Objective Vitals Vital Signs Date Time Temp Pulse Resp B/P (MAP) Pulse Ox O2 Delivery O2 Flow Rate FiO2 06/26/17 16:00 98.4 81 18 110/56 (74) 95 06/26/17 12:00 98.3 82 20 114/62 (79) 100 06/26/17 09:31 Room Air 06/26/17 08:00 98.1 84 18 105/57 (73) 94 06/26/17 04:00 98.0 81 24 95/52 (66) 95 06/26/17 00:00 98.1 81 19 105/52 (69) 94 06/25/17 20:46 Room Air 06/25/17 20:00 99.0 92 19 107/62 (77) 95 I/O 06/25/17 06/25/17 06/25/17 06/26/17 06/26/17 06/26/17 07:00 15:00 23:00 07:00 15:00 23:00 Intake Total 600 ml 100 ml 630 ml 480 ml 100 ml 580 ml Output Total 550 ml 300 ml 550 ml 400 ml Balance 50 ml 100 ml 330 ml -70 ml 100 ml 180 ml Intake Oral 600 ml 480 ml 480 ml 480 ml IV Total 100 ml 150 ml 100 ml 100 ml Output Urine Total 550 ml 300 ml 550 ml 400 ml # Bowel Movements 0 Result Diagram: 06/24/17 0831 06/25/17 1045 Objective Remarks GENERAL: NAD, A&Ox3 HEAD: Normocephalic. NECK: Supple, trachea midline. No lymphadenopathy. EYES: No scleral icterus. No injection or drainage. CARDIOVASCULAR: Regular rate and rhythm without murmurs, gallops, or rubs. RESPIRATORY: Breath sounds equal bilaterally. No accessory muscle use. GASTROINTESTINAL: Abdomen soft, non-tender, nondistended. MUSCULOSKELETAL: No cyanosis, or edema. (Patient declines another exam of his sacral wound due to pain, ER physician documented, "Extensive stage IV decubitus ulcer buttock sacral coccyx area. Mild drainage noted.") SKIN: Warm and dry. NEURO: No focal neurological deficitis. A/P Problem List: (1) Decubitus ulcer ICD Code: L89.90 - Pressure ulcer of unspecified site, unspecified stage Status: Chronic (2) Neurogenic bladder ICD Code: N31.9 - Neuromuscular dysfunction of bladder, unspecified Status: Chronic (3) Paraplegia ICD Code: G82.20 - Paraplegia, unspecified Status: Chronic (4) UTI (urinary tract infection) ICD Code: N39.0 - Urinary tract infection Status: Resolved Assessment and Plan 36-year-old male admitted secondary to worsening sacral decubitus pressure ulcer and complicated urinary tract infection with chronic suprapubic catheter. Worsening sacral decubitus pressure ulcer Paraplegia Paralysis increases risk for pressure ulcers Plastic surgery consulted Continue wound care Continue preventative management for that source 06/23 start IV zosyn, ID consult. 06/24 wound cultures are growing Pseudomonas species and MRSA. Blood cultures is growing 1 out of 2 bottles positive for streptococcus viridans. ID consulted . 06/26 appreciate ID recommendations. I will continue the patient on IV Zosyn and IV daptomycin. Further antibiotic adjustment as per ID. Complicated urinary tract infection Chronic suprapubic catheter Budding yeast on UA Start diflucan Change suprapubic catheter Repeat UA after catheter change Follow urine culture 06/23 Continue Diflucan 06/25 week, get a unit tract infection is secondary to a chronic suprapubic catheter. Chronic anemia Follow CBC Colostomy Supportive care Nursing management History of DVT DVT prophylaxis: Lovenox Sq. Discharge Planning Pending ID clearance. Mike Lyle MD Jun 26, 2017 18:04
[2017-06-26 20:00] VITALS: BP 102/59; PULSE 86; RESP 18; TEMP 98.8; O2SAT 95
[2017-06-26] MEDS: MIRTAZAPINE 15 MG TAB PO SCH (21:28)
[2017-06-27] VITALS: BP 92/53; PULSE 73; RESP 18; TEMP 98; O2SAT 96
[2017-06-27] MEDS: PIPERACIL-TAZO 4.5 GM PREMIX 100 ML IV SCH ×3 (01:10→15:52)
[2017-06-27 04:00] VITALS: BP 98/58; PULSE 80; RESP 21; TEMP 99.1; O2SAT 95
[2017-06-27 08:00] VITALS: BP 112/66; PULSE 69; RESP 18; TEMP 98; O2SAT 99
[2017-06-27] MEDS: PYRIDOXINE HCL 50 MG TAB PO SCH (09:29)
[2017-06-27] MEDS: HYDROmorphone HCL 4 MG TAB PO PRN ×3 (09:29→21:22)
[2017-06-27] MEDS: FERROUS SULFATE 325 MG (65 MG ELEMENTAL IRON) TAB PO SCH (09:30)
[2017-06-27] MEDS: CYPROHEPTADINE HCL 4 MG TAB PO SCH ×2 (09:30→21:22)
[2017-06-27] MEDS: GABAPENTIN 400 MG CAP PO SCH ×3 (09:30→18:28)
[2017-06-27] MEDS: DOCUSATE SODIUM 50 MG/SENNA 8.6 MG TAB PO SCH ×2 (09:30→21:00)
[2017-06-27] MEDS: SODIUM CHLORIDE 0.9% FLUSH 10 ML FLUSH IV FLUSH SCH ×2 (09:30→21:23)
[2017-06-27] MEDS: LACTOBACILLUS ACIDOPHILUS TAB PO SCH ×2 (09:30→21:22)
[2017-06-27] MEDS: CYCLOBENZAPRINE HCL 10 MG TAB PO SCH ×3 (09:30→18:28)
[2017-06-27] MEDS: SODIUM HYPOCHLORITE 0.25% 500 ML BTL TOPICAL SCH ×2 (09:39→21:00)
[2017-06-27] MEDS: ZINC OXIDE 40% OINT 60 GM TUBE TOPICAL SCH ×2 (09:39→21:00)
[2017-06-27 12:00] VITALS: BP 98/55; PULSE 79; RESP 18; TEMP 97; O2SAT 98
[2017-06-27] MEDS: DAPTOmycin INJ 320 MG in SODIUM CHLORIDE 0.9% INJ 100 ML IV SCH (12:00)
[2017-06-27] MEDS: ENOXAPARIN SODIUM 40 MG/0.4 ML SYRINGE SQ SCH (15:53)
--- NOTE | 2017-06-27 15:53 | HHI.PR ---
Subjective Remarks c/o some pain in sacral area, however this responds to pain medication being administered. BP borderline low. Objective Vitals Vital Signs Date Time Temp Pulse Resp B/P (MAP) Pulse Ox O2 Delivery O2 Flow Rate FiO2 06/27/17 12:00 97.0 79 18 98/55 (69) 98 06/27/17 08:00 98.0 69 18 112/66 (81) 99 06/27/17 07:00 Room Air 06/27/17 04:00 99.1 80 21 98/58 (71) 95 06/27/17 04:00 Room Air 06/27/17 00:00 Room Air 06/27/17 00:00 98.0 73 18 92/53 (66) 96 06/26/17 20:00 Room Air 06/26/17 20:00 98.8 86 18 102/59 (73) 95 06/26/17 16:00 98.4 81 18 110/56 (74) 95 I/O 06/26/17 06/26/17 06/26/17 06/27/17 06/27/17 06/27/17 07:00 15:00 23:00 07:00 15:00 23:00 Intake Total 480 ml 200 ml 580 ml 980 ml Output Total 550 ml 400 ml 650 ml Balance -70 ml 200 ml 180 ml 330 ml Intake Oral 480 ml 480 ml 880 ml IV Total 200 ml 100 ml 100 ml Output Urine Total 550 ml 400 ml 650 ml # Bowel Movements 0 Result Diagram: 06/24/17 0831 06/25/17 1045 Imaging Last Impressions Chest X-Ray 06/22/17 1157 Signed Impressions: Service Date/Time: Thursday, June 22, 2017 12:28 - CONCLUSION: No acute disease. Wes Callejas Jr., MD Objective Remarks GENERAL: NAD, A&Ox3 HEAD: Normocephalic. NECK: Supple, trachea midline. No lymphadenopathy. EYES: No scleral icterus. No injection or drainage. CARDIOVASCULAR: Regular rate and rhythm without murmurs, gallops, or rubs. RESPIRATORY: Breath sounds equal bilaterally. No accessory muscle use. GASTROINTESTINAL: Abdomen soft, non-tender, nondistended. MUSCULOSKELETAL: No cyanosis, or edema. (Patient declines another exam of his sacral wound due to pain, ER physician documented, "Extensive stage IV decubitus ulcer buttock sacral coccyx area. Mild drainage noted.") SKIN: Warm and dry. NEURO: No focal neurological deficitis. Medications and IVs Current Medications Medications (Trade) Dose Ordered Sig/Haja Route Start Time Stop Time Status Last Admin (NS Flush) 2 ml UNSCH PRN IV FLUSH 06/22/17 17:00 06/24/17 22:56 (NS Flush) 2 ml BID IV FLUSH 06/22/17 21:00 06/27/17 09:30 (Zofran Inj) 4 mg Q6H PRN IVP 06/22/17 17:00 (Lovenox Inj) 40 mg Q24H SQ 06/22/17 17:00 06/27/17 15:53 (Percocet 5-325 Mg) 1 tab Q4H PRN PO 06/22/17 17:00 (Narcan Inj) 0.4 mg UNSCH PRN IV PUSH 06/22/17 17:00 (Whitney-Colace) 1 tab BID PO 06/22/17 21:00 06/27/17 09:30 (Milk Of Magnesia Liq) 30 ml Q12H PRN PO 06/22/17 17:00 (Senokot) 17.2 mg Q12H PRN PO 06/22/17 17:00 (Lactulose Liq) 30 ml DAILY PRN PO 06/22/17 17:00 Fluconazole/ Sodium Chloride 50 ml @ 50 mls/hr Q24H IV 06/22/17 17:00 06/26/17 17:16 Piperacillin Sod/ Tazobactam Sod 100 ml @ 200 mls/hr Q8H IV 06/23/17 17:00 06/27/17 15:52 (Dakin'S 0.25% Soln) 500 ml BID TOPICAL 06/23/17 21:00 06/27/17 09:39 (Desitin 40% Oint) 1 applic BID TOPICAL 06/23/17 21:00 06/27/17 09:39 (Flexeril) 10 mg TID PO 06/25/17 09:00 06/27/17 12:01 (Periactin) 4 mg BID PO 06/24/17 21:00 06/27/17 09:30 (Ferrous Sulfate) 325 mg DAILY PO 06/25/17 09:00 06/27/17 09:30 (Neurontin) 800 mg TID PO 06/25/17 09:00 06/27/17 12:01 (Dilaudid) 4 mg Q6H PRN PO 06/24/17 18:15 06/27/17 15:51 (Remeron) 15 mg HS PO 06/24/17 21:00 06/26/17 21:28 (ZyPREXA) 15 mg HS PO 06/24/17 21:00 06/26/17 21:28 (Vitamin B6) 50 mg DAILY PO 06/25/17 09:00 06/27/17 09:29 (Lactinex) 1 tab BID PO 06/24/17 21:00 06/27/17 09:30 Daptomycin 320 mg/ Sodium Chloride 100 ml @ 200 mls/hr Q24H IV 06/26/17 11:00 06/27/17 12:00 Sodium Chloride 500 ml @ 500 mls/hr BOLUS ONCE IV 06/27/17 16:00 06/27/17 16:59 A/P Problem List: (1) Decubitus ulcer ICD Code: L89.90 - Pressure ulcer of unspecified site, unspecified stage Status: Chronic (2) Neurogenic bladder ICD Code: N31.9 - Neuromuscular dysfunction of bladder, unspecified Status: Chronic (3) Paraplegia ICD Code: G82.20 - Paraplegia, unspecified Status: Chronic (4) UTI (urinary tract infection) ICD Code: N39.0 - Urinary tract infection Status: Resolved Assessment and Plan 36-year-old male admitted secondary to worsening sacral decubitus pressure ulcer and complicated urinary tract infection with chronic suprapubic catheter. Worsening sacral decubitus pressure ulcer Paraplegia Paralysis increases risk for pressure ulcers Plastic surgery consulted Continue wound care Continue preventative management for that source 06/23 start IV zosyn, ID consult. 06/24 wound cultures are growing Pseudomonas species and MRSA. Blood cultures is growing 1 out of 2 bottles positive for streptococcus viridans. ID consulted . 06/26 appreciate ID recommendations. I will continue the patient on IV Zosyn and IV daptomycin. Further antibiotic adjustment as per ID. Complicated urinary tract infection Chronic suprapubic catheter Budding yeast on UA Start diflucan Change suprapubic catheter Repeat UA after catheter change Follow urine culture 06/23 Continue Diflucan Likely UTI is secondary to a chronic suprapubic catheter. Chronic anemia Follow CBC Colostomy Supportive care Nursing management Hypotension - will order 500 ml normal saline bolus. History of DVT DVT prophylaxis: Lovenox Sq. Discharge Planning Pending ID clearance. stabilization of BP. Mike Lyle MD Jun 27, 2017 15:53
[2017-06-27 16:00] VITALS: BP 104/57; PULSE 84; RESP 18; TEMP 98.8; O2SAT 94
[2017-06-27] MEDS ORDERED: SODIUM CHLORID 0.9% 500 ML INJ 500 ML IV ONE (16:00)
[2017-06-27] MEDS: FLUCONAZOLE 100 MG PREMIX BAG 50 ML IV SCH (18:28)
[2017-06-27 20:00] VITALS: BP 119/58; PULSE 90; RESP 20; TEMP 98.3; O2SAT 100
[2017-06-27] MEDS: MIRTAZAPINE 15 MG TAB PO SCH (21:22)
[2017-06-28 00:54] VITALS: BP 111/60; PULSE 82; RESP 22; TEMP 97.6; O2SAT 98
[2017-06-28] MEDS: PIPERACIL-TAZO 4.5 GM PREMIX 100 ML IV SCH ×3 (00:59→19:35)
[2017-06-28 04:54] VITALS: BP 109/68; PULSE 70; RESP 20; TEMP 97.6; O2SAT 97
[2017-06-28] MEDS: HYDROmorphone HCL 4 MG TAB PO PRN ×3 (05:07→19:47)
[2017-06-28 08:00] VITALS: BP 102/56; PULSE 73; RESP 18; TEMP 97.7; O2SAT 96
[2017-06-28] MEDS: CYCLOBENZAPRINE HCL 10 MG TAB PO SCH ×3 (08:53→19:34)
[2017-06-28] MEDS: PYRIDOXINE HCL 50 MG TAB PO SCH (08:53)
[2017-06-28] MEDS: GABAPENTIN 400 MG CAP PO SCH ×3 (08:53→19:34)
[2017-06-28] MEDS: CYPROHEPTADINE HCL 4 MG TAB PO SCH ×2 (08:54→21:44)
[2017-06-28] MEDS: FERROUS SULFATE 325 MG (65 MG ELEMENTAL IRON) TAB PO SCH (08:54)
[2017-06-28] MEDS: LACTOBACILLUS ACIDOPHILUS TAB PO SCH ×2 (08:54→21:44)
[2017-06-28] MEDS: DOCUSATE SODIUM 50 MG/SENNA 8.6 MG TAB PO SCH ×2 (08:55→21:44)
[2017-06-28] MEDS: SODIUM HYPOCHLORITE 0.25% 500 ML BTL TOPICAL SCH ×2 (08:55→21:00)
[2017-06-28] MEDS: SODIUM CHLORIDE 0.9% FLUSH 10 ML FLUSH IV FLUSH SCH ×2 (08:55→21:45)
[2017-06-28] MEDS: ZINC OXIDE 40% OINT 60 GM TUBE TOPICAL SCH ×2 (08:55→21:00)
[2017-06-28] MEDS: DAPTOmycin INJ 320 MG in SODIUM CHLORIDE 0.9% INJ 100 ML IV SCH (11:50)
[2017-06-28 12:00] VITALS: BP 110/58; PULSE 70; RESP 18; TEMP 98.1; O2SAT 96
--- NOTE | 2017-06-28 15:27 | HHI.PR ---
Addendum to Inpatient Note Additional Information pt was seen today around 12pm - full note to follow Rita Vickers MD Jun 28, 2017 15:27
[2017-06-28 16:00] VITALS: BP 108/57; PULSE 76; RESP 20; TEMP 98.3; O2SAT 96
--- NOTE | 2017-06-28 19:09 | HHI.PR ---
Subjective Remarks c/o pain in sacral area were wound. denies fevers or chills. Objective Vitals Vital Signs Date Time Temp Pulse Resp B/P (MAP) Pulse Ox O2 Delivery O2 Flow Rate FiO2 06/28/17 16:00 98.3 76 20 108/57 (74) 96 06/28/17 12:00 98.1 70 18 110/58 (75) 96 06/28/17 08:00 97.7 73 18 102/56 (71) 96 06/28/17 07:20 Room Air 06/28/17 04:54 97.6 70 20 109/68 (82) 97 06/28/17 04:00 Room Air 06/28/17 00:54 97.6 82 22 111/60 (77) 98 06/27/17 20:00 Room Air 06/27/17 20:00 98.3 90 20 119/58 (78) 100 I/O 06/27/17 06/27/17 06/27/17 06/28/17 06/28/17 06/28/17 07:00 15:00 23:00 07:00 15:00 23:00 Intake Total 980 ml 2420 ml 240 ml 480 ml Output Total 650 ml 750 ml 350 ml 650 ml Balance 330 ml 1670 ml -110 ml -170 ml Intake Oral 880 ml 720 ml 240 ml 480 ml IV Total 100 ml 1700 ml Output Urine Total 650 ml 450 ml 350 ml 650 ml Stool Total 300 ml # Bowel Movements 0 0 Result Diagram: 06/24/17 0831 06/25/17 1045 Objective Remarks GENERAL: NAD, A&Ox3 HEAD: Normocephalic. NECK: Supple, trachea midline. No lymphadenopathy. EYES: No scleral icterus. No injection or drainage. CARDIOVASCULAR: Regular rate and rhythm without murmurs, gallops, or rubs. RESPIRATORY: Breath sounds equal bilaterally. No accessory muscle use. GASTROINTESTINAL: Abdomen soft, non-tender, nondistended. MUSCULOSKELETAL: No cyanosis, or edema. (Patient declines another exam of his sacral wound due to pain, ER physician documented, "Extensive stage IV decubitus ulcer buttock sacral coccyx area. Mild drainage noted.") SKIN: Warm and dry. NEURO: No focal neurological deficitis. A/P Problem List: (1) Decubitus ulcer ICD Code: L89.90 - Pressure ulcer of unspecified site, unspecified stage Status: Chronic (2) Neurogenic bladder ICD Code: N31.9 - Neuromuscular dysfunction of bladder, unspecified Status: Chronic (3) Paraplegia ICD Code: G82.20 - Paraplegia, unspecified Status: Chronic (4) UTI (urinary tract infection) ICD Code: N39.0 - Urinary tract infection Status: Resolved Assessment and Plan 36-year-old male admitted secondary to worsening sacral decubitus pressure ulcer and complicated urinary tract infection with chronic suprapubic catheter. Worsening sacral decubitus pressure ulcer Paraplegia Paralysis increases risk for pressure ulcers Plastic surgery consulted Continue wound care Continue preventative management for that source 06/23 start IV zosyn, ID consult. 06/24 wound cultures are growing Pseudomonas species and MRSA. Blood cultures is growing 1 out of 2 bottles positive for streptococcus viridans. ID consulted . 06/26 appreciate ID recommendations. I will continue the patient on IV Zosyn and IV daptomycin. Further antibiotic adjustment as per ID. 06/28 As per ID - change current abx to teflaro, levaquine cont for 2 weeks stop on daptomycin dc fluconazole Complicated urinary tract infection Chronic suprapubic catheter Budding yeast on UA Start diflucan Change suprapubic catheter Repeat UA after catheter change Follow urine culture 06/23 Continue Diflucan Likely UTI is secondary to a chronic suprapubic catheter. Chronic anemia Follow CBC Colostomy Supportive care Nursing management Hypotension - SP IV normal saline bolus. BP now stable. Continue to monitor vital signs. History of DVT DVT prophylaxis: Lovenox Sq. Discharge Planning Pending ID clearance. stabilization of BP. Mike Lyle MD Jun 28, 2017 19:09
[2017-06-28] MEDS: FLUCONAZOLE 100 MG PREMIX BAG 50 ML IV SCH (19:35)
--- NOTE | 2017-06-28 19:46 | HHI.IDPN ---
Subjective Subjective Remarks delayed entry pt was seen earlier today no fever feels OK afebrile WBC normal Antibiotics daptomycin zosyn Allergies: Coded Allergies: morphine (Unverified Allergy, Severe, HIVES, 03/06/17) vancomycin (Unverified Adverse Reaction, Mild, HIVES, 03/06/17) ONLY WHEN INFUSED TOO QUICKLY Objective . Vital Signs Date Time Temp Pulse Resp B/P (MAP) Pulse Ox O2 Delivery O2 Flow Rate FiO2 06/28/17 16:00 98.3 76 20 108/57 (74) 96 06/28/17 12:00 98.1 70 18 110/58 (75) 96 06/28/17 08:00 97.7 73 18 102/56 (71) 96 06/28/17 07:20 Room Air 06/28/17 04:54 97.6 70 20 109/68 (82) 97 06/28/17 04:00 Room Air 06/28/17 00:54 97.6 82 22 111/60 (77) 98 06/27/17 20:00 Room Air 06/27/17 20:00 98.3 90 20 119/58 (78) 100 06/28/17 06/28/17 06/29/17 15:00 23:00 07:00 Intake Total 480 ml Output Total 650 ml Balance -170 ml Intake Oral 480 ml Output Urine Total 650 ml # Bowel Movements 0 . Laboratory Tests Test 06/27/17 05:15 Total Creatine Kinase 36 U/L Imaging Last Impressions Chest X-Ray 06/22/17 1157 Signed Impressions: Service Date/Time: Thursday, June 22, 2017 12:28 - CONCLUSION: No acute disease. Wes Callejas Jr., MD Physical Exam CONSTITUTIONAL/GENERAL: This is an adequately nourished patient, in no apparent distress. TUBES/LINES/DRAINS: LUE with PICC in place SKIN: No jaundice, rashes, or lesions. Extensive sactral and ischial decubs were examined No odor, minimal serous drainage CARDIOVASCULAR: Regular rate and rhythm without murmurs, gallops, or rubs. No JVD. Peripheral pulses symmetric. RESPIRATORY/CHEST: Symmetric, unlabored respirations. Clear to auscultation. Breath sounds equal bilaterally. No wheezes, rales, or rhonchi. GASTROINTESTINAL: Abdomen soft, non-tender, nondistended. No hepato-splenomegaly , or palpable masses. No guarding. Bowel sounds present. GENITOURINARY: Without palpable bladder distension. SP cath in place with cloudy urine MUSCULOSKELETAL: Extremities without clubbing, cyanosis, or edema. No joint tenderness or effusion noted. No calf tenderness. No mottling or clubbing. Prom,inent m,uscle bulk loss of b/l LE NEUROLOGICAL: Awake and alert. Motor and sensory grossly within normal limits in BUE. Flaccid lower paraparesis Follows commands. Clear speech. Moves all extremities. PSYCHIATRIC: depressed mood. flat affect. Assessment & Plan Remarks Traumatic spinal cord injury with paraplegia Neurogenic bladder with SP cath Complicated UTI Sacral decubs, appear fairly clean growing PSAE, MRSA along with >= enteric GNBs Viridans strep/corynebacterial low grade bacteremia - in same set, liekly contaminant - change current abx to teflaro, levaquine cont for 2 weeks stop on daptomycin dc fluconazole - surface cultures not indicated fro treatmetn of infected decubs 2/2 contamination/colonisation to Rita Ingram MD Jun 28, 2017 19:46
[2017-06-28] MEDS: ENOXAPARIN SODIUM 40 MG/0.4 ML SYRINGE SQ SCH (19:48)
[2017-06-28 20:00] VITALS: BP 109/57; PULSE 89; RESP 20; TEMP 98.3; O2SAT 96
[2017-06-28] MEDS: LEVOFLOXACIN 750 MG TAB PO SCH (21:44)
[2017-06-28] MEDS: MIRTAZAPINE 15 MG TAB PO SCH (21:44)
[2017-06-28] MEDS: CEFTAROLINE INJ 600 MG in SODIUM CHLORIDE 0.9% INJ 100 ML IV SCH (21:45)
[2017-06-29] VITALS: BP 112/84; PULSE 86; RESP 22; TEMP 98.1; O2SAT 96
[2017-06-29 04:00] VITALS: BP 119/65; PULSE 74; RESP 22; TEMP 98.2; O2SAT 98
[2017-06-29 08:00] VITALS: BP 126/68; PULSE 72; RESP 20; TEMP 97.7; O2SAT 95
[2017-06-29] MEDS: DOCUSATE SODIUM 50 MG/SENNA 8.6 MG TAB PO SCH ×2 (09:00→21:00)
[2017-06-29] MEDS: LEVOFLOXACIN 750 MG TAB PO SCH (09:11)
[2017-06-29] MEDS: FERROUS SULFATE 325 MG (65 MG ELEMENTAL IRON) TAB PO SCH (09:11)
[2017-06-29] MEDS: CYPROHEPTADINE HCL 4 MG TAB PO SCH ×2 (09:11→21:11)
[2017-06-29] MEDS: CYCLOBENZAPRINE HCL 10 MG TAB PO SCH ×3 (09:11→18:02)
[2017-06-29] MEDS: LACTOBACILLUS ACIDOPHILUS TAB PO SCH ×2 (09:11→21:11)
[2017-06-29] MEDS: PYRIDOXINE HCL 50 MG TAB PO SCH (09:11)
[2017-06-29] MEDS: SODIUM CHLORIDE 0.9% FLUSH 10 ML FLUSH IV FLUSH SCH ×2 (09:12→21:00)
[2017-06-29] MEDS: CEFTAROLINE INJ 600 MG in SODIUM CHLORIDE 0.9% INJ 100 ML IV SCH (09:12)
[2017-06-29] MEDS: GABAPENTIN 400 MG CAP PO SCH ×3 (09:12→18:01)
[2017-06-29] MEDS: ZINC OXIDE 40% OINT 60 GM TUBE TOPICAL SCH ×2 (09:13→21:00)
[2017-06-29] MEDS: SODIUM HYPOCHLORITE 0.25% 500 ML BTL TOPICAL SCH ×2 (09:13→21:00)
[2017-06-29 12:00] VITALS: BP 106/65; PULSE 90; RESP 18; TEMP 98.1; O2SAT 96
[2017-06-29] MEDS: HYDROmorphone HCL 4 MG TAB PO PRN (14:15)
[2017-06-29 16:15] VITALS: BP 110/63; PULSE 94; RESP 18; TEMP 98.6; O2SAT 97
--- NOTE | 2017-06-29 17:16 | HHI.PR ---
Subjective Remarks no major overnight events. denies fevers/chills. states that sacral pain is much improved. denies rash denies diarrhea Objective Vitals Vital Signs Date Time Temp Pulse Resp B/P (MAP) Pulse Ox O2 Delivery O2 Flow Rate FiO2 06/29/17 16:15 98.6 94 18 110/63 (79) 97 06/29/17 12:00 98.1 90 18 106/65 (79) 96 06/29/17 08:00 97.7 72 20 126/68 (87) 95 06/29/17 04:00 98.2 74 22 119/65 (83) 98 06/29/17 00:00 98.1 86 22 112/84 (93) 96 06/28/17 20:00 Room Air 06/28/17 20:00 98.3 89 20 109/57 (74) 96 I/O 06/28/17 06/28/17 06/28/17 06/29/17 06/29/17 06/29/17 07:00 15:00 23:00 07:00 15:00 23:00 Intake Total 240 ml 850 ml 720 ml 480 ml Output Total 350 ml 650 ml 1050 ml 500 ml Balance -110 ml 200 ml -330 ml -20 ml Intake Oral 240 ml 600 ml 720 ml 480 ml IV Total 250 ml Output Urine Total 350 ml 650 ml 700 ml 500 ml Stool Total 350 ml # Bowel Movements 0 Result Diagram: 06/25/17 1045 Imaging Last Impressions Chest X-Ray 06/22/17 1157 Signed Impressions: Service Date/Time: Thursday, June 22, 2017 12:28 - CONCLUSION: No acute disease. Wes Callejas Jr., MD Objective Remarks GENERAL: NAD, A&Ox3 HEAD: Normocephalic. NECK: Supple, trachea midline. No lymphadenopathy. EYES: No scleral icterus. No injection or drainage. CARDIOVASCULAR: Regular rate and rhythm without murmurs, gallops, or rubs. RESPIRATORY: Breath sounds equal bilaterally. No accessory muscle use. GASTROINTESTINAL: Abdomen soft, non-tender, nondistended. MUSCULOSKELETAL: No cyanosis, or edema. (Patient declines another exam of his sacral wound due to pain, ER physician documented, "Extensive stage IV decubitus ulcer buttock sacral coccyx area. Mild drainage noted.") SKIN: Warm and dry. NEURO: No focal neurological deficitis. Medications and IVs Current Medications Medications (Trade) Dose Ordered Sig/Haja Route Start Time Stop Time Status Last Admin (NS Flush) 2 ml UNSCH PRN IV FLUSH 06/22/17 17:00 06/24/17 22:56 (NS Flush) 2 ml BID IV FLUSH 06/22/17 21:00 06/29/17 09:12 (Zofran Inj) 4 mg Q6H PRN IVP 06/22/17 17:00 (Lovenox Inj) 40 mg Q24H SQ 06/22/17 17:00 06/28/17 19:48 (Percocet 5-325 Mg) 1 tab Q4H PRN PO 06/22/17 17:00 (Narcan Inj) 0.4 mg UNSCH PRN IV PUSH 06/22/17 17:00 (Whitney-Colace) 1 tab BID PO 06/22/17 21:00 06/28/17 21:44 (Milk Of Magnesia Liq) 30 ml Q12H PRN PO 06/22/17 17:00 (Senokot) 17.2 mg Q12H PRN PO 06/22/17 17:00 (Lactulose Liq) 30 ml DAILY PRN PO 06/22/17 17:00 (Dakin'S 0.25% Soln) 500 ml BID TOPICAL 06/23/17 21:00 06/29/17 09:13 (Desitin 40% Oint) 1 applic BID TOPICAL 06/23/17 21:00 06/29/17 09:13 (Flexeril) 10 mg TID PO 06/25/17 09:00 06/29/17 12:14 (Periactin) 4 mg BID PO 06/24/17 21:00 06/29/17 09:11 (Ferrous Sulfate) 325 mg DAILY PO 06/25/17 09:00 06/29/17 09:11 (Neurontin) 800 mg TID PO 06/25/17 09:00 06/29/17 12:14 (Dilaudid) 4 mg Q6H PRN PO 06/24/17 18:15 06/29/17 14:15 (Remeron) 15 mg HS PO 06/24/17 21:00 06/28/17 21:44 (ZyPREXA) 15 mg HS PO 06/24/17 21:00 127/17 21:44 (Vitamin B6) 50 mg DAILY PO 06/25/17 09:00 06/29/17 09:11 (Lactinex) 1 tab BID PO 06/24/17 21:00 06/29/17 09:11 (Levaquin) 750 mg DAILY PO 06/28/17 20:30 06/29/17 09:11 Ceftaroline Fosamil 600 mg/ Sodium Chloride 100 ml @ 100 mls/hr Q12H IV 06/28/17 21:00 06/29/17 09:12 A/P Problem List: (1) Decubitus ulcer ICD Code: L89.90 - Pressure ulcer of unspecified site, unspecified stage Status: Chronic (2) Neurogenic bladder ICD Code: N31.9 - Neuromuscular dysfunction of bladder, unspecified Status: Chronic (3) Paraplegia ICD Code: G82.20 - Paraplegia, unspecified Status: Chronic (4) UTI (urinary tract infection) ICD Code: N39.0 - Urinary tract infection Status: Resolved Assessment and Plan 36-year-old male admitted secondary to worsening sacral decubitus pressure ulcer and complicated urinary tract infection with chronic suprapubic catheter. Worsening sacral decubitus pressure ulcer Paraplegia Paralysis increases risk for pressure ulcers Plastic surgery consulted Continue wound care Continue preventative management for that source 06/23 start IV zosyn, ID consult. 06/24 wound cultures are growing Pseudomonas species and MRSA. Blood cultures is growing 1 out of 2 bottles positive for streptococcus viridans. ID consulted . 06/26 appreciate ID recommendations. I will continue the patient on IV Zosyn and IV daptomycin. Further antibiotic adjustment as per ID. 06/28 As per ID - change current abx to teflaro, levaquine cont for 2 weeks stop on daptomycin dc fluconazole 06/29 Antibiotics as per ID. Complicated urinary tract infection Chronic suprapubic catheter Budding yeast on UA Start diflucan Change suprapubic catheter Repeat UA after catheter change Follow urine culture 06/23 Continue Diflucan Likely UTI is secondary to a chronic suprapubic catheter. Chronic anemia Follow CBC Colostomy Supportive care Nursing management Hypotension - SP IV normal saline bolus. BP now stable. Continue to monitor vital signs. History of DVT DVT prophylaxis: Lovenox Sq. Discharge Planning Pending ID clearance. Needs IV antibiotic order by ID. Also needs rehab placement. Mike Lyle MD Jun 29, 2017 17:16
[2017-06-29] MEDS: ENOXAPARIN SODIUM 40 MG/0.4 ML SYRINGE SQ SCH (18:01)
--- NOTE | 2017-06-29 19:10 | HHI.PR ---
Addendum to Inpatient Note Additional Information blood clx cw contamination will change abx to levaquine 750 mg po + Bactrim OK to dc to rehab from ID standpoint Rita Vickers MD Jun 29, 2017 19:10
[2017-06-29 20:00] VITALS: BP 115/58; PULSE 82; RESP 16; TEMP 98.5; O2SAT 95
[2017-06-29] MEDS: SULFAMETHOXAZOLE-TRIMETHOPRIM DS 800-160 MG TAB PO SCH (21:11)
[2017-06-29] MEDS: MIRTAZAPINE 15 MG TAB PO SCH (21:11)
[2017-06-30] VITALS: BP 105/60; PULSE 72; RESP 18; TEMP 97.9; O2SAT 97
[2017-06-30 04:00] VITALS: BP 106/66; PULSE 66; RESP 16; TEMP 97.5; O2SAT 97
[2017-06-30 08:00] VITALS: BP 90/55; PULSE 77; RESP 18; TEMP 98.5; O2SAT 98
[2017-06-30] MEDS: DOCUSATE SODIUM 50 MG/SENNA 8.6 MG TAB PO SCH ×2 (09:00→21:00)
[2017-06-30] MEDS ORDERED: SULF1TAB23 PO (09:33)
[2017-06-30] MEDS ORDERED: DILA4TAB10 PO (09:33)
[2017-06-30] MEDS ORDERED: LEVA750T9 PO (09:33)
[2017-06-30] MEDS: LEVOFLOXACIN 750 MG TAB PO SCH (09:45)
[2017-06-30] MEDS: PYRIDOXINE HCL 50 MG TAB PO SCH (09:45)
[2017-06-30] MEDS: CYCLOBENZAPRINE HCL 10 MG TAB PO SCH ×3 (09:45→17:09)
[2017-06-30] MEDS: LACTOBACILLUS ACIDOPHILUS TAB PO SCH ×2 (09:45→22:28)
[2017-06-30] MEDS: CYPROHEPTADINE HCL 4 MG TAB PO SCH ×2 (09:46→22:28)
[2017-06-30] MEDS: HYDROmorphone HCL 4 MG TAB PO PRN (09:46)
[2017-06-30] MEDS: SULFAMETHOXAZOLE-TRIMETHOPRIM DS 800-160 MG TAB PO SCH ×2 (09:46→22:28)
[2017-06-30] MEDS: FERROUS SULFATE 325 MG (65 MG ELEMENTAL IRON) TAB PO SCH (09:46)
[2017-06-30] MEDS: GABAPENTIN 400 MG CAP PO SCH ×3 (09:46→17:09)
[2017-06-30] MEDS: SODIUM CHLORIDE 0.9% FLUSH 10 ML FLUSH IV FLUSH SCH ×2 (09:47→22:28)
[2017-06-30] MEDS: ZINC OXIDE 40% OINT 60 GM TUBE TOPICAL SCH ×2 (09:47→22:29)
[2017-06-30] MEDS: SODIUM HYPOCHLORITE 0.25% 500 ML BTL TOPICAL SCH ×2 (09:47→22:29)
[2017-06-30 12:00] VITALS: BP 119/65; PULSE 99; RESP 18; TEMP 98.1; O2SAT 99
--- NOTE | 2017-06-30 12:30 | HHI.PR ---
Subjective Remarks Patient seen this morning around 10 AM. Says he is feeling all right. Denies any chest pain or Shortness of breath. Reports pain is under control. Objective Vital Signs Date Time Temp Pulse Resp B/P (MAP) Pulse Ox O2 Delivery O2 Flow Rate FiO2 06/30/17 08:00 98.5 77 18 90/55 (67) 98 06/30/17 04:00 97.5 66 16 106/66 (79) 97 06/30/17 00:00 97.9 72 18 105/60 (75) 97 06/29/17 20:00 98.5 82 16 115/58 (77) 95 06/29/17 16:15 98.6 94 18 110/63 (79) 97 I/O 06/29/17 06/29/17 06/29/17 06/30/17 06/30/17 06/30/17 07:00 15:00 23:00 07:00 15:00 23:00 Intake Total 720 ml 580 ml 100 ml Output Total 1050 ml 500 ml Balance -330 ml 80 ml 100 ml Intake Oral 720 ml 480 ml IV Total 100 ml 100 ml Output Urine Total 700 ml 500 ml Stool Total 350 ml Objective Remarks GENERAL: Patient lying in bed. Appears comfortable. SKIN: Warm and dry. HEAD: Normocephalic. EYES: No scleral icterus. No injection or drainage. NECK: Supple, trachea midline. No JVD or lymphadenopathy. CARDIOVASCULAR: Regular rate and rhythm without murmurs, gallops, or rubs. RESPIRATORY: Breath sounds equal bilaterally. No accessory muscle use. GASTROINTESTINAL: Abdomen soft, non-tender, nondistended. Ostomy without any surrounding erythema. No leakage. MUSCULOSKELETAL: No cyanosis, or edema. Peripheral perfusion intact. BACK: Nontender without obvious deformity. No CVA tenderness. A/P Assessment and Plan 36-year-old male admitted secondary to worsening sacral decubitus pressure ulcer and complicated urinary tract infection with chronic suprapubic catheter. //Worsening sacral decubitus pressure ulcer //Paraplegia Paralysis increases risk for pressure ulcers Plastic surgery consulted Continue wound care Continue preventative management for that source 06/23 start IV zosyn, ID consult. 06/24 wound cultures are growing Pseudomonas species and MRSA. Blood cultures is growing 1 out of 2 bottles positive for streptococcus viridans. ID consulted. 06/26 appreciate ID recommendations. I will continue the patient on IV Zosyn and IV daptomycin. Further antibiotic adjustment as per ID. 06/28 As per ID - change current abx to teflaro, levaquine cont for 2 weeks stop on daptomycin dc fluconazole 06/29 Antibiotics as per ID. = 06/30. As per infectious disease. Continue Levaquin, Bactrim to complete treatment course. Follow-up with wound care and infectious disease as outpatient. //Complicated urinary tract infection //Chronic suprapubic catheter Budding yeast on UA Start diflucan Change suprapubic catheter Repeat UA after catheter change Follow urine culture 06/23 Continue Diflucan Likely UTI is secondary to a chronic suprapubic catheter. = 06/30. Continue antibiotics as per infectious disease. Appreciate assistance. //Chronic anemia Follow CBC //Colostomy Supportive care Nursing management //Hypotension - SP IV normal saline bolus. BP now stable. Continue to monitor vital signs. //History of DVT DVT prophylaxis: Lovenox Sq. Discharge Planning Discharge on antibiotics as per infectious disease -Rehabilitation placement discussed with nursing, case management team at [facility]. Lyndon Wilkes MD Jun 30, 2017 12:29
[2017-06-30 16:00] VITALS: BP 106/68; PULSE 93; RESP 22; TEMP 98.2; O2SAT 97
[2017-06-30] MEDS: ENOXAPARIN SODIUM 40 MG/0.4 ML SYRINGE SQ SCH (17:09)
[2017-06-30 20:00] VITALS: BP 132/64; PULSE 87; RESP 16; TEMP 98.9; O2SAT 97
[2017-06-30] MEDS: MIRTAZAPINE 15 MG TAB PO SCH (22:28)
[2017-07-01] VITALS: BP 102/63; PULSE 83; RESP 16; TEMP 97.5; O2SAT 96
[2017-07-01] MEDS: HYDROmorphone HCL 4 MG TAB PO PRN ×3 (04:58→17:41)
[2017-07-01 08:00] VITALS: BP 110/67; PULSE 69; RESP 18; TEMP 97.2; O2SAT 98
[2017-07-01] MEDS: DOCUSATE SODIUM 50 MG/SENNA 8.6 MG TAB PO SCH ×2 (09:00→21:00)
[2017-07-01] MEDS: LACTOBACILLUS ACIDOPHILUS TAB PO SCH ×2 (09:55→21:23)
[2017-07-01] MEDS: FERROUS SULFATE 325 MG (65 MG ELEMENTAL IRON) TAB PO SCH (09:55)
[2017-07-01] MEDS: GABAPENTIN 400 MG CAP PO SCH ×3 (09:55→17:41)
[2017-07-01] MEDS: CYPROHEPTADINE HCL 4 MG TAB PO SCH ×2 (09:55→21:22)
[2017-07-01] MEDS: PYRIDOXINE HCL 50 MG TAB PO SCH (09:55)
[2017-07-01] MEDS: CYCLOBENZAPRINE HCL 10 MG TAB PO SCH ×3 (09:55→17:41)
[2017-07-01] MEDS: SULFAMETHOXAZOLE-TRIMETHOPRIM DS 800-160 MG TAB PO SCH ×2 (09:55→21:22)
[2017-07-01] MEDS: ZINC OXIDE 40% OINT 60 GM TUBE TOPICAL SCH ×2 (09:58→21:00)
[2017-07-01] MEDS: SODIUM HYPOCHLORITE 0.25% 500 ML BTL TOPICAL SCH ×2 (09:58→21:00)
[2017-07-01] MEDS: SODIUM CHLORIDE 0.9% FLUSH 10 ML FLUSH IV FLUSH SCH ×2 (09:58→21:23)
[2017-07-01] MEDS: LEVOFLOXACIN 750 MG TAB PO SCH (11:38)
[2017-07-01 12:00] VITALS: BP_SYST 112; BP_SYST 136; BP_DIAS 70; BP_DIAS 80; PULSE 72; PULSE 97; RESP 18; RESP 20; TEMP 97.2; TEMP 98.7; O2SAT 97; O2SAT 99
[2017-07-01 16:00] VITALS: BP 126/60; PULSE 60; RESP 18; TEMP 98.5; O2SAT 99
[2017-07-01] MEDS: ENOXAPARIN SODIUM 40 MG/0.4 ML SYRINGE SQ SCH (17:41)
[2017-07-01 20:00] VITALS: BP 109/61; PULSE 97; RESP 20; TEMP 96.8; O2SAT 98
--- NOTE | 2017-07-01 20:31 | HHI.PR ---
Subjective Remarks Patient seen this morning around 11:30 AM. Says she is feeling all right. Reports pain is under control. Discussed with nursing. Objective Vital Signs Date Time Temp Pulse Resp B/P (MAP) Pulse Ox O2 Delivery O2 Flow Rate FiO2 07/01/17 18:14 Room Air 07/01/17 16:00 98.5 60 18 126/60 (82) 99 07/01/17 13:44 Room Air 07/01/17 12:00 97.2 72 20 112/70 (84) 97 07/01/17 10:00 Room Air 07/01/17 08:00 97.2 69 18 110/67 (81) 98 07/01/17 00:00 97.5 83 16 102/63 (76) 96 06/30/17 21:00 Room Air I/O 06/30/17 06/30/17 06/30/17 07/01/17 07/01/17 07/01/17 07:00 15:00 23:00 07:00 15:00 23:00 Intake Total 1440 ml 1200 ml Output Total 1250 ml 500 ml 1200 ml Balance 190 ml -500 ml 0 ml Intake Oral 1440 ml 1200 ml Output Urine Total 1250 ml 500 ml 1200 ml # Bowel Movements 1 Objective Remarks GENERAL: Patient lying in bed. Appears comfortable.no change on exam. SKIN: Warm and dry. HEAD: Normocephalic. EYES: No scleral icterus. No injection or drainage. NECK: Supple, trachea midline. No JVD or lymphadenopathy. CARDIOVASCULAR: Regular rate and rhythm without murmurs, gallops, or rubs. RESPIRATORY: Breath sounds equal bilaterally. No accessory muscle use. GASTROINTESTINAL: Abdomen soft, non-tender, nondistended. Ostomy without any surrounding erythema. No leakage. MUSCULOSKELETAL: No cyanosis, or edema. Peripheral perfusion intact. BACK: Nontender without obvious deformity. No CVA tenderness. A/P Assessment and Plan 07/01. Patient seen and examined. Vitals reviewed and acceptable. Discussed with nursing. 36-year-old male admitted secondary to worsening sacral decubitus pressure ulcer and complicated urinary tract infection with chronic suprapubic catheter. //Worsening sacral decubitus pressure ulcer //Paraplegia Paralysis increases risk for pressure ulcers Plastic surgery consulted Continue wound care Continue preventative management for that source 06/23 start IV zosyn, ID consult. 06/24 wound cultures are growing Pseudomonas species and MRSA. Blood cultures is growing 1 out of 2 bottles positive for streptococcus viridans. ID consulted. 06/26 appreciate ID recommendations. I will continue the patient on IV Zosyn and IV daptomycin. Further antibiotic adjustment as per ID. 06/28 As per ID - change current abx to teflaro, levaquine cont for 2 weeks stop on daptomycin dc fluconazole 06/29 Antibiotics as per ID. = 06/30. As per infectious disease. Continue Levaquin, Bactrim to complete treatment course. Follow-up with wound care and infectious disease as outpatient. //Complicated urinary tract infection //Chronic suprapubic catheter Budding yeast on UA Start diflucan Change suprapubic catheter Repeat UA after catheter change Follow urine culture 06/23 Continue Diflucan Likely UTI is secondary to a chronic suprapubic catheter. = 06/30. Continue antibiotics as per infectious disease. Appreciate assistance. //Chronic anemia Follow CBC //Colostomy Supportive care Nursing management //Hypotension - SP IV normal saline bolus. BP now stable. Continue to monitor vital signs. //History of DVT DVT prophylaxis: Lovenox Sq. Discharge Planning Discharge on antibiotics as per infectious disease -Rehabilitation placement discussed with nursing, case management team again at [facility]. Lyndon Wilkes MD Jul 01, 2017 20:31
[2017-07-01] MEDS: MIRTAZAPINE 15 MG TAB PO SCH (21:22)
[2017-07-02] VITALS: BP 113/72; PULSE 91; RESP 20; TEMP 98.3; O2SAT 96
[2017-07-02 04:00] VITALS: BP 108/63; PULSE 81; RESP 20; TEMP 98; O2SAT 97
[2017-07-02 08:00] VITALS: BP 109/64; PULSE 82; RESP 19; TEMP 98.1; O2SAT 97
[2017-07-02] MEDS: DOCUSATE SODIUM 50 MG/SENNA 8.6 MG TAB PO SCH ×2 (09:00→21:00)
[2017-07-02] MEDS: PYRIDOXINE HCL 50 MG TAB PO SCH (09:00)
[2017-07-02] MEDS: SODIUM CHLORIDE 0.9% FLUSH 10 ML FLUSH IV FLUSH SCH ×2 (09:00→21:34)
[2017-07-02] MEDS: SODIUM HYPOCHLORITE 0.25% 500 ML BTL TOPICAL SCH ×2 (09:00→21:33)
[2017-07-02] MEDS: ZINC OXIDE 40% OINT 60 GM TUBE TOPICAL SCH ×2 (09:00→21:33)
[2017-07-02] MEDS: SULFAMETHOXAZOLE-TRIMETHOPRIM DS 800-160 MG TAB PO SCH ×2 (09:59→21:32)
[2017-07-02] MEDS: LACTOBACILLUS ACIDOPHILUS TAB PO SCH ×2 (09:59→21:32)
[2017-07-02] MEDS: GABAPENTIN 400 MG CAP PO SCH ×3 (09:59→17:58)
[2017-07-02] MEDS: CYPROHEPTADINE HCL 4 MG TAB PO SCH ×2 (09:59→21:33)
[2017-07-02] MEDS: FERROUS SULFATE 325 MG (65 MG ELEMENTAL IRON) TAB PO SCH (09:59)
[2017-07-02] MEDS: CYCLOBENZAPRINE HCL 10 MG TAB PO SCH ×3 (09:59→17:58)
[2017-07-02] MEDS: LEVOFLOXACIN 750 MG TAB PO SCH (09:59)
[2017-07-02 12:00] VITALS: BP 126/65; PULSE 121; RESP 20; TEMP 98; O2SAT 98
--- NOTE | 2017-07-02 13:55 | HHI.PR ---
Subjective Remarks Nursing reports that patient refused dressing changes overnight due to requesting IV Dilaudid prior to dressing changes. Patient says that left hip wound is hurting more with dressing changes. Requesting IV Dilaudid. Objective Vital Signs Date Time Temp Pulse Resp B/P (MAP) Pulse Ox O2 Delivery O2 Flow Rate FiO2 07/02/17 08:00 98.1 82 19 109/64 (79) 97 07/02/17 07:49 Room Air 07/02/17 04:00 98.0 81 20 108/63 (78) 97 07/02/17 00:00 98.3 91 20 113/72 (86) 96 07/01/17 20:00 96.8 97 20 109/61 (77) 98 07/01/17 20:00 Room Air 07/01/17 18:14 Room Air 07/01/17 16:00 98.5 60 18 126/60 (82) 99 I/O 07/01/17 07/01/17 07/01/17 07/02/17 07/02/17 07/02/17 06:59 14:59 22:59 06:59 14:59 22:59 Intake Total 1520 ml 300 ml Output Total 500 ml 1200 ml 800 ml Balance -500 ml 320 ml -500 ml Intake Oral 1520 ml 300 ml Output Urine Total 500 ml 1200 ml 800 ml # Bowel Movements 0 Objective Remarks GENERAL: Patient lying in bed. Appears comfortable.no change on exam. SKIN: Warm and dry. HEAD: Normocephalic. EYES: No scleral icterus. No injection or drainage. NECK: Supple, trachea midline. No JVD or lymphadenopathy. CARDIOVASCULAR: Regular rate and rhythm without murmurs, gallops, or rubs. RESPIRATORY: Breath sounds equal bilaterally. No accessory muscle use. GASTROINTESTINAL: Abdomen soft, non-tender, nondistended. Ostomy without any surrounding erythema. No leakage. MUSCULOSKELETAL: No cyanosis, or edema. Peripheral perfusion intact. 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 No signs of infection. Sacral ulcer appears to be healing with no signs of infection. BACK: Nontender without obvious deformity. No CVA tenderness. A/P Assessment and Plan 07/02. Patient seen and examined again. Patient requesting IV Dilaudid prior to admission changes. Examined decubitus ulcers which do not appear infected. Have ordered CBC to look for any indication of new or worsening infection. Continue by mouth antibiotics as ordered. 36-year-old male admitted secondary to worsening sacral decubitus pressure ulcer and complicated urinary tract infection with chronic suprapubic catheter. //Worsening sacral decubitus pressure ulcer //Paraplegia Paralysis increases risk for pressure ulcers Plastic surgery consulted Continue wound care Continue preventative management for that source 06/23 start IV zosyn, ID consult. 06/24 wound cultures are growing Pseudomonas species and MRSA. Blood cultures is growing 1 out of 2 bottles positive for streptococcus viridans. ID consulted. 06/26 appreciate ID recommendations. I will continue the patient on IV Zosyn and IV daptomycin. Further antibiotic adjustment as per ID. 06/28 As per ID - change current abx to teflaro, levaquine cont for 2 weeks stop on daptomycin dc fluconazole 06/29 Antibiotics as per ID. = 06/30. As per infectious disease. Continue Levaquin, Bactrim to complete treatment course. Follow-up with wound care and infectious disease as outpatient. //Complicated urinary tract infection //Chronic suprapubic catheter Budding yeast on UA Start diflucan Change suprapubic catheter Repeat UA after catheter change Follow urine culture 06/23 Continue Diflucan Likely UTI is secondary to a chronic suprapubic catheter. = 06/30. Continue antibiotics as per infectious disease. Appreciate assistance. //Chronic anemia Follow CBC //Colostomy Supportive care Nursing management //Hypotension - SP IV normal saline bolus. BP now stable. Continue to monitor vital signs. //History of DVT Discharge Planning Discharge on antibiotics as per infectious disease -Rehabilitation placement discussed with nursing, case management team at [facility]. Lyndon Wilkes MD Jul 02, 2017 13:55
[2017-07-02] MEDS: HYDROmorphone HCL 4 MG TAB PO PRN ×2 (14:08→21:32)
[2017-07-02] MEDS ORDERED: ALTEPLASE RECOMBINANT 2 MG VIAL IV FLUSH ONE (17:15)
[2017-07-02] MEDS: ENOXAPARIN SODIUM 40 MG/0.4 ML SYRINGE SQ SCH (17:59)
[2017-07-02 18:00] VITALS: BP 116/65; PULSE 92; RESP 20; TEMP 98.1; O2SAT 97
[2017-07-02 20:00] VITALS: BP 126/60; PULSE 90; RESP 22; TEMP 98.4; O2SAT 98
[2017-07-02] MEDS: MIRTAZAPINE 15 MG TAB PO SCH (21:32)
[2017-07-03] MEDS: HYDROmorphone HCL 4 MG TAB PO PRN ×4 (03:49→23:58)
[2017-07-03 04:00] VITALS: BP 119/69; PULSE 84; RESP 18; TEMP 97.7; O2SAT 98
[2017-07-03 08:00] VITALS: BP 116/59; PULSE 80; RESP 18; TEMP 97.5; O2SAT 98
[2017-07-03] MEDS: LACTOBACILLUS ACIDOPHILUS TAB PO SCH ×2 (09:58→20:50)
[2017-07-03] MEDS: CYCLOBENZAPRINE HCL 10 MG TAB PO SCH ×3 (09:58→18:46)
[2017-07-03] MEDS: GABAPENTIN 400 MG CAP PO SCH ×3 (09:58→18:46)
[2017-07-03] MEDS: LEVOFLOXACIN 750 MG TAB PO SCH (09:58)
[2017-07-03] MEDS: CYPROHEPTADINE HCL 4 MG TAB PO SCH ×2 (09:58→20:50)
[2017-07-03] MEDS: PYRIDOXINE HCL 50 MG TAB PO SCH (09:58)
[2017-07-03] MEDS: DOCUSATE SODIUM 50 MG/SENNA 8.6 MG TAB PO SCH ×2 (09:58→20:50)
[2017-07-03] MEDS: FERROUS SULFATE 325 MG (65 MG ELEMENTAL IRON) TAB PO SCH (09:58)
[2017-07-03] MEDS: SULFAMETHOXAZOLE-TRIMETHOPRIM DS 800-160 MG TAB PO SCH ×2 (09:58→20:50)
[2017-07-03] MEDS: SODIUM HYPOCHLORITE 0.25% 500 ML BTL TOPICAL SCH ×2 (10:02→20:50)
[2017-07-03] MEDS: ZINC OXIDE 40% OINT 60 GM TUBE TOPICAL SCH ×2 (10:02→20:54)
[2017-07-03] MEDS: SODIUM CHLORIDE 0.9% FLUSH 10 ML FLUSH IV FLUSH SCH ×2 (10:06→20:54)
[2017-07-03 12:00] VITALS: BP 127/61; PULSE 78; RESP 18; TEMP 97.4; O2SAT 99
[2017-07-03 16:00] VITALS: BP 111/70; PULSE 90; RESP 18; TEMP 97.2; O2SAT 97
[2017-07-03] MEDS: ENOXAPARIN SODIUM 40 MG/0.4 ML SYRINGE SQ SCH (18:46)
[2017-07-03 19:48] VITALS: BP 114/73; PULSE 101; RESP 16; TEMP 97.7; O2SAT 98
[2017-07-03] MEDS: MIRTAZAPINE 15 MG TAB PO SCH (20:50)
--- NOTE | 2017-07-03 21:00 | HHI.PR ---
Subjective Remarks Patient seen this morning around 8 AM. He says that pain is controlled, but that he wants IV narcotics for dressing changes. He has refused CBC lab because he does not like needles. I discussed with him that I ordered this lab to see if she might have infection. Patient conveys understanding. Denies any chest pain or shortness of breath Objective Vital Signs Date Time Temp Pulse Resp B/P (MAP) Pulse Ox O2 Delivery O2 Flow Rate FiO2 07/03/17 16:00 97.2 90 18 111/70 (84) 97 07/03/17 12:00 97.4 78 18 127/61 (83) 99 07/03/17 08:00 97.5 80 18 116/59 (78) 98 07/03/17 08:00 96 Room Air 07/03/17 04:00 97.7 84 18 119/69 (86) 98 07/03/17 00:00 Room Air I/O 07/02/17 07/02/17 07/02/17 07/03/17 07/03/17 07/03/17 07:00 15:00 23:00 07:00 15:00 23:00 Intake Total 300 ml 960 ml 480 ml Output Total 800 ml 600 ml 750 ml 850 ml Balance -500 ml 360 ml -750 ml -370 ml Intake Oral 300 ml 960 ml 480 ml IV Total 0 ml Output Urine Total 800 ml 600 ml 750 ml 600 ml Stool Total 250 ml # Bowel Movements 0 1 Objective Remarks GENERAL: Patient lying in bed. Appears comfortable.no change on exam. SKIN: Warm and dry. HEAD: Normocephalic. EYES: No scleral icterus. No injection or drainage. NECK: Supple, trachea midline. No JVD or lymphadenopathy. CARDIOVASCULAR: Regular rate and rhythm without murmurs, gallops, or rubs. RESPIRATORY: Breath sounds equal bilaterally. No accessory muscle use. GASTROINTESTINAL: Abdomen soft, non-tender, nondistended. Ostomy without any surrounding erythema. No leakage. MUSCULOSKELETAL: No cyanosis, or edema. Peripheral perfusion intact. 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 again,No signs of infection. Sacral ulcer appears to be healing with no signs of infection. BACK: Nontender without obvious deformity. No CVA tenderness. A/P Assessment and Plan 07/03. Vitals continue stable. Patient refusing CBC. No reason to give IV Dilaudid. Patient says he will comply with dressing changes with by mouth Dilaudid. Continue wound care. 07/02. Patient seen and examined again. Patient requesting IV Dilaudid prior to admission changes. Examined decubitus ulcers which do not appear infected. Have ordered CBC to look for any indication of new or worsening infection. Continue by mouth antibiotics as ordered. 36-year-old male admitted secondary to worsening sacral decubitus pressure ulcer and complicated urinary tract infection with chronic suprapubic catheter. //Worsening sacral decubitus pressure ulcer //Paraplegia Paralysis increases risk for pressure ulcers Plastic surgery consulted Continue wound care Continue preventative management for that source 06/23 start IV zosyn, ID consult. 06/24 wound cultures are growing Pseudomonas species and MRSA. Blood cultures is growing 1 out of 2 bottles positive for streptococcus viridans. ID consulted. 06/26 appreciate ID recommendations. I will continue the patient on IV Zosyn and IV daptomycin. Further antibiotic adjustment as per ID. 06/28 As per ID - change current abx to teflaro, levaquine cont for 2 weeks stop on daptomycin dc fluconazole 06/29 Antibiotics as per ID. = 06/30. As per infectious disease. Continue Levaquin, Bactrim to complete treatment course. Follow-up with wound care and infectious disease as outpatient. //Complicated urinary tract infection //Chronic suprapubic catheter Budding yeast on UA Start diflucan Change suprapubic catheter Repeat UA after catheter change Follow urine culture 06/23 Continue Diflucan Likely UTI is secondary to a chronic suprapubic catheter. = 06/30. Continue antibiotics as per infectious disease. Appreciate assistance. //Chronic anemia Follow CBC //Colostomy Supportive care Nursing management //Hypotension - SP IV normal saline bolus. BP now stable. Continue to monitor vital signs. //History of DVT Discharge Planning Discharge on antibiotics as per infectious disease -Rehabilitation placement discussed with nursing, case management team at [facility]. Lyndon Wilkes MD Jul 03, 2017 21:00
[2017-07-03 23:50] VITALS: BP 105/60; PULSE 88; RESP 16; TEMP 97.6; O2SAT 96
[2017-07-04 04:45] VITALS: BP 104/63; PULSE 83; RESP 16; TEMP 97; O2SAT 96
[2017-07-04 08:04] VITALS: BP 118/69; PULSE 90; RESP 16; TEMP 97.1; O2SAT 98
[2017-07-04] MEDS: SODIUM CHLORIDE 0.9% FLUSH 10 ML FLUSH IV FLUSH SCH ×2 (09:00→22:27)
[2017-07-04] MEDS: DOCUSATE SODIUM 50 MG/SENNA 8.6 MG TAB PO SCH ×2 (09:00→21:25)
[2017-07-04] MEDS: CYCLOBENZAPRINE HCL 10 MG TAB PO SCH ×3 (09:15→19:18)
[2017-07-04] MEDS: FERROUS SULFATE 325 MG (65 MG ELEMENTAL IRON) TAB PO SCH (09:15)
[2017-07-04] MEDS: PYRIDOXINE HCL 50 MG TAB PO SCH (09:15)
[2017-07-04] MEDS: LEVOFLOXACIN 750 MG TAB PO SCH (09:15)
[2017-07-04] MEDS: CYPROHEPTADINE HCL 4 MG TAB PO SCH ×2 (09:15→21:25)
[2017-07-04] MEDS: SULFAMETHOXAZOLE-TRIMETHOPRIM DS 800-160 MG TAB PO SCH ×2 (09:15→21:25)
[2017-07-04] MEDS: LACTOBACILLUS ACIDOPHILUS TAB PO SCH ×2 (09:15→22:27)
[2017-07-04] MEDS: GABAPENTIN 400 MG CAP PO SCH ×3 (09:16→19:18)
[2017-07-04] MEDS: SODIUM HYPOCHLORITE 0.25% 500 ML BTL TOPICAL SCH ×2 (09:18→21:36)
[2017-07-04] MEDS: ZINC OXIDE 40% OINT 60 GM TUBE TOPICAL SCH ×2 (09:18→21:36)
[2017-07-04] MEDS: HYDROmorphone HCL 4 MG TAB PO PRN ×3 (09:21→22:24)
[2017-07-04 12:05] VITALS: BP 118/69; PULSE 90; RESP 16; TEMP 97.1; O2SAT 98
--- NOTE | 2017-07-04 12:10 | HHI.PR ---
Subjective Remarks Patient reports is doing okay. He has no new complaints. Still waiting for placement at a [facility] facility. Objective Vitals Vital Signs Date Time Temp Pulse Resp B/P (MAP) Pulse Ox O2 Delivery O2 Flow Rate FiO2 07/04/17 08:04 97.1 90 16 118/69 (85) 98 07/04/17 04:45 97.0 83 16 104/63 (77) 96 07/03/17 23:50 97.6 88 16 105/60 (75) 96 07/03/17 20:57 Room Air 07/03/17 19:48 97.7 101 16 114/73 (87) 98 07/03/17 16:00 97.2 90 18 111/70 (84) 97 I/O 07/03/17 07/03/17 07/03/17 07/04/17 07/04/17 07/04/17 07:00 15:00 23:00 07:00 15:00 23:00 Intake Total 480 ml 550 ml Output Total 750 ml 850 ml 400 ml Balance -750 ml -370 ml 150 ml Intake Oral 480 ml 550 ml Output Urine Total 750 ml 600 ml 400 ml Stool Total 250 ml # Bowel Movements 1 0 Imaging Last Impressions Chest X-Ray 06/22/17 1157 Signed Impressions: Service Date/Time: Thursday, June 22, 2017 12:28 - CONCLUSION: No acute disease. Wes Callejas Jr., MD Objective Remarks GENERAL: Paraplegic male, in no apparent distress. CARDIOVASCULAR: Normal rate and regular rhythm without murmurs, gallops, or rubs. RESPIRATORY: Good respiratory efforts. Breath sounds equal and clear to auscultation bilaterally. GASTROINTESTINAL: Abdomen soft, colostomy in place. Normal active bowel sounds MUSCULOSKELETAL: Extremities without cyanosis, or edema. NEURO: Alert & Oriented x4 to person, place, time, situation. Paraplegic. PSYCH: Appropriate mood and affect. A/P Problem List: (1) Decubitus ulcer ICD Code: L89.90 - Pressure ulcer of unspecified site, unspecified stage Status: Chronic (2) Neurogenic bladder ICD Code: N31.9 - Neuromuscular dysfunction of bladder, unspecified Status: Chronic (3) Paraplegia ICD Code: G82.20 - Paraplegia, unspecified Status: Chronic (4) UTI (urinary tract infection) ICD Code: N39.0 - Urinary tract infection Status: Resolved Assessment and Plan 36-year-old male admitted secondary to worsening sacral decubitus pressure ulcer and complicated urinary tract infection with chronic suprapubic catheter. Worsening sacral decubitus pressure ulcer Paraplegia Paralysis increases risk for pressure ulcers Plastic surgery consulted Continue wound care Continue preventative management for that source 06/23 start IV zosyn, ID consult. 06/24 wound cultures are growing Pseudomonas species and MRSA. Blood cultures is growing 1 out of 2 bottles positive for streptococcus viridans. ID consulted. 06/26 appreciate ID recommendations. I will continue the patient on IV Zosyn and IV daptomycin. Further antibiotic adjustment as per ID. 06/28 As per ID - change current abx to teflaro, levaquine cont for 2 weeks stop on daptomycin dc fluconazole As per infectious disease. Continue Levaquin, Bactrim to complete treatment course. Follow-up with wound care and infectious disease as outpatient. Complicated urinary tract infection Chronic suprapubic catheter Budding yeast on UA Suprapubic catheter changed. Follow urine culture Continue antimicrobials per infectious disease. Appreciate assistance. Chronic anemia Follow CBC periodically Colostomy Supportive care Nursing management Discharge Planning Discharge on antibiotics as per infectious disease once arrangements are made for a nursing facility. Bhavani Roth MD Jul 04, 2017 12:10
[2017-07-04 18:05] VITALS: BP 120/72; PULSE 104; RESP 16; TEMP 97.4; O2SAT 97
[2017-07-04] MEDS: ENOXAPARIN SODIUM 40 MG/0.4 ML SYRINGE SQ SCH (19:19)
[2017-07-04 20:22] VITALS: BP 118/63; PULSE 102; RESP 18; TEMP 98.2; O2SAT 96
[2017-07-04] MEDS ORDERED: SODIUM CHLORIDE 0.9% FLUSH 10 ML FLUSH IVF PRN ×2 (21:00)
[2017-07-04] MEDS ORDERED: ALTEPLASE RECOMBINANT 2 MG VIAL INTRACATH ONE (21:00)
[2017-07-04] MEDS: MIRTAZAPINE 15 MG TAB PO SCH (21:25)
[2017-07-05 00:08] VITALS: BP 116/60; PULSE 91; RESP 18; TEMP 97.1; O2SAT 96
[2017-07-05 03:52] VITALS: BP 114/64; PULSE 87; RESP 18; TEMP 98.1; O2SAT 97
[2017-07-05 08:00] VITALS: BP 108/57; PULSE 86; RESP 18; TEMP 97.8; O2SAT 96
[2017-07-05] MEDS: SODIUM CHLORIDE 0.9% FLUSH 10 ML FLUSH IVF SCH (09:00)
[2017-07-05] MEDS: DOCUSATE SODIUM 50 MG/SENNA 8.6 MG TAB PO SCH ×3 (09:00→21:00)
[2017-07-05] MEDS: PYRIDOXINE HCL 50 MG TAB PO SCH (09:05)
[2017-07-05] MEDS: GABAPENTIN 400 MG CAP PO SCH ×3 (09:06→18:23)
[2017-07-05] MEDS: LACTOBACILLUS ACIDOPHILUS TAB PO SCH ×2 (09:06→22:10)
[2017-07-05] MEDS: SULFAMETHOXAZOLE-TRIMETHOPRIM DS 800-160 MG TAB PO SCH ×2 (09:06→22:10)
[2017-07-05] MEDS: CYPROHEPTADINE HCL 4 MG TAB PO SCH ×2 (09:06→22:11)
[2017-07-05] MEDS: CYCLOBENZAPRINE HCL 10 MG TAB PO SCH ×3 (09:06→18:23)
[2017-07-05] MEDS: LEVOFLOXACIN 750 MG TAB PO SCH (09:06)
[2017-07-05] MEDS: FERROUS SULFATE 325 MG (65 MG ELEMENTAL IRON) TAB PO SCH (09:06)
[2017-07-05] MEDS: SODIUM CHLORIDE 0.9% FLUSH 10 ML FLUSH IV FLUSH SCH ×2 (09:07→21:00)
[2017-07-05] MEDS: SODIUM HYPOCHLORITE 0.25% 500 ML BTL TOPICAL SCH ×2 (09:09→21:00)
[2017-07-05] MEDS: ZINC OXIDE 40% OINT 60 GM TUBE TOPICAL SCH ×2 (09:10→21:00)
[2017-07-05 12:00] VITALS: BP 102/55; PULSE 82; RESP 16; TEMP 97.7; O2SAT 97
--- NOTE | 2017-07-05 13:33 | HHI.PR ---
Subjective Remarks Patient has no new complaints. Discussed with physical therapist. He may benefit from Roho cushion. Objective Vitals Vital Signs Date Time Temp Pulse Resp B/P (MAP) Pulse Ox O2 Delivery O2 Flow Rate FiO2 07/05/17 08:00 Room Air 07/05/17 08:00 97.8 86 18 108/57 (74) 96 07/05/17 03:52 98.1 87 18 114/64 (81) 97 07/05/17 00:08 97.1 91 18 116/60 (78) 96 07/04/17 21:37 Room Air 07/04/17 20:22 98.2 102 18 118/63 (81) 96 07/04/17 18:05 97.4 104 16 120/72 (88) 97 I/O 07/04/17 07/04/17 07/04/17 07/05/17 07/05/17 07/05/17 07:00 15:00 23:00 07:00 15:00 23:00 Intake Total 550 ml 520 ml 480 ml Output Total 400 ml 800 ml 800 ml Balance 150 ml -280 ml -320 ml Intake Oral 550 ml 520 ml 480 ml Output Urine Total 400 ml 800 ml 800 ml # Bowel Movements 0 0 0 Objective Remarks GENERAL: Paraplegic male, in no apparent distress. CARDIOVASCULAR: Normal rate and regular rhythm without murmurs, gallops, or rubs. RESPIRATORY: Good respiratory efforts. Breath sounds equal and clear to auscultation bilaterally. GASTROINTESTINAL: Abdomen soft, colostomy in place. Normal active bowel sounds MUSCULOSKELETAL: Extremities without cyanosis, or edema. NEURO: Alert & Oriented x4 to person, place, time, situation. Paraplegic. PSYCH: Appropriate mood and affect. A/P Problem List: (1) Decubitus ulcer ICD Code: L89.90 - Pressure ulcer of unspecified site, unspecified stage Status: Chronic (2) Neurogenic bladder ICD Code: N31.9 - Neuromuscular dysfunction of bladder, unspecified Status: Chronic (3) Paraplegia ICD Code: G82.20 - Paraplegia, unspecified Status: Chronic (4) UTI (urinary tract infection) ICD Code: N39.0 - Urinary tract infection Status: Resolved Assessment and Plan 36-year-old male admitted secondary to worsening sacral decubitus pressure ulcer and complicated urinary tract infection with chronic suprapubic catheter. Worsening sacral decubitus pressure ulcer Paraplegia Paralysis increases risk for pressure ulcers Plastic surgery consulted Continue wound care Continue preventative management for that source 06/23 start IV zosyn, ID consult. 06/24 wound cultures are growing Pseudomonas species and MRSA. Blood cultures is growing 1 out of 2 bottles positive for streptococcus viridans. ID consulted. 06/26 appreciate ID recommendations. I will continue the patient on IV Zosyn and IV daptomycin. Further antibiotic adjustment as per ID. 06/28 As per ID - change current abx to teflaro, levaquine cont for 2 weeks stop on daptomycin dc fluconazole As per infectious disease. Continue Levaquin, Bactrim to complete treatment course. Follow-up with wound care and infectious disease as outpatient. Shiraz coffman ordered Complicated urinary tract infection Chronic suprapubic catheter Budding yeast on UA Suprapubic catheter changed. Follow urine culture Continue antimicrobials per infectious disease. Appreciate assistance. Chronic anemia Follow CBC periodically Colostomy Supportive care Nursing management Discharge Planning Discharge on antibiotics as per infectious disease once arrangements are made for a nursing facility. Bhavani Roth MD Jul 05, 2017 13:33
[2017-07-05] MEDS: HYDROmorphone HCL 4 MG TAB PO PRN ×2 (14:39→22:11)
[2017-07-05 16:00] VITALS: BP 124/68; PULSE 96; RESP 16; TEMP 97.8; O2SAT 98
[2017-07-05] MEDS: ENOXAPARIN SODIUM 40 MG/0.4 ML SYRINGE SQ SCH (18:24)
[2017-07-05 20:00] VITALS: BP 108/61; PULSE 100; RESP 20; TEMP 98.5; O2SAT 98
[2017-07-05] MEDS: MIRTAZAPINE 15 MG TAB PO SCH (22:10)
[2017-07-06] VITALS: BP 114/65; PULSE 87; RESP 18; TEMP 98.1; O2SAT 97
[2017-07-06] MEDS: HYDROmorphone HCL 4 MG TAB PO PRN ×3 (04:29→19:14)
[2017-07-06 08:15] VITALS: BP 115/64; PULSE 86; RESP 18; TEMP 97.8; O2SAT 98
[2017-07-06] MEDS: FERROUS SULFATE 325 MG (65 MG ELEMENTAL IRON) TAB PO SCH (09:46)
[2017-07-06] MEDS: CYCLOBENZAPRINE HCL 10 MG TAB PO SCH ×3 (09:46→17:29)
[2017-07-06] MEDS: LACTOBACILLUS ACIDOPHILUS TAB PO SCH ×2 (09:46→22:08)
[2017-07-06] MEDS: SULFAMETHOXAZOLE-TRIMETHOPRIM DS 800-160 MG TAB PO SCH ×2 (09:46→22:08)
[2017-07-06] MEDS: SODIUM CHLORIDE 0.9% FLUSH 10 ML FLUSH IVF SCH (09:46)
[2017-07-06] MEDS: SODIUM CHLORIDE 0.9% FLUSH 10 ML FLUSH IV FLUSH SCH ×2 (09:46→22:09)
[2017-07-06] MEDS: SODIUM HYPOCHLORITE 0.25% 500 ML BTL TOPICAL SCH ×2 (09:47→22:09)
[2017-07-06] MEDS: CYPROHEPTADINE HCL 4 MG TAB PO SCH ×2 (09:47→22:08)
[2017-07-06] MEDS: GABAPENTIN 400 MG CAP PO SCH ×3 (09:47→17:29)
[2017-07-06] MEDS: PYRIDOXINE HCL 50 MG TAB PO SCH (09:47)
[2017-07-06] MEDS: LEVOFLOXACIN 750 MG TAB PO SCH (09:47)
[2017-07-06] MEDS: DOCUSATE SODIUM 50 MG/SENNA 8.6 MG TAB PO SCH ×2 (09:47→21:00)
[2017-07-06] MEDS: ZINC OXIDE 40% OINT 60 GM TUBE TOPICAL SCH ×2 (09:47→22:09)
[2017-07-06 12:03] VITALS: BP 122/69; PULSE 101; RESP 18; TEMP 98.4; O2SAT 97
--- NOTE | 2017-07-06 12:47 | HHI.PR ---
Subjective Remarks Patient is requesting IV pain medication for dressing changes. No other complaints. Objective Vitals Vital Signs Date Time Temp Pulse Resp B/P (MAP) Pulse Ox O2 Delivery O2 Flow Rate FiO2 07/06/17 12:03 98.4 101 18 122/69 (86) 97 07/06/17 08:15 97.8 86 18 115/64 (81) 98 07/06/17 05:39 18 07/06/17 00:00 98.1 87 18 114/65 (81) 97 07/05/17 22:10 Room Air 07/05/17 20:00 98.5 100 20 108/61 (77) 98 07/05/17 16:00 97.8 96 16 124/68 (86) 98 I/O 07/05/17 07/05/17 07/05/17 07/06/17 07/06/17 07/06/17 07:00 15:00 23:00 07:00 15:00 23:00 Intake Total 480 ml 240 ml 480 ml Output Total 800 ml 200 ml Balance -320 ml 40 ml 480 ml Intake Oral 480 ml 240 ml 480 ml Output Urine Total 800 ml 200 ml # Bowel Movements 0 Objective Remarks GENERAL: Paraplegic male, in no apparent distress. CARDIOVASCULAR: Normal rate and regular rhythm without murmurs, gallops, or rubs. RESPIRATORY: Good respiratory efforts. Breath sounds equal and clear to auscultation bilaterally. GASTROINTESTINAL: Abdomen soft, colostomy in place. Normal active bowel sounds MUSCULOSKELETAL: Extremities without cyanosis, or edema. NEURO: Alert & Oriented x4 to person, place, time, situation. Paraplegic. PSYCH: Appropriate mood and affect. A/P Problem List: (1) Decubitus ulcer ICD Code: L89.90 - Pressure ulcer of unspecified site, unspecified stage Status: Chronic (2) Neurogenic bladder ICD Code: N31.9 - Neuromuscular dysfunction of bladder, unspecified Status: Chronic (3) Paraplegia ICD Code: G82.20 - Paraplegia, unspecified Status: Chronic (4) UTI (urinary tract infection) ICD Code: N39.0 - Urinary tract infection Status: Resolved Assessment and Plan 36-year-old male admitted secondary to worsening sacral decubitus pressure ulcer and complicated urinary tract infection with chronic suprapubic catheter. Worsening sacral decubitus pressure ulcer Paraplegia Paralysis increases risk for pressure ulcers Plastic surgery consulted Continue wound care Continue preventative management for that source 06/23 start IV zosyn, ID consult. 06/24 wound cultures are growing Pseudomonas species and MRSA. Blood cultures is growing 1 out of 2 bottles positive for streptococcus viridans. ID consulted. 06/26 appreciate ID recommendations. I will continue the patient on IV Zosyn and IV daptomycin. Further antibiotic adjustment as per ID. 06/28 As per ID - change current abx to teflaro, levaquine cont for 2 weeks stop on daptomycin dc fluconazole As per infectious disease. Continue Levaquin, Bactrim to complete treatment course. Follow-up with wound care and infectious disease as outpatient. Shiraz coffman ordered IV Toradol ordered for dressing changes. Complicated urinary tract infection Chronic suprapubic catheter Budding yeast on UA Suprapubic catheter changed. Follow urine culture Continue antimicrobials per infectious disease. Appreciate assistance. Chronic anemia Follow CBC periodically Colostomy Supportive care Nursing management Discharge Planning Discharge on antibiotics as per infectious disease once arrangements are made for a nursing facility. Bhavani Roth MD Jul 06, 2017 12:47
[2017-07-06] MEDS: KETOROLAC TROMETHAMINE 30 MG/ML (IVP) VIAL IV PUSH PRN (15:15)
[2017-07-06 16:31] VITALS: BP 111/64; PULSE 91; RESP 18; TEMP 98.3; O2SAT 97
[2017-07-06] MEDS: ENOXAPARIN SODIUM 40 MG/0.4 ML SYRINGE SQ SCH (17:29)
[2017-07-06 20:00] VITALS: BP 118/68; PULSE 98; RESP 16; TEMP 98.5; O2SAT 98
[2017-07-06] MEDS: MIRTAZAPINE 15 MG TAB PO SCH (22:08)
[2017-07-07] VITALS: BP 107/53; PULSE 86; RESP 16; TEMP 98.5; O2SAT 97
[2017-07-07 04:00] VITALS: BP 111/3; PULSE 88; RESP 20; TEMP 97.5; O2SAT 97
[2017-07-07] MEDS: KETOROLAC TROMETHAMINE 30 MG/ML (IVP) VIAL IV PUSH PRN ×3 (04:33→23:03)
[2017-07-07 08:00] VITALS: BP 105/56; PULSE 84; RESP 19; TEMP 98.1; O2SAT 97
[2017-07-07] MEDS: DOCUSATE SODIUM 50 MG/SENNA 8.6 MG TAB PO SCH ×2 (09:00→20:46)
[2017-07-07] MEDS: SULFAMETHOXAZOLE-TRIMETHOPRIM DS 800-160 MG TAB PO SCH ×2 (09:22→20:47)
[2017-07-07] MEDS: GABAPENTIN 400 MG CAP PO SCH ×3 (09:23→19:04)
[2017-07-07] MEDS: CYPROHEPTADINE HCL 4 MG TAB PO SCH ×2 (09:23→20:46)
[2017-07-07] MEDS: FERROUS SULFATE 325 MG (65 MG ELEMENTAL IRON) TAB PO SCH (09:23)
[2017-07-07] MEDS: LACTOBACILLUS ACIDOPHILUS TAB PO SCH ×2 (09:23→20:47)
[2017-07-07] MEDS: PYRIDOXINE HCL 50 MG TAB PO SCH (09:23)
[2017-07-07] MEDS: LEVOFLOXACIN 750 MG TAB PO SCH (09:23)
[2017-07-07] MEDS: CYCLOBENZAPRINE HCL 10 MG TAB PO SCH ×3 (09:24→19:04)
[2017-07-07] MEDS: HYDROmorphone HCL 4 MG TAB PO PRN ×2 (09:24→19:05)
[2017-07-07] MEDS: SODIUM CHLORIDE 0.9% FLUSH 10 ML FLUSH IV FLUSH SCH ×2 (09:24→20:47)
[2017-07-07] MEDS: ZINC OXIDE 40% OINT 60 GM TUBE TOPICAL SCH ×2 (09:26→23:04)
[2017-07-07] MEDS: SODIUM HYPOCHLORITE 0.25% 500 ML BTL TOPICAL SCH ×2 (09:27→23:04)
[2017-07-07] MEDS: SODIUM CHLORIDE 0.9% FLUSH 10 ML FLUSH IVF SCH (09:27)
[2017-07-07 12:00] VITALS: BP 113/56; PULSE 84; RESP 19; TEMP 98.5; O2SAT 97
--- NOTE | 2017-07-07 13:55 | HHI.PR ---
Subjective Remarks States he is doing ok. No new issues. Objective Vitals Vital Signs Date Time Temp Pulse Resp B/P (MAP) Pulse Ox O2 Delivery O2 Flow Rate FiO2 07/07/17 12:00 98.5 84 19 113/56 (75) 97 07/07/17 08:00 98.1 84 19 105/56 (72) 97 07/07/17 06:14 18 07/07/17 04:00 97.5 88 20 111/3 (39) 97 07/07/17 00:00 98.5 86 16 107/53 (71) 97 07/06/17 22:10 Room Air 07/06/17 20:00 98.5 98 16 118/68 (85) 98 07/06/17 16:31 98.3 91 18 111/64 (80) 97 I/O 07/06/17 07/06/17 07/06/17 07/07/17 07/07/17 07/07/17 07:00 15:00 23:00 07:00 15:00 23:00 Intake Total 240 ml 480 ml 480 ml Output Total 200 ml 250 ml 650 ml Balance 40 ml 230 ml -170 ml Intake Oral 240 ml 480 ml 480 ml Output Urine Total 200 ml 250 ml 550 ml Stool Total 100 ml Objective Remarks GENERAL: Paraplegic male, in no apparent distress. CARDIOVASCULAR: Normal rate and regular rhythm without murmurs, gallops, or rubs. RESPIRATORY: Good respiratory efforts. Breath sounds equal and clear to auscultation bilaterally. GASTROINTESTINAL: Abdomen soft, colostomy in place. Normal active bowel sounds MUSCULOSKELETAL: Extremities without cyanosis, or edema. NEURO: Alert & Oriented x4 to person, place, time, situation. Paraplegic. PSYCH: Appropriate mood and affect. A/P Problem List: (1) Decubitus ulcer ICD Code: L89.90 - Pressure ulcer of unspecified site, unspecified stage Status: Chronic (2) Neurogenic bladder ICD Code: N31.9 - Neuromuscular dysfunction of bladder, unspecified Status: Chronic (3) Paraplegia ICD Code: G82.20 - Paraplegia, unspecified Status: Chronic (4) UTI (urinary tract infection) ICD Code: N39.0 - Urinary tract infection Status: Resolved Assessment and Plan 36-year-old male admitted secondary to worsening sacral decubitus pressure ulcer and complicated urinary tract infection with chronic suprapubic catheter. Worsening sacral decubitus pressure ulcer Paraplegia Paralysis increases risk for pressure ulcers Plastic surgery consulted Continue wound care Continue preventative management for that source 06/23 start IV zosyn, ID consult. 06/24 wound cultures are growing Pseudomonas species and MRSA. Blood cultures is growing 1 out of 2 bottles positive for streptococcus viridans. ID consulted. 06/26 appreciate ID recommendations. I will continue the patient on IV Zosyn and IV daptomycin. Further antibiotic adjustment as per ID. 06/28 As per ID - change current abx to teflaro, levaquine cont for 2 weeks stop on daptomycin dc fluconazole As per infectious disease. Continue Levaquin, Bactrim to complete treatment course. Follow-up with wound care and infectious disease as outpatient. Shiraz coffman ordered IV Toradol PRN for dressing changes. Continue current treatment Complicated urinary tract infection Chronic suprapubic catheter Budding yeast on UA Suprapubic catheter changed. Follow urine culture Continue antimicrobials per infectious disease. Appreciate assistance. Chronic anemia Follow CBC periodically Colostomy Supportive care Nursing management Discharge Planning Discharge on antibiotics as per infectious disease once arrangements are made for a nursing facility. Bhavani Roth MD Jul 07, 2017 13:55
[2017-07-07 16:00] VITALS: BP_SYST 117; BP_SYST 132; BP_DIAS 59; BP_DIAS 61; PULSE 84; RESP 19; TEMP 97.8; O2SAT 98
[2017-07-07] MEDS: ENOXAPARIN SODIUM 40 MG/0.4 ML SYRINGE SQ SCH (19:05)
[2017-07-07 20:00] VITALS: BP 114/64; PULSE 101; RESP 17; TEMP 97.8; O2SAT 98
[2017-07-07] MEDS: MIRTAZAPINE 15 MG TAB PO SCH (20:47)
[2017-07-07] MEDS: SODIUM CHLORIDE 0.9% FLUSH 10 ML FLUSH IV FLUSH PRN (23:03)
[2017-07-08] VITALS: BP 111/57; PULSE 89; RESP 17; TEMP 97.7; O2SAT 97
[2017-07-08 04:00] VITALS: BP 127/60; PULSE 86; RESP 17; TEMP 97.7; O2SAT 98
[2017-07-08 08:55] VITALS: BP 113/59; PULSE 85; RESP 20; TEMP 97.7; O2SAT 97
[2017-07-08] MEDS: DOCUSATE SODIUM 50 MG/SENNA 8.6 MG TAB PO SCH ×2 (09:00→21:00)
[2017-07-08] MEDS: SODIUM CHLORIDE 0.9% FLUSH 10 ML FLUSH IVF SCH (09:00)
[2017-07-08] MEDS: SODIUM CHLORIDE 0.9% FLUSH 10 ML FLUSH IV FLUSH SCH ×2 (09:19→21:02)
[2017-07-08] MEDS: CYPROHEPTADINE HCL 4 MG TAB PO SCH ×2 (09:19→21:01)
[2017-07-08] MEDS: PYRIDOXINE HCL 50 MG TAB PO SCH (09:20)
[2017-07-08] MEDS: CYCLOBENZAPRINE HCL 10 MG TAB PO SCH ×3 (09:20→18:44)
[2017-07-08] MEDS: GABAPENTIN 400 MG CAP PO SCH ×3 (09:20→18:44)
[2017-07-08] MEDS: LACTOBACILLUS ACIDOPHILUS TAB PO SCH ×2 (09:20→21:01)
[2017-07-08] MEDS: HYDROmorphone HCL 4 MG TAB PO PRN ×2 (09:20→18:44)
[2017-07-08] MEDS: LEVOFLOXACIN 750 MG TAB PO SCH (09:20)
[2017-07-08] MEDS: SULFAMETHOXAZOLE-TRIMETHOPRIM DS 800-160 MG TAB PO SCH ×2 (09:20→21:01)
[2017-07-08] MEDS: FERROUS SULFATE 325 MG (65 MG ELEMENTAL IRON) TAB PO SCH (09:20)
[2017-07-08] MEDS: SODIUM HYPOCHLORITE 0.25% 500 ML BTL TOPICAL SCH (09:21)
[2017-07-08] MEDS: ZINC OXIDE 40% OINT 60 GM TUBE TOPICAL SCH (09:21)
[2017-07-08 12:01] VITALS: BP 105/58; PULSE 87; RESP 20; TEMP 97.7; O2SAT 97
[2017-07-08] MEDS: KETOROLAC TROMETHAMINE 30 MG/ML (IVP) VIAL IV PUSH PRN (14:12)
--- NOTE | 2017-07-08 14:51 | HHI.PR ---
Subjective Remarks Patient has no complaint. No change in clinical status Objective Vitals Vital Signs Date Time Temp Pulse Resp B/P (MAP) Pulse Ox O2 Delivery O2 Flow Rate FiO2 07/08/17 12:01 97.7 87 20 105/58 (74) 97 07/08/17 08:55 97.7 85 20 113/59 (77) 97 07/08/17 04:00 97.7 86 17 127/60 (82) 98 07/08/17 00:00 97.7 89 17 111/57 (75) 97 07/07/17 20:00 97.8 101 17 114/64 (81) 98 07/07/17 20:00 Room Air 07/07/17 16:00 97.8 84 19 117/59 (78) 98 I/O 07/07/17 07/07/17 07/07/17 07/08/17 07/08/17 07/08/17 07:00 15:00 23:00 07:00 15:00 23:00 Intake Total 480 ml 950 ml 940 ml Output Total 650 ml 300 ml 1000 ml 375 ml Balance -170 ml -300 ml -50 ml 565 ml Intake Oral 480 ml 950 ml 940 ml Output Urine Total 550 ml 300 ml 1000 ml 375 ml Stool Total 100 ml # Bowel Movements 0 1 Objective Remarks GENERAL: Paraplegic male, in no apparent distress. CARDIOVASCULAR: Normal rate and regular rhythm without murmurs, gallops, or rubs. RESPIRATORY: Nonlabored breathing. Breath sounds equal and clear to auscultation bilaterally. GASTROINTESTINAL: Abdomen soft, colostomy in place. Normal active bowel sounds MUSCULOSKELETAL: Extremities without cyanosis, or edema. NEURO: Alert & Oriented x4 to person, place, time, situation. Paraplegic. PSYCH: Appropriate mood and affect. A/P Problem List: (1) Decubitus ulcer ICD Code: L89.90 - Pressure ulcer of unspecified site, unspecified stage Status: Chronic (2) Neurogenic bladder ICD Code: N31.9 - Neuromuscular dysfunction of bladder, unspecified Status: Chronic (3) Paraplegia ICD Code: G82.20 - Paraplegia, unspecified Status: Chronic (4) UTI (urinary tract infection) ICD Code: N39.0 - Urinary tract infection Status: Resolved Assessment and Plan 36-year-old male admitted secondary to worsening sacral decubitus pressure ulcer and complicated urinary tract infection with chronic suprapubic catheter. Worsening sacral decubitus pressure ulcer Paraplegia Paralysis increases risk for pressure ulcers Plastic surgery consulted Continue wound care Continue preventative management for that source 06/23 start IV zosyn, ID consult. 06/24 wound cultures are growing Pseudomonas species and MRSA. Blood cultures is growing 1 out of 2 bottles positive for streptococcus viridans. ID consulted. 06/26 appreciate ID recommendations. I will continue the patient on IV Zosyn and IV daptomycin. Further antibiotic adjustment as per ID. 06/28 As per ID - change current abx to teflaro, levaquine cont for 2 weeks stop on daptomycin dc fluconazole As per infectious disease. Continue Levaquin, Bactrim to complete treatment course. Follow-up with wound care and infectious disease as outpatient. Shiraz coffman ordered IV Toradol PRN for dressing changes. Continue current management Complicated urinary tract infection Chronic suprapubic catheter Budding yeast on UA Suprapubic catheter changed. Follow urine culture Continue antimicrobials per infectious disease. Appreciate assistance. Chronic anemia Follow CBC periodically Colostomy Supportive care Nursing management Discharge Planning Discharge on antibiotics as per infectious disease once arrangements are made for a nursing facility. Bhavani Roth MD Jul 08, 2017 14:50
[2017-07-08 16:02] VITALS: BP 116/64; PULSE 96; RESP 20; TEMP 98.4; O2SAT 97
[2017-07-08] MEDS: ENOXAPARIN SODIUM 40 MG/0.4 ML SYRINGE SQ SCH (18:44)
[2017-07-08 20:00] VITALS: BP 113/63; PULSE 91; RESP 20; TEMP 98.1; O2SAT 95
[2017-07-08] MEDS: MIRTAZAPINE 15 MG TAB PO SCH (21:01)
[2017-07-09] VITALS: BP_SYST 109; BP_SYST 132; BP_DIAS 64; BP_DIAS 67; PULSE 100; PULSE 85; RESP 18; RESP 20; TEMP 98.3; TEMP 98.4; O2SAT 95
[2017-07-09] MEDS: KETOROLAC TROMETHAMINE 30 MG/ML (IVP) VIAL IV PUSH PRN (00:49)
[2017-07-09] MEDS: ZINC OXIDE 40% OINT 60 GM TUBE TOPICAL SCH ×3 (00:52→21:08)
[2017-07-09] MEDS: SODIUM HYPOCHLORITE 0.25% 500 ML BTL TOPICAL SCH ×3 (00:52→21:08)
[2017-07-09 08:00] VITALS: BP 105/59; PULSE 80; RESP 20; TEMP 98; O2SAT 96
[2017-07-09] MEDS: LACTOBACILLUS ACIDOPHILUS TAB PO SCH ×2 (09:00→21:06)
[2017-07-09] MEDS: DOCUSATE SODIUM 50 MG/SENNA 8.6 MG TAB PO SCH ×2 (09:00→21:00)
[2017-07-09] MEDS: LEVOFLOXACIN 750 MG TAB PO SCH (09:37)
[2017-07-09] MEDS: PYRIDOXINE HCL 50 MG TAB PO SCH (09:37)
[2017-07-09] MEDS: FERROUS SULFATE 325 MG (65 MG ELEMENTAL IRON) TAB PO SCH (09:38)
[2017-07-09] MEDS: CYCLOBENZAPRINE HCL 10 MG TAB PO SCH ×3 (09:38→17:57)
[2017-07-09] MEDS: CYPROHEPTADINE HCL 4 MG TAB PO SCH ×2 (09:38→21:06)
[2017-07-09] MEDS: GABAPENTIN 400 MG CAP PO SCH ×3 (09:38→17:57)
[2017-07-09] MEDS: SULFAMETHOXAZOLE-TRIMETHOPRIM DS 800-160 MG TAB PO SCH ×2 (09:38→21:06)
[2017-07-09] MEDS: SODIUM CHLORIDE 0.9% FLUSH 10 ML FLUSH IV FLUSH SCH ×2 (09:39→21:07)
[2017-07-09] MEDS: SODIUM CHLORIDE 0.9% FLUSH 10 ML FLUSH IVF SCH (09:40)
[2017-07-09 12:00] VITALS: BP 110/66; PULSE 78; RESP 20; TEMP 98.2; O2SAT 95
[2017-07-09] MEDS: HYDROmorphone HCL 4 MG TAB PO PRN ×2 (13:02→21:07)
--- NOTE | 2017-07-09 14:04 | HHI.PR ---
Subjective Remarks Patient has no complaints today. States he is doing okay. Objective Vitals Vital Signs Date Time Temp Pulse Resp B/P (MAP) Pulse Ox O2 Delivery O2 Flow Rate FiO2 07/09/17 12:00 98.2 78 20 110/66 (81) 95 07/09/17 10:30 Room Air 07/09/17 08:00 98.0 80 20 105/59 (74) 96 07/09/17 00:00 98.3 85 20 109/67 (81) 95 07/09/17 00:00 Room Air 07/08/17 20:00 Room Air 07/08/17 20:00 98.1 91 20 113/63 (80) 95 07/08/17 16:02 98.4 96 20 116/64 (81) 97 07/08/17 16:00 Room Air I/O 07/08/17 07/08/17 07/08/17 07/09/17 07/09/17 07/09/17 07:00 15:00 23:00 07:00 15:00 23:00 Intake Total 950 ml 940 ml 480 ml Output Total 1000 ml 375 ml 750 ml Balance -50 ml 565 ml -270 ml Intake Oral 950 ml 940 ml 480 ml Output Urine Total 1000 ml 375 ml 750 ml # Bowel Movements 0 1 0 Objective Remarks GENERAL: Paraplegic male, in no apparent distress. CARDIOVASCULAR: Normal rate and regular rhythm without murmurs, gallops, or rubs. RESPIRATORY: Nonlabored breathing. Breath sounds equal and clear to auscultation bilaterally. GASTROINTESTINAL: Abdomen soft, colostomy in place. Normal active bowel sounds MUSCULOSKELETAL: Extremities without cyanosis, or edema. NEURO: Alert & Oriented x4 to person, place, time, situation. Paraplegic. PSYCH: Appropriate mood and affect. A/P Problem List: (1) Decubitus ulcer ICD Code: L89.90 - Pressure ulcer of unspecified site, unspecified stage Status: Chronic (2) Neurogenic bladder ICD Code: N31.9 - Neuromuscular dysfunction of bladder, unspecified Status: Chronic (3) Paraplegia ICD Code: G82.20 - Paraplegia, unspecified Status: Chronic (4) UTI (urinary tract infection) ICD Code: N39.0 - Urinary tract infection Status: Resolved Assessment and Plan 36-year-old male admitted secondary to worsening sacral decubitus pressure ulcer and complicated urinary tract infection with chronic suprapubic catheter. Worsening sacral decubitus pressure ulcer Paraplegia Paralysis increases risk for pressure ulcers Plastic surgery consulted Continue wound care Continue preventative management for that source 06/23 start IV zosyn, ID consult. 06/24 wound cultures are growing Pseudomonas species and MRSA. Blood cultures is growing 1 out of 2 bottles positive for streptococcus viridans. ID consulted. 06/26 appreciate ID recommendations. I will continue the patient on IV Zosyn and IV daptomycin. Further antibiotic adjustment as per ID. 06/28 As per ID - change current abx to teflaro, levaquine cont for 2 weeks stop on daptomycin dc fluconazole As per infectious disease. Continue Levaquin, Bactrim to complete treatment course. Follow-up with wound care and infectious disease as outpatient. Shiraz coffman ordered IV Toradol PRN for dressing changes. 07/09/17: Continue current management. Complicated urinary tract infection Chronic suprapubic catheter Budding yeast on UA Suprapubic catheter changed. Follow urine culture Continue antimicrobials per infectious disease. Appreciate assistance. Chronic anemia Follow CBC periodically Colostomy Supportive care Nursing management Discharge Planning Discharge on antibiotics as per infectious disease once arrangements are made for a nursing facility. Bhavani Roth MD Jul 09, 2017 14:04
[2017-07-09 16:00] VITALS: BP 118/70; PULSE 86; RESP 20; TEMP 98.2; O2SAT 97
[2017-07-09] MEDS: ENOXAPARIN SODIUM 40 MG/0.4 ML SYRINGE SQ SCH (17:57)
[2017-07-09] MEDS: MIRTAZAPINE 15 MG TAB PO SCH (21:06)
[2017-07-10] VITALS: BP 116/70; PULSE 98; RESP 18; TEMP 98.3; O2SAT 95
[2017-07-10 08:00] VITALS: BP 115/68; PULSE 89; RESP 20; TEMP 98; O2SAT 97
[2017-07-10] MEDS: SODIUM HYPOCHLORITE 0.25% 500 ML BTL TOPICAL SCH ×2 (09:00→21:00)
[2017-07-10] MEDS: ZINC OXIDE 40% OINT 60 GM TUBE TOPICAL SCH ×2 (09:00→21:00)
[2017-07-10] MEDS: PYRIDOXINE HCL 50 MG TAB PO SCH (09:00)
[2017-07-10] MEDS: DOCUSATE SODIUM 50 MG/SENNA 8.6 MG TAB PO SCH ×2 (09:00→21:00)
[2017-07-10] MEDS: SULFAMETHOXAZOLE-TRIMETHOPRIM DS 800-160 MG TAB PO SCH ×2 (09:08→21:11)
[2017-07-10] MEDS: LEVOFLOXACIN 750 MG TAB PO SCH (09:08)
[2017-07-10] MEDS: CYCLOBENZAPRINE HCL 10 MG TAB PO SCH ×3 (09:08→16:34)
[2017-07-10] MEDS: FERROUS SULFATE 325 MG (65 MG ELEMENTAL IRON) TAB PO SCH (09:08)
[2017-07-10] MEDS: LACTOBACILLUS ACIDOPHILUS TAB PO SCH ×2 (09:08→21:13)
[2017-07-10] MEDS: CYPROHEPTADINE HCL 4 MG TAB PO SCH ×2 (09:08→21:12)
[2017-07-10] MEDS: GABAPENTIN 400 MG CAP PO SCH ×3 (09:08→16:34)
[2017-07-10] MEDS: SODIUM CHLORIDE 0.9% FLUSH 10 ML FLUSH IVF SCH (09:09)
[2017-07-10] MEDS: SODIUM CHLORIDE 0.9% FLUSH 10 ML FLUSH IV FLUSH SCH ×2 (09:09→21:00)
[2017-07-10] MEDS: KETOROLAC TROMETHAMINE 30 MG/ML (IVP) VIAL IV PUSH PRN ×2 (09:10→22:34)
[2017-07-10 12:16] VITALS: BP 112/56; PULSE 100; RESP 19; TEMP 98.3; O2SAT 97
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
--- NOTE | 2017-07-10 15:21 | PD.WCN.NOT ---
Wound Consult Description: Follow up for pressure injuries to L trochanter, sacral and posterior scrotal wounds Communicated with: ARA HER, Nathan BULLOCK keaau, and Doctor Ambrocio Recommendation: Please continue current wound care. Will follow up with patient at a later date if still admitted Additional Information: Patient was seen on for follow up of wounds to L trochanter, sacral and posterior scrotal wounds. Patient is known to inpatient wound care from previous admission. Patient seen with Doctor Ambrocio, television script writer and Quique HER. Nahtan BULLOCK keaau changed dressing already. Patient able to turn self to R side for wound assessment. Peeled back adhesive foam dressing in place to L trochanter to reveal wound that measures ~6cm x ~3cm x slough.Periwound presents with scar tissue. Wound margins present with epibole from 8 to 3 o' clock. Wound bed presents with ~60% yellow adherent slough and ~40% pink tissue. Wound has minimal sero-sanguinous drainage that is without odor.applied dakin's soaked gauze packing and adhesive foam back in place Peeled back dry dressing in place on sacrum to reveal small open wound measuring ~0.7cm x ~0.5cm x ~0.4cm. Wound bed presents with 100% clean pink tissue, no active drainage or odor is noted from wound.Re-applied dry dressing back in place to sacrum. Peeled back ABD pad covering scrotal area to reveal open wound that measures ~7 cm x ~10cm x ~1cm. Wound bed presents with 100% pale red granulation tissue. Wound has moderate sero-sanguinous drainage that is without odor. Reapplied ABD pad packing in wound bed secured with mesh underwear. Sujey Varner [facility] Jul 10, 2017 15:21
[2017-07-10 16:00] VITALS: BP 116/64; PULSE 87; RESP 20; TEMP 98.8; O2SAT 96
[2017-07-10] MEDS: ENOXAPARIN SODIUM 40 MG/0.4 ML SYRINGE SQ SCH (16:34)
--- NOTE | 2017-07-10 17:38 | HHI.PR ---
Subjective Remarks Patient requesting to discontinue vital signs at night so he can rest. No other issues. Objective Vitals Vital Signs Date Time Temp Pulse Resp B/P (MAP) Pulse Ox O2 Delivery O2 Flow Rate FiO2 07/10/17 16:00 98.8 87 20 116/64 (81) 96 07/10/17 12:16 98.3 100 19 112/56 (74) 97 07/10/17 08:00 98.0 89 20 115/68 (84) 97 07/10/17 07:42 Room Air 07/10/17 00:00 98.3 98 18 116/70 (85) 95 07/09/17 20:00 Room Air I/O 07/09/17 07/09/17 07/09/17 07/10/17 07/10/17 07/10/17 07:00 15:00 23:00 07:00 15:00 23:00 Intake Total 480 ml 360 ml 720 ml Output Total 750 ml 600 ml 200 ml Balance -270 ml 360 ml -600 ml 720 ml -200 ml Intake Oral 480 ml 360 ml 720 ml Output Urine Total 750 ml 600 ml Stool Total 200 ml # Bowel Movements 0 Objective Remarks GENERAL: Paraplegic male, in no apparent distress. CARDIOVASCULAR: Normal rate and regular rhythm without murmurs, gallops, or rubs. RESPIRATORY: Nonlabored breathing. Breath sounds equal and clear to auscultation bilaterally. GASTROINTESTINAL: Abdomen soft, colostomy in place. Normal active bowel sounds MUSCULOSKELETAL: Extremities without cyanosis, or edema. NEURO: Alert & Oriented x4 to person, place, time, situation. Paraplegic. PSYCH: Appropriate mood and affect. A/P Problem List: (1) Decubitus ulcer ICD Code: L89.90 - Pressure ulcer of unspecified site, unspecified stage Status: Chronic (2) Neurogenic bladder ICD Code: N31.9 - Neuromuscular dysfunction of bladder, unspecified Status: Chronic (3) Paraplegia ICD Code: G82.20 - Paraplegia, unspecified Status: Chronic (4) UTI (urinary tract infection) ICD Code: N39.0 - Urinary tract infection Status: Resolved Assessment and Plan 36-year-old male admitted secondary to worsening sacral decubitus pressure ulcer and complicated urinary tract infection with chronic suprapubic catheter. Worsening sacral decubitus pressure ulcer Paraplegia Paralysis increases risk for pressure ulcers Plastic surgery consulted Continue wound care Continue preventative management for that source 06/23 start IV zosyn, ID consult. 06/24 wound cultures are growing Pseudomonas species and MRSA. Blood cultures is growing 1 out of 2 bottles positive for streptococcus viridans. ID consulted. 06/26 appreciate ID recommendations. I will continue the patient on IV Zosyn and IV daptomycin. Further antibiotic adjustment as per ID. 06/28 As per ID - change current abx to teflaro, levaquine cont for 2 weeks stop on daptomycin dc fluconazole As per infectious disease. Continue Levaquin, Bactrim to complete treatment course. Follow-up with wound care and infectious disease as outpatient. Shiraz coffman ordered IV Toradol PRN for dressing changes. 07/10/17: Continue current management. Okay to discontinue vital signs at night as he has been stable. Complicated urinary tract infection Chronic suprapubic catheter Budding yeast on UA Suprapubic catheter changed. Follow urine culture Continue antimicrobials per infectious disease. Appreciate assistance. Chronic anemia Follow CBC periodically Colostomy Supportive care Nursing management Discharge Planning Discharge on antibiotics as per infectious disease once arrangements are made for a nursing facility. Bhavani Roth MD Jul 10, 2017 17:38
[2017-07-10 20:00] VITALS: BP 120/58; PULSE 94; RESP 18; TEMP 98.3; O2SAT 96
[2017-07-10] MEDS: MIRTAZAPINE 15 MG TAB PO SCH (21:12)
[2017-07-11 08:00] VITALS: BP 104/63; PULSE 79; RESP 20; TEMP 98.2; O2SAT 97
--- NOTE | 2017-07-11 08:24 | HHI.PR ---
Subjective Remarks in no acute distress. no new complaints. afebrile. denies pain. Objective Vitals Vital Signs Date Time Temp Pulse Resp B/P (MAP) Pulse Ox O2 Delivery O2 Flow Rate FiO2 07/10/17 22:00 Room Air 07/10/17 20:00 98.3 94 18 120/58 (78) 96 07/10/17 16:00 98.8 87 20 116/64 (81) 96 07/10/17 12:16 98.3 100 19 112/56 (74) 97 I/O 07/10/17 07/10/17 07/10/17 07/11/17 07/11/17 07/11/17 07:00 15:00 23:00 07:00 15:00 23:00 Intake Total 720 ml Output Total 550 ml 950 ml Balance 720 ml -550 ml -950 ml Intake Oral 720 ml Output Urine Total 350 ml 950 ml Stool Total 200 ml Imaging Last Impressions Chest X-Ray 06/22/17 1157 Signed Impressions: Service Date/Time: Thursday, June 22, 2017 12:28 - CONCLUSION: No acute disease. Wes Callejas Jr., MD Objective Remarks GENERAL: This is a well-nourished, well-developed patient, in no apparent distress. CARDIOVASCULAR: Regular rate and regular rhythm without murmurs, gallops, or rubs. RESPIRATORY: Clear to auscultation. Breath sounds equal bilaterally. No wheezes , rales, or rhonchi. GASTROINTESTINAL: Abdomen soft, non-tender, nondistended. Normal, active bowel sounds MUSCULOSKELETAL: Extremities without clubbing, cyanosis, or edema. NEURO: Alert & Oriented x4 to person, place, time, situation. Medications and IVs Inpatient Medications Alteplase, Recombinant (Cathflo Activase Inj) 2 mg ONCE ONCE INTRACATH Last administered on 07/04/17 21:35; Start 07/04/17 at 21:00; Stop 07/04/17 at 21 :11; Status DC Ceftaroline Fosamil 600 mg/ Sodium Chloride 100 ml @ 100 mls/hr Q12H IV Last administered on 06/29/17 09:12; Start 06/28/17 at 21:00; Stop 06/29/17 at 19:11 ; Status DC Cyclobenzaprine HCl (Flexeril) 10 mg TID PO Last administered on 07/10/17 16: 34; Start 06/25/17 at 09:00 Cyproheptadine HCl (Periactin) 4 mg BID PO Last administered on 07/10/17 21: 12; Start 06/24/17 at 21:00 Daptomycin 320 mg/ Sodium Chloride 100 ml @ 200 mls/hr Q24H IV Last administered on 06/28/17 11:50; Start 06/26/17 at 11:00; Stop 06/28/17 at 19:48 ; Status DC Enoxaparin Sodium (Lovenox Inj) 40 mg Q24H SQ Last administered on 07/10/17 16:34; Start 06/22/17 at 17:00 Ferrous Sulfate (Ferrous Sulfate) 325 mg DAILY PO Last administered on 09:08; Start 06/25/17 at 09:00 Fluconazole/ Sodium Chloride 50 ml @ 50 mls/hr Q24H IV Last administered on 19:35; Start 06/22/17 at 17:00; Stop 06/28/17 at 19:48; Status DC Gabapentin (Neurontin) 800 mg TID PO Last administered on 07/10/17 16:34; Start 06/25/17 at 09:00 Heparin Sodium (Porcine) (Heparin Central Flush) UNSCH PRN IV FLUSH SEE PROTOCOL; Start 07/04/17 at 21:00 Hydromorphone HCl (Dilaudid Pf Inj) 1 mg Q3H PRN IV PUSH Pain 6-10;if unable to take PO; Start 06/22/17 at 17:00; Stop 06/24/17 at 18:06; Status DC Hydromorphone HCl (Dilaudid) 4 mg Q6H PRN PO pain 510 Last administered on 21:07; Start 06/24/17 at 18:15 Ketorolac Tromethamine (Toradol Inj) 30 mg DAILY PRN IV PUSH dressing change Last administered on 07/10/17 22:34; Start 07/06/17 at 13:00; Stop 07/11/17 at 12:59 Lactobacillus Acidophilus (Lactinex) 1 tab BID PO Last administered on 21:13; Start 06/24/17 at 21:00 Lactulose (Lactulose Liq) 30 ml DAILY PRN PO SEVERE CONSITIPATION; Start at 17:00 Levofloxacin (Levaquin) 750 mg DAILY PO Last administered on 07/10/17 09:08; Start 06/28/17 at 20:30 Magnesium Hydroxide (Milk Of Magnesia Liq) 30 ml Q12H PRN PO Mild constipation ; Start 06/22/17 at 17:00 Mirtazapine (Remeron) 15 mg HS PO Last administered on 07/10/17 21:12; Start 06/24/17 at 21:00 Naloxone HCl (Narcan Inj) 0.4 mg UNSCH PRN IV PUSH SEE LABEL COMMENTS; Start 06/22/17 at 17:00 Olanzapine (ZyPREXA) 15 mg HS PO Last administered on 07/10/17 21:13; Start 06/24/17 at 21:00 Ondansetron HCl (Zofran Inj) 4 mg Q6H PRN IVP NAUSEA OR VOMITING; Start at 17:00 Oxycodone/ Acetaminophen (Percocet 5-325 Mg) 1 tab Q4H PRN PO PAIN SCALE 1 TO 4; Start 06/22/17 at 17:00 Oxycodone/ Acetaminophen (Percocet 10-325 Mg) 1 tab Q4H PRN PO PAIN SCALE 6 TO 10 Last administered on 06/24/17 13:37; Start 06/22/17 at 17:00; Stop 06/24/17 at 18:06; Status DC Piperacillin Sod/ Tazobactam Sod 100 ml @ 200 mls/hr Q8H IV Last administered on 06/28/17 19:35; Start 06/23/17 at 17:00; Stop 06/28/17 at 19:48; Status DC Potassium Chloride (KCl) 30 meq ONCE ONCE PO Last administered on 06/24/17 11 :41; Start 06/24/17 at 10:45; Stop 06/24/17 at 10:46; Status DC Pyridoxine HCl (Vitamin B6) 50 mg DAILY PO Last administered on 07/10/17 09: 00; Start 06/25/17 at 09:00 Senna/Docusate Sodium (Whitney-Colace) 1 tab BID PO Last administered on 21:25; Start 06/22/17 at 21:00 Sennosides (Senokot) 17.2 mg Q12H PRN PO Moderate constipation; Start 06/22/17 at 17:00 Sodium Hypochlorite (Dakin'S 0.25% Soln) 500 ml BID TOPICAL Last administered on 07/10/17 21:00; Start 06/23/17 at 21:00 Sodium Chloride (NS Flush) UNSCH PRN IVF SEE PROTOCOL; Start 07/04/17 at 21: 00 Trimethoprim/ Sulfamethoxazole (Bactrim Ds 800-160 Mg) 1 tab Q12HR PO Last administered on 07/10/17 21:11; Start 06/29/17 at 21:00 Zinc Oxide (Desitin 40% Oint) 1 applic BID TOPICAL Last administered on 21:00; Start 06/23/17 at 21:00 A/P Problem List: (1) Decubitus ulcer ICD Code: L89.90 - Pressure ulcer of unspecified site, unspecified stage Status: Chronic (2) Neurogenic bladder ICD Code: N31.9 - Neuromuscular dysfunction of bladder, unspecified Status: Chronic (3) Paraplegia ICD Code: G82.20 - Paraplegia, unspecified Status: Chronic (4) UTI (urinary tract infection) ICD Code: N39.0 - Urinary tract infection Status: Resolved Assessment and Plan 36-year-old male admitted secondary to worsening sacral decubitus pressure ulcer and complicated urinary tract infection with chronic suprapubic catheter. As per ID - change current abx to teflaro, levaquine cont for 2 weeks stop on daptomycin dc fluconazole As per infectious disease. Continue Levaquin, Bactrim to complete treatment course. Follow-up with wound care and infectious disease as outpatient. Shiraz coffman ordered IV Toradol PRN for dressing changes. Complicated urinary tract infection Chronic suprapubic catheter Budding yeast on UA Suprapubic catheter changed. Chronic anemia Follow CBC periodically Colostomy Supportive care Nursing management Discharge Planning dc planning to SNF in progress. Reddy Vo MD Jul 11, 2017 08:24
[2017-07-11] MEDS: SULFAMETHOXAZOLE-TRIMETHOPRIM DS 800-160 MG TAB PO SCH ×2 (09:38→23:21)
[2017-07-11] MEDS: CYCLOBENZAPRINE HCL 10 MG TAB PO SCH ×3 (09:38→17:39)
[2017-07-11] MEDS: FERROUS SULFATE 325 MG (65 MG ELEMENTAL IRON) TAB PO SCH (09:38)
[2017-07-11] MEDS: CYPROHEPTADINE HCL 4 MG TAB PO SCH ×2 (09:38→23:24)
[2017-07-11] MEDS: LEVOFLOXACIN 750 MG TAB PO SCH (09:38)
[2017-07-11] MEDS: GABAPENTIN 400 MG CAP PO SCH ×3 (09:38→17:38)
[2017-07-11] MEDS: LACTOBACILLUS ACIDOPHILUS TAB PO SCH ×2 (09:38→23:22)
[2017-07-11] MEDS: DOCUSATE SODIUM 50 MG/SENNA 8.6 MG TAB PO SCH ×2 (09:38→23:23)
[2017-07-11] MEDS: SODIUM CHLORIDE 0.9% FLUSH 10 ML FLUSH IVF SCH (09:39)
[2017-07-11] MEDS: SODIUM CHLORIDE 0.9% FLUSH 10 ML FLUSH IV FLUSH SCH ×2 (09:39→23:21)
[2017-07-11] MEDS: SODIUM HYPOCHLORITE 0.25% 500 ML BTL TOPICAL SCH ×2 (09:39→23:25)
[2017-07-11] MEDS: ZINC OXIDE 40% OINT 60 GM TUBE TOPICAL SCH ×2 (09:40→23:25)
[2017-07-11] MEDS: PYRIDOXINE HCL 50 MG TAB PO SCH (09:52)
[2017-07-11] MEDS: HYDROmorphone HCL 4 MG TAB PO PRN ×3 (09:52→23:26)
[2017-07-11 12:00] VITALS: BP 115/55; PULSE 99; RESP 20; TEMP 98.2; O2SAT 97
[2017-07-11] MEDS: KETOROLAC TROMETHAMINE 30 MG/ML (IVP) VIAL IV PUSH PRN (12:30)
[2017-07-11 16:00] VITALS: BP 125/74; PULSE 92; RESP 20; TEMP 98.4; O2SAT 97
[2017-07-11] MEDS: ENOXAPARIN SODIUM 40 MG/0.4 ML SYRINGE SQ SCH (17:38)
[2017-07-11 20:00] VITALS: BP 115/65; PULSE 103; RESP 16; TEMP 98.4; O2SAT 97
[2017-07-11] MEDS: MIRTAZAPINE 15 MG TAB PO SCH (23:24)
[2017-07-12 07:19] LABS: AUTOMATED NEUTROPHIL # 3.7 TH/MM3 (1.8-7.7); BASOPHIL % 0.5 % (0.0-2.0); EOSINOPHIL # 0.2 TH/MM3 (0-0.4); EOSINOPHIL % 2.9 % (0.0-4.0); HEMATOCRIT 33.5 % (39.0-51.0); HEMOGLOBIN 11.2 GM/DL (13.0-17.0); LYMPH % 47.6 % (9.0-44.0); LYMPHOCYTE # 4.1 TH/MM3 (1.0-4.8); MEAN CELL VOLUME 81.9 FL (80.0-100.0); MEAN CORPUSCULAR HEMOGLOBIN 27.3 PG (27.0-34.0); MEAN CORPUSCULAR HGB CONC 33.3 % (32.0-36.0); MEAN PLATELET VOLUME 6.1 FL (7.0-11.0); MONO % 5.6 % (0.0-8.0); MONOCYTE # 0.5 TH/MM3 (0-0.9); NEUT % 43.4 % (16.0-70.0); PLATELET COUNT 577 TH/MM3 (150-450); RED BLOOD COUNT 4.09 MIL/MM3 (4.50-5.90); RED CELL DISTRIBUTION WIDTH 18.3 % (11.6-17.2); WHITE BLOOD COUNT 8.6 TH/MM3 (4.0-11.0)
[2017-07-12 07:35] LABS: BICARBONATE 25.9 MEQ/L (21.0-32.0); CALCIUM 8.2 MG/DL (8.5-10.1); CREATININE 0.69 MG/DL (0.60-1.30)
[2017-07-12 08:00] VITALS: BP 116/56; PULSE 91; RESP 20; TEMP 97.6; O2SAT 96
[2017-07-12] MEDS: DOCUSATE SODIUM 50 MG/SENNA 8.6 MG TAB PO SCH ×2 (09:00→20:37)
[2017-07-12] MEDS: PYRIDOXINE HCL 50 MG TAB PO SCH (09:00)
[2017-07-12] MEDS: SODIUM CHLORIDE 0.9% FLUSH 10 ML FLUSH IVF SCH (09:00)
[2017-07-12] MEDS: SODIUM CHLORIDE 0.9% FLUSH 10 ML FLUSH IV FLUSH SCH ×2 (09:00→20:39)
[2017-07-12] MEDS: CYPROHEPTADINE HCL 4 MG TAB PO SCH ×2 (09:13→20:36)
[2017-07-12] MEDS: HYDROmorphone HCL 4 MG TAB PO PRN ×2 (09:13→20:36)
[2017-07-12] MEDS: LEVOFLOXACIN 750 MG TAB PO SCH (09:14)
[2017-07-12] MEDS: LACTOBACILLUS ACIDOPHILUS TAB PO SCH ×2 (09:14→20:36)
[2017-07-12] MEDS: CYCLOBENZAPRINE HCL 10 MG TAB PO SCH ×3 (09:14→17:17)
[2017-07-12] MEDS: SULFAMETHOXAZOLE-TRIMETHOPRIM DS 800-160 MG TAB PO SCH ×2 (09:14→20:36)
[2017-07-12] MEDS: FERROUS SULFATE 325 MG (65 MG ELEMENTAL IRON) TAB PO SCH (09:14)
[2017-07-12] MEDS: GABAPENTIN 400 MG CAP PO SCH ×3 (09:14→17:18)
[2017-07-12] MEDS: SODIUM HYPOCHLORITE 0.25% 500 ML BTL TOPICAL SCH ×2 (09:18→20:39)
[2017-07-12] MEDS: ZINC OXIDE 40% OINT 60 GM TUBE TOPICAL SCH ×2 (09:18→20:39)
--- NOTE | 2017-07-12 10:48 | HHI.PR ---
Subjective Remarks in no distress. resting comfortably. no new complaints. Objective Vitals Vital Signs Date Time Temp Pulse Resp B/P (MAP) Pulse Ox O2 Delivery O2 Flow Rate FiO2 07/12/17 08:00 97.6 91 20 116/56 (76) 96 07/11/17 22:00 Room Air 07/11/17 20:00 98.4 103 16 115/65 (82) 97 07/11/17 18:48 18 07/11/17 16:00 98.4 92 20 125/74 (91) 97 07/11/17 12:00 98.2 99 20 115/55 (75) 97 I/O 07/11/17 07/11/17 07/11/17 07/12/17 07/12/17 07/12/17 07:00 15:00 23:00 07:00 15:00 23:00 Intake Total 480 ml Output Total 950 ml 1500 ml 200 ml Balance -950 ml -1500 ml 280 ml Intake Oral 480 ml Output Urine Total 950 ml 1500 ml 200 ml # Bowel Movements 2 Result Diagram: 07/12/17 0630 07/12/17 0630 Imaging Last Impressions Chest X-Ray 06/22/17 1157 Signed Impressions: Service Date/Time: Thursday, June 22, 2017 12:28 - CONCLUSION: No acute disease. Wes Callejas Jr., MD Objective Remarks GENERAL: This is a well-nourished, well-developed patient, in no apparent distress. CARDIOVASCULAR: Regular rate and regular rhythm without murmurs, gallops, or rubs. RESPIRATORY: Clear to auscultation. Breath sounds equal bilaterally. No wheezes , rales, or rhonchi. GASTROINTESTINAL: Abdomen soft, non-tender, nondistended. Normal, active bowel sounds MUSCULOSKELETAL: Extremities without clubbing, cyanosis, or edema. NEURO: Alert & Oriented x4 to person, place, time, situation. Medications and IVs Inpatient Medications Alteplase, Recombinant (Cathflo Activase Inj) 2 mg ONCE ONCE INTRACATH Last administered on 07/04/17 21:35; Start 07/04/17 at 21:00; Stop 07/04/17 at 21 :11; Status DC Ceftaroline Fosamil 600 mg/ Sodium Chloride 100 ml @ 100 mls/hr Q12H IV Last administered on 06/29/17 09:12; Start 06/28/17 at 21:00; Stop 06/29/17 at 19:11 ; Status DC Cyclobenzaprine HCl (Flexeril) 10 mg TID PO Last administered on 07/12/17 09: 14; Start 06/25/17 at 09:00 Cyproheptadine HCl (Periactin) 4 mg BID PO Last administered on 07/12/17 09: 13; Start 06/24/17 at 21:00 Daptomycin 320 mg/ Sodium Chloride 100 ml @ 200 mls/hr Q24H IV Last administered on 06/28/17 11:50; Start 06/26/17 at 11:00; Stop 06/28/17 at 19:48 ; Status DC Enoxaparin Sodium (Lovenox Inj) 40 mg Q24H SQ Last administered on 07/11/17 17:38; Start 06/22/17 at 17:00 Ferrous Sulfate (Ferrous Sulfate) 325 mg DAILY PO Last administered on 09:14; Start 06/25/17 at 09:00 Fluconazole/ Sodium Chloride 50 ml @ 50 mls/hr Q24H IV Last administered on 19:35; Start 06/22/17 at 17:00; Stop 06/28/17 at 19:48; Status DC Gabapentin (Neurontin) 800 mg TID PO Last administered on 07/12/17 09:14; Start 06/25/17 at 09:00 Heparin Sodium (Porcine) (Heparin Central Flush) UNSCH PRN IV FLUSH SEE PROTOCOL; Start 07/04/17 at 21:00 Hydromorphone HCl (Dilaudid Pf Inj) 1 mg Q3H PRN IV PUSH Pain 6-10;if unable to take PO; Start 06/22/17 at 17:00; Stop 06/24/17 at 18:06; Status DC Hydromorphone HCl (Dilaudid) 4 mg Q6H PRN PO pain 510 Last administered on 09:13; Start 06/24/17 at 18:15 Ketorolac Tromethamine (Toradol Inj) 30 mg DAILY PRN IV PUSH dressing change Last administered on 07/11/17 12:30; Start 07/06/17 at 13:00; Stop 07/11/17 at 12:59; Status DC Lactobacillus Acidophilus (Lactinex) 1 tab BID PO Last administered on 09:14; Start 06/24/17 at 21:00 Lactulose (Lactulose Liq) 30 ml DAILY PRN PO SEVERE CONSITIPATION; Start at 17:00 Levofloxacin (Levaquin) 750 mg DAILY PO Last administered on 07/12/17 09:14; Start 06/28/17 at 20:30 Magnesium Hydroxide (Milk Of Magnesia Liq) 30 ml Q12H PRN PO Mild constipation ; Start 06/22/17 at 17:00 Mirtazapine (Remeron) 15 mg HS PO Last administered on 07/11/17 23:24; Start 06/24/17 at 21:00 Naloxone HCl (Narcan Inj) 0.4 mg UNSCH PRN IV PUSH SEE LABEL COMMENTS; Start 06/22/17 at 17:00 Olanzapine (ZyPREXA) 15 mg HS PO Last administered on 07/11/17 23:24; Start 06/24/17 at 21:00 Ondansetron HCl (Zofran Inj) 4 mg Q6H PRN IVP NAUSEA OR VOMITING; Start at 17:00 Oxycodone/ Acetaminophen (Percocet 5-325 Mg) 1 tab Q4H PRN PO PAIN SCALE 1 TO 4; Start 06/22/17 at 17:00 Oxycodone/ Acetaminophen (Percocet 10-325 Mg) 1 tab Q4H PRN PO PAIN SCALE 6 TO 10 Last administered on 06/24/17 13:37; Start 06/22/17 at 17:00; Stop 06/24/17 at 18:06; Status DC Piperacillin Sod/ Tazobactam Sod 100 ml @ 200 mls/hr Q8H IV Last administered on 06/28/17 19:35; Start 06/23/17 at 17:00; Stop 06/28/17 at 19:48; Status DC Potassium Chloride (KCl) 30 meq ONCE ONCE PO Last administered on 06/24/17 11 :41; Start 06/24/17 at 10:45; Stop 06/24/17 at 10:46; Status DC Pyridoxine HCl (Vitamin B6) 50 mg DAILY PO Last administered on 07/12/17 09: 00; Start 06/25/17 at 09:00 Senna/Docusate Sodium (Whitney-Colace) 1 tab BID PO Last administered on 23:23; Start 06/22/17 at 21:00 Sennosides (Senokot) 17.2 mg Q12H PRN PO Moderate constipation; Start 06/22/17 at 17:00 Sodium Hypochlorite (Dakin'S 0.25% Soln) 500 ml BID TOPICAL Last administered on 07/12/17 09:18; Start 06/23/17 at 21:00 Sodium Chloride (NS Flush) UNSCH PRN IVF SEE PROTOCOL; Start 07/04/17 at 21: 00 Trimethoprim/ Sulfamethoxazole (Bactrim Ds 800-160 Mg) 1 tab Q12HR PO Last administered on 07/12/17 09:14; Start 06/29/17 at 21:00 Zinc Oxide (Desitin 40% Oint) 1 applic BID TOPICAL Last administered on 09:18; Start 06/23/17 at 21:00 A/P Problem List: (1) Decubitus ulcer ICD Code: L89.90 - Pressure ulcer of unspecified site, unspecified stage Status: Chronic (2) Neurogenic bladder ICD Code: N31.9 - Neuromuscular dysfunction of bladder, unspecified Status: Chronic (3) Paraplegia ICD Code: G82.20 - Paraplegia, unspecified Status: Chronic (4) UTI (urinary tract infection) ICD Code: N39.0 - Urinary tract infection Status: Resolved Assessment and Plan 36-year-old male admitted secondary to worsening sacral decubitus pressure ulcer and complicated urinary tract infection with chronic suprapubic catheter. As per ID - change current abx to teflaro, levaquine cont for 2 weeks As per infectious disease. Continue Levaquin, Bactrim to complete treatment course. Follow-up with wound care and infectious disease as outpatient. Shiraz coffman ordered IV Toradol PRN for dressing changes. Complicated urinary tract infection Chronic suprapubic catheter Budding yeast on UA Suprapubic catheter changed. Chronic anemia Follow CBC periodically Colostomy Supportive care Nursing management Discharge Planning dc planning to SNF in progress. Reddy Vo MD Jul 12, 2017 10:48
[2017-07-12 12:00] VITALS: BP 124/72; PULSE 97; RESP 20; TEMP 97.6; O2SAT 95
[2017-07-12 16:00] VITALS: BP 114/65; PULSE 96; RESP 20; TEMP 97.9; O2SAT 96
[2017-07-12] MEDS ORDERED: KETOROLAC TROMETHAMINE 30 MG/ML (IVP) VIAL IV PUSH SCH (17:00)
[2017-07-12] MEDS: ENOXAPARIN SODIUM 40 MG/0.4 ML SYRINGE SQ SCH (17:18)
[2017-07-12] MEDS: MIRTAZAPINE 15 MG TAB PO SCH (20:36)
[2017-07-12 21:43] VITALS: BP 114/58; PULSE 98; RESP 16; TEMP 97.7; O2SAT 96
[2017-07-13 00:21] VITALS: BP 107/59; PULSE 91; RESP 20; TEMP 97.7; O2SAT 96
[2017-07-13 04:00] VITALS: BP 110/62; PULSE 87; RESP 20; TEMP 97.4; O2SAT 97
[2017-07-13 08:00] VITALS: BP 110/64; PULSE 94; RESP 20; TEMP 97.8; O2SAT 95
[2017-07-13] MEDS: SODIUM HYPOCHLORITE 0.25% 500 ML BTL TOPICAL SCH ×2 (09:00→21:33)
[2017-07-13] MEDS: SODIUM CHLORIDE 0.9% FLUSH 10 ML FLUSH IV FLUSH SCH ×2 (09:00→21:29)
[2017-07-13] MEDS: ZINC OXIDE 40% OINT 60 GM TUBE TOPICAL SCH ×2 (09:00→21:33)
[2017-07-13] MEDS: SODIUM CHLORIDE 0.9% FLUSH 10 ML FLUSH IVF SCH (09:00)
[2017-07-13] MEDS: LEVOFLOXACIN 750 MG TAB PO SCH (09:21)
[2017-07-13] MEDS: SULFAMETHOXAZOLE-TRIMETHOPRIM DS 800-160 MG TAB PO SCH ×2 (09:21→21:29)
[2017-07-13] MEDS: GABAPENTIN 400 MG CAP PO SCH ×3 (09:21→18:20)
[2017-07-13] MEDS: DOCUSATE SODIUM 50 MG/SENNA 8.6 MG TAB PO SCH ×2 (09:21→21:00)
[2017-07-13] MEDS: CYPROHEPTADINE HCL 4 MG TAB PO SCH ×2 (09:22→21:29)
[2017-07-13] MEDS: LACTOBACILLUS ACIDOPHILUS TAB PO SCH ×2 (09:22→21:29)
[2017-07-13] MEDS: PYRIDOXINE HCL 50 MG TAB PO SCH (09:22)
[2017-07-13] MEDS: CYCLOBENZAPRINE HCL 10 MG TAB PO SCH ×3 (09:22→18:20)
[2017-07-13] MEDS: FERROUS SULFATE 325 MG (65 MG ELEMENTAL IRON) TAB PO SCH (09:22)
--- NOTE | 2017-07-13 10:18 | HHI.PR ---
Subjective Remarks in no acute distress. pain is controlled. no new complaints. Objective Vitals Vital Signs Date Time Temp Pulse Resp B/P (MAP) Pulse Ox O2 Delivery O2 Flow Rate FiO2 07/13/17 04:00 97.4 87 20 110/62 (78) 97 07/13/17 04:00 Room Air 07/13/17 00:21 97.7 91 20 107/59 (75) 96 07/13/17 00:00 Room Air 07/12/17 21:43 97.7 98 16 114/58 (76) 96 07/12/17 20:00 Room Air 07/12/17 16:00 97.9 96 20 114/65 (81) 96 07/12/17 12:00 97.6 97 20 124/72 (89) 95 I/O 07/12/17 07/12/17 07/12/17 07/13/17 07/13/17 07/13/17 07:00 15:00 23:00 07:00 15:00 23:00 Intake Total 840 ml 480 ml Output Total 600 ml 550 ml Balance 240 ml -70 ml Intake Oral 840 ml 480 ml Output Urine Total 600 ml 550 ml # Bowel Movements 1 Result Diagram: 07/12/17 0630 07/12/17 0630 Imaging Last Impressions Chest X-Ray 06/22/17 1157 Signed Impressions: Service Date/Time: Thursday, June 22, 2017 12:28 - CONCLUSION: No acute disease. Wes Callejas Jr., MD Objective Remarks GENERAL: This is a well-nourished, well-developed patient, in no apparent distress. CARDIOVASCULAR: Regular rate and regular rhythm without murmurs, gallops, or rubs. RESPIRATORY: Clear to auscultation. Breath sounds equal bilaterally. No wheezes , rales, or rhonchi. GASTROINTESTINAL: Abdomen soft, non-tender, nondistended. Normal, active bowel sounds MUSCULOSKELETAL: Extremities without clubbing, cyanosis, or edema. NEURO: Alert & Oriented x4 to person, place, time, situation. Medications and IVs Inpatient Medications Alteplase, Recombinant (Cathflo Activase Inj) 2 mg ONCE ONCE INTRACATH Last administered on 07/04/17t 21:35; Start 07/04/17 at 21:00; Stop 07/04/17 at 21 :11; Status DC Ceftaroline Fosamil 600 mg/ Sodium Chloride 100 ml @ 100 mls/hr Q12H IV Last administered on 06/29/17 09:12; Start 06/28/17 at 21:00; Stop 06/29/17 at 19:11 ; Status DC Cyclobenzaprine HCl (Flexeril) 10 mg TID PO Last administered on 07/13/17 09: 22; Start 06/25/17 at 09:00 Cyproheptadine HCl (Periactin) 4 mg BID PO Last administered on 07/13/17 09: 22; Start 06/24/17 at 21:00 Daptomycin 320 mg/ Sodium Chloride 100 ml @ 200 mls/hr Q24H IV Last administered on 06/28/17 11:50; Start 06/26/17 at 11:00; Stop 06/28/17 at 19:48 ; Status DC Enoxaparin Sodium (Lovenox Inj) 40 mg Q24H SQ Last administered on 07/12/17 17:18; Start 06/22/17 at 17:00 Ferrous Sulfate (Ferrous Sulfate) 325 mg DAILY PO Last administered on 09:22; Start 06/25/17 at 09:00 Fluconazole/ Sodium Chloride 50 ml @ 50 mls/hr Q24H IV Last administered on 19:35; Start 06/22/17 at 17:00; Stop 06/28/17 at 19:48; Status DC Gabapentin (Neurontin) 800 mg TID PO Last administered on 07/13/17 09:21; Start 06/25/17 at 09:00 Heparin Sodium (Porcine) (Heparin Central Flush) UNSCH PRN IV FLUSH SEE PROTOCOL; Start 07/04/17 at 21:00 Hydromorphone HCl (Dilaudid Pf Inj) 1 mg Q3H PRN IV PUSH Pain 6-10;if unable to take PO; Start 06/22/17 at 17:00; Stop 06/24/17 at 18:06; Status DC Hydromorphone HCl (Dilaudid) 4 mg Q6H PRN PO pain 510 Last administered on 20:36; Start 06/24/17 at 18:15 Ketorolac Tromethamine (Toradol Inj) 30 mg UNSCH X1 IV PUSH Last administered on 07/12/17 17:16; Start 07/12/17 at 17:00; Stop 07/12/17 at 23:59; Status DC Lactobacillus Acidophilus (Lactinex) 1 tab BID PO Last administered on 09:22; Start 06/24/17 at 21:00 Lactulose (Lactulose Liq) 30 ml DAILY PRN PO SEVERE CONSITIPATION; Start at 17:00 Levofloxacin (Levaquin) 750 mg DAILY PO Last administered on 07/13/17 09:21; Start 06/28/17 at 20:30 Magnesium Hydroxide (Milk Of Magnesia Liq) 30 ml Q12H PRN PO Mild constipation ; Start 06/22/17 at 17:00 Mirtazapine (Remeron) 15 mg HS PO Last administered on 07/12/17 20:36; Start 06/24/17 at 21:00 Naloxone HCl (Narcan Inj) 0.4 mg UNSCH PRN IV PUSH SEE LABEL COMMENTS; Start 06/22/17 at 17:00 Olanzapine (ZyPREXA) 15 mg HS PO Last administered on 07/12/17 20:37; Start 06/24/17 at 21:00 Ondansetron HCl (Zofran Inj) 4 mg Q6H PRN IVP NAUSEA OR VOMITING; Start at 17:00 Oxycodone/ Acetaminophen (Percocet 5-325 Mg) 1 tab Q4H PRN PO PAIN SCALE 1 TO 4; Start 06/22/17 at 17:00 Oxycodone/ Acetaminophen (Percocet 10-325 Mg) 1 tab Q4H PRN PO PAIN SCALE 6 TO 10 Last administered on 06/24/17 13:37; Start 06/22/17 at 17:00; Stop 06/24/17 at 18:06; Status DC Piperacillin Sod/ Tazobactam Sod 100 ml @ 200 mls/hr Q8H IV Last administered on 06/28/17 19:35; Start 06/23/17 at 17:00; Stop 06/28/17 at 19:48; Status DC Potassium Chloride (KCl) 30 meq ONCE ONCE PO Last administered on 06/24/17 11 :41; Start 06/24/17 at 10:45; Stop 06/24/17 at 10:46; Status DC Pyridoxine HCl (Vitamin B6) 50 mg DAILY PO Last administered on 07/13/17 09: 22; Start 06/25/17 at 09:00 Senna/Docusate Sodium (Whitney-Colace) 1 tab BID PO Last administered on 09:21; Start 06/22/17 at 21:00 Sennosides (Senokot) 17.2 mg Q12H PRN PO Moderate constipation; Start 06/22/17 at 17:00 Sodium Hypochlorite (Dakin'S 0.25% Soln) 500 ml BID TOPICAL Last administered on 07/13/17 09:00; Start 06/23/17 at 21:00 Sodium Chloride (NS Flush) UNSCH PRN IVF SEE PROTOCOL; Start 07/04/17 at 21: 00 Trimethoprim/ Sulfamethoxazole (Bactrim Ds 800-160 Mg) 1 tab Q12HR PO Last administered on 07/13/17 09:21; Start 06/29/17 at 21:00 Zinc Oxide (Desitin 40% Oint) 1 applic BID TOPICAL Last administered on 09:00; Start 06/23/17 at 21:00 A/P Problem List: (1) Decubitus ulcer ICD Code: L89.90 - Pressure ulcer of unspecified site, unspecified stage Status: Chronic (2) Neurogenic bladder ICD Code: N31.9 - Neuromuscular dysfunction of bladder, unspecified Status: Chronic (3) Paraplegia ICD Code: G82.20 - Paraplegia, unspecified Status: Chronic (4) UTI (urinary tract infection) ICD Code: N39.0 - Urinary tract infection Status: Resolved Assessment and Plan 36-year-old male admitted secondary to worsening sacral decubitus pressure ulcer and complicated urinary tract infection with chronic suprapubic catheter. As per infectious disease. Continue Levaquin, Bactrim to complete treatment course; will dc antibiotics tomorrow. Follow-up with wound care and infectious disease as outpatient. Shiraz coffman ordered IV Morphine PRN for dressing changes. Complicated urinary tract infection Chronic suprapubic catheter Budding yeast on UA Suprapubic catheter changed. Chronic anemia Follow CBC periodically Colostomy Supportive care Nursing management Discharge Planning dc planning to SNF in progress. Reddy Vo MD Jul 13, 2017 10:18
[2017-07-13 12:00] VITALS: BP 119/69; PULSE 96; RESP 20; TEMP 97.8; O2SAT 96
[2017-07-13 16:00] VITALS: BP 113/64; PULSE 99; RESP 20; TEMP 98.2; O2SAT 96
[2017-07-13] MEDS: ENOXAPARIN SODIUM 40 MG/0.4 ML SYRINGE SQ SCH (18:20)
[2017-07-13] MEDS: MORPHINE SULFATE 2 MG/ML SYRINGE IV PUSH PRN (18:21)
[2017-07-13 20:00] VITALS: BP 109/71; PULSE 100; RESP 20; TEMP 98.3; O2SAT 95
[2017-07-13] MEDS: MIRTAZAPINE 15 MG TAB PO SCH (21:29)
[2017-07-14] VITALS: BP 117/68; PULSE 94; RESP 20; TEMP 98.1; O2SAT 96
[2017-07-14] MEDS: MORPHINE SULFATE 2 MG/ML SYRINGE IV PUSH PRN ×3 (06:19→22:01)
[2017-07-14 08:04] VITALS: BP 102/59; PULSE 104; RESP 18; TEMP 98.1; O2SAT 96
[2017-07-14] MEDS: SODIUM CHLORIDE 0.9% FLUSH 10 ML FLUSH IV FLUSH SCH ×2 (09:00→21:00)
[2017-07-14] MEDS: SODIUM CHLORIDE 0.9% FLUSH 10 ML FLUSH IVF SCH (10:06)
[2017-07-14] MEDS: SULFAMETHOXAZOLE-TRIMETHOPRIM DS 800-160 MG TAB PO SCH (10:06)
[2017-07-14] MEDS: FERROUS SULFATE 325 MG (65 MG ELEMENTAL IRON) TAB PO SCH (10:06)
[2017-07-14] MEDS: DOCUSATE SODIUM 50 MG/SENNA 8.6 MG TAB PO SCH ×2 (10:07→21:00)
[2017-07-14] MEDS: PYRIDOXINE HCL 50 MG TAB PO SCH (10:07)
[2017-07-14] MEDS: CYPROHEPTADINE HCL 4 MG TAB PO SCH ×2 (10:07→22:01)
[2017-07-14] MEDS: CYCLOBENZAPRINE HCL 10 MG TAB PO SCH ×3 (10:07→16:11)
[2017-07-14] MEDS: LACTOBACILLUS ACIDOPHILUS TAB PO SCH ×2 (10:07→22:02)
[2017-07-14] MEDS: GABAPENTIN 400 MG CAP PO SCH ×3 (10:07→16:11)
[2017-07-14] MEDS: SODIUM HYPOCHLORITE 0.25% 500 ML BTL TOPICAL SCH ×2 (10:11→22:01)
[2017-07-14] MEDS: ZINC OXIDE 40% OINT 60 GM TUBE TOPICAL SCH ×2 (10:11→21:00)
--- NOTE | 2017-07-14 10:48 | HHI.PR ---
Subjective Remarks in no acute distress. afebrile. pain is controlled. no new complaints. Objective Vitals Vital Signs Date Time Temp Pulse Resp B/P (MAP) Pulse Ox O2 Delivery O2 Flow Rate FiO2 07/14/17 08:04 98.1 104 18 102/59 (73) 96 07/14/17 00:00 98.1 94 20 117/68 (84) 96 07/13/17 20:00 98.3 100 20 109/71 (84) 95 07/13/17 16:00 98.2 99 20 113/64 (80) 96 07/13/17 13:15 Room Air 07/13/17 12:00 97.8 96 20 119/69 (86) 96 I/O 07/13/17 07/13/17 07/13/17 07/14/17 07/14/17 07/14/17 07:00 15:00 23:00 07:00 15:00 23:00 Intake Total 480 ml 480 ml 360 ml Output Total 550 ml 1325 ml 1000 ml Balance -70 ml -845 ml -640 ml Intake Oral 480 ml 480 ml 360 ml Output Urine Total 550 ml 1325 ml 1000 ml # Bowel Movements 1 Result Diagram: 07/12/17 0630 07/12/17 0630 Imaging Last Impressions Chest X-Ray 06/22/17 1157 Signed Impressions: Service Date/Time: Thursday, June 22, 2017 12:28 - CONCLUSION: No acute disease. Wes Callejas Jr., MD Objective Remarks GENERAL: This is a well-nourished, well-developed patient, in no apparent distress. CARDIOVASCULAR: Regular rate and regular rhythm without murmurs, gallops, or rubs. RESPIRATORY: Clear to auscultation. Breath sounds equal bilaterally. No wheezes , rales, or rhonchi. GASTROINTESTINAL: Abdomen soft, non-tender, nondistended. Normal, active bowel sounds MUSCULOSKELETAL: Extremities without clubbing, cyanosis, or edema. NEURO: Alert & Oriented x4 to person, place, time, situation. Medications and IVs Inpatient Medications Alteplase, Recombinant (Cathflo Activase Inj) 2 mg ONCE ONCE INTRACATH Last administered on 07/04/17t 21:35; Start 07/04/17 at 21:00; Stop 07/04/17 at 21 :11; Status DC Ceftaroline Fosamil 600 mg/ Sodium Chloride 100 ml @ 100 mls/hr Q12H IV Last administered on 06/29/17 09:12; Start 06/28/17 at 21:00; Stop 06/29/17 at 19:11 ; Status DC Cyclobenzaprine HCl (Flexeril) 10 mg TID PO Last administered on 07/14/17 10: 07; Start 06/25/17 at 09:00 Cyproheptadine HCl (Periactin) 4 mg BID PO Last administered on 07/14/17 10: 07; Start 06/24/17 at 21:00 Daptomycin 320 mg/ Sodium Chloride 100 ml @ 200 mls/hr Q24H IV Last administered on 06/28/17 11:50; Start 06/26/17 at 11:00; Stop 06/28/17 at 19:48 ; Status DC Enoxaparin Sodium (Lovenox Inj) 40 mg Q24H SQ Last administered on 07/13/17 18:20; Start 06/22/17 at 17:00 Ferrous Sulfate (Ferrous Sulfate) 325 mg DAILY PO Last administered on 10:06; Start 06/25/17 at 09:00 Fluconazole/ Sodium Chloride 50 ml @ 50 mls/hr Q24H IV Last administered on 19:35; Start 06/22/17 at 17:00; Stop 06/28/17 at 19:48; Status DC Gabapentin (Neurontin) 800 mg TID PO Last administered on 07/14/17 10:07; Start 06/25/17 at 09:00 Heparin Sodium (Porcine) (Heparin Central Flush) UNSCH PRN IV FLUSH SEE PROTOCOL; Start 07/04/17 at 21:00 Hydromorphone HCl (Dilaudid Pf Inj) 1 mg Q3H PRN IV PUSH Pain 6-10;if unable to take PO; Start 06/22/17 at 17:00; Stop 06/24/17 at 18:06; Status DC Hydromorphone HCl (Dilaudid) 4 mg Q6H PRN PO pain 510 Last administered on 20:36; Start 06/24/17 at 18:15 Ketorolac Tromethamine (Toradol Inj) 30 mg UNSCH X1 IV PUSH Last administered on 07/12/17 17:16; Start 07/12/17 at 17:00; Stop 07/12/17 at 23:59; Status DC Lactobacillus Acidophilus (Lactinex) 1 tab BID PO Last administered on 10:07; Start 06/24/17 at 21:00 Lactulose (Lactulose Liq) 30 ml DAILY PRN PO SEVERE CONSITIPATION; Start at 17:00 Levofloxacin (Levaquin) 750 mg DAILY PO Last administered on 07/13/17 09:21; Start 06/28/17 at 20:30; Stop 07/14/17 at 08:00; Status DC Magnesium Hydroxide (Milk Of Magnesia Liq) 30 ml Q12H PRN PO Mild constipation ; Start 06/22/17 at 17:00 Mirtazapine (Remeron) 15 mg HS PO Last administered on 07/13/17 21:29; Start 06/24/17 at 21:00 Morphine Sulfate (Morphine Inj) 2 mg DAILY PRN IV PUSH BEFORE DRESSING CHANGE. Last administered on 07/14/17 06:19; Start 07/13/17 at 11:00 Naloxone HCl (Narcan Inj) 0.4 mg UNSCH PRN IV PUSH SEE LABEL COMMENTS; Start 06/22/17 at 17:00 Olanzapine (ZyPREXA) 15 mg HS PO Last administered on 07/13/17 21:29; Start 06/24/17 at 21:00 Ondansetron HCl (Zofran Inj) 4 mg Q6H PRN IVP NAUSEA OR VOMITING; Start at 17:00 Oxycodone/ Acetaminophen (Percocet 5-325 Mg) 1 tab Q4H PRN PO PAIN SCALE 1 TO 4; Start 06/22/17 at 17:00 Oxycodone/ Acetaminophen (Percocet 10-325 Mg) 1 tab Q4H PRN PO PAIN SCALE 6 TO 10 Last administered on 06/24/17 13:37; Start 06/22/17 at 17:00; Stop 06/24/17 at 18:06; Status DC Piperacillin Sod/ Tazobactam Sod 100 ml @ 200 mls/hr Q8H IV Last administered on 06/28/17 19:35; Start 06/23/17 at 17:00; Stop 06/28/17 at 19:48; Status DC Potassium Chloride (KCl) 30 meq ONCE ONCE PO Last administered on 06/24/17 11 :41; Start 06/24/17 at 10:45; Stop 06/24/17 at 10:46; Status DC Pyridoxine HCl (Vitamin B6) 50 mg DAILY PO Last administered on 07/14/17 10: 07; Start 06/25/17 at 09:00 Senna/Docusate Sodium (Whitney-Colace) 1 tab BID PO Last administered on 10:07; Start 06/22/17 at 21:00 Sennosides (Senokot) 17.2 mg Q12H PRN PO Moderate constipation; Start 06/22/17 at 17:00 Sodium Hypochlorite (Dakin'S 0.25% Soln) 500 ml BID TOPICAL Last administered on 07/14/17 10:11; Start 06/23/17 at 21:00 Sodium Chloride (NS Flush) UNSCH PRN IVF SEE PROTOCOL; Start 07/04/17 at 21: 00 Trimethoprim/ Sulfamethoxazole (Bactrim Ds 800-160 Mg) 1 tab Q12HR PO Last administered on 07/14/17 10:06; Start 06/29/17 at 21:00; Stop 07/14/17 at 09: 00; Status DC Zinc Oxide (Desitin 40% Oint) 1 applic BID TOPICAL Last administered on 10:11; Start 06/23/17 at 21:00 A/P Problem List: (1) Decubitus ulcer ICD Code: L89.90 - Pressure ulcer of unspecified site, unspecified stage Status: Chronic (2) Neurogenic bladder ICD Code: N31.9 - Neuromuscular dysfunction of bladder, unspecified Status: Chronic (3) Paraplegia ICD Code: G82.20 - Paraplegia, unspecified Status: Chronic (4) UTI (urinary tract infection) ICD Code: N39.0 - Urinary tract infection Status: Resolved Assessment and Plan 36-year-old male admitted secondary to worsening sacral decubitus pressure ulcer and complicated urinary tract infection with chronic suprapubic catheter. treated with antibiotics per ID recommendations. Follow-up with wound care and infectious disease as outpatient. Shiraz coffman ordered IV Morphine PRN for dressing changes. Complicated urinary tract infection Chronic suprapubic catheter Budding yeast on UA Suprapubic catheter changed. Chronic anemia Follow CBC periodically Colostomy Supportive care Nursing management Discharge Planning dc planning to SNF in progress. Reddy Vo MD Jul 14, 2017 10:48
[2017-07-14 12:04] VITALS: BP 104/60; PULSE 100; RESP 18; TEMP 98; O2SAT 97
[2017-07-14 16:04] VITALS: BP 125/65; PULSE 102; RESP 18; TEMP 98; O2SAT 97
[2017-07-14] MEDS: ENOXAPARIN SODIUM 40 MG/0.4 ML SYRINGE SQ SCH (16:15)
[2017-07-14 20:00] VITALS: BP 119/65; PULSE 92; RESP 18; TEMP 98.6; O2SAT 98
[2017-07-14] MEDS: MIRTAZAPINE 15 MG TAB PO SCH (22:02)
[2017-07-15 08:00] VITALS: BP 105/57; PULSE 81; RESP 18; TEMP 97.9; O2SAT 99
[2017-07-15] MEDS: SODIUM CHLORIDE 0.9% FLUSH 10 ML FLUSH IV FLUSH SCH ×2 (09:00→22:24)
[2017-07-15] MEDS: DOCUSATE SODIUM 50 MG/SENNA 8.6 MG TAB PO SCH ×2 (09:26→22:24)
[2017-07-15] MEDS: FERROUS SULFATE 325 MG (65 MG ELEMENTAL IRON) TAB PO SCH (09:26)
[2017-07-15] MEDS: LACTOBACILLUS ACIDOPHILUS TAB PO SCH ×2 (09:26→22:24)
[2017-07-15] MEDS: CYPROHEPTADINE HCL 4 MG TAB PO SCH ×2 (09:26→22:24)
[2017-07-15] MEDS: GABAPENTIN 400 MG CAP PO SCH ×3 (09:26→16:59)
[2017-07-15] MEDS: PYRIDOXINE HCL 50 MG TAB PO SCH (09:26)
[2017-07-15] MEDS: CYCLOBENZAPRINE HCL 10 MG TAB PO SCH ×3 (09:26→16:59)
[2017-07-15] MEDS: MORPHINE SULFATE 2 MG/ML SYRINGE IV PUSH PRN ×2 (09:27→22:25)
[2017-07-15] MEDS: SODIUM HYPOCHLORITE 0.25% 500 ML BTL TOPICAL SCH ×2 (09:28→22:24)
[2017-07-15] MEDS: SODIUM CHLORIDE 0.9% FLUSH 10 ML FLUSH IVF SCH (09:28)
[2017-07-15] MEDS: ZINC OXIDE 40% OINT 60 GM TUBE TOPICAL SCH ×2 (09:28→22:25)
--- NOTE | 2017-07-15 11:13 | HHI.PR ---
Subjective Remarks in no acute distress. no new complaints. clinically the same. Objective Vitals Vital Signs Date Time Temp Pulse Resp B/P (MAP) Pulse Ox O2 Delivery O2 Flow Rate FiO2 07/15/17 08:00 97.9 81 18 105/57 (73) 99 07/14/17 23:30 Room Air 07/14/17 20:00 98.6 92 18 119/65 (83) 98 07/14/17 16:04 98.0 102 18 125/65 (85) 97 07/14/17 12:04 98.0 100 18 104/60 (75) 97 07/14/17 11:22 Room Air I/O 07/14/17 07/14/17 07/14/17 07/15/17 07/15/17 07/15/17 07:00 15:00 23:00 07:00 15:00 23:00 Intake Total 360 ml 520 ml 360 ml Output Total 1000 ml 2300 ml 1150 ml Balance -640 ml -1780 ml -790 ml Intake Oral 360 ml 520 ml 360 ml Output Urine Total 1000 ml 2300 ml 1150 ml # Bowel Movements 0 1 Result Diagram: 07/12/17 0630 07/12/17 0630 Imaging Last Impressions Chest X-Ray 06/22/17 1157 Signed Impressions: Service Date/Time: Thursday, June 22, 2017 12:28 - CONCLUSION: No acute disease. Wes Callejas Jr., MD Objective Remarks GENERAL: This is a well-nourished, well-developed patient, in no apparent distress. CARDIOVASCULAR: Regular rate and regular rhythm without murmurs, gallops, or rubs. RESPIRATORY: Clear to auscultation. Breath sounds equal bilaterally. No wheezes , rales, or rhonchi. GASTROINTESTINAL: Abdomen soft, non-tender, nondistended. Normal, active bowel sounds MUSCULOSKELETAL: Extremities without clubbing, cyanosis, or edema. NEURO: Alert & Oriented x4 to person, place, time, situation. Medications and IVs Inpatient Medications Alteplase, Recombinant (Cathflo Activase Inj) 2 mg ONCE ONCE INTRACATH Last administered on 07/04/17t 21:35; Start 07/04/17 at 21:00; Stop 07/04/17 at 21 :11; Status DC Ceftaroline Fosamil 600 mg/ Sodium Chloride 100 ml @ 100 mls/hr Q12H IV Last administered on 06/29/17 09:12; Start 06/28/17 at 21:00; Stop 06/29/17 at 19:11 ; Status DC Cyclobenzaprine HCl (Flexeril) 10 mg TID PO Last administered on 07/15/17 09: 26; Start 06/25/17 at 09:00 Cyproheptadine HCl (Periactin) 4 mg BID PO Last administered on 07/15/17 09: 26; Start 06/24/17 at 21:00 Daptomycin 320 mg/ Sodium Chloride 100 ml @ 200 mls/hr Q24H IV Last administered on 06/28/17 11:50; Start 06/26/17 at 11:00; Stop 06/28/17 at 19:48 ; Status DC Enoxaparin Sodium (Lovenox Inj) 40 mg Q24H SQ Last administered on 07/14/17 16:15; Start 06/22/17 at 17:00 Ferrous Sulfate (Ferrous Sulfate) 325 mg DAILY PO Last administered on 09:26; Start 06/25/17 at 09:00 Fluconazole/ Sodium Chloride 50 ml @ 50 mls/hr Q24H IV Last administered on 19:35; Start 06/22/17 at 17:00; Stop 06/28/17 at 19:48; Status DC Gabapentin (Neurontin) 800 mg TID PO Last administered on 07/15/17 09:26; Start 06/25/17 at 09:00 Heparin Sodium (Porcine) (Heparin Central Flush) UNSCH PRN IV FLUSH SEE PROTOCOL; Start 07/04/17 at 21:00 Hydromorphone HCl (Dilaudid Pf Inj) 1 mg Q3H PRN IV PUSH Pain 6-10;if unable to take PO; Start 06/22/17 at 17:00; Stop 06/24/17 at 18:06; Status DC Hydromorphone HCl (Dilaudid) 4 mg Q6H PRN PO pain 510 Last administered on 20:36; Start 06/24/17 at 18:15 Ketorolac Tromethamine (Toradol Inj) 30 mg UNSCH X1 IV PUSH Last administered on 07/12/17 17:16; Start 07/12/17 at 17:00; Stop 07/12/17 at 23:59; Status DC Lactobacillus Acidophilus (Lactinex) 1 tab BID PO Last administered on 09:26; Start 06/24/17 at 21:00 Lactulose (Lactulose Liq) 30 ml DAILY PRN PO SEVERE CONSITIPATION; Start at 17:00 Levofloxacin (Levaquin) 750 mg DAILY PO Last administered on 07/13/17 09:21; Start 06/28/17 at 20:30; Stop 07/14/17 at 08:00; Status DC Magnesium Hydroxide (Milk Of Magnesia Liq) 30 ml Q12H PRN PO Mild constipation ; Start 06/22/17 at 17:00 Mirtazapine (Remeron) 15 mg HS PO Last administered on 07/14/17 22:02; Start 06/24/17 at 21:00 Morphine Sulfate (Morphine Inj) 2 mg BID PRN IV PUSH BEFORE DRESSING CHANGE. Last administered on 07/15/17 09:27; Start 07/14/17 at 17:30 Naloxone HCl (Narcan Inj) 0.4 mg UNSCH PRN IV PUSH SEE LABEL COMMENTS; Start 06/22/17 at 17:00 Olanzapine (ZyPREXA) 15 mg HS PO Last administered on 07/14/17 22:02; Start 06/24/17 at 21:00 Ondansetron HCl (Zofran Inj) 4 mg Q6H PRN IVP NAUSEA OR VOMITING; Start at 17:00 Oxycodone/ Acetaminophen (Percocet 5-325 Mg) 1 tab Q4H PRN PO PAIN SCALE 1 TO 4; Start 06/22/17 at 17:00 Oxycodone/ Acetaminophen (Percocet 10-325 Mg) 1 tab Q4H PRN PO PAIN SCALE 6 TO 10 Last administered on 06/24/17 13:37; Start 06/22/17 at 17:00; Stop 06/24/17 at 18:06; Status DC Piperacillin Sod/ Tazobactam Sod 100 ml @ 200 mls/hr Q8H IV Last administered on 06/28/17 19:35; Start 06/23/17 at 17:00; Stop 06/28/17 at 19:48; Status DC Potassium Chloride (KCl) 30 meq ONCE ONCE PO Last administered on 06/24/17 11 :41; Start 06/24/17 at 10:45; Stop 06/24/17 at 10:46; Status DC Pyridoxine HCl (Vitamin B6) 50 mg DAILY PO Last administered on 07/15/17 09: 26; Start 06/25/17 at 09:00 Senna/Docusate Sodium (Whitney-Colace) 1 tab BID PO Last administered on 09:26; Start 06/22/17 at 21:00 Sennosides (Senokot) 17.2 mg Q12H PRN PO Moderate constipation; Start 06/22/17 at 17:00 Sodium Hypochlorite (Dakin'S 0.25% Soln) 500 ml BID TOPICAL Last administered on 07/15/17 09:28; Start 06/23/17 at 21:00 Sodium Chloride (NS Flush) UNSCH PRN IVF SEE PROTOCOL; Start 07/04/17 at 21: 00 Trimethoprim/ Sulfamethoxazole (Bactrim Ds 800-160 Mg) 1 tab Q12HR PO Last administered on 07/14/17 10:06; Start 06/29/17 at 21:00; Stop 07/14/17 at 09: 00; Status DC Zinc Oxide (Desitin 40% Oint) 1 applic BID TOPICAL Last administered on 09:28; Start 06/23/17 at 21:00 A/P Problem List: (1) Decubitus ulcer ICD Code: L89.90 - Pressure ulcer of unspecified site, unspecified stage Status: Chronic (2) Neurogenic bladder ICD Code: N31.9 - Neuromuscular dysfunction of bladder, unspecified Status: Chronic (3) Paraplegia ICD Code: G82.20 - Paraplegia, unspecified Status: Chronic (4) UTI (urinary tract infection) ICD Code: N39.0 - Urinary tract infection Status: Resolved Assessment and Plan 36-year-old male admitted secondary to worsening sacral decubitus pressure ulcer and complicated urinary tract infection with chronic suprapubic catheter. treated with antibiotics per ID recommendations. Follow-up with wound care and infectious disease as outpatient. Shiraz coffman ordered IV Morphine PRN for dressing changes. Complicated urinary tract infection Chronic suprapubic catheter Budding yeast on UA Suprapubic catheter changed. Chronic anemia Follow CBC periodically Colostomy; Supportive care Discharge Planning dc planning to SNF in progress. Reddy Vo MD Jul 15, 2017 11:13
[2017-07-15 12:00] VITALS: BP 111/67; PULSE 81; RESP 18; TEMP 97.5; O2SAT 98
[2017-07-15] MEDS: HYDROmorphone HCL 4 MG TAB PO PRN (12:25)
[2017-07-15 16:00] VITALS: BP 126/78; PULSE 100; RESP 18; TEMP 97.9; O2SAT 99
[2017-07-15] MEDS: ENOXAPARIN SODIUM 40 MG/0.4 ML SYRINGE SQ SCH (16:58)
[2017-07-15 20:00] VITALS: BP 121/71; PULSE 94; RESP 19; TEMP 98.2; O2SAT 98
[2017-07-15] MEDS: MIRTAZAPINE 15 MG TAB PO SCH (22:24)
[2017-07-16] VITALS: BP 121/75; PULSE 88; RESP 18; TEMP 97.8; O2SAT 98
[2017-07-16 04:00] VITALS: BP 108/66; PULSE 93; RESP 18; TEMP 97.6; O2SAT 95
[2017-07-16] MEDS: HYDROmorphone HCL 4 MG TAB PO PRN ×2 (04:37→17:23)
[2017-07-16] MEDS: SODIUM CHLORIDE 0.9% FLUSH 10 ML FLUSH IVF SCH (07:32)
[2017-07-16] MEDS: SODIUM CHLORIDE 0.9% FLUSH 10 ML FLUSH IV FLUSH SCH ×2 (07:32→21:08)
[2017-07-16 08:01] VITALS: BP 106/56; PULSE 89; RESP 18; TEMP 98.3; O2SAT 98
[2017-07-16] MEDS: SODIUM HYPOCHLORITE 0.25% 500 ML BTL TOPICAL SCH ×2 (09:00→21:07)
[2017-07-16] MEDS: ZINC OXIDE 40% OINT 60 GM TUBE TOPICAL SCH ×2 (09:00→21:08)
[2017-07-16] MEDS: CYPROHEPTADINE HCL 4 MG TAB PO SCH ×2 (09:11→21:07)
[2017-07-16] MEDS: GABAPENTIN 400 MG CAP PO SCH ×3 (09:11→17:23)
[2017-07-16] MEDS: FERROUS SULFATE 325 MG (65 MG ELEMENTAL IRON) TAB PO SCH (09:11)
[2017-07-16] MEDS: PYRIDOXINE HCL 50 MG TAB PO SCH (09:11)
[2017-07-16] MEDS: CYCLOBENZAPRINE HCL 10 MG TAB PO SCH ×3 (09:11→17:23)
[2017-07-16] MEDS: LACTOBACILLUS ACIDOPHILUS TAB PO SCH ×2 (09:11→21:07)
[2017-07-16] MEDS: DOCUSATE SODIUM 50 MG/SENNA 8.6 MG TAB PO SCH ×2 (09:11→21:07)
--- NOTE | 2017-07-16 11:19 | HHI.PR ---
Subjective Remarks in no acute distress. denies pain. no new complaints. Objective Vitals Vital Signs Date Time Temp Pulse Resp B/P (MAP) Pulse Ox O2 Delivery O2 Flow Rate FiO2 07/16/17 08:32 Room Air 07/16/17 08:01 98.3 89 18 106/56 (73) 98 07/16/17 04:00 97.6 93 18 108/66 (80) 95 07/16/17 00:00 97.8 88 18 121/75 (90) 98 07/15/17 20:00 Room Air 07/15/17 20:00 98.2 94 19 121/71 (88) 98 07/15/17 16:25 Room Air 07/15/17 16:00 97.9 100 18 126/78 (94) 99 07/15/17 12:06 Room Air 07/15/17 12:00 97.5 81 18 111/67 (82) 98 I/O 07/15/17 07/15/17 07/15/17 07/16/17 07/16/17 07/16/17 07:00 15:00 23:00 07:00 15:00 23:00 Intake Total 360 ml 480 ml Output Total 1150 ml 800 ml 1000 ml 450 ml Balance -790 ml -320 ml -1000 ml -450 ml Intake Oral 360 ml 480 ml Output Urine Total 1150 ml 800 ml 1000 ml 450 ml # Bowel Movements 1 0 Result Diagram: 07/12/17 0630 07/12/17 0630 Imaging Last Impressions Chest X-Ray 06/22/17 1157 Signed Impressions: Service Date/Time: Thursday, June 22, 2017 12:28 - CONCLUSION: No acute disease. Wes Callejas Jr., MD Objective Remarks GENERAL: This is a well-nourished, well-developed patient, in no apparent distress. CARDIOVASCULAR: Regular rate and regular rhythm without murmurs, gallops, or rubs. RESPIRATORY: Clear to auscultation. Breath sounds equal bilaterally. No wheezes , rales, or rhonchi. GASTROINTESTINAL: Abdomen soft, non-tender, nondistended. Normal, active bowel sounds MUSCULOSKELETAL: Extremities without clubbing, cyanosis, or edema. NEURO: Alert & Oriented x4 to person, place, time, situation. Medications and IVs Inpatient Medications Alteplase, Recombinant (Cathflo Activase Inj) 2 mg ONCE ONCE INTRACATH Last administered on 07/04/17 21:35; Start 07/04/17 at 21:00; Stop 07/04/17 at 21 :11; Status DC Ceftaroline Fosamil 600 mg/ Sodium Chloride 100 ml @ 100 mls/hr Q12H IV Last administered on 06/29/17 09:12; Start 06/28/17 at 21:00; Stop 06/29/17 at 19:11 ; Status DC Cyclobenzaprine HCl (Flexeril) 10 mg TID PO Last administered on 07/16/17 09: 11; Start 06/25/17 at 09:00 Cyproheptadine HCl (Periactin) 4 mg BID PO Last administered on 07/16/17 09: 11; Start 06/24/17 at 21:00 Daptomycin 320 mg/ Sodium Chloride 100 ml @ 200 mls/hr Q24H IV Last administered on 06/28/17 11:50; Start 06/26/17 at 11:00; Stop 06/28/17 at 19:48 ; Status DC Enoxaparin Sodium (Lovenox Inj) 40 mg Q24H SQ Last administered on 07/15/17 16:58; Start 06/22/17 at 17:00 Ferrous Sulfate (Ferrous Sulfate) 325 mg DAILY PO Last administered on 09:11; Start 06/25/17 at 09:00 Fluconazole/ Sodium Chloride 50 ml @ 50 mls/hr Q24H IV Last administered on 19:35; Start 06/22/17 at 17:00; Stop 06/28/17 at 19:48; Status DC Gabapentin (Neurontin) 800 mg TID PO Last administered on 07/16/17 09:11; Start 06/25/17 at 09:00 Heparin Sodium (Porcine) (Heparin Central Flush) UNSCH PRN IV FLUSH SEE PROTOCOL; Start 07/04/17 at 21:00 Hydromorphone HCl (Dilaudid Pf Inj) 1 mg Q3H PRN IV PUSH Pain 6-10;if unable to take PO; Start 06/22/17 at 17:00; Stop 06/24/17 at 18:06; Status DC Hydromorphone HCl (Dilaudid) 4 mg Q6H PRN PO pain 510 Last administered on 04:37; Start 06/24/17 at 18:15 Ketorolac Tromethamine (Toradol Inj) 30 mg UNSCH X1 IV PUSH Last administered on 07/12/17 17:16; Start 07/12/17 at 17:00; Stop 07/12/17 at 23:59; Status DC Lactobacillus Acidophilus (Lactinex) 1 tab BID PO Last administered on 09:11; Start 06/24/17 at 21:00 Lactulose (Lactulose Liq) 30 ml DAILY PRN PO SEVERE CONSITIPATION; Start at 17:00 Levofloxacin (Levaquin) 750 mg DAILY PO Last administered on 07/13/17 09:21; Start 06/28/17 at 20:30; Stop 07/14/17 at 08:00; Status DC Magnesium Hydroxide (Milk Of Magnesia Liq) 30 ml Q12H PRN PO Mild constipation ; Start 06/22/17 at 17:00 Mirtazapine (Remeron) 15 mg HS PO Last administered on 07/15/17 22:24; Start 06/24/17 at 21:00 Morphine Sulfate (Morphine Inj) 2 mg BID PRN IV PUSH BEFORE DRESSING CHANGE. Last administered on 07/15/17 22:25; Start 07/14/17 at 17:30 Naloxone HCl (Narcan Inj) 0.4 mg UNSCH PRN IV PUSH SEE LABEL COMMENTS; Start 06/22/17 at 17:00 Olanzapine (ZyPREXA) 15 mg HS PO Last administered on 07/15/17 22:24; Start 06/24/17 at 21:00 Ondansetron HCl (Zofran Inj) 4 mg Q6H PRN IVP NAUSEA OR VOMITING; Start at 17:00 Oxycodone/ Acetaminophen (Percocet 5-325 Mg) 1 tab Q4H PRN PO PAIN SCALE 1 TO 4; Start 06/22/17 at 17:00 Oxycodone/ Acetaminophen (Percocet 10-325 Mg) 1 tab Q4H PRN PO PAIN SCALE 6 TO 10 Last administered on 06/24/17 13:37; Start 06/22/17 at 17:00; Stop 06/24/17 at 18:06; Status DC Piperacillin Sod/ Tazobactam Sod 100 ml @ 200 mls/hr Q8H IV Last administered on 06/28/17 19:35; Start 06/23/17 at 17:00; Stop 06/28/17 at 19:48; Status DC Potassium Chloride (KCl) 30 meq ONCE ONCE PO Last administered on 06/24/17 11 :41; Start 06/24/17 at 10:45; Stop 06/24/17 at 10:46; Status DC Pyridoxine HCl (Vitamin B6) 50 mg DAILY PO Last administered on 07/16/17 09: 11; Start 06/25/17 at 09:00 Senna/Docusate Sodium (Whitney-Colace) 1 tab BID PO Last administered on 09:11; Start 06/22/17 at 21:00 Sennosides (Senokot) 17.2 mg Q12H PRN PO Moderate constipation; Start 06/22/17 at 17:00 Sodium Hypochlorite (Dakin'S 0.25% Soln) 500 ml BID TOPICAL Last administered on 07/16/17 09:00; Start 06/23/17 at 21:00 Sodium Chloride (NS Flush) UNSCH PRN IVF SEE PROTOCOL; Start 07/04/17 at 21: 00 Trimethoprim/ Sulfamethoxazole (Bactrim Ds 800-160 Mg) 1 tab Q12HR PO Last administered on 07/14/17 10:06; Start 06/29/17 at 21:00; Stop 07/14/17 at 09: 00; Status DC Zinc Oxide (Desitin 40% Oint) 1 applic BID TOPICAL Last administered on 09:00; Start 06/23/17 at 21:00 A/P Problem List: (1) Decubitus ulcer ICD Code: L89.90 - Pressure ulcer of unspecified site, unspecified stage Status: Chronic (2) Neurogenic bladder ICD Code: N31.9 - Neuromuscular dysfunction of bladder, unspecified Status: Chronic (3) Paraplegia ICD Code: G82.20 - Paraplegia, unspecified Status: Chronic (4) UTI (urinary tract infection) ICD Code: N39.0 - Urinary tract infection Status: Resolved Assessment and Plan 36-year-old male admitted secondary to worsening sacral decubitus pressure ulcer and complicated urinary tract infection with chronic suprapubic catheter. treated with antibiotics per ID recommendations. Follow-up with wound care and infectious disease as outpatient. Shiraz coffman ordered IV Morphine PRN for dressing changes. Complicated urinary tract infection Chronic suprapubic catheter Budding yeast on UA Suprapubic catheter changed. Chronic anemia H/H stable. Follow CBC periodically Colostomy; Supportive care Discharge Planning dc planning to SNF in progress. Reddy Vo MD Jul 16, 2017 11:19
[2017-07-16 12:07] VITALS: BP 110/59; PULSE 84; RESP 18; TEMP 97.8; O2SAT 98
[2017-07-16] MEDS: MORPHINE SULFATE 2 MG/ML SYRINGE IV PUSH PRN ×2 (14:43→21:14)
[2017-07-16 16:02] VITALS: BP 126/79; PULSE 92; RESP 18; TEMP 98; O2SAT 98
[2017-07-16] MEDS: ENOXAPARIN SODIUM 40 MG/0.4 ML SYRINGE SQ SCH (17:23)
[2017-07-16] MEDS: MIRTAZAPINE 15 MG TAB PO SCH (21:07)
[2017-07-16 21:49] VITALS: BP 112/71; PULSE 94; RESP 16; TEMP 98.6; O2SAT 95
[2017-07-17 00:37] VITALS: BP 135/73; PULSE 99; RESP 16; TEMP 97.9; O2SAT 98
[2017-07-17] MEDS: HYDROmorphone HCL 4 MG TAB PO PRN (01:44)
[2017-07-17 05:10] VITALS: BP 106/58; PULSE 95; RESP 16; TEMP 98.1; O2SAT 97
[2017-07-17 08:00] VITALS: BP 112/71; PULSE 98; RESP 20; TEMP 97.8; O2SAT 99
[2017-07-17] MEDS: ZINC OXIDE 40% OINT 60 GM TUBE TOPICAL SCH ×2 (09:00→22:46)
[2017-07-17] MEDS: SODIUM HYPOCHLORITE 0.25% 500 ML BTL TOPICAL SCH ×2 (09:00→23:30)
[2017-07-17] MEDS: SODIUM CHLORIDE 0.9% FLUSH 10 ML FLUSH IVF SCH (09:00)
[2017-07-17] MEDS: SODIUM CHLORIDE 0.9% FLUSH 10 ML FLUSH IV FLUSH SCH ×2 (09:00→22:43)
[2017-07-17] MEDS: PYRIDOXINE HCL 50 MG TAB PO SCH (10:01)
[2017-07-17] MEDS: CYPROHEPTADINE HCL 4 MG TAB PO SCH ×2 (10:02→22:43)
[2017-07-17] MEDS: CYCLOBENZAPRINE HCL 10 MG TAB PO SCH ×3 (10:02→17:13)
[2017-07-17] MEDS: DOCUSATE SODIUM 50 MG/SENNA 8.6 MG TAB PO SCH ×2 (10:02→22:43)
[2017-07-17] MEDS: GABAPENTIN 400 MG CAP PO SCH ×3 (10:02→17:14)
[2017-07-17] MEDS: LACTOBACILLUS ACIDOPHILUS TAB PO SCH ×2 (10:02→22:43)
[2017-07-17] MEDS: FERROUS SULFATE 325 MG (65 MG ELEMENTAL IRON) TAB PO SCH (10:02)
--- NOTE | 2017-07-17 10:34 | HHI.PR ---
Subjective Remarks in no acute distress. denies pain. no new complaints. Objective Vitals Vital Signs Date Time Temp Pulse Resp B/P (MAP) Pulse Ox O2 Delivery O2 Flow Rate FiO2 07/17/17 10:15 Room Air 07/17/17 08:00 97.8 98 20 112/71 (85) 99 07/17/17 05:10 98.1 95 16 106/58 (74) 97 07/17/17 02:44 20 07/17/17 00:37 Room Air 07/17/17 00:37 97.9 99 16 135/73 (93) 98 07/16/17 21:49 Room Air 07/16/17 21:49 98.6 94 16 112/71 (85) 95 07/16/17 21:19 20 07/16/17 16:02 98.0 92 18 126/79 (95) 98 07/16/17 12:07 97.8 84 18 110/59 (76) 98 I/O 07/16/17 07/16/17 07/16/17 07/17/17 07/17/17 07/17/17 07:00 15:00 23:00 07:00 15:00 23:00 Intake Total 600 ml 720 ml Output Total 450 ml 350 ml 1300 ml Balance -450 ml 250 ml -580 ml Intake Oral 600 ml 720 ml Output Urine Total 450 ml 350 ml 1300 ml # Bowel Movements 0 0 Imaging Last Impressions Chest X-Ray 06/22/17 1157 Signed Impressions: Service Date/Time: Thursday, June 22, 2017 12:28 - CONCLUSION: No acute disease. Wes Callejas Jr., MD Objective Remarks GENERAL: This is a well-nourished, well-developed patient, in no apparent distress. CARDIOVASCULAR: Regular rate and regular rhythm without murmurs, gallops, or rubs. RESPIRATORY: Clear to auscultation. Breath sounds equal bilaterally. No wheezes , rales, or rhonchi. GASTROINTESTINAL: Abdomen soft, non-tender, nondistended. Normal, active bowel sounds MUSCULOSKELETAL: Extremities without clubbing, cyanosis, or edema. NEURO: Alert & Oriented x4 to person, place, time, situation. Medications and IVs Inpatient Medications Alteplase, Recombinant (Cathflo Activase Inj) 2 mg ONCE ONCE INTRACATH Last administered on 07/04/17t 21:35; Start 07/04/17 at 21:00; Stop 07/04/17 at 21 :11; Status DC Ceftaroline Fosamil 600 mg/ Sodium Chloride 100 ml @ 100 mls/hr Q12H IV Last administered on 06/29/17 09:12; Start 06/28/17 at 21:00; Stop 06/29/17 at 19:11 ; Status DC Cyclobenzaprine HCl (Flexeril) 10 mg TID PO Last administered on 07/17/17 10: 02; Start 06/25/17 at 09:00 Cyproheptadine HCl (Periactin) 4 mg BID PO Last administered on 07/17/17 10: 02; Start 06/24/17 at 21:00 Daptomycin 320 mg/ Sodium Chloride 100 ml @ 200 mls/hr Q24H IV Last administered on 06/28/17 11:50; Start 06/26/17 at 11:00; Stop 06/28/17 at 19:48 ; Status DC Enoxaparin Sodium (Lovenox Inj) 40 mg Q24H SQ Last administered on 07/16/17 17:23; Start 06/22/17 at 17:00 Ferrous Sulfate (Ferrous Sulfate) 325 mg DAILY PO Last administered on 10:02; Start 06/25/17 at 09:00 Fluconazole/ Sodium Chloride 50 ml @ 50 mls/hr Q24H IV Last administered on 19:35; Start 06/22/17 at 17:00; Stop 06/28/17 at 19:48; Status DC Gabapentin (Neurontin) 800 mg TID PO Last administered on 07/17/17 10:02; Start 06/25/17 at 09:00 Heparin Sodium (Porcine) (Heparin Central Flush) UNSCH PRN IV FLUSH SEE PROTOCOL; Start 07/04/17 at 21:00 Hydromorphone HCl (Dilaudid Pf Inj) 1 mg Q3H PRN IV PUSH Pain 6-10;if unable to take PO; Start 06/22/17 at 17:00; Stop 06/24/17 at 18:06; Status DC Hydromorphone HCl (Dilaudid) 4 mg Q6H PRN PO pain 510 Last administered on 01:44; Start 06/24/17 at 18:15 Ketorolac Tromethamine (Toradol Inj) 30 mg UNSCH X1 IV PUSH Last administered on 07/12/17 17:16; Start 07/12/17 at 17:00; Stop 07/12/17 at 23:59; Status DC Lactobacillus Acidophilus (Lactinex) 1 tab BID PO Last administered on 10:02; Start 06/24/17 at 21:00 Lactulose (Lactulose Liq) 30 ml DAILY PRN PO SEVERE CONSITIPATION; Start at 17:00 Levofloxacin (Levaquin) 750 mg DAILY PO Last administered on 07/13/17 09:21; Start 06/28/17 at 20:30; Stop 07/14/17 at 08:00; Status DC Magnesium Hydroxide (Milk Of Magnesia Liq) 30 ml Q12H PRN PO Mild constipation ; Start 06/22/17 at 17:00 Mirtazapine (Remeron) 15 mg HS PO Last administered on 07/16/17 21:07; Start 06/24/17 at 21:00 Morphine Sulfate (Morphine Inj) 2 mg BID PRN IV PUSH BEFORE DRESSING CHANGE. Last administered on 07/16/17 21:14; Start 07/14/17 at 17:30 Naloxone HCl (Narcan Inj) 0.4 mg UNSCH PRN IV PUSH SEE LABEL COMMENTS; Start 06/22/17 at 17:00 Olanzapine (ZyPREXA) 15 mg HS PO Last administered on 07/16/17 21:07; Start 06/24/17 at 21:00 Ondansetron HCl (Zofran Inj) 4 mg Q6H PRN IVP NAUSEA OR VOMITING; Start at 17:00 Oxycodone/ Acetaminophen (Percocet 5-325 Mg) 1 tab Q4H PRN PO PAIN SCALE 1 TO 4; Start 06/22/17 at 17:00 Oxycodone/ Acetaminophen (Percocet 10-325 Mg) 1 tab Q4H PRN PO PAIN SCALE 6 TO 10 Last administered on 06/24/17 13:37; Start 06/22/17 at 17:00; Stop 06/24/17 at 18:06; Status DC Piperacillin Sod/ Tazobactam Sod 100 ml @ 200 mls/hr Q8H IV Last administered on 06/28/17 19:35; Start 06/23/17 at 17:00; Stop 06/28/17 at 19:48; Status DC Potassium Chloride (KCl) 30 meq ONCE ONCE PO Last administered on 06/24/17 11 :41; Start 06/24/17 at 10:45; Stop 06/24/17 at 10:46; Status DC Pyridoxine HCl (Vitamin B6) 50 mg DAILY PO Last administered on 07/17/17 10: 01; Start 06/25/17 at 09:00 Senna/Docusate Sodium (Whitney-Colace) 1 tab BID PO Last administered on 10:02; Start 06/22/17 at 21:00 Sennosides (Senokot) 17.2 mg Q12H PRN PO Moderate constipation; Start 06/22/17 at 17:00 Sodium Hypochlorite (Dakin'S 0.25% Soln) 500 ml BID TOPICAL Last administered on 07/17/17 09:00; Start 06/23/17 at 21:00 Sodium Chloride (NS Flush) UNSCH PRN IVF SEE PROTOCOL; Start 07/04/17 at 21: 00 Trimethoprim/ Sulfamethoxazole (Bactrim Ds 800-160 Mg) 1 tab Q12HR PO Last administered on 07/14/17 10:06; Start 06/29/17 at 21:00; Stop 07/14/17 at 09: 00; Status DC Zinc Oxide (Desitin 40% Oint) 1 applic BID TOPICAL Last administered on 09:00; Start 06/23/17 at 21:00 A/P Problem List: (1) Decubitus ulcer ICD Code: L89.90 - Pressure ulcer of unspecified site, unspecified stage Status: Chronic (2) Neurogenic bladder ICD Code: N31.9 - Neuromuscular dysfunction of bladder, unspecified Status: Chronic (3) Paraplegia ICD Code: G82.20 - Paraplegia, unspecified Status: Chronic (4) UTI (urinary tract infection) ICD Code: N39.0 - Urinary tract infection Status: Resolved Assessment and Plan 36-year-old male admitted secondary to worsening sacral decubitus pressure ulcer and complicated urinary tract infection with chronic suprapubic catheter. treated with antibiotics per ID recommendations. Follow-up with wound care and infectious disease as outpatient. Shiraz coffman ordered IV Morphine PRN for dressing changes. Complicated urinary tract infection Chronic suprapubic catheter Budding yeast on UA Suprapubic catheter changed. Chronic anemia H/H stable. Follow CBC periodically Colostomy; Supportive care Discharge Planning dc planning to SNF in progress. Reddy Vo MD Jul 17, 2017 10:34
[2017-07-17 12:00] VITALS: BP 126/68; PULSE 87; RESP 18; TEMP 97.7; O2SAT 98
[2017-07-17] MEDS: MORPHINE SULFATE 2 MG/ML SYRINGE IV PUSH PRN (15:17)
[2017-07-17 16:00] VITALS: BP 108/67; PULSE 88; RESP 18; TEMP 98; O2SAT 99
[2017-07-17] MEDS: ENOXAPARIN SODIUM 40 MG/0.4 ML SYRINGE SQ SCH (16:51)
[2017-07-17 20:00] VITALS: BP 118/65; PULSE 107; RESP 18; TEMP 98; O2SAT 100
[2017-07-17] MEDS: MIRTAZAPINE 15 MG TAB PO SCH (22:43)
[2017-07-18 00:17] VITALS: BP 110/60; PULSE 94; RESP 20; TEMP 98.4; O2SAT 96
[2017-07-18] MEDS: HYDROmorphone HCL 4 MG TAB PO PRN (05:07)
[2017-07-18 08:04] VITALS: BP 111/58; PULSE 85; RESP 18; TEMP 97.3; O2SAT 96
[2017-07-18] MEDS: SODIUM CHLORIDE 0.9% FLUSH 10 ML FLUSH IVF SCH (09:39)
[2017-07-18] MEDS: DOCUSATE SODIUM 50 MG/SENNA 8.6 MG TAB PO SCH ×2 (09:40→21:59)
[2017-07-18] MEDS: GABAPENTIN 400 MG CAP PO SCH ×3 (09:40→17:28)
[2017-07-18] MEDS: CYCLOBENZAPRINE HCL 10 MG TAB PO SCH ×3 (09:40→17:27)
[2017-07-18] MEDS: LACTOBACILLUS ACIDOPHILUS TAB PO SCH ×2 (09:40→21:41)
[2017-07-18] MEDS: PYRIDOXINE HCL 50 MG TAB PO SCH (09:41)
[2017-07-18] MEDS: FERROUS SULFATE 325 MG (65 MG ELEMENTAL IRON) TAB PO SCH (09:41)
[2017-07-18] MEDS: CYPROHEPTADINE HCL 4 MG TAB PO SCH ×2 (09:41→22:03)
[2017-07-18] MEDS: SODIUM CHLORIDE 0.9% FLUSH 10 ML FLUSH IV FLUSH SCH ×2 (09:46→22:02)
[2017-07-18 12:01] VITALS: BP 128/68; PULSE 97; RESP 18; TEMP 97.6; O2SAT 97
[2017-07-18] MEDS: SODIUM HYPOCHLORITE 0.25% 500 ML BTL TOPICAL SCH ×2 (14:09→22:00)
[2017-07-18] MEDS: ZINC OXIDE 40% OINT 60 GM TUBE TOPICAL SCH ×2 (14:09→22:03)
[2017-07-18] MEDS: MORPHINE SULFATE 2 MG/ML SYRINGE IV PUSH PRN ×2 (14:14→21:48)
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
[2017-07-18 16:01] VITALS: BP 120/70; PULSE 93; RESP 18; TEMP 97.6; O2SAT 96
[2017-07-18] MEDS: ENOXAPARIN SODIUM 40 MG/0.4 ML SYRINGE SQ SCH (17:27)
[2017-07-18 20:00] VITALS: BP 130/65; PULSE 107; RESP 16; TEMP 98.1; O2SAT 98
[2017-07-18] MEDS: MIRTAZAPINE 15 MG TAB PO SCH (21:59)
[2017-07-19] VITALS: BP 117/74; PULSE 98; RESP 16; TEMP 98.3; O2SAT 98
[2017-07-19 06:10] LABS: AUTOMATED NEUTROPHIL # 3.6 TH/MM3 (1.8-7.7); BASOPHIL % 0.5 % (0.0-2.0); EOSINOPHIL # 0.3 TH/MM3 (0-0.4); EOSINOPHIL % 3.4 % (0.0-4.0); HEMATOCRIT 32.8 % (39.0-51.0); HEMOGLOBIN 10.9 GM/DL (13.0-17.0); LYMPH % 40.2 % (9.0-44.0); MEAN CELL VOLUME 81.6 FL (80.0-100.0); MEAN CORPUSCULAR HGB CONC 33.1 % (32.0-36.0); MEAN PLATELET VOLUME 5.8 FL (7.0-11.0); MONOCYTE # 0.5 TH/MM3 (0-0.9); NEUT % 48.9 % (16.0-70.0); PLATELET COUNT 463 TH/MM3 (150-450); RED BLOOD COUNT 4.01 MIL/MM3 (4.50-5.90); RED CELL DISTRIBUTION WIDTH 19.2 % (11.6-17.2); WHITE BLOOD COUNT 7.4 TH/MM3 (4.0-11.0)
[2017-07-19 06:34] LABS: ALBUMIN 2.6 GM/DL (3.4-5.0); AST (GOT) 31 U/L (15-37); BICARBONATE 25.9 MEQ/L (21.0-32.0); BLOOD UREA NITROGEN 9 MG/DL (7-18); CALCIUM 8.3 MG/DL (8.5-10.1); CHLORIDE 106 MEQ/L (98-107); GLOMERULAR FILTRATION RATE 226 ML/MIN (>89); GLUCOSE,RANDOM 97 MG/DL (74-106); SODIUM (NA) 141 MEQ/L (136-145)
[2017-07-19 06:35] LABS: ALT (GPT) 55 U/L (12-78); PHOSPHORUS 3.2 MG/DL (2.5-4.9)
[2017-07-19 06:44] LABS: ALKALINE PHOSPHATASE 172 U/L (45-117); FREE T4 0.96 NG/DL (0.76-1.46); TOTAL BILIRUBIN ADULT 0.1 MG/DL (0.2-1.0)
[2017-07-19 08:01] VITALS: BP 112/63; PULSE 83; RESP 17; TEMP 97.9; O2SAT 97
[2017-07-19] MEDS: SODIUM CHLORIDE 0.9% FLUSH 10 ML FLUSH IVF SCH (09:05)
[2017-07-19] MEDS: CYCLOBENZAPRINE HCL 10 MG TAB PO SCH ×3 (09:06→16:59)
[2017-07-19] MEDS: DOCUSATE SODIUM 50 MG/SENNA 8.6 MG TAB PO SCH ×2 (09:06→22:03)
[2017-07-19] MEDS: CYPROHEPTADINE HCL 4 MG TAB PO SCH ×2 (09:06→22:04)
[2017-07-19] MEDS: PYRIDOXINE HCL 50 MG TAB PO SCH (09:06)
[2017-07-19] MEDS: FERROUS SULFATE 325 MG (65 MG ELEMENTAL IRON) TAB PO SCH (09:06)
[2017-07-19] MEDS: LACTOBACILLUS ACIDOPHILUS TAB PO SCH ×2 (09:06→22:04)
[2017-07-19] MEDS: GABAPENTIN 400 MG CAP PO SCH ×3 (09:07→17:00)
[2017-07-19] MEDS: MORPHINE SULFATE 2 MG/ML SYRINGE IV PUSH PRN ×2 (09:09→22:05)
[2017-07-19] MEDS: ZINC OXIDE 40% OINT 60 GM TUBE TOPICAL SCH ×2 (09:10→22:05)
[2017-07-19] MEDS: SODIUM HYPOCHLORITE 0.25% 500 ML BTL TOPICAL SCH ×2 (09:10→22:04)
[2017-07-19] MEDS: SODIUM CHLORIDE 0.9% FLUSH 10 ML FLUSH IV FLUSH SCH ×2 (09:13→22:04)
[2017-07-19 12:01] VITALS: BP 127/67; PULSE 100; RESP 17; TEMP 98.2; O2SAT 98
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
[2017-07-19] MEDS: HYDROmorphone HCL 4 MG TAB PO PRN (13:13)
[2017-07-19 16:01] VITALS: BP 109/65; PULSE 87; RESP 17; TEMP 98.1; O2SAT 96
[2017-07-19 16:22] LABS: HEMOGLOBIN A1C 5.1 % (4.3-6.0)
[2017-07-19] MEDS: ENOXAPARIN SODIUM 40 MG/0.4 ML SYRINGE SQ SCH (16:59)
[2017-07-19 20:00] VITALS: BP 140/80; PULSE 93; RESP 20; TEMP 98.8; O2SAT 96
[2017-07-19] MEDS: MIRTAZAPINE 15 MG TAB PO SCH (22:03)
[2017-07-20 00:33] VITALS: BP 110/65; PULSE 92; RESP 20; TEMP 98.3; O2SAT 96
[2017-07-20 08:00] VITALS: BP 124/71; PULSE 81; RESP 20; TEMP 97.4; O2SAT 97
[2017-07-20] MEDS: LACTOBACILLUS ACIDOPHILUS TAB PO SCH ×2 (09:21→21:04)
[2017-07-20] MEDS: PYRIDOXINE HCL 50 MG TAB PO SCH (09:21)
[2017-07-20] MEDS: GABAPENTIN 400 MG CAP PO SCH ×3 (09:21→18:12)
[2017-07-20] MEDS: FERROUS SULFATE 325 MG (65 MG ELEMENTAL IRON) TAB PO SCH (09:21)
[2017-07-20] MEDS: DOCUSATE SODIUM 50 MG/SENNA 8.6 MG TAB PO SCH ×2 (09:22→21:05)
[2017-07-20] MEDS: SODIUM CHLORIDE 0.9% FLUSH 10 ML FLUSH IV FLUSH SCH ×2 (09:22→21:06)
[2017-07-20] MEDS: CYCLOBENZAPRINE HCL 10 MG TAB PO SCH ×3 (09:22→18:11)
[2017-07-20] MEDS: SODIUM CHLORIDE 0.9% FLUSH 10 ML FLUSH IVF SCH (09:22)
[2017-07-20] MEDS: MORPHINE SULFATE 2 MG/ML SYRINGE IV PUSH PRN ×2 (09:24→22:45)
[2017-07-20] MEDS: CYPROHEPTADINE HCL 4 MG TAB PO SCH ×2 (10:25→21:04)
[2017-07-20] MEDS: SODIUM HYPOCHLORITE 0.25% 500 ML BTL TOPICAL SCH ×2 (10:25→21:08)
[2017-07-20] MEDS: ZINC OXIDE 40% OINT 60 GM TUBE TOPICAL SCH ×2 (10:34→21:08)
[2017-07-20 12:00] VITALS: BP 115/59; PULSE 80; RESP 20; TEMP 98.1; O2SAT 96
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
[2017-07-20] MEDS: HYDROmorphone HCL 4 MG TAB PO PRN ×2 (13:01→21:05)
[2017-07-20 16:00] VITALS: BP 121/72; PULSE 92; RESP 20; TEMP 98; O2SAT 96
[2017-07-20] MEDS: ENOXAPARIN SODIUM 40 MG/0.4 ML SYRINGE SQ SCH (18:12)
[2017-07-20 20:00] VITALS: BP 117/69; PULSE 99; RESP 17; TEMP 98.4; O2SAT 96
[2017-07-20] MEDS: MIRTAZAPINE 15 MG TAB PO SCH (21:04)
[2017-07-21] VITALS: BP 129/76; PULSE 89; RESP 17; TEMP 97.8; O2SAT 97
[2017-07-21 08:00] VITALS: BP 110/65; PULSE 84; RESP 18; TEMP 98.1; O2SAT 96
[2017-07-21] MEDS: ZINC OXIDE 40% OINT 60 GM TUBE TOPICAL SCH ×2 (09:00→21:13)
[2017-07-21] MEDS: PYRIDOXINE HCL 50 MG TAB PO SCH (09:00)
[2017-07-21] MEDS: SODIUM CHLORIDE 0.9% FLUSH 10 ML FLUSH IVF SCH (09:00)
[2017-07-21] MEDS: SODIUM HYPOCHLORITE 0.25% 500 ML BTL TOPICAL SCH ×2 (09:00→21:13)
[2017-07-21] MEDS: LACTOBACILLUS ACIDOPHILUS TAB PO SCH ×2 (09:22→21:12)
[2017-07-21] MEDS: FERROUS SULFATE 325 MG (65 MG ELEMENTAL IRON) TAB PO SCH (09:22)
[2017-07-21] MEDS: DOCUSATE SODIUM 50 MG/SENNA 8.6 MG TAB PO SCH ×2 (09:23→21:12)
[2017-07-21] MEDS: CYCLOBENZAPRINE HCL 10 MG TAB PO SCH ×3 (09:23→17:57)
[2017-07-21] MEDS: CYPROHEPTADINE HCL 4 MG TAB PO SCH ×2 (09:23→21:12)
[2017-07-21] MEDS: SODIUM CHLORIDE 0.9% FLUSH 10 ML FLUSH IV FLUSH SCH ×2 (09:23→21:12)
[2017-07-21] MEDS: GABAPENTIN 400 MG CAP PO SCH ×3 (09:23→17:57)
[2017-07-21] MEDS: MORPHINE SULFATE 2 MG/ML SYRINGE IV PUSH PRN ×2 (11:10→22:05)
[2017-07-21] MEDS: HYDROmorphone HCL 4 MG TAB PO PRN ×3 (11:10→23:53)
[2017-07-21 12:00] VITALS: BP 132/82; PULSE 59; RESP 18; TEMP 97.6; O2SAT 99
[2017-07-21 16:00] VITALS: BP 132/78; PULSE 93; RESP 18; TEMP 98.6; O2SAT 98
[2017-07-21] MEDS: ENOXAPARIN SODIUM 40 MG/0.4 ML SYRINGE SQ SCH (17:58)
[2017-07-21 20:00] VITALS: BP 122/81; PULSE 85; RESP 17; TEMP 97.9; O2SAT 97
[2017-07-21] MEDS: MIRTAZAPINE 15 MG TAB PO SCH (21:12)
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
[2017-07-22] VITALS: BP 112/55; PULSE 64; RESP 17; TEMP 97.8; O2SAT 94
[2017-07-22] MEDS: HYDROmorphone HCL 4 MG TAB PO PRN ×3 (05:45→18:29)
[2017-07-22 08:00] VITALS: BP 110/64; PULSE 90; RESP 18; TEMP 97.6; O2SAT 96
[2017-07-22] MEDS: ZINC OXIDE 40% OINT 60 GM TUBE TOPICAL SCH ×2 (09:00→21:01)
[2017-07-22] MEDS: SODIUM HYPOCHLORITE 0.25% 500 ML BTL TOPICAL SCH ×2 (09:00→21:00)
[2017-07-22] MEDS: DOCUSATE SODIUM 50 MG/SENNA 8.6 MG TAB PO SCH ×2 (09:00→20:59)
[2017-07-22] MEDS: SODIUM CHLORIDE 0.9% FLUSH 10 ML FLUSH IVF SCH (09:00)
[2017-07-22] MEDS: SODIUM CHLORIDE 0.9% FLUSH 10 ML FLUSH IV FLUSH SCH ×2 (09:00→20:59)
[2017-07-22] MEDS: CYCLOBENZAPRINE HCL 10 MG TAB PO SCH ×3 (10:11→18:29)
[2017-07-22] MEDS: CYPROHEPTADINE HCL 4 MG TAB PO SCH ×2 (10:11→20:59)
[2017-07-22] MEDS: GABAPENTIN 400 MG CAP PO SCH ×3 (10:11→18:28)
[2017-07-22] MEDS: FERROUS SULFATE 325 MG (65 MG ELEMENTAL IRON) TAB PO SCH (10:11)
[2017-07-22] MEDS: LACTOBACILLUS ACIDOPHILUS TAB PO SCH ×2 (10:11→20:59)
[2017-07-22] MEDS: PYRIDOXINE HCL 50 MG TAB PO SCH (10:11)
[2017-07-22] MEDS: MORPHINE SULFATE 2 MG/ML SYRINGE IV PUSH PRN ×2 (10:33→21:00)
[2017-07-22 12:00] VITALS: BP 114/61; PULSE 93; RESP 18; TEMP 97.7; O2SAT 96
[2017-07-22 15:52] VITALS: BP 122/73; PULSE 89; RESP 18; TEMP 98; O2SAT 96
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
[2017-07-22] MEDS: ENOXAPARIN SODIUM 40 MG/0.4 ML SYRINGE SQ SCH (18:29)
[2017-07-22 20:09] VITALS: BP 119/74; PULSE 94; RESP 16; TEMP 98.3; O2SAT 96
[2017-07-22] MEDS: MIRTAZAPINE 15 MG TAB PO SCH (20:59)
[2017-07-23] VITALS: BP 111/70; PULSE 91; RESP 14; TEMP 97.6; O2SAT 98
[2017-07-23] MEDS: HYDROmorphone HCL 4 MG TAB PO PRN ×4 (00:28→23:12)
[2017-07-23 08:00] VITALS: BP 104/57; PULSE 88; RESP 16; TEMP 97.8; O2SAT 95
[2017-07-23] MEDS: LACTOBACILLUS ACIDOPHILUS TAB PO SCH ×2 (09:31→20:35)
[2017-07-23] MEDS: FERROUS SULFATE 325 MG (65 MG ELEMENTAL IRON) TAB PO SCH (09:31)
[2017-07-23] MEDS: CYCLOBENZAPRINE HCL 10 MG TAB PO SCH ×3 (09:31→17:00)
[2017-07-23] MEDS: DOCUSATE SODIUM 50 MG/SENNA 8.6 MG TAB PO SCH ×2 (09:32→20:35)
[2017-07-23] MEDS: CYPROHEPTADINE HCL 4 MG TAB PO SCH ×2 (09:32→20:35)
[2017-07-23] MEDS: GABAPENTIN 400 MG CAP PO SCH ×3 (09:32→17:00)
[2017-07-23] MEDS: PYRIDOXINE HCL 50 MG TAB PO SCH (09:32)
[2017-07-23] MEDS: SODIUM CHLORIDE 0.9% FLUSH 10 ML FLUSH IVF SCH (09:33)
[2017-07-23] MEDS: SODIUM CHLORIDE 0.9% FLUSH 10 ML FLUSH IV FLUSH SCH ×2 (09:33→20:35)
[2017-07-23 12:00] VITALS: BP 127/68; PULSE 99; RESP 18; TEMP 97.6; O2SAT 97
[2017-07-23] MEDS: ZINC OXIDE 40% OINT 60 GM TUBE TOPICAL SCH ×2 (12:47→20:35)
[2017-07-23] MEDS: SODIUM HYPOCHLORITE 0.25% 500 ML BTL TOPICAL SCH ×2 (12:47→20:35)
[2017-07-23] MEDS: MORPHINE SULFATE 2 MG/ML SYRINGE IV PUSH PRN ×2 (12:47→20:35)
[2017-07-23 16:00] VITALS: BP 115/65; PULSE 94; RESP 18; TEMP 98.7; O2SAT 96
[2017-07-23] MEDS: ENOXAPARIN SODIUM 40 MG/0.4 ML SYRINGE SQ SCH (17:01)
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
[2017-07-23 20:00] VITALS: BP 118/69; PULSE 95; RESP 18; TEMP 97.3; O2SAT 95
[2017-07-23] MEDS: MIRTAZAPINE 15 MG TAB PO SCH (20:35)
[2017-07-24] VITALS: BP 119/68; PULSE 107; RESP 18; TEMP 97.7; O2SAT 96
[2017-07-24 08:00] VITALS: BP 116/72; PULSE 96; RESP 18; TEMP 97.1; O2SAT 97
[2017-07-24] MEDS: FERROUS SULFATE 325 MG (65 MG ELEMENTAL IRON) TAB PO SCH (09:07)
[2017-07-24] MEDS: SODIUM CHLORIDE 0.9% FLUSH 10 ML FLUSH IV FLUSH SCH ×2 (09:07→22:08)
[2017-07-24] MEDS: PYRIDOXINE HCL 50 MG TAB PO SCH (09:07)
[2017-07-24] MEDS: GABAPENTIN 400 MG CAP PO SCH ×3 (09:08→16:56)
[2017-07-24] MEDS: LACTOBACILLUS ACIDOPHILUS TAB PO SCH ×2 (09:08→22:08)
[2017-07-24] MEDS: CYCLOBENZAPRINE HCL 10 MG TAB PO SCH ×3 (09:08→16:56)
[2017-07-24] MEDS: HYDROmorphone HCL 4 MG TAB PO PRN ×3 (09:09→22:59)
[2017-07-24] MEDS: SODIUM CHLORIDE 0.9% FLUSH 10 ML FLUSH IVF SCH (09:14)
[2017-07-24] MEDS: ZINC OXIDE 40% OINT 60 GM TUBE TOPICAL SCH ×2 (09:15→22:09)
[2017-07-24] MEDS: SODIUM HYPOCHLORITE 0.25% 500 ML BTL TOPICAL SCH ×2 (09:15→22:09)
[2017-07-24] MEDS: DOCUSATE SODIUM 50 MG/SENNA 8.6 MG TAB PO SCH ×2 (09:20→22:08)
[2017-07-24] MEDS: CYPROHEPTADINE HCL 4 MG TAB PO SCH ×2 (09:20→22:08)
[2017-07-24 12:00] VITALS: BP 122/76; PULSE 77; RESP 18; TEMP 97.3; O2SAT 98
[2017-07-24] MEDS: MORPHINE SULFATE 2 MG/ML SYRINGE IV PUSH PRN ×2 (12:27→22:09)
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
[2017-07-24 16:00] VITALS: BP 118/68; PULSE 87; RESP 18; TEMP 97.6; O2SAT 96
[2017-07-24] MEDS: ENOXAPARIN SODIUM 40 MG/0.4 ML SYRINGE SQ SCH (16:56)
[2017-07-24 20:00] VITALS: BP 119/77; PULSE 106; RESP 16; TEMP 98.1; O2SAT 96
[2017-07-24] MEDS: MIRTAZAPINE 15 MG TAB PO SCH (22:08)
[2017-07-25] VITALS: BP 110/66; PULSE 95; RESP 16; TEMP 97.5; O2SAT 95
[2017-07-25 08:00] VITALS: BP 109/66; PULSE 95; RESP 18; TEMP 97.7; O2SAT 96
[2017-07-25] MEDS: CYPROHEPTADINE HCL 4 MG TAB PO SCH ×2 (08:34→22:07)
[2017-07-25] MEDS: CYCLOBENZAPRINE HCL 10 MG TAB PO SCH ×3 (08:34→18:19)
[2017-07-25] MEDS: DOCUSATE SODIUM 50 MG/SENNA 8.6 MG TAB PO SCH ×2 (08:34→22:07)
[2017-07-25] MEDS: LACTOBACILLUS ACIDOPHILUS TAB PO SCH ×2 (08:34→22:07)
[2017-07-25] MEDS: GABAPENTIN 400 MG CAP PO SCH ×3 (08:34→18:19)
[2017-07-25] MEDS: SODIUM CHLORIDE 0.9% FLUSH 10 ML FLUSH IV FLUSH SCH ×2 (08:35→21:00)
[2017-07-25] MEDS: PYRIDOXINE HCL 50 MG TAB PO SCH (08:35)
[2017-07-25] MEDS: ZINC OXIDE 40% OINT 60 GM TUBE TOPICAL SCH ×2 (08:35→21:00)
[2017-07-25] MEDS: SODIUM CHLORIDE 0.9% FLUSH 10 ML FLUSH IVF SCH (08:35)
[2017-07-25] MEDS: FERROUS SULFATE 325 MG (65 MG ELEMENTAL IRON) TAB PO SCH (08:35)
[2017-07-25] MEDS: SODIUM HYPOCHLORITE 0.25% 500 ML BTL TOPICAL SCH ×2 (08:35→21:00)
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
[2017-07-25 12:00] VITALS: BP 115/65; PULSE 86; RESP 18; TEMP 97.6; O2SAT 96
[2017-07-25] MEDS: MORPHINE SULFATE 2 MG/ML SYRINGE IV PUSH PRN ×2 (12:59→22:08)
[2017-07-25] MEDS: HYDROmorphone HCL 4 MG TAB PO PRN ×2 (13:00→22:59)
[2017-07-25 16:00] VITALS: BP 117/72; PULSE 87; RESP 18; TEMP 97.9; O2SAT 98
[2017-07-25] MEDS: ENOXAPARIN SODIUM 40 MG/0.4 ML SYRINGE SQ SCH (18:19)
[2017-07-25 20:00] VITALS: BP 119/76; PULSE 95; RESP 16; TEMP 97.9; O2SAT 97
[2017-07-25] MEDS: MIRTAZAPINE 15 MG TAB PO SCH (22:07)
[2017-07-26] VITALS: BP 113/78; PULSE 99; RESP 18; TEMP 97.6; O2SAT 96
[2017-07-26 08:00] VITALS: BP 110/71; PULSE 85; RESP 18; TEMP 97.9; O2SAT 96
[2017-07-26] MEDS: SODIUM HYPOCHLORITE 0.25% 500 ML BTL TOPICAL SCH (09:00)
[2017-07-26] MEDS: SODIUM CHLORIDE 0.9% FLUSH 10 ML FLUSH IVF SCH (09:00)
[2017-07-26] MEDS: ZINC OXIDE 40% OINT 60 GM TUBE TOPICAL SCH ×2 (09:00→21:48)
[2017-07-26] MEDS: CYPROHEPTADINE HCL 4 MG TAB PO SCH ×2 (10:10→21:45)
[2017-07-26] MEDS: CYCLOBENZAPRINE HCL 10 MG TAB PO SCH ×3 (10:10→18:37)
[2017-07-26] MEDS: PYRIDOXINE HCL 50 MG TAB PO SCH (10:10)
[2017-07-26] MEDS: GABAPENTIN 400 MG CAP PO SCH ×3 (10:10→18:37)
[2017-07-26] MEDS: SODIUM CHLORIDE 0.9% FLUSH 10 ML FLUSH IV FLUSH SCH ×2 (10:11→21:45)
[2017-07-26 12:00] VITALS: BP 108/68; PULSE 85; RESP 18; TEMP 97.8; O2SAT 98
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
[2017-07-26] MEDS: MORPHINE SULFATE 2 MG/ML SYRINGE IV PUSH PRN (13:46)
[2017-07-26] MEDS: HYDROmorphone HCL 4 MG TAB PO PRN (13:49)
[2017-07-26] MEDS: LACTOBACILLUS ACIDOPHILUS TAB PO SCH ×2 (13:58→21:45)
[2017-07-26] MEDS: DOCUSATE SODIUM 50 MG/SENNA 8.6 MG TAB PO SCH ×2 (13:58→21:45)
[2017-07-26] MEDS: FERROUS SULFATE 325 MG (65 MG ELEMENTAL IRON) TAB PO SCH (13:58)
[2017-07-26 16:00] VITALS: BP_SYST 124; BP_SYST 131; BP_DIAS 63; BP_DIAS 73; PULSE 115; PULSE 92; RESP 18; RESP 20; TEMP 97.6; TEMP 97.9; O2SAT 96
--- NOTE | 2017-07-26 17:20 | PD.WCN.NOT ---
Wound Consult Description: Follow up for pressure injuries to L trochanter, sacral and posterior scrotal wounds Communicated with: ARA Coon Recommendation: Please follow orders written by Doctor Knight. Additional Information: Patient was seen on for follow up of wounds to L trochanter, sacral and posterior scrotal wounds around 1230. Patient seen with Doctor Antonia and consumer loan underwriter. Patient able to turn self with minimal assistance from consumer loan underwriter to R side for wound assessment. Removed dressings to reveal wounds to L Trochanter, Sacrum and Scrotal areas. L trochanter wound measures 2cm x 4cm x 0.6cm. Undermining is noted between3 and 5 o'clock deepest at 4 o'clock measuring 5.1cm. Wound presents with ~40% yellow adherent tissue and ~60% red tissue.Wound drainage is minimal and sero-sanguinous without odor. wound margins are noted with epibole and rolled thickened scar tissue.Applied Dakin's solution 0.25% soaked gauze to wound bed and left in place for 5 minutes before removing and applying Purocol (collagen) dressing to wound bed and packed in undermined areas. Covered with dry cover dressing.Skin prep was applied before applying dressing. Sacral wound presents with ~100% pink tissue and measures 0.6cm x 0.5cm x 0.6 cm. Wound has scant sero-sanguinous drainage that is with out odor.Wound was cleansed with normal saline before patting dry. packed wound with purocol ( collagen)dressing and covered with bordered gauze. Skin prep was applied before applying dressing. Scrotal wound presents with 100% beefy red granulation tissue that has moderate sero-sanguinous drainage with mild odor. Wound measures 6.5cm x 8.7cm x 1.5cm. Epibole is noted to wound margins that are also uneven.Cleansed wound with normal saline. Applied 0.25% Dakin's moistened gauze packed in wound bed and covered with dry 4x4 gauze packed in wound bed. Covered with ABD pad, that was secured with ABD pad and mesh underwear. Skin prep was applied generously to periwound before applying dressing. Sujey Varner [facility] Jul 26, 2017 17:20
[2017-07-26] MEDS: ENOXAPARIN SODIUM 40 MG/0.4 ML SYRINGE SQ SCH (18:37)
[2017-07-26 20:00] VITALS: BP 133/86; PULSE 101; RESP 18; TEMP 98.1; O2SAT 96
[2017-07-26] MEDS: MIRTAZAPINE 15 MG TAB PO SCH (21:45)
[2017-07-27] VITALS (7 sets, daily range): BP systolic 109–125; BP diastolic 58–77; PULSE 86–106; RESP 16–20; TEMP 97.1–98.2; O2SAT 95–98
[2017-07-27] MEDS: SODIUM CHLORIDE 0.9% FLUSH 10 ML FLUSH IVF SCH (09:00)
[2017-07-27] MEDS: ZINC OXIDE 40% OINT 60 GM TUBE TOPICAL SCH ×2 (09:00→20:36)
[2017-07-27] MEDS: SODIUM HYPOCHLORITE 0.25% 500 ML BTL TOPICAL SCH (09:00)
[2017-07-27] MEDS: SODIUM CHLORIDE 0.9% FLUSH 10 ML FLUSH IV FLUSH SCH ×2 (09:00→20:36)
[2017-07-27] MEDS: DOCUSATE SODIUM 50 MG/SENNA 8.6 MG TAB PO SCH ×2 (10:27→20:34)
[2017-07-27] MEDS: PYRIDOXINE HCL 50 MG TAB PO SCH (10:27)
[2017-07-27] MEDS: LACTOBACILLUS ACIDOPHILUS TAB PO SCH ×2 (10:27→20:34)
[2017-07-27] MEDS: GABAPENTIN 400 MG CAP PO SCH ×3 (10:27→18:26)
[2017-07-27] MEDS: FERROUS SULFATE 325 MG (65 MG ELEMENTAL IRON) TAB PO SCH (10:28)
[2017-07-27] MEDS: CYCLOBENZAPRINE HCL 10 MG TAB PO SCH ×3 (10:28→18:27)
[2017-07-27] MEDS: CYPROHEPTADINE HCL 4 MG TAB PO SCH ×2 (10:28→20:34)
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
[2017-07-27] MEDS: ENOXAPARIN SODIUM 40 MG/0.4 ML SYRINGE SQ SCH (18:27)
[2017-07-27] MEDS: MORPHINE SULFATE 2 MG/ML SYRINGE IV PUSH PRN (18:28)
[2017-07-27] MEDS: MIRTAZAPINE 15 MG TAB PO SCH (20:34)
[2017-07-27] MEDS: HYDROmorphone HCL 4 MG TAB PO PRN (20:42)
[2017-07-28] MEDS: HYDROmorphone HCL 4 MG TAB PO PRN ×3 (04:24→18:14)
[2017-07-28 08:00] VITALS: BP 115/72; PULSE 95; RESP 18; TEMP 97.1; O2SAT 96
[2017-07-28] MEDS: SODIUM CHLORIDE 0.9% FLUSH 10 ML FLUSH IV FLUSH SCH ×2 (09:00→21:42)
[2017-07-28] MEDS: ZINC OXIDE 40% OINT 60 GM TUBE TOPICAL SCH ×2 (09:00→21:00)
[2017-07-28] MEDS: SODIUM CHLORIDE 0.9% FLUSH 10 ML FLUSH IVF SCH (09:00)
[2017-07-28] MEDS: SODIUM HYPOCHLORITE 0.25% 500 ML BTL TOPICAL SCH (09:00)
[2017-07-28] MEDS: LACTOBACILLUS ACIDOPHILUS TAB PO SCH ×2 (09:45→21:41)
[2017-07-28] MEDS: DOCUSATE SODIUM 50 MG/SENNA 8.6 MG TAB PO SCH ×2 (09:45→21:41)
[2017-07-28] MEDS: CYPROHEPTADINE HCL 4 MG TAB PO SCH ×2 (09:45→21:41)
[2017-07-28] MEDS: PYRIDOXINE HCL 50 MG TAB PO SCH (09:45)
[2017-07-28] MEDS: GABAPENTIN 400 MG CAP PO SCH ×3 (09:45→18:13)
[2017-07-28] MEDS: CYCLOBENZAPRINE HCL 10 MG TAB PO SCH ×3 (09:45→18:13)
[2017-07-28] MEDS: FERROUS SULFATE 325 MG (65 MG ELEMENTAL IRON) TAB PO SCH (09:45)
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
[2017-07-28 12:00] VITALS: BP 118/66; PULSE 93; RESP 18; TEMP 97.7; O2SAT 97
[2017-07-28] MEDS: MORPHINE SULFATE 2 MG/ML SYRINGE IV PUSH PRN (13:15)
[2017-07-28 16:00] VITALS: BP 118/79; PULSE 89; RESP 18; TEMP 97.7; O2SAT 98
[2017-07-28] MEDS: ENOXAPARIN SODIUM 40 MG/0.4 ML SYRINGE SQ SCH (18:14)
[2017-07-28 20:00] VITALS: BP 120/73; PULSE 99; RESP 17; TEMP 98.3; O2SAT 96
[2017-07-28] MEDS: MIRTAZAPINE 15 MG TAB PO SCH (21:41)
[2017-07-29 08:00] VITALS: BP 115/73; PULSE 95; RESP 18; TEMP 97.2; O2SAT 98
[2017-07-29] MEDS: SODIUM HYPOCHLORITE 0.25% 500 ML BTL TOPICAL SCH (09:00)
[2017-07-29] MEDS: ZINC OXIDE 40% OINT 60 GM TUBE TOPICAL SCH ×2 (09:00→21:00)
[2017-07-29] MEDS: SODIUM CHLORIDE 0.9% FLUSH 10 ML FLUSH IVF SCH (09:00)
[2017-07-29] MEDS: SODIUM CHLORIDE 0.9% FLUSH 10 ML FLUSH IV FLUSH SCH ×2 (09:00→21:00)
[2017-07-29] MEDS: PYRIDOXINE HCL 50 MG TAB PO SCH (09:54)
[2017-07-29] MEDS: FERROUS SULFATE 325 MG (65 MG ELEMENTAL IRON) TAB PO SCH (09:54)
[2017-07-29] MEDS: LACTOBACILLUS ACIDOPHILUS TAB PO SCH ×2 (09:55→21:01)
[2017-07-29] MEDS: CYPROHEPTADINE HCL 4 MG TAB PO SCH ×2 (09:55→21:01)
[2017-07-29] MEDS: CYCLOBENZAPRINE HCL 10 MG TAB PO SCH ×3 (09:55→17:42)
[2017-07-29] MEDS: GABAPENTIN 400 MG CAP PO SCH ×3 (09:55→17:42)
[2017-07-29] MEDS: DOCUSATE SODIUM 50 MG/SENNA 8.6 MG TAB PO SCH ×2 (09:55→21:01)
[2017-07-29] MEDS: HYDROmorphone HCL 4 MG TAB PO PRN ×2 (09:55→21:01)
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
[2017-07-29] MEDS: MORPHINE SULFATE 2 MG/ML SYRINGE IV PUSH PRN (11:35)
[2017-07-29 12:00] VITALS: BP 121/67; PULSE 86; RESP 18; TEMP 97.9; O2SAT 98
[2017-07-29 16:00] VITALS: BP 119/71; PULSE 81; RESP 18; TEMP 98.1; O2SAT 98
[2017-07-29] MEDS: ENOXAPARIN SODIUM 40 MG/0.4 ML SYRINGE SQ SCH (17:42)
[2017-07-29 20:00] VITALS: BP 130/76; PULSE 93; RESP 18; TEMP 98.2; O2SAT 95
[2017-07-29] MEDS: MIRTAZAPINE 15 MG TAB PO SCH (21:01)
[2017-07-30 04:00] VITALS: TEMP 97.2
[2017-07-30] MEDS: HYDROmorphone HCL 4 MG TAB PO PRN ×2 (06:20→17:44)
[2017-07-30 06:26] LABS: AUTOMATED NEUTROPHIL # 3.9 TH/MM3 (1.8-7.7); BASOPHIL % 0.4 % (0.0-2.0); EOSINOPHIL # 0.4 TH/MM3 (0-0.4); EOSINOPHIL % 4.2 % (0.0-4.0); HEMATOCRIT 35.1 % (39.0-51.0); HEMOGLOBIN 11.8 GM/DL (13.0-17.0); LYMPH % 43.4 % (9.0-44.0); LYMPHOCYTE # 3.6 TH/MM3 (1.0-4.8); MEAN CORPUSCULAR HEMOGLOBIN 27.9 PG (27.0-34.0); MEAN CORPUSCULAR HGB CONC 33.6 % (32.0-36.0); MEAN PLATELET VOLUME 6.2 FL (7.0-11.0); MONO % 5.5 % (0.0-8.0); MONOCYTE # 0.5 TH/MM3 (0-0.9); NEUT % 46.5 % (16.0-70.0); PLATELET COUNT 451 TH/MM3 (150-450); RED BLOOD COUNT 4.23 MIL/MM3 (4.50-5.90); RED CELL DISTRIBUTION WIDTH 19.5 % (11.6-17.2); WHITE BLOOD COUNT 8.4 TH/MM3 (4.0-11.0)
[2017-07-30 06:41] LABS: BICARBONATE 25.6 MEQ/L (21.0-32.0); CALCIUM 8.9 MG/DL (8.5-10.1); CREATININE 0.62 MG/DL (0.60-1.30)
[2017-07-30 08:00] VITALS: BP 115/61; PULSE 82; RESP 16; TEMP 97.2; O2SAT 98
[2017-07-30] MEDS: SODIUM CHLORIDE 0.9% FLUSH 10 ML FLUSH IVF SCH (09:37)
[2017-07-30] MEDS: SODIUM CHLORIDE 0.9% FLUSH 10 ML FLUSH IV FLUSH SCH ×2 (09:37→22:43)
[2017-07-30] MEDS: GABAPENTIN 400 MG CAP PO SCH ×3 (09:38→17:44)
[2017-07-30] MEDS: FERROUS SULFATE 325 MG (65 MG ELEMENTAL IRON) TAB PO SCH (09:38)
[2017-07-30] MEDS: PYRIDOXINE HCL 50 MG TAB PO SCH (09:38)
[2017-07-30] MEDS: LACTOBACILLUS ACIDOPHILUS TAB PO SCH ×2 (09:38→22:39)
[2017-07-30] MEDS: DOCUSATE SODIUM 50 MG/SENNA 8.6 MG TAB PO SCH ×2 (09:38→22:40)
[2017-07-30] MEDS: CYPROHEPTADINE HCL 4 MG TAB PO SCH (09:38)
[2017-07-30] MEDS: CYCLOBENZAPRINE HCL 10 MG TAB PO SCH ×3 (09:38→17:45)
[2017-07-30] MEDS: ZINC OXIDE 40% OINT 60 GM TUBE TOPICAL SCH ×2 (09:39→21:00)
[2017-07-30] MEDS: SODIUM HYPOCHLORITE 0.25% 500 ML BTL TOPICAL SCH (09:39)
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
[2017-07-30 12:00] VITALS: BP 114/75; PULSE 82; RESP 18; TEMP 97.6; O2SAT 98
[2017-07-30 16:00] VITALS: BP 112/67; PULSE 88; RESP 18; TEMP 97.5; O2SAT 95
[2017-07-30] MEDS: ENOXAPARIN SODIUM 40 MG/0.4 ML SYRINGE SQ SCH (16:07)
[2017-07-30] MEDS: MORPHINE SULFATE 2 MG/ML SYRINGE IV PUSH PRN (16:08)
[2017-07-30 20:00] VITALS: BP 129/77; PULSE 112; RESP 18; TEMP 97.7; O2SAT 93
[2017-07-30] MEDS: MIRTAZAPINE 15 MG TAB PO SCH (22:40)
[2017-07-31] VITALS: BP 126/83; PULSE 113; RESP 18; TEMP 98.8; O2SAT 94
[2017-07-31 05:00] VITALS: BP 128/78; PULSE 110; RESP 18; TEMP 98.2; O2SAT 94
[2017-07-31 08:30] VITALS: BP 116/59; PULSE 91; RESP 20; TEMP 97.3; O2SAT 97
[2017-07-31] MEDS: SODIUM CHLORIDE 0.9% FLUSH 10 ML FLUSH IV FLUSH SCH ×2 (08:58→22:35)
[2017-07-31] MEDS: SODIUM CHLORIDE 0.9% FLUSH 10 ML FLUSH IVF SCH (08:58)
[2017-07-31] MEDS: ZINC OXIDE 40% OINT 60 GM TUBE TOPICAL SCH ×2 (09:00→22:36)
[2017-07-31] MEDS: SODIUM HYPOCHLORITE 0.25% 500 ML BTL TOPICAL SCH (09:00)
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
[2017-07-31] MEDS: FERROUS SULFATE 325 MG (65 MG ELEMENTAL IRON) TAB PO SCH (09:28)
[2017-07-31] MEDS: PYRIDOXINE HCL 50 MG TAB PO SCH (09:29)
[2017-07-31] MEDS: LACTOBACILLUS ACIDOPHILUS TAB PO SCH ×2 (09:29→22:34)
[2017-07-31] MEDS: GABAPENTIN 400 MG CAP PO SCH ×3 (09:29→17:43)
[2017-07-31] MEDS: CYCLOBENZAPRINE HCL 10 MG TAB PO SCH ×3 (09:29→17:43)
[2017-07-31] MEDS: DOCUSATE SODIUM 50 MG/SENNA 8.6 MG TAB PO SCH ×2 (09:29→22:34)
[2017-07-31 12:04] VITALS: BP 112/73; PULSE 91; RESP 20; TEMP 98; O2SAT 97
[2017-07-31] MEDS: CYPROHEPTADINE HCL 4 MG TAB PO SCH ×3 (12:41→22:34)
[2017-07-31] MEDS: HYDROmorphone HCL 4 MG TAB PO PRN ×2 (15:23)
[2017-07-31 17:17] VITALS: BP 125/88; PULSE 115; RESP 20; TEMP 98.2; O2SAT 98
[2017-07-31] MEDS: ENOXAPARIN SODIUM 40 MG/0.4 ML SYRINGE SQ SCH (17:44)
[2017-07-31 20:00] VITALS: BP 116/67; PULSE 110; RESP 16; TEMP 98.3; O2SAT 94
[2017-07-31] MEDS: MORPHINE SULFATE 2 MG/ML SYRINGE IV PUSH PRN (22:33)
[2017-07-31] MEDS: MIRTAZAPINE 15 MG TAB PO SCH (22:34)
[2017-08-01] VITALS: BP 116/70; PULSE 105; RESP 17; TEMP 98.1; O2SAT 94
[2017-08-01 04:00] VITALS: BP 110/65; PULSE 88; RESP 19; TEMP 97.6; O2SAT 95
[2017-08-01 08:00] VITALS: BP 118/76; PULSE 94; RESP 17; TEMP 97.3; O2SAT 95
[2017-08-01] MEDS: DOCUSATE SODIUM 50 MG/SENNA 8.6 MG TAB PO SCH ×2 (08:36→20:43)
[2017-08-01] MEDS: CYCLOBENZAPRINE HCL 10 MG TAB PO SCH ×3 (08:36→18:34)
[2017-08-01] MEDS: CYPROHEPTADINE HCL 4 MG TAB PO SCH ×2 (08:36→20:43)
[2017-08-01] MEDS: FERROUS SULFATE 325 MG (65 MG ELEMENTAL IRON) TAB PO SCH (08:36)
[2017-08-01] MEDS: PYRIDOXINE HCL 50 MG TAB PO SCH (08:36)
[2017-08-01] MEDS: GABAPENTIN 400 MG CAP PO SCH ×3 (08:37→18:34)
[2017-08-01] MEDS: SODIUM CHLORIDE 0.9% FLUSH 10 ML FLUSH IV FLUSH SCH ×2 (08:37→20:44)
[2017-08-01] MEDS: SODIUM HYPOCHLORITE 0.25% 500 ML BTL TOPICAL SCH (08:38)
[2017-08-01] MEDS: ZINC OXIDE 40% OINT 60 GM TUBE TOPICAL SCH ×2 (08:38→20:44)
[2017-08-01] MEDS: LACTOBACILLUS ACIDOPHILUS TAB PO SCH ×2 (08:38→20:43)
[2017-08-01] MEDS: SODIUM CHLORIDE 0.9% FLUSH 10 ML FLUSH IVF SCH (08:48)
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
[2017-08-01 12:00] VITALS: BP 118/68; PULSE 102; RESP 17; TEMP 97.7; O2SAT 94
[2017-08-01 16:00] VITALS: BP 106/66; PULSE 96; RESP 17; TEMP 97.7; O2SAT 94
[2017-08-01] MEDS: ENOXAPARIN SODIUM 40 MG/0.4 ML SYRINGE SQ SCH (16:13)
[2017-08-01] MEDS: MORPHINE SULFATE 2 MG/ML SYRINGE IV PUSH PRN (19:18)
[2017-08-01 20:00] VITALS: BP 120/75; PULSE 101; RESP 17; TEMP 97.6; O2SAT 94
[2017-08-01] MEDS: MIRTAZAPINE 15 MG TAB PO SCH (20:43)
[2017-08-01] MEDS: HYDROmorphone HCL 4 MG TAB PO PRN (20:49)
[2017-08-02] VITALS: BP 131/79; PULSE 103; RESP 17; TEMP 97.8; O2SAT 95
[2017-08-02 08:00] VITALS: BP 115/62; PULSE 86; RESP 18; TEMP 97.8; O2SAT 98
[2017-08-02] MEDS: LACTOBACILLUS ACIDOPHILUS TAB PO SCH ×2 (09:00→22:43)
[2017-08-02] MEDS: PYRIDOXINE HCL 50 MG TAB PO SCH (09:00)
[2017-08-02] MEDS: SODIUM HYPOCHLORITE 0.25% 500 ML BTL TOPICAL SCH (09:00)
[2017-08-02] MEDS: ZINC OXIDE 40% OINT 60 GM TUBE TOPICAL SCH ×2 (09:00→21:00)
[2017-08-02] MEDS: CYPROHEPTADINE HCL 4 MG TAB PO SCH ×2 (10:28→22:43)
[2017-08-02] MEDS: FERROUS SULFATE 325 MG (65 MG ELEMENTAL IRON) TAB PO SCH (10:28)
[2017-08-02] MEDS: GABAPENTIN 400 MG CAP PO SCH ×3 (10:28→18:27)
[2017-08-02] MEDS: CYCLOBENZAPRINE HCL 10 MG TAB PO SCH ×3 (10:29→18:27)
[2017-08-02] MEDS: DOCUSATE SODIUM 50 MG/SENNA 8.6 MG TAB PO SCH ×2 (10:29→22:43)
[2017-08-02] MEDS: HYDROmorphone HCL 4 MG TAB PO PRN (10:29)
[2017-08-02] MEDS: SODIUM CHLORIDE 0.9% FLUSH 10 ML FLUSH IVF SCH (10:35)
[2017-08-02] MEDS: SODIUM CHLORIDE 0.9% FLUSH 10 ML FLUSH IV FLUSH SCH ×2 (10:35→21:00)
[2017-08-02] MEDS: MORPHINE SULFATE 2 MG/ML SYRINGE IV PUSH PRN ×2 (11:30→22:45)
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
[2017-08-02 12:07] VITALS: BP 108/71; PULSE 97; RESP 18; TEMP 97.8; O2SAT 94
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
[2017-08-02 16:02] VITALS: BP_SYST 108; BP_SYST 120; BP_DIAS 71; BP_DIAS 77; PULSE 86; PULSE 97; RESP 18; TEMP 97.7; TEMP 97.8; O2SAT 94; O2SAT 95
--- NOTE | 2017-08-02 16:33 | PD.WCN.NOT ---
Wound Consult Description: Follow up care for Sacral/Trochanter wounds Communicated with: Recommendation: Please follow orders written by Doctor Knight. Additional Information: Patient was seen today on by narrative writer and for follow up of Sacrum,Ischial and left trochanter. Sacral wound present with 100% pink tissue bed measuring 0.8cm x 0.7cm x 0.4cm cleansed with normal saline Puracol to wound base covered with calcium alginate and secured with boarder gauze. Bilaterial Ischial wounds measure 6.2cm 10.8cm x 4.1cm Right ischial depth is 1.5cm wound base is ~ 100% pink/red tissue.wound cleansed with normal saline calcium alginate applied to wound base covered with ABD secured with paper tape. Left trochanter measures 1.6cm x 6.2cm 2.1cm ~60% pink tissue present 40% beefy red.Cleansed with normal saline pat dry Puracol to wound base covered with calcium alginate and covered with boarder dressing. All dressing dated and signed. Quique Davidson [facility] Aug 02, 2017 16:33
[2017-08-02] MEDS: ENOXAPARIN SODIUM 40 MG/0.4 ML SYRINGE SQ SCH (18:28)
[2017-08-02 20:00] VITALS: BP 118/69; PULSE 106; RESP 20; TEMP 98.5; O2SAT 94
[2017-08-02] MEDS: MIRTAZAPINE 15 MG TAB PO SCH (22:43)
[2017-08-03] VITALS: BP 112/72; PULSE 102; RESP 16; TEMP 98.3; O2SAT 96
[2017-08-03] MEDS: HYDROmorphone HCL 4 MG TAB PO PRN ×2 (01:19→18:47)
[2017-08-03 08:04] VITALS: BP 131/81; PULSE 98; RESP 21; TEMP 97.8; O2SAT 96
[2017-08-03] MEDS: ZINC OXIDE 40% OINT 60 GM TUBE TOPICAL SCH ×2 (09:00→20:41)
[2017-08-03] MEDS: CYPROHEPTADINE HCL 4 MG TAB PO SCH ×2 (11:04→20:40)
[2017-08-03] MEDS: CYCLOBENZAPRINE HCL 10 MG TAB PO SCH ×3 (11:04→18:47)
[2017-08-03] MEDS: PYRIDOXINE HCL 50 MG TAB PO SCH (11:04)
[2017-08-03] MEDS: LACTOBACILLUS ACIDOPHILUS TAB PO SCH ×2 (11:04→20:41)
[2017-08-03] MEDS: FERROUS SULFATE 325 MG (65 MG ELEMENTAL IRON) TAB PO SCH (11:05)
[2017-08-03] MEDS: DOCUSATE SODIUM 50 MG/SENNA 8.6 MG TAB PO SCH ×2 (11:05→20:40)
[2017-08-03] MEDS: SODIUM CHLORIDE 0.9% FLUSH 10 ML FLUSH IV FLUSH SCH ×2 (11:05→20:40)
[2017-08-03] MEDS: GABAPENTIN 400 MG CAP PO SCH ×3 (11:05→18:47)
[2017-08-03] MEDS: SODIUM CHLORIDE 0.9% FLUSH 10 ML FLUSH IVF SCH (11:05)
[2017-08-03] MEDS: SODIUM HYPOCHLORITE 0.25% 500 ML BTL TOPICAL SCH (11:11)
[2017-08-03] MEDS: MORPHINE SULFATE 2 MG/ML SYRINGE IV PUSH PRN ×2 (14:04→20:41)
[2017-08-03 14:05] VITALS: BP 126/77; PULSE 95; RESP 20; TEMP 98.2; O2SAT 96
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
[2017-08-03] MEDS: ENOXAPARIN SODIUM 40 MG/0.4 ML SYRINGE SQ SCH (18:47)
[2017-08-03 20:00] VITALS: BP 157/72; PULSE 109; RESP 20; TEMP 98.1; O2SAT 96
[2017-08-03] MEDS: MIRTAZAPINE 15 MG TAB PO SCH (20:40)
[2017-08-04] VITALS: BP 116/82; PULSE 104; RESP 20; TEMP 98.8; O2SAT 93
[2017-08-04] MEDS: HYDROmorphone HCL 4 MG TAB PO PRN ×2 (01:51→22:22)
[2017-08-04 04:00] VITALS: BP 120/77; PULSE 93; RESP 20; TEMP 97.4; O2SAT 94
[2017-08-04 08:05] VITALS: BP 116/56; PULSE 90; RESP 20; TEMP 97.2; O2SAT 94
[2017-08-04] MEDS: LACTOBACILLUS ACIDOPHILUS TAB PO SCH ×2 (09:00→22:22)
[2017-08-04] MEDS: DOCUSATE SODIUM 50 MG/SENNA 8.6 MG TAB PO SCH ×2 (09:33→22:22)
[2017-08-04] MEDS: CYPROHEPTADINE HCL 4 MG TAB PO SCH ×2 (09:33→21:00)
[2017-08-04] MEDS: PYRIDOXINE HCL 50 MG TAB PO SCH (09:33)
[2017-08-04] MEDS: FERROUS SULFATE 325 MG (65 MG ELEMENTAL IRON) TAB PO SCH (09:33)
[2017-08-04] MEDS: SODIUM CHLORIDE 0.9% FLUSH 10 ML FLUSH IVF SCH (09:33)
[2017-08-04] MEDS: GABAPENTIN 400 MG CAP PO SCH ×3 (09:33→17:30)
[2017-08-04] MEDS: CYCLOBENZAPRINE HCL 10 MG TAB PO SCH ×3 (09:33→17:30)
[2017-08-04] MEDS: SODIUM CHLORIDE 0.9% FLUSH 10 ML FLUSH IV FLUSH SCH ×2 (09:34→22:24)
[2017-08-04] MEDS: SODIUM HYPOCHLORITE 0.25% 500 ML BTL TOPICAL SCH (09:38)
[2017-08-04] MEDS: ZINC OXIDE 40% OINT 60 GM TUBE TOPICAL SCH ×2 (09:39→21:00)
[2017-08-04 12:04] VITALS: BP 134/73; PULSE 83; RESP 20; TEMP 97.4; O2SAT 96
[2017-08-04] MEDS: MORPHINE SULFATE 2 MG/ML SYRINGE IV PUSH PRN (12:24)
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
[2017-08-04] MEDS ORDERED: ESCITALOPRAM OXALATE 10 MG TAB PO ONE (12:45)
[2017-08-04] MEDS: ENOXAPARIN SODIUM 40 MG/0.4 ML SYRINGE SQ SCH (17:31)
[2017-08-04 18:04] VITALS: BP 132/58; PULSE 88; RESP 20; TEMP 97.2; O2SAT 95
[2017-08-04 20:00] VITALS: BP 131/76; PULSE 101; RESP 20; TEMP 98.7; O2SAT 95
[2017-08-04] MEDS: MIRTAZAPINE 15 MG TAB PO SCH (22:22)
[2017-08-05] VITALS: BP 121/69; PULSE 95; RESP 18; TEMP 97.7; O2SAT 93
[2017-08-05] MEDS: SODIUM CHLORIDE 0.9% FLUSH 10 ML FLUSH IV FLUSH PRN (00:10)
[2017-08-05] MEDS: MORPHINE SULFATE 2 MG/ML SYRINGE IV PUSH PRN ×3 (00:10→21:47)
[2017-08-05 08:04] VITALS: BP 111/66; PULSE 104; RESP 20; TEMP 97.7; O2SAT 94
[2017-08-05] MEDS: SODIUM CHLORIDE 0.9% FLUSH 10 ML FLUSH IV FLUSH SCH ×2 (09:00→21:47)
[2017-08-05] MEDS: SODIUM HYPOCHLORITE 0.25% 500 ML BTL TOPICAL SCH (09:00)
[2017-08-05] MEDS: ZINC OXIDE 40% OINT 60 GM TUBE TOPICAL SCH ×2 (09:00→21:47)
[2017-08-05] MEDS: FERROUS SULFATE 325 MG (65 MG ELEMENTAL IRON) TAB PO SCH (10:01)
[2017-08-05] MEDS: CYPROHEPTADINE HCL 4 MG TAB PO SCH ×2 (10:01→21:46)
[2017-08-05] MEDS: ESCITALOPRAM OXALATE 10 MG TAB PO SCH (10:01)
[2017-08-05] MEDS: GABAPENTIN 400 MG CAP PO SCH ×3 (10:01→17:22)
[2017-08-05] MEDS: SODIUM CHLORIDE 0.9% FLUSH 10 ML FLUSH IVF SCH (10:01)
[2017-08-05] MEDS: CYCLOBENZAPRINE HCL 10 MG TAB PO SCH ×3 (10:02→17:22)
[2017-08-05] MEDS: LACTOBACILLUS ACIDOPHILUS TAB PO SCH ×2 (10:02→21:46)
[2017-08-05] MEDS: DOCUSATE SODIUM 50 MG/SENNA 8.6 MG TAB PO SCH ×2 (10:02→21:46)
[2017-08-05] MEDS: PYRIDOXINE HCL 50 MG TAB PO SCH (10:02)
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
[2017-08-05 12:04] VITALS: BP 112/65; PULSE 84; RESP 20; TEMP 97.7; O2SAT 94
[2017-08-05 16:04] VITALS: BP 121/72; PULSE 93; RESP 20; TEMP 97.8; O2SAT 95
[2017-08-05] MEDS: ENOXAPARIN SODIUM 40 MG/0.4 ML SYRINGE SQ SCH (17:22)
[2017-08-05 20:00] VITALS: BP 122/82; PULSE 106; RESP 18; TEMP 98.1; O2SAT 95
[2017-08-05] MEDS: MIRTAZAPINE 15 MG TAB PO SCH (21:46)
[2017-08-06] VITALS: BP 122/63; PULSE 93; RESP 16; TEMP 98.8; O2SAT 95
[2017-08-06 08:00] VITALS: BP 122/65; PULSE 90; RESP 18; TEMP 97.6; O2SAT 95
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
[2017-08-06] MEDS: GABAPENTIN 400 MG CAP PO SCH ×3 (10:48→18:21)
[2017-08-06] MEDS: PYRIDOXINE HCL 50 MG TAB PO SCH (10:48)
[2017-08-06] MEDS: ESCITALOPRAM OXALATE 10 MG TAB PO SCH (10:49)
[2017-08-06] MEDS: CYPROHEPTADINE HCL 4 MG TAB PO SCH ×2 (10:49→22:24)
[2017-08-06] MEDS: FERROUS SULFATE 325 MG (65 MG ELEMENTAL IRON) TAB PO SCH (10:49)
[2017-08-06] MEDS: LACTOBACILLUS ACIDOPHILUS TAB PO SCH ×3 (10:49→22:24)
[2017-08-06] MEDS: CYCLOBENZAPRINE HCL 10 MG TAB PO SCH ×3 (10:49→18:21)
[2017-08-06] MEDS: DOCUSATE SODIUM 50 MG/SENNA 8.6 MG TAB PO SCH ×2 (10:49→22:24)
[2017-08-06] MEDS: SODIUM CHLORIDE 0.9% FLUSH 10 ML FLUSH IV FLUSH SCH ×2 (10:50→22:25)
[2017-08-06] MEDS: SODIUM CHLORIDE 0.9% FLUSH 10 ML FLUSH IVF SCH (10:50)
[2017-08-06] MEDS: ZINC OXIDE 40% OINT 60 GM TUBE TOPICAL SCH ×2 (10:53→22:39)
[2017-08-06] MEDS: SODIUM HYPOCHLORITE 0.25% 500 ML BTL TOPICAL SCH (10:53)
[2017-08-06] MEDS: MORPHINE SULFATE 2 MG/ML SYRINGE IV PUSH PRN ×2 (10:56→22:36)
[2017-08-06 12:09] VITALS: BP 125/74; PULSE 86; RESP 18; TEMP 97.3; O2SAT 94
[2017-08-06 15:51] VITALS: BP 113/76; PULSE 93; RESP 18; TEMP 97.6; O2SAT 95
[2017-08-06] MEDS: ENOXAPARIN SODIUM 40 MG/0.4 ML SYRINGE SQ SCH (18:21)
[2017-08-06] MEDS: HYDROmorphone HCL 4 MG TAB PO PRN (18:24)
[2017-08-06 20:53] VITALS: BP 115/75; PULSE 103; RESP 18; TEMP 98.1; O2SAT 96
[2017-08-06] MEDS: MIRTAZAPINE 15 MG TAB PO SCH (22:24)
[2017-08-07 00:56] VITALS: BP 132/72; PULSE 105; RESP 18; TEMP 97.9; O2SAT 96
[2017-08-07 08:00] VITALS: BP 135/72; PULSE 92; RESP 20; TEMP 97.7; O2SAT 97
[2017-08-07] MEDS: SODIUM CHLORIDE 0.9% FLUSH 10 ML FLUSH IVF SCH (09:00)
[2017-08-07] MEDS: CYPROHEPTADINE HCL 4 MG TAB PO SCH ×2 (11:49→22:27)
[2017-08-07] MEDS: SODIUM CHLORIDE 0.9% FLUSH 10 ML FLUSH IV FLUSH SCH ×2 (11:49→22:29)
[2017-08-07] MEDS: FERROUS SULFATE 325 MG (65 MG ELEMENTAL IRON) TAB PO SCH (11:49)
[2017-08-07] MEDS: LACTOBACILLUS ACIDOPHILUS TAB PO SCH ×2 (11:49→21:00)
[2017-08-07] MEDS: CYCLOBENZAPRINE HCL 10 MG TAB PO SCH ×3 (11:49→18:10)
[2017-08-07] MEDS: ESCITALOPRAM OXALATE 10 MG TAB PO SCH (11:50)
[2017-08-07] MEDS: DOCUSATE SODIUM 50 MG/SENNA 8.6 MG TAB PO SCH ×2 (11:50→22:28)
[2017-08-07] MEDS: GABAPENTIN 400 MG CAP PO SCH ×3 (11:50→18:10)
[2017-08-07] MEDS: MORPHINE SULFATE 2 MG/ML SYRINGE IV PUSH PRN ×2 (11:51→22:29)
[2017-08-07] MEDS: ZINC OXIDE 40% OINT 60 GM TUBE TOPICAL SCH ×2 (11:52→22:29)
[2017-08-07] MEDS: SODIUM HYPOCHLORITE 0.25% 500 ML BTL TOPICAL SCH (11:52)
[2017-08-07] MEDS: PYRIDOXINE HCL 50 MG TAB PO SCH (11:53)
[2017-08-07 12:00] VITALS: BP 146/77; PULSE 101; RESP 20; TEMP 97.8; O2SAT 97
[2017-08-07] MEDS: HYDROmorphone HCL 4 MG TAB PO PRN ×2 (13:15→23:00)
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
[2017-08-07 16:00] VITALS: BP 136/82; PULSE 105; RESP 20; TEMP 98.3; O2SAT 93
[2017-08-07] MEDS: oxyCODONE/ACETAMINOPHEN 5 MG/325 MG TAB PO PRN (18:09)
[2017-08-07] MEDS: ENOXAPARIN SODIUM 40 MG/0.4 ML SYRINGE SQ SCH (18:10)
[2017-08-07 20:00] VITALS: BP 120/82; PULSE 105; RESP 21; TEMP 97.8; O2SAT 94
[2017-08-07] MEDS: MIRTAZAPINE 15 MG TAB PO SCH (22:28)
[2017-08-08] VITALS: BP 110/56; PULSE 104; RESP 20; TEMP 98.1; O2SAT 95
[2017-08-08 08:00] VITALS: BP 129/72; PULSE 94; RESP 20; TEMP 97.5; O2SAT 94
[2017-08-08] MEDS: CYCLOBENZAPRINE HCL 10 MG TAB PO SCH ×3 (09:41→17:37)
[2017-08-08] MEDS: SODIUM CHLORIDE 0.9% FLUSH 10 ML FLUSH IV FLUSH SCH ×2 (09:41→21:33)
[2017-08-08] MEDS: CYPROHEPTADINE HCL 4 MG TAB PO SCH ×2 (09:41→21:32)
[2017-08-08] MEDS: GABAPENTIN 400 MG CAP PO SCH ×3 (09:41→17:37)
[2017-08-08] MEDS: SODIUM CHLORIDE 0.9% FLUSH 10 ML FLUSH IVF SCH (09:41)
[2017-08-08] MEDS: FERROUS SULFATE 325 MG (65 MG ELEMENTAL IRON) TAB PO SCH (09:42)
[2017-08-08] MEDS: LACTOBACILLUS ACIDOPHILUS TAB PO SCH ×2 (09:42→21:32)
[2017-08-08] MEDS: DOCUSATE SODIUM 50 MG/SENNA 8.6 MG TAB PO SCH ×2 (09:42→21:00)
[2017-08-08] MEDS: ESCITALOPRAM OXALATE 10 MG TAB PO SCH (09:42)
[2017-08-08 12:00] VITALS: BP 130/80; PULSE 92; RESP 20; TEMP 97.7; O2SAT 94
[2017-08-08] MEDS: PYRIDOXINE HCL 50 MG TAB PO SCH (12:12)
[2017-08-08] MEDS: SODIUM HYPOCHLORITE 0.25% 500 ML BTL TOPICAL SCH (12:13)
[2017-08-08] MEDS: MORPHINE SULFATE 2 MG/ML SYRINGE IV PUSH PRN (12:13)
[2017-08-08] MEDS: ZINC OXIDE 40% OINT 60 GM TUBE TOPICAL SCH ×2 (12:13→21:00)
[2017-08-08] MEDS: HYDROmorphone HCL 4 MG TAB PO PRN ×2 (14:11→23:55)
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
[2017-08-08 16:00] VITALS: BP 138/88; PULSE 102; RESP 20; TEMP 98.2; O2SAT 93
[2017-08-08] MEDS: ENOXAPARIN SODIUM 40 MG/0.4 ML SYRINGE SQ SCH (17:38)
[2017-08-08 20:00] VITALS: BP 143/81; PULSE 118; RESP 20; TEMP 98.5; O2SAT 94
[2017-08-08] MEDS: MIRTAZAPINE 15 MG TAB PO SCH (21:32)
[2017-08-09] VITALS: BP 122/75; PULSE 112; RESP 19; TEMP 99; O2SAT 93
[2017-08-09 08:00] VITALS: BP 123/70; PULSE 97; RESP 18; TEMP 97.7; O2SAT 96
[2017-08-09] MEDS: SODIUM CHLORIDE 0.9% FLUSH 10 ML FLUSH IV FLUSH SCH ×2 (09:00→21:00)
[2017-08-09] MEDS: DOCUSATE SODIUM 50 MG/SENNA 8.6 MG TAB PO SCH ×2 (09:37→21:00)
[2017-08-09] MEDS: LACTOBACILLUS ACIDOPHILUS TAB PO SCH ×2 (09:37→21:12)
[2017-08-09] MEDS: GABAPENTIN 400 MG CAP PO SCH ×3 (09:37→17:07)
[2017-08-09] MEDS: FERROUS SULFATE 325 MG (65 MG ELEMENTAL IRON) TAB PO SCH (09:38)
[2017-08-09] MEDS: ESCITALOPRAM OXALATE 10 MG TAB PO SCH (09:38)
[2017-08-09] MEDS: CYCLOBENZAPRINE HCL 10 MG TAB PO SCH ×3 (09:38→17:07)
[2017-08-09] MEDS: PYRIDOXINE HCL 50 MG TAB PO SCH (09:38)
[2017-08-09] MEDS: SODIUM CHLORIDE 0.9% FLUSH 10 ML FLUSH IVF SCH (09:40)
[2017-08-09] MEDS: ZINC OXIDE 40% OINT 60 GM TUBE TOPICAL SCH ×2 (09:42→21:00)
[2017-08-09] MEDS: SODIUM HYPOCHLORITE 0.25% 500 ML BTL TOPICAL SCH (09:42)
[2017-08-09] MEDS: CYPROHEPTADINE HCL 4 MG TAB PO SCH ×2 (10:21→21:12)
[2017-08-09 12:00] VITALS: BP 112/71; PULSE 88; RESP 16; TEMP 98.2; O2SAT 96
[2017-08-09] MEDS: MORPHINE SULFATE 2 MG/ML SYRINGE IV PUSH PRN (12:55)
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
[2017-08-09] MEDS: HYDROmorphone HCL 4 MG TAB PO PRN ×2 (15:31→21:12)
[2017-08-09 16:00] VITALS: BP 120/74; PULSE 99; RESP 16; TEMP 97.3; O2SAT 98
--- NOTE | 2017-08-09 16:32 | PD.WCN.NOT ---
Wound Consult Description: Follow up care for Sacral/Trochanter wounds Communicated with: Little BULL[place], Dr. Knight Recommendation: Please follow orders written by Doctor Antonia. Additional Information: Patient was seen today on by advertising writer and for follow up of Sacrum,Ischial and left trochanter. Sacral wound present with 100% pink tissue bed measuring 0.8cm x 0.7cm x 0.4cm cleansed with normal saline Puracol to wound base covered with calcium alginate and secured with boarder gauze. Bilaterial Ischial wounds measure 6.2cm 10.8cm x 4.1cm Right ischial depth is 1.5cm wound base is ~ 100% pink/red tissue.wound cleansed with normal saline calcium alginate applied to wound base covered with ABD secured with paper tape. Left trochanter measures 1.6cm x 6.2cm 2.1cm ~60% pink tissue present 40% beefy red.Cleansed with normal saline pat dry Puracol to wound base covered with calcium alginate and covered with boarder dressing. All dressing dated and signed. Neg Pressure Wound Therapy Wound Location Wound Location: Follow up care for Sacral/Trochanter wounds Qu[facility] Aug 09, 2017 16:32
[2017-08-09] MEDS: ENOXAPARIN SODIUM 40 MG/0.4 ML SYRINGE SQ SCH (17:07)
[2017-08-09 20:00] VITALS: BP 135/86; PULSE 110; RESP 18; TEMP 98.3; O2SAT 96
[2017-08-09] MEDS: MIRTAZAPINE 15 MG TAB PO SCH (21:13)
[2017-08-10 08:00] VITALS: BP 117/93; PULSE 98; RESP 20; TEMP 98.1; O2SAT 95
[2017-08-10] MEDS: CYPROHEPTADINE HCL 4 MG TAB PO SCH ×2 (08:53→22:15)
[2017-08-10] MEDS: LACTOBACILLUS ACIDOPHILUS TAB PO SCH ×2 (08:53→22:15)
[2017-08-10] MEDS: CYCLOBENZAPRINE HCL 10 MG TAB PO SCH ×3 (08:53→17:38)
[2017-08-10] MEDS: FERROUS SULFATE 325 MG (65 MG ELEMENTAL IRON) TAB PO SCH (08:53)
[2017-08-10] MEDS: GABAPENTIN 400 MG CAP PO SCH ×3 (08:53→17:38)
[2017-08-10] MEDS: DOCUSATE SODIUM 50 MG/SENNA 8.6 MG TAB PO SCH ×2 (08:53→22:15)
[2017-08-10] MEDS: ESCITALOPRAM OXALATE 10 MG TAB PO SCH (08:53)
[2017-08-10] MEDS: PYRIDOXINE HCL 50 MG TAB PO SCH (08:54)
[2017-08-10] MEDS: SODIUM CHLORIDE 0.9% FLUSH 10 ML FLUSH IV FLUSH SCH ×2 (08:54→22:15)
[2017-08-10] MEDS: SODIUM CHLORIDE 0.9% FLUSH 10 ML FLUSH IVF SCH (08:54)
[2017-08-10 12:00] VITALS: BP 132/73; PULSE 97; RESP 20; TEMP 98.3; O2SAT 96
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
[2017-08-10] MEDS: SODIUM HYPOCHLORITE 0.25% 500 ML BTL TOPICAL SCH (13:34)
[2017-08-10] MEDS: ZINC OXIDE 40% OINT 60 GM TUBE TOPICAL SCH ×2 (13:34→21:00)
[2017-08-10 16:00] VITALS: BP 128/63; PULSE 105; RESP 20; TEMP 98.6; O2SAT 96
[2017-08-10] MEDS: ENOXAPARIN SODIUM 40 MG/0.4 ML SYRINGE SQ SCH (17:37)
[2017-08-10] MEDS: MORPHINE SULFATE 2 MG/ML SYRINGE IV PUSH PRN (17:38)
[2017-08-10 20:00] VITALS: BP 147/73; PULSE 115; RESP 20; TEMP 98.3; O2SAT 96
[2017-08-10] MEDS: HYDROmorphone HCL 4 MG TAB PO PRN (22:15)
[2017-08-10] MEDS: MIRTAZAPINE 15 MG TAB PO SCH (22:15)
[2017-08-11] VITALS: BP 126/79; PULSE 115; RESP 20; TEMP 98.4; O2SAT 97
[2017-08-11 08:00] VITALS: BP 125/81; PULSE 100; RESP 20; TEMP 98.3; O2SAT 96
[2017-08-11] MEDS: SODIUM CHLORIDE 0.9% FLUSH 10 ML FLUSH IVF SCH (08:11)
[2017-08-11] MEDS: SODIUM CHLORIDE 0.9% FLUSH 10 ML FLUSH IV FLUSH SCH ×2 (08:11→20:27)
[2017-08-11 12:00] VITALS: BP 123/74; PULSE 96; RESP 16; TEMP 98.1; O2SAT 97
[2017-08-11] MEDS: CYCLOBENZAPRINE HCL 10 MG TAB PO SCH ×3 (12:16→17:00)
[2017-08-11] MEDS: DOCUSATE SODIUM 50 MG/SENNA 8.6 MG TAB PO SCH ×2 (12:16→20:27)
[2017-08-11] MEDS: PYRIDOXINE HCL 50 MG TAB PO SCH (12:16)
[2017-08-11] MEDS: CYPROHEPTADINE HCL 4 MG TAB PO SCH ×2 (12:17→20:27)
[2017-08-11] MEDS: FERROUS SULFATE 325 MG (65 MG ELEMENTAL IRON) TAB PO SCH (12:17)
[2017-08-11] MEDS: ESCITALOPRAM OXALATE 10 MG TAB PO SCH (12:17)
[2017-08-11] MEDS: LACTOBACILLUS ACIDOPHILUS TAB PO SCH ×2 (12:17→20:26)
[2017-08-11] MEDS: SODIUM HYPOCHLORITE 0.25% 500 ML BTL TOPICAL SCH (12:17)
[2017-08-11] MEDS: GABAPENTIN 400 MG CAP PO SCH ×3 (12:17→17:00)
[2017-08-11] MEDS: ZINC OXIDE 40% OINT 60 GM TUBE TOPICAL SCH ×2 (12:18→20:29)
[2017-08-11] MEDS: HYDROmorphone HCL 4 MG TAB PO PRN ×2 (13:26→20:27)
[2017-08-11] MEDS: MORPHINE SULFATE 2 MG/ML SYRINGE IV PUSH PRN ×2 (15:07→20:33)
[2017-08-11 16:00] VITALS: BP 113/80; PULSE 105; RESP 18; TEMP 98.4; O2SAT 96
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
[2017-08-11] MEDS: ENOXAPARIN SODIUM 40 MG/0.4 ML SYRINGE SQ SCH (17:00)
[2017-08-11 20:00] VITALS: BP 134/93; PULSE 114; RESP 20; TEMP 98.1; O2SAT 95
[2017-08-11] MEDS: MIRTAZAPINE 15 MG TAB PO SCH (20:27)
[2017-08-12] VITALS: BP 131/78; PULSE 109; RESP 20; TEMP 97.6; O2SAT 95
[2017-08-12 08:00] VITALS: BP 119/78; PULSE 102; RESP 18; TEMP 98.2; O2SAT 94
[2017-08-12] MEDS: SODIUM CHLORIDE 0.9% FLUSH 10 ML FLUSH IVF SCH (09:00)
[2017-08-12] MEDS: ZINC OXIDE 40% OINT 60 GM TUBE TOPICAL SCH ×2 (09:00→21:00)
[2017-08-12] MEDS: CYPROHEPTADINE HCL 4 MG TAB PO SCH ×2 (10:09→21:31)
[2017-08-12] MEDS: GABAPENTIN 400 MG CAP PO SCH ×3 (10:09→17:21)
[2017-08-12] MEDS: CYCLOBENZAPRINE HCL 10 MG TAB PO SCH ×3 (10:09→17:21)
[2017-08-12] MEDS: LACTOBACILLUS ACIDOPHILUS TAB PO SCH ×2 (10:10→21:31)
[2017-08-12] MEDS: PYRIDOXINE HCL 50 MG TAB PO SCH (10:10)
[2017-08-12] MEDS: FERROUS SULFATE 325 MG (65 MG ELEMENTAL IRON) TAB PO SCH (10:10)
[2017-08-12] MEDS: DOCUSATE SODIUM 50 MG/SENNA 8.6 MG TAB PO SCH ×2 (10:10→21:31)
[2017-08-12] MEDS: ESCITALOPRAM OXALATE 10 MG TAB PO SCH (10:10)
[2017-08-12] MEDS: SODIUM CHLORIDE 0.9% FLUSH 10 ML FLUSH IV FLUSH SCH ×2 (10:15→21:31)
[2017-08-12 12:00] VITALS: BP 123/77; PULSE 90; RESP 18; TEMP 97.9; O2SAT 96
[2017-08-12] MEDS: MORPHINE SULFATE 2 MG/ML SYRINGE IV PUSH PRN ×2 (14:36→21:33)
[2017-08-12] MEDS: SODIUM HYPOCHLORITE 0.25% 500 ML BTL TOPICAL SCH (14:39)
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
[2017-08-12 16:00] VITALS: BP 127/79; PULSE 106; RESP 18; TEMP 97.8; O2SAT 96
[2017-08-12] MEDS: ENOXAPARIN SODIUM 40 MG/0.4 ML SYRINGE SQ SCH (17:22)
[2017-08-12 20:00] VITALS: BP 140/78; PULSE 118; RESP 20; TEMP 98.5; O2SAT 94
[2017-08-12] MEDS: MIRTAZAPINE 15 MG TAB PO SCH (21:31)
[2017-08-12] MEDS: HYDROmorphone HCL 4 MG TAB PO PRN (22:56)
[2017-08-13] VITALS: BP 130/79; PULSE 118; RESP 21; TEMP 98.5; O2SAT 94
[2017-08-13 08:00] VITALS: BP 118/79; PULSE 99; RESP 20; TEMP 97.6; O2SAT 94
[2017-08-13] MEDS: SODIUM CHLORIDE 0.9% FLUSH 10 ML FLUSH IVF SCH (09:00)
[2017-08-13] MEDS: ZINC OXIDE 40% OINT 60 GM TUBE TOPICAL SCH ×2 (09:00→21:06)
[2017-08-13] MEDS: SODIUM HYPOCHLORITE 0.25% 500 ML BTL TOPICAL SCH (09:00)
[2017-08-13] MEDS: SODIUM CHLORIDE 0.9% FLUSH 10 ML FLUSH IV FLUSH SCH ×2 (09:00→21:05)
[2017-08-13] MEDS: ESCITALOPRAM OXALATE 10 MG TAB PO SCH (09:56)
[2017-08-13] MEDS: DOCUSATE SODIUM 50 MG/SENNA 8.6 MG TAB PO SCH ×2 (09:56→21:04)
[2017-08-13] MEDS: CYCLOBENZAPRINE HCL 10 MG TAB PO SCH ×3 (09:56→18:12)
[2017-08-13] MEDS: FERROUS SULFATE 325 MG (65 MG ELEMENTAL IRON) TAB PO SCH (09:56)
[2017-08-13] MEDS: LACTOBACILLUS ACIDOPHILUS TAB PO SCH ×2 (09:56→21:04)
[2017-08-13] MEDS: GABAPENTIN 400 MG CAP PO SCH ×3 (09:57→18:12)
[2017-08-13] MEDS: CYPROHEPTADINE HCL 4 MG TAB PO SCH ×2 (09:57→21:04)
[2017-08-13] MEDS: PYRIDOXINE HCL 50 MG TAB PO SCH (09:57)
[2017-08-13] MEDS: MORPHINE SULFATE 2 MG/ML SYRINGE IV PUSH PRN ×2 (11:35→21:46)
[2017-08-13 12:00] VITALS: BP 136/86; PULSE 101; RESP 20; TEMP 97.6; O2SAT 93
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
[2017-08-13 16:00] VITALS: BP 132/77; PULSE 92; RESP 20; TEMP 97.5; O2SAT 95
[2017-08-13] MEDS: ENOXAPARIN SODIUM 40 MG/0.4 ML SYRINGE SQ SCH (18:14)
[2017-08-13 20:00] VITALS: BP 120/76; PULSE 109; RESP 20; TEMP 97.7; O2SAT 96
[2017-08-13] MEDS: MIRTAZAPINE 15 MG TAB PO SCH (21:04)
[2017-08-14] VITALS: BP 109/66; PULSE 110; RESP 20; TEMP 97.8; O2SAT 94
[2017-08-14] MEDS: HYDROmorphone HCL 4 MG TAB PO PRN ×2 (01:08→22:10)
[2017-08-14 08:00] VITALS: BP 133/75; PULSE 98; RESP 20; TEMP 98; O2SAT 95
[2017-08-14] MEDS: SODIUM CHLORIDE 0.9% FLUSH 10 ML FLUSH IV FLUSH SCH ×2 (09:00→22:11)
[2017-08-14] MEDS: ZINC OXIDE 40% OINT 60 GM TUBE TOPICAL SCH ×2 (09:00→21:00)
[2017-08-14] MEDS: SODIUM CHLORIDE 0.9% FLUSH 10 ML FLUSH IVF SCH (09:00)
[2017-08-14] MEDS: SODIUM HYPOCHLORITE 0.25% 500 ML BTL TOPICAL SCH (09:00)
[2017-08-14] MEDS: CYPROHEPTADINE HCL 4 MG TAB PO SCH ×2 (09:41→22:10)
[2017-08-14] MEDS: ESCITALOPRAM OXALATE 10 MG TAB PO SCH (09:42)
[2017-08-14] MEDS: DOCUSATE SODIUM 50 MG/SENNA 8.6 MG TAB PO SCH ×2 (09:42→22:09)
[2017-08-14] MEDS: CYCLOBENZAPRINE HCL 10 MG TAB PO SCH ×3 (09:42→17:55)
[2017-08-14] MEDS: FERROUS SULFATE 325 MG (65 MG ELEMENTAL IRON) TAB PO SCH (09:42)
[2017-08-14] MEDS: GABAPENTIN 400 MG CAP PO SCH ×3 (09:42→17:56)
[2017-08-14] MEDS: PYRIDOXINE HCL 50 MG TAB PO SCH (09:42)
[2017-08-14] MEDS: LACTOBACILLUS ACIDOPHILUS TAB PO SCH ×2 (09:42→22:10)
[2017-08-14] MEDS: MORPHINE SULFATE 2 MG/ML SYRINGE IV PUSH PRN (09:56)
[2017-08-14 12:00] VITALS: BP 128/76; PULSE 101; RESP 18; TEMP 97.3; O2SAT 98
[2017-08-14 16:00] VITALS: BP 139/88; PULSE 101; RESP 24; TEMP 98.1; O2SAT 98
[2017-08-14] MEDS: ENOXAPARIN SODIUM 40 MG/0.4 ML SYRINGE SQ SCH (17:57)
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
[2017-08-14] MEDS: MIRTAZAPINE 15 MG TAB PO SCH (22:10)
[2017-08-15 01:37] VITALS: BP 132/69; PULSE 69; RESP 16; TEMP 98.4; O2SAT 97
[2017-08-15 05:39] VITALS: BP 136/69; PULSE 70; RESP 16; TEMP 97.6; O2SAT 98
[2017-08-15 08:01] VITALS: BP 117/65; PULSE 94; RESP 18; TEMP 97.4; O2SAT 97
[2017-08-15] MEDS: SODIUM HYPOCHLORITE 0.25% 500 ML BTL TOPICAL SCH (09:00)
[2017-08-15] MEDS: ZINC OXIDE 40% OINT 60 GM TUBE TOPICAL SCH ×2 (09:00→21:39)
[2017-08-15] MEDS: SODIUM CHLORIDE 0.9% FLUSH 10 ML FLUSH IVF SCH (09:00)
[2017-08-15] MEDS: ESCITALOPRAM OXALATE 10 MG TAB PO SCH (09:11)
[2017-08-15] MEDS: GABAPENTIN 400 MG CAP PO SCH ×3 (09:11→17:57)
[2017-08-15] MEDS: PYRIDOXINE HCL 50 MG TAB PO SCH (09:11)
[2017-08-15] MEDS: DOCUSATE SODIUM 50 MG/SENNA 8.6 MG TAB PO SCH ×2 (09:11→21:36)
[2017-08-15] MEDS: CYCLOBENZAPRINE HCL 10 MG TAB PO SCH ×3 (09:11→17:56)
[2017-08-15] MEDS: LACTOBACILLUS ACIDOPHILUS TAB PO SCH ×2 (09:11→21:35)
[2017-08-15] MEDS: CYPROHEPTADINE HCL 4 MG TAB PO SCH ×2 (09:11→21:36)
[2017-08-15] MEDS: FERROUS SULFATE 325 MG (65 MG ELEMENTAL IRON) TAB PO SCH (09:11)
[2017-08-15] MEDS: SODIUM CHLORIDE 0.9% FLUSH 10 ML FLUSH IV FLUSH SCH ×2 (09:12→21:39)
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
[2017-08-15 12:05] VITALS: BP 127/81; PULSE 86; RESP 18; TEMP 97.7; O2SAT 98
[2017-08-15] MEDS: HYDROmorphone HCL 4 MG TAB PO PRN (12:31)
[2017-08-15] MEDS: MORPHINE SULFATE 2 MG/ML SYRINGE IV PUSH PRN ×2 (12:32→22:59)
[2017-08-15 16:05] VITALS: BP 136/81; PULSE 86; RESP 18; TEMP 97.3; O2SAT 96
[2017-08-15] MEDS: ENOXAPARIN SODIUM 40 MG/0.4 ML SYRINGE SQ SCH (17:56)
[2017-08-15] MEDS: MIRTAZAPINE 15 MG TAB PO SCH (21:36)
[2017-08-15 21:45] VITALS: BP 138/91; PULSE 110; RESP 14; TEMP 97.9; O2SAT 97
[2017-08-16] MEDS: HYDROmorphone HCL 4 MG TAB PO PRN ×5 (00:53→22:02)
[2017-08-16 01:00] VITALS: BP 129/83; PULSE 104; RESP 19; TEMP 98.1; O2SAT 96
[2017-08-16 08:00] VITALS: BP 124/91; PULSE 116; RESP 18; TEMP 98.1; O2SAT 95
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
[2017-08-16] MEDS: SODIUM HYPOCHLORITE 0.25% 500 ML BTL TOPICAL SCH (09:00)
[2017-08-16] MEDS: SODIUM CHLORIDE 0.9% FLUSH 10 ML FLUSH IV FLUSH SCH ×2 (09:00→22:04)
[2017-08-16] MEDS: SODIUM CHLORIDE 0.9% FLUSH 10 ML FLUSH IVF SCH (09:00)
[2017-08-16] MEDS: ZINC OXIDE 40% OINT 60 GM TUBE TOPICAL SCH ×2 (09:00→22:06)
[2017-08-16] MEDS: DOCUSATE SODIUM 50 MG/SENNA 8.6 MG TAB PO SCH ×2 (09:26→22:04)
[2017-08-16] MEDS: LACTOBACILLUS ACIDOPHILUS TAB PO SCH ×2 (09:26→22:03)
[2017-08-16] MEDS: ESCITALOPRAM OXALATE 10 MG TAB PO SCH (09:26)
[2017-08-16] MEDS: CYPROHEPTADINE HCL 4 MG TAB PO SCH ×2 (09:26→22:03)
[2017-08-16] MEDS: GABAPENTIN 400 MG CAP PO SCH ×3 (09:26→18:36)
[2017-08-16] MEDS: CYCLOBENZAPRINE HCL 10 MG TAB PO SCH ×3 (09:27→18:37)
[2017-08-16] MEDS: FERROUS SULFATE 325 MG (65 MG ELEMENTAL IRON) TAB PO SCH (09:27)
[2017-08-16] MEDS: PYRIDOXINE HCL 50 MG TAB PO SCH (09:27)
[2017-08-16] MEDS: MORPHINE SULFATE 2 MG/ML SYRINGE IV PUSH PRN ×2 (13:32→23:59)
[2017-08-16 16:00] VITALS: BP 137/85; PULSE 108; RESP 18; TEMP 98.3; O2SAT 98
[2017-08-16] MEDS: ENOXAPARIN SODIUM 40 MG/0.4 ML SYRINGE SQ SCH (18:37)
[2017-08-16 20:00] VITALS: BP 154/98; PULSE 114; RESP 18; TEMP 98.1; O2SAT 95
[2017-08-16] MEDS: MIRTAZAPINE 15 MG TAB PO SCH (22:03)
[2017-08-17] VITALS: BP 155/100; PULSE 118; RESP 18; TEMP 98; O2SAT 95
[2017-08-17] MEDS: SODIUM HYPOCHLORITE 0.25% 500 ML BTL TOPICAL SCH ×2 (00:01→09:59)
[2017-08-17 08:05] VITALS: BP 119/77; PULSE 88; RESP 17; TEMP 97.2; O2SAT 95
[2017-08-17] MEDS: CYPROHEPTADINE HCL 4 MG TAB PO SCH ×2 (09:57→20:32)
[2017-08-17] MEDS: PYRIDOXINE HCL 50 MG TAB PO SCH (09:58)
[2017-08-17] MEDS: CYCLOBENZAPRINE HCL 10 MG TAB PO SCH ×3 (09:58→18:45)
[2017-08-17] MEDS: DOCUSATE SODIUM 50 MG/SENNA 8.6 MG TAB PO SCH ×2 (09:58→20:31)
[2017-08-17] MEDS: ESCITALOPRAM OXALATE 10 MG TAB PO SCH (09:58)
[2017-08-17] MEDS: GABAPENTIN 400 MG CAP PO SCH ×3 (09:58→18:45)
[2017-08-17] MEDS: FERROUS SULFATE 325 MG (65 MG ELEMENTAL IRON) TAB PO SCH (09:58)
[2017-08-17] MEDS: LACTOBACILLUS ACIDOPHILUS TAB PO SCH ×2 (09:58→20:31)
[2017-08-17] MEDS: ZINC OXIDE 40% OINT 60 GM TUBE TOPICAL SCH ×2 (09:59→20:32)
[2017-08-17 12:05] VITALS: BP 120/86; PULSE 92; RESP 17; TEMP 97.6; O2SAT 96
[2017-08-17 16:05] VITALS: BP 135/74; PULSE 118; RESP 18; TEMP 97.8; O2SAT 94
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
[2017-08-17] MEDS: ENOXAPARIN SODIUM 40 MG/0.4 ML SYRINGE SQ SCH (18:45)
[2017-08-17] MEDS: MORPHINE SULFATE 2 MG/ML SYRINGE IV PUSH PRN (18:46)
[2017-08-17 20:00] VITALS: BP 118/75; PULSE 121; RESP 17; TEMP 98.4; O2SAT 94
[2017-08-17] MEDS: HYDROmorphone HCL 4 MG TAB PO PRN (20:32)
[2017-08-17] MEDS: MIRTAZAPINE 15 MG TAB PO SCH (20:32)
[2017-08-17] MEDS: SODIUM CHLORIDE 0.9% FLUSH 10 ML FLUSH IV FLUSH SCH (20:32)
[2017-08-18] VITALS: BP 119/85; PULSE 123; RESP 20; TEMP 98.5; O2SAT 96
[2017-08-18] MEDS: MORPHINE SULFATE 2 MG/ML SYRINGE IV PUSH PRN ×3 (00:23→23:09)
[2017-08-18] MEDS: HYDROmorphone HCL 4 MG TAB PO PRN (01:48)
[2017-08-18 08:00] VITALS: BP 117/69; PULSE 107; RESP 16; TEMP 97.5; O2SAT 93
[2017-08-18] MEDS: SODIUM CHLORIDE 0.9% FLUSH 10 ML FLUSH IVF SCH ×2 (09:00→10:28)
[2017-08-18] MEDS: SODIUM CHLORIDE 0.9% FLUSH 10 ML FLUSH IV FLUSH SCH ×2 (09:00→23:13)
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
[2017-08-18] MEDS: ESCITALOPRAM OXALATE 10 MG TAB PO SCH (10:29)
[2017-08-18] MEDS: CYPROHEPTADINE HCL 4 MG TAB PO SCH ×2 (10:29→23:14)
[2017-08-18] MEDS: GABAPENTIN 400 MG CAP PO SCH ×3 (10:29→18:31)
[2017-08-18] MEDS: CYCLOBENZAPRINE HCL 10 MG TAB PO SCH ×3 (10:29→18:31)
[2017-08-18] MEDS: DOCUSATE SODIUM 50 MG/SENNA 8.6 MG TAB PO SCH ×2 (10:29→23:14)
[2017-08-18] MEDS: PYRIDOXINE HCL 50 MG TAB PO SCH (10:29)
[2017-08-18] MEDS: FERROUS SULFATE 325 MG (65 MG ELEMENTAL IRON) TAB PO SCH (10:29)
[2017-08-18] MEDS: LACTOBACILLUS ACIDOPHILUS TAB PO SCH ×2 (10:30→23:14)
[2017-08-18] MEDS: SODIUM HYPOCHLORITE 0.25% 500 ML BTL TOPICAL SCH (10:30)
[2017-08-18] MEDS: ZINC OXIDE 40% OINT 60 GM TUBE TOPICAL SCH ×2 (10:31→23:15)
[2017-08-18 12:59] VITALS: BP 113/79; PULSE 98; RESP 18; TEMP 97.7; O2SAT 93
[2017-08-18 16:00] VITALS: BP 122/77; PULSE 100; RESP 17; TEMP 97.8; O2SAT 94
[2017-08-18] MEDS: ENOXAPARIN SODIUM 40 MG/0.4 ML SYRINGE SQ SCH (18:31)
[2017-08-18 20:00] VITALS: BP 130/77; PULSE 102; RESP 18; TEMP 98.4; O2SAT 95
[2017-08-18] MEDS: MIRTAZAPINE 15 MG TAB PO SCH (23:14)
[2017-08-19] VITALS: BP 127/76; PULSE 105; RESP 18; TEMP 98.3; O2SAT 96
[2017-08-19] MEDS: ZINC OXIDE 40% OINT 60 GM TUBE TOPICAL SCH ×2 (09:00→23:42)
[2017-08-19] MEDS: SODIUM HYPOCHLORITE 0.25% 500 ML BTL TOPICAL SCH (09:00)
[2017-08-19] MEDS: SODIUM CHLORIDE 0.9% FLUSH 10 ML FLUSH IVF SCH (09:00)
[2017-08-19] MEDS: HYDROmorphone HCL 4 MG TAB PO PRN ×3 (09:17→23:40)
[2017-08-19] MEDS: CYCLOBENZAPRINE HCL 10 MG TAB PO SCH ×3 (09:17→17:31)
[2017-08-19] MEDS: ESCITALOPRAM OXALATE 10 MG TAB PO SCH (09:17)
[2017-08-19 09:18] VITALS: BP 116/70; PULSE 93; RESP 20; TEMP 98; O2SAT 97
[2017-08-19] MEDS: CYPROHEPTADINE HCL 4 MG TAB PO SCH ×2 (09:18→23:41)
[2017-08-19] MEDS: LACTOBACILLUS ACIDOPHILUS TAB PO SCH ×2 (09:18→21:00)
[2017-08-19] MEDS: GABAPENTIN 400 MG CAP PO SCH ×3 (09:18→17:31)
[2017-08-19] MEDS: PYRIDOXINE HCL 50 MG TAB PO SCH (09:18)
[2017-08-19] MEDS: DOCUSATE SODIUM 50 MG/SENNA 8.6 MG TAB PO SCH ×2 (09:18→23:41)
[2017-08-19] MEDS: FERROUS SULFATE 325 MG (65 MG ELEMENTAL IRON) TAB PO SCH (09:18)
[2017-08-19] MEDS: SODIUM CHLORIDE 0.9% FLUSH 10 ML FLUSH IV FLUSH SCH ×2 (09:18→23:41)
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
[2017-08-19 11:57] VITALS: BP 114/69; PULSE 95; RESP 20; TEMP 97.4; O2SAT 97
[2017-08-19 16:18] VITALS: BP 137/76; PULSE 103; RESP 20; TEMP 97.6; O2SAT 98
[2017-08-19] MEDS: MORPHINE SULFATE 2 MG/ML SYRINGE IV PUSH PRN (17:32)
[2017-08-19] MEDS: ENOXAPARIN SODIUM 40 MG/0.4 ML SYRINGE SQ SCH (17:32)
[2017-08-19 20:00] VITALS: BP 128/68; PULSE 126; RESP 18; TEMP 98.4; O2SAT 93
[2017-08-19] MEDS: MIRTAZAPINE 15 MG TAB PO SCH (23:41)
[2017-08-20] VITALS: BP 120/79; PULSE 102; RESP 18; TEMP 98.2; O2SAT 94
[2017-08-20] MEDS: HYDROmorphone HCL 4 MG TAB PO PRN (06:10)
[2017-08-20 08:45] VITALS: BP 126/80; PULSE 96; RESP 16; TEMP 98.2; O2SAT 95
[2017-08-20] MEDS: SODIUM CHLORIDE 0.9% FLUSH 10 ML FLUSH IVF SCH (09:00)
[2017-08-20] MEDS: GABAPENTIN 400 MG CAP PO SCH ×3 (09:00→18:12)
[2017-08-20] MEDS: CYCLOBENZAPRINE HCL 10 MG TAB PO SCH ×3 (09:00→18:12)
[2017-08-20] MEDS: LACTOBACILLUS ACIDOPHILUS TAB PO SCH ×2 (09:00→21:00)
[2017-08-20] MEDS: SODIUM CHLORIDE 0.9% FLUSH 10 ML FLUSH IV FLUSH SCH ×2 (12:01→21:02)
[2017-08-20] MEDS: PYRIDOXINE HCL 50 MG TAB PO SCH (12:01)
[2017-08-20] MEDS: CYPROHEPTADINE HCL 4 MG TAB PO SCH ×2 (12:02→21:01)
[2017-08-20] MEDS: DOCUSATE SODIUM 50 MG/SENNA 8.6 MG TAB PO SCH ×2 (12:02→21:01)
[2017-08-20] MEDS: FERROUS SULFATE 325 MG (65 MG ELEMENTAL IRON) TAB PO SCH (12:02)
[2017-08-20] MEDS: ZINC OXIDE 40% OINT 60 GM TUBE TOPICAL SCH ×2 (12:05→21:02)
[2017-08-20] MEDS: SODIUM HYPOCHLORITE 0.25% 500 ML BTL TOPICAL SCH (12:05)
[2017-08-20] MEDS: MORPHINE SULFATE 2 MG/ML SYRINGE IV PUSH PRN ×2 (12:06→21:03)
[2017-08-20] MEDS: ESCITALOPRAM OXALATE 10 MG TAB PO SCH (12:34)
[2017-08-20 12:35] VITALS: BP 131/81; PULSE 103; RESP 20; TEMP 98; O2SAT 94
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
[2017-08-20] MEDS: ENOXAPARIN SODIUM 40 MG/0.4 ML SYRINGE SQ SCH (18:11)
[2017-08-20 20:00] VITALS: BP 142/85; PULSE 95; RESP 20; TEMP 102.6; O2SAT 100
[2017-08-20] MEDS: MIRTAZAPINE 15 MG TAB PO SCH (21:01)
[2017-08-21] MEDS: HYDROmorphone HCL 4 MG TAB PO PRN (07:15)
[2017-08-21] MEDS: SODIUM CHLORIDE 0.9% FLUSH 10 ML FLUSH IVF SCH (09:00)
[2017-08-21] MEDS: LACTOBACILLUS ACIDOPHILUS TAB PO SCH ×2 (09:00→21:00)
[2017-08-21 09:08] VITALS: BP 123/78; PULSE 94; RESP 16; TEMP 97.7; O2SAT 94
[2017-08-21 09:39] LABS: AUTOMATED NEUTROPHIL # 3.8 TH/MM3 (1.8-7.7); BASOPHIL % 0.4 % (0.0-2.0); EOSINOPHIL # 0.2 TH/MM3 (0-0.4); EOSINOPHIL % 3.1 % (0.0-4.0); HEMATOCRIT 39.2 % (39.0-51.0); HEMOGLOBIN 13.3 GM/DL (13.0-17.0); LYMPH % 41.4 % (9.0-44.0); LYMPHOCYTE # 3.2 TH/MM3 (1.0-4.8); MEAN CELL VOLUME 82.4 FL (80.0-100.0); MEAN CORPUSCULAR HGB CONC 33.9 % (32.0-36.0); MEAN PLATELET VOLUME 6.5 FL (7.0-11.0); MONO % 6.2 % (0.0-8.0); MONOCYTE # 0.5 TH/MM3 (0-0.9); NEUT % 48.9 % (16.0-70.0); PLATELET COUNT 522 TH/MM3 (150-450); RED BLOOD COUNT 4.75 MIL/MM3 (4.50-5.90); RED CELL DISTRIBUTION WIDTH 19.2 % (11.6-17.2); WHITE BLOOD COUNT 7.8 TH/MM3 (4.0-11.0)
[2017-08-21] MEDS: SODIUM CHLORIDE 0.9% FLUSH 10 ML FLUSH IV FLUSH SCH ×2 (10:02→21:40)
[2017-08-21] MEDS: FERROUS SULFATE 325 MG (65 MG ELEMENTAL IRON) TAB PO SCH (10:02)
[2017-08-21] MEDS: CYCLOBENZAPRINE HCL 10 MG TAB PO SCH ×3 (10:02→17:40)
[2017-08-21] MEDS: PYRIDOXINE HCL 50 MG TAB PO SCH (10:02)
[2017-08-21 10:03] LABS: BICARBONATE 26.9 MEQ/L (21.0-32.0); CALCIUM 9.2 MG/DL (8.5-10.1); CREATININE 0.56 MG/DL (0.60-1.30)
[2017-08-21] MEDS: ZINC OXIDE 40% OINT 60 GM TUBE TOPICAL SCH ×2 (10:03→21:41)
[2017-08-21] MEDS: SODIUM HYPOCHLORITE 0.25% 500 ML BTL TOPICAL SCH (10:03)
[2017-08-21] MEDS: CYPROHEPTADINE HCL 4 MG TAB PO SCH ×2 (10:03→21:40)
[2017-08-21] MEDS: ESCITALOPRAM OXALATE 10 MG TAB PO SCH (10:03)
[2017-08-21] MEDS: GABAPENTIN 400 MG CAP PO SCH ×3 (10:03→17:41)
[2017-08-21] MEDS: DOCUSATE SODIUM 50 MG/SENNA 8.6 MG TAB PO SCH ×2 (10:03→21:40)
[2017-08-21] MEDS: MORPHINE SULFATE 2 MG/ML SYRINGE IV PUSH PRN ×2 (10:04→21:42)
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
[2017-08-21 12:14] VITALS: BP 129/79; PULSE 96; RESP 17; TEMP 98.3; O2SAT 95
[2017-08-21 17:00] VITALS: BP 129/78; PULSE 101; RESP 18; TEMP 98.4; O2SAT 94
[2017-08-21] MEDS: ENOXAPARIN SODIUM 40 MG/0.4 ML SYRINGE SQ SCH (17:40)
[2017-08-21 20:00] VITALS: BP 143/82; PULSE 107; RESP 17; TEMP 98.4; O2SAT 94
[2017-08-21] MEDS: MIRTAZAPINE 15 MG TAB PO SCH (21:40)
[2017-08-22] VITALS: BP 114/72; PULSE 112; RESP 18; TEMP 98.2; O2SAT 96
[2017-08-22] MEDS: HYDROmorphone HCL 4 MG TAB PO PRN ×3 (00:05→21:10)
[2017-08-22 06:10] VITALS: BP 136/82; PULSE 101; RESP 20; TEMP 98.2; O2SAT 98
[2017-08-22 08:00] VITALS: BP 113/63; PULSE 106; RESP 20; TEMP 97.9; O2SAT 93
[2017-08-22] MEDS: LACTOBACILLUS ACIDOPHILUS TAB PO SCH ×2 (09:00→21:10)
[2017-08-22] MEDS: SODIUM HYPOCHLORITE 0.25% 500 ML BTL TOPICAL SCH (09:00)
[2017-08-22] MEDS: ZINC OXIDE 40% OINT 60 GM TUBE TOPICAL SCH ×2 (09:00→21:00)
[2017-08-22] MEDS: SODIUM CHLORIDE 0.9% FLUSH 10 ML FLUSH IVF SCH (09:00)
[2017-08-22] MEDS: SODIUM CHLORIDE 0.9% FLUSH 10 ML FLUSH IV FLUSH SCH ×2 (09:00→21:11)
[2017-08-22] MEDS: ESCITALOPRAM OXALATE 10 MG TAB PO SCH (10:23)
[2017-08-22] MEDS: CYCLOBENZAPRINE HCL 10 MG TAB PO SCH ×3 (10:24→17:44)
[2017-08-22] MEDS: DOCUSATE SODIUM 50 MG/SENNA 8.6 MG TAB PO SCH ×2 (10:24→21:11)
[2017-08-22] MEDS: CYPROHEPTADINE HCL 4 MG TAB PO SCH ×2 (10:24→21:10)
[2017-08-22] MEDS: GABAPENTIN 400 MG CAP PO SCH ×3 (10:24→17:44)
[2017-08-22] MEDS: FERROUS SULFATE 325 MG (65 MG ELEMENTAL IRON) TAB PO SCH (10:25)
[2017-08-22] MEDS: PYRIDOXINE HCL 50 MG TAB PO SCH (10:25)
[2017-08-22] MEDS: MORPHINE SULFATE 2 MG/ML SYRINGE IV PUSH PRN (12:44)
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
[2017-08-22 16:00] VITALS: BP 123/63; PULSE 100; RESP 20; TEMP 97.4; O2SAT 96
[2017-08-22] MEDS: ENOXAPARIN SODIUM 40 MG/0.4 ML SYRINGE SQ SCH (17:47)
[2017-08-22 20:00] VITALS: BP 134/85; PULSE 104; RESP 18; TEMP 98; O2SAT 98
[2017-08-22] MEDS: MIRTAZAPINE 15 MG TAB PO SCH (21:10)
[2017-08-22 21:34] LABS: AMORPHOUS SEDIMENT, URINE RARE; BACTERIA, URINE MANY /hpf; BILIRUBIN, URINE NEG (NEG); BLOOD, URINE NEG (NEG); GLUCOSE,URINE NEG (NEG); KETONE, URINE NEG (NEG); MUCUS URINE FEW /lpf (OCC); NITRITE,URINE POS (NEG); TRIPLE PHOSPHATE CRYSTAL,URINE MOD /hpf; URINE COLOR YELLOW (YELLW/STRAW); URINE LEUKOCYTE ESTERASE LARGE (NEG); WHITE BLOOD CELL CLUMPS RARE
[2017-08-23 08:00] VITALS: BP 114/73; PULSE 99; RESP 18; TEMP 97.8; O2SAT 96
[2017-08-23] MEDS: SODIUM HYPOCHLORITE 0.25% 500 ML BTL TOPICAL SCH (09:00)
[2017-08-23] MEDS: LACTOBACILLUS ACIDOPHILUS TAB PO SCH ×2 (09:00→20:49)
[2017-08-23] MEDS: ZINC OXIDE 40% OINT 60 GM TUBE TOPICAL SCH ×2 (09:00→20:49)
[2017-08-23] MEDS: SODIUM CHLORIDE 0.9% FLUSH 10 ML FLUSH IVF SCH (09:00)
[2017-08-23] MEDS: SODIUM CHLORIDE 0.9% FLUSH 10 ML FLUSH IV FLUSH SCH ×2 (09:00→20:49)
[2017-08-23] MEDS: GABAPENTIN 400 MG CAP PO SCH ×3 (10:17→17:19)
[2017-08-23] MEDS: PYRIDOXINE HCL 50 MG TAB PO SCH (10:17)
[2017-08-23] MEDS: ESCITALOPRAM OXALATE 10 MG TAB PO SCH (10:17)
[2017-08-23] MEDS: DOCUSATE SODIUM 50 MG/SENNA 8.6 MG TAB PO SCH ×2 (10:17→20:48)
[2017-08-23] MEDS: CYCLOBENZAPRINE HCL 10 MG TAB PO SCH ×3 (10:17→17:19)
[2017-08-23] MEDS: CYPROHEPTADINE HCL 4 MG TAB PO SCH ×2 (10:17→20:49)
[2017-08-23] MEDS: FERROUS SULFATE 325 MG (65 MG ELEMENTAL IRON) TAB PO SCH (10:17)
[2017-08-23 11:59] VITALS: BP 113/77; PULSE 93; RESP 18; TEMP 97.7; O2SAT 96
[2017-08-23] MEDS: MORPHINE SULFATE 2 MG/ML SYRINGE IV PUSH PRN (12:50)
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
[2017-08-23 15:58] VITALS: BP 141/90; PULSE 103; RESP 18; TEMP 98.9; O2SAT 97
[2017-08-23] MEDS: cefTRIAXone INJ 1,000 MG in SODIUM CHLORIDE 0.9% INJ 100 ML IV SCH (16:00)
[2017-08-23] MEDS: ENOXAPARIN SODIUM 40 MG/0.4 ML SYRINGE SQ SCH (17:23)
[2017-08-23 20:00] VITALS: BP 132/83; PULSE 112; RESP 18; TEMP 98.2; O2SAT 95
[2017-08-23] MEDS: MIRTAZAPINE 15 MG TAB PO SCH (20:49)
[2017-08-23] MEDS: HYDROmorphone HCL 4 MG TAB PO PRN (20:49)
[2017-08-23 21:53] VITALS: O2SAT 94
[2017-08-24 08:01] VITALS: BP 122/71; PULSE 99; RESP 20; TEMP 97.8; O2SAT 100
[2017-08-24] MEDS: SODIUM CHLORIDE 0.9% FLUSH 10 ML FLUSH IV FLUSH SCH ×2 (09:00→21:32)
[2017-08-24] MEDS: SODIUM CHLORIDE 0.9% FLUSH 10 ML FLUSH IVF SCH (09:13)
[2017-08-24] MEDS: PYRIDOXINE HCL 50 MG TAB PO SCH (09:16)
[2017-08-24] MEDS: CYPROHEPTADINE HCL 4 MG TAB PO SCH ×2 (09:16→21:30)
[2017-08-24] MEDS: DOCUSATE SODIUM 50 MG/SENNA 8.6 MG TAB PO SCH ×2 (09:16→21:30)
[2017-08-24] MEDS: CYCLOBENZAPRINE HCL 10 MG TAB PO SCH ×3 (09:16→18:09)
[2017-08-24] MEDS: FERROUS SULFATE 325 MG (65 MG ELEMENTAL IRON) TAB PO SCH (09:16)
[2017-08-24] MEDS: GABAPENTIN 400 MG CAP PO SCH ×3 (09:16→18:09)
[2017-08-24] MEDS: ESCITALOPRAM OXALATE 10 MG TAB PO SCH (09:16)
[2017-08-24] MEDS: LACTOBACILLUS ACIDOPHILUS TAB PO SCH ×2 (09:16→21:30)
[2017-08-24] MEDS: ZINC OXIDE 40% OINT 60 GM TUBE TOPICAL SCH ×2 (09:17→21:33)
[2017-08-24] MEDS: HYDROmorphone HCL 4 MG TAB PO PRN ×2 (09:39→18:09)
[2017-08-24] MEDS: SODIUM HYPOCHLORITE 0.25% 500 ML BTL TOPICAL SCH (09:42)
[2017-08-24 12:06] VITALS: BP 116/76; PULSE 95; RESP 21; TEMP 97.5; O2SAT 96
[2017-08-24] MEDS: cefTRIAXone INJ 1,000 MG in SODIUM CHLORIDE 0.9% INJ 100 ML IV SCH (15:44)
[2017-08-24] MEDS: MORPHINE SULFATE 2 MG/ML SYRINGE IV PUSH PRN (15:47)
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
[2017-08-24 16:00] VITALS: BP 136/80; PULSE 104; RESP 20; TEMP 98.2; O2SAT 95
[2017-08-24] MEDS: ENOXAPARIN SODIUM 40 MG/0.4 ML SYRINGE SQ SCH (16:22)
[2017-08-24 20:00] VITALS: BP 135/84; PULSE 107; RESP 20; TEMP 97.4; O2SAT 97
[2017-08-24] MEDS: ALPRAZolam 0.25 MG TAB PO PRN (21:30)
[2017-08-24] MEDS: MIRTAZAPINE 15 MG TAB PO SCH (21:31)
[2017-08-25] VITALS: BP 135/86; PULSE 109; RESP 20; TEMP 98.3; O2SAT 97
[2017-08-25 08:01] VITALS: BP 113/68; PULSE 90; RESP 20; TEMP 97.6; O2SAT 96
[2017-08-25] MEDS: FERROUS SULFATE 325 MG (65 MG ELEMENTAL IRON) TAB PO SCH (09:00)
[2017-08-25] MEDS: SODIUM HYPOCHLORITE 0.25% 500 ML BTL TOPICAL SCH (09:00)
[2017-08-25] MEDS: ZINC OXIDE 40% OINT 60 GM TUBE TOPICAL SCH ×2 (09:00→21:00)
[2017-08-25] MEDS: CYPROHEPTADINE HCL 4 MG TAB PO SCH ×2 (09:00→21:47)
[2017-08-25] MEDS: ESCITALOPRAM OXALATE 10 MG TAB PO SCH (09:00)
[2017-08-25] MEDS: CYCLOBENZAPRINE HCL 10 MG TAB PO SCH ×3 (09:00→18:38)
[2017-08-25] MEDS: DOCUSATE SODIUM 50 MG/SENNA 8.6 MG TAB PO SCH ×2 (09:00→21:48)
[2017-08-25] MEDS: GABAPENTIN 400 MG CAP PO SCH ×3 (09:00→18:38)
[2017-08-25] MEDS: PYRIDOXINE HCL 50 MG TAB PO SCH (09:01)
[2017-08-25] MEDS: LACTOBACILLUS ACIDOPHILUS TAB PO SCH ×2 (09:04→21:48)
[2017-08-25] MEDS: HYDROmorphone HCL 4 MG TAB PO PRN ×2 (09:04→18:44)
[2017-08-25] MEDS: SODIUM CHLORIDE 0.9% FLUSH 10 ML FLUSH IV FLUSH SCH ×2 (09:04→21:48)
[2017-08-25] MEDS: SODIUM CHLORIDE 0.9% FLUSH 10 ML FLUSH IVF SCH (09:05)
[2017-08-25 12:01] VITALS: BP 123/71; PULSE 95; RESP 20; TEMP 98.2; O2SAT 96
[2017-08-25] MEDS: MORPHINE SULFATE 2 MG/ML SYRINGE IV PUSH PRN ×2 (13:37→21:50)
[2017-08-25 16:00] VITALS: BP 134/72; PULSE 99; RESP 20; TEMP 98.1; O2SAT 98
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
[2017-08-25] MEDS: ENOXAPARIN SODIUM 40 MG/0.4 ML SYRINGE SQ SCH (18:39)
[2017-08-25] MEDS: cefTRIAXone INJ 1,000 MG in SODIUM CHLORIDE 0.9% INJ 100 ML IV SCH (18:44)
[2017-08-25 20:00] VITALS: BP 155/97; PULSE 108; RESP 18; TEMP 98.5; O2SAT 96
[2017-08-25] MEDS: ALPRAZolam 0.25 MG TAB PO PRN (21:47)
[2017-08-25] MEDS: MIRTAZAPINE 15 MG TAB PO SCH (21:48)
[2017-08-26 08:02] VITALS: BP 113/68; PULSE 93; RESP 21; TEMP 98.2; O2SAT 97
[2017-08-26] MEDS: SODIUM HYPOCHLORITE 0.25% 500 ML BTL TOPICAL SCH (09:00)
[2017-08-26] MEDS: CYPROHEPTADINE HCL 4 MG TAB PO SCH ×2 (09:00→22:42)
[2017-08-26] MEDS: LACTOBACILLUS ACIDOPHILUS TAB PO SCH ×2 (09:00→22:42)
[2017-08-26] MEDS: GABAPENTIN 400 MG CAP PO SCH ×3 (09:00→18:30)
[2017-08-26] MEDS: ZINC OXIDE 40% OINT 60 GM TUBE TOPICAL SCH ×2 (09:00→21:00)
[2017-08-26] MEDS: CYCLOBENZAPRINE HCL 10 MG TAB PO SCH ×3 (09:00→18:30)
[2017-08-26] MEDS: ESCITALOPRAM OXALATE 10 MG TAB PO SCH (09:00)
[2017-08-26] MEDS: SODIUM CHLORIDE 0.9% FLUSH 10 ML FLUSH IV FLUSH SCH ×2 (09:00→22:41)
[2017-08-26] MEDS: PYRIDOXINE HCL 50 MG TAB PO SCH (09:00)
[2017-08-26] MEDS: FERROUS SULFATE 325 MG (65 MG ELEMENTAL IRON) TAB PO SCH (09:00)
[2017-08-26] MEDS: DOCUSATE SODIUM 50 MG/SENNA 8.6 MG TAB PO SCH ×2 (09:00→22:42)
[2017-08-26] MEDS: SODIUM CHLORIDE 0.9% FLUSH 10 ML FLUSH IVF SCH (09:00)
[2017-08-26] MEDS: MORPHINE SULFATE 2 MG/ML SYRINGE IV PUSH PRN ×2 (11:42→22:43)
[2017-08-26 12:02] VITALS: BP 128/83; PULSE 111; RESP 21; TEMP 98.3; O2SAT 96
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
[2017-08-26 16:03] VITALS: BP 113/69; PULSE 95; RESP 20; TEMP 97.7; O2SAT 98
[2017-08-26] MEDS: cefTRIAXone INJ 1,000 MG in SODIUM CHLORIDE 0.9% INJ 100 ML IV SCH (17:47)
[2017-08-26] MEDS: ENOXAPARIN SODIUM 40 MG/0.4 ML SYRINGE SQ SCH (18:31)
[2017-08-26 20:00] VITALS: BP 117/85; PULSE 112; RESP 18; TEMP 98; O2SAT 95
[2017-08-26] MEDS: ALPRAZolam 0.25 MG TAB PO PRN (22:42)
[2017-08-26] MEDS: MIRTAZAPINE 15 MG TAB PO SCH (22:42)
[2017-08-27] VITALS: BP 122/76; PULSE 104; RESP 18; TEMP 97.2; O2SAT 97
[2017-08-27 04:00] VITALS: BP 112/66; PULSE 99; RESP 18; TEMP 97.6; O2SAT 95
[2017-08-27 08:00] VITALS: BP 112/65; PULSE 93; RESP 16; TEMP 97.3; O2SAT 97
[2017-08-27] MEDS: DOCUSATE SODIUM 50 MG/SENNA 8.6 MG TAB PO SCH ×2 (08:43→21:00)
[2017-08-27] MEDS: FERROUS SULFATE 325 MG (65 MG ELEMENTAL IRON) TAB PO SCH (08:43)
[2017-08-27] MEDS: SODIUM CHLORIDE 0.9% FLUSH 10 ML FLUSH IV FLUSH SCH ×2 (08:43→21:31)
[2017-08-27] MEDS: LACTOBACILLUS ACIDOPHILUS TAB PO SCH ×2 (08:44→21:32)
[2017-08-27] MEDS: CYCLOBENZAPRINE HCL 10 MG TAB PO SCH ×3 (08:44→17:10)
[2017-08-27] MEDS: CYPROHEPTADINE HCL 4 MG TAB PO SCH ×2 (08:45→21:31)
[2017-08-27] MEDS: PYRIDOXINE HCL 50 MG TAB PO SCH (08:45)
[2017-08-27] MEDS: GABAPENTIN 400 MG CAP PO SCH ×3 (08:50→17:10)
[2017-08-27] MEDS: SODIUM CHLORIDE 0.9% FLUSH 10 ML FLUSH IVF SCH (08:51)
[2017-08-27] MEDS: ZINC OXIDE 40% OINT 60 GM TUBE TOPICAL SCH ×2 (08:51→21:00)
[2017-08-27] MEDS: SODIUM HYPOCHLORITE 0.25% 500 ML BTL TOPICAL SCH (08:51)
[2017-08-27] MEDS: ESCITALOPRAM OXALATE 10 MG TAB PO SCH (08:52)
[2017-08-27] MEDS: MORPHINE SULFATE 2 MG/ML SYRINGE IV PUSH PRN ×2 (11:35→21:31)
[2017-08-27 12:00] VITALS: BP 123/78; PULSE 95; RESP 16; TEMP 98.1; O2SAT 95
[2017-08-27] MEDS ORDERED: oxyCODONE/ACETAMINOPHEN 5 MG/325 MG TAB PO ONE (14:30)
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
[2017-08-27 16:00] VITALS: BP 129/82; PULSE 105; RESP 16; TEMP 98.2; O2SAT 94
[2017-08-27] MEDS: ENOXAPARIN SODIUM 40 MG/0.4 ML SYRINGE SQ SCH (17:10)
[2017-08-27] MEDS: cefTRIAXone INJ 1,000 MG in SODIUM CHLORIDE 0.9% INJ 100 ML IV SCH (17:11)
[2017-08-27] MEDS: ALPRAZolam 0.25 MG TAB PO PRN (21:31)
[2017-08-27] MEDS: MIRTAZAPINE 15 MG TAB PO SCH (21:32)
[2017-08-27 22:05] VITALS: BP 125/79; PULSE 106; RESP 16; TEMP 97.3; O2SAT 96
[2017-08-28 00:25] VITALS: BP 135/69; PULSE 108; RESP 16; TEMP 98.2; O2SAT 95
[2017-08-28] MEDS: HYDROmorphone HCL 4 MG TAB PO PRN ×4 (01:12→23:48)
[2017-08-28 08:01] VITALS: BP 117/85; PULSE 98; RESP 18; TEMP 97.4; O2SAT 96
[2017-08-28] MEDS: SODIUM CHLORIDE 0.9% FLUSH 10 ML FLUSH IVF SCH (09:00)
[2017-08-28] MEDS: DOCUSATE SODIUM 50 MG/SENNA 8.6 MG TAB PO SCH ×2 (10:21→19:59)
[2017-08-28] MEDS: CYCLOBENZAPRINE HCL 10 MG TAB PO SCH ×3 (10:21→17:12)
[2017-08-28] MEDS: ESCITALOPRAM OXALATE 10 MG TAB PO SCH (10:21)
[2017-08-28] MEDS: LACTOBACILLUS ACIDOPHILUS TAB PO SCH ×2 (10:21→20:00)
[2017-08-28] MEDS: CYPROHEPTADINE HCL 4 MG TAB PO SCH ×2 (10:22→20:00)
[2017-08-28] MEDS: GABAPENTIN 400 MG CAP PO SCH ×3 (10:22→17:12)
[2017-08-28] MEDS: SODIUM CHLORIDE 0.9% FLUSH 10 ML FLUSH IV FLUSH SCH ×2 (10:22→21:37)
[2017-08-28] MEDS: PYRIDOXINE HCL 50 MG TAB PO SCH (10:22)
[2017-08-28] MEDS: FERROUS SULFATE 325 MG (65 MG ELEMENTAL IRON) TAB PO SCH (10:22)
[2017-08-28] MEDS: SODIUM HYPOCHLORITE 0.25% 500 ML BTL TOPICAL SCH (10:25)
[2017-08-28] MEDS: ZINC OXIDE 40% OINT 60 GM TUBE TOPICAL SCH ×2 (10:26→20:00)
[2017-08-28 12:01] VITALS: BP 122/88; PULSE 112; RESP 18; TEMP 98.8; O2SAT 97
[2017-08-28] MEDS: MORPHINE SULFATE 2 MG/ML SYRINGE IV PUSH PRN ×2 (13:43→21:37)
[2017-08-28] MEDS: cefTRIAXone INJ 1,000 MG in SODIUM CHLORIDE 0.9% INJ 100 ML IV SCH (15:37)
[2017-08-28 16:01] VITALS: BP 116/97; PULSE 102; RESP 18; TEMP 98.9; O2SAT 97
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
[2017-08-28] MEDS: ENOXAPARIN SODIUM 40 MG/0.4 ML SYRINGE SQ SCH (17:12)
[2017-08-28 20:00] VITALS: BP 133/90; PULSE 110; RESP 18; TEMP 98.6; O2SAT 95
[2017-08-28] MEDS: MIRTAZAPINE 15 MG TAB PO SCH (20:00)
[2017-08-28] MEDS: ALPRAZolam 0.25 MG TAB PO PRN (20:00)
[2017-08-29] VITALS: BP 142/84; PULSE 112; RESP 18; TEMP 97.9; O2SAT 95
[2017-08-29 07:50] VITALS: BP 125/69; PULSE 97; RESP 20; TEMP 97.4; O2SAT 97
[2017-08-29] MEDS: SODIUM CHLORIDE 0.9% FLUSH 10 ML FLUSH IVF SCH (09:00)
[2017-08-29] MEDS: CYCLOBENZAPRINE HCL 10 MG TAB PO SCH ×3 (09:37→18:28)
[2017-08-29] MEDS: DOCUSATE SODIUM 50 MG/SENNA 8.6 MG TAB PO SCH ×2 (09:37→22:40)
[2017-08-29] MEDS: MORPHINE SULFATE 2 MG/ML SYRINGE IV PUSH PRN ×2 (09:37→23:09)
[2017-08-29] MEDS: FERROUS SULFATE 325 MG (65 MG ELEMENTAL IRON) TAB PO SCH (09:37)
[2017-08-29] MEDS: GABAPENTIN 400 MG CAP PO SCH ×3 (09:38→18:28)
[2017-08-29] MEDS: ESCITALOPRAM OXALATE 10 MG TAB PO SCH (09:38)
[2017-08-29] MEDS: LACTOBACILLUS ACIDOPHILUS TAB PO SCH ×2 (09:38→22:38)
[2017-08-29] MEDS: SODIUM HYPOCHLORITE 0.25% 500 ML BTL TOPICAL SCH (09:39)
[2017-08-29] MEDS: ZINC OXIDE 40% OINT 60 GM TUBE TOPICAL SCH ×2 (09:39→22:43)
[2017-08-29] MEDS: SODIUM CHLORIDE 0.9% FLUSH 10 ML FLUSH IV FLUSH SCH ×2 (09:47→22:42)
[2017-08-29] MEDS: PYRIDOXINE HCL 50 MG TAB PO SCH (10:21)
[2017-08-29] MEDS: CYPROHEPTADINE HCL 4 MG TAB PO SCH ×2 (10:21→22:41)
[2017-08-29 11:50] VITALS: BP 131/87; PULSE 105; RESP 20; TEMP 98; O2SAT 98
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
[2017-08-29 15:50] VITALS: BP 132/74; PULSE 105; RESP 20; TEMP 98.1; O2SAT 96
[2017-08-29] MEDS: cefTRIAXone INJ 1,000 MG in SODIUM CHLORIDE 0.9% INJ 100 ML IV SCH (18:28)
[2017-08-29] MEDS: ENOXAPARIN SODIUM 40 MG/0.4 ML SYRINGE SQ SCH (18:28)
[2017-08-29 20:00] VITALS: BP 137/83; PULSE 116; RESP 20; TEMP 97.4; O2SAT 98
[2017-08-29] MEDS: MIRTAZAPINE 15 MG TAB PO SCH (22:40)
[2017-08-29] MEDS: CEFUROXIME AXETIL 250 MG TAB PO SCH (23:06)
[2017-08-29] MEDS: ALPRAZolam 0.25 MG TAB PO PRN (23:18)
[2017-08-30] VITALS: BP 126/87; PULSE 109; RESP 17; TEMP 98.8; O2SAT 95
[2017-08-30] MEDS: HYDROmorphone HCL 4 MG TAB PO PRN ×2 (06:24→17:11)
[2017-08-30 08:00] VITALS: BP 112/74; PULSE 96; RESP 16; TEMP 97.4; O2SAT 96
[2017-08-30] MEDS: SODIUM CHLORIDE 0.9% FLUSH 10 ML FLUSH IVF SCH (09:00)
[2017-08-30] MEDS: SODIUM CHLORIDE 0.9% FLUSH 10 ML FLUSH IV FLUSH SCH ×2 (09:51→23:18)
[2017-08-30] MEDS: ESCITALOPRAM OXALATE 10 MG TAB PO SCH (09:52)
[2017-08-30] MEDS: CYCLOBENZAPRINE HCL 10 MG TAB PO SCH ×3 (09:52→18:09)
[2017-08-30] MEDS: PYRIDOXINE HCL 50 MG TAB PO SCH (09:52)
[2017-08-30] MEDS: CYPROHEPTADINE HCL 4 MG TAB PO SCH ×2 (09:52→23:17)
[2017-08-30] MEDS: DOCUSATE SODIUM 50 MG/SENNA 8.6 MG TAB PO SCH ×2 (09:52→23:18)
[2017-08-30] MEDS: CEFUROXIME AXETIL 250 MG TAB PO SCH ×2 (09:52→23:17)
[2017-08-30] MEDS: LACTOBACILLUS ACIDOPHILUS TAB PO SCH ×2 (09:52→21:00)
[2017-08-30] MEDS: GABAPENTIN 400 MG CAP PO SCH ×3 (09:52→18:09)
[2017-08-30] MEDS: FERROUS SULFATE 325 MG (65 MG ELEMENTAL IRON) TAB PO SCH (09:53)
[2017-08-30] MEDS: SODIUM HYPOCHLORITE 0.25% 500 ML BTL TOPICAL SCH (09:53)
[2017-08-30] MEDS: ZINC OXIDE 40% OINT 60 GM TUBE TOPICAL SCH ×2 (09:53→21:00)
[2017-08-30] MEDS: MORPHINE SULFATE 2 MG/ML SYRINGE IV PUSH PRN (09:58)
[2017-08-30 12:00] VITALS: BP 139/84; PULSE 115; RESP 18; TEMP 98.3; O2SAT 98
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
[2017-08-30 16:00] VITALS: BP 138/80; PULSE 113; RESP 18; TEMP 97.9; O2SAT 99
[2017-08-30] MEDS: ENOXAPARIN SODIUM 40 MG/0.4 ML SYRINGE SQ SCH (18:09)
[2017-08-30 20:00] VITALS: BP 128/76; PULSE 114; RESP 20; TEMP 98; O2SAT 95
[2017-08-30] MEDS: ALPRAZolam 0.25 MG TAB PO PRN (23:17)
[2017-08-30] MEDS: MIRTAZAPINE 15 MG TAB PO SCH (23:18)
[2017-08-31] VITALS: BP 137/72; PULSE 104; RESP 18; TEMP 97.8; O2SAT 96
[2017-08-31] MEDS: HYDROmorphone HCL 4 MG TAB PO PRN ×3 (00:08→23:36)
[2017-08-31] MEDS: FERROUS SULFATE 325 MG (65 MG ELEMENTAL IRON) TAB PO SCH (08:11)
[2017-08-31] MEDS: GABAPENTIN 400 MG CAP PO SCH ×3 (08:11→17:38)
[2017-08-31] MEDS: CYPROHEPTADINE HCL 4 MG TAB PO SCH ×2 (08:11→22:32)
[2017-08-31] MEDS: ESCITALOPRAM OXALATE 10 MG TAB PO SCH (08:11)
[2017-08-31] MEDS: PYRIDOXINE HCL 50 MG TAB PO SCH (08:12)
[2017-08-31] MEDS: SODIUM CHLORIDE 0.9% FLUSH 10 ML FLUSH IV FLUSH SCH ×2 (08:12→21:00)
[2017-08-31] MEDS: DOCUSATE SODIUM 50 MG/SENNA 8.6 MG TAB PO SCH ×2 (08:12→22:32)
[2017-08-31] MEDS: CYCLOBENZAPRINE HCL 10 MG TAB PO SCH ×3 (08:12→17:38)
[2017-08-31] MEDS: CEFUROXIME AXETIL 250 MG TAB PO SCH ×2 (08:12→22:32)
[2017-08-31] MEDS: LACTOBACILLUS ACIDOPHILUS TAB PO SCH ×2 (08:14→22:32)
[2017-08-31] MEDS: ZINC OXIDE 40% OINT 60 GM TUBE TOPICAL SCH ×2 (08:14→21:00)
[2017-08-31] MEDS: SODIUM HYPOCHLORITE 0.25% 500 ML BTL TOPICAL SCH (08:14)
[2017-08-31] MEDS: SODIUM CHLORIDE 0.9% FLUSH 10 ML FLUSH IVF SCH (09:00)
[2017-08-31] MEDS: MORPHINE SULFATE 2 MG/ML SYRINGE IV PUSH PRN ×2 (11:50→22:33)
[2017-08-31 12:04] VITALS: BP 121/73; PULSE 103; RESP 18; TEMP 98.2; O2SAT 96
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
[2017-08-31 16:04] VITALS: BP 138/68; PULSE 108; RESP 18; TEMP 97.5; O2SAT 97
[2017-08-31] MEDS: ENOXAPARIN SODIUM 40 MG/0.4 ML SYRINGE SQ SCH (17:40)
[2017-08-31 20:00] VITALS: BP 148/77; PULSE 112; RESP 17; TEMP 98.3; O2SAT 95
[2017-08-31] MEDS: MIRTAZAPINE 15 MG TAB PO SCH (22:32)
[2017-08-31] MEDS: ALPRAZolam 0.25 MG TAB PO PRN (22:33)
[2017-09-01] VITALS: BP 130/71; PULSE 109; RESP 17; TEMP 97.3; O2SAT 96
[2017-09-01] MEDS: SODIUM CHLORIDE 0.9% FLUSH 10 ML FLUSH IVF SCH (08:21)
[2017-09-01] MEDS: SODIUM CHLORIDE 0.9% FLUSH 10 ML FLUSH IV FLUSH SCH ×2 (08:21→21:00)
[2017-09-01] MEDS: FERROUS SULFATE 325 MG (65 MG ELEMENTAL IRON) TAB PO SCH (08:22)
[2017-09-01] MEDS: DOCUSATE SODIUM 50 MG/SENNA 8.6 MG TAB PO SCH ×2 (08:22→21:00)
[2017-09-01] MEDS: CYCLOBENZAPRINE HCL 10 MG TAB PO SCH ×3 (08:23→17:16)
[2017-09-01] MEDS: GABAPENTIN 400 MG CAP PO SCH ×4 (08:23→21:47)
[2017-09-01] MEDS: CYPROHEPTADINE HCL 4 MG TAB PO SCH ×2 (08:23→21:47)
[2017-09-01] MEDS: PYRIDOXINE HCL 50 MG TAB PO SCH (08:23)
[2017-09-01] MEDS: ESCITALOPRAM OXALATE 10 MG TAB PO SCH (08:23)
[2017-09-01] MEDS: ZINC OXIDE 40% OINT 60 GM TUBE TOPICAL SCH ×2 (08:24→21:00)
[2017-09-01] MEDS: LACTOBACILLUS ACIDOPHILUS TAB PO SCH ×2 (08:24→21:00)
[2017-09-01] MEDS: SODIUM HYPOCHLORITE 0.25% 500 ML BTL TOPICAL SCH (08:24)
[2017-09-01 08:41] VITALS: BP 114/73; PULSE 100; RESP 20; O2SAT 96
[2017-09-01] MEDS: HYDROmorphone HCL 4 MG TAB PO PRN (09:38)
[2017-09-01] MEDS: CEFUROXIME AXETIL 250 MG TAB PO SCH ×2 (09:38→21:47)
[2017-09-01 12:18] VITALS: BP 123/76; PULSE 93; RESP 20; TEMP 97.6; O2SAT 97
[2017-09-01] MEDS: MORPHINE SULFATE 2 MG/ML SYRINGE IV PUSH PRN ×2 (12:36→23:16)
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
[2017-09-01] MEDS: ENOXAPARIN SODIUM 40 MG/0.4 ML SYRINGE SQ SCH (17:16)
[2017-09-01 20:00] VITALS: BP 130/88; PULSE 104; RESP 18; TEMP 98.5; O2SAT 96
[2017-09-01] MEDS: MIRTAZAPINE 15 MG TAB PO SCH (21:46)
[2017-09-01] MEDS: ALPRAZolam 0.25 MG TAB PO PRN (21:47)
[2017-09-02] VITALS: BP 127/77; PULSE 106; RESP 16; TEMP 98.2; O2SAT 96
[2017-09-02] MEDS: HYDROmorphone HCL 4 MG TAB PO PRN ×3 (08:37→20:20)
[2017-09-02] MEDS: PYRIDOXINE HCL 50 MG TAB PO SCH (08:37)
[2017-09-02] MEDS: CYCLOBENZAPRINE HCL 10 MG TAB PO SCH ×3 (08:38→17:24)
[2017-09-02] MEDS: FERROUS SULFATE 325 MG (65 MG ELEMENTAL IRON) TAB PO SCH (08:38)
[2017-09-02] MEDS: ESCITALOPRAM OXALATE 10 MG TAB PO SCH (08:38)
[2017-09-02] MEDS: GABAPENTIN 400 MG CAP PO SCH ×4 (08:38→20:16)
[2017-09-02] MEDS: DOCUSATE SODIUM 50 MG/SENNA 8.6 MG TAB PO SCH ×2 (08:38→20:16)
[2017-09-02] MEDS: SODIUM CHLORIDE 0.9% FLUSH 10 ML FLUSH IVF SCH (08:38)
[2017-09-02] MEDS: CEFUROXIME AXETIL 250 MG TAB PO SCH ×2 (08:38→20:16)
[2017-09-02] MEDS: CYPROHEPTADINE HCL 4 MG TAB PO SCH ×2 (08:38→20:16)
[2017-09-02] MEDS: SODIUM CHLORIDE 0.9% FLUSH 10 ML FLUSH IV FLUSH SCH ×2 (08:39→20:17)
[2017-09-02] MEDS: LACTOBACILLUS ACIDOPHILUS TAB PO SCH ×2 (08:39→20:17)
[2017-09-02] MEDS: ZINC OXIDE 40% OINT 60 GM TUBE TOPICAL SCH ×2 (08:40→20:17)
[2017-09-02] MEDS: SODIUM HYPOCHLORITE 0.25% 500 ML BTL TOPICAL SCH (08:40)
[2017-09-02 12:18] VITALS: BP 139/79; PULSE 99; RESP 20; TEMP 97.6; O2SAT 98
[2017-09-02] MEDS: MORPHINE SULFATE 2 MG/ML SYRINGE IV PUSH PRN ×2 (12:32→23:03)
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
[2017-09-02] MEDS: ENOXAPARIN SODIUM 40 MG/0.4 ML SYRINGE SQ SCH (17:25)
[2017-09-02 20:00] VITALS: BP 125/79; PULSE 104; RESP 18; TEMP 98.4; O2SAT 96
[2017-09-02] MEDS: MIRTAZAPINE 15 MG TAB PO SCH (20:16)
[2017-09-03] VITALS: BP 137/79; PULSE 102; RESP 18; TEMP 98; O2SAT 96
[2017-09-03] MEDS: HYDROmorphone HCL 4 MG TAB PO PRN ×3 (03:10→13:45)
[2017-09-03 04:00] VITALS: BP 144/79; PULSE 113; RESP 18; TEMP 98.3; O2SAT 97
[2017-09-03 08:02] VITALS: BP 155/88; PULSE 118; RESP 17; TEMP 98; O2SAT 95
[2017-09-03 08:57] LABS: AUTOMATED NEUTROPHIL # 4.3 TH/MM3 (1.8-7.7); BASOPHIL # 0.1 TH/MM3 (0-0.2); BASOPHIL % 0.7 % (0.0-2.0); EOSINOPHIL # 0.3 TH/MM3 (0-0.4); EOSINOPHIL % 2.8 % (0.0-4.0); HEMATOCRIT 41.2 % (39.0-51.0); HEMOGLOBIN 14.1 GM/DL (13.0-17.0); LYMPH % 43.5 % (9.0-44.0); LYMPHOCYTE # 3.9 TH/MM3 (1.0-4.8); MEAN CELL VOLUME 83.2 FL (80.0-100.0); MEAN CORPUSCULAR HEMOGLOBIN 28.4 PG (27.0-34.0); MEAN CORPUSCULAR HGB CONC 34.2 % (32.0-36.0); MEAN PLATELET VOLUME 6.3 FL (7.0-11.0); MONO % 5.1 % (0.0-8.0); MONOCYTE # 0.5 TH/MM3 (0-0.9); NEUT % 47.9 % (16.0-70.0); PLATELET COUNT 452 TH/MM3 (150-450); RED BLOOD COUNT 4.95 MIL/MM3 (4.50-5.90); RED CELL DISTRIBUTION WIDTH 19.3 % (11.6-17.2)
[2017-09-03] MEDS: LACTOBACILLUS ACIDOPHILUS TAB PO SCH ×2 (09:00→21:00)
[2017-09-03] MEDS: SODIUM CHLORIDE 0.9% FLUSH 10 ML FLUSH IVF SCH (09:00)
[2017-09-03 09:11] LABS: BICARBONATE 23.4 MEQ/L (21.0-32.0); CALCIUM 9.1 MG/DL (8.5-10.1); CREATININE 0.61 MG/DL (0.60-1.30); MAGNESIUM 1.9 MG/DL (1.5-2.5)
[2017-09-03] MEDS: SODIUM CHLORIDE 0.9% FLUSH 10 ML FLUSH IV FLUSH SCH ×2 (09:41→22:07)
[2017-09-03] MEDS: CYPROHEPTADINE HCL 4 MG TAB PO SCH ×2 (09:42→22:07)
[2017-09-03] MEDS: CEFUROXIME AXETIL 250 MG TAB PO SCH ×2 (09:42→22:06)
[2017-09-03] MEDS: GABAPENTIN 400 MG CAP PO SCH ×4 (09:42→22:06)
[2017-09-03] MEDS: DOCUSATE SODIUM 50 MG/SENNA 8.6 MG TAB PO SCH ×2 (09:42→22:07)
[2017-09-03] MEDS: ESCITALOPRAM OXALATE 10 MG TAB PO SCH (09:42)
[2017-09-03] MEDS: ZINC OXIDE 40% OINT 60 GM TUBE TOPICAL SCH ×2 (09:42→22:08)
[2017-09-03] MEDS: CYCLOBENZAPRINE HCL 10 MG TAB PO SCH ×3 (09:42→17:42)
[2017-09-03] MEDS: FERROUS SULFATE 325 MG (65 MG ELEMENTAL IRON) TAB PO SCH (09:42)
[2017-09-03] MEDS: PYRIDOXINE HCL 50 MG TAB PO SCH (09:42)
[2017-09-03] MEDS: SODIUM HYPOCHLORITE 0.25% 500 ML BTL TOPICAL SCH (09:42)
[2017-09-03 12:10] VITALS: BP 137/72; PULSE 110; RESP 17; TEMP 98.1; O2SAT 96
[2017-09-03] MEDS: MORPHINE SULFATE 2 MG/ML SYRINGE IV PUSH PRN ×2 (12:46→22:05)
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
[2017-09-03 16:16] VITALS: BP 139/82; PULSE 112; RESP 18; TEMP 98; O2SAT 97
[2017-09-03] MEDS: oxyCODONE/ACETAMINOPHEN 5 MG/325 MG TAB PO PRN (17:42)
[2017-09-03] MEDS: ENOXAPARIN SODIUM 40 MG/0.4 ML SYRINGE SQ SCH (17:42)
[2017-09-03 20:00] VITALS: BP 146/92; PULSE 122; RESP 19; TEMP 98.2; O2SAT 96
[2017-09-03] MEDS: MIRTAZAPINE 15 MG TAB PO SCH (22:07)
[2017-09-03] MEDS: ALPRAZolam 0.25 MG TAB PO PRN (22:47)
[2017-09-04] VITALS: BP 138/97; PULSE 122; RESP 20; TEMP 97.8; O2SAT 96
[2017-09-04] MEDS: HYDROmorphone HCL 4 MG TAB PO PRN ×3 (01:24→17:04)
[2017-09-04 09:00] VITALS: BP 122/81; PULSE 101; RESP 20; TEMP 98.1; O2SAT 97
[2017-09-04] MEDS: SODIUM CHLORIDE 0.9% FLUSH 10 ML FLUSH IVF SCH (09:00)
[2017-09-04] MEDS: LACTOBACILLUS ACIDOPHILUS TAB PO SCH ×3 (09:00→21:00)
[2017-09-04] MEDS: FERROUS SULFATE 325 MG (65 MG ELEMENTAL IRON) TAB PO SCH (09:11)
[2017-09-04] MEDS: ESCITALOPRAM OXALATE 10 MG TAB PO SCH (09:11)
[2017-09-04] MEDS: CEFUROXIME AXETIL 250 MG TAB PO SCH ×2 (09:11→22:28)
[2017-09-04] MEDS: PYRIDOXINE HCL 50 MG TAB PO SCH (09:11)
[2017-09-04] MEDS: CYPROHEPTADINE HCL 4 MG TAB PO SCH ×2 (09:11→22:29)
[2017-09-04] MEDS: CYCLOBENZAPRINE HCL 10 MG TAB PO SCH ×3 (09:11→17:04)
[2017-09-04] MEDS: SODIUM CHLORIDE 0.9% FLUSH 10 ML FLUSH IV FLUSH SCH ×2 (09:11→22:28)
[2017-09-04] MEDS: SODIUM HYPOCHLORITE 0.25% 500 ML BTL TOPICAL SCH (09:11)
[2017-09-04] MEDS: ZINC OXIDE 40% OINT 60 GM TUBE TOPICAL SCH ×2 (09:11→22:30)
[2017-09-04] MEDS: DOCUSATE SODIUM 50 MG/SENNA 8.6 MG TAB PO SCH ×2 (09:12→22:31)
[2017-09-04] MEDS: GABAPENTIN 400 MG CAP PO SCH ×4 (09:12→22:29)
[2017-09-04] MEDS: MORPHINE SULFATE 2 MG/ML SYRINGE IV PUSH PRN ×2 (09:12→22:28)
--- NOTE | 2017-09-04 11:11 | PD.WCN.NOT ---
Wound Consult Description: Follow up care for Sacral/Trochanter wounds Communicated with: Madhuri BULLOCK 4 [place], Le BULLOCK 4 [place], Doctor Gonzalez, and Doctor Ambrocio Recommendation: Please follow orders written by Doctor Knight. Additional Information: Patient was seen on for follow up of wounds to L trochanter, sacral and posterior scrotal wounds around 1030 am. Patient seen with Doctor Knight, Madhuri BULLOCK 4 [place] and Le BULLOCK 4 [place] and global technical writer. Patient able to turn self with minimal assistance from global technical writer to R side for wound assessment. Removed dressings to reveal wounds to L Trochanter, and Scrotal areas. L trochanter wound measures 4.9cm x 2cm x 1.2cm. Undermining is noted circumferentially deepest at 3 o'clock measuring 5.1cm. Wound presents with ~40% yellow adherent tissue and ~60% red tissue.Wound drainage is minimal and sero-sanguinous without odor. wound margins are noted with epibole and rolled thickened scar tissue.Cleansed wound to L trochanter with wound cleanser and patted dry. Applied Purocol (collagen) dressing to wound bed and packed in undermined areas.Then applied Maxorb II(Calcium alginate)packed loosely to wound bed and covered with dry cover dressing.Skin prep was applied before applying dressing. Sacral wound presents with 100% scar tissue. Reapplied adhesive foam dressing back in place. Scrotal wound presents with 100% beefy red granulation tissue that has minimal sero-sanguinous/ green drainage with mild odor. Wound measures 4cm x 9cm x 0.9cm. Epibole is noted to wound margins that are also uneven.Cleansed wound with normal saline. Packed wound loosely with Maxorb II (calcium alginate) dressing and covered with ABD pad, secured with medfix tape. Skin prep was applied generously to periwound before applying dressing. Su[facility]ey Varner [facility] Sep 04, 2017 11:11
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
[2017-09-04 12:00] VITALS: BP 129/79; PULSE 101; RESP 18; TEMP 97.8; O2SAT 96
[2017-09-04] MEDS: ALPRAZolam 0.25 MG TAB PO PRN ×2 (13:57→23:54)
[2017-09-04 16:00] VITALS: BP 143/82; PULSE 120; RESP 20; TEMP 98.3; O2SAT 95
[2017-09-04] MEDS: ENOXAPARIN SODIUM 40 MG/0.4 ML SYRINGE SQ SCH (17:04)
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
[2017-09-04 20:00] VITALS: BP 148/90; PULSE 116; RESP 21; TEMP 98.3; O2SAT 95
[2017-09-04 22:10] VITALS: RESP 20
[2017-09-04] MEDS: MIRTAZAPINE 15 MG TAB PO SCH (22:29)
[2017-09-05] VITALS: BP 120/93; PULSE 113; RESP 20; TEMP 98.8; O2SAT 94
[2017-09-05] MEDS: SODIUM CHLORIDE 0.9% FLUSH 10 ML FLUSH IV FLUSH SCH ×2 (07:26→22:04)
[2017-09-05] MEDS: SODIUM CHLORIDE 0.9% FLUSH 10 ML FLUSH IVF SCH (07:26)
[2017-09-05 08:00] VITALS: BP 121/73; PULSE 101; RESP 16; TEMP 97.6; O2SAT 96
[2017-09-05] MEDS: ESCITALOPRAM OXALATE 10 MG TAB PO SCH (08:21)
[2017-09-05] MEDS: PYRIDOXINE HCL 50 MG TAB PO SCH (08:21)
[2017-09-05] MEDS: FERROUS SULFATE 325 MG (65 MG ELEMENTAL IRON) TAB PO SCH (08:21)
[2017-09-05] MEDS: GABAPENTIN 400 MG CAP PO SCH ×4 (08:21→22:17)
[2017-09-05] MEDS: CYCLOBENZAPRINE HCL 10 MG TAB PO SCH ×3 (08:21→17:28)
[2017-09-05] MEDS: CEFUROXIME AXETIL 250 MG TAB PO SCH ×2 (08:21→22:05)
[2017-09-05] MEDS: LACTOBACILLUS ACIDOPHILUS TAB PO SCH ×2 (08:21→21:00)
[2017-09-05] MEDS: SELENIUM SULFIDE 1% SHAMPOO 207 ML BOTTLE TOPICAL SCH (08:22)
[2017-09-05] MEDS: DOCUSATE SODIUM 50 MG/SENNA 8.6 MG TAB PO SCH ×2 (08:22→22:05)
[2017-09-05] MEDS: ZINC OXIDE 40% OINT 60 GM TUBE TOPICAL SCH ×2 (08:22→22:06)
[2017-09-05] MEDS: CYPROHEPTADINE HCL 4 MG TAB PO SCH ×2 (08:22→22:05)
[2017-09-05] MEDS: SODIUM HYPOCHLORITE 0.25% 500 ML BTL TOPICAL SCH (08:22)
[2017-09-05 12:00] VITALS: BP 123/82; PULSE 103; RESP 18; TEMP 96.6; O2SAT 97
[2017-09-05] MEDS: MORPHINE SULFATE 2 MG/ML SYRINGE IV PUSH PRN ×2 (13:30→22:32)
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
[2017-09-05 16:00] VITALS: BP 130/80; PULSE 108; RESP 20; TEMP 98.3; O2SAT 97
[2017-09-05] MEDS: ENOXAPARIN SODIUM 40 MG/0.4 ML SYRINGE SQ SCH (17:27)
[2017-09-05 20:00] VITALS: BP 134/77; PULSE 114; RESP 18; TEMP 98; O2SAT 98
[2017-09-05] MEDS: MIRTAZAPINE 15 MG TAB PO SCH (22:05)
[2017-09-05] MEDS: ALPRAZolam 0.25 MG TAB PO PRN (22:17)
[2017-09-05] MEDS: SODIUM CHLORIDE 0.9% FLUSH 10 ML FLUSH IV FLUSH PRN (22:33)
[2017-09-06] VITALS: BP 129/81; PULSE 109; RESP 20; TEMP 98; O2SAT 96
[2017-09-06] MEDS: HYDROmorphone HCL 4 MG TAB PO PRN ×3 (00:18→21:08)
[2017-09-06 08:00] VITALS: BP 128/79; PULSE 101; RESP 16; TEMP 97.7; O2SAT 97
[2017-09-06] MEDS: SODIUM CHLORIDE 0.9% FLUSH 10 ML FLUSH IVF SCH (09:00)
[2017-09-06] MEDS: LACTOBACILLUS ACIDOPHILUS TAB PO SCH ×2 (09:00→21:00)
[2017-09-06] MEDS: PYRIDOXINE HCL 50 MG TAB PO SCH (09:12)
[2017-09-06] MEDS: ESCITALOPRAM OXALATE 10 MG TAB PO SCH (09:12)
[2017-09-06] MEDS: CYPROHEPTADINE HCL 4 MG TAB PO SCH ×2 (09:12→21:07)
[2017-09-06] MEDS: CEFUROXIME AXETIL 250 MG TAB PO SCH (09:12)
[2017-09-06] MEDS: GABAPENTIN 400 MG CAP PO SCH ×4 (09:12→21:07)
[2017-09-06] MEDS: CYCLOBENZAPRINE HCL 10 MG TAB PO SCH ×3 (09:13→18:14)
[2017-09-06] MEDS: FERROUS SULFATE 325 MG (65 MG ELEMENTAL IRON) TAB PO SCH (09:13)
[2017-09-06] MEDS: DOCUSATE SODIUM 50 MG/SENNA 8.6 MG TAB PO SCH ×2 (09:13→21:07)
[2017-09-06] MEDS: SODIUM CHLORIDE 0.9% FLUSH 10 ML FLUSH IV FLUSH SCH ×2 (09:14→21:00)
[2017-09-06] MEDS: SODIUM HYPOCHLORITE 0.25% 500 ML BTL TOPICAL SCH (09:16)
[2017-09-06] MEDS: ZINC OXIDE 40% OINT 60 GM TUBE TOPICAL SCH ×2 (09:16→21:00)
[2017-09-06 12:00] VITALS: BP 127/73; PULSE 100; RESP 16; TEMP 97.6; O2SAT 98
[2017-09-06] MEDS: MORPHINE SULFATE 2 MG/ML SYRINGE IV PUSH PRN ×2 (13:03→22:38)
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
[2017-09-06 16:00] VITALS: BP 134/76; PULSE 107; RESP 18; TEMP 97.7; O2SAT 96
[2017-09-06] MEDS: ENOXAPARIN SODIUM 40 MG/0.4 ML SYRINGE SQ SCH (18:15)
[2017-09-06] MEDS: MIRTAZAPINE 15 MG TAB PO SCH (21:08)
[2017-09-06 21:12] VITALS: BP 137/92; PULSE 104; RESP 20; TEMP 98.9; O2SAT 97
[2017-09-06] MEDS: ALPRAZolam 0.25 MG TAB PO PRN (22:53)
[2017-09-07 08:00] VITALS: BP 120/85; PULSE 91; RESP 18; TEMP 97.5; O2SAT 98
[2017-09-07] MEDS: GABAPENTIN 400 MG CAP PO SCH ×4 (08:48→20:21)
[2017-09-07] MEDS: DOCUSATE SODIUM 50 MG/SENNA 8.6 MG TAB PO SCH ×2 (08:48→20:21)
[2017-09-07] MEDS: CYCLOBENZAPRINE HCL 10 MG TAB PO SCH ×3 (08:48→17:07)
[2017-09-07] MEDS: CYPROHEPTADINE HCL 4 MG TAB PO SCH ×2 (08:48→20:21)
[2017-09-07] MEDS: ESCITALOPRAM OXALATE 10 MG TAB PO SCH (08:48)
[2017-09-07] MEDS: SODIUM CHLORIDE 0.9% FLUSH 10 ML FLUSH IVF SCH (08:48)
[2017-09-07] MEDS: FERROUS SULFATE 325 MG (65 MG ELEMENTAL IRON) TAB PO SCH (08:48)
[2017-09-07] MEDS: LACTOBACILLUS ACIDOPHILUS TAB PO SCH ×2 (08:48→20:22)
[2017-09-07] MEDS: PYRIDOXINE HCL 50 MG TAB PO SCH (08:48)
[2017-09-07] MEDS: SODIUM HYPOCHLORITE 0.25% 500 ML BTL TOPICAL SCH (08:49)
[2017-09-07] MEDS: SODIUM CHLORIDE 0.9% FLUSH 10 ML FLUSH IV FLUSH SCH ×2 (08:49→20:22)
[2017-09-07] MEDS: ZINC OXIDE 40% OINT 60 GM TUBE TOPICAL SCH ×2 (08:50→20:22)
[2017-09-07 12:00] VITALS: BP 115/82; PULSE 97; RESP 20; TEMP 97.8; O2SAT 98
[2017-09-07] MEDS: MORPHINE SULFATE 2 MG/ML SYRINGE IV PUSH PRN ×2 (12:30→22:54)
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
[2017-09-07] MEDS: HYDROmorphone HCL 4 MG TAB PO PRN ×2 (15:16→20:22)
[2017-09-07 16:00] VITALS: BP 142/92; PULSE 99; RESP 18; TEMP 98; O2SAT 97
[2017-09-07] MEDS: ENOXAPARIN SODIUM 40 MG/0.4 ML SYRINGE SQ SCH (17:07)
[2017-09-07] MEDS: MIRTAZAPINE 15 MG TAB PO SCH (20:22)
[2017-09-07] MEDS: ALPRAZolam 0.25 MG TAB PO PRN (20:29)
[2017-09-07 21:40] VITALS: BP 154/94; PULSE 113; RESP 18; TEMP 97.9; O2SAT 98
[2017-09-08 00:34] VITALS: BP 130/88; PULSE 100; RESP 20; TEMP 97.7; O2SAT 98
[2017-09-08] MEDS: HYDROmorphone HCL 4 MG TAB PO PRN ×3 (01:34→18:06)
[2017-09-08] MEDS: ALPRAZolam 0.25 MG TAB PO PRN ×2 (06:13→23:50)
[2017-09-08 08:00] VITALS: BP 139/85; PULSE 91; RESP 18; TEMP 97.6; O2SAT 97
[2017-09-08] MEDS: SODIUM CHLORIDE 0.9% FLUSH 10 ML FLUSH IVF SCH (09:00)
[2017-09-08] MEDS: LACTOBACILLUS ACIDOPHILUS TAB PO SCH ×2 (09:00→22:11)
[2017-09-08] MEDS: FERROUS SULFATE 325 MG (65 MG ELEMENTAL IRON) TAB PO SCH (09:00)
[2017-09-08] MEDS: SODIUM CHLORIDE 0.9% FLUSH 10 ML FLUSH IV FLUSH SCH ×2 (09:34→22:12)
[2017-09-08] MEDS: DOCUSATE SODIUM 50 MG/SENNA 8.6 MG TAB PO SCH ×2 (09:34→22:11)
[2017-09-08] MEDS: PYRIDOXINE HCL 50 MG TAB PO SCH (09:34)
[2017-09-08] MEDS: ESCITALOPRAM OXALATE 10 MG TAB PO SCH (09:34)
[2017-09-08] MEDS: CYPROHEPTADINE HCL 4 MG TAB PO SCH ×2 (09:34→22:11)
[2017-09-08] MEDS: ZINC OXIDE 40% OINT 60 GM TUBE TOPICAL SCH ×2 (09:34→22:12)
[2017-09-08] MEDS: GABAPENTIN 400 MG CAP PO SCH ×4 (09:34→22:11)
[2017-09-08] MEDS: CYCLOBENZAPRINE HCL 10 MG TAB PO SCH ×3 (09:34→18:05)
[2017-09-08] MEDS: SODIUM HYPOCHLORITE 0.25% 500 ML BTL TOPICAL SCH (09:34)
[2017-09-08] MEDS: MORPHINE SULFATE 2 MG/ML SYRINGE IV PUSH PRN ×2 (09:35→22:14)
[2017-09-08 12:00] VITALS: BP 126/62; PULSE 82; RESP 18; TEMP 98.6; O2SAT 96
[2017-09-08 16:00] VITALS: BP 148/78; PULSE 88; RESP 18; TEMP 98.1; O2SAT 96
[2017-09-08] MEDS: ENOXAPARIN SODIUM 40 MG/0.4 ML SYRINGE SQ SCH (18:06)
[2017-09-08 20:00] VITALS: BP 161/93; PULSE 105; RESP 19; TEMP 97.9; O2SAT 93
[2017-09-08 21:00] VITALS: BP 158/90
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
[2017-09-08] MEDS: MIRTAZAPINE 15 MG TAB PO SCH (22:10)
[2017-09-09] MEDS: LACTOBACILLUS ACIDOPHILUS TAB PO SCH ×2 (09:00→21:08)
[2017-09-09] MEDS: SODIUM CHLORIDE 0.9% FLUSH 10 ML FLUSH IVF SCH (09:00)
[2017-09-09 09:13] VITALS: BP 128/82; PULSE 108; RESP 18; TEMP 98.8; O2SAT 97
[2017-09-09] MEDS: CYCLOBENZAPRINE HCL 10 MG TAB PO SCH ×3 (09:59→17:24)
[2017-09-09] MEDS: GABAPENTIN 400 MG CAP PO SCH ×4 (09:59→21:09)
[2017-09-09] MEDS: DOCUSATE SODIUM 50 MG/SENNA 8.6 MG TAB PO SCH ×2 (09:59→21:09)
[2017-09-09] MEDS: PYRIDOXINE HCL 50 MG TAB PO SCH (09:59)
[2017-09-09] MEDS: ESCITALOPRAM OXALATE 10 MG TAB PO SCH (09:59)
[2017-09-09] MEDS: SODIUM HYPOCHLORITE 0.25% 500 ML BTL TOPICAL SCH (09:59)
[2017-09-09] MEDS: FERROUS SULFATE 325 MG (65 MG ELEMENTAL IRON) TAB PO SCH (09:59)
[2017-09-09] MEDS: CYPROHEPTADINE HCL 4 MG TAB PO SCH ×2 (09:59→21:09)
[2017-09-09] MEDS: SODIUM CHLORIDE 0.9% FLUSH 10 ML FLUSH IV FLUSH SCH ×2 (09:59→21:09)
[2017-09-09] MEDS: ZINC OXIDE 40% OINT 60 GM TUBE TOPICAL SCH ×2 (09:59→21:00)
[2017-09-09 13:02] VITALS: BP 128/88; PULSE 114; RESP 20; TEMP 97.9; O2SAT 97
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
[2017-09-09] MEDS: MORPHINE SULFATE 2 MG/ML SYRINGE IV PUSH PRN ×2 (15:42→22:10)
[2017-09-09 17:22] VITALS: BP 124/89; PULSE 113; RESP 20; TEMP 97.7; O2SAT 97
[2017-09-09] MEDS: ENOXAPARIN SODIUM 40 MG/0.4 ML SYRINGE SQ SCH (17:24)
[2017-09-09] MEDS: HYDROmorphone HCL 4 MG TAB PO PRN ×2 (17:24→21:08)
[2017-09-09 19:47] VITALS: BP 141/88; PULSE 112; RESP 18; TEMP 98.3; O2SAT 97
[2017-09-09] MEDS: MIRTAZAPINE 15 MG TAB PO SCH (21:09)
[2017-09-09] MEDS: SODIUM CHLORIDE 0.9% FLUSH 10 ML FLUSH IV FLUSH PRN (22:09)
[2017-09-09] MEDS: ALPRAZolam 0.25 MG TAB PO PRN (22:10)
[2017-09-10] VITALS: BP 125/68; PULSE 123; RESP 18; TEMP 98.1; O2SAT 95
[2017-09-10] MEDS: HYDROmorphone HCL 4 MG TAB PO PRN ×2 (02:11→05:49)
[2017-09-10 04:00] VITALS: BP 126/77; PULSE 122; RESP 18; TEMP 98.1; O2SAT 96
[2017-09-10] MEDS: SODIUM CHLORIDE 0.9% FLUSH 10 ML FLUSH IVF SCH (07:27)
[2017-09-10 08:00] VITALS: BP 130/86; PULSE 115; RESP 20; TEMP 98.6; O2SAT 95
[2017-09-10] MEDS: CYCLOBENZAPRINE HCL 10 MG TAB PO SCH ×3 (08:11→17:12)
[2017-09-10] MEDS: SODIUM CHLORIDE 0.9% FLUSH 10 ML FLUSH IV FLUSH SCH ×2 (08:11→21:00)
[2017-09-10] MEDS: LACTOBACILLUS ACIDOPHILUS TAB PO SCH ×2 (08:11→21:00)
[2017-09-10] MEDS: PYRIDOXINE HCL 50 MG TAB PO SCH (08:11)
[2017-09-10] MEDS: FERROUS SULFATE 325 MG (65 MG ELEMENTAL IRON) TAB PO SCH (08:11)
[2017-09-10] MEDS: CYPROHEPTADINE HCL 4 MG TAB PO SCH ×2 (08:11→21:00)
[2017-09-10] MEDS: ESCITALOPRAM OXALATE 10 MG TAB PO SCH (08:12)
[2017-09-10] MEDS: DOCUSATE SODIUM 50 MG/SENNA 8.6 MG TAB PO SCH ×2 (08:12→21:00)
[2017-09-10] MEDS: SODIUM HYPOCHLORITE 0.25% 500 ML BTL TOPICAL SCH (08:12)
[2017-09-10] MEDS: ZINC OXIDE 40% OINT 60 GM TUBE TOPICAL SCH ×2 (08:12→21:00)
[2017-09-10] MEDS: GABAPENTIN 400 MG CAP PO SCH ×4 (08:12→21:00)
[2017-09-10 12:00] VITALS: BP 127/74; PULSE 118; RESP 20; TEMP 98.4; O2SAT 95
[2017-09-10] MEDS: MORPHINE SULFATE 2 MG/ML SYRINGE IV PUSH PRN ×2 (13:00→22:30)
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
[2017-09-10 16:00] VITALS: BP 131/65; PULSE 110; RESP 20; TEMP 97.8; O2SAT 96
[2017-09-10] MEDS: ENOXAPARIN SODIUM 40 MG/0.4 ML SYRINGE SQ SCH (17:12)
[2017-09-10 20:00] VITALS: BP 119/72; PULSE 105; RESP 18; TEMP 98.3; O2SAT 95
[2017-09-10] MEDS: MIRTAZAPINE 15 MG TAB PO SCH (21:00)
[2017-09-11] VITALS: BP 122/72; PULSE 105; RESP 18; TEMP 97.9; O2SAT 95
[2017-09-11 08:00] VITALS: BP 121/80; PULSE 108; RESP 20; TEMP 98.2; O2SAT 94
[2017-09-11] MEDS: SODIUM CHLORIDE 0.9% FLUSH 10 ML FLUSH IVF SCH (08:39)
[2017-09-11] MEDS: SODIUM HYPOCHLORITE 0.25% 500 ML BTL TOPICAL SCH (08:40)
[2017-09-11] MEDS: CYCLOBENZAPRINE HCL 10 MG TAB PO SCH ×3 (08:40→17:22)
[2017-09-11] MEDS: ESCITALOPRAM OXALATE 10 MG TAB PO SCH (08:40)
[2017-09-11] MEDS: LACTOBACILLUS ACIDOPHILUS TAB PO SCH ×2 (08:40→22:06)
[2017-09-11] MEDS: SODIUM CHLORIDE 0.9% FLUSH 10 ML FLUSH IV FLUSH SCH ×2 (08:40→22:06)
[2017-09-11] MEDS: PYRIDOXINE HCL 50 MG TAB PO SCH (08:40)
[2017-09-11] MEDS: DOCUSATE SODIUM 50 MG/SENNA 8.6 MG TAB PO SCH ×2 (08:40→22:06)
[2017-09-11] MEDS: FERROUS SULFATE 325 MG (65 MG ELEMENTAL IRON) TAB PO SCH (08:40)
[2017-09-11] MEDS: GABAPENTIN 400 MG CAP PO SCH ×4 (08:40→22:05)
[2017-09-11] MEDS: CYPROHEPTADINE HCL 4 MG TAB PO SCH ×2 (08:40→22:05)
[2017-09-11] MEDS: ZINC OXIDE 40% OINT 60 GM TUBE TOPICAL SCH ×2 (08:41→22:07)
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
[2017-09-11 12:00] VITALS: BP 119/75; PULSE 98; RESP 20; TEMP 98.5; O2SAT 96
[2017-09-11] MEDS: MORPHINE SULFATE 2 MG/ML SYRINGE IV PUSH PRN ×2 (12:45→22:07)
[2017-09-11 16:00] VITALS: BP 140/75; PULSE 104; RESP 20; TEMP 98.5; O2SAT 96
[2017-09-11] MEDS: ENOXAPARIN SODIUM 40 MG/0.4 ML SYRINGE SQ SCH (17:22)
[2017-09-11 20:00] VITALS: BP 152/102; PULSE 99; RESP 16; TEMP 99; O2SAT 94
[2017-09-11] MEDS: MIRTAZAPINE 15 MG TAB PO SCH (22:05)
[2017-09-11] MEDS: ALPRAZolam 0.25 MG TAB PO PRN (23:14)
[2017-09-12 08:05] VITALS: BP 124/68; PULSE 98; RESP 17; TEMP 97.5; O2SAT 97
[2017-09-12] MEDS: SODIUM HYPOCHLORITE 0.25% 500 ML BTL TOPICAL SCH (09:00)
[2017-09-12] MEDS: ZINC OXIDE 40% OINT 60 GM TUBE TOPICAL SCH ×2 (09:00→21:00)
[2017-09-12] MEDS: ESCITALOPRAM OXALATE 10 MG TAB PO SCH (09:00)
[2017-09-12] MEDS: GABAPENTIN 400 MG CAP PO SCH ×4 (09:13→22:09)
[2017-09-12] MEDS: CYPROHEPTADINE HCL 4 MG TAB PO SCH ×2 (09:13→22:08)
[2017-09-12] MEDS: FERROUS SULFATE 325 MG (65 MG ELEMENTAL IRON) TAB PO SCH (09:13)
[2017-09-12] MEDS: LACTOBACILLUS ACIDOPHILUS TAB PO SCH ×2 (09:13→22:09)
[2017-09-12] MEDS: PYRIDOXINE HCL 50 MG TAB PO SCH (09:13)
[2017-09-12] MEDS: CYCLOBENZAPRINE HCL 10 MG TAB PO SCH ×3 (09:14→18:44)
[2017-09-12] MEDS: SODIUM CHLORIDE 0.9% FLUSH 10 ML FLUSH IV FLUSH SCH ×2 (09:14→22:09)
[2017-09-12] MEDS: DOCUSATE SODIUM 50 MG/SENNA 8.6 MG TAB PO SCH ×2 (09:14→22:09)
[2017-09-12] MEDS: SELENIUM SULFIDE 1% SHAMPOO 207 ML BOTTLE TOPICAL SCH (09:15)
[2017-09-12 12:05] VITALS: BP 120/60; PULSE 101; RESP 17; TEMP 98.3; O2SAT 97
[2017-09-12] MEDS: MORPHINE SULFATE 2 MG/ML SYRINGE IV PUSH PRN ×2 (13:22→22:21)
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
[2017-09-12 16:19] VITALS: BP 146/89; PULSE 92; RESP 17; TEMP 98; O2SAT 99
[2017-09-12] MEDS: ENOXAPARIN SODIUM 40 MG/0.4 ML SYRINGE SQ SCH (18:44)
[2017-09-12 20:00] VITALS: BP 133/80; PULSE 115; RESP 18; TEMP 98; O2SAT 98
[2017-09-12] MEDS: MIRTAZAPINE 15 MG TAB PO SCH (22:09)
[2017-09-12] MEDS: ALPRAZolam 0.25 MG TAB PO PRN (23:34)
[2017-09-13] VITALS: BP 123/71; PULSE 109; RESP 18; TEMP 98.6; O2SAT 95
[2017-09-13 08:19] VITALS: BP 131/97; PULSE 101; RESP 17; TEMP 97.4; O2SAT 99
[2017-09-13] MEDS: DOCUSATE SODIUM 50 MG/SENNA 8.6 MG TAB PO SCH ×2 (08:58→22:42)
[2017-09-13] MEDS: LACTOBACILLUS ACIDOPHILUS TAB PO SCH ×2 (08:59→22:42)
[2017-09-13] MEDS: PYRIDOXINE HCL 50 MG TAB PO SCH (08:59)
[2017-09-13] MEDS: FERROUS SULFATE 325 MG (65 MG ELEMENTAL IRON) TAB PO SCH (08:59)
[2017-09-13] MEDS: GABAPENTIN 400 MG CAP PO SCH ×4 (08:59→22:42)
[2017-09-13] MEDS: CYCLOBENZAPRINE HCL 10 MG TAB PO SCH ×3 (08:59→18:00)
[2017-09-13] MEDS: CYPROHEPTADINE HCL 4 MG TAB PO SCH ×2 (08:59→22:42)
[2017-09-13] MEDS: ESCITALOPRAM OXALATE 10 MG TAB PO SCH (09:00)
[2017-09-13] MEDS: SODIUM CHLORIDE 0.9% FLUSH 10 ML FLUSH IV FLUSH SCH ×2 (09:00→22:43)
[2017-09-13] MEDS: SODIUM CHLORIDE 0.9% FLUSH 10 ML FLUSH IVF SCH (09:00)
[2017-09-13] MEDS: ZINC OXIDE 40% OINT 60 GM TUBE TOPICAL SCH ×2 (09:03→21:00)
[2017-09-13] MEDS: SODIUM HYPOCHLORITE 0.25% 500 ML BTL TOPICAL SCH (09:03)
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
[2017-09-13 12:18] VITALS: BP 122/85; PULSE 100; RESP 17; TEMP 98.2; O2SAT 98
[2017-09-13] MEDS: MORPHINE SULFATE 2 MG/ML SYRINGE IV PUSH PRN ×2 (12:37→22:43)
[2017-09-13 16:02] VITALS: BP 148/91; PULSE 113; RESP 18; TEMP 97.9; O2SAT 99
[2017-09-13] MEDS: ENOXAPARIN SODIUM 40 MG/0.4 ML SYRINGE SQ SCH (16:26)
[2017-09-13] MEDS: HYDROmorphone HCL 4 MG TAB PO PRN (16:27)
[2017-09-13 20:00] VITALS: BP 153/87; PULSE 114; RESP 19; TEMP 98.8; O2SAT 97
[2017-09-13] MEDS: MIRTAZAPINE 15 MG TAB PO SCH (22:42)
[2017-09-13] MEDS: ALPRAZolam 0.25 MG TAB PO PRN (22:42)
[2017-09-14] VITALS: BP 142/87; PULSE 107; RESP 18; TEMP 98.8; O2SAT 95
[2017-09-14] MEDS: HYDROmorphone HCL 4 MG TAB PO PRN ×2 (03:09→19:42)
[2017-09-14 04:00] VITALS: BP 138/76; PULSE 105; RESP 20; TEMP 98.6; O2SAT 95
[2017-09-14 08:00] VITALS: BP 157/94; PULSE 93; RESP 20; TEMP 97.9; O2SAT 97
[2017-09-14] MEDS: SODIUM CHLORIDE 0.9% FLUSH 10 ML FLUSH IVF SCH (09:00)
[2017-09-14] MEDS: DOCUSATE SODIUM 50 MG/SENNA 8.6 MG TAB PO SCH ×2 (09:00→21:31)
[2017-09-14] MEDS: CYPROHEPTADINE HCL 4 MG TAB PO SCH ×2 (10:24→21:31)
[2017-09-14] MEDS: GABAPENTIN 400 MG CAP PO SCH ×4 (10:24→21:31)
[2017-09-14] MEDS: CYCLOBENZAPRINE HCL 10 MG TAB PO SCH ×3 (10:24→19:43)
[2017-09-14] MEDS: ESCITALOPRAM OXALATE 10 MG TAB PO SCH (10:24)
[2017-09-14] MEDS: FERROUS SULFATE 325 MG (65 MG ELEMENTAL IRON) TAB PO SCH (10:24)
[2017-09-14] MEDS: PYRIDOXINE HCL 50 MG TAB PO SCH (10:24)
[2017-09-14] MEDS: LACTOBACILLUS ACIDOPHILUS TAB PO SCH ×2 (10:24→21:31)
[2017-09-14] MEDS: SODIUM HYPOCHLORITE 0.25% 500 ML BTL TOPICAL SCH (10:25)
[2017-09-14] MEDS: SODIUM CHLORIDE 0.9% FLUSH 10 ML FLUSH IV FLUSH SCH ×2 (10:25→21:32)
[2017-09-14] MEDS: ZINC OXIDE 40% OINT 60 GM TUBE TOPICAL SCH ×2 (10:25→21:34)
[2017-09-14 12:00] VITALS: BP 127/76; PULSE 99; RESP 20; TEMP 97.5; O2SAT 96
[2017-09-14] MEDS: MORPHINE SULFATE 2 MG/ML SYRINGE IV PUSH PRN (12:53)
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
[2017-09-14 16:00] VITALS: BP 147/98; PULSE 95; RESP 20; TEMP 97.9; O2SAT 96
[2017-09-14] MEDS: ENOXAPARIN SODIUM 40 MG/0.4 ML SYRINGE SQ SCH (19:43)
[2017-09-14] MEDS: MIRTAZAPINE 15 MG TAB PO SCH (21:31)
[2017-09-14] MEDS: ALPRAZolam 0.25 MG TAB PO PRN (21:32)
[2017-09-15] VITALS: BP 148/74; PULSE 122; RESP 18; TEMP 98.1; O2SAT 94
[2017-09-15] MEDS: MORPHINE SULFATE 2 MG/ML SYRINGE IV PUSH PRN ×2 (00:49→16:09)
[2017-09-15 08:00] VITALS: BP 146/69; PULSE 98; RESP 20; TEMP 97.4; O2SAT 95
[2017-09-15] MEDS: LACTOBACILLUS ACIDOPHILUS TAB PO SCH ×2 (09:00→21:12)
[2017-09-15] MEDS: SODIUM CHLORIDE 0.9% FLUSH 10 ML FLUSH IVF SCH (09:00)
[2017-09-15] MEDS: DOCUSATE SODIUM 50 MG/SENNA 8.6 MG TAB PO SCH ×2 (09:38→21:13)
[2017-09-15] MEDS: FERROUS SULFATE 325 MG (65 MG ELEMENTAL IRON) TAB PO SCH (09:39)
[2017-09-15] MEDS: PYRIDOXINE HCL 50 MG TAB PO SCH (09:39)
[2017-09-15] MEDS: GABAPENTIN 400 MG CAP PO SCH ×4 (09:39→21:12)
[2017-09-15] MEDS: CYCLOBENZAPRINE HCL 10 MG TAB PO SCH ×3 (09:39→18:12)
[2017-09-15] MEDS: ESCITALOPRAM OXALATE 10 MG TAB PO SCH (09:39)
[2017-09-15] MEDS: CYPROHEPTADINE HCL 4 MG TAB PO SCH ×2 (09:39→21:12)
[2017-09-15] MEDS: SODIUM CHLORIDE 0.9% FLUSH 10 ML FLUSH IV FLUSH SCH ×2 (09:40→21:14)
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
[2017-09-15 12:00] VITALS: BP 136/83; PULSE 95; RESP 20; TEMP 97.3; O2SAT 97
[2017-09-15 16:00] VITALS: BP 140/74; PULSE 98; RESP 20; TEMP 97.6; O2SAT 97
[2017-09-15] MEDS: ENOXAPARIN SODIUM 40 MG/0.4 ML SYRINGE SQ SCH (16:10)
[2017-09-15] MEDS: ZINC OXIDE 40% OINT 60 GM TUBE TOPICAL SCH ×2 (16:12→21:00)
[2017-09-15] MEDS: SODIUM HYPOCHLORITE 0.25% 500 ML BTL TOPICAL SCH (16:12)
[2017-09-15 20:00] VITALS: BP 141/93; PULSE 106; RESP 20; TEMP 98; O2SAT 98
[2017-09-15] MEDS: MIRTAZAPINE 15 MG TAB PO SCH (21:12)
[2017-09-15] MEDS: ALPRAZolam 0.25 MG TAB PO PRN (21:12)
[2017-09-16] VITALS: BP 156/94; PULSE 110; RESP 18; TEMP 98.7; O2SAT 96
[2017-09-16] MEDS: MORPHINE SULFATE 2 MG/ML SYRINGE IV PUSH PRN ×3 (00:21→22:53)
[2017-09-16 08:00] VITALS: BP 124/73; PULSE 100; RESP 22; TEMP 97.5; O2SAT 94
[2017-09-16] MEDS: LACTOBACILLUS ACIDOPHILUS TAB PO SCH ×2 (09:00→21:44)
[2017-09-16] MEDS: SODIUM CHLORIDE 0.9% FLUSH 10 ML FLUSH IVF SCH (09:00)
[2017-09-16] MEDS: ESCITALOPRAM OXALATE 10 MG TAB PO SCH (09:07)
[2017-09-16] MEDS: CYPROHEPTADINE HCL 4 MG TAB PO SCH ×2 (09:08→21:44)
[2017-09-16] MEDS: CYCLOBENZAPRINE HCL 10 MG TAB PO SCH ×3 (09:08→17:36)
[2017-09-16] MEDS: FERROUS SULFATE 325 MG (65 MG ELEMENTAL IRON) TAB PO SCH (09:08)
[2017-09-16] MEDS: PYRIDOXINE HCL 50 MG TAB PO SCH (09:08)
[2017-09-16] MEDS: DOCUSATE SODIUM 50 MG/SENNA 8.6 MG TAB PO SCH ×2 (09:08→21:44)
[2017-09-16] MEDS: GABAPENTIN 400 MG CAP PO SCH ×4 (09:08→21:44)
[2017-09-16] MEDS: ZINC OXIDE 40% OINT 60 GM TUBE TOPICAL SCH ×2 (09:09→21:45)
[2017-09-16] MEDS: SODIUM HYPOCHLORITE 0.25% 500 ML BTL TOPICAL SCH (09:09)
[2017-09-16] MEDS: SODIUM CHLORIDE 0.9% FLUSH 10 ML FLUSH IV FLUSH SCH ×2 (09:10→21:43)
[2017-09-16 12:00] VITALS: BP 130/82; PULSE 105; RESP 22; TEMP 98; O2SAT 97
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
[2017-09-16 16:00] VITALS: BP 144/88; PULSE 106; RESP 22; TEMP 98.3; O2SAT 98
[2017-09-16] MEDS: ENOXAPARIN SODIUM 40 MG/0.4 ML SYRINGE SQ SCH (17:36)
[2017-09-16] MEDS: HYDROmorphone HCL 4 MG TAB PO PRN ×2 (17:44→21:44)
[2017-09-16 20:00] VITALS: BP 144/85; PULSE 119; RESP 21; TEMP 98.6; O2SAT 95
[2017-09-16] MEDS: MIRTAZAPINE 15 MG TAB PO SCH (21:44)
[2017-09-16] MEDS: ALPRAZolam 0.25 MG TAB PO PRN (22:53)
[2017-09-17 00:18] VITALS: BP 134/77; PULSE 116; RESP 20; TEMP 98; O2SAT 95
[2017-09-17] MEDS: HYDROmorphone HCL 4 MG TAB PO PRN ×2 (01:39→23:07)
[2017-09-17 08:02] VITALS: BP 147/69; PULSE 100; RESP 17; TEMP 97.7; O2SAT 95
[2017-09-17] MEDS: ZINC OXIDE 40% OINT 60 GM TUBE TOPICAL SCH ×2 (09:00→20:57)
[2017-09-17] MEDS: SODIUM HYPOCHLORITE 0.25% 500 ML BTL TOPICAL SCH (09:00)
[2017-09-17] MEDS: SODIUM CHLORIDE 0.9% FLUSH 10 ML FLUSH IVF SCH (09:00)
[2017-09-17] MEDS: ESCITALOPRAM OXALATE 10 MG TAB PO SCH (10:22)
[2017-09-17] MEDS: CYPROHEPTADINE HCL 4 MG TAB PO SCH ×2 (10:22→20:56)
[2017-09-17] MEDS: DOCUSATE SODIUM 50 MG/SENNA 8.6 MG TAB PO SCH ×2 (10:22→20:56)
[2017-09-17] MEDS: CYCLOBENZAPRINE HCL 10 MG TAB PO SCH ×3 (10:22→16:44)
[2017-09-17] MEDS: PYRIDOXINE HCL 50 MG TAB PO SCH (10:23)
[2017-09-17] MEDS: LACTOBACILLUS ACIDOPHILUS TAB PO SCH ×2 (10:23→20:56)
[2017-09-17] MEDS: GABAPENTIN 400 MG CAP PO SCH ×4 (10:23→20:56)
[2017-09-17] MEDS: SODIUM CHLORIDE 0.9% FLUSH 10 ML FLUSH IV FLUSH SCH ×2 (10:24→20:56)
[2017-09-17] MEDS: FERROUS SULFATE 325 MG (65 MG ELEMENTAL IRON) TAB PO SCH (10:24)
[2017-09-17] MEDS: MORPHINE SULFATE 2 MG/ML SYRINGE IV PUSH PRN ×2 (10:25→21:15)
[2017-09-17 12:08] VITALS: BP 136/91; PULSE 96; RESP 17; TEMP 98; O2SAT 97
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
[2017-09-17 16:12] VITALS: BP 141/85; PULSE 105; RESP 18; TEMP 97.5; O2SAT 98
[2017-09-17] MEDS: ENOXAPARIN SODIUM 40 MG/0.4 ML SYRINGE SQ SCH (16:44)
[2017-09-17] MEDS: oxyCODONE/ACETAMINOPHEN 5 MG/325 MG TAB PO PRN (18:52)
[2017-09-17 20:00] VITALS: BP 147/96; PULSE 100; RESP 19; TEMP 98.5; O2SAT 100
[2017-09-17] MEDS: MIRTAZAPINE 15 MG TAB PO SCH (20:56)
[2017-09-17] MEDS: ALPRAZolam 0.25 MG TAB PO PRN (20:56)
[2017-09-18] VITALS: BP 146/86; PULSE 100; RESP 18; TEMP 97.8; O2SAT 97
[2017-09-18 08:00] VITALS: BP_SYST 132; BP_SYST 135; BP_DIAS 81; BP_DIAS 88; PULSE 106; RESP 20; TEMP 97.8; O2SAT 95
[2017-09-18] MEDS: SODIUM CHLORIDE 0.9% FLUSH 10 ML FLUSH IVF SCH (09:00)
[2017-09-18] MEDS: PYRIDOXINE HCL 50 MG TAB PO SCH (09:46)
[2017-09-18] MEDS: CYPROHEPTADINE HCL 4 MG TAB PO SCH ×2 (09:46→20:35)
[2017-09-18] MEDS: CYCLOBENZAPRINE HCL 10 MG TAB PO SCH ×3 (09:46→17:34)
[2017-09-18] MEDS: GABAPENTIN 400 MG CAP PO SCH ×4 (09:46→20:35)
[2017-09-18] MEDS: FERROUS SULFATE 325 MG (65 MG ELEMENTAL IRON) TAB PO SCH (09:47)
[2017-09-18] MEDS: LACTOBACILLUS ACIDOPHILUS TAB PO SCH ×2 (09:47→20:35)
[2017-09-18] MEDS: SODIUM CHLORIDE 0.9% FLUSH 10 ML FLUSH IV FLUSH SCH ×2 (09:47→20:35)
[2017-09-18] MEDS: ESCITALOPRAM OXALATE 10 MG TAB PO SCH (09:47)
[2017-09-18] MEDS: DOCUSATE SODIUM 50 MG/SENNA 8.6 MG TAB PO SCH ×2 (09:47→20:34)
[2017-09-18] MEDS: SODIUM HYPOCHLORITE 0.25% 500 ML BTL TOPICAL SCH (09:48)
[2017-09-18] MEDS: ZINC OXIDE 40% OINT 60 GM TUBE TOPICAL SCH ×2 (09:49→20:35)
[2017-09-18] MEDS: MORPHINE SULFATE 2 MG/ML SYRINGE IV PUSH PRN ×2 (10:06→23:26)
[2017-09-18 12:00] VITALS: BP 140/83; PULSE 101; RESP 19; TEMP 97.9; O2SAT 99
[2017-09-18] MEDS: oxyCODONE/ACETAMINOPHEN 5 MG/325 MG TAB PO PRN ×2 (13:30→20:34)
[2017-09-18 16:00] VITALS: BP 147/86; PULSE 99; RESP 17; TEMP 98.1; O2SAT 97
[2017-09-18] MEDS: ENOXAPARIN SODIUM 40 MG/0.4 ML SYRINGE SQ SCH (17:34)
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
[2017-09-18 20:00] VITALS: BP 147/88; PULSE 109; RESP 18; TEMP 98.8; O2SAT 97
[2017-09-18] MEDS: MIRTAZAPINE 15 MG TAB PO SCH (20:34)
[2017-09-18] MEDS: ALPRAZolam 0.25 MG TAB PO PRN (20:34)
[2017-09-19] MEDS: SODIUM CHLORIDE 0.9% FLUSH 10 ML FLUSH IVF SCH (07:50)
[2017-09-19 08:00] VITALS: BP 136/76; PULSE 97; RESP 19; TEMP 98.3; O2SAT 97
[2017-09-19] MEDS: LACTOBACILLUS ACIDOPHILUS TAB PO SCH ×2 (09:00→21:00)
[2017-09-19] MEDS: FERROUS SULFATE 325 MG (65 MG ELEMENTAL IRON) TAB PO SCH (09:23)
[2017-09-19] MEDS: SODIUM CHLORIDE 0.9% FLUSH 10 ML FLUSH IV FLUSH SCH ×2 (09:23→21:48)
[2017-09-19] MEDS: CYPROHEPTADINE HCL 4 MG TAB PO SCH ×2 (09:24→21:34)
[2017-09-19] MEDS: DOCUSATE SODIUM 50 MG/SENNA 8.6 MG TAB PO SCH ×2 (09:24→21:34)
[2017-09-19] MEDS: PYRIDOXINE HCL 50 MG TAB PO SCH (09:24)
[2017-09-19] MEDS: GABAPENTIN 400 MG CAP PO SCH ×4 (09:24→21:34)
[2017-09-19] MEDS: SODIUM HYPOCHLORITE 0.25% 500 ML BTL TOPICAL SCH (09:24)
[2017-09-19] MEDS: ZINC OXIDE 40% OINT 60 GM TUBE TOPICAL SCH ×2 (09:24→21:00)
[2017-09-19] MEDS: CYCLOBENZAPRINE HCL 10 MG TAB PO SCH ×3 (09:24→17:54)
[2017-09-19] MEDS: ESCITALOPRAM OXALATE 10 MG TAB PO SCH (09:24)
[2017-09-19] MEDS: SELENIUM SULFIDE 1% SHAMPOO 207 ML BOTTLE TOPICAL SCH (09:25)
[2017-09-19 12:00] VITALS: BP 139/83; PULSE 98; RESP 17; TEMP 97.9; O2SAT 98
[2017-09-19] MEDS: MORPHINE SULFATE 2 MG/ML SYRINGE IV PUSH PRN ×2 (12:19→21:47)
[2017-09-19] MEDS: ONDANSETRON HCL 4 MG/2 ML VIAL IVP PRN (13:11)
[2017-09-19 16:00] VITALS: BP 142/79; PULSE 100; RESP 20; TEMP 98.2; O2SAT 98
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
[2017-09-19] MEDS: ENOXAPARIN SODIUM 40 MG/0.4 ML SYRINGE SQ SCH (17:54)
[2017-09-19] MEDS: oxyCODONE/ACETAMINOPHEN 5 MG/325 MG TAB PO PRN ×2 (19:52→23:29)
[2017-09-19 19:53] VITALS: BP 134/85; PULSE 121; RESP 18; TEMP 98.5; O2SAT 97
[2017-09-19] MEDS: ALPRAZolam 0.25 MG TAB PO PRN (21:34)
[2017-09-19] MEDS: MIRTAZAPINE 15 MG TAB PO SCH (21:34)
[2017-09-20] VITALS: BP 134/89; PULSE 122; RESP 18; TEMP 98.4; O2SAT 97
[2017-09-20] MEDS: oxyCODONE/ACETAMINOPHEN 5 MG/325 MG TAB PO PRN ×2 (04:00→12:36)
[2017-09-20] MEDS: SODIUM CHLORIDE 0.9% FLUSH 10 ML FLUSH IVF SCH (07:13)
[2017-09-20] MEDS: LACTOBACILLUS ACIDOPHILUS TAB PO SCH ×2 (07:14→21:48)
[2017-09-20 08:00] VITALS: BP 142/86; PULSE 115; RESP 20; TEMP 98.5; O2SAT 96
[2017-09-20] MEDS: FERROUS SULFATE 325 MG (65 MG ELEMENTAL IRON) TAB PO SCH (08:57)
[2017-09-20] MEDS: SODIUM CHLORIDE 0.9% FLUSH 10 ML FLUSH IV FLUSH SCH ×2 (08:57→21:50)
[2017-09-20] MEDS: SODIUM HYPOCHLORITE 0.25% 500 ML BTL TOPICAL SCH (08:58)
[2017-09-20] MEDS: CYCLOBENZAPRINE HCL 10 MG TAB PO SCH ×3 (08:58→17:57)
[2017-09-20] MEDS: PYRIDOXINE HCL 50 MG TAB PO SCH (08:58)
[2017-09-20] MEDS: ESCITALOPRAM OXALATE 10 MG TAB PO SCH (08:58)
[2017-09-20] MEDS: GABAPENTIN 400 MG CAP PO SCH ×4 (08:58→21:48)
[2017-09-20] MEDS: CYPROHEPTADINE HCL 4 MG TAB PO SCH ×2 (08:58→21:48)
[2017-09-20] MEDS: ZINC OXIDE 40% OINT 60 GM TUBE TOPICAL SCH ×2 (08:58→21:00)
[2017-09-20] MEDS: DOCUSATE SODIUM 50 MG/SENNA 8.6 MG TAB PO SCH ×2 (08:58→21:48)
[2017-09-20] MEDS: MORPHINE SULFATE 2 MG/ML SYRINGE IV PUSH PRN ×2 (08:59→21:49)
[2017-09-20 12:27] VITALS: BP 125/81; PULSE 113; RESP 20; TEMP 98.3; O2SAT 97
[2017-09-20 16:00] VITALS: BP 119/68; PULSE 104; RESP 20; TEMP 98.2; O2SAT 97
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
[2017-09-20] MEDS: ENOXAPARIN SODIUM 40 MG/0.4 ML SYRINGE SQ SCH (17:57)
[2017-09-20 20:00] VITALS: BP 153/89; PULSE 119; RESP 18; TEMP 97.9; O2SAT 95
[2017-09-20] MEDS: MIRTAZAPINE 15 MG TAB PO SCH (21:48)
[2017-09-20] MEDS: ALPRAZolam 0.25 MG TAB PO PRN (21:52)
[2017-09-21 08:00] VITALS: BP 144/95; PULSE 103; RESP 22; TEMP 97.3; O2SAT 95
[2017-09-21] MEDS: LACTOBACILLUS ACIDOPHILUS TAB PO SCH ×2 (09:00→23:34)
[2017-09-21] MEDS: SODIUM CHLORIDE 0.9% FLUSH 10 ML FLUSH IVF SCH (09:00)
[2017-09-21] MEDS: CYCLOBENZAPRINE HCL 10 MG TAB PO SCH ×3 (09:12→17:24)
[2017-09-21] MEDS: CYPROHEPTADINE HCL 4 MG TAB PO SCH ×2 (09:12→23:49)
[2017-09-21] MEDS: SODIUM CHLORIDE 0.9% FLUSH 10 ML FLUSH IV FLUSH SCH ×2 (09:12→21:00)
[2017-09-21] MEDS: FERROUS SULFATE 325 MG (65 MG ELEMENTAL IRON) TAB PO SCH (09:12)
[2017-09-21] MEDS: PYRIDOXINE HCL 50 MG TAB PO SCH (09:13)
[2017-09-21] MEDS: ZINC OXIDE 40% OINT 60 GM TUBE TOPICAL SCH ×2 (09:13→21:00)
[2017-09-21] MEDS: SODIUM HYPOCHLORITE 0.25% 500 ML BTL TOPICAL SCH (09:13)
[2017-09-21] MEDS: DOCUSATE SODIUM 50 MG/SENNA 8.6 MG TAB PO SCH ×2 (09:13→21:00)
[2017-09-21] MEDS: GABAPENTIN 400 MG CAP PO SCH ×4 (09:13→23:34)
[2017-09-21] MEDS: ESCITALOPRAM OXALATE 10 MG TAB PO SCH (09:13)
[2017-09-21] MEDS: MORPHINE SULFATE 2 MG/ML SYRINGE IV PUSH PRN (11:41)
[2017-09-21 12:00] VITALS: BP 144/101; PULSE 107; RESP 22; TEMP 97.5; O2SAT 95
[2017-09-21 16:00] VITALS: BP 135/90; PULSE 102; RESP 22; TEMP 97.9; O2SAT 97
[2017-09-21] MEDS: ENOXAPARIN SODIUM 40 MG/0.4 ML SYRINGE SQ SCH (17:24)
[2017-09-21] MEDS: HYDROmorphone HCL 4 MG TAB PO PRN (17:28)
[2017-09-21 22:28] VITALS: BP 134/72; PULSE 116; RESP 14; TEMP 97.8; O2SAT 95
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
[2017-09-21] MEDS: MIRTAZAPINE 15 MG TAB PO SCH (23:34)
[2017-09-21] MEDS: ALPRAZolam 0.25 MG TAB PO PRN (23:49)
[2017-09-22 08:01] VITALS: BP 116/71; PULSE 101; RESP 18; TEMP 97.3; O2SAT 97
[2017-09-22] MEDS: SODIUM CHLORIDE 0.9% FLUSH 10 ML FLUSH IVF SCH (09:00)
[2017-09-22] MEDS: PYRIDOXINE HCL 50 MG TAB PO SCH (09:43)
[2017-09-22] MEDS: ESCITALOPRAM OXALATE 10 MG TAB PO SCH (09:43)
[2017-09-22] MEDS: GABAPENTIN 400 MG CAP PO SCH ×4 (09:43→22:26)
[2017-09-22] MEDS: LACTOBACILLUS ACIDOPHILUS TAB PO SCH ×2 (09:43→22:25)
[2017-09-22] MEDS: ZINC OXIDE 40% OINT 60 GM TUBE TOPICAL SCH ×2 (09:43→22:27)
[2017-09-22] MEDS: CYPROHEPTADINE HCL 4 MG TAB PO SCH ×2 (09:43→22:26)
[2017-09-22] MEDS: DOCUSATE SODIUM 50 MG/SENNA 8.6 MG TAB PO SCH ×2 (09:43→22:26)
[2017-09-22] MEDS: CYCLOBENZAPRINE HCL 10 MG TAB PO SCH ×3 (09:43→17:20)
[2017-09-22] MEDS: SODIUM HYPOCHLORITE 0.25% 500 ML BTL TOPICAL SCH (09:43)
[2017-09-22] MEDS: FERROUS SULFATE 325 MG (65 MG ELEMENTAL IRON) TAB PO SCH (09:43)
[2017-09-22] MEDS: SODIUM CHLORIDE 0.9% FLUSH 10 ML FLUSH IV FLUSH SCH ×2 (09:44→22:28)
[2017-09-22] MEDS: MORPHINE SULFATE 2 MG/ML SYRINGE IV PUSH PRN ×2 (10:04→22:26)
[2017-09-22 12:01] VITALS: BP 102/57; PULSE 103; RESP 18; TEMP 97.5; O2SAT 96
[2017-09-22 16:01] VITALS: BP 143/88; PULSE 106; RESP 18; TEMP 98; O2SAT 98
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
[2017-09-22] MEDS: ENOXAPARIN SODIUM 40 MG/0.4 ML SYRINGE SQ SCH (17:20)
[2017-09-22] MEDS ORDERED: SIMETHICONE 125 MG CHEWABLE TAB PO ONE (17:30)
[2017-09-22 20:00] VITALS: BP 150/93; PULSE 113; RESP 18; TEMP 97.8; O2SAT 94
[2017-09-22] MEDS: MIRTAZAPINE 15 MG TAB PO SCH (22:26)
[2017-09-22] MEDS: ALPRAZolam 0.25 MG TAB PO PRN (23:03)
[2017-09-23 08:00] VITALS: BP 114/65; PULSE 96; RESP 20; TEMP 98; O2SAT 96
[2017-09-23] MEDS: LACTOBACILLUS ACIDOPHILUS TAB PO SCH ×2 (09:00→22:33)
[2017-09-23] MEDS: SODIUM CHLORIDE 0.9% FLUSH 10 ML FLUSH IVF SCH (09:00)
[2017-09-23] MEDS: ESCITALOPRAM OXALATE 10 MG TAB PO SCH (09:25)
[2017-09-23] MEDS: PYRIDOXINE HCL 50 MG TAB PO SCH (09:25)
[2017-09-23] MEDS: CYCLOBENZAPRINE HCL 10 MG TAB PO SCH ×3 (09:25→17:29)
[2017-09-23] MEDS: CYPROHEPTADINE HCL 4 MG TAB PO SCH ×2 (09:25→22:34)
[2017-09-23] MEDS: FERROUS SULFATE 325 MG (65 MG ELEMENTAL IRON) TAB PO SCH (09:25)
[2017-09-23] MEDS: DOCUSATE SODIUM 50 MG/SENNA 8.6 MG TAB PO SCH ×2 (09:25→22:34)
[2017-09-23] MEDS: GABAPENTIN 400 MG CAP PO SCH ×4 (09:25→22:33)
[2017-09-23] MEDS: SODIUM CHLORIDE 0.9% FLUSH 10 ML FLUSH IV FLUSH SCH ×2 (09:26→22:35)
[2017-09-23] MEDS: ZINC OXIDE 40% OINT 60 GM TUBE TOPICAL SCH ×2 (09:26→22:37)
[2017-09-23] MEDS: SODIUM HYPOCHLORITE 0.25% 500 ML BTL TOPICAL SCH ×2 (09:26→22:44)
[2017-09-23] MEDS: MORPHINE SULFATE 2 MG/ML SYRINGE IV PUSH PRN ×2 (09:26→22:34)
[2017-09-23 12:00] VITALS: BP 133/76; PULSE 93; RESP 20; TEMP 97.6; O2SAT 97
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
[2017-09-23 15:56] VITALS: BP 136/74; PULSE 91; RESP 20; TEMP 97.3; O2SAT 97
[2017-09-23] MEDS: ENOXAPARIN SODIUM 40 MG/0.4 ML SYRINGE SQ SCH (17:29)
[2017-09-23] MEDS: HYDROmorphone HCL 4 MG TAB PO PRN (17:41)
[2017-09-23 19:23] VITALS: BP 143/73; PULSE 103; RESP 14; TEMP 98.3; O2SAT 97
[2017-09-23] MEDS: MIRTAZAPINE 15 MG TAB PO SCH (22:33)
[2017-09-23] MEDS: ALPRAZolam 0.25 MG TAB PO PRN (22:34)
[2017-09-24 00:02] VITALS: BP 142/86; PULSE 103; RESP 16; TEMP 97.6; O2SAT 95
[2017-09-24] MEDS: HYDROmorphone HCL 4 MG TAB PO PRN ×2 (01:40→20:49)
[2017-09-24 08:00] VITALS: BP 136/75; PULSE 100; RESP 20; TEMP 97.3; O2SAT 96
[2017-09-24] MEDS: ZINC OXIDE 40% OINT 60 GM TUBE TOPICAL SCH ×2 (09:00→20:52)
[2017-09-24] MEDS: SODIUM CHLORIDE 0.9% FLUSH 10 ML FLUSH IV FLUSH SCH ×2 (09:00→20:51)
[2017-09-24] MEDS: SODIUM HYPOCHLORITE 0.25% 500 ML BTL TOPICAL SCH (09:00)
[2017-09-24] MEDS: CYPROHEPTADINE HCL 4 MG TAB PO SCH ×2 (09:00→20:49)
[2017-09-24] MEDS: SODIUM CHLORIDE 0.9% FLUSH 10 ML FLUSH IVF SCH (09:00)
[2017-09-24] MEDS: DOCUSATE SODIUM 50 MG/SENNA 8.6 MG TAB PO SCH ×2 (10:58→20:48)
[2017-09-24] MEDS: FERROUS SULFATE 325 MG (65 MG ELEMENTAL IRON) TAB PO SCH (10:58)
[2017-09-24] MEDS: GABAPENTIN 400 MG CAP PO SCH ×4 (10:58→20:49)
[2017-09-24] MEDS: ESCITALOPRAM OXALATE 10 MG TAB PO SCH (10:58)
[2017-09-24] MEDS: LACTOBACILLUS ACIDOPHILUS TAB PO SCH ×2 (10:58→20:48)
[2017-09-24] MEDS: CYCLOBENZAPRINE HCL 10 MG TAB PO SCH ×3 (10:58→17:48)
[2017-09-24] MEDS: PYRIDOXINE HCL 50 MG TAB PO SCH (11:03)
[2017-09-24 12:00] VITALS: BP 136/89; PULSE 93; RESP 20; TEMP 97.9; O2SAT 97
[2017-09-24 16:00] VITALS: BP 135/73; PULSE 107; RESP 20; TEMP 97.5; O2SAT 96
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
[2017-09-24] MEDS: ENOXAPARIN SODIUM 40 MG/0.4 ML SYRINGE SQ SCH (17:49)
[2017-09-24] MEDS: MORPHINE SULFATE 2 MG/ML SYRINGE IV PUSH PRN (18:12)
[2017-09-24 19:49] VITALS: BP 138/88; PULSE 103; RESP 20; TEMP 97.3; O2SAT 97
[2017-09-24] MEDS: MIRTAZAPINE 15 MG TAB PO SCH (20:48)
[2017-09-24] MEDS: ALPRAZolam 0.25 MG TAB PO PRN (20:49)
[2017-09-25] MEDS: SIMETHICONE 125 MG CHEWABLE TAB PO PRN (00:23)
[2017-09-25 00:24] VITALS: BP 138/81; PULSE 113; RESP 16; TEMP 97.9; O2SAT 95
[2017-09-25] MEDS: HYDROmorphone HCL 4 MG TAB PO PRN ×2 (00:41→23:33)
[2017-09-25] MEDS: MORPHINE SULFATE 2 MG/ML SYRINGE IV PUSH PRN ×3 (05:54→21:40)
[2017-09-25 08:00] VITALS: BP 124/71; PULSE 97; RESP 20; TEMP 97.7; O2SAT 95
[2017-09-25] MEDS: LACTOBACILLUS ACIDOPHILUS TAB PO SCH ×2 (09:00→21:00)
[2017-09-25] MEDS: SODIUM CHLORIDE 0.9% FLUSH 10 ML FLUSH IVF SCH (09:00)
[2017-09-25] MEDS: CYCLOBENZAPRINE HCL 10 MG TAB PO SCH ×3 (09:35→17:37)
[2017-09-25] MEDS: CYPROHEPTADINE HCL 4 MG TAB PO SCH ×2 (09:35→21:30)
[2017-09-25] MEDS: ESCITALOPRAM OXALATE 10 MG TAB PO SCH (09:35)
[2017-09-25] MEDS: PYRIDOXINE HCL 50 MG TAB PO SCH (09:35)
[2017-09-25] MEDS: GABAPENTIN 400 MG CAP PO SCH ×4 (09:35→21:31)
[2017-09-25] MEDS: FERROUS SULFATE 325 MG (65 MG ELEMENTAL IRON) TAB PO SCH (09:35)
[2017-09-25] MEDS: DOCUSATE SODIUM 50 MG/SENNA 8.6 MG TAB PO SCH ×2 (09:35→21:30)
[2017-09-25] MEDS: SODIUM CHLORIDE 0.9% FLUSH 10 ML FLUSH IV FLUSH SCH ×2 (09:35→21:33)
[2017-09-25 12:00] VITALS: BP 110/68; PULSE 98; RESP 20; TEMP 97.2; O2SAT 95
[2017-09-25] MEDS: SODIUM HYPOCHLORITE 0.25% 500 ML BTL TOPICAL SCH (12:15)
[2017-09-25] MEDS: ZINC OXIDE 40% OINT 60 GM TUBE TOPICAL SCH ×2 (12:18→21:32)
[2017-09-25 16:00] VITALS: BP 145/79; PULSE 106; RESP 20; TEMP 98.5; O2SAT 95
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
[2017-09-25] MEDS: ENOXAPARIN SODIUM 40 MG/0.4 ML SYRINGE SQ SCH (17:38)
[2017-09-25 20:45] VITALS: BP 138/77; PULSE 109; RESP 17; TEMP 98.2; O2SAT 97
[2017-09-25] MEDS: ALPRAZolam 0.25 MG TAB PO PRN (21:31)
[2017-09-25] MEDS: MIRTAZAPINE 15 MG TAB PO SCH (21:31)
[2017-09-25] MEDS: SODIUM CHLORIDE 0.9% FLUSH 10 ML FLUSH IV FLUSH PRN (21:40)
[2017-09-26 08:04] VITALS: BP 120/76; PULSE 103; RESP 18; TEMP 97.4; O2SAT 95
[2017-09-26] MEDS: LACTOBACILLUS ACIDOPHILUS TAB PO SCH ×2 (09:00→21:00)
[2017-09-26] MEDS: SODIUM CHLORIDE 0.9% FLUSH 10 ML FLUSH IVF SCH (09:00)
[2017-09-26] MEDS: FERROUS SULFATE 325 MG (65 MG ELEMENTAL IRON) TAB PO SCH (09:27)
[2017-09-26] MEDS: CYCLOBENZAPRINE HCL 10 MG TAB PO SCH ×3 (09:27→17:42)
[2017-09-26] MEDS: CYPROHEPTADINE HCL 4 MG TAB PO SCH ×2 (09:27→22:47)
[2017-09-26] MEDS: GABAPENTIN 400 MG CAP PO SCH ×4 (09:28→22:48)
[2017-09-26] MEDS: SODIUM CHLORIDE 0.9% FLUSH 10 ML FLUSH IV FLUSH SCH ×2 (09:28→21:00)
[2017-09-26] MEDS: DOCUSATE SODIUM 50 MG/SENNA 8.6 MG TAB PO SCH ×2 (09:28→22:48)
[2017-09-26] MEDS: PYRIDOXINE HCL 50 MG TAB PO SCH (09:28)
[2017-09-26] MEDS: ESCITALOPRAM OXALATE 10 MG TAB PO SCH (09:28)
[2017-09-26] MEDS: MORPHINE SULFATE 2 MG/ML SYRINGE IV PUSH PRN (11:57)
[2017-09-26] MEDS: SODIUM HYPOCHLORITE 0.25% 500 ML BTL TOPICAL SCH (12:01)
[2017-09-26] MEDS: ZINC OXIDE 40% OINT 60 GM TUBE TOPICAL SCH ×2 (12:02→21:00)
[2017-09-26] MEDS: SELENIUM SULFIDE 1% SHAMPOO 207 ML BOTTLE TOPICAL SCH (12:02)
[2017-09-26 12:04] VITALS: BP 134/69; PULSE 99; RESP 18; TEMP 97.5; O2SAT 99
[2017-09-26 16:04] VITALS: BP 148/88; PULSE 107; RESP 18; TEMP 97.6; O2SAT 97
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
[2017-09-26] MEDS: ENOXAPARIN SODIUM 40 MG/0.4 ML SYRINGE SQ SCH (17:41)
[2017-09-26] MEDS: HYDROmorphone HCL 4 MG TAB PO PRN ×2 (17:42→22:47)
[2017-09-26 20:36] VITALS: BP 132/84; PULSE 103; TEMP 98.3; O2SAT 98
[2017-09-26] MEDS: MIRTAZAPINE 15 MG TAB PO SCH (22:46)
[2017-09-26] MEDS: ALPRAZolam 0.25 MG TAB PO PRN (22:46)
[2017-09-27] VITALS: BP 144/86; PULSE 107; RESP 20; TEMP 97.5; O2SAT 96
[2017-09-27] MEDS: SODIUM CHLORIDE 0.9% FLUSH 10 ML FLUSH IV FLUSH PRN (00:50)
[2017-09-27] MEDS: MORPHINE SULFATE 2 MG/ML SYRINGE IV PUSH PRN ×3 (00:50→22:30)
[2017-09-27 08:01] VITALS: BP 123/61; PULSE 100; RESP 18; TEMP 98; O2SAT 96
[2017-09-27] MEDS: GABAPENTIN 400 MG CAP PO SCH ×4 (08:56→22:31)
[2017-09-27] MEDS: FERROUS SULFATE 325 MG (65 MG ELEMENTAL IRON) TAB PO SCH (08:56)
[2017-09-27] MEDS: CYCLOBENZAPRINE HCL 10 MG TAB PO SCH ×3 (08:56→18:30)
[2017-09-27] MEDS: ESCITALOPRAM OXALATE 10 MG TAB PO SCH (08:56)
[2017-09-27] MEDS: LACTOBACILLUS ACIDOPHILUS TAB PO SCH ×2 (08:56→21:00)
[2017-09-27] MEDS: CYPROHEPTADINE HCL 4 MG TAB PO SCH ×2 (08:56→22:31)
[2017-09-27] MEDS: DOCUSATE SODIUM 50 MG/SENNA 8.6 MG TAB PO SCH ×2 (08:57→22:31)
[2017-09-27] MEDS: SODIUM CHLORIDE 0.9% FLUSH 10 ML FLUSH IV FLUSH SCH ×2 (08:57→22:31)
[2017-09-27] MEDS: SODIUM HYPOCHLORITE 0.25% 500 ML BTL TOPICAL SCH ×2 (08:59→12:54)
[2017-09-27] MEDS: SODIUM CHLORIDE 0.9% FLUSH 10 ML FLUSH IVF SCH (09:00)
[2017-09-27] MEDS: PYRIDOXINE HCL 50 MG TAB PO SCH (10:40)
[2017-09-27 12:01] VITALS: BP 113/68; PULSE 99; RESP 18; TEMP 97.5; O2SAT 99
[2017-09-27] MEDS: ZINC OXIDE 40% OINT 60 GM TUBE TOPICAL SCH ×2 (12:54→22:32)
[2017-09-27 16:01] VITALS: BP 129/68; PULSE 100; RESP 18; TEMP 97.6; O2SAT 97
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
[2017-09-27] MEDS: ENOXAPARIN SODIUM 40 MG/0.4 ML SYRINGE SQ SCH (18:31)
[2017-09-27 20:00] VITALS: BP 149/85; PULSE 112; RESP 20; TEMP 98.2; O2SAT 95
[2017-09-27] MEDS: MIRTAZAPINE 15 MG TAB PO SCH (22:30)
[2017-09-27] MEDS: ALPRAZolam 0.25 MG TAB PO PRN (23:07)
[2017-09-28] VITALS: BP 121/67; PULSE 122; RESP 20; TEMP 98; O2SAT 95
[2017-09-28 04:00] VITALS: BP 135/77; PULSE 110; RESP 19; TEMP 98.9; O2SAT 95
[2017-09-28 08:00] VITALS: BP 130/77; PULSE 98; RESP 20; TEMP 98.1; O2SAT 96
[2017-09-28] MEDS: SODIUM CHLORIDE 0.9% FLUSH 10 ML FLUSH IVF SCH (09:00)
[2017-09-28] MEDS: PYRIDOXINE HCL 50 MG TAB PO SCH (09:37)
[2017-09-28] MEDS: SODIUM CHLORIDE 0.9% FLUSH 10 ML FLUSH IV FLUSH SCH ×2 (09:37→23:04)
[2017-09-28] MEDS: LACTOBACILLUS ACIDOPHILUS TAB PO SCH ×2 (09:37→21:00)
[2017-09-28] MEDS: FERROUS SULFATE 325 MG (65 MG ELEMENTAL IRON) TAB PO SCH (09:37)
[2017-09-28] MEDS: CYPROHEPTADINE HCL 4 MG TAB PO SCH ×2 (09:37→22:50)
[2017-09-28] MEDS: GABAPENTIN 400 MG CAP PO SCH ×4 (09:38→22:50)
[2017-09-28] MEDS: CYCLOBENZAPRINE HCL 10 MG TAB PO SCH ×3 (09:38→17:39)
[2017-09-28] MEDS: SODIUM HYPOCHLORITE 0.25% 500 ML BTL TOPICAL SCH (09:38)
[2017-09-28] MEDS: ESCITALOPRAM OXALATE 10 MG TAB PO SCH (09:38)
[2017-09-28] MEDS: DOCUSATE SODIUM 50 MG/SENNA 8.6 MG TAB PO SCH ×2 (09:38→22:50)
[2017-09-28] MEDS: ZINC OXIDE 40% OINT 60 GM TUBE TOPICAL SCH ×2 (09:39→21:00)
[2017-09-28 12:00] VITALS: BP 135/82; PULSE 96; RESP 20; TEMP 97.7; O2SAT 95
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
[2017-09-28 16:00] VITALS: BP 127/68; PULSE 98; RESP 20; TEMP 98; O2SAT 98
[2017-09-28] MEDS: MORPHINE SULFATE 2 MG/ML SYRINGE IV PUSH PRN ×2 (16:05→22:59)
[2017-09-28] MEDS: ENOXAPARIN SODIUM 40 MG/0.4 ML SYRINGE SQ SCH (17:40)
[2017-09-28 20:00] VITALS: BP 127/79; PULSE 113; RESP 18; TEMP 97.1; O2SAT 98
[2017-09-28] MEDS: MIRTAZAPINE 15 MG TAB PO SCH (22:50)
[2017-09-28] MEDS: ALPRAZolam 0.25 MG TAB PO PRN (22:50)
[2017-09-29] VITALS: BP 130/86; PULSE 107; RESP 20; TEMP 98; O2SAT 96
[2017-09-29] MEDS: oxyCODONE/ACETAMINOPHEN 5 MG/325 MG TAB PO PRN ×4 (00:35→23:52)
[2017-09-29 08:00] VITALS: BP 135/89; PULSE 100; RESP 22; TEMP 97.8; O2SAT 95
[2017-09-29] MEDS: SODIUM CHLORIDE 0.9% FLUSH 10 ML FLUSH IVF SCH (09:00)
[2017-09-29] MEDS: LACTOBACILLUS ACIDOPHILUS TAB PO SCH ×2 (09:00→21:00)
[2017-09-29] MEDS: FERROUS SULFATE 325 MG (65 MG ELEMENTAL IRON) TAB PO SCH (09:49)
[2017-09-29] MEDS: DOCUSATE SODIUM 50 MG/SENNA 8.6 MG TAB PO SCH ×2 (09:50→21:19)
[2017-09-29] MEDS: ESCITALOPRAM OXALATE 10 MG TAB PO SCH (09:50)
[2017-09-29] MEDS: PYRIDOXINE HCL 50 MG TAB PO SCH (09:50)
[2017-09-29] MEDS: GABAPENTIN 400 MG CAP PO SCH ×4 (09:51→21:19)
[2017-09-29] MEDS: CYPROHEPTADINE HCL 4 MG TAB PO SCH ×2 (09:51→21:19)
[2017-09-29] MEDS: CYCLOBENZAPRINE HCL 10 MG TAB PO SCH ×3 (09:51→17:34)
[2017-09-29] MEDS: SODIUM CHLORIDE 0.9% FLUSH 10 ML FLUSH IV FLUSH SCH ×2 (09:52→21:00)
[2017-09-29] MEDS: SODIUM HYPOCHLORITE 0.25% 500 ML BTL TOPICAL SCH (09:54)
[2017-09-29] MEDS: ZINC OXIDE 40% OINT 60 GM TUBE TOPICAL SCH ×2 (09:55→21:00)
[2017-09-29 12:00] VITALS: BP 140/84; PULSE 103; RESP 22; TEMP 98.3; O2SAT 95
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
[2017-09-29] MEDS: MORPHINE SULFATE 2 MG/ML SYRINGE IV PUSH PRN ×2 (14:18→21:23)
[2017-09-29 16:00] VITALS: BP 142/84; PULSE 96; RESP 22; TEMP 98.2; O2SAT 96
[2017-09-29] MEDS: ENOXAPARIN SODIUM 40 MG/0.4 ML SYRINGE SQ SCH (17:34)
[2017-09-29] MEDS: SIMETHICONE 125 MG CHEWABLE TAB PO PRN (17:38)
[2017-09-29 20:00] VITALS: BP 142/92; PULSE 111; RESP 18; TEMP 97.8; O2SAT 95
[2017-09-29] MEDS: MIRTAZAPINE 15 MG TAB PO SCH (21:19)
[2017-09-29] MEDS: ALPRAZolam 0.25 MG TAB PO PRN (21:26)
[2017-09-30] VITALS: BP 138/93; PULSE 115; RESP 20; TEMP 97.6; O2SAT 95
[2017-09-30 08:00] VITALS: BP 133/90; PULSE 100; RESP 22; TEMP 97.9; O2SAT 94
[2017-09-30] MEDS: SODIUM CHLORIDE 0.9% FLUSH 10 ML FLUSH IVF SCH (09:00)
[2017-09-30] MEDS: LACTOBACILLUS ACIDOPHILUS TAB PO SCH ×2 (09:00→21:00)
[2017-09-30] MEDS: ESCITALOPRAM OXALATE 10 MG TAB PO SCH (09:13)
[2017-09-30] MEDS: SODIUM CHLORIDE 0.9% FLUSH 10 ML FLUSH IV FLUSH SCH ×2 (09:13→22:59)
[2017-09-30] MEDS: CYPROHEPTADINE HCL 4 MG TAB PO SCH ×2 (09:13→22:57)
[2017-09-30] MEDS: PYRIDOXINE HCL 50 MG TAB PO SCH (09:13)
[2017-09-30] MEDS: GABAPENTIN 400 MG CAP PO SCH ×4 (09:13→22:57)
[2017-09-30] MEDS: SODIUM HYPOCHLORITE 0.25% 500 ML BTL TOPICAL SCH (09:14)
[2017-09-30] MEDS: DOCUSATE SODIUM 50 MG/SENNA 8.6 MG TAB PO SCH ×2 (09:14→22:57)
[2017-09-30] MEDS: CYCLOBENZAPRINE HCL 10 MG TAB PO SCH ×3 (09:14→18:00)
[2017-09-30] MEDS: ZINC OXIDE 40% OINT 60 GM TUBE TOPICAL SCH ×2 (09:14→21:00)
[2017-09-30] MEDS: FERROUS SULFATE 325 MG (65 MG ELEMENTAL IRON) TAB PO SCH (09:14)
[2017-09-30 12:00] VITALS: BP 155/93; PULSE 101; RESP 22; TEMP 97.8; O2SAT 96
[2017-09-30] MEDS: MORPHINE SULFATE 2 MG/ML SYRINGE IV PUSH PRN ×2 (15:14→22:58)
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
[2017-09-30 16:00] VITALS: BP 132/79; PULSE 97; RESP 20; TEMP 98; O2SAT 97
[2017-09-30] MEDS: ENOXAPARIN SODIUM 40 MG/0.4 ML SYRINGE SQ SCH (18:00)
[2017-09-30] MEDS: oxyCODONE/ACETAMINOPHEN 5 MG/325 MG TAB PO PRN (18:01)
[2017-09-30] MEDS: SIMETHICONE 125 MG CHEWABLE TAB PO PRN (18:18)
[2017-09-30 19:14] LABS: BILIRUBIN, URINE NEG (NEG); BLOOD, URINE SMALL (NEG); GLUCOSE,URINE NEG (NEG); KETONE, URINE NEG (NEG); MUCUS URINE FEW /lpf (OCC); NITRITE,URINE POS (NEG); SQUAMOUS EPITHELIAL CELL URINE 2 /hpf (0-5); URINE COLOR YELLOW (YELLW/STRAW); URINE LEUKOCYTE ESTERASE LARGE (NEG); WHITE BLOOD CELL CLUMPS MANY
[2017-09-30 20:00] VITALS: BP 143/93; PULSE 102; RESP 20; TEMP 98.1; O2SAT 96
[2017-09-30] MEDS: MIRTAZAPINE 15 MG TAB PO SCH (22:57)
[2017-09-30] MEDS: ALPRAZolam 0.25 MG TAB PO PRN (22:58)
[2017-09-30] MEDS: SODIUM CHLORIDE 0.9% FLUSH 10 ML FLUSH IV FLUSH PRN (22:58)
[2017-10-01 00:19] VITALS: BP 128/78; PULSE 112; RESP 20; TEMP 98.3; O2SAT 95
[2017-10-01] MEDS: oxyCODONE/ACETAMINOPHEN 5 MG/325 MG TAB PO PRN ×3 (02:10→23:36)
[2017-10-01] MEDS: FERROUS SULFATE 325 MG (65 MG ELEMENTAL IRON) TAB PO SCH (08:55)
[2017-10-01] MEDS: DOCUSATE SODIUM 50 MG/SENNA 8.6 MG TAB PO SCH ×2 (08:55→22:20)
[2017-10-01] MEDS: CYCLOBENZAPRINE HCL 10 MG TAB PO SCH ×3 (08:55→17:57)
[2017-10-01] MEDS: GABAPENTIN 400 MG CAP PO SCH ×4 (08:56→22:20)
[2017-10-01] MEDS: ESCITALOPRAM OXALATE 10 MG TAB PO SCH (08:56)
[2017-10-01] MEDS: LACTOBACILLUS ACIDOPHILUS TAB PO SCH ×2 (08:57→21:00)
[2017-10-01] MEDS: SODIUM CHLORIDE 0.9% FLUSH 10 ML FLUSH IVF SCH (08:57)
[2017-10-01] MEDS: ZINC OXIDE 40% OINT 60 GM TUBE TOPICAL SCH ×2 (08:59→21:00)
[2017-10-01] MEDS: SODIUM HYPOCHLORITE 0.25% 500 ML BTL TOPICAL SCH (08:59)
[2017-10-01] MEDS: SODIUM CHLORIDE 0.9% FLUSH 10 ML FLUSH IV FLUSH SCH ×2 (08:59→22:22)
[2017-10-01] MEDS: PYRIDOXINE HCL 50 MG TAB PO SCH (09:06)
[2017-10-01] MEDS: CYPROHEPTADINE HCL 4 MG TAB PO SCH ×2 (09:06→22:20)
[2017-10-01 12:42] VITALS: BP 122/81; PULSE 105; RESP 18; TEMP 98; O2SAT 97
[2017-10-01] MEDS: MORPHINE SULFATE 2 MG/ML SYRINGE IV PUSH PRN ×2 (13:49→22:30)
[2017-10-01] MEDS: cefTRIAXone INJ 1,000 MG in SODIUM CHLORIDE 0.9% INJ 100 ML IV SCH (14:08)
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
[2017-10-01 16:49] VITALS: BP 132/85; PULSE 103; RESP 18; TEMP 97.7; O2SAT 96
[2017-10-01] MEDS: SIMETHICONE 125 MG CHEWABLE TAB PO PRN (17:56)
[2017-10-01] MEDS: ENOXAPARIN SODIUM 40 MG/0.4 ML SYRINGE SQ SCH (17:57)
[2017-10-01 20:00] VITALS: BP 136/98; PULSE 111; RESP 18; TEMP 97.9; O2SAT 97
[2017-10-01] MEDS: ALPRAZolam 0.25 MG TAB PO PRN (22:20)
[2017-10-01] MEDS: MIRTAZAPINE 15 MG TAB PO SCH (22:20)
[2017-10-02] VITALS: BP 123/83; PULSE 116; RESP 18; TEMP 98.6; O2SAT 93
[2017-10-02 08:00] VITALS: BP 128/79; PULSE 103; RESP 16; TEMP 97.4; O2SAT 96
[2017-10-02] MEDS: SODIUM CHLORIDE 0.9% FLUSH 10 ML FLUSH IVF SCH (09:00)
[2017-10-02] MEDS: ESCITALOPRAM OXALATE 10 MG TAB PO SCH (09:41)
[2017-10-02] MEDS: DOCUSATE SODIUM 50 MG/SENNA 8.6 MG TAB PO SCH ×2 (09:41→22:25)
[2017-10-02] MEDS: CYCLOBENZAPRINE HCL 10 MG TAB PO SCH ×3 (09:41→18:55)
[2017-10-02] MEDS: FERROUS SULFATE 325 MG (65 MG ELEMENTAL IRON) TAB PO SCH (09:41)
[2017-10-02] MEDS: LACTOBACILLUS ACIDOPHILUS TAB PO SCH ×2 (09:41→21:00)
[2017-10-02] MEDS: GABAPENTIN 400 MG CAP PO SCH ×4 (09:42→22:25)
[2017-10-02] MEDS: ZINC OXIDE 40% OINT 60 GM TUBE TOPICAL SCH ×2 (09:42→21:00)
[2017-10-02] MEDS: SODIUM CHLORIDE 0.9% FLUSH 10 ML FLUSH IV FLUSH SCH ×2 (09:42→22:26)
[2017-10-02] MEDS: SODIUM HYPOCHLORITE 0.25% 500 ML BTL TOPICAL SCH (09:42)
[2017-10-02] MEDS: CYPROHEPTADINE HCL 4 MG TAB PO SCH ×2 (09:51→22:26)
[2017-10-02] MEDS: PYRIDOXINE HCL 50 MG TAB PO SCH (09:51)
[2017-10-02 12:00] VITALS: BP 142/90; PULSE 102; RESP 18; TEMP 97.7; O2SAT 96
[2017-10-02] MEDS: cefTRIAXone INJ 1,000 MG in SODIUM CHLORIDE 0.9% INJ 100 ML IV SCH (12:51)
[2017-10-02] MEDS: MORPHINE SULFATE 2 MG/ML SYRINGE IV PUSH PRN ×2 (12:52→22:38)
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
[2017-10-02 16:00] VITALS: BP 151/101; PULSE 110; RESP 19; TEMP 97.5; O2SAT 97
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
[2017-10-02] MEDS: ENOXAPARIN SODIUM 40 MG/0.4 ML SYRINGE SQ SCH (18:55)
[2017-10-02] MEDS: LINEZOLID 600 MG TAB PO SCH ×2 (18:55→22:25)
[2017-10-02 20:00] VITALS: BP 140/77; PULSE 121; RESP 20; TEMP 98.3; O2SAT 95
[2017-10-02] MEDS: ALPRAZolam 0.25 MG TAB PO PRN (22:25)
[2017-10-02] MEDS: MIRTAZAPINE 15 MG TAB PO SCH (22:25)
--- NOTE | 2017-10-02 23:02 | RADRPT ---
EXAM DATE/TIME: 10/02/2017 17:31 [facility] COMPARISON: No previous studies available for comparison. INDICATIONS : Suprapubic pain. MEDICAL HISTORY : Deep venous thrombosis. Paraplegia. Anxiety. ADD. Anemia. Decubitus ulcer. MRSA. Blood transfusi on. SURGICAL HISTORY : Colostomy. Spinal surgery. Bilateral hip surgery. Suprapubic catheter. ENCOUNTER: Initial ACUITY: 1 day PAIN SCORE: 1/10 LOCATION: Abdomen. AREA EVALUATED: Mid lower quadrant. FINDINGS: No masses or fluid collections are demonstrated. There is a suprapubic catheter and does appear to be appropriately positioned. Bladder is decompressed. CONCLUSION: No acute abnormality demonstrated. Luis Felipe Greco MD on October 02, 2017 at 23:00 Board Certified Radiologist. This report was verified electronically.
[2017-10-02] MEDS: oxyCODONE/ACETAMINOPHEN 5 MG/325 MG TAB PO PRN (23:30)
[2017-10-03 00:46] VITALS: BP 144/79; PULSE 118; RESP 18; TEMP 98; O2SAT 95
[2017-10-03] MEDS: oxyCODONE/ACETAMINOPHEN 5 MG/325 MG TAB PO PRN (03:07)
[2017-10-03 08:00] VITALS: BP 142/67; PULSE 114; RESP 17; TEMP 98.4; O2SAT 95
[2017-10-03] MEDS: SODIUM CHLORIDE 0.9% FLUSH 10 ML FLUSH IVF SCH (09:00)
[2017-10-03 09:07] LABS: AUTOMATED NEUTROPHIL # 4.1 TH/MM3 (1.8-7.7); BASOPHIL % 0.4 % (0.0-2.0); EOSINOPHIL # 0.3 TH/MM3 (0-0.4); EOSINOPHIL % 3.1 % (0.0-4.0); HEMATOCRIT 40.2 % (39.0-51.0); HEMOGLOBIN 13.8 GM/DL (13.0-17.0); LYMPHOCYTE # 4.6 TH/MM3 (1.0-4.8); MEAN CELL VOLUME 83.2 FL (80.0-100.0); MEAN CORPUSCULAR HEMOGLOBIN 28.6 PG (27.0-34.0); MEAN CORPUSCULAR HGB CONC 34.4 % (32.0-36.0); MEAN PLATELET VOLUME 6.7 FL (7.0-11.0); MONO % 5.9 % (0.0-8.0); MONOCYTE # 0.6 TH/MM3 (0-0.9); NEUT % 42.6 % (16.0-70.0); PLATELET COUNT 440 TH/MM3 (150-450); RED BLOOD COUNT 4.84 MIL/MM3 (4.50-5.90); WHITE BLOOD COUNT 9.6 TH/MM3 (4.0-11.0)
[2017-10-03] MEDS: FERROUS SULFATE 325 MG (65 MG ELEMENTAL IRON) TAB PO SCH (09:15)
[2017-10-03] MEDS: LACTOBACILLUS ACIDOPHILUS TAB PO SCH ×2 (09:16→21:00)
[2017-10-03] MEDS: GABAPENTIN 400 MG CAP PO SCH ×4 (09:16→21:44)
[2017-10-03] MEDS: ESCITALOPRAM OXALATE 10 MG TAB PO SCH (09:16)
[2017-10-03] MEDS: PYRIDOXINE HCL 50 MG TAB PO SCH (09:16)
[2017-10-03] MEDS: CYPROHEPTADINE HCL 4 MG TAB PO SCH ×2 (09:16→21:43)
[2017-10-03] MEDS: DOCUSATE SODIUM 50 MG/SENNA 8.6 MG TAB PO SCH ×2 (09:16→21:44)
[2017-10-03] MEDS: CYCLOBENZAPRINE HCL 10 MG TAB PO SCH ×3 (09:16→17:04)
--- NOTE | 2017-10-03 09:20 | PD.CONS ---
HPI Service Urology Consult Requested By Dr Vickers Reason for Consult Pt with spinal cord injury, recurrent UTI, asking for SPT change Primary Care Physician No Primary Care Physician Diagnosis: (1) Decubitus ulcer ICD Code: L89.90 - Pressure ulcer of unspecified site, unspecified stage (2) Neurogenic bladder ICD Code: N31.9 - Neuromuscular dysfunction of bladder, unspecified (3) Paraplegia ICD Code: G82.20 - Paraplegia, unspecified (4) UTI (urinary tract infection) ICD Code: N39.0 - Urinary tract infection History of Present Illness 37y.o M with spinal cord injury, NGB manages bladder with SPT. He is in the hospital for long time due to decubitus ulcers and UTI. Saw ID yesterday due to MRSA / Enterococcus found in his urine from SPT. On antbx. Urology asked to change his SPT. VS and labs are stable. On furtehr discussion with nurses I found out that his SPT was changed 2 d/a and at that time urine was collected from new SPT showed infection Review of Systems Except as stated in HPI: all other systems reviewed are Neg Past Family Social History Past Medical History see primary team notes Past Surgical History see primary team notes Allergies: Coded Allergies: vancomycin (Unverified Adverse Reaction, Mild, HIVES, 03/06/17) ONLY WHEN INFUSED TOO QUICKLY Family History n/a Social History see primary team notes Physical Exam Vital Signs Date Time Temp Pulse Resp B/P (MAP) Pulse Ox O2 Delivery O2 Flow Rate FiO2 10/03/17 00:46 98.0 118 18 144/79 (100) 95 10/02/17 22:30 Room Air 10/02/17 20:00 98.3 121 20 140/77 (98) 95 10/02/17 16:00 97.5 110 19 151/101 (118) 97 10/02/17 13:35 18 10/02/17 12:00 97.7 102 18 142/90 (107) 96 10/02/17 10:37 96 Room Air Physical Exam GENERAL: This is a well-nourished, well-developed patient, in no apparent distress. CARDIOVASCULAR: Regular rate and rhythm RESPIRATORY: Breath sounds equal bilaterally. No wheezes GASTROINTESTINAL: Abdomen soft, colostomy bag is in place GENITOURINARY: 22Fr SPT is in place, draining clear yellow urine. no d/c noted NEUROLOGICAL: Awake and alert. . Lab results reviewed: Yes Laboratory Tests Test 10/03/17 07:40 Date/Time Source Procedure Growth Status 06/22/17 12:25 Blood Peripheral Aerobic Blood Culture - Final NO GROWTH IN 5 DAYS Complete 06/22/17 12:25 Blood Peripheral Anaerobic Blood Culture - Final NO GROWTH IN 5 DAYS Complete 09/30/17 18:15 Urine Suprapubic Urine Urine Culture - Preliminary S. Aureus Mrsa Group D Enterococcus Resulted 09/04/17 10:20 Wound Scrotum Gram Stain - Final Complete 09/04/17 10:20 Wound Culture - Final S. Aureus Mrsa Acinetobacter Baumannii/Haemol Proteus Mirabilis Group D Enterococcus Complete Imaging Last Impressions Abdomen Ultrasound 10/02/17 0000 Signed Impressions: Service Date/Time: Monday, October 02, 2017 17:31 - CONCLUSION: No acute abnormality demonstrated. Luis Felipe Greco MD Chest X-Ray 06/22/17 1157 Signed Impressions: Service Date/Time: Thursday, June 22, 2017 12:28 - CONCLUSION: No acute disease. Wes Callejas Jr., MD Assessment and Plan Assessment and Plan 37 y.o M with spinal cord injury, NGB, has SPT, Recurrent UTIs - Continue management as per primary team and ID - His SPT was changed by nurses 2d/a . Next time needs to change it in 4- 6weeks. Since SPT was just changed recently, No SPT change needed at this time. Changing SPT will not change his course of UTI treatment - Treat only UC positive symptomatic UTIs. Pt's with chronic catheters will always be colonized with some bacteria. Do not collect urine specimen from urinary bag, needs to be clean catch collection - No additional intervention. Discussed Condition With Dr Polk, Gu attending who agrees with this plan Theo Schmidt Oct 03, 2017 09:20
[2017-10-03] MEDS: SODIUM CHLORIDE 0.9% FLUSH 10 ML FLUSH IV FLUSH SCH ×2 (09:25→21:44)
[2017-10-03] MEDS: SELENIUM SULFIDE 1% SHAMPOO 207 ML BOTTLE TOPICAL SCH (09:26)
[2017-10-03] MEDS: SODIUM HYPOCHLORITE 0.25% 500 ML BTL TOPICAL SCH (09:26)
[2017-10-03] MEDS: ZINC OXIDE 40% OINT 60 GM TUBE TOPICAL SCH ×2 (09:26→21:00)
[2017-10-03 09:29] LABS: BICARBONATE 24.9 MEQ/L (21.0-32.0); CALCIUM 9.1 MG/DL (8.5-10.1); CREATININE 0.61 MG/DL (0.60-1.30)
[2017-10-03 12:00] VITALS: BP 129/66; PULSE 110; RESP 18; TEMP 97.8; O2SAT 96
[2017-10-03] MEDS: cefTRIAXone INJ 1,000 MG in SODIUM CHLORIDE 0.9% INJ 100 ML IV SCH (14:12)
[2017-10-03] MEDS: MORPHINE SULFATE 2 MG/ML SYRINGE IV PUSH PRN ×2 (14:12→23:58)
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
[2017-10-03 16:00] VITALS: BP 141/82; PULSE 103; RESP 17; TEMP 97.3; O2SAT 95
[2017-10-03] MEDS: ENOXAPARIN SODIUM 40 MG/0.4 ML SYRINGE SQ SCH (17:04)
[2017-10-03] MEDS: ONDANSETRON HCL 4 MG/2 ML VIAL IVP PRN (17:50)
[2017-10-03 20:28] VITALS: BP 141/85; PULSE 100; RESP 18; TEMP 97.4; O2SAT 95
[2017-10-03] MEDS: SULFAMETHOXAZOLE-TRIMETHOPRIM DS 800-160 MG TAB PO SCH (21:43)
[2017-10-03] MEDS: MIRTAZAPINE 15 MG TAB PO SCH (21:43)
[2017-10-03] MEDS: ALPRAZolam 0.25 MG TAB PO PRN (21:44)
[2017-10-03 23:53] VITALS: BP 127/81; PULSE 109; RESP 20; TEMP 97.9; O2SAT 97
[2017-10-04 04:00] VITALS: BP 149/78; PULSE 105; RESP 18; TEMP 97.6; O2SAT 95
[2017-10-04 08:00] VITALS: BP 124/80; PULSE 95; RESP 20; TEMP 98; O2SAT 95
[2017-10-04] MEDS: SODIUM CHLORIDE 0.9% FLUSH 10 ML FLUSH IVF SCH (09:00)
[2017-10-04] MEDS: LACTOBACILLUS ACIDOPHILUS TAB PO SCH ×2 (09:00→21:00)
[2017-10-04] MEDS: CYPROHEPTADINE HCL 4 MG TAB PO SCH ×2 (09:18→21:00)
[2017-10-04] MEDS: DOCUSATE SODIUM 50 MG/SENNA 8.6 MG TAB PO SCH ×2 (09:18→21:54)
[2017-10-04] MEDS: GABAPENTIN 400 MG CAP PO SCH ×4 (09:18→21:54)
[2017-10-04] MEDS: ESCITALOPRAM OXALATE 10 MG TAB PO SCH (09:19)
[2017-10-04] MEDS: CYCLOBENZAPRINE HCL 10 MG TAB PO SCH ×3 (09:19→18:07)
[2017-10-04] MEDS: SODIUM CHLORIDE 0.9% FLUSH 10 ML FLUSH IV FLUSH SCH ×2 (09:19→21:57)
[2017-10-04] MEDS: FERROUS SULFATE 325 MG (65 MG ELEMENTAL IRON) TAB PO SCH (09:19)
[2017-10-04] MEDS: SULFAMETHOXAZOLE-TRIMETHOPRIM DS 800-160 MG TAB PO SCH ×2 (09:19→21:00)
[2017-10-04] MEDS: PYRIDOXINE HCL 50 MG TAB PO SCH (09:19)
[2017-10-04] MEDS: SODIUM HYPOCHLORITE 0.25% 500 ML BTL TOPICAL SCH (09:21)
[2017-10-04] MEDS: ZINC OXIDE 40% OINT 60 GM TUBE TOPICAL SCH ×2 (09:21→21:00)
[2017-10-04] MEDS: AMOXICILLIN (TRIHYDRATE) 500 MG CAP PO SCH ×3 (09:36→18:07)
[2017-10-04 12:00] VITALS: BP 142/89; PULSE 113; RESP 20; TEMP 97.9; O2SAT 95
[2017-10-04] MEDS: MORPHINE SULFATE 2 MG/ML SYRINGE IV PUSH PRN (13:28)
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
[2017-10-04 16:00] VITALS: BP 147/89; PULSE 112; RESP 20; TEMP 97.5; O2SAT 93
[2017-10-04] MEDS: HYDROmorphone HCL 4 MG TAB PO PRN ×2 (16:14→21:54)
[2017-10-04] MEDS: ENOXAPARIN SODIUM 40 MG/0.4 ML SYRINGE SQ SCH (16:15)
[2017-10-04 20:00] VITALS: BP 143/89; PULSE 110; RESP 20; TEMP 98.1; O2SAT 94
[2017-10-04] MEDS: MIRTAZAPINE 15 MG TAB PO SCH (21:55)
[2017-10-04] MEDS: ALPRAZolam 0.25 MG TAB PO PRN (22:06)
[2017-10-05] VITALS: BP 156/85; PULSE 115; RESP 20; TEMP 97.1; O2SAT 95
[2017-10-05] MEDS: MORPHINE SULFATE 2 MG/ML SYRINGE IV PUSH PRN ×3 (00:03→23:41)
[2017-10-05 04:00] VITALS: BP 119/78; PULSE 95; RESP 20; O2SAT 94
[2017-10-05 08:00] VITALS: BP 127/76; PULSE 107; RESP 20; TEMP 97.4; O2SAT 93
[2017-10-05] MEDS: SODIUM CHLORIDE 0.9% FLUSH 10 ML FLUSH IVF SCH (09:00)
[2017-10-05] MEDS: LACTOBACILLUS ACIDOPHILUS TAB PO SCH ×2 (09:00→23:43)
[2017-10-05] MEDS: DOCUSATE SODIUM 50 MG/SENNA 8.6 MG TAB PO SCH ×2 (09:39→23:42)
[2017-10-05] MEDS: FERROUS SULFATE 325 MG (65 MG ELEMENTAL IRON) TAB PO SCH (09:39)
[2017-10-05] MEDS: AMOXICILLIN (TRIHYDRATE) 500 MG CAP PO SCH ×3 (09:39→17:23)
[2017-10-05] MEDS: ESCITALOPRAM OXALATE 10 MG TAB PO SCH (09:39)
[2017-10-05] MEDS: PYRIDOXINE HCL 50 MG TAB PO SCH (09:39)
[2017-10-05] MEDS: GABAPENTIN 400 MG CAP PO SCH ×4 (09:39→23:42)
[2017-10-05] MEDS: CYPROHEPTADINE HCL 4 MG TAB PO SCH ×2 (09:39→23:42)
[2017-10-05] MEDS: CYCLOBENZAPRINE HCL 10 MG TAB PO SCH ×3 (09:39→17:17)
[2017-10-05] MEDS: SODIUM CHLORIDE 0.9% FLUSH 10 ML FLUSH IV FLUSH SCH ×2 (09:41→23:43)
[2017-10-05] MEDS: SODIUM HYPOCHLORITE 0.25% 500 ML BTL TOPICAL SCH (09:42)
[2017-10-05] MEDS: ZINC OXIDE 40% OINT 60 GM TUBE TOPICAL SCH ×2 (09:42→23:43)
[2017-10-05] MEDS: SULFAMETHOXAZOLE-TRIMETHOPRIM DS 800-160 MG TAB PO SCH ×2 (09:57→23:42)
[2017-10-05 12:00] VITALS: BP 129/76; PULSE 110; RESP 20; TEMP 97.2; O2SAT 95
[2017-10-05 16:00] VITALS: BP 120/74; PULSE 112; RESP 20; TEMP 98; O2SAT 96
[2017-10-05] MEDS: SIMETHICONE 125 MG CHEWABLE TAB PO PRN (17:17)
[2017-10-05] MEDS: ENOXAPARIN SODIUM 40 MG/0.4 ML SYRINGE SQ SCH (17:17)
[2017-10-05] MEDS: oxyCODONE/ACETAMINOPHEN 5 MG/325 MG TAB PO PRN (17:18)
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
[2017-10-05 20:00] VITALS: BP 128/72; PULSE 94; RESP 16; TEMP 98.3; O2SAT 94
[2017-10-05] MEDS: MIRTAZAPINE 15 MG TAB PO SCH (23:42)
[2017-10-06] VITALS: BP 140/80; PULSE 113; RESP 16; TEMP 97.5; O2SAT 97
[2017-10-06] MEDS: ALPRAZolam 0.25 MG TAB PO PRN ×2 (00:19→23:20)
[2017-10-06 08:04] VITALS: BP 160/74; PULSE 117; RESP 17; TEMP 97.5; O2SAT 95
[2017-10-06] MEDS: ZINC OXIDE 40% OINT 60 GM TUBE TOPICAL SCH ×2 (09:00→23:21)
[2017-10-06] MEDS: LACTOBACILLUS ACIDOPHILUS TAB PO SCH ×2 (09:00→21:00)
[2017-10-06] MEDS: SODIUM HYPOCHLORITE 0.25% 500 ML BTL TOPICAL SCH (09:00)
[2017-10-06] MEDS: SODIUM CHLORIDE 0.9% FLUSH 10 ML FLUSH IVF SCH (09:00)
[2017-10-06] MEDS: GABAPENTIN 400 MG CAP PO SCH ×4 (09:36→23:19)
[2017-10-06] MEDS: SULFAMETHOXAZOLE-TRIMETHOPRIM DS 800-160 MG TAB PO SCH ×2 (09:36→23:20)
[2017-10-06] MEDS: SODIUM CHLORIDE 0.9% FLUSH 10 ML FLUSH IV FLUSH SCH ×2 (09:36→23:21)
[2017-10-06] MEDS: CYPROHEPTADINE HCL 4 MG TAB PO SCH ×2 (09:36→23:21)
[2017-10-06] MEDS: DOCUSATE SODIUM 50 MG/SENNA 8.6 MG TAB PO SCH ×2 (09:37→23:20)
[2017-10-06] MEDS: ESCITALOPRAM OXALATE 10 MG TAB PO SCH (09:37)
[2017-10-06] MEDS: AMOXICILLIN (TRIHYDRATE) 500 MG CAP PO SCH ×3 (09:37→17:04)
[2017-10-06] MEDS: FERROUS SULFATE 325 MG (65 MG ELEMENTAL IRON) TAB PO SCH (09:37)
[2017-10-06] MEDS: PYRIDOXINE HCL 50 MG TAB PO SCH (09:37)
[2017-10-06] MEDS: CYCLOBENZAPRINE HCL 10 MG TAB PO SCH ×3 (09:38→17:04)
[2017-10-06 12:04] VITALS: BP 160/74; PULSE 117; RESP 17; TEMP 97.6; O2SAT 95
[2017-10-06] MEDS: MORPHINE SULFATE 2 MG/ML SYRINGE IV PUSH PRN ×2 (15:16→23:22)
[2017-10-06 16:04] VITALS: BP 138/79; PULSE 114; RESP 18; TEMP 98.3; O2SAT 96
[2017-10-06] MEDS: HYDROmorphone HCL 4 MG TAB PO PRN (17:04)
[2017-10-06] MEDS: ENOXAPARIN SODIUM 40 MG/0.4 ML SYRINGE SQ SCH (17:04)
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
[2017-10-06 20:00] VITALS: BP 137/91; PULSE 117; RESP 18; TEMP 98.1; O2SAT 99
[2017-10-06] MEDS: MIRTAZAPINE 15 MG TAB PO SCH (23:20)
[2017-10-07 08:04] VITALS: BP 138/73; PULSE 112; RESP 18; TEMP 98; O2SAT 94
[2017-10-07] MEDS: SODIUM CHLORIDE 0.9% FLUSH 10 ML FLUSH IVF SCH (08:33)
[2017-10-07] MEDS: LACTOBACILLUS ACIDOPHILUS TAB PO SCH ×2 (08:36→19:52)
[2017-10-07] MEDS: CYPROHEPTADINE HCL 4 MG TAB PO SCH ×2 (08:37→19:51)
[2017-10-07] MEDS: DOCUSATE SODIUM 50 MG/SENNA 8.6 MG TAB PO SCH ×2 (08:37→19:51)
[2017-10-07] MEDS: PYRIDOXINE HCL 50 MG TAB PO SCH (08:37)
[2017-10-07] MEDS: GABAPENTIN 400 MG CAP PO SCH ×4 (08:37→19:52)
[2017-10-07] MEDS: SODIUM CHLORIDE 0.9% FLUSH 10 ML FLUSH IV FLUSH SCH ×2 (08:37→19:52)
[2017-10-07] MEDS: FERROUS SULFATE 325 MG (65 MG ELEMENTAL IRON) TAB PO SCH (08:37)
[2017-10-07] MEDS: ESCITALOPRAM OXALATE 10 MG TAB PO SCH (08:37)
[2017-10-07] MEDS: CYCLOBENZAPRINE HCL 10 MG TAB PO SCH ×3 (08:37→17:35)
[2017-10-07] MEDS: SULFAMETHOXAZOLE-TRIMETHOPRIM DS 800-160 MG TAB PO SCH ×2 (08:37→19:51)
[2017-10-07] MEDS: AMOXICILLIN (TRIHYDRATE) 500 MG CAP PO SCH ×3 (08:37→17:34)
[2017-10-07] MEDS: ZINC OXIDE 40% OINT 60 GM TUBE TOPICAL SCH ×2 (08:38→19:53)
[2017-10-07] MEDS: SODIUM HYPOCHLORITE 0.25% 500 ML BTL TOPICAL SCH (08:38)
[2017-10-07 12:04] VITALS: BP 120/64; PULSE 108; RESP 18; TEMP 97.7; O2SAT 97
[2017-10-07] MEDS: MORPHINE SULFATE 2 MG/ML SYRINGE IV PUSH PRN (12:40)
[2017-10-07 16:04] VITALS: BP 147/73; PULSE 110; RESP 18; TEMP 98.4; O2SAT 97
[2017-10-07] MEDS: HYDROmorphone HCL 4 MG TAB PO PRN (17:34)
[2017-10-07] MEDS: ENOXAPARIN SODIUM 40 MG/0.4 ML SYRINGE SQ SCH (17:34)
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
[2017-10-07] MEDS: MIRTAZAPINE 15 MG TAB PO SCH (19:51)
[2017-10-07] MEDS: ALPRAZolam 0.25 MG TAB PO PRN (19:57)
[2017-10-07 20:00] VITALS: BP 130/82; PULSE 114; RESP 19; TEMP 98.6; O2SAT 96
[2017-10-08] MEDS: MORPHINE SULFATE 2 MG/ML SYRINGE IV PUSH PRN ×4 (00:37→23:44)
[2017-10-08 08:00] VITALS: BP 130/67; PULSE 113; RESP 18; TEMP 98; O2SAT 93
[2017-10-08] MEDS: SODIUM HYPOCHLORITE 0.25% 500 ML BTL TOPICAL SCH (09:00)
[2017-10-08] MEDS: ZINC OXIDE 40% OINT 60 GM TUBE TOPICAL SCH ×2 (09:00→23:44)
[2017-10-08] MEDS: SODIUM CHLORIDE 0.9% FLUSH 10 ML FLUSH IVF SCH (09:00)
[2017-10-08] MEDS: CYPROHEPTADINE HCL 4 MG TAB PO SCH ×2 (09:00→23:43)
[2017-10-08] MEDS: SODIUM CHLORIDE 0.9% FLUSH 10 ML FLUSH IV FLUSH SCH ×2 (09:00→23:42)
[2017-10-08] MEDS: AMOXICILLIN (TRIHYDRATE) 500 MG CAP PO SCH ×3 (09:59→18:06)
[2017-10-08] MEDS: DOCUSATE SODIUM 50 MG/SENNA 8.6 MG TAB PO SCH ×2 (09:59→23:43)
[2017-10-08] MEDS: FERROUS SULFATE 325 MG (65 MG ELEMENTAL IRON) TAB PO SCH (09:59)
[2017-10-08] MEDS: PYRIDOXINE HCL 50 MG TAB PO SCH (09:59)
[2017-10-08] MEDS: ESCITALOPRAM OXALATE 10 MG TAB PO SCH (09:59)
[2017-10-08] MEDS: CYCLOBENZAPRINE HCL 10 MG TAB PO SCH ×3 (09:59→18:06)
[2017-10-08] MEDS: GABAPENTIN 400 MG CAP PO SCH ×4 (09:59→23:43)
[2017-10-08] MEDS: LACTOBACILLUS ACIDOPHILUS TAB PO SCH ×2 (09:59→21:00)
[2017-10-08] MEDS: SULFAMETHOXAZOLE-TRIMETHOPRIM DS 800-160 MG TAB PO SCH ×2 (09:59→23:42)
[2017-10-08] MEDS: HYDROmorphone HCL 4 MG TAB PO PRN ×2 (10:02→18:13)
[2017-10-08 12:00] VITALS: BP 121/66; PULSE 114; RESP 16; TEMP 98; O2SAT 96
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
[2017-10-08 16:00] VITALS: BP 138/81; PULSE 104; RESP 16; TEMP 97.5; O2SAT 97
[2017-10-08] MEDS: ENOXAPARIN SODIUM 40 MG/0.4 ML SYRINGE SQ SCH (18:08)
[2017-10-08 20:19] VITALS: BP 147/86; PULSE 114; RESP 18; TEMP 98.3; O2SAT 95
[2017-10-08] MEDS: ALPRAZolam 0.25 MG TAB PO PRN (23:42)
[2017-10-08] MEDS: MIRTAZAPINE 15 MG TAB PO SCH (23:43)
[2017-10-09 08:00] VITALS: BP 130/79; PULSE 108; RESP 18; TEMP 97.3; O2SAT 95
[2017-10-09] MEDS: ZINC OXIDE 40% OINT 60 GM TUBE TOPICAL SCH ×2 (09:00→22:52)
[2017-10-09] MEDS: SODIUM CHLORIDE 0.9% FLUSH 10 ML FLUSH IV FLUSH SCH ×2 (09:00→22:52)
[2017-10-09] MEDS: SODIUM HYPOCHLORITE 0.25% 500 ML BTL TOPICAL SCH (09:00)
[2017-10-09] MEDS: SODIUM CHLORIDE 0.9% FLUSH 10 ML FLUSH IVF SCH (09:00)
[2017-10-09] MEDS: SULFAMETHOXAZOLE-TRIMETHOPRIM DS 800-160 MG TAB PO SCH ×2 (09:49→22:50)
[2017-10-09] MEDS: FERROUS SULFATE 325 MG (65 MG ELEMENTAL IRON) TAB PO SCH (09:49)
[2017-10-09] MEDS: DOCUSATE SODIUM 50 MG/SENNA 8.6 MG TAB PO SCH ×2 (09:49→22:50)
[2017-10-09] MEDS: ESCITALOPRAM OXALATE 10 MG TAB PO SCH (09:49)
[2017-10-09] MEDS: CYPROHEPTADINE HCL 4 MG TAB PO SCH ×2 (09:49→22:50)
[2017-10-09] MEDS: PYRIDOXINE HCL 50 MG TAB PO SCH (09:49)
[2017-10-09] MEDS: GABAPENTIN 400 MG CAP PO SCH ×4 (09:50→22:50)
[2017-10-09] MEDS: AMOXICILLIN (TRIHYDRATE) 500 MG CAP PO SCH ×3 (09:50→17:09)
[2017-10-09] MEDS: CYCLOBENZAPRINE HCL 10 MG TAB PO SCH ×3 (09:50→17:09)
[2017-10-09] MEDS: LACTOBACILLUS ACIDOPHILUS TAB PO SCH ×2 (09:50→21:00)
[2017-10-09] MEDS: MORPHINE SULFATE 2 MG/ML SYRINGE IV PUSH PRN ×2 (09:51→22:54)
[2017-10-09 12:00] VITALS: BP 137/75; PULSE 108; RESP 16; TEMP 97.3; O2SAT 96
[2017-10-09] MEDS: HYDROmorphone HCL 4 MG TAB PO PRN ×2 (13:24→17:09)
[2017-10-09 16:00] VITALS: BP 152/82; PULSE 110; RESP 16; TEMP 97.9; O2SAT 97
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
[2017-10-09] MEDS: ENOXAPARIN SODIUM 40 MG/0.4 ML SYRINGE SQ SCH (17:10)
[2017-10-09 20:00] VITALS: BP 137/92; PULSE 116; RESP 20; TEMP 98.1; O2SAT 95
[2017-10-09] MEDS: MIRTAZAPINE 15 MG TAB PO SCH (22:50)
[2017-10-09] MEDS: ALPRAZolam 0.25 MG TAB PO PRN (22:50)
[2017-10-10] VITALS: BP 147/93; PULSE 112; RESP 20; TEMP 97; O2SAT 95
[2017-10-10 04:00] VITALS: BP 147/93; PULSE 112; RESP 20; TEMP 97; O2SAT 95
[2017-10-10] MEDS: SODIUM CHLORIDE 0.9% FLUSH 10 ML FLUSH IV FLUSH SCH ×2 (07:49→22:28)
[2017-10-10] MEDS: SODIUM CHLORIDE 0.9% FLUSH 10 ML FLUSH IVF SCH (07:49)
[2017-10-10 08:00] VITALS: BP 121/71; PULSE 102; RESP 17; TEMP 97.5; O2SAT 95
[2017-10-10] MEDS: SODIUM HYPOCHLORITE 0.25% 500 ML BTL TOPICAL SCH (09:00)
[2017-10-10] MEDS: ZINC OXIDE 40% OINT 60 GM TUBE TOPICAL SCH ×2 (09:00→22:28)
[2017-10-10] MEDS: LACTOBACILLUS ACIDOPHILUS TAB PO SCH ×2 (09:04→21:00)
[2017-10-10] MEDS: AMOXICILLIN (TRIHYDRATE) 500 MG CAP PO SCH ×3 (09:04→17:37)
[2017-10-10] MEDS: SELENIUM SULFIDE 1% SHAMPOO 207 ML BOTTLE TOPICAL SCH (09:05)
[2017-10-10] MEDS: GABAPENTIN 400 MG CAP PO SCH ×4 (09:05→22:27)
[2017-10-10] MEDS: ESCITALOPRAM OXALATE 10 MG TAB PO SCH (09:05)
[2017-10-10] MEDS: CYPROHEPTADINE HCL 4 MG TAB PO SCH ×2 (09:05→22:26)
[2017-10-10] MEDS: CYCLOBENZAPRINE HCL 10 MG TAB PO SCH ×3 (09:05→17:37)
[2017-10-10] MEDS: SULFAMETHOXAZOLE-TRIMETHOPRIM DS 800-160 MG TAB PO SCH ×2 (09:05→22:27)
[2017-10-10] MEDS: DOCUSATE SODIUM 50 MG/SENNA 8.6 MG TAB PO SCH ×2 (09:05→22:27)
[2017-10-10] MEDS: PYRIDOXINE HCL 50 MG TAB PO SCH (09:05)
[2017-10-10] MEDS: FERROUS SULFATE 325 MG (65 MG ELEMENTAL IRON) TAB PO SCH (09:05)
[2017-10-10 12:00] VITALS: BP 143/88; PULSE 110; RESP 19; TEMP 98; O2SAT 97
[2017-10-10 16:00] VITALS: BP 126/74; PULSE 112; RESP 19; TEMP 98.1; O2SAT 96
[2017-10-10] MEDS: ENOXAPARIN SODIUM 40 MG/0.4 ML SYRINGE SQ SCH (17:36)
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
[2017-10-10 20:00] VITALS: BP 168/91; PULSE 118; RESP 20; TEMP 97.3; O2SAT 96
[2017-10-10] MEDS: ALPRAZolam 0.25 MG TAB PO PRN (22:26)
[2017-10-10] MEDS: MIRTAZAPINE 15 MG TAB PO SCH (22:27)
[2017-10-10] MEDS: MORPHINE SULFATE 2 MG/ML SYRINGE IV PUSH PRN (22:29)
[2017-10-11] MEDS: HYDROmorphone HCL 4 MG TAB PO PRN ×3 (03:18→17:47)
[2017-10-11 07:40] VITALS: BP 151/65; PULSE 114; RESP 20; TEMP 97.8; O2SAT 95
[2017-10-11] MEDS: SODIUM CHLORIDE 0.9% FLUSH 10 ML FLUSH IVF SCH (09:00)
[2017-10-11] MEDS: LACTOBACILLUS ACIDOPHILUS TAB PO SCH ×2 (09:00→21:00)
[2017-10-11] MEDS: AMOXICILLIN (TRIHYDRATE) 500 MG CAP PO SCH ×3 (10:16→17:47)
[2017-10-11] MEDS: ESCITALOPRAM OXALATE 10 MG TAB PO SCH (10:17)
[2017-10-11] MEDS: CYCLOBENZAPRINE HCL 10 MG TAB PO SCH ×3 (10:17→17:47)
[2017-10-11] MEDS: DOCUSATE SODIUM 50 MG/SENNA 8.6 MG TAB PO SCH ×2 (10:17→23:03)
[2017-10-11] MEDS: FERROUS SULFATE 325 MG (65 MG ELEMENTAL IRON) TAB PO SCH (10:17)
[2017-10-11] MEDS: PYRIDOXINE HCL 50 MG TAB PO SCH (10:17)
[2017-10-11] MEDS: GABAPENTIN 400 MG CAP PO SCH ×4 (10:17→23:02)
[2017-10-11] MEDS: CYPROHEPTADINE HCL 4 MG TAB PO SCH ×2 (10:17→23:03)
[2017-10-11] MEDS: SULFAMETHOXAZOLE-TRIMETHOPRIM DS 800-160 MG TAB PO SCH ×2 (10:17→23:03)
[2017-10-11] MEDS: SODIUM CHLORIDE 0.9% FLUSH 10 ML FLUSH IV FLUSH SCH ×2 (10:18→23:04)
[2017-10-11] MEDS: SODIUM HYPOCHLORITE 0.25% 500 ML BTL TOPICAL SCH (10:18)
[2017-10-11] MEDS: ZINC OXIDE 40% OINT 60 GM TUBE TOPICAL SCH ×2 (10:19→21:00)
[2017-10-11] MEDS: MORPHINE SULFATE 2 MG/ML SYRINGE IV PUSH PRN ×2 (12:24→23:06)
[2017-10-11 12:33] VITALS: BP 132/72; PULSE 108; RESP 18; TEMP 98.1; O2SAT 96
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
[2017-10-11] MEDS: SIMETHICONE 125 MG CHEWABLE TAB PO PRN (15:22)
[2017-10-11 16:13] VITALS: BP 133/87; PULSE 105; RESP 17; TEMP 97.7; O2SAT 96
[2017-10-11] MEDS: LACTIC ACID (AMMONIUM LACTATE) 12% LOTION 225 GM BTL TOPICAL SCH ×2 (17:47→21:00)
[2017-10-11] MEDS: ENOXAPARIN SODIUM 40 MG/0.4 ML SYRINGE SQ SCH (17:47)
[2017-10-11] MEDS: MIRTAZAPINE 15 MG TAB PO SCH (21:00)
[2017-10-11 21:36] VITALS: O2SAT 99
[2017-10-11 22:15] VITALS: BP 146/78; PULSE 120; RESP 16; TEMP 98.2; O2SAT 94
[2017-10-11] MEDS: ALPRAZolam 0.25 MG TAB PO PRN (23:02)
[2017-10-11 23:55] VITALS: BP 146/73; PULSE 103; RESP 16; TEMP 97; O2SAT 93
[2017-10-12 08:00] VITALS: BP 135/77; PULSE 102; RESP 20; TEMP 97.8; O2SAT 99
[2017-10-12] MEDS: SODIUM CHLORIDE 0.9% FLUSH 10 ML FLUSH IVF SCH (09:00)
[2017-10-12] MEDS: LACTOBACILLUS ACIDOPHILUS TAB PO SCH ×2 (09:00→21:00)
[2017-10-12] MEDS: HYDROmorphone HCL 4 MG TAB PO PRN ×2 (10:20→17:59)
[2017-10-12] MEDS: PYRIDOXINE HCL 50 MG TAB PO SCH (10:20)
[2017-10-12] MEDS: SULFAMETHOXAZOLE-TRIMETHOPRIM DS 800-160 MG TAB PO SCH ×2 (10:20→22:54)
[2017-10-12] MEDS: ESCITALOPRAM OXALATE 10 MG TAB PO SCH (10:20)
[2017-10-12] MEDS: DOCUSATE SODIUM 50 MG/SENNA 8.6 MG TAB PO SCH ×2 (10:20→22:54)
[2017-10-12] MEDS: GABAPENTIN 400 MG CAP PO SCH ×4 (10:21→22:54)
[2017-10-12] MEDS: AMOXICILLIN (TRIHYDRATE) 500 MG CAP PO SCH ×3 (10:21→17:59)
[2017-10-12] MEDS: SODIUM HYPOCHLORITE 0.25% 500 ML BTL TOPICAL SCH (10:21)
[2017-10-12] MEDS: CYCLOBENZAPRINE HCL 10 MG TAB PO SCH ×3 (10:21→17:59)
[2017-10-12] MEDS: FERROUS SULFATE 325 MG (65 MG ELEMENTAL IRON) TAB PO SCH (10:21)
[2017-10-12] MEDS: SODIUM CHLORIDE 0.9% FLUSH 10 ML FLUSH IV FLUSH SCH ×2 (10:21→22:55)
[2017-10-12] MEDS: CYPROHEPTADINE HCL 4 MG TAB PO SCH ×2 (10:21→22:55)
[2017-10-12] MEDS: LACTIC ACID (AMMONIUM LACTATE) 12% LOTION 225 GM BTL TOPICAL SCH ×2 (10:22→22:57)
[2017-10-12] MEDS: ZINC OXIDE 40% OINT 60 GM TUBE TOPICAL SCH ×2 (10:22→22:56)
[2017-10-12] MEDS: MORPHINE SULFATE 2 MG/ML SYRINGE IV PUSH PRN ×2 (12:31→23:00)
[2017-10-12] MEDS: ONDANSETRON HCL 4 MG/2 ML VIAL IVP PRN (14:00)
[2017-10-12 16:05] VITALS: BP 141/84; PULSE 105; RESP 18; TEMP 97.9; O2SAT 96
[2017-10-12] MEDS: ENOXAPARIN SODIUM 40 MG/0.4 ML SYRINGE SQ SCH (17:59)
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
[2017-10-12 20:00] VITALS: BP 147/83; PULSE 110; RESP 20; TEMP 98.2; O2SAT 94
[2017-10-12] MEDS: ALPRAZolam 0.25 MG TAB PO PRN (22:55)
[2017-10-12] MEDS: MIRTAZAPINE 15 MG TAB PO SCH (22:55)
[2017-10-13] VITALS: BP 161/86; PULSE 123; RESP 20; TEMP 98.1; O2SAT 94
[2017-10-13] MEDS: HYDROmorphone HCL 4 MG TAB PO PRN (00:45)
[2017-10-13 08:00] VITALS: BP 135/79; PULSE 110; RESP 18; TEMP 97.6; O2SAT 95
[2017-10-13] MEDS: SODIUM CHLORIDE 0.9% FLUSH 10 ML FLUSH IVF SCH (08:01)
[2017-10-13] MEDS: DOCUSATE SODIUM 50 MG/SENNA 8.6 MG TAB PO SCH ×2 (08:04→20:12)
[2017-10-13] MEDS: GABAPENTIN 400 MG CAP PO SCH ×4 (08:04→20:12)
[2017-10-13] MEDS: CYCLOBENZAPRINE HCL 10 MG TAB PO SCH ×3 (08:04→17:15)
[2017-10-13] MEDS: CYPROHEPTADINE HCL 4 MG TAB PO SCH ×2 (08:04→20:12)
[2017-10-13] MEDS: PYRIDOXINE HCL 50 MG TAB PO SCH (08:04)
[2017-10-13] MEDS: SODIUM CHLORIDE 0.9% FLUSH 10 ML FLUSH IV FLUSH SCH ×2 (08:05→20:21)
[2017-10-13] MEDS: FERROUS SULFATE 325 MG (65 MG ELEMENTAL IRON) TAB PO SCH (08:05)
[2017-10-13] MEDS: SULFAMETHOXAZOLE-TRIMETHOPRIM DS 800-160 MG TAB PO SCH ×2 (08:05→20:12)
[2017-10-13] MEDS: ESCITALOPRAM OXALATE 10 MG TAB PO SCH (08:05)
[2017-10-13] MEDS: AMOXICILLIN (TRIHYDRATE) 500 MG CAP PO SCH ×3 (08:05→17:15)
[2017-10-13] MEDS: LACTOBACILLUS ACIDOPHILUS TAB PO SCH ×2 (08:09→20:13)
[2017-10-13] MEDS: SODIUM HYPOCHLORITE 0.25% 500 ML BTL TOPICAL SCH (09:54)
[2017-10-13] MEDS: MORPHINE SULFATE 2 MG/ML SYRINGE IV PUSH PRN ×2 (09:56→23:50)
[2017-10-13] MEDS: ZINC OXIDE 40% OINT 60 GM TUBE TOPICAL SCH ×2 (10:00→20:20)
[2017-10-13] MEDS: LACTIC ACID (AMMONIUM LACTATE) 12% LOTION 225 GM BTL TOPICAL SCH ×2 (10:01→20:20)
[2017-10-13 12:00] VITALS: BP 126/69; PULSE 109; RESP 18; TEMP 97.3; O2SAT 94
[2017-10-13 15:00] VITALS: BP 126/69; PULSE 110; RESP 18; TEMP 97.6; O2SAT 95
[2017-10-13] MEDS: ENOXAPARIN SODIUM 40 MG/0.4 ML SYRINGE SQ SCH (17:16)
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
[2017-10-13 20:00] VITALS: BP 111/74; PULSE 111; RESP 20; TEMP 97.8; O2SAT 95
[2017-10-13] MEDS: oxyCODONE/ACETAMINOPHEN 5 MG/325 MG TAB PO PRN (20:12)
[2017-10-13] MEDS: ALPRAZolam 0.25 MG TAB PO PRN (20:12)
[2017-10-13] MEDS: MIRTAZAPINE 15 MG TAB PO SCH (20:12)
[2017-10-14] VITALS: BP 135/67; PULSE 116; RESP 20; TEMP 98.2; O2SAT 96
[2017-10-14] MEDS: HYDROmorphone HCL 4 MG TAB PO PRN ×3 (00:50→21:00)
[2017-10-14 07:20] VITALS: BP 147/95; PULSE 110; TEMP 98; O2SAT 94
[2017-10-14] MEDS: SODIUM CHLORIDE 0.9% FLUSH 10 ML FLUSH IVF SCH (09:00)
[2017-10-14] MEDS: LACTOBACILLUS ACIDOPHILUS TAB PO SCH ×2 (09:00→21:00)
[2017-10-14] MEDS: AMOXICILLIN (TRIHYDRATE) 500 MG CAP PO SCH ×3 (09:36→16:47)
[2017-10-14] MEDS: PYRIDOXINE HCL 50 MG TAB PO SCH (09:36)
[2017-10-14] MEDS: oxyCODONE/ACETAMINOPHEN 5 MG/325 MG TAB PO PRN ×2 (09:37→16:47)
[2017-10-14] MEDS: DOCUSATE SODIUM 50 MG/SENNA 8.6 MG TAB PO SCH ×2 (09:37→21:00)
[2017-10-14] MEDS: SULFAMETHOXAZOLE-TRIMETHOPRIM DS 800-160 MG TAB PO SCH ×2 (09:37→20:59)
[2017-10-14] MEDS: ESCITALOPRAM OXALATE 10 MG TAB PO SCH (09:37)
[2017-10-14] MEDS: FERROUS SULFATE 325 MG (65 MG ELEMENTAL IRON) TAB PO SCH (09:37)
[2017-10-14] MEDS: GABAPENTIN 400 MG CAP PO SCH ×4 (09:37→21:00)
[2017-10-14] MEDS: CYCLOBENZAPRINE HCL 10 MG TAB PO SCH ×3 (09:38→16:47)
[2017-10-14] MEDS: CYPROHEPTADINE HCL 4 MG TAB PO SCH ×2 (09:38→21:00)
[2017-10-14] MEDS: SODIUM CHLORIDE 0.9% FLUSH 10 ML FLUSH IV FLUSH SCH ×2 (09:39→21:00)
[2017-10-14] MEDS: SODIUM HYPOCHLORITE 0.25% 500 ML BTL TOPICAL SCH (09:41)
[2017-10-14] MEDS: ZINC OXIDE 40% OINT 60 GM TUBE TOPICAL SCH ×2 (09:42→21:00)
[2017-10-14] MEDS: LACTIC ACID (AMMONIUM LACTATE) 12% LOTION 225 GM BTL TOPICAL SCH ×2 (09:42→21:00)
[2017-10-14 12:45] VITALS: BP 125/89; PULSE 111; TEMP 97.2; O2SAT 95
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
[2017-10-14] MEDS: ENOXAPARIN SODIUM 40 MG/0.4 ML SYRINGE SQ SCH (16:47)
[2017-10-14] MEDS: MORPHINE SULFATE 2 MG/ML SYRINGE IV PUSH PRN (17:28)
[2017-10-14 17:30] VITALS: BP 168/98; PULSE 108; TEMP 97.9; O2SAT 96
[2017-10-14] MEDS: MIRTAZAPINE 15 MG TAB PO SCH (20:59)
[2017-10-14] MEDS: ALPRAZolam 0.25 MG TAB PO PRN (20:59)
[2017-10-15] MEDS: MORPHINE SULFATE 2 MG/ML SYRINGE IV PUSH PRN ×3 (00:23→22:04)
[2017-10-15 08:00] VITALS: BP 138/96; PULSE 105; RESP 17; TEMP 98.1; O2SAT 94
[2017-10-15] MEDS: LACTOBACILLUS ACIDOPHILUS TAB PO SCH ×2 (09:00→20:57)
[2017-10-15] MEDS: SODIUM CHLORIDE 0.9% FLUSH 10 ML FLUSH IVF SCH (09:00)
[2017-10-15] MEDS: AMOXICILLIN (TRIHYDRATE) 500 MG CAP PO SCH ×3 (09:42→18:00)
[2017-10-15] MEDS: CYCLOBENZAPRINE HCL 10 MG TAB PO SCH ×3 (09:42→16:46)
[2017-10-15] MEDS: GABAPENTIN 400 MG CAP PO SCH ×4 (09:42→20:54)
[2017-10-15] MEDS: PYRIDOXINE HCL 50 MG TAB PO SCH (09:42)
[2017-10-15] MEDS: SULFAMETHOXAZOLE-TRIMETHOPRIM DS 800-160 MG TAB PO SCH ×2 (09:42→20:54)
[2017-10-15] MEDS: LACTIC ACID (AMMONIUM LACTATE) 12% LOTION 225 GM BTL TOPICAL SCH ×2 (09:43→20:57)
[2017-10-15] MEDS: CYPROHEPTADINE HCL 4 MG TAB PO SCH ×2 (09:43→20:55)
[2017-10-15] MEDS: DOCUSATE SODIUM 50 MG/SENNA 8.6 MG TAB PO SCH ×2 (09:43→20:54)
[2017-10-15] MEDS: SODIUM CHLORIDE 0.9% FLUSH 10 ML FLUSH IV FLUSH SCH ×2 (09:43→20:57)
[2017-10-15] MEDS: FERROUS SULFATE 325 MG (65 MG ELEMENTAL IRON) TAB PO SCH (09:43)
[2017-10-15] MEDS: ESCITALOPRAM OXALATE 10 MG TAB PO SCH (09:43)
[2017-10-15] MEDS: SODIUM HYPOCHLORITE 0.25% 500 ML BTL TOPICAL SCH (09:44)
[2017-10-15] MEDS: ZINC OXIDE 40% OINT 60 GM TUBE TOPICAL SCH ×2 (09:44→20:57)
[2017-10-15 12:00] VITALS: BP 142/88; PULSE 110; RESP 18; TEMP 97.5; O2SAT 97
[2017-10-15] MEDS: oxyCODONE/ACETAMINOPHEN 5 MG/325 MG TAB PO PRN ×3 (12:37→23:46)
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
[2017-10-15 16:00] VITALS: BP 136/89; PULSE 111; RESP 17; TEMP 97.7; O2SAT 95
[2017-10-15] MEDS: HYDROmorphone HCL 4 MG TAB PO PRN ×2 (16:46→20:55)
[2017-10-15] MEDS: ENOXAPARIN SODIUM 40 MG/0.4 ML SYRINGE SQ SCH (16:49)
[2017-10-15 20:00] VITALS: BP 142/89; PULSE 113; RESP 16; TEMP 98.2; O2SAT 95
[2017-10-15 20:13] VITALS: PULSE 69
[2017-10-15] MEDS: MIRTAZAPINE 15 MG TAB PO SCH (20:55)
[2017-10-15] MEDS: ALPRAZolam 0.25 MG TAB PO PRN (21:02)
[2017-10-15 23:41] VITALS: PULSE 75
[2017-10-16 08:00] VITALS: BP 141/76; PULSE 106; RESP 20; TEMP 97.8; O2SAT 96
[2017-10-16] MEDS: SODIUM CHLORIDE 0.9% FLUSH 10 ML FLUSH IVF SCH (09:00)
[2017-10-16] MEDS: SODIUM CHLORIDE 0.9% FLUSH 10 ML FLUSH IV FLUSH SCH ×2 (09:00→22:08)
[2017-10-16] MEDS: SODIUM HYPOCHLORITE 0.25% 500 ML BTL TOPICAL SCH (09:00)
[2017-10-16] MEDS: ZINC OXIDE 40% OINT 60 GM TUBE TOPICAL SCH ×2 (09:00→22:09)
[2017-10-16] MEDS: SULFAMETHOXAZOLE-TRIMETHOPRIM DS 800-160 MG TAB PO SCH ×3 (09:00→22:05)
[2017-10-16] MEDS: LACTIC ACID (AMMONIUM LACTATE) 12% LOTION 225 GM BTL TOPICAL SCH ×2 (09:00→22:09)
[2017-10-16] MEDS: AMOXICILLIN (TRIHYDRATE) 500 MG CAP PO SCH ×3 (09:19→17:29)
[2017-10-16] MEDS: FERROUS SULFATE 325 MG (65 MG ELEMENTAL IRON) TAB PO SCH (09:19)
[2017-10-16] MEDS: CYCLOBENZAPRINE HCL 10 MG TAB PO SCH ×3 (09:19→17:29)
[2017-10-16] MEDS: GABAPENTIN 400 MG CAP PO SCH ×4 (09:19→22:07)
[2017-10-16] MEDS: LACTOBACILLUS ACIDOPHILUS TAB PO SCH ×2 (09:19→21:00)
[2017-10-16] MEDS: ESCITALOPRAM OXALATE 10 MG TAB PO SCH (09:19)
[2017-10-16] MEDS: DOCUSATE SODIUM 50 MG/SENNA 8.6 MG TAB PO SCH ×2 (09:19→22:07)
[2017-10-16] MEDS: CYPROHEPTADINE HCL 4 MG TAB PO SCH ×2 (09:20→22:07)
[2017-10-16] MEDS: PYRIDOXINE HCL 50 MG TAB PO SCH (09:20)
[2017-10-16 12:00] VITALS: BP 135/76; PULSE 106; RESP 18; TEMP 98.1; O2SAT 97
[2017-10-16] MEDS: MORPHINE SULFATE 2 MG/ML SYRINGE IV PUSH PRN ×2 (12:22→22:08)
[2017-10-16 16:00] VITALS: BP 151/84; PULSE 111; RESP 18; TEMP 97.8; O2SAT 98
[2017-10-16] MEDS: ENOXAPARIN SODIUM 40 MG/0.4 ML SYRINGE SQ SCH (17:29)
[2017-10-16] MEDS: oxyCODONE/ACETAMINOPHEN 5 MG/325 MG TAB PO PRN (17:38)
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
[2017-10-16 20:00] VITALS: BP 132/85; PULSE 112; RESP 16; TEMP 98.2; O2SAT 93
[2017-10-16] MEDS: ALPRAZolam 0.25 MG TAB PO PRN (22:07)
[2017-10-16] MEDS: MIRTAZAPINE 15 MG TAB PO SCH (22:07)
[2017-10-17 00:01] VITALS: BP 145/90; PULSE 111; RESP 17; TEMP 97.6; O2SAT 95
[2017-10-17] MEDS: oxyCODONE/ACETAMINOPHEN 5 MG/325 MG TAB PO PRN ×2 (00:59→23:21)
[2017-10-17] MEDS: CYPROHEPTADINE HCL 4 MG TAB PO SCH ×2 (07:33→21:20)
[2017-10-17] MEDS: FERROUS SULFATE 325 MG (65 MG ELEMENTAL IRON) TAB PO SCH (07:33)
[2017-10-17] MEDS: CYCLOBENZAPRINE HCL 10 MG TAB PO SCH ×3 (07:34→17:01)
[2017-10-17] MEDS: SULFAMETHOXAZOLE-TRIMETHOPRIM DS 800-160 MG TAB PO SCH ×2 (07:34→21:20)
[2017-10-17] MEDS: AMOXICILLIN (TRIHYDRATE) 500 MG CAP PO SCH ×3 (07:34→17:01)
[2017-10-17] MEDS: DOCUSATE SODIUM 50 MG/SENNA 8.6 MG TAB PO SCH ×2 (07:35→21:00)
[2017-10-17] MEDS: GABAPENTIN 400 MG CAP PO SCH ×4 (07:35→21:20)
[2017-10-17] MEDS: PYRIDOXINE HCL 50 MG TAB PO SCH (07:36)
[2017-10-17] MEDS: ESCITALOPRAM OXALATE 10 MG TAB PO SCH (07:36)
[2017-10-17] MEDS: LACTOBACILLUS ACIDOPHILUS TAB PO SCH ×2 (07:39→21:20)
[2017-10-17 08:00] VITALS: BP 140/77; PULSE 101; RESP 18; TEMP 97.4; O2SAT 95
[2017-10-17] MEDS: SODIUM CHLORIDE 0.9% FLUSH 10 ML FLUSH IV FLUSH SCH ×2 (09:00→21:21)
[2017-10-17] MEDS: SODIUM CHLORIDE 0.9% FLUSH 10 ML FLUSH IVF SCH (09:00)
[2017-10-17] MEDS: ZINC OXIDE 40% OINT 60 GM TUBE TOPICAL SCH ×2 (09:00→21:00)
[2017-10-17] MEDS: SODIUM HYPOCHLORITE 0.25% 500 ML BTL TOPICAL SCH (09:00)
[2017-10-17] MEDS: LACTIC ACID (AMMONIUM LACTATE) 12% LOTION 225 GM BTL TOPICAL SCH ×2 (09:00→21:00)
[2017-10-17] MEDS: MORPHINE SULFATE 2 MG/ML SYRINGE IV PUSH PRN ×2 (09:34→23:26)
[2017-10-17] MEDS: SELENIUM SULFIDE 1% SHAMPOO 207 ML BOTTLE TOPICAL SCH (10:00)
[2017-10-17 12:00] VITALS: BP 141/84; PULSE 100; RESP 18; TEMP 97.7; O2SAT 97
[2017-10-17 16:00] VITALS: BP 138/82; PULSE 110; RESP 20; TEMP 98; O2SAT 96
[2017-10-17] MEDS: ENOXAPARIN SODIUM 40 MG/0.4 ML SYRINGE SQ SCH (17:00)
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
[2017-10-17 19:55] VITALS: BP 155/84; PULSE 116; RESP 16; TEMP 98.5; O2SAT 95
[2017-10-17] MEDS: MIRTAZAPINE 15 MG TAB PO SCH (21:21)
[2017-10-17] MEDS: ALPRAZolam 0.25 MG TAB PO PRN (23:21)
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
[2017-10-18 08:00] VITALS: BP 137/73; PULSE 110; RESP 18; TEMP 98.2; O2SAT 93
[2017-10-18] MEDS: SODIUM CHLORIDE 0.9% FLUSH 10 ML FLUSH IVF SCH (09:00)
[2017-10-18] MEDS: AMOXICILLIN (TRIHYDRATE) 500 MG CAP PO SCH ×3 (09:00→17:56)
[2017-10-18] MEDS: CYPROHEPTADINE HCL 4 MG TAB PO SCH ×2 (09:27→20:42)
[2017-10-18] MEDS: LACTOBACILLUS ACIDOPHILUS TAB PO SCH ×2 (09:27→20:42)
[2017-10-18] MEDS: PYRIDOXINE HCL 50 MG TAB PO SCH (09:27)
[2017-10-18] MEDS: GABAPENTIN 400 MG CAP PO SCH ×4 (09:27→20:42)
[2017-10-18] MEDS: SODIUM CHLORIDE 0.9% FLUSH 10 ML FLUSH IV FLUSH SCH ×2 (09:28→20:43)
[2017-10-18] MEDS: ESCITALOPRAM OXALATE 10 MG TAB PO SCH (09:28)
[2017-10-18] MEDS: SULFAMETHOXAZOLE-TRIMETHOPRIM DS 800-160 MG TAB PO SCH ×2 (09:28→20:42)
[2017-10-18] MEDS: FERROUS SULFATE 325 MG (65 MG ELEMENTAL IRON) TAB PO SCH (09:28)
[2017-10-18] MEDS: DOCUSATE SODIUM 50 MG/SENNA 8.6 MG TAB PO SCH ×2 (09:28→20:42)
[2017-10-18] MEDS: CYCLOBENZAPRINE HCL 10 MG TAB PO SCH ×3 (09:28→17:56)
[2017-10-18] MEDS: SODIUM HYPOCHLORITE 0.25% 500 ML BTL TOPICAL SCH (09:29)
[2017-10-18] MEDS: LACTIC ACID (AMMONIUM LACTATE) 12% LOTION 225 GM BTL TOPICAL SCH ×2 (09:30→21:00)
[2017-10-18] MEDS: ZINC OXIDE 40% OINT 60 GM TUBE TOPICAL SCH ×2 (09:31→21:00)
[2017-10-18 12:00] VITALS: BP 140/73; PULSE 101; RESP 18; TEMP 97.4; O2SAT 96
[2017-10-18] MEDS: MORPHINE SULFATE 2 MG/ML SYRINGE IV PUSH PRN ×2 (13:16→22:35)
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
[2017-10-18 16:00] VITALS: BP 140/91; PULSE 104; RESP 20; TEMP 98.1; O2SAT 97
[2017-10-18 17:17] LABS: AUTOMATED NEUTROPHIL # 3.4 TH/MM3 (1.8-7.7); BASOPHIL % 0.6 % (0.0-2.0); EOSINOPHIL # 0.2 TH/MM3 (0-0.4); EOSINOPHIL % 2.7 % (0.0-4.0); HEMATOCRIT 44.4 % (39.0-51.0); HEMOGLOBIN 15.2 GM/DL (13.0-17.0); LYMPH % 45.4 % (9.0-44.0); LYMPHOCYTE # 3.4 TH/MM3 (1.0-4.8); MEAN CELL VOLUME 84.2 FL (80.0-100.0); MEAN CORPUSCULAR HEMOGLOBIN 28.8 PG (27.0-34.0); MEAN CORPUSCULAR HGB CONC 34.2 % (32.0-36.0); MONOCYTE # 0.4 TH/MM3 (0-0.9); NEUT % 46.3 % (16.0-70.0); PLATELET COUNT 436 TH/MM3 (150-450); RED BLOOD COUNT 5.27 MIL/MM3 (4.50-5.90); RED CELL DISTRIBUTION WIDTH 17.7 % (11.6-17.2); WHITE BLOOD COUNT 7.4 TH/MM3 (4.0-11.0)
[2017-10-18 17:30] LABS: BICARBONATE 27.9 MEQ/L (21.0-32.0); CALCIUM 9.2 MG/DL (8.5-10.1); CREATININE 0.68 MG/DL (0.60-1.30); MAGNESIUM 2.1 MG/DL (1.5-2.5)
[2017-10-18] MEDS: ENOXAPARIN SODIUM 40 MG/0.4 ML SYRINGE SQ SCH (17:57)
[2017-10-18] MEDS: HYDROmorphone HCL 4 MG TAB PO PRN (18:30)
[2017-10-18 20:39] VITALS: BP 159/78; PULSE 105; RESP 18; TEMP 97.9; O2SAT 95
[2017-10-18] MEDS: MIRTAZAPINE 15 MG TAB PO SCH (20:42)
[2017-10-18] MEDS: ALPRAZolam 0.25 MG TAB PO PRN (20:43)
[2017-10-18] MEDS: SODIUM CHLORIDE 0.9% FLUSH 10 ML FLUSH IV FLUSH PRN (22:43)
[2017-10-18 23:40] VITALS: BP 150/93; PULSE 118; RESP 18; TEMP 97.8; O2SAT 95
[2017-10-19 08:00] VITALS: BP 141/90; PULSE 116; RESP 18; TEMP 97; O2SAT 95
[2017-10-19] MEDS: SODIUM CHLORIDE 0.9% FLUSH 10 ML FLUSH IV FLUSH SCH ×2 (08:09→22:43)
[2017-10-19] MEDS: SODIUM CHLORIDE 0.9% FLUSH 10 ML FLUSH IVF SCH (08:09)
[2017-10-19] MEDS: ZINC OXIDE 40% OINT 60 GM TUBE TOPICAL SCH ×2 (08:11→22:44)
[2017-10-19] MEDS: LACTIC ACID (AMMONIUM LACTATE) 12% LOTION 225 GM BTL TOPICAL SCH ×2 (08:11→22:44)
[2017-10-19] MEDS: SODIUM HYPOCHLORITE 0.25% 500 ML BTL TOPICAL SCH (08:11)
[2017-10-19] MEDS: GABAPENTIN 400 MG CAP PO SCH ×4 (08:26→22:41)
[2017-10-19] MEDS: DOCUSATE SODIUM 50 MG/SENNA 8.6 MG TAB PO SCH ×2 (08:26→22:40)
[2017-10-19] MEDS: LACTOBACILLUS ACIDOPHILUS TAB PO SCH ×2 (08:26→21:00)
[2017-10-19] MEDS: FERROUS SULFATE 325 MG (65 MG ELEMENTAL IRON) TAB PO SCH (08:26)
[2017-10-19] MEDS: ESCITALOPRAM OXALATE 10 MG TAB PO SCH (08:26)
[2017-10-19] MEDS: CYCLOBENZAPRINE HCL 10 MG TAB PO SCH ×3 (08:26→17:28)
[2017-10-19] MEDS: PYRIDOXINE HCL 50 MG TAB PO SCH (09:16)
[2017-10-19] MEDS: CYPROHEPTADINE HCL 4 MG TAB PO SCH ×2 (09:16→22:41)
[2017-10-19 12:00] VITALS: BP_SYST 165; BP_SYST 166; BP_DIAS 61; BP_DIAS 85; PULSE 114; PULSE 84; RESP 18; RESP 19; TEMP 96.6; TEMP 98.2; O2SAT 95; O2SAT 97
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
[2017-10-19] MEDS: MORPHINE SULFATE 2 MG/ML SYRINGE IV PUSH PRN ×2 (15:02→22:54)
[2017-10-19 16:00] VITALS: BP 146/82; PULSE 120; RESP 18; TEMP 98.4; O2SAT 95
[2017-10-19] MEDS: ENOXAPARIN SODIUM 40 MG/0.4 ML SYRINGE SQ SCH (17:28)
[2017-10-19 20:00] VITALS: BP 139/89; PULSE 116; RESP 20; TEMP 98.4; O2SAT 95
[2017-10-19] MEDS: MIRTAZAPINE 15 MG TAB PO SCH (22:41)
[2017-10-19] MEDS: SODIUM CHLORIDE 0.9% FLUSH 10 ML FLUSH IV FLUSH PRN (22:54)
[2017-10-19] MEDS: ALPRAZolam 0.25 MG TAB PO PRN (23:01)
[2017-10-20] VITALS: BP 153/91; PULSE 119; RESP 20; TEMP 98.4; O2SAT 95
[2017-10-20 04:00] VITALS: BP 147/75; PULSE 114; RESP 20; TEMP 98.3; O2SAT 94
[2017-10-20 08:00] VITALS: BP 144/94; PULSE 108; RESP 20; TEMP 98.1; O2SAT 97
[2017-10-20] MEDS: ZINC OXIDE 40% OINT 60 GM TUBE TOPICAL SCH ×2 (09:00→21:03)
[2017-10-20] MEDS: SODIUM HYPOCHLORITE 0.25% 500 ML BTL TOPICAL SCH (09:00)
[2017-10-20] MEDS: SODIUM CHLORIDE 0.9% FLUSH 10 ML FLUSH IVF SCH (09:00)
[2017-10-20] MEDS: SODIUM CHLORIDE 0.9% FLUSH 10 ML FLUSH IV FLUSH SCH ×2 (09:00→21:01)
[2017-10-20] MEDS: LACTIC ACID (AMMONIUM LACTATE) 12% LOTION 225 GM BTL TOPICAL SCH ×2 (09:00→21:03)
[2017-10-20] MEDS: LACTOBACILLUS ACIDOPHILUS TAB PO SCH ×2 (09:00→21:01)
[2017-10-20] MEDS ORDERED: PILL SPLITTER OTHER PRN (09:45)
[2017-10-20] MEDS: PYRIDOXINE HCL 50 MG TAB PO SCH (10:00)
[2017-10-20] MEDS: FERROUS SULFATE 325 MG (65 MG ELEMENTAL IRON) TAB PO SCH (10:00)
[2017-10-20] MEDS: GABAPENTIN 400 MG CAP PO SCH ×4 (10:00→21:01)
[2017-10-20] MEDS: ESCITALOPRAM OXALATE 10 MG TAB PO SCH (10:00)
[2017-10-20] MEDS: DOCUSATE SODIUM 50 MG/SENNA 8.6 MG TAB PO SCH ×2 (10:01→21:01)
[2017-10-20] MEDS: CYCLOBENZAPRINE HCL 10 MG TAB PO SCH ×3 (10:01→17:26)
[2017-10-20] MEDS: METOPROLOL TARTRATE 25 MG TAB PO SCH ×2 (10:18→21:01)
[2017-10-20 12:00] VITALS: BP 139/70; PULSE 99; RESP 20; TEMP 97.9; O2SAT 96
[2017-10-20] MEDS: MORPHINE SULFATE 2 MG/ML SYRINGE IV PUSH PRN ×2 (13:07→22:52)
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
[2017-10-20] MEDS: CYPROHEPTADINE HCL 4 MG TAB PO SCH ×2 (14:09→21:02)
[2017-10-20 16:00] VITALS: BP 133/98; PULSE 91; RESP 20; TEMP 97.5; O2SAT 98
[2017-10-20] MEDS: ENOXAPARIN SODIUM 40 MG/0.4 ML SYRINGE SQ SCH (17:26)
[2017-10-20 20:00] VITALS: BP 135/75; PULSE 121; RESP 17; TEMP 98.3; O2SAT 95
[2017-10-20] MEDS: MIRTAZAPINE 15 MG TAB PO SCH (21:01)
[2017-10-20] MEDS: ALPRAZolam 0.25 MG TAB PO PRN (22:52)
[2017-10-21] MEDS: HYDROmorphone HCL 4 MG TAB PO PRN (03:34)
[2017-10-21 08:38] VITALS: BP 129/88; PULSE 106; RESP 22; TEMP 98.4; O2SAT 95
[2017-10-21] MEDS: LACTOBACILLUS ACIDOPHILUS TAB PO SCH ×2 (09:00→22:16)
[2017-10-21] MEDS: SODIUM CHLORIDE 0.9% FLUSH 10 ML FLUSH IV FLUSH SCH ×2 (09:00→22:17)
[2017-10-21] MEDS: SODIUM CHLORIDE 0.9% FLUSH 10 ML FLUSH IVF SCH (09:00)
[2017-10-21] MEDS: SODIUM HYPOCHLORITE 0.25% 500 ML BTL TOPICAL SCH (09:00)
[2017-10-21] MEDS: LACTIC ACID (AMMONIUM LACTATE) 12% LOTION 225 GM BTL TOPICAL SCH ×2 (09:00→22:17)
[2017-10-21] MEDS: ZINC OXIDE 40% OINT 60 GM TUBE TOPICAL SCH ×2 (09:00→22:17)
[2017-10-21] MEDS: METOPROLOL TARTRATE 25 MG TAB PO SCH ×2 (09:15→22:16)
[2017-10-21] MEDS: GABAPENTIN 400 MG CAP PO SCH ×4 (09:15→22:16)
[2017-10-21] MEDS: DOCUSATE SODIUM 50 MG/SENNA 8.6 MG TAB PO SCH ×2 (09:16→22:16)
[2017-10-21] MEDS: FERROUS SULFATE 325 MG (65 MG ELEMENTAL IRON) TAB PO SCH (09:16)
[2017-10-21] MEDS: CYCLOBENZAPRINE HCL 10 MG TAB PO SCH ×3 (09:16→17:37)
[2017-10-21] MEDS: ESCITALOPRAM OXALATE 10 MG TAB PO SCH (09:16)
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
[2017-10-21 12:14] VITALS: BP 136/81; PULSE 105; RESP 21; TEMP 97.7; O2SAT 98
[2017-10-21] MEDS: MORPHINE SULFATE 2 MG/ML SYRINGE IV PUSH PRN ×2 (12:36→22:18)
[2017-10-21] MEDS: CYPROHEPTADINE HCL 4 MG TAB PO SCH ×2 (14:39→22:17)
[2017-10-21] MEDS: PYRIDOXINE HCL 50 MG TAB PO SCH (14:39)
[2017-10-21 16:11] VITALS: BP 156/92; PULSE 99; RESP 22; TEMP 97.8; O2SAT 97
[2017-10-21] MEDS: ENOXAPARIN SODIUM 40 MG/0.4 ML SYRINGE SQ SCH (17:37)
[2017-10-21 20:00] VITALS: BP 137/81; PULSE 118; RESP 18; TEMP 98.3; O2SAT 96
[2017-10-21] MEDS: MIRTAZAPINE 15 MG TAB PO SCH (22:16)
[2017-10-21] MEDS: ALPRAZolam 0.25 MG TAB PO PRN (22:18)
[2017-10-21 23:54] VITALS: BP 163/76; PULSE 114; RESP 18; TEMP 98.4; O2SAT 96
[2017-10-22] MEDS: oxyCODONE/ACETAMINOPHEN 5 MG/325 MG TAB PO PRN ×2 (00:37→20:15)
[2017-10-22 08:00] VITALS: BP 121/72; PULSE 103; RESP 18; TEMP 97.6; O2SAT 95
[2017-10-22] MEDS: SODIUM CHLORIDE 0.9% FLUSH 10 ML FLUSH IVF SCH (09:00)
[2017-10-22] MEDS: ESCITALOPRAM OXALATE 10 MG TAB PO SCH (09:52)
[2017-10-22] MEDS: LACTOBACILLUS ACIDOPHILUS TAB PO SCH ×2 (09:52→20:13)
[2017-10-22] MEDS: FERROUS SULFATE 325 MG (65 MG ELEMENTAL IRON) TAB PO SCH (09:52)
[2017-10-22] MEDS: CYPROHEPTADINE HCL 4 MG TAB PO SCH ×2 (09:53→20:13)
[2017-10-22] MEDS: CYCLOBENZAPRINE HCL 10 MG TAB PO SCH ×3 (09:53→18:13)
[2017-10-22] MEDS: SODIUM CHLORIDE 0.9% FLUSH 10 ML FLUSH IV FLUSH SCH ×2 (09:53→20:14)
[2017-10-22] MEDS: METOPROLOL TARTRATE 25 MG TAB PO SCH ×2 (09:53→20:14)
[2017-10-22] MEDS: GABAPENTIN 400 MG CAP PO SCH ×4 (09:53→20:13)
[2017-10-22] MEDS: PYRIDOXINE HCL 50 MG TAB PO SCH (09:53)
[2017-10-22] MEDS: DOCUSATE SODIUM 50 MG/SENNA 8.6 MG TAB PO SCH ×2 (09:53→20:13)
[2017-10-22] MEDS: LACTIC ACID (AMMONIUM LACTATE) 12% LOTION 225 GM BTL TOPICAL SCH ×2 (09:54→20:15)
[2017-10-22] MEDS: SODIUM HYPOCHLORITE 0.25% 500 ML BTL TOPICAL SCH (09:54)
[2017-10-22] MEDS: ZINC OXIDE 40% OINT 60 GM TUBE TOPICAL SCH ×2 (09:54→20:15)
[2017-10-22 12:00] VITALS: BP 156/86; PULSE 107; RESP 18; TEMP 98.2; O2SAT 95
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
[2017-10-22 16:00] VITALS: BP 121/69; PULSE 106; RESP 18; TEMP 98.3; O2SAT 95
[2017-10-22] MEDS: ENOXAPARIN SODIUM 40 MG/0.4 ML SYRINGE SQ SCH (18:13)
[2017-10-22 20:00] VITALS: BP 138/81; PULSE 114; RESP 18; TEMP 97.9; O2SAT 95
[2017-10-22] MEDS: MIRTAZAPINE 15 MG TAB PO SCH (20:14)
[2017-10-22] MEDS: ALPRAZolam 0.25 MG TAB PO PRN (22:14)
[2017-10-22] MEDS: MORPHINE SULFATE 2 MG/ML SYRINGE IV PUSH PRN (22:16)
[2017-10-23] VITALS: BP 148/75; PULSE 116; RESP 18; TEMP 97.7; O2SAT 95
[2017-10-23] MEDS: HYDROmorphone HCL 4 MG TAB PO PRN ×2 (01:43→15:44)
[2017-10-23 08:01] VITALS: BP 118/77; PULSE 104; RESP 20; TEMP 97.6; O2SAT 95
[2017-10-23] MEDS: SODIUM CHLORIDE 0.9% FLUSH 10 ML FLUSH IVF SCH (09:00)
[2017-10-23] MEDS: SODIUM CHLORIDE 0.9% FLUSH 10 ML FLUSH IV FLUSH SCH ×2 (09:00→23:30)
[2017-10-23] MEDS: FERROUS SULFATE 325 MG (65 MG ELEMENTAL IRON) TAB PO SCH (09:42)
[2017-10-23] MEDS: METOPROLOL TARTRATE 25 MG TAB PO SCH ×2 (09:42→23:28)
[2017-10-23] MEDS: GABAPENTIN 400 MG CAP PO SCH ×4 (09:42→23:28)
[2017-10-23] MEDS: ESCITALOPRAM OXALATE 10 MG TAB PO SCH (09:42)
[2017-10-23] MEDS: CYCLOBENZAPRINE HCL 10 MG TAB PO SCH ×3 (09:42→18:13)
[2017-10-23] MEDS: DOCUSATE SODIUM 50 MG/SENNA 8.6 MG TAB PO SCH ×2 (09:42→23:28)
[2017-10-23] MEDS: LACTOBACILLUS ACIDOPHILUS TAB PO SCH ×2 (09:42→21:00)
[2017-10-23] MEDS: SODIUM HYPOCHLORITE 0.25% 500 ML BTL TOPICAL SCH (09:43)
[2017-10-23] MEDS: ZINC OXIDE 40% OINT 60 GM TUBE TOPICAL SCH ×2 (09:44→23:35)
[2017-10-23] MEDS: LACTIC ACID (AMMONIUM LACTATE) 12% LOTION 225 GM BTL TOPICAL SCH ×2 (09:45→23:35)
[2017-10-23] MEDS: CYPROHEPTADINE HCL 4 MG TAB PO SCH ×2 (09:53→23:30)
[2017-10-23] MEDS: PYRIDOXINE HCL 50 MG TAB PO SCH (09:53)
[2017-10-23 12:01] VITALS: BP 109/60; PULSE 99; RESP 20; TEMP 97.9; O2SAT 95
[2017-10-23] MEDS: MORPHINE SULFATE 2 MG/ML SYRINGE IV PUSH PRN ×2 (13:40→23:31)
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
[2017-10-23 16:01] VITALS: BP 137/74; PULSE 98; RESP 20; TEMP 97.4; O2SAT 96
[2017-10-23] MEDS: ENOXAPARIN SODIUM 40 MG/0.4 ML SYRINGE SQ SCH (18:13)
[2017-10-23 20:08] VITALS: BP 141/82; PULSE 111; RESP 16; TEMP 98.1; O2SAT 94
[2017-10-23] MEDS: ALPRAZolam 0.25 MG TAB PO PRN (23:27)
[2017-10-23 23:28] VITALS: BP 154/74; PULSE 110; RESP 18; TEMP 98; O2SAT 96
[2017-10-23] MEDS: MIRTAZAPINE 15 MG TAB PO SCH (23:28)
[2017-10-24 03:55] VITALS: BP 142/80; PULSE 107; RESP 16; TEMP 97.2; O2SAT 91
[2017-10-24] MEDS: HYDROmorphone HCL 4 MG TAB PO PRN (04:04)
[2017-10-24 08:04] VITALS: BP 118/77; PULSE 99; RESP 20; TEMP 97.6; O2SAT 95
[2017-10-24] MEDS: SODIUM CHLORIDE 0.9% FLUSH 10 ML FLUSH IVF SCH (09:00)
[2017-10-24] MEDS: GABAPENTIN 400 MG CAP PO SCH ×4 (11:35→21:44)
[2017-10-24] MEDS: METOPROLOL TARTRATE 25 MG TAB PO SCH ×2 (11:35→21:46)
[2017-10-24] MEDS: ESCITALOPRAM OXALATE 10 MG TAB PO SCH (11:35)
[2017-10-24] MEDS: FERROUS SULFATE 325 MG (65 MG ELEMENTAL IRON) TAB PO SCH (11:35)
[2017-10-24] MEDS: CYPROHEPTADINE HCL 4 MG TAB PO SCH ×2 (11:35→21:44)
[2017-10-24] MEDS: LACTOBACILLUS ACIDOPHILUS TAB PO SCH ×2 (11:36→21:45)
[2017-10-24] MEDS: DOCUSATE SODIUM 50 MG/SENNA 8.6 MG TAB PO SCH ×2 (11:36→21:45)
[2017-10-24] MEDS: PYRIDOXINE HCL 50 MG TAB PO SCH (11:36)
[2017-10-24] MEDS: CYCLOBENZAPRINE HCL 10 MG TAB PO SCH ×3 (11:36→18:09)
[2017-10-24] MEDS: SODIUM CHLORIDE 0.9% FLUSH 10 ML FLUSH IV FLUSH SCH ×2 (11:36→21:46)
[2017-10-24] MEDS: SODIUM HYPOCHLORITE 0.25% 500 ML BTL TOPICAL SCH (11:46)
[2017-10-24] MEDS: ZINC OXIDE 40% OINT 60 GM TUBE TOPICAL SCH ×2 (11:46→21:47)
[2017-10-24] MEDS: LACTIC ACID (AMMONIUM LACTATE) 12% LOTION 225 GM BTL TOPICAL SCH ×2 (11:46→21:47)
[2017-10-24] MEDS: SELENIUM SULFIDE 1% SHAMPOO 207 ML BOTTLE TOPICAL SCH (11:47)
[2017-10-24 12:04] VITALS: BP 134/75; PULSE 95; RESP 20; TEMP 97.5; O2SAT 97
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
[2017-10-24] MEDS: ENOXAPARIN SODIUM 40 MG/0.4 ML SYRINGE SQ SCH (15:31)
[2017-10-24] MEDS: MORPHINE SULFATE 2 MG/ML SYRINGE IV PUSH PRN ×2 (15:33→21:46)
[2017-10-24 16:04] VITALS: BP 140/72; PULSE 56; RESP 20; TEMP 97.5; O2SAT 97
[2017-10-24 20:00] VITALS: BP 148/89; PULSE 107; RESP 18; TEMP 98.1; O2SAT 96
[2017-10-24] MEDS: MIRTAZAPINE 15 MG TAB PO SCH (21:45)
[2017-10-24] MEDS: ALPRAZolam 0.25 MG TAB PO PRN (21:45)
[2017-10-25] VITALS: BP 138/78; PULSE 112; RESP 16; TEMP 98; O2SAT 96
[2017-10-25] MEDS: HYDROmorphone HCL 4 MG TAB PO PRN ×2 (00:31→09:20)
[2017-10-25] MEDS: SODIUM CHLORIDE 0.9% FLUSH 10 ML FLUSH IVF SCH (09:00)
[2017-10-25 09:17] VITALS: BP 134/79; PULSE 108; RESP 20; TEMP 97.9; O2SAT 94
[2017-10-25] MEDS: DOCUSATE SODIUM 50 MG/SENNA 8.6 MG TAB PO SCH ×2 (09:19→20:50)
[2017-10-25] MEDS: GABAPENTIN 400 MG CAP PO SCH ×4 (09:19→20:50)
[2017-10-25] MEDS: LACTOBACILLUS ACIDOPHILUS TAB PO SCH ×2 (09:19→20:53)
[2017-10-25] MEDS: CYPROHEPTADINE HCL 4 MG TAB PO SCH ×2 (09:19→20:51)
[2017-10-25] MEDS: PYRIDOXINE HCL 50 MG TAB PO SCH (09:19)
[2017-10-25] MEDS: METOPROLOL TARTRATE 25 MG TAB PO SCH ×2 (09:20→20:51)
[2017-10-25] MEDS: ESCITALOPRAM OXALATE 10 MG TAB PO SCH (09:20)
[2017-10-25] MEDS: CYCLOBENZAPRINE HCL 10 MG TAB PO SCH ×3 (09:20→17:12)
[2017-10-25] MEDS: FERROUS SULFATE 325 MG (65 MG ELEMENTAL IRON) TAB PO SCH (09:21)
[2017-10-25] MEDS: SODIUM HYPOCHLORITE 0.25% 500 ML BTL TOPICAL SCH (09:21)
[2017-10-25] MEDS: SODIUM CHLORIDE 0.9% FLUSH 10 ML FLUSH IV FLUSH SCH ×2 (09:21→20:51)
[2017-10-25] MEDS: LACTIC ACID (AMMONIUM LACTATE) 12% LOTION 225 GM BTL TOPICAL SCH ×2 (09:22→23:22)
[2017-10-25] MEDS: ZINC OXIDE 40% OINT 60 GM TUBE TOPICAL SCH ×2 (09:22→23:22)
[2017-10-25] MEDS: MORPHINE SULFATE 2 MG/ML SYRINGE IV PUSH PRN ×2 (13:02→23:23)
[2017-10-25] MEDS: SIMETHICONE 125 MG CHEWABLE TAB PO PRN (13:53)
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
[2017-10-25] MEDS: oxyCODONE/ACETAMINOPHEN 5 MG/325 MG TAB PO PRN ×2 (15:47→20:51)
[2017-10-25 16:10] VITALS: BP 124/78; PULSE 103; RESP 19; TEMP 98.2; O2SAT 98
[2017-10-25] MEDS: ENOXAPARIN SODIUM 40 MG/0.4 ML SYRINGE SQ SCH (17:12)
[2017-10-25 20:00] VITALS: BP 129/85; PULSE 117; RESP 18; TEMP 98; O2SAT 96
[2017-10-25] MEDS: MIRTAZAPINE 15 MG TAB PO SCH (20:50)
[2017-10-25] MEDS: ALPRAZolam 0.25 MG TAB PO PRN (20:50)
[2017-10-26] VITALS: BP 140/89; PULSE 115; RESP 20; TEMP 97.5; O2SAT 96
[2017-10-26] MEDS: oxyCODONE/ACETAMINOPHEN 5 MG/325 MG TAB PO PRN ×2 (00:59→21:38)
[2017-10-26] MEDS: SODIUM CHLORIDE 0.9% FLUSH 10 ML FLUSH IVF SCH (07:14)
[2017-10-26] MEDS: SODIUM CHLORIDE 0.9% FLUSH 10 ML FLUSH IV FLUSH SCH ×2 (07:14→21:40)
[2017-10-26 08:00] VITALS: BP 131/90; PULSE 107; RESP 18; TEMP 97.6; O2SAT 94
[2017-10-26] MEDS: CYPROHEPTADINE HCL 4 MG TAB PO SCH ×2 (08:52→21:38)
[2017-10-26] MEDS: DOCUSATE SODIUM 50 MG/SENNA 8.6 MG TAB PO SCH ×2 (08:52→21:38)
[2017-10-26] MEDS: PYRIDOXINE HCL 50 MG TAB PO SCH (08:52)
[2017-10-26] MEDS: LACTOBACILLUS ACIDOPHILUS TAB PO SCH ×2 (08:53→21:00)
[2017-10-26] MEDS: ZINC OXIDE 40% OINT 60 GM TUBE TOPICAL SCH ×2 (08:53→21:39)
[2017-10-26] MEDS: CYCLOBENZAPRINE HCL 10 MG TAB PO SCH ×3 (08:53→17:21)
[2017-10-26] MEDS: LACTIC ACID (AMMONIUM LACTATE) 12% LOTION 225 GM BTL TOPICAL SCH ×2 (08:53→21:39)
[2017-10-26] MEDS: FERROUS SULFATE 325 MG (65 MG ELEMENTAL IRON) TAB PO SCH (08:53)
[2017-10-26] MEDS: SODIUM HYPOCHLORITE 0.25% 500 ML BTL TOPICAL SCH (08:53)
[2017-10-26] MEDS: METOPROLOL TARTRATE 25 MG TAB PO SCH ×2 (08:53→21:38)
[2017-10-26] MEDS: ESCITALOPRAM OXALATE 10 MG TAB PO SCH (08:53)
[2017-10-26] MEDS: GABAPENTIN 400 MG CAP PO SCH ×4 (08:53→21:38)
[2017-10-26 12:00] VITALS: BP 133/66; PULSE 103; RESP 20; TEMP 97.6; O2SAT 95
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
[2017-10-26] MEDS: MORPHINE SULFATE 2 MG/ML SYRINGE IV PUSH PRN (15:05)
[2017-10-26 16:00] VITALS: BP 130/69; PULSE 99; RESP 18; TEMP 97.8; O2SAT 96
[2017-10-26] MEDS: ENOXAPARIN SODIUM 40 MG/0.4 ML SYRINGE SQ SCH (17:21)
[2017-10-26 20:00] VITALS: BP 147/90; PULSE 120; RESP 17; TEMP 98; O2SAT 97
[2017-10-26] MEDS: ALPRAZolam 0.25 MG TAB PO PRN (21:38)
[2017-10-26] MEDS: MIRTAZAPINE 15 MG TAB PO SCH (21:38)
[2017-10-27] VITALS: BP 139/63; PULSE 118; RESP 16; TEMP 98.5; O2SAT 95
[2017-10-27] MEDS: MORPHINE SULFATE 2 MG/ML SYRINGE IV PUSH PRN (00:05)
[2017-10-27] MEDS: oxyCODONE/ACETAMINOPHEN 5 MG/325 MG TAB PO PRN (01:24)
[2017-10-27] MEDS: diphenhydrAMINE HCL 25 MG CAP PO PRN (01:24)
[2017-10-27 08:00] VITALS: BP 117/72; PULSE 103; RESP 17; TEMP 98.2; O2SAT 93
[2017-10-27] MEDS: ZINC OXIDE 40% OINT 60 GM TUBE TOPICAL SCH ×2 (09:00→21:00)
[2017-10-27] MEDS: SODIUM HYPOCHLORITE 0.25% 500 ML BTL TOPICAL SCH (09:00)
[2017-10-27] MEDS: SODIUM CHLORIDE 0.9% FLUSH 10 ML FLUSH IV FLUSH SCH ×2 (09:00→22:54)
[2017-10-27] MEDS: LACTIC ACID (AMMONIUM LACTATE) 12% LOTION 225 GM BTL TOPICAL SCH ×2 (09:00→21:00)
[2017-10-27] MEDS: SODIUM CHLORIDE 0.9% FLUSH 10 ML FLUSH IVF SCH (09:00)
[2017-10-27] MEDS: LACTOBACILLUS ACIDOPHILUS TAB PO SCH ×2 (10:55→21:00)
[2017-10-27] MEDS: CYCLOBENZAPRINE HCL 10 MG TAB PO SCH ×3 (10:55→18:22)
[2017-10-27] MEDS: DOCUSATE SODIUM 50 MG/SENNA 8.6 MG TAB PO SCH ×2 (10:56→22:46)
[2017-10-27] MEDS: ESCITALOPRAM OXALATE 10 MG TAB PO SCH (10:56)
[2017-10-27] MEDS: CYPROHEPTADINE HCL 4 MG TAB PO SCH ×2 (10:56→22:48)
[2017-10-27] MEDS: PYRIDOXINE HCL 50 MG TAB PO SCH (10:56)
[2017-10-27] MEDS: GABAPENTIN 400 MG CAP PO SCH ×4 (10:56→22:46)
[2017-10-27] MEDS: FERROUS SULFATE 325 MG (65 MG ELEMENTAL IRON) TAB PO SCH (10:56)
[2017-10-27] MEDS: METOPROLOL TARTRATE 25 MG TAB PO SCH ×2 (10:57→22:47)
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
[2017-10-27 12:00] VITALS: BP 124/80; PULSE 104; RESP 17; TEMP 97.3; O2SAT 95
[2017-10-27 16:00] VITALS: BP 147/89; PULSE 89; RESP 17; TEMP 98.1; O2SAT 94
[2017-10-27] MEDS: ENOXAPARIN SODIUM 40 MG/0.4 ML SYRINGE SQ SCH (18:24)
[2017-10-27 20:00] VITALS: BP 127/68; PULSE 113; RESP 18; TEMP 98.3; O2SAT 93
[2017-10-27] MEDS: MIRTAZAPINE 15 MG TAB PO SCH (22:47)
[2017-10-27] MEDS: ALPRAZolam 0.25 MG TAB PO PRN (22:47)
[2017-10-27] MEDS: HYDROmorphone HCL 4 MG TAB PO PRN (22:54)
[2017-10-28] VITALS: BP 124/65; PULSE 95; RESP 18; TEMP 98.4; O2SAT 94
[2017-10-28] MEDS: MORPHINE SULFATE 2 MG/ML SYRINGE IV PUSH PRN ×2 (00:21→13:41)
[2017-10-28] MEDS: diphenhydrAMINE HCL 25 MG CAP PO PRN (00:21)
[2017-10-28 08:00] VITALS: BP_SYST 108; BP_SYST 145; BP_DIAS 61; BP_DIAS 82; PULSE 92; RESP 19; TEMP 98.3; O2SAT 94
[2017-10-28] MEDS: SODIUM CHLORIDE 0.9% FLUSH 10 ML FLUSH IVF SCH (09:00)
[2017-10-28] MEDS: SODIUM CHLORIDE 0.9% FLUSH 10 ML FLUSH IV FLUSH SCH ×2 (09:00→21:50)
[2017-10-28] MEDS: CYCLOBENZAPRINE HCL 10 MG TAB PO SCH ×3 (09:00→17:36)
[2017-10-28] MEDS: SODIUM HYPOCHLORITE 0.25% 500 ML BTL TOPICAL SCH (09:00)
[2017-10-28] MEDS: LACTIC ACID (AMMONIUM LACTATE) 12% LOTION 225 GM BTL TOPICAL SCH ×2 (09:00→21:50)
[2017-10-28] MEDS: ZINC OXIDE 40% OINT 60 GM TUBE TOPICAL SCH ×2 (09:00→21:50)
[2017-10-28] MEDS: LACTOBACILLUS ACIDOPHILUS TAB PO SCH ×2 (10:26→21:47)
[2017-10-28] MEDS: CYPROHEPTADINE HCL 4 MG TAB PO SCH ×2 (10:26→21:48)
[2017-10-28] MEDS: DOCUSATE SODIUM 50 MG/SENNA 8.6 MG TAB PO SCH ×2 (10:26→21:48)
[2017-10-28] MEDS: GABAPENTIN 400 MG CAP PO SCH ×4 (10:26→21:47)
[2017-10-28] MEDS: ESCITALOPRAM OXALATE 10 MG TAB PO SCH (10:27)
[2017-10-28] MEDS: PYRIDOXINE HCL 50 MG TAB PO SCH (10:27)
[2017-10-28] MEDS: FERROUS SULFATE 325 MG (65 MG ELEMENTAL IRON) TAB PO SCH (10:27)
[2017-10-28] MEDS: METOPROLOL TARTRATE 25 MG TAB PO SCH ×2 (10:27→21:48)
[2017-10-28 12:00] VITALS: BP 140/84; PULSE 109; RESP 20; TEMP 98.2; O2SAT 94
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
[2017-10-28 16:00] VITALS: BP 129/75; PULSE 106; RESP 18; TEMP 97.6; O2SAT 95
[2017-10-28] MEDS: ENOXAPARIN SODIUM 40 MG/0.4 ML SYRINGE SQ SCH (17:40)
[2017-10-28 20:00] VITALS: BP 134/78; PULSE 105; RESP 18; TEMP 97.2; O2SAT 95
[2017-10-28] MEDS: HYDROmorphone HCL 4 MG TAB PO PRN (21:47)
[2017-10-28] MEDS: MIRTAZAPINE 15 MG TAB PO SCH (21:48)
[2017-10-28] MEDS: ALPRAZolam 0.25 MG TAB PO PRN (21:48)
[2017-10-29] VITALS: BP 138/81; PULSE 105; RESP 18; TEMP 97.6; O2SAT 95
[2017-10-29] MEDS: diphenhydrAMINE HCL 25 MG CAP PO PRN (01:01)
[2017-10-29] MEDS: MORPHINE SULFATE 2 MG/ML SYRINGE IV PUSH PRN ×3 (01:02→23:56)
[2017-10-29 08:00] VITALS: BP 122/79; PULSE 107; RESP 18; TEMP 97.3; O2SAT 95
[2017-10-29] MEDS: FERROUS SULFATE 325 MG (65 MG ELEMENTAL IRON) TAB PO SCH (09:00)
[2017-10-29] MEDS: ZINC OXIDE 40% OINT 60 GM TUBE TOPICAL SCH ×2 (09:00→23:55)
[2017-10-29] MEDS: LACTIC ACID (AMMONIUM LACTATE) 12% LOTION 225 GM BTL TOPICAL SCH ×2 (09:00→23:55)
[2017-10-29] MEDS: SODIUM HYPOCHLORITE 0.25% 500 ML BTL TOPICAL SCH (09:00)
[2017-10-29] MEDS: SODIUM CHLORIDE 0.9% FLUSH 10 ML FLUSH IVF SCH (09:00)
[2017-10-29] MEDS: CYCLOBENZAPRINE HCL 10 MG TAB PO SCH ×3 (11:11→18:18)
[2017-10-29] MEDS: DOCUSATE SODIUM 50 MG/SENNA 8.6 MG TAB PO SCH ×2 (11:11→23:53)
[2017-10-29] MEDS: GABAPENTIN 400 MG CAP PO SCH ×4 (11:11→23:52)
[2017-10-29] MEDS: LACTOBACILLUS ACIDOPHILUS TAB PO SCH ×2 (11:11→23:53)
[2017-10-29] MEDS: CYPROHEPTADINE HCL 4 MG TAB PO SCH ×2 (11:11→23:52)
[2017-10-29] MEDS: ESCITALOPRAM OXALATE 10 MG TAB PO SCH (11:11)
[2017-10-29] MEDS: METOPROLOL TARTRATE 25 MG TAB PO SCH ×2 (11:11→23:54)
[2017-10-29] MEDS: PYRIDOXINE HCL 50 MG TAB PO SCH (11:11)
[2017-10-29] MEDS: SODIUM CHLORIDE 0.9% FLUSH 10 ML FLUSH IV FLUSH SCH ×2 (11:12→23:55)
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
[2017-10-29 12:00] VITALS: BP 117/77; PULSE 107; RESP 16; TEMP 97.6; O2SAT 95
[2017-10-29 16:00] VITALS: BP 122/83; PULSE 101; RESP 16; TEMP 98.1; O2SAT 96
[2017-10-29] MEDS: ENOXAPARIN SODIUM 40 MG/0.4 ML SYRINGE SQ SCH (16:28)
[2017-10-29] MEDS: diphenhydrAMINE HCL ELIXIR 12.5 MG/5 ML CUP PO PRN (16:28)
[2017-10-29 22:30] VITALS: BP 143/87; PULSE 114; RESP 16; TEMP 97.6; O2SAT 96
[2017-10-29] MEDS: ALPRAZolam 0.25 MG TAB PO PRN (23:53)
[2017-10-29] MEDS: MIRTAZAPINE 15 MG TAB PO SCH (23:54)
[2017-10-30 01:05] VITALS: BP 144/86; PULSE 114; RESP 16; TEMP 97.8; O2SAT 96
[2017-10-30 08:00] VITALS: BP 132/74; PULSE 101; RESP 20; TEMP 98; O2SAT 94
[2017-10-30] MEDS: ZINC OXIDE 40% OINT 60 GM TUBE TOPICAL SCH ×2 (09:00→22:49)
[2017-10-30] MEDS: DOCUSATE SODIUM 50 MG/SENNA 8.6 MG TAB PO SCH ×2 (09:00→22:47)
[2017-10-30] MEDS: SODIUM HYPOCHLORITE 0.25% 500 ML BTL TOPICAL SCH (09:00)
[2017-10-30] MEDS: CYPROHEPTADINE HCL 4 MG TAB PO SCH ×2 (09:00→22:47)
[2017-10-30] MEDS: LACTOBACILLUS ACIDOPHILUS TAB PO SCH ×2 (09:00→22:49)
[2017-10-30] MEDS: PYRIDOXINE HCL 50 MG TAB PO SCH (09:00)
[2017-10-30] MEDS: LACTIC ACID (AMMONIUM LACTATE) 12% LOTION 225 GM BTL TOPICAL SCH ×2 (09:00→22:49)
[2017-10-30] MEDS: METOPROLOL TARTRATE 25 MG TAB PO SCH ×2 (09:42→22:47)
[2017-10-30] MEDS: CYCLOBENZAPRINE HCL 10 MG TAB PO SCH ×3 (09:42→18:30)
[2017-10-30] MEDS: GABAPENTIN 400 MG CAP PO SCH ×4 (09:42→22:47)
[2017-10-30] MEDS: ESCITALOPRAM OXALATE 10 MG TAB PO SCH (09:42)
[2017-10-30] MEDS: FERROUS SULFATE 325 MG (65 MG ELEMENTAL IRON) TAB PO SCH (09:42)
[2017-10-30] MEDS: SODIUM CHLORIDE 0.9% FLUSH 10 ML FLUSH IVF SCH (09:48)
[2017-10-30] MEDS: SODIUM CHLORIDE 0.9% FLUSH 10 ML FLUSH IV FLUSH SCH ×2 (09:48→22:49)
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
[2017-10-30 12:00] VITALS: BP 115/79; PULSE 101; RESP 20; TEMP 97.4; O2SAT 94
[2017-10-30 12:10] LABS: AUTOMATED NEUTROPHIL # 4.6 TH/MM3 (1.8-7.7); BASOPHIL % 0.5 % (0.0-2.0); EOSINOPHIL # 0.2 TH/MM3 (0-0.4); EOSINOPHIL % 2.3 % (0.0-4.0); HEMATOCRIT 39.3 % (39.0-51.0); HEMOGLOBIN 13.6 GM/DL (13.0-17.0); LYMPH % 38.2 % (9.0-44.0); LYMPHOCYTE # 3.3 TH/MM3 (1.0-4.8); MEAN CELL VOLUME 85.2 FL (80.0-100.0); MEAN CORPUSCULAR HEMOGLOBIN 29.6 PG (27.0-34.0); MEAN CORPUSCULAR HGB CONC 34.7 % (32.0-36.0); MEAN PLATELET VOLUME 6.9 FL (7.0-11.0); MONO % 5.3 % (0.0-8.0); MONOCYTE # 0.5 TH/MM3 (0-0.9); NEUT % 53.7 % (16.0-70.0); PLATELET COUNT 425 TH/MM3 (150-450); RED BLOOD COUNT 4.61 MIL/MM3 (4.50-5.90); RED CELL DISTRIBUTION WIDTH 16.8 % (11.6-17.2); WHITE BLOOD COUNT 8.5 TH/MM3 (4.0-11.0)
[2017-10-30 12:35] LABS: ALBUMIN 3.6 GM/DL (3.4-5.0); AST (GOT) 106 U/L (15-37); BICARBONATE 23.8 MEQ/L (21.0-32.0); BLOOD UREA NITROGEN 8 MG/DL (7-18); CALCIUM 8.5 MG/DL (8.5-10.1); CHLORIDE 104 MEQ/L (98-107); CREATININE 0.69 MG/DL (0.60-1.30); GLOMERULAR FILTRATION RATE 155 ML/MIN (>89); GLUCOSE,RANDOM 248 MG/DL (74-106); SODIUM (NA) 136 MEQ/L (136-145)
[2017-10-30 12:36] LABS: ALT (GPT) 169 U/L (12-78)
[2017-10-30 12:38] LABS: ALKALINE PHOSPHATASE 146 U/L (45-117); TOTAL BILIRUBIN ADULT 0.2 MG/DL (0.2-1.0); TOTAL PROTEIN 8.6 GM/DL (6.4-8.2)
[2017-10-30] MEDS: MORPHINE SULFATE 2 MG/ML SYRINGE IV PUSH PRN ×2 (14:10→16:10)
[2017-10-30 16:15] VITALS: BP 139/89; PULSE 97; RESP 17; TEMP 97.9; O2SAT 98
[2017-10-30] MEDS: ENOXAPARIN SODIUM 40 MG/0.4 ML SYRINGE SQ SCH (18:31)
[2017-10-30 20:00] VITALS: BP 154/84; PULSE 120; RESP 20; TEMP 98.2; O2SAT 94
[2017-10-30] MEDS: MIRTAZAPINE 15 MG TAB PO SCH (22:47)
[2017-10-30] MEDS: ALPRAZolam 0.25 MG TAB PO PRN (22:47)
[2017-10-30] MEDS: MORPHINE SULFATE 15 MG CONTROLLED RELEASE TAB PO SCH (22:48)
[2017-10-31] MEDS: MORPHINE SULFATE 2 MG/ML SYRINGE IV PUSH PRN ×3 (01:05→23:30)
[2017-10-31 08:00] VITALS: BP 115/65; PULSE 99; RESP 20; TEMP 98.3; O2SAT 95
[2017-10-31] MEDS: SODIUM HYPOCHLORITE 0.25% 500 ML BTL TOPICAL SCH (09:00)
[2017-10-31] MEDS: PYRIDOXINE HCL 50 MG TAB PO SCH (09:00)
[2017-10-31] MEDS: SODIUM CHLORIDE 0.9% FLUSH 10 ML FLUSH IV FLUSH SCH ×2 (09:00→23:33)
[2017-10-31] MEDS: ZINC OXIDE 40% OINT 60 GM TUBE TOPICAL SCH ×2 (09:00→23:33)
[2017-10-31] MEDS: LACTIC ACID (AMMONIUM LACTATE) 12% LOTION 225 GM BTL TOPICAL SCH ×2 (09:00→23:34)
[2017-10-31] MEDS: CYPROHEPTADINE HCL 4 MG TAB PO SCH ×2 (09:00→23:30)
[2017-10-31] MEDS: SODIUM CHLORIDE 0.9% FLUSH 10 ML FLUSH IVF SCH (09:00)
[2017-10-31] MEDS: SELENIUM SULFIDE 1% SHAMPOO 207 ML BOTTLE TOPICAL SCH (10:00)
[2017-10-31] MEDS: FERROUS SULFATE 325 MG (65 MG ELEMENTAL IRON) TAB PO SCH (10:24)
[2017-10-31] MEDS: LACTOBACILLUS ACIDOPHILUS TAB PO SCH ×2 (10:24→23:32)
[2017-10-31] MEDS: MORPHINE SULFATE 15 MG CONTROLLED RELEASE TAB PO SCH ×2 (10:25→23:31)
[2017-10-31] MEDS: ESCITALOPRAM OXALATE 10 MG TAB PO SCH (10:25)
[2017-10-31] MEDS: CYCLOBENZAPRINE HCL 10 MG TAB PO SCH ×3 (10:25→18:56)
[2017-10-31] MEDS: METOPROLOL TARTRATE 25 MG TAB PO SCH ×2 (10:25→23:32)
[2017-10-31] MEDS: DOCUSATE SODIUM 50 MG/SENNA 8.6 MG TAB PO SCH ×2 (10:25→23:32)
[2017-10-31] MEDS: GABAPENTIN 400 MG CAP PO SCH ×4 (10:25→23:32)
[2017-10-31 12:00] VITALS: BP 141/76; PULSE 91; RESP 20; TEMP 97.7; O2SAT 94
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
[2017-10-31 16:00] VITALS: BP 135/85; PULSE 101; RESP 20; TEMP 98.3; O2SAT 97
[2017-10-31] MEDS: ENOXAPARIN SODIUM 40 MG/0.4 ML SYRINGE SQ SCH (18:56)
[2017-10-31] MEDS: oxyCODONE/ACETAMINOPHEN 5 MG/325 MG TAB PO PRN (19:02)
[2017-10-31 20:00] VITALS: BP 157/83; PULSE 120; RESP 18; TEMP 97.9; O2SAT 95
[2017-10-31] MEDS: diphenhydrAMINE HCL ELIXIR 12.5 MG/5 ML CUP PO PRN (23:29)
[2017-10-31] MEDS: MIRTAZAPINE 15 MG TAB PO SCH (23:30)
[2017-10-31] MEDS: ALPRAZolam 0.25 MG TAB PO PRN (23:32)
[2017-11-01] VITALS: BP 134/86; PULSE 116; RESP 19; TEMP 97.1; O2SAT 95
[2017-11-01] MEDS: oxyCODONE/ACETAMINOPHEN 5 MG/325 MG TAB PO PRN ×3 (04:38→22:27)
[2017-11-01 08:00] VITALS: BP 137/85; PULSE 100; RESP 17; TEMP 97.3; O2SAT 95
[2017-11-01] MEDS: SODIUM HYPOCHLORITE 0.25% 500 ML BTL TOPICAL SCH (09:00)
[2017-11-01] MEDS: LACTIC ACID (AMMONIUM LACTATE) 12% LOTION 225 GM BTL TOPICAL SCH ×2 (09:00→21:00)
[2017-11-01] MEDS: ZINC OXIDE 40% OINT 60 GM TUBE TOPICAL SCH ×2 (09:00→21:00)
[2017-11-01] MEDS: SODIUM CHLORIDE 0.9% FLUSH 10 ML FLUSH IVF SCH (09:00)
[2017-11-01] MEDS: DOCUSATE SODIUM 50 MG/SENNA 8.6 MG TAB PO SCH ×2 (09:07→21:51)
[2017-11-01] MEDS: CYCLOBENZAPRINE HCL 10 MG TAB PO SCH ×3 (09:07→18:09)
[2017-11-01] MEDS: METOPROLOL TARTRATE 25 MG TAB PO SCH ×2 (09:07→21:52)
[2017-11-01] MEDS: GABAPENTIN 400 MG CAP PO SCH ×4 (09:07→21:51)
[2017-11-01] MEDS: ESCITALOPRAM OXALATE 10 MG TAB PO SCH (09:08)
[2017-11-01] MEDS: FERROUS SULFATE 325 MG (65 MG ELEMENTAL IRON) TAB PO SCH (09:08)
[2017-11-01] MEDS: SODIUM CHLORIDE 0.9% FLUSH 10 ML FLUSH IV FLUSH SCH ×2 (09:08→21:52)
[2017-11-01] MEDS: MORPHINE SULFATE 15 MG CONTROLLED RELEASE TAB PO SCH ×2 (09:08→21:51)
[2017-11-01] MEDS: CYPROHEPTADINE HCL 4 MG TAB PO SCH ×2 (09:08→21:52)
[2017-11-01] MEDS: LACTOBACILLUS ACIDOPHILUS TAB PO SCH ×2 (09:08→21:00)
[2017-11-01] MEDS: PYRIDOXINE HCL 50 MG TAB PO SCH (11:07)
[2017-11-01 12:00] VITALS: BP 136/82; PULSE 92; RESP 18; TEMP 97.4; O2SAT 95
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
[2017-11-01] MEDS: MORPHINE SULFATE 2 MG/ML SYRINGE IV PUSH PRN ×2 (15:32→21:53)
[2017-11-01] MEDS: diphenhydrAMINE HCL ELIXIR 12.5 MG/5 ML CUP PO PRN ×2 (15:33→22:27)
[2017-11-01 16:00] VITALS: BP 136/80; PULSE 93; RESP 18; TEMP 97.4; O2SAT 95
[2017-11-01] MEDS: ENOXAPARIN SODIUM 40 MG/0.4 ML SYRINGE SQ SCH (17:00)
[2017-11-01 20:00] VITALS: BP 140/65; PULSE 109; RESP 17; TEMP 98.6; O2SAT 97
[2017-11-01] MEDS: MIRTAZAPINE 15 MG TAB PO SCH (21:52)
[2017-11-01] MEDS: ALPRAZolam 0.25 MG TAB PO PRN (22:27)
[2017-11-02 08:00] VITALS: BP 148/98; PULSE 98; RESP 18; TEMP 97.8; O2SAT 96
[2017-11-02] MEDS: DOCUSATE SODIUM 50 MG/SENNA 8.6 MG TAB PO SCH ×2 (09:00→12:50)
[2017-11-02] MEDS: PYRIDOXINE HCL 50 MG TAB PO SCH (09:00)
[2017-11-02] MEDS: LACTIC ACID (AMMONIUM LACTATE) 12% LOTION 225 GM BTL TOPICAL SCH ×2 (09:00→21:21)
[2017-11-02] MEDS: SODIUM CHLORIDE 0.9% FLUSH 10 ML FLUSH IVF SCH (09:00)
[2017-11-02] MEDS: SODIUM HYPOCHLORITE 0.25% 500 ML BTL TOPICAL SCH (09:00)
[2017-11-02] MEDS: ZINC OXIDE 40% OINT 60 GM TUBE TOPICAL SCH ×2 (09:00→21:20)
[2017-11-02] MEDS: SODIUM CHLORIDE 0.9% FLUSH 10 ML FLUSH IV FLUSH SCH ×2 (09:13→21:15)
[2017-11-02] MEDS: MORPHINE SULFATE 15 MG CONTROLLED RELEASE TAB PO SCH ×2 (09:13→21:14)
[2017-11-02] MEDS: GABAPENTIN 400 MG CAP PO SCH ×4 (09:13→21:13)
[2017-11-02] MEDS: CYPROHEPTADINE HCL 4 MG TAB PO SCH ×2 (09:13→21:15)
[2017-11-02] MEDS: ESCITALOPRAM OXALATE 10 MG TAB PO SCH (09:13)
[2017-11-02] MEDS: LACTOBACILLUS ACIDOPHILUS TAB PO SCH ×2 (09:14→21:13)
[2017-11-02] MEDS: CYCLOBENZAPRINE HCL 10 MG TAB PO SCH ×3 (09:14→17:38)
[2017-11-02] MEDS: METOPROLOL TARTRATE 25 MG TAB PO SCH ×2 (09:14→21:13)
[2017-11-02] MEDS: FERROUS SULFATE 325 MG (65 MG ELEMENTAL IRON) TAB PO SCH (09:14)
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
[2017-11-02 12:00] VITALS: BP 129/91; PULSE 98; RESP 18; TEMP 98.4; O2SAT 95
[2017-11-02] MEDS: diphenhydrAMINE HCL ELIXIR 12.5 MG/5 ML CUP PO PRN (15:32)
[2017-11-02] MEDS: ENOXAPARIN SODIUM 40 MG/0.4 ML SYRINGE SQ SCH (15:32)
[2017-11-02 16:00] VITALS: BP 148/90; PULSE 101; RESP 20; TEMP 97.5; O2SAT 100
[2017-11-02 20:00] VITALS: BP 150/87; PULSE 107; RESP 18; TEMP 97.9; O2SAT 96
[2017-11-02] MEDS: MIRTAZAPINE 15 MG TAB PO SCH (21:13)
[2017-11-02] MEDS: ALPRAZolam 0.25 MG TAB PO PRN (21:19)
[2017-11-03] MEDS: MORPHINE SULFATE 2 MG/ML SYRINGE IV PUSH PRN ×2 (00:07→12:44)
[2017-11-03 01:10] VITALS: BP 139/94; PULSE 102; RESP 20; TEMP 97.7; O2SAT 95
[2017-11-03 08:16] VITALS: BP 150/78; PULSE 112; RESP 19; TEMP 97.7; O2SAT 96
[2017-11-03] MEDS: SODIUM CHLORIDE 0.9% FLUSH 10 ML FLUSH IVF SCH (09:00)
[2017-11-03] MEDS: MORPHINE SULFATE 15 MG CONTROLLED RELEASE TAB PO SCH ×2 (09:00→21:37)
[2017-11-03] MEDS: LACTOBACILLUS ACIDOPHILUS TAB PO SCH ×2 (09:00→21:38)
[2017-11-03] MEDS: ZINC OXIDE 40% OINT 60 GM TUBE TOPICAL SCH ×2 (09:00→21:42)
[2017-11-03] MEDS: SODIUM CHLORIDE 0.9% FLUSH 10 ML FLUSH IV FLUSH SCH ×2 (09:00→21:36)
[2017-11-03] MEDS: LACTIC ACID (AMMONIUM LACTATE) 12% LOTION 225 GM BTL TOPICAL SCH ×2 (09:00→21:42)
[2017-11-03] MEDS: CYPROHEPTADINE HCL 4 MG TAB PO SCH ×2 (09:00→21:38)
[2017-11-03] MEDS: SODIUM HYPOCHLORITE 0.25% 500 ML BTL TOPICAL SCH (09:00)
[2017-11-03] MEDS: METOPROLOL TARTRATE 25 MG TAB PO SCH ×2 (10:48→21:38)
[2017-11-03] MEDS: CYCLOBENZAPRINE HCL 10 MG TAB PO SCH ×3 (10:48→18:13)
[2017-11-03] MEDS: DOCUSATE SODIUM 50 MG/SENNA 8.6 MG TAB PO SCH ×2 (10:48→21:38)
[2017-11-03] MEDS: PYRIDOXINE HCL 50 MG TAB PO SCH (10:48)
[2017-11-03] MEDS: GABAPENTIN 400 MG CAP PO SCH ×4 (10:49→21:38)
[2017-11-03] MEDS: ESCITALOPRAM OXALATE 10 MG TAB PO SCH (10:49)
[2017-11-03] MEDS: diphenhydrAMINE HCL ELIXIR 12.5 MG/5 ML CUP PO PRN (10:49)
[2017-11-03] MEDS: FERROUS SULFATE 325 MG (65 MG ELEMENTAL IRON) TAB PO SCH (10:49)
[2017-11-03 12:16] VITALS: BP 152/76; PULSE 102; RESP 19; TEMP 98.1; O2SAT 96
[2017-11-03 16:16] VITALS: BP 148/78; PULSE 100; RESP 19; TEMP 98.2; O2SAT 96
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
[2017-11-03] MEDS: ENOXAPARIN SODIUM 40 MG/0.4 ML SYRINGE SQ SCH (18:14)
[2017-11-03 20:00] VITALS: BP 137/94; PULSE 102; RESP 18; TEMP 97.8; O2SAT 98
[2017-11-03] MEDS: ALPRAZolam 0.25 MG TAB PO PRN (21:38)
[2017-11-03] MEDS: MIRTAZAPINE 15 MG TAB PO SCH (21:38)
[2017-11-04] VITALS: BP 151/88; PULSE 106; RESP 20; TEMP 97.8; O2SAT 96
[2017-11-04] MEDS: diphenhydrAMINE HCL ELIXIR 12.5 MG/5 ML CUP PO PRN (00:24)
[2017-11-04] MEDS: MORPHINE SULFATE 2 MG/ML SYRINGE IV PUSH PRN ×2 (00:24→17:33)
[2017-11-04 08:00] VITALS: BP 146/72; PULSE 106; RESP 20; TEMP 96.6; O2SAT 95
[2017-11-04] MEDS: LACTOBACILLUS ACIDOPHILUS TAB PO SCH ×2 (09:00→21:06)
[2017-11-04] MEDS: LACTIC ACID (AMMONIUM LACTATE) 12% LOTION 225 GM BTL TOPICAL SCH ×2 (09:00→21:18)
[2017-11-04] MEDS: SODIUM CHLORIDE 0.9% FLUSH 10 ML FLUSH IVF SCH (09:00)
[2017-11-04] MEDS: DOCUSATE SODIUM 50 MG/SENNA 8.6 MG TAB PO SCH ×2 (09:00→21:07)
[2017-11-04] MEDS: ZINC OXIDE 40% OINT 60 GM TUBE TOPICAL SCH ×2 (09:00→21:19)
[2017-11-04] MEDS: SODIUM CHLORIDE 0.9% FLUSH 10 ML FLUSH IV FLUSH SCH ×2 (09:00→21:06)
[2017-11-04] MEDS: SODIUM HYPOCHLORITE 0.25% 500 ML BTL TOPICAL SCH (09:00)
[2017-11-04] MEDS: GABAPENTIN 400 MG CAP PO SCH ×4 (09:45→21:07)
[2017-11-04] MEDS: ESCITALOPRAM OXALATE 10 MG TAB PO SCH (09:45)
[2017-11-04] MEDS: CYCLOBENZAPRINE HCL 10 MG TAB PO SCH ×3 (09:54→17:57)
[2017-11-04] MEDS: FERROUS SULFATE 325 MG (65 MG ELEMENTAL IRON) TAB PO SCH (09:55)
[2017-11-04] MEDS: METOPROLOL TARTRATE 25 MG TAB PO SCH ×2 (09:55→21:07)
[2017-11-04] MEDS: MORPHINE SULFATE 15 MG CONTROLLED RELEASE TAB PO SCH ×2 (09:55→21:07)
[2017-11-04] MEDS: CYPROHEPTADINE HCL 4 MG TAB PO SCH ×2 (09:55→21:06)
[2017-11-04] MEDS: PYRIDOXINE HCL 50 MG TAB PO SCH (09:55)
[2017-11-04 12:00] VITALS: BP 126/73; PULSE 103; RESP 20; TEMP 98.2; O2SAT 95
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
[2017-11-04] MEDS: ENOXAPARIN SODIUM 40 MG/0.4 ML SYRINGE SQ SCH (17:57)
[2017-11-04 20:00] VITALS: BP 158/90; PULSE 100; RESP 18; TEMP 97.9; O2SAT 96
[2017-11-04] MEDS: MIRTAZAPINE 15 MG TAB PO SCH (21:06)
[2017-11-04] MEDS: ALPRAZolam 0.25 MG TAB PO PRN (21:15)
[2017-11-05] MEDS: MORPHINE SULFATE 2 MG/ML SYRINGE IV PUSH PRN ×3 (01:22→23:41)
[2017-11-05] MEDS: diphenhydrAMINE HCL ELIXIR 12.5 MG/5 ML CUP PO PRN ×2 (01:22→23:42)
[2017-11-05 08:05] VITALS: BP 152/76; PULSE 104; RESP 18; TEMP 98.1; O2SAT 94
[2017-11-05] MEDS: ZINC OXIDE 40% OINT 60 GM TUBE TOPICAL SCH ×2 (09:00→21:00)
[2017-11-05] MEDS: SODIUM HYPOCHLORITE 0.25% 500 ML BTL TOPICAL SCH (09:00)
[2017-11-05] MEDS: SODIUM CHLORIDE 0.9% FLUSH 10 ML FLUSH IV FLUSH SCH ×2 (09:00→23:43)
[2017-11-05] MEDS: SODIUM CHLORIDE 0.9% FLUSH 10 ML FLUSH IVF SCH (09:00)
[2017-11-05] MEDS: LACTIC ACID (AMMONIUM LACTATE) 12% LOTION 225 GM BTL TOPICAL SCH ×2 (09:00→21:00)
[2017-11-05] MEDS: ESCITALOPRAM OXALATE 10 MG TAB PO SCH (09:00)
[2017-11-05] MEDS: LACTOBACILLUS ACIDOPHILUS TAB PO SCH ×2 (10:29→23:42)
[2017-11-05] MEDS: GABAPENTIN 400 MG CAP PO SCH ×4 (10:29→23:42)
[2017-11-05] MEDS: DOCUSATE SODIUM 50 MG/SENNA 8.6 MG TAB PO SCH ×2 (10:29→23:42)
[2017-11-05] MEDS: CYCLOBENZAPRINE HCL 10 MG TAB PO SCH ×3 (10:29→17:45)
[2017-11-05] MEDS: FERROUS SULFATE 325 MG (65 MG ELEMENTAL IRON) TAB PO SCH (10:29)
[2017-11-05] MEDS: MORPHINE SULFATE 15 MG CONTROLLED RELEASE TAB PO SCH ×2 (10:29→23:42)
[2017-11-05] MEDS: PYRIDOXINE HCL 50 MG TAB PO SCH (10:30)
[2017-11-05] MEDS: CYPROHEPTADINE HCL 4 MG TAB PO SCH ×2 (10:30→23:43)
[2017-11-05] MEDS: METOPROLOL TARTRATE 25 MG TAB PO SCH ×2 (10:30→23:42)
[2017-11-05 12:08] VITALS: BP 129/79; PULSE 105; RESP 18; TEMP 97.8; O2SAT 95
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
[2017-11-05 16:05] VITALS: BP 140/83; PULSE 101; RESP 17; TEMP 97.9; O2SAT 97
[2017-11-05] MEDS: ENOXAPARIN SODIUM 40 MG/0.4 ML SYRINGE SQ SCH (17:46)
[2017-11-05 20:00] VITALS: BP 139/81; PULSE 101; RESP 20; TEMP 98.6; O2SAT 97
[2017-11-05] MEDS: SODIUM CHLORIDE 0.9% FLUSH 10 ML FLUSH IV FLUSH PRN (23:43)
[2017-11-05] MEDS: MIRTAZAPINE 15 MG TAB PO SCH (23:43)
[2017-11-05] MEDS: ALPRAZolam 0.25 MG TAB PO PRN (23:43)
[2017-11-06] MEDS: oxyCODONE/ACETAMINOPHEN 5 MG/325 MG TAB PO PRN ×2 (04:12→18:31)
[2017-11-06 08:00] VITALS: BP 127/96; PULSE 101; RESP 16; TEMP 97.4; O2SAT 94
[2017-11-06] MEDS: SODIUM CHLORIDE 0.9% FLUSH 10 ML FLUSH IVF SCH (09:00)
[2017-11-06] MEDS: SODIUM CHLORIDE 0.9% FLUSH 10 ML FLUSH IV FLUSH SCH ×2 (09:16→20:32)
[2017-11-06] MEDS: CYPROHEPTADINE HCL 4 MG TAB PO SCH ×2 (09:17→20:31)
[2017-11-06] MEDS: CYCLOBENZAPRINE HCL 10 MG TAB PO SCH ×3 (09:17→18:30)
[2017-11-06] MEDS: LACTIC ACID (AMMONIUM LACTATE) 12% LOTION 225 GM BTL TOPICAL SCH ×2 (09:17→20:32)
[2017-11-06] MEDS: GABAPENTIN 400 MG CAP PO SCH ×4 (09:17→20:31)
[2017-11-06] MEDS: ZINC OXIDE 40% OINT 60 GM TUBE TOPICAL SCH ×2 (09:17→20:32)
[2017-11-06] MEDS: SODIUM HYPOCHLORITE 0.25% 500 ML BTL TOPICAL SCH (09:17)
[2017-11-06] MEDS: METOPROLOL TARTRATE 25 MG TAB PO SCH ×2 (09:17→20:31)
[2017-11-06] MEDS: ESCITALOPRAM OXALATE 10 MG TAB PO SCH (09:17)
[2017-11-06] MEDS: DOCUSATE SODIUM 50 MG/SENNA 8.6 MG TAB PO SCH ×2 (09:18→20:31)
[2017-11-06] MEDS: PYRIDOXINE HCL 50 MG TAB PO SCH (09:18)
[2017-11-06] MEDS: FERROUS SULFATE 325 MG (65 MG ELEMENTAL IRON) TAB PO SCH (09:18)
[2017-11-06] MEDS: LACTOBACILLUS ACIDOPHILUS TAB PO SCH ×2 (09:18→20:31)
[2017-11-06] MEDS: MORPHINE SULFATE 15 MG CONTROLLED RELEASE TAB PO SCH ×2 (09:22→20:32)
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
[2017-11-06 12:00] VITALS: BP 151/82; PULSE 107; RESP 18; TEMP 97.8; O2SAT 95
[2017-11-06] MEDS: MORPHINE SULFATE 2 MG/ML SYRINGE IV PUSH PRN ×2 (12:58→22:28)
[2017-11-06] MEDS: diphenhydrAMINE HCL ELIXIR 12.5 MG/5 ML CUP PO PRN (12:58)
[2017-11-06 16:00] VITALS: BP 141/89; PULSE 112; RESP 17; TEMP 97.3; O2SAT 95
[2017-11-06] MEDS: ENOXAPARIN SODIUM 40 MG/0.4 ML SYRINGE SQ SCH (18:31)
[2017-11-06 20:00] VITALS: BP 148/79; PULSE 115; RESP 20; TEMP 97.8; O2SAT 96
[2017-11-06] MEDS: ALPRAZolam 0.25 MG TAB PO PRN (20:31)
[2017-11-06] MEDS: MIRTAZAPINE 15 MG TAB PO SCH (20:31)
[2017-11-07] VITALS: BP 146/89; PULSE 104; RESP 20; TEMP 98.1; O2SAT 95
[2017-11-07] MEDS: oxyCODONE/ACETAMINOPHEN 5 MG/325 MG TAB PO PRN (00:11)
[2017-11-07 08:00] VITALS: BP 148/85; PULSE 101; RESP 17; TEMP 97.4; O2SAT 93
[2017-11-07] MEDS: SODIUM CHLORIDE 0.9% FLUSH 10 ML FLUSH IVF SCH (09:00)
[2017-11-07] MEDS: SELENIUM SULFIDE 1% SHAMPOO 207 ML BOTTLE TOPICAL SCH (10:00)
[2017-11-07] MEDS: SODIUM CHLORIDE 0.9% FLUSH 10 ML FLUSH IV FLUSH SCH ×2 (10:10→22:18)
[2017-11-07] MEDS: GABAPENTIN 400 MG CAP PO SCH ×4 (10:12→22:17)
[2017-11-07] MEDS: ESCITALOPRAM OXALATE 10 MG TAB PO SCH (10:12)
[2017-11-07] MEDS: CYPROHEPTADINE HCL 4 MG TAB PO SCH ×2 (10:12→22:16)
[2017-11-07] MEDS: LACTOBACILLUS ACIDOPHILUS TAB PO SCH ×2 (10:12→21:00)
[2017-11-07] MEDS: METOPROLOL TARTRATE 25 MG TAB PO SCH ×2 (10:12→22:17)
[2017-11-07] MEDS: CYCLOBENZAPRINE HCL 10 MG TAB PO SCH ×3 (10:12→18:00)
[2017-11-07] MEDS: DOCUSATE SODIUM 50 MG/SENNA 8.6 MG TAB PO SCH ×2 (10:12→22:16)
[2017-11-07] MEDS: FERROUS SULFATE 325 MG (65 MG ELEMENTAL IRON) TAB PO SCH (10:12)
[2017-11-07] MEDS: PYRIDOXINE HCL 50 MG TAB PO SCH (10:12)
[2017-11-07] MEDS: LACTIC ACID (AMMONIUM LACTATE) 12% LOTION 225 GM BTL TOPICAL SCH ×2 (10:13→22:19)
[2017-11-07] MEDS: SODIUM HYPOCHLORITE 0.25% 500 ML BTL TOPICAL SCH (10:13)
[2017-11-07] MEDS: ZINC OXIDE 40% OINT 60 GM TUBE TOPICAL SCH ×2 (10:13→22:19)
[2017-11-07] MEDS: MORPHINE SULFATE 15 MG CONTROLLED RELEASE TAB PO SCH ×2 (10:17→22:16)
[2017-11-07 12:00] VITALS: BP 152/84; PULSE 98; RESP 18; TEMP 97.2; O2SAT 95
[2017-11-07] MEDS: MORPHINE SULFATE 2 MG/ML SYRINGE IV PUSH PRN ×2 (13:15→22:21)
[2017-11-07] MEDS: diphenhydrAMINE HCL ELIXIR 12.5 MG/5 ML CUP PO PRN (13:15)
[2017-11-07 16:00] VITALS: BP 153/95; PULSE 93; RESP 17; TEMP 97.5; O2SAT 94
[2017-11-07] MEDS: ENOXAPARIN SODIUM 40 MG/0.4 ML SYRINGE SQ SCH (17:00)
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
[2017-11-07 21:49] VITALS: BP 142/83; PULSE 121; TEMP 98.2; O2SAT 98
[2017-11-07] MEDS: MIRTAZAPINE 15 MG TAB PO SCH (22:15)
[2017-11-07] MEDS: ALPRAZolam 0.25 MG TAB PO PRN (22:19)
[2017-11-08] VITALS: BP 143/83; PULSE 108; RESP 18; TEMP 98.2; O2SAT 96
[2017-11-08 08:05] VITALS: BP 155/87; PULSE 108; RESP 18; TEMP 97.4; O2SAT 96
[2017-11-08] MEDS: SODIUM CHLORIDE 0.9% FLUSH 10 ML FLUSH IVF SCH (09:00)
[2017-11-08] MEDS: FERROUS SULFATE 325 MG (65 MG ELEMENTAL IRON) TAB PO SCH (09:34)
[2017-11-08] MEDS: SODIUM CHLORIDE 0.9% FLUSH 10 ML FLUSH IV FLUSH SCH ×2 (09:34→22:05)
[2017-11-08] MEDS: LACTOBACILLUS ACIDOPHILUS TAB PO SCH ×2 (09:35→21:00)
[2017-11-08] MEDS: PYRIDOXINE HCL 50 MG TAB PO SCH (09:35)
[2017-11-08] MEDS: MORPHINE SULFATE 15 MG CONTROLLED RELEASE TAB PO SCH ×2 (09:35→22:06)
[2017-11-08] MEDS: CYCLOBENZAPRINE HCL 10 MG TAB PO SCH ×3 (09:35→16:55)
[2017-11-08] MEDS: ESCITALOPRAM OXALATE 10 MG TAB PO SCH (09:36)
[2017-11-08] MEDS: GABAPENTIN 400 MG CAP PO SCH ×4 (09:36→22:06)
[2017-11-08] MEDS: CYPROHEPTADINE HCL 4 MG TAB PO SCH ×2 (09:36→22:05)
[2017-11-08] MEDS: DOCUSATE SODIUM 50 MG/SENNA 8.6 MG TAB PO SCH ×2 (09:36→22:05)
[2017-11-08] MEDS: METOPROLOL TARTRATE 25 MG TAB PO SCH ×2 (09:36→22:06)
[2017-11-08] MEDS: ZINC OXIDE 40% OINT 60 GM TUBE TOPICAL SCH ×2 (09:39→22:07)
[2017-11-08] MEDS: LACTIC ACID (AMMONIUM LACTATE) 12% LOTION 225 GM BTL TOPICAL SCH ×2 (09:40→22:07)
[2017-11-08] MEDS: SODIUM HYPOCHLORITE 0.25% 500 ML BTL TOPICAL SCH (09:40)
[2017-11-08 12:05] VITALS: BP 138/96; PULSE 102; RESP 18; TEMP 97.7; O2SAT 98
[2017-11-08 16:05] VITALS: BP 136/89; PULSE 99; RESP 17; TEMP 97.4; O2SAT 96
[2017-11-08] MEDS: ENOXAPARIN SODIUM 40 MG/0.4 ML SYRINGE SQ SCH (16:51)
[2017-11-08 21:59] VITALS: BP 142/84; PULSE 117; RESP 16; TEMP 97.3; O2SAT 96
[2017-11-08] MEDS: ALPRAZolam 0.25 MG TAB PO PRN (22:05)
[2017-11-08] MEDS: MIRTAZAPINE 15 MG TAB PO SCH (22:06)
[2017-11-08] MEDS: MORPHINE SULFATE 2 MG/ML SYRINGE IV PUSH PRN (22:08)
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
[2017-11-09 00:03] VITALS: BP 142/91; PULSE 116; RESP 16; TEMP 98.3; O2SAT 94
[2017-11-09] MEDS: oxyCODONE/ACETAMINOPHEN 5 MG/325 MG TAB PO PRN (00:54)
[2017-11-09 07:25] VITALS: BP 125/72; PULSE 101; RESP 20; TEMP 97.2; O2SAT 95
[2017-11-09] MEDS: SODIUM CHLORIDE 0.9% FLUSH 10 ML FLUSH IVF SCH (09:00)
[2017-11-09] MEDS: LACTOBACILLUS ACIDOPHILUS TAB PO SCH ×2 (09:00→21:00)
[2017-11-09] MEDS: METOPROLOL TARTRATE 25 MG TAB PO SCH ×2 (09:21→23:20)
[2017-11-09] MEDS: ESCITALOPRAM OXALATE 10 MG TAB PO SCH (09:21)
[2017-11-09] MEDS: GABAPENTIN 400 MG CAP PO SCH ×4 (09:21→23:19)
[2017-11-09] MEDS: CYPROHEPTADINE HCL 4 MG TAB PO SCH ×2 (09:21→23:21)
[2017-11-09] MEDS: FERROUS SULFATE 325 MG (65 MG ELEMENTAL IRON) TAB PO SCH (09:22)
[2017-11-09] MEDS: PYRIDOXINE HCL 50 MG TAB PO SCH (09:22)
[2017-11-09] MEDS: CYCLOBENZAPRINE HCL 10 MG TAB PO SCH ×3 (09:22→16:59)
[2017-11-09] MEDS: MORPHINE SULFATE 15 MG CONTROLLED RELEASE TAB PO SCH ×2 (09:23→23:20)
[2017-11-09] MEDS: DOCUSATE SODIUM 50 MG/SENNA 8.6 MG TAB PO SCH ×2 (09:23→23:21)
[2017-11-09] MEDS: SODIUM CHLORIDE 0.9% FLUSH 10 ML FLUSH IV FLUSH SCH ×2 (09:26→23:22)
[2017-11-09] MEDS: LACTIC ACID (AMMONIUM LACTATE) 12% LOTION 225 GM BTL TOPICAL SCH ×2 (09:27→23:26)
[2017-11-09] MEDS: SODIUM HYPOCHLORITE 0.25% 500 ML BTL TOPICAL SCH (09:27)
[2017-11-09] MEDS: ZINC OXIDE 40% OINT 60 GM TUBE TOPICAL SCH ×2 (09:27→23:29)
[2017-11-09 11:30] VITALS: BP 142/64; PULSE 111; RESP 18; TEMP 97.6; O2SAT 96
[2017-11-09] MEDS: MORPHINE SULFATE 2 MG/ML SYRINGE IV PUSH PRN (12:51)
[2017-11-09 15:52] VITALS: BP 157/87; PULSE 105; RESP 18; TEMP 97.7; O2SAT 95
[2017-11-09] MEDS: ENOXAPARIN SODIUM 40 MG/0.4 ML SYRINGE SQ SCH (16:58)
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
[2017-11-09 22:17] VITALS: BP 155/91; PULSE 115; RESP 17; TEMP 98.1; O2SAT 96
[2017-11-09] MEDS: MIRTAZAPINE 15 MG TAB PO SCH (23:20)
[2017-11-09] MEDS: ALPRAZolam 0.25 MG TAB PO PRN (23:20)
[2017-11-09] MEDS: CEFUROXIME AXETIL 500 MG TAB PO SCH (23:21)
[2017-11-10 00:10] VITALS: BP 155/88; PULSE 107; RESP 16; TEMP 97.3; O2SAT 96
[2017-11-10] MEDS: diphenhydrAMINE HCL ELIXIR 12.5 MG/5 ML CUP PO PRN (01:11)
[2017-11-10] MEDS: MORPHINE SULFATE 2 MG/ML SYRINGE IV PUSH PRN ×2 (01:11→14:20)
[2017-11-10] MEDS: SODIUM CHLORIDE 0.9% FLUSH 10 ML FLUSH IVF SCH (07:19)
[2017-11-10 08:00] VITALS: BP 142/98; PULSE 98; RESP 20; TEMP 97.6; O2SAT 96
[2017-11-10] MEDS: FERROUS SULFATE 325 MG (65 MG ELEMENTAL IRON) TAB PO SCH (08:57)
[2017-11-10] MEDS: DOCUSATE SODIUM 50 MG/SENNA 8.6 MG TAB PO SCH ×2 (08:57→21:40)
[2017-11-10] MEDS: GABAPENTIN 400 MG CAP PO SCH ×4 (08:57→21:40)
[2017-11-10] MEDS: CYCLOBENZAPRINE HCL 10 MG TAB PO SCH ×3 (08:57→17:02)
[2017-11-10] MEDS: CEFUROXIME AXETIL 500 MG TAB PO SCH ×2 (08:57→21:40)
[2017-11-10] MEDS: METOPROLOL TARTRATE 25 MG TAB PO SCH (08:57)
[2017-11-10] MEDS: PYRIDOXINE HCL 50 MG TAB PO SCH (08:57)
[2017-11-10] MEDS: CYPROHEPTADINE HCL 4 MG TAB PO SCH ×2 (08:57→21:40)
[2017-11-10] MEDS: ESCITALOPRAM OXALATE 10 MG TAB PO SCH (08:58)
[2017-11-10] MEDS: MORPHINE SULFATE 15 MG CONTROLLED RELEASE TAB PO SCH ×2 (08:58→21:41)
[2017-11-10] MEDS: LACTIC ACID (AMMONIUM LACTATE) 12% LOTION 225 GM BTL TOPICAL SCH ×2 (09:00→21:00)
[2017-11-10] MEDS: SODIUM HYPOCHLORITE 0.25% 500 ML BTL TOPICAL SCH (09:00)
[2017-11-10] MEDS: SODIUM CHLORIDE 0.9% FLUSH 10 ML FLUSH IV FLUSH SCH ×2 (09:00→21:00)
[2017-11-10] MEDS: LACTOBACILLUS ACIDOPHILUS TAB PO SCH ×2 (09:00→21:40)
[2017-11-10] MEDS: ZINC OXIDE 40% OINT 60 GM TUBE TOPICAL SCH ×2 (09:00→21:00)
[2017-11-10 12:00] VITALS: BP 137/91; PULSE 105; RESP 20; TEMP 97.5; O2SAT 95
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
[2017-11-10 16:00] VITALS: BP 148/93; PULSE 95; RESP 20; TEMP 97.8; O2SAT 97
[2017-11-10] MEDS: ENOXAPARIN SODIUM 40 MG/0.4 ML SYRINGE SQ SCH (17:03)
[2017-11-10 20:00] VITALS: BP 173/91; PULSE 112; RESP 18; TEMP 97.8; O2SAT 95
[2017-11-10] MEDS: METOPROLOL TARTRATE 50 MG TAB PO SCH (21:40)
[2017-11-10] MEDS: MIRTAZAPINE 15 MG TAB PO SCH (21:40)
[2017-11-10] MEDS: ALPRAZolam 0.25 MG TAB PO PRN (23:15)
[2017-11-11] VITALS: BP 134/89; PULSE 107; RESP 18; TEMP 97.2; O2SAT 97
[2017-11-11] MEDS: SODIUM CHLORIDE 0.9% FLUSH 10 ML FLUSH IVF SCH (07:15)
[2017-11-11 08:00] VITALS: BP 133/85; PULSE 97; RESP 20; TEMP 97.8; O2SAT 95
[2017-11-11] MEDS: SODIUM CHLORIDE 0.9% FLUSH 10 ML FLUSH IV FLUSH SCH ×2 (08:36→21:47)
[2017-11-11] MEDS: MORPHINE SULFATE 15 MG CONTROLLED RELEASE TAB PO SCH ×2 (08:38→21:46)
[2017-11-11] MEDS: DOCUSATE SODIUM 50 MG/SENNA 8.6 MG TAB PO SCH ×2 (08:38→21:46)
[2017-11-11] MEDS: METOPROLOL TARTRATE 50 MG TAB PO SCH ×3 (08:38→21:46)
[2017-11-11] MEDS: ESCITALOPRAM OXALATE 10 MG TAB PO SCH (08:38)
[2017-11-11] MEDS: CEFUROXIME AXETIL 500 MG TAB PO SCH ×2 (08:38→21:46)
[2017-11-11] MEDS: CYCLOBENZAPRINE HCL 10 MG TAB PO SCH ×3 (08:38→17:03)
[2017-11-11] MEDS: FERROUS SULFATE 325 MG (65 MG ELEMENTAL IRON) TAB PO SCH (08:38)
[2017-11-11] MEDS: PYRIDOXINE HCL 50 MG TAB PO SCH (08:38)
[2017-11-11] MEDS: CYPROHEPTADINE HCL 4 MG TAB PO SCH ×2 (08:39→21:46)
[2017-11-11] MEDS: LACTOBACILLUS ACIDOPHILUS TAB PO SCH ×2 (08:39→21:46)
[2017-11-11] MEDS: GABAPENTIN 400 MG CAP PO SCH ×4 (08:39→21:46)
[2017-11-11] MEDS: SODIUM HYPOCHLORITE 0.25% 500 ML BTL TOPICAL SCH (08:41)
[2017-11-11] MEDS: ZINC OXIDE 40% OINT 60 GM TUBE TOPICAL SCH ×2 (08:41→21:47)
[2017-11-11] MEDS: LACTIC ACID (AMMONIUM LACTATE) 12% LOTION 225 GM BTL TOPICAL SCH ×2 (08:41→21:47)
[2017-11-11 12:00] VITALS: BP 142/92; PULSE 99; RESP 20; TEMP 98.1; O2SAT 96
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
[2017-11-11] MEDS: MORPHINE SULFATE 2 MG/ML SYRINGE IV PUSH PRN ×2 (14:28→21:55)
[2017-11-11 16:00] VITALS: BP 148/89; PULSE 98; RESP 20; TEMP 97.6; O2SAT 95
[2017-11-11] MEDS: ENOXAPARIN SODIUM 40 MG/0.4 ML SYRINGE SQ SCH (17:03)
[2017-11-11 20:00] VITALS: BP_SYST 119; BP_SYST 127; BP_DIAS 78; BP_DIAS 79; PULSE 105; PULSE 99; RESP 18; RESP 19; TEMP 97.4; TEMP 97.5; O2SAT 94; O2SAT 96
[2017-11-11] MEDS: MIRTAZAPINE 15 MG TAB PO SCH (21:46)
[2017-11-11] MEDS: ALPRAZolam 0.25 MG TAB PO PRN (21:55)
[2017-11-12] VITALS: BP 126/72; PULSE 105; RESP 18; TEMP 97.2; O2SAT 95
[2017-11-12] MEDS: METOPROLOL TARTRATE 50 MG TAB PO SCH ×3 (06:17→22:09)
[2017-11-12 08:35] VITALS: BP 134/73; PULSE 96; RESP 18; TEMP 97.6; O2SAT 97
[2017-11-12] MEDS: SODIUM CHLORIDE 0.9% FLUSH 10 ML FLUSH IVF SCH (09:00)
[2017-11-12] MEDS: CYCLOBENZAPRINE HCL 10 MG TAB PO SCH ×3 (09:40→17:28)
[2017-11-12] MEDS: GABAPENTIN 400 MG CAP PO SCH ×4 (09:40→21:02)
[2017-11-12] MEDS: CYPROHEPTADINE HCL 4 MG TAB PO SCH ×2 (09:40→21:01)
[2017-11-12] MEDS: LACTOBACILLUS ACIDOPHILUS TAB PO SCH ×2 (09:40→21:02)
[2017-11-12] MEDS: DOCUSATE SODIUM 50 MG/SENNA 8.6 MG TAB PO SCH ×2 (09:40→21:01)
[2017-11-12] MEDS: MORPHINE SULFATE 15 MG CONTROLLED RELEASE TAB PO SCH ×2 (09:40→21:02)
[2017-11-12] MEDS: ESCITALOPRAM OXALATE 10 MG TAB PO SCH (09:40)
[2017-11-12] MEDS: SODIUM HYPOCHLORITE 0.25% 500 ML BTL TOPICAL SCH (09:40)
[2017-11-12] MEDS: CEFUROXIME AXETIL 500 MG TAB PO SCH ×2 (09:40→21:02)
[2017-11-12] MEDS: FERROUS SULFATE 325 MG (65 MG ELEMENTAL IRON) TAB PO SCH (09:40)
[2017-11-12] MEDS: PYRIDOXINE HCL 50 MG TAB PO SCH (09:40)
[2017-11-12] MEDS: ZINC OXIDE 40% OINT 60 GM TUBE TOPICAL SCH ×2 (09:41→21:00)
[2017-11-12] MEDS: SODIUM CHLORIDE 0.9% FLUSH 10 ML FLUSH IV FLUSH SCH ×2 (09:41→21:00)
[2017-11-12] MEDS: LACTIC ACID (AMMONIUM LACTATE) 12% LOTION 225 GM BTL TOPICAL SCH ×2 (09:41→21:00)
[2017-11-12 12:25] VITALS: BP 135/77; PULSE 98; RESP 20; TEMP 98.2; O2SAT 99
[2017-11-12] MEDS: MORPHINE SULFATE 2 MG/ML SYRINGE IV PUSH PRN ×2 (13:08→22:10)
[2017-11-12] MEDS: ONDANSETRON HCL 4 MG/2 ML VIAL IVP PRN (13:19)
[2017-11-12 16:20] VITALS: BP 124/75; PULSE 98; RESP 18; TEMP 97.9; O2SAT 96
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
[2017-11-12] MEDS: ENOXAPARIN SODIUM 40 MG/0.4 ML SYRINGE SQ SCH (17:28)
[2017-11-12] MEDS: ALPRAZolam 0.25 MG TAB PO PRN (21:01)
[2017-11-12] MEDS: MIRTAZAPINE 15 MG TAB PO SCH (21:01)
[2017-11-13] MEDS: METOPROLOL TARTRATE 50 MG TAB PO SCH ×3 (05:22→21:39)
[2017-11-13 05:25] VITALS: BP 127/98; PULSE 104; RESP 19; TEMP 97.6; O2SAT 94
[2017-11-13 08:00] VITALS: BP 127/89; PULSE 89; RESP 18; TEMP 97.6; O2SAT 94
[2017-11-13 08:08] VITALS: BP 122/72; PULSE 95; RESP 18; TEMP 98.2; O2SAT 95
[2017-11-13] MEDS: SODIUM CHLORIDE 0.9% FLUSH 10 ML FLUSH IVF SCH (09:00)
[2017-11-13] MEDS: CEFUROXIME AXETIL 500 MG TAB PO SCH ×2 (09:43→21:38)
[2017-11-13] MEDS: CYCLOBENZAPRINE HCL 10 MG TAB PO SCH ×3 (09:43→17:03)
[2017-11-13] MEDS: SODIUM CHLORIDE 0.9% FLUSH 10 ML FLUSH IV FLUSH SCH ×2 (09:43→21:00)
[2017-11-13] MEDS: FERROUS SULFATE 325 MG (65 MG ELEMENTAL IRON) TAB PO SCH (09:43)
[2017-11-13] MEDS: LACTOBACILLUS ACIDOPHILUS TAB PO SCH ×2 (09:43→21:38)
[2017-11-13] MEDS: MORPHINE SULFATE 15 MG CONTROLLED RELEASE TAB PO SCH ×2 (09:44→21:39)
[2017-11-13] MEDS: DOCUSATE SODIUM 50 MG/SENNA 8.6 MG TAB PO SCH ×2 (09:44→21:38)
[2017-11-13] MEDS: CYPROHEPTADINE HCL 4 MG TAB PO SCH ×2 (09:44→21:38)
[2017-11-13] MEDS: GABAPENTIN 400 MG CAP PO SCH ×4 (09:44→21:38)
[2017-11-13] MEDS: ESCITALOPRAM OXALATE 10 MG TAB PO SCH (09:44)
[2017-11-13] MEDS: PYRIDOXINE HCL 50 MG TAB PO SCH (09:45)
[2017-11-13] MEDS: ZINC OXIDE 40% OINT 60 GM TUBE TOPICAL SCH ×2 (09:46→21:00)
[2017-11-13] MEDS: LACTIC ACID (AMMONIUM LACTATE) 12% LOTION 225 GM BTL TOPICAL SCH ×2 (09:46→21:00)
[2017-11-13] MEDS: SODIUM HYPOCHLORITE 0.25% 500 ML BTL TOPICAL SCH (09:46)
[2017-11-13 12:08] VITALS: BP 124/70; PULSE 90; RESP 18; TEMP 98; O2SAT 96
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
[2017-11-13 15:13] LABS: AUTOMATED NEUTROPHIL # 4.1 TH/MM3 (1.8-7.7); BASOPHIL % 0.4 % (0.0-2.0); EOSINOPHIL # 0.2 TH/MM3 (0-0.4); EOSINOPHIL % 2.5 % (0.0-4.0); HEMATOCRIT 41.8 % (39.0-51.0); HEMOGLOBIN 14.8 GM/DL (13.0-17.0); LYMPH % 40.1 % (9.0-44.0); LYMPHOCYTE # 3.1 TH/MM3 (1.0-4.8); MEAN CELL VOLUME 85.3 FL (80.0-100.0); MEAN CORPUSCULAR HEMOGLOBIN 30.2 PG (27.0-34.0); MEAN CORPUSCULAR HGB CONC 35.4 % (32.0-36.0); MEAN PLATELET VOLUME 7.3 FL (7.0-11.0); MONO % 3.9 % (0.0-8.0); MONOCYTE # 0.3 TH/MM3 (0-0.9); NEUT % 53.1 % (16.0-70.0); PLATELET COUNT 389 TH/MM3 (150-450); RED BLOOD COUNT 4.91 MIL/MM3 (4.50-5.90); RED CELL DISTRIBUTION WIDTH 16.1 % (11.6-17.2); WHITE BLOOD COUNT 7.7 TH/MM3 (4.0-11.0)
[2017-11-13 15:35] LABS: ALT (GPT) 207 U/L (12-78); AST (GOT) 151 U/L (15-37); BLOOD UREA NITROGEN 10 MG/DL (7-18); CALCIUM 9.5 MG/DL (8.5-10.1); CHLORIDE 100 MEQ/L (98-107); CREATININE 0.87 MG/DL (0.60-1.30); GLOMERULAR FILTRATION RATE 118 ML/MIN (>89); GLUCOSE,RANDOM 191 MG/DL (74-106); SODIUM (NA) 138 MEQ/L (136-145)
[2017-11-13 15:37] LABS: ALKALINE PHOSPHATASE 149 U/L (45-117); TOTAL BILIRUBIN ADULT 0.4 MG/DL (0.2-1.0); TOTAL PROTEIN 9.6 GM/DL (6.4-8.2)
[2017-11-13 16:00] VITALS: BP 140/85; PULSE 91; RESP 18; TEMP 97.5; O2SAT 93
[2017-11-13] MEDS: ENOXAPARIN SODIUM 40 MG/0.4 ML SYRINGE SQ SCH (17:02)
[2017-11-13] MEDS: MORPHINE SULFATE 2 MG/ML SYRINGE IV PUSH PRN ×2 (17:02→22:45)
[2017-11-13 19:35] LABS: ACETAMINOPHEN LESS THAN 2.0 MCG/ML (10.0-30.0)
[2017-11-13 20:12] VITALS: BP 125/91; PULSE 106; RESP 18; TEMP 98; O2SAT 93
[2017-11-13] MEDS: MIRTAZAPINE 15 MG TAB PO SCH (21:38)
[2017-11-13] MEDS: ALPRAZolam 0.25 MG TAB PO PRN (21:39)
[2017-11-14 00:54] VITALS: BP 128/81; PULSE 109; RESP 18; TEMP 97.8; O2SAT 94
[2017-11-14 04:20] VITALS: BP 145/78; PULSE 101; RESP 18; TEMP 97.8; O2SAT 95
[2017-11-14] MEDS: METOPROLOL TARTRATE 50 MG TAB PO SCH ×3 (05:03→22:48)
[2017-11-14 08:00] VITALS: BP 121/83; PULSE 93; RESP 19; TEMP 97.5; O2SAT 96
[2017-11-14] MEDS: SODIUM CHLORIDE 0.9% FLUSH 10 ML FLUSH IVF SCH (09:00)
[2017-11-14] MEDS: FERROUS SULFATE 325 MG (65 MG ELEMENTAL IRON) TAB PO SCH (09:16)
[2017-11-14] MEDS: PYRIDOXINE HCL 50 MG TAB PO SCH (09:16)
[2017-11-14] MEDS: CYPROHEPTADINE HCL 4 MG TAB PO SCH ×2 (09:16→22:48)
[2017-11-14] MEDS: DOCUSATE SODIUM 50 MG/SENNA 8.6 MG TAB PO SCH ×2 (09:16→22:48)
[2017-11-14] MEDS: CYCLOBENZAPRINE HCL 10 MG TAB PO SCH ×3 (09:16→17:33)
[2017-11-14] MEDS: LACTOBACILLUS ACIDOPHILUS TAB PO SCH ×2 (09:16→22:47)
[2017-11-14] MEDS: GABAPENTIN 400 MG CAP PO SCH ×4 (09:16→22:48)
[2017-11-14] MEDS: ESCITALOPRAM OXALATE 10 MG TAB PO SCH (09:16)
[2017-11-14] MEDS: CEFUROXIME AXETIL 500 MG TAB PO SCH ×2 (09:16→22:47)
[2017-11-14] MEDS: MORPHINE SULFATE 15 MG CONTROLLED RELEASE TAB PO SCH ×2 (09:16→22:47)
[2017-11-14] MEDS: SODIUM HYPOCHLORITE 0.25% 500 ML BTL TOPICAL SCH (09:17)
[2017-11-14] MEDS: SODIUM CHLORIDE 0.9% FLUSH 10 ML FLUSH IV FLUSH SCH ×2 (09:17→22:49)
[2017-11-14] MEDS: ZINC OXIDE 40% OINT 60 GM TUBE TOPICAL SCH ×2 (09:18→21:00)
[2017-11-14] MEDS: LACTIC ACID (AMMONIUM LACTATE) 12% LOTION 225 GM BTL TOPICAL SCH ×2 (09:18→22:49)
[2017-11-14] MEDS: SELENIUM SULFIDE 1% SHAMPOO 207 ML BOTTLE TOPICAL SCH (09:18)
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
[2017-11-14 12:00] VITALS: BP 146/87; PULSE 88; RESP 18; TEMP 97.5; O2SAT 97
[2017-11-14] MEDS: MORPHINE SULFATE 2 MG/ML SYRINGE IV PUSH PRN ×2 (14:17→22:49)
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
[2017-11-14 16:00] VITALS: BP 148/87; PULSE 91; RESP 18; TEMP 97.6; O2SAT 97
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
[2017-11-14] MEDS: ENOXAPARIN SODIUM 40 MG/0.4 ML SYRINGE SQ SCH (17:33)
[2017-11-14 20:12] VITALS: BP 143/80; PULSE 111; RESP 20; TEMP 98.2; O2SAT 96
[2017-11-14] MEDS: MIRTAZAPINE 15 MG TAB PO SCH (22:48)
[2017-11-14] MEDS: diphenhydrAMINE HCL ELIXIR 12.5 MG/5 ML CUP PO PRN (22:57)
[2017-11-14] MEDS: ALPRAZolam 0.25 MG TAB PO PRN (22:57)
[2017-11-15] MEDS: METOPROLOL TARTRATE 50 MG TAB PO SCH ×3 (06:00→21:38)
[2017-11-15 08:00] VITALS: BP 120/86; PULSE 96; RESP 16; TEMP 98.2; O2SAT 93
[2017-11-15] MEDS: ESCITALOPRAM OXALATE 10 MG TAB PO SCH (08:56)
[2017-11-15] MEDS: LACTOBACILLUS ACIDOPHILUS TAB PO SCH ×2 (08:56→21:38)
[2017-11-15] MEDS: CYPROHEPTADINE HCL 4 MG TAB PO SCH ×2 (08:56→21:38)
[2017-11-15] MEDS: PYRIDOXINE HCL 50 MG TAB PO SCH (08:56)
[2017-11-15] MEDS: DOCUSATE SODIUM 50 MG/SENNA 8.6 MG TAB PO SCH ×2 (08:57→21:39)
[2017-11-15] MEDS: MORPHINE SULFATE 15 MG CONTROLLED RELEASE TAB PO SCH ×2 (08:57→21:39)
[2017-11-15] MEDS: CYCLOBENZAPRINE HCL 10 MG TAB PO SCH ×3 (08:57→17:31)
[2017-11-15] MEDS: CEFUROXIME AXETIL 500 MG TAB PO SCH ×2 (08:57→21:38)
[2017-11-15] MEDS: FERROUS SULFATE 325 MG (65 MG ELEMENTAL IRON) TAB PO SCH (08:57)
[2017-11-15] MEDS: GABAPENTIN 400 MG CAP PO SCH ×4 (08:57→21:38)
[2017-11-15] MEDS: SODIUM CHLORIDE 0.9% FLUSH 10 ML FLUSH IV FLUSH SCH ×2 (08:58→21:39)
[2017-11-15] MEDS: ZINC OXIDE 40% OINT 60 GM TUBE TOPICAL SCH ×2 (08:58→21:00)
[2017-11-15] MEDS: SODIUM HYPOCHLORITE 0.25% 500 ML BTL TOPICAL SCH (08:58)
[2017-11-15] MEDS: SODIUM CHLORIDE 0.9% FLUSH 10 ML FLUSH IVF SCH (08:58)
[2017-11-15] MEDS: LACTIC ACID (AMMONIUM LACTATE) 12% LOTION 225 GM BTL TOPICAL SCH ×2 (08:59→21:39)
[2017-11-15 09:57] LABS: % SATURATION IRON PROFILE 20.7 % (20-50); IRON (FE) 63 MCG/DL (65-175); TOTAL IRON BINDING CAPACITY 304 MCG/DL (250-450)
[2017-11-15 09:59] LABS: FERRITIN 196 NG/ML (26-388)
[2017-11-15 12:00] VITALS: BP 135/83; PULSE 110; RESP 18; TEMP 98.2; O2SAT 96
--- NOTE | 2017-11-15 12:04 | HHI.GIFU ---
Subjective Remarks Pt resting in bed. NO GI complaints. (Karen Mccauley) Objective Vitals I&O Vital Signs Date Time Temp Pulse Resp B/P (MAP) Pulse Ox O2 Delivery O2 Flow Rate FiO2 11/15/17 08:00 Room Air 11/15/17 08:00 98.2 96 16 120/86 (97) 93 11/14/17 20:12 98.2 111 20 143/80 (101) 96 11/14/17 20:12 Room Air 11/14/17 16:00 97.6 91 18 148/87 (107) 97 11/14/17 15:09 20 I/O 11/14/17 11/14/17 11/14/17 11/15/17 11/15/17 11/15/17 07:00 15:00 23:00 07:00 15:00 23:00 Intake Total 1200 ml 1250 ml Output Total 1450 ml 1150 ml 2250 ml Balance -1450 ml 50 ml -1000 ml Intake Oral 1200 ml 1250 ml Output Urine Total 1450 ml 1150 ml 1400 ml Stool Total 850 ml Laboratory Laboratory Tests Test 11/15/17 06:35 11/15/17 08:08 Iron Level 63 Total Iron Binding Capacity 304 Percent Iron Saturation 20.7 Ferritin 196 Tumor Marker Alpha Fetoprotein 7.4 Date/Time Source Procedure Growth Status 06/22/17 12:25 Blood Peripheral Aerobic Blood Culture - Final NO GROWTH IN 5 DAYS Complete 06/22/17 12:25 Blood Peripheral Anaerobic Blood Culture - Final NO GROWTH IN 5 DAYS Complete 11/06/17 20:35 Urine Clean Catch Urine Culture - Final Escherichia Coli Complete 09/04/17 10:20 Wound Scrotum Gram Stain - Final Complete 09/04/17 10:20 Wound Culture - Final S. Aureus Mrsa Acinetobacter Baumannii/Haemol Proteus Mirabilis Group D Enterococcus Complete Imaging Last Impressions Liver Ultrasound 11/14/17 0000 Signed Impressions: Service Date/Time: Tuesday, November 14, 2017 09:39 - CONCLUSION: Markedly echogenic liver possibly fatty infiltration. Difficult to rule out a focal mass. Adam Aguiar MD Abdomen Ultrasound 10/02/17 0000 Signed Impressions: Service Date/Time: Monday, October 02, 2017 17:31 - CONCLUSION: No acute abnormality demonstrated. Luis Felipe Greco MD Chest X-Ray 06/22/17 1157 Signed Impressions: Service Date/Time: Thursday, June 22, 2017 12:28 - CONCLUSION: No acute disease. Wes Callejas Jr., MD Physical Exam HEENT: Pupils round and reactive to light; normocephalic; atraumatic; no jaundice. CHEST: CTA CARDIAC: RRR ABDOMEN: Soft, obese, colostomy, nontender; bowel sounds are present in all four quadrants. EXTREMITIES: No clubbing, cyanosis, or edema. SKIN: Normal; no rash; no jaundice. ATHLETIC EQUIPMENT CUSTODIAN: No focal deficits; alert and oriented times three. (Karen Mccauley) Assessment and Plan Plan ASSESSMENT -- elevated LFTs - rising transaminases as of 09/2017. appears pt has had chronically elevated ALP but AST and ALT were normal. bili not elevated, doesn't appear obstructive. US indicates fatty liver. no GI sx. DILI vs fatty liver vs ? will get liver w/u r/o other cause. distant hx hepatic hemangioma d/w primary, pharmacy is double checking med list. hep panel neg, APAP ok. 11/15/17 liver w/u so far unremarkable. pt has no GI complaints PLAN - await liver w/u - consider CT abd - monitor LFTs - low fat diet - further recs to follow pt seen by myself and Dr Downey and this note is on his behalf (Karen Mccauley) Physician Comments Patient seen and examined Agree with above Continue with current supportive care Monitor labs If liver workup is negative then we will recommend liver biopsy especially if enzymes continue to rise (Yang Downey MD) Karen Mccauley Nov 15, 2017 12:04 Yang Downey MD Nov 15, 2017 20:58
[2017-11-15] MEDS: MORPHINE SULFATE 2 MG/ML SYRINGE IV PUSH PRN ×2 (13:02→22:08)
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
--- NOTE | 2017-11-15 13:51 | PD.WCN.NOT ---
Wound Consult Description: Follow up of posterior scrotum and left ischium Communicated with: Angel BULLOCK [address] [place] [address], Recommendation: 1. Reposition patient every 2 hours for comfort and offloading 2. Please offer patient a shower daily if refuses please provide bed bath. 3. Cleanse posterior scrotum wound and Left ischium wound with Dakins 1/4 solution pat dry. 4. Apply puracol to wound base and cover with Maxorb ll cut to fit and left open to air.Puracol to be changed every Maxorb to be changed as needed for exudate or dislodgement. 5 Apply Remedy antifungal powder to buttocks/groin skin folds daily or after shower. 6. Skin prep scar tissue to bilateral ischium and sacrum. Additional Information: Patient was seen today on by check writer salesperson and Angel BULLOCK for wound management .Patient alert and oriented x3. Patient is able to reposition self to right side with minimal assistance from check writer salesperson.All dressings removed by check writer salesperson buttocks and posterior scrotum cleansed with Dakin solution. Only open wounds that remain are posterior scrotum measure 0.4cm x2.8cm x <0.1cm wound base 100% moist pink non granular tissue wound wedges are well defined even with wound base scant serous drainage noted to prior dressing.Left trochanter measures 0.6cm x 3.2cm x<0.1cm wound base is 100% moist pink non granular tissue wound edges are well defined and even with wound base.Scant serous drainage noted to prior dressing.soft scar tissue noted to lateral ischium and sacral area.Skinprep applied to scar tissue.posterior scrotum and left trochanter were cleanse with Dakin solution pat dry Puracol cut to fit wound base applied and covered with Maxorb ll cut to fit and left open o air.Patient has been refusing showers and has white paste build up in buttocks skin folds and groin area with mild yeast odor . Pericare performed by check writer salesperson and Angel BULLOCK to apply antifungal powder after full shower.Patient is ready for plastics consult for possible skin flap. Quique Davidson [facility] Nov 15, 2017 13:51
[2017-11-15] MEDS: HYDROmorphone HCL 4 MG TAB PO PRN (15:18)
[2017-11-15 16:00] VITALS: BP 118/85; PULSE 99; RESP 16; TEMP 97.5; O2SAT 94
[2017-11-15] MEDS: ENOXAPARIN SODIUM 40 MG/0.4 ML SYRINGE SQ SCH (17:31)
[2017-11-15 20:00] VITALS: BP 132/86; PULSE 112; RESP 18; TEMP 97.5; O2SAT 94
[2017-11-15] MEDS: ALPRAZolam 0.25 MG TAB PO PRN (21:38)
[2017-11-15] MEDS: diphenhydrAMINE HCL ELIXIR 12.5 MG/5 ML CUP PO PRN (21:38)
[2017-11-15] MEDS: MIRTAZAPINE 15 MG TAB PO SCH (21:38)
[2017-11-16] MEDS: oxyCODONE/ACETAMINOPHEN 5 MG/325 MG TAB PO PRN (03:30)
[2017-11-16] MEDS: METOPROLOL TARTRATE 50 MG TAB PO SCH ×3 (05:57→22:24)
[2017-11-16 08:00] VITALS: BP 141/96; PULSE 106; RESP 20; TEMP 97.8; O2SAT 96
[2017-11-16] MEDS: LACTOBACILLUS ACIDOPHILUS TAB PO SCH ×2 (09:00→21:00)
[2017-11-16] MEDS: SODIUM CHLORIDE 0.9% FLUSH 10 ML FLUSH IVF SCH (09:00)
[2017-11-16] MEDS: GABAPENTIN 400 MG CAP PO SCH ×4 (09:03→22:23)
[2017-11-16] MEDS: PYRIDOXINE HCL 50 MG TAB PO SCH (09:03)
[2017-11-16] MEDS: FERROUS SULFATE 325 MG (65 MG ELEMENTAL IRON) TAB PO SCH (09:04)
[2017-11-16] MEDS: ESCITALOPRAM OXALATE 10 MG TAB PO SCH (09:04)
[2017-11-16] MEDS: DOCUSATE SODIUM 50 MG/SENNA 8.6 MG TAB PO SCH ×2 (09:04→22:24)
[2017-11-16] MEDS: CYPROHEPTADINE HCL 4 MG TAB PO SCH ×2 (09:04→22:22)
[2017-11-16] MEDS: CEFUROXIME AXETIL 500 MG TAB PO SCH (09:04)
[2017-11-16] MEDS: MORPHINE SULFATE 15 MG CONTROLLED RELEASE TAB PO SCH ×2 (09:05→22:23)
[2017-11-16] MEDS: CYCLOBENZAPRINE HCL 10 MG TAB PO SCH ×3 (09:05→17:52)
[2017-11-16] MEDS: LACTIC ACID (AMMONIUM LACTATE) 12% LOTION 225 GM BTL TOPICAL SCH ×2 (09:07→22:25)
[2017-11-16] MEDS: SODIUM CHLORIDE 0.9% FLUSH 10 ML FLUSH IV FLUSH SCH ×2 (09:07→22:24)
[2017-11-16] MEDS: ZINC OXIDE 40% OINT 60 GM TUBE TOPICAL SCH ×2 (09:07→21:00)
[2017-11-16] MEDS: SODIUM HYPOCHLORITE 0.25% 500 ML BTL TOPICAL SCH (09:08)
[2017-11-16 09:26] LABS: ALBUMIN 3.8 GM/DL (3.4-5.0); DIRECT BILIRUBIN ADULT 0.1 MG/DL (0.0-0.2)
[2017-11-16 09:27] LABS: INDIRECT BILIRUBIN 0.2 MG/DL (0.0-0.8); TOTAL BILIRUBIN ADULT 0.3 MG/DL (0.2-1.0); TOTAL PROTEIN 8.8 GM/DL (6.4-8.2)
[2017-11-16 12:00] VITALS: BP 147/87; PULSE 97; RESP 20; TEMP 97.5; O2SAT 94
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
[2017-11-16 13:21] LABS: SMOOTH MUSCLE TOTAL AUTOABS Negative (Negative)
[2017-11-16] MEDS: MORPHINE SULFATE 2 MG/ML SYRINGE IV PUSH PRN (15:51)
[2017-11-16 16:00] VITALS: BP 149/94; PULSE 114; RESP 20; TEMP 98; O2SAT 95
[2017-11-16] MEDS: ENOXAPARIN SODIUM 40 MG/0.4 ML SYRINGE SQ SCH (16:17)
--- NOTE | 2017-11-16 16:17 | HHI.GIFU ---
Subjective Remarks Pt resting in bed. Napping. No GI complaints. (Karen Mccauley LIFT MANAGER) Objective Vitals I&O Vital Signs Date Time Temp Pulse Resp B/P (MAP) Pulse Ox O2 Delivery O2 Flow Rate FiO2 11/16/17 12:00 97.5 97 20 147/87 (107) 94 11/16/17 08:00 97.8 106 20 141/96 (111) 96 11/16/17 07:00 Room Air 11/15/17 20:00 Room Air 11/15/17 20:00 97.5 112 18 132/86 (101) 94 I/O 11/15/17 11/15/17 11/15/17 11/16/17 11/16/17 11/16/17 07:00 15:00 23:00 07:00 15:00 23:00 Intake Total 1250 ml 1750 ml Output Total 2250 ml 650 ml 300 ml 2100 ml Balance -1000 ml -650 ml -300 ml -350 ml Intake Oral 1250 ml 1750 ml Output Urine Total 1400 ml 650 ml 300 ml 2100 ml Stool Total 850 ml # Bowel Movements 1 1 Laboratory Laboratory Tests Test 11/16/17 08:36 Total Bilirubin 0.3 Direct Bilirubin 0.1 Indirect Bilirubin 0.2 Aspartate Amino Transf (AST/SGOT) 97 Alanine Aminotransferase (ALT/SGPT) 172 Alkaline Phosphatase 143 Total Protein 8.8 Albumin 3.8 Date/Time Source Procedure Growth Status 06/22/17 12:25 Blood Peripheral Aerobic Blood Culture - Final NO GROWTH IN 5 DAYS Complete 06/22/17 12:25 Blood Peripheral Anaerobic Blood Culture - Final NO GROWTH IN 5 DAYS Complete 11/06/17 20:35 Urine Clean Catch Urine Culture - Final Escherichia Coli Complete 09/04/17 10:20 Wound Scrotum Gram Stain - Final Complete 09/04/17 10:20 Wound Culture - Final S. Aureus Mrsa Acinetobacter Baumannii/Haemol Proteus Mirabilis Group D Enterococcus Complete Physical Exam HEENT: Pupils round and reactive to light; normocephalic; atraumatic; no jaundice. CHEST: CTA CARDIAC: RRR ABDOMEN: Soft, obese, colostomy, nontender; bowel sounds are present in all four quadrants. EXTREMITIES: No clubbing, cyanosis, or edema. SKIN: Normal; no rash; no jaundice. PRIMARY CARE SALES REPRESENTATIVE: No focal deficits; alert and oriented times three. (Karen Mccauley) Assessment and Plan Plan ASSESSMENT -- elevated LFTs - rising transaminases as of 09/2017. appears pt has had chronically elevated ALP but AST and ALT were normal. bili not elevated, doesn't appear obstructive. US indicates fatty liver. no GI sx. DILI vs fatty liver vs ? will get liver w/u r/o other cause. distant hx hepatic hemangioma d/w primary, pharmacy is double checking med list. hep panel neg, APAP ok. 11/15/17 liver w/u so far unremarkable. pt has no GI complaints 11/16/17 LFTs relatively stable. w/u pending. pt with no complaints. PLAN - await liver w/u - if liver w/u negative then liver bx, d/w pt - monitor LFTs - low fat diet pt seen by myself and Dr Downey and this note is on his behalf (Karen Mccauley) Physician Comments Patient seen and examined Agree with above Continue with current supportive care Monitor labs LFTs appear to be resolving Workup in progress (Yang Downey MD) Karen Mccauley Nov 16, 2017 16:17 Yang Downey MD Nov 16, 2017 18:09
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
[2017-11-16 20:00] VITALS: BP 142/95; PULSE 115; RESP 21; TEMP 97.7; O2SAT 94
[2017-11-16 22:20] LABS: ALPHA-1-ANTITRYPSIN 147 mg/dL (100 - 190)
[2017-11-16] MEDS: ALPRAZolam 0.25 MG TAB PO PRN (22:24)
[2017-11-16] MEDS: MIRTAZAPINE 15 MG TAB PO SCH (22:24)
[2017-11-17] VITALS: BP 135/89; PULSE 103; RESP 21; TEMP 97.2; O2SAT 94
[2017-11-17] MEDS: MORPHINE SULFATE 2 MG/ML SYRINGE IV PUSH PRN ×3 (02:12→22:37)
[2017-11-17] MEDS: METOPROLOL TARTRATE 50 MG TAB PO SCH ×3 (06:19→22:35)
[2017-11-17 08:00] VITALS: BP 120/73; PULSE 100; RESP 18; TEMP 97.6; O2SAT 96
[2017-11-17] MEDS: SODIUM CHLORIDE 0.9% FLUSH 10 ML FLUSH IVF SCH (08:21)
[2017-11-17] MEDS: PYRIDOXINE HCL 50 MG TAB PO SCH (09:59)
[2017-11-17] MEDS: DOCUSATE SODIUM 50 MG/SENNA 8.6 MG TAB PO SCH ×2 (09:59→22:34)
[2017-11-17] MEDS: ESCITALOPRAM OXALATE 10 MG TAB PO SCH (09:59)
[2017-11-17] MEDS: LACTOBACILLUS ACIDOPHILUS TAB PO SCH ×2 (09:59→22:34)
[2017-11-17] MEDS: CYCLOBENZAPRINE HCL 10 MG TAB PO SCH ×3 (09:59→18:11)
[2017-11-17] MEDS: SODIUM CHLORIDE 0.9% FLUSH 10 ML FLUSH IV FLUSH SCH ×2 (09:59→22:41)
[2017-11-17] MEDS: GABAPENTIN 400 MG CAP PO SCH ×4 (09:59→22:35)
[2017-11-17] MEDS: FERROUS SULFATE 325 MG (65 MG ELEMENTAL IRON) TAB PO SCH (09:59)
[2017-11-17] MEDS: CYPROHEPTADINE HCL 4 MG TAB PO SCH ×2 (09:59→22:34)
[2017-11-17] MEDS: MORPHINE SULFATE 15 MG CONTROLLED RELEASE TAB PO SCH ×2 (10:00→22:36)
[2017-11-17] MEDS: LACTIC ACID (AMMONIUM LACTATE) 12% LOTION 225 GM BTL TOPICAL SCH ×2 (10:01→22:39)
[2017-11-17] MEDS: SODIUM HYPOCHLORITE 0.25% 500 ML BTL TOPICAL SCH ×2 (10:01→22:38)
[2017-11-17] MEDS: ZINC OXIDE 40% OINT 60 GM TUBE TOPICAL SCH ×2 (10:01→22:38)
[2017-11-17 12:00] VITALS: BP 123/68; PULSE 94; RESP 18; TEMP 97.3; O2SAT 96
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
--- NOTE | 2017-11-17 15:13 | HHI.GIFU ---
Subjective Remarks Resting in the bed colostomy bag with increased air and gas Eyes open, answering simple questions with one-word yes or no Abdomen taut Afebrile (Ashley Virgen) Objective Vitals I&O Vital Signs Date Time Temp Pulse Resp B/P (MAP) Pulse Ox O2 Delivery O2 Flow Rate FiO2 11/17/17 13:22 18 11/17/17 12:00 97.3 94 18 123/68 (86) 96 11/17/17 11:04 18 11/17/17 09:55 Room Air 11/17/17 08:00 97.6 100 18 120/73 (89) 96 11/17/17 04:00 11/17/17 00:00 97.2 103 21 135/89 (104) 94 11/16/17 20:00 97.7 115 21 142/95 (111) 94 11/16/17 19:00 Room Air 11/16/17 16:00 98.0 114 20 149/94 (112) 95 I/O 11/16/17 11/16/17 11/16/17 11/17/17 11/17/17 11/17/17 07:00 15:00 23:00 07:00 15:00 23:00 Intake Total 1750 ml 720 ml 1500 ml Output Total 2100 ml 1000 ml 2300 ml Balance -350 ml -280 ml -800 ml Intake Oral 1750 ml 720 ml 1500 ml Output Urine Total 2100 ml 1000 ml 2300 ml # Bowel Movements 1 Laboratory Date/Time Source Procedure Growth Status 06/22/17 12:25 Blood Peripheral Aerobic Blood Culture - Final NO GROWTH IN 5 DAYS Complete 06/22/17 12:25 Blood Peripheral Anaerobic Blood Culture - Final NO GROWTH IN 5 DAYS Complete 11/06/17 20:35 Urine Clean Catch Urine Culture - Final Escherichia Coli Complete 09/04/17 10:20 Wound Scrotum Gram Stain - Final Complete 09/04/17 10:20 Wound Culture - Final S. Aureus Mrsa Acinetobacter Baumannii/Haemol Proteus Mirabilis Group D Enterococcus Complete Imaging Last Impressions Liver Ultrasound 11/14/17 0000 Signed Impressions: Service Date/Time: Tuesday, November 14, 2017 09:39 - CONCLUSION: Markedly echogenic liver possibly fatty infiltration. Difficult to rule out a focal mass. Adam Aguiar MD Abdomen Ultrasound 10/02/17 0000 Signed Impressions: Service Date/Time: Monday, October 02, 2017 17:31 - CONCLUSION: No acute abnormality demonstrated. Luis Felipe Greco MD Chest X-Ray 06/22/17 1157 Signed Impressions: Service Date/Time: Thursday, June 22, 2017 12:28 - CONCLUSION: No acute disease. Wes Callejas Jr., MD Physical Exam HEENT: Pupils round and reactive to light; normocephalic; atraumatic; obese CHEST: CTA, no obvious rhonchi CARDIAC: RRR ABDOMEN: Taut, obese, colostomy with increased gas, nontender; bowel sounds are present in all four quadrants. EXTREMITIES: No clubbing, cyanosis, or edema. SKIN: Normal; no rash; no jaundice. HAND SHAKER: Eyes open, answering simple questions with one-word yes or no (Ashley Virgen) Assessment and Plan Plan ASSESSMENT -- elevated LFTs - rising transaminases as of 09/2017. appears pt has had chronically elevated ALP but AST and ALT were normal. bili not elevated, doesn't appear obstructive. US indicates fatty liver. no GI sx. DILI vs fatty liver vs ? will get liver w/u r/o other cause. distant hx hepatic hemangioma d/w primary, pharmacy is double checking med list. hep panel neg, APAP ok. 11/15/17 liver w/u so far unremarkable. pt has no GI complaints 11/16/17 LFTs relatively stable. w/u pending. pt with no complaints. 11/17/2017, noted liver ultrasound fatty liver, increase gaseous distention today and colostomy bag and abdomen taut, current hemoglobin 14.8, LFTs from 1897 AST 172 ALT PLAN - await liver workup, JOY negative, anti-smooth muscle antibody negative, negative hepatitis panel -May need possible liver biopsy - monitor LFTs and other labs - Supportive care - low fat diet pt seen by myself and Dr Coto, note is on his behalf (Ashley Virgen) Plan Patient was seen and examined, agree with above note, most of the workup so far is negative, the LFTs mostly transaminase and alkaline phosphatase, alcohol could be the reason, medication also another possible reason, if no improvement in the patient was noted to have liver biopsy is can be done for examination of the reason since LFTs were normal 4 month ago (Keenan Coto MD) Ashley Virgen Nov 17, 2017 15:13 Keenan Coto MD Nov 17, 2017 19:13
[2017-11-17 16:00] VITALS: BP 127/71; PULSE 89; RESP 18; TEMP 97.4; O2SAT 96
[2017-11-17 17:52] LABS: CERULOPLASMIN 32 mg/dL (18-36)
[2017-11-17] MEDS: ENOXAPARIN SODIUM 40 MG/0.4 ML SYRINGE SQ SCH (18:11)
[2017-11-17 20:00] VITALS: BP 141/79; PULSE 106; RESP 18; TEMP 98.1; O2SAT 96
[2017-11-17] MEDS: MIRTAZAPINE 15 MG TAB PO SCH (22:35)
[2017-11-17] MEDS: ALPRAZolam 0.25 MG TAB PO PRN (22:55)
[2017-11-18] VITALS: BP 148/76; PULSE 96; RESP 18; TEMP 97.4; O2SAT 96
[2017-11-18 06:16] VITALS: BP 137/86; PULSE 101; RESP 16; TEMP 98; O2SAT 95
[2017-11-18] MEDS: METOPROLOL TARTRATE 50 MG TAB PO SCH ×3 (06:18→21:36)
[2017-11-18 08:04] VITALS: BP 132/68; PULSE 88; RESP 19; TEMP 98.4; O2SAT 95
[2017-11-18] MEDS: PYRIDOXINE HCL 50 MG TAB PO SCH (08:33)
[2017-11-18] MEDS: SODIUM CHLORIDE 0.9% FLUSH 10 ML FLUSH IV FLUSH SCH ×2 (08:33→21:37)
[2017-11-18] MEDS: CYPROHEPTADINE HCL 4 MG TAB PO SCH ×2 (08:33→21:32)
[2017-11-18] MEDS: SODIUM CHLORIDE 0.9% FLUSH 10 ML FLUSH IVF SCH (08:33)
[2017-11-18] MEDS: MORPHINE SULFATE 15 MG CONTROLLED RELEASE TAB PO SCH ×2 (08:34→21:34)
[2017-11-18] MEDS: FERROUS SULFATE 325 MG (65 MG ELEMENTAL IRON) TAB PO SCH (08:34)
[2017-11-18] MEDS: GABAPENTIN 400 MG CAP PO SCH ×4 (08:34→21:32)
[2017-11-18] MEDS: CYCLOBENZAPRINE HCL 10 MG TAB PO SCH ×3 (08:35→18:52)
[2017-11-18] MEDS: LACTOBACILLUS ACIDOPHILUS TAB PO SCH ×2 (08:35→21:31)
[2017-11-18] MEDS: ESCITALOPRAM OXALATE 10 MG TAB PO SCH (08:35)
[2017-11-18] MEDS: DOCUSATE SODIUM 50 MG/SENNA 8.6 MG TAB PO SCH ×2 (08:36→21:32)
[2017-11-18] MEDS: SODIUM HYPOCHLORITE 0.25% 500 ML BTL TOPICAL SCH (08:38)
[2017-11-18] MEDS: LACTIC ACID (AMMONIUM LACTATE) 12% LOTION 225 GM BTL TOPICAL SCH ×2 (08:38→21:36)
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
[2017-11-18 12:04] VITALS: BP 138/66; PULSE 100; RESP 18; TEMP 98.2; O2SAT 96
[2017-11-18] MEDS: MORPHINE SULFATE 2 MG/ML SYRINGE IV PUSH PRN ×2 (15:27→21:34)
[2017-11-18] MEDS: ZINC OXIDE 40% OINT 60 GM TUBE TOPICAL SCH ×2 (15:28→21:36)
--- NOTE | 2017-11-18 15:30 | HHI.GIFU ---
Subjective Remarks Pt resting in bed. no new complaints. (Karen Mccauley) Objective Vitals I&O Vital Signs Date Time Temp Pulse Resp B/P (MAP) Pulse Ox O2 Delivery O2 Flow Rate FiO2 11/18/17 12:04 98.2 100 18 138/66 (90) 96 11/18/17 09:34 20 11/18/17 08:04 98.4 88 19 132/68 (89) 95 11/18/17 06:16 98.0 101 16 137/86 (103) 95 11/18/17 00:00 97.4 96 18 148/76 (100) 96 11/17/17 20:45 Room Air 11/17/17 20:00 98.1 106 18 141/79 (99) 96 11/17/17 16:00 97.4 89 18 127/71 (89) 96 I/O 11/17/17 11/17/17 11/17/17 11/18/17 11/18/17 11/18/17 07:00 15:00 23:00 07:00 15:00 23:00 Intake Total 1500 ml 240 ml Output Total 2300 ml 1100 ml 850 ml Balance -800 ml -1100 ml -610 ml Intake Oral 1500 ml 240 ml Output Urine Total 2300 ml 1100 ml 850 ml Laboratory Date/Time Source Procedure Growth Status 06/22/17 12:25 Blood Peripheral Aerobic Blood Culture - Final NO GROWTH IN 5 DAYS Complete 06/22/17 12:25 Blood Peripheral Anaerobic Blood Culture - Final NO GROWTH IN 5 DAYS Complete 11/06/17 20:35 Urine Clean Catch Urine Culture - Final Escherichia Coli Complete 09/04/17 10:20 Wound Scrotum Gram Stain - Final Complete 09/04/17 10:20 Wound Culture - Final S. Aureus Mrsa Acinetobacter Baumannii/Haemol Proteus Mirabilis Group D Enterococcus Complete Imaging Last Impressions Liver Ultrasound 11/14/17 0000 Signed Impressions: Service Date/Time: Tuesday, November 14, 2017 09:39 - CONCLUSION: Markedly echogenic liver possibly fatty infiltration. Difficult to rule out a focal mass. Adam Aguiar MD Abdomen Ultrasound 10/02/17 0000 Signed Impressions: Service Date/Time: Monday, October 02, 2017 17:31 - CONCLUSION: No acute abnormality demonstrated. Luis Felipe Greco MD Chest X-Ray 06/22/17 1157 Signed Impressions: Service Date/Time: Thursday, June 22, 2017 12:28 - CONCLUSION: No acute disease. Wes Callejas Jr., MD Physical Exam HEENT: PERRL; normocephalic; atraumatic; CHEST: CTA CARDIAC: RRR ABDOMEN: obese, colostomy, nontender; bowel sounds are present in all four quadrants. EXTREMITIES: No clubbing, cyanosis, or edema. SKIN: Normal; no rash; no jaundice. FIELD CAPTAIN: AOX3 (Karen Mccauley) Assessment and Plan Plan ASSESSMENT -- elevated LFTs - rising transaminases as of 09/2017. appears pt has had chronically elevated ALP but AST and ALT were normal. bili not elevated, doesn't appear obstructive. US indicates fatty liver. no GI sx. DILI vs fatty liver vs ? will get liver w/u r/o other cause. distant hx hepatic hemangioma d/w primary, pharmacy is double checking med list. hep panel neg, APAP ok. 11/15/17 liver w/u so far unremarkable. pt has no GI complaints 11/16/17 LFTs relatively stable. w/u pending. pt with no complaints. 11/17/2017, noted liver ultrasound fatty liver, increase gaseous distention today and colostomy bag and abdomen taut, current hemoglobin 14.8, LFTs from 1897 AST 172 ALT 11/18/17 liver w/u so far negative. AMA is still pending. PLAN - await AMA - if AMA neg, liver bx - monitor LFTs and other labs - Supportive care pt seen by myself and Dr Coto, note is on his behalf (Karen Mccauley) Plan Agree with above note, patient seems to be comfortable, most likely fatty liver , will wait for the AMA, patient need to be a low-fat diet and avoid alcohol (Keenan Coto MD) Karen Mccauley Nov 18, 2017 15:30 Keenan Coto MD Nov 18, 2017 19:29
[2017-11-18 16:04] VITALS: BP 129/79; PULSE 92; RESP 18; TEMP 98.2; O2SAT 96
[2017-11-18] MEDS: ENOXAPARIN SODIUM 40 MG/0.4 ML SYRINGE SQ SCH (16:58)
[2017-11-18] MEDS: ALPRAZolam 0.25 MG TAB PO PRN (21:31)
[2017-11-18] MEDS: MIRTAZAPINE 15 MG TAB PO SCH (21:32)
[2017-11-18 21:33] VITALS: BP 141/85; PULSE 98; RESP 17; TEMP 98; O2SAT 96
[2017-11-19 00:59] VITALS: BP 134/83; PULSE 101; RESP 17; TEMP 98.4; O2SAT 96
[2017-11-19] MEDS: HYDROmorphone HCL 4 MG TAB PO PRN (01:39)
[2017-11-19 03:49] LABS: MITOCHONDRIAL ABS LESS THAN 20.0 U (<=20.0)
[2017-11-19 06:01] VITALS: BP 136/82; PULSE 102; RESP 14; TEMP 97.5; O2SAT 95
[2017-11-19] MEDS: METOPROLOL TARTRATE 50 MG TAB PO SCH ×2 (06:02→12:43)
[2017-11-19 08:00] VITALS: BP 121/65; PULSE 92; RESP 18; TEMP 97.7; O2SAT 95
[2017-11-19] MEDS: PYRIDOXINE HCL 50 MG TAB PO SCH (08:40)
[2017-11-19] MEDS: ESCITALOPRAM OXALATE 10 MG TAB PO SCH (08:40)
[2017-11-19] MEDS: CYCLOBENZAPRINE HCL 10 MG TAB PO SCH ×2 (08:40→12:43)
[2017-11-19] MEDS: MORPHINE SULFATE 15 MG CONTROLLED RELEASE TAB PO SCH (08:40)
[2017-11-19] MEDS: GABAPENTIN 400 MG CAP PO SCH ×2 (08:40→12:43)
[2017-11-19] MEDS: FERROUS SULFATE 325 MG (65 MG ELEMENTAL IRON) TAB PO SCH (08:40)
[2017-11-19] MEDS: DOCUSATE SODIUM 50 MG/SENNA 8.6 MG TAB PO SCH (08:41)
[2017-11-19] MEDS: LACTOBACILLUS ACIDOPHILUS TAB PO SCH (08:41)
[2017-11-19] MEDS: CYPROHEPTADINE HCL 4 MG TAB PO SCH (08:41)
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
[2017-11-19] MEDS ORDERED: PERI PO (11:50)
[2017-11-19] MEDS ORDERED: ESCI10TA PO (11:50)
[2017-11-19] MEDS ORDERED: MAGN30S PO (11:50)
[2017-11-19] MEDS ORDERED: DAKINSHST TOPICAL (11:50)
[2017-11-19] MEDS ORDERED: METO-309 PO (11:50)
[2017-11-19] MEDS ORDERED: MORP1TAB24 PO (11:50)
[2017-11-19] MEDS ORDERED: ENOX40P SQ (11:50)
[2017-11-19] MEDS ORDERED: OXYC1TAB63 PO (11:50)
[2017-11-19] MEDS ORDERED: DILA4TAB10 PO (11:50)
[2017-11-19] MEDS ORDERED: Zinc Oxide 40% Oint TOPICAL (11:50)
[2017-11-19] MEDS ORDERED: ALPR.25 PO (11:50)
[2017-11-19] MEDS ORDERED: SIME125 PO (11:50)
[2017-11-19] MEDS ORDERED: DIPH12.5S PO (11:50)
[2017-11-19] MEDS ORDERED: Lactulose Liq PO (11:50)
[2017-11-19] MEDS ORDERED: Lactic Acid 12% Lotion TOPICAL (11:50)
[2017-11-19] MEDS ORDERED: SELS1SHA12 TOPICAL (11:50)
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
[2017-11-19 12:00] VITALS: BP 131/73; PULSE 100; RESP 18; TEMP 97.8; O2SAT 94
--- NOTE | 2017-11-19 12:45 | HHI.GIFU ---
Subjective Remarks awake resting in the bed Seems to understand simple conversation Abdominal tightness but denies any abdominal pain. Colostomy stoma clean dry and intact bag intact (Ashley Virgen) Objective Vitals I&O Vital Signs Date Time Temp Pulse Resp B/P (MAP) Pulse Ox O2 Delivery O2 Flow Rate FiO2 11/19/17 08:00 97.7 92 18 121/65 (83) 95 11/19/17 08:00 95 Room Air 11/19/17 06:01 97.5 102 14 136/82 (100) 95 11/19/17 00:59 98.4 101 17 134/83 (100) 96 11/18/17 21:33 98.0 98 17 141/85 (103) 96 11/18/17 20:45 Room Air 11/18/17 16:04 98.2 92 18 129/79 (96) 96 11/18/17 15:32 20 I/O 11/18/17 11/18/17 11/18/17 11/19/17 11/19/17 11/19/17 06:59 14:59 22:59 06:59 14:59 22:59 Intake Total 240 ml 360 ml Output Total 850 ml 1200 ml 1400 ml Balance -610 ml -840 ml -1400 ml Intake Oral 240 ml 360 ml Output Urine Total 850 ml 1200 ml 1400 ml # Bowel Movements 0 Laboratory Date/Time Source Procedure Growth Status 06/22/17 12:25 Blood Peripheral Aerobic Blood Culture - Final NO GROWTH IN 5 DAYS Complete 06/22/17 12:25 Blood Peripheral Anaerobic Blood Culture - Final NO GROWTH IN 5 DAYS Complete 11/06/17 20:35 Urine Clean Catch Urine Culture - Final Escherichia Coli Complete 09/04/17 10:20 Wound Scrotum Gram Stain - Final Complete 09/04/17 10:20 Wound Culture - Final S. Aureus Mrsa Acinetobacter Baumannii/Haemol Proteus Mirabilis Group D Enterococcus Complete Imaging Last Impressions Liver Ultrasound 11/14/17 0000 Signed Impressions: Service Date/Time: Tuesday, November 14, 2017 09:39 - CONCLUSION: Markedly echogenic liver possibly fatty infiltration. Difficult to rule out a focal mass. Adam Aguiar MD Abdomen Ultrasound 10/02/17 0000 Signed Impressions: Service Date/Time: Monday, October 02, 2017 17:31 - CONCLUSION: No acute abnormality demonstrated. Luis Felipe Greco MD Chest X-Ray 06/22/17 1157 Signed Impressions: Service Date/Time: Thursday, June 22, 2017 12:28 - CONCLUSION: No acute disease. Wes Callejas Jr., MD Physical Exam HEENT: PERRL; normocephalic; atraumatic; obese CHEST: CTA , no obvious rhonchi or wheezing CARDIAC: RRR, heart rate 98-1 O2 dependent on any activity ABDOMEN: obese, colostomy, nontender; taut, bowel sounds are present in all four quadrants. EXTREMITIES: No clubbing, cyanosis, or edema. SKIN: Normal; no rash; no jaundice. 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 appears pt has had chronically elevated ALP but AST and ALT were normal. bili not elevated, doesn't appear obstructive. US indicates fatty liver. no GI sx. DILI vs fatty liver vs ? will get liver w/u r/o other cause. distant hx hepatic hemangioma d/w primary, pharmacy is double checking med list. hep panel neg, APAP ok. 11/15/17 liver w/u so far unremarkable. pt has no GI complaints 11/16/17 LFTs relatively stable. w/u pending. pt with no complaints. 11/17/2017, noted liver ultrasound fatty liver, increase gaseous distention today and colostomy bag and abdomen taut, current hemoglobin 14.8, LFTs from 1897 AST 172 ALT 11/18/17 liver w/u so far negative. AMA is still pending. 11/19/2017, patient is resting in the bed with no obvious distress. Abdomen taut , tympanic but denies any acute abdominal pain. Colostomy bag clean with mild gas obtained. Discharge planning in process for patient to go to [facility] and rehab today around 1315. Current hemoglobin 14.8. Elevated LFTs were probably secondary to patient's fatty liver disease. Current labs JOY negative, anti-smooth muscle ab negative, hepatitis panel negative, mitochondrial antibody 20 negative, (AMA), AFP 7.4, ceruloplasmin 32, PLAN -AMA negative consider liver biopsy as outpatient - monitor LFTs and other labs -Alcohol abstinence -Low-fat diet - Supportive care, probable fatty liver disease Patient can follow-up with GI as outpatient if needed pt seen by myself and Dr Coto, note is on his behalf (Ashley Virgen) Plan Agree with above note, monitor liver function test, patient is going to rehab facility in [place], need to follow-up with GI as an outpatient (Keenan Coto MD) Ashley Virgen Nov 19, 2017 12:44 Keenan Coto MD Nov 19, 2017 17:40
== END 2017-11-19 13:54 | DRG 592 ==
LOC: NEPC 11:19 → NEDA 16:14 → OBSVTOIN 16:54 → N04B 17:38
PROVIDERS: ADMIT Hospitalist; ATTEND Hospitalist
PROC: 0HDAXZZ Extraction of Inguinal Skin, External Approach (ICD-10-PCS; principal; 2017-09-04)
DX: L89.154 Pressure ulcer of sacral region, stage 4 (principal); G82.20 Paraplegia, unspecified; K76.0 Fatty (change of) liver, not elsewhere classified; N39.0 Urinary tract infection, site not specified; T83.518A Infection and inflammatory reaction due to other urinary catheter, initial encounter; N31.9 Neuromuscular dysfunction of bladder, unspecified; F41.9 Anxiety disorder, unspecified; F32.9 Major depressive disorder, single episode, unspecified; Z87.440 Personal history of urinary (tract) infections; Z93.3 Colostomy status; Z93.59 Other cystostomy status; Z86.718 Personal history of other venous thrombosis and embolism; Z86.19 Personal history of other infectious and parasitic diseases; Z80.42 Family history of malignant neoplasm of prostate; Z72.0 Tobacco use; E66.09 Other obesity due to excess calories; Z68.34 Body mass index [BMI] 34.0-34.9, adult; W34.00XS Accidental discharge from unspecified firearms or gun, sequela; Z87.828 Personal history of other (healed) physical injury and trauma; Z86.14 Personal history of Methicillin resistant Staphylococcus aureus infection; D64.9 Anemia, unspecified; N50.89 Other specified disorders of the male genital organs; B96.20 Unspecified Escherichia coli [E. coli] as the cause of diseases classified elsewhere; B96.4 Proteus (mirabilis) (morganii) as the cause of diseases classified elsewhere; L85.3 Xerosis cutis; L29.9 Pruritus, unspecified; I10 Essential (primary) hypertension
CPT/HCPCS: 71010; 76705; 76937; 80048; 80053; 80074; 80076; 80307; 81001; 82103; 82105; 82390; 82550; 82728; 83036; 83520; 83540; 83550; 83605; 83735; 84100; 84439; 84443; 85025; 85610; 85730; 86038; 86255; 86403; 87040; 87070; 87077; 87086; 87147; 87186; 87205; 99285; J0696; J0712; J0878; J1450; J1642; J1650; J1885; J2270; J2405; J2543; J2997; J7040